=== PATIENT | male | born 1960 | race Caucasian/White ===

== ENCOUNTER 2017-05-08 10:36 | Inpatient (IN) | payer SELFPAY ==
[~2017-05-08] VITALS: Ht 182.9 cm; Wt 68.2 kg
[2017-05-08] VITALS (16 sets, daily range): BP systolic 88–182; BP diastolic 56–96; PULSE 84–98; RESP 16–28; TEMP 97–98.1; O2SAT 94–99
[2017-05-08] MEDS ORDERED: SODIUM CHLOR 0.9% 1000 ML INJ 1,000 ML IV ONE ×2 (10:43→12:00)
[2017-05-08] MEDS ORDERED: SODIUM CHLORIDE 0.9% FLUSH 10 ML FLUSH IVF PRN (10:45)
[2017-05-08 10:51] LABS: BLOOD GAS VENOUS BASE EXCESS -4.1 mmol/L (-2-2); BLOOD GAS VENOUS HCO3 18 mmol/L (22-26); BLOOD GAS VENOUS O2 CONTENT 14.6 Vol % (9.0-17.0); BLOOD GAS VENOUS O2 HGB SAT 89 % (70-76); BLOOD GAS VENOUS PCO2 22 mmHg (44-48); BLOOD GAS VENOUS PO2 54 mmHg (35-40); BLOOD GAS VENOUS pH 7.54 (7.360-7.400); CRITICAL VALUE YES; FIO2 21 %; TEMP CORR TO 98.6
[2017-05-08 10:52] LABS: DRAW SITE IV; STAT YES
[2017-05-08 11:01] LABS: AUTOMATED NEUTROPHIL # 19.6 TH/MM3 (1.8-7.7); BASOPHIL # 0.1 TH/MM3 (0-0.2); BASOPHIL % 0.3 % (0.0-2.0); HEMATOCRIT 40.9 % (39.0-51.0); HEMO FLAGS DIFF FINAL; LYMPH % 3.6 % (9.0-44.0); LYMPHOCYTE # 0.8 TH/MM3 (1.0-4.8); MEAN CELL VOLUME 93.9 FL (80.0-100.0); MEAN CORPUSCULAR HEMOGLOBIN 28.1 PG (27.0-34.0); MONO % 5.5 % (0.0-8.0); NEUT % 90.6 % (16.0-70.0); PLATELET COUNT 461 TH/MM3 (150-450); RED BLOOD COUNT 4.35 MIL/MM3 (4.50-5.90); RED CELL DISTRIBUTION WIDTH 13.6 % (11.6-17.2); WHITE BLOOD COUNT 21.6 TH/MM3 (4.0-11.0)
[2017-05-08 11:11] LABS: BLOOD, URINE NEG (NEG); COMMENT (UR) CULTURE INDICATED; CULTURE IF INDICATED CULTURE INDICATED; GLUCOSE,URINE 1000 mg/dL (NEG); KETONE, URINE NEG (NEG); NITRITE,URINE NEG (NEG); PH, URINE 5.5 (5.0-8.5); SQUAMOUS EPITHELIAL CELL URINE <1 /hpf (0-5)
[2017-05-08 11:12] LABS: URINE COLOR STRAW (YELLW/STRAW)
[2017-05-08] MEDS ORDERED: INSULIN HUMAN REGULAR 1,000 UNITS/10 ML VIAL SQ ONE (11:15)
[2017-05-08] MEDS ORDERED: PIPERACIL-TAZO 4.5 GM PREMIX 100 ML IV ONE (11:15)
[2017-05-08] MEDS ORDERED: VANCOMYCIN INJ 1,000 MG in SODIUM CHLOR 0.9% 250 ML INJ 250 ML IV ONE (11:15)
[2017-05-08] MEDS ORDERED: METF850T PO (12:00)
--- NOTE | 2017-05-08 12:00 | RADRPT ---
EXAM DATE/TIME: 05/08/2017 11:18 [place] COMPARISON: No previous studies available for comparison. INDICATIONS : Pain, redness and open sore right posterior lateral foot MEDICAL HISTORY : Diabetes mellitus type II. SURGICAL HISTORY : None. ENCOUNTER: Initial ACUITY: 3 days PAIN SCORE: 8/10 LOCATION: Right Foot FINDINGS: Two view examination of the right foot demonstrates no dislocation, or fracture. The calcaneus is in tact. Bony mineralization is normal. CONCLUSION: 1. Soft tissue swelling lateral foot near the fifth MTP. No acute bony abnormality. No radiopaque for eign body. Francisco Grider MD on May 08, 2017 at 11:57 Board Certified Radiologist. This report was verified electronically.
[2017-05-08 12:04] LABS: ALKALINE PHOSPHATASE 161 U/L (45-117); ALT (GPT) 17 U/L (12-78); ANION GAP 18 MEQ/L (5-15); AST (GOT) 6 U/L (15-37); BETA-HYDROXYBUTYRATE 1.26 MMOL/L (0.00-0.39); BICARBONATE 18.6 MEQ/L (21.0-32.0); BLOOD UREA NITROGEN 40 MG/DL (7-18); CHLORIDE 78 MEQ/L (98-107); GLOMERULAR FILTRATION RATE 28 ML/MIN (>89); MAGNESIUM 2.4 MG/DL (1.5-2.5); POTASSIUM 4.3 MEQ/L (3.5-5.1); TOTAL BILIRUBIN ADULT 0.3 MG/DL (0.2-1.0)
[2017-05-08 12:05] LABS: SODIUM (NA) 115 MEQ/L (136-145)
--- NOTE | 2017-05-08 12:29 | PD ---
HPI Chief Complaint: Diabetic Time Seen by Provider: 10:40 Travel History International Travel<30 days: No Contact w/Intl Traveler<30days: No Traveled to known affect area: No History of Present Illness HPI 56-year-old male came to the emergency room with history of altered mental status. The found him confused and called EMS. Patient has history of diabetes and has been noncompliant with his medications. Medics arrived and checked his sugar their meter read more than 500 since its the maximum read. Patient was talking but did not make much sense. He has a right foot infection that as per the paramedics has been there for few weeks. He was hypertensive when he first arrived. Patient was given 500 ML's of normal saline on route by EMS. Patient was hypertensive upon arrival. He is not a reliable historian at this point. History was mostly obtained by EMS. [facility] Past Medical History Narrative Medical List of his past medical, surgical, social and family history is reviewed from the nursing note. Medical History: Unable to Obtain Diabetes: Yes Patient Takes Glucophage: Yes Diminished Hearing: No Kidney Stones: Yes Past Surgical History Surgical History: Unable to Obtain Social History Alcohol Use: No Tobacco Use: Yes Substance Use: No Allergies-Medications (Allergen,Severity, Reaction): Coded Allergies: No Known Allergies (Unverified , 05/08/17) Comments No known drug allergies. Reported Meds & Prescriptions Reported Meds & Active Scripts Active Reported Metformin (Metformin HCl) 850 Mg Tab 850 Mg PO BIDPC With meals Narrative Medication List of his home medications reviewed from the nursing note. Review of Systems Except as stated in HPI: all other systems reviewed are Neg Physical Exam Narrative GENERAL: Confused, maintaining his airway, mild distress SKIN: Focused skin assessment warm/dry. Right foot dorsally on the lateral aspect is erythematous with a couple skin disruptions. The redness measures 5 x 7 cm. No discharge. There is no obvious deep ulceration. No crepitus HEAD: Atraumatic. Normocephalic. EYES: Pupils equal and round. No scleral icterus. No injection or drainage. ENT: No nasal bleeding or discharge. Mucous membranes pink and moist. NECK: Trachea midline. No JVD. CARDIOVASCULAR: Regular rate and rhythm. No murmur appreciated. RESPIRATORY: No accessory muscle use. Clear to auscultation. Breath sounds equal bilaterally. GASTROINTESTINAL: Abdomen soft, non-tender, nondistended. Hepatic and splenic margins not palpable. MUSCULOSKELETAL: No obvious deformities. No clubbing. No cyanosis. No edema. NEUROLOGICAL: GCS of 14, confused. No obvious cranial nerve deficits. Motor grossly within normal limits. Normal speech. PSYCHIATRIC: Appropriate mood and affect; insight and judgment normal. Data Data Last Documented VS Vital Signs Date Time Temp Pulse Resp B/P (MAP) Pulse Ox O2 Delivery O2 Flow Rate FiO2 05/08/17 11:35 85 24 169/73 (105) 97 Room Air 05/08/17 10:37 97.0 Orders Orders Complete Blood Count With Diff (05/08/17 10:43) Comprehensive Metabolic Panel (05/08/17 10:43) Magnesium (Mg) (05/08/17 10:43) Beta Hydroxybutyrate (Acetone) (05/08/17 10:43) Lactic Acid (05/08/17 10:43) Urinalysis - C+S If Indicated (05/08/17 10:43) Blood Culture (05/08/17 10:43) Blood Gas Venous (Vbg) (05/08/17 10:43) Blood Glucose (05/08/17 10:43) Blood Glucose (05/08/17 11:43) Ecg Monitoring (05/08/17 10:43) Iv Access Insert/Monitor (05/08/17 10:43) Oximetry (05/08/17 10:43) NPO (05/08/17 10:43) Sodium Chlor 0.9% 1000 Ml Inj (Ns 1000 M (05/08/17 10:43) Sodium Chloride 0.9% Flush (Ns Flush) (05/08/17 10:45) Troponin I (05/08/17 10:43) Urine Culture (05/08/17 10:50) Insulin Human Regular Inj (Novolin R Inj (05/08/17 11:15) Piperacil-Tazo 4.5 Gm Premix (Zosyn 4.5 (05/08/17 11:15) Vancomycin Inj (Vancomycin Inj) (05/08/17 11:15) Foot, Limited (2vws) (05/08/17 ) Sodium Chlor 0.9% 1000 Ml Inj (Ns 1000 M (05/08/17 12:00) Ct Brain W/O Iv Contrast(Rout) (05/08/17 ) Urinary Catheter Insert/Apply (05/08/17 12:11) Admit Order (Ed Use Only) (05/08/17 12:11) Labs Laboratory Tests Test 05/08/17 10:41 05/08/17 10:50 Blood Gas Puncture Site IV Blood Gas Patient Temperature 98.6 Venous Blood pH 7.54 Venous Blood Partial Pressure CO2 22 mmHg Venous Blood Partial Pressure O2 54 mmHg Venous Blood HCO3 18 mmol/L Venous Blood Oxygen Saturation 89 % Venous Blood Oxygen Content 14.6 Vol % Venous Blood Base Excess -4.1 mmol/L Blood Gas Inspired Oxygen 21 % White Blood Count 21.6 TH/MM3 Red Blood Count 4.35 MIL/MM3 Hemoglobin 12.3 GM/DL Hematocrit 40.9 % Mean Corpuscular Volume 93.9 FL Mean Corpuscular Hemoglobin 28.1 PG Mean Corpuscular Hemoglobin Concent 30.0 % Red Cell Distribution Width 13.6 % Platelet Count 461 TH/MM3 Mean Platelet Volume 8.1 FL Neutrophils (%) (Auto) 90.6 % Lymphocytes (%) (Auto) 3.6 % Monocytes (%) (Auto) 5.5 % Eosinophils (%) (Auto) 0.0 % Basophils (%) (Auto) 0.3 % Neutrophils # (Auto) 19.6 TH/MM3 Lymphocytes # (Auto) 0.8 TH/MM3 Monocytes # (Auto) 1.2 TH/MM3 Eosinophils # (Auto) 0.0 TH/MM3 Basophils # (Auto) 0.1 TH/MM3 CBC Comment DIFF FINAL Differential Comment Urine Color STRAW Urine Turbidity CLEAR Urine pH 5.5 Urine Specific [place] 1.025 Urine Protein NEG mg/dL Urine Glucose (UA) 1000 mg/dL Urine Ketones NEG mg/dL Urine Occult Blood NEG Urine Nitrite NEG Urine Bilirubin NEG Urine Urobilinogen LESS THAN 2.0 MG/DL Urine Leukocyte Esterase NEG Urine RBC 1 /hpf Urine WBC 10 /hpf Urine Squamous Epithelial Cells <1 /hpf Microscopic Urinalysis Comment CULTURE INDICATED Blood Urea Nitrogen 40 MG/DL Creatinine 2.38 MG/DL Random Glucose 1955 MG/DL Total Protein 8.3 GM/DL Albumin 2.8 GM/DL Calcium Level 9.6 MG/DL Magnesium Level 2.4 MG/DL Alkaline Phosphatase 161 U/L Aspartate Amino Transf (AST/SGOT) 6 U/L Alanine Aminotransferase (ALT/SGPT) 17 U/L Total Bilirubin 0.3 MG/DL Sodium Level 115 MEQ/L Potassium Level 4.3 MEQ/L Chloride Level 78 MEQ/L Carbon Dioxide Level 18.6 MEQ/L Anion Gap 18 MEQ/L Estimat Glomerular Filtration Rate 28 ML/MIN Lactic Acid Level 6.8 mmol/L Troponin I LESS THAN 0.02 NG/ML B-Hydroxybutyrate 1.26 MMOL/L MDM Medical Decision Making Medical Screen Exam Complete: Yes Emergency Medical Condition: Yes Medical Record Reviewed: Yes Differential Diagnosis Cellulitis, DKA, hyperglycemia Narrative Course 12:24 PM blood test results are back. Patient has astronomically high glucose level in blood. I initially had given him 10 units of insulin subcutaneous. I will order 10 units IV. Patient is getting total of 3 L of IV fluid bolus. I' ve ordered a CAT scan of his head as well. White count was 21,000 based on which I have started him on IV Zosyn and vancomycin. This patient should be in the ICU given these abnormal test results. I spoke with Dr. Ortiz who has accepted this patient in the unit. His came in and I discussed this with her. She says that patient is extremely difficult to manage at home. He is very noncompliant with his diabetes or the foot wound and infection. She thinks he is depressed and maybe trying to kill himself. All this has been mentioned to the fire technology instructor as well. Corrected sodium is 144 mEq. Critical Care Narrative Aggregate critical care time was 60 minutes. Time to perform other separately billable procedures was not included in the critical care time. My time did not include minutes spent treating any other patients simultaneously or on activities that did not directly contribute to the patient's treatment. The services I provided to this patient were to treat and/or prevent clinically significant deterioration that could result in: Hyperglycemia, HONK, sepsis, sepsis protocol I provided critical care services requiring my management, as noted below: Chart data review, documentation time, medication orders and management, vital sign assessments/reviewing monitor data, ordering and reviewing lab tests, ordering and interpreting/reviewing x-rays and diagnostic studies, care of the patient and discussion of the patient with the admitting physicians. Procedures EKG Prior to Arrival: No Physician Communication Physician Communication Dr. Ortiz Diagnosis Primary Impression: Hyperglycemic hyperosmolar nonketotic coma Additional Impressions: Hyponatremia Altered mental status Qualified Codes: R41.0 - Disorientation, unspecified Sepsis Qualified Codes: A41.9 - Sepsis, unspecified organism Renal failure Qualified Codes: N19 - Unspecified kidney failure Admitting Information Admitting Physician Requests: Xavier Garcia MD May 08, 2017 12:29
[2017-05-08] MEDS ORDERED: INSULIN HUMAN REGULAR 1,000 UNITS/10 ML VIAL IV PUSH ONE (12:30)
[2017-05-08] MEDS ORDERED: MISCELLANEOUS NURSING INFORMATION XX SCH ×2 (12:45→13:00)
[2017-05-08] MEDS ORDERED: SODIUM CHLORIDE 0.9% FLUSH 10 ML FLUSH IV FLUSH PRN (12:45)
[2017-05-08] MEDS ORDERED: Vancomycin Consult Pharmacy 1 EA OTHER SCH (12:45)
[2017-05-08] MEDS ORDERED: CHLORHEXIDINE GLUCONATE 2 % 1 PACK (2 CLOTHS) TOP PRN ×2 (12:45→13:00)
[2017-05-08] MEDS: SODIUM CHLOR 0.9% 1000 ML INJ 1,000 ML IV SCH ×2 (12:48→13:48)
[2017-05-08] MEDS ORDERED: PIPERACIL-TAZO 2.25 GM PREMIX 50 ML IV SCH (13:00)
[2017-05-08] MEDS ORDERED: POTASSIUM CHLOR 20 MEQ PREMIX 100 ML IV PRN ×5 (13:00→21:45)
[2017-05-08] MEDS ORDERED: SODIUM CHLOR 0.45% 1000 ML INJ 1,000 ML IV ONE (13:00)
[2017-05-08] MEDS ORDERED: SODIUM BICARBONATE 8.4% SOLN 50 MEQ/50 ML VIAL IV PRN ×2 (13:00)
[2017-05-08] MEDS ORDERED: SODIUM PHOSPHATE INJ 15 MMOL in SODIUM CHLORIDE 0.9% INJ 100 ML IV PRN (13:00)
--- NOTE | 2017-05-08 13:01 | HHI.HP ---
[facility] Service Critical Care Medicine Primary Care Physician No Primary Care Physician Admission Diagnosis HONK, sepsis Diagnosis: (1) Thrombocytosis Diagnosis: Principal (2) Normocytic anemia Diagnosis: Principal (3) Leukocytosis Diagnosis: Principal (4) Diabetic foot ulcer associated with type 2 diabetes mellitus, with fat layer exposed Diagnosis: Principal (5) Acute kidney injury Diagnosis: Principal (6) Hyperosmolar non-ketotic state in patient with type 2 diabetes mellitus Diagnosis: Principal (7) Dehydration with hyponatremia Diagnosis: Principal (8) Toxic metabolic encephalopathy Diagnosis: Principal (9) Septic shock Diagnosis: Principal Chief Complaint: altered mental status/high blood sugar Travel History International Travel<30 Days: No Contact w/Intl Traveler <30 Da: No Traveled to Known Affected Are: No Sepsis Criteria SIRS Criteria (2 or more): Heart rate over 90, RR > 20 or PaCO2 < 32 Sepsis Criteria (SIRS+source): Infect source susp/known Severe Sepsis (+one): Lactate >2 Septic Shock Criteria: Lactic acid >=4 Criteria Outcome: Meets septic shock criteria History of Present Illness 56-year-old male . Date of admission 05/08/2017. Past medical history diabetes mellitus with right lower extremity foot wound, ongoing tobaccoism, prior EtOH use and recurrent nephrolithiasis. This patient presents to the [facility] emergency room with subacute onset of altered mental status. The states for the past month he has been somewhat depressed and likely not taking his medications. For the past 2 days, she's become more authority. She gave him some Compazine for nausea without relief. Today, she called EMS. Initial blood sugar was greater than 500. Verified 1955 per laboratory. Patient has some 15 months/chronic history around 150, continue current for leukocytosis of 21,000. Patient has a diabetic foot ulceration on the right lower extremity involving the lateral to the fifth digit which he has been self treating by peeling skin. He was hypertensive when he first arrived. Patient was given 500 ML's of normal saline on route by EMS. Patient was hypertensive upon arrival. He is not a reliable historian at this point. History is obtained from at bedside Kristine Jolly Review of Systems ROS Limitations: Altered Mental Status Past Family Social History Allergies: Coded Allergies: No Known Allergies (Unverified , 05/08/17) Past Medical History Diabetes mellitus type 2 Tobaccoism History of nephrolithiasis Past Surgical History History of lithotripsy History of kidney stone extraction Reported Medications Metformin 850 mg by mouth twice a day Active Ordered Medications Reviewed in EMR Family History Positive for diabetes. Social History Quit alcohol 17 years ago. Positive tobacco one half pack per day. No IV drug use Physical Exam Vital Signs Vital Signs Date Time Temp Pulse Resp B/P (MAP) Pulse Ox O2 Delivery O2 Flow Rate FiO2 05/08/17 11:35 85 24 169/73 (105) 97 Room Air 05/08/17 10:46 98 Room Air 05/08/17 10:45 93 30 98 Room Air 05/08/17 10:37 97.0 98 26 182/96 (124) 99 Physical Exam GENERAL: 48-year-old male, critically ill currently resting in bed SKIN: Warm and dry. See musculoskeletal for right diabetic foot wound HEAD: Atraumatic. Normocephalic. EYES: Pupils equal and round about 3 mm bilaterally and reactive. No scleral icterus. No injection or drainage. ENT: No nasal bleeding or discharge. Mucous membranes pink and moist. Very poor dentition no thrush NECK: Trachea midline. No JVD. CARDIOVASCULAR: Regular rate and rhythm. S1, S2. No S4. Without murmur RESPIRATORY: Clear to auscultation. Breath sounds equal bilaterally. GASTROINTESTINAL: Abdomen soft, non-tender, almost scaphoid. Hepatic and splenic margins not palpable. MUSCULOSKELETAL: Extremities without significant peripheral edema. Lateral plantar aspect of right foot with erythema. 3 x 3 cm diabetic foot near the fifth mtp without drainage NEUROLOGICAL: Awake and alert. No obvious cranial nerve deficits. Motor grossly within normal limits. Five out of 5 muscle strength in the arms and legs. Normal speech. Does follow commands Laboratory Laboratory Tests Test 05/08/17 10:41 05/08/17 10:50 Blood Gas Puncture Site IV Blood Gas Patient Temperature 98.6 Venous Blood pH 7.54 Venous Blood Partial Pressure CO2 22 Venous Blood Partial Pressure O2 54 Venous Blood HCO3 18 Venous Blood Oxygen Saturation 89 Venous Blood Oxygen Content 14.6 Venous Blood Base Excess -4.1 Blood Gas Inspired Oxygen 21 White Blood Count 21.6 Red Blood Count 4.35 Hemoglobin 12.3 Hematocrit 40.9 Mean Corpuscular Volume 93.9 Mean Corpuscular Hemoglobin 28.1 Mean Corpuscular Hemoglobin Concent 30.0 Red Cell Distribution Width 13.6 Platelet Count 461 Mean Platelet Volume 8.1 Neutrophils (%) (Auto) 90.6 Lymphocytes (%) (Auto) 3.6 Monocytes (%) (Auto) 5.5 Eosinophils (%) (Auto) 0.0 Basophils (%) (Auto) 0.3 Neutrophils # (Auto) 19.6 Lymphocytes # (Auto) 0.8 Monocytes # (Auto) 1.2 Eosinophils # (Auto) 0.0 Basophils # (Auto) 0.1 CBC Comment DIFF FINAL Differential Comment Urine Color STRAW Urine Turbidity CLEAR Urine pH 5.5 Urine Specific [employer] 1.025 Urine Protein NEG Urine Glucose (UA) 1000 Urine Ketones NEG Urine Occult Blood NEG Urine Nitrite NEG Urine Bilirubin NEG Urine Urobilinogen LESS THAN 2.0 Urine Leukocyte Esterase NEG Urine RBC 1 Urine WBC 10 Urine Squamous Epithelial Cells <1 Microscopic Urinalysis Comment CULTURE INDICATED Blood Urea Nitrogen 40 Creatinine 2.38 Random Glucose 1955 Total Protein 8.3 Albumin 2.8 Calcium Level 9.6 Magnesium Level 2.4 Alkaline Phosphatase 161 Aspartate Amino Transf (AST/SGOT) 6 Alanine Aminotransferase (ALT/SGPT) 17 Total Bilirubin 0.3 Sodium Level 115 Potassium Level 4.3 Chloride Level 78 Carbon Dioxide Level 18.6 Anion Gap 18 Estimat Glomerular Filtration Rate 28 Lactic Acid Level 6.8 Troponin I LESS THAN 0.02 B-Hydroxybutyrate 1.26 Date/Time Source Procedure Growth Status 05/08/17 11:15 Blood Peripheral Aerobic Blood Culture Pending Received 05/08/17 11:15 Blood Peripheral Anaerobic Blood Culture Pending Received 05/08/17 10:50 Urine Clean Catch Urine Culture Pending Received Result Diagram: 05/08/17 1050 05/08/17 1050 Imaging Last Impressions Foot X-Ray 05/08/17 0000 Signed Impressions: Service Date/Time: April 11:18 - CONCLUSION: 1. Soft tissue swelling lateral foot near the fifth MTP. No acute bony abnormality. No radiopaque foreign body. Francisco Grider MD Caprini VTE Risk Assessment Caprini VTE Risk Assessment: Mod/High Risk (score >= 2) Caprini Risk Assessment Model Point Value = 1 Point Value = 2 Point Value = 3 Point Value = 5 Age 41-60 Minor surgery BMI > 25 kg/m2 Swollen legs Varicose veins or History of unexplained or recurrent spontaneous Oral contraceptives or hormone replacement Sepsis (< 1 month) Serious lung disease, including pneumonia (< 1 month) Abnormal pulmonary function Acute myocardial infarction Congestive heart failure (< 1 month) History of inflammatory bowel disease Medical patient at bed rest Age 61-74 Arthroscopic surgery Major open surgery (> 45 min) Laparoscopic surgery (> 45 min) Malignancy Confined to bed (> 72 hours) Immobilizing plaster cast Central venous access Age >= 75 History of VTE Family history of VTE Factor V Leiden Prothrombin [id number] Lupus anticoagulant Anticardiolipin antibodies Elevated serum homocysteine Heparin-induced thrombocytopenia Other congenital or acquired thrombophilia Stroke (< 1 month) Elective arthroplasty Hip, pelvis, or leg fracture Acute spinal cord injury (< 1 month) Prophylaxis Regimen Total Risk Factor Score Risk Level Prophylaxis Regimen 0-1 Low Early ambulation 2 Moderate Order ONE of the following: *Sequential Compression Device (SCD) *Heparin 5000 units SQ BID 3-4 Higher Order ONE of the following medications: *Heparin 5000 units SQ TID *Enoxaparin/Lovenox 40 mg SQ daily (WT < 150 kg, CrCl > 30 mL/min) *Enoxaparin/Lovenox 30 mg SQ daily (WT < 150 kg, CrCl > 10-29 mL/min) *Enoxaparin/Lovenox 30 mg SQ BID (WT < 150 kg, CrCl > 30 mL/min) AND/OR *Sequential Compression Device (SCD) 5 or more Highest Order ONE of the following medications: *Heparin 5000 units SQ TID (Preferred with Epidurals) *Enoxaparin/Lovenox 40 mg SQ daily (WT < 150 kg, CrCl > 30 mL/min) *Enoxaparin/Lovenox 30 mg SQ daily (WT < 150 kg, CrCl > 10-29 mL/min) *Enoxaparin/Lovenox 30 mg SQ BID (WT < 150 kg, CrCl > 30 mL/min) AND *Sequential Compression Device (SCD) Assessment and Plan Assessment and Plan Neuro/Psych: Acute delirium/toxic metabolic encephalopathy secondary to hyperglycemia Acetaminophen for fever Hydrocodone/acetaminophen and morphine for pain management Soft restraints if indicated for delirium CV: Hypertension Lactic acidosis Currently on one half normal saline at 200 cc an hour As needed hydralazine and Nitropaste with systolic blood pressure greater than 170 Serial lactates every 6 hours until cleared Initial troponin negative. EKG pending Resp: Ongoing tobaccoism Nasal cannula to maintain saturations greater than or equal to 92% Incentive spirometry while awake Follow up on chest x-ray Nicotine cessation will be encouraged. Nicotine patch if indicated/requested GI: Nausea/vomiting On ondansetron 4 mg every 6 hours when necessary Liver function tests within normal limits. Lipase pending Currently nothing by mouth Famotidine 10 mg IV twice a day for GI prophylaxis Docusate sodium/senna 1 tablet twice a day for bowel regimen : No indication for [place] catheter Endo: Hyperosmolar non-ketotic state in a type II diabetic Diabetes mellitus type 2 Patient will be placed on insulin drip at 0.02 units per kilogram per hour. Goal is to lower blood sugar around 75-100 mg/dL every hour. Every hour glucose Check hemoglobin A1c/lipid panel. Renal: Acute kidney injury History of nephrolithiasis Serial BMPs. Likely secondary to dehydration. Avoid nephrotoxic drugs If creatinine continues to rise, further workup including urine electrolytes and eosinophils and renal ultrasound Heme: Leukocytosis Normocytic anemia Thrombocytopenia Monitor CBC daily. Follow trends ID: Placed on piperacillin/tazobactam and vancomycin for diabetic foot Infectious disease consult X-ray revealed soft tissue swelling of the right fifth MTP MSK: Right diabetic foot ulcer Podiatry consult for recommendations possible debridement once stable FEN: Pseudohyponatremia secondary to hyperglycemia Hypochloremia Replace electrolytes as clinically indicated. Access - Utilize peripheral IV. Central line if indicated Prophylaxis - GI - pantoprazole - DVT - SCD/heparin subcutaneous Critical Care: The total critical care time was 35 minutes. Time to perform other separately billable procedures was not included in the critical care time. Code Status Full code Discussed Condition With Kristine Jolly. ER physician. Care plan discussed and all questions answered. Problem Qualifiers (1) Leukocytosis: Qualified Codes: D72.829 - Elevated white blood cell count, unspecified (2) Diabetic foot ulcer associated with type 2 diabetes mellitus, with fat layer exposed: Qualified Codes: E11.621 - Type 2 diabetes mellitus with foot ulcer; L97.512 - Non-pressure chronic ulcer of other part of right foot with fat layer exposed Isaac Ortiz MD May 08, 2017 13:01
[2017-05-08] MEDS ORDERED: hydrALAZINE HCL 20 MG/ML VIAL IV PUSH PRN (13:15)
[2017-05-08] MEDS ORDERED: INSULIN REGULAR (IV INFUSION) 100 UNITS in SODIUM CHLORIDE 0.9% INJ 99 ML IV SCH (14:00)
[2017-05-08] MEDS ORDERED: RESP: ALBUTEROL 2.5 MG/3 ML NEB (PRN) INH (14:00)
[2017-05-08] MEDS ORDERED: NITROGLYCERIN 2% OINT 1 GM PACKET TOPICAL PRN (14:00)
[2017-05-08] MEDS ORDERED: BISACODYL 10 MG SUPP RECTAL PRN (14:00)
[2017-05-08] MEDS ORDERED: LACTULOSE SYRUP 20 GM/30 ML CUP PO PRN (14:00)
--- NOTE | 2017-05-08 14:23 | PD.ID.CON ---
History of Present Illness Service ID Consult Requested By Dr Ortiz Reason for Consult R foot DFI Primary Care Physician No Primary Care Physician Diagnoses: History of Present Illness Pt is a very poor historian, all history fobtained from spouse who was @ b/s A 56 yo diabetic male, with long standing diabetes and non complinace for many yras: no f/u since 2007, intermittetnly takes his 's metformin ;( barriers to compliance: lack of insurance) presented to the hospital after the call 911 because his sugars 'were out of control' In fact his glucose on presentation was 1955 Pt was started on insulin gtt Pt also has a long standing (weeks) R platar ulcer @ 5 MT head area with worsening swelling and redness lately - in the last few days Pt lost tremendous amount of weight and is very withdrawn and appears depressed No fever on presentation but WBC of 21 K + ketones positive Lactic acidemis of 6.8 on presentation, improved with fluids and insulin gtt to 1.9 rapidly Review of Systems ROS Limitations: Uncooperative, Poor Historian Past Family Social History Allergies: Coded Allergies: No Known Allergies (Unverified , 05/08/17) Past Medical History Diabetes mellitus type 2, long standing non complicance Tobaccoism History of nephrolithiasis Past Surgical History History of lithotripsy History of kidney stone extraction Active Ordered Medications Medications where reviewed in EMR Antibiotics Include: madison olivares Family History Positive for diabetes. Social History Quit alcohol 17 years ago. Positive tobacco one half pack per day. No IV drug use , lives with his Physical Exam Vital Signs Vital Signs Date Time Temp Pulse Resp B/P (MAP) Pulse Ox O2 Delivery O2 Flow Rate FiO2 05/08/17 13:06 87 18 161/82 (108) 96 Room Air 05/08/17 12:35 97 28 162/79 (106) 99 Room Air 05/08/17 11:35 85 24 169/73 (105) 97 Room Air 05/08/17 10:46 98 Room Air 05/08/17 10:45 93 30 98 Room Air 05/08/17 10:37 97.0 98 26 182/96 (124) 99 Physical Exam CONSTITUTIONAL/GENERAL: This is a thin ill appearing middle aged patient, in no apparent distress. TUBES/LINES/DRAINS: SKIN: No jaundice, rashes, or lesions. . Skin temperature appropriate. Not diaphoretic. HEAD: Atraumatic. Normocephalic. EYES: Pupils equal and round and reactive. Extraocular motions intact. No scleral icterus. No injection or drainage. Fundi not examined. ENT: Hearing grossly normal. Nose without bleeding or purulent drainage. Oral mucosae dry without visible erythema, exudates, masses, or lesions. Poor dentition NECK: Trachea midline. Supple, nontender. CARDIOVASCULAR: Regular rate and rhythm without murmurs, gallops, or rubs. No JVD. Peripheral pulses symmetric. Good pedal pulses perifery appears well perfused RESPIRATORY/CHEST: Symmetric, unlabored respirations. Clear to auscultation. Breath sounds equal bilaterally. No wheezes, rales, or rhonchi. GASTROINTESTINAL: Abdomen soft, non-tender, nondistended. No hepato-splenomegaly , or palpable masses. No guarding. Bowel sounds present. GENITOURINARY: Without palpable bladder distension. Knox catheter in place. MUSCULOSKELETAL: Extremities without clubbing, cyanosis, or edema.\No mottling or clubbing. R foot with prominent edema, illl defined erythema over 5 Th MT head a nd spreding along lateral aspect of the foot Plantar ulcer with eschar at 5 TH MT head projection LYMPHATICS: No palpable cervical or supraclavicular adenopathy. + R sided inguinal lymphadenopathy NEUROLOGICAL:Lethargic, but arousable Motor and sensory grossly within normal limits. Follows commands. Clear speech. Moves all extremities. PSYCHIATRIC: withdrawn; irritable Laboratory Laboratory Tests Test 05/08/17 10:41 05/08/17 10:50 Blood Gas Puncture Site IV Blood Gas Patient Temperature 98.6 Venous Blood pH 7.54 Venous Blood Partial Pressure CO2 22 Venous Blood Partial Pressure O2 54 Venous Blood HCO3 18 Venous Blood Oxygen Saturation 89 Venous Blood Oxygen Content 14.6 Venous Blood Base Excess -4.1 Blood Gas Inspired Oxygen 21 White Blood Count 21.6 Red Blood Count 4.35 Hemoglobin 12.3 Hematocrit 40.9 Mean Corpuscular Volume 93.9 Mean Corpuscular Hemoglobin 28.1 Mean Corpuscular Hemoglobin Concent 30.0 Red Cell Distribution Width 13.6 Platelet Count 461 Mean Platelet Volume 8.1 Neutrophils (%) (Auto) 90.6 Lymphocytes (%) (Auto) 3.6 Monocytes (%) (Auto) 5.5 Eosinophils (%) (Auto) 0.0 Basophils (%) (Auto) 0.3 Neutrophils # (Auto) 19.6 Lymphocytes # (Auto) 0.8 Monocytes # (Auto) 1.2 Eosinophils # (Auto) 0.0 Basophils # (Auto) 0.1 CBC Comment DIFF FINAL Differential Comment Urine Color STRAW Urine Turbidity CLEAR Urine pH 5.5 Urine Specific [place] 1.025 Urine Protein NEG Urine Glucose (UA) 1000 Urine Ketones NEG Urine Occult Blood NEG Urine Nitrite NEG Urine Bilirubin NEG Urine Urobilinogen LESS THAN 2.0 Urine Leukocyte Esterase NEG Urine RBC 1 Urine WBC 10 Urine Squamous Epithelial Cells <1 Microscopic Urinalysis Comment CULTURE INDICATED Blood Urea Nitrogen 40 Creatinine 2.38 Random Glucose 1957 Total Protein 8.3 Albumin 2.8 Calcium Level 9.6 Magnesium Level 2.4 Alkaline Phosphatase 161 Aspartate Amino Transf (AST/SGOT) 6 Alanine Aminotransferase (ALT/SGPT) 17 Total Bilirubin 0.3 Sodium Level 115 Potassium Level 4.3 Chloride Level 78 Carbon Dioxide Level 18.6 Anion Gap 18 Estimat Glomerular Filtration Rate 28 Lactic Acid Level 6.8 Troponin I LESS THAN 0.02 B-Hydroxybutyrate 1.26 Date/Time Source Procedure Growth Status 05/08/17 11:15 Blood Peripheral Aerobic Blood Culture Pending Received 05/08/17 11:15 Blood Peripheral Anaerobic Blood Culture Pending Received 05/08/17 10:50 Urine Clean Catch Urine Culture Pending Received Result Diagram: 05/08/17 1050 05/08/17 1050 Imaging Last Impressions Foot X-Ray 05/08/17 0000 Signed Impressions: Service Date/Time: April 11:18 - CONCLUSION: 1. Soft tissue swelling lateral foot near the fifth MTP. No acute bony abnormality. No radiopaque foreign body. Francisco Grider MD Assessment and Plan Assessment and Plan Extreme hyperglycemia and DKA -poorly controlled DM R foot DFI, 5th MT head - R foot MRI - podiatry consult - fu clx - cont broad spectrum abx for now Marla Pritchard MD May 08, 2017 14:23
--- NOTE | 2017-05-08 14:31 | RADRPT ---
EXAM DATE/TIME: 05/08/2017 14:16 [facility] COMPARISON: No previous studies available for comparison. INDICATIONS : Confusion with alerted mental status. RADIATION DOSE: 34.18 CTDIvol (mGy) MEDICAL HISTORY : Diabetes mellitus type 2. Renal calculi. SURGICAL HISTORY : None. ENCOUNTER: Initial ACUITY: 1 day PAIN SCALE: 5/10 LOCATION: Bilateral cranial TECHNIQUE: Multiple contiguous axial images were obtained of the head. Using automated exposure control and adj ustment of the mA and/or kV according to patient size, radiation dose was kept as low as reasonably a chievable to obtain optimal diagnostic quality images. DICOM format image data is available electro nically for review and comparison. FINDINGS: CEREBRUM: The ventricles are normal for age. No evidence of midline shift, mass lesion, hemorrhage or acute in farction. No extra-axial fluid collections are seen. POSTERIOR FOSSA: The cerebellum and brainstem are intact. The 4th ventricle is midline. The cerebellopontine angle i s unremarkable. EXTRACRANIAL: The visualized portion of the orbits is intact. SKULL: The calvaria is intact. No evidence of skull fracture. CONCLUSION: 1. No acute intracranial abnormality is identified. Raghavendra Lim MD on May 08, 2017 at 14:27 Board Certified Radiologist. This report was verified electronically.
[2017-05-08] MEDS ORDERED: VANCOMYCIN 500 MG/NS 100 ML IV ONE ×2 (15:00)
[2017-05-08] MEDS: PIPERACIL-TAZO 2.25 GM PREMIX 50 ML IV SCH (17:00)
[2017-05-08] MEDS: DEXT 5%-NACL 0.9% 1000 ML INJ 1,000 ML IV SCH ×2 (17:48→22:48)
[2017-05-08 19:54] LABS: MAGNESIUM 2.4 MG/DL (1.5-2.5); POTASSIUM 3.3 MEQ/L (3.5-5.1)
[2017-05-08] MEDS: DOCUSATE SODIUM 50 MG/SENNA 8.6 MG TAB PO SCH (21:00)
[2017-05-08] MEDS ORDERED: SENNOSIDES 8.6 MG TAB PO PRN (21:00)
[2017-05-08] MEDS ORDERED: FAMOTIDINE 20 MG/2 ML VIAL IV PUSH SCH (21:00)
--- NOTE | 2017-05-08 21:05 | MB ---
cc: LORRI ACEVES DPM DATE OF CONSULTATION 05/08/17 CHIEF COMPLAINT Right foot ulceration HISTORY OF PRESENT ILLNESS Mr. Braxton is a 56-year-old male patient who was admitted with a blood sugar of 1957. He states that he has had the wound on his right foot for over a year but could not give me much more information. He denies any pain at this time. The patient is very shaky and speech is very erratic but he is pleasant. PAST MEDICAL HISTORY 1. Diabetes mellitus 2. History of nephrolithiasis PAST SURGICAL HISTORY Lithotripsy and kidney stone extraction MEDICATIONS Please see list. ALLERGIES NO KNOWN DRUG ALLERGIES. SOCIAL HISTORY The patient quit drinking 17 years ago, smokes half a pack of cigarettes a day. Denies any IV drug abuse. Lives at home with his . VITAL SIGNS: Temperature is 98.0 which is also T-max, respiratory rate is 16, blood pressure 130/74, pulse ox 95% O2 at room air. LABORATORY DATA White count is 21.6, hemoglobin 12.3, hematocrit 40.9, platelets 461. Sodium 115, potassium 4.3, chloride 78, carbon dioxide 18.6, BUN 40, creatinine 2.38, random glucose 990. Blood cultures pending. Urine cultures pending. IMAGING STUDIES X-ray was negative for any gas in the soft tissue or signs of cortical erosion at the wound site. PHYSICAL EXAMINATION On physical exam, the patient has bilateral palpable PT and DP pulses. Cap fill time of less than 3 seconds. Gross sensation is diminished but somewhat intact. The left foot is unremarkable. The right foot has heavy callusing to the right sub met five with a small fluctuant area on the dorsal fifth metatarsal. There is some erythema surrounding these two areas with no streaking. No drainage and no pain. ASSESSMENT/PLAN 1. Cellulitis right foot with likely underlying ulceration. The patient would benefit from a bedside debridement. However, at this time he is very shaky and very unstable. I will try to reevaluate in a day or two once his health has improved and hopefully be able to address it at bedside. If not once the patient is downgraded from the ICU, he can be treated in the operating room. The wound is stable at this time. 2. No dressing needed at this time. 3. IV antibiotics per Infectious Disease. 4. We will monitor the patient closely while in-house Thank you for this consultation. Lorri SONI /6:18 PM /8:47 PM
[2017-05-08] MEDS: SODIUM CHLORIDE 0.9% FLUSH 10 ML FLUSH IV FLUSH SCH (21:39)
[2017-05-08] MEDS: HEPARIN SODIUM - SQ 10,000 UNITS/ML VIAL SQ SCH (21:40)
[2017-05-08] MEDS ORDERED: POTASSIUM PHOSPHATE INJ 30 MMOL in SODIUM CHLOR 0.9% 250 ML INJ 250 ML IV PRN (21:45)
[2017-05-08] MEDS ORDERED: MAGNESIUM OXIDE 400 MG TAB PO PRN (21:45)
[2017-05-08] MEDS ORDERED: SODIUM PHOSPHATE INJ 30 MMOL in SODIUM CHLOR 0.9% 250 ML INJ 240 ML IV PRN (21:45)
[2017-05-08] MEDS ORDERED: POTASSIUM PHOSPHATE MONOBASIC 500 MG TAB PO/TUBE PRN (21:45)
[2017-05-08] MEDS ORDERED: MAGNESIUM SULFATE INJ 4 GM in SODIUM CHLORIDE 0.9% INJ 92 ML IV PRN (21:45)
[2017-05-08] MEDS ORDERED: POTASSIUM CHLOR 40 MEQ PREMIX 100 ML IV PRN ×2 (21:45)
[2017-05-08] MEDS ORDERED: MAGNESIUM SULFATE INJ 2 GM in SODIUM CHLORIDE 0.9% INJ 96 ML IV PRN (21:45)
[2017-05-08] MEDS ORDERED: POTASSIUM PHOSPHATE MONOBASIC 500 MG TAB PO PRN (21:45)
[2017-05-08] MEDS: POTASSIUM CHLOR 20 MEQ PREMIX 100 ML IV PRN (22:47)
[2017-05-09] VITALS (14 sets, daily range): BP systolic 110–135; BP diastolic 64–75; PULSE 88–98; RESP 15–26; TEMP 98.2–100.4; O2SAT 95–100
[2017-05-09] MEDS: PIPERACIL-TAZO 2.25 GM PREMIX 50 ML IV SCH ×5 (00:02→23:42)
[2017-05-09] MEDS: POTASSIUM CHLOR 20 MEQ PREMIX 100 ML IV PRN (01:01)
[2017-05-09] MEDS: DEXT 5%-NACL 0.9% 1000 ML INJ 1,000 ML IV SCH ×2 (03:48→08:19)
[2017-05-09] MEDS: CHLORHEXIDINE GLUCONATE 2 % 1 PACK (2 CLOTHS) TOP SCH (04:00)
[2017-05-09] MEDS ORDERED: CHLORHEXIDINE GLUCONATE 2 % 1 PACK (2 CLOTHS) TOP SCH (04:00)
[2017-05-09 06:02] LABS: ANION GAP 11 MEQ/L (5-15); BETA-HYDROXYBUTYRATE 2.96 MMOL/L (0.00-0.39); BICARBONATE 23.3 MEQ/L (21.0-32.0); BLOOD UREA NITROGEN 27 MG/DL (7-18); CHLORIDE 114 MEQ/L (98-107); GLOMERULAR FILTRATION RATE 59 ML/MIN (>89); HDL CHOLESTEROL 34.8 MG/DL (40.0-60.0); LDL CHOLESTEROL 59 MG/DL (0-99); MAGNESIUM 2.6 MG/DL (1.5-2.5); POTASSIUM 5.6 MEQ/L (3.5-5.1); SODIUM (NA) 148 MEQ/L (136-145)
[2017-05-09 06:21] LABS: MEAN CORPUSCULAR HEMOGLOBIN 28.1 PG (27.0-34.0); MEAN CORPUSCULAR HGB CONC 34.2 % (32.0-36.0); PLATELET COUNT 436 TH/MM3 (150-450); RED BLOOD COUNT 4.14 MIL/MM3 (4.50-5.90); RED CELL DISTRIBUTION WIDTH 12.8 % (11.6-17.2); REVIEW FLAG FINAL
[2017-05-09 06:38] LABS: BICARBONATE 23.7 MEQ/L (21.0-32.0); MAGNESIUM 2.6 MG/DL (1.5-2.5); POTASSIUM 5.1 MEQ/L (3.5-5.1)
--- NOTE | 2017-05-09 07:56 | HHI.CCPN ---
Subjective Remarks/Hospital Course 56-year-old male . Date of admission 05/08/2017. Past medical history diabetes mellitus with right lower extremity foot wound, ongoing tobaccoism, prior EtOH use and recurrent nephrolithiasis. This patient presents to the [facility] emergency room with subacute onset of altered mental status. The states for the past month he has been somewhat depressed and likely not taking his medications. For the past 2 days, she's become more authority. She gave him some Compazine for nausea without relief. Today, she called EMS. Initial blood sugar was greater than 500. Verified 1954 per laboratory. Patient has some 15 months/chronic history around 150, continue current for leukocytosis of 21,000. Patient has a diabetic foot ulceration on the right lower extremity involving the lateral to the fifth digit which he has been self treating by peeling skin. He was hypertensive when he first arrived. Patient was given 500 ML's of normal saline on route by EMS. Patient was hypertensive upon arrival. He is not a reliable historian at this point. History is obtained from at bedside Kristine Jolly Subjective 05/09 - mentation much improved today. CT brain revealed no acute intracranial findings. Insulin drip down to 3.3 units an hour. Elevate asked him likely secondary to starvation and patient is type II diabetic with exacerbation secondary to underlying infection. White blood cell count stable. Requesting diet. Objective Vital Signs Date Time Temp Pulse Resp B/P (MAP) Pulse Ox O2 Delivery O2 Flow Rate FiO2 05/09/17 06:00 95 05/09/17 04:00 98.6 20 110/64 (79) 96 05/08/17 15:40 21 05/08/17 14:00 Room Air Intake and Output 05/09/17 05/09/17 05/10/17 08:00 16:00 00:00 Intake Total 710.4 ml Output Total 775 ml Balance -64.6 ml Result Diagram: 05/09/17 0545 05/09/17 0545 Other Results Microbiology Date/Time Source Procedure Growth Status 05/08/17 11:15 Blood Peripheral Aerobic Blood Culture Pending Received 05/08/17 11:15 Blood Peripheral Anaerobic Blood Culture Pending Received 05/08/17 10:50 Urine Clean Catch Urine Culture Pending Received Imaging Last [address] 05/08/17 0000 Signed Impressions: Service Date/Time: April 14:16 - CONCLUSION: 1. No acute intracranial abnormality is identified. Raghavendra Lim MD Foot X-Ray 05/08/17 0000 Signed Impressions: Service Date/Time: April 11:18 - CONCLUSION: 1. Soft tissue swelling lateral foot near the fifth MTP. No acute bony abnormality. No radiopaque foreign body. Francisco Grider MD Objective Remarks GENERAL: 48-year-old male, critically ill currently resting in bed SKIN: Warm and dry. See musculoskeletal for right diabetic foot wound HEAD: Atraumatic. Normocephalic. EYES: Pupils equal and round about 3 mm bilaterally and reactive. No scleral icterus. No injection or drainage. ENT: No nasal bleeding or discharge. Mucous membranes pink and moist. Very poor dentition no thrush NECK: Trachea midline. No JVD. CARDIOVASCULAR: Regular rate and rhythm. S1, S2. No S4. Without murmur RESPIRATORY: Clear to auscultation. Breath sounds equal bilaterally. GASTROINTESTINAL: Abdomen soft, non-tender, almost scaphoid. Hepatic and splenic margins not palpable. MUSCULOSKELETAL: Extremities without significant peripheral edema. Lateral plantar aspect of right foot with erythema. 3 x 3 cm diabetic foot near the fifth mtp without drainage NEUROLOGICAL: Awake and alert. No obvious cranial nerve deficits. Motor grossly within normal limits. Five out of 5 muscle strength in the arms and legs. Normal speech. Does follow commands A/P Assessment and Plan Neuro/Psych: Acute delirium/toxic metabolic encephalopathy secondary to hyperglycemia - resolving Acetaminophen for fever Hydrocodone/acetaminophen and morphine for pain management Soft restraints if indicated for delirium CT brain 05/08 revealed no acute cranial findings CV: Hypertension Lactic acidosis - resolved Currently on one half normal saline at 200 cc an hour As needed hydralazine and Nitropaste with systolic blood pressure greater than 170 Serial lactates every 6 hours until cleared Initial troponin negative. Resp: Ongoing tobaccoism Nasal cannula to maintain saturations greater than or equal to 92% Incentive spirometry while awake Nicotine cessation will be encouraged. Nicotine patch if indicated/requested GI: Nausea/vomiting On ondansetron 4 mg every 6 hours when necessary Liver function tests within normal limits. Lipase pending Currently nothing by mouth. Advance to ADA diet see orders Famotidine 20 mg by mouth twice a day for GI prophylaxis Docusate sodium/senna 1 tablet twice a day for bowel regimen : No indication for Knox catheter Endo: Hyperosmolar non-ketotic state in a type II diabetic Diabetes mellitus type 2 Insulin drip currently at 3.3 units an hour. Will transition to insulin detemir 10 units twice a day with sliding scale insulin see orders Every hour glucose to be transitioned before meals/at bedtime and O300 Check hemoglobin A1c/lipid panel. Elevated asked him likely secondary to starvation more than ketoacidosis Renal: Acute kidney injury - resolved History of nephrolithiasis Serial BMPs. Likely secondary to dehydration. Avoid nephrotoxic drugs Creatinine currently normalized Heme: Leukocytosis Normocytic anemia Thrombocytopenia Monitor CBC daily. Follow trends ID: Placed on piperacillin/tazobactam and vancomycin for diabetic foot Infectious disease consult X-ray revealed soft tissue swelling of the right fifth MTP MRI foot pending MSK: Right diabetic foot ulcer Podiatry consult for recommendations possible debridement in origin 1-2 days once stable FEN: Hypernatremia Hyper-magnesium Hyperphosphatemia Replace electrolytes as clinically indicated. Access - Utilize peripheral IV. Central line if indicated Prophylaxis - GI -famotidine - DVT - SCD/heparin subcutaneous Level II follow-up. Patient is stable from a critical care medicine standpoint. Assign care to hospitalist in a.m. 05/10. Isaac Ortiz MD May 09, 2017 07:55
[2017-05-09] MEDS ORDERED: DC previous DKA orders (HMC 1917) ONE (08:00)
[2017-05-09] MEDS ORDERED: DEXTROSE 50% IN WATER 50 ML VIAL(D50) IV PUSH PRN (08:00)
[2017-05-09] MEDS ORDERED: GLUCAGON 1 MG/ML VIAL OTHER PRN (08:00)
[2017-05-09] MEDS ORDERED: DC Insulin drip 2 hrs post basal insulin dose ONE (08:00)
[2017-05-09] MEDS ORDERED: INSULIN NovoLIN REGULAR SUPPLEMENTAL SCALE SQ SCH (08:00)
[2017-05-09] MEDS: HEPARIN SODIUM - SQ 10,000 UNITS/ML VIAL SQ SCH ×2 (08:44→20:54)
[2017-05-09] MEDS: INSULIN DETEMIR 100 UNITS/ML VIAL SQ SCH ×2 (08:49→20:54)
[2017-05-09] MEDS: DOCUSATE SODIUM 50 MG/SENNA 8.6 MG TAB PO SCH ×2 (08:50→20:53)
[2017-05-09] MEDS: FAMOTIDINE 20 MG TAB PO SCH ×2 (09:00→20:53)
[2017-05-09 11:39] LABS: BICARBONATE 25.2 MEQ/L (21.0-32.0); MAGNESIUM 2.6 MG/DL (1.5-2.5); POTASSIUM 4.3 MEQ/L (3.5-5.1)
[2017-05-09] MEDS: INSULIN NovoLIN REGULAR SUPPLEMENTAL SCALE SQ SCH ×3 (12:00→20:56)
[2017-05-09] MEDS: SODIUM CHLORIDE 0.9% FLUSH 10 ML FLUSH IV FLUSH SCH ×2 (12:05→20:53)
[2017-05-09] MEDS ORDERED: GADODIAMIDE PF 287 MG/ML 5 ML VIAL (for RAD MRI) IV PUSH ONE (16:02)
--- NOTE | 2017-05-09 16:16 | HHI.PR ---
Addendum to Inpatient Note Additional Information pt seen today full note to follow Marla Pritchard MD May 09, 2017 16:16
--- NOTE | 2017-05-09 16:31 | RADRPT ---
EXAM DATE/TIME: 05/09/2017 15:29 [facility] COMPARISON: FOOT RIGHT LIMITED (2VWS), May 08, 2017, 11:18. INDICATIONS : Osteomyelitis. Wound 5th metatarsal phalangeal joint CONTRAST: 14 cc Omniscan (gadodiamide) IV MEDICAL HISTORY : Diabetes mellitus type 2. SURGICAL HISTORY : None. ENCOUNTER: Initial ACUITY: 1 day PAIN SCORE: 0/10 LOCATION: Right foot TECHNIQUE: Multiplanar, multisequence MRI examination was performed without contrast and after th e intravenous administration of gadolinium. FINDINGS: There is soft tissue swelling adjacent to the fifth metatarsal head distally particular ly along the ventral external aspect. There is edema in the head of the fifth metatarsal increased si gnal intensity or brightness on T2-weighted imaging and within the cortex. The cortex enhances with c ontrast administration and is suspicious for edema possible osteomyelitis CONCLUSION: Abnormal head of the fifth metatarsal suggestive of edema and cortical enhancement as sociated with soft tissue swelling. Early osteomyelitis suspect. Jordan Tovar MD on May 09, 2017 at 16:24 Board Certified Radiologist. This report was verified electronically.
[2017-05-09] MEDS: VANCOMYCIN 1,500 MG/NS 500 ML IV SCH ×2 (16:36)
--- NOTE | 2017-05-09 19:11 | HHI.IDPN ---
Subjective Subjective Remarks Much better now fully awake and alert + low grade fever Blood sugar < 400 Growing MSSA in blood Antibiotics zosyn marshall Allergies: Coded Allergies: No Known Allergies (Unverified , 05/08/17) Objective . Vital Signs Date Time Temp Pulse Resp B/P (MAP) Pulse Ox O2 Delivery O2 Flow Rate FiO2 05/09/17 18:02 98 05/09/17 18:00 98 05/09/17 16:00 95 05/09/17 16:00 99.5 98 16 135/74 (94) 100 05/09/17 14:00 93 05/09/17 12:00 98.2 98 16 124/72 (89) 99 05/09/17 12:00 95 05/09/17 10:00 95 05/09/17 08:00 95 05/09/17 08:00 98.8 96 16 129/75 (93) 95 05/09/17 06:00 95 05/09/17 04:00 98.6 93 20 110/64 (79) 96 05/09/17 04:00 91 05/09/17 02:00 93 05/09/17 00:00 92 05/09/17 00:00 98.3 92 15 116/66 (83) 96 05/08/17 22:00 90 05/08/17 22:00 91 21 126/73 (90) 94 05/08/17 21:00 98.1 87 19 88/62 (71) 94 05/08/17 20:16 99 05/08/17 20:00 98.1 88 16 135/66 (89) 98 05/08/17 20:00 93 05/09/17 05/09/17 05/10/17 15:00 23:00 07:00 Intake Total 1344.9 ml 640 ml Output Total 1125 ml 140 ml Balance 219.9 ml 500 ml Intake Oral 1185 ml 640 ml IV Total 159.9 ml Output Urine Total 1125 ml 140 ml # Bowel Movements 1 . Laboratory Tests Test 05/08/17 10:50 05/09/17 05:45 White Blood Count 21.6 TH/MM3 22.0 TH/MM3 Red Blood Count 4.35 MIL/MM3 4.14 MIL/MM3 Hemoglobin 12.3 GM/DL 11.6 GM/DL Hematocrit 40.9 % 34.0 % Mean Corpuscular Volume 93.9 FL 82.0 FL Mean Corpuscular Hemoglobin 28.1 PG 28.1 PG Mean Corpuscular Hemoglobin Concent 30.0 % 34.2 % Red Cell Distribution Width 13.6 % 12.8 % Platelet Count 461 TH/MM3 436 TH/MM3 Mean Platelet Volume 8.1 FL 7.5 FL Neutrophils (%) (Auto) 90.6 % Lymphocytes (%) (Auto) 3.6 % Monocytes (%) (Auto) 5.5 % Eosinophils (%) (Auto) 0.0 % Basophils (%) (Auto) 0.3 % Neutrophils # (Auto) 19.6 TH/MM3 Lymphocytes # (Auto) 0.8 TH/MM3 Monocytes # (Auto) 1.2 TH/MM3 Eosinophils # (Auto) 0.0 TH/MM3 Basophils # (Auto) 0.1 TH/MM3 CBC Comment DIFF FINAL Differential Comment Laboratory Tests Test 05/08/17 10:50 05/08/17 15:46 05/08/17 19:04 05/09/17 04:59 Blood Urea Nitrogen 40 MG/DL 27 MG/DL 27 MG/DL Creatinine 2.38 MG/DL 1.40 MG/DL 1.26 MG/DL Random Glucose 1955 MG/DL 990 MG/DL 685 MG/DL 450 MG/DL Total Protein 8.3 GM/DL Albumin 2.8 GM/DL Calcium Level 9.6 MG/DL 10.1 MG/DL 9.5 MG/DL Magnesium Level 2.4 MG/DL 2.4 MG/DL 2.6 MG/DL Alkaline Phosphatase 161 U/L Aspartate Amino Transf (AST/SGOT) 6 U/L Alanine Aminotransferase (ALT/SGPT) 17 U/L Total Bilirubin 0.3 MG/DL Sodium Level 115 MEQ/L 143 MEQ/L 148 MEQ/L Potassium Level 4.3 MEQ/L 3.3 MEQ/L 5.6 MEQ/L Chloride Level 78 MEQ/L 109 MEQ/L 114 MEQ/L Carbon Dioxide Level 18.6 MEQ/L 22.0 MEQ/L 23.3 MEQ/L Anion Gap 18 MEQ/L 12 MEQ/L 11 MEQ/L Estimat Glomerular Filtration Rate 28 ML/MIN 52 ML/MIN 59 ML/MIN Lactic Acid Level 6.8 mmol/L 1.9 mmol/L 0.9 mmol/L Troponin I LESS THAN 0.02 NG/ML Phosphorus Level 0.8 MG/DL 5.6 MG/DL Triglycerides Level 275 MG/DL Cholesterol Level 149 MG/DL LDL Cholesterol 59 MG/DL HDL Cholesterol 34.8 MG/DL Cholesterol/HDL Ratio 4.28 RATIO Test 05/09/17 05:45 05/09/17 10:49 Blood Urea Nitrogen 29 MG/DL 29 MG/DL Creatinine 1.22 MG/DL 1.35 MG/DL Random Glucose 458 MG/DL 448 MG/DL Calcium Level 9.3 MG/DL 9.7 MG/DL Phosphorus Level 5.4 MG/DL 3.3 MG/DL Magnesium Level 2.6 MG/DL 2.6 MG/DL Sodium Level 149 MEQ/L 150 MEQ/L Potassium Level 5.1 MEQ/L 4.3 MEQ/L Chloride Level 115 MEQ/L 115 MEQ/L Carbon Dioxide Level 23.7 MEQ/L 25.2 MEQ/L Anion Gap 10 MEQ/L 10 MEQ/L Estimat Glomerular Filtration Rate 61 ML/MIN 54 ML/MIN Lactic Acid Level 0.9 mmol/L Microbiology Date/Time Source Procedure Growth Status 05/08/17 11:15 Blood Peripheral Aerobic Blood Culture - Preliminary NO GROWTH IN 1 DAY Resulted 05/08/17 11:15 Blood Peripheral Anaerobic Blood Culture - Preliminary NO GROWTH IN 1 DAY Resulted 05/08/17 11:10 Blood Peripheral Aerobic Blood Culture - Preliminary NO GROWTH IN 1 DAY Resulted 05/08/17 11:10 Anaerobic Blood Culture - Preliminary Staphylococcus Aureus Resulted 05/08/17 10:50 Urine Clean Catch Urine Culture - Preliminary Staphylococcus Aureus Resulted Imaging Last Impressions Foot MRI 05/09/17 0000 Signed Impressions: Service Date/Time: Tuesday, May 09, 2017 15:29 - CONCLUSION: Abnormal head of the fifth metatarsal suggestive of edema and cortical enhancement associated with soft tissue swelling. Early osteomyelitis suspect. Jordan Tovar MD Head CT 05/08/17 0000 Signed Impressions: Service Date/Time: April 14:16 - CONCLUSION: 1. No acute intracranial abnormality is identified. Raghavendra Lim MD Foot X-Ray 05/08/17 0000 Signed Impressions: Service Date/Time: April 11:18 - CONCLUSION: 1. Soft tissue swelling lateral foot near the fifth MTP. No acute bony abnormality. No radiopaque foreign body. Francisco Grider MD Physical Exam ONSTITUTIONAL/GENERAL: This is a thin ill appearing middle aged patient, in no apparent distress. TUBES/LINES/DRAINS: SKIN: No jaundice, rashes, or lesions. CARDIOVASCULAR: Regular rate and rhythm without murmurs, gallops, or rubs. No JVD. Peripheral pulses symmetric. Good pedal pulses perifery appears well perfused RESPIRATORY/CHEST: Symmetric, unlabored respirations. Clear to auscultation. Breath sounds equal bilaterally. No wheezes, rales, or rhonchi. GASTROINTESTINAL: Abdomen soft, non-tender, nondistended. Bowel sounds present. GENITOURINARY: Without palpable bladder distension. Knox catheter in place. MUSCULOSKELETAL: Extremities without clubbing, cyanosis, or edema.\ R foot with much improved edema,and erythema NEUROLOGICAL:fully awake and alert Follows commands. Clear speech. Moves all extremities. PSYCHIATRIC:calm and cooperative Assessment & Plan Remarks Assessment and Plan Extreme hyperglycemia and DKA: resolving -poorly controlled DM R foot DFI and early osteomyelitis 5th MT head New issue: MSSA sepsis: probably from the foot osteo MSSA bacteriuria : daniella 2/2 MSSA bacteremia - podiatry ff - now more stable for furthre eval'n - fu blood clx - will adjust abx per cultures; once MSSA confirmed by MILA - 2 D echo and repeat blood clx Marla Pritchard MD May 09, 2017 19:11
[2017-05-09 21:47] LABS: HEMOGLOBIN A1a 2.1 %; HEMOGLOBIN A1b 1.5 %; HEMOGLOBIN Ao 66.3 %; HEMOGLOBIN F 3.3 %; HEMOGLOBIN LA1C 3.5 %; HEMOGLOBIN P3 7.8 %
[2017-05-10] VITALS (13 sets, daily range): BP systolic 97–124; BP diastolic 52–74; PULSE 80–96; RESP 16–21; TEMP 99.2–102.4; O2SAT 92–95
[2017-05-10] MEDS: ACETAMINOPHEN/HYDROcodone 325 MG/5 MG TAB PO PRN (03:11)
[2017-05-10] MEDS: CHLORHEXIDINE GLUCONATE 2 % 1 PACK (2 CLOTHS) TOP SCH (04:00)
[2017-05-10 05:18] LABS: ALT (GPT) 14 U/L (12-78); ANION GAP 5 MEQ/L (5-15); AST (GOT) 18 U/L (15-37); AUTOMATED NEUTROPHIL # 13.1 TH/MM3 (1.8-7.7); BASOPHIL # 0.1 TH/MM3 (0-0.2); BASOPHIL % 0.7 % (0.0-2.0); BICARBONATE 27.6 MEQ/L (21.0-32.0); BLOOD UREA NITROGEN 21 MG/DL (7-18); CHLORIDE 112 MEQ/L (98-107); EOSINOPHIL # 0.1 TH/MM3 (0-0.4); EOSINOPHIL % 0.6 % (0.0-4.0); GLOMERULAR FILTRATION RATE 78 ML/MIN (>89); HEMATOCRIT 30.6 % (39.0-51.0); HEMO FLAGS DIFF FINAL; LYMPH % 16.3 % (9.0-44.0); LYMPHOCYTE # 2.8 TH/MM3 (1.0-4.8); MAGNESIUM 2.2 MG/DL (1.5-2.5); MEAN CELL VOLUME 81.7 FL (80.0-100.0); MEAN CORPUSCULAR HEMOGLOBIN 27.7 PG (27.0-34.0); MEAN CORPUSCULAR HGB CONC 33.9 % (32.0-36.0); MONO % 7.1 % (0.0-8.0); NEUT % 75.3 % (16.0-70.0); PLATELET COUNT 437 TH/MM3 (150-450); POTASSIUM 3.5 MEQ/L (3.5-5.1); RED BLOOD COUNT 3.75 MIL/MM3 (4.50-5.90); RED CELL DISTRIBUTION WIDTH 12.7 % (11.6-17.2); SODIUM (NA) 145 MEQ/L (136-145); WHITE BLOOD COUNT 17.4 TH/MM3 (4.0-11.0)
[2017-05-10 05:27] LABS: ALKALINE PHOSPHATASE 91 U/L (45-117); TOTAL BILIRUBIN ADULT 0.2 MG/DL (0.2-1.0)
[2017-05-10] MEDS: PIPERACIL-TAZO 2.25 GM PREMIX 50 ML IV SCH ×4 (06:12→23:14)
[2017-05-10] MEDS: SODIUM CHLORIDE 0.9% FLUSH 10 ML FLUSH IV FLUSH SCH ×2 (08:10→21:00)
[2017-05-10] MEDS: FAMOTIDINE 20 MG TAB PO SCH ×2 (08:10→21:04)
[2017-05-10] MEDS: DOCUSATE SODIUM 50 MG/SENNA 8.6 MG TAB PO SCH ×2 (08:10→21:00)
[2017-05-10] MEDS: INSULIN DETEMIR 100 UNITS/ML VIAL SQ SCH ×2 (08:11→21:05)
[2017-05-10] MEDS: INSULIN NovoLIN REGULAR SUPPLEMENTAL SCALE SQ SCH ×4 (08:12→21:00)
[2017-05-10] MEDS: HEPARIN SODIUM - SQ 10,000 UNITS/ML VIAL SQ SCH ×2 (08:12→21:05)
[2017-05-10] MEDS: BACITRACIN OINT 0.9 GM PKT TOPICAL SCH (08:22)
--- NOTE | 2017-05-10 09:43 | PD.POD ---
Subjective Podiatric Problems Right foot abscess and ulceration with cellulitis. Patient is much more awake and oriented today. He denies any pain/n/v/f/c/sob, complains only of headache which has resolved over night. Pain score: 0 Past Med/Surg/Social History Social History Smoking Status: Current Every Day Smoker Objective Vital Signs Vital Signs Date Time Temp Pulse Resp B/P (MAP) Pulse Ox O2 Delivery O2 Flow Rate FiO2 05/10/17 08:00 99.7 85 20 124/74 (91) 95 05/10/17 08:00 85 05/10/17 06:00 80 05/10/17 04:00 99.8 80 16 123/68 (86) 95 05/10/17 04:00 81 05/10/17 02:00 85 05/10/17 00:00 99.9 90 21 120/60 (80) 95 05/10/17 00:00 90 05/09/17 22:00 88 05/09/17 20:00 95 05/09/17 20:00 100.4 97 26 114/73 (87) 95 05/09/17 19:41 97 Nasal Cannula 2.00 05/09/17 18:02 98 05/09/17 18:00 98 05/09/17 16:00 95 05/09/17 16:00 99.5 98 16 135/74 (94) 100 05/09/17 14:00 93 05/09/17 12:00 98.2 98 16 124/72 (89) 99 05/09/17 12:00 95 05/09/17 10:00 95 Coded Allergies: No Known Allergies (Unverified , 05/08/17) Exam-Podiatry Remarks s/p right foot I&D: Dorsal ulcer of 0.7cm x 0.7cm with proximal sinus track of 2cm, no exposed, bone copious amounts of black purulent drainage and malodor. Wound bed is fibrotic and nectrotic, no exposed bone or tendon, hemalatha wound erythema. Right plantar lateral ulcer 1.5cm x 0.7cm x 0.5cm, probes deep to capsule but no exposed bone. Mild purulent drainage. + malodor. Fibrotic wound bed and hemalatha wound erythema. Assessment & Plan A/P 1)right foot ulcers x 2 stage III with improving cellulitis -s/p bedside I&D -wound cxs pending -wound care orders placed for nursing staff -WBAT in surgical shoe -pt will likely require a more aggresive wound debridement in the OR once his over all health is optimized -cont iv abx per ID -will follow closely while in house Lorri Vallecillo DPM May 10, 2017 09:43
--- NOTE | 2017-05-10 11:38 | HHI.PR ---
Subjective Remarks Patient told me the podiatry came today and she obtain few samples of his foot, he reported positive fever and nausea Objective Vitals Vital Signs Date Time Temp Pulse Resp B/P (MAP) Pulse Ox O2 Delivery O2 Flow Rate FiO2 05/10/17 10:00 90 05/10/17 08:00 99.7 85 20 124/74 (91) 95 05/10/17 08:00 85 05/10/17 07:40 92 21 05/10/17 06:00 80 05/10/17 04:00 99.8 80 16 123/68 (86) 95 05/10/17 04:00 81 05/10/17 02:00 85 05/10/17 00:00 99.9 90 21 120/60 (80) 95 05/10/17 00:00 90 05/09/17 22:00 88 05/09/17 20:00 95 05/09/17 20:00 100.4 97 26 114/73 (87) 95 05/09/17 19:41 97 Nasal Cannula 2.00 05/09/17 18:02 98 05/09/17 18:00 98 05/09/17 16:00 95 05/09/17 16:00 99.5 98 16 135/74 (94) 100 05/09/17 14:00 93 05/09/17 12:00 98.2 98 16 124/72 (89) 99 05/09/17 12:00 95 I/O 05/09/17 05/09/17 05/09/17 05/10/17 05/10/17 05/10/17 07:00 15:00 23:00 07:00 15:00 23:00 Intake Total 710.4 ml 1344.9 ml 1255 ml 850 ml Output Total 875 ml 1125 ml 315 ml 675 ml Balance -164.6 ml 219.9 ml 940 ml 175 ml Intake Oral 0 ml 1185 ml 640 ml 750 ml IV Total 710.4 ml 159.9 ml 615 ml 100 ml Output Urine Total 875 ml 1125 ml 315 ml 675 ml # Bowel Movements 0 1 0 Result Diagram: 05/10/1741205/10/17412 Objective Remarks GENERAL: This is a well-nourished, well-developed patient, in no apparent distress. SKIN: No rashes, warm and dry HEAD: Atraumatic. Normocephalic. EYES: Pupils equal round and reactive. Extraocular motions intact. No scleral icterus. ENT: Nose without bleeding, or drainage, Airway patent. NECK: Trachea midline. Supple CARDIOVASCULAR: Regular rate and rhythm without murmurs, gallops, or rubs. RESPIRATORY: Fair air entry bilaterally. No wheezes, rales, or rhonchi. GASTROINTESTINAL: Abdomen soft, non-tender, nondistended. Positive bowel sounds MUSCULOSKELETAL: Extremities without clubbing, cyanosis, or edema. Pedal pulses appreciated, right foot in gauze NEUROLOGICAL: Awake and alert. Moves all extremity. Normal speech.no focal neurological deficit A/P Problem List: (1) Thrombocytosis ICD Code: D47.3 - Essential (hemorrhagic) thrombocythemia (2) Normocytic anemia ICD Code: D64.9 - Anemia, unspecified (3) Leukocytosis ICD Code: D72.829 - Elevated white blood cell count, unspecified (4) Diabetic foot ulcer associated with type 2 diabetes mellitus, with fat layer exposed ICD Code: E11.621 - Type 2 diabetes mellitus with foot ulcer; L97.502 - Non- pressure chronic ulcer of other part of unspecified foot with fat layer exposed (5) Acute kidney injury ICD Code: N17.9 - Acute kidney failure, unspecified (6) Hyperosmolar non-ketotic state in patient with type 2 diabetes mellitus ICD Code: E11.01 - Type 2 diabetes mellitus with hyperosmolarity with coma (7) Dehydration with hyponatremia ICD Code: E87.1 - Hypo-osmolality and hyponatremia (8) Toxic metabolic encephalopathy ICD Code: G92 - Toxic encephalopathy (9) Septic shock ICD Code: A41.9 - Sepsis, unspecified organism; R65.21 - Severe sepsis with septic shock Assessment and Plan 05/10: WBC dropped to 17.4, awaiting 2-D echo, podiatry obtain foot samples, MRI of the foot shows fifth toe area OM, continue antibiotic, patient status post IND, podiatry recommended possible need for another debridement A/P: Acute delirium/toxic metabolic encephalopathy secondary to hyperglycemia - resolving Acetaminophen for fever Hydrocodone/acetaminophen and morphine for pain management Soft restraints if indicated for delirium CT brain 05/08 revealed no acute cranial findings Hypertension Lactic acidosis - resolved Status post hydration As needed hydralazine and Nitropaste with systolic blood pressure greater than 170 Serial lactates every 6 hours until cleared Initial troponin negative. Ongoing tobaccoism Nasal cannula to maintain saturations greater than or equal to 92% Incentive spirometry while awake Nicotine cessation will be encouraged. Nicotine patch if indicated/requested Nausea/vomiting On ondansetron 4 mg every 6 hours when necessary Liver function tests within normal limits. Lipase pending Currently nothing by mouth. Advance to ADA diet see orders Famotidine 20 mg by mouth twice a day for GI prophylaxis Docusate sodium/senna 1 tablet twice a day for bowel regimen Hyperosmolar non-ketotic state in a type II diabetic Diabetes mellitus type 2 Status post insulin drip and hydration Acute kidney injury - resolved History of nephrolithiasis Serial BMPs. Likely secondary to dehydration. Avoid nephrotoxic drugs Creatinine currently normalized Leukocytosis Normocytic anemia Thrombocytopenia Monitor CBC daily. Follow trends On piperacillin/tazobactam and vancomycin for diabetic foot Appreciate ID consultation X-ray revealed soft tissue swelling of the right fifth MTP MRI foot positive OM Right diabetic foot ulcer Podiatry consult for recommendations possible debridement in origin 1-2 days once stable Hypernatremia Hyper-magnesium Hyperphosphatemia Replace electrolytes as clinically indicated. Access - Utilize peripheral IV. Central line if indicated Prophylaxis - GI -famotidine - DVT - SCD/heparin subcutaneous Problem Qualifiers (1) Leukocytosis: Qualified Codes: D72.829 - Elevated white blood cell count, unspecified (2) Diabetic foot ulcer associated with type 2 diabetes mellitus, with fat layer exposed: Qualified Codes: E11.621 - Type 2 diabetes mellitus with foot ulcer; L97.512 - Non-pressure chronic ulcer of other part of right foot with fat layer exposed Paras Roe MD May 10, 2017 11:38
[2017-05-10] MEDS: VANCOMYCIN 1,500 MG/NS 500 ML IV SCH ×2 (14:16)
--- NOTE | 2017-05-10 15:34 | HHI.PR ---
Addendum to Inpatient Note Additional Information pt seen around 1500 full note to follow growing MSSA from podiatry input appreciated cont current x Marla Pritchard MD May 10, 2017 15:34
[2017-05-10] MEDS: ACETAMINOPHEN 325 MG TAB PO PRN (21:05)
--- NOTE | 2017-05-10 22:02 | HHI.IDPN ---
Subjective Subjective Remarks delaeyed entry pt seen around 1500 growing MSSA from podiatry input appreciated: apparently upon removing odf dry eschar foul smelling purulence was encounted + fever up to 102 F Antibiotics zosyn vanco Allergies: Coded Allergies: No Known Allergies (Unverified , 05/08/17) Objective . Vital Signs Date Time Temp Pulse Resp B/P (MAP) Pulse Ox O2 Delivery O2 Flow Rate FiO2 05/10/17 20:00 102.4 84 20 110/58 (75) 94 05/10/17 20:00 84 05/10/17 18:00 96 05/10/17 16:00 88 05/10/17 16:00 99.2 88 21 119/72 (88) 94 05/10/17 14:00 85 05/10/17 12:00 83 05/10/17 12:00 99.7 83 16 97/52 (67) 94 05/10/17 10:00 90 05/10/17 08:00 99.7 85 20 124/74 (91) 95 05/10/17 08:00 85 05/10/17 07:40 92 21 05/10/17 06:00 80 05/10/17 04:00 99.8 80 16 123/68 (86) 95 05/10/17 04:00 81 05/10/17 02:00 85 05/10/17 00:00 99.9 90 21 120/60 (80) 95 05/10/17 00:00 90 05/09/17 22:00 88 05/10/17 05/10/17 05/11/17 15:00 23:00 07:00 Intake Total 50 ml 1525 ml Output Total 550 ml Balance 50 ml 975 ml Intake Oral 960 ml IV Total 50 ml 565 ml Output Urine Total 550 ml . Laboratory Tests Test 05/09/17 05:45 05/10/17 04:13 White Blood Count 22.0 TH/MM3 17.4 TH/MM3 Red Blood Count 4.14 MIL/MM3 3.75 MIL/MM3 Hemoglobin 11.6 GM/DL 10.4 GM/DL Hematocrit 34.0 % 30.6 % Mean Corpuscular Volume 82.0 FL 81.7 FL Mean Corpuscular Hemoglobin 28.1 PG 27.7 PG Mean Corpuscular Hemoglobin Concent 34.2 % 33.9 % Red Cell Distribution Width 12.8 % 12.7 % Platelet Count 436 TH/MM3 437 TH/MM3 Mean Platelet Volume 7.5 FL 7.7 FL Neutrophils (%) (Auto) 75.3 % Lymphocytes (%) (Auto) 16.3 % Monocytes (%) (Auto) 7.1 % Eosinophils (%) (Auto) 0.6 % Basophils (%) (Auto) 0.7 % Neutrophils # (Auto) 13.1 TH/MM3 Lymphocytes # (Auto) 2.8 TH/MM3 Monocytes # (Auto) 1.2 TH/MM3 Eosinophils # (Auto) 0.1 TH/MM3 Basophils # (Auto) 0.1 TH/MM3 CBC Comment DIFF FINAL Differential Comment Laboratory Tests Test 05/09/17 04:59 05/09/17 05:45 05/09/17 10:49 05/10/17 04:13 Blood Urea Nitrogen 27 MG/DL 29 MG/DL 29 MG/DL 21 MG/DL Creatinine 1.26 MG/DL 1.22 MG/DL 1.35 MG/DL 0.99 MG/DL Random Glucose 450 MG/DL 458 MG/DL 448 MG/DL 173 MG/DL Calcium Level 9.5 MG/DL 9.3 MG/DL 9.7 MG/DL 8.6 MG/DL Phosphorus Level 5.6 MG/DL 5.4 MG/DL 3.3 MG/DL 2.8 MG/DL Magnesium Level 2.6 MG/DL 2.6 MG/DL 2.6 MG/DL 2.2 MG/DL Sodium Level 148 MEQ/L 149 MEQ/L 150 MEQ/L 145 MEQ/L Potassium Level 5.6 MEQ/L 5.1 MEQ/L 4.3 MEQ/L 3.5 MEQ/L Chloride Level 114 MEQ/L 115 MEQ/L 115 MEQ/L 112 MEQ/L Carbon Dioxide Level 23.3 MEQ/L 23.7 MEQ/L 25.2 MEQ/L 27.6 MEQ/L Anion Gap 11 MEQ/L 10 MEQ/L 10 MEQ/L 5 MEQ/L Estimat Glomerular Filtration Rate 59 ML/MIN 61 ML/MIN 54 ML/MIN 78 ML/MIN Hemoglobin A1c 15.5 % Lactic Acid Level 0.9 mmol/L 0.9 mmol/L Triglycerides Level 275 MG/DL Cholesterol Level 149 MG/DL LDL Cholesterol 59 MG/DL HDL Cholesterol 34.8 MG/DL Cholesterol/HDL Ratio 4.28 RATIO Total Protein 6.6 GM/DL Albumin 2.2 GM/DL Alkaline Phosphatase 91 U/L Aspartate Amino Transf (AST/SGOT) 18 U/L Alanine Aminotransferase (ALT/SGPT) 14 U/L Total Bilirubin 0.2 MG/DL Microbiology Date/Time Source Procedure Growth Status 05/08/17 11:15 Blood Peripheral Aerobic Blood Culture - Preliminary NO GROWTH IN 2 DAYS Resulted 05/08/17 11:15 Blood Peripheral Anaerobic Blood Culture - Preliminary NO GROWTH IN 2 DAYS Resulted 05/08/17 11:10 Blood Peripheral Aerobic Blood Culture - Preliminary NO GROWTH IN 2 DAYS Resulted 05/08/17 11:10 Anaerobic Blood Culture - Preliminary Staphylococcus Aureus Resulted 05/08/17 10:50 Urine Clean Catch Urine Culture - Final Staphylococcus Aureus Complete 05/10/17 09:42 Wound Foot Gram Stain Pending Received 05/10/17 09:42 Wound Foot Wound Culture Pending Received Imaging Last Impressions Foot MRI 05/09/17 0000 Signed Impressions: Service Date/Time: Tuesday, May 09, 2017 15:29 - CONCLUSION: Abnormal head of the fifth metatarsal suggestive of edema and cortical enhancement associated with soft tissue swelling. Early osteomyelitis suspect. Jordan Tovar MD Head CT 05/08/17 0000 Signed Impressions: Service Date/Time: April 14:16 - CONCLUSION: 1. No acute intracranial abnormality is identified. Raghavendra Lim MD Foot X-Ray 05/08/17 0000 Signed Impressions: Service Date/Time: April 11:18 - CONCLUSION: 1. Soft tissue swelling lateral foot near the fifth MTP. No acute bony abnormality. No radiopaque foreign body. Francisco Grider MD Physical Exam ONSTITUTIONAL/GENERAL: This is a thin ill appearing middle aged patient, in no apparent distress. TUBES/LINES/DRAINS: SKIN: No jaundice, rashes, or lesions. CARDIOVASCULAR: Regular rate and rhythm without murmurs, gallops, or rubs. No JVD. Peripheral pulses symmetric. Good pedal pulses perifery appears well perfused RESPIRATORY/CHEST: Symmetric, unlabored respirations. Clear to auscultation. Breath sounds equal bilaterally. No wheezes, rales, or rhonchi. GASTROINTESTINAL: Abdomen soft, non-tender, nondistended. Bowel sounds present. GENITOURINARY: Without palpable bladder distension. Knox catheter in place. MUSCULOSKELETAL: Extremities without clubbing, cyanosis, or edema.\ R foot with stasble edema,and erythema dressing in place NEUROLOGICAL: lethargic Moves all extremities. PSYCHIATRIC:calm and cooperative Assessment & Plan Remarks Assessment and Plan Extreme hyperglycemia and DKA: resolving -poorly controlled DM R foot DFI and early osteomyelitis 5th MT head New issue: MSSA sepsis: probably from the foot osteo MSSA bacteriuria : lekly 2/2 MSSA bacteremia cont current abx - podiatry ff - now more stable for furthre eval'n - fu blood clx - will adjust abx per cultures; once MSSA confirmed by MIL[facility] and once foot clx arvaileb (P) - 2 D echo and repeat blood clx Marla Pritchard MD May 10, 2017 22:02
[2017-05-11] VITALS (14 sets, daily range): BP systolic 96–143; BP diastolic 53–82; PULSE 76–109; RESP 16–18; TEMP 98–102.9; O2SAT 94–98
[2017-05-11] MEDS: CHLORHEXIDINE GLUCONATE 2 % 1 PACK (2 CLOTHS) TOP SCH (04:00)
[2017-05-11] MEDS: PIPERACIL-TAZO 2.25 GM PREMIX 50 ML IV SCH ×4 (06:33→23:18)
[2017-05-11] MEDS: INSULIN DETEMIR 100 UNITS/ML VIAL SQ SCH ×2 (08:56→21:49)
[2017-05-11] MEDS: FAMOTIDINE 20 MG TAB PO SCH ×2 (08:57→19:34)
[2017-05-11] MEDS: SODIUM CHLORIDE 0.9% FLUSH 10 ML FLUSH IV FLUSH SCH ×2 (08:57→19:34)
[2017-05-11] MEDS: INSULIN NovoLIN REGULAR SUPPLEMENTAL SCALE SQ SCH ×4 (08:57→21:49)
[2017-05-11] MEDS: HEPARIN SODIUM - SQ 10,000 UNITS/ML VIAL SQ SCH ×2 (08:58→19:34)
[2017-05-11] MEDS: DOCUSATE SODIUM 50 MG/SENNA 8.6 MG TAB PO SCH ×2 (08:58→19:34)
[2017-05-11] MEDS: BACITRACIN OINT 0.9 GM PKT TOPICAL SCH (08:59)
[2017-05-11] MEDS: BACITRACIN TOP OINT 15 GM TUBE TOPICAL SCH (08:59)
--- NOTE | 2017-05-11 12:37 | HHI.IDPN ---
Subjective Subjective Remarks no fever today 2 D echo done, results P Antibiotics zosyn vanco Allergies: Coded Allergies: No Known Allergies (Unverified , 05/08/17) Objective . Vital Signs Date Time Temp Pulse Resp B/P (MAP) Pulse Ox O2 Delivery O2 Flow Rate FiO2 05/11/17 10:00 88 05/11/17 08:00 98.9 82 143/82 (102) 98 05/11/17 08:00 82 05/11/17 07:27 98 21 05/11/17 06:00 82 05/11/17 04:00 99.6 89 16 104/61 (75) 96 05/11/17 04:00 89 05/11/17 02:00 76 05/11/17 00:00 94 21 05/11/17 00:00 83 05/11/17 00:00 98.0 83 18 105/58 (74) 95 05/10/17 22:00 81 05/10/17 20:00 102.4 84 20 110/58 (75) 94 05/10/17 20:00 84 05/10/17 18:00 96 05/10/17 16:00 88 05/10/17 16:00 99.2 88 21 119/72 (88) 94 05/10/17 14:00 85 . Laboratory Tests Test 05/10/17 04:13 White Blood Count 17.4 TH/MM3 Red Blood Count 3.75 MIL/MM3 Hemoglobin 10.4 GM/DL Hematocrit 30.6 % Mean Corpuscular Volume 81.7 FL Mean Corpuscular Hemoglobin 27.7 PG Mean Corpuscular Hemoglobin Concent 33.9 % Red Cell Distribution Width 12.7 % Platelet Count 437 TH/MM3 Mean Platelet Volume 7.7 FL Neutrophils (%) (Auto) 75.3 % Lymphocytes (%) (Auto) 16.3 % Monocytes (%) (Auto) 7.1 % Eosinophils (%) (Auto) 0.6 % Basophils (%) (Auto) 0.7 % Neutrophils # (Auto) 13.1 TH/MM3 Lymphocytes # (Auto) 2.8 TH/MM3 Monocytes # (Auto) 1.2 TH/MM3 Eosinophils # (Auto) 0.1 TH/MM3 Basophils # (Auto) 0.1 TH/MM3 CBC Comment DIFF FINAL Differential Comment Laboratory Tests Test 05/10/17 04:13 Blood Urea Nitrogen 21 MG/DL Creatinine 0.99 MG/DL Random Glucose 173 MG/DL Total Protein 6.6 GM/DL Albumin 2.2 GM/DL Calcium Level 8.6 MG/DL Phosphorus Level 2.8 MG/DL Magnesium Level 2.2 MG/DL Alkaline Phosphatase 91 U/L Aspartate Amino Transf (AST/SGOT) 18 U/L Alanine Aminotransferase (ALT/SGPT) 14 U/L Total Bilirubin 0.2 MG/DL Sodium Level 145 MEQ/L Potassium Level 3.5 MEQ/L Chloride Level 112 MEQ/L Carbon Dioxide Level 27.6 MEQ/L Anion Gap 5 MEQ/L Estimat Glomerular Filtration Rate 78 ML/MIN Microbiology Date/Time Source Procedure Growth Status 05/10/17 09:42 Wound Foot Gram Stain - Final Resulted 05/10/17 09:42 Wound Foot Wound Culture Pending Resulted Imaging Last Impressions Foot MRI 05/09/17 0000 Signed Impressions: Service Date/Time: Tuesday, May 09, 2017 15:29 - CONCLUSION: Abnormal head of the fifth metatarsal suggestive of edema and cortical enhancement associated with soft tissue swelling. Early osteomyelitis suspect. Jordan Tovar MD Head CT 05/08/17 0000 Signed Impressions: Service Date/Time: April 14:16 - CONCLUSION: 1. No acute intracranial abnormality is identified. Raghavendra Lim MD Foot X-Ray 05/08/17 0000 Signed Impressions: Service Date/Time: April 11:18 - CONCLUSION: 1. Soft tissue swelling lateral foot near the fifth MTP. No acute bony abnormality. No radiopaque foreign body. Francisco Grider MD Physical Exam ONSTITUTIONAL/GENERAL: This is a thin ill appearing middle aged patient, in no apparent distress. TUBES/LINES/DRAINS: SKIN: No jaundice, rashes, or lesions. CARDIOVASCULAR: Regular rate and rhythm without murmurs, gallops, or rubs. No JVD. Peripheral pulses symmetric. Good pedal pulses perifery appears well perfused RESPIRATORY/CHEST: Symmetric, unlabored respirations. Clear to auscultation. Breath sounds equal bilaterally. No wheezes, rales, or rhonchi. GASTROINTESTINAL: Abdomen soft, non-tender, nondistended. Bowel sounds present. GENITOURINARY: Without palpable bladder distension. Knox catheter in place. MUSCULOSKELETAL: Extremities without clubbing, cyanosis, or edema.\ R foot with persisten edema,and erythema over lateral aspect dressing in place with serosang staining, no odor NEUROLOGICAL: FUlly awake and alert Non focal PSYCHIATRIC:calm plaesant and cooperative Assessment & Plan Remarks Assessment and Plan Extreme hyperglycemia and DKA: resolving -poorly controlled DM R foot DFI and early osteomyelitis 5th MT head New issue: MSSA sepsis: probably from the foot osteo MSSA bacteriuria : lekly 2/2 MSSA bacteremia cont current abx - podiatry ff - will need formal debridement - fu R foot clx - will adjust abx per foot cultures; - fu 2 D echo - repeat blood clx to ensure resolutio of MSSA bacteremia Marla Pritchard MD May 11, 2017 12:37
--- NOTE | 2017-05-11 13:48 | HHI.PR ---
Subjective Remarks resting in bed comfortably , sleeping , woke up to voice no f/c Objective Vitals Vital Signs Date Time Temp Pulse Resp B/P (MAP) Pulse Ox O2 Delivery O2 Flow Rate FiO2 05/11/17 12:00 92 05/11/17 12:00 98.6 92 18 125/62 (83) 94 05/11/17 10:00 88 05/11/17 08:00 98.9 82 143/82 (102) 98 05/11/17 08:00 82 05/11/17 07:27 98 21 05/11/17 06:00 82 05/11/17 04:00 99.6 89 16 104/61 (75) 96 05/11/17 04:00 89 05/11/17 02:00 76 05/11/17 00:00 94 21 05/11/17 00:00 83 05/11/17 00:00 98.0 83 18 105/58 (74) 95 05/10/17 22:00 81 05/10/17 20:00 102.4 84 20 110/58 (75) 94 05/10/17 20:00 84 05/10/17 18:00 96 05/10/17 16:00 88 05/10/17 16:00 99.2 88 21 119/72 (88) 94 05/10/17 14:00 85 I/O 05/10/17 05/10/17 05/10/17 05/11/17 05/11/17 05/11/17 07:00 15:00 23:00 07:00 15:00 23:00 Intake Total 850 ml 50 ml 1525 ml 550 ml Output Total 675 ml 550 ml 1150 ml Balance 175 ml 50 ml 975 ml -600 ml Intake Oral 750 ml 960 ml 500 ml IV Total 100 ml 50 ml 565 ml 50 ml Output Urine Total 675 ml 550 ml 1150 ml # Bowel Movements 0 0 Result Diagram: 05/10/1741205/10/17412 Objective Remarks GENERAL: This is a well-nourished, well-developed patient, in no apparent distress. SKIN: No rashes, warm and dry HEAD: Atraumatic. Normocephalic. EYES: Pupils equal round and reactive. Extraocular motions intact. No scleral icterus. ENT: Nose without bleeding, or drainage, Airway patent. NECK: Trachea midline. Supple CARDIOVASCULAR: Regular rate and rhythm without murmurs, gallops, or rubs. RESPIRATORY: Fair air entry bilaterally. No wheezes, rales, or rhonchi. GASTROINTESTINAL: Abdomen soft, non-tender, nondistended. Positive bowel sounds MUSCULOSKELETAL: Extremities without clubbing, cyanosis, or edema. Pedal pulses appreciated, right foot in gauze NEUROLOGICAL: Awake and alert. Moves all extremity. Normal speech.no focal neurological deficit A/P Problem List: (1) Thrombocytosis ICD Code: D47.3 - Essential (hemorrhagic) thrombocythemia (2) Normocytic anemia ICD Code: D64.9 - Anemia, unspecified (3) Leukocytosis ICD Code: D72.829 - Elevated white blood cell count, unspecified (4) Diabetic foot ulcer associated with type 2 diabetes mellitus, with fat layer exposed ICD Code: E11.621 - Type 2 diabetes mellitus with foot ulcer; L97.502 - Non- pressure chronic ulcer of other part of unspecified foot with fat layer exposed (5) Acute kidney injury ICD Code: N17.9 - Acute kidney failure, unspecified (6) Hyperosmolar non-ketotic state in patient with type 2 diabetes mellitus ICD Code: E11.01 - Type 2 diabetes mellitus with hyperosmolarity with coma (7) Dehydration with hyponatremia ICD Code: E87.1 - Hypo-osmolality and hyponatremia (8) Toxic metabolic encephalopathy ICD Code: G92 - Toxic encephalopathy (9) Septic shock ICD Code: A41.9 - Sepsis, unspecified organism; R65.21 - Severe sepsis with septic shock Assessment and Plan 05/10: WBC dropped to 17.4, awaiting 2-D echo, podiatry obtain foot samples, MRI of the foot shows fifth toe area OM, continue antibiotic, patient status post IND, podiatry recommended possible need for another debridement 05/11 : stable , foot infx w/up in process , transfer to medical floor A/P: Acute delirium/toxic metabolic encephalopathy secondary to hyperglycemia - resolving Acetaminophen for fever Hydrocodone/acetaminophen and morphine for pain management Soft restraints if indicated for delirium CT brain 05/08 revealed no acute cranial findings Hypertension Lactic acidosis - resolved Status post hydration As needed hydralazine and Nitropaste with systolic blood pressure greater than 170 Serial lactates every 6 hours until cleared Initial troponin negative. Ongoing tobaccoism Nasal cannula to maintain saturations greater than or equal to 92% Incentive spirometry while awake Nicotine cessation will be encouraged. Nicotine patch if indicated/requested Nausea/vomiting On ondansetron 4 mg every 6 hours when necessary Liver function tests within normal limits. Lipase pending Currently nothing by mouth. Advance to ADA diet see orders Famotidine 20 mg by mouth twice a day for GI prophylaxis Docusate sodium/senna 1 tablet twice a day for bowel regimen Hyperosmolar non-ketotic state in a type II diabetic Diabetes mellitus type 2 Status post insulin drip and hydration Acute kidney injury - resolved History of nephrolithiasis Serial BMPs. Likely secondary to dehydration. Avoid nephrotoxic drugs Creatinine currently normalized Leukocytosis Normocytic anemia Thrombocytopenia Monitor CBC daily. Follow trends On piperacillin/tazobactam and vancomycin for diabetic foot Appreciate ID consultation X-ray revealed soft tissue swelling of the right fifth MTP MRI foot positive OM Right diabetic foot ulcer Podiatry consult for recommendations possible debridement in origin 1-2 days once stable Hypernatremia Hyper-magnesium Hyperphosphatemia Replace electrolytes as clinically indicated. Access - Utilize peripheral IV. Central line if indicated Prophylaxis - GI -famotidine - DVT - SCD/heparin subcutaneous Problem Qualifiers (1) Leukocytosis: Qualified Codes: D72.829 - Elevated white blood cell count, unspecified (2) Diabetic foot ulcer associated with type 2 diabetes mellitus, with fat layer exposed: Qualified Codes: E11.621 - Type 2 diabetes mellitus with foot ulcer; L97.512 - Non-pressure chronic ulcer of other part of right foot with fat layer exposed Paras Roe MD May 11, 2017 13:48
[2017-05-11] MEDS: MORPHINE SULFATE 4 MG/ML INJ IV PUSH PRN (14:38)
[2017-05-11] MEDS: ACETAMINOPHEN 325 MG TAB PO PRN (14:38)
--- NOTE | 2017-05-11 14:40 | ECHRPT ---
Indication: vegetations CONCLUSIONS Limited echo The left ventricular systolic function is normal with an estimated ejection fraction in the range of 60-65%. No vegetation noted. BP: 104 / 61 HR: 75 Rhythm: Sinus Technical Quality:Fair FINDINGS LEFT VENTRICLE The left ventricular systolic function is normal with an estimated ejection fraction in the range of 60-65%. MITRAL VALVE Structurally normal mitral valve. No vegetation noted. AORTIC VALVE Trileaflet aortic valve. No Vegetation noted. TRICUSPID VALVE Structurally normal tricuspid valve. No vegetation noted. PULMONARY VALVE The pulmonary valve is not well visualized. Ryan Prieto MD (Electronically Signed) Final Date:11 May 2017 14:39
[2017-05-11] MEDS ORDERED: PHARMACY ORDERED LAB ONE (14:45)
[2017-05-11 17:14] LABS: AUTOMATED NEUTROPHIL # 13.6 TH/MM3 (1.8-7.7); BASOPHIL # 0.2 TH/MM3 (0-0.2); BASOPHIL % 1.4 % (0.0-2.0); EOSINOPHIL # 0.1 TH/MM3 (0-0.4); EOSINOPHIL % 0.7 % (0.0-4.0); HEMATOCRIT 29.9 % (39.0-51.0); HEMO FLAGS DIFF FINAL; LYMPH % 12.8 % (9.0-44.0); LYMPHOCYTE # 2.2 TH/MM3 (1.0-4.8); MEAN CELL VOLUME 82.4 FL (80.0-100.0); MEAN CORPUSCULAR HEMOGLOBIN 27.2 PG (27.0-34.0); MEAN CORPUSCULAR HGB CONC 33.1 % (32.0-36.0); MONO % 5.3 % (0.0-8.0); NEUT % 79.8 % (16.0-70.0); PLATELET COUNT 371 TH/MM3 (150-450); RED BLOOD COUNT 3.63 MIL/MM3 (4.50-5.90); RED CELL DISTRIBUTION WIDTH 12.7 % (11.6-17.2); WHITE BLOOD COUNT 17.1 TH/MM3 (4.0-11.0)
[2017-05-11] MEDS: VANCOMYCIN 1,500 MG/NS 500 ML IV SCH ×2 (18:01)
[2017-05-11 18:08] LABS: BICARBONATE 27.7 MEQ/L (21.0-32.0); POTASSIUM 3.7 MEQ/L (3.5-5.1)
[2017-05-11] MEDS: ACETAMINOPHEN/HYDROcodone 325 MG/5 MG TAB PO PRN (19:35)
--- NOTE | 2017-05-11 22:13 | HHI.PR ---
Addendum to Inpatient Note Additional Information I will be off May [address] Bocanegra is covering for me Marla Pritchard MD May 11, 2017 22:13
[2017-05-12] VITALS (9 sets, daily range): BP systolic 103–147; BP diastolic 58–87; PULSE 82–98; RESP 16–21; TEMP 99–100.8; O2SAT 94–99
[2017-05-12] MEDS: CHLORHEXIDINE GLUCONATE 2 % 1 PACK (2 CLOTHS) TOP SCH (04:00)
[2017-05-12 05:50] LABS: AUTOMATED NEUTROPHIL # 14.8 TH/MM3 (1.8-7.7); BASOPHIL # 0.1 TH/MM3 (0-0.2); BASOPHIL % 0.7 % (0.0-2.0); EOSINOPHIL # 0.2 TH/MM3 (0-0.4); EOSINOPHIL % 1.2 % (0.0-4.0); HEMATOCRIT 31.3 % (39.0-51.0); HEMO FLAGS DIFF FINAL; LYMPHOCYTE # 2.2 TH/MM3 (1.0-4.8); MEAN CELL VOLUME 82.4 FL (80.0-100.0); MEAN CORPUSCULAR HEMOGLOBIN 27.1 PG (27.0-34.0); MEAN CORPUSCULAR HGB CONC 32.9 % (32.0-36.0); MONO % 6.9 % (0.0-8.0); NEUT % 79.2 % (16.0-70.0); PLATELET COUNT 338 TH/MM3 (150-450); RED CELL DISTRIBUTION WIDTH 12.7 % (11.6-17.2); WHITE BLOOD COUNT 18.7 TH/MM3 (4.0-11.0)
[2017-05-12] MEDS: PIPERACIL-TAZO 2.25 GM PREMIX 50 ML IV SCH ×2 (06:29→10:12)
[2017-05-12] MEDS: BACITRACIN OINT 0.9 GM PKT TOPICAL SCH (09:00)
[2017-05-12] MEDS: DOCUSATE SODIUM 50 MG/SENNA 8.6 MG TAB PO SCH (09:00)
[2017-05-12] MEDS: BACITRACIN TOP OINT 15 GM TUBE TOPICAL SCH (09:05)
[2017-05-12] MEDS: HEPARIN SODIUM - SQ 10,000 UNITS/ML VIAL SQ SCH ×2 (09:06→20:53)
[2017-05-12] MEDS: SODIUM CHLORIDE 0.9% FLUSH 10 ML FLUSH IV FLUSH SCH ×2 (09:06→20:53)
[2017-05-12] MEDS: FAMOTIDINE 20 MG TAB PO SCH ×2 (09:06→20:53)
[2017-05-12] MEDS: INSULIN DETEMIR 100 UNITS/ML VIAL SQ SCH ×2 (09:06→20:54)
[2017-05-12] MEDS: INSULIN NovoLIN REGULAR SUPPLEMENTAL SCALE SQ SCH ×4 (09:07→20:54)
[2017-05-12] MEDS ORDERED: VANCOMYCIN INJ 1,100 MG in SODIUM CHLOR 0.9% 250 ML INJ 250 ML IV SCH (10:00)
[2017-05-12] MEDS: MORPHINE SULFATE 4 MG/ML INJ IV PUSH PRN (10:13)
--- NOTE | 2017-05-12 10:18 | HHI.IDPN ---
Note Infectious Disease Note Vital Signs Date Time Temp Pulse Resp B/P (MAP) Pulse Ox O2 Delivery O2 Flow Rate FiO2 05/12/17 08:12 94 05/12/17 06:00 82 05/12/17 04:00 100.3 83 18 103/59 (74) 95 05/12/17 04:00 83 05/12/17 02:00 95 05/12/17 00:00 91 05/12/17 00:00 99.8 91 20 106/58 (74) 94 05/11/17 22:00 97 05/11/17 20:00 101.2 109 18 114/65 (81) 95 05/11/17 20:00 109 05/11/17 18:00 91 05/11/17 16:00 99.9 82 96/53 (67) 96 05/11/17 16:00 82 05/11/17 15:02 102.9 05/11/17 14:00 99 05/11/17 12:00 92 05/11/17 12:00 98.6 92 18 125/62 (83) 94 Laboratory Tests Test 05/11/17 16:43 05/12/17 05:15 White Blood Count 17.1 TH/MM3 18.7 TH/MM3 Red Blood Count 3.63 MIL/MM3 3.80 MIL/MM3 Hemoglobin 9.9 GM/DL 10.3 GM/DL Hematocrit 29.9 % 31.3 % Mean Corpuscular Volume 82.4 FL 82.4 FL Mean Corpuscular Hemoglobin 27.2 PG 27.1 PG Mean Corpuscular Hemoglobin Concent 33.1 % 32.9 % Red Cell Distribution Width 12.7 % 12.7 % Platelet Count 371 TH/MM3 338 TH/MM3 Mean Platelet Volume 7.3 FL 7.3 FL Neutrophils (%) (Auto) 79.8 % 79.2 % Lymphocytes (%) (Auto) 12.8 % 12.0 % Monocytes (%) (Auto) 5.3 % 6.9 % Eosinophils (%) (Auto) 0.7 % 1.2 % Basophils (%) (Auto) 1.4 % 0.7 % Neutrophils # (Auto) 13.6 TH/MM3 14.8 TH/MM3 Lymphocytes # (Auto) 2.2 TH/MM3 2.2 TH/MM3 Monocytes # (Auto) 0.9 TH/MM3 1.3 TH/MM3 Eosinophils # (Auto) 0.1 TH/MM3 0.2 TH/MM3 Basophils # (Auto) 0.2 TH/MM3 0.1 TH/MM3 CBC Comment DIFF FINAL DIFF FINAL Differential Comment Blood Urea Nitrogen 16 MG/DL Creatinine 0.93 MG/DL Random Glucose 214 MG/DL Calcium Level 7.9 MG/DL Sodium Level 137 MEQ/L Potassium Level 3.7 MEQ/L Chloride Level 104 MEQ/L Carbon Dioxide Level 27.7 MEQ/L Anion Gap 5 MEQ/L Estimat Glomerular Filtration Rate 83 ML/MIN Vancomycin Level Trough 5.1 MCG/ML Laboratory Tests Test 05/11/17 16:43 05/12/17 05:15 White Blood Count 17.1 TH/MM3 18.7 TH/MM3 Red Blood Count 3.63 MIL/MM3 3.80 MIL/MM3 Hemoglobin 9.9 GM/DL 10.3 GM/DL Hematocrit 29.9 % 31.3 % Mean Corpuscular Volume 82.4 FL 82.4 FL Mean Corpuscular Hemoglobin 27.2 PG 27.1 PG Mean Corpuscular Hemoglobin Concent 33.1 % 32.9 % Red Cell Distribution Width 12.7 % 12.7 % Platelet Count 371 TH/MM3 338 TH/MM3 Mean Platelet Volume 7.3 FL 7.3 FL Neutrophils (%) (Auto) 79.8 % 79.2 % Lymphocytes (%) (Auto) 12.8 % 12.0 % Monocytes (%) (Auto) 5.3 % 6.9 % Eosinophils (%) (Auto) 0.7 % 1.2 % Basophils (%) (Auto) 1.4 % 0.7 % Neutrophils # (Auto) 13.6 TH/MM3 14.8 TH/MM3 Lymphocytes # (Auto) 2.2 TH/MM3 2.2 TH/MM3 Monocytes # (Auto) 0.9 TH/MM3 1.3 TH/MM3 Eosinophils # (Auto) 0.1 TH/MM3 0.2 TH/MM3 Basophils # (Auto) 0.2 TH/MM3 0.1 TH/MM3 CBC Comment DIFF FINAL DIFF FINAL Differential Comment Laboratory Tests Test 05/11/17 16:43 Blood Urea Nitrogen 16 MG/DL Creatinine 0.93 MG/DL Random Glucose 214 MG/DL Calcium Level 7.9 MG/DL Sodium Level 137 MEQ/L Potassium Level 3.7 MEQ/L Chloride Level 104 MEQ/L Carbon Dioxide Level 27.7 MEQ/L Anion Gap 5 MEQ/L Estimat Glomerular Filtration Rate 83 ML/MIN Microbiology Date/Time Source Procedure Growth Status 05/11/17 16:43 Blood Peripheral Aerobic Blood Culture Pending Received 05/11/17 16:43 Blood Peripheral Anaerobic Blood Culture Pending Received 05/11/17 16:35 Blood Peripheral Aerobic Blood Culture Pending Received 05/11/17 16:35 Blood Peripheral Anaerobic Blood Culture Pending Received 05/10/17 09:42 Wound Foot Gram Stain - Final Resulted 05/10/17 09:42 Wound Culture - Preliminary Staphylococcus Aureus Resulted SUBJECTIVE : No new complaints verbalized pain and swelling right foot improved No fever PHYSICAL EXAM : GENERAL: SKIN: Warm and dry. HEAD: Normocephalic. EYES: No scleral icterus. No injection or drainage. NECK: Supple, trachea midline. No JVD or lymphadenopathy. CARDIOVASCULAR: Regular rate and rhythm without murmurs, gallops, or rubs. RESPIRATORY: Breath sounds equal bilaterally. No accessory muscle use. GASTROINTESTINAL: Abdomen soft, non-tender, nondistended. MUSCULOSKELETAL: No cyanosis, or edema. Mild swelling , erythema Right foot . Wound on the dorsum of the right foot is packed with gauze - I was unable to express pus BACK: Nontender without obvious deformity. No CVA tenderness. NEURO: alert , orientated CLINICAL IMPRESSION: Septicemia due to MSSA , likely secondary to right foot infection , rule out Endocarditis Diabetic foot infection , right foot Cellulitis / Abscess with foot , s/p I &D at the bedside Acute Osteomyelitis right foot , early Staph aureus infection right foot , ? MRSA Poorly controlled Diabetes mellitus TTE - no vegetations RECOMMENDATIONS: Discontinue iv zosyn and iv vancomycin Start IV cefazolin 2g q8 hours - Monitor final culture results - right foot : if need be , I would adjust antibiotics again Check blood cultures every other day until negative I suspect further debridement of the right foot to viable tissue and bone will be required before the right foot infection fully resolves Podiatry surgery evaluation and management in progress Will follow Harjit Renee MD May 12, 2017 10:18
--- NOTE | 2017-05-12 10:47 | HHI.PR ---
Subjective Remarks Follow-up septicemia with MSSA/right diabetic foot infection/foot cellulitis/DKA 05/12/17-patient seen and examined, spiking fevers with MAXIMUM TEMPERATURE 100.8. Denies any changes. Objective Vitals Vital Signs Date Time Temp Pulse Resp B/P (MAP) Pulse Ox O2 Delivery O2 Flow Rate FiO2 05/12/17 08:12 94 05/12/17 06:00 82 05/12/17 04:00 100.3 83 18 103/59 (74) 95 05/12/17 04:00 83 05/12/17 02:00 95 05/12/17 00:00 91 05/12/17 00:00 99.8 91 20 106/58 (74) 94 05/11/17 22:00 97 05/11/17 20:00 101.2 109 18 114/65 (81) 95 05/11/17 20:00 109 05/11/17 18:00 91 05/11/17 16:00 99.9 82 96/53 (67) 96 05/11/17 16:00 82 05/11/17 15:02 102.9 05/11/17 14:00 99 05/11/17 12:00 92 05/11/17 12:00 98.6 92 18 125/62 (83) 94 I/O 05/11/17 05/11/17 05/11/17 05/12/17 05/12/17 05/12/17 07:00 15:00 23:00 07:00 15:00 23:00 Intake Total 550 ml 1525 ml 550 ml Output Total 1150 ml 600 ml 1250 ml Balance -600 ml 925 ml -700 ml Intake Oral 500 ml 960 ml 500 ml IV Total 50 ml 565 ml 50 ml Output Urine Total 1150 ml 600 ml 1250 ml # Bowel Movements 0 0 0 Result Diagram: 05/12/17 0515 05/11/17 1643 Imaging Last Impressions Foot MRI 05/09/17 0000 Signed Impressions: Service Date/Time: Tuesday, May 09, 2017 15:29 - CONCLUSION: Abnormal head of the fifth metatarsal suggestive of edema and cortical enhancement associated with soft tissue swelling. Early osteomyelitis suspect. Jordan Tovar MD Head CT 05/08/17 0000 Signed Impressions: Service Date/Time: April 14:16 - CONCLUSION: 1. No acute intracranial abnormality is identified. Raghavendra Lim MD Foot X-Ray 05/08/17 0000 Signed Impressions: Service Date/Time: April 11:18 - CONCLUSION: 1. Soft tissue swelling lateral foot near the fifth MTP. No acute bony abnormality. No radiopaque foreign body. Francisco Grider MD Objective Remarks GENERAL: NAD SKIN: Warm and dry. Dressing over right foot HEAD: Normocephalic. EYES: No scleral icterus. No injection or drainage. NECK: Supple, trachea midline. No JVD or lymphadenopathy. CARDIOVASCULAR: Regular rate and rhythm without murmurs, gallops, or rubs. RESPIRATORY: Breath sounds equal bilaterally. No accessory muscle use. GASTROINTESTINAL: Abdomen soft, non-tender, nondistended. MUSCULOSKELETAL: No cyanosis, or edema. BACK: Nontender without obvious deformity. No CVA tenderness. A/P Problem List: (1) Thrombocytosis ICD Code: D47.3 - Essential (hemorrhagic) thrombocythemia (2) Normocytic anemia ICD Code: D64.9 - Anemia, unspecified (3) Leukocytosis ICD Code: D72.829 - Elevated white blood cell count, unspecified (4) Diabetic foot ulcer associated with type 2 diabetes mellitus, with fat layer exposed ICD Code: E11.621 - Type 2 diabetes mellitus with foot ulcer; L97.502 - Non- pressure chronic ulcer of other part of unspecified foot with fat layer exposed (5) Acute kidney injury ICD Code: N17.9 - Acute kidney failure, unspecified (6) Hyperosmolar non-ketotic state in patient with type 2 diabetes mellitus ICD Code: E11.01 - Type 2 diabetes mellitus with hyperosmolarity with coma (7) Dehydration with hyponatremia ICD Code: E87.1 - Hypo-osmolality and hyponatremia (8) Toxic metabolic encephalopathy ICD Code: G92 - Toxic encephalopathy (9) Septic shock ICD Code: A41.9 - Sepsis, unspecified organism; R65.21 - Severe sepsis with septic shock (10) Severe sepsis ICD Code: A41.9 - Sepsis, unspecified organism; R65.20 - Severe sepsis without septic shock Assessment and Plan 56-year-old man with Septicemia with MSSA Right diabetic foot infection/cellulitis Status post vancomycin and Zosyn 05/12/17 Started on Ancef 2 g IV every 8 hour today and continue to monitor cultures Appreciate input from a fissure disease specialist Right foot abscess with ulcer stage III with cellulitis Appreciate input from podiatry Status post I&D, patient will need more debridement in the OR likely Continue current IV antibiotics Hyperosmolar nonketotic state in patient with type 2 diabetes Currently on Levemir 10 units twice a day and insulin sliding scale Hyponatremia Resolved Septic shock Resolved DVT prophylaxis: Bilateral SCDs Transfer patient to [facility] Problem Qualifiers (1) Leukocytosis: Qualified Codes: D72.829 - Elevated white blood cell count, unspecified (2) Diabetic foot ulcer associated with type 2 diabetes mellitus, with fat layer exposed: Qualified Codes: E11.621 - Type 2 diabetes mellitus with foot ulcer; L97.512 - Non-pressure chronic ulcer of other part of right foot with fat layer exposed Jairon Roberts MD May 12, 2017 10:47
[2017-05-12] MEDS: ceFAZolin 2 GM PREMIX 50 ML IV SCH ×2 (11:50→18:38)
[2017-05-12] MEDS: ACETAMINOPHEN/HYDROcodone 325 MG/5 MG TAB PO PRN ×4 (12:52→21:03)
[2017-05-12] MEDS: MAGNESIUM HYDROXIDE SUSP 30 ML CUP PO PRN (21:02)
[2017-05-12] MEDS ORDERED: PHARMACY ORDERED LAB ONE (21:45)
[2017-05-13] VITALS (10 sets, daily range): BP systolic 103–132; BP diastolic 59–74; PULSE 88–105; RESP 17–20; TEMP 97.9–101.9; O2SAT 93–98
[2017-05-13] MEDS: MORPHINE SULFATE 4 MG/ML INJ IV PUSH PRN ×2 (02:39→07:33)
[2017-05-13] MEDS: CHLORHEXIDINE GLUCONATE 2 % 1 PACK (2 CLOTHS) TOP SCH (02:40)
[2017-05-13] MEDS: ceFAZolin 2 GM PREMIX 50 ML IV SCH ×3 (02:40→17:33)
[2017-05-13] MEDS: ACETAMINOPHEN 325 MG TAB PO PRN ×2 (04:05→15:44)
[2017-05-13] MEDS: FAMOTIDINE 20 MG TAB PO SCH ×2 (07:32→20:14)
--- NOTE | 2017-05-13 07:32 | HHI.IDPN ---
Note Infectious Disease Note ID [employer]OVERAGE FOR [facility] BROWN Vital Signs Date Time Temp Pulse Resp B/P (MAP) Pulse Ox O2 Delivery O2 Flow Rate FiO2 05/12/17 08:12 94 05/12/17 06:00 82 05/12/17 04:00 100.3 83 18 103/59 (74) 95 05/12/17 04:00 83 05/12/17 02:00 95 05/12/17 00:00 91 05/12/17 00:00 99.8 91 20 106/58 (74) 94 05/11/17 22:00 97 05/11/17 20:00 101.2 109 18 114/65 (81) 95 05/11/17 20:00 109 05/11/17 18:00 91 05/11/17 16:00 99.9 82 96/53 (67) 96 05/11/17 16:00 82 05/11/17 15:02 102.9 05/11/17 14:00 99 05/11/17 12:00 92 05/11/17 12:00 98.6 92 18 125/62 (83) 94 Laboratory Tests Test 05/11/17 16:43 05/12/17 05:15 White Blood Count 17.1 TH/MM3 18.7 TH/MM3 Red Blood Count 3.63 MIL/MM3 3.80 MIL/MM3 Hemoglobin 9.9 GM/DL 10.3 GM/DL Hematocrit 29.9 % 31.3 % Mean Corpuscular Volume 82.4 FL 82.4 FL Mean Corpuscular Hemoglobin 27.2 PG 27.1 PG Mean Corpuscular Hemoglobin Concent 33.1 % 32.9 % Red Cell Distribution Width 12.7 % 12.7 % Platelet Count 371 TH/MM3 338 TH/MM3 Mean Platelet Volume 7.3 FL 7.3 FL Neutrophils (%) (Auto) 79.8 % 79.2 % Lymphocytes (%) (Auto) 12.8 % 12.0 % Monocytes (%) (Auto) 5.3 % 6.9 % Eosinophils (%) (Auto) 0.7 % 1.2 % Basophils (%) (Auto) 1.4 % 0.7 % Neutrophils # (Auto) 13.6 TH/MM3 14.8 TH/MM3 Lymphocytes # (Auto) 2.2 TH/MM3 2.2 TH/MM3 Monocytes # (Auto) 0.9 TH/MM3 1.3 TH/MM3 Eosinophils # (Auto) 0.1 TH/MM3 0.2 TH/MM3 Basophils # (Auto) 0.2 TH/MM3 0.1 TH/MM3 CBC Comment DIFF FINAL DIFF FINAL Differential Comment Blood Urea Nitrogen 16 MG/DL Creatinine 0.93 MG/DL Random Glucose 214 MG/DL Calcium Level 7.9 MG/DL Sodium Level 137 MEQ/L Potassium Level 3.7 MEQ/L Chloride Level 104 MEQ/L Carbon Dioxide Level 27.7 MEQ/L Anion Gap 5 MEQ/L Estimat Glomerular Filtration Rate 83 ML/MIN Vancomycin Level Trough 5.1 MCG/ML Laboratory Tests Test 05/11/17 16:43 05/12/17 05:15 White Blood Count 17.1 TH/MM3 18.7 TH/MM3 Red Blood Count 3.63 MIL/MM3 3.80 MIL/MM3 Hemoglobin 9.9 GM/DL 10.3 GM/DL Hematocrit 29.9 % 31.3 % Mean Corpuscular Volume 82.4 FL 82.4 FL Mean Corpuscular Hemoglobin 27.2 PG 27.1 PG Mean Corpuscular Hemoglobin Concent 33.1 % 32.9 % Red Cell Distribution Width 12.7 % 12.7 % Platelet Count 371 TH/MM3 338 TH/MM3 Mean Platelet Volume 7.3 FL 7.3 FL Neutrophils (%) (Auto) 79.8 % 79.2 % Lymphocytes (%) (Auto) 12.8 % 12.0 % Monocytes (%) (Auto) 5.3 % 6.9 % Eosinophils (%) (Auto) 0.7 % 1.2 % Basophils (%) (Auto) 1.4 % 0.7 % Neutrophils # (Auto) 13.6 TH/MM3 14.8 TH/MM3 Lymphocytes # (Auto) 2.2 TH/MM3 2.2 TH/MM3 Monocytes # (Auto) 0.9 TH/MM3 1.3 TH/MM3 Eosinophils # (Auto) 0.1 TH/MM3 0.2 TH/MM3 Basophils # (Auto) 0.2 TH/MM3 0.1 TH/MM3 CBC Comment DIFF FINAL DIFF FINAL Differential Comment Laboratory Tests Test 05/11/17 16:43 Blood Urea Nitrogen 16 MG/DL Creatinine 0.93 MG/DL Random Glucose 214 MG/DL Calcium Level 7.9 MG/DL Sodium Level 137 MEQ/L Potassium Level 3.7 MEQ/L Chloride Level 104 MEQ/L Carbon Dioxide Level 27.7 MEQ/L Anion Gap 5 MEQ/L Estimat Glomerular Filtration Rate 83 ML/MIN Microbiology Date/Time Source Procedure Growth Status 05/11/17 16:43 Blood Peripheral Aerobic Blood Culture Pending Received 05/11/17 16:43 Blood Peripheral Anaerobic Blood Culture Pending Received 05/11/17 16:35 Blood Peripheral Aerobic Blood Culture Pending Received 05/11/17 16:35 Blood Peripheral Anaerobic Blood Culture Pending Received 05/10/17 09:42 Wound Foot Gram Stain - Final Resulted 05/10/17 09:42 Wound Culture - Preliminary Staphylococcus Aureus Resulted SUBJECTIVE : No new complaints verbalized pain and swelling right foot improved No fever PHYSICAL EXAM : GENERAL: SKIN: Warm and dry. HEAD: Normocephalic. EYES: No scleral icterus. No injection or drainage. NECK: Supple, trachea midline. No JVD or lymphadenopathy. CARDIOVASCULAR: Regular rate and rhythm without murmurs, gallops, or rubs. RESPIRATORY: Breath sounds equal bilaterally. No accessory muscle use. GASTROINTESTINAL: Abdomen soft, non-tender, nondistended. MUSCULOSKELETAL: No cyanosis, or edema. Mild swelling , erythema Right foot . Wound on the dorsum of the right foot is packed with gauze - I was unable to express pus BACK: Nontender without obvious deformity. No CVA tenderness. NEURO: alert , orientated CLINICAL IMPRESSION: Septicemia due to MSSA , likely secondary to right foot infection , rule out Endocarditis Diabetic foot infection , right foot Cellulitis / Abscess with foot , s/p I &D at the bedside Acute Osteomyelitis right foot , early Staph aureus infection right foot , ? MRSA Poorly controlled Diabetes mellitus TTE - no vegetations RECOMMENDATIONS: Continue IV cefazolin 2g q8 hours - Check blood cultures every other day until negative I suspect further debridement of the right foot to viable tissue and bone will be required before the right foot infection fully resolves Podiatry surgery evaluation and management in progress Will follow Harjit Renee MD May 13, 2017 07:32
[2017-05-13] MEDS: HEPARIN SODIUM - SQ 10,000 UNITS/ML VIAL SQ SCH ×2 (07:33→20:14)
[2017-05-13 08:03] LABS: AUTOMATED NEUTROPHIL # 13.8 TH/MM3 (1.8-7.7); BASOPHIL # 0.2 TH/MM3 (0-0.2); BASOPHIL % 1.4 % (0.0-2.0); EOSINOPHIL # 0.1 TH/MM3 (0-0.4); EOSINOPHIL % 0.6 % (0.0-4.0); HEMO FLAGS DIFF FINAL; LYMPH % 9.1 % (9.0-44.0); LYMPHOCYTE # 1.6 TH/MM3 (1.0-4.8); MEAN CELL VOLUME 81.8 FL (80.0-100.0); MEAN CORPUSCULAR HEMOGLOBIN 27.5 PG (27.0-34.0); MEAN CORPUSCULAR HGB CONC 33.6 % (32.0-36.0); MONO % 8.4 % (0.0-8.0); NEUT % 80.5 % (16.0-70.0); PLATELET COUNT 305 TH/MM3 (150-450); RED BLOOD COUNT 3.55 MIL/MM3 (4.50-5.90); RED CELL DISTRIBUTION WIDTH 12.3 % (11.6-17.2); WHITE BLOOD COUNT 17.1 TH/MM3 (4.0-11.0)
[2017-05-13] MEDS: SODIUM CHLORIDE 0.9% FLUSH 10 ML FLUSH IV FLUSH SCH ×2 (09:30→20:21)
[2017-05-13] MEDS: INSULIN DETEMIR 100 UNITS/ML VIAL SQ SCH ×2 (09:30→20:14)
[2017-05-13] MEDS: INSULIN NovoLIN REGULAR SUPPLEMENTAL SCALE SQ SCH ×4 (09:34→20:20)
[2017-05-13] MEDS: MAGNESIUM HYDROXIDE SUSP 30 ML CUP PO PRN (09:38)
--- NOTE | 2017-05-13 09:43 | HHI.PR ---
Subjective Remarks Follow-up septicemia with MSSA/right diabetic foot infection/foot cellulitis/DKA 05/12/17-patient seen and examined, spiking fevers with MAXIMUM TEMPERATURE 100.8. Denies any changes. 05/13/17-patient seen and examined, Tmax 100.5 at 4 AM, no other issues Objective Vitals Vital Signs Date Time Temp Pulse Resp B/P (MAP) Pulse Ox O2 Delivery O2 Flow Rate FiO2 05/13/17 09:35 96 05/13/17 08:00 99.1 95 18 125/69 (87) 97 05/13/17 05:08 99.8 05/13/17 04:52 95 05/13/17 04:00 100.5 105 17 126/72 (90) 95 05/13/17 00:00 97.9 88 17 103/59 (74) 98 05/12/17 20:00 100.0 95 17 109/59 (76) 97 05/12/17 16:00 100.8 98 21 147/87 (107) 98 05/12/17 12:00 95 05/12/17 12:00 99.6 93 16 112/64 (80) 99 05/12/17 10:18 19 I/O 05/12/17 05/12/17 05/12/17 05/13/17 05/13/17 05/13/17 07:00 15:00 23:00 07:00 15:00 23:00 Intake Total 550 ml 361 ml 50 ml 240 ml Output Total 1250 ml 900 ml 450 ml Balance -700 ml 361 ml -850 ml -210 ml Intake Oral 500 ml 240 ml IV Total 50 ml 361 ml 50 ml Output Urine Total 1250 ml 900 ml 450 ml # Bowel Movements 0 Result Diagram: 05/13/17 0618 05/11/17 1643 Objective Remarks GENERAL: NAD SKIN: Warm and dry. Dressing over right foot HEAD: Normocephalic. EYES: No scleral icterus. No injection or drainage. NECK: Supple, trachea midline. No JVD or lymphadenopathy. CARDIOVASCULAR: Regular rate and rhythm without murmurs, gallops, or rubs. RESPIRATORY: Breath sounds equal bilaterally. No accessory muscle use. GASTROINTESTINAL: Abdomen soft, non-tender, nondistended. MUSCULOSKELETAL: No cyanosis, or edema. BACK: Nontender without obvious deformity. No CVA tenderness. A/P Problem List: (1) Thrombocytosis ICD Code: D47.3 - Essential (hemorrhagic) thrombocythemia (2) Normocytic anemia ICD Code: D64.9 - Anemia, unspecified (3) Leukocytosis ICD Code: D72.829 - Elevated white blood cell count, unspecified (4) Diabetic foot ulcer associated with type 2 diabetes mellitus, with fat layer exposed ICD Code: E11.621 - Type 2 diabetes mellitus with foot ulcer; L97.502 - Non- pressure chronic ulcer of other part of unspecified foot with fat layer exposed (5) Acute kidney injury ICD Code: N17.9 - Acute kidney failure, unspecified (6) Hyperosmolar non-ketotic state in patient with type 2 diabetes mellitus ICD Code: E11.01 - Type 2 diabetes mellitus with hyperosmolarity with coma (7) Dehydration with hyponatremia ICD Code: E87.1 - Hypo-osmolality and hyponatremia (8) Toxic metabolic encephalopathy ICD Code: G92 - Toxic encephalopathy (9) Septic shock ICD Code: A41.9 - Sepsis, unspecified organism; R65.21 - Severe sepsis with septic shock (10) Severe sepsis ICD Code: A41.9 - Sepsis, unspecified organism; R65.20 - Severe sepsis without septic shock Assessment and Plan 56-year-old man with Septicemia with MSSA Right diabetic foot infection/cellulitis Status post vancomycin and Zosyn 05/12/17 Currently on Ancef 2 g IV every 8 hour pending repeat culture report Appreciate input from a fissure disease specialist Right foot abscess with ulcer stage III with cellulitis Appreciate input from podiatry Status post I&D, patient will need more debridement in the OR likely within next few days pending report of repeat cultures Continue current IV antibiotics pending repeat culture report Hyperosmolar nonketotic state in patient with type 2 diabetes Currently on Levemir 10 units twice a day and insulin sliding scale Hyponatremia Resolved Septic shock Resolved DVT prophylaxis: Bilateral SCDs Problem Qualifiers (1) Leukocytosis: Qualified Codes: D72.829 - Elevated white blood cell count, unspecified (2) Diabetic foot ulcer associated with type 2 diabetes mellitus, with fat layer exposed: Qualified Codes: E11.621 - Type 2 diabetes mellitus with foot ulcer; L97.512 - Non-pressure chronic ulcer of other part of right foot with fat layer exposed Jairon Roberts MD May 13, 2017 09:43
[2017-05-13] MEDS: BACITRACIN TOP OINT 15 GM TUBE TOPICAL SCH (11:57)
[2017-05-13] MEDS: ACETAMINOPHEN/HYDROcodone 325 MG/5 MG TAB PO PRN (17:10)
--- NOTE | 2017-05-13 20:15 | PD.POD ---
Subjective Podiatric Problems R foot abscess/OM Seen at bedside this am with nursing staff. Alert and oriented x 3. Pain score: 0 Past Med/Surg/Social History Social History Smoking Status: Current Every Day Smoker Objective Vital Signs Vital Signs Date Time Temp Pulse Resp B/P (MAP) Pulse Ox O2 Delivery O2 Flow Rate FiO2 05/13/17 17:36 97 21 05/13/17 16:00 101.9 101 20 132/74 (93) 97 05/13/17 12:00 100.6 94 18 127/70 (89) 97 05/13/17 09:35 96 05/13/17 08:00 99.1 95 18 125/69 (87) 97 05/13/17 05:08 99.8 05/13/17 04:52 95 05/13/17 04:00 100.5 105 17 126/72 (90) 95 05/13/17 00:00 97.9 88 17 103/59 (74) 98 Coded Allergies: No Known Allergies (Unverified , 05/08/17) Other Results Laboratory Tests Test 05/08/17 10:41 05/08/17 10:50 05/08/17 15:30 05/09/17 04:59 Blood Gas Puncture Site IV Blood Gas Patient Temperature 98.6 Venous Blood pH 7.54 Venous Blood Partial Pressure CO2 22 mmHg Venous Blood Partial Pressure O2 54 mmHg Venous Blood HCO3 18 mmol/L Venous Blood Oxygen Saturation 89 % Venous Blood Oxygen Content 14.6 Vol % Venous Blood Base Excess -4.1 mmol/L Blood Gas Inspired Oxygen 21 % Urine Color STRAW Urine Turbidity CLEAR Urine pH 5.5 Urine Specific [place] 1.025 Urine Protein NEG mg/dL Urine Glucose (UA) 1000 mg/dL Urine Ketones NEG mg/dL Urine Occult Blood NEG Urine Nitrite NEG Urine Bilirubin NEG Urine Urobilinogen LESS THAN 2.0 MG/DL Urine Leukocyte Esterase NEG Urine RBC 1 /hpf Urine WBC 10 /hpf Urine Squamous Epithelial Cells <1 /hpf Microscopic Urinalysis Comment CULTURE INDICATED Troponin I LESS THAN 0.02 NG/ML Nasal Screen MRSA (PCR) MRSA NOT DETECTED Hemoglobin A1c 15.5 % Triglycerides Level 275 MG/DL Cholesterol Level 149 MG/DL LDL Cholesterol 59 MG/DL HDL Cholesterol 34.8 MG/DL Cholesterol/HDL Ratio 4.28 RATIO B-Hydroxybutyrate 2.96 MMOL/L Test 05/09/17 05:45 05/10/17 04:13 05/11/17 16:43 05/13/17 06:18 Lactic Acid Level 0.9 mmol/L Random Vancomycin Level 6.0 COMMENT Blood Urea Nitrogen 21 MG/DL 16 MG/DL Creatinine 0.99 MG/DL 0.93 MG/DL Random Glucose 173 MG/DL 214 MG/DL Total Protein 6.6 GM/DL Albumin 2.2 GM/DL Calcium Level 8.6 MG/DL 7.9 MG/DL Phosphorus Level 2.8 MG/DL Magnesium Level 2.2 MG/DL Alkaline Phosphatase 91 U/L Aspartate Amino Transf (AST/SGOT) 18 U/L Alanine Aminotransferase (ALT/SGPT) 14 U/L Total Bilirubin 0.2 MG/DL Sodium Level 145 MEQ/L 137 MEQ/L Potassium Level 3.5 MEQ/L 3.7 MEQ/L Chloride Level 112 MEQ/L 104 MEQ/L Carbon Dioxide Level 27.6 MEQ/L 27.7 MEQ/L Anion Gap 5 MEQ/L Estimat Glomerular Filtration Rate 83 ML/MIN Vancomycin Level Trough 5.1 MCG/ML White Blood Count 17.1 TH/MM3 Red Blood Count 3.55 MIL/MM3 Hemoglobin 9.7 GM/DL Hematocrit 29.0 % Mean Corpuscular Volume 81.8 FL Mean Corpuscular Hemoglobin 27.5 PG Mean Corpuscular Hemoglobin Concent 33.6 % Red Cell Distribution Width 12.3 % Platelet Count 305 TH/MM3 Mean Platelet Volume 7.9 FL Neutrophils (%) (Auto) 80.5 % Lymphocytes (%) (Auto) 9.1 % Monocytes (%) (Auto) 8.4 % Eosinophils (%) (Auto) 0.6 % Basophils (%) (Auto) 1.4 % Neutrophils # (Auto) 13.8 TH/MM3 Lymphocytes # (Auto) 1.6 TH/MM3 Monocytes # (Auto) 1.4 TH/MM3 Eosinophils # (Auto) 0.1 TH/MM3 Basophils # (Auto) 0.2 TH/MM3 CBC Comment DIFF FINAL Differential Comment Exam-Podiatry Dermatological Exam Ulcers: Location/Measurements RLE dorsal foot with necrotic tissue. + open drainage wound. + plantar foot with erythema and edema. DP and PT diminished. Protective sensation is absent. Assessment & Plan Diagnosis: (1) Sepsis ICD Codes: A41.9 - Sepsis, unspecified organism Status: Acute (2) Diabetic foot ulcer associated with type 2 diabetes mellitus, with fat layer exposed ICD Codes: E11.621 - Type 2 diabetes mellitus with foot ulcer; L97.502 - Non- pressure chronic ulcer of other part of unspecified foot with fat layer exposed A/P RX: Blood Flow Studies. After blood flow is completed and no vascular compromise, plan for the OR on the right foot. Consent for 1) Right foot I and D, 2) right foot bone biopsy, 3) Possible right 5th metatarsal partial amputation. Medical Clearance Per Team. Plan for IV abx per ID with likely PICC Will continue to f/u. Problem Qualifiers (1) Sepsis: Qualified Codes: A41.9 - Sepsis, unspecified organism (2) Diabetic foot ulcer associated with type 2 diabetes mellitus, with fat layer exposed: Qualified Codes: E11.621 - Type 2 diabetes mellitus with foot ulcer; L97.512 - Non-pressure chronic ulcer of other part of right foot with fat layer exposed Evelyn Dan DPM May 13, 2017 20:15
[2017-05-14] VITALS (10 sets, daily range): BP systolic 115–155; BP diastolic 61–88; PULSE 93–115; RESP 16–18; TEMP 96.2–103.1; O2SAT 92–98
[2017-05-14] MEDS: ACETAMINOPHEN 325 MG TAB PO PRN ×3 (03:34→23:44)
[2017-05-14] MEDS: ACETAMINOPHEN/HYDROcodone 325 MG/5 MG TAB PO PRN ×3 (03:34→19:28)
[2017-05-14] MEDS: CHLORHEXIDINE GLUCONATE 2 % 1 PACK (2 CLOTHS) TOP SCH (03:36)
[2017-05-14] MEDS: ceFAZolin 2 GM PREMIX 50 ML IV SCH ×3 (03:36→21:09)
[2017-05-14] MEDS ORDERED: INSULIN HUMAN REGULAR 1,000 UNITS/10 ML VIAL IV PUSH ONE (04:30)
[2017-05-14] MEDS: ONDANSETRON HCL 4 MG/2 ML VIAL IV PUSH PRN (04:41)
[2017-05-14] MEDS: INSULIN NovoLIN REGULAR SUPPLEMENTAL SCALE SQ SCH ×4 (08:00→21:20)
--- NOTE | 2017-05-14 09:44 | HHI.PR ---
Subjective Remarks Follow-up septicemia with MSSA/right diabetic foot infection/foot cellulitis/DKA 05/12/17-patient seen and examined, spiking fevers with MAXIMUM TEMPERATURE 100.8. Denies any changes. 05/13/17-patient seen and examined, Tmax 100.5 at 4 AM, no other issues 05/14/17-patient continued to spike daily fevers and reported chills overnight Objective Vitals Vital Signs Date Time Temp Pulse Resp B/P (MAP) Pulse Ox O2 Delivery O2 Flow Rate FiO2 05/14/17 05:44 96.7 05/14/17 04:00 102.2 99 17 125/73 (90) 96 05/14/17 02:45 98 05/14/17 00:00 98.3 99 17 135/72 (93) 98 05/13/17 20:00 100.3 98 17 115/61 (79) 93 05/13/17 17:36 97 21 05/13/17 16:00 101.9 101 20 132/74 (93) 97 05/13/17 12:00 100.6 94 18 127/70 (89) 97 I/O 05/13/17 05/13/17 05/13/17 05/14/17 05/14/17 05/14/17 07:00 15:00 23:00 07:00 15:00 23:00 Intake Total 240 ml 1080 ml 600 ml Output Total 450 ml 3200 ml 500 ml Balance -210 ml -2120 ml 100 ml Intake Oral 240 ml 1080 ml 600 ml Output Urine Total 450 ml 3200 ml 500 ml Result Diagram: 05/13/17 0618 05/11/17 1643 Objective Remarks GENERAL: NAD SKIN: Warm and dry. Dressing over right foot HEAD: Normocephalic. EYES: No scleral icterus. No injection or drainage. NECK: Supple, trachea midline. No JVD or lymphadenopathy. CARDIOVASCULAR: Regular rate and rhythm without murmurs, gallops, or rubs. RESPIRATORY: Breath sounds equal bilaterally. No accessory muscle use. GASTROINTESTINAL: Abdomen soft, non-tender, nondistended. MUSCULOSKELETAL: No cyanosis, or edema. BACK: Nontender without obvious deformity. No CVA tenderness. A/P Problem List: (1) Thrombocytosis ICD Code: D47.3 - Essential (hemorrhagic) thrombocythemia (2) Normocytic anemia ICD Code: D64.9 - Anemia, unspecified (3) Leukocytosis ICD Code: D72.829 - Elevated white blood cell count, unspecified (4) Diabetic foot ulcer associated with type 2 diabetes mellitus, with fat layer exposed ICD Code: E11.621 - Type 2 diabetes mellitus with foot ulcer; L97.502 - Non- pressure chronic ulcer of other part of unspecified foot with fat layer exposed (5) Acute kidney injury ICD Code: N17.9 - Acute kidney failure, unspecified (6) Hyperosmolar non-ketotic state in patient with type 2 diabetes mellitus ICD Code: E11.01 - Type 2 diabetes mellitus with hyperosmolarity with coma (7) Dehydration with hyponatremia ICD Code: E87.1 - Hypo-osmolality and hyponatremia (8) Toxic metabolic encephalopathy ICD Code: G92 - Toxic encephalopathy (9) Septic shock ICD Code: A41.9 - Sepsis, unspecified organism; R65.21 - Severe sepsis with septic shock (10) Severe sepsis ICD Code: A41.9 - Sepsis, unspecified organism; R65.20 - Severe sepsis without septic shock Assessment and Plan 56-year-old man with Septicemia with MSSA Right diabetic foot infection/cellulitis Intermittent febrile episodes Status post vancomycin and Zosyn 05/12/17 Continue Ancef 2 g IV every 8 hour pending repeat culture report Appreciate input from a fissure disease specialist Right foot abscess with ulcer stage III with cellulitis Appreciate input from podiatry Status post I&D, patient will need more debridement in the OR likely within next few days pending report of repeat cultures Continue current IV antibiotics pending repeat culture report Hyperosmolar nonketotic state in patient with type 2 diabetes Currently on Levemir 10 units twice a day and insulin sliding scale Hyponatremia Resolved Septic shock Resolved DVT prophylaxis: Bilateral SCDs Problem Qualifiers (1) Leukocytosis: Qualified Codes: D72.829 - Elevated white blood cell count, unspecified (2) Diabetic foot ulcer associated with type 2 diabetes mellitus, with fat layer exposed: Qualified Codes: E11.621 - Type 2 diabetes mellitus with foot ulcer; L97.512 - Non-pressure chronic ulcer of other part of right foot with fat layer exposed Jairon Roberts MD May 14, 2017 09:44
[2017-05-14] MEDS: SODIUM CHLORIDE 0.9% FLUSH 10 ML FLUSH IV FLUSH SCH ×2 (09:56→21:09)
[2017-05-14] MEDS: FAMOTIDINE 20 MG TAB PO SCH ×2 (09:56→21:12)
[2017-05-14] MEDS: HEPARIN SODIUM - SQ 10,000 UNITS/ML VIAL SQ SCH ×2 (09:57→21:09)
[2017-05-14] MEDS: MORPHINE SULFATE 4 MG/ML INJ IV PUSH PRN ×2 (09:57→15:02)
[2017-05-14] MEDS: INSULIN DETEMIR 100 UNITS/ML VIAL SQ SCH ×2 (09:57→21:20)
--- NOTE | 2017-05-14 11:24 | RADRPT ---
EXAM DATE/TIME: 05/13/2017 00:00 [facility] COMPARISON: No previous studies available for comparison. INDICATIONS : Sepsis, right foot ulcer, diabetes mellitus TECHNIQUE: Five-station segmental examination of the lower extremities was performed. Pulsed-cuff waveform tracings and pressures were recorded. Ankle-brachial indices and toe-brachial indices were calculated. PRESSURES (mmHg): Brachial (arm): Right IV SITE Left 103 Lower Thigh: Right 124 Left 138 Calf: Right 174 Left 205 Ankle: Right 98 Left CNO>220 Toe: Right 45 Left 59 KHADRA: Right 0.95 Left CNO TBI: Right 0.44 Left 0.57 PULSED CUFF WAVEFORMS: Decreased amplitude in the ankles bilaterally. CONCLUSION: 1. Findings most consistent with moderate runoff disease bilaterally. Lupillo Webster MD on May 14, 2017 at 11:14 Board Certified Radiologist. This report was verified electronically.
[2017-05-14] MEDS: BACITRACIN TOP OINT 15 GM TUBE TOPICAL SCH (15:18)
--- NOTE | 2017-05-14 17:04 | PD.VS.CON ---
History of Present Illness Chief Complaint: R foot ulcer Consult Requested by: Medical team History of Present Illness 56 yo male with R foot ulcer, admitted several days ago with DKA and was in ICU with BS reportedly around 1999. He is now awake and alert. He says he has had a R foot wound since November that has not healed. He denies fevers and notes pain in the R foot. Podiatry has performed some drainage but we were consulted to evaluate the perfusion. Past/Family/Social History Past Medical History DM renal stones Past Surgical History kidney stone surgery Social History + tobacco Family History NC Home Medications Reported Medications Metformin (Metformin) 850 Mg Tab, 850 MG PO BIDPC for Blood Sugar Management, TAB 0 Refills With meals 05/08/17 Coded Allergies: No Known Allergies (Unverified , 05/08/17) Review of Systems Constitutional: COMPLAINS OF: Chills Cardiovascular: DENIES: Chest pain, Claudication Physical Exam Vitals/I&O Date Time Temp Pulse Resp B/P (MAP) Pulse Ox O2 Delivery O2 Flow Rate FiO2 05/14/17 16:00 101.2 105 16 117/61 (79) 92 05/14/17 14:30 101.2 106 16 155/88 (110) 98 05/14/17 10:00 98.4 93 18 119/68 (85) 98 05/14/17 05:44 96.7 05/14/17 04:00 102.2 99 17 125/73 (90) 96 05/14/17 02:45 98 05/14/17 00:00 98.3 99 17 135/72 (93) 98 05/13/17 20:00 100.3 98 17 115/61 (79) 93 05/13/17 17:36 97 21 05/14/17 05/14/17 05/14/17 06:59 14:59 22:59 Intake Total 600 ml 240 ml 720 ml Output Total 500 ml 700 ml Balance 100 ml 240 ml 20 ml Neuro: alert, conversant HEENT: NC/AT; poor dentition Neck: no JVD; trachea midline Heart: reg rate, no M Lungs: clear B Vascular: palpable femoral and pedal pulses Extremities: R foot with erythema mid foot plantar surface and dorsal surface + drainage Date/Time Source Procedure Growth Status 05/11/17 16:43 Blood Peripheral Aerobic Blood Culture - Preliminary NO GROWTH IN 3 DAYS Resulted 05/11/17 16:43 Blood Peripheral Anaerobic Blood Culture - Preliminary NO GROWTH IN 3 DAYS Resulted 05/08/17 10:50 Urine Clean Catch Urine Culture - Final Staphylococcus Aureus Complete 05/10/17 09:42 Wound Foot Gram Stain - Final Complete 05/10/17 09:42 Wound Culture - Final Staphylococcus Aureus Complete Assessment and Plan Plan Minimal PAD with palpable pulses and ABIs 0.95. My assessment of the foot is that it needs better drainage, likely to be done in the OR. Will defer to podiatry but happy to help if needed. Will follow. Hector Nuñez MD FACS [employer] nursing home assistant administrator [facility] - [facility] V[facility] at [facility] [phone] Hector Nuñez MD May 14, 2017 17:04
--- NOTE | 2017-05-14 21:17 | PD.POD ---
Subjective Podiatric Problems R foot abscess/OM Seen at bedside this pm with his in the room. . Pain score: 0 Past Med/Surg/Social History Social History Smoking Status: Current Every Day Smoker Objective Vital Signs Vital Signs Date Time Temp Pulse Resp B/P (MAP) Pulse Ox O2 Delivery O2 Flow Rate FiO2 05/14/17 18:15 100.4 109 18 143/73 (96) 98 05/14/17 16:00 101.2 105 16 117/61 (79) 92 05/14/17 14:30 101.2 106 16 155/88 (110) 98 05/14/17 10:00 98.4 93 18 119/68 (85) 98 05/14/17 05:44 96.7 05/14/17 04:00 102.2 99 17 125/73 (90) 96 05/14/17 02:45 98 05/14/17 00:00 98.3 99 17 135/72 (93) 98 Coded Allergies: No Known Allergies (Unverified , 05/08/17) Objective Remarks Laboratory Tests Test 05/13/17 06:18 White Blood Count 17.1 TH/MM3 Red Blood Count 3.55 MIL/MM3 Hemoglobin 9.7 GM/DL Hematocrit 29.0 % Mean Corpuscular Volume 81.8 FL Mean Corpuscular Hemoglobin 27.5 PG Mean Corpuscular Hemoglobin Concent 33.6 % Red Cell Distribution Width 12.3 % Platelet Count 305 TH/MM3 Mean Platelet Volume 7.9 FL Neutrophils (%) (Auto) 80.5 % Lymphocytes (%) (Auto) 9.1 % Monocytes (%) (Auto) 8.4 % Eosinophils (%) (Auto) 0.6 % Basophils (%) (Auto) 1.4 % Neutrophils # (Auto) 13.8 TH/MM3 Lymphocytes # (Auto) 1.6 TH/MM3 Monocytes # (Auto) 1.4 TH/MM3 Eosinophils # (Auto) 0.1 TH/MM3 Basophils # (Auto) 0.2 TH/MM3 CBC Comment DIFF FINAL Differential Comment Exam-Podiatry Dermatological Exam Ulcers: Location/Measurements RLE worsening erythema and plantar edema. No streaking. NVS unchanged. Assessment & Plan Diagnosis: (1) Sepsis ICD Codes: A41.9 - Sepsis, unspecified organism Status: Acute (2) Diabetic foot ulcer associated with type 2 diabetes mellitus, with fat layer exposed ICD Codes: E11.621 - Type 2 diabetes mellitus with foot ulcer; L97.502 - Non- pressure chronic ulcer of other part of unspecified foot with fat layer exposed A/P RX: Blood Flow Studies, completed and Vascular consult completed and no intervention needed. To OR on05/15/17 at 4 pm. Consent for 1) Right foot I and D, 2) Possible right foot bone biopsy, 3) Possible right 5th metatarsal partial amputation. Medical Clearance Per Team. Plan for IV abx per ID with likely PICC Discussed with nursing at 21:17 Problem Qualifiers (1) Sepsis: Qualified Codes: A41.9 - Sepsis, unspecified organism (2) Diabetic foot ulcer associated with type 2 diabetes mellitus, with fat layer exposed: Qualified Codes: E11.621 - Type 2 diabetes mellitus with foot ulcer; L97.512 - Non-pressure chronic ulcer of other part of right foot with fat layer exposed Evelyn Dan DPM May 14, 2017 21:17
[2017-05-15] VITALS (7 sets, daily range): BP systolic 102–143; BP diastolic 55–82; PULSE 80–115; RESP 18–23; TEMP 97–103.3; O2SAT 95–97
[2017-05-15] MEDS: ceFAZolin 2 GM PREMIX 50 ML IV SCH ×3 (03:00→19:00)
[2017-05-15 04:00] LABS: AUTOMATED NEUTROPHIL # 20.1 TH/MM3 (1.8-7.7); BASOPHIL # 0.1 TH/MM3 (0-0.2); BASOPHIL % 0.4 % (0.0-2.0); EOSINOPHIL # 0.1 TH/MM3 (0-0.4); EOSINOPHIL % 0.6 % (0.0-4.0); HEMATOCRIT 30.6 % (39.0-51.0); HEMO FLAGS DIFF FINAL; LYMPHOCYTE # 1.9 TH/MM3 (1.0-4.8); MEAN CORPUSCULAR HEMOGLOBIN 27.4 PG (27.0-34.0); MONO % 6.5 % (0.0-8.0); NEUT % 84.5 % (16.0-70.0); PLATELET COUNT 323 TH/MM3 (150-450); RED BLOOD COUNT 3.69 MIL/MM3 (4.50-5.90); RED CELL DISTRIBUTION WIDTH 12.6 % (11.6-17.2); WHITE BLOOD COUNT 23.8 TH/MM3 (4.0-11.0)
[2017-05-15] MEDS: CHLORHEXIDINE GLUCONATE 2 % 1 PACK (2 CLOTHS) TOP SCH (04:00)
[2017-05-15 04:11] LABS: BICARBONATE 27.6 MEQ/L (21.0-32.0)
[2017-05-15] MEDS: HEPARIN SODIUM - SQ 10,000 UNITS/ML VIAL SQ SCH ×2 (09:00→21:00)
[2017-05-15] MEDS: MORPHINE SULFATE 4 MG/ML INJ IV PUSH PRN ×4 (09:20→22:16)
[2017-05-15] MEDS: SODIUM CHLORIDE 0.9% FLUSH 10 ML FLUSH IV FLUSH SCH ×2 (09:20→21:00)
[2017-05-15] MEDS: FAMOTIDINE 20 MG TAB PO SCH ×2 (09:20→21:00)
[2017-05-15] MEDS: BACITRACIN TOP OINT 15 GM TUBE TOPICAL SCH (09:21)
--- NOTE | 2017-05-15 09:44 | HHI.PR ---
Subjective Remarks Follow-up septicemia with MSSA/right diabetic foot infection/foot cellulitis/DKA 05/12/17-patient seen and examined, spiking fevers with MAXIMUM TEMPERATURE 100.8. Denies any changes. 05/13/17-patient seen and examined, Tmax 100.5 at 4 AM, no other issues 05/14/17-patient continued to spike daily fevers and reported chills overnight 05/15/17-patient seen and examined, he has been spiking fevers since 2:30 PM yesterday Objective Vitals Vital Signs Date Time Temp Pulse Resp B/P (MAP) Pulse Ox O2 Delivery O2 Flow Rate FiO2 05/15/17 04:00 102.7 107 18 103/55 (71) 96 05/15/17 00:50 101.4 05/14/17 23:44 103.1 115 17 115/72 (86) 96 05/14/17 21:05 16 05/14/17 20:00 101.4 102 18 129/68 (88) 96 05/14/17 18:15 100.4 109 18 143/73 (96) 98 05/14/17 16:00 101.2 105 16 117/61 (79) 92 05/14/17 14:30 101.2 106 16 155/88 (110) 98 05/14/17 10:00 98.4 93 18 119/68 (85) 98 I/O 05/14/17 05/14/17 05/14/17 05/15/17 05/15/17 05/15/17 07:00 15:00 23:00 07:00 15:00 23:00 Intake Total 600 ml 480 ml 480 ml Output Total 500 ml 1000 ml 500 ml Balance 100 ml 480 ml -520 ml -500 ml Intake Oral 600 ml 480 ml 480 ml Output Urine Total 500 ml 1000 ml 500 ml Result Diagram: 05/15/17 0240 05/15/17 0240 Objective Remarks GENERAL: NAD SKIN: Warm and dry. Dressing over right foot HEAD: Normocephalic. EYES: No scleral icterus. No injection or drainage. NECK: Supple, trachea midline. No JVD or lymphadenopathy. CARDIOVASCULAR: Regular rate and rhythm without murmurs, gallops, or rubs. RESPIRATORY: Breath sounds equal bilaterally. No accessory muscle use. GASTROINTESTINAL: Abdomen soft, non-tender, nondistended. MUSCULOSKELETAL: No cyanosis, or edema. BACK: Nontender without obvious deformity. No CVA tenderness. A/P Problem List: (1) Thrombocytosis ICD Code: D47.3 - Essential (hemorrhagic) thrombocythemia (2) Normocytic anemia ICD Code: D64.9 - Anemia, unspecified (3) Leukocytosis ICD Code: D72.829 - Elevated white blood cell count, unspecified (4) Diabetic foot ulcer associated with type 2 diabetes mellitus, with fat layer exposed ICD Code: E11.621 - Type 2 diabetes mellitus with foot ulcer; L97.502 - Non- pressure chronic ulcer of other part of unspecified foot with fat layer exposed (5) Acute kidney injury ICD Code: N17.9 - Acute kidney failure, unspecified (6) Hyperosmolar non-ketotic state in patient with type 2 diabetes mellitus ICD Code: E11.01 - Type 2 diabetes mellitus with hyperosmolarity with coma (7) Dehydration with hyponatremia ICD Code: E87.1 - Hypo-osmolality and hyponatremia (8) Toxic metabolic encephalopathy ICD Code: G92 - Toxic encephalopathy (9) Septic shock ICD Code: A41.9 - Sepsis, unspecified organism; R65.21 - Severe sepsis with septic shock (10) Severe sepsis ICD Code: A41.9 - Sepsis, unspecified organism; R65.20 - Severe sepsis without septic shock Assessment and Plan 56-year-old man with Septicemia with MSSA Right diabetic foot infection/cellulitis Intermittent febrile episodes Status post vancomycin and Zosyn 05/12/17 Continue Ancef 2 g IV every 8 hour pending repeat culture report Appreciate input from a fissure disease specialist Right foot abscess with ulcer stage III with cellulitis Appreciate input from podiatry Plan for possible Right foot I and D, 2) Possible right foot bone biopsy, 3 ) Possible right 5th metatarsal partial amputation today 05/15/17 Continue current IV antibiotic Hyperosmolar nonketotic state in patient with type 2 diabetes Currently on Levemir 10 units twice a day and insulin sliding scale Hyponatremia Resolved Septic shock Resolved DVT prophylaxis: Bilateral SCDs Problem Qualifiers (1) Leukocytosis: Qualified Codes: D72.829 - Elevated white blood cell count, unspecified (2) Diabetic foot ulcer associated with type 2 diabetes mellitus, with fat layer exposed: Qualified Codes: E11.621 - Type 2 diabetes mellitus with foot ulcer; L97.512 - Non-pressure chronic ulcer of other part of right foot with fat layer exposed Jairon Roberts MD May 15, 2017 09:44
--- NOTE | 2017-05-15 11:00 | RADRPT ---
EXAM DATE/TIME: 05/15/2017 08:47 [facility] COMPARISON: No previous studies available for comparison. INDICATIONS : Fever. MEDICAL HISTORY : Diabetes mellitus type II. SURGICAL HISTORY : None. ENCOUNTER: Initial ACUITY: 1 week PAIN SCORE: 0/10 LOCATION: chest FINDINGS: Single AP view of the chest. 1.2 cm nodular density in the lateral left mid lung zone. Cardiomediasti nal silhouette within normal limits. No evidence of pleural effusion or pneumothorax. CONCLUSION: 1.2 cm nodular density in lateral left midlung zone. Recommend chest CT without contrast to evaluate for pulmonary nodule. No other acute cardiopulmonary disease identified. Cyrus Sears MD on May 15, 2017 at 10:57 Board Certified Radiologist. This report was verified electronically.
[2017-05-15] MEDS: INSULIN NovoLIN REGULAR SUPPLEMENTAL SCALE SQ SCH ×4 (11:02→21:00)
[2017-05-15] MEDS: INSULIN DETEMIR 100 UNITS/ML VIAL SQ SCH ×2 (11:02→21:00)
[2017-05-15] MEDS ORDERED: MIDAZOLAM HCL 2 MG/2 ML VIAL IV ONE (12:00)
[2017-05-15] MEDS ORDERED: ONDANSETRON HCL 4 MG/2 ML VIAL IV PUSH ONE (12:00)
[2017-05-15] MEDS ORDERED: LIDOCAINE HCL 1% PF 5 ML AMPULE OTHER ONE (12:00)
[2017-05-15] MEDS ORDERED: PROPOFOL 200 MG/20 ML AMP IV ONE (12:00)
[2017-05-15] MEDS ORDERED: PHENYLEPH/NS 1000 MCG/10 ML SYR IV ONE (12:00)
[2017-05-15] MEDS: ACETAMINOPHEN 325 MG TAB PO PRN (12:04)
--- NOTE | 2017-05-15 16:29 | HHI.PR ---
Addendum to Inpatient Note Additional Information aeen around 1615 full note to folow fever up to 103 L foot swollen red with gangreous changes will add Marla Eastman MD May 15, 2017 16:29
[2017-05-15] MEDS ORDERED: DEXTROSE 50% IN WATER 50 ML SYRINGE ONE (16:34)
[2017-05-15] MEDS ORDERED: LIDOCAINE HCL 2% 50 ML VIAL ONE (17:14)
[2017-05-15] MEDS ORDERED: BUPIVACAINE HCL PF 0.25% 30 ML VIAL ONE (17:17)
[2017-05-15] MEDS: PIPERACIL-TAZO 3.375 GM PREMIX 50 ML IV SCH ×2 (17:25→23:23)
[2017-05-15] MEDS ORDERED: NEOMYCIN/POLYMYXIN 1 ML G.U. IRRIGANT IRRIGATION ONE (20:01)
[2017-05-15] MEDS ORDERED: ACETAMINOPHEN 1000 MG/100 ML 100 ML IV ONE (20:06)
[2017-05-15] MEDS ORDERED: DO NOT ADM ANY ANTICOAGULANT DRUGS PRN (20:31)
[2017-05-15 23:20] LABS: BLOOD, URINE NEG (NEG); GLUCOSE,URINE NEG (NEG); KETONE, URINE NEG (NEG); NITRITE,URINE NEG (NEG); PH, URINE 6.5 (5.0-8.5); SQUAMOUS EPITHELIAL CELL URINE <1 /hpf (0-5); URINE COLOR LIGHT-YELLOW (YELLW/STRAW)
--- NOTE | 2017-05-15 23:20 | HHI.IDPN ---
Subjective Subjective Remarks Delayed entry; pt was seen today prior to surgery seen around 1615 full note to folow earlier pt had a fever up to 103 co feeling hungry and some foot discomfort denies other pain Arterial study positive for moderate dz b/l 2 D echo done, no vegetations Pt denies back pain, disuria, cough, joint swelling or pain, no nausea, vomiting, no diarrhea Antibiotics cefazoline Allergies: Coded Allergies: No Known Allergies (Unverified , 05/08/17) Objective . Vital Signs Date Time Temp Pulse Resp B/P (MAP) Pulse Ox O2 Delivery O2 Flow Rate FiO2 05/15/17 22:14 97.0 80 19 102/58 (73) 97 05/15/17 21:50 79 18 105/67 (80) 99 Nasal Cannula 2 05/15/17 21:45 79 16 95/58 (70) 98 Nasal Cannula 2 05/15/17 21:30 68 16 78/49 (59) 98 Nasal Cannula 2 05/15/17 21:00 75 14 80/50 (60) 97 Nasal Cannula 2 05/15/17 20:45 75 16 109/57 (74) 97 Nasal Cannula 2 05/15/17 20:30 98.8 85 17 85/53 (64) 96 Nasal Cannula 2 05/15/17 16:00 100.0 98 21 105/60 (75) 95 05/15/17 12:27 103.3 111 23 122/67 (85) 95 05/15/17 08:00 101.0 110 22 143/82 (102) 97 05/15/17 04:00 102.7 107 18 103/55 (71) 96 05/15/17 00:50 101.4 05/14/17 23:44 103.1 115 17 115/72 (86) 96 05/15/17 05/15/17 05/16/17 15:00 23:00 07:00 Intake Total 2720 ml Output Total 1230 ml Balance 1490 ml Intake Oral 220 ml IV Total 1300 ml Other 1200 ml Output Urine Total 1200 ml Estimated Blood Loss 30 ml # Bowel Movements 0 . Laboratory Tests Test 05/15/17 02:40 White Blood Count 23.8 TH/MM3 Red Blood Count 3.69 MIL/MM3 Hemoglobin 10.1 GM/DL Hematocrit 30.6 % Mean Corpuscular Volume 83.0 FL Mean Corpuscular Hemoglobin 27.4 PG Mean Corpuscular Hemoglobin Concent 33.0 % Red Cell Distribution Width 12.6 % Platelet Count 323 TH/MM3 Mean Platelet Volume 8.2 FL Neutrophils (%) (Auto) 84.5 % Lymphocytes (%) (Auto) 8.0 % Monocytes (%) (Auto) 6.5 % Eosinophils (%) (Auto) 0.6 % Basophils (%) (Auto) 0.4 % Neutrophils # (Auto) 20.1 TH/MM3 Lymphocytes # (Auto) 1.9 TH/MM3 Monocytes # (Auto) 1.6 TH/MM3 Eosinophils # (Auto) 0.1 TH/MM3 Basophils # (Auto) 0.1 TH/MM3 CBC Comment DIFF FINAL Differential Comment Laboratory Tests Test 05/15/17 02:40 Blood Urea Nitrogen 11 MG/DL Creatinine 0.98 MG/DL Random Glucose 190 MG/DL Calcium Level 8.3 MG/DL Sodium Level 134 MEQ/L Potassium Level 4.0 MEQ/L Chloride Level 99 MEQ/L Carbon Dioxide Level 27.6 MEQ/L Anion Gap 7 MEQ/L Estimat Glomerular Filtration Rate 79 ML/MIN Microbiology Date/Time Source Procedure Growth Status 05/15/17 03:05 Blood Peripheral Aerobic Blood Culture Pending Received 05/15/17 03:05 Blood Peripheral Anaerobic Blood Culture Pending Received 05/15/17 02:40 Blood Peripheral Aerobic Blood Culture Pending Received 05/15/17 02:40 Blood Peripheral Anaerobic Blood Culture Pending Received 05/15/17 00:00 Wound Foot Fungal Smear Pending Received 05/15/17 00:00 Wound Foot Fungal Culture Pending Received 05/15/17 00:00 Wound Foot Acid Fast Stain Pending Received 05/15/17 00:00 Wound Foot Mycobacterial Culture Pending Received 05/15/17 00:00 Wound Foot Gram Stain Pending Received 05/15/17 00:00 Wound Foot Wound Culture Pending Received 05/15/17 00:00 Wound Foot Fungal Smear Pending Received 05/15/17 00:00 Wound Foot Fungal Culture Pending Received 05/15/17 00:00 Wound Foot Acid Fast Stain Pending Received 05/15/17 00:00 Wound Foot Mycobacterial Culture Pending Received 05/15/17 00:00 Wound Foot Gram Stain Pending Received 05/15/17 00:00 Wound Foot Wound Culture Pending Received Imaging Last Impressions Chest X-Ray 05/15/17 0000 Signed Impressions: Service Date/Time: April 08:47 - CONCLUSION: 1.2 cm nodular density in lateral left midlung zone. Recommend chest CT without contrast to evaluate for pulmonary nodule. No other acute cardiopulmonary disease identified. Cyrus Sears MD Foot MRI 05/09/17 0000 Signed Impressions: Service Date/Time: Tuesday, May 09, 2017 15:29 - CONCLUSION: Abnormal head of the fifth metatarsal suggestive of edema and cortical enhancement associated with soft tissue swelling. Early osteomyelitis suspect. Jordan Tovar MD Head CT 05/08/17 0000 Signed Impressions: Service Date/Time: April 14:16 - CONCLUSION: 1. No acute intracranial abnormality is identified. Raghavendra Lim MD Foot X-Ray 05/08/17 0000 Signed Impressions: Service Date/Time: April 11:18 - CONCLUSION: 1. Soft tissue swelling lateral foot near the fifth MTP. No acute bony abnormality. No radiopaque foreign body. Francisco Grider MD Physical Exam ONSTITUTIONAL/GENERAL: This is a thin ill appearing middle aged patient, in no apparent distress. TUBES/LINES/DRAINS: SKIN: No jaundice, rashes, or lesions. CARDIOVASCULAR: Regular rate and rhythm without murmurs, gallops, or rubs. No JVD. Peripheral pulses symmetric. Good pedal pulses perifery appears well perfused RESPIRATORY/CHEST: Symmetric, unlabored respirations. Clear to auscultation. Breath sounds equal bilaterally. No wheezes, rales, or rhonchi. GASTROINTESTINAL: Abdomen soft, non-tender, nondistended. Bowel sounds present. 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
[2017-05-15 23:22] LABS: COMMENT (UR) CULT NOT INDICATED; CULTURE IF INDICATED CULT NOT INDICATED
[2017-05-16] VITALS (7 sets, daily range): BP systolic 97–125; BP diastolic 53–100; PULSE 87–116; RESP 16–20; TEMP 97.4–102.1; O2SAT 95–100
[2017-05-16] MEDS: MORPHINE SULFATE 4 MG/ML INJ IV PUSH PRN ×4 (01:15→14:36)
[2017-05-16] MEDS: CHLORHEXIDINE GLUCONATE 2 % 1 PACK (2 CLOTHS) TOP SCH (03:33)
[2017-05-16] MEDS: ceFAZolin 2 GM PREMIX 50 ML IV SCH ×3 (03:33→20:16)
[2017-05-16] MEDS: PIPERACIL-TAZO 3.375 GM PREMIX 50 ML IV SCH ×4 (04:20→21:52)
[2017-05-16] MEDS: ACETAMINOPHEN 325 MG TAB PO PRN ×2 (05:53→12:49)
[2017-05-16] MEDS: INSULIN NovoLIN REGULAR SUPPLEMENTAL SCALE SQ SCH ×4 (07:57→20:29)
[2017-05-16] MEDS: FAMOTIDINE 20 MG TAB PO SCH ×2 (08:46→20:16)
[2017-05-16] MEDS: INSULIN DETEMIR 100 UNITS/ML VIAL SQ SCH ×2 (08:46→20:17)
[2017-05-16] MEDS: BACITRACIN TOP OINT 15 GM TUBE TOPICAL SCH (08:46)
[2017-05-16] MEDS: HEPARIN SODIUM - SQ 10,000 UNITS/ML VIAL SQ SCH ×2 (08:46→20:17)
[2017-05-16] MEDS: SODIUM CHLORIDE 0.9% FLUSH 10 ML FLUSH IV FLUSH SCH ×2 (08:56→20:16)
--- NOTE | 2017-05-16 10:00 | HHI.PR ---
Subjective Remarks Follow-up septicemia with MSSA/right diabetic foot infection/foot cellulitis/DKA 05/12/17-patient seen and examined, spiking fevers with MAXIMUM TEMPERATURE 100.8. Denies any changes. 05/13/17-patient seen and examined, Tmax 100.5 at 4 AM, no other issues 05/14/17-patient continued to spike daily fevers and reported chills overnight 05/15/17-patient seen and examined, he has been spiking fevers since 2:30 PM yesterday 05/16/17-patient seen and examined, status post I&D right foot. Tmax 102.1 at 4 AM however currently afebrile Objective Vitals Vital Signs Date Time Temp Pulse Resp B/P (MAP) Pulse Ox O2 Delivery O2 Flow Rate FiO2 05/16/17 08:00 99.6 91 16 105/69 (81) 100 05/16/17 04:00 102.1 116 20 112/61 (78) 96 05/16/17 02:26 97 Nasal Cannula 3.00 05/16/17 00:00 97.4 87 20 97/53 (68) 97 05/15/17 22:14 97.0 80 19 102/58 (73) 97 05/15/17 21:50 79 18 105/67 (80) 99 Nasal Cannula 2 05/15/17 21:45 79 16 95/58 (70) 98 Nasal Cannula 2 05/15/17 21:30 68 16 78/49 (59) 98 Nasal Cannula 2 05/15/17 21:00 75 14 80/50 (60) 97 Nasal Cannula 2 05/15/17 20:45 75 16 109/57 (74) 97 Nasal Cannula 2 05/15/17 20:30 98.8 85 17 85/53 (64) 96 Nasal Cannula 2 05/15/17 16:00 100.0 98 21 105/60 (75) 95 05/15/17 12:27 103.3 111 23 122/67 (85) 95 I/O 05/15/17 05/15/17 05/15/17 05/16/17 05/16/17 05/16/17 07:00 15:00 23:00 07:00 15:00 23:00 Intake Total 2720 ml Output Total 500 ml 1230 ml 550 ml Balance -500 ml 1490 ml -550 ml Intake Oral 220 ml IV Total 1300 ml Other 1200 ml Output Urine Total 500 ml 1200 ml 550 ml Estimated Blood Loss 30 ml # Bowel Movements 0 Result Diagram: 05/15/170 05/15/17239 Objective Remarks GENERAL: NAD SKIN: Warm and dry. Dressing over right foot HEAD: Normocephalic. EYES: No scleral icterus. No injection or drainage. NECK: Supple, trachea midline. No JVD or lymphadenopathy. CARDIOVASCULAR: Regular rate and rhythm without murmurs, gallops, or rubs. RESPIRATORY: Breath sounds equal bilaterally. No accessory muscle use. GASTROINTESTINAL: Abdomen soft, non-tender, nondistended. MUSCULOSKELETAL: No cyanosis, or edema. BACK: Nontender without obvious deformity. No CVA tenderness. A/P Problem List: (1) Thrombocytosis ICD Code: D47.3 - Essential (hemorrhagic) thrombocythemia (2) Normocytic anemia ICD Code: D64.9 - Anemia, unspecified (3) Leukocytosis ICD Code: D72.829 - Elevated white blood cell count, unspecified (4) Diabetic foot ulcer associated with type 2 diabetes mellitus, with fat layer exposed ICD Code: E11.621 - Type 2 diabetes mellitus with foot ulcer; L97.502 - Non- pressure chronic ulcer of other part of unspecified foot with fat layer exposed (5) Acute kidney injury ICD Code: N17.9 - Acute kidney failure, unspecified (6) Hyperosmolar non-ketotic state in patient with type 2 diabetes mellitus ICD Code: E11.01 - Type 2 diabetes mellitus with hyperosmolarity with coma (7) Dehydration with hyponatremia ICD Code: E87.1 - Hypo-osmolality and hyponatremia (8) Toxic metabolic encephalopathy ICD Code: G92 - Toxic encephalopathy (9) Septic shock ICD Code: A41.9 - Sepsis, unspecified organism; R65.21 - Severe sepsis with septic shock (10) Severe sepsis ICD Code: A41.9 - Sepsis, unspecified organism; R65.20 - Severe sepsis without septic shock Assessment and Plan 56-year-old man with Septicemia with MSSA Right diabetic foot infection/cellulitis Intermittent febrile episodes Continue Ancef 2 g IV every 8 hour as well as Zosyn Appreciate input from a fissure disease specialist Right foot abscess with ulcer stage III with cellulitis Appreciate input from podiatry Status post Right foot I and D 05/15/17 pending culture report Continue current IV antibiotics including Ancef and Zosyn Adjust pain medication accordingly Hyperosmolar nonketotic state in patient with type 2 diabetes Currently on Levemir 10 units twice a day and insulin sliding scale Hyponatremia Resolved Septic shock Resolved DVT prophylaxis: Bilateral SCDs Problem Qualifiers (1) Leukocytosis: Qualified Codes: D72.829 - Elevated white blood cell count, unspecified (2) Diabetic foot ulcer associated with type 2 diabetes mellitus, with fat layer exposed: Qualified Codes: E11.621 - Type 2 diabetes mellitus with foot ulcer; L97.512 - Non-pressure chronic ulcer of other part of right foot with fat layer exposed Jairon Roberts MD May 16, 2017 10:00
--- NOTE | 2017-05-16 11:08 | MP ---
cc: ALMAS DAN DPM DATE OF SURGERY 05/15/2017 DATE OF 1960 PREOPERATIVE DIAGNOSIS Right septic foot POSTOPERATIVE DIAGNOSIS Right septic foot PROCEDURE Right foot I&D multiple in nature. ANESTHESIOLOGIST ANESTHESIA General HEMOSTASIS Right ankle tourniquet at 250 mmHg for 37 minutes ESTIMATED BLOOD LOSS 30 cc MATERIALS Quarter-inch Iodoform packing. BRIEF HISTORY The patient is a 56-year-old male who was admitted to [facility] with a blood sugar in the 1900's with a wound on his right foot for a year. He is a noncompliant diabetic male and he had a bedside I&D on 05/10/[address] Vallecillo. He continued to progress with redness, swelling, increase in cellulitis as well as increase in the white blood cell count. A decision was made to take the patient to the OR. He was cleared by vascular with no lower extremity intervention needed. The risks, benefits, pros and cons were discussed with the patient, as well as and his at the bedside for our visit. No guarantees were given or implied. All questions answered. I did discuss the risk of limb loss. PROCEDURE IN DETAIL The patient was brought into the operating room, placed on the operating room table in the supine position. After general anesthesia was administered, the right foot was prepped and draped in the usual sterile aseptic manner. Tourniquet was inflated on the right ankle with elevation of the foot and an Esmarch at the ankle level. An incision was made on the dorsal lateral foot which was explored. Purulent tissue was noted. The necrotic nonviable tissue was debrided. Attention was then directed to the right plantar arch where there is fluctuance noted. An incision was made. A significant amount of purulent drainage, approximately 20 cc was evacuated on the plantar aspect. It tracked up into the medial plantar arch distal to the hallux, as well as lateral to the fifth ray. The incision explored in all directions. The plantar tissue was ischemic, necrotic and will likely be devitalized and nonviable at some point in time. Only 100% nonviable tissue was debrided away at that point in time. The incision explored in all directions. Necrotic nonviable tissue was rongeured or sharply excised. An additional third incision was placed on the plantar aspect of the fifth metatarsal head to explore the area for any purulent drainage. The plantar incisions were able to be connected with a hemostat from the lateral to medial arch. The incisions were copiously irrigated normal sterile saline impregnated with . It was pulse lavaged with three liters, then the incision was packed with quarter inch Iodoform soaked with Betadine. There were five pieces placed, three in the medial arch as well as one on the plantar lateral sub fifth and one dorsal lateral foot. Dry sterile dressings were applied using Adaptic, 4x4s, several ABD's, a light Esau and a light Franklin wrap. The tourniquet was deflated after 37 minutes. Prompt hyperemic response in digits one through five on the right. The patient tolerated the procedure to completion and will be transferred to the PACU where he will be monitored. He will be then transferred to the floor with BSS and monitored continuously. I plan to take the patient back to the OR on 05/17/2017 for additional washout. He is at risk for limb loss and continued septic presentation given the significant amount of purulent drainage noted in the leg and foot. Almas Dan DPM SR/MICHEL /10:43 PM /10:46 AM
[2017-05-16] MEDS: MAGNESIUM HYDROXIDE SUSP 30 ML CUP PO PRN (11:29)
[2017-05-16] MEDS: ACETAMINOPHEN/HYDROcodone 325 MG/10 MG TAB PO PRN ×2 (12:49→20:16)
[2017-05-16] MEDS ORDERED: diphenhydrAMINE HCL 50 MG/ML VIAL ONE (17:01)
[2017-05-16 19:49] LABS: AUTOMATED NEUTROPHIL # 12.1 TH/MM3 (1.8-7.7); BASOPHIL # 0.1 TH/MM3 (0-0.2); BASOPHIL % 0.5 % (0.0-2.0); EOSINOPHIL # 0.2 TH/MM3 (0-0.4); HEMO FLAGS DIFF FINAL; LYMPH % 17.1 % (9.0-44.0); LYMPHOCYTE # 2.8 TH/MM3 (1.0-4.8); MEAN CELL VOLUME 82.7 FL (80.0-100.0); MEAN CORPUSCULAR HEMOGLOBIN 27.1 PG (27.0-34.0); MEAN CORPUSCULAR HGB CONC 32.7 % (32.0-36.0); MONO % 7.9 % (0.0-8.0); NEUT % 73.5 % (16.0-70.0); PLATELET COUNT 303 TH/MM3 (150-450); RED CELL DISTRIBUTION WIDTH 12.5 % (11.6-17.2); WHITE BLOOD COUNT 16.5 TH/MM3 (4.0-11.0)
[2017-05-17] VITALS (8 sets, daily range): BP systolic 105–121; BP diastolic 60–72; PULSE 84–107; RESP 16–19; TEMP 97.7–100.6; O2SAT 94–99
[2017-05-17] MEDS: ceFAZolin 2 GM PREMIX 50 ML IV SCH ×3 (03:12→19:48)
[2017-05-17] MEDS: CHLORHEXIDINE GLUCONATE 2 % 1 PACK (2 CLOTHS) TOP SCH (03:12)
[2017-05-17] MEDS: PIPERACIL-TAZO 3.375 GM PREMIX 50 ML IV SCH ×4 (04:23→23:23)
[2017-05-17] MEDS: ACETAMINOPHEN/HYDROcodone 325 MG/10 MG TAB PO PRN ×4 (04:52→23:33)
[2017-05-17] MEDS: INSULIN NovoLIN REGULAR SUPPLEMENTAL SCALE SQ SCH ×4 (08:20→20:47)
[2017-05-17] MEDS ORDERED: DO NOT ADM ANY ANTICOAGULANT DRUGS PRN (08:53)
[2017-05-17] MEDS: BACITRACIN TOP OINT 15 GM TUBE TOPICAL SCH (10:32)
[2017-05-17] MEDS: SODIUM CHLORIDE 0.9% FLUSH 10 ML FLUSH IV FLUSH SCH ×2 (10:38→20:45)
[2017-05-17] MEDS: FAMOTIDINE 20 MG TAB PO SCH ×2 (10:38→20:45)
[2017-05-17] MEDS: INSULIN DETEMIR 100 UNITS/ML VIAL SQ SCH ×2 (10:38→20:45)
[2017-05-17] MEDS ORDERED: PHENYLEPH/NS 1000 MCG/10 ML SYR IV ONE (12:00)
[2017-05-17] MEDS ORDERED: NEOMYCIN/POLYMYXIN 1 ML G.U. IRRIGANT IRRIGATION ONE (12:00)
[2017-05-17] MEDS ORDERED: PROPOFOL 200 MG/20 ML AMP IV ONE (12:00)
[2017-05-17] MEDS ORDERED: LIDOCAINE HCL 1% PF 5 ML AMPULE OTHER ONE (12:00)
[2017-05-17] MEDS: MORPHINE SULFATE 4 MG/ML INJ IV PUSH PRN (12:35)
--- NOTE | 2017-05-17 12:47 | HHI.PR ---
Subjective Remarks Follow-up septicemia with MSSA/right diabetic foot infection/foot cellulitis/DKA 05/12/17-patient seen and examined, spiking fevers with MAXIMUM TEMPERATURE 100.8. Denies any changes. 05/13/17-patient seen and examined, Tmax 100.5 at 4 AM, no other issues 05/14/17-patient continued to spike daily fevers and reported chills overnight 05/15/17-patient seen and examined, he has been spiking fevers since 2:30 PM yesterday 05/16/17-patient seen and examined, status post I&D right foot. Tmax 102.1 at 4 AM however currently afebrile 05/17/17-patient seen and examined, afebrile, status post I&D again today. Complains of inadequate pain control. by the bedside Objective Vitals Vital Signs Date Time Temp Pulse Resp B/P (MAP) Pulse Ox O2 Delivery O2 Flow Rate FiO2 05/17/17 09:15 88 22 125/70 (88) 97 Nasal Cannula 2 05/17/17 09:00 85 16 94/59 (71) 96 Nasal Cannula 2 05/17/17 08:58 98.5 80 13 103/65 (78) 95 Nasal Cannula 2 05/17/17 07:25 98.6 84 18 110/68 (82) 97 05/17/17 04:00 98.9 95 16 121/72 (88) 95 05/17/17 00:00 98.5 94 17 118/64 (82) 94 05/16/17 20:00 101.1 104 16 125/71 (89) 95 05/16/17 16:00 99.5 98 16 111/65 (80) 100 I/O 05/16/17 05/16/17 05/16/17 05/17/17 05/17/17 05/17/17 07:00 15:00 23:00 07:00 15:00 23:00 Intake Total 1620 ml 500 ml Output Total 550 ml 1800 ml 600 ml 5 ml Balance -550 ml -180 ml -600 ml 495 ml Intake Oral 1620 ml Other 500 ml Output Urine Total 550 ml 1800 ml 600 ml Estimated Blood Loss 5 ml Result Diagram: 05/16/17 1906 05/15/17 0240 Objective Remarks GENERAL: NAD SKIN: Warm and dry. Dressing over right foot HEAD: Normocephalic. EYES: No scleral icterus. No injection or drainage. NECK: Supple, trachea midline. No JVD or lymphadenopathy. CARDIOVASCULAR: Regular rate and rhythm without murmurs, gallops, or rubs. RESPIRATORY: Breath sounds equal bilaterally. No accessory muscle use. GASTROINTESTINAL: Abdomen soft, non-tender, nondistended. MUSCULOSKELETAL: No cyanosis, or edema. Dressing over right foot BACK: Nontender without obvious deformity. No CVA tenderness. A/P Problem List: (1) Thrombocytosis ICD Code: D47.3 - Essential (hemorrhagic) thrombocythemia (2) Normocytic anemia ICD Code: D64.9 - Anemia, unspecified (3) Leukocytosis ICD Code: D72.829 - Elevated white blood cell count, unspecified (4) Diabetic foot ulcer associated with type 2 diabetes mellitus, with fat layer exposed ICD Code: E11.621 - Type 2 diabetes mellitus with foot ulcer; L97.502 - Non- pressure chronic ulcer of other part of unspecified foot with fat layer exposed (5) Acute kidney injury ICD Code: N17.9 - Acute kidney failure, unspecified (6) Hyperosmolar non-ketotic state in patient with type 2 diabetes mellitus ICD Code: E11.01 - Type 2 diabetes mellitus with hyperosmolarity with coma (7) Dehydration with hyponatremia ICD Code: E87.1 - Hypo-osmolality and hyponatremia (8) Toxic metabolic encephalopathy ICD Code: G92 - Toxic encephalopathy (9) Septic shock ICD Code: A41.9 - Sepsis, unspecified organism; R65.21 - Severe sepsis with septic shock (10) Severe sepsis ICD Code: A41.9 - Sepsis, unspecified organism; R65.20 - Severe sepsis without septic shock Assessment and Plan 56-year-old man with Septicemia with MSSA Right diabetic foot infection/cellulitis Intermittent febrile episodes Continue Ancef 2 g IV every 8 hour as well as Zosyn Appreciate input from a fissure disease specialist Right foot abscess with ulcer stage III with cellulitis Appreciate input from podiatry Status post Right foot I and D 05/15/17 and 05/17/17 pending culture report Continue current IV antibiotics including Ancef and Zosyn Adjust pain medication accordingly Hyperosmolar nonketotic state in patient with type 2 diabetes Currently on Levemir 10 units twice a day and insulin sliding scale Hyponatremia Resolved Septic shock Resolved DVT prophylaxis: Bilateral SCDs Problem Qualifiers (1) Leukocytosis: Qualified Codes: D72.829 - Elevated white blood cell count, unspecified (2) Diabetic foot ulcer associated with type 2 diabetes mellitus, with fat layer exposed: Qualified Codes: E11.621 - Type 2 diabetes mellitus with foot ulcer; L97.512 - Non-pressure chronic ulcer of other part of right foot with fat layer exposed Jairon Roberts MD May 17, 2017 12:47
[2017-05-17] MEDS: MAGNESIUM HYDROXIDE SUSP 30 ML CUP PO PRN (20:44)
--- NOTE | 2017-05-17 22:23 | MP ---
cc: EVELYN DAN DATE OF SURGERY 05/17/17 1960 PREOPERATIVE DIAGNOSIS 1. Right foot abscess cellulitis. 2. Right foot chronic infection. 3. Right fifth metatarsal chronic ulcer. POSTOPERATIVE DIAGNOSIS 1. Right foot abscess cellulitis. 2. Right foot chronic infection. 3. Right fifth metatarsal chronic ulcer. PROCEDURE 1. Right foot I&D procedure 2. Right fifth metatarsal bone biopsy. ANESTHESIOLOGIST Dr. Wolf ANESTHESIA General HEMOSTASIS Right ankle tourniquet at 250 mmHg for 17 minutes. ESTIMATED BLOOD LOSS Less than 3 mL MATERIALS None INJECTABLES Postoperatively zero. BRIEF HISTORY The patient is a 56-year-old male who came in with significantly uncontrolled blood sugar in the 1900s. He had a right foot infection and had bedside I&D, progressed to OR I&D with washout and ultimately additional washout with I&D and bone biopsy on 05/17/2017. Risks, benefits, pros and cons were discussed. The patient freely consents to surgical intervention. No guarantees were given or implied. PROCEDURE IN DETAIL The patient brought into the operating room, placed on the operating table in spine position after general anesthesia was administered. Right foot was prepped, scrubbed and draped in the usual sterile aseptic manner. Tourniquet was inflated at 250 mmHg on the right ankle. Attention was then directed to the right plantar arch where all packing was removed as well as on the right foot. The necrotic nonviable tissue in the plantar flaps were dissected out. The resultant wound measured 7 cm anterior to posterior and 6 cm medial to lateral plantar with a depth of about 1 cm. He does have a dorsal foot wound approximately 4 x 3 cm and a right sub fifth metatarsal incision approximately 2 cm. There was less than 1 mL of purulent drainage which was obtained in the distal most lateral aspect of the plantar foot. There was no malodor. There was no tracking erythema and there was an additional small pocket of purulence approximately 1-2 mL in the medial dorsal foot which was at the navicular region. The incisions were evaluated in all directions without any additional purulent drainage. The purulent drainage at the plantar lateral distal aspect was cultured and passed off the field. The necrotic nonviable tissue was sharply debrided with a rongeur. A bone biopsy to the plantar fifth metatarsal on the right foot was taken using a [employer] bone biopsy kit. It was cut in half and half was sent to pathology for growth and the other half was cultured for aerobic, anaerobic Gram stain culture and sensitivity as well as fungal. The incisions x3 were pulse lavaged with normal sterile saline impregnated with 2 units of . Then dry sterile dressings were applied using Adaptic, 4x4s, Esau and a light Franklin wrap. The patient tolerated procedure to completion and transferred to PACU for brief period of postop monitoring after which he will be discharged to the floor. Tourniquet was deflated after 17 minutes with prompt hyperemic response digits one through five on the right. The patient will be continued to be followed on the floor. Evelyn Dan DPM SR/ /9:07 PM /10:09 PM
[2017-05-18] VITALS (7 sets, daily range): BP systolic 108–133; BP diastolic 61–80; PULSE 89–100; RESP 17–20; TEMP 96.1–99.5; O2SAT 95–100
[2017-05-18] MEDS: ceFAZolin 2 GM PREMIX 50 ML IV SCH ×3 (03:14→19:40)
[2017-05-18] MEDS: ACETAMINOPHEN/HYDROcodone 325 MG/10 MG TAB PO PRN ×5 (03:21→21:12)
[2017-05-18] MEDS: CHLORHEXIDINE GLUCONATE 2 % 1 PACK (2 CLOTHS) TOP SCH (03:34)
[2017-05-18] MEDS: PIPERACIL-TAZO 3.375 GM PREMIX 50 ML IV SCH ×4 (05:00→23:42)
[2017-05-18] MEDS: INSULIN NovoLIN REGULAR SUPPLEMENTAL SCALE SQ SCH ×4 (07:18→21:18)
[2017-05-18] MEDS: FAMOTIDINE 20 MG TAB PO SCH ×2 (09:51→21:12)
[2017-05-18] MEDS: INSULIN DETEMIR 100 UNITS/ML VIAL SQ SCH ×2 (09:51→21:13)
[2017-05-18] MEDS: BACITRACIN TOP OINT 15 GM TUBE TOPICAL SCH (09:52)
[2017-05-18] MEDS: SODIUM CHLORIDE 0.9% FLUSH 10 ML FLUSH IV FLUSH SCH ×2 (09:53→21:13)
--- NOTE | 2017-05-18 09:56 | HHI.PR ---
Subjective Remarks Follow-up septicemia with MSSA/right diabetic foot infection/foot cellulitis/DKA 05/12/17-patient seen and examined, spiking fevers with MAXIMUM TEMPERATURE 100.8. Denies any changes. 05/13/17-patient seen and examined, Tmax 100.5 at 4 AM, no other issues 05/14/17-patient continued to spike daily fevers and reported chills overnight 05/15/17-patient seen and examined, he has been spiking fevers since 2:30 PM yesterday 05/16/17-patient seen and examined, status post I&D right foot. Tmax 102.1 at 4 AM however currently afebrile 05/17/17-patient seen and examined, afebrile, status post I&D again today. Complains of inadequate pain control. by the bedside 05/18/17-currently afebrile, reports significant improvement of right lower extremity pain. No acute event overnight. Objective Vitals Vital Signs Date Time Temp Pulse Resp B/P (MAP) Pulse Ox O2 Delivery O2 Flow Rate FiO2 05/18/17 07:50 98.6 90 20 126/66 (86) 95 05/18/17 07:32 97 Nasal Cannula 2.00 05/18/17 04:11 18 05/18/17 04:00 96.9 91 17 133/80 (97) 99 05/18/17 00:00 99.5 89 17 108/61 (77) 99 05/17/17 20:00 97.7 93 16 115/70 (85) 94 05/17/17 17:19 95 Nasal Cannula 2.00 05/17/17 16:36 100.6 99 19 107/65 (79) 95 05/17/17 12:57 99.0 107 19 105/60 (75) 99 05/17/17 11:00 98 3.00 I/O 05/17/17 05/17/17 05/17/17 05/18/17 05/18/17 05/18/17 07:00 15:00 23:00 07:00 15:00 23:00 Intake Total 500 ml 1500 ml 960 ml Output Total 600 ml 5 ml 1490 ml 800 ml Balance -600 ml 495 ml 10 ml 160 ml Intake Oral 1500 ml 960 ml Other 500 ml Output Urine Total 600 ml 1490 ml 800 ml Estimated Blood Loss 5 ml # Bowel Movements 1 Result Diagram: 05/16/17 1906 05/15/17 0240 Imaging Last Impressions Chest X-Ray 05/15/17 0000 Signed Impressions: Service Date/Time: April 08:47 - CONCLUSION: 1.2 cm nodular density in lateral left midlung zone. Recommend chest CT without contrast to evaluate for pulmonary nodule. No other acute cardiopulmonary disease identified. Cyrus Sears MD Foot MRI 05/09/17 0000 Signed Impressions: Service Date/Time: Tuesday, May 09, 2017 15:29 - CONCLUSION: Abnormal head of the fifth metatarsal suggestive of edema and cortical enhancement associated with soft tissue swelling. Early osteomyelitis suspect. Jordan Tovar MD Head CT 05/08/17 0000 Signed Impressions: Service Date/Time: April 14:16 - CONCLUSION: 1. No acute intracranial abnormality is identified. Raghavendra Lim MD Foot X-Ray 05/08/17 0000 Signed Impressions: Service Date/Time: April 11:18 - CONCLUSION: 1. Soft tissue swelling lateral foot near the fifth MTP. No acute bony abnormality. No radiopaque foreign body. Francisco Grider MD Objective Remarks GENERAL: NAD SKIN: Warm and dry. Dressing over right foot HEAD: Normocephalic. EYES: No scleral icterus. No injection or drainage. NECK: Supple, trachea midline. No JVD or lymphadenopathy. CARDIOVASCULAR: Regular rate and rhythm without murmurs, gallops, or rubs. RESPIRATORY: Breath sounds equal bilaterally. No accessory muscle use. GASTROINTESTINAL: Abdomen soft, non-tender, nondistended. MUSCULOSKELETAL: No cyanosis, or edema. Dressing over right foot BACK: Nontender without obvious deformity. No CVA tenderness. Procedures PROCEDURE 1. Right foot I&D procedure 2. Right fifth metatarsal bone biopsy. A/P Problem List: (1) Thrombocytosis ICD Code: D47.3 - Essential (hemorrhagic) thrombocythemia (2) Normocytic anemia ICD Code: D64.9 - Anemia, unspecified (3) Leukocytosis ICD Code: D72.829 - Elevated white blood cell count, unspecified (4) Diabetic foot ulcer associated with type 2 diabetes mellitus, with fat layer exposed ICD Code: E11.621 - Type 2 diabetes mellitus with foot ulcer; L97.502 - Non- pressure chronic ulcer of other part of unspecified foot with fat layer exposed (5) Acute kidney injury ICD Code: N17.9 - Acute kidney failure, unspecified (6) Hyperosmolar non-ketotic state in patient with type 2 diabetes mellitus ICD Code: E11.01 - Type 2 diabetes mellitus with hyperosmolarity with coma (7) Dehydration with hyponatremia ICD Code: E87.1 - Hypo-osmolality and hyponatremia (8) Toxic metabolic encephalopathy ICD Code: G92 - Toxic encephalopathy (9) Septic shock ICD Code: A41.9 - Sepsis, unspecified organism; R65.21 - Severe sepsis with septic shock (10) Severe sepsis ICD Code: A41.9 - Sepsis, unspecified organism; R65.20 - Severe sepsis without septic shock Assessment and Plan 56-year-old man with Septicemia with MSSA Right diabetic foot infection/cellulitis Continue Ancef 2 g IV every 8 hour as well as Zosyn Appreciate input from a fissure disease specialist Right foot abscess with ulcer stage III with cellulitis Appreciate input from podiatry and plan for wound VAC placement Status post Right foot I and D 05/15/17 and 05/17/17 pending culture report. Right metatarsal foot biopsy pending Continue current IV antibiotics including Ancef and Zosyn Adjust pain medication accordingly Hyperosmolar nonketotic state in patient with type 2 diabetes-resolved Currently on Levemir 10 units twice a day and insulin sliding scale Hyponatremia Resolved Septic shock Resolved DVT prophylaxis: Bilateral SCDs Problem Qualifiers (1) Leukocytosis: Qualified Codes: D72.829 - Elevated white blood cell count, unspecified (2) Diabetic foot ulcer associated with type 2 diabetes mellitus, with fat layer exposed: Qualified Codes: E11.621 - Type 2 diabetes mellitus with foot ulcer; L97.512 - Non-pressure chronic ulcer of other part of right foot with fat layer exposed Jairon Roberts MD May 18, 2017 09:56
[2017-05-18] MEDS: HEPARIN SODIUM - SQ 10,000 UNITS/ML VIAL SQ SCH ×3 (10:05→21:12)
[2017-05-18 15:53] LABS: AUTOMATED NEUTROPHIL # 6.5 TH/MM3 (1.8-7.7); BASOPHIL # 0.1 TH/MM3 (0-0.2); BASOPHIL % 0.6 % (0.0-2.0); EOSINOPHIL # 0.2 TH/MM3 (0-0.4); EOSINOPHIL % 2.7 % (0.0-4.0); HEMATOCRIT 21.2 % (39.0-51.0); LYMPH % 17.3 % (9.0-44.0); LYMPHOCYTE # 1.6 TH/MM3 (1.0-4.8); MEAN CELL VOLUME 82.2 FL (80.0-100.0); MEAN CORPUSCULAR HEMOGLOBIN 28.2 PG (27.0-34.0); MEAN CORPUSCULAR HGB CONC 34.3 % (32.0-36.0); MONO % 7.7 % (0.0-8.0); NEUT % 71.7 % (16.0-70.0); PLATELET COUNT 379 TH/MM3 (150-450); RED BLOOD COUNT 2.58 MIL/MM3 (4.50-5.90); RED CELL DISTRIBUTION WIDTH 12.8 % (11.6-17.2); WHITE BLOOD COUNT 9.1 TH/MM3 (4.0-11.0)
[2017-05-18 15:59] LABS: HEMO FLAGS AUTO DIFF
[2017-05-18 16:09] LABS: BICARBONATE 26.5 MEQ/L (21.0-32.0); POTASSIUM 3.7 MEQ/L (3.5-5.1)
[2017-05-18 16:21] LABS: PLATELET ESTIMATE SMEAR NORMAL (NORMAL); PLATELET MORPHOLOGY NORMAL (NORMAL); SCAN/DIFF AUTO DIFF CONFIRMED
[2017-05-18] MEDS: MAGNESIUM HYDROXIDE SUSP 30 ML CUP PO PRN (18:55)
[2017-05-19] VITALS (7 sets, daily range): BP systolic 115–134; BP diastolic 63–76; PULSE 87–95; RESP 16–20; TEMP 97.7–99.6; O2SAT 92–100
[2017-05-19] MEDS: ACETAMINOPHEN/HYDROcodone 325 MG/10 MG TAB PO PRN ×5 (01:15→20:31)
[2017-05-19] MEDS: ceFAZolin 2 GM PREMIX 50 ML IV SCH ×3 (03:01→18:33)
[2017-05-19] MEDS: CHLORHEXIDINE GLUCONATE 2 % 1 PACK (2 CLOTHS) TOP SCH (03:04)
[2017-05-19] MEDS: PIPERACIL-TAZO 3.375 GM PREMIX 50 ML IV SCH ×4 (04:49→23:00)
[2017-05-19] MEDS: SODIUM CHLORIDE 0.9% FLUSH 10 ML FLUSH IV FLUSH SCH ×2 (08:21→20:32)
[2017-05-19] MEDS: INSULIN DETEMIR 100 UNITS/ML VIAL SQ SCH ×2 (08:21→20:31)
[2017-05-19] MEDS: HEPARIN SODIUM - SQ 10,000 UNITS/ML VIAL SQ SCH ×2 (08:21→20:32)
[2017-05-19] MEDS: FAMOTIDINE 20 MG TAB PO SCH ×2 (08:21→20:31)
[2017-05-19] MEDS: INSULIN NovoLIN REGULAR SUPPLEMENTAL SCALE SQ SCH ×4 (08:22→20:32)
[2017-05-19] MEDS: BACITRACIN TOP OINT 15 GM TUBE TOPICAL SCH (08:24)
--- NOTE | 2017-05-19 09:50 | HHI.PR ---
Subjective Remarks Follow-up septicemia with MSSA/right diabetic foot infection/foot cellulitis/DKA 05/12/17-patient seen and examined, spiking fevers with MAXIMUM TEMPERATURE 100.8. Denies any changes. 05/13/17-patient seen and examined, Tmax 100.5 at 4 AM, no other issues 05/14/17-patient continued to spike daily fevers and reported chills overnight 05/15/17-patient seen and examined, he has been spiking fevers since 2:30 PM yesterday 05/16/17-patient seen and examined, status post I&D right foot. Tmax 102.1 at 4 AM however currently afebrile 05/17/17-patient seen and examined, afebrile, status post I&D again today. Complains of inadequate pain control. by the bedside 05/18/17-currently afebrile, reports significant improvement of right lower extremity pain. No acute event overnight. 05/19/17-patient seen and examined, no acute event overnight. Denies any pain to right foot, afebrile. Plan for wound VAC placement today. Objective Vitals Vital Signs Date Time Temp Pulse Resp B/P (MAP) Pulse Ox O2 Delivery O2 Flow Rate FiO2 05/19/17 06:35 16 05/19/17 04:00 97.7 92 17 115/63 (80) 96 05/19/17 00:00 98.3 95 16 119/67 (84) 96 05/18/17 20:00 97.0 89 17 118/73 (88) 97 05/18/17 18:33 Nasal Cannula 2.00 05/18/17 15:50 96.1 92 20 119/70 (86) 96 05/18/17 11:30 97.5 100 20 129/69 (89) 100 I/O 05/18/17 05/18/17 05/18/17 05/19/17 05/19/17 05/19/17 07:00 15:00 23:00 07:00 15:00 23:00 Intake Total 960 ml 1353 ml 960 ml 480 ml Output Total 800 ml 1200 ml 550 ml 950 ml Balance 160 ml 153 ml 410 ml -470 ml Intake Oral 960 ml 1353 ml 960 ml 480 ml Output Urine Total 800 ml 1200 ml 550 ml 950 ml # Bowel Movements 0 1 Result Diagram: 05/18/17 1503 05/18/17 1503 Objective Remarks GENERAL: NAD SKIN: Warm and dry. Dressing over right foot HEAD: Normocephalic. EYES: No scleral icterus. No injection or drainage. NECK: Supple, trachea midline. No JVD or lymphadenopathy. CARDIOVASCULAR: Regular rate and rhythm without murmurs, gallops, or rubs. RESPIRATORY: Breath sounds equal bilaterally. No accessory muscle use. GASTROINTESTINAL: Abdomen soft, non-tender, nondistended. MUSCULOSKELETAL: No cyanosis, or edema. Dressing over right foot BACK: Nontender without obvious deformity. No CVA tenderness. Procedures PROCEDURE 1. Right foot I&D procedure 2. Right fifth metatarsal bone biopsy. A/P Problem List: (1) Thrombocytosis ICD Code: D47.3 - Essential (hemorrhagic) thrombocythemia (2) Normocytic anemia ICD Code: D64.9 - Anemia, unspecified (3) Leukocytosis ICD Code: D72.829 - Elevated white blood cell count, unspecified (4) Diabetic foot ulcer associated with type 2 diabetes mellitus, with fat layer exposed ICD Code: E11.621 - Type 2 diabetes mellitus with foot ulcer; L97.502 - Non- pressure chronic ulcer of other part of unspecified foot with fat layer exposed (5) Acute kidney injury ICD Code: N17.9 - Acute kidney failure, unspecified (6) Hyperosmolar non-ketotic state in patient with type 2 diabetes mellitus ICD Code: E11.01 - Type 2 diabetes mellitus with hyperosmolarity with coma (7) Dehydration with hyponatremia ICD Code: E87.1 - Hypo-osmolality and hyponatremia (8) Toxic metabolic encephalopathy ICD Code: G92 - Toxic encephalopathy (9) Septic shock ICD Code: A41.9 - Sepsis, unspecified organism; R65.21 - Severe sepsis with septic shock (10) Severe sepsis ICD Code: A41.9 - Sepsis, unspecified organism; R65.20 - Severe sepsis without septic shock Assessment and Plan 56-year-old man with Septicemia with MSSA Right diabetic foot infection/cellulitis Continue Ancef 2 g IV every 8 hour as well as Zosyn Appreciate input from a fissure disease specialist Repeat culture NTD Right foot abscess with ulcer stage III with cellulitis Appreciate input from podiatry and plan for wound VAC placement today Status post Right foot I and D 05/15/17 and 05/17/17 pending culture report. Right metatarsal foot biopsy pending Continue current IV antibiotics including Ancef and Zosyn Adjust pain medication accordingly Hyperosmolar nonketotic state in patient with type 2 diabetes-resolved Currently on Levemir 10 units twice a day and insulin sliding scale A1c 15.5, patient will need outpatient follow-up with endocrinology Hyponatremia Resolved Septic shock Resolved DVT prophylaxis: Bilateral SCDs Problem Qualifiers (1) Leukocytosis: Qualified Codes: D72.829 - Elevated white blood cell count, unspecified (2) Diabetic foot ulcer associated with type 2 diabetes mellitus, with fat layer exposed: Qualified Codes: E11.621 - Type 2 diabetes mellitus with foot ulcer; L97.512 - Non-pressure chronic ulcer of other part of right foot with fat layer exposed Jairon Roberts MD May 19, 2017 09:49
--- NOTE | 2017-05-19 10:37 | PD.VS.PN ---
Subjective Subjective/Hospital Course Afebrile 56/M Pt w/o complaints Dressing to R foot intact c/d LE warm w/ motor intact Pt reported wound vac to be placed today -R foot Objective Vitals/I&O Date Time Temp Pulse Resp B/P (MAP) Pulse Ox O2 Delivery O2 Flow Rate FiO2 05/19/17 08:00 98.0 87 20 115/67 (83) 92 05/19/17 06:35 16 05/19/17 04:00 97.7 92 17 115/63 (80) 96 05/19/17 00:00 98.3 95 16 119/67 (84) 96 05/18/17 20:00 97.0 89 17 118/73 (88) 97 05/18/17 18:33 Nasal Cannula 2.00 05/18/17 15:50 96.1 92 20 119/70 (86) 96 05/18/17 11:30 97.5 100 20 129/69 (89) 100 05/19/17 05/19/17 05/19/17 07:00 15:00 23:00 Intake Total 480 ml Output Total 950 ml Balance -470 ml Physical Exam GENERAL: A&OX3,GCS15,NAD SKIN: Warm and dry LE warm w/ motor intact Post Op dressing intact to R Foot c/d Palpable R DP Palpable L PT Laboratory Laboratory Tests Test 05/18/17 15:03 White Blood Count 9.1 Red Blood Count 2.58 Hemoglobin 7.3 Hematocrit 21.2 Mean Corpuscular Volume 82.2 Mean Corpuscular Hemoglobin 28.2 Mean Corpuscular Hemoglobin Concent 34.3 Red Cell Distribution Width 12.8 Platelet Count 379 Mean Platelet Volume 7.4 Neutrophils (%) (Auto) 71.7 Lymphocytes (%) (Auto) 17.3 Monocytes (%) (Auto) 7.7 Eosinophils (%) (Auto) 2.7 Basophils (%) (Auto) 0.6 Neutrophils # (Auto) 6.5 Lymphocytes # (Auto) 1.6 Monocytes # (Auto) 0.7 Eosinophils # (Auto) 0.2 Basophils # (Auto) 0.1 CBC Comment AUTO DIFF Differential Comment AUTO DIFF CONFIRMED Platelet Estimate NORMAL Platelet Morphology Comment NORMAL Red Cell Morphology Comment NORMAL Blood Urea Nitrogen 10 Creatinine 0.88 Random Glucose 157 Calcium Level 8.0 Sodium Level 133 Potassium Level 3.7 Chloride Level 97 Carbon Dioxide Level 26.5 Anion Gap 10 Estimat Glomerular Filtration Rate 89 Date/Time Source Procedure Growth Status 05/15/17 03:05 Blood Peripheral Aerobic Blood Culture - Preliminary NO GROWTH IN 3 DAYS Resulted 05/15/17 03:05 Blood Peripheral Anaerobic Blood Culture - Preliminary NO GROWTH IN 3 DAYS Resulted 05/08/17 10:50 Urine Clean Catch Urine Culture - Final Staphylococcus Aureus Complete 05/17/17 08:30 Abscess Toe Fungal Smear - Final NO FUNGAL ELEMENTS SEEN. Resulted 05/17/17 08:30 Abscess Toe Fungal Culture Pending Resulted Assessment and Plan Assessment: (1) Non-healing ulcer of right foot Plan Minimal PAD with palpable pulses and ABIs 0.95 Pt doing well Plan No vascular surgical intervention at this time Arranged out patient f/u with an [facility] Pt agrees w/ plan Continue wound care therapy as per podiatry Debi METCALF [facility] [phone] Discharge Planning OK for d/c from a vascular standpoint Arranged OP F/U in a few weeks with an [facility]ADRA Appt time and date was given to the patient Problem Qualifiers (1) Non-healing ulcer of right foot: Qualified Codes: L97.511 - Non-pressure chronic ulcer of other part of right foot limited to breakdown of skin Debi Burns May 19, 2017 10:37
--- NOTE | 2017-05-19 16:05 | PD.WCN.NOT ---
Wound Consult Description: Consult placed for VAC placement on foot per Dr Dan Communicated with: Patient ShawandaRN Recommendation: To change wound VAC M-W-F to right foot with settings @125mmHg Additional Information: Patient seen on for wound VAC application to right foot. Neg Pressure Wound Therapy Wound Location Wound Location: Right plantar/medial foot Wound Description Length: 7.5cm Width: 9cm Depth: 1cm Wound bed appearance: ~80% Tendon ~20% Red non granulating tissue Periwound appearance: Other (medial right foot is noted with partial thickness skinloss that was covered with Xeroform as ordered and secured with VAC drape) Settings Suction: 125 mmHg, Continuous Intensity: Low Other Information: Bridged Foam type: Black Number of pieces: 2 Additonal Information Dressing removed from right foot to reveal a full thickness post surgical wound with no active drainage, no odor, and open wound margins that was described and measured above. Wound was cleansed with NS and gauze. Periwound of intact skin was prepped using Cavilon spray and window paned using drape to protect intact skin. Oil emulsion was used to protect tendon from black granufoam that was placed in wound bed and secured with drape. Dorsal right lateral foot is noted with a full thickness wound measuring 4.5cm x 1.8cm x 0.6cm of ~80% pink tissue and ~10% red non granulating tissue and ~10% tendon that was covered with oil emulsion and included in the wound VAC after window paning and bridging trac pad to dorsum. Wound VAC turned on with settings @125mmHg low continuous suction without leaks. Rolled gauze was used to secure VAC drape further and for added protection from outside elements and tugging on tubing. Franklin Wrap was ordered and can be placed for further protection as patient requests. Patient tolerated wound VAC application fairly with stated pain, however patient had been medicated previously and no other medication was available. Next wound VAC change is scheduled for Friday05/21/17 Arely Bennett May 19, 2017 16:05
[2017-05-20] VITALS: BP 131/79; PULSE 88; RESP 17; TEMP 97.7; O2SAT 97
[2017-05-20] MEDS: ACETAMINOPHEN/HYDROcodone 325 MG/10 MG TAB PO PRN ×6 (00:14→23:22)
[2017-05-20 04:00] VITALS: BP 110/60; PULSE 85; RESP 17; TEMP 98; O2SAT 95
[2017-05-20] MEDS: CHLORHEXIDINE GLUCONATE 2 % 1 PACK (2 CLOTHS) TOP SCH (04:00)
[2017-05-20] MEDS: ceFAZolin 2 GM PREMIX 50 ML IV SCH ×3 (05:14→18:41)
[2017-05-20] MEDS: PIPERACIL-TAZO 3.375 GM PREMIX 50 ML IV SCH ×4 (07:00→23:23)
--- NOTE | 2017-05-20 08:06 | HHI.PR ---
Subjective Remarks f/u; right foot infection in no distress. pain is controlled. no fever. Objective Vitals Vital Signs Date Time Temp Pulse Resp B/P (MAP) Pulse Ox O2 Delivery O2 Flow Rate FiO2 05/20/17 06:17 16 05/20/17 04:00 98.0 85 17 110/60 (77) 95 05/20/17 00:00 97.7 88 17 131/79 (96) 97 05/19/17 20:30 99.4 05/19/17 20:00 98.8 90 17 128/69 (88) 99 05/19/17 16:00 98.3 92 20 134/76 (95) 95 05/19/17 12:00 99.6 92 20 125/65 (85) 100 I/O 05/19/17 05/19/17 05/19/17 05/20/17 05/20/17 05/20/17 07:00 15:00 23:00 07:00 15:00 23:00 Intake Total 480 ml 100 ml 1850 ml Output Total 950 ml 650 ml 2400 ml 150 ml Balance -470 ml -550 ml -550 ml -150 ml Intake Oral 480 ml 1800 ml IV Total 100 ml 50 ml Output Urine Total 950 ml 650 ml 2400 ml 150 ml # Voids 1 # Bowel Movements 1 1 Result Diagram: 05/18/17 1503 05/18/17 1503 Imaging Last Impressions Chest X-Ray 05/15/17 0000 Signed Impressions: Service Date/Time: April 08:47 - CONCLUSION: 1.2 cm nodular density in lateral left midlung zone. Recommend chest CT without contrast to evaluate for pulmonary nodule. No other acute cardiopulmonary disease identified. Cyrus Sears MD Foot MRI 05/09/17 0000 Signed Impressions: Service Date/Time: Tuesday, May 09, 2017 15:29 - CONCLUSION: Abnormal head of the fifth metatarsal suggestive of edema and cortical enhancement associated with soft tissue swelling. Early osteomyelitis suspect. Jordan Tovar MD Head CT 05/08/17 0000 Signed Impressions: Service Date/Time: April 14:16 - CONCLUSION: 1. No acute intracranial abnormality is identified. Raghavendra Lim MD Foot X-Ray 05/08/17 0000 Signed Impressions: Service Date/Time: April 11:18 - CONCLUSION: 1. Soft tissue swelling lateral foot near the fifth MTP. No acute bony abnormality. No radiopaque foreign body. Francisco Grider MD Objective Remarks GENERAL: This is a well-nourished, well-developed patient, in no apparent distress. CARDIOVASCULAR: Regular rate and regular rhythm without murmurs, gallops, or rubs. RESPIRATORY: Clear to auscultation. Breath sounds equal bilaterally. No wheezes , rales, or rhonchi. GASTROINTESTINAL: Abdomen soft, non-tender, nondistended. Normal, active bowel sounds MUSCULOSKELETAL: right foot covered with clean dressing with wound vac in place NEURO: Alert & Oriented x4 to person, place, time, situation. Moves all ext x4 Procedures PROCEDURE 1. Right foot I&D procedure 2. Right fifth metatarsal bone biopsy. Medications and IVs Current Medications Sodium Chloride 1,000 ml @ 2,000 mls/hr Q30M ONCE IV Last administered on 05/08 10:54; Start 05/08/17 at 10:43; Stop 05/08/17 at 11:12; Status DC Sodium Chloride (NS Flush) 2 ml UNSCH PRN IVF FLUSH AFTER USING IV ACCESS; Start 05/08/17 at 10:45; Stop 05/09/17 at 11:57; Status DC Insulin Human Regular (NovoLIN R INJ) 10 units ONCE ONCE SQ Last administered on 05/08/17 11:39; Start 05/08/17 at 11:15; Stop 05/08/17 at 11:18; Status DC Piperacillin Sod/ Tazobactam Sod 100 ml @ 200 mls/hr ONCE ONCE IV Last administered on 05/08/17 11:40; Start 05/08/17 at 11:15; Stop 05/08/17 at 11:44 ; Status DC Vancomycin HCl 1000 mg/Sodium Chloride 250 ml @ 250 mls/hr ONCE ONCE IV Last administered on 05/08/17 12:48; Start 05/08/17 at 11:15; Stop 05/08/17 at 12:14 ; Status DC Sodium Chloride 1,000 ml @ 999 mls/hr BOLUS ONCE IV Last administered on 05/08 13:01; Start 05/08/17 at 12:00; Stop 05/08/17 at 13:00; Status DC Insulin Human Regular (NovoLIN R INJ) 10 units ONCE ONCE IV PUSH Last administered on 05/08/17 12:47; Start 05/08/17 at 12:30; Stop 05/08/17 at 12:31 ; Status DC Piperacillin Sod/ Tazobactam Sod 50 ml @ 100 mls/hr Q6H IV ; Start 05/08/17 at 13:00; Stop 05/08/17 at 13:15; Status DC Pharmacy Profile Note 0 ml @ 0 mls/hr UNSCH OTHER ; Start 05/08/17 at 12:45; Stop 05/12/17 at 10:21; Status DC Sodium Chloride (NS Flush) 2 ml UNSCH PRN IV FLUSH FLUSH AFTER USING IV ACCESS ; Start 05/08/17 at 12:45 Sodium Chloride (NS Flush) 2 ml BID IV FLUSH Last administered on 05/19/17 20: 32; Start 05/08/17 at 21:00 Acetaminophen (Tylenol) 650 mg Q6H PRN PO PAIN 1 TO 2 AND/OR FEVER >101F Last administered on 05/16/17 12:49; Start 05/08/17 at 13:00 Acetaminophen/ Hydrocodone Bitart ([place] 5-325 Mg) 1 tab Q4H PRN PO PAIN SCALE 3 TO 5 Last administered on 05/14/17 19:28; Start 05/08/17 at 14:00 Morphine Sulfate (Morphine Inj) 2 mg Q2H PRN IV PUSH PAIN SCALE 6 TO 10 Last administered on 05/16/17 10:02; Start 05/08/17 at 12:45; Stop 05/16/17 at 10:05 ; Status DC Famotidine (Pepcid Inj) 10 mg Q12HR IV PUSH Last administered on 05/08/17 21: 39; Start 05/08/17 at 21:00; Stop 05/09/17 at 08:40; Status DC Ondansetron HCl (Zofran Inj) 4 mg Q6H PRN IV PUSH NAUSEA OR VOMITING Last administered on 05/14/17 04:41; Start 05/08/17 at 14:00 Albuterol Sulfate (Albuterol Neb) 2.5 mg Q2HR NEB PRN INH SOB/WHEEZING; Start 05/08/17 at 14:00 Heparin Sodium (Porcine) (Heparin Inj) 5,000 units Q12HR SQ Last administered on 05/19/17 20:32; Start 05/08/17 at 21:00; Status Future hold Miscellaneous Information 1 Q361D XX ; Start 05/08/17 at 12:45 Chlorhexidine Gluconate (Chlorhexidine 2% Cloth) Taper DAILY@04 TOP Last administered on 05/17/17 03:12; Start 05/09/17 at 04:00; Stop 05/05/18 at 03:59 Chlorhexidine Gluconate (Chlorhexidine 2% Cloth) 3 pack UNSCH PRN TOP HYGIENIC CARE; Start 05/08/17 at 12:45 Senna/Docusate Sodium ([place]-Colace) 1 tab BID PO Last administered on 08:58; Start 05/08/17 at 21:00; Stop 05/12/17 at 10:42; Status DC Magnesium Hydroxide (Milk Of Magnesia Liq) 30 ml Q12H PRN PO MILD - MODERATE CONSTIPATION Last administered on 05/18/17 18:55; Start 05/08/17 at 14:00 Sennosides (Senokot) 17.2 mg Q12HR PRN PO MODERATE - SEVERE CONSTIPATION; Start 05/08/17 at 21:00; Stop 05/12/17 at 10:42; Status DC Bisacodyl (Dulcolax Supp) 10 mg DAILY PRN RECTAL SEVERE CONSITIPATION; Start at 14:00; Stop 05/12/17 at 10:42; Status DC Lactulose (Lactulose Liq) 30 ml DAILY PRN PO SEVERE CONSITIPATION; Start at 14:00; Stop 05/12/17 at 10:42; Status DC Sodium Chloride 1,000 ml @ 1,000 mls/hr Q1H IV ; Start 05/08/17 at 12:48; Stop 05/08/17 at 14:47; Status DC Dextrose/Sodium Chloride 1,000 ml @ 200 mls/hr Q5H IV Last administered on 08:19; Start 05/08/17 at 12:48; Stop 05/09/17 at 11:56; Status DC Insulin Human Regular 100 units/ Sodium Chloride 100 ml @ 1.38 mls/hr TITRATE IV Last administered on 05/08/17t 13:57; Start 05/08/17 at 14:00; Stop at 08:00; Status DC Potassium Chloride 100 ml @ 50 mls/hr Q2H PRN IV SEE LABEL COMMENTS; Start at 13:00; Stop 05/12/17 at 13:56; Status DC Potassium Chloride 100 ml @ 50 mls/hr Q2H PRN IV SEE LABEL COMMENTS Last administered on 05/09/17t 01:01; Start 05/08/17 at 13:00; Stop 05/12/17 at 13:56 ; Status DC Potassium Chloride 100 ml @ 50 mls/hr Q2H PRN IV SEE LABEL COMMENTS; Start at 13:00; Stop 05/12/17 at 13:56; Status DC Potassium Chloride 100 ml @ 50 mls/hr Q2H PRN IV SEE LABEL COMMENTS; Start at 13:00; Stop 05/12/17 at 13:56; Status DC Sodium Bicarbonate (Sodium Bicarbonate 8.4% Inj) 100 meq UNSCH PRN IV SEE LABEL COMMENTS; Start 05/08/17 at 13:00; Stop 05/12/17 at 13:56; Status DC Sodium Bicarbonate (Sodium Bicarbonate 8.4% Inj) 50 meq UNSCH PRN IV SEE LABEL COMMENTS; Start 05/08/17 at 13:00; Stop 05/12/17 at 13:56; Status DC Sodium Phosphate 15 mmol/Sodium Chloride 105 ml @ 25 mls/hr UNSCH PRN IV SEE LABEL COMMENTS; Start 05/08/17 at 13:00; Stop 05/12/17 at 13:56; Status DC Miscellaneous Information 1 Q361D XX ; Start 05/08/17 at 13:00; Stop 05/08/17 at 13:09; Status DC Chlorhexidine Gluconate (Chlorhexidine 2% Cloth) 3 pack Taper DAILY@04 TOP ; Start 05/09/17 at 04:00; Stop 05/09/17 at 04:00; Status DC Chlorhexidine Gluconate (Chlorhexidine 2% Cloth) 3 pack UNSCH PRN TOP HYGIENIC CARE; Start 05/08/17 at 13:00; Stop 05/08/17 at 13:09; Status DC Sodium Chloride 1,000 ml @ 999 mls/hr BOLUS ONCE IV Last administered on 05/08t 13:23; Start 05/08/17 at 13:00; Stop 05/08/17 at 14:00; Status DC Hydralazine HCl (Apresoline Inj) 10 mg Q1HR PRN IV PUSH SBP>170, DBP>90; Start 05/08/17 at 13:15 Nitroglycerin (Nitroglycerin 2% Oint) 2 inch Q6HR PRN TOPICAL SBP>170, DBP>90; Start 05/08/17 at 14:00 Vancomycin HCl 500 mg/Sodium Chloride 100 ml @ 200 mls/hr ONCE ONCE IV ; Start 05/08/17 at 15:00; Stop 05/08/17 at 15:29; Status DC Piperacillin Sod/ Tazobactam Sod 50 ml @ 100 mls/hr Q6H IV Last administered on 05/12/17t 10:12; Start 05/08/17 at 17:00; Stop 05/12/17 at 10:21; Status DC Magnesium Oxide (Mag-Ox) 800 mg UNSCH PRN PO For Magnesium 1.2 - 1.6 mg/dL; Start 05/08/17 at 21:45; Stop 05/12/17 at 13:58; Status DC Magnesium Sulfate 4 gm/Sodium Chloride 100 ml @ 50 mls/hr UNSCH PRN IV For Magnesium 0.9 - 1.1 mg/dL; Start 05/08/17 at 21:45; Stop 05/12/17 at 13:58; Status DC Magnesium Sulfate 2 gm/Sodium Chloride 100 ml @ 50 mls/hr UNSCH PRN IV For Magnesium 1.2 - 1.6 mg/dL; Start 05/08/17 at 21:45; Stop 05/12/17 at 13:58; Status DC Potassium Chloride 100 ml @ 50 mls/hr Q2H PRN IV For Potassium 2.8 - 3.2 mEq/L ; Start 05/08/17 at 21:45; Stop 05/12/17 at 13:58; Status DC Potassium Chloride 100 ml @ 50 mls/hr Q2H PRN IV For Potassium 3.3 - 3.5 mEq/L ; Start 05/08/17 at 21:45; Stop 05/12/17 at 13:58; Status DC Potassium Chloride 100 ml @ 50 mls/hr Q2H PRN IV For Potassium 2.8 - 3.2 mEq/L ; Start 05/08/17 at 21:45; Stop 05/12/17 at 13:58; Status DC Potassium Chloride 100 ml @ 25 mls/hr UNSCH PRN IV For Potassium 3.3 - 3.5 mEq /L; Start 05/08/17 at 21:45; Stop 05/12/17 at 13:58; Status DC Potassium Phosphate (K-Phos) 2,000 mg Q4H PRN PO For Phosphorus < 2.5 mg/dL; Start 05/08/17 at 21:45; Stop 05/12/17 at 13:58; Status DC Potassium Phosphate (K-Phos) 2,000 mg UNSCH PRN PO/TUBE SEE LABEL COMMENTS; Start 05/08/17 at 21:45; Stop 05/12/17 at 13:58; Status DC Potassium Phosphate 30 mmol/ Sodium Chloride 260 ml @ 42 mls/hr UNSCH PRN IV SEE LABEL COMMENTS Last administered on 05/08/17 22:25; Start 05/08/17 at 21:45 ; Stop 05/12/17 at 13:58; Status DC Sodium Phosphate 30 mmol/Sodium Chloride 250 ml @ 42 mls/hr UNSCH PRN IV For Phosphorus < 2.5 mg/dL; Start 05/08/17 at 21:45; Stop 05/12/17 at 13:58; Status DC Miscellaneous Information 1 ONCE ONCE .XX Last administered on 05/09/17 08:00 ; Start 05/09/17 at 08:00; Stop 05/09/17 at 08:01; Status DC Miscellaneous Information 1 ONCE ONCE .XX Last administered on 05/09/17 08:00 ; Start 05/09/17 at 08:00; Stop 05/09/17 at 08:01; Status DC Insulin Detemir (Levemir Inj) 10 units BID SQ Last administered on 05/19/17 20 :31; Start 05/09/17 at 09:00 Insulin Human Regular (NovoLIN R SUPPLEMENTAL SCALE) 1 ACHS SLIDING SCALE SQ Last administered on 05/09/17 08:00; Start 05/09/17 at 08:00; Stop 05/09/17 at 11:00; Status DC Dextrose (D50w (Vial) Inj) 50 ml UNSCH PRN IV PUSH HYPOGLYCEMIA-SEE COMMENTS; Start 05/09/17 at 08:00 Glucagon (Glucagon Inj) 1 mg UNSCH PRN OTHER HYPOGLYCEMIA-SEE COMMENTS; Start 05/09/17 at 08:00 Famotidine (Pepcid) 20 mg BID PO Last administered on 05/19/17 20:31; Start at 09:00 Insulin Human Regular (NovoLIN R SUPPLEMENTAL SCALE) 1 ACHS SLIDING SCALE SQ Last administered on 05/19/17 17:00; Start 05/09/17 at 12:00 Vancomycin HCl 1500 mg/Sodium Chloride 515 ml @ 257.5 mls/ hr Q24H IV Last administered on 05/11/17 18:01; Start 05/09/17 at 15:00; Stop 05/11/17 at 19:01 ; Status DC Miscellaneous Information SPECIFIC LAB TO BE ... ONCE ONCE .XX ; Start 05/11 at 14:45; Stop 05/11/17 at 14:46; Status DC Gadodiamide (Omniscan Pf Inj) 14 ml STK-MED ONCE IV PUSH Last administered on 16:02; Start 05/09/17 at 16:02; Stop 05/09/17 at 16:03; Status DC Bacitracin (Bacitracin Oint Packet) 0.9 gm DAILY TOPICAL Last administered on 08:22; Start 05/10/17 at 09:00; Stop 05/13/17 at 08:43; Status DC Bacitracin (Baciguent Oint) 1 applic DAILY TOPICAL Last administered on 09:21; Start 05/11/17 at 09:00 Vancomycin HCl 1100 mg/Sodium Chloride 261 ml @ 250 mls/hr Q12H IV Last administered on 05/12/17 09:05; Start 05/12/17 at 10:00; Stop 05/12/17 at 10:21 ; Status DC Miscellaneous Information SPECIFIC LAB TO BE DRAWN:VANCO TROUGH DATE TO BE .Richard ONCE ONCE .XX ; Start 05/12/17 at 21:45; Stop 05/12/17 at 21:45; Status DC Cefazolin Sodium/ Dextrose 50 ml @ 100 mls/hr Q8H IV Last administered on 05/20 05:14; Start 05/12/17 at 11:00; Stop 06/23/17 at 10:59 Insulin Human Regular (NovoLIN R INJ) 10 units ONCE ONCE IV PUSH Last administered on 05/14/17 04:39; Start 05/14/17 at 04:30; Stop 05/14/17 at 04:31 ; Status DC Piperacillin Sod/ Tazobactam Sod 50 ml @ 100 mls/hr Q6H IV Last administered on 05/20/17 07:00; Start 05/15/17 at 17:00 Dextrose (D50w (Syr) Inj) 50 ml STK-MED ONCE .ROUTE Last administered on 16:36; Start 05/15/17 at 16:34; Stop 05/15/17 at 16:35; Status DC Lidocaine HCl (Xylocaine 2% Inj) 50 ml STK-MED ONCE .ROUTE Last administered on 05/15/17 19:57; Start 05/15/17 at 17:14; Stop 05/15/17 at 17:15; Status DC Bupivacaine HCl (Marcaine Pf 0.25% Inj) 30 ml STK-MED ONCE .ROUTE Last administered on 05/15/17 19:57; Start 05/15/17 at 17:17; Stop 05/15/17 at 17:18 ; Status DC Neomycin/Polymyxin (Neosporin G.u. Irr) 2 ml ONCE ONCE IRRIGATION Last administered on 05/15/17 20:01; Start 05/15/17 at 20:01; Stop 05/15/17 at 20:03 ; Status DC Acetaminophen 100 ml @ As Directed STK-MED ONCE IV ; Start 05/15/17 at 20:06; Stop 05/15/17 at 20:07; Status DC Miscellaneous Information ALL NURSING DEPARTME... UNSCH PRN .XX SEE LABEL COMMENTS; Start 05/15/17 at 20:31; Stop 05/16/17 at 20:30; Status DC Acetaminophen/ Hydrocodone Bitart ([place] 10-325 Mg) 1 tab Q4H PRN PO Pain>5 Last administered on 05/20/17 05:14; Start 05/16/17 at 10:15 Morphine Sulfate (Morphine Inj) 2 mg Q6H PRN IV PUSH BREAKTHROUGH PAIN Last administered on 05/17/17 12:35; Start 05/16/17 at 10:15 Diphenhydramine HCl (Benadryl Inj) 50 mg STK-MED ONCE .ROUTE Last administered on 05/16/17 17:04; Start 05/16/17 at 17:01; Stop 05/16/17 at 17:02; Status DC Miscellaneous Information ALL NURSING DEPARTME... UNSCH PRN .XX SEE LABEL COMMENTS; Start 05/17/17 at 08:53; Stop 05/18/17 at 08:52; Status DC A/P Assessment and Plan Septicemia with MSSA Right diabetic foot infection/cellulitis Continue Ancef as well as Zosyn Appreciate input from ID Repeat culture NTD Right foot abscess with ulcer stage III with cellulitis Appreciate input from podiatry - s/p wound VAC placement Status post Right foot I and D 05/15/17 and 05/17/17 . Right metatarsal foot biopsy pending Continue current IV antibiotics including Ancef and Zosyn continue pain control. Hyperosmolar nonketotic state in patient with type 2 diabetes-resolved Currently on Levemir 10 units twice a day and insulin sliding scale A1c 15.5, patient will need outpatient follow-up with endocrinology Hyponatremia Resolved Septic shock Resolved Discharge Planning when ok with ID and podiatry. Francie Chaves MD May 20, 2017 08:06
[2017-05-20] MEDS: FAMOTIDINE 20 MG TAB PO SCH ×2 (08:36→23:21)
[2017-05-20] MEDS: HEPARIN SODIUM - SQ 10,000 UNITS/ML VIAL SQ SCH ×2 (08:37→23:22)
[2017-05-20] MEDS: INSULIN DETEMIR 100 UNITS/ML VIAL SQ SCH ×2 (08:38→23:41)
[2017-05-20] MEDS: SODIUM CHLORIDE 0.9% FLUSH 10 ML FLUSH IV FLUSH SCH ×2 (08:41→23:23)
[2017-05-20] MEDS: INSULIN NovoLIN REGULAR SUPPLEMENTAL SCALE SQ SCH ×4 (08:41→23:46)
[2017-05-20] MEDS: BACITRACIN TOP OINT 15 GM TUBE TOPICAL SCH (08:42)
[2017-05-20 08:50] VITALS: BP 127/82; PULSE 92; RESP 16; TEMP 96.7; O2SAT 97
[2017-05-20 12:00] VITALS: BP 115/70; PULSE 78; RESP 16; TEMP 97.5; O2SAT 96
[2017-05-20 16:00] VITALS: BP 124/77; PULSE 86; RESP 16; TEMP 97.4; O2SAT 95
[2017-05-20 20:00] VITALS: BP 117/67; PULSE 86; RESP 17; TEMP 98.5; O2SAT 97
[2017-05-21] VITALS: BP 139/88; PULSE 94; RESP 17; TEMP 99; O2SAT 97
[2017-05-21] MEDS: ACETAMINOPHEN/HYDROcodone 325 MG/10 MG TAB PO PRN ×5 (02:22→22:01)
[2017-05-21 04:00] VITALS: BP 125/76; PULSE 87; RESP 17; TEMP 97.9; O2SAT 95
[2017-05-21] MEDS: CHLORHEXIDINE GLUCONATE 2 % 1 PACK (2 CLOTHS) TOP SCH (04:00)
[2017-05-21] MEDS: PIPERACIL-TAZO 3.375 GM PREMIX 50 ML IV SCH ×3 (04:34→15:56)
[2017-05-21] MEDS: ceFAZolin 2 GM PREMIX 50 ML IV SCH ×3 (04:35→18:02)
[2017-05-21 07:50] VITALS: BP 121/76; PULSE 88; RESP 20; TEMP 97.6; O2SAT 100
[2017-05-21] MEDS: INSULIN NovoLIN REGULAR SUPPLEMENTAL SCALE SQ SCH ×4 (08:00→21:00)
[2017-05-21 08:04] LABS: AUTOMATED NEUTROPHIL # 4.3 TH/MM3 (1.8-7.7); BASOPHIL # 0.1 TH/MM3 (0-0.2); BASOPHIL % 0.8 % (0.0-2.0); EOSINOPHIL # 0.3 TH/MM3 (0-0.4); EOSINOPHIL % 4.5 % (0.0-4.0); HEMATOCRIT 24.6 % (39.0-51.0); HEMO FLAGS DIFF FINAL; LYMPH % 24.8 % (9.0-44.0); LYMPHOCYTE # 1.8 TH/MM3 (1.0-4.8); MEAN CELL VOLUME 82.2 FL (80.0-100.0); MEAN CORPUSCULAR HEMOGLOBIN 27.3 PG (27.0-34.0); MEAN CORPUSCULAR HGB CONC 33.2 % (32.0-36.0); MONO % 9.2 % (0.0-8.0); NEUT % 60.7 % (16.0-70.0); PLATELET COUNT 486 TH/MM3 (150-450); RED BLOOD COUNT 2.99 MIL/MM3 (4.50-5.90); RED CELL DISTRIBUTION WIDTH 13.2 % (11.6-17.2); WHITE BLOOD COUNT 7.1 TH/MM3 (4.0-11.0)
--- NOTE | 2017-05-21 08:27 | HHI.PR ---
Subjective Remarks in no acute distress. afebrile. pain is fairly controlled. Objective Vitals Vital Signs Date Time Temp Pulse Resp B/P (MAP) Pulse Ox O2 Delivery O2 Flow Rate FiO2 05/21/17 04:32 16 05/21/17 04:00 97.9 87 17 125/76 (92) 95 05/21/17 00:00 99.0 94 17 139/88 (105) 97 05/20/17 20:00 98.5 86 17 117/67 (84) 97 05/20/17 16:00 97.4 86 16 124/77 (93) 95 05/20/17 12:00 97.5 78 16 115/70 (85) 96 05/20/17 08:50 96.7 92 16 127/82 (97) 97 I/O 05/20/17 05/20/17 05/20/17 05/21/17 05/21/17 05/21/17 07:00 15:00 23:00 07:00 15:00 23:00 Intake Total 50 ml 100 ml 710 ml Output Total 150 ml 500 ml 200 ml Balance -100 ml 100 ml 210 ml -200 ml Intake Oral 660 ml IV Total 50 ml 100 ml 50 ml Output Urine Total 150 ml 500 ml 200 ml # Voids 1 2 1 # Bowel Movements 1 1 Result Diagram: 05/21/17 0713 05/18/17 1503 Imaging Last Impressions Chest X-Ray 05/15/17 0000 Signed Impressions: Service Date/Time: April 08:47 - CONCLUSION: 1.2 cm nodular density in lateral left midlung zone. Recommend chest CT without contrast to evaluate for pulmonary nodule. No other acute cardiopulmonary disease identified. Cyrus Sears MD Foot MRI 05/09/17 0000 Signed Impressions: Service Date/Time: Tuesday, May 09, 2017 15:29 - CONCLUSION: Abnormal head of the fifth metatarsal suggestive of edema and cortical enhancement associated with soft tissue swelling. Early osteomyelitis suspect. Jordan Tovar MD Head CT 05/08/17 0000 Signed Impressions: Service Date/Time: April 14:16 - CONCLUSION: 1. No acute intracranial abnormality is identified. Raghavendra Lim MD Foot X-Ray 05/08/17 0000 Signed Impressions: Service Date/Time: April 11:18 - CONCLUSION: 1. Soft tissue swelling lateral foot near the fifth MTP. No acute bony abnormality. No radiopaque foreign body. Francisco Grider MD Objective Remarks GENERAL: This is a well-nourished, well-developed patient, in no apparent distress. CARDIOVASCULAR: Regular rate and regular rhythm without murmurs, gallops, or rubs. RESPIRATORY: Clear to auscultation. Breath sounds equal bilaterally. No wheezes , rales, or rhonchi. GASTROINTESTINAL: Abdomen soft, non-tender, nondistended. Normal, active bowel sounds MUSCULOSKELETAL: right foot covered with clean dressing with wound vac in place NEURO: Alert & Oriented x4 to person, place, time, situation. Moves all ext x4 Procedures PROCEDURE 1. Right foot I&D procedure 2. Right fifth metatarsal bone biopsy. Medications and IVs Current Medications Sodium Chloride 1,000 ml @ 2,000 mls/hr Q30M ONCE IV Last administered on 05/08 10:54; Start 05/08/17 at 10:43; Stop 05/08/17 at 11:12; Status DC Sodium Chloride (NS Flush) 2 ml UNSCH PRN IVF FLUSH AFTER USING IV ACCESS; Start 05/08/17 at 10:45; Stop 05/09/17 at 11:57; Status DC Insulin Human Regular (NovoLIN R INJ) 10 units ONCE ONCE SQ Last administered on 05/08/17 11:39; Start 05/08/17 at 11:15; Stop 05/08/17 at 11:18; Status DC Piperacillin Sod/ Tazobactam Sod 100 ml @ 200 mls/hr ONCE ONCE IV Last administered on 05/08/17 11:40; Start 05/08/17 at 11:15; Stop 05/08/17 at 11:44 ; Status DC Vancomycin HCl 1000 mg/Sodium Chloride 250 ml @ 250 mls/hr ONCE ONCE IV Last administered on 05/08/17 12:48; Start 05/08/17 at 11:15; Stop 05/08/17 at 12:14 ; Status DC Sodium Chloride 1,000 ml @ 999 mls/hr BOLUS ONCE IV Last administered on 05/08 13:01; Start 05/08/17 at 12:00; Stop 05/08/17 at 13:00; Status DC Insulin Human Regular (NovoLIN R INJ) 10 units ONCE ONCE IV PUSH Last administered on 05/08/17 12:47; Start 05/08/17 at 12:30; Stop 05/08/17 at 12:31 ; Status DC Piperacillin Sod/ Tazobactam Sod 50 ml @ 100 mls/hr Q6H IV ; Start 05/08/17 at 13:00; Stop 05/08/17 at 13:15; Status DC Pharmacy Profile Note 0 ml @ 0 mls/hr UNSCH OTHER ; Start 05/08/17 at 12:45; Stop 05/12/17 at 10:21; Status DC Sodium Chloride (NS Flush) 2 ml UNSCH PRN IV FLUSH FLUSH AFTER USING IV ACCESS ; Start 05/08/17 at 12:45 Sodium Chloride (NS Flush) 2 ml BID IV FLUSH Last administered on 05/20/17 23: 23; Start 05/08/17 at 21:00 Acetaminophen (Tylenol) 650 mg Q6H PRN PO PAIN 1 TO 2 AND/OR FEVER >101F Last administered on 05/16/17 12:49; Start 05/08/17 at 13:00 Acetaminophen/ Hydrocodone Bitart (Paauilo 5-325 Mg) 1 tab Q4H PRN PO PAIN SCALE 3 TO 5 Last administered on 05/14/17 19:28; Start 05/08/17 at 14:00 Morphine Sulfate (Morphine Inj) 2 mg Q2H PRN IV PUSH PAIN SCALE 6 TO 10 Last administered on 05/16/17 10:02; Start 05/08/17 at 12:45; Stop 05/16/17 at 10:05 ; Status DC Famotidine (Pepcid Inj) 10 mg Q12HR IV PUSH Last administered on 05/08/17 21: 39; Start 05/08/17 at 21:00; Stop 05/09/17 at 08:40; Status DC Ondansetron HCl (Zofran Inj) 4 mg Q6H PRN IV PUSH NAUSEA OR VOMITING Last administered on 05/14/17 04:41; Start 05/08/17 at 14:00 Albuterol Sulfate (Albuterol Neb) 2.5 mg Q2HR NEB PRN INH SOB/WHEEZING; Start 05/08/17 at 14:00 Heparin Sodium (Porcine) (Heparin Inj) 5,000 units Q12HR SQ Last administered on 05/20/17 23:22; Start 05/08/17 at 21:00; Status Future hold Miscellaneous Information 1 Q361D XX ; Start 05/08/17 at 12:45 Chlorhexidine Gluconate (Chlorhexidine 2% Cloth) Taper DAILY@04 TOP Last administered on 05/17/17 03:12; Start 05/09/17 at 04:00; Stop 05/05/18 at 03:59 Chlorhexidine Gluconate (Chlorhexidine 2% Cloth) 3 pack UNSCH PRN TOP HYGIENIC CARE; Start 05/08/17 at 12:45 Senna/Docusate Sodium (Florence-Colace) 1 tab BID PO Last administered on 08:58; Start 05/08/17 at 21:00; Stop 05/12/17 at 10:42; Status DC Magnesium Hydroxide (Milk Of Magnesia Liq) 30 ml Q12H PRN PO MILD - MODERATE CONSTIPATION Last administered on 05/18/17 18:55; Start 05/08/17 at 14:00 Sennosides (Senokot) 17.2 mg Q12HR PRN PO MODERATE - SEVERE CONSTIPATION; Start 05/08/17 at 21:00; Stop 05/12/17 at 10:42; Status DC Bisacodyl (Dulcolax Supp) 10 mg DAILY PRN RECTAL SEVERE CONSITIPATION; Start at 14:00; Stop 05/12/17 at 10:42; Status DC Lactulose (Lactulose Liq) 30 ml DAILY PRN PO SEVERE CONSITIPATION; Start at 14:00; Stop 05/12/17 at 10:42; Status DC Sodium Chloride 1,000 ml @ 1,000 mls/hr Q1H IV ; Start 05/08/17 at 12:48; Stop 05/08/17 at 14:47; Status DC Dextrose/Sodium Chloride 1,000 ml @ 200 mls/hr Q5H IV Last administered on 08:19; Start 05/08/17 at 12:48; Stop 05/09/17 at 11:56; Status DC Insulin Human Regular 100 units/ Sodium Chloride 100 ml @ 1.38 mls/hr TITRATE IV Last administered on 05/08/17t 13:57; Start 05/08/17 at 14:00; Stop at 08:00; Status DC Potassium Chloride 100 ml @ 50 mls/hr Q2H PRN IV SEE LABEL COMMENTS; Start at 13:00; Stop 05/12/17 at 13:56; Status DC Potassium Chloride 100 ml @ 50 mls/hr Q2H PRN IV SEE LABEL COMMENTS Last administered on 05/09/17t 01:01; Start 05/08/17 at 13:00; Stop 05/12/17 at 13:56 ; Status DC Potassium Chloride 100 ml @ 50 mls/hr Q2H PRN IV SEE LABEL COMMENTS; Start at 13:00; Stop 05/12/17 at 13:56; Status DC Potassium Chloride 100 ml @ 50 mls/hr Q2H PRN IV SEE LABEL COMMENTS; Start at 13:00; Stop 05/12/17 at 13:56; Status DC Sodium Bicarbonate (Sodium Bicarbonate 8.4% Inj) 100 meq UNSCH PRN IV SEE LABEL COMMENTS; Start 05/08/17 at 13:00; Stop 05/12/17 at 13:56; Status DC Sodium Bicarbonate (Sodium Bicarbonate 8.4% Inj) 50 meq UNSCH PRN IV SEE LABEL COMMENTS; Start 05/08/17 at 13:00; Stop 05/12/17 at 13:56; Status DC Sodium Phosphate 15 mmol/Sodium Chloride 105 ml @ 25 mls/hr UNSCH PRN IV SEE LABEL COMMENTS; Start 05/08/17 at 13:00; Stop 05/12/17 at 13:56; Status DC Miscellaneous Information 1 Q361D XX ; Start 05/08/17 at 13:00; Stop 05/08/17 at 13:09; Status DC Chlorhexidine Gluconate (Chlorhexidine 2% Cloth) 3 pack Taper DAILY@04 TOP ; Start 05/09/17 at 04:00; Stop 05/09/17 at 04:00; Status DC Chlorhexidine Gluconate (Chlorhexidine 2% Cloth) 3 pack UNSCH PRN TOP HYGIENIC CARE; Start 05/08/17 at 13:00; Stop 05/08/17 at 13:09; Status DC Sodium Chloride 1,000 ml @ 999 mls/hr BOLUS ONCE IV Last administered on 05/08t 13:23; Start 05/08/17 at 13:00; Stop 05/08/17 at 14:00; Status DC Hydralazine HCl (Apresoline Inj) 10 mg Q1HR PRN IV PUSH SBP>170, DBP>90; Start 05/08/17 at 13:15 Nitroglycerin (Nitroglycerin 2% Oint) 2 inch Q6HR PRN TOPICAL SBP>170, DBP>90; Start 05/08/17 at 14:00 Vancomycin HCl 500 mg/Sodium Chloride 100 ml @ 200 mls/hr ONCE ONCE IV ; Start 05/08/17 at 15:00; Stop 05/08/17 at 15:29; Status DC Piperacillin Sod/ Tazobactam Sod 50 ml @ 100 mls/hr Q6H IV Last administered on 05/12/17t 10:12; Start 05/08/17 at 17:00; Stop 05/12/17 at 10:21; Status DC Magnesium Oxide (Mag-Ox) 800 mg UNSCH PRN PO For Magnesium 1.2 - 1.6 mg/dL; Start 05/08/17 at 21:45; Stop 05/12/17 at 13:58; Status DC Magnesium Sulfate 4 gm/Sodium Chloride 100 ml @ 50 mls/hr UNSCH PRN IV For Magnesium 0.9 - 1.1 mg/dL; Start 05/08/17 at 21:45; Stop 05/12/17 at 13:58; Status DC Magnesium Sulfate 2 gm/Sodium Chloride 100 ml @ 50 mls/hr UNSCH PRN IV For Magnesium 1.2 - 1.6 mg/dL; Start 05/08/17 at 21:45; Stop 05/12/17 at 13:58; Status DC Potassium Chloride 100 ml @ 50 mls/hr Q2H PRN IV For Potassium 2.8 - 3.2 mEq/L ; Start 05/08/17 at 21:45; Stop 05/12/17 at 13:58; Status DC Potassium Chloride 100 ml @ 50 mls/hr Q2H PRN IV For Potassium 3.3 - 3.5 mEq/L ; Start 05/08/17 at 21:45; Stop 05/12/17 at 13:58; Status DC Potassium Chloride 100 ml @ 50 mls/hr Q2H PRN IV For Potassium 2.8 - 3.2 mEq/L ; Start 05/08/17 at 21:45; Stop 05/12/17 at 13:58; Status DC Potassium Chloride 100 ml @ 25 mls/hr UNSCH PRN IV For Potassium 3.3 - 3.5 mEq /L; Start 05/08/17 at 21:45; Stop 05/12/17 at 13:58; Status DC Potassium Phosphate (K-Phos) 2,000 mg Q4H PRN PO For Phosphorus < 2.5 mg/dL; Start 05/08/17 at 21:45; Stop 05/12/17 at 13:58; Status DC Potassium Phosphate (K-Phos) 2,000 mg UNSCH PRN PO/TUBE SEE LABEL COMMENTS; Start 05/08/17 at 21:45; Stop 05/12/17 at 13:58; Status DC Potassium Phosphate 30 mmol/ Sodium Chloride 260 ml @ 42 mls/hr UNSCH PRN IV SEE LABEL COMMENTS Last administered on 05/08/17 22:25; Start 05/08/17 at 21:45 ; Stop 05/12/17 at 13:58; Status DC Sodium Phosphate 30 mmol/Sodium Chloride 250 ml @ 42 mls/hr UNSCH PRN IV For Phosphorus < 2.5 mg/dL; Start 05/08/17 at 21:45; Stop 05/12/17 at 13:58; Status DC Miscellaneous Information 1 ONCE ONCE .XX Last administered on 05/09/17 08:00 ; Start 05/09/17 at 08:00; Stop 05/09/17 at 08:01; Status DC Miscellaneous Information 1 ONCE ONCE .XX Last administered on 05/09/17 08:00 ; Start 05/09/17 at 08:00; Stop 05/09/17 at 08:01; Status DC Insulin Detemir (Levemir Inj) 10 units BID SQ Last administered on 05/20/17 23 :41; Start 05/09/17 at 09:00 Insulin Human Regular (NovoLIN R SUPPLEMENTAL SCALE) 1 ACHS SLIDING SCALE SQ Last administered on 05/09/17 08:00; Start 05/09/17 at 08:00; Stop 05/09/17 at 11:00; Status DC Dextrose (D50w (Vial) Inj) 50 ml UNSCH PRN IV PUSH HYPOGLYCEMIA-SEE COMMENTS; Start 05/09/17 at 08:00 Glucagon (Glucagon Inj) 1 mg UNSCH PRN OTHER HYPOGLYCEMIA-SEE COMMENTS; Start 05/09/17 at 08:00 Famotidine (Pepcid) 20 mg BID PO Last administered on 05/20/17 23:21; Start at 09:00 Insulin Human Regular (NovoLIN R SUPPLEMENTAL SCALE) 1 ACHS SLIDING SCALE SQ Last administered on 05/20/17 23:46; Start 05/09/17 at 12:00 Vancomycin HCl 1500 mg/Sodium Chloride 515 ml @ 257.5 mls/ hr Q24H IV Last administered on 05/11/17 18:01; Start 05/09/17 at 15:00; Stop 05/11/17 at 19:01 ; Status DC Miscellaneous Information SPECIFIC LAB TO BE ... ONCE ONCE .XX ; Start 05/11 at 14:45; Stop 05/11/17 at 14:46; Status DC Gadodiamide (Omniscan Pf Inj) 14 ml STK-MED ONCE IV PUSH Last administered on 16:02; Start 05/09/17 at 16:02; Stop 05/09/17 at 16:03; Status DC Bacitracin (Bacitracin Oint Packet) 0.9 gm DAILY TOPICAL Last administered on 08:22; Start 05/10/17 at 09:00; Stop 05/13/17 at 08:43; Status DC Bacitracin (Baciguent Oint) 1 applic DAILY TOPICAL Last administered on 09:21; Start 05/11/17 at 09:00 Vancomycin HCl 1100 mg/Sodium Chloride 261 ml @ 250 mls/hr Q12H IV Last administered on 05/12/17 09:05; Start 05/12/17 at 10:00; Stop 05/12/17 at 10:21 ; Status DC Miscellaneous Information SPECIFIC LAB TO BE DRAWN:VANCO TROUGH DATE TO BE .Richard ONCE ONCE .XX ; Start 05/12/17 at 21:45; Stop 05/12/17 at 21:45; Status DC Cefazolin Sodium/ Dextrose 50 ml @ 100 mls/hr Q8H IV Last administered on 05/21 04:35; Start 05/12/17 at 11:00; Stop 06/23/17 at 10:59 Insulin Human Regular (NovoLIN R INJ) 10 units ONCE ONCE IV PUSH Last administered on 05/14/17 04:39; Start 05/14/17 at 04:30; Stop 05/14/17 at 04:31 ; Status DC Piperacillin Sod/ Tazobactam Sod 50 ml @ 100 mls/hr Q6H IV Last administered on 05/21/17 04:34; Start 05/15/17 at 17:00 Dextrose (D50w (Syr) Inj) 50 ml STK-MED ONCE .ROUTE Last administered on 16:36; Start 05/15/17 at 16:34; Stop 05/15/17 at 16:35; Status DC Lidocaine HCl (Xylocaine 2% Inj) 50 ml STK-MED ONCE .ROUTE Last administered on 05/15/17 19:57; Start 05/15/17 at 17:14; Stop 05/15/17 at 17:15; Status DC Bupivacaine HCl (Marcaine Pf 0.25% Inj) 30 ml STK-MED ONCE .ROUTE Last administered on 05/15/17 19:57; Start 05/15/17 at 17:17; Stop 05/15/17 at 17:18 ; Status DC Neomycin/Polymyxin (Neosporin G.u. Irr) 2 ml ONCE ONCE IRRIGATION Last administered on 05/15/17 20:01; Start 05/15/17 at 20:01; Stop 05/15/17 at 20:03 ; Status DC Acetaminophen 100 ml @ As Directed STK-MED ONCE IV ; Start 05/15/17 at 20:06; Stop 05/15/17 at 20:07; Status DC Miscellaneous Information ALL NURSING DEPARTME... UNSCH PRN .XX SEE LABEL COMMENTS; Start 05/15/17 at 20:31; Stop 05/16/17 at 20:30; Status DC Acetaminophen/ Hydrocodone Bitart (Paauilo 10-325 Mg) 1 tab Q4H PRN PO Pain>5 Last administered on 05/21/17 02:22; Start 05/16/17 at 10:15 Morphine Sulfate (Morphine Inj) 2 mg Q6H PRN IV PUSH BREAKTHROUGH PAIN Last administered on 05/17/17 12:35; Start 05/16/17 at 10:15 Diphenhydramine HCl (Benadryl Inj) 50 mg STK-MED ONCE .ROUTE Last administered on 05/16/17 17:04; Start 05/16/17 at 17:01; Stop 05/16/17 at 17:02; Status DC Miscellaneous Information ALL NURSING DEPARTME... UNSCH PRN .XX SEE LABEL COMMENTS; Start 05/17/17 at 08:53; Stop 05/18/17 at 08:52; Status DC A/P Assessment and Plan Septicemia with MSSA Right diabetic foot infection/cellulitis Continue Ancef as well as Zosyn Appreciate input from ID Repeat culture NTD Right foot abscess with ulcer stage III with cellulitis Appreciate input from podiatry - s/p wound VAC placement Status post Right foot I and D 05/15/17 and 05/17/17 . Right metatarsal foot biopsy ; negative for osteomyelitis. Continue current IV antibiotics including Ancef and Zosyn continue pain control. Hyperosmolar nonketotic state in patient with type 2 diabetes-resolved Currently on Levemir 10 units twice a day and insulin sliding scale A1c 15.5, patient will need outpatient follow-up with endocrinology lung nodule- f/u as outpatient with CT chest- this was d/w the patient. Hyponatremia Resolved Septic shock Resolved Discharge Planning when ok with ID and podiatry. Francie Chaves MD May 21, 2017 08:27
[2017-05-21] MEDS: FAMOTIDINE 20 MG TAB PO SCH ×2 (08:38→21:49)
[2017-05-21] MEDS: HEPARIN SODIUM - SQ 10,000 UNITS/ML VIAL SQ SCH ×2 (08:39→21:49)
[2017-05-21] MEDS: SODIUM CHLORIDE 0.9% FLUSH 10 ML FLUSH IV FLUSH SCH ×2 (08:39→21:49)
[2017-05-21] MEDS: INSULIN DETEMIR 100 UNITS/ML VIAL SQ SCH ×2 (08:43→21:51)
[2017-05-21] MEDS: BACITRACIN TOP OINT 15 GM TUBE TOPICAL SCH (08:44)
[2017-05-21 11:50] VITALS: BP 112/62; PULSE 84; RESP 20; TEMP 97.9; O2SAT 96
[2017-05-21 15:50] VITALS: BP 99/57; PULSE 87; RESP 20; TEMP 98.8; O2SAT 95
[2017-05-21] MEDS: MORPHINE SULFATE 4 MG/ML INJ IV PUSH PRN (15:55)
[2017-05-21] MEDS: ONDANSETRON HCL 4 MG/2 ML VIAL IV PUSH PRN (15:55)
--- NOTE | 2017-05-21 16:09 | PD.POD ---
Subjective Podiatric Problems s/p I&D with bone biopsy 05/17/17 Dr Ni Calvert foot. Pain score: 0 Past Med/Surg/Social History Social History Smoking Status: Current Every Day Smoker Objective Vital Signs Vital Signs Date Time Temp Pulse Resp B/P (MAP) Pulse Ox O2 Delivery O2 Flow Rate FiO2 05/21/17 15:50 98.8 87 20 99/57 (71) 95 05/21/17 11:50 97.9 84 20 112/62 (79) 96 05/21/17 07:50 97.6 88 20 121/76 (91) 100 05/21/17 04:32 16 05/21/17 04:00 97.9 87 17 125/76 (92) 95 05/21/17 00:00 99.0 94 17 139/88 (105) 97 05/20/17 20:00 98.5 86 17 117/67 (84) 97 Coded Allergies: No Known Allergies (Unverified , 05/08/17) Physical Exam Remarks Reduced edema and erythema. Wound vac intact and functioning properly R foot. Assessment & Plan A/P s/p I&D with bone biopsy 05/17/17 Dr Ni Calvert foot. Continue wound vac R foot Ok with d/c when ready per primary team and follow up with Dr Dan outpatient in 2-3 weeks Heidi Handy DPM May 21, 2017 16:09
--- NOTE | 2017-05-21 16:54 | PD.WCN.NOT ---
Wound Consult Description: Right plantar/medial foot Communicated with: MESERET Rogers Recommendation: To change wound VAC M-W-F to right foot with settings @125mmHg low continuous Additional Information: Patient seen on for wound VAC change as ordered Neg Pressure Wound Therapy Wound Location Wound Location: Right plantar/medial foot Wound Description Length: ~7cm Width: ~9cm Depth: 1cm Wound bed appearance: ~80% Tendon ~20% Red non granulating tissue Periwound appearance: Other (macerated) Settings Suction: 125 mmHg, Continuous Intensity: Low Other Information: Bridged, Windowpaned Foam type: Black Number of pieces: 3 (2 used in each wound bed and 1 used to bridge on dorsal foot for trac pad placement) Additonal Information Wound VAC dressing removed from right foot to reveal a full thickness post surgical wound with no active drainage, no odor, with open wound margins and macerated periwound that was described and measured above. Wound was cleansed with NS and gauze. Periwound of intact macerated skin was prepped using Cavilon spray and window paned using drape to protect intact skin. Oil emulsion was used to protect tendon from black granufoam that was placed in wound bed and secured with drape. Dorsal right lateral foot is noted with a full thickness wound measuring 4.5cm x 1.8cm x 0.6cm of ~80% pink tissue and ~10% red non granulating tissue and ~10% tendon that was covered with oil emulsion and included in the wound VAC after window paning and bridging trac pad to dorsum. Wound VAC turned on with settings @125mmHg low continuous suction without leaks. Rolled gauze was used to cover VAC drape and protect against tugging on tubing. Franklin Wrap was placed for further protection as patient requests. Patient tolerated wound VAC application well with breakthrough medication given. Next wound VAC change is scheduled for Friday05/23/17. There is a partial thickness skinloss area measuring ~1cm circumferentially on the 5th lateral met head with 100% red non granulating moist tissue that was cleansed with NS and gauze. Single layer Xeroform was applied to open wound bed with no drainage and macerated periwound. 2x2 was used to cover Xeroform and secured with rolled gauze and franklin wrap with the rest of the foot. Patient states Friday night he woke up in a wet bed. He was cleansed up and states that the wound VAC was not changed. When the history was viewed it was apparent that there was no interruption in the wound VAC dressing. Arely Bennett [facility] May 21, 2017 16:54
--- NOTE | 2017-05-21 19:10 | HHI.PR ---
Addendum to Inpatient Note Additional Information pt seen around 1800 full note to follow R foot edematous, + mildly erythematous VACin place, clx neg dc zosyn cont cefazoline dw Rn Marla Pritchard MD May 21, 2017 19:10
[2017-05-21 20:00] VITALS: BP 114/65; PULSE 96; RESP 17; TEMP 98.7; O2SAT 100
--- NOTE | 2017-05-21 23:03 | HHI.IDPN ---
Subjective Subjective Remarks Delayed entry; pt was seen today prior to surgery pt seen around 1800 full note to follow doing good afebrile sp R foot I+D with VAC placement path and clx are negative CXR with 1.2 cm nodular density in lateral left midlung zone. Recommended chest CT Antibiotics cefazoline zosyn Past Medical History uncontrolled DM Allergies: Coded Allergies: No Known Allergies (Unverified , 05/08/17) Objective . Vital Signs Date Time Temp Pulse Resp B/P (MAP) Pulse Ox O2 Delivery O2 Flow Rate FiO2 05/21/17 20:00 98.7 96 17 114/65 (81) 100 05/21/17 15:50 98.8 87 20 99/57 (71) 95 05/21/17 11:50 97.9 84 20 112/62 (79) 96 05/21/17 07:50 97.6 88 20 121/76 (91) 100 05/21/17 04:32 16 05/21/17 04:00 97.9 87 17 125/76 (92) 95 05/21/17 00:00 99.0 94 17 139/88 (105) 97 05/21/17 05/21/17 05/22/17 15:00 23:00 07:00 Intake Total 100 ml 682 ml Output Total 1200 ml Balance 100 ml -518 ml Intake Oral 582 ml IV Total 100 ml 100 ml Output Urine Total 1200 ml # Bowel Movements 3 . Laboratory Tests Test 05/21/17 07:13 White Blood Count 7.1 TH/MM3 Red Blood Count 2.99 MIL/MM3 Hemoglobin 8.2 GM/DL Hematocrit 24.6 % Mean Corpuscular Volume 82.2 FL Mean Corpuscular Hemoglobin 27.3 PG Mean Corpuscular Hemoglobin Concent 33.2 % Red Cell Distribution Width 13.2 % Platelet Count 486 TH/MM3 Mean Platelet Volume 7.1 FL Neutrophils (%) (Auto) 60.7 % Lymphocytes (%) (Auto) 24.8 % Monocytes (%) (Auto) 9.2 % Eosinophils (%) (Auto) 4.5 % Basophils (%) (Auto) 0.8 % Neutrophils # (Auto) 4.3 TH/MM3 Lymphocytes # (Auto) 1.8 TH/MM3 Monocytes # (Auto) 0.7 TH/MM3 Eosinophils # (Auto) 0.3 TH/MM3 Basophils # (Auto) 0.1 TH/MM3 CBC Comment DIFF FINAL Differential Comment Imaging Last Impressions Chest X-Ray 05/15/17 0000 Signed Impressions: Service Date/Time: April 08:47 - CONCLUSION: 1.2 cm nodular density in lateral left midlung zone. Recommend chest CT without contrast to evaluate for pulmonary nodule. No other acute cardiopulmonary disease identified. Cyrus Sears MD Foot MRI 05/09/17 0000 Signed Impressions: Service Date/Time: Tuesday, May 09, 2017 15:29 - CONCLUSION: Abnormal head of the fifth metatarsal suggestive of edema and cortical enhancement associated with soft tissue swelling. Early osteomyelitis suspect. Jordan Tovar MD Head CT 05/08/17 0000 Signed Impressions: Service Date/Time: April 14:16 - CONCLUSION: 1. No acute intracranial abnormality is identified. Raghavendra Lim MD Foot X-Ray 05/08/17 0000 Signed Impressions: Service Date/Time: April 11:18 - CONCLUSION: 1. Soft tissue swelling lateral foot near the fifth MTP. No acute bony abnormality. No radiopaque foreign body. Francisco Grider MD Physical Exam ONSTITUTIONAL/GENERAL: This is a thin ill appearing middle aged patient, in no apparent distress. TUBES/LINES/DRAINS: SKIN: No jaundice, rashes, or lesions. CARDIOVASCULAR: Regular rate and rhythm without murmurs, gallops, or rubs. No JVD. Peripheral pulses symmetric. Good pedal pulses perifery appears well perfused RESPIRATORY/CHEST: Symmetric, unlabored respirations. Clear to auscultation. Breath sounds equal bilaterally. No wheezes, rales, or rhonchi. GASTROINTESTINAL: Abdomen soft, non-tender, nondistended. Bowel sounds present. 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
[2017-05-22] VITALS: BP 102/56; PULSE 95; RESP 17; TEMP 98.7; O2SAT 96
[2017-05-22] MEDS: ACETAMINOPHEN/HYDROcodone 325 MG/10 MG TAB PO PRN ×6 (02:06→22:38)
[2017-05-22] MEDS: ceFAZolin 2 GM PREMIX 50 ML IV SCH ×3 (02:08→18:12)
[2017-05-22] MEDS: CHLORHEXIDINE GLUCONATE 2 % 1 PACK (2 CLOTHS) TOP SCH (02:09)
[2017-05-22 04:00] VITALS: BP 124/63; PULSE 81; RESP 17; TEMP 97.6; O2SAT 98
[2017-05-22] MEDS: ONDANSETRON HCL 4 MG/2 ML VIAL IV PUSH PRN (06:07)
[2017-05-22 07:30] VITALS: BP 127/65; PULSE 100; RESP 20; TEMP 97.2; O2SAT 98
--- NOTE | 2017-05-22 07:47 | HHI.PR ---
Subjective Remarks in no distress. afebrile. pain is controlled. no new complaints. Objective Vitals Vital Signs Date Time Temp Pulse Resp B/P (MAP) Pulse Ox O2 Delivery O2 Flow Rate FiO2 05/22/17 04:00 97.6 81 17 124/63 (83) 98 05/22/17 00:00 98.7 95 17 102/56 (71) 96 05/21/17 20:00 98.7 96 17 114/65 (81) 100 05/21/17 15:50 98.8 87 20 99/57 (71) 95 05/21/17 11:50 97.9 84 20 112/62 (79) 96 05/21/17 07:50 97.6 88 20 121/76 (91) 100 I/O 05/21/17 05/21/17 05/21/17 05/22/17 05/22/17 05/22/17 07:00 15:00 23:00 07:00 15:00 23:00 Intake Total 100 ml 682 ml 530 ml Output Total 200 ml 1200 ml 1650 ml Balance -200 ml 100 ml -518 ml -1120 ml Intake Oral 582 ml 480 ml IV Total 100 ml 100 ml 50 ml Output Urine Total 200 ml 1200 ml 1650 ml # Voids 1 # Bowel Movements 3 Result Diagram: 05/21/17 0713 05/18/17 1503 Imaging Last Impressions Chest X-Ray 05/15/17 0000 Signed Impressions: Service Date/Time: April 08:47 - CONCLUSION: 1.2 cm nodular density in lateral left midlung zone. Recommend chest CT without contrast to evaluate for pulmonary nodule. No other acute cardiopulmonary disease identified. Cyrus Sears MD Foot MRI 05/09/17 0000 Signed Impressions: Service Date/Time: Tuesday, May 09, 2017 15:29 - CONCLUSION: Abnormal head of the fifth metatarsal suggestive of edema and cortical enhancement associated with soft tissue swelling. Early osteomyelitis suspect. Jordan Tovar MD Head CT 05/08/17 0000 Signed Impressions: Service Date/Time: April 14:16 - CONCLUSION: 1. No acute intracranial abnormality is identified. Raghavendra Lim MD Foot X-Ray 05/08/17 0000 Signed Impressions: Service Date/Time: April 11:18 - CONCLUSION: 1. Soft tissue swelling lateral foot near the fifth MTP. No acute bony abnormality. No radiopaque foreign body. Francisco Grider MD Objective Remarks GENERAL: This is a well-nourished, well-developed patient, in no apparent distress. CARDIOVASCULAR: Regular rate and regular rhythm without murmurs, gallops, or rubs. RESPIRATORY: Clear to auscultation. Breath sounds equal bilaterally. No wheezes , rales, or rhonchi. GASTROINTESTINAL: Abdomen soft, non-tender, nondistended. Normal, active bowel sounds MUSCULOSKELETAL: right foot covered with clean dressing with wound vac in place NEURO: Alert & Oriented x4 to person, place, time, situation. Moves all ext x4 Procedures PROCEDURE 1. Right foot I&D procedure 2. Right fifth metatarsal bone biopsy. Medications and IVs Current Medications Sodium Chloride 1,000 ml @ 2,000 mls/hr Q30M ONCE IV Last administered on 05/08 10:54; Start 05/08/17 at 10:43; Stop 05/08/17 at 11:12; Status DC Sodium Chloride (NS Flush) 2 ml UNSCH PRN IVF FLUSH AFTER USING IV ACCESS; Start 05/08/17 at 10:45; Stop 05/09/17 at 11:57; Status DC Insulin Human Regular (NovoLIN R INJ) 10 units ONCE ONCE SQ Last administered on 05/08/17 11:39; Start 05/08/17 at 11:15; Stop 05/08/17 at 11:18; Status DC Piperacillin Sod/ Tazobactam Sod 100 ml @ 200 mls/hr ONCE ONCE IV Last administered on 05/08/17 11:40; Start 05/08/17 at 11:15; Stop 05/08/17 at 11:44 ; Status DC Vancomycin HCl 1000 mg/Sodium Chloride 250 ml @ 250 mls/hr ONCE ONCE IV Last administered on 05/08/17 12:48; Start 05/08/17 at 11:15; Stop 05/08/17 at 12:14 ; Status DC Sodium Chloride 1,000 ml @ 999 mls/hr BOLUS ONCE IV Last administered on 05/08 13:01; Start 05/08/17 at 12:00; Stop 05/08/17 at 13:00; Status DC Insulin Human Regular (NovoLIN R INJ) 10 units ONCE ONCE IV PUSH Last administered on 05/08/17 12:47; Start 05/08/17 at 12:30; Stop 05/08/17 at 12:31 ; Status DC Piperacillin Sod/ Tazobactam Sod 50 ml @ 100 mls/hr Q6H IV ; Start 05/08/17 at 13:00; Stop 05/08/17 at 13:15; Status DC Pharmacy Profile Note 0 ml @ 0 mls/hr UNSCH OTHER ; Start 05/08/17 at 12:45; Stop 05/12/17 at 10:21; Status DC Sodium Chloride (NS Flush) 2 ml UNSCH PRN IV FLUSH FLUSH AFTER USING IV ACCESS ; Start 05/08/17 at 12:45 Sodium Chloride (NS Flush) 2 ml BID IV FLUSH Last administered on 05/21/17 21: 49; Start 05/08/17 at 21:00 Acetaminophen (Tylenol) 650 mg Q6H PRN PO PAIN 1 TO 2 AND/OR FEVER >101F Last administered on 05/16/17 12:49; Start 05/08/17 at 13:00 Acetaminophen/ Hydrocodone Bitart ([place] 5-325 Mg) 1 tab Q4H PRN PO PAIN SCALE 3 TO 5 Last administered on 05/14/17 19:28; Start 05/08/17 at 14:00 Morphine Sulfate (Morphine Inj) 2 mg Q2H PRN IV PUSH PAIN SCALE 6 TO 10 Last administered on 05/16/17 10:02; Start 05/08/17 at 12:45; Stop 05/16/17 at 10:05 ; Status DC Famotidine (Pepcid Inj) 10 mg Q12HR IV PUSH Last administered on 05/08/17 21: 39; Start 05/08/17 at 21:00; Stop 05/09/17 at 08:40; Status DC Ondansetron HCl (Zofran Inj) 4 mg Q6H PRN IV PUSH NAUSEA OR VOMITING Last administered on 05/22/17 06:07; Start 05/08/17 at 14:00 Albuterol Sulfate (Albuterol Neb) 2.5 mg Q2HR NEB PRN INH SOB/WHEEZING; Start 05/08/17 at 14:00 Heparin Sodium (Porcine) (Heparin Inj) 5,000 units Q12HR SQ Last administered on 05/21/17 21:49; Start 05/08/17 at 21:00; Status Future hold Miscellaneous Information 1 Q361D XX ; Start 05/08/17 at 12:45 Chlorhexidine Gluconate (Chlorhexidine 2% Cloth) Taper DAILY@04 TOP Last administered on 05/17/17 03:12; Start 05/09/17 at 04:00; Stop 05/05/18 at 03:59 Chlorhexidine Gluconate (Chlorhexidine 2% Cloth) 3 pack UNSCH PRN TOP HYGIENIC CARE; Start 05/08/17 at 12:45 Senna/Docusate Sodium ([place]-Colace) 1 tab BID PO Last administered on 08:58; Start 05/08/17 at 21:00; Stop 05/12/17 at 10:42; Status DC Magnesium Hydroxide (Milk Of Magnesia Liq) 30 ml Q12H PRN PO MILD - MODERATE CONSTIPATION Last administered on 05/18/17 18:55; Start 05/08/17 at 14:00 Sennosides (Senokot) 17.2 mg Q12HR PRN PO MODERATE - SEVERE CONSTIPATION; Start 05/08/17 at 21:00; Stop 05/12/17 at 10:42; Status DC Bisacodyl (Dulcolax Supp) 10 mg DAILY PRN RECTAL SEVERE CONSITIPATION; Start at 14:00; Stop 05/12/17 at 10:42; Status DC Lactulose (Lactulose Liq) 30 ml DAILY PRN PO SEVERE CONSITIPATION; Start at 14:00; Stop 05/12/17 at 10:42; Status DC Sodium Chloride 1,000 ml @ 1,000 mls/hr Q1H IV ; Start 05/08/17 at 12:48; Stop 05/08/17 at 14:47; Status DC Dextrose/Sodium Chloride 1,000 ml @ 200 mls/hr Q5H IV Last administered on 08:19; Start 05/08/17 at 12:48; Stop 05/09/17 at 11:56; Status DC Insulin Human Regular 100 units/ Sodium Chloride 100 ml @ 1.38 mls/hr TITRATE IV Last administered on 05/08/17t 13:57; Start 05/08/17 at 14:00; Stop at 08:00; Status DC Potassium Chloride 100 ml @ 50 mls/hr Q2H PRN IV SEE LABEL COMMENTS; Start at 13:00; Stop 05/12/17 at 13:56; Status DC Potassium Chloride 100 ml @ 50 mls/hr Q2H PRN IV SEE LABEL COMMENTS Last administered on 05/09/17t 01:01; Start 05/08/17 at 13:00; Stop 05/12/17 at 13:56 ; Status DC Potassium Chloride 100 ml @ 50 mls/hr Q2H PRN IV SEE LABEL COMMENTS; Start at 13:00; Stop 05/12/17 at 13:56; Status DC Potassium Chloride 100 ml @ 50 mls/hr Q2H PRN IV SEE LABEL COMMENTS; Start at 13:00; Stop 05/12/17 at 13:56; Status DC Sodium Bicarbonate (Sodium Bicarbonate 8.4% Inj) 100 meq UNSCH PRN IV SEE LABEL COMMENTS; Start 05/08/17 at 13:00; Stop 05/12/17 at 13:56; Status DC Sodium Bicarbonate (Sodium Bicarbonate 8.4% Inj) 50 meq UNSCH PRN IV SEE LABEL COMMENTS; Start 05/08/17 at 13:00; Stop 05/12/17 at 13:56; Status DC Sodium Phosphate 15 mmol/Sodium Chloride 105 ml @ 25 mls/hr UNSCH PRN IV SEE LABEL COMMENTS; Start 05/08/17 at 13:00; Stop 05/12/17 at 13:56; Status DC Miscellaneous Information 1 Q361D XX ; Start 05/08/17 at 13:00; Stop 05/08/17 at 13:09; Status DC Chlorhexidine Gluconate (Chlorhexidine 2% Cloth) 3 pack Taper DAILY@04 TOP ; Start 05/09/17 at 04:00; Stop 05/09/17 at 04:00; Status DC Chlorhexidine Gluconate (Chlorhexidine 2% Cloth) 3 pack UNSCH PRN TOP HYGIENIC CARE; Start 05/08/17 at 13:00; Stop 05/08/17 at 13:09; Status DC Sodium Chloride 1,000 ml @ 999 mls/hr BOLUS ONCE IV Last administered on 05/08t 13:23; Start 05/08/17 at 13:00; Stop 05/08/17 at 14:00; Status DC Hydralazine HCl (Apresoline Inj) 10 mg Q1HR PRN IV PUSH SBP>170, DBP>90; Start 05/08/17 at 13:15 Nitroglycerin (Nitroglycerin 2% Oint) 2 inch Q6HR PRN TOPICAL SBP>170, DBP>90; Start 05/08/17 at 14:00 Vancomycin HCl 500 mg/Sodium Chloride 100 ml @ 200 mls/hr ONCE ONCE IV ; Start 05/08/17 at 15:00; Stop 05/08/17 at 15:29; Status DC Piperacillin Sod/ Tazobactam Sod 50 ml @ 100 mls/hr Q6H IV Last administered on 05/12/17t 10:12; Start 05/08/17 at 17:00; Stop 05/12/17 at 10:21; Status DC Magnesium Oxide (Mag-Ox) 800 mg UNSCH PRN PO For Magnesium 1.2 - 1.6 mg/dL; Start 05/08/17 at 21:45; Stop 05/12/17 at 13:58; Status DC Magnesium Sulfate 4 gm/Sodium Chloride 100 ml @ 50 mls/hr UNSCH PRN IV For Magnesium 0.9 - 1.1 mg/dL; Start 05/08/17 at 21:45; Stop 05/12/17 at 13:58; Status DC Magnesium Sulfate 2 gm/Sodium Chloride 100 ml @ 50 mls/hr UNSCH PRN IV For Magnesium 1.2 - 1.6 mg/dL; Start 05/08/17 at 21:45; Stop 05/12/17 at 13:58; Status DC Potassium Chloride 100 ml @ 50 mls/hr Q2H PRN IV For Potassium 2.8 - 3.2 mEq/L ; Start 05/08/17 at 21:45; Stop 05/12/17 at 13:58; Status DC Potassium Chloride 100 ml @ 50 mls/hr Q2H PRN IV For Potassium 3.3 - 3.5 mEq/L ; Start 05/08/17 at 21:45; Stop 05/12/17 at 13:58; Status DC Potassium Chloride 100 ml @ 50 mls/hr Q2H PRN IV For Potassium 2.8 - 3.2 mEq/L ; Start 05/08/17 at 21:45; Stop 05/12/17 at 13:58; Status DC Potassium Chloride 100 ml @ 25 mls/hr UNSCH PRN IV For Potassium 3.3 - 3.5 mEq /L; Start 05/08/17 at 21:45; Stop 05/12/17 at 13:58; Status DC Potassium Phosphate (K-Phos) 2,000 mg Q4H PRN PO For Phosphorus < 2.5 mg/dL; Start 05/08/17 at 21:45; Stop 05/12/17 at 13:58; Status DC Potassium Phosphate (K-Phos) 2,000 mg UNSCH PRN PO/TUBE SEE LABEL COMMENTS; Start 05/08/17 at 21:45; Stop 05/12/17 at 13:58; Status DC Potassium Phosphate 30 mmol/ Sodium Chloride 260 ml @ 42 mls/hr UNSCH PRN IV SEE LABEL COMMENTS Last administered on 05/08/17 22:25; Start 05/08/17 at 21:45 ; Stop 05/12/17 at 13:58; Status DC Sodium Phosphate 30 mmol/Sodium Chloride 250 ml @ 42 mls/hr UNSCH PRN IV For Phosphorus < 2.5 mg/dL; Start 05/08/17 at 21:45; Stop 05/12/17 at 13:58; Status DC Miscellaneous Information 1 ONCE ONCE .XX Last administered on 05/09/17 08:00 ; Start 05/09/17 at 08:00; Stop 05/09/17 at 08:01; Status DC Miscellaneous Information 1 ONCE ONCE .XX Last administered on 05/09/17 08:00 ; Start 05/09/17 at 08:00; Stop 05/09/17 at 08:01; Status DC Insulin Detemir (Levemir Inj) 10 units BID SQ Last administered on 05/21/17 21 :51; Start 05/09/17 at 09:00 Insulin Human Regular (NovoLIN R SUPPLEMENTAL SCALE) 1 ACHS SLIDING SCALE SQ Last administered on 05/09/17 08:00; Start 05/09/17 at 08:00; Stop 05/09/17 at 11:00; Status DC Dextrose (D50w (Vial) Inj) 50 ml UNSCH PRN IV PUSH HYPOGLYCEMIA-SEE COMMENTS; Start 05/09/17 at 08:00 Glucagon (Glucagon Inj) 1 mg UNSCH PRN OTHER HYPOGLYCEMIA-SEE COMMENTS; Start 05/09/17 at 08:00 Famotidine (Pepcid) 20 mg BID PO Last administered on 05/21/17 21:49; Start at 09:00 Insulin Human Regular (NovoLIN R SUPPLEMENTAL SCALE) 1 ACHS SLIDING SCALE SQ Last administered on 05/21/17 17:00; Start 05/09/17 at 12:00 Vancomycin HCl 1500 mg/Sodium Chloride 515 ml @ 257.5 mls/ hr Q24H IV Last administered on 05/11/17 18:01; Start 05/09/17 at 15:00; Stop 05/11/17 at 19:01 ; Status DC Miscellaneous Information SPECIFIC LAB TO BE ... ONCE ONCE .XX ; Start 05/11 at 14:45; Stop 05/11/17 at 14:46; Status DC Gadodiamide (Omniscan Pf Inj) 14 ml STK-MED ONCE IV PUSH Last administered on 16:02; Start 05/09/17 at 16:02; Stop 05/09/17 at 16:03; Status DC Bacitracin (Bacitracin Oint Packet) 0.9 gm DAILY TOPICAL Last administered on 08:22; Start 05/10/17 at 09:00; Stop 05/13/17 at 08:43; Status DC Bacitracin (Baciguent Oint) 1 applic DAILY TOPICAL Last administered on 09:21; Start 05/11/17 at 09:00 Vancomycin HCl 1100 mg/Sodium Chloride 261 ml @ 250 mls/hr Q12H IV Last administered on 05/12/17 09:05; Start 05/12/17 at 10:00; Stop 05/12/17 at 10:21 ; Status DC Miscellaneous Information SPECIFIC LAB TO BE DRAWN:VANCO TROUGH DATE TO BE .Richard ONCE ONCE .XX ; Start 05/12/17 at 21:45; Stop 05/12/17 at 21:45; Status DC Cefazolin Sodium/ Dextrose 50 ml @ 100 mls/hr Q8H IV Last administered on 05/22 02:08; Start 05/12/17 at 11:00; Stop 06/23/17 at 10:59 Insulin Human Regular (NovoLIN R INJ) 10 units ONCE ONCE IV PUSH Last administered on 05/14/17 04:39; Start 05/14/17 at 04:30; Stop 05/14/17 at 04:31 ; Status DC Piperacillin Sod/ Tazobactam Sod 50 ml @ 100 mls/hr Q6H IV Last administered on 05/21/17 15:56; Start 05/15/17 at 17:00; Stop 05/21/17 at 18:05; Status DC Dextrose (D50w (Syr) Inj) 50 ml STK-MED ONCE .ROUTE Last administered on 16:36; Start 05/15/17 at 16:34; Stop 05/15/17 at 16:35; Status DC Lidocaine HCl (Xylocaine 2% Inj) 50 ml STK-MED ONCE .ROUTE Last administered on 05/15/17 19:57; Start 05/15/17 at 17:14; Stop 05/15/17 at 17:15; Status DC Bupivacaine HCl (Marcaine Pf 0.25% Inj) 30 ml STK-MED ONCE .ROUTE Last administered on 05/15/17 19:57; Start 05/15/17 at 17:17; Stop 05/15/17 at 17:18 ; Status DC Neomycin/Polymyxin (Neosporin G.u. Irr) 2 ml ONCE ONCE IRRIGATION Last administered on 05/15/17 20:01; Start 05/15/17 at 20:01; Stop 05/15/17 at 20:03 ; Status DC Acetaminophen 100 ml @ As Directed STK-MED ONCE IV ; Start 05/15/17 at 20:06; Stop 05/15/17 at 20:07; Status DC Miscellaneous Information ALL NURSING DEPARTME... UNSCH PRN .XX SEE LABEL COMMENTS; Start 05/15/17 at 20:31; Stop 05/16/17 at 20:30; Status DC Acetaminophen/ Hydrocodone Bitart ([place] 10-325 Mg) 1 tab Q4H PRN PO Pain>5 Last administered on 05/22/17 06:06; Start 05/16/17 at 10:15 Morphine Sulfate (Morphine Inj) 2 mg Q6H PRN IV PUSH BREAKTHROUGH PAIN Last administered on 05/21/17 15:55; Start 05/16/17 at 10:15 Diphenhydramine HCl (Benadryl Inj) 50 mg STK-MED ONCE .ROUTE Last administered on 05/16/17 17:04; Start 05/16/17 at 17:01; Stop 05/16/17 at 17:02; Status DC Miscellaneous Information ALL NURSING DEPARTME... UNSCH PRN .XX SEE LABEL COMMENTS; Start 05/17/17 at 08:53; Stop 05/18/17 at 08:52; Status DC A/P Assessment and Plan A/P Septicemia with MSSA Right diabetic foot infection/cellulitis Zosyn was discontinued- Continue Ancef Appreciate input from ID Repeat culture NTD Right foot abscess with ulcer stage III with cellulitis Appreciate input from podiatry - s/p wound VAC placement Status post Right foot I and D 05/15/17 and 05/17/17 . Right metatarsal foot biopsy ; negative for osteomyelitis. Continue Ancef for four [id number]. podiatry f/u appreciated; cleared for discharge with outpatient f/u. continue pain control. Hyperosmolar nonketotic state in patient with type 2 diabetes-resolved Currently on Levemir 10 units twice a day and insulin sliding scale A1c 15.5, patient will need outpatient follow-up with endocrinology lung nodule- f/u as outpatient with CT chest- this was d/w the patient. DVT prophylaxis with subq Heparin Discharge Planning when ok with ID . Francie Chaves MD May 22, 2017 07:47
[2017-05-22] MEDS: BACITRACIN TOP OINT 15 GM TUBE TOPICAL SCH (07:50)
[2017-05-22] MEDS: FAMOTIDINE 20 MG TAB PO SCH ×2 (07:56→22:09)
[2017-05-22] MEDS: HEPARIN SODIUM - SQ 10,000 UNITS/ML VIAL SQ SCH ×2 (07:56→22:09)
[2017-05-22] MEDS: INSULIN NovoLIN REGULAR SUPPLEMENTAL SCALE SQ SCH ×4 (08:00→22:50)
[2017-05-22] MEDS: INSULIN DETEMIR 100 UNITS/ML VIAL SQ SCH ×2 (08:02→22:30)
[2017-05-22] MEDS: SODIUM CHLORIDE 0.9% FLUSH 10 ML FLUSH IV FLUSH SCH ×2 (08:06→22:08)
[2017-05-22 11:30] VITALS: BP 119/72; PULSE 83; RESP 20; TEMP 97.8; O2SAT 98
[2017-05-22 15:30] VITALS: BP 123/73; PULSE 91; RESP 20; TEMP 98.1; O2SAT 96
[2017-05-22 20:00] VITALS: BP 117/62; PULSE 103; RESP 17; TEMP 98.9; O2SAT 96
[2017-05-23] VITALS: BP 140/64; PULSE 91; RESP 17; TEMP 99.2; O2SAT 96
[2017-05-23] MEDS: ceFAZolin 2 GM PREMIX 50 ML IV SCH ×3 (03:35→17:11)
[2017-05-23] MEDS: ACETAMINOPHEN/HYDROcodone 325 MG/10 MG TAB PO PRN ×5 (03:41→20:59)
[2017-05-23 04:00] VITALS: BP 127/74; PULSE 85; RESP 17; TEMP 97.9; O2SAT 97
[2017-05-23] MEDS: CHLORHEXIDINE GLUCONATE 2 % 1 PACK (2 CLOTHS) TOP SCH (04:00)
--- NOTE | 2017-05-23 07:38 | HHI.PR ---
Subjective Remarks in no distress. no fever. pain is controlled. no new complaints. Objective Vitals Vital Signs Date Time Temp Pulse Resp B/P (MAP) Pulse Ox O2 Delivery O2 Flow Rate FiO2 05/23/17 04:56 20 05/23/17 04:00 97.9 85 17 127/74 (91) 97 05/23/17 00:00 99.2 91 17 140/64 (89) 96 05/22/17 20:00 98.9 103 17 117/62 (80) 96 05/22/17 15:30 98.1 91 20 123/73 (90) 96 05/22/17 11:30 97.8 83 20 119/72 (88) 98 I/O 05/22/17 05/22/17 05/22/17 05/23/17 05/23/17 05/23/17 07:00 15:00 23:00 07:00 15:00 23:00 Intake Total 530 ml 50 ml 751 ml 480 ml Output Total 1650 ml 1000 ml 1130 ml Balance -1120 ml 50 ml -249 ml -650 ml Intake Oral 480 ml 701 ml 480 ml IV Total 50 ml 50 ml 50 ml Output Urine Total 1650 ml 1000 ml 1130 ml # Bowel Movements 2 Result Diagram: 05/21/17 0713 Imaging Last Impressions Chest X-Ray 05/15/17 0000 Signed Impressions: Service Date/Time: April 08:47 - CONCLUSION: 1.2 cm nodular density in lateral left midlung zone. Recommend chest CT without contrast to evaluate for pulmonary nodule. No other acute cardiopulmonary disease identified. Cyrus Sears MD Foot MRI 05/09/17 0000 Signed Impressions: Service Date/Time: Tuesday, May 09, 2017 15:29 - CONCLUSION: Abnormal head of the fifth metatarsal suggestive of edema and cortical enhancement associated with soft tissue swelling. Early osteomyelitis suspect. Jordan Tovar MD Head CT 05/08/17 0000 Signed Impressions: Service Date/Time: April 14:16 - CONCLUSION: 1. No acute intracranial abnormality is identified. Raghavendra Lim MD Foot X-Ray 05/08/17 0000 Signed Impressions: Service Date/Time: April 11:18 - CONCLUSION: 1. Soft tissue swelling lateral foot near the fifth MTP. No acute bony abnormality. No radiopaque foreign body. Francisco Grider MD Objective Remarks GENERAL: This is a well-nourished, well-developed patient, in no apparent distress. CARDIOVASCULAR: Regular rate and regular rhythm without murmurs, gallops, or rubs. RESPIRATORY: Clear to auscultation. Breath sounds equal bilaterally. No wheezes , rales, or rhonchi. GASTROINTESTINAL: Abdomen soft, non-tender, nondistended. Normal, active bowel sounds MUSCULOSKELETAL: right foot covered with clean dressing with wound vac in place NEURO: Alert & Oriented x4 to person, place, time, situation. Moves all ext x4 Procedures PROCEDURE 1. Right foot I&D procedure 2. Right fifth metatarsal bone biopsy. Medications and IVs Current Medications Sodium Chloride 1,000 ml @ 2,000 mls/hr Q30M ONCE IV Last administered on 05/08 10:54; Start 05/08/17 at 10:43; Stop 05/08/17 at 11:12; Status DC Sodium Chloride (NS Flush) 2 ml UNSCH PRN IVF FLUSH AFTER USING IV ACCESS; Start 05/08/17 at 10:45; Stop 05/09/17 at 11:57; Status DC Insulin Human Regular (NovoLIN R INJ) 10 units ONCE ONCE SQ Last administered on 05/08/17 11:39; Start 05/08/17 at 11:15; Stop 05/08/17 at 11:18; Status DC Piperacillin Sod/ Tazobactam Sod 100 ml @ 200 mls/hr ONCE ONCE IV Last administered on 05/08/17 11:40; Start 05/08/17 at 11:15; Stop 05/08/17 at 11:44 ; Status DC Vancomycin HCl 1000 mg/Sodium Chloride 250 ml @ 250 mls/hr ONCE ONCE IV Last administered on 05/08/17 12:48; Start 05/08/17 at 11:15; Stop 05/08/17 at 12:14 ; Status DC Sodium Chloride 1,000 ml @ 999 mls/hr BOLUS ONCE IV Last administered on 05/08 13:01; Start 05/08/17 at 12:00; Stop 05/08/17 at 13:00; Status DC Insulin Human Regular (NovoLIN R INJ) 10 units ONCE ONCE IV PUSH Last administered on 05/08/17 12:47; Start 05/08/17 at 12:30; Stop 05/08/17 at 12:31 ; Status DC Piperacillin Sod/ Tazobactam Sod 50 ml @ 100 mls/hr Q6H IV ; Start 05/08/17 at 13:00; Stop 05/08/17 at 13:15; Status DC Pharmacy Profile Note 0 ml @ 0 mls/hr UNSCH OTHER ; Start 05/08/17 at 12:45; Stop 05/12/17 at 10:21; Status DC Sodium Chloride (NS Flush) 2 ml UNSCH PRN IV FLUSH FLUSH AFTER USING IV ACCESS ; Start 05/08/17 at 12:45 Sodium Chloride (NS Flush) 2 ml BID IV FLUSH Last administered on 05/22/17 22: 08; Start 05/08/17 at 21:00 Acetaminophen (Tylenol) 650 mg Q6H PRN PO PAIN 1 TO 2 AND/OR FEVER >101F Last administered on 05/16/17 12:49; Start 05/08/17 at 13:00 Acetaminophen/ Hydrocodone Bitart (Centre 5-325 Mg) 1 tab Q4H PRN PO PAIN SCALE 3 TO 5 Last administered on 05/14/17 19:28; Start 05/08/17 at 14:00 Morphine Sulfate (Morphine Inj) 2 mg Q2H PRN IV PUSH PAIN SCALE 6 TO 10 Last administered on 05/16/17 10:02; Start 05/08/17 at 12:45; Stop 05/16/17 at 10:05 ; Status DC Famotidine (Pepcid Inj) 10 mg Q12HR IV PUSH Last administered on 05/08/17 21: 39; Start 05/08/17 at 21:00; Stop 05/09/17 at 08:40; Status DC Ondansetron HCl (Zofran Inj) 4 mg Q6H PRN IV PUSH NAUSEA OR VOMITING Last administered on 05/22/17 06:07; Start 05/08/17 at 14:00 Albuterol Sulfate (Albuterol Neb) 2.5 mg Q2HR NEB PRN INH SOB/WHEEZING; Start 05/08/17 at 14:00 Heparin Sodium (Porcine) (Heparin Inj) 5,000 units Q12HR SQ Last administered on 05/22/17 22:09; Start 05/08/17 at 21:00; Status Future hold Miscellaneous Information 1 Q361D XX ; Start 05/08/17 at 12:45 Chlorhexidine Gluconate (Chlorhexidine 2% Cloth) Taper DAILY@04 TOP Last administered on 05/17/17 03:12; Start 05/09/17 at 04:00; Stop 05/05/18 at 03:59 Chlorhexidine Gluconate (Chlorhexidine 2% Cloth) 3 pack UNSCH PRN TOP HYGIENIC CARE; Start 05/08/17 at 12:45 Senna/Docusate Sodium ([place]-Colace) 1 tab BID PO Last administered on 08:58; Start 05/08/17 at 21:00; Stop 05/12/17 at 10:42; Status DC Magnesium Hydroxide (Milk Of Magnesia Liq) 30 ml Q12H PRN PO MILD - MODERATE CONSTIPATION Last administered on 05/18/17 18:55; Start 05/08/17 at 14:00 Sennosides (Senokot) 17.2 mg Q12HR PRN PO MODERATE - SEVERE CONSTIPATION; Start 05/08/17 at 21:00; Stop 05/12/17 at 10:42; Status DC Bisacodyl (Dulcolax Supp) 10 mg DAILY PRN RECTAL SEVERE CONSITIPATION; Start at 14:00; Stop 05/12/17 at 10:42; Status DC Lactulose (Lactulose Liq) 30 ml DAILY PRN PO SEVERE CONSITIPATION; Start at 14:00; Stop 05/12/17 at 10:42; Status DC Sodium Chloride 1,000 ml @ 1,000 mls/hr Q1H IV ; Start 05/08/17 at 12:48; Stop 05/08/17 at 14:47; Status DC Dextrose/Sodium Chloride 1,000 ml @ 200 mls/hr Q5H IV Last administered on 08:19; Start 05/08/17 at 12:48; Stop 05/09/17 at 11:56; Status DC Insulin Human Regular 100 units/ Sodium Chloride 100 ml @ 1.38 mls/hr TITRATE IV Last administered on 05/08/17 13:57; Start 05/08/17 at 14:00; Stop at 08:00; Status DC Potassium Chloride 100 ml @ 50 mls/hr Q2H PRN IV SEE LABEL COMMENTS; Start at 13:00; Stop 05/12/17 at 13:56; Status DC Potassium Chloride 100 ml @ 50 mls/hr Q2H PRN IV SEE LABEL COMMENTS Last administered on 05/09/17t 01:01; Start 05/08/17 at 13:00; Stop 05/12/17 at 13:56 ; Status DC Potassium Chloride 100 ml @ 50 mls/hr Q2H PRN IV SEE LABEL COMMENTS; Start at 13:00; Stop 05/12/17 at 13:56; Status DC Potassium Chloride 100 ml @ 50 mls/hr Q2H PRN IV SEE LABEL COMMENTS; Start at 13:00; Stop 05/12/17 at 13:56; Status DC Sodium Bicarbonate (Sodium Bicarbonate 8.4% Inj) 100 meq UNSCH PRN IV SEE LABEL COMMENTS; Start 05/08/17 at 13:00; Stop 05/12/17 at 13:56; Status DC Sodium Bicarbonate (Sodium Bicarbonate 8.4% Inj) 50 meq UNSCH PRN IV SEE LABEL COMMENTS; Start 05/08/17 at 13:00; Stop 05/12/17 at 13:56; Status DC Sodium Phosphate 15 mmol/Sodium Chloride 105 ml @ 25 mls/hr UNSCH PRN IV SEE LABEL COMMENTS; Start 05/08/17 at 13:00; Stop 05/12/17 at 13:56; Status DC Miscellaneous Information 1 Q361D XX ; Start 05/08/17 at 13:00; Stop 05/08/17 at 13:09; Status DC Chlorhexidine Gluconate (Chlorhexidine 2% Cloth) 3 pack Taper DAILY@04 TOP ; Start 05/09/17 at 04:00; Stop 05/09/17 at 04:00; Status DC Chlorhexidine Gluconate (Chlorhexidine 2% Cloth) 3 pack UNSCH PRN TOP HYGIENIC CARE; Start 05/08/17 at 13:00; Stop 05/08/17 at 13:09; Status DC Sodium Chloride 1,000 ml @ 999 mls/hr BOLUS ONCE IV Last administered on 05/08t 13:23; Start 05/08/17 at 13:00; Stop 05/08/17 at 14:00; Status DC Hydralazine HCl (Apresoline Inj) 10 mg Q1HR PRN IV PUSH SBP>170, DBP>90; Start 05/08/17 at 13:15 Nitroglycerin (Nitroglycerin 2% Oint) 2 inch Q6HR PRN TOPICAL SBP>170, DBP>90; Start 05/08/17 at 14:00 Vancomycin HCl 500 mg/Sodium Chloride 100 ml @ 200 mls/hr ONCE ONCE IV ; Start 05/08/17 at 15:00; Stop 05/08/17 at 15:29; Status DC Piperacillin Sod/ Tazobactam Sod 50 ml @ 100 mls/hr Q6H IV Last administered on 05/12/17t 10:12; Start 05/08/17 at 17:00; Stop 05/12/17 at 10:21; Status DC Magnesium Oxide (Mag-Ox) 800 mg UNSCH PRN PO For Magnesium 1.2 - 1.6 mg/dL; Start 05/08/17 at 21:45; Stop 05/12/17 at 13:58; Status DC Magnesium Sulfate 4 gm/Sodium Chloride 100 ml @ 50 mls/hr UNSCH PRN IV For Magnesium 0.9 - 1.1 mg/dL; Start 05/08/17 at 21:45; Stop 05/12/17 at 13:58; Status DC Magnesium Sulfate 2 gm/Sodium Chloride 100 ml @ 50 mls/hr UNSCH PRN IV For Magnesium 1.2 - 1.6 mg/dL; Start 05/08/17 at 21:45; Stop 05/12/17 at 13:58; Status DC Potassium Chloride 100 ml @ 50 mls/hr Q2H PRN IV For Potassium 2.8 - 3.2 mEq/L ; Start 05/08/17 at 21:45; Stop 05/12/17 at 13:58; Status DC Potassium Chloride 100 ml @ 50 mls/hr Q2H PRN IV For Potassium 3.3 - 3.5 mEq/L ; Start 05/08/17 at 21:45; Stop 05/12/17 at 13:58; Status DC Potassium Chloride 100 ml @ 50 mls/hr Q2H PRN IV For Potassium 2.8 - 3.2 mEq/L ; Start 05/08/17 at 21:45; Stop 05/12/17 at 13:58; Status DC Potassium Chloride 100 ml @ 25 mls/hr UNSCH PRN IV For Potassium 3.3 - 3.5 mEq /L; Start 05/08/17 at 21:45; Stop 05/12/17 at 13:58; Status DC Potassium Phosphate (K-Phos) 2,000 mg Q4H PRN PO For Phosphorus < 2.5 mg/dL; Start 05/08/17 at 21:45; Stop 05/12/17 at 13:58; Status DC Potassium Phosphate (K-Phos) 2,000 mg UNSCH PRN PO/TUBE SEE LABEL COMMENTS; Start 05/08/17 at 21:45; Stop 05/12/17 at 13:58; Status DC Potassium Phosphate 30 mmol/ Sodium Chloride 260 ml @ 42 mls/hr UNSCH PRN IV SEE LABEL COMMENTS Last administered on 05/08/17 22:25; Start 05/08/17 at 21:45 ; Stop 05/12/17 at 13:58; Status DC Sodium Phosphate 30 mmol/Sodium Chloride 250 ml @ 42 mls/hr UNSCH PRN IV For Phosphorus < 2.5 mg/dL; Start 05/08/17 at 21:45; Stop 05/12/17 at 13:58; Status DC Miscellaneous Information 1 ONCE ONCE .XX Last administered on 05/09/17 08:00 ; Start 05/09/17 at 08:00; Stop 05/09/17 at 08:01; Status DC Miscellaneous Information 1 ONCE ONCE .XX Last administered on 05/09/17 08:00 ; Start 05/09/17 at 08:00; Stop 05/09/17 at 08:01; Status DC Insulin Detemir (Levemir Inj) 10 units BID SQ Last administered on 05/22/17 22 :30; Start 05/09/17 at 09:00 Insulin Human Regular (NovoLIN R SUPPLEMENTAL SCALE) 1 ACHS SLIDING SCALE SQ Last administered on 05/09/17 08:00; Start 05/09/17 at 08:00; Stop 05/09/17 at 11:00; Status DC Dextrose (D50w (Vial) Inj) 50 ml UNSCH PRN IV PUSH HYPOGLYCEMIA-SEE COMMENTS; Start 05/09/17 at 08:00 Glucagon (Glucagon Inj) 1 mg UNSCH PRN OTHER HYPOGLYCEMIA-SEE COMMENTS; Start 05/09/17 at 08:00 Famotidine (Pepcid) 20 mg BID PO Last administered on 05/22/17 22:09; Start at 09:00 Insulin Human Regular (NovoLIN R SUPPLEMENTAL SCALE) 1 ACHS SLIDING SCALE SQ Last administered on 05/22/17 22:50; Start 05/09/17 at 12:00 Vancomycin HCl 1500 mg/Sodium Chloride 515 ml @ 257.5 mls/ hr Q24H IV Last administered on 05/11/17 18:01; Start 05/09/17 at 15:00; Stop 05/11/17 at 19:01 ; Status DC Miscellaneous Information SPECIFIC LAB TO BE . ONCE ONCE .XX ; Start 05/11 at 14:45; Stop 05/11/17 at 14:46; Status DC Gadodiamide (Omniscan Pf Inj) 14 ml STK-MED ONCE IV PUSH Last administered on 16:02; Start 05/09/17 at 16:02; Stop 05/09/17 at 16:03; Status DC Bacitracin (Bacitracin Oint Packet) 0.9 gm DAILY TOPICAL Last administered on 08:22; Start 05/10/17 at 09:00; Stop 05/13/17 at 08:43; Status DC Bacitracin (Baciguent Oint) 1 applic DAILY TOPICAL Last administered on 09:21; Start 05/11/17 at 09:00 Vancomycin HCl 1100 mg/Sodium Chloride 261 ml @ 250 mls/hr Q12H IV Last administered on 05/12/17 09:05; Start 05/12/17 at 10:00; Stop 05/12/17 at 10:21 ; Status DC Miscellaneous Information SPECIFIC LAB TO BE DRAWN:VANCO TROUGH DATE TO BE ONCE ONCE .XX ; Start 05/12/17 at 21:45; Stop 05/12/17 at 21:45; Status DC Cefazolin Sodium/ Dextrose 50 ml @ 100 mls/hr Q8H IV Last administered on 05/23 03:35; Start 05/12/17 at 11:00; Stop 06/23/17 at 10:59 Insulin Human Regular (NovoLIN R INJ) 10 units ONCE ONCE IV PUSH Last administered on 05/14/17 04:39; Start 05/14/17 at 04:30; Stop 05/14/17 at 04:31 ; Status DC Piperacillin Sod/ Tazobactam Sod 50 ml @ 100 mls/hr Q6H IV Last administered on 05/21/17 15:56; Start 05/15/17 at 17:00; Stop 05/21/17 at 18:05; Status DC Dextrose (D50w (Syr) Inj) 50 ml STK-MED ONCE .ROUTE Last administered on 16:36; Start 05/15/17 at 16:34; Stop 05/15/17 at 16:35; Status DC Lidocaine HCl (Xylocaine 2% Inj) 50 ml STK-MED ONCE .ROUTE Last administered on 05/15/17 19:57; Start 05/15/17 at 17:14; Stop 05/15/17 at 17:15; Status DC Bupivacaine HCl (Marcaine Pf 0.25% Inj) 30 ml STK-MED ONCE .ROUTE Last administered on 05/15/17 19:57; Start 05/15/17 at 17:17; Stop 05/15/17 at 17:18 ; Status DC Neomycin/Polymyxin (Neosporin G.u. Irr) 2 ml ONCE ONCE IRRIGATION Last administered on 05/15/17 20:01; Start 05/15/17 at 20:01; Stop 05/15/17 at 20:03 ; Status DC Acetaminophen 100 ml @ As Directed STK-MED ONCE IV ; Start 05/15/17 at 20:06; Stop 05/15/17 at 20:07; Status DC Miscellaneous Information ALL NURSING DEPARTME... UNSCH PRN .XX SEE LABEL COMMENTS; Start 05/15/17 at 20:31; Stop 05/16/17 at 20:30; Status DC Acetaminophen/ Hydrocodone Bitart (Centre 10-325 Mg) 1 tab Q4H PRN PO Pain>5 Last administered on 05/23/17 03:41; Start 05/16/17 at 10:15 Morphine Sulfate (Morphine Inj) 2 mg Q6H PRN IV PUSH BREAKTHROUGH PAIN Last administered on 05/21/17 15:55; Start 05/16/17 at 10:15 Diphenhydramine HCl (Benadryl Inj) 50 mg STK-MED ONCE .ROUTE Last administered on 05/16/17t 17:04; Start 05/16/17 at 17:01; Stop 05/16/17 at 17:02; Status DC Miscellaneous Information ALL NURSING DEPARTME... UNSCH PRN .XX SEE LABEL COMMENTS; Start 05/17/17 at 08:53; Stop 05/18/17 at 08:52; Status DC A/P Problem List: (1) Thrombocytosis ICD Code: D47.3 - Essential (hemorrhagic) thrombocythemia (2) Normocytic anemia ICD Code: D64.9 - Anemia, unspecified (3) Leukocytosis ICD Code: D72.829 - Elevated white blood cell count, unspecified (4) Diabetic foot ulcer associated with type 2 diabetes mellitus, with fat layer exposed ICD Code: E11.621 - Type 2 diabetes mellitus with foot ulcer; L97.502 - Non- pressure chronic ulcer of other part of unspecified foot with fat layer exposed (5) Acute kidney injury ICD Code: N17.9 - Acute kidney failure, unspecified (6) Hyperosmolar non-ketotic state in patient with type 2 diabetes mellitus ICD Code: E11.01 - Type 2 diabetes mellitus with hyperosmolarity with coma (7) Dehydration with hyponatremia ICD Code: E87.1 - Hypo-osmolality and hyponatremia (8) Toxic metabolic encephalopathy ICD Code: G92 - Toxic encephalopathy (9) Septic shock ICD Code: A41.9 - Sepsis, unspecified organism; R65.21 - Severe sepsis with septic shock (10) Severe sepsis ICD Code: A41.9 - Sepsis, unspecified organism; R65.20 - Severe sepsis without septic shock Assessment and Plan A/P Septicemia with MSSA Right diabetic foot infection/cellulitis Zosyn was discontinued- Continue Ancef Appreciate input from ID Repeat culture NTD Right foot abscess with ulcer stage III with cellulitis Appreciate input from podiatry - s/p wound VAC placement Status post Right foot I and D 05/15/17 and 05/17/17 . Right metatarsal foot biopsy ; negative for osteomyelitis. Continue Ancef for four [id number]. podiatry f/u appreciated; cleared for discharge with outpatient f/u. continue pain control. Hyperosmolar nonketotic state in patient with type 2 diabetes-resolved but with not-optimally controlled hyperglycemia increase Levemir to 12 units twice a day and continue with insulin sliding scale A1c 15.5, patient will need outpatient follow-up with endocrinology lung nodule- f/u as outpatient with CT chest- this was d/w the patient. DVT prophylaxis with subq Heparin Discharge Planning likely needs to stay in house for IV antibiotic therapy. Problem Qualifiers (1) Leukocytosis: Qualified Codes: D72.829 - Elevated white blood cell count, unspecified (2) Diabetic foot ulcer associated with type 2 diabetes mellitus, with fat layer exposed: Qualified Codes: E11.621 - Type 2 diabetes mellitus with foot ulcer; L97.512 - Non-pressure chronic ulcer of other part of right foot with fat layer exposed Francie Chaves MD May 23, 2017 07:38
[2017-05-23 08:00] VITALS: BP 116/61; PULSE 94; RESP 14; TEMP 96.8; O2SAT 98
[2017-05-23] MEDS: HEPARIN SODIUM - SQ 10,000 UNITS/ML VIAL SQ SCH ×2 (08:15→21:00)
[2017-05-23] MEDS: INSULIN NovoLIN REGULAR SUPPLEMENTAL SCALE SQ SCH ×4 (08:17→21:12)
[2017-05-23] MEDS: INSULIN DETEMIR 100 UNITS/ML VIAL SQ SCH ×2 (08:19→21:12)
[2017-05-23] MEDS: SODIUM CHLORIDE 0.9% FLUSH 10 ML FLUSH IV FLUSH SCH ×2 (08:19→21:00)
[2017-05-23] MEDS: FAMOTIDINE 20 MG TAB PO SCH ×2 (08:19→20:59)
[2017-05-23] MEDS: BACITRACIN TOP OINT 15 GM TUBE TOPICAL SCH (08:19)
[2017-05-23 12:00] VITALS: BP 109/71; PULSE 94; RESP 16; TEMP 96.2; O2SAT 98
[2017-05-23] MEDS: MORPHINE SULFATE 4 MG/ML INJ IV PUSH PRN (13:34)
[2017-05-23] MEDS: ONDANSETRON HCL 4 MG/2 ML VIAL IV PUSH PRN (13:38)
--- NOTE | 2017-05-23 14:33 | PD.WCN.NOT ---
Wound Consult Description: Right plantar/medial foot Communicated with: Patient MESERET Holman Recommendation: Change wound VAC M-W-F to right foot with settings @125mmHg low continuous Place white foam over tendon on plantar surface Bridge wounds to dorsal foot Additional Information: Patient seen on for wound VAC change. Neg Pressure Wound Therapy Wound Location Wound Location: Right plantar/medial foot Wound Description Length: ~7cm Width: ~9cm Depth: 1cm Wound bed appearance: ~80% Tendon ~20% Red non granulating tissue Periwound appearance: Other (macerated) Settings Suction: 125 mmHg, Continuous Intensity: Low Other Information: Bridged, Windowpaned Foam type: Black (3 pieces used in all), White (1 piece used over tendon) Number of pieces: other (4 pieces faom used in all) Additonal Information Wound VAC dressing removed from right foot to reveal a full thickness post surgical wound with no active drainage, no odor, with open wound margins and macerated periwound that was described and measured above. Wound was cleansed with NS and gauze. Periwound of macerated skin was prepped using Cavilon spray and window paned using drape to protect intact skin with small piece of Xeroform used to cover partial thickness skinloss. 1 piece white sterile moist foam was used to protect tendon from black granufoam that was placed in wound bed and secured with drape. Dorsal right lateral foot is noted with a full thickness wound measuring 4.5cm x 1.8cm x 0.6cm of ~60% pink tissue and ~30% red granulating tissue and ~10% tendon that was covered with Xeroform and included in the wound VAC after window paning and bridging to dorsum with trac pad placed over granufoam on wound bed. Wound VAC turned on with settings @ 125mmHg low continuous suction without leaks. Rolled gauze was used to cover VAC drape and protect against tugging on tubing. Franklin Wrap was placed for further protection as patient requests. Patient tolerated wound VAC application well. Next wound VAC change is scheduled for Friday05/26/17. There is a partial thickness skinloss area measuring ~1cm circumferentially on the 5th lateral met head with 100% red non granulating dry tissue that was cleansed with NS and gauze. Wound bed is noted without drainage and a minimally macerated periwound that was covered with sandy. Arely Bennett [facility] May 23, 2017 14:33
[2017-05-23 16:00] VITALS: BP 115/69; PULSE 90; RESP 16; TEMP 98.1; O2SAT 96
[2017-05-23 20:00] VITALS: BP 115/77; PULSE 107; RESP 17; TEMP 96.9; O2SAT 96
[2017-05-24] VITALS: BP 127/81; PULSE 97; RESP 16; TEMP 96.9; O2SAT 98
[2017-05-24] MEDS: ACETAMINOPHEN/HYDROcodone 325 MG/10 MG TAB PO PRN ×6 (01:10→21:24)
[2017-05-24] MEDS: MORPHINE SULFATE 4 MG/ML INJ IV PUSH PRN ×2 (02:00→22:18)
[2017-05-24] MEDS: ceFAZolin 2 GM PREMIX 50 ML IV SCH ×3 (03:23→18:26)
[2017-05-24 04:00] VITALS: BP 135/83; PULSE 94; RESP 17; TEMP 97.2; O2SAT 99
[2017-05-24] MEDS: CHLORHEXIDINE GLUCONATE 2 % 1 PACK (2 CLOTHS) TOP SCH (04:00)
--- NOTE | 2017-05-24 07:01 | HHI.PR ---
Subjective Remarks in no distress. pain is controlled. afebrile. no new complaints. Objective Vitals Vital Signs Date Time Temp Pulse Resp B/P (MAP) Pulse Ox O2 Delivery O2 Flow Rate FiO2 05/24/17 06:15 20 05/24/17 04:00 97.2 94 17 135/83 (100) 99 05/24/17 00:00 96.9 97 16 127/81 (96) 98 05/23/17 20:00 96.9 107 17 115/77 (90) 96 05/23/17 16:00 98.1 90 16 115/69 (84) 96 05/23/17 12:00 96.2 94 16 109/71 (84) 98 05/23/17 08:00 96.8 94 14 116/61 (79) 98 I/O 05/23/17 05/23/17 05/23/17 05/24/17 05/24/17 05/24/17 07:00 15:00 23:00 07:00 15:00 23:00 Intake Total 480 ml 50 ml 1898 ml 960 ml Output Total 1130 ml 1350 ml 1050 ml Balance -650 ml 50 ml 548 ml -90 ml Intake Oral 480 ml 1898 ml 960 ml IV Total 50 ml Output Urine Total 1130 ml 1350 ml 1050 ml # Bowel Movements 2 Result Diagram: 05/21/17 0713 Imaging Last Impressions Chest X-Ray 05/15/17 0000 Signed Impressions: Service Date/Time: April 08:47 - CONCLUSION: 1.2 cm nodular density in lateral left midlung zone. Recommend chest CT without contrast to evaluate for pulmonary nodule. No other acute cardiopulmonary disease identified. Cyrus Sears MD Foot MRI 05/09/17 0000 Signed Impressions: Service Date/Time: Tuesday, May 09, 2017 15:29 - CONCLUSION: Abnormal head of the fifth metatarsal suggestive of edema and cortical enhancement associated with soft tissue swelling. Early osteomyelitis suspect. Jordan Tovar MD Head CT 05/08/17 0000 Signed Impressions: Service Date/Time: April 14:16 - CONCLUSION: 1. No acute intracranial abnormality is identified. Raghavendra Lim MD Foot X-Ray 05/08/17 0000 Signed Impressions: Service Date/Time: April 11:18 - CONCLUSION: 1. Soft tissue swelling lateral foot near the fifth MTP. No acute bony abnormality. No radiopaque foreign body. Francisco Grider MD Objective Remarks GENERAL: This is a well-nourished, well-developed patient, in no apparent distress. CARDIOVASCULAR: Regular rate and regular rhythm without murmurs, gallops, or rubs. RESPIRATORY: Clear to auscultation. Breath sounds equal bilaterally. No wheezes , rales, or rhonchi. GASTROINTESTINAL: Abdomen soft, non-tender, nondistended. Normal, active bowel sounds MUSCULOSKELETAL: right foot covered with clean dressing with wound vac in place NEURO: Alert & Oriented x4 to person, place, time, situation. Moves all ext x4 Procedures PROCEDURE 1. Right foot I&D procedure 2. Right fifth metatarsal bone biopsy. Medications and IVs Current Medications Sodium Chloride 1,000 ml @ 2,000 mls/hr Q30M ONCE IV Last administered on 05/08 10:54; Start 05/08/17 at 10:43; Stop 05/08/17 at 11:12; Status DC Sodium Chloride (NS Flush) 2 ml UNSCH PRN IVF FLUSH AFTER USING IV ACCESS; Start 05/08/17 at 10:45; Stop 05/09/17 at 11:57; Status DC Insulin Human Regular (NovoLIN R INJ) 10 units ONCE ONCE SQ Last administered on 05/08/17 11:39; Start 05/08/17 at 11:15; Stop 05/08/17 at 11:18; Status DC Piperacillin Sod/ Tazobactam Sod 100 ml @ 200 mls/hr ONCE ONCE IV Last administered on 05/08/17 11:40; Start 05/08/17 at 11:15; Stop 05/08/17 at 11:44 ; Status DC Vancomycin HCl 1000 mg/Sodium Chloride 250 ml @ 250 mls/hr ONCE ONCE IV Last administered on 05/08/17 12:48; Start 05/08/17 at 11:15; Stop 05/08/17 at 12:14 ; Status DC Sodium Chloride 1,000 ml @ 999 mls/hr BOLUS ONCE IV Last administered on 05/08 13:01; Start 05/08/17 at 12:00; Stop 05/08/17 at 13:00; Status DC Insulin Human Regular (NovoLIN R INJ) 10 units ONCE ONCE IV PUSH Last administered on 05/08/17 12:47; Start 05/08/17 at 12:30; Stop 05/08/17 at 12:31 ; Status DC Piperacillin Sod/ Tazobactam Sod 50 ml @ 100 mls/hr Q6H IV ; Start 05/08/17 at 13:00; Stop 05/08/17 at 13:15; Status DC Pharmacy Profile Note 0 ml @ 0 mls/hr UNSCH OTHER ; Start 05/08/17 at 12:45; Stop 05/12/17 at 10:21; Status DC Sodium Chloride (NS Flush) 2 ml UNSCH PRN IV FLUSH FLUSH AFTER USING IV ACCESS ; Start 05/08/17 at 12:45 Sodium Chloride (NS Flush) 2 ml BID IV FLUSH Last administered on 05/23/17 21: 00; Start 05/08/17 at 21:00 Acetaminophen (Tylenol) 650 mg Q6H PRN PO PAIN 1 TO 2 AND/OR FEVER >101F Last administered on 05/16/17 12:49; Start 05/08/17 at 13:00 Acetaminophen/ Hydrocodone Bitart ([place] 5-325 Mg) 1 tab Q4H PRN PO PAIN SCALE 3 TO 5 Last administered on 05/14/17 19:28; Start 05/08/17 at 14:00 Morphine Sulfate (Morphine Inj) 2 mg Q2H PRN IV PUSH PAIN SCALE 6 TO 10 Last administered on 05/16/17 10:02; Start 05/08/17 at 12:45; Stop 05/16/17 at 10:05 ; Status DC Famotidine (Pepcid Inj) 10 mg Q12HR IV PUSH Last administered on 05/08/17 21: 39; Start 05/08/17 at 21:00; Stop 05/09/17 at 08:40; Status DC Ondansetron HCl (Zofran Inj) 4 mg Q6H PRN IV PUSH NAUSEA OR VOMITING Last administered on 05/23/17 13:38; Start 05/08/17 at 14:00 Albuterol Sulfate (Albuterol Neb) 2.5 mg Q2HR NEB PRN INH SOB/WHEEZING; Start 05/08/17 at 14:00 Heparin Sodium (Porcine) (Heparin Inj) 5,000 units Q12HR SQ Last administered on 05/23/17 21:00; Start 05/08/17 at 21:00; Status Future hold Miscellaneous Information 1 Q361D XX ; Start 05/08/17 at 12:45 Chlorhexidine Gluconate (Chlorhexidine 2% Cloth) Taper DAILY@04 TOP Last administered on 05/17/17 03:12; Start 05/09/17 at 04:00; Stop 05/05/18 at 03:59 Chlorhexidine Gluconate (Chlorhexidine 2% Cloth) 3 pack UNSCH PRN TOP HYGIENIC CARE; Start 05/08/17 at 12:45 Senna/Docusate Sodium ([place]-Colace) 1 tab BID PO Last administered on 08:58; Start 05/08/17 at 21:00; Stop 05/12/17 at 10:42; Status DC Magnesium Hydroxide (Milk Of Magnesia Liq) 30 ml Q12H PRN PO MILD - MODERATE CONSTIPATION Last administered on 05/18/17 18:55; Start 05/08/17 at 14:00 Sennosides (Senokot) 17.2 mg Q12HR PRN PO MODERATE - SEVERE CONSTIPATION; Start 05/08/17 at 21:00; Stop 05/12/17 at 10:42; Status DC Bisacodyl (Dulcolax Supp) 10 mg DAILY PRN RECTAL SEVERE CONSITIPATION; Start at 14:00; Stop 05/12/17 at 10:42; Status DC Lactulose (Lactulose Liq) 30 ml DAILY PRN PO SEVERE CONSITIPATION; Start at 14:00; Stop 05/12/17 at 10:42; Status DC Sodium Chloride 1,000 ml @ 1,000 mls/hr Q1H IV ; Start 05/08/17 at 12:48; Stop 05/08/17 at 14:47; Status DC Dextrose/Sodium Chloride 1,000 ml @ 200 mls/hr Q5H IV Last administered on 08:19; Start 05/08/17 at 12:48; Stop 05/09/17 at 11:56; Status DC Insulin Human Regular 100 units/ Sodium Chloride 100 ml @ 1.38 mls/hr TITRATE IV Last administered on 05/08/17t 13:57; Start 05/08/17 at 14:00; Stop at 08:00; Status DC Potassium Chloride 100 ml @ 50 mls/hr Q2H PRN IV SEE LABEL COMMENTS; Start at 13:00; Stop 05/12/17 at 13:56; Status DC Potassium Chloride 100 ml @ 50 mls/hr Q2H PRN IV SEE LABEL COMMENTS Last administered on 05/09/17t 01:01; Start 05/08/17 at 13:00; Stop 05/12/17 at 13:56 ; Status DC Potassium Chloride 100 ml @ 50 mls/hr Q2H PRN IV SEE LABEL COMMENTS; Start at 13:00; Stop 05/12/17 at 13:56; Status DC Potassium Chloride 100 ml @ 50 mls/hr Q2H PRN IV SEE LABEL COMMENTS; Start at 13:00; Stop 05/12/17 at 13:56; Status DC Sodium Bicarbonate (Sodium Bicarbonate 8.4% Inj) 100 meq UNSCH PRN IV SEE LABEL COMMENTS; Start 05/08/17 at 13:00; Stop 05/12/17 at 13:56; Status DC Sodium Bicarbonate (Sodium Bicarbonate 8.4% Inj) 50 meq UNSCH PRN IV SEE LABEL COMMENTS; Start 05/08/17 at 13:00; Stop 05/12/17 at 13:56; Status DC Sodium Phosphate 15 mmol/Sodium Chloride 105 ml @ 25 mls/hr UNSCH PRN IV SEE LABEL COMMENTS; Start 05/08/17 at 13:00; Stop 05/12/17 at 13:56; Status DC Miscellaneous Information 1 Q361D XX ; Start 05/08/17 at 13:00; Stop 05/08/17 at 13:09; Status DC Chlorhexidine Gluconate (Chlorhexidine 2% Cloth) 3 pack Taper DAILY@04 TOP ; Start 05/09/17 at 04:00; Stop 05/09/17 at 04:00; Status DC Chlorhexidine Gluconate (Chlorhexidine 2% Cloth) 3 pack UNSCH PRN TOP HYGIENIC CARE; Start 05/08/17 at 13:00; Stop 05/08/17 at 13:09; Status DC Sodium Chloride 1,000 ml @ 999 mls/hr BOLUS ONCE IV Last administered on 05/08t 13:23; Start 05/08/17 at 13:00; Stop 05/08/17 at 14:00; Status DC Hydralazine HCl (Apresoline Inj) 10 mg Q1HR PRN IV PUSH SBP>170, DBP>90; Start 05/08/17 at 13:15 Nitroglycerin (Nitroglycerin 2% Oint) 2 inch Q6HR PRN TOPICAL SBP>170, DBP>90; Start 05/08/17 at 14:00 Vancomycin HCl 500 mg/Sodium Chloride 100 ml @ 200 mls/hr ONCE ONCE IV ; Start 05/08/17 at 15:00; Stop 05/08/17 at 15:29; Status DC Piperacillin Sod/ Tazobactam Sod 50 ml @ 100 mls/hr Q6H IV Last administered on 05/12/17t 10:12; Start 05/08/17 at 17:00; Stop 05/12/17 at 10:21; Status DC Magnesium Oxide (Mag-Ox) 800 mg UNSCH PRN PO For Magnesium 1.2 - 1.6 mg/dL; Start 05/08/17 at 21:45; Stop 05/12/17 at 13:58; Status DC Magnesium Sulfate 4 gm/Sodium Chloride 100 ml @ 50 mls/hr UNSCH PRN IV For Magnesium 0.9 - 1.1 mg/dL; Start 05/08/17 at 21:45; Stop 05/12/17 at 13:58; Status DC Magnesium Sulfate 2 gm/Sodium Chloride 100 ml @ 50 mls/hr UNSCH PRN IV For Magnesium 1.2 - 1.6 mg/dL; Start 05/08/17 at 21:45; Stop 05/12/17 at 13:58; Status DC Potassium Chloride 100 ml @ 50 mls/hr Q2H PRN IV For Potassium 2.8 - 3.2 mEq/L ; Start 05/08/17 at 21:45; Stop 05/12/17 at 13:58; Status DC Potassium Chloride 100 ml @ 50 mls/hr Q2H PRN IV For Potassium 3.3 - 3.5 mEq/L ; Start 05/08/17 at 21:45; Stop 05/12/17 at 13:58; Status DC Potassium Chloride 100 ml @ 50 mls/hr Q2H PRN IV For Potassium 2.8 - 3.2 mEq/L ; Start 05/08/17 at 21:45; Stop 05/12/17 at 13:58; Status DC Potassium Chloride 100 ml @ 25 mls/hr UNSCH PRN IV For Potassium 3.3 - 3.5 mEq /L; Start 05/08/17 at 21:45; Stop 05/12/17 at 13:58; Status DC Potassium Phosphate (K-Phos) 2,000 mg Q4H PRN PO For Phosphorus < 2.5 mg/dL; Start 05/08/17 at 21:45; Stop 05/12/17 at 13:58; Status DC Potassium Phosphate (K-Phos) 2,000 mg UNSCH PRN PO/TUBE SEE LABEL COMMENTS; Start 05/08/17 at 21:45; Stop 05/12/17 at 13:58; Status DC Potassium Phosphate 30 mmol/ Sodium Chloride 260 ml @ 42 mls/hr UNSCH PRN IV SEE LABEL COMMENTS Last administered on 05/08/17 22:25; Start 05/08/17 at 21:45 ; Stop 05/12/17 at 13:58; Status DC Sodium Phosphate 30 mmol/Sodium Chloride 250 ml @ 42 mls/hr UNSCH PRN IV For Phosphorus < 2.5 mg/dL; Start 05/08/17 at 21:45; Stop 05/12/17 at 13:58; Status DC Miscellaneous Information 1 ONCE ONCE .XX Last administered on 05/09/17 08:00 ; Start 05/09/17 at 08:00; Stop 05/09/17 at 08:01; Status DC Miscellaneous Information 1 ONCE ONCE .XX Last administered on 05/09/17 08:00 ; Start 05/09/17 at 08:00; Stop 05/09/17 at 08:01; Status DC Insulin Detemir (Levemir Inj) 10 units BID SQ Last administered on 05/22/17 22 :30; Start 05/09/17 at 09:00; Stop 05/23/17 at 07:39; Status DC Insulin Human Regular (NovoLIN R SUPPLEMENTAL SCALE) 1 ACHS SLIDING SCALE SQ Last administered on 05/09/17 08:00; Start 05/09/17 at 08:00; Stop 05/09/17 at 11:00; Status DC Dextrose (D50w (Vial) Inj) 50 ml UNSCH PRN IV PUSH HYPOGLYCEMIA-SEE COMMENTS; Start 05/09/17 at 08:00 Glucagon (Glucagon Inj) 1 mg UNSCH PRN OTHER HYPOGLYCEMIA-SEE COMMENTS; Start 05/09/17 at 08:00 Famotidine (Pepcid) 20 mg BID PO Last administered on 05/23/17 20:59; Start at 09:00 Insulin Human Regular (NovoLIN R SUPPLEMENTAL SCALE) 1 ACHS SLIDING SCALE SQ Last administered on 05/23/17 21:12; Start 05/09/17 at 12:00 Vancomycin HCl 1500 mg/Sodium Chloride 515 ml @ 257.5 mls/ hr Q24H IV Last administered on 05/11/17 18:01; Start 05/09/17 at 15:00; Stop 05/11/17 at 19:01 ; Status DC Miscellaneous Information SPECIFIC LAB TO BE ... ONCE ONCE .XX ; Start 05/11 at 14:45; Stop 05/11/17 at 14:46; Status DC Gadodiamide (Omniscan Pf Inj) 14 ml STK-MED ONCE IV PUSH Last administered on 16:02; Start 05/09/17 at 16:02; Stop 05/09/17 at 16:03; Status DC Bacitracin (Bacitracin Oint Packet) 0.9 gm DAILY TOPICAL Last administered on 08:22; Start 05/10/17 at 09:00; Stop 05/13/17 at 08:43; Status DC Bacitracin (Baciguent Oint) 1 applic DAILY TOPICAL Last administered on 09:21; Start 05/11/17 at 09:00 Vancomycin HCl 1100 mg/Sodium Chloride 261 ml @ 250 mls/hr Q12H IV Last administered on 05/12/17 09:05; Start 05/12/17 at 10:00; Stop 05/12/17 at 10:21 ; Status DC Miscellaneous Information SPECIFIC LAB TO BE DRAWN:VANCO TROUGH DATE TO BE .Richard ONCE ONCE .XX ; Start 05/12/17 at 21:45; Stop 05/12/17 at 21:45; Status DC Cefazolin Sodium/ Dextrose 50 ml @ 100 mls/hr Q8H IV Last administered on 05/24 03:23; Start 05/12/17 at 11:00; Stop 06/23/17 at 10:59 Insulin Human Regular (NovoLIN R INJ) 10 units ONCE ONCE IV PUSH Last administered on 05/14/17 04:39; Start 05/14/17 at 04:30; Stop 05/14/17 at 04:31 ; Status DC Piperacillin Sod/ Tazobactam Sod 50 ml @ 100 mls/hr Q6H IV Last administered on 05/21/17 15:56; Start 05/15/17 at 17:00; Stop 05/21/17 at 18:05; Status DC Dextrose (D50w (Syr) Inj) 50 ml STK-MED ONCE .ROUTE Last administered on 16:36; Start 05/15/17 at 16:34; Stop 05/15/17 at 16:35; Status DC Lidocaine HCl (Xylocaine 2% Inj) 50 ml STK-MED ONCE .ROUTE Last administered on 05/15/17 19:57; Start 05/15/17 at 17:14; Stop 05/15/17 at 17:15; Status DC Bupivacaine HCl (Marcaine Pf 0.25% Inj) 30 ml STK-MED ONCE .ROUTE Last administered on 05/15/17 19:57; Start 05/15/17 at 17:17; Stop 05/15/17 at 17:18 ; Status DC Neomycin/Polymyxin (Neosporin G.u. Irr) 2 ml ONCE ONCE IRRIGATION Last administered on 05/15/17 20:01; Start 05/15/17 at 20:01; Stop 05/15/17 at 20:03 ; Status DC Acetaminophen 100 ml @ As Directed STK-MED ONCE IV ; Start 05/15/17 at 20:06; Stop 05/15/17 at 20:07; Status DC Miscellaneous Information ALL NURSING DEPARTME... UNSCH PRN .XX SEE LABEL COMMENTS; Start 05/15/17 at 20:31; Stop 05/16/17 at 20:30; Status DC Acetaminophen/ Hydrocodone Bitart ([place] 10-325 Mg) 1 tab Q4H PRN PO Pain>5 Last administered on 05/24/17 05:12; Start 05/16/17 at 10:15 Morphine Sulfate (Morphine Inj) 2 mg Q6H PRN IV PUSH BREAKTHROUGH PAIN Last administered on 05/23/17 13:34; Start 05/16/17 at 10:15 Diphenhydramine HCl (Benadryl Inj) 50 mg STK-MED ONCE .ROUTE Last administered on 05/16/17 17:04; Start 05/16/17 at 17:01; Stop 05/16/17 at 17:02; Status DC Miscellaneous Information ALL NURSING DEPARTME... UNSCH PRN .XX SEE LABEL COMMENTS; Start 05/17/17 at 08:53; Stop 05/18/17 at 08:52; Status DC Insulin Detemir (Levemir Inj) 12 units BID SQ Last administered on 05/23/17 21 :12; Start 05/23/17 at 09:00 A/P Problem List: (1) Normocytic anemia ICD Code: D64.9 - Anemia, unspecified (2) Leukocytosis ICD Code: D72.829 - Elevated white blood cell count, unspecified (3) Diabetic foot ulcer associated with type 2 diabetes mellitus, with fat layer exposed ICD Code: E11.621 - Type 2 diabetes mellitus with foot ulcer; L97.502 - Non- pressure chronic ulcer of other part of unspecified foot with fat layer exposed (4) Acute kidney injury ICD Code: N17.9 - Acute kidney failure, unspecified (5) Hyperosmolar non-ketotic state in patient with type 2 diabetes mellitus ICD Code: E11.01 - Type 2 diabetes mellitus with hyperosmolarity with coma (6) Dehydration with hyponatremia ICD Code: E87.1 - Hypo-osmolality and hyponatremia (7) Toxic metabolic encephalopathy ICD Code: G92 - Toxic encephalopathy (8) Septic shock ICD Code: A41.9 - Sepsis, unspecified organism; R65.21 - Severe sepsis with septic shock (9) Severe sepsis ICD Code: A41.9 - Sepsis, unspecified organism; R65.20 - Severe sepsis without septic shock Assessment and Plan A/P Septicemia with MSSA Right diabetic foot infection/cellulitis Continue Ancef Appreciate input from ID Repeat culture NTD Right foot abscess with ulcer stage III with cellulitis Appreciate input from podiatry - s/p wound VAC placement Status post Right foot I and D 05/15/17 and 05/17/17 . Right metatarsal foot biopsy ; negative for osteomyelitis. Continue Ancef for four [id number]. podiatry f/u appreciated; cleared for discharge with outpatient f/u. continue pain control. Hyperosmolar nonketotic state in patient with type 2 diabetes-resolved but with not-optimally controlled hyperglycemia increased Levemir to 12 units twice a day and continue with insulin sliding scale continue to monitor and adjust the regimen as needed. A1c 15.5, patient will need outpatient follow-up with endocrinology lung nodule- f/u as outpatient with CT chest- this has been d/w the patient. DVT prophylaxis with subq Heparin Discharge Planning likely needs to stay in house for IV antibiotic therapy. Problem Qualifiers (1) Leukocytosis: Qualified Codes: D72.829 - Elevated white blood cell count, unspecified (2) Diabetic foot ulcer associated with type 2 diabetes mellitus, with fat layer exposed: Qualified Codes: E11.621 - Type 2 diabetes mellitus with foot ulcer; L97.512 - Non-pressure chronic ulcer of other part of right foot with fat layer exposed Francie hCaves MD May 24, 2017 07:01
[2017-05-24 08:00] VITALS: BP 137/81; PULSE 110; RESP 18; TEMP 98; O2SAT 97
[2017-05-24] MEDS: INSULIN NovoLIN REGULAR SUPPLEMENTAL SCALE SQ SCH ×4 (08:00→21:44)
[2017-05-24] MEDS: INSULIN DETEMIR 100 UNITS/ML VIAL SQ SCH ×2 (08:20→21:30)
[2017-05-24] MEDS: FAMOTIDINE 20 MG TAB PO SCH ×2 (08:22→21:24)
[2017-05-24] MEDS: HEPARIN SODIUM - SQ 10,000 UNITS/ML VIAL SQ SCH ×2 (08:25→21:25)
[2017-05-24] MEDS: SODIUM CHLORIDE 0.9% FLUSH 10 ML FLUSH IV FLUSH SCH ×2 (08:27→21:25)
[2017-05-24] MEDS: BACITRACIN TOP OINT 15 GM TUBE TOPICAL SCH (08:29)
[2017-05-24 12:00] VITALS: BP 122/76; PULSE 90; RESP 18; TEMP 97.5; O2SAT 97
[2017-05-24 16:00] VITALS: BP 160/91; PULSE 95; RESP 18; TEMP 98.2; O2SAT 97
[2017-05-24 20:00] VITALS: BP 136/77; PULSE 95; RESP 17; TEMP 96.8; O2SAT 96
[2017-05-24] MEDS: diphenhydrAMINE HCL 25 MG CAP PO PRN (22:15)
[2017-05-25] VITALS: BP 140/72; PULSE 98; RESP 16; TEMP 96; O2SAT 97
[2017-05-25] MEDS: ACETAMINOPHEN/HYDROcodone 325 MG/10 MG TAB PO PRN ×6 (01:00→22:32)
[2017-05-25] MEDS: diphenhydrAMINE HCL 25 MG CAP PO PRN (02:19)
[2017-05-25] MEDS: ceFAZolin 2 GM PREMIX 50 ML IV SCH ×3 (02:48→17:12)
[2017-05-25] MEDS: CHLORHEXIDINE GLUCONATE 2 % 1 PACK (2 CLOTHS) TOP SCH (03:48)
[2017-05-25 04:00] VITALS: BP 120/70; PULSE 89; RESP 17; TEMP 97; O2SAT 97
[2017-05-25 06:53] LABS: AUTOMATED NEUTROPHIL # 3.7 TH/MM3 (1.8-7.7); BASOPHIL # 0.1 TH/MM3 (0-0.2); BASOPHIL % 1.3 % (0.0-2.0); EOSINOPHIL # 0.3 TH/MM3 (0-0.4); EOSINOPHIL % 4.3 % (0.0-4.0); HEMATOCRIT 30.9 % (39.0-51.0); LYMPH % 38.9 % (9.0-44.0); MEAN CELL VOLUME 82.6 FL (80.0-100.0); MEAN CORPUSCULAR HEMOGLOBIN 27.7 PG (27.0-34.0); MEAN CORPUSCULAR HGB CONC 33.5 % (32.0-36.0); MONO % 6.8 % (0.0-8.0); NEUT % 48.7 % (16.0-70.0); PLATELET COUNT 623 TH/MM3 (150-450); RED BLOOD COUNT 3.74 MIL/MM3 (4.50-5.90); RED CELL DISTRIBUTION WIDTH 13.7 % (11.6-17.2); WHITE BLOOD COUNT 7.6 TH/MM3 (4.0-11.0)
[2017-05-25 07:00] LABS: HEMO FLAGS AUTO DIFF
--- NOTE | 2017-05-25 07:17 | HHI.PR ---
Subjective Remarks in no acute distress. no fever. pain is controlled. no other new complaints. Objective Vitals Vital Signs Date Time Temp Pulse Resp B/P (MAP) Pulse Ox O2 Delivery O2 Flow Rate FiO2 05/25/17 04:00 97.0 89 17 120/70 (87) 97 05/25/17 02:30 20 05/25/17 00:00 96.0 98 16 140/72 (94) 97 05/24/17 23:07 20 05/24/17 20:00 96.8 95 17 136/77 (96) 96 05/24/17 16:00 98.2 95 18 160/91 (114) 97 05/24/17 12:00 97.5 90 18 122/76 (91) 97 05/24/17 08:00 98.0 110 18 137/81 (99) 97 I/O 05/24/17 05/24/17 05/24/17 05/25/17 05/25/17 05/25/17 07:00 15:00 23:00 07:00 15:00 23:00 Intake Total 960 ml 2280 ml 960 ml Output Total 1050 ml 2900 ml 1700 ml Balance -90 ml -620 ml -740 ml Intake Oral 960 ml 2280 ml 960 ml Output Urine Total 1050 ml 2900 ml 1700 ml # Bowel Movements 2 2 Result Diagram: 05/25/17 0613 Imaging Last Impressions Chest X-Ray 05/15/17 0000 Signed Impressions: Service Date/Time: April 08:47 - CONCLUSION: 1.2 cm nodular density in lateral left midlung zone. Recommend chest CT without contrast to evaluate for pulmonary nodule. No other acute cardiopulmonary disease identified. Cyrus Sears MD Foot MRI 05/09/17 0000 Signed Impressions: Service Date/Time: Tuesday, May 09, 2017 15:29 - CONCLUSION: Abnormal head of the fifth metatarsal suggestive of edema and cortical enhancement associated with soft tissue swelling. Early osteomyelitis suspect. Jordan Tovar MD Head CT 05/08/17 0000 Signed Impressions: Service Date/Time: April 14:16 - CONCLUSION: 1. No acute intracranial abnormality is identified. Raghavendra Lim MD Foot X-Ray 05/08/17 0000 Signed Impressions: Service Date/Time: April 11:18 - CONCLUSION: 1. Soft tissue swelling lateral foot near the fifth MTP. No acute bony abnormality. No radiopaque foreign body. Francisco Grider MD Objective Remarks GENERAL: This is a well-nourished, well-developed patient, in no apparent distress. CARDIOVASCULAR: Regular rate and regular rhythm without murmurs, gallops, or rubs. RESPIRATORY: Clear to auscultation. Breath sounds equal bilaterally. No wheezes , rales, or rhonchi. GASTROINTESTINAL: Abdomen soft, non-tender, nondistended. Normal, active bowel sounds MUSCULOSKELETAL: right foot covered with clean dressing with wound vac in place NEURO: Alert & Oriented x4 to person, place, time, situation. Moves all ext x4 Procedures PROCEDURE 1. Right foot I&D procedure 2. Right fifth metatarsal bone biopsy. Medications and IVs Current Medications Sodium Chloride 1,000 ml @ 2,000 mls/hr Q30M ONCE IV Last administered on 05/08 10:54; Start 05/08/17 at 10:43; Stop 05/08/17 at 11:12; Status DC Sodium Chloride (NS Flush) 2 ml UNSCH PRN IVF FLUSH AFTER USING IV ACCESS; Start 05/08/17 at 10:45; Stop 05/09/17 at 11:57; Status DC Insulin Human Regular (NovoLIN R INJ) 10 units ONCE ONCE SQ Last administered on 05/08/17 11:39; Start 05/08/17 at 11:15; Stop 05/08/17 at 11:18; Status DC Piperacillin Sod/ Tazobactam Sod 100 ml @ 200 mls/hr ONCE ONCE IV Last administered on 05/08/17 11:40; Start 05/08/17 at 11:15; Stop 05/08/17 at 11:44 ; Status DC Vancomycin HCl 1000 mg/Sodium Chloride 250 ml @ 250 mls/hr ONCE ONCE IV Last administered on 05/08/17 12:48; Start 05/08/17 at 11:15; Stop 05/08/17 at 12:14 ; Status DC Sodium Chloride 1,000 ml @ 999 mls/hr BOLUS ONCE IV Last administered on 05/08 13:01; Start 05/08/17 at 12:00; Stop 05/08/17 at 13:00; Status DC Insulin Human Regular (NovoLIN R INJ) 10 units ONCE ONCE IV PUSH Last administered on 05/08/17 12:47; Start 05/08/17 at 12:30; Stop 05/08/17 at 12:31 ; Status DC Piperacillin Sod/ Tazobactam Sod 50 ml @ 100 mls/hr Q6H IV ; Start 05/08/17 at 13:00; Stop 05/08/17 at 13:15; Status DC Pharmacy Profile Note 0 ml @ 0 mls/hr UNSCH OTHER ; Start 05/08/17 at 12:45; Stop 05/12/17 at 10:21; Status DC Sodium Chloride (NS Flush) 2 ml UNSCH PRN IV FLUSH FLUSH AFTER USING IV ACCESS ; Start 05/08/17 at 12:45 Sodium Chloride (NS Flush) 2 ml BID IV FLUSH Last administered on 05/24/17 21: 25; Start 05/08/17 at 21:00 Acetaminophen (Tylenol) 650 mg Q6H PRN PO PAIN 1 TO 2 AND/OR FEVER >101F Last administered on 05/16/17 12:49; Start 05/08/17 at 13:00 Acetaminophen/ Hydrocodone Bitart ([place] 5-325 Mg) 1 tab Q4H PRN PO PAIN SCALE 3 TO 5 Last administered on 05/14/17 19:28; Start 05/08/17 at 14:00 Morphine Sulfate (Morphine Inj) 2 mg Q2H PRN IV PUSH PAIN SCALE 6 TO 10 Last administered on 05/16/17 10:02; Start 05/08/17 at 12:45; Stop 05/16/17 at 10:05 ; Status DC Famotidine (Pepcid Inj) 10 mg Q12HR IV PUSH Last administered on 05/08/17 21: 39; Start 05/08/17 at 21:00; Stop 05/09/17 at 08:40; Status DC Ondansetron HCl (Zofran Inj) 4 mg Q6H PRN IV PUSH NAUSEA OR VOMITING Last administered on 05/23/17 13:38; Start 05/08/17 at 14:00 Albuterol Sulfate (Albuterol Neb) 2.5 mg Q2HR NEB PRN INH SOB/WHEEZING; Start 05/08/17 at 14:00 Heparin Sodium (Porcine) (Heparin Inj) 5,000 units Q12HR SQ Last administered on 05/24/17 21:25; Start 05/08/17 at 21:00; Status Future hold Miscellaneous Information 1 Q361D XX ; Start 05/08/17 at 12:45 Chlorhexidine Gluconate (Chlorhexidine 2% Cloth) Taper DAILY@04 TOP Last administered on 05/17/17 03:12; Start 05/09/17 at 04:00; Stop 05/05/18 at 03:59 Chlorhexidine Gluconate (Chlorhexidine 2% Cloth) 3 pack UNSCH PRN TOP HYGIENIC CARE; Start 05/08/17 at 12:45 Senna/Docusate Sodium ([place]-Colace) 1 tab BID PO Last administered on 08:58; Start 05/08/17 at 21:00; Stop 05/12/17 at 10:42; Status DC Magnesium Hydroxide (Milk Of Magnesia Liq) 30 ml Q12H PRN PO MILD - MODERATE CONSTIPATION Last administered on 05/18/17 18:55; Start 05/08/17 at 14:00 Sennosides (Senokot) 17.2 mg Q12HR PRN PO MODERATE - SEVERE CONSTIPATION; Start 05/08/17 at 21:00; Stop 05/12/17 at 10:42; Status DC Bisacodyl (Dulcolax Supp) 10 mg DAILY PRN RECTAL SEVERE CONSITIPATION; Start at 14:00; Stop 05/12/17 at 10:42; Status DC Lactulose (Lactulose Liq) 30 ml DAILY PRN PO SEVERE CONSITIPATION; Start at 14:00; Stop 05/12/17 at 10:42; Status DC Sodium Chloride 1,000 ml @ 1,000 mls/hr Q1H IV ; Start 05/08/17 at 12:48; Stop 05/08/17 at 14:47; Status DC Dextrose/Sodium Chloride 1,000 ml @ 200 mls/hr Q5H IV Last administered on 08:19; Start 05/08/17 at 12:48; Stop 05/09/17 at 11:56; Status DC Insulin Human Regular 100 units/ Sodium Chloride 100 ml @ 1.38 mls/hr TITRATE IV Last administered on 05/08/17t 13:57; Start 05/08/17 at 14:00; Stop at 08:00; Status DC Potassium Chloride 100 ml @ 50 mls/hr Q2H PRN IV SEE LABEL COMMENTS; Start at 13:00; Stop 05/12/17 at 13:56; Status DC Potassium Chloride 100 ml @ 50 mls/hr Q2H PRN IV SEE LABEL COMMENTS Last administered on 05/09/17t 01:01; Start 05/08/17 at 13:00; Stop 05/12/17 at 13:56 ; Status DC Potassium Chloride 100 ml @ 50 mls/hr Q2H PRN IV SEE LABEL COMMENTS; Start at 13:00; Stop 05/12/17 at 13:56; Status DC Potassium Chloride 100 ml @ 50 mls/hr Q2H PRN IV SEE LABEL COMMENTS; Start at 13:00; Stop 05/12/17 at 13:56; Status DC Sodium Bicarbonate (Sodium Bicarbonate 8.4% Inj) 100 meq UNSCH PRN IV SEE LABEL COMMENTS; Start 05/08/17 at 13:00; Stop 05/12/17 at 13:56; Status DC Sodium Bicarbonate (Sodium Bicarbonate 8.4% Inj) 50 meq UNSCH PRN IV SEE LABEL COMMENTS; Start 05/08/17 at 13:00; Stop 05/12/17 at 13:56; Status DC Sodium Phosphate 15 mmol/Sodium Chloride 105 ml @ 25 mls/hr UNSCH PRN IV SEE LABEL COMMENTS; Start 05/08/17 at 13:00; Stop 05/12/17 at 13:56; Status DC Miscellaneous Information 1 Q361D XX ; Start 05/08/17 at 13:00; Stop 05/08/17 at 13:09; Status DC Chlorhexidine Gluconate (Chlorhexidine 2% Cloth) 3 pack Taper DAILY@04 TOP ; Start 05/09/17 at 04:00; Stop 05/09/17 at 04:00; Status DC Chlorhexidine Gluconate (Chlorhexidine 2% Cloth) 3 pack UNSCH PRN TOP HYGIENIC CARE; Start 05/08/17 at 13:00; Stop 05/08/17 at 13:09; Status DC Sodium Chloride 1,000 ml @ 999 mls/hr BOLUS ONCE IV Last administered on 05/08t 13:23; Start 05/08/17 at 13:00; Stop 05/08/17 at 14:00; Status DC Hydralazine HCl (Apresoline Inj) 10 mg Q1HR PRN IV PUSH SBP>170, DBP>90; Start 05/08/17 at 13:15 Nitroglycerin (Nitroglycerin 2% Oint) 2 inch Q6HR PRN TOPICAL SBP>170, DBP>90; Start 05/08/17 at 14:00 Vancomycin HCl 500 mg/Sodium Chloride 100 ml @ 200 mls/hr ONCE ONCE IV ; Start 05/08/17 at 15:00; Stop 05/08/17 at 15:29; Status DC Piperacillin Sod/ Tazobactam Sod 50 ml @ 100 mls/hr Q6H IV Last administered on 05/12/17t 10:12; Start 05/08/17 at 17:00; Stop 05/12/17 at 10:21; Status DC Magnesium Oxide (Mag-Ox) 800 mg UNSCH PRN PO For Magnesium 1.2 - 1.6 mg/dL; Start 05/08/17 at 21:45; Stop 05/12/17 at 13:58; Status DC Magnesium Sulfate 4 gm/Sodium Chloride 100 ml @ 50 mls/hr UNSCH PRN IV For Magnesium 0.9 - 1.1 mg/dL; Start 05/08/17 at 21:45; Stop 05/12/17 at 13:58; Status DC Magnesium Sulfate 2 gm/Sodium Chloride 100 ml @ 50 mls/hr UNSCH PRN IV For Magnesium 1.2 - 1.6 mg/dL; Start 05/08/17 at 21:45; Stop 05/12/17 at 13:58; Status DC Potassium Chloride 100 ml @ 50 mls/hr Q2H PRN IV For Potassium 2.8 - 3.2 mEq/L ; Start 05/08/17 at 21:45; Stop 05/12/17 at 13:58; Status DC Potassium Chloride 100 ml @ 50 mls/hr Q2H PRN IV For Potassium 3.3 - 3.5 mEq/L ; Start 05/08/17 at 21:45; Stop 05/12/17 at 13:58; Status DC Potassium Chloride 100 ml @ 50 mls/hr Q2H PRN IV For Potassium 2.8 - 3.2 mEq/L ; Start 05/08/17 at 21:45; Stop 05/12/17 at 13:58; Status DC Potassium Chloride 100 ml @ 25 mls/hr UNSCH PRN IV For Potassium 3.3 - 3.5 mEq /L; Start 05/08/17 at 21:45; Stop 05/12/17 at 13:58; Status DC Potassium Phosphate (K-Phos) 2,000 mg Q4H PRN PO For Phosphorus < 2.5 mg/dL; Start 05/08/17 at 21:45; Stop 05/12/17 at 13:58; Status DC Potassium Phosphate (K-Phos) 2,000 mg UNSCH PRN PO/TUBE SEE LABEL COMMENTS; Start 05/08/17 at 21:45; Stop 05/12/17 at 13:58; Status DC Potassium Phosphate 30 mmol/ Sodium Chloride 260 ml @ 42 mls/hr UNSCH PRN IV SEE LABEL COMMENTS Last administered on 05/08/17 22:25; Start 05/08/17 at 21:45 ; Stop 05/12/17 at 13:58; Status DC Sodium Phosphate 30 mmol/Sodium Chloride 250 ml @ 42 mls/hr UNSCH PRN IV For Phosphorus < 2.5 mg/dL; Start 05/08/17 at 21:45; Stop 05/12/17 at 13:58; Status DC Miscellaneous Information 1 ONCE ONCE .XX Last administered on 05/09/17 08:00 ; Start 05/09/17 at 08:00; Stop 05/09/17 at 08:01; Status DC Miscellaneous Information 1 ONCE ONCE .XX Last administered on 05/09/17 08:00 ; Start 05/09/17 at 08:00; Stop 05/09/17 at 08:01; Status DC Insulin Detemir (Levemir Inj) 10 units BID SQ Last administered on 05/22/17 22 :30; Start 05/09/17 at 09:00; Stop 05/23/17 at 07:39; Status DC Insulin Human Regular (NovoLIN R SUPPLEMENTAL SCALE) 1 ACHS SLIDING SCALE SQ Last administered on 05/09/17 08:00; Start 05/09/17 at 08:00; Stop 05/09/17 at 11:00; Status DC Dextrose (D50w (Vial) Inj) 50 ml UNSCH PRN IV PUSH HYPOGLYCEMIA-SEE COMMENTS; Start 05/09/17 at 08:00 Glucagon (Glucagon Inj) 1 mg UNSCH PRN OTHER HYPOGLYCEMIA-SEE COMMENTS; Start 05/09/17 at 08:00 Famotidine (Pepcid) 20 mg BID PO Last administered on 05/24/17 21:24; Start at 09:00 Insulin Human Regular (NovoLIN R SUPPLEMENTAL SCALE) 1 ACHS SLIDING SCALE SQ Last administered on 05/24/17 21:44; Start 05/09/17 at 12:00 Vancomycin HCl 1500 mg/Sodium Chloride 515 ml @ 257.5 mls/ hr Q24H IV Last administered on 05/11/17 18:01; Start 05/09/17 at 15:00; Stop 05/11/17 at 19:01 ; Status DC Miscellaneous Information SPECIFIC LAB TO BE .. ONCE ONCE .XX ; Start 05/11 at 14:45; Stop 05/11/17 at 14:46; Status DC Gadodiamide (Omniscan Pf Inj) 14 ml STK-MED ONCE IV PUSH Last administered on 16:02; Start 05/09/17 at 16:02; Stop 05/09/17 at 16:03; Status DC Bacitracin (Bacitracin Oint Packet) 0.9 gm DAILY TOPICAL Last administered on 08:22; Start 05/10/17 at 09:00; Stop 05/13/17 at 08:43; Status DC Bacitracin (Baciguent Oint) 1 applic DAILY TOPICAL Last administered on 09:21; Start 05/11/17 at 09:00 Vancomycin HCl 1100 mg/Sodium Chloride 261 ml @ 250 mls/hr Q12H IV Last administered on 05/12/17 09:05; Start 05/12/17 at 10:00; Stop 05/12/17 at 10:21 ; Status DC Miscellaneous Information SPECIFIC LAB TO BE DRAWN:VANCO TROUGH DATE TO BE ONCE ONCE .XX ; Start 05/12/17 at 21:45; Stop 05/12/17 at 21:45; Status DC Cefazolin Sodium/ Dextrose 50 ml @ 100 mls/hr Q8H IV Last administered on 05/25 02:48; Start 05/12/17 at 11:00; Stop 06/23/17 at 10:59 Insulin Human Regular (NovoLIN R INJ) 10 units ONCE ONCE IV PUSH Last administered on 05/14/17 04:39; Start 05/14/17 at 04:30; Stop 05/14/17 at 04:31 ; Status DC Piperacillin Sod/ Tazobactam Sod 50 ml @ 100 mls/hr Q6H IV Last administered on 05/21/17 15:56; Start 05/15/17 at 17:00; Stop 05/21/17 at 18:05; Status DC Dextrose (D50w (Syr) Inj) 50 ml STK-MED ONCE .ROUTE Last administered on 16:36; Start 05/15/17 at 16:34; Stop 05/15/17 at 16:35; Status DC Lidocaine HCl (Xylocaine 2% Inj) 50 ml STK-MED ONCE .ROUTE Last administered on 05/15/17 19:57; Start 05/15/17 at 17:14; Stop 05/15/17 at 17:15; Status DC Bupivacaine HCl (Marcaine Pf 0.25% Inj) 30 ml STK-MED ONCE .ROUTE Last administered on 05/15/17 19:57; Start 05/15/17 at 17:17; Stop 05/15/17 at 17:18 ; Status DC Neomycin/Polymyxin (Neosporin G.u. Irr) 2 ml ONCE ONCE IRRIGATION Last administered on 05/15/17 20:01; Start 05/15/17 at 20:01; Stop 05/15/17 at 20:03 ; Status DC Acetaminophen 100 ml @ As Directed STK-MED ONCE IV ; Start 05/15/17 at 20:06; Stop 05/15/17 at 20:07; Status DC Miscellaneous Information ALL NURSING DEPARTME... UNSCH PRN .XX SEE LABEL COMMENTS; Start 05/15/17 at 20:31; Stop 05/16/17 at 20:30; Status DC Acetaminophen/ Hydrocodone Bitart ([place] 10-325 Mg) 1 tab Q4H PRN PO Pain>5 Last administered on 05/25/17 05:30; Start 05/16/17 at 10:15 Morphine Sulfate (Morphine Inj) 2 mg Q6H PRN IV PUSH BREAKTHROUGH PAIN Last administered on 05/24/17 22:18; Start 05/16/17 at 10:15 Diphenhydramine HCl (Benadryl Inj) 50 mg STK-MED ONCE .ROUTE Last administered on 05/16/17 17:04; Start 05/16/17 at 17:01; Stop 05/16/17 at 17:02; Status DC Miscellaneous Information ALL NURSING DEPARTME... UNSCH PRN .XX SEE LABEL COMMENTS; Start 05/17/17 at 08:53; Stop 05/18/17 at 08:52; Status DC Insulin Detemir (Levemir Inj) 12 units BID SQ Last administered on 05/24/17 21 :30; Start 05/23/17 at 09:00 Diphenhydramine HCl (Benadryl) 25 mg Q4H PRN PO pruritis Last administered on 05/25/17 02:19; Start 05/24/17 at 22:00 A/P Problem List: (1) Normocytic anemia ICD Code: D64.9 - Anemia, unspecified (2) Leukocytosis ICD Code: D72.829 - Elevated white blood cell count, unspecified (3) Diabetic foot ulcer associated with type 2 diabetes mellitus, with fat layer exposed ICD Code: E11.621 - Type 2 diabetes mellitus with foot ulcer; L97.502 - Non- pressure chronic ulcer of other part of unspecified foot with fat layer exposed (4) Acute kidney injury ICD Code: N17.9 - Acute kidney failure, unspecified (5) Hyperosmolar non-ketotic state in patient with type 2 diabetes mellitus ICD Code: E11.01 - Type 2 diabetes mellitus with hyperosmolarity with coma (6) Dehydration with hyponatremia ICD Code: E87.1 - Hypo-osmolality and hyponatremia (7) Toxic metabolic encephalopathy ICD Code: G92 - Toxic encephalopathy (8) Septic shock ICD Code: A41.9 - Sepsis, unspecified organism; R65.21 - Severe sepsis with septic shock (9) Severe sepsis ICD Code: A41.9 - Sepsis, unspecified organism; R65.20 - Severe sepsis without septic shock Assessment and Plan A/P Septicemia with MSSA Right diabetic foot infection/cellulitis Continue Ancef Appreciate input from ID Repeat culture NTD Right foot abscess with ulcer stage III with cellulitis Appreciate input from podiatry - s/p wound VAC placement Status post Right foot I and D 05/15/17 and 05/17/17 . Right metatarsal foot biopsy ; negative for osteomyelitis. Continue Ancef for four [id number]. podiatry f/u appreciated; cleared for discharge with outpatient f/u. continue pain control. Hyperosmolar nonketotic state in patient with type 2 diabetes-resolved but with not-optimally controlled hyperglycemia continue Levemir 12 units twice a day and continue with insulin sliding scale continue to monitor and adjust the regimen as needed. A1c 15.5, patient will need outpatient follow-up with endocrinology lung nodule- f/u as outpatient with CT chest- this has been d/w the patient. DVT prophylaxis with subq Heparin Discharge Planning likely needs to stay in house for IV antibiotic therapy. Problem Qualifiers (1) Leukocytosis: Qualified Codes: D72.829 - Elevated white blood cell count, unspecified (2) Diabetic foot ulcer associated with type 2 diabetes mellitus, with fat layer exposed: Qualified Codes: E11.621 - Type 2 diabetes mellitus with foot ulcer; L97.512 - Non-pressure chronic ulcer of other part of right foot with fat layer exposed Francie Chaves MD May 25, 2017 07:17
[2017-05-25 07:20] LABS: ALKALINE PHOSPHATASE 194 U/L (45-117); TOTAL BILIRUBIN ADULT 0.2 MG/DL (0.2-1.0)
[2017-05-25 07:24] LABS: ALT (GPT) 12 U/L (12-78); ANION GAP 9 MEQ/L (5-15); AST (GOT) 15 U/L (15-37); BICARBONATE 24.9 MEQ/L (21.0-32.0); BLOOD UREA NITROGEN 14 MG/DL (7-18); CHLORIDE 100 MEQ/L (98-107); GLOMERULAR FILTRATION RATE 69 ML/MIN (>89); POTASSIUM 4.6 MEQ/L (3.5-5.1); SODIUM (NA) 134 MEQ/L (136-145)
[2017-05-25 08:00] VITALS: BP 114/73; PULSE 100; RESP 20; TEMP 97.1; O2SAT 97
[2017-05-25] MEDS: BACITRACIN TOP OINT 15 GM TUBE TOPICAL SCH (09:00)
[2017-05-25 09:07] LABS: SCAN/DIFF AUTO DIFF CONFIRMED
[2017-05-25] MEDS: FAMOTIDINE 20 MG TAB PO SCH ×2 (09:24→21:53)
[2017-05-25] MEDS: HEPARIN SODIUM - SQ 10,000 UNITS/ML VIAL SQ SCH ×2 (09:25→21:53)
[2017-05-25] MEDS: INSULIN NovoLIN REGULAR SUPPLEMENTAL SCALE SQ SCH ×4 (09:26→22:02)
[2017-05-25] MEDS: SODIUM CHLORIDE 0.9% FLUSH 10 ML FLUSH IV FLUSH SCH ×2 (09:26→21:53)
[2017-05-25] MEDS: INSULIN DETEMIR 100 UNITS/ML VIAL SQ SCH ×2 (09:30→21:53)
[2017-05-25 12:00] VITALS: BP 118/69; PULSE 106; RESP 18; TEMP 97.9; O2SAT 96
[2017-05-25 16:00] VITALS: BP 140/82; PULSE 85; RESP 20; TEMP 97.4; O2SAT 96
[2017-05-25 20:00] VITALS: BP 131/65; PULSE 92; RESP 17; TEMP 97.5; O2SAT 97
[2017-05-26] VITALS: BP 109/63; PULSE 101; RESP 16; TEMP 97.3; O2SAT 98
[2017-05-26] MEDS: ACETAMINOPHEN/HYDROcodone 325 MG/10 MG TAB PO PRN ×6 (02:28→22:40)
[2017-05-26] MEDS: ceFAZolin 2 GM PREMIX 50 ML IV SCH ×3 (02:28→18:17)
[2017-05-26 04:00] VITALS: BP 115/80; PULSE 93; RESP 16; TEMP 97; O2SAT 98
[2017-05-26] MEDS: CHLORHEXIDINE GLUCONATE 2 % 1 PACK (2 CLOTHS) TOP SCH (04:00)
[2017-05-26 08:00] VITALS: BP 124/72; PULSE 88; RESP 20; TEMP 96.9; O2SAT 98
[2017-05-26] MEDS: FAMOTIDINE 20 MG TAB PO SCH ×2 (08:04→22:41)
[2017-05-26] MEDS: HEPARIN SODIUM - SQ 10,000 UNITS/ML VIAL SQ SCH ×2 (08:04→22:41)
[2017-05-26] MEDS: SODIUM CHLORIDE 0.9% FLUSH 10 ML FLUSH IV FLUSH SCH ×2 (08:05→22:41)
--- NOTE | 2017-05-26 08:05 | HHI.PR ---
Subjective Remarks resting comfortably with no distress/ pain is controlled. no fever. blood sugar trend noted. Objective Vitals Vital Signs Date Time Temp Pulse Resp B/P (MAP) Pulse Ox O2 Delivery O2 Flow Rate FiO2 05/26/17 04:00 97.0 93 16 115/80 (92) 98 05/26/17 03:25 16 05/26/17 00:00 97.3 101 16 109/63 (78) 98 05/25/17 20:00 97.5 92 17 131/65 (87) 97 05/25/17 16:00 97.4 85 20 140/82 (101) 96 05/25/17 12:00 97.9 106 18 118/69 (85) 96 I/O 05/25/17 05/25/17 05/25/17 05/26/17 05/26/17 05/26/17 06:59 14:59 22:59 06:59 14:59 22:59 Intake Total 960 ml 50 ml 2090 ml 1463 ml Output Total 1700 ml 2200 ml 2050 ml Balance -740 ml 50 ml -110 ml -587 ml Intake Oral 960 ml 2040 ml 960 ml IV Total 50 ml 50 ml 503 ml Output Urine Total 1700 ml 2200 ml 2050 ml # Bowel Movements 2 4 Result Diagram: 05/25/1761205/25/17612 Imaging Last Impressions Chest X-Ray 05/15/17 0000 Signed Impressions: Service Date/Time: April 08:47 - CONCLUSION: 1.2 cm nodular density in lateral left midlung zone. Recommend chest CT without contrast to evaluate for pulmonary nodule. No other acute cardiopulmonary disease identified. Cyrus Sears MD Foot MRI 05/09/17 0000 Signed Impressions: Service Date/Time: Tuesday, May 09, 2017 15:29 - CONCLUSION: Abnormal head of the fifth metatarsal suggestive of edema and cortical enhancement associated with soft tissue swelling. Early osteomyelitis suspect. Jordan Tovar MD Head CT 05/08/17 0000 Signed Impressions: Service Date/Time: April 14:16 - CONCLUSION: 1. No acute intracranial abnormality is identified. Raghavendra Lim MD Foot X-Ray 05/08/17 0000 Signed Impressions: Service Date/Time: April 11:18 - CONCLUSION: 1. Soft tissue swelling lateral foot near the fifth MTP. No acute bony abnormality. No radiopaque foreign body. Francisco Grider MD Objective Remarks GENERAL: This is a well-nourished, well-developed patient, in no apparent distress. CARDIOVASCULAR: Regular rate and regular rhythm without murmurs, gallops, or rubs. RESPIRATORY: Clear to auscultation. Breath sounds equal bilaterally. No wheezes , rales, or rhonchi. GASTROINTESTINAL: Abdomen soft, non-tender, nondistended. Normal, active bowel sounds MUSCULOSKELETAL: right foot covered with clean dressing with wound vac in place NEURO: Alert & Oriented x4 to person, place, time, situation. Moves all ext x4 Procedures PROCEDURE 1. Right foot I&D procedure 2. Right fifth metatarsal bone biopsy. Medications and IVs Current Medications Sodium Chloride 1,000 ml @ 2,000 mls/hr Q30M ONCE IV Last administered on 05/08 10:54; Start 05/08/17 at 10:43; Stop 05/08/17 at 11:12; Status DC Sodium Chloride (NS Flush) 2 ml UNSCH PRN IVF FLUSH AFTER USING IV ACCESS; Start 05/08/17 at 10:45; Stop 05/09/17 at 11:57; Status DC Insulin Human Regular (NovoLIN R INJ) 10 units ONCE ONCE SQ Last administered on 05/08/17 11:39; Start 05/08/17 at 11:15; Stop 05/08/17 at 11:18; Status DC Piperacillin Sod/ Tazobactam Sod 100 ml @ 200 mls/hr ONCE ONCE IV Last administered on 05/08/17 11:40; Start 05/08/17 at 11:15; Stop 05/08/17 at 11:44 ; Status DC Vancomycin HCl 1000 mg/Sodium Chloride 250 ml @ 250 mls/hr ONCE ONCE IV Last administered on 05/08/17 12:48; Start 05/08/17 at 11:15; Stop 05/08/17 at 12:14 ; Status DC Sodium Chloride 1,000 ml @ 999 mls/hr BOLUS ONCE IV Last administered on 05/08 13:01; Start 05/08/17 at 12:00; Stop 05/08/17 at 13:00; Status DC Insulin Human Regular (NovoLIN R INJ) 10 units ONCE ONCE IV PUSH Last administered on 05/08/17 12:47; Start 05/08/17 at 12:30; Stop 05/08/17 at 12:31 ; Status DC Piperacillin Sod/ Tazobactam Sod 50 ml @ 100 mls/hr Q6H IV ; Start 05/08/17 at 13:00; Stop 05/08/17 at 13:15; Status DC Pharmacy Profile Note 0 ml @ 0 mls/hr UNSCH OTHER ; Start 05/08/17 at 12:45; Stop 05/12/17 at 10:21; Status DC Sodium Chloride (NS Flush) 2 ml UNSCH PRN IV FLUSH FLUSH AFTER USING IV ACCESS ; Start 05/08/17 at 12:45 Sodium Chloride (NS Flush) 2 ml BID IV FLUSH Last administered on 05/25/17 21: 53; Start 05/08/17 at 21:00 Acetaminophen (Tylenol) 650 mg Q6H PRN PO PAIN 1 TO 2 AND/OR FEVER >101F Last administered on 05/16/17 12:49; Start 05/08/17 at 13:00 Acetaminophen/ Hydrocodone Bitart ([place] 5-325 Mg) 1 tab Q4H PRN PO PAIN SCALE 3 TO 5 Last administered on 05/14/17 19:28; Start 05/08/17 at 14:00 Morphine Sulfate (Morphine Inj) 2 mg Q2H PRN IV PUSH PAIN SCALE 6 TO 10 Last administered on 05/16/17 10:02; Start 05/08/17 at 12:45; Stop 05/16/17 at 10:05 ; Status DC Famotidine (Pepcid Inj) 10 mg Q12HR IV PUSH Last administered on 05/08/17 21: 39; Start 05/08/17 at 21:00; Stop 05/09/17 at 08:40; Status DC Ondansetron HCl (Zofran Inj) 4 mg Q6H PRN IV PUSH NAUSEA OR VOMITING Last administered on 05/23/17 13:38; Start 05/08/17 at 14:00 Albuterol Sulfate (Albuterol Neb) 2.5 mg Q2HR NEB PRN INH SOB/WHEEZING; Start 05/08/17 at 14:00 Heparin Sodium (Porcine) (Heparin Inj) 5,000 units Q12HR SQ Last administered on 05/25/17 21:53; Start 05/08/17 at 21:00; Status Future hold Miscellaneous Information 1 Q361D XX ; Start 05/08/17 at 12:45 Chlorhexidine Gluconate (Chlorhexidine 2% Cloth) Taper DAILY@04 TOP Last administered on 05/17/17 03:12; Start 05/09/17 at 04:00; Stop 05/05/18 at 03:59 Chlorhexidine Gluconate (Chlorhexidine 2% Cloth) 3 pack UNSCH PRN TOP HYGIENIC CARE; Start 05/08/17 at 12:45 Senna/Docusate Sodium ([place]-Colace) 1 tab BID PO Last administered on 08:58; Start 05/08/17 at 21:00; Stop 05/12/17 at 10:42; Status DC Magnesium Hydroxide (Milk Of Magnesia Liq) 30 ml Q12H PRN PO MILD - MODERATE CONSTIPATION Last administered on 05/18/17 18:55; Start 05/08/17 at 14:00 Sennosides (Senokot) 17.2 mg Q12HR PRN PO MODERATE - SEVERE CONSTIPATION; Start 05/08/17 at 21:00; Stop 05/12/17 at 10:42; Status DC Bisacodyl (Dulcolax Supp) 10 mg DAILY PRN RECTAL SEVERE CONSITIPATION; Start at 14:00; Stop 05/12/17 at 10:42; Status DC Lactulose (Lactulose Liq) 30 ml DAILY PRN PO SEVERE CONSITIPATION; Start at 14:00; Stop 05/12/17 at 10:42; Status DC Sodium Chloride 1,000 ml @ 1,000 mls/hr Q1H IV ; Start 05/08/17 at 12:48; Stop 05/08/17 at 14:47; Status DC Dextrose/Sodium Chloride 1,000 ml @ 200 mls/hr Q5H IV Last administered on 08:19; Start 05/08/17 at 12:48; Stop 05/09/17 at 11:56; Status DC Insulin Human Regular 100 units/ Sodium Chloride 100 ml @ 1.38 mls/hr TITRATE IV Last administered on 05/08/17t 13:57; Start 05/08/17 at 14:00; Stop at 08:00; Status DC Potassium Chloride 100 ml @ 50 mls/hr Q2H PRN IV SEE LABEL COMMENTS; Start at 13:00; Stop 05/12/17 at 13:56; Status DC Potassium Chloride 100 ml @ 50 mls/hr Q2H PRN IV SEE LABEL COMMENTS Last administered on 05/09/17t 01:01; Start 05/08/17 at 13:00; Stop 05/12/17 at 13:56 ; Status DC Potassium Chloride 100 ml @ 50 mls/hr Q2H PRN IV SEE LABEL COMMENTS; Start at 13:00; Stop 05/12/17 at 13:56; Status DC Potassium Chloride 100 ml @ 50 mls/hr Q2H PRN IV SEE LABEL COMMENTS; Start at 13:00; Stop 05/12/17 at 13:56; Status DC Sodium Bicarbonate (Sodium Bicarbonate 8.4% Inj) 100 meq UNSCH PRN IV SEE LABEL COMMENTS; Start 05/08/17 at 13:00; Stop 05/12/17 at 13:56; Status DC Sodium Bicarbonate (Sodium Bicarbonate 8.4% Inj) 50 meq UNSCH PRN IV SEE LABEL COMMENTS; Start 05/08/17 at 13:00; Stop 05/12/17 at 13:56; Status DC Sodium Phosphate 15 mmol/Sodium Chloride 105 ml @ 25 mls/hr UNSCH PRN IV SEE LABEL COMMENTS; Start 05/08/17 at 13:00; Stop 05/12/17 at 13:56; Status DC Miscellaneous Information 1 Q361D XX ; Start 05/08/17 at 13:00; Stop 05/08/17 at 13:09; Status DC Chlorhexidine Gluconate (Chlorhexidine 2% Cloth) 3 pack Taper DAILY@04 TOP ; Start 05/09/17 at 04:00; Stop 05/09/17 at 04:00; Status DC Chlorhexidine Gluconate (Chlorhexidine 2% Cloth) 3 pack UNSCH PRN TOP HYGIENIC CARE; Start 05/08/17 at 13:00; Stop 05/08/17 at 13:09; Status DC Sodium Chloride 1,000 ml @ 999 mls/hr BOLUS ONCE IV Last administered on 05/08t 13:23; Start 05/08/17 at 13:00; Stop 05/08/17 at 14:00; Status DC Hydralazine HCl (Apresoline Inj) 10 mg Q1HR PRN IV PUSH SBP>170, DBP>90; Start 05/08/17 at 13:15 Nitroglycerin (Nitroglycerin 2% Oint) 2 inch Q6HR PRN TOPICAL SBP>170, DBP>90; Start 05/08/17 at 14:00 Vancomycin HCl 500 mg/Sodium Chloride 100 ml @ 200 mls/hr ONCE ONCE IV ; Start 05/08/17 at 15:00; Stop 05/08/17 at 15:29; Status DC Piperacillin Sod/ Tazobactam Sod 50 ml @ 100 mls/hr Q6H IV Last administered on 05/12/17t 10:12; Start 05/08/17 at 17:00; Stop 05/12/17 at 10:21; Status DC Magnesium Oxide (Mag-Ox) 800 mg UNSCH PRN PO For Magnesium 1.2 - 1.6 mg/dL; Start 05/08/17 at 21:45; Stop 05/12/17 at 13:58; Status DC Magnesium Sulfate 4 gm/Sodium Chloride 100 ml @ 50 mls/hr UNSCH PRN IV For Magnesium 0.9 - 1.1 mg/dL; Start 05/08/17 at 21:45; Stop 05/12/17 at 13:58; Status DC Magnesium Sulfate 2 gm/Sodium Chloride 100 ml @ 50 mls/hr UNSCH PRN IV For Magnesium 1.2 - 1.6 mg/dL; Start 05/08/17 at 21:45; Stop 05/12/17 at 13:58; Status DC Potassium Chloride 100 ml @ 50 mls/hr Q2H PRN IV For Potassium 2.8 - 3.2 mEq/L ; Start 05/08/17 at 21:45; Stop 05/12/17 at 13:58; Status DC Potassium Chloride 100 ml @ 50 mls/hr Q2H PRN IV For Potassium 3.3 - 3.5 mEq/L ; Start 05/08/17 at 21:45; Stop 05/12/17 at 13:58; Status DC Potassium Chloride 100 ml @ 50 mls/hr Q2H PRN IV For Potassium 2.8 - 3.2 mEq/L ; Start 05/08/17 at 21:45; Stop 05/12/17 at 13:58; Status DC Potassium Chloride 100 ml @ 25 mls/hr UNSCH PRN IV For Potassium 3.3 - 3.5 mEq /L; Start 05/08/17 at 21:45; Stop 05/12/17 at 13:58; Status DC Potassium Phosphate (K-Phos) 2,000 mg Q4H PRN PO For Phosphorus < 2.5 mg/dL; Start 05/08/17 at 21:45; Stop 05/12/17 at 13:58; Status DC Potassium Phosphate (K-Phos) 2,000 mg UNSCH PRN PO/TUBE SEE LABEL COMMENTS; Start 05/08/17 at 21:45; Stop 05/12/17 at 13:58; Status DC Potassium Phosphate 30 mmol/ Sodium Chloride 260 ml @ 42 mls/hr UNSCH PRN IV SEE LABEL COMMENTS Last administered on 05/08/17 22:25; Start 05/08/17 at 21:45 ; Stop 05/12/17 at 13:58; Status DC Sodium Phosphate 30 mmol/Sodium Chloride 250 ml @ 42 mls/hr UNSCH PRN IV For Phosphorus < 2.5 mg/dL; Start 05/08/17 at 21:45; Stop 05/12/17 at 13:58; Status DC Miscellaneous Information 1 ONCE ONCE .XX Last administered on 05/09/17 08:00 ; Start 05/09/17 at 08:00; Stop 05/09/17 at 08:01; Status DC Miscellaneous Information 1 ONCE ONCE .XX Last administered on 05/09/17 08:00 ; Start 05/09/17 at 08:00; Stop 05/09/17 at 08:01; Status DC Insulin Detemir (Levemir Inj) 10 units BID SQ Last administered on 05/22/17 22 :30; Start 05/09/17 at 09:00; Stop 05/23/17 at 07:39; Status DC Insulin Human Regular (NovoLIN R SUPPLEMENTAL SCALE) 1 ACHS SLIDING SCALE SQ Last administered on 05/09/17 08:00; Start 05/09/17 at 08:00; Stop 05/09/17 at 11:00; Status DC Dextrose (D50w (Vial) Inj) 50 ml UNSCH PRN IV PUSH HYPOGLYCEMIA-SEE COMMENTS; Start 05/09/17 at 08:00 Glucagon (Glucagon Inj) 1 mg UNSCH PRN OTHER HYPOGLYCEMIA-SEE COMMENTS; Start 05/09/17 at 08:00 Famotidine (Pepcid) 20 mg BID PO Last administered on 05/25/17 21:53; Start at 09:00 Insulin Human Regular (NovoLIN R SUPPLEMENTAL SCALE) 1 ACHS SLIDING SCALE SQ Last administered on 05/25/17 22:02; Start 05/09/17 at 12:00 Vancomycin HCl 1500 mg/Sodium Chloride 515 ml @ 257.5 mls/ hr Q24H IV Last administered on 05/11/17 18:01; Start 05/09/17 at 15:00; Stop 05/11/17 at 19:01 ; Status DC Miscellaneous Information SPECIFIC LAB TO BE .. ONCE ONCE .XX ; Start 05/11 at 14:45; Stop 05/11/17 at 14:46; Status DC Gadodiamide (Omniscan Pf Inj) 14 ml STK-MED ONCE IV PUSH Last administered on 16:02; Start 05/09/17 at 16:02; Stop 05/09/17 at 16:03; Status DC Bacitracin (Bacitracin Oint Packet) 0.9 gm DAILY TOPICAL Last administered on 08:22; Start 05/10/17 at 09:00; Stop 05/13/17 at 08:43; Status DC Bacitracin (Baciguent Oint) 1 applic DAILY TOPICAL Last administered on 09:21; Start 05/11/17 at 09:00 Vancomycin HCl 1100 mg/Sodium Chloride 261 ml @ 250 mls/hr Q12H IV Last administered on 05/12/17 09:05; Start 05/12/17 at 10:00; Stop 05/12/17 at 10:21 ; Status DC Miscellaneous Information SPECIFIC LAB TO BE DRAWN:VANCO TROUGH DATE TO BE ONCE ONCE .XX ; Start 05/12/17 at 21:45; Stop 05/12/17 at 21:45; Status DC Cefazolin Sodium/ Dextrose 50 ml @ 100 mls/hr Q8H IV Last administered on 05/26 02:28; Start 05/12/17 at 11:00; Stop 06/23/17 at 10:59 Insulin Human Regular (NovoLIN R INJ) 10 units ONCE ONCE IV PUSH Last administered on 05/14/17 04:39; Start 05/14/17 at 04:30; Stop 05/14/17 at 04:31 ; Status DC Piperacillin Sod/ Tazobactam Sod 50 ml @ 100 mls/hr Q6H IV Last administered on 05/21/17 15:56; Start 05/15/17 at 17:00; Stop 05/21/17 at 18:05; Status DC Dextrose (D50w (Syr) Inj) 50 ml STK-MED ONCE .ROUTE Last administered on 16:36; Start 05/15/17 at 16:34; Stop 05/15/17 at 16:35; Status DC Lidocaine HCl (Xylocaine 2% Inj) 50 ml STK-MED ONCE .ROUTE Last administered on 05/15/17 19:57; Start 05/15/17 at 17:14; Stop 05/15/17 at 17:15; Status DC Bupivacaine HCl (Marcaine Pf 0.25% Inj) 30 ml STK-MED ONCE .ROUTE Last administered on 05/15/17 19:57; Start 05/15/17 at 17:17; Stop 05/15/17 at 17:18 ; Status DC Neomycin/Polymyxin (Neosporin G.u. Irr) 2 ml ONCE ONCE IRRIGATION Last administered on 05/15/17 20:01; Start 05/15/17 at 20:01; Stop 05/15/17 at 20:03 ; Status DC Acetaminophen 100 ml @ As Directed STK-MED ONCE IV ; Start 05/15/17 at 20:06; Stop 05/15/17 at 20:07; Status DC Miscellaneous Information ALL NURSING DEPARTME... UNSCH PRN .XX SEE LABEL COMMENTS; Start 05/15/17 at 20:31; Stop 05/16/17 at 20:30; Status DC Acetaminophen/ Hydrocodone Bitart ([place] 10-325 Mg) 1 tab Q4H PRN PO Pain>5 Last administered on 05/26/17 06:31; Start 05/16/17 at 10:15 Morphine Sulfate (Morphine Inj) 2 mg Q6H PRN IV PUSH BREAKTHROUGH PAIN Last administered on 05/24/17 22:18; Start 05/16/17 at 10:15 Diphenhydramine HCl (Benadryl Inj) 50 mg STK-MED ONCE .ROUTE Last administered on 05/16/17 17:04; Start 05/16/17 at 17:01; Stop 05/16/17 at 17:02; Status DC Miscellaneous Information ALL NURSING DEPARTME... UNSCH PRN .XX SEE LABEL COMMENTS; Start 05/17/17 at 08:53; Stop 05/18/17 at 08:52; Status DC Insulin Detemir (Levemir Inj) 12 units BID SQ Last administered on 05/25/17 21 :53; Start 05/23/17 at 09:00 Diphenhydramine HCl (Benadryl) 25 mg Q4H PRN PO pruritis Last administered on 05/25/17 02:19; Start 05/24/17 at 22:00 A/P Problem List: (1) Normocytic anemia ICD Code: D64.9 - Anemia, unspecified (2) Leukocytosis ICD Code: D72.829 - Elevated white blood cell count, unspecified (3) Diabetic foot ulcer associated with type 2 diabetes mellitus, with fat layer exposed ICD Code: E11.621 - Type 2 diabetes mellitus with foot ulcer; L97.502 - Non- pressure chronic ulcer of other part of unspecified foot with fat layer exposed (4) Acute kidney injury ICD Code: N17.9 - Acute kidney failure, unspecified (5) Hyperosmolar non-ketotic state in patient with type 2 diabetes mellitus ICD Code: E11.01 - Type 2 diabetes mellitus with hyperosmolarity with coma (6) Dehydration with hyponatremia ICD Code: E87.1 - Hypo-osmolality and hyponatremia (7) Toxic metabolic encephalopathy ICD Code: G92 - Toxic encephalopathy (8) Septic shock ICD Code: A41.9 - Sepsis, unspecified organism; R65.21 - Severe sepsis with septic shock (9) Severe sepsis ICD Code: A41.9 - Sepsis, unspecified organism; R65.20 - Severe sepsis without septic shock Assessment and Plan A/P Septicemia with MSSA Right diabetic foot infection/cellulitis Continue Ancef Appreciate input from ID Repeat culture NTD Right foot abscess with ulcer stage III with cellulitis Appreciate input from podiatry - s/p wound VAC placement Status post Right foot I and D 05/15/17 and 05/17/17 . Right metatarsal foot biopsy ; negative for osteomyelitis. Continue Ancef for four [id number]. podiatry f/u appreciated; cleared for discharge with outpatient f/u. continue pain control. Hyperosmolar nonketotic state in patient with type 2 diabetes-resolved but with not-optimally controlled hyperglycemia increase Levemir to 14 units twice a day and continue with insulin sliding scale continue to monitor and adjust the regimen as needed. A1c 15.5, patient will need outpatient follow-up with endocrinology lung nodule- f/u as outpatient with CT chest- this has been d/w the patient. DVT prophylaxis with subq Heparin Discharge Planning d/w the case management today; the patient doesn't have a place to go at this time and the doesn't know when she'll have a place for him to go. he likely needs to stay in house for IV antibiotic therapy. d/w as well. Problem Qualifiers (1) Leukocytosis: Qualified Codes: D72.829 - Elevated white blood cell count, unspecified (2) Diabetic foot ulcer associated with type 2 diabetes mellitus, with fat layer exposed: Qualified Codes: E11.621 - Type 2 diabetes mellitus with foot ulcer; L97.512 - Non-pressure chronic ulcer of other part of right foot with fat layer exposed Francie Chaves MD May 26, 2017 08:05
[2017-05-26] MEDS: BACITRACIN TOP OINT 15 GM TUBE TOPICAL SCH (08:08)
[2017-05-26] MEDS: INSULIN NovoLIN REGULAR SUPPLEMENTAL SCALE SQ SCH ×4 (08:08→22:47)
[2017-05-26] MEDS: INSULIN DETEMIR 100 UNITS/ML VIAL SQ SCH ×2 (09:00→22:41)
[2017-05-26] MEDS: MORPHINE SULFATE 4 MG/ML INJ IV PUSH PRN (11:44)
[2017-05-26 12:00] VITALS: BP 124/77; PULSE 93; RESP 20; TEMP 97.6; O2SAT 98
--- NOTE | 2017-05-26 12:26 | PD.WCN.NOT ---
Wound Consult Description: Right plantar/medial foot Communicated with: Patient Patient mother Manda,RN Recommendation: Change wound VAC M-W-F to right foot with settings @125mmHg low continuous Place adaptic over all exposed tendons Bridge wounds to dorsal foot Additional Information: Patient seen on for wound VAC change to right foot as ordered per Dr Dan Neg Pressure Wound Therapy Wound Location Wound Location: Right plantar/medial foot Wound Description Length: ~7cm Width: ~7cm Depth: 1cm Wound bed appearance: ~80% Tendon ~20% Red granulating tissue Periwound appearance: Other (macerated) Settings Suction: 125 mmHg, Continuous Intensity: Low Other Information: Bridged, Windowpaned Foam type: Black (3 pieces used in all) Number of pieces: 2 (one piece used in plantar surface wound bed and 1 piece used to bridge wound to dorsal foot with dorsal lateral wound covered with black foam and trac pad placed) Additonal Information Patient seen on for wound VAC change to right foot. Machine history was found and appears to have been interrupted on Friday morning 05/24/17 @ ~ 0330. Patient states that he had to go to the bathroom and hit his foot on the bed trying to get up. Also mentions that he woke up in a wet bed and all of his sheets etc had to be changed. Franklin wrap and all granufoam and white foam was removed from patients right foot to reveal 2 full thickness wounds with maceration noted to periwounds. Steps taken to dry periwound as follows: Stoma powder applied to periwounds, then Cavilon skin prep spray was used to encrust the macerated areas noted. Wounds were then cleansed with NS and gauze and measured above. Oil emulsion aka adaptic was then applied to all exposed tendon within the wound beds. Black granufoam was cut and then applied into plantar surface wound bed and secured with VAC drape. Periwound from plantar wound to dorsal wound was covered in VAC drape to protect skin from black granufoam used to bridge plantar wound to dorsal foot wound and attach sensitrac pad. Wound on dorsal lateral surface measures approximately 4cm x 1.5cm x 0.5cm of ~50% red granulating tissue,~40% pink tissue, and ~10% tendon that was covered with oil emulsion prior to placing black granufoam over wound bed and securing with sensitrac pad. Wound VAC was turned on with settings @125mmHg low continuous suction without leaks noted. Gauze was used to cover VAC dressing and secured with FRANKLIN wrap (not for compression). Patient tolerated dressing change fairly needing breakthrough medication during cleansing. Next dressing change is scheduled for Friday05/28/17. Arely Bennett [facility] May 26, 2017 12:26
[2017-05-26 16:00] VITALS: BP 125/64; PULSE 91; RESP 18; TEMP 97.3; O2SAT 97
[2017-05-26 20:00] VITALS: BP 132/75; PULSE 92; RESP 17; TEMP 98.3; O2SAT 97
[2017-05-27] VITALS: BP 127/78; PULSE 89; RESP 17; TEMP 97.1; O2SAT 97
[2017-05-27] MEDS: MORPHINE SULFATE 4 MG/ML INJ IV PUSH PRN (00:04)
[2017-05-27] MEDS: ceFAZolin 2 GM PREMIX 50 ML IV SCH ×3 (02:36→17:53)
[2017-05-27] MEDS: ACETAMINOPHEN/HYDROcodone 325 MG/10 MG TAB PO PRN ×5 (02:36→23:07)
[2017-05-27 04:00] VITALS: BP 109/64; PULSE 93; RESP 17; TEMP 97; O2SAT 96
[2017-05-27] MEDS: CHLORHEXIDINE GLUCONATE 2 % 1 PACK (2 CLOTHS) TOP SCH (04:00)
--- NOTE | 2017-05-27 07:43 | HHI.PR ---
Subjective Remarks in no acute distress. had some pain to the right foot over night. otherwise no other complaints. no fever. Objective Vitals Vital Signs Date Time Temp Pulse Resp B/P (MAP) Pulse Ox O2 Delivery O2 Flow Rate FiO2 05/27/17 04:00 97.0 93 17 109/64 (79) 96 05/27/17 00:00 97.1 89 17 127/78 (94) 97 05/26/17 20:00 98.3 92 17 132/75 (94) 97 05/26/17 16:00 97.3 91 18 125/64 (84) 97 05/26/17 12:00 97.6 93 20 124/77 (93) 98 05/26/17 08:00 96.9 88 20 124/72 (89) 98 I/O 05/26/17 05/26/17 05/26/17 05/27/17 05/27/17 05/27/17 06:59 14:59 22:59 06:59 14:59 22:59 Intake Total 1010 ml 480 ml 480 ml Output Total 2050 ml 1750 ml 900 ml Balance -1040 ml -1270 ml -420 ml Intake Oral 960 ml 480 ml 480 ml IV Total 50 ml Output Urine Total 2050 ml 1750 ml 900 ml # Bowel Movements 1 Result Diagram: 05/25/1761205/25/17612 Imaging Last Impressions Chest X-Ray 05/15/17 0000 Signed Impressions: Service Date/Time: April 08:47 - CONCLUSION: 1.2 cm nodular density in lateral left midlung zone. Recommend chest CT without contrast to evaluate for pulmonary nodule. No other acute cardiopulmonary disease identified. Cyrus Sears MD Foot MRI 05/09/17 0000 Signed Impressions: Service Date/Time: Tuesday, May 09, 2017 15:29 - CONCLUSION: Abnormal head of the fifth metatarsal suggestive of edema and cortical enhancement associated with soft tissue swelling. Early osteomyelitis suspect. Jordan Tovar MD Head CT 05/08/17 0000 Signed Impressions: Service Date/Time: April 14:16 - CONCLUSION: 1. No acute intracranial abnormality is identified. Raghavendra Lim MD Foot X-Ray 05/08/17 0000 Signed Impressions: Service Date/Time: April 11:18 - CONCLUSION: 1. Soft tissue swelling lateral foot near the fifth MTP. No acute bony abnormality. No radiopaque foreign body. Francisco Grider MD Objective Remarks GENERAL: This is a well-nourished, well-developed patient, in no apparent distress. CARDIOVASCULAR: Regular rate and regular rhythm without murmurs, gallops, or rubs. RESPIRATORY: Clear to auscultation. Breath sounds equal bilaterally. No wheezes , rales, or rhonchi. GASTROINTESTINAL: Abdomen soft, non-tender, nondistended. Normal, active bowel sounds MUSCULOSKELETAL: right foot covered with clean dressing with wound vac in place NEURO: Alert & Oriented x4 to person, place, time, situation. Moves all ext x4 Procedures PROCEDURE 1. Right foot I&D procedure 2. Right fifth metatarsal bone biopsy. Medications and IVs Current Medications Sodium Chloride 1,000 ml @ 2,000 mls/hr Q30M ONCE IV Last administered on 05/08 10:54; Start 05/08/17 at 10:43; Stop 05/08/17 at 11:12; Status DC Sodium Chloride (NS Flush) 2 ml UNSCH PRN IVF FLUSH AFTER USING IV ACCESS; Start 05/08/17 at 10:45; Stop 05/09/17 at 11:57; Status DC Insulin Human Regular (NovoLIN R INJ) 10 units ONCE ONCE SQ Last administered on 05/08/17 11:39; Start 05/08/17 at 11:15; Stop 05/08/17 at 11:18; Status DC Piperacillin Sod/ Tazobactam Sod 100 ml @ 200 mls/hr ONCE ONCE IV Last administered on 05/08/17 11:40; Start 05/08/17 at 11:15; Stop 05/08/17 at 11:44 ; Status DC Vancomycin HCl 1000 mg/Sodium Chloride 250 ml @ 250 mls/hr ONCE ONCE IV Last administered on 05/08/17 12:48; Start 05/08/17 at 11:15; Stop 05/08/17 at 12:14 ; Status DC Sodium Chloride 1,000 ml @ 999 mls/hr BOLUS ONCE IV Last administered on 05/08 13:01; Start 05/08/17 at 12:00; Stop 05/08/17 at 13:00; Status DC Insulin Human Regular (NovoLIN R INJ) 10 units ONCE ONCE IV PUSH Last administered on 05/08/17 12:47; Start 05/08/17 at 12:30; Stop 05/08/17 at 12:31 ; Status DC Piperacillin Sod/ Tazobactam Sod 50 ml @ 100 mls/hr Q6H IV ; Start 05/08/17 at 13:00; Stop 05/08/17 at 13:15; Status DC Pharmacy Profile Note 0 ml @ 0 mls/hr UNSCH OTHER ; Start 05/08/17 at 12:45; Stop 05/12/17 at 10:21; Status DC Sodium Chloride (NS Flush) 2 ml UNSCH PRN IV FLUSH FLUSH AFTER USING IV ACCESS ; Start 05/08/17 at 12:45 Sodium Chloride (NS Flush) 2 ml BID IV FLUSH Last administered on 05/26/17 22: 41; Start 05/08/17 at 21:00 Acetaminophen (Tylenol) 650 mg Q6H PRN PO PAIN 1 TO 2 AND/OR FEVER >101F Last administered on 05/16/17 12:49; Start 05/08/17 at 13:00 Acetaminophen/ Hydrocodone Bitart (Opelika 5-325 Mg) 1 tab Q4H PRN PO PAIN SCALE 3 TO 5 Last administered on 05/14/17 19:28; Start 05/08/17 at 14:00 Morphine Sulfate (Morphine Inj) 2 mg Q2H PRN IV PUSH PAIN SCALE 6 TO 10 Last administered on 05/16/17 10:02; Start 05/08/17 at 12:45; Stop 05/16/17 at 10:05 ; Status DC Famotidine (Pepcid Inj) 10 mg Q12HR IV PUSH Last administered on 05/08/17 21: 39; Start 05/08/17 at 21:00; Stop 05/09/17 at 08:40; Status DC Ondansetron HCl (Zofran Inj) 4 mg Q6H PRN IV PUSH NAUSEA OR VOMITING Last administered on 05/23/17 13:38; Start 05/08/17 at 14:00 Albuterol Sulfate (Albuterol Neb) 2.5 mg Q2HR NEB PRN INH SOB/WHEEZING; Start 05/08/17 at 14:00 Heparin Sodium (Porcine) (Heparin Inj) 5,000 units Q12HR SQ Last administered on 05/26/17 22:41; Start 05/08/17 at 21:00; Status Future hold Miscellaneous Information 1 Q361D XX ; Start 05/08/17 at 12:45 Chlorhexidine Gluconate (Chlorhexidine 2% Cloth) Taper DAILY@04 TOP Last administered on 05/17/17 03:12; Start 05/09/17 at 04:00; Stop 05/05/18 at 03:59 Chlorhexidine Gluconate (Chlorhexidine 2% Cloth) 3 pack UNSCH PRN TOP HYGIENIC CARE; Start 05/08/17 at 12:45 Senna/Docusate Sodium (Fl[place]-Colace) 1 tab BID PO Last administered on 08:58; Start 05/08/17 at 21:00; Stop 05/12/17 at 10:42; Status DC Magnesium Hydroxide (Milk Of Magnesia Liq) 30 ml Q12H PRN PO MILD - MODERATE CONSTIPATION Last administered on 05/18/17 18:55; Start 05/08/17 at 14:00 Sennosides (Senokot) 17.2 mg Q12HR PRN PO MODERATE - SEVERE CONSTIPATION; Start 05/08/17 at 21:00; Stop 05/12/17 at 10:42; Status DC Bisacodyl (Dulcolax Supp) 10 mg DAILY PRN RECTAL SEVERE CONSITIPATION; Start at 14:00; Stop 05/12/17 at 10:42; Status DC Lactulose (Lactulose Liq) 30 ml DAILY PRN PO SEVERE CONSITIPATION; Start at 14:00; Stop 05/12/17 at 10:42; Status DC Sodium Chloride 1,000 ml @ 1,000 mls/hr Q1H IV ; Start 05/08/17 at 12:48; Stop 05/08/17 at 14:47; Status DC Dextrose/Sodium Chloride 1,000 ml @ 200 mls/hr Q5H IV Last administered on 08:19; Start 05/08/17 at 12:48; Stop 05/09/17 at 11:56; Status DC Insulin Human Regular 100 units/ Sodium Chloride 100 ml @ 1.38 mls/hr TITRATE IV Last administered on 05/08/17t 13:57; Start 05/08/17 at 14:00; Stop at 08:00; Status DC Potassium Chloride 100 ml @ 50 mls/hr Q2H PRN IV SEE LABEL COMMENTS; Start at 13:00; Stop 05/12/17 at 13:56; Status DC Potassium Chloride 100 ml @ 50 mls/hr Q2H PRN IV SEE LABEL COMMENTS Last administered on 05/09/17t 01:01; Start 05/08/17 at 13:00; Stop 05/12/17 at 13:56 ; Status DC Potassium Chloride 100 ml @ 50 mls/hr Q2H PRN IV SEE LABEL COMMENTS; Start at 13:00; Stop 05/12/17 at 13:56; Status DC Potassium Chloride 100 ml @ 50 mls/hr Q2H PRN IV SEE LABEL COMMENTS; Start at 13:00; Stop 05/12/17 at 13:56; Status DC Sodium Bicarbonate (Sodium Bicarbonate 8.4% Inj) 100 meq UNSCH PRN IV SEE LABEL COMMENTS; Start 05/08/17 at 13:00; Stop 05/12/17 at 13:56; Status DC Sodium Bicarbonate (Sodium Bicarbonate 8.4% Inj) 50 meq UNSCH PRN IV SEE LABEL COMMENTS; Start 05/08/17 at 13:00; Stop 05/12/17 at 13:56; Status DC Sodium Phosphate 15 mmol/Sodium Chloride 105 ml @ 25 mls/hr UNSCH PRN IV SEE LABEL COMMENTS; Start 05/08/17 at 13:00; Stop 05/12/17 at 13:56; Status DC Miscellaneous Information 1 Q361D XX ; Start 05/08/17 at 13:00; Stop 05/08/17 at 13:09; Status DC Chlorhexidine Gluconate (Chlorhexidine 2% Cloth) 3 pack Taper DAILY@04 TOP ; Start 05/09/17 at 04:00; Stop 05/09/17 at 04:00; Status DC Chlorhexidine Gluconate (Chlorhexidine 2% Cloth) 3 pack UNSCH PRN TOP HYGIENIC CARE; Start 05/08/17 at 13:00; Stop 05/08/17 at 13:09; Status DC Sodium Chloride 1,000 ml @ 999 mls/hr BOLUS ONCE IV Last administered on 05/08t 13:23; Start 05/08/17 at 13:00; Stop 05/08/17 at 14:00; Status DC Hydralazine HCl (Apresoline Inj) 10 mg Q1HR PRN IV PUSH SBP>170, DBP>90; Start 05/08/17 at 13:15 Nitroglycerin (Nitroglycerin 2% Oint) 2 inch Q6HR PRN TOPICAL SBP>170, DBP>90; Start 05/08/17 at 14:00 Vancomycin HCl 500 mg/Sodium Chloride 100 ml @ 200 mls/hr ONCE ONCE IV ; Start 05/08/17 at 15:00; Stop 05/08/17 at 15:29; Status DC Piperacillin Sod/ Tazobactam Sod 50 ml @ 100 mls/hr Q6H IV Last administered on 05/12/17t 10:12; Start 05/08/17 at 17:00; Stop 05/12/17 at 10:21; Status DC Magnesium Oxide (Mag-Ox) 800 mg UNSCH PRN PO For Magnesium 1.2 - 1.6 mg/dL; Start 05/08/17 at 21:45; Stop 05/12/17 at 13:58; Status DC Magnesium Sulfate 4 gm/Sodium Chloride 100 ml @ 50 mls/hr UNSCH PRN IV For Magnesium 0.9 - 1.1 mg/dL; Start 05/08/17 at 21:45; Stop 05/12/17 at 13:58; Status DC Magnesium Sulfate 2 gm/Sodium Chloride 100 ml @ 50 mls/hr UNSCH PRN IV For Magnesium 1.2 - 1.6 mg/dL; Start 05/08/17 at 21:45; Stop 05/12/17 at 13:58; Status DC Potassium Chloride 100 ml @ 50 mls/hr Q2H PRN IV For Potassium 2.8 - 3.2 mEq/L ; Start 05/08/17 at 21:45; Stop 05/12/17 at 13:58; Status DC Potassium Chloride 100 ml @ 50 mls/hr Q2H PRN IV For Potassium 3.3 - 3.5 mEq/L ; Start 05/08/17 at 21:45; Stop 05/12/17 at 13:58; Status DC Potassium Chloride 100 ml @ 50 mls/hr Q2H PRN IV For Potassium 2.8 - 3.2 mEq/L ; Start 05/08/17 at 21:45; Stop 05/12/17 at 13:58; Status DC Potassium Chloride 100 ml @ 25 mls/hr UNSCH PRN IV For Potassium 3.3 - 3.5 mEq /L; Start 05/08/17 at 21:45; Stop 05/12/17 at 13:58; Status DC Potassium Phosphate (K-Phos) 2,000 mg Q4H PRN PO For Phosphorus < 2.5 mg/dL; Start 05/08/17 at 21:45; Stop 05/12/17 at 13:58; Status DC Potassium Phosphate (K-Phos) 2,000 mg UNSCH PRN PO/TUBE SEE LABEL COMMENTS; Start 05/08/17 at 21:45; Stop 05/12/17 at 13:58; Status DC Potassium Phosphate 30 mmol/ Sodium Chloride 260 ml @ 42 mls/hr UNSCH PRN IV SEE LABEL COMMENTS Last administered on 05/08/17 22:25; Start 05/08/17 at 21:45 ; Stop 05/12/17 at 13:58; Status DC Sodium Phosphate 30 mmol/Sodium Chloride 250 ml @ 42 mls/hr UNSCH PRN IV For Phosphorus < 2.5 mg/dL; Start 05/08/17 at 21:45; Stop 05/12/17 at 13:58; Status DC Miscellaneous Information 1 ONCE ONCE .XX Last administered on 05/09/17 08:00 ; Start 05/09/17 at 08:00; Stop 05/09/17 at 08:01; Status DC Miscellaneous Information 1 ONCE ONCE .XX Last administered on 05/09/17 08:00 ; Start 05/09/17 at 08:00; Stop 05/09/17 at 08:01; Status DC Insulin Detemir (Levemir Inj) 10 units BID SQ Last administered on 05/22/17 22 :30; Start 05/09/17 at 09:00; Stop 05/23/17 at 07:39; Status DC Insulin Human Regular (NovoLIN R SUPPLEMENTAL SCALE) 1 ACHS SLIDING SCALE SQ Last administered on 05/09/17 08:00; Start 05/09/17 at 08:00; Stop 05/09/17 at 11:00; Status DC Dextrose (D50w (Vial) Inj) 50 ml UNSCH PRN IV PUSH HYPOGLYCEMIA-SEE COMMENTS; Start 05/09/17 at 08:00 Glucagon (Glucagon Inj) 1 mg UNSCH PRN OTHER HYPOGLYCEMIA-SEE COMMENTS; Start 05/09/17 at 08:00 Famotidine (Pepcid) 20 mg BID PO Last administered on 05/26/17 22:41; Start at 09:00 Insulin Human Regular (NovoLIN R SUPPLEMENTAL SCALE) 1 ACHS SLIDING SCALE SQ Last administered on 05/26/17 22:47; Start 05/09/17 at 12:00 Vancomycin HCl 1500 mg/Sodium Chloride 515 ml @ 257.5 mls/ hr Q24H IV Last administered on 05/11/17 18:01; Start 05/09/17 at 15:00; Stop 05/11/17 at 19:01 ; Status DC Miscellaneous Information SPECIFIC LAB TO BE .. ONCE ONCE .XX ; Start 05/11 at 14:45; Stop 05/11/17 at 14:46; Status DC Gadodiamide (Omniscan Pf Inj) 14 ml STK-MED ONCE IV PUSH Last administered on 16:02; Start 05/09/17 at 16:02; Stop 05/09/17 at 16:03; Status DC Bacitracin (Bacitracin Oint Packet) 0.9 gm DAILY TOPICAL Last administered on 08:22; Start 05/10/17 at 09:00; Stop 05/13/17 at 08:43; Status DC Bacitracin (Baciguent Oint) 1 applic DAILY TOPICAL Last administered on 09:21; Start 05/11/17 at 09:00 Vancomycin HCl 1100 mg/Sodium Chloride 261 ml @ 250 mls/hr Q12H IV Last administered on 05/12/17 09:05; Start 05/12/17 at 10:00; Stop 05/12/17 at 10:21 ; Status DC Miscellaneous Information SPECIFIC LAB TO BE DRAWN:VANCO TROUGH DATE TO BE ONCE ONCE .XX ; Start 05/12/17 at 21:45; Stop 05/12/17 at 21:45; Status DC Cefazolin Sodium/ Dextrose 50 ml @ 100 mls/hr Q8H IV Last administered on 02:36; Start 05/12/17 at 11:00; Stop 06/23/17 at 10:59 Insulin Human Regular (NovoLIN R INJ) 10 units ONCE ONCE IV PUSH Last administered on 05/14/17 04:39; Start 05/14/17 at 04:30; Stop 05/14/17 at 04:31 ; Status DC Piperacillin Sod/ Tazobactam Sod 50 ml @ 100 mls/hr Q6H IV Last administered on 05/21/17 15:56; Start 05/15/17 at 17:00; Stop 05/21/17 at 18:05; Status DC Dextrose (D50w (Syr) Inj) 50 ml STK-MED ONCE .ROUTE Last administered on 16:36; Start 05/15/17 at 16:34; Stop 05/15/17 at 16:35; Status DC Lidocaine HCl (Xylocaine 2% Inj) 50 ml STK-MED ONCE .ROUTE Last administered on 05/15/17 19:57; Start 05/15/17 at 17:14; Stop 05/15/17 at 17:15; Status DC Bupivacaine HCl (Marcaine Pf 0.25% Inj) 30 ml STK-MED ONCE .ROUTE Last administered on 05/15/17 19:57; Start 05/15/17 at 17:17; Stop 05/15/17 at 17:18 ; Status DC Neomycin/Polymyxin (Neosporin G.u. Irr) 2 ml ONCE ONCE IRRIGATION Last administered on 05/15/17 20:01; Start 05/15/17 at 20:01; Stop 05/15/17 at 20:03 ; Status DC Acetaminophen 100 ml @ As Directed STK-MED ONCE IV ; Start 05/15/17 at 20:06; Stop 05/15/17 at 20:07; Status DC Miscellaneous Information ALL NURSING DEPARTME... UNSCH PRN .XX SEE LABEL COMMENTS; Start 05/15/17 at 20:31; Stop 05/16/17 at 20:30; Status DC Acetaminophen/ Hydrocodone Bitart (Opelika 10-325 Mg) 1 tab Q4H PRN PO Pain>5 Last administered on 05/27/17 02:36; Start 05/16/17 at 10:15 Morphine Sulfate (Morphine Inj) 2 mg Q6H PRN IV PUSH BREAKTHROUGH PAIN Last administered on 05/27/17 00:04; Start 05/16/17 at 10:15 Diphenhydramine HCl (Benadryl Inj) 50 mg STK-MED ONCE .ROUTE Last administered on 05/16/17 17:04; Start 05/16/17 at 17:01; Stop 05/16/17 at 17:02; Status DC Miscellaneous Information ALL NURSING DEPARTME... UNSCH PRN .XX SEE LABEL COMMENTS; Start 05/17/17 at 08:53; Stop 05/18/17 at 08:52; Status DC Insulin Detemir (Levemir Inj) 12 units BID SQ Last administered on 05/25/17 21 :53; Start 05/23/17 at 09:00; Stop 05/26/17 at 08:06; Status DC Diphenhydramine HCl (Benadryl) 25 mg Q4H PRN PO pruritis Last administered on 05/25/17 02:19; Start 05/24/17 at 22:00 Insulin Detemir (Levemir Inj) 14 units BID SQ Last administered on 05/26/17 22 :41; Start 05/26/17 at 09:00 A/P Problem List: (1) Normocytic anemia ICD Code: D64.9 - Anemia, unspecified (2) Leukocytosis ICD Code: D72.829 - Elevated white blood cell count, unspecified (3) Diabetic foot ulcer associated with type 2 diabetes mellitus, with fat layer exposed ICD Code: E11.621 - Type 2 diabetes mellitus with foot ulcer; L97.502 - Non- pressure chronic ulcer of other part of unspecified foot with fat layer exposed (4) Acute kidney injury ICD Code: N17.9 - Acute kidney failure, unspecified (5) Hyperosmolar non-ketotic state in patient with type 2 diabetes mellitus ICD Code: E11.01 - Type 2 diabetes mellitus with hyperosmolarity with coma (6) Dehydration with hyponatremia ICD Code: E87.1 - Hypo-osmolality and hyponatremia (7) Toxic metabolic encephalopathy ICD Code: G92 - Toxic encephalopathy (8) Septic shock ICD Code: A41.9 - Sepsis, unspecified organism; R65.21 - Severe sepsis with septic shock (9) Severe sepsis ICD Code: A41.9 - Sepsis, unspecified organism; R65.20 - Severe sepsis without septic shock Assessment and Plan A/P Septicemia with MSSA Right diabetic foot infection/cellulitis Continue Ancef Appreciate input from ID Repeat culture NTD Right foot abscess with ulcer stage III with cellulitis Appreciate input from podiatry - s/p wound VAC placement Status post Right foot I and D 05/15/17 and 05/17/17 . Right metatarsal foot biopsy ; negative for osteomyelitis. Continue Ancef for four [id number]. podiatry f/u appreciated; cleared for discharge with outpatient f/u. continue pain control. Hyperosmolar nonketotic state in patient with type 2 diabetes-resolved but with not-optimally controlled hyperglycemia increased Levemir to 14 units twice a day and continue with insulin sliding scale continue to monitor and adjust the regimen as needed. A1c 15.5, patient will need outpatient follow-up with endocrinology lung nodule- f/u as outpatient with CT chest- this has been d/w the patient. DVT prophylaxis with subq Heparin Discharge Planning d/w the patient today; he says that his is moving out today and he doesn't have a place to go. he likely needs to stay in house for IV antibiotic therapy and wound vac management. previously d/w the case management and . Problem Qualifiers (1) Leukocytosis: Qualified Codes: D72.829 - Elevated white blood cell count, unspecified (2) Diabetic foot ulcer associated with type 2 diabetes mellitus, with fat layer exposed: Qualified Codes: E11.621 - Type 2 diabetes mellitus with foot ulcer; L97.512 - Non-pressure chronic ulcer of other part of right foot with fat layer exposed Francie Chaves MD May 27, 2017 07:43
[2017-05-27 08:00] VITALS: BP 121/67; PULSE 86; RESP 18; TEMP 96.9; O2SAT 98
[2017-05-27] MEDS: FAMOTIDINE 20 MG TAB PO SCH ×2 (08:51→20:57)
[2017-05-27] MEDS: HEPARIN SODIUM - SQ 10,000 UNITS/ML VIAL SQ SCH ×2 (08:51→20:58)
[2017-05-27] MEDS: INSULIN DETEMIR 100 UNITS/ML VIAL SQ SCH ×2 (08:52→20:57)
[2017-05-27] MEDS: SODIUM CHLORIDE 0.9% FLUSH 10 ML FLUSH IV FLUSH SCH ×2 (08:56→20:58)
[2017-05-27] MEDS: INSULIN NovoLIN REGULAR SUPPLEMENTAL SCALE SQ SCH ×4 (08:56→21:05)
[2017-05-27] MEDS: BACITRACIN TOP OINT 15 GM TUBE TOPICAL SCH (09:00)
[2017-05-27 12:00] VITALS: BP 126/70; PULSE 93; RESP 18; TEMP 96.3; O2SAT 97
--- NOTE | 2017-05-27 14:14 | HHI.IDPN ---
Subjective Subjective Remarks doing ok co some of R foot swelling afebrile Antibiotics cefazoline Past Medical History uncontrolled DM Allergies: Coded Allergies: No Known Allergies (Unverified , 05/08/17) Objective . Vital Signs Date Time Temp Pulse Resp B/P (MAP) Pulse Ox O2 Delivery O2 Flow Rate FiO2 05/27/17 12:00 96.3 93 18 126/70 (88) 97 05/27/17 10:10 17 05/27/17 08:00 96.9 86 18 121/67 (85) 98 05/27/17 04:00 97.0 93 17 109/64 (79) 96 05/27/17 00:00 97.1 89 17 127/78 (94) 97 05/26/17 20:00 98.3 92 17 132/75 (94) 97 05/26/17 16:00 97.3 91 18 125/64 (84) 97 Imaging Last Impressions Chest X-Ray 05/15/17 0000 Signed Impressions: Service Date/Time: April 08:47 - CONCLUSION: 1.2 cm nodular density in lateral left midlung zone. Recommend chest CT without contrast to evaluate for pulmonary nodule. No other acute cardiopulmonary disease identified. Cyrus Sears MD Foot MRI 05/09/17 0000 Signed Impressions: Service Date/Time: Tuesday, May 09, 2017 15:29 - CONCLUSION: Abnormal head of the fifth metatarsal suggestive of edema and cortical enhancement associated with soft tissue swelling. Early osteomyelitis suspect. Jordan Tovar MD Head CT 05/08/17 0000 Signed Impressions: Service Date/Time: April 14:16 - CONCLUSION: 1. No acute intracranial abnormality is identified. Raghavendra Lim MD Foot X-Ray 05/08/17 0000 Signed Impressions: Service Date/Time: April 11:18 - CONCLUSION: 1. Soft tissue swelling lateral foot near the fifth MTP. No acute bony abnormality. No radiopaque foreign body. Francisco Grider MD Physical Exam ONSTITUTIONAL/GENERAL: This is a thin ill appearing middle aged patient, in no apparent distress. TUBES/LINES/DRAINS: SKIN: No jaundice, rashes, or lesions. CARDIOVASCULAR: Regular rate and rhythm without murmurs, gallops, or rubs. No JVD. Peripheral pulses symmetric. Good pedal pulses perifery appears well perfused RESPIRATORY/CHEST: Symmetric, unlabored respirations. Clear to auscultation. Breath sounds equal bilaterally. No wheezes, rales, or rhonchi. GASTROINTESTINAL: Abdomen soft, non-tender, nondistended. Bowel sounds present. 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
--- NOTE | 2017-05-27 14:16 | HHI.FF ---
Infusion Therapy Location of Infusion Therapy: [facility] Infusion Therapy Order Patient Information Patient Weight 68.2 kg Diagnosis: Diagnosis DFI Coded Allergies: No Known Allergies (Unverified , 05/08/17) Administer Medication Ceftriaxone 2 grams IV q 24 hours Start Treatment: May 27, 2017 Stop Treatment: Jun 14, 2017 Additional Information Venous access: PICC Line Additional Instructions [x] Peripheral flush and dressing changes per protocol [x] Implanted port and central distribution lineman: * Implanted port: 10 ml Normal Saline followed by 5 ml Heparin 100 units/ml Heparin flush after each use and monthly to maintain. [] May leave port accessed during therapy. [] May leave peripheral site accessed for duration of therapy. [x] If patient has SOB or respiratory distress, check oxygen saturation. If less than 90% or clinical signs of respiratory distress, administer oxygen at 2 L/min. via nasal cannula and notify physician. [x] Anaphylaxis/Reaction orders: * Stop infusion. * Keep IV line open with saline flush. * Notify physician. * Monitor vital signs every 15 minutes until symptoms resolve. * Check Oxygen saturation; Oxygen at 2 L/min. via nasal cannula if less than 90% or clinical signs of respiratory distress. * Administer diphenhydramine (Benadryl) 25 mg IV STAT, (unless patient has received as pre-med). May repeat once, if necessary. * Solu-Cortef 250 mg IVP over 30-60 seconds, use 100 mg vials for each dissolution. * Epinephrine (1mg/1 ml) 0.3 mg subcutaneously or IVP now with any signs of respiratory distress. * Check with physician for new additional pre-med orders if patient is re- challenged or re-treated. [x] May remove PICC line when treatment complete, after confirming with Physician. [x] If the patient is admitted to the hospital, the ED, or transferred via [facility] , complete transfer form including medication reconciliation order sheet. Laboratory Tests Weekly Labs: CBC w/diff, Creatinine, LFT's (Hepatic function test) Marla Pritchard MD May 27, 2017 14:16
[2017-05-27 16:00] VITALS: BP 128/82; PULSE 102; RESP 18; TEMP 97.9; O2SAT 95
[2017-05-27 20:00] VITALS: BP 139/78; PULSE 92; RESP 18; TEMP 97.8; O2SAT 96
[2017-05-28] VITALS: BP 132/75; PULSE 96; RESP 17; TEMP 97.8; O2SAT 95
[2017-05-28] MEDS: ACETAMINOPHEN/HYDROcodone 325 MG/10 MG TAB PO PRN ×5 (03:05→21:45)
[2017-05-28] MEDS: ceFAZolin 2 GM PREMIX 50 ML IV SCH ×3 (03:05→21:41)
[2017-05-28] MEDS: CHLORHEXIDINE GLUCONATE 2 % 1 PACK (2 CLOTHS) TOP SCH (03:09)
[2017-05-28 04:00] VITALS: BP 124/65; PULSE 86; RESP 18; TEMP 97.6; O2SAT 97
[2017-05-28 07:50] VITALS: BP 133/77; PULSE 86; RESP 20; TEMP 97.8; O2SAT 97
--- NOTE | 2017-05-28 08:19 | HHI.PR ---
Subjective Remarks in no acute distress. pain is controlled. no fever. no new complaints. Objective Vitals Vital Signs Date Time Temp Pulse Resp B/P (MAP) Pulse Ox O2 Delivery O2 Flow Rate FiO2 05/28/17 04:05 18 05/28/17 04:00 97.6 86 18 124/65 (84) 97 05/28/17 00:00 97.8 96 17 132/75 (94) 95 05/27/17 20:00 97.8 92 18 139/78 (98) 96 05/27/17 16:00 97.9 102 18 128/82 (97) 95 05/27/17 12:00 96.3 93 18 126/70 (88) 97 I/O 05/27/17 05/27/17 05/27/17 05/28/17 05/28/17 05/28/17 07:00 15:00 23:00 07:00 15:00 23:00 Intake Total 480 ml 1080 ml 240 ml 480 ml Output Total 900 ml 500 ml 800 ml 950 ml Balance -420 ml 580 ml -560 ml -470 ml Intake Oral 480 ml 1080 ml 240 ml 480 ml Output Urine Total 900 ml 500 ml 800 ml 950 ml Result Diagram: 05/25/17 0613 05/25/17 0613 Imaging Last Impressions Chest X-Ray 05/15/17 0000 Signed Impressions: Service Date/Time: April 08:47 - CONCLUSION: 1.2 cm nodular density in lateral left midlung zone. Recommend chest CT without contrast to evaluate for pulmonary nodule. No other acute cardiopulmonary disease identified. Cyrus Sears MD Foot MRI 05/09/17 0000 Signed Impressions: Service Date/Time: Tuesday, May 09, 2017 15:29 - CONCLUSION: Abnormal head of the fifth metatarsal suggestive of edema and cortical enhancement associated with soft tissue swelling. Early osteomyelitis suspect. Jordan Tovar MD Head CT 05/08/17 0000 Signed Impressions: Service Date/Time: April 14:16 - CONCLUSION: 1. No acute intracranial abnormality is identified. Raghavendra Lim MD Foot X-Ray 05/08/17 0000 Signed Impressions: Service Date/Time: April 11:18 - CONCLUSION: 1. Soft tissue swelling lateral foot near the fifth MTP. No acute bony abnormality. No radiopaque foreign body. Francisco Grider MD Objective Remarks GENERAL: This is a well-nourished, well-developed patient, in no apparent distress. CARDIOVASCULAR: Regular rate and regular rhythm without murmurs, gallops, or rubs. RESPIRATORY: Clear to auscultation. Breath sounds equal bilaterally. No wheezes , rales, or rhonchi. GASTROINTESTINAL: Abdomen soft, non-tender, nondistended. Normal, active bowel sounds MUSCULOSKELETAL: right foot covered with clean dressing with wound vac in place NEURO: Alert & Oriented x4 to person, place, time, situation. Moves all ext x4 Procedures PROCEDURE 1. Right foot I&D procedure 2. Right fifth metatarsal bone biopsy. Medications and IVs Current Medications Sodium Chloride 1,000 ml @ 2,000 mls/hr Q30M ONCE IV Last administered on 05/08 10:54; Start 05/08/17 at 10:43; Stop 05/08/17 at 11:12; Status DC Sodium Chloride (NS Flush) 2 ml UNSCH PRN IVF FLUSH AFTER USING IV ACCESS; Start 05/08/17 at 10:45; Stop 05/09/17 at 11:57; Status DC Insulin Human Regular (NovoLIN R INJ) 10 units ONCE ONCE SQ Last administered on 05/08/17 11:39; Start 05/08/17 at 11:15; Stop 05/08/17 at 11:18; Status DC Piperacillin Sod/ Tazobactam Sod 100 ml @ 200 mls/hr ONCE ONCE IV Last administered on 05/08/17 11:40; Start 05/08/17 at 11:15; Stop 05/08/17 at 11:44 ; Status DC Vancomycin HCl 1000 mg/Sodium Chloride 250 ml @ 250 mls/hr ONCE ONCE IV Last administered on 05/08/17 12:48; Start 05/08/17 at 11:15; Stop 05/08/17 at 12:14 ; Status DC Sodium Chloride 1,000 ml @ 999 mls/hr BOLUS ONCE IV Last administered on 05/08 13:01; Start 05/08/17 at 12:00; Stop 05/08/17 at 13:00; Status DC Insulin Human Regular (NovoLIN R INJ) 10 units ONCE ONCE IV PUSH Last administered on 05/08/17 12:47; Start 05/08/17 at 12:30; Stop 05/08/17 at 12:31 ; Status DC Piperacillin Sod/ Tazobactam Sod 50 ml @ 100 mls/hr Q6H IV ; Start 05/08/17 at 13:00; Stop 05/08/17 at 13:15; Status DC Pharmacy Profile Note 0 ml @ 0 mls/hr UNSCH OTHER ; Start 05/08/17 at 12:45; Stop 05/12/17 at 10:21; Status DC Sodium Chloride (NS Flush) 2 ml UNSCH PRN IV FLUSH FLUSH AFTER USING IV ACCESS ; Start 05/08/17 at 12:45 Sodium Chloride (NS Flush) 2 ml BID IV FLUSH Last administered on 05/27/17 20 :58; Start 05/08/17 at 21:00 Acetaminophen (Tylenol) 650 mg Q6H PRN PO PAIN 1 TO 2 AND/OR FEVER >101F Last administered on 05/16/17 12:49; Start 05/08/17 at 13:00 Acetaminophen/ Hydrocodone Bitart ([place] 5-325 Mg) 1 tab Q4H PRN PO PAIN SCALE 3 TO 5 Last administered on 05/14/17 19:28; Start 05/08/17 at 14:00 Morphine Sulfate (Morphine Inj) 2 mg Q2H PRN IV PUSH PAIN SCALE 6 TO 10 Last administered on 05/16/17 10:02; Start 05/08/17 at 12:45; Stop 05/16/17 at 10:05 ; Status DC Famotidine (Pepcid Inj) 10 mg Q12HR IV PUSH Last administered on 05/08/17 21: 39; Start 05/08/17 at 21:00; Stop 05/09/17 at 08:40; Status DC Ondansetron HCl (Zofran Inj) 4 mg Q6H PRN IV PUSH NAUSEA OR VOMITING Last administered on 05/23/17 13:38; Start 05/08/17 at 14:00 Albuterol Sulfate (Albuterol Neb) 2.5 mg Q2HR NEB PRN INH SOB/WHEEZING; Start 05/08/17 at 14:00 Heparin Sodium (Porcine) (Heparin Inj) 5,000 units Q12HR SQ Last administered on 05/27/17 20:58; Start 05/08/17 at 21:00; Status Future hold Miscellaneous Information 1 Q361D XX ; Start 05/08/17 at 12:45 Chlorhexidine Gluconate (Chlorhexidine 2% Cloth) 3 pack Taper DAILY@04 TOP Last administered on 05/17/17 03:12; Start 05/09/17 at 04:00; Stop 05/05/18 at 03:59 Chlorhexidine Gluconate (Chlorhexidine 2% Cloth) 3 pack UNSCH PRN TOP HYGIENIC CARE; Start 05/08/17 at 12:45 Senna/Docusate Sodium ([place]-Colace) 1 tab BID PO Last administered on 08:58; Start 05/08/17 at 21:00; Stop 05/12/17 at 10:42; Status DC Magnesium Hydroxide (Milk Of Magnesia Liq) 30 ml Q12H PRN PO MILD - MODERATE CONSTIPATION Last administered on 05/18/17 18:55; Start 05/08/17 at 14:00 Sennosides (Senokot) 17.2 mg Q12HR PRN PO MODERATE - SEVERE CONSTIPATION; Start 05/08/17 at 21:00; Stop 05/12/17 at 10:42; Status DC Bisacodyl (Dulcolax Supp) 10 mg DAILY PRN RECTAL SEVERE CONSITIPATION; Start at 14:00; Stop 05/12/17 at 10:42; Status DC Lactulose (Lactulose Liq) 30 ml DAILY PRN PO SEVERE CONSITIPATION; Start at 14:00; Stop 05/12/17 at 10:42; Status DC Sodium Chloride 1,000 ml @ 1,000 mls/hr Q1H IV ; Start 05/08/17 at 12:48; Stop 05/08/17 at 14:47; Status DC Dextrose/Sodium Chloride 1,000 ml @ 200 mls/hr Q5H IV Last administered on 08:19; Start 05/08/17 at 12:48; Stop 05/09/17 at 11:56; Status DC Insulin Human Regular 100 units/ Sodium Chloride 100 ml @ 1.38 mls/hr TITRATE IV Last administered on 05/08/17 13:57; Start 05/08/17 at 14:00; Stop at 08:00; Status DC Potassium Chloride 100 ml @ 50 mls/hr Q2H PRN IV SEE LABEL COMMENTS; Start at 13:00; Stop 05/12/17 at 13:56; Status DC Potassium Chloride 100 ml @ 50 mls/hr Q2H PRN IV SEE LABEL COMMENTS Last administered on 05/09/17t 01:01; Start 05/08/17 at 13:00; Stop 05/12/17 at 13:56 ; Status DC Potassium Chloride 100 ml @ 50 mls/hr Q2H PRN IV SEE LABEL COMMENTS; Start at 13:00; Stop 05/12/17 at 13:56; Status DC Potassium Chloride 100 ml @ 50 mls/hr Q2H PRN IV SEE LABEL COMMENTS; Start at 13:00; Stop 05/12/17 at 13:56; Status DC Sodium Bicarbonate (Sodium Bicarbonate 8.4% Inj) 100 meq UNSCH PRN IV SEE LABEL COMMENTS; Start 05/08/17 at 13:00; Stop 05/12/17 at 13:56; Status DC Sodium Bicarbonate (Sodium Bicarbonate 8.4% Inj) 50 meq UNSCH PRN IV SEE LABEL COMMENTS; Start 05/08/17 at 13:00; Stop 05/12/17 at 13:56; Status DC Sodium Phosphate 15 mmol/Sodium Chloride 105 ml @ 25 mls/hr UNSCH PRN IV SEE LABEL COMMENTS; Start 05/08/17 at 13:00; Stop 05/12/17 at 13:56; Status DC Miscellaneous Information 1 Q361D XX ; Start 05/08/17 at 13:00; Stop 05/08/17 at 13:09; Status DC Chlorhexidine Gluconate (Chlorhexidine 2% Cloth) 3 pack Taper DAILY@04 TOP ; Start 05/09/17 at 04:00; Stop 05/09/17 at 04:00; Status DC Chlorhexidine Gluconate (Chlorhexidine 2% Cloth) 3 pack UNSCH PRN TOP HYGIENIC CARE; Start 05/08/17 at 13:00; Stop 05/08/17 at 13:09; Status DC Sodium Chloride 1,000 ml @ 999 mls/hr BOLUS ONCE IV Last administered on 05/08t 13:23; Start 05/08/17 at 13:00; Stop 05/08/17 at 14:00; Status DC Hydralazine HCl (Apresoline Inj) 10 mg Q1HR PRN IV PUSH SBP>170, DBP>90; Start 05/08/17 at 13:15 Nitroglycerin (Nitroglycerin 2% Oint) 2 inch Q6HR PRN TOPICAL SBP>170, DBP>90; Start 05/08/17 at 14:00 Vancomycin HCl 500 mg/Sodium Chloride 100 ml @ 200 mls/hr ONCE ONCE IV ; Start 05/08/17 at 15:00; Stop 05/08/17 at 15:29; Status DC Piperacillin Sod/ Tazobactam Sod 50 ml @ 100 mls/hr Q6H IV Last administered on 05/12/17t 10:12; Start 05/08/17 at 17:00; Stop 05/12/17 at 10:21; Status DC Magnesium Oxide (Mag-Ox) 800 mg UNSCH PRN PO For Magnesium 1.2 - 1.6 mg/dL; Start 05/08/17 at 21:45; Stop 05/12/17 at 13:58; Status DC Magnesium Sulfate 4 gm/Sodium Chloride 100 ml @ 50 mls/hr UNSCH PRN IV For Magnesium 0.9 - 1.1 mg/dL; Start 05/08/17 at 21:45; Stop 05/12/17 at 13:58; Status DC Magnesium Sulfate 2 gm/Sodium Chloride 100 ml @ 50 mls/hr UNSCH PRN IV For Magnesium 1.2 - 1.6 mg/dL; Start 05/08/17 at 21:45; Stop 05/12/17 at 13:58; Status DC Potassium Chloride 100 ml @ 50 mls/hr Q2H PRN IV For Potassium 2.8 - 3.2 mEq/L ; Start 05/08/17 at 21:45; Stop 05/12/17 at 13:58; Status DC Potassium Chloride 100 ml @ 50 mls/hr Q2H PRN IV For Potassium 3.3 - 3.5 mEq/L ; Start 05/08/17 at 21:45; Stop 05/12/17 at 13:58; Status DC Potassium Chloride 100 ml @ 50 mls/hr Q2H PRN IV For Potassium 2.8 - 3.2 mEq/L ; Start 05/08/17 at 21:45; Stop 05/12/17 at 13:58; Status DC Potassium Chloride 100 ml @ 25 mls/hr UNSCH PRN IV For Potassium 3.3 - 3.5 mEq /L; Start 05/08/17 at 21:45; Stop 05/12/17 at 13:58; Status DC Potassium Phosphate (K-Phos) 2,000 mg Q4H PRN PO For Phosphorus < 2.5 mg/dL; Start 05/08/17 at 21:45; Stop 05/12/17 at 13:58; Status DC Potassium Phosphate (K-Phos) 2,000 mg UNSCH PRN PO/TUBE SEE LABEL COMMENTS; Start 05/08/17 at 21:45; Stop 05/12/17 at 13:58; Status DC Potassium Phosphate 30 mmol/ Sodium Chloride 260 ml @ 42 mls/hr UNSCH PRN IV SEE LABEL COMMENTS Last administered on 05/08/17 22:25; Start 05/08/17 at 21:45 ; Stop 05/12/17 at 13:58; Status DC Sodium Phosphate 30 mmol/Sodium Chloride 250 ml @ 42 mls/hr UNSCH PRN IV For Phosphorus < 2.5 mg/dL; Start 05/08/17 at 21:45; Stop 05/12/17 at 13:58; Status DC Miscellaneous Information 1 ONCE ONCE .XX Last administered on 05/09/17 08:00 ; Start 05/09/17 at 08:00; Stop 05/09/17 at 08:01; Status DC Miscellaneous Information 1 ONCE ONCE .XX Last administered on 05/09/17 08:00 ; Start 05/09/17 at 08:00; Stop 05/09/17 at 08:01; Status DC Insulin Detemir (Levemir Inj) 10 units BID SQ Last administered on 05/22/17 22 :30; Start 05/09/17 at 09:00; Stop 05/23/17 at 07:39; Status DC Insulin Human Regular (NovoLIN R SUPPLEMENTAL SCALE) 1 ACHS SLIDING SCALE SQ Last administered on 05/09/17 08:00; Start 05/09/17 at 08:00; Stop 05/09/17 at 11:00; Status DC Dextrose (D50w (Vial) Inj) 50 ml UNSCH PRN IV PUSH HYPOGLYCEMIA-SEE COMMENTS; Start 05/09/17 at 08:00 Glucagon (Glucagon Inj) 1 mg UNSCH PRN OTHER HYPOGLYCEMIA-SEE COMMENTS; Start 05/09/17 at 08:00 Famotidine (Pepcid) 20 mg BID PO Last administered on 05/27/17 20:57; Start 05/09/17 at 09:00 Insulin Human Regular (NovoLIN R SUPPLEMENTAL SCALE) 1 ACHS SLIDING SCALE SQ Last administered on 05/27/17 21:05; Start 05/09/17 at 12:00 Vancomycin HCl 1500 mg/Sodium Chloride 515 ml @ 257.5 mls/ hr Q24H IV Last administered on 05/11/17 18:01; Start 05/09/17 at 15:00; Stop 05/11/17 at 19:01 ; Status DC Miscellaneous Information SPECIFIC LAB TO BE ... ONCE ONCE .XX ; Start 05/11 at 14:45; Stop 05/11/17 at 14:46; Status DC Gadodiamide (Omniscan Pf Inj) 14 ml STK-MED ONCE IV PUSH Last administered on 16:02; Start 05/09/17 at 16:02; Stop 05/09/17 at 16:03; Status DC Bacitracin (Bacitracin Oint Packet) 0.9 gm DAILY TOPICAL Last administered on 08:22; Start 05/10/17 at 09:00; Stop 05/13/17 at 08:43; Status DC Bacitracin (Baciguent Oint) 1 applic DAILY TOPICAL Last administered on 09:21; Start 05/11/17 at 09:00 Vancomycin HCl 1100 mg/Sodium Chloride 261 ml @ 250 mls/hr Q12H IV Last administered on 05/12/17 09:05; Start 05/12/17 at 10:00; Stop 05/12/17 at 10:21 ; Status DC Miscellaneous Information SPECIFIC LAB TO BE DRAWN:VANCO TROUGH DATE TO BE ONCE ONCE .XX ; Start 05/12/17 at 21:45; Stop 05/12/17 at 21:45; Status DC Cefazolin Sodium/ Dextrose 50 ml @ 100 mls/hr Q8H IV Last administered on 03:05; Start 05/12/17 at 11:00; Stop 06/23/17 at 10:59 Insulin Human Regular (NovoLIN R INJ) 10 units ONCE ONCE IV PUSH Last administered on 05/14/17 04:39; Start 05/14/17 at 04:30; Stop 05/14/17 at 04:31 ; Status DC Piperacillin Sod/ Tazobactam Sod 50 ml @ 100 mls/hr Q6H IV Last administered on 05/21/17 15:56; Start 05/15/17 at 17:00; Stop 05/21/17 at 18:05; Status DC Dextrose (D50w (Syr) Inj) 50 ml STK-MED ONCE .ROUTE Last administered on 16:36; Start 05/15/17 at 16:34; Stop 05/15/17 at 16:35; Status DC Lidocaine HCl (Xylocaine 2% Inj) 50 ml STK-MED ONCE .ROUTE Last administered on 05/15/17 19:57; Start 05/15/17 at 17:14; Stop 05/15/17 at 17:15; Status DC Bupivacaine HCl (Marcaine Pf 0.25% Inj) 30 ml STK-MED ONCE .ROUTE Last administered on 05/15/17 19:57; Start 05/15/17 at 17:17; Stop 05/15/17 at 17:18 ; Status DC Neomycin/Polymyxin (Neosporin G.u. Irr) 2 ml ONCE ONCE IRRIGATION Last administered on 05/15/17 20:01; Start 05/15/17 at 20:01; Stop 05/15/17 at 20:03 ; Status DC Acetaminophen 100 ml @ As Directed STK-MED ONCE IV ; Start 05/15/17 at 20:06; Stop 05/15/17 at 20:07; Status DC Miscellaneous Information ALL NURSING DEPARTME... UNSCH PRN .XX SEE LABEL COMMENTS; Start 05/15/17 at 20:31; Stop 05/16/17 at 20:30; Status DC Acetaminophen/ Hydrocodone Bitart ([place] 10-325 Mg) 1 tab Q4H PRN PO Pain>5 Last administered on 05/28/17 07:17; Start 05/16/17 at 10:15 Morphine Sulfate (Morphine Inj) 2 mg Q6H PRN IV PUSH BREAKTHROUGH PAIN Last administered on 05/27/17 00:04; Start 05/16/17 at 10:15 Diphenhydramine HCl (Benadryl Inj) 50 mg STK-MED ONCE .ROUTE Last administered on 05/16/17 17:04; Start 05/16/17 at 17:01; Stop 05/16/17 at 17:02; Status DC Miscellaneous Information ALL NURSING DEPARTME... UNSCH PRN .XX SEE LABEL COMMENTS; Start 05/17/17 at 08:53; Stop 05/18/17 at 08:52; Status DC Insulin Detemir (Levemir Inj) 12 units BID SQ Last administered on 05/25/17 21 :53; Start 05/23/17 at 09:00; Stop 05/26/17 at 08:06; Status DC Diphenhydramine HCl (Benadryl) 25 mg Q4H PRN PO pruritis Last administered on 05/25/17 02:19; Start 05/24/17 at 22:00 Insulin Detemir (Levemir Inj) 14 units BID SQ Last administered on 05/27/17 20:57; Start 05/26/17 at 09:00 A/P Problem List: (1) Normocytic anemia ICD Code: D64.9 - Anemia, unspecified (2) Leukocytosis ICD Code: D72.829 - Elevated white blood cell count, unspecified (3) Diabetic foot ulcer associated with type 2 diabetes mellitus, with fat layer exposed ICD Code: E11.621 - Type 2 diabetes mellitus with foot ulcer; L97.502 - Non- pressure chronic ulcer of other part of unspecified foot with fat layer exposed (4) Acute kidney injury ICD Code: N17.9 - Acute kidney failure, unspecified (5) Hyperosmolar non-ketotic state in patient with type 2 diabetes mellitus ICD Code: E11.01 - Type 2 diabetes mellitus with hyperosmolarity with coma (6) Dehydration with hyponatremia ICD Code: E87.1 - Hypo-osmolality and hyponatremia (7) Toxic metabolic encephalopathy ICD Code: G92 - Toxic encephalopathy (8) Septic shock ICD Code: A41.9 - Sepsis, unspecified organism; R65.21 - Severe sepsis with septic shock (9) Severe sepsis ICD Code: A41.9 - Sepsis, unspecified organism; R65.20 - Severe sepsis without septic shock Assessment and Plan A/P Septicemia with MSSA Right diabetic foot infection/cellulitis Continue Ancef Appreciate input from ID Repeat culture NTD Right foot abscess with ulcer stage III with cellulitis Appreciate input from podiatry - s/p wound VAC placement Status post Right foot I and D 05/15/17 and 05/17/17 . Right metatarsal foot biopsy ; negative for osteomyelitis. Continue Ancef for four [id number]. podiatry f/u appreciated; cleared for discharge with outpatient f/u. continue pain control. Hyperosmolar nonketotic state in patient with type 2 diabetes-resolved but with not-optimally controlled hyperglycemia increase Levemir to 16 units twice a day and continue with insulin sliding scale continue to monitor and adjust the regimen as needed. A1c 15.5, patient will need outpatient follow-up with endocrinology lung nodule- f/u as outpatient with CT chest- this has been d/w the patient. DVT prophylaxis with subq Heparin Discharge Planning patient doesn't have a place to go. he likely needs to stay in house for IV antibiotic therapy and wound vac management. previously d/w the case management and . Problem Qualifiers (1) Leukocytosis: Qualified Codes: D72.829 - Elevated white blood cell count, unspecified (2) Diabetic foot ulcer associated with type 2 diabetes mellitus, with fat layer exposed: Qualified Codes: E11.621 - Type 2 diabetes mellitus with foot ulcer; L97.512 - Non-pressure chronic ulcer of other part of right foot with fat layer exposed Francie Chaves MD May 28, 2017 08:19
[2017-05-28] MEDS: INSULIN NovoLIN REGULAR SUPPLEMENTAL SCALE SQ SCH ×4 (08:43→21:53)
[2017-05-28] MEDS: FAMOTIDINE 20 MG TAB PO SCH ×2 (08:44→21:41)
[2017-05-28] MEDS: SODIUM CHLORIDE 0.9% FLUSH 10 ML FLUSH IV FLUSH SCH ×2 (08:45→21:41)
[2017-05-28] MEDS: HEPARIN SODIUM - SQ 10,000 UNITS/ML VIAL SQ SCH ×2 (08:45→21:42)
[2017-05-28] MEDS: BACITRACIN TOP OINT 15 GM TUBE TOPICAL SCH (08:46)
[2017-05-28 11:50] VITALS: BP 123/73; PULSE 87; RESP 20; TEMP 98; O2SAT 96
[2017-05-28] MEDS: INSULIN DETEMIR 100 UNITS/ML VIAL SQ SCH ×2 (12:09→21:52)
[2017-05-28 15:50] VITALS: BP 116/69; PULSE 97; RESP 20; TEMP 97.9; O2SAT 97
--- NOTE | 2017-05-28 15:57 | HHI.FF ---
Face to Face Verification Diagnosis: (1) Non-healing ulcer of right foot Physical Therapy Order: Evaluate and Treat Home Health Nursing Order: Medical education Signs/symptoms of disease process Medication education-adverse effect Wound care and dressing changes IV medication administration I have seen patient Cyrus Braxton on 05/28/17. My clinical findings support the need for the requested home health care services because: Ltd mobility - disease progression I certify that my clinical findings support that this patient is homebound because: Unsteady gait/balance Francie Chaves MD May 28, 2017 15:57
[2017-05-28] MEDS ORDERED: LEVEMIR SQ (17:00)
[2017-05-28] MEDS ORDERED: NOVOLOGP2 SQ (17:00)
[2017-05-28] MEDS: MORPHINE SULFATE 4 MG/ML INJ IV PUSH PRN (17:08)
--- NOTE | 2017-05-28 17:14 | HHI.PR ---
Addendum To [facility] Progress Not Reason for addendum: Additonal documentation (was notified by the case management that the patient could be discharged to a hotel- PICC line will be placed. expected to be discharged tomorrow with outpatient IV antibiotic/ wound vac care after seen by pv installer tech. ) Francie Chaves MD May 28, 2017 17:14
--- NOTE | 2017-05-28 18:18 | RADRPT ---
EXAM DATE/TIME: 05/28/2017 18:04 [facility] COMPARISON: CHEST SINGLE AP, May 15, 2017, 8:47. INDICATIONS : PICC line placement MEDICAL HISTORY : Diabetes mellitus type II. SURGICAL HISTORY : None. ENCOUNTER: Initial ACUITY: 1 day PAIN SCORE: 0/10 LOCATION: Bilateral chest FINDINGS: A single view of the chest demonstrates the lungs to be symmetrically aerated without evidence of mas s, infiltrate or effusion. There is a right-sided PICC line in place. PICC line appears to be in good position. No evidence of pneumothorax. The cardiomediastinal contours are unremarkable. Osseous str uctures are intact. CONCLUSION: Good position of the right PICC line. Morgan York MD on May 28, 2017 at 18:16 Board Certified Radiologist. This report was verified electronically.
[2017-05-28] MEDS ORDERED: SODIUM CHLORIDE 0.9% FLUSH 10 ML FLUSH IV FLUSH PRN (18:45)
[2017-05-28 20:00] VITALS: BP 112/61; PULSE 106; RESP 18; TEMP 96.8; O2SAT 98
[2017-05-29] VITALS: BP 118/55; PULSE 99; RESP 17; TEMP 99.1; O2SAT 98
[2017-05-29] MEDS: CHLORHEXIDINE GLUCONATE 2 % 1 PACK (2 CLOTHS) TOP SCH (03:06)
[2017-05-29] MEDS: ceFAZolin 2 GM PREMIX 50 ML IV SCH ×2 (03:09→11:36)
[2017-05-29] MEDS: ACETAMINOPHEN/HYDROcodone 325 MG/10 MG TAB PO PRN ×3 (03:11→11:37)
[2017-05-29 04:00] VITALS: BP 132/76; PULSE 91; RESP 17; TEMP 99.3; O2SAT 96
[2017-05-29] MEDS: FAMOTIDINE 20 MG TAB PO SCH (07:40)
[2017-05-29] MEDS: SODIUM CHLORIDE 0.9% FLUSH 10 ML FLUSH IV FLUSH SCH (07:42)
[2017-05-29] MEDS: HEPARIN SODIUM - SQ 10,000 UNITS/ML VIAL SQ SCH (07:43)
[2017-05-29] MEDS: INSULIN NovoLIN REGULAR SUPPLEMENTAL SCALE SQ SCH ×2 (07:50→12:51)
[2017-05-29 08:14] VITALS: BP 117/72; PULSE 87; RESP 16; TEMP 96.9; O2SAT 98
[2017-05-29] MEDS ORDERED: SODIUM CHLORIDE 0.9% FLUSH 10 ML FLUSH IV FLUSH SCH (09:00)
[2017-05-29] MEDS: BACITRACIN TOP OINT 15 GM TUBE TOPICAL SCH (09:00)
[2017-05-29] MEDS: INSULIN DETEMIR 100 UNITS/ML VIAL SQ SCH (09:40)
--- NOTE | 2017-05-29 12:16 | HHI.DS ---
Discharge Summary Admission Date May 08, 2017 at 12:13 Discharge Date: May 29, 2017 Admitting Diagnosis HONK, sepsis (1) Normocytic anemia ICD Code: D64.9 - Anemia, unspecified (2) Leukocytosis ICD Code: D72.829 - Elevated white blood cell count, unspecified (3) Diabetic foot ulcer associated with type 2 diabetes mellitus, with fat layer exposed ICD Code: E11.621 - Type 2 diabetes mellitus with foot ulcer; L97.502 - Non- pressure chronic ulcer of other part of unspecified foot with fat layer exposed (4) Acute kidney injury ICD Code: N17.9 - Acute kidney failure, unspecified (5) Hyperosmolar non-ketotic state in patient with type 2 diabetes mellitus ICD Code: E11.01 - Type 2 diabetes mellitus with hyperosmolarity with coma (6) Dehydration with hyponatremia ICD Code: E87.1 - Hypo-osmolality and hyponatremia (7) Toxic metabolic encephalopathy ICD Code: G92 - Toxic encephalopathy (8) Septic shock ICD Code: A41.9 - Sepsis, unspecified organism; R65.21 - Severe sepsis with septic shock (9) Severe sepsis ICD Code: A41.9 - Sepsis, unspecified organism; R65.20 - Severe sepsis without septic shock Procedures PROCEDURE 1. Right foot I&D procedure 2. Right fifth metatarsal bone biopsy. Brief History - From Admission 56-year-old male . Date of admission 05/08/2017. Past medical history diabetes mellitus with right lower extremity foot wound, ongoing tobaccoism, prior EtOH use and recurrent nephrolithiasis. This patient presents to the [facility] emergency room with subacute onset of altered mental status. The states for the past month he has been somewhat depressed and likely not taking his medications. For the past 2 days, she's become more authority. She gave him some Compazine for nausea without relief. Today, she called EMS. Initial blood sugar was greater than 500. Verified 1955 per laboratory. Patient has some 15 months/chronic history around 150, continue current for leukocytosis of 21,000. Patient has a diabetic foot ulceration on the right lower extremity involving the lateral to the fifth digit which he has been self treating by peeling skin. He was hypertensive when he first arrived. Patient was given 500 ML's of normal saline on route by EMS. Patient was hypertensive upon arrival. He is not a reliable historian at this point. History is obtained from at bedside Kristine Jolly CBC/BMP: 05/25/1713 05/25/17612 Imaging Last Impressions Chest X-Ray 05/28/17 0000 Signed Impressions: Service Date/Time: Sunday, May 28, 2017 18:04 - CONCLUSION: Good position of the right PICC line. Morgan York MD Foot MRI 05/09/17 0000 Signed Impressions: Service Date/Time: Tuesday, May 09, 2017 15:29 - CONCLUSION: Abnormal head of the fifth metatarsal suggestive of edema and cortical enhancement associated with soft tissue swelling. Early osteomyelitis suspect. Jordan Tovar MD Head CT 05/08/17 0000 Signed Impressions: Service Date/Time: April 14:16 - CONCLUSION: 1. No acute intracranial abnormality is identified. Raghavendra Lim MD Foot X-Ray 05/08/17 0000 Signed Impressions: Service Date/Time: April 11:18 - CONCLUSION: 1. Soft tissue swelling lateral foot near the fifth MTP. No acute bony abnormality. No radiopaque foreign body. Francisco Grider MD PE at Discharge GENERAL: This is a well-nourished, well-developed patient, in no apparent distress. CARDIOVASCULAR: Regular rate and regular rhythm without murmurs, gallops, or rubs. RESPIRATORY: Clear to auscultation. Breath sounds equal bilaterally. No wheezes , rales, or rhonchi. GASTROINTESTINAL: Abdomen soft, non-tender, nondistended. Normal, active bowel sounds MUSCULOSKELETAL: right foot covered with clean dressing with wound vac in place NEURO: Alert & Oriented x4 to person, place, time, situation. Moves all ext x4 Pt update on day of discharge Patient has no complaints at this time. Pain is adequately controlled. No dyspnea, chest pain. Hospital Course The patient was admitted to the critical care service for further management of encephalopathy. Infectious disease and podiatry were consulted regarding right foot ulcer. Patient was continued on IV antibiotics. Echocardiogram showed no evidence of endocarditis. Incision and drainage of the wound was done at the bedside by podiatry. Vascular surgery was consulted for peripheral arterial disease. The patient was taken to the operating room for further incision and drainage. Wound VAC was applied. Wound care was consulted. Patient's antibiotics were adjusted. Arrangements were made for outpatient IV antibiotics in the patient was felt to be stable for discharge with home health. Pt Condition on Discharge: Stable Discharge Disposition: Disch w/ Home Health Serv Discharge Time: > 30 minutes Discharge Instructions DIET: Follow Instructions for: Diabetic Diet Activities you can perform: Regular-No Restrictions, Non Weight Bearing Other Activity Instructions: NWB right foot Follow up Referrals: Vascular Surgery @ Vascular Surgery with Hector Nuñez MD New Medications: Insulin Aspart Inj (Novolog Inj) 1,000 Unit/10 Ml Vial 1-9 UNITS SQ ACHS for Blood Sugar Management for 30 Days, #10 ML 0 Refills sugars less than 70,(0)units; sugars 150-199,(1) unit; sugars 200-249,(3) units; sugars 250-299,(5) units; sugars 300-349,(7) units; sugars greater than 349,(9) units Insulin Detemir Inj (Levemir Inj) 1,000 unit/ 10 ML Vial 16 UNITS SQ Q12HR for diabetes for 30 Days, INJECTION 0 Refills Do not mix with any other Insulin. Discontinued Medications: Metformin (Metformin) 850 Mg Tab 850 MG PO BIDPC for Blood Sugar Management, TAB 0 Refills With meals Siddharth Lane MD May 29, 2017 12:16
[2017-05-29] MEDS ORDERED: HYDR-3516 PO (12:17)
[2017-05-29 12:56] VITALS: BP 122/74; PULSE 88; RESP 18; TEMP 97.4; O2SAT 99
--- NOTE | 2017-05-29 15:17 | HHI.FF ---
Face to Face Verification Diagnosis: (1) Diabetic foot ulcer associated with type 2 diabetes mellitus, with fat layer exposed (2) Non-healing ulcer of right foot Home Health Nursing Order: Wound care and dressing changes Nursing assessment with vital signs Instructions: Wound vac changes Friday/Friday/Friday. I have seen patient Cyrus Braxton on 05/29/17. My clinical findings support the need for the requested home health care services because: High risk of falls Infection w/ risk of complications I certify that my clinical findings support that this patient is homebound because: Unsteady gait/balance Siddharth Lane MD May 29, 2017 15:17
== END 2017-05-29 14:19 | disposition home health service (06) | DRG 853 ==
LOC: NEPE 10:36 → NEDA 12:13 → HIMN 15:07 → HOCA 05-12 13:52
PROVIDERS: ADMIT Family Medicine; ATTEND Family Medicine
PROC: 0JBQ0ZZ Excision of Right Foot Subcutaneous Tissue and Fascia, Open Approach (ICD-10-PCS; principal; 2017-05-15 19:16)
PROC: 0J9Q0ZZ Drainage of Right Foot Subcutaneous Tissue and Fascia, Open Approach (ICD-10-PCS; 2017-05-17)
PROC: 0QBN0ZX Excision of Right Metatarsal, Open Approach, Diagnostic (ICD-10-PCS; 2017-05-17)
PROC: 02HV33Z Insertion of Infusion Device into Superior Vena Cava, Percutaneous Approach (ICD-10-PCS; 2017-05-28)
DX: A41.01 Sepsis due to Methicillin susceptible Staphylococcus aureus (principal); R65.21 Severe sepsis with septic shock; E11.00 Type 2 diabetes mellitus with hyperosmolarity without nonketotic hyperglycemic-hyperosmolar coma (NKHHC); G92 Toxic encephalopathy; N17.9 Acute kidney failure, unspecified; E87.1 Hypo-osmolality and hyponatremia; L03.115 Cellulitis of right lower limb; L02.611 Cutaneous abscess of right foot; M86.9 Osteomyelitis, unspecified; E11.52 Type 2 diabetes mellitus with diabetic peripheral angiopathy with gangrene; E11.621 Type 2 diabetes mellitus with foot ulcer; L97.512 Non-pressure chronic ulcer of other part of right foot with fat layer exposed; E86.0 Dehydration; D64.9 Anemia, unspecified; E87.8 Other disorders of electrolyte and fluid balance, not elsewhere classified; I10 Essential (primary) hypertension; T73.0XXA Starvation, initial encounter; E83.39 Other disorders of phosphorus metabolism; D75.89 Other specified diseases of blood and blood-forming organs; E11.628 Type 2 diabetes mellitus with other skin complications; R91.1 Solitary pulmonary nodule; F17.210 Nicotine dependence, cigarettes, uncomplicated; F32.9 Major depressive disorder, single episode, unspecified; Z59.0 Homelessness; Z79.84 Long term (current) use of oral hypoglycemic drugs; Z83.3 Family history of diabetes mellitus; Z91.14 Patient's other noncompliance with medication regimen; Z91.19 Patient's noncompliance with other medical treatment and regimen
CPT/HCPCS: 36569; 70450; 71010; 73620; 73720; 76937; 80048; 80053; 80061; 80202; 81001; 82010; 82805; 82947; 82948; 83036; 83605; 83735; 84100; 84484; 85025; 85027; 86403; 87015; 87040; 87070; 87086; 87102; 87116; 87147; 87186; 87205; 87206; 87641; 88304; 88307; 88311; 93308; 93923; 94150; 96361; 96365; 96372; A9579; J0131; J0690; J1200; J1642; J1644; J1815; J1817; J2250; J2270; J2370; J2405; J2543; J3010; J3370; J3480; J7030; J7040; J7042; J7050; L3260

== ENCOUNTER → 2017-07-18 | Outpatient (CLI) | payer OTHER ==
[~2017-07-18] MED LIST: CEFT2INJ IM; LEVEMIR SQ; NOVOLOGP2 SQ
[2017-07-18 11:09] LABS: AUTOMATED NEUTROPHIL # 4.7 TH/MM3 (1.8-7.7); BASOPHIL # 0.1 TH/MM3 (0-0.2); BASOPHIL % 0.6 % (0.0-2.0); EOSINOPHIL # 0.3 TH/MM3 (0-0.4); HEMATOCRIT 35.1 % (39.0-51.0); HEMO FLAGS DIFF FINAL; LYMPH % 31.1 % (9.0-44.0); LYMPHOCYTE # 2.6 TH/MM3 (1.0-4.8); MEAN CELL VOLUME 81.2 FL (80.0-100.0); MEAN CORPUSCULAR HEMOGLOBIN 27.5 PG (27.0-34.0); MEAN CORPUSCULAR HGB CONC 33.9 % (32.0-36.0); NEUT % 57.3 % (16.0-70.0); PLATELET COUNT 261 TH/MM3 (150-450); RED BLOOD COUNT 4.33 MIL/MM3 (4.50-5.90); RED CELL DISTRIBUTION WIDTH 14.2 % (11.6-17.2); WHITE BLOOD COUNT 8.2 TH/MM3 (4.0-11.0)
[2017-07-18 11:33] LABS: ANION GAP 7 MEQ/L (5-15); AST (GOT) 9 U/L (15-37); BICARBONATE 24.1 MEQ/L (21.0-32.0); BLOOD UREA NITROGEN 25 MG/DL (7-18); CHLORIDE 106 MEQ/L (98-107); GLOMERULAR FILTRATION RATE 76 ML/MIN (>89); GLUCOSE,FASTING 214 MG/DL (74-99); POTASSIUM 4.8 MEQ/L (3.5-5.1); SODIUM (NA) 137 MEQ/L (136-145)
[2017-07-18 11:44] LABS: ALKALINE PHOSPHATASE 80 U/L (45-117); ALT (GPT) 17 U/L (12-78); TOTAL BILIRUBIN ADULT 0.2 MG/DL (0.2-1.0)
[2017-07-18 13:03] LABS: HEMOGLOBIN A1b 2.3 %; HEMOGLOBIN Ao 80.8 %; HEMOGLOBIN LA1C 3.1 %; HEMOGLOBIN P3 4.6 %
== END ==
LOC: CLAB 10:37
PROVIDERS: ATTEND Family Medicine
DX: L97.512 Non-pressure chronic ulcer of other part of right foot with fat layer exposed (principal); F33.0 Major depressive disorder, recurrent, mild; E11.65 Type 2 diabetes mellitus with hyperglycemia; Z59.0 Homelessness
CPT/HCPCS: 36415; 80053; 83036; 84443; 85025

== ENCOUNTER 2017-10-07 12:29 | Inpatient (IN) | payer OTHER ==
[~2017-10-07] VITALS: Ht 182.9 cm; Wt 72.3 kg
[~2017-10-07 12:29] MED LIST changes: -CEFT2INJ IM; +GABA600T PO
[2017-10-07 12:30] VITALS: BP 108/60; PULSE 104; RESP 20; TEMP 98.8; O2SAT 99
--- NOTE | 2017-10-07 14:09 | RADRPT ---
EXAM DATE/TIME: 10/07/2017 13:15 [place] COMPARISON: No previous studies available for comparison. INDICATIONS : Painful wounds on plantar surface of right foot, the wound near the fifth digit is wet with discharg e MEDICAL HISTORY : Diabetes mellitus type II. SURGICAL HISTORY : None. ENCOUNTER: Initial ACUITY: 4 - 6 months PAIN SCORE: 10/10 LOCATION: Right foot FINDINGS: There is prominent soft tissue swelling overlying the fifth proximal metatarsal at the MTP joint. No definitive erosive bony change. Osseous structures are intact without acute fracture. Joint spaces ar e maintained. CONCLUSION: 1. Prominent soft tissue swelling overlying the fifth proximal metatarsal at the MTP joint. No defini tive erosive bony change to suggest osteomyelitis. Lupillo Webster MD on October 07, 2017 at 14:05 Board Certified Radiologist. This report was verified electronically.
[2017-10-07] MEDS ORDERED: PIPERACIL-TAZO 4.5 GM PREMIX 100 ML IV STA (14:48)
[2017-10-07] MEDS ORDERED: VANCOMYCIN INJ 1,000 MG in SODIUM CHLOR 0.9% 250 ML INJ 250 ML IV STA (14:48)
[2017-10-07] MEDS ORDERED: SODIUM CHLOR 0.9% 1000 ML INJ 1,000 ML IV ONE (15:00)
--- NOTE | 2017-10-07 15:12 | PD ---
HPI Chief Complaint: Skin Problem Time Seen by Provider: 14:37 Travel History International Travel<30 days: No Contact w/Intl Traveler<30days: No Traveled to known affect area: No History of Present Illness HPI 57 y/o male presents with right foot pain with new drainage and fever of 102 sent from the clinic. He states he currently does not have a shade maker to follow with. He states that he has had bad foot infections before. He states he is followed with primary Dr. Buckley. He states no other specific complaints at this time but is a poor historian and his helps supplement history. Quality pain is sharp. Severity is moderate. Pain is worse if you touch the area. He states he has limited feeling in that foot. History is limited as patient is a poor historian [facility] Past Medical History Diabetes: Yes Patient Takes Glucophage: No Diminished Hearing: No Kidney Stones: Yes Past Surgical History Genitourinary Surgery: Yes (kidney stone removal) Tonsillectomy: Yes Other Surgery: Yes (right foot) Social History Alcohol Use: No Tobacco Use: No Substance Use: No Allergies-Medications (Allergen,Severity, Reaction): Coded Allergies: No Known Allergies (Unverified Adverse Reaction, Unknown, 09/15/17) Uncoded Allergies: [place] dressing (Allergy, Severe, Anaphylaxis, 10/07/17) Reported Meds & Prescriptions Reported Meds & Active Scripts Active Gabapentin 600 Mg Tab 600 Mg PO TID Novolog Inj (Insulin Aspart) 1,000 Unit/10 Ml Vial 1-9 Units SQ ACHS 30 Days sugars less than 70,(0)units; sugars 150-199,(1) unit; sugars 200-249,(3) units; sugars 250-299,(5) units; sugars 300-349,(7) units; sugars greater than 349,(9) units Reported Basaglar Kwikpen (Insulin Glargine) 100 Unit/Ml Pen 10 Units SQ BID Review of Systems ROS Limitations: Poor Historian Except as stated in HPI: all other systems reviewed are Neg Physical Exam Exam Limitations: Poor Historian Narrative GENERAL: 57 y/o male presents in no apparent distress SKIN: Right foot to lateral aspect of upper foot with wound noted with thick yellow pus that is foul-smelling that was cultured, there is surrounding erythema over this area that goes up into the foot HEAD: Atraumatic. Normocephalic. EYES: No scleral icterus. No injection or drainage. ENT: No nasal bleeding or discharge. Mucous membranes pink and moist. NECK: Trachea midline. No JVD. CARDIOVASCULAR: Regular rate and rhythm. RESPIRATORY: No accessory muscle use. No increased effort NEUROLOGICAL: Awake and alert. Moves extremities. Normal speech. PSYCHIATRIC: Appropriate mood and affect; insight and judgment normal. Extremity: Pain with palpation of right foot, no pain with other joints , palpable dorsalis pedis pulse,compartments soft. Data Data Last Documented VS Vital Signs Date Time Temp Pulse Resp B/P (MAP) Pulse Ox O2 Delivery O2 Flow Rate FiO2 10/07/17 12:30 98.8 104 20 108/60 (76) 99 Room Air Orders Orders Complete Blood Count With Diff (10/07/17 12:40) Comprehensive Metabolic Panel (10/07/17 12:40) Prothrombin Time / Inr (Pt) (10/07/17 12:40) Act Partial Throm Time (Ptt) (10/07/17 12:40) Lactic Acid Sepsis Protocol (10/07/17 12:40) Magnesium (Mg) (10/07/17 12:40) Lipase (10/07/17 12:40) Westergren Sedimentation Rate (10/07/17 12:40) C-Reactive Protein (Crp) (10/07/17 12:40) Foot, Complete ([id number]) (10/07/17 ) Lactic Acid Sepsis Protocol (10/07/17 14:48) Blood Culture (10/07/17 14:48) Wound Culture And Gram Stain (10/07/17 14:48) Blood Glucose (10/07/17 14:48) Ecg Monitoring (10/07/17 14:48) Iv Access Insert/Monitor (10/07/17 14:48) Oximetry (10/07/17 14:48) Piperacil-Tazo 4.5 Gm Premix (Zosyn 4.5 (10/07/17 14:48) Vancomycin Inj (Vancomycin Inj) (10/07/17 14:48) Sodium Chlor 0.9% 1000 Ml Inj (Ns 1000 M (10/07/17 15:00) Oxycodone-Acetamin 5-325 Mg (Percocet (10/07/17 16:30) Place In Observation (10/07/17 ) Vital Signs (Adult) Q4H (2/20/18 16:41) Activity Oob With Assistance (10/07/17 16:41) Supervisory Air Intercept Controller / Telemetry .CONTINUOUS (10/07/17 16:41) Diet Heart Healthy (10/07/17 Dinner) Sodium Chloride 0.9% Flush (Ns Flush) (10/07/17 16:45) Sodium Chloride 0.9% Flush (Ns Flush) (10/07/17 21:00) Basic Metabolic Panel (Bmp) (10/08/17 06:00) Complete Blood Count With Diff (10/08/17 06:00) Creatine Kinase (Cpk) (10/07/17 16:41) Creatine Kinase (Cpk) (10/07/17 22:41) Troponin I (10/07/17 16:41) Troponin I (10/07/17 22:41) Electrocardiogram (10/07/17 16:41) Electrocardiogram (10/07/17 22:41) Pt Request For Service (10/07/17 16:41) Case Management Consult (10/07/17 16:41) Naloxone Inj (Narcan Inj) (10/07/17 16:45) Diet 1800 Ada Cons Carb (10/07/17 Dinner) Admit To Inpatient (10/07/17 ) Inpatient Certification (10/07/17 ) Vancomycin Consult Pharmacy (Vancomycin (10/07/17 17:00) Piperacil-Tazo 4.5 Gm Premix (Zosyn 4.5 (10/07/17 22:00) Consult Podiatry (10/07/17 ) (Hub Use Only)Inp Phy Cons/Ref (10/07/17 ) Admit Order (Ed Use Only) (10/07/17 17:27) Sodium Chlorid 0.9% 500 Ml Inj (Ns 500 M (10/07/17 17:30) Labs Laboratory Tests Test 10/07/17 15:20 10/07/17 16:40 White Blood Count 23.6 TH/MM3 Red Blood Count 3.39 MIL/MM3 Hemoglobin 9.3 GM/DL Hematocrit 27.4 % Mean Corpuscular Volume 81.0 FL Mean Corpuscular Hemoglobin 27.5 PG Mean Corpuscular Hemoglobin Concent 34.0 % Red Cell Distribution Width 14.5 % Platelet Count 160 TH/MM3 Mean Platelet Volume 8.8 FL Neutrophils (%) (Auto) 88.8 % Lymphocytes (%) (Auto) 2.0 % Monocytes (%) (Auto) 8.7 % Eosinophils (%) (Auto) 0.0 % Basophils (%) (Auto) 0.5 % Neutrophils # (Auto) 20.9 TH/MM3 Lymphocytes # (Auto) 0.5 TH/MM3 Monocytes # (Auto) 2.0 TH/MM3 Eosinophils # (Auto) 0.0 TH/MM3 Basophils # (Auto) 0.1 TH/MM3 CBC Comment AUTO DIFF Differential Total Cells Counted 100 Neutrophils % (Manual) 69 % Band Neutrophils % 20 % Lymphocytes % 2 % Monocytes % 9 % Neutrophils # (Manual) 21.0 TH/MM3 Differential Comment FINAL DIFF MANUAL Toxic Granulation 2+ Toxic Vacuolation PRESENT Dohle Bodies PRESENT Platelet Estimate NORMAL Platelet Morphology Comment NORMAL Erythrocyte Sedimentation Rate GREATER THAN 140 mm/hr Prothrombin Time 11.5 SEC Prothromb Time International Ratio 1.1 RATIO Activated Partial Thromboplast Time 24.6 SEC Lactic Acid Level 1.8 mmol/L Blood Urea Nitrogen 25 MG/DL Creatinine 1.51 MG/DL Random Glucose 273 MG/DL Total Protein 7.1 GM/DL Albumin 2.5 GM/DL Calcium Level 8.7 MG/DL Magnesium Level 2.0 MG/DL Alkaline Phosphatase 147 U/L Aspartate Amino Transf (AST/SGOT) 26 U/L Alanine Aminotransferase (ALT/SGPT) 20 U/L Total Bilirubin 0.6 MG/DL Sodium Level 127 MEQ/L Potassium Level 3.5 MEQ/L Chloride Level 94 MEQ/L Carbon Dioxide Level 19.8 MEQ/L Anion Gap 13 MEQ/L Estimat Glomerular Filtration Rate 48 ML/MIN C-Reactive Protein 38.00 MG/DL Lipase 55 U/L MDM Medical Decision Making Medical Screen Exam Complete: Yes Emergency Medical Condition: Yes Medical Record Reviewed: Yes (Past history confirmed) Interpretation(s) CBC & BMP Diagram 10/07/17 15:20 10/07/17 16:40 Total Protein 7.1, Albumin 2.5 L, Calcium Level 8.7, Magnesium Level 2.0, Alkaline Phosphatase 147 H, Aspartate Amino Transf (AST/SGOT) 26, Alanine Aminotransferase (ALT/SGPT) 20, Total Bilirubin 0.6 Last 24 hours Impressions Foot X-Ray 10/07/17 0000 Signed Impressions: Service Date/Time: Saturday, October 07, 2017 13:15 - CONCLUSION: 1. Prominent soft tissue swelling overlying the fifth proximal metatarsal at the MTP joint. No definitive erosive bony change to suggest osteomyelitis. Lupillo Webster MD Differential Diagnosis Fracture, osteomyelitis, cellulitis Narrative Course We will check blood work, x-ray, cultures and dose with vancomycin and Zosyn and he will need admitted to the hospital for further care Sepsis Criteria SIRS Criteria (2 or more): Heart rate over 90, WBC > 91898, < 4000 or > 10% bands Sepsis Criteria (SIRS+source): Infect source susp/known Criteria Outcome: Meets sepsis criteria Physician Communication Physician Communication dr dean agrees to admit Diagnosis Primary Impression: Sepsis Qualified Codes: A41.9 - Sepsis, unspecified organism Additional Impressions: Diabetic foot ulcer Qualified Codes: E10.621 - Type 1 diabetes mellitus with foot ulcer; L97.419 - Non-pressure chronic ulcer of right heel and midfoot with unspecified severity Dehydration with hyponatremia Renal insufficiency Admitting Information Admitting Physician Requests: Admit Tamela Pereira MD Oct 07, 2017 15:12
[2017-10-07 15:57] LABS: AUTOMATED NEUTROPHIL # 20.9 TH/MM3 (1.8-7.7); BASOPHIL # 0.1 TH/MM3 (0-0.2); BASOPHIL % 0.5 % (0.0-2.0); HEMATOCRIT 27.4 % (39.0-51.0); HEMOGLOBIN 9.3 GM/DL (13.0-17.0); LYMPHOCYTE # 0.5 TH/MM3 (1.0-4.8); MEAN CORPUSCULAR HEMOGLOBIN 27.5 PG (27.0-34.0); MEAN PLATELET VOLUME 8.8 FL (7.0-11.0); MONO % 8.7 % (0.0-8.0); NEUT % 88.8 % (16.0-70.0); PLATELET COUNT 160 TH/MM3 (150-450); RED BLOOD COUNT 3.39 MIL/MM3 (4.50-5.90); RED CELL DISTRIBUTION WIDTH 14.5 % (11.6-17.2); WHITE BLOOD COUNT 23.6 TH/MM3 (4.0-11.0)
[2017-10-07 16:00] VITALS: BP 130/61; PULSE 108; RESP 21; O2SAT 99
[2017-10-07 16:11] LABS: INTERNATIONAL NORMALIZED RATIO 1.1 RATIO; PROTHROMBIN TIME - PATIENT 11.5 SEC (9.8-11.6)
[2017-10-07] MEDS ORDERED: oxyCODONE/ACETAMINOPHEN 5 MG/325 MG TAB PO ONE (16:30)
[2017-10-07] MEDS ORDERED: NALOXONE HCL 0.4 MG/ML AMP IV PUSH PRN (16:45)
[2017-10-07] MEDS ORDERED: Vancomycin Consult Pharmacy 1 EA OTHER SCH (17:00)
[2017-10-07 17:07] LABS: BANDS 20 % (0-6); DOHLE BODIES PRESENT (NONE SEEN); LYMPHOCYTES 2 % (9-44); MONOCYTES 9 % (0-8); POLYS (SEG NEUTROPHILS) 69 % (16-70); TOXIC GRANULATION 2+ (NORMAL); TOXIC VACUOLATION PRESENT (NONE SEEN)
--- NOTE | 2017-10-07 17:16 | HHI.HP ---
[facility] No Primary Care Physician Diagnoses: (1) Leukocytosis (2) Dehydration with hyponatremia (3) Acute kidney injury (4) Sepsis (5) Diabetic foot ulcer Chief Complaint: foot ulcer Travel History International Travel<30 Days: No Contact w/Intl Traveler <30 Da: No Traveled to Known Affected Are: No History of Present Illness Written by Andreina Crabtree, acting as scribe for Dr. Pena on 10/07/17 at 17:01. 7-year-old male accompanied by at bedside with a past medical history of diabetes as well as kidney stones. Presents to the emergency department on 's request as well as PCP recommendations. reports that right foot wound began October 2016 was hospitalized from 05/08/17-05/29/17 due to foot ulcer. During this hospitalization patient underwent surgical debridement with wound VAC placement and was discharged on IV ceftriaxone through PICC line. Was visited by home healthcare to assist with right foot dressing changes and antibiotic administration. He subsequently followed up with [facility] for ongoing care of his diabetes. reports that he was recently started on a new insulin for treatment of diabetes. He followed up with in the wound care center for wound care which he repots he had every Friday. He has been receiving wound debridement and application of silver nitrate every Friday. He also reports that he was recently treated for an on the right foot with oral oral antibiotics. repots that she has been assisting with dressing changes and this was done this past Friday. Patient has been staying with his mother therefore did not see him again until today. She became concerned and felt that he was not doing well and called [facility] to instructed patient to come to the ED. feels as if patient might be having a reaction to the new insulin on top of worsening foot infection. and patient repot that he has bas been experiencing fevers, chills, loss of appetite, diarrhea for the past 2 days, frequent urination, denies dysuria. Prior to this denies any fevers or chills, N /V/D, SOB, cough or chest pain in the prior 2 weeks. He does endorses dizziness and repots falling the past 3 days while on the toilet. states that she was unaware of this until today. He denies any head injury, repots hitting right foot and shoulder, he was able to get up out of the floor by his self. Patient also states that previously to treat his DM he was taking Levemir (16- 35 units a day) and NovoLog previously and states that he tolerated both well with good control of DM. Review of Systems Constitutional: COMPLAINS OF: Fever, Chills Gastrointestinal: COMPLAINS OF: Diarrhea Except as stated in HPI: all other systems reviewed are Neg Past Family Social History Past Medical History DM II Renal stones Past Surgical History Right foot debridement of wound removal of kidney stones Tonsillitis Reported Medications Reported Meds & Active Scripts Active Gabapentin 600 Mg Tab 600 Mg PO TID Novolog Inj (Insulin Aspart) 1,000 Unit/10 Ml Vial 1-9 Units SQ ACHS 30 Days sugars less than 70,(0)units; sugars 150-199,(1) unit; sugars 200-249,(3) units; sugars 250-299,(5) units; sugars 300-349,(7) units; sugars greater than 349,(9) units Reported Basaglar Kwikpen (Insulin Glargine) 100 Unit/Ml Pen 10 Units SQ BID Allergies: Coded Allergies: No Known Allergies (Unverified Adverse Reaction, Unknown, 09/15/17) Uncoded Allergies: tuvaluan dressing (Allergy, Severe, Anaphylaxis, 10/07/17) Family History Father side: DM Social History Tobacco: quit 04/2017 Alcohol: sober for 21 years Illicit drug use: denies Lives with mother at the moment, . Physical Exam Vital Signs Vital Signs Date Time Temp Pulse Resp B/P (MAP) Pulse Ox O2 Delivery O2 Flow Rate FiO2 10/07/17 12:30 98.8 104 20 108/60 (76) 99 Room Air Physical Exam GENERAL: This is a well-nourished, well-developed patient, in no apparent distress. SKIN: No rashes, ecchymoses or lesions. Cool and dry. HEAD: Atraumatic. Normocephalic. No temporal or scalp tenderness. EYES: No scleral icterus. No injection or drainage. ENT: Nose without bleeding, purulent drainage or septal hematoma. Airway patent. NECK: Trachea midline. No JVD CARDIOVASCULAR: Regular rate and rhythm without murmurs, gallops, or rubs. RESPIRATORY: Clear to auscultation. Breath sounds equal bilaterally. No wheezes , rales, or rhonchi. GASTROINTESTINAL: Abdomen soft, non-tender, nondistended. No hepato-splenomegaly , or palpable masses. No guarding. MUSCULOSKELETAL: Extremities without clubbing, cyanosis, or edema. No calf tenderness. LEFT foot with dorsum with open wound, foul smelling yellowish discharge, LEFT plantar surface ulcer is healed and closed NEUROLOGICAL: Awake and alert. Motor and sensory grossly within normal limits. Normal speech. Laboratory Laboratory Tests Test 10/07/17 15:20 White Blood Count 23.6 Red Blood Count 3.39 Hemoglobin 9.3 Hematocrit 27.4 Mean Corpuscular Volume 81.0 Mean Corpuscular Hemoglobin 27.5 Mean Corpuscular Hemoglobin Concent 34.0 Red Cell Distribution Width 14.5 Platelet Count 160 Mean Platelet Volume 8.8 Neutrophils (%) (Auto) 88.8 Lymphocytes (%) (Auto) 2.0 Monocytes (%) (Auto) 8.7 Eosinophils (%) (Auto) 0.0 Basophils (%) (Auto) 0.5 Neutrophils # (Auto) 20.9 Lymphocytes # (Auto) 0.5 Monocytes # (Auto) 2.0 Eosinophils # (Auto) 0.0 Basophils # (Auto) 0.1 CBC Comment AUTO DIFF Erythrocyte Sedimentation Rate GREATER THAN 140 Prothrombin Time 11.5 Prothromb Time International Ratio 1.1 Activated Partial Thromboplast Time 24.6 Lactic Acid Level 1.8 Date/Time Source Procedure Growth Status 10/07/17 15:20 Blood Peripheral Aerobic Blood Culture Pending Received 10/07/17 15:20 Blood Peripheral Anaerobic Blood Culture Pending Received 10/07/17 15:15 Wound Foot Gram Stain Pending Received 10/07/17 15:15 Wound Foot Wound Culture Pending Received Result Diagram: 10/07/17 1520 Imaging Last Impressions Foot X-Ray 10/07/17 0000 Signed Impressions: Service Date/Time: Saturday, October 07, 2017 13:15 - CONCLUSION: 1. Prominent soft tissue swelling overlying the fifth proximal metatarsal at the MTP joint. No definitive erosive bony change to suggest osteomyelitis. MD Lucia Srinivasan VTE Risk Assessment Caprini VTE Risk Assessment: Mod/High Risk (score >= 2) Caprini Risk Assessment Model Point Value = 1 Point Value = 2 Point Value = 3 Point Value = 5 Age 41-60 Minor surgery BMI > 25 kg/m2 Swollen legs Varicose veins or History of unexplained or recurrent spontaneous Oral contraceptives or hormone replacement Sepsis (< 1 month) Serious lung disease, including pneumonia (< 1 month) Abnormal pulmonary function Acute myocardial infarction Congestive heart failure (< 1 month) History of inflammatory bowel disease Medical patient at bed rest Age 61-74 Arthroscopic surgery Major open surgery (> 45 min) Laparoscopic surgery (> 45 min) Malignancy Confined to bed (> 72 hours) Immobilizing plaster cast Central venous access Age >= 75 History of VTE Family history of VTE Factor V Leiden Prothrombin [id number] Lupus anticoagulant Anticardiolipin antibodies Elevated serum homocysteine Heparin-induced thrombocytopenia Other congenital or acquired thrombophilia Stroke (< 1 month) Elective arthroplasty Hip, pelvis, or leg fracture Acute spinal cord injury (< 1 month) Prophylaxis Regimen Total Risk Factor Score Risk Level Prophylaxis Regimen 0-1 Low Early ambulation 2 Moderate Order ONE of the following: *Sequential Compression Device (SCD) *Heparin 5000 units SQ BID 3-4 Higher Order ONE of the following medications: *Heparin 5000 units SQ TID *Enoxaparin/Lovenox 40 mg SQ daily (WT < 150 kg, CrCl > 30 mL/min) *Enoxaparin/Lovenox 30 mg SQ daily (WT < 150 kg, CrCl > 10-29 mL/min) *Enoxaparin/Lovenox 30 mg SQ BID (WT < 150 kg, CrCl > 30 mL/min) AND/OR *Sequential Compression Device (SCD) 5 or more Highest Order ONE of the following medications: *Heparin 5000 units SQ TID (Preferred with Epidurals) *Enoxaparin/Lovenox 40 mg SQ daily (WT < 150 kg, CrCl > 30 mL/min) *Enoxaparin/Lovenox 30 mg SQ daily (WT < 150 kg, CrCl > 10-29 mL/min) *Enoxaparin/Lovenox 30 mg SQ BID (WT < 150 kg, CrCl > 30 mL/min) AND *Sequential Compression Device (SCD) Assessment and Plan Assessment and Plan 57-year-old male with past medical history of diabetes and right foot ulcer previously treated with IV antibiotics, debridement, wound VAC placement. Complaints of fevers, chills, loss of appetite, diarrhea, and increase foul drainage of right foot. Leukocytosis with left shift Right diabetic foot ulcer - CBC reviewed, leukocytosis with left shift, ESR >140, CRP 38.0, afebrile on admission, mild tachycardia heart rate 104 - Right foot x-ray reviewed, prominent soft tissue swelling overlying the fifth proximal metatarsal at the MTP joint. No definitive erosive bony changes to suggest osteomyelitis. - Blood cultures 2 obtained and right foot wound culture - Started on IV Zosyn and vancomycin for broad-spectrum coverage, ID consult and podiatry consult placed, appreciate recommendations. -Tramadol as needed for pain control BLANCA with hyponatremia - CMP reviewed, NA 127, BUN 51, GFR 48 -Contrary to dehydration, given in ED, give additional 500 mL's of NS - Monitor labs Diarrhea -Completed p.o. Bactrim course 3 weeks ago, will check C. difficile -Provided with 1 L of NS while in the ED, 500 mL's of NS as the bolus due to dehydration DM II - Hemoglobin A1C from 07/18/17 was 7.7 - 1800 ADA diet, Accu-checks with ISS coverage, monitor for hypoglycemia DVT prophylaxis- heparin This note was transcribed by norman [Andreina Crabtree]. I, Dr. Trever Pena personally performed the history, physical exam, and medical decision making; and confirmed the accuracy of the information in the transcribed note. Authenticated by Dr. Trever Pena on 10/07/17 at 17:01. Discussed Condition With patient, ER MD, nursing staff, Physician Certification 2 Midnight Certification Type: Admission for Inpatient Services Order for Inpatient Services The services are ordered in accordance with Medicare regulations or non- Medicare payer requirements, as applicable. In the case of services not specified as inpatient-only, they are appropriately provided as inpatient services in accordance with the 2-midnight benchmark. Estimated LOS (days): 3 days is the estimated time the patient will need to remain in the hospital, assuming treatment plan goals are met and no additional complications. Post-Hospital Plan: Home Problem Qualifiers (1) Sepsis: Qualified Codes: A41.9 - Sepsis, unspecified organism (2) Diabetic foot ulcer: Qualified Codes: E10.621 - Type 1 diabetes mellitus with foot ulcer; L97.419 - Non-pressure chronic ulcer of right heel and midfoot with unspecified severity Andreina Crabtree Oct 07, 2017 17:16 Trever Pena MD Oct 07, 2017 21:39
[2017-10-07 17:22] LABS: ALBUMIN 2.5 GM/DL (3.4-5.0); AST (GOT) 26 U/L (15-37); BICARBONATE 19.8 MEQ/L (21.0-32.0); BLOOD UREA NITROGEN 25 MG/DL (7-18); CALCIUM 8.7 MG/DL (8.5-10.1); CHLORIDE 94 MEQ/L (98-107); CREATININE 1.51 MG/DL (0.60-1.30); GLOMERULAR FILTRATION RATE 48 ML/MIN (>89); GLUCOSE,RANDOM 273 MG/DL (74-106); SODIUM (NA) 127 MEQ/L (136-145)
[2017-10-07 17:23] LABS: ALT (GPT) 20 U/L (12-78)
[2017-10-07] MEDS ORDERED: INSU1INJ18 SQ (17:26)
[2017-10-07 17:30] LABS: ALKALINE PHOSPHATASE 147 U/L (45-117); TOTAL BILIRUBIN ADULT 0.6 MG/DL (0.2-1.0); TOTAL PROTEIN 7.1 GM/DL (6.4-8.2)
[2017-10-07] MEDS ORDERED: SODIUM CHLORID 0.9% 500 ML INJ 500 ML IV ONE (17:30)
[2017-10-07 18:51] VITALS: BP 104/58; PULSE 99; RESP 22; TEMP 99.8; O2SAT 96
[2017-10-07] MEDS ORDERED: GLUCAGON 1 MG/ML VIAL OTHER PRN (19:15)
[2017-10-07] MEDS ORDERED: DEXTROSE 50% IN WATER 50 ML VIAL(D50) IV PUSH PRN (19:15)
[2017-10-07 19:53] VITALS: PULSE 115
[2017-10-07 20:00] VITALS: BP 118/58; PULSE 112; RESP 19; TEMP 97.8; O2SAT 96
--- NOTE | 2017-10-07 20:05 | MB ---
cc: MARLENI MORTON DPM DATE OF CONSULTATION 10/07/17 REASON FOR CONSULTATION Right foot ulcer abscess. HISTORY OF PRESENT ILLNESS This is a 57-year-old diabetic male who apparently follows outpatient with wound care, Dr. Buckley. However, he was unable to make his last visit. He was not feeling well. His PCP recommended he present to the hospital. The patient was examined. There was noted to be a purulent draining ulcer of the right foot. Therefore, I was consulted. The patient is currently seen bedside. He appears stable. He is shivering. He is having slight sweats. He is describing that he has had diarrhea for the past couple of days. He is an insulin-dependent diabetic. MEDICATIONS Outpatient - Antibiotics. I could not find one. Inpatient medications reviewed. He is currently receiving Vancomycin and Zosyn. Please see complete med list in chart. DRUG ALLERGIES PUERTO RICAN DRESSING VITAL SIGNS: Temperature is 99.8, pulse rate is 99, respiratory rate is 22. Blood pressures 104/58. This is an alert and oriented male seen bedside. He is slightly diaphoretic and he is noted to be shivering. The right lower extremity is examined. There is a purulent draining abscess that was tender to palpation over the dorsal aspect of the fifth MPJ. There is redness of near entire dorsum of the foot. There is also an eschar purulent periphery borders of the inner arch. There is no obvious signs of soft tissue emphysema. The ankle appears to be spared from obvious pain or inflammation. Pulses are decreased, however, the foot appears warm. Sensation is decreased to light touch but intact to deep pressure. LABORATORY FINDINGS White blood cell 23.6, hemoglobin/hematocrit is 9 and 27, platelet count is 160. ESR is greater than 140. Coagulation profile - PT is 11.5, INR 1.1. Chem-7 - sodium 127, potassium 3.5, chloride 94, CO2 19.8, BUN is 25, creatinine 1.51, random glucose is 273. Blood cultures ordered and received. Gram stain pending. IMAGING STUDIES X-rays - there is prominent soft tissue swelling over the fifth metatarsal at the MPJ but no definitive erosive findings. ASSESSMENT/PLAN Right foot ulcer abscess, likely septic fifth MPJ with osteomyelitis. RECOMMENDATIONS MRI to determine the extent of the inflammation. The patient will likely need fifth metatarsal resection, possible amputation of digit with incision and drainage of foot. I am also recommending arterial Doppler to verify circulation. This surgery will likely take place tomorrow. The patient was educated on the possibility of need for more surgery at a later date including but not limited to partial amputation of foot if not limb loss. The patient is agreeable to try and remove all the infection. I will see the patient in the late afternoon for surgery. IVONNE Churchill/ /7:33 PM /7:46 PM
[2017-10-07] MEDS: PIPERACIL-TAZO 4.5 GM PREMIX 100 ML IV SCH (21:28)
[2017-10-07] MEDS: SODIUM CHLORIDE 0.9% FLUSH 10 ML FLUSH IV FLUSH SCH (21:28)
[2017-10-07] MEDS: traMADol HCL 50 MG TAB PO PRN (21:32)
[2017-10-07] MEDS: INSULIN ASPART SUPPLEMENTAL SCALE SQ SCH (22:12)
[2017-10-07 23:12] LABS: TROPONIN I LESS THAN 0.02 NG/ML (0.02-0.05)
[2017-10-07 23:41] VITALS: PULSE 108
[2017-10-07] MEDS ORDERED: ACETAMINOPHEN/HYDROcodone 325 MG/5 MG TAB PO ONE (23:45)
[2017-10-08] VITALS (7 sets, daily range): BP systolic 99–157; BP diastolic 53–99; PULSE 77–111; RESP 16–20; TEMP 97.8–99.1; O2SAT 93–95
[2017-10-08 02:05] LABS: TROPONIN I LESS THAN 0.02 NG/ML (0.02-0.05)
[2017-10-08] MEDS: HEPARIN SODIUM - SQ 10,000 UNITS/ML VIAL SQ SCH ×3 (05:34→22:01)
[2017-10-08] MEDS: PIPERACIL-TAZO 4.5 GM PREMIX 100 ML IV SCH ×5 (05:36→22:01)
--- NOTE | 2017-10-08 07:57 | EKG ---
Date Performed: 10/07/2017 Time Performed: 21:49:54 PTAGE: 57 years EKG: SINUS TACHYCARDIA ABNORMAL RHYTHM ECG PREVIOUS TRACING : 10/07/2017 17.31 DOCTOR: Paxton Guerra Interpretating Date/Time 10/08/2017 07:53:45
--- NOTE | 2017-10-08 08:13 | EKG ---
Date Performed: 10/07/2017 Time Performed: 17:31:47 PTAGE: 57 years EKG: SINUS TACHYCARDIA ABNORMAL RHYTHM ECG NO PREVIOUS TRACING DOCTOR: Paxton Guerra Interpretating Date/Time 10/08/2017 08:12:35
[2017-10-08 08:31] LABS: AUTOMATED NEUTROPHIL # 15.5 TH/MM3 (1.8-7.7); BASOPHIL # 0.1 TH/MM3 (0-0.2); BASOPHIL % 0.5 % (0.0-2.0); HEMATOCRIT 22.9 % (39.0-51.0); HEMOGLOBIN 7.9 GM/DL (13.0-17.0); LYMPH % 3.3 % (9.0-44.0); LYMPHOCYTE # 0.6 TH/MM3 (1.0-4.8); MEAN CELL VOLUME 80.3 FL (80.0-100.0); MEAN CORPUSCULAR HEMOGLOBIN 27.6 PG (27.0-34.0); MEAN CORPUSCULAR HGB CONC 34.3 % (32.0-36.0); MONO % 10.4 % (0.0-8.0); MONOCYTE # 1.9 TH/MM3 (0-0.9); NEUT % 85.8 % (16.0-70.0); PLATELET COUNT 149 TH/MM3 (150-450); RED BLOOD COUNT 2.85 MIL/MM3 (4.50-5.90); RED CELL DISTRIBUTION WIDTH 14.4 % (11.6-17.2)
[2017-10-08 08:42] LABS: BICARBONATE 17.1 MEQ/L (21.0-32.0); CREATININE 1.91 MG/DL (0.60-1.30)
[2017-10-08] MEDS: SODIUM CHLORIDE 0.9% FLUSH 10 ML FLUSH IV FLUSH SCH ×2 (09:00→21:00)
[2017-10-08] MEDS ORDERED: GADODIAMIDE PF 287 MG/ML 5 ML VIAL (for RAD MRI) IVCONTRAST ONE (09:51)
[2017-10-08] MEDS: INSULIN ASPART SUPPLEMENTAL SCALE SQ SCH ×4 (10:19→22:02)
[2017-10-08] MEDS ORDERED: DEXTROSE 50% IN WATER 50 ML VIAL(D50) IV PUSH PRN (10:30)
[2017-10-08] MEDS ORDERED: GLUCAGON 1 MG/ML VIAL OTHER PRN (10:30)
--- NOTE | 2017-10-08 10:35 | HHI.PR ---
Subjective Remarks Follow-up sepsis/diabetic foot infection/bacteremia 10/08/17-patient seen and examined, afebrile and currently nothing by mouth however patient has not consented for any surgery yet. Blood cultures positive 4. Plan for MRI of the foot Objective Vitals Vital Signs Date Time Temp Pulse Resp B/P (MAP) Pulse Ox O2 Delivery O2 Flow Rate FiO2 10/08/17 08:00 98.7 94 20 116/59 (78) 93 10/08/17 04:00 97.8 99 20 99/53 (68) 94 10/08/17 03:52 98 10/08/17 00:00 98.6 111 20 118/66 (83) 94 10/07/17 23:41 108 10/07/17 20:00 97.8 112 19 118/58 (78) 96 10/07/17 19:53 115 10/07/17 19:07 10/07/17 18:51 99.8 99 22 104/58 (73) 96 Room Air 10/07/17 16:00 108 21 130/61 (84) 99 Room Air 10/07/17 12:30 98.8 104 20 108/60 (76) 99 Room Air I/O 10/07/17 10/07/17 10/07/17 10/08/17 10/08/17 10/08/17 07:00 15:00 23:00 07:00 15:00 23:00 Intake Total 0 ml Balance 0 ml Intake Oral 0 ml # Voids 3 Result Diagram: 10/08/17 0500 10/08/17 0500 Imaging Last Impressions Foot X-Ray 10/07/17 0000 Signed Impressions: Service Date/Time: Saturday, October 07, 2017 13:15 - CONCLUSION: 1. Prominent soft tissue swelling overlying the fifth proximal metatarsal at the MTP joint. No definitive erosive bony change to suggest osteomyelitis. Lupillo Webster MD Objective Remarks GENERAL: NAD SKIN: Warm and dry. HEAD: Normocephalic. EYES: No scleral icterus. No injection or drainage. NECK: Supple, trachea midline. No JVD or lymphadenopathy. CARDIOVASCULAR: Regular rate and rhythm without murmurs, gallops, or rubs. RESPIRATORY: Breath sounds equal bilaterally. No accessory muscle use. GASTROINTESTINAL: Abdomen soft, non-tender, nondistended. MUSCULOSKELETAL: No cyanosis, or edema. left foot in dressing BACK: Nontender without obvious deformity. No CVA tenderness. A/P Problem List: (1) Leukocytosis ICD Code: D72.829 - Elevated white blood cell count, unspecified (2) Dehydration with hyponatremia ICD Code: E87.1 - Hypo-osmolality and hyponatremia (3) Acute kidney injury ICD Code: N17.9 - Acute kidney failure, unspecified (4) Sepsis ICD Code: A41.9 - Sepsis, unspecified organism Status: Acute (5) Diabetic foot ulcer ICD Code: E11.621 - Type 2 diabetes mellitus with foot ulcer; L97.509 - Non- pressure chronic ulcer of other part of unspecified foot with unspecified severity Status: Acute (6) Acute renal failure superimposed on stage 3 chronic kidney disease ICD Code: N17.9 - Acute kidney failure, unspecified; N18.3 - Chronic kidney disease, stage 3 (moderate) (7) Bacteremia due to Gram-positive bacteria ICD Code: R78.81 - Bacteremia Assessment and Plan 57 year-old man with Sepsis Secondary to diabetic foot infection Secondary to vancomycin and Zosyn Monitor culture report Diabetic foot infection MRI of right foot pending to rule out osteomyelitis Appreciate input from podiatry for possible amputation ID consult pending Continue with vancomycin and Zosyn Bacteremia with gram-positive cocci Repeat blood culture ID consult pending Continue vancomycin and Zosyn Diabetes type 2 Hold oral hypoglycemic agent and chain medium sliding scale insulin Resume basal insulin when patient able to take by mouth Acute on chronic kidney disease stage III - Start NS 84 mL/hour Monitor Bun and creatinine and avoid all nephrotoxic drugs Diarrhea -Completed p.o. Bactrim course 3 weeks ago, will check C. difficile -Provided with 1 L of NS while in the ED, 500 mL's of NS as the bolus due to dehydration DVT prophylaxis- heparin Problem Qualifiers (1) Sepsis: Qualified Codes: A41.9 - Sepsis, unspecified organism (2) Diabetic foot ulcer: Qualified Codes: E10.621 - Type 1 diabetes mellitus with foot ulcer; L97.419 - Non-pressure chronic ulcer of right heel and midfoot with unspecified severity Jairon Roberts MD Oct 08, 2017 10:35
--- NOTE | 2017-10-08 10:42 | RADRPT ---
EXAM DATE/TIME: 10/08/2017 09:17 This report includes an Addendum and supersedes previous reports for this exam. [facility] COMPARISON: FOOT RIGHT COMPLETE ([id number]), October 07, 2017, 13:15. MRI FOOT RIGHT W & W/O CONTRAST, May 09, 2017, 15:29. INDICATIONS : Wound on medial food proximal to the 5th digit. CONTRAST: 14 cc Omniscan (gadodiamide) IV MEDICAL HISTORY : Diabetes mellitus type 2. SURGICAL HISTORY : Tonsillectomy. kidney stones removed, rt foot surgery ENCOUNTER: Subsequent ACUITY: 2 weeks PAIN SCORE: 0/10 LOCATION: Right foot TECHNIQUE: Multiplanar, multisequence MRI examination was performed without contrast and after the intravenous a dministration of gadolinium. FINDINGS: Examination was performed to evaluate focal area of soft tissue swelling about the medial forefoot in the region of the distal metatarsal bone. There is prominent dorsal soft tissue swelling adjacent t o the distal 5th metatarsus with evidence of T2 prolongation and with a peripheral area of enhancemen t and central area that does not enhance suggesting a soft tissue abscess, measuring 1 cm in dimensio n. The cavity extends to a soft tissue irregularity suggesting a sinus tract. There is a similar ap pearing soft tissue abnormalities surrounding the distal 5th metatarsus with a small area of signal a bnormality in the plantar soft tissues, measuring up to 3 mm. Special attention is directed to the marrow of the distal 5th metatarsal bone, where there is a sharp ly demarcated area of T1 and T2 prolongation involving the epiphysis and extending into the lateral m etaphysis. On the postcontrast images, there is no enhancement in this focal signal abnormality. Co mparison is made to prior MRI April 2017 the prior MRI had demonstrated signal abnormality in the marrow of the distal 5th metatarsus, very similar in distribution to the abnormality seen on today's exam, however, on the prior MR there was only T2 prolongation and T1 prolongation. No signal abnormality seen in the remainder of the forefoot osseous structures. CONCLUSION: 1. Evidence of cellulitis with 1 cm abscess with peripheral enhancement in the dorsal soft tissues ad jacent to the distal 5th digit metatarsus. 2. There is signal abnormality (T1 and T2 prolongation) in the distal metaphysis and epiphysis of the 5th metatarsal bone without definite enhancement in the marrow. This is located adjacent to the sof t tissue abscess. Some signal abnormality (T2 prolongation) seen in the same region of the metatarsa l bone prior MRI in April 2017, making the significance of the finding uncertain. Differential c onsiderations include both chronic and acute osteomyelitis. Elías Keane MD on October 08, 2017 at 10:24 Board Certified Radiologist. This report was verified electronically. ADDENDUM: The abscess adjacent to the distal 5th metatarsus does extend proximally anterior and lateral to the 5th metatarsus and there is a 2nd fluid collection which measures 1.7 x 0.6 cm, located anterior and lateral to the base of the 5th metatarsus. This has similar signal characteristics and enhancement p attern as the distal fluid component. In addition, there is a thin amount of fluid tracking in a non -distending the peritoneal tendon sheath, this is only seen on the sagittal images. Elías Keane MD on October 08, 2017 at 17:46 Board Certified Radiologist. This report was verified electronically.
[2017-10-08] MEDS: SODIUM CHLOR 0.9% 1000 ML INJ 1,000 ML IV SCH ×2 (11:51→22:01)
[2017-10-08] MEDS: VANCOMYCIN INJ 1,250 MG in SODIUM CHLOR 0.9% 250 ML INJ 250 ML IV SCH (11:52)
[2017-10-08] MEDS ORDERED: ROCURONIUM INJ 50 MG/5 ML SYRINGE IV PUSH ONE (12:00)
[2017-10-08] MEDS ORDERED: PROPOFOL 200 MG/20 ML AMP IV ONE (12:00)
[2017-10-08] MEDS ORDERED: PHENYLEPH/NS 1000 MCG/10 ML SYR IV ONE (12:00)
[2017-10-08] MEDS ORDERED: BUPIVACAINE HCL PF 0.25% 30 ML VIAL ONE (12:51)
--- NOTE | 2017-10-08 13:44 | RADRPT ---
EXAM DATE/TIME: 10/07/2017 00:00 [facility] COMPARISON: ARTERIAL SEGMENTAL DOPPLER COMP W/TBI, May 13, 2017, 0:00. INDICATIONS : DIABETIC FOOT INFECTION, SEPSIS TECHNIQUE: Five-station segmental examination of the lower extremities was performed. Pulsed-cuff waveform tracings and pressures were recorded. Ankle-brachial indices and toe-brachial indices were calculated. PRESSURES (mmHg): Brachial (arm): Right 97 Left IV SITE Lower Thigh: Right 101 Left 122 Calf: Right 115 Left 98 Ankle: Right 106 Left 228 Toe: Right 49 Left 36 KHADRA: Right 1.09 Left 2.35 TBI: Right 0.51 Left 0.37 PULSED CUFF WAVEFORMS: Demonstrate normal amplitude bilaterally. CONCLUSION: 1. Nondiagnostic evaluation on the on the left secondary densely calcified vessels 2. Decreased toe brachial indices bilaterally characteristic of small vessel disease. 3. CT angiography of the abdominal aorta and lower extremities is recommended for further evaluation if clinically indicated. Chetan Escobedo MD on October 08, 2017 at 13:40 Board Certified Radiologist. This report was verified electronically.
--- NOTE | 2017-10-08 14:14 | PD.ID.CON ---
History of Present Illness Service Infectious disease Consult Requested By Reason for Consult Evaluation and management of right foot osteomyelitis and strep bacteremia. Primary Care Physician No Primary Care Physician Diagnoses: History of Present Illness Mr. Braxton is a 57-year-old male with past medical history significant for diabetes type 2, prior diabetic foot ulcer treated in October 2016 thereafter was hospitalized from May 08, 2017 to May 29, 2017 due to foot ulcer. During that hospitalization patient underwent surgical debridement with wound VAC placement. Patient reports that he was seen by Dr. Pritchard during that admission. Patient reports that he was discharged on IV ceftriaxone using a PICC line. Patient had home health care visits him and continue to receive wound VAC changes at home. He also was subsequently seen at wound care clinic for ongoing wound care as well as [facility] for his primary care needs. Patient reports that his medications were recently adjusted and a new insulin was introduced. Patient reports that he was diagnosed with a possible staph or strep infection and has been on oral Bactrim approximately 2 weeks prior to admission. Due to worsening foot infection as well as possible reaction to the new insulin patient presented to the emergency department [facility]. Patient reports that he was having fevers, chills, loss of appetite and diarrhea for the past 2 days associated with frequent urination. Patient denies any dysuria. He reports dizziness and reported history of falls 3 days ago while on the toilet. Patient's reports that she was unaware of this history of fall. He denies any head injury. Patient reports hitting his right foot and shoulder but that he was able to get off the floor by himself. Patient had a sepsis workup initiated on admission. Wound cultures are positive for strep as well as blood cultures are now positive for gram-positive likely strep. Repeat blood cultures have been ordered. Podiatry is seeing the patient and there is a plan for surgical intervention and possible amputation of the involved digit. Infectious disease is consulted for evaluation and management of right fifth toe osteomyelitis with associated cellulitis, gram-positive bacteremia and sepsis. Review of Systems ROS Limitations: Poor Historian Constitutional: COMPLAINS OF: Fatigue, Fever, Chills, Change in appetite Endocrine: DENIES: Heat/cold intolerance, Polydipsia, Polyuria, Polyphagia Eyes: DENIES: Blurred vision, Diplopia, Eye inflammation, Eye pain, Vision loss , Photosensitivity, Double Vision Ears, nose, mouth, throat: DENIES: Tinnitus, Hearing loss, Vertigo, Nasal discharge, Oral lesions, Throat pain, Hoarseness, Ear Pain, Running Nose, Epistaxis, Sinus Pain, Toothache, Odynophagia Respiratory: DENIES: Apneas, Cough, Snoring, Wheezing, Hemoptysis, Sputum production, Shortness of breath Cardiovascular: DENIES: Chest pain, Palpitations, Syncope, Dyspnea on Exertion , PND, Lower Extremity Edema, Orthopnea, Claudication Gastrointestinal: DENIES: Abdominal pain, Black stools, Bloody stools, Constipation, Diarrhea, Nausea, Vomiting, Difficulty Swallowing, Anorexia Genitourinary: DENIES: Sexual dysfunction, Urinary frequency, Urinary incontinence, Urgency, Hematuria, Dysuria, Nocturia, Penile Discharge, Testicular Pain, Testicular Swelling Musculoskeletal: COMPLAINS OF: Joint pain, Joint Swelling, DENIES: Muscle aches , Stiffness, Back pain, Neck pain Integumentary: COMPLAINS OF: Abnormal pigmentation, DENIES: Nail changes, Pruritus, Rash Hematologic/lymphatic: DENIES: Bruising, Lymphadenopathy Immunologic/allergic: DENIES: Eczema, Urticaria Neurologic: DENIES: Abnormal gait, Headache, Localized weakness, Paresthesias, Seizures, Speech Problems, Tremor, Poor Balance Psychiatric: DENIES: Anxiety, Confusion, Mood changes, Depression, Hallucinations, Agitation, Suicidal Ideation, Homicidal Ideation, Delusions Except as stated in HPI: all other systems reviewed are Neg Past Family Social History Allergies: Coded Allergies: No Known Allergies (Unverified Adverse Reaction, Unknown, 09/15/17) Uncoded Allergies: ukrainian dressing (Allergy, Severe, Anaphylaxis, 10/07/17) Past Medical History DM II Right foot ulcer with possible osteomyelitis in the past. Has received IV antibiotics long-term using a PICC line in the past. Renal stones Past Surgical History Right foot debridement of wound removal of kidney stones Tonsillitis Reported Medications Reported Meds & Active Scripts Active Gabapentin 600 Mg Tab 600 Mg PO TID Novolog Inj (Insulin Aspart) 1,000 Unit/10 Ml Vial 1-9 Units SQ ACHS 30 Days sugars less than 70,(0)units; sugars 150-199,(1) unit; sugars 200-249,(3) units; sugars 250-299,(5) units; sugars 300-349,(7) units; sugars greater than 349,(9) units Reported Carol Arizmendi (Insulin Glargine) 100 Unit/Ml Pen 10 Units SQ BID Active Ordered Medications Current Medications Medications (Trade) Dose Ordered Sig/Anna Route Start Time Stop Time Status Last Admin (NS Flush) 2 ml UNSCH PRN IV FLUSH 10/07/17 16:45 (NS Flush) 2 ml BID IV FLUSH 10/07/17 21:00 10/08/17 09:00 (Narcan Inj) 0.4 mg UNSCH PRN IV PUSH 10/07/17 16:45 Pharmacy Profile Note 0 ml @ 0 mls/hr UNSCH OTHER 10/07/17 17:00 Piperacillin Sod/ Tazobactam Sod 100 ml @ 200 mls/hr Q6H IV 10/07/17 22:00 10/08/17 10:32 (Ultram) 50 mg Q12H PRN PO 10/07/17 17:30 10/07/17 21:32 Vancomycin HCl 1250 mg/Sodium Chloride 262.5 ml @ 250 mls/hr Q24H IV 10/08/17 11:00 10/08/17 11:52 Miscellaneous Information SPECIFIC LAB TO BE LUCERO... ONCE ONCE .XX 10/10/17 10:45 10/10/17 10:46 (Heparin Inj) 5,000 units Q8HR SQ 10/08/17 06:00 (D50w (Vial) Inj) 50 ml UNSCH PRN IV PUSH 10/08/17 10:30 (Glucagon Inj) 1 mg UNSCH PRN OTHER 10/08/17 10:30 (NovoLOG SUPPLEMENTAL SCALE) 1 ACHS SLIDING SCALE SQ 10/08/17 12:00 10/08/17 11:52 (Lactinex) 1 tab Q12HR PO 10/08/17 21:00 Sodium Chloride 1,000 ml @ 84 mls/hr [id number] IV 10/08/17 11:00 10/08/17 11:51 Family History Tobacco: quit 04/2017 Alcohol: sober for 21 years Illicit drug use: denies Social History Lives with mother at the moment, . Physical Exam Vital Signs Vital Signs Date Time Temp Pulse Resp B/P (MAP) Pulse Ox O2 Delivery O2 Flow Rate FiO2 10/08/17 12:00 99.1 102 20 121/62 (81) 93 10/08/17 08:00 98.7 94 20 116/59 (78) 93 10/08/17 04:00 97.8 99 20 99/53 (68) 94 10/08/17 03:52 98 10/08/17 00:00 98.6 111 20 118/66 (83) 94 10/07/17 23:41 108 10/07/17 20:00 97.8 112 19 118/58 (78) 96 10/07/17 19:53 115 10/07/17 19:07 10/07/17 18:51 99.8 99 22 104/58 (73) 96 Room Air 10/07/17 16:00 108 21 130/61 (84) 99 Room Air Physical Exam GENERAL: This is a well-nourished, well-developed patient, in no apparent distress. SKIN: No rashes, ecchymoses or lesions. Cool and dry. HEAD: Atraumatic. Normocephalic. No temporal or scalp tenderness. EYES: Pupils equal round and reactive. Extraocular motions intact. No scleral icterus. No injection or drainage. ENT: Nose without bleeding, purulent drainage or septal hematoma. Throat without erythema, tonsillar hypertrophy or exudate. Uvula midline. Airway patent. NECK: Trachea midline.Supple, nontender, no meningeal signs. CARDIOVASCULAR: Heart sounds audible. RESPIRATORY: Clear to auscultation. Breath sounds equal bilaterally. No wheezes , rales, or rhonchi. GASTROINTESTINAL: Abdomen soft, non-tender, nondistended. MUSCULOSKELETAL: Right foot with significant erythema, induration. There is a purulent looking area of drainage tender to palpation over the dorsal aspect of the fifth MPJ. There is also an eschar on the inner arch. NEUROLOGICAL: Awake and alert. Nonfocal exam Psych cooperative IV line sites with no evidence of infection. Laboratory Laboratory Tests Test 10/07/17 15:20 10/07/17 16:40 10/07/17 21:59 10/08/17 05:00 White Blood Count 23.6 18.0 Red Blood Count 3.39 2.85 Hemoglobin 9.3 7.9 Hematocrit 27.4 22.9 Mean Corpuscular Volume 81.0 80.3 Mean Corpuscular Hemoglobin 27.5 27.6 Mean Corpuscular Hemoglobin Concent 34.0 34.3 Red Cell Distribution Width 14.5 14.4 Platelet Count 160 149 Mean Platelet Volume 8.8 9.0 Neutrophils (%) (Auto) 88.8 85.8 Lymphocytes (%) (Auto) 2.0 3.3 Monocytes (%) (Auto) 8.7 10.4 Eosinophils (%) (Auto) 0.0 0.0 Basophils (%) (Auto) 0.5 0.5 Neutrophils # (Auto) 20.9 15.5 Lymphocytes # (Auto) 0.5 0.6 Monocytes # (Auto) 2.0 1.9 Eosinophils # (Auto) 0.0 0.0 Basophils # (Auto) 0.1 0.1 CBC Comment AUTO DIFF DIFF FINAL Differential Total Cells Counted 100 Neutrophils % (Manual) 69 Band Neutrophils % 20 Lymphocytes % 2 Monocytes % 9 Neutrophils # (Manual) 21.0 Differential Comment FINAL DIFF MANUAL Toxic Granulation 2+ Toxic Vacuolation PRESENT Dohle Bodies PRESENT Platelet Estimate NORMAL Platelet Morphology Comment NORMAL Erythrocyte Sedimentation Rate GREATER THAN 140 Prothrombin Time 11.5 Prothromb Time International Ratio 1.1 Activated Partial Thromboplast Time 24.6 Lactic Acid Level 1.8 Blood Urea Nitrogen 25 34 Creatinine 1.51 1.91 Random Glucose 273 192 Total Protein 7.1 Albumin 2.5 Calcium Level 8.7 8.0 Magnesium Level 2.0 Alkaline Phosphatase 147 Aspartate Amino Transf (AST/SGOT) 26 Alanine Aminotransferase (ALT/SGPT) 20 Total Bilirubin 0.6 Sodium Level 127 130 Potassium Level 3.5 3.5 Chloride Level 94 99 Carbon Dioxide Level 19.8 17.1 Anion Gap 13 14 Estimat Glomerular Filtration Rate 48 36 Total Creatine Kinase 111 114 Troponin I LESS THAN 0.02 LESS THAN 0.02 C-Reactive Protein 38.00 Lipase 55 Date/Time Source Procedure Growth Status 10/08/17 12:30 Blood Peripheral Aerobic Blood Culture Pending Received 10/08/17 12:30 Blood Peripheral Anaerobic Blood Culture Pending Received 10/07/17 15:15 Wound Foot Gram Stain - Final Resulted 10/07/17 15:15 Wound Culture - Preliminary Strep Not A,B D Resulted Result Diagram: 10/08/17 0500 10/08/17 0500 Imaging Last Impressions Foot MRI 10/08/17 0000 Signed Impressions: Service Date/Time: Sunday, October 08, 2017 09:17 - CONCLUSION: 1. Evidence of cellulitis with 1 cm abscess with peripheral enhancement in the dorsal soft tissues adjacent to the distal 5th digit metatarsus. 2. There is signal abnormality (T1 and T2 prolongation) in the distal metaphysis and epiphysis of the 5th metatarsal bone without definite enhancement in the marrow. This is located adjacent to the soft tissue abscess. Some signal abnormality (T2 prolongation) seen in the same region of the metatarsal bone prior MRI in April 2017, making the significance of the finding uncertain. Differential considerations include both chronic and acute osteomyelitis. Elías Keane MD Foot X-Ray 10/07/17 0000 Signed Impressions: Service Date/Time: Saturday, October 07, 2017 13:15 - CONCLUSION: 1. Prominent soft tissue swelling overlying the fifth proximal metatarsal at the MTP joint. No definitive erosive bony change to suggest osteomyelitis. Lupillo Webster MD Assessment and Plan Assessment and Plan Sepsis present on admission Gram-positive bacteremia secondary to right foot osteomyelitis and cellulitis Strep not AB,D infection Right foot fifth MPJ osteomyelitis Right foot cellulitis Diabetes type 2 uncontrolled Acute renal failure: Sepsis, prerenal Recommendations: Continue Zosyn IV Continue vancomycin IV Follow creatinine trend continues to increase will likely distribution agent. Follow cultures Follow clinically dw RN dw Patient and significant other in the room. Chuyita Quinteros MD Oct 08, 2017 14:14
[2017-10-08] MEDS ORDERED: DO NOT ADM ANY ANTICOAGULANT DRUGS PRN (17:25)
[2017-10-08] MEDS ORDERED: *morphine SULFATE 10 MG/ML PERIprocedure ONLY ONE (17:35)
[2017-10-08] MEDS ORDERED: MIDAZOLAM HCL 2 MG/2 ML VIAL ONE (17:36)
[2017-10-08] MEDS ORDERED: MORPHINE SULFATE 4 MG/ML INJ ONE (17:36)
--- NOTE | 2017-10-08 17:41 | HHI.PR ---
Immediate Post Op Note Procedure Date: Oct 08, 2017 Pre Op Diagnosis: right foot ankle ulcer abscess OM of the 5th metatarsal. Post Op Diagnosis: same Surgeon: Mitchel Ruth Kaitara Taraka(s): scrub Procedure: Right foot and ankle incision drainage, 5th metatarsal resection, 5th digit amputation Findings: infection tracked to posterior lateral ankle Complications: none Specimen(s) removed: deep cx foot and ankle, 5th metarsal resected and digit sent for path. Estimated blood loss: less 100mL Anesthesia: General, Local Drains: Other Fluids: see anethesia. Tourniquet time (min at mmHg) 250mmf 40min ankle Patient to: Other Patient Condition: Fair Implant/Devices: SEE IMPLANT LOG (if applicable) Date/Time of Procedure: SEE SURGICAL CARE RECORD Mitchel RuthM Oct 08, 2017 17:41
[2017-10-08] MEDS: LACTOBACILLUS ACIDOPHILUS TAB PO SCH (21:00)
[2017-10-08] MEDS: traMADol HCL 50 MG TAB PO PRN (22:01)
--- NOTE | 2017-10-08 22:48 | MP ---
cc: MARLENI MORTON M DATE OF SURGERY: 10/08/2017 PREOPERATIVE DIAGNOSIS: Right foot ankle abscess, osteomyelitis fifth metatarsal. POSTOPERATIVE DIAGNOSIS Right foot ankle abscess, osteomyelitis fifth metatarsal. PROCEDURES PERFORMED Right foot and ankle expansile incision and drainage fifth metatarsal resection of fifth digit amputation. FINDINGS Infection tracked from the fifth metatarsal head down to the base of fifth metatarsal along the peroneal tendons and into the posterior lateral ankle. Anterior arthrotomy was also performed of the medial ankle which yielded only clear joint fluid, however, culture taken at this time. SPECIMEN Deep wound culture of the ankle, lateral and medial, as well as fifth metatarsal was resected and fifth digit sent for pathological analysis. ESTIMATED BLOOD LOSS Less than 100 mL ANESTHESIA General, local, approximately 15 cc was used to infiltrate the proximal ankle. TOURNIQUET TIME: 40 minutes at a setting of 250 mmHg about the patient's ankle. PLAN OF ACTIVITY: Return to floor, possible need for repeat washout, wound Vac at a later date. Continue to monitor the patient's condition. JUSTIFICATION FOR PROCEDURE: The patient is a 57-year-old male who is admitted with extremely high white count showed signs of sepsis. MRI showed deep abscess and clinical signs of hindfoot and lateral infection. This appears to be a chronic issue. The patient was consented for foot incision and drainage, however, the preoperative findings correlated with the need to progress to the posterior lateral ankle. PROCEDURE IN DETAIL Under mild sedation the patient is brought to the operating room, placed on the operating room table in supine position. Following the induction of LMA, general anesthesia, the patient's right lower extremity was then scrubbed, prepped and draped in the usual aseptic fashion. The foot was elevated and exsanguinated and the previously placed midcalf tourniquet was inflated 250 mmHg and incision was made over the dorsal aspect of the fifth digit. This was the fishmouth type incision, sharply the fifth digit was disarticulated. There is noted be putrid odor, however no obvious gas bubbles. However, the smell was quite concerning for anaerobes. A linear incision was made along the metatarsal. There is noted to be black, dark jacques dusky metatarsal base. At this time, sharply the fifth metatarsal was dissected from the insertion of the peroneus brevis due to the severity of the infection and the putrid odor. Next, there was noted to be purulence that seemed to be tracking from the peroneal tendons. An incision was made just below the distal lateral fibula, purulence continued. An incision was made of the posterior lateral ankle where the abscess apparently stopped in the posterior lateral ankle. An anterior medial incision was made of the ankle to be certain we were not dealing with a sinus tract into the ankle joint. There is noted to be clear joint fluid. A culture was taken of this. The plantar and medial foot was then excised and explored beyond the deep fascia. There was no obvious tunneling or tracking into the deep plantar musculature. The wounds were then flushed with copious amounts of normal saline, pulse lavage, and then loosely coapted utilizing Prolene and packed open. Upon relieving the tourniquet there is a prompt hyperemic response of digits one through four. Bulky bandage placed. The patient was transferred from OR to PACU. We will continue to monitor the patient's foot, as it is a severe infection. I educated the on the severity of the infection. Realistic expectations are limb salvage, however, this is a bad infection that will need multiple surgeries. IVONNE Churchill /5:43 PM /10:35 PM
[2017-10-09] VITALS (9 sets, daily range): BP systolic 101–123; BP diastolic 59–70; PULSE 70–103; RESP 16–20; TEMP 97.9–101.8; O2SAT 92–97
[2017-10-09] MEDS ORDERED: ACETAMINOPHEN 325 MG TAB PO PRN (01:15)
[2017-10-09] MEDS: PIPERACIL-TAZO 4.5 GM PREMIX 100 ML IV SCH ×2 (03:50→09:27)
[2017-10-09] MEDS: HEPARIN SODIUM - SQ 10,000 UNITS/ML VIAL SQ SCH ×3 (06:27→21:03)
[2017-10-09] MEDS: traMADol HCL 50 MG TAB PO PRN (09:27)
[2017-10-09] MEDS: LACTOBACILLUS ACIDOPHILUS TAB PO SCH ×2 (09:27→21:02)
[2017-10-09] MEDS: SODIUM CHLORIDE 0.9% FLUSH 10 ML FLUSH IV FLUSH SCH ×2 (09:27→21:02)
[2017-10-09] MEDS: INSULIN ASPART SUPPLEMENTAL SCALE SQ SCH ×4 (09:28→21:03)
[2017-10-09 10:01] LABS: AUTOMATED NEUTROPHIL # 16.5 TH/MM3 (1.8-7.7); BASOPHIL # 0.1 TH/MM3 (0-0.2); BASOPHIL % 0.5 % (0.0-2.0); EOSINOPHIL % 0.3 % (0.0-4.0); HEMATOCRIT 21.3 % (39.0-51.0); HEMOGLOBIN 7.3 GM/DL (13.0-17.0); LYMPH % 5.9 % (9.0-44.0); LYMPHOCYTE # 1.2 TH/MM3 (1.0-4.8); MEAN CELL VOLUME 80.1 FL (80.0-100.0); MEAN CORPUSCULAR HEMOGLOBIN 27.5 PG (27.0-34.0); MEAN CORPUSCULAR HGB CONC 34.4 % (32.0-36.0); MEAN PLATELET VOLUME 8.8 FL (7.0-11.0); MONO % 8.9 % (0.0-8.0); MONOCYTE # 1.7 TH/MM3 (0-0.9); NEUT % 84.4 % (16.0-70.0); PLATELET COUNT 179 TH/MM3 (150-450); RED BLOOD COUNT 2.66 MIL/MM3 (4.50-5.90); RED CELL DISTRIBUTION WIDTH 14.6 % (11.6-17.2); WHITE BLOOD COUNT 19.5 TH/MM3 (4.0-11.0)
--- NOTE | 2017-10-09 10:06 | HHI.PR ---
Subjective Remarks Follow-up sepsis/diabetic foot infection/bacteremia 10/08/17-patient seen and examined, afebrile and currently nothing by mouth however patient has not consented for any surgery yet. Blood cultures positive 4. Plan for MRI of the foot 10/09/17-patient seen and examined, he is s/p Right foot and ankle incision drainage, 5th metatarsal resection, 5th digit amputation and complained of throbbing pain this a.m. MAXIMUM TEMPERATURE 101.8 at midnight however patient is current afebrile. Objective Vitals Vital Signs Date Time Temp Pulse Resp B/P (MAP) Pulse Ox O2 Delivery O2 Flow Rate FiO2 10/09/17 08:00 97.9 82 20 101/62 (75) 93 10/09/17 03:52 88 10/09/17 03:48 Nasal Cannula 2.00 10/09/17 03:48 99.2 88 20 115/62 (79) 96 10/09/17 00:18 101.8 103 16 112/59 (76) 96 10/09/17 00:18 Nasal Cannula 2.00 10/09/17 00:02 103 10/08/17 19:30 101 10/08/17 17:55 98.5 92 16 104/65 (78) 95 Nasal Cannula 2 10/08/17 17:45 95 16 105/61 (76) 98 Nasal Cannula 3 10/08/17 17:30 96 16 109/62 (78) 97 Nasal Cannula 3 10/08/17 17:20 98.3 93 20 107/63 (78) 96 Nasal Cannula 3 10/08/17 12:00 99.1 102 20 121/62 (81) 93 I/O 10/08/17 10/08/17 10/08/17 10/09/17 10/09/17 10/09/17 07:00 15:00 23:00 07:00 15:00 23:00 Intake Total 0 ml 1400 ml 1801 ml Output Total 30 ml 900 ml Balance 0 ml 1370 ml 901 ml Intake Oral 0 ml 880 ml IV Total 1400 ml 921 ml Output Urine Total 900 ml Estimated Blood Loss 30 ml # Voids 3 0 2 # Bowel Movements 1 Result Diagram: 10/08/17 0500 10/08/17 0500 Imaging Last Impressions Foot MRI 10/08/17 0000 Signed Impressions: Service Date/Time: Sunday, October 08, 2017 09:17 - CONCLUSION: 1. Evidence of cellulitis with 1 cm abscess with peripheral enhancement in the dorsal soft tissues adjacent to the distal 5th digit metatarsus. 2. There is signal abnormality (T1 and T2 prolongation) in the distal metaphysis and epiphysis of the 5th metatarsal bone without definite enhancement in the marrow. This is located adjacent to the soft tissue abscess. Some signal abnormality (T2 prolongation) seen in the same region of the metatarsal bone prior MRI in April 2017, making the significance of the finding uncertain. Differential considerations include both chronic and acute osteomyelitis. Elías Keane MD ADDENDUM: The abscess adjacent to the distal 5th metatarsus does extend proximally anterior and lateral to the 5th metatarsus and there is a 2nd fluid collection which measures 1.7 x 0.6 cm, located anterior and lateral to the base of the 5th metatarsus. This has similar signal characteristics and enhancement pattern as the distal fluid component. In addition, there is a thin amount of fluid tracking in a non-distending the peritoneal tendon sheath, this is only seen on the sagittal images. Elías Keane MD Foot X-Ray 10/07/17 0000 Signed Impressions: Service Date/Time: Saturday, October 07, 2017 13:15 - CONCLUSION: 1. Prominent soft tissue swelling overlying the fifth proximal metatarsal at the MTP joint. No definitive erosive bony change to suggest osteomyelitis. Lupillo Webster MD Objective Remarks GENERAL: NAD SKIN: Warm and dry. HEAD: Normocephalic. EYES: No scleral icterus. No injection or drainage. NECK: Supple, trachea midline. No JVD or lymphadenopathy. CARDIOVASCULAR: Regular rate and rhythm without murmurs, gallops, or rubs. RESPIRATORY: Breath sounds equal bilaterally. No accessory muscle use. GASTROINTESTINAL: Abdomen soft, non-tender, nondistended. MUSCULOSKELETAL: No cyanosis, or edema. dressing in place right foot BACK: Nontender without obvious deformity. No CVA tenderness. Procedures s/p Right foot and ankle incision drainage, 5th metatarsal resection, 5th digit amputation 10/08/17 A/P Problem List: (1) Osteomyelitis of foot ICD Code: M86.9 - Osteomyelitis, unspecified (2) Leukocytosis ICD Code: D72.829 - Elevated white blood cell count, unspecified (3) Dehydration with hyponatremia ICD Code: E87.1 - Hypo-osmolality and hyponatremia (4) Acute kidney injury ICD Code: N17.9 - Acute kidney failure, unspecified (5) Sepsis ICD Code: A41.9 - Sepsis, unspecified organism Status: Acute (6) Diabetic foot ulcer ICD Code: E11.621 - Type 2 diabetes mellitus with foot ulcer; L97.509 - Non- pressure chronic ulcer of other part of unspecified foot with unspecified severity Status: Acute (7) Acute renal failure superimposed on stage 3 chronic kidney disease ICD Code: N17.9 - Acute kidney failure, unspecified; N18.3 - Chronic kidney disease, stage 3 (moderate) (8) Bacteremia due to Gram-positive bacteria ICD Code: R78.81 - Bacteremia Assessment and Plan 57 year-old man with Sepsis Secondary to diabetic foot infection Secondary to vancomycin and Zosyn Monitor culture report Right foot osteomyelitis Diabetic foot infection s/p s/p Right foot and ankle incision drainage, 5th metatarsal resection, 5th digit amputation 10/08/17 Appreciate input from podiatry for possible amputation ID consult appreciated Continue with vancomycin and Zosyn Bacteremia with gram-positive cocci Repeat blood culture NTD ID consult appreciated Continue vancomycin and Zosyn Diabetes type 2 Hold oral hypoglycemic agent and continue medium sliding scale insulin resume basal insulin Acute on chronic kidney disease stage III - Continue NS 84 mL/hour Monitor Bun and creatinine and avoid all nephrotoxic drugs Diarrhea-Resolved -Completed p.o. Bactrim course 3 weeks ago, C. difficile DVT prophylaxis- heparin Problem Qualifiers (1) Sepsis: Qualified Codes: A41.9 - Sepsis, unspecified organism (2) Diabetic foot ulcer: Qualified Codes: E10.621 - Type 1 diabetes mellitus with foot ulcer; L97.419 - Non-pressure chronic ulcer of right heel and midfoot with unspecified severity Jairon Roberts MD Oct 09, 2017 10:06
[2017-10-09 10:09] LABS: BICARBONATE 19.9 MEQ/L (21.0-32.0); CALCIUM 7.6 MG/DL (8.5-10.1); CREATININE 1.94 MG/DL (0.60-1.30)
[2017-10-09] MEDS: SODIUM CHLOR 0.9% 1000 ML INJ 1,000 ML IV SCH ×2 (10:54→21:04)
[2017-10-09] MEDS: VANCOMYCIN INJ 1,250 MG in SODIUM CHLOR 0.9% 250 ML INJ 250 ML IV SCH (12:34)
[2017-10-09] MEDS: INSULIN DETEMIR 100 UNITS/ML VIAL SQ SCH ×2 (12:34→21:03)
[2017-10-09] MEDS: ACETAMINOPHEN/HYDROcodone 325 MG/5 MG TAB PO PRN ×2 (12:35→17:49)
[2017-10-09] MEDS: cefTRIAXone INJ 2,000 MG in SODIUM CHLORIDE 0.9% INJ 100 ML IV SCH (17:49)
--- NOTE | 2017-10-09 18:42 | PD.POD ---
Subjective Pain score: 3 Remarks Seen bedside with patient appears lucid however disorganized thoughts are noted Past Med/Surg/Social History Past Medical History Endocrine: REPORTS HX OF: Diabetes mellitus Genitourinary: REPORTS HX OF: Other history (Kidney stones ) Past Surgical History Musculoskeletal: REPORTS HX OF: Other musculoskeletal srg (Right foot 5th metatarsal I&D) Social History Smoking Status: Former Smoker Objective Vital Signs Vital Signs Date Time Temp Pulse Resp B/P (MAP) Pulse Ox O2 Delivery O2 Flow Rate FiO2 10/09/17 16:00 99.3 88 20 117/65 (82) 96 10/09/17 12:40 Nasal Cannula 2.00 10/09/17 12:00 80 10/09/17 12:00 98.3 84 20 107/66 (80) 97 10/09/17 08:00 Nasal Cannula 2.00 10/09/17 08:00 70 10/09/17 08:00 97.9 82 20 101/62 (75) 93 10/09/17 03:52 88 10/09/17 03:48 Nasal Cannula 2.00 10/09/17 03:48 99.2 88 20 115/62 (79) 96 10/09/17 00:18 101.8 103 16 112/59 (76) 96 10/09/17 00:18 Nasal Cannula 2.00 10/09/17 00:02 103 10/08/17 19:30 101 Coded Allergies: No Known Allergies (Unverified Adverse Reaction, Unknown, 09/15/17) Uncoded Allergies: danish dressing (Allergy, Severe, Anaphylaxis, 10/07/17) Medications and IVs Administered Medications Medications (Trade) Dose Ordered Sig/Anna Route PRN Reason Start Time Stop Time Status Last Admin Dose Admin Sodium Chloride (NS Flush) 2 ml BID IV FLUSH 10/07/17 21:00 10/09/17 09:27 Vancomycin HCl 1250 mg/Sodium Chloride 262.5 ml @ 250 mls/hr Q24H IV 10/08/17 11:00 10/09/17 12:34 Heparin Sodium (Porcine) (Heparin Inj) 5,000 units Q8HR SQ 10/08/17 06:00 10/09/17 12:34 Insulin Aspart (NovoLOG SUPPLEMENTAL SCALE) 1 ACHS SLIDING SCALE SQ 10/08/17 12:00 10/09/17 17:49 Lactobacillus Acidophilus (Lactinex) 1 tab Q12HR PO 10/08/17 21:00 10/09/17 09:27 Sodium Chloride 1,000 ml @ 84 mls/hr [id number] IV 10/08/17 11:00 10/09/17 10:54 Insulin Detemir (Levemir Inj) 10 units BID SQ 10/09/17 11:00 10/09/17 12:34 Acetaminophen/ Hydrocodone Bitart (Wynne 5-325 Mg) 1 tab Q4H PRN PO pain2-10 10/09/17 10:15 10/09/17 17:49 Ceftriaxone Sodium 2000 mg/ Sodium Chloride 100 ml @ 200 mls/hr Q24H IV 10/09/17 17:00 10/09/17 17:49 Other Results Laboratory Tests Test 10/08/17 05:00 10/09/17 08:32 White Blood Count 18.0 TH/MM3 19.5 TH/MM3 Red Blood Count 2.85 MIL/MM3 2.66 MIL/MM3 Hemoglobin 7.9 GM/DL 7.3 GM/DL Hematocrit 22.9 % 21.3 % Mean Corpuscular Volume 80.3 FL 80.1 FL Mean Corpuscular Hemoglobin 27.6 PG 27.5 PG Mean Corpuscular Hemoglobin Concent 34.3 % 34.4 % Red Cell Distribution Width 14.4 % 14.6 % Platelet Count 149 TH/MM3 179 TH/MM3 Mean Platelet Volume 9.0 FL 8.8 FL Neutrophils (%) (Auto) 85.8 % 84.4 % Lymphocytes (%) (Auto) 3.3 % 5.9 % Monocytes (%) (Auto) 10.4 % 8.9 % Eosinophils (%) (Auto) 0.0 % 0.3 % Basophils (%) (Auto) 0.5 % 0.5 % Neutrophils # (Auto) 15.5 TH/MM3 16.5 TH/MM3 Lymphocytes # (Auto) 0.6 TH/MM3 1.2 TH/MM3 Monocytes # (Auto) 1.9 TH/MM3 1.7 TH/MM3 Eosinophils # (Auto) 0.0 TH/MM3 0.0 TH/MM3 Basophils # (Auto) 0.1 TH/MM3 0.1 TH/MM3 CBC Comment DIFF FINAL AUTO DIFF Differential Comment AUTO DIFF CONFIRMED Laboratory Tests Test 10/07/17 21:59 10/08/17 05:00 10/09/17 08:32 Total Creatine Kinase 114 U/L Troponin I LESS THAN 0.02 NG/ML Blood Urea Nitrogen 34 MG/DL 41 MG/DL Creatinine 1.91 MG/DL 1.94 MG/DL Random Glucose 192 MG/DL 241 MG/DL Calcium Level 8.0 MG/DL 7.6 MG/DL Sodium Level 130 MEQ/L 132 MEQ/L Potassium Level 3.5 MEQ/L 3.3 MEQ/L Chloride Level 99 MEQ/L 102 MEQ/L Carbon Dioxide Level 17.1 MEQ/L 19.9 MEQ/L Anion Gap 14 MEQ/L 10 MEQ/L Estimat Glomerular Filtration Rate 36 ML/MIN 36 ML/MIN Microbiology Date/Time Source Procedure Growth Status 10/09/17 02:46 Blood Peripheral Aerobic Blood Culture Pending Received 10/09/17 02:46 Blood Peripheral Anaerobic Blood Culture Pending Received 10/09/17 02:41 Blood Peripheral Aerobic Blood Culture Pending Received 10/09/17 02:41 Blood Peripheral Anaerobic Blood Culture Pending Received 10/08/17 12:30 Blood Peripheral Aerobic Blood Culture - Preliminary NO GROWTH IN 1 DAY Resulted 10/08/17 12:30 Blood Peripheral Anaerobic Blood Culture - Preliminary NO GROWTH IN 1 DAY Resulted 10/08/17 12:25 Blood Peripheral Aerobic Blood Culture - Preliminary Gram Positive Cocci Resulted 10/08/17 12:25 Blood Peripheral Anaerobic Blood Culture - Preliminary NO GROWTH IN 1 DAY Resulted 10/07/17 15:20 Blood Peripheral Aerobic Blood Culture - Preliminary Streptococcus Species Resulted 10/07/17 15:20 Anaerobic Blood Culture - Preliminary Streptococcus Species Resulted 10/07/17 15:20 Blood Peripheral Aerobic Blood Culture - Preliminary Streptococcus Species Resulted 10/07/17 15:20 Anaerobic Blood Culture - Preliminary Streptococcus Species Resulted 10/08/17 16:45 Wound Ankle Fungal Smear - Final NO FUNGAL ELEMENTS SEEN. Resulted 10/08/17 16:45 Wound Ankle Fungal Culture Pending Resulted 10/08/17 16:45 Wound Ankle Acid Fast Stain Pending Worksheet 10/08/17 16:45 Wound Ankle Mycobacterial Culture Pending Worksheet 10/08/17 16:45 Wound Ankle Gram Stain - Final Resulted 10/08/17 16:45 Wound Culture - Preliminary Staphylococcus Aureus Resulted 10/08/17 16:45 Wound Toe Fungal Smear - Final NO FUNGAL ELEMENTS SEEN. Resulted 10/08/17 16:45 Wound Toe Fungal Culture Pending Resulted 10/08/17 16:45 Wound Toe Acid Fast Stain Pending Worksheet 10/08/17 16:45 Wound Toe Mycobacterial Culture Pending Worksheet 10/08/17 16:45 Wound Toe Gram Stain - Final Resulted 10/08/17 16:45 Wound Culture - Preliminary Strep Not A,B D Staphylococcus Aureus Resulted 10/07/17 15:15 Wound Foot Gram Stain - Final Resulted 10/07/17 15:15 Wound Culture - Preliminary Strep Not A,B D Staphylococcus Aureus Resulted RADIOLOGY CONSULTATION REPORT - Continued Ordered By: Mitchel Levi McKatelyn CORONADO MR#: [id number] : 1960 Attended By: Jairon Roberts MD Loc: N04A Age: 57 Copy To: NO PRIMARY CARE PHYSICIAN Pt Name: ROLAND JEREZ PRIMARY CARE PHYSICIAN [facility] Order #: [id number] Page 2 of 2 Signed Report #:[id number] Doctor Entered in [facility] DEPARTMENT OF RADIOLOGY [address] [place] [address] [address] [place] [address] [address] [place] [address] RADIOLOGY CONSULTATION REPORT Ordered By: Mitchel Levi Dede CORONADO MR#: [id number] : 1960 Attended By: Jairon Roberts MD Loc: N04A Age: 57 Copy To: NO PRIMARY CARE PHYSICIAN Bed: [facility] NO PRIMARY CARE PHYSICIAN Order #: [id number] Page 1 of 2 Signed Report #:[id number] Doctor Entered in [facility] ROLAND JEREZ Signed EXAM DATE/TIME: 10/07/2017 00:00 [facility] COMPARISON: ARTERIAL SEGMENTAL DOPPLER COMP W/TBI, May 13, 2017, 0:00. INDICATIONS : DIABETIC FOOT INFECTION, SEPSIS TECHNIQUE: Five-station segmental examination of the lower extremities was performed. Pulsed-cuff waveform tracings and pressures were recorded. Ankle-brachial indices and toe-brachial indices were calculated. PRESSURES (mmHg): Brachial (arm): Right 97 Left IV SITE Lower Thigh: Right 101 Left 122 Calf: Right 115 Left 98 Ankle: Right 106 Left 228 Toe: Right 49 Left 36 KHADRA: Right 1.09 Left 2.35 TBI: Right 0.51 Left 0.37 PULSED CUFF WAVEFORMS: Demonstrate normal amplitude bilaterally. CONCLUSION: 1. Nondiagnostic evaluation on the on the left secondary densely calcified vessels 2. Decreased toe brachial indices bilaterally characteristic of small vessel disease. 3. CT angiography of the abdominal aorta and lower extremities is recommended for further evaluation if clinically indicated. Chetan Escobedo MD on October 08, 2017 at 13:40 Board Certified Radiologist. This report was verified electronically. Physical Exam Remarks Right foot and ankle incision edges loosely coapted with serosanguineous drainage running from the distal lateral foot coursing just below the ankle some remaining cloudy drainage remains of the proximal posterior lateral ankle Forefoot plantar fifth metatarsal hemorrhagic callous with no signs of infection Assessment & Plan A/P Right foot ankle ulcer abscess osteomyelitis Left foot pre-ulcerative lesion. Postop day 1- infection of the posterior lateral ankle remains a concern. MRI ordered. Plan for incision and drainage debridement of the right foot and ankle with possible wound VAC tomorrow. Patient's family member seen bedside risks and benefits explained. Arterial ultrasound reviewed- vascular surgery consult for recommendations. Mitchel Aguayo DPM Oct 09, 2017 18:42
--- NOTE | 2017-10-09 19:11 | ECHRPT ---
Indication: POSS SEPSIS, ENDOCARDITIS CONCLUSIONS Normal left ventricular size. Wall thickness is normal. There is trace tricuspid valve regurgitation. The estimated pulmonary arterial pressure is 48.7 mmHg. ef=50-55% Normal left ventricular size. Wall thickness is normal. No atrial level shunt is demonstrated by color flow Doppler interrogation. There is trace tricuspid valve regurgitation. The estimated pulmonary arterial pressure is 48.7 mmHg. The transthoracic study is normal by two-dimensional, color flow imaging and Doppler interrogation. BP: 115 / 62 HR: 88 Rhythm: Sinus MEASUREMENTS (Male / Female) Normal Values Technical Quality:Fair 2D ECHO LV Diastolic Diameter PLAX 4.8 cm 4.2 - 5.9 / 3.9 - 5.3 cm LV Systolic Diameter PLAX 3.5 cm IVS Diastolic Thickness 0.9 cm 0.6 - 1.0 / 0.6 - 0.9 cm LVPW Diastolic Thickness 0.9 cm 0.6 - 1.0 / 0.6 - 0.9 cm LV Relative Wall Thickness 0.4 RV Internal Dim ED PLAX 2.3 cm LVOT Diameter 2.2 cm Aortic Root Diameter 3.5 cm LA Systolic Diameter LX 3.5 cm 3.0 - 4.0 / 2.7 - 3.8 cm M-MODE AV Cusp Separation MM 2.2 cm DOPPLER AV Peak Velocity 148.0 cm/s AV Peak Gradient 8.8 mmHg AV Mean Gradient 5.0 mmHg AV Velocity Time Integral 24.9 cm LVOT Peak Velocity 128.0 cm/s LVOT Peak Gradient 6.6 mmHg LVOT Velocity Time Integral 20.6 cm AV Area Cont Eq vti 3.1 cm AV Area Cont Eq pk 3.3 cm Mitral E Point Velocity 101.0 cm/s Mitral A Point Velocity 95.8 cm/s Mitral E to A Ratio 1.1 LV E' Lateral Velocity 16.7 cm/s Mitral E to LV E' Lateral Ratio 6.0 LV E' Septal Velocity 10.7 cm/s Mitral E to LV E' Septal Ratio 9.4 TR Peak Velocity 311.0 cm/s TR Peak Gradient 38.7 mmHg Right Atrial Pressure 10.0 mmHg Pulmonary Artery Systolic Pressu 48.7 mmHg Right Ventricular Systolic Press 48.7 mmHg PV Peak Velocity 68.4 cm/s PV Peak Gradient 1.9 mmHg FINDINGS LEFT VENTRICLE Normal left ventricular size. Wall thickness is normal. The left ventricular systolic function is normal with an estimated ejection fraction in the range of 60-65%. RIGHT VENTRICLE Normal right ventricular size and systolic function. LEFT ATRIUM The left atrial size is normal. RIGHT ATRIUM The right atrial size is normal. ATRIAL SEPTUM No atrial level shunt is demonstrated by color flow Doppler interrogation. AORTA The aortic root and proximal ascending aorta are normal in size on limited imaging. MITRAL VALVE Structurally normal mitral valve. No mitral valve stenosis or regurgitation. AORTIC VALVE Trileaflet aortic valve. No aortic valve stenosis or regurgitation. TRICUSPID VALVE There is trace tricuspid valve regurgitation. The estimated pulmonary arterial pressure is 48.7 mmHg. PULMONARY VALVE No pulmonary valve regurgitation or stenosis. VESSELS The inferior vena cava is normal in size. PERICARDIUM No pericardial effusion. Maulik Pritchard MD, FACC, FSCAI (Electronically Signed) Final Date:09 October 2017 19:10
--- NOTE | 2017-10-09 19:23 | HHI.IDPN ---
Subjective Subjective Remarks Mr. Braxton is a 57-year-old male with past medical history significant for diabetes type 2, prior diabetic foot ulcer treated in October 2016 thereafter was hospitalized from May 08, 2017 to May 29, 2017 due to foot ulcer. During that hospitalization patient underwent surgical debridement with wound VAC placement. Patient reports that he was seen by Dr. Pritchard during that admission. Patient reports that he was discharged on IV ceftriaxone using a PICC line. Patient had home health care visits him and continue to receive wound VAC changes at home. He also was subsequently seen at wound care clinic for ongoing wound care as well as [facility] for his primary care needs. Patient reports that his medications were recently adjusted and a new insulin was introduced. Patient reports that he was diagnosed with a possible staph or strep infection and has been on oral Bactrim approximately 2 weeks prior to admission. Due to worsening foot infection as well as possible reaction to the new insulin patient presented to the emergency department [facility]. Patient reports that he was having fevers, chills, loss of appetite and diarrhea for the past 2 days associated with frequent urination. Patient denies any dysuria. He reports dizziness and reported history of falls 3 days ago while on the toilet. Patient's reports that she was unaware of this history of fall. He denies any head injury. Patient reports hitting his right foot and shoulder but that he was able to get off the floor by himself. Patient had a sepsis workup initiated on admission. Wound cultures are positive for strep as well as blood cultures are now positive for gram-positive likely strep. Repeat blood cultures have been ordered. Podiatry is seeing the patient and there is a plan for surgical intervention and possible amputation of the involved digit. Infectious disease is consulted for evaluation and management of right fifth toe osteomyelitis with associated cellulitis, gram-positive bacteremia and sepsis. Overnight events reviewed. fever overnight No rash No diarrhea Had diarrhea earlier but was on stool softeners. No need for Cdiff unless persistent liquid stools more than 2 at least. ECHO being done bedside no vegetations but await official report. Antibiotics Zosyn IV Vanco IV Lines Line sites with no e.o infection Past Medical History Past Medical History DM II Right foot ulcer with possible osteomyelitis in the past. Has received IV antibiotics long-term using a PICC line in the past. Renal stones Past Surgical History Right foot debridement of wound removal of kidney stones Tonsillitis Allergies: Coded Allergies: No Known Allergies (Unverified Adverse Reaction, Unknown, 09/15/17) Uncoded Allergies: danish dressing (Allergy, Severe, Anaphylaxis, 10/07/17) Objective . Vital Signs Date Time Temp Pulse Resp B/P (MAP) Pulse Ox O2 Delivery O2 Flow Rate FiO2 10/09/17 19:00 Room Air 10/09/17 16:00 99.3 88 20 117/65 (82) 96 10/09/17 16:00 90 10/09/17 12:40 Nasal Cannula 2.00 10/09/17 12:00 80 10/09/17 12:00 98.3 84 20 107/66 (80) 97 10/09/17 08:00 Nasal Cannula 2.00 10/09/17 08:00 70 10/09/17 08:00 97.9 82 20 101/62 (75) 93 10/09/17 03:52 88 10/09/17 03:48 Nasal Cannula 2.00 10/09/17 03:48 99.2 88 20 115/62 (79) 96 10/09/17 00:18 101.8 103 16 112/59 (76) 96 10/09/17 00:18 Nasal Cannula 2.00 10/09/17 00:02 103 10/08/17 19:30 101 10/09/17 10/09/17 10/10/17 15:00 23:00 07:00 Intake Total 720 ml Output Total 900 ml Balance -180 ml Intake Oral 720 ml Output Urine Total 900 ml # Bowel Movements 2 . Laboratory Tests Test 10/08/17 05:00 10/09/17 08:32 White Blood Count 18.0 TH/MM3 19.5 TH/MM3 Red Blood Count 2.85 MIL/MM3 2.66 MIL/MM3 Hemoglobin 7.9 GM/DL 7.3 GM/DL Hematocrit 22.9 % 21.3 % Mean Corpuscular Volume 80.3 FL 80.1 FL Mean Corpuscular Hemoglobin 27.6 PG 27.5 PG Mean Corpuscular Hemoglobin Concent 34.3 % 34.4 % Red Cell Distribution Width 14.4 % 14.6 % Platelet Count 149 TH/MM3 179 TH/MM3 Mean Platelet Volume 9.0 FL 8.8 FL Neutrophils (%) (Auto) 85.8 % 84.4 % Lymphocytes (%) (Auto) 3.3 % 5.9 % Monocytes (%) (Auto) 10.4 % 8.9 % Eosinophils (%) (Auto) 0.0 % 0.3 % Basophils (%) (Auto) 0.5 % 0.5 % Neutrophils # (Auto) 15.5 TH/MM3 16.5 TH/MM3 Lymphocytes # (Auto) 0.6 TH/MM3 1.2 TH/MM3 Monocytes # (Auto) 1.9 TH/MM3 1.7 TH/MM3 Eosinophils # (Auto) 0.0 TH/MM3 0.0 TH/MM3 Basophils # (Auto) 0.1 TH/MM3 0.1 TH/MM3 CBC Comment DIFF FINAL AUTO DIFF Differential Comment AUTO DIFF CONFIRMED Laboratory Tests Test 10/07/17 21:59 10/08/17 05:00 10/09/17 08:32 Total Creatine Kinase 114 U/L Troponin I LESS THAN 0.02 NG/ML Blood Urea Nitrogen 34 MG/DL 41 MG/DL Creatinine 1.91 MG/DL 1.94 MG/DL Random Glucose 192 MG/DL 241 MG/DL Calcium Level 8.0 MG/DL 7.6 MG/DL Sodium Level 130 MEQ/L 132 MEQ/L Potassium Level 3.5 MEQ/L 3.3 MEQ/L Chloride Level 99 MEQ/L 102 MEQ/L Carbon Dioxide Level 17.1 MEQ/L 19.9 MEQ/L Anion Gap 14 MEQ/L 10 MEQ/L Estimat Glomerular Filtration Rate 36 ML/MIN 36 ML/MIN Microbiology Date/Time Source Procedure Growth Status 10/09/17 02:46 Blood Peripheral Aerobic Blood Culture Pending Received 10/09/17 02:46 Blood Peripheral Anaerobic Blood Culture Pending Received 10/09/17 02:41 Blood Peripheral Aerobic Blood Culture Pending Received 10/09/17 02:41 Blood Peripheral Anaerobic Blood Culture Pending Received 10/08/17 12:30 Blood Peripheral Aerobic Blood Culture - Preliminary NO GROWTH IN 1 DAY Resulted 10/08/17 12:30 Blood Peripheral Anaerobic Blood Culture - Preliminary NO GROWTH IN 1 DAY Resulted 10/08/17 12:25 Blood Peripheral Aerobic Blood Culture - Preliminary Gram Positive Cocci Resulted 10/08/17 12:25 Blood Peripheral Anaerobic Blood Culture - Preliminary NO GROWTH IN 1 DAY Resulted 10/07/17 15:20 Blood Peripheral Aerobic Blood Culture - Preliminary Streptococcus Species Resulted 10/07/17 15:20 Anaerobic Blood Culture - Preliminary Streptococcus Species Resulted 10/07/17 15:20 Blood Peripheral Aerobic Blood Culture - Preliminary Streptococcus Species Resulted 10/07/17 15:20 Anaerobic Blood Culture - Preliminary Streptococcus Species Resulted 10/08/17 16:45 Wound Ankle Fungal Smear - Final NO FUNGAL ELEMENTS SEEN. Resulted 10/08/17 16:45 Wound Ankle Fungal Culture Pending Resulted 10/08/17 16:45 Wound Ankle Acid Fast Stain Pending Worksheet 10/08/17 16:45 Wound Ankle Mycobacterial Culture Pending Worksheet 10/08/17 16:45 Wound Ankle Gram Stain - Final Resulted 10/08/17 16:45 Wound Culture - Preliminary Staphylococcus Aureus Resulted 10/08/17 16:45 Wound Toe Fungal Smear - Final NO FUNGAL ELEMENTS SEEN. Resulted 10/08/17 16:45 Wound Toe Fungal Culture Pending Resulted 10/08/17 16:45 Wound Toe Acid Fast Stain Pending Worksheet 10/08/17 16:45 Wound Toe Mycobacterial Culture Pending Worksheet 10/08/17 16:45 Wound Toe Gram Stain - Final Resulted 10/08/17 16:45 Wound Culture - Preliminary Strep Not A,B D Staphylococcus Aureus Resulted 10/07/17 15:15 Wound Foot Gram Stain - Final Resulted 10/07/17 15:15 Wound Culture - Preliminary Strep Not A,B D Staphylococcus Aureus Resulted Imaging Last Impressions Foot MRI 10/08/17 0000 Signed Impressions: Service Date/Time: Sunday, October 08, 2017 09:17 - CONCLUSION: 1. Evidence of cellulitis with 1 cm abscess with peripheral enhancement in the dorsal soft tissues adjacent to the distal 5th digit metatarsus. 2. There is signal abnormality (T1 and T2 prolongation) in the distal metaphysis and epiphysis of the 5th metatarsal bone without definite enhancement in the marrow. This is located adjacent to the soft tissue abscess. Some signal abnormality (T2 prolongation) seen in the same region of the metatarsal bone prior MRI in April 2017, making the significance of the finding uncertain. Differential considerations include both chronic and acute osteomyelitis. Elías Keane MD ADDENDUM: The abscess adjacent to the distal 5th metatarsus does extend proximally anterior and lateral to the 5th metatarsus and there is a 2nd fluid collection which measures 1.7 x 0.6 cm, located anterior and lateral to the base of the 5th metatarsus. This has similar signal characteristics and enhancement pattern as the distal fluid component. In addition, there is a thin amount of fluid tracking in a non-distending the peritoneal tendon sheath, this is only seen on the sagittal images. Elías Keane MD Foot X-Ray 10/07/17 0000 Signed Impressions: Service Date/Time: Saturday, October 07, 2017 13:15 - CONCLUSION: 1. Prominent soft tissue swelling overlying the fifth proximal metatarsal at the MTP joint. No definitive erosive bony change to suggest osteomyelitis. Lupillo Webster MD Physical Exam GENERAL: This is a well-nourished, well-developed patient, in no apparent distress. SKIN: No rashes, ecchymoses or lesions. Cool and dry. HEAD: Atraumatic. Normocephalic. No temporal or scalp tenderness. EYES: Pupils equal round and reactive. Extraocular motions intact. No scleral icterus. No injection or drainage. ENT: Nose without bleeding, purulent drainage or septal hematoma. Throat without erythema, tonsillar hypertrophy or exudate. Uvula midline. Airway patent. NECK: Trachea midline.Supple, nontender, no meningeal signs. CARDIOVASCULAR: Heart sounds audible. RESPIRATORY: Clear to auscultation. Breath sounds equal bilaterally. No wheezes , rales, or rhonchi. GASTROINTESTINAL: Abdomen soft, non-tender, nondistended. MUSCULOSKELETAL: Right foot in post op dressing. NEUROLOGICAL: Awake and alert. Nonfocal exam Psych cooperative IV line sites with no evidence of infection. Assessment & Plan Remarks Sepsis present on admission Strep bacteremia secondary to right foot osteomyelitis and cellulitis Strep not AB,D and Staph infection Right foot fifth MPJ osteomyelitis Right foot cellulitis Diabetes type 2 uncontrolled Acute renal failure: Sepsis, prerenal Recommendations: DC Zosyn IV Start Ceftriaxone IV Continue vancomycin IV for now pending ID of Staph. Follow creatinine trend continues to increase will likely exchange administrator. Follow ECHO Follow cultures Follow clinically dw RN dw Patient and significant other in the room. I will be off 10/10/2017 to 10/12/2017. Other ID MDs covering for me. Please check with [facility] call center. Chuyita Quinteros MD Oct 09, 2017 19:23
[2017-10-10] VITALS (13 sets, daily range): BP systolic 126–150; BP diastolic 67–80; PULSE 85–99; RESP 16–19; TEMP 98.1–102.8; O2SAT 91–97
[2017-10-10] MEDS: ACETAMINOPHEN/HYDROcodone 325 MG/5 MG TAB PO PRN ×4 (01:07→21:28)
[2017-10-10] MEDS: HEPARIN SODIUM - SQ 10,000 UNITS/ML VIAL SQ SCH ×3 (05:49→21:29)
[2017-10-10] MEDS ORDERED: ACETAMINOPHEN 325 MG TAB PO PRN (07:30)
[2017-10-10] MEDS ORDERED: SODIUM CHLOR 0.9% 250 ML INJ 250 ML IV ONE (07:30)
[2017-10-10] MEDS ORDERED: diphenhydrAMINE HCL 25 MG CAP PO PRN (07:30)
[2017-10-10] MEDS: INSULIN ASPART SUPPLEMENTAL SCALE SQ SCH ×4 (08:00→21:29)
[2017-10-10] MEDS: SODIUM CHLORIDE 0.9% FLUSH 10 ML FLUSH IV FLUSH SCH ×2 (09:00→21:27)
[2017-10-10] MEDS: INSULIN DETEMIR 100 UNITS/ML VIAL SQ SCH ×2 (09:00→21:29)
[2017-10-10] MEDS: LACTOBACILLUS ACIDOPHILUS TAB PO SCH ×2 (09:00→21:27)
--- NOTE | 2017-10-10 10:21 | HHI.PR ---
Subjective Remarks Follow-up sepsis/diabetic foot infection/bacteremia 10/08/17-patient seen and examined, afebrile and currently nothing by mouth however patient has not consented for any surgery yet. Blood cultures positive 4. Plan for MRI of the foot 10/09/17-patient seen and examined, he is s/p Right foot and ankle incision drainage, 5th metatarsal resection, 5th digit amputation and complained of throbbing pain this a.m. MAXIMUM TEMPERATURE 101.8 at midnight however patient is current afebrile. 10/10/17-patient seen and examined, states he refused to have MRI of the ankle done yesterday cause of his med of possible chemical marijuana in that room which made him fell uncomfortable. Tmax 102.8 4 AM however currently afebrile Objective Vitals Vital Signs Date Time Temp Pulse Resp B/P (MAP) Pulse Ox O2 Delivery O2 Flow Rate FiO2 10/10/17 08:32 Room Air 10/10/17 08:00 98.1 87 19 126/80 (95) 93 10/10/17 04:00 98 10/10/17 03:57 102.8 99 16 150/79 (102) 91 10/10/17 03:37 96 Nasal Cannula 1.00 10/10/17 00:00 85 10/10/17 00:00 Room Air 10/09/17 23:35 99.2 88 16 123/70 (87) 92 10/09/17 22:00 Room Air 10/09/17 20:00 95 10/09/17 20:00 98.7 94 16 117/67 (84) 92 10/09/17 19:00 Room Air 10/09/17 16:00 99.3 88 20 117/65 (82) 96 10/09/17 16:00 90 10/09/17 12:40 Nasal Cannula 2.00 10/09/17 12:00 80 10/09/17 12:00 98.3 84 20 107/66 (80) 97 I/O 10/09/17 10/09/17 10/09/17 10/10/17 10/10/17 10/10/17 07:00 15:00 23:00 07:00 15:00 23:00 Intake Total 1801 ml 720 ml 120 ml Output Total 900 ml 900 ml 550 ml Balance 901 ml -180 ml -430 ml Intake Oral 880 ml 720 ml 120 ml IV Total 921 ml Output Urine Total 900 ml 900 ml 550 ml # Voids 2 # Bowel Movements 1 2 0 Result Diagram: 10/09/17 0832 10/09/17 0832 Objective Remarks GENERAL: NAD SKIN: Warm and dry. HEAD: Normocephalic. EYES: No scleral icterus. No injection or drainage. NECK: Supple, trachea midline. No JVD or lymphadenopathy. CARDIOVASCULAR: Regular rate and rhythm without murmurs, gallops, or rubs. RESPIRATORY: Breath sounds equal bilaterally. No accessory muscle use. GASTROINTESTINAL: Abdomen soft, non-tender, nondistended. MUSCULOSKELETAL: No cyanosis, or edema. dressing in place right foot BACK: Nontender without obvious deformity. No CVA tenderness. Procedures s/p Right foot and ankle incision drainage, 5th metatarsal resection, 5th digit amputation 10/08/17 A/P Problem List: (1) Osteomyelitis of foot ICD Code: M86.9 - Osteomyelitis, unspecified (2) Leukocytosis ICD Code: D72.829 - Elevated white blood cell count, unspecified (3) Dehydration with hyponatremia ICD Code: E87.1 - Hypo-osmolality and hyponatremia (4) Acute kidney injury ICD Code: N17.9 - Acute kidney failure, unspecified (5) Sepsis ICD Code: A41.9 - Sepsis, unspecified organism Status: Acute (6) Diabetic foot ulcer ICD Code: E11.621 - Type 2 diabetes mellitus with foot ulcer; L97.509 - Non- pressure chronic ulcer of other part of unspecified foot with unspecified severity Status: Acute (7) Acute renal failure superimposed on stage 3 chronic kidney disease ICD Code: N17.9 - Acute kidney failure, unspecified; N18.3 - Chronic kidney disease, stage 3 (moderate) (8) Bacteremia due to Gram-positive bacteria ICD Code: R78.81 - Bacteremia (9) Postoperative anemia ICD Code: D64.9 - Anemia, unspecified Assessment and Plan 57 year-old man with Sepsis Secondary to diabetic foot infection Secondary to Rocephin and Zosyn Monitor culture report Right foot osteomyelitis Diabetic foot infection s/p s/p Right foot and ankle incision drainage, 5th metatarsal resection, 5th digit amputation 10/08/17 Appreciate input from podiatry for possible amputation ID consult appreciated Continue with Rocephin and Zosyn Wound culture positive for Staph and Strep not A, B, D Bacteremia with gram-positive cocci Repeat blood culture NTD ID consult appreciated Continue Rocephin and Zosyn Wound culture positive for Staph and Strep not A, B, D Postoperatively anemia Transfuse 2 units packed red cell Monitor H&H Diabetes type 2 Increase Levemir to 15units BIQ and continue medium sliding scale insulin Acute on chronic kidney disease stage III - Continue NS 84 mL/hour Monitor Bun and creatinine and avoid all nephrotoxic drugs Diarrhea-Resolved Hypokalemia Give potassium 60 mEq 1 now and monitor electrolyte DVT prophylaxis- heparin Problem Qualifiers (1) Sepsis: Qualified Codes: A41.9 - Sepsis, unspecified organism (2) Diabetic foot ulcer: Qualified Codes: E10.621 - Type 1 diabetes mellitus with foot ulcer; L97.419 - Non-pressure chronic ulcer of right heel and midfoot with unspecified severity Jairon Roberts MD Oct 10, 2017 10:21
[2017-10-10] MEDS ORDERED: PHARMACY ORDERED LAB ONE (10:45)
[2017-10-10] MEDS ORDERED: DEXAMETHASONE SOD PHOS 4 MG/ML VIAL IV ONE (12:00)
[2017-10-10] MEDS ORDERED: ePHEDrine/NS 25 MG/5 ML SYRINGE IV ONE (12:00)
[2017-10-10] MEDS ORDERED: PROPOFOL 200 MG/20 ML AMP IV ONE (12:00)
[2017-10-10] MEDS ORDERED: PHENYLEPH/NS 1000 MCG/10 ML SYR IV ONE (12:00)
[2017-10-10] MEDS ORDERED: LIDOCAINE HCL 1% PF 5 ML SYRINGE OTHER ONE (12:00)
[2017-10-10] MEDS ORDERED: ONDANSETRON HCL 4 MG/2 ML VIAL IV ONE (12:00)
[2017-10-10] MEDS ORDERED: BUPIVACAINE HCL PF 0.25% 30 ML VIAL ONE (12:08)
[2017-10-10] MEDS ORDERED: NEOMYCIN/POLYMYXIN 1 ML G.U. IRRIGANT ONE (12:13)
[2017-10-10] MEDS: VANCOMYCIN INJ 1,250 MG in SODIUM CHLOR 0.9% 250 ML INJ 250 ML IV SCH (12:14)
[2017-10-10] MEDS: SODIUM CHLOR 0.9% 1000 ML INJ 1,000 ML IV SCH ×2 (12:14→22:59)
--- NOTE | 2017-10-10 14:28 | PD.OP ---
Operative Report Right foot ankle abscess ulcer Postoperative Diagnosis: same Procedure: Right foot ankle expansile incision and drainage Anesthesia: LMA general, estimated blood loss less than 30 mL, no tourniquet used, complication none, deep wound culture taken. Surgeon: Mitchel Ruth Cardiopulmonary Technologist(s): scrub Operation and Findings: Indication for surgery: Bandage change last night revealed purulence from the proximal lateral ankle. The patient was informed of this negative finding and the need to return to the OR for irrigation incision drainage and debridement. MRI was ordered to rule out further spread of infection the patient refused. Procedure in detail: Under mild sedation the patient's from the operating room placed on the operative supine position. Following the induction of LMA general anesthesia the patient was then scrubbed prepped and draped usual aseptic fashion. The patient was positioned lateral. Sutures removed from the lateral foot and ankle revealing overall healthy tissue however there is noted to be a sinus tract at the lateral Lisfranc joint to medial that probed to the dorsum of the foot with pus material. At this time, the medial midfoot incision was made sharp blunt dissection was carried down the anterior tibialis tendon and medial arch was explored there is noted to be moderate purulent material this was irrigated and debrided. The wound was then flushed with 3 L of pulse lavage normal saline. Packed open loose retention sutures applied. Of note the patient continues to have signs of abscess in the foot, deep culture taken. Likely will need multiple repeat irrigation and debridement. Mitchel Ruth DPM Oct 10, 2017 14:28
[2017-10-10] MEDS ORDERED: DO NOT ADM ANY ANTICOAGULANT DRUGS PRN (14:30)
[2017-10-10] MEDS ORDERED: MIDAZOLAM HCL 2 MG/2 ML VIAL ONE (14:39)
[2017-10-10] MEDS: cefTRIAXone INJ 2,000 MG in SODIUM CHLORIDE 0.9% INJ 100 ML IV SCH (16:44)
[2017-10-11] VITALS (9 sets, daily range): BP systolic 129–139; BP diastolic 71–82; PULSE 78–85; RESP 16–18; TEMP 97.9–98.4; O2SAT 94–98
[2017-10-11] MEDS: ACETAMINOPHEN/HYDROcodone 325 MG/5 MG TAB PO PRN ×4 (05:14→19:49)
[2017-10-11] MEDS: HEPARIN SODIUM - SQ 10,000 UNITS/ML VIAL SQ SCH ×3 (05:14→22:00)
[2017-10-11] MEDS ORDERED: VANCOMYCIN INJ 1,250 MG in SODIUM CHLOR 0.9% 250 ML INJ 250 ML IV SCH (06:00)
[2017-10-11] MEDS: INSULIN ASPART SUPPLEMENTAL SCALE SQ SCH ×4 (08:00→22:56)
--- NOTE | 2017-10-11 08:06 | HHI.PR ---
Subjective Remarks Follow up for bacteremia, diabetic foot infection. Patient is currently doing well. No acute concerns. No fever, chills. Objective Vitals Vital Signs Date Time Temp Pulse Resp B/P (MAP) Pulse Ox O2 Delivery O2 Flow Rate FiO2 10/11/17 07:10 Room Air 10/11/17 04:00 80 10/11/17 04:00 Room Air 10/11/17 04:00 98.2 85 16 131/75 (93) 98 10/11/17 00:12 98.0 81 16 129/71 (90) 96 10/11/17 00:00 Room Air 10/11/17 00:00 82 10/10/17 22:57 98.2 86 16 137/71 97 10/10/17 20:27 98.4 89 16 128/72 95 10/10/17 20:09 98.2 89 18 126/69 94 10/10/17 20:00 88 10/10/17 20:00 Room Air 10/10/17 19:47 98.9 92 18 129/67 (87) 95 10/10/17 19:46 98.9 92 18 129/67 95 10/10/17 16:32 99.8 96 18 142/79 96 10/10/17 16:00 99.8 96 18 142/79 (100) 96 10/10/17 15:00 90 16 145/74 (97) 97 Nasal Cannula 2 10/10/17 14:45 90 16 139/78 (98) 95 Nasal Cannula 2 10/10/17 14:30 98.1 98 16 127/73 (91) 91 Nasal Cannula 2 10/10/17 12:00 90 10/10/17 08:32 Room Air I/O 10/10/17 10/10/17 10/10/17 10/11/17 10/11/17 10/11/17 07:00 15:00 23:00 07:00 15:00 23:00 Intake Total 120 ml 650 ml 2040 ml 262.5 ml Output Total 550 ml 255 ml 300 ml 600 ml Balance -430 ml 395 ml 1740 ml -337.5 ml Intake Oral 120 ml 240 ml 0 ml IV Total 50 ml 1000 ml 262.5 ml Packed Cells 800 ml Other 600 ml Output Urine Total 550 ml 225 ml 300 ml 600 ml Estimated Blood Loss 30 ml # Voids 1 # Bowel Movements 0 1 Result Diagram: 2/22/18 0832 10/09/17 0832 Imaging Last Impressions Ankle MRI 10/11/17 0000 Signed Impressions: Service Date/Time: Wednesday, October 11, 2017 09:41 - CONCLUSION: 1. No definite areas of osteomyelitis. There is some edema within the lateral cuboid adjacent to the suspected surgical defect which is likely reactive. T1 signal is maintained. 2. Multiple areas of focal edema within the midfoot mainly related to the subarticular regions likely related to underlying arthritic change. 3. The patient appears to be status post resection of the fifth metatarsal with post surgical change at the lateral hind and midfoot and a small focus of air seen adjacent to the calcaneus. Wm Dupree MD Foot MRI 10/08/17 0000 Signed Impressions: Service Date/Time: Sunday, October 08, 2017 09:17 - CONCLUSION: 1. Evidence of cellulitis with 1 cm abscess with peripheral enhancement in the dorsal soft tissues adjacent to the distal 5th digit metatarsus. 2. There is signal abnormality (T1 and T2 prolongation) in the distal metaphysis and epiphysis of the 5th metatarsal bone without definite enhancement in the marrow. This is located adjacent to the soft tissue abscess. Some signal abnormality (T2 prolongation) seen in the same region of the metatarsal bone prior MRI in April 2017, making the significance of the finding uncertain. Differential considerations include both chronic and acute osteomyelitis. Elías Keane MD ADDENDUM: The abscess adjacent to the distal 5th metatarsus does extend proximally anterior and lateral to the 5th metatarsus and there is a 2nd fluid collection which measures 1.7 x 0.6 cm, located anterior and lateral to the base of the 5th metatarsus. This has similar signal characteristics and enhancement pattern as the distal fluid component. In addition, there is a thin amount of fluid tracking in a non-distending the peritoneal tendon sheath, this is only seen on the sagittal images. Elías Keane MD Foot X-Ray 10/07/17 0000 Signed Impressions: Service Date/Time: Saturday, October 07, 2017 13:15 - CONCLUSION: 1. Prominent soft tissue swelling overlying the fifth proximal metatarsal at the MTP joint. No definitive erosive bony change to suggest osteomyelitis. Lupillo Webster MD Objective Remarks GENERAL: Alert, NAD. SKIN: Warm and dry. HEAD: Normocephalic. EYES: No scleral icterus. No injection or drainage. NECK: Supple, trachea midline. No JVD or lymphadenopathy. CARDIOVASCULAR: Regular rate and rhythm without murmurs, gallops, or rubs. RESPIRATORY: Breath sounds equal bilaterally. No accessory muscle use. GASTROINTESTINAL: Abdomen soft, non-tender, nondistended. MUSCULOSKELETAL: No cyanosis, or edema. Right foot wrapped in dressing. Left foot, lateral side has an old wound. BACK: Nontender without obvious deformity. No CVA tenderness. Procedures s/p Right foot and ankle incision drainage, 5th metatarsal resection, 5th digit amputation 10/08/17 A/P Problem List: (1) Osteomyelitis of foot ICD Code: M86.9 - Osteomyelitis, unspecified (2) Leukocytosis ICD Code: D72.829 - Elevated white blood cell count, unspecified (3) Dehydration with hyponatremia ICD Code: E87.1 - Hypo-osmolality and hyponatremia (4) Acute kidney injury ICD Code: N17.9 - Acute kidney failure, unspecified (5) Sepsis ICD Code: A41.9 - Sepsis, unspecified organism Status: Acute (6) Diabetic foot ulcer ICD Code: E11.621 - Type 2 diabetes mellitus with foot ulcer; L97.509 - Non- pressure chronic ulcer of other part of unspecified foot with unspecified severity Status: Acute (7) Acute renal failure superimposed on stage 3 chronic kidney disease ICD Code: N17.9 - Acute kidney failure, unspecified; N18.3 - Chronic kidney disease, stage 3 (moderate) (8) Bacteremia due to Gram-positive bacteria ICD Code: R78.81 - Bacteremia (9) Postoperative anemia ICD Code: D64.9 - Anemia, unspecified Assessment and Plan 57 year-old man with Sepsis - Secondary to diabetic foot infection Right foot osteomyelitis Diabetic foot infection Bacteremia with gram-positive cocci s/p Right foot and ankle incision drainage, 5th metatarsal resection, 5th digit amputation 10/08/17 ID and podiatry following. Wound culture positive for Staph and Strep not A, B, D Per ID, abx switched from Rocephin,Vanco to Cefazolin 2g Q8hrs. Postoperatively anemia Transfused 2 units packed red cell. Hgb 11.0 on 10/11/2017. Diabetes type 2 Will change insulin regimen to Levemir 20 units QHS. Continue sliding scale. Will also add pre-meal insulin. Goal glucose in hospital: 140 - 180. Acute kidney injury chronic kidney disease stage III Creatinine improved from around 1.9 to 1.34. Continue NS 84 mL/hour Monitor Bun and creatinine and avoid all nephrotoxic drugs Hypokalemia - resolved. Full code. DVT prophylaxis- heparin Problem Qualifiers (1) Sepsis: Qualified Codes: A41.9 - Sepsis, unspecified organism (2) Diabetic foot ulcer: Qualified Codes: E10.621 - Type 1 diabetes mellitus with foot ulcer; L97.419 - Non-pressure chronic ulcer of right heel and midfoot with unspecified severity Christian Joe DO Oct 11, 2017 08:06
[2017-10-11] MEDS: LACTOBACILLUS ACIDOPHILUS TAB PO SCH ×2 (08:09→19:48)
[2017-10-11] MEDS: INSULIN DETEMIR 100 UNITS/ML VIAL SQ SCH (08:09)
[2017-10-11] MEDS: SODIUM CHLORIDE 0.9% FLUSH 10 ML FLUSH IV FLUSH SCH ×2 (08:09→19:48)
[2017-10-11] MEDS ORDERED: GADODIAMIDE PF 287 MG/ML 20 ML VIAL (for RAD MRI) IVCONTRAST ONE (10:03)
[2017-10-11 11:32] LABS: BICARBONATE 18.6 MEQ/L (21.0-32.0); CALCIUM 7.6 MG/DL (8.5-10.1); CREATININE 1.34 MG/DL (0.60-1.30)
[2017-10-11 12:09] LABS: AUTOMATED NEUTROPHIL # 16.2 TH/MM3 (1.8-7.7); BASOPHIL # 0.1 TH/MM3 (0-0.2); BASOPHIL % 0.4 % (0.0-2.0); EOSINOPHIL % 0.1 % (0.0-4.0); HEMATOCRIT 31.6 % (39.0-51.0); LYMPH % 5.2 % (9.0-44.0); MEAN CELL VOLUME 82.5 FL (80.0-100.0); MEAN CORPUSCULAR HEMOGLOBIN 28.7 PG (27.0-34.0); MEAN CORPUSCULAR HGB CONC 34.7 % (32.0-36.0); MEAN PLATELET VOLUME 8.2 FL (7.0-11.0); MONO % 9.3 % (0.0-8.0); MONOCYTE # 1.8 TH/MM3 (0-0.9); PLATELET COUNT 307 TH/MM3 (150-450); RED BLOOD COUNT 3.84 MIL/MM3 (4.50-5.90)
--- NOTE | 2017-10-11 12:43 | RADRPT ---
EXAM DATE/TIME: 10/11/2017 09:41 [facility] COMPARISON: MRI FOOT RIGHT W & W/O CONTRAST, October 08, 2017, 9:17. FOOT RIGHT COMPLETE ([id number]), September, 13:15. MRI FOOT RIGHT W & W/O CONTRAST, May 09, 2017, 15:29. INDICATIONS : Abscess. CONTRAST: 14 cc Omniscan (gadodiamide) IV MEDICAL HISTORY : Diabetes mellitus type 2. Renal calculi. SURGICAL HISTORY : Tonsillectomy. Kidney stone removal. Right foot. ENCOUNTER: Subsequent ACUITY: 3 day PAIN SCORE: 6/10 LOCATION: Right ankle TECHNIQUE: Multiplanar, multisequence MRI examination was performed without contrast and after the intravenous a dministration of gadolinium. FINDINGS: BONE/CARTILAGE: It appears the patient is status post resection of the fifth metatarsal. The fifth metatarsal is not identified. There does appear to be a surgical defect at the lateral midfoot. This abuts the lateral margin of the cuboid. There is some edema seen in the lateral cuboid on the T2-weighted images. This area appears relatively normal on the T1-weighted images. There are other focal areas of increased si gnal seen in the subarticular regions at the posterior subtalar joint and the medial aspect of the ca lcaneal cuboid joint. There are focal areas of signal at night in the dorsal distal navicular bone, a t the posterior aspect of the cuneiform bones. These areas likely are related to underlying arthritic change TENDONS: All of the visualized tendons are intact. There is a focal area of suspected air lateral to the dista l calcaneus adjacent to the peroneal tendons. This is likely from prior surgery. LIGAMENTS: The lateral and medial ligament complexes are intact. MISCELLANEOUS: The plantar aponeurosis is intact. The tarsal tunnel is within normal limits. There is some edema an d increased signal on the T2 images within the intrinsic muscles of the foot. No focal fluid collecti on is seen. CONCLUSION: 1. No definite areas of osteomyelitis. There is some edema within the lateral cuboid adjacent to the suspected surgical defect which is likely reactive. T1 signal is maintained. 2. Multiple areas of focal edema within the midfoot mainly related to the subarticular regions likely related to underlying arthritic change. 3. The patient appears to be status post resection of the fifth metatarsal with post surgical change at the lateral hind and midfoot and a small focus of air seen adjacent to the calcaneus. Wm Dupree MD on October 11, 2017 at 11:53 Board Certified Radiologist. This report was verified electronically.
[2017-10-11] MEDS: SODIUM CHLOR 0.9% 1000 ML INJ 1,000 ML IV SCH ×2 (12:48→19:58)
--- NOTE | 2017-10-11 13:19 | HHI.IDPN ---
Subjective Subjective Remarks ID [id number] chart reviewed Pt is known to me from previous admissio Mr. Braxton is a 57-year-old male with past medical history significant for diabetes type 2, prior diabetic foot ulcer treated in October 2016 thereafter was hospitalized from May 08, 2017 to May 29, 2017 due to foot ulcer. During that hospitalization patient underwent surgical debridement with wound VAC placement. Patient reports that he was seen by Dr. Pritchard during that admission. Patient reports that he was discharged on IV ceftriaxone using a PICC line. Patient had home health care visits him and continue to receive wound VAC changes at home. He also was subsequently seen at wound care clinic for ongoing wound care as well as [facility] for his primary care needs. Patient reports that his medications were recently adjusted and a new insulin was introduced. Patient reports that he was diagnosed with a possible staph or strep infection and has been on oral Bactrim approximately 2 weeks prior to admission. Due to worsening foot infection as well as possible reaction to the new insulin patient presented to the emergency department [facility] [address]. Patient reports that he was having fevers, chills, loss of appetite and diarrhea for the past 2 days associated with frequent urination. Patient denies any dysuria. He reports dizziness and reported history of falls 3 days ago while on the toilet. Patient's reports that she was unaware of this history of fall. He denies any head injury. Patient reports hitting his right foot and shoulder but that he was able to get off the floor by himself. Patient had a sepsis workup initiated on admission. Wound cultures are positive for strep as well as blood cultures are now positive for gram-positive likely strep. Repeat blood cultures have been ordered. Podiatry is seeing the patient and there is a plan for surgical intervention and possible amputation of the involved digit. Infectious disease is consulted for evaluation and management of right fifth toe osteomyelitis with associated cellulitis, gram-positive bacteremia and sepsis. S/p amputation foot and blood clx + MSSA and strep + osteo extending to margins Overnight events reviewed. fever overnight No rash No diarrhea Had diarrhea earlier but was on stool softeners. No need for Cdiff unless persistent liquid stools more than 2 at least. ECHO no veg's Antibiotics Zosyn IV Vanco IV Lines Line sites with no e.o infection Past Medical History Past Medical History DM II Right foot ulcer with possible osteomyelitis in the past. Has received IV antibiotics long-term using a PICC line in the past. Renal stones Past Surgical History Right foot debridement of wound removal of kidney stones Tonsillitis Allergies: Coded Allergies: No Known Allergies (Unverified Adverse Reaction, Unknown, 09/15/17) Uncoded Allergies: lithuanian dressing (Allergy, Severe, Anaphylaxis, 10/07/17) Objective . Vital Signs Date Time Temp Pulse Resp B/P (MAP) Pulse Ox O2 Delivery O2 Flow Rate FiO2 10/11/17 12:00 98.2 85 17 136/77 (96) 97 10/11/17 08:00 85 10/11/17 08:00 97.9 82 18 139/81 (100) 97 10/11/17 07:10 Room Air 10/11/17 04:00 80 10/11/17 04:00 Room Air 10/11/17 04:00 98.2 85 16 131/75 (93) 98 10/11/17 00:12 98.0 81 16 129/71 (90) 96 10/11/17 00:00 Room Air 10/11/17 00:00 82 10/10/17 22:57 98.2 86 16 137/71 97 10/10/17 20:27 98.4 89 16 128/72 95 10/10/17 20:09 98.2 89 18 126/69 94 10/10/17 20:00 88 10/10/17 20:00 Room Air 10/10/17 19:47 98.9 92 18 129/67 (87) 95 10/10/17 19:46 98.9 92 18 129/67 95 10/10/17 16:32 99.8 96 18 142/79 96 10/10/17 16:00 99.8 96 18 142/79 (100) 96 10/10/17 15:00 90 16 145/74 (97) 97 Nasal Cannula 2 10/10/17 14:45 90 16 139/78 (98) 95 Nasal Cannula 2 10/10/17 14:30 98.1 98 16 127/73 (91) 91 Nasal Cannula 2 . Laboratory Tests Test 10/11/17 10:32 10/11/17 10:37 White Blood Count 19.0 TH/MM3 TH/MM3 Red Blood Count 3.84 MIL/MM3 MIL/MM3 Hemoglobin 11.0 GM/DL GM/DL Hematocrit 31.6 % % Mean Corpuscular Volume 82.5 FL FL Mean Corpuscular Hemoglobin 28.7 PG PG Mean Corpuscular Hemoglobin Concent 34.7 % % Red Cell Distribution Width 15.0 % % Platelet Count 307 TH/MM3 TH/MM3 Mean Platelet Volume 8.2 FL FL Neutrophils (%) (Auto) 85.0 % % Lymphocytes (%) (Auto) 5.2 % % Monocytes (%) (Auto) 9.3 % % Eosinophils (%) (Auto) 0.1 % % Basophils (%) (Auto) 0.4 % % Neutrophils # (Auto) 16.2 TH/MM3 TH/MM3 Lymphocytes # (Auto) 1.0 TH/MM3 TH/MM3 Monocytes # (Auto) 1.8 TH/MM3 TH/MM3 Eosinophils # (Auto) 0.0 TH/MM3 TH/MM3 Basophils # (Auto) 0.1 TH/MM3 TH/MM3 CBC Comment AUTO DIFF Hematology Comments Differential Total Cells Counted Neutrophils % (Manual) % Band Neutrophils % % Lymphocytes % % Monocytes % % Neutrophils # (Manual) TH/MM3 Myelocytes % Differential Comment Toxic Granulation Platelet Estimate Platelet Morphology Comment Laboratory Tests Test 10/11/17 10:37 Blood Urea Nitrogen 29 MG/DL Creatinine 1.34 MG/DL Random Glucose 227 MG/DL Calcium Level 7.6 MG/DL Sodium Level 135 MEQ/L Potassium Level 3.5 MEQ/L Chloride Level 105 MEQ/L Carbon Dioxide Level 18.6 MEQ/L Anion Gap 11 MEQ/L Estimat Glomerular Filtration Rate 55 ML/MIN Microbiology Date/Time Source Procedure Growth Status 10/09/17 02:46 Blood Peripheral Aerobic Blood Culture - Preliminary NO GROWTH IN 2 DAYS Resulted 10/09/17 02:46 Blood Peripheral Anaerobic Blood Culture - Preliminary NO GROWTH IN 2 DAYS Resulted 10/09/17 02:41 Blood Peripheral Aerobic Blood Culture - Preliminary NO GROWTH IN 2 DAYS Resulted 10/09/17 02:41 Blood Peripheral Anaerobic Blood Culture - Preliminary NO GROWTH IN 2 DAYS Resulted 10/10/17 14:21 Wound Foot Fungal Smear - Final NO FUNGAL ELEMENTS SEEN. Resulted 10/10/17 14:21 Wound Foot Fungal Culture Pending Resulted 10/10/17 14:21 Wound Foot Acid Fast Stain Pending Received 10/10/17 14:21 Wound Foot Mycobacterial Culture Pending Received 10/10/17 14:21 Wound Foot Gram Stain - Final Resulted 10/10/17 14:21 Wound Foot Wound Culture Pending Resulted 10/08/17 16:45 Wound Ankle Fungal Smear - Final NO FUNGAL ELEMENTS SEEN. Resulted 10/08/17 16:45 Wound Ankle Fungal Culture Pending Resulted 10/08/17 16:45 Wound Ankle Acid Fast Stain - Final NO ACID FAST BACILLI SEEN Resulted 10/08/17 16:45 Wound Ankle Mycobacterial Culture Pending Resulted 10/08/17 16:45 Wound Ankle Gram Stain - Final Complete 10/08/17 16:45 Wound Culture - Final Staphylococcus Aureus Strep Not A,B D Complete 10/08/17 16:45 Wound Toe Fungal Smear - Final NO FUNGAL ELEMENTS SEEN. Resulted 10/08/17 16:45 Wound Toe Fungal Culture Pending Resulted 10/08/17 16:45 Wound Toe Acid Fast Stain - Final NO ACID FAST BACILLI SEEN Resulted 10/08/17 16:45 Wound Toe Mycobacterial Culture Pending Resulted 10/08/17 16:45 Wound Toe Gram Stain - Final Complete 10/08/17 16:45 Wound Culture - Final Strep Not A,B D Staphylococcus Aureus Complete Imaging Last Impressions Foot MRI 10/08/17 0000 Signed Impressions: Service Date/Time: Sunday, October 08, 2017 09:17 - CONCLUSION: 1. Evidence of cellulitis with 1 cm abscess with peripheral enhancement in the dorsal soft tissues adjacent to the distal 5th digit metatarsus. 2. There is signal abnormality (T1 and T2 prolongation) in the distal metaphysis and epiphysis of the 5th metatarsal bone without definite enhancement in the marrow. This is located adjacent to the soft tissue abscess. Some signal abnormality (T2 prolongation) seen in the same region of the metatarsal bone prior MRI in April 2017, making the significance of the finding uncertain. Differential considerations include both chronic and acute osteomyelitis. Elías Keane MD ADDENDUM: The abscess adjacent to the distal 5th metatarsus does extend proximally anterior and lateral to the 5th metatarsus and there is a 2nd fluid collection which measures 1.7 x 0.6 cm, located anterior and lateral to the base of the 5th metatarsus. This has similar signal characteristics and enhancement pattern as the distal fluid component. In addition, there is a thin amount of fluid tracking in a non-distending the peritoneal tendon sheath, this is only seen on the sagittal images. Elías Keane MD Foot X-Ray 2/20/18 0000 Signed Impressions: Service Date/Time: Saturday, October 07, 2017 13:15 - CONCLUSION: 1. Prominent soft tissue swelling overlying the fifth proximal metatarsal at the MTP joint. No definitive erosive bony change to suggest osteomyelitis. Lupillo Webster MD Physical Exam GENERAL: This is a well-nourished, well-developed patient, in no apparent distress. SKIN: No rashes, ecchymoses or lesions. Cool and dry. HEAD: Atraumatic. Normocephalic. No temporal or scalp tenderness. EYES: Pupils equal round and reactive. Extraocular motions intact. No scleral icterus. No injection or drainage. ENT: Nose without bleeding, purulent drainage or septal hematoma. Throat without erythema, tonsillar hypertrophy or exudate. Uvula midline. Airway patent. NECK: Trachea midline.Supple, nontender, no meningeal signs. CARDIOVASCULAR: Heart sounds audible. RESPIRATORY: Clear to auscultation. Breath sounds equal bilaterally. No wheezes , rales, or rhonchi. GASTROINTESTINAL: Abdomen soft, non-tender, nondistended. MUSCULOSKELETAL: Right foot in post op dressing. L foot with fluctuant area over 5th MT head and callus NEUROLOGICAL: Awake and alert. Nonfocal exam Psych cooperative IV line sites with no evidence of infection. Assessment & Plan Remarks Sepsis present on admission Strep bacteremia secondary to right foot osteomyelitis and cellulitis Strep not AB,D and Staph infection Right foot fifth MPJ osteomyelitis Right foot cellulitis Diabetes type 2 uncontrolled Acute renal failure: Sepsis, prerenal: improving non diagnostic arterial study (densely calcified vessels) Recommendations: DC Ceftriaxone IV, vanco start cefazoline L foot MRI Marla Pritchard MD Oct 11, 2017 13:19
[2017-10-11 13:20] LABS: ACANTHOCYTES 1+ (NORMAL); BANDS 4 % (0-6); LYMPHOCYTES 5 % (9-44); MONOCYTES 6 % (0-8); MYELOCYTES 1 % (0-0); NEUTROPHIL # MANUAL DIFF 16.9 TH/MM3 (1.8-7.7); POLYS (SEG NEUTROPHILS) 84 % (16-70); TOXIC GRANULATION 1+ (NORMAL); TOXIC VACUOLATION PRESENT (NONE SEEN)
[2017-10-11] MEDS: ceFAZolin 2 GM PREMIX 50 ML IV SCH ×2 (14:09→22:53)
--- NOTE | 2017-10-11 14:56 | PD.CAR.PN ---
CVT Progress Note Subjective/Hospital Course: Full consult dictated Patient with significant peripheral vascular changes however due to elevated creatinine will have to wait till it comes down before ordering a CTA with runoff We will follow Ashanti Wilcox Objective: Vital Signs Date Time Temp Pulse Resp B/P (MAP) Pulse Ox O2 Delivery O2 Flow Rate FiO2 10/11/17 12:00 98.2 85 17 136/77 (96) 97 10/11/17 08:00 85 10/11/17 08:00 97.9 82 18 139/81 (100) 97 10/11/17 07:10 Room Air 10/11/17 04:00 80 10/11/17 04:00 Room Air 10/11/17 04:00 98.2 85 16 131/75 (93) 98 10/11/17 00:12 98.0 81 16 129/71 (90) 96 10/11/17 00:00 Room Air 10/11/17 00:00 82 10/10/17 22:57 98.2 86 16 137/71 97 10/10/17 20:27 98.4 89 16 128/72 95 10/10/17 20:09 98.2 89 18 126/69 94 10/10/17 20:00 88 10/10/17 20:00 Room Air 10/10/17 19:47 98.9 92 18 129/67 (87) 95 10/10/17 19:46 98.9 92 18 129/67 95 10/10/17 16:32 99.8 96 18 142/79 96 10/10/17 16:00 99.8 96 18 142/79 (100) 96 10/10/17 15:00 90 16 145/74 (97) 97 Nasal Cannula 2 Labs: Laboratory Tests Test 10/11/17 10:32 10/11/17 10:37 White Blood Count 19.0 TH/MM3 (4.0-11.0) TH/MM3 (4.0-11.0) Red Blood Count 3.84 MIL/MM3 (4.50-5.90) MIL/MM3 (4.50-5.90) Hemoglobin 11.0 GM/DL (13.0-17.0) GM/DL (13.0-17.0) Hematocrit 31.6 % (39.0-51.0) % (39.0-51.0) Mean Corpuscular Volume 82.5 FL (80.0-100.0) FL (80.0-100.0) Mean Corpuscular Hemoglobin 28.7 PG (27.0-34.0) PG (27.0-34.0) Mean Corpuscular Hemoglobin Concent 34.7 % (32.0-36.0) % (32.0-36.0) Red Cell Distribution Width 15.0 % (11.6-17.2) % (11.6-17.2) Platelet Count 307 TH/MM3 (150-450) TH/MM3 (150-450) Mean Platelet Volume 8.2 FL (7.0-11.0) FL (7.0-11.0) Neutrophils (%) (Auto) 85.0 % (16.0-70.0) % (16.0-70.0) Lymphocytes (%) (Auto) 5.2 % (9.0-44.0) % (9.0-44.0) Monocytes (%) (Auto) 9.3 % (0.0-8.0) % (0.0-8.0) Eosinophils (%) (Auto) 0.1 % (0.0-4.0) % (0.0-4.0) Basophils (%) (Auto) 0.4 % (0.0-2.0) % (0.0-2.0) Neutrophils # (Auto) 16.2 TH/MM3 (1.8-7.7) TH/MM3 (1.8-7.7) Lymphocytes # (Auto) 1.0 TH/MM3 (1.0-4.8) TH/MM3 (1.0-4.8) Monocytes # (Auto) 1.8 TH/MM3 (0-0.9) TH/MM3 (0-0.9) Eosinophils # (Auto) 0.0 TH/MM3 (0-0.4) TH/MM3 (0-0.4) Basophils # (Auto) 0.1 TH/MM3 (0-0.2) TH/MM3 (0-0.2) CBC Comment AUTO DIFF Differential Total Cells Counted 100 Neutrophils % (Manual) 84 % (16-70) % (16-70) Band Neutrophils % 4 % (0-6) % (0-6) Lymphocytes % 5 % (9-44) % (9-44) Monocytes % 6 % (0-8) % (0-8) Neutrophils # (Manual) 16.9 TH/MM3 (1.8-7.7) TH/MM3 (1.8-7.7) Myelocytes 1 % (0-0) % (0-0) Differential Comment FINAL DIFF MANUAL Toxic Granulation 1+ (NORMAL) (NORMAL) Toxic Vacuolation PRESENT (NONE SEEN) Platelet Estimate NORMAL (NORMAL) (NORMAL) Platelet Morphology Comment NORMAL (NORMAL) (NORMAL) Acanthocytes 1+ (NORMAL) Hematology Comments Blood Urea Nitrogen 29 MG/DL (7-18) Creatinine 1.34 MG/DL (0.60-1.30) Random Glucose 227 MG/DL (74-106) Calcium Level 7.6 MG/DL (8.5-10.1) Sodium Level 135 MEQ/L (136-145) Potassium Level 3.5 MEQ/L (3.5-5.1) Chloride Level 105 MEQ/L (98-107) Carbon Dioxide Level 18.6 MEQ/L (21.0-32.0) Anion Gap 11 MEQ/L (5-15) Estimat Glomerular Filtration Rate 55 ML/MIN (>89) Result Diagram: 10/11/17 [facility] Kenzie Sanchez MD Oct 11, 2017 14:56
--- NOTE | 2017-10-11 15:06 | PD.POD ---
Subjective Pain score: 3 Remarks Patient much more awake and looks better no complaints of foot pain bilateral Past Med/Surg/Social History Past Medical History Endocrine: REPORTS HX OF: Diabetes mellitus Genitourinary: REPORTS HX OF: Other history (Kidney stones ) Past Surgical History Musculoskeletal: REPORTS HX OF: Other musculoskeletal srg (Right foot 5th metatarsal I&D) Social History Smoking Status: Former Smoker Objective Vital Signs Vital Signs Date Time Temp Pulse Resp B/P (MAP) Pulse Ox O2 Delivery O2 Flow Rate FiO2 10/11/17 12:00 98.2 85 17 136/77 (96) 97 10/11/17 08:00 85 10/11/17 08:00 97.9 82 18 139/81 (100) 97 10/11/17 07:10 Room Air 10/11/17 04:00 80 10/11/17 04:00 Room Air 10/11/17 04:00 98.2 85 16 131/75 (93) 98 10/11/17 00:12 98.0 81 16 129/71 (90) 96 10/11/17 00:00 Room Air 10/11/17 00:00 82 10/10/17 22:57 98.2 86 16 137/71 97 10/10/17 20:27 98.4 89 16 128/72 95 10/10/17 20:09 98.2 89 18 126/69 94 10/10/17 20:00 88 10/10/17 20:00 Room Air 10/10/17 19:47 98.9 92 18 129/67 (87) 95 10/10/17 19:46 98.9 92 18 129/67 95 10/10/17 16:32 99.8 96 18 142/79 96 10/10/17 16:00 99.8 96 18 142/79 (100) 96 Coded Allergies: No Known Allergies (Unverified Adverse Reaction, Unknown, 09/15/17) Uncoded Allergies: belizean dressing (Allergy, Severe, Anaphylaxis, 10/07/17) Medications and IVs Administered Medications Medications (Trade) Dose Ordered Sig/Anna Route PRN Reason Start Time Stop Time Status Last Admin Dose Admin Sodium Chloride (NS Flush) 2 ml BID IV FLUSH 10/07/17 21:00 10/11/17 08:09 Heparin Sodium (Porcine) (Heparin Inj) 5,000 units Q8HR SQ 10/08/17 06:00 10/11/17 12:33 Insulin Aspart (NovoLOG SUPPLEMENTAL SCALE) 1 ACHS SLIDING SCALE SQ 10/08/17 12:00 10/11/17 11:33 Lactobacillus Acidophilus (Lactinex) 1 tab Q12HR PO 10/08/17 21:00 10/11/17 08:09 Acetaminophen/ Hydrocodone Bitart (Loop 5-325 Mg) 1 tab Q4H PRN PO pain2-10 10/09/17 10:15 10/11/17 10:25 Insulin Detemir (Levemir Inj) 15 units BID SQ 10/10/17 09:00 10/11/17 08:09 Sodium Chloride 1,000 ml @ 84 mls/hr [id number] IV 10/10/17 11:00 10/11/17 12:48 Cefazolin Sodium/ Dextrose 50 ml @ 150 mls/hr Q8H IV 10/11/17 14:00 10/11/17 14:09 Other Results Laboratory Tests Test 10/11/17 10:32 10/11/17 10:37 White Blood Count 19.0 TH/MM3 TH/MM3 Red Blood Count 3.84 MIL/MM3 MIL/MM3 Hemoglobin 11.0 GM/DL GM/DL Hematocrit 31.6 % % Mean Corpuscular Volume 82.5 FL FL Mean Corpuscular Hemoglobin 28.7 PG PG Mean Corpuscular Hemoglobin Concent 34.7 % % Red Cell Distribution Width 15.0 % % Platelet Count 307 TH/MM3 TH/MM3 Mean Platelet Volume 8.2 FL FL Neutrophils (%) (Auto) 85.0 % % Lymphocytes (%) (Auto) 5.2 % % Monocytes (%) (Auto) 9.3 % % Eosinophils (%) (Auto) 0.1 % % Basophils (%) (Auto) 0.4 % % Neutrophils # (Auto) 16.2 TH/MM3 TH/MM3 Lymphocytes # (Auto) 1.0 TH/MM3 TH/MM3 Monocytes # (Auto) 1.8 TH/MM3 TH/MM3 Eosinophils # (Auto) 0.0 TH/MM3 TH/MM3 Basophils # (Auto) 0.1 TH/MM3 TH/MM3 CBC Comment AUTO DIFF Differential Total Cells Counted 100 Neutrophils % (Manual) 84 % % Band Neutrophils % 4 % % Lymphocytes % 5 % % Monocytes % 6 % % Neutrophils # (Manual) 16.9 TH/MM3 TH/MM3 Myelocytes 1 % % Differential Comment FINAL DIFF MANUAL Toxic Granulation 1+ Toxic Vacuolation PRESENT Platelet Estimate NORMAL Platelet Morphology Comment NORMAL Acanthocytes 1+ Hematology Comments Laboratory Tests Test 10/11/17 10:37 Blood Urea Nitrogen 29 MG/DL Creatinine 1.34 MG/DL Random Glucose 227 MG/DL Calcium Level 7.6 MG/DL Sodium Level 135 MEQ/L Potassium Level 3.5 MEQ/L Chloride Level 105 MEQ/L Carbon Dioxide Level 18.6 MEQ/L Anion Gap 11 MEQ/L Estimat Glomerular Filtration Rate 55 ML/MIN Microbiology Date/Time Source Procedure Growth Status 10/09/17 02:46 Blood Peripheral Aerobic Blood Culture - Preliminary NO GROWTH IN 2 DAYS Resulted 10/09/17 02:46 Blood Peripheral Anaerobic Blood Culture - Preliminary NO GROWTH IN 2 DAYS Resulted 10/09/17 02:41 Blood Peripheral Aerobic Blood Culture - Preliminary NO GROWTH IN 2 DAYS Resulted 10/09/17 02:41 Blood Peripheral Anaerobic Blood Culture - Preliminary NO GROWTH IN 2 DAYS Resulted 10/10/17 14:21 Wound Foot Fungal Smear - Final NO FUNGAL ELEMENTS SEEN. Resulted 10/10/17 14:21 Wound Foot Fungal Culture Pending Resulted 10/10/17 14:21 Wound Foot Acid Fast Stain Pending Worksheet 10/10/17 14:21 Wound Foot Mycobacterial Culture Pending Worksheet 10/10/17 14:21 Wound Foot Gram Stain - Final Resulted 10/10/17 14:21 Wound Culture - Preliminary Staphylococcus Aureus Strep Not A,B D Resulted 10/08/17 16:45 Wound Ankle Fungal Smear - Final NO FUNGAL ELEMENTS SEEN. Resulted 10/08/17 16:45 Wound Ankle Fungal Culture Pending Resulted 10/08/17 16:45 Wound Ankle Acid Fast Stain - Final NO ACID FAST BACILLI SEEN Resulted 10/08/17 16:45 Wound Ankle Mycobacterial Culture Pending Resulted 10/08/17 16:45 Wound Ankle Gram Stain - Final Complete 10/08/17 16:45 Wound Culture - Final Staphylococcus Aureus Strep Not A,B D Complete 10/08/17 16:45 Wound Toe Fungal Smear - Final NO FUNGAL ELEMENTS SEEN. Resulted 10/08/17 16:45 Wound Toe Fungal Culture Pending Resulted 10/08/17 16:45 Wound Toe Acid Fast Stain - Final NO ACID FAST BACILLI SEEN Resulted 10/08/17 16:45 Wound Toe Mycobacterial Culture Pending Resulted 10/08/17 16:45 Wound Toe Gram Stain - Final Complete 10/08/17 16:45 Wound Culture - Final Strep Not A,B D Staphylococcus Aureus Complete Last 72 hours Impressions Ankle MRI 10/11/17 0000 Signed Impressions: Service Date/Time: Wednesday, October 11, 2017 09:41 - CONCLUSION: 1. No definite areas of osteomyelitis. There is some edema within the lateral cuboid adjacent to the suspected surgical defect which is likely reactive. T1 signal is maintained. 2. Multiple areas of focal edema within the midfoot mainly related to the subarticular regions likely related to underlying arthritic change. 3. The patient appears to be status post resection of the fifth metatarsal with post surgical change at the lateral hind and midfoot and a small focus of air seen adjacent to the calcaneus. Wm Dupree MD TISSUE: 1. 5TH TOE RIGHT FOOT 2. 5TH METATARSAL RIGHT FOOT GROSS DESCRIPTION: #1- 4.5 cm in length and up to 1.7 cm in diameter distal portion of a digit with an exposed 1.5 x 1.0 x 0.9 cm portion of bone at the proximal end and contiguous with a 4.5 x 1.5 x 0.8 cm flap of skin and subcutaneous tissue at the proximal end. The soft tissue at the margin is firm yellow pink with focal soft friable yellow jacques areas up to 1.1 cm in diameter. The skin surface of the attached flap of skin has a 1.1 x 0.8 cm ulcerated area which extends to a peripheral edge. The remaining skin of the digit is pale souza pink with focal pink red areas up to 0.6 cm in diameter. At the distal end of the digit there is a 1.0 x 0.6 x 0.1 cm hard yellow souza unguis. RSS 4. A- cross sections of the attached flap of skin and subcutaneous tissue at the site of the ulcerated area, B- radial section from the distal end of the digit after decalcification, C- radial section from the proximal portion of the digit after decalcification including the proximal skin and soft tissue margin, D- radial section of the proximal bone margin after decalcification. #2- 8.5 x 1.8 x 1.5 cm hard souza segment of bone with a smooth convex articular surface at one end and a smooth concave articular surface at the opposite end. Also focally attached to the segment are firm yellow pink portions of tissue up to 1.0 x 0.8 x 0.5 cm. RSS 2 after decalcification. A- radial section from the convex articulated end, B- radial section from the concave articulated end. DXN/sara FINAL DIAGNOSIS: #1- DIGIT, RIGHT FOOT FIFTH TOE, AMPUTATION: - SKIN ULCERATION WITH EXTENSIVE DERMAL AND SOFT TISSUE SUPPURATION. - ACUTE OSTEOMYELITIS EXTENDING TO THE BONY RESECTION MARGIN. #2- BONE, RIGHT FOOT FIFTH METATARSAL, EXCISION: - EXTENSIVE ACUTE OSTEOMYELITIS EXTENDING TO BOTH ENDS OF THE SEGMENT. Physical Exam Remarks Right foot- Medial and lateral incisions loosely coapted the serosanguineous drainage bruising along the dorsum of the foot is decreased. Edema and redness posterior ankle incision without drainage proximal spread of infection noted, plantar medial forefoot large eschar developing Left foot with infected blister ulcer fifth metatarsal head which is no fluctuance, infection appears to be localized to the plantar distal lateral forefoot Bilateral feet or warm sensation bilateral decreased to light touch, good range of motion of hindfoot and ankle bilateral Assessment & Plan A/P Right foot ankle ulcer abscess osteomyelitis Left foot abscess Repeat MRI does not show any obvious osteomyelitis or infection Left foot is a concern today. After appropriate verbal and informed written consent and incision drainage and debridement took place after curing the appropriate time out with the nursing bedside. No anesthesia needed due to the significant neuropathy. The patient's left foot was scrubbed prepped and draped utilizing Betadine, iris scissors and pickups incision and drainage was performed of the plantar lateral blister. It appeared remained superficial and did not probe deep beyond the epidermis bandage applied patient tolerated procedure. Right foot bandage changed packing will remain in until tomorrow. We will reassess wound within the next 1-2 days patient will likely need repeat washout possibly wound VAC. Awaiting formal vascular recommendations. Mitchel Aguayo DPM Oct 11, 2017 15:06
[2017-10-11] MEDS ORDERED: INSULIN DETEMIR 100 UNITS/ML VIAL SQ SCH (21:00)
[2017-10-12] VITALS: BP 149/74; PULSE 86; RESP 18; TEMP 97.4; O2SAT 97
[2017-10-12] MEDS: ACETAMINOPHEN/HYDROcodone 325 MG/5 MG TAB PO PRN ×5 (00:31→21:09)
[2017-10-12 03:44] VITALS: PULSE 87
[2017-10-12 04:00] VITALS: BP 149/87; PULSE 89; RESP 17; TEMP 98.1; O2SAT 95
[2017-10-12] MEDS: HEPARIN SODIUM - SQ 10,000 UNITS/ML VIAL SQ SCH ×3 (06:00→21:11)
[2017-10-12] MEDS: ceFAZolin 2 GM PREMIX 50 ML IV SCH ×3 (06:00→21:12)
[2017-10-12] MEDS: INSULIN ASPART 1,000 UNITS/10 ML VIAL SQ SCH ×3 (08:00→16:40)
[2017-10-12] MEDS: INSULIN ASPART SUPPLEMENTAL SCALE SQ SCH ×4 (08:00→21:17)
[2017-10-12] MEDS: SODIUM CHLORIDE 0.9% FLUSH 10 ML FLUSH IV FLUSH SCH ×2 (08:11→21:00)
[2017-10-12] MEDS: LACTOBACILLUS ACIDOPHILUS TAB PO SCH ×2 (08:11→21:10)
[2017-10-12] MEDS ORDERED: GADODIAMIDE PF 287 MG/ML 20 ML VIAL (for RAD MRI) IVCONTRAST ONE (08:53)
--- NOTE | 2017-10-12 09:18 | HHI.PR ---
Subjective Remarks Follow up for bacteremia, diabetic foot infection. Patient is currently doing well. Circumflex questions appropriately. However there was some concern about hallucination. No fever or chills. Objective Vitals Vital Signs Date Time Temp Pulse Resp B/P (MAP) Pulse Ox O2 Delivery O2 Flow Rate FiO2 10/12/17 07:58 Room Air 10/12/17 04:00 98.1 89 17 149/87 (107) 95 10/12/17 03:44 87 10/12/17 00:00 97.4 86 18 149/74 (99) 97 10/11/17 23:43 80 10/11/17 20:09 79 10/11/17 20:00 98.2 81 16 136/82 (100) 94 10/11/17 20:00 Room Air 10/11/17 16:00 98.4 78 17 136/77 (96) 94 10/11/17 12:00 98.2 85 17 136/77 (96) 97 I/O 10/11/17 10/11/17 10/11/17 10/12/17 10/12/17 10/12/17 07:00 15:00 23:00 07:00 15:00 23:00 Intake Total 262.5 ml 500 ml 580 ml Output Total 600 ml 800 ml 400 ml Balance -337.5 ml -300 ml 180 ml Intake Oral 0 ml 500 ml 580 ml IV Total 262.5 ml Output Urine Total 600 ml 800 ml 400 ml # Voids 1 # Bowel Movements 1 1 1 Result Diagram: 10/11/17 1037 Imaging Last Impressions Foot MRI 10/12/17 0000 Signed Impressions: Service Date/Time: Thursday, October 12, 2017 08:31 - CONCLUSION: 1. No areas of suspected osteomyelitis. 2. Superficial soft tissue swelling over the third and fourth metatarsals. There is also some edema within the plantar musculature. Wm Dupree MD Ankle MRI 10/11/17 0000 Signed Impressions: Service Date/Time: Wednesday, October 11, 2017 09:41 - CONCLUSION: 1. No definite areas of osteomyelitis. There is some edema within the lateral cuboid adjacent to the suspected surgical defect which is likely reactive. T1 signal is maintained. 2. Multiple areas of focal edema within the midfoot mainly related to the subarticular regions likely related to underlying arthritic change. 3. The patient appears to be status post resection of the fifth metatarsal with post surgical change at the lateral hind and midfoot and a small focus of air seen adjacent to the calcaneus. Wm Dupree MD Foot X-Ray 10/07/17 0000 Signed Impressions: Service Date/Time: Saturday, October 07, 2017 13:15 - CONCLUSION: 1. Prominent soft tissue swelling overlying the fifth proximal metatarsal at the MTP joint. No definitive erosive bony change to suggest osteomyelitis. Lupillo Webster MD Objective Remarks GENERAL: Alert, NAD. SKIN: Warm and dry. HEAD: Normocephalic. EYES: No scleral icterus. No injection or drainage. NECK: Supple, trachea midline. No JVD or lymphadenopathy. CARDIOVASCULAR: Regular rate and rhythm without murmurs, gallops, or rubs. RESPIRATORY: Breath sounds equal bilaterally. No accessory muscle use. GASTROINTESTINAL: Abdomen soft, non-tender, nondistended. MUSCULOSKELETAL: No cyanosis, or edema. Right foot wrapped in dressing. Left foot, lateral side has an old wound. BACK: Nontender without obvious deformity. No CVA tenderness. Procedures s/p Right foot and ankle incision drainage, 5th metatarsal resection, 5th digit amputation 10/08/17 A/P Problem List: (1) Osteomyelitis of foot ICD Code: M86.9 - Osteomyelitis, unspecified (2) Leukocytosis ICD Code: D72.829 - Elevated white blood cell count, unspecified (3) Dehydration with hyponatremia ICD Code: E87.1 - Hypo-osmolality and hyponatremia (4) Acute kidney injury ICD Code: N17.9 - Acute kidney failure, unspecified (5) Sepsis ICD Code: A41.9 - Sepsis, unspecified organism Status: Acute (6) Diabetic foot ulcer ICD Code: E11.621 - Type 2 diabetes mellitus with foot ulcer; L97.509 - Non- pressure chronic ulcer of other part of unspecified foot with unspecified severity Status: Acute (7) Acute renal failure superimposed on stage 3 chronic kidney disease ICD Code: N17.9 - Acute kidney failure, unspecified; N18.3 - Chronic kidney disease, stage 3 (moderate) (8) Bacteremia due to Gram-positive bacteria ICD Code: R78.81 - Bacteremia (9) Postoperative anemia ICD Code: D64.9 - Anemia, unspecified Assessment and Plan 57 year-old man with Sepsis - Secondary to diabetic foot infection Right foot osteomyelitis Diabetic foot infection Bacteremia with gram-positive cocci s/p Right foot and ankle incision drainage, 5th metatarsal resection, 5th digit amputation 10/08/17 ID and podiatry following. Wound culture positive for Staph and Strep not A, B, D Per ID, abx switched from Rocephin,Vanco to Cefazolin 2g Q8hrs. CBC, BMP in the AM. - Peripheral vascular disease - vascular surgery is following. Now that creatinine is 1.34, we may be able to obtain CTA with runoff. We'll discuss with vascular surgery tomorrow 10/13/2017. Postoperatively anemia Transfused 2 units packed red cell. Hgb 11.0 on 10/11/2017. Diabetes type 2 continue Levemir 20 units QHS. If BG remains low, we will reduce Levemir. Continue sliding scale. Will also add pre-meal insulin aspart 5 units 3 times a day before meals. Goal glucose in hospital: 140 - 180. Acute kidney injury chronic kidney disease stage III Creatinine improved from around 1.9 to 1.34. Continue NS 84 mL/hour Monitor Bun and creatinine and avoid all nephrotoxic drugs Hypokalemia - resolved. Full code. DVT prophylaxis- heparin Problem Qualifiers (1) Sepsis: Qualified Codes: A41.9 - Sepsis, unspecified organism (2) Diabetic foot ulcer: Qualified Codes: E10.621 - Type 1 diabetes mellitus with foot ulcer; L97.419 - Non-pressure chronic ulcer of right heel and midfoot with unspecified severity Christian Joe DO Oct 12, 2017 09:18
--- NOTE | 2017-10-12 09:34 | RADRPT ---
EXAM DATE/TIME: 10/12/2017 08:31 [facility] COMPARISON: No previous studies available for comparison. INDICATIONS : Osteomyelitis. Left foot with fluctuant area over 5th MT head . CONTRAST: 14 cc Omniscan (gadodiamide) IV MEDICAL HISTORY : Diabetes mellitus type 2. SURGICAL HISTORY : Right foot debridment. ENCOUNTER: Initial ACUITY: 1 day PAIN SCORE: 0/10 LOCATION: Right foot TECHNIQUE: Multiplanar, multisequence MRI examination was performed without contrast and after the intravenous a dministration of gadolinium. FINDINGS: BONE/CARTILAGE: Bone marrow signal is homogeneous. There is a small 3 mm benign cystic areas seen at the fifth metata rsal head region Articular cartilage signal is within normal limits. TENDONS: All of the visualized tendons are intact. MISCELLANEOUS: There is superficial edema is seen at the dorsal aspect of the foot over the third and fourth metatar sals. There is some edema within the plantar musculature. An abscess or focal fluid collection is not present. There is some edema extending into the toes in the subcutaneous fat. Plantar aponeurosis is intact. Sinus tarsi is within normal limits. POST-CONTRAST: There are no abnormal areas of enhancement on the post-contrast images. CONCLUSION: 1. No areas of suspected osteomyelitis. 2. Superficial soft tissue swelling over the third and fourth metatarsals. There is also some edema within the plantar musculature. Wm Dupree MD on October 12, 2017 at 9:28 Board Certified Radiologist. This report was verified electronically.
[2017-10-12] MEDS: SODIUM CHLOR 0.9% 1000 ML INJ 1,000 ML IV SCH ×2 (10:40→21:16)
--- NOTE | 2017-10-12 11:18 | PD.POD ---
Subjective Pain score: 3 Remarks Patient much more awake and looks better no complaints of foot pain bilateral, explains seeing things a second bed was in the room last night with a nurse that he had never seen before. Past Med/Surg/Social History Past Medical History Endocrine: REPORTS HX OF: Diabetes mellitus Genitourinary: REPORTS HX OF: Other history (Kidney stones ) Past Surgical History Musculoskeletal: REPORTS HX OF: Other musculoskeletal srg (Right foot 5th metatarsal I&D) Social History Smoking Status: Former Smoker Objective Vital Signs Vital Signs Date Time Temp Pulse Resp B/P (MAP) Pulse Ox O2 Delivery O2 Flow Rate FiO2 10/12/17 07:58 Room Air 10/12/17 04:00 98.1 89 17 149/87 (107) 95 10/12/17 03:44 87 10/12/17 00:00 97.4 86 18 149/74 (99) 97 10/11/17 23:43 80 10/11/17 20:09 79 10/11/17 20:00 98.2 81 16 136/82 (100) 94 10/11/17 20:00 Room Air 10/11/17 16:00 98.4 78 17 136/77 (96) 94 10/11/17 12:00 98.2 85 17 136/77 (96) 97 Coded Allergies: No Known Allergies (Unverified Adverse Reaction, Unknown, 09/15/17) Uncoded Allergies: ethiopian dressing (Allergy, Severe, Anaphylaxis, 10/07/17) Medications and IVs Administered Medications Medications (Trade) Dose Ordered Sig/Anna Route PRN Reason Start Time Stop Time Status Last Admin Dose Admin Sodium Chloride (NS Flush) 2 ml BID IV FLUSH 10/07/17 21:00 10/11/17 19:48 Heparin Sodium (Porcine) (Heparin Inj) 5,000 units Q8HR SQ 10/08/17 06:00 10/11/17 12:33 Insulin Aspart (NovoLOG SUPPLEMENTAL SCALE) 1 ACHS SLIDING SCALE SQ 10/08/17 12:00 10/11/17 22:56 Lactobacillus Acidophilus (Lactinex) 1 tab Q12HR PO 10/08/17 21:00 10/12/17 08:11 Acetaminophen/ Hydrocodone Bitart ([place] 5-325 Mg) 1 tab Q4H PRN PO pain2-10 10/09/17 10:15 10/12/17 05:45 Sodium Chloride 1,000 ml @ 84 mls/hr [id number] IV 10/10/17 11:00 10/11/17 19:58 Cefazolin Sodium/ Dextrose 50 ml @ 150 mls/hr Q8H IV 10/11/17 14:00 10/12/17 06:00 Insulin Detemir (Levemir Inj) 20 units HS SQ 10/11/17 21:00 10/11/17 22:54 Insulin Aspart (NovoLOG INJ) 5 units TIDAC SQ 10/12/17 08:00 10/12/17 08:00 Other Results Laboratory Tests Test 10/11/17 10:32 10/11/17 10:37 White Blood Count 19.0 TH/MM3 TH/MM3 Red Blood Count 3.84 MIL/MM3 MIL/MM3 Hemoglobin 11.0 GM/DL GM/DL Hematocrit 31.6 % % Mean Corpuscular Volume 82.5 FL FL Mean Corpuscular Hemoglobin 28.7 PG PG Mean Corpuscular Hemoglobin Concent 34.7 % % Red Cell Distribution Width 15.0 % % Platelet Count 307 TH/MM3 TH/MM3 Mean Platelet Volume 8.2 FL FL Neutrophils (%) (Auto) 85.0 % % Lymphocytes (%) (Auto) 5.2 % % Monocytes (%) (Auto) 9.3 % % Eosinophils (%) (Auto) 0.1 % % Basophils (%) (Auto) 0.4 % % Neutrophils # (Auto) 16.2 TH/MM3 TH/MM3 Lymphocytes # (Auto) 1.0 TH/MM3 TH/MM3 Monocytes # (Auto) 1.8 TH/MM3 TH/MM3 Eosinophils # (Auto) 0.0 TH/MM3 TH/MM3 Basophils # (Auto) 0.1 TH/MM3 TH/MM3 CBC Comment AUTO DIFF Differential Total Cells Counted 100 Neutrophils % (Manual) 84 % % Band Neutrophils % 4 % % Lymphocytes % 5 % % Monocytes % 6 % % Neutrophils # (Manual) 16.9 TH/MM3 TH/MM3 Myelocytes 1 % % Differential Comment FINAL DIFF MANUAL Toxic Granulation 1+ Toxic Vacuolation PRESENT Platelet Estimate NORMAL Platelet Morphology Comment NORMAL Acanthocytes 1+ Hematology Comments Laboratory Tests Test 10/11/17 10:37 Blood Urea Nitrogen 29 MG/DL Creatinine 1.34 MG/DL Random Glucose 227 MG/DL Calcium Level 7.6 MG/DL Sodium Level 135 MEQ/L Potassium Level 3.5 MEQ/L Chloride Level 105 MEQ/L Carbon Dioxide Level 18.6 MEQ/L Anion Gap 11 MEQ/L Estimat Glomerular Filtration Rate 55 ML/MIN Microbiology Date/Time Source Procedure Growth Status 10/11/17 00:00 Wound Foot Gram Stain - Final Resulted 10/11/17 00:00 Wound Foot Wound Culture Pending Resulted 10/10/17 14:21 Wound Foot Fungal Smear - Final NO FUNGAL ELEMENTS SEEN. Resulted 10/10/17 14:21 Wound Foot Fungal Culture Pending Resulted 10/10/17 14:21 Wound Foot Acid Fast Stain Pending Worksheet 10/10/17 14:21 Wound Foot Mycobacterial Culture Pending Worksheet 10/10/17 14:21 Wound Foot Gram Stain - Final Complete 10/10/17 14:21 Wound Culture - Final Staphylococcus Aureus Strep Not A,B D Complete Last 72 hours Impressions Ankle MRI 10/11/17 0000 Signed Impressions: Service Date/Time: Wednesday, October 11, 2017 09:41 - CONCLUSION: 1. No definite areas of osteomyelitis. There is some edema within the lateral cuboid adjacent to the suspected surgical defect which is likely reactive. T1 signal is maintained. 2. Multiple areas of focal edema within the midfoot mainly related to the subarticular regions likely related to underlying arthritic change. 3. The patient appears to be status post resection of the fifth metatarsal with post surgical change at the lateral hind and midfoot and a small focus of air seen adjacent to the calcaneus. Wm Dupree MD Left foot MRI- CONCLUSION: 1. No areas of suspected osteomyelitis. 2. Superficial soft tissue swelling over the third and fourth metatarsals. There is also some edema within the plantar musculature. Physical Exam Remarks Right foot- Medial and lateral incisions loosely coapted the serosanguineous drainage bruising along the dorsum of the foot is decreased. Edema and redness posterior ankle incision without drainage proximal spread of infection noted, plantar medial forefoot large eschar developing Left foot with very superficial ulcer fifth metatarsal head which is no fluctuance, infection appears to be localized to the plantar distal lateral forefoot Bilateral feet or warm sensation bilateral decreased to light touch, good range of motion of hindfoot and ankle bilateral Assessment & Plan A/P Right foot ankle ulcer abscess osteomyelitis, mild improvement Left foot abscess, improving Left foot I am not so worried about however the right foot continues to show signs of drainage. I do not think there is proximal spread of any kind of infection however repeat incision and drainage debridement may be indicated with wound VAC in the next 1-2 days pending vascular formal recommendations. Appreciate ID recommendations, Left foot MRI- overall negative, no need for further surgical intervention. Patient is appropriate however saying strange things may need psych evaluation at a later date, I will leave this to medicine. I will sign out to Dr. Hobbs, who will assume care of starting tomorrow Mitchel Aguayo DPM Oct 12, 2017 11:18
[2017-10-12 12:15] VITALS: BP 148/80; PULSE 95; RESP 18; TEMP 98.7; O2SAT 93
[2017-10-12] MEDS ORDERED: PHARMACY ORDERED LAB ONE (17:45)
[2017-10-12 20:00] VITALS: BP 131/66; PULSE 97; RESP 21; TEMP 100.9; O2SAT 98
[2017-10-12] MEDS: INSULIN DETEMIR 100 UNITS/ML VIAL SQ SCH (21:17)
[2017-10-13] VITALS (7 sets, daily range): BP systolic 115–164; BP diastolic 65–87; PULSE 83–109; RESP 17–23; TEMP 98.2–101.2; O2SAT 92–99
[2017-10-13] MEDS: ACETAMINOPHEN/HYDROcodone 325 MG/5 MG TAB PO PRN ×2 (00:59→05:47)
[2017-10-13] MEDS: HEPARIN SODIUM - SQ 10,000 UNITS/ML VIAL SQ SCH ×3 (05:54→20:42)
[2017-10-13] MEDS: ceFAZolin 2 GM PREMIX 50 ML IV SCH (05:55)
[2017-10-13] MEDS: INSULIN ASPART SUPPLEMENTAL SCALE SQ SCH ×4 (08:00→20:43)
--- NOTE | 2017-10-13 08:05 | HHI.PR ---
Subjective Remarks Follow up for bacteremia, diabetic foot infection. Patient is currently doing well. He complains of significant pain from his right foot. No significant pain from left foot. He has been running low-grade temperature 90.9F. This afternoon his temperature was 101.2F. Objective Vitals Vital Signs Date Time Temp Pulse Resp B/P (MAP) Pulse Ox O2 Delivery O2 Flow Rate FiO2 10/13/17 04:00 98.9 89 17 133/66 (88) 94 10/13/17 00:25 99.4 92 18 136/79 (98) 95 10/13/17 00:00 Room Air 10/13/17 00:00 99.0 89 23 115/65 (82) 99 10/12/17 20:00 100.9 97 21 131/66 (87) 98 10/12/17 20:00 Room Air 10/12/17 12:15 98.7 95 18 148/80 (102) 93 I/O 10/12/17 10/12/17 10/12/17 10/13/17 10/13/17 10/13/17 07:00 15:00 23:00 07:00 15:00 23:00 Intake Total 580 ml 500 ml 1000 ml Output Total 400 ml 250 ml 1000 ml 1000 ml Balance 180 ml -250 ml -500 ml 0 ml Intake Oral 580 ml 500 ml 1000 ml Output Urine Total 400 ml 250 ml 1000 ml 1000 ml # Voids 1 # Bowel Movements 1 0 0 Result Diagram: 10/11/17 1037 Imaging Last Impressions Foot MRI 10/12/17 0000 Signed Impressions: Service Date/Time: Thursday, October 12, 2017 08:31 - CONCLUSION: 1. No areas of suspected osteomyelitis. 2. Superficial soft tissue swelling over the third and fourth metatarsals. There is also some edema within the plantar musculature. mW Dupree MD Ankle MRI 10/11/17 0000 Signed Impressions: Service Date/Time: Wednesday, October 11, 2017 09:41 - CONCLUSION: 1. No definite areas of osteomyelitis. There is some edema within the lateral cuboid adjacent to the suspected surgical defect which is likely reactive. T1 signal is maintained. 2. Multiple areas of focal edema within the midfoot mainly related to the subarticular regions likely related to underlying arthritic change. 3. The patient appears to be status post resection of the fifth metatarsal with post surgical change at the lateral hind and midfoot and a small focus of air seen adjacent to the calcaneus. Wm Dupree MD Foot X-Ray 10/07/17 0000 Signed Impressions: Service Date/Time: Saturday, October 07, 2017 13:15 - CONCLUSION: 1. Prominent soft tissue swelling overlying the fifth proximal metatarsal at the MTP joint. No definitive erosive bony change to suggest osteomyelitis. Lupillo Webster MD Objective Remarks GENERAL: Alert, NAD. SKIN: Warm and dry. HEAD: Normocephalic. EYES: No scleral icterus. No injection or drainage. NECK: Supple, trachea midline. No JVD or lymphadenopathy. CARDIOVASCULAR: Regular rate and rhythm without murmurs, gallops, or rubs. RESPIRATORY: Breath sounds equal bilaterally. No accessory muscle use. GASTROINTESTINAL: Abdomen soft, non-tender, nondistended. MUSCULOSKELETAL: No cyanosis, or edema. Right foot wrapped in dressing. Left foot, lateral side has an old wound. BACK: Nontender without obvious deformity. No CVA tenderness. Procedures s/p Right foot and ankle incision drainage, 5th metatarsal resection, 5th digit amputation 10/08/17 A/P Problem List: (1) Osteomyelitis of foot ICD Code: M86.9 - Osteomyelitis, unspecified (2) Leukocytosis ICD Code: D72.829 - Elevated white blood cell count, unspecified (3) Dehydration with hyponatremia ICD Code: E87.1 - Hypo-osmolality and hyponatremia (4) Acute kidney injury ICD Code: N17.9 - Acute kidney failure, unspecified (5) Sepsis ICD Code: A41.9 - Sepsis, unspecified organism Status: Acute (6) Diabetic foot ulcer ICD Code: E11.621 - Type 2 diabetes mellitus with foot ulcer; L97.509 - Non- pressure chronic ulcer of other part of unspecified foot with unspecified severity Status: Acute (7) Acute renal failure superimposed on stage 3 chronic kidney disease ICD Code: N17.9 - Acute kidney failure, unspecified; N18.3 - Chronic kidney disease, stage 3 (moderate) (8) Bacteremia due to Gram-positive bacteria ICD Code: R78.81 - Bacteremia (9) Postoperative anemia ICD Code: D64.9 - Anemia, unspecified Assessment and Plan 57 year-old man with Sepsis - Secondary to diabetic foot infection Right foot osteomyelitis Diabetic foot infection Bacteremia with gram-positive cocci s/p Right foot and ankle incision drainage, 5th metatarsal resection, 5th digit amputation 10/08/17 ID and podiatry following. Wound culture positive for Staph and Strep not A, B, D Per ID, abx switched from Rocephin,Vanco to Cefazolin 2g Q8hrs. CBC, BMP pending today. Patient had a fever of 101.2F this afternoon. We'll obtain CXR and urinalysis. - Peripheral vascular disease - vascular surgery is following. Now that creatinine is 1.34, we may be able to obtain CTA with runoff. - Discussed with vascular surgeon who will evaluate patient today. Possibly can obtain CTA with runoff. Postoperatively anemia Transfused 2 units packed red cell. Hgb 11.0 on 10/11/2017. Diabetes type 2 continue Levemir 20 units QHS. If BG remains low, we will reduce Levemir. Continue sliding scale. Continue pre-meal insulin aspart 5 units 3 times a day before meals. Goal glucose in hospital: 140 - 180. Acute kidney injury chronic kidney disease stage III Creatinine improved from around 1.9 to 1.34. Continue NS 84 mL/hour Monitor Bun and creatinine and avoid all nephrotoxic drugs Hypokalemia - resolved. Full code. DVT prophylaxis- heparin Problem Qualifiers (1) Sepsis: Qualified Codes: A41.9 - Sepsis, unspecified organism (2) Diabetic foot ulcer: Qualified Codes: E10.621 - Type 1 diabetes mellitus with foot ulcer; L97.419 - Non-pressure chronic ulcer of right heel and midfoot with unspecified severity Christian Joe DO Oct 13, 2017 08:05
[2017-10-13] MEDS: SODIUM CHLORIDE 0.9% FLUSH 10 ML FLUSH IV FLUSH SCH ×2 (09:00→20:42)
[2017-10-13] MEDS: LACTOBACILLUS ACIDOPHILUS TAB PO SCH ×2 (09:47→20:41)
[2017-10-13] MEDS: INSULIN ASPART 1,000 UNITS/10 ML VIAL SQ SCH ×3 (09:48→18:24)
[2017-10-13] MEDS: SODIUM CHLOR 0.9% 1000 ML INJ 1,000 ML IV SCH ×2 (09:52→21:05)
[2017-10-13] MEDS: ACETAMINOPHEN 500 MG CPLT PO PRN (13:15)
[2017-10-13] MEDS ORDERED: ACETAMINOPHEN 325 MG TAB PO PRN (13:15)
[2017-10-13] MEDS: ACETAMINOPHEN/HYDROcodone 325 MG/7.5 MG TAB PO PRN ×2 (13:16→20:40)
--- NOTE | 2017-10-13 13:40 | RADRPT ---
EXAM DATE/TIME: 10/13/2017 12:59 [facility] COMPARISON: CHEST SINGLE AP, May 28, 2017, 18:04. INDICATIONS : Fever. MEDICAL HISTORY : diabetes. SURGICAL HISTORY : right foot debridment. ENCOUNTER: Initial ACUITY: 4 - 6 days PAIN SCORE: 0/10 LOCATION: Bilateral chest FINDINGS: Moderate interstitial edema is present with consolidative patchy parenchymal airspace disease in the right lower lobe. This is suspicious for an inflammatory process. The heart is moderately enlarged. CONCLUSION: Inflammatory changes right lower lobe with mild to moderate failure. Tu Lim MD FACR on October 13, 2017 at 13:39 Board Certified Radiologist. This report was verified electronically.
--- NOTE | 2017-10-13 14:29 | PD.PSY.CON ---
Provisional Diagnosis Admission Date Oct 07, 2017 at 17:29 Patterson I. Unspecified psychosis Patterson II. Unspecified personality disorder Patterson III. Diabetes, sepsis History of Present Illness Service Psychiatry Consult Requested By Medical team Reason for Consult Hallucinations Primary Care Physician No Primary Care Physician HPI The patient is a 57 year-old man, but , homeless, unemployed, supported by social assistance, he denies previous psychiatric history, recent Hospitalizations, no previous suicidal attempts, he has medical history of diabetes, prevascular disease, who was admitted to medicine due to Sepsis - Secondary to diabetic foot infection. Right foot osteomyelitis. Diabetic foot infection. Bacteremia with gram-positive cocci. Consulted to psychiatry due to visual hallucinations and inappropriate behavior in the floor. As per conversation with attending in charge the patient has been doing inappropriate sexual comments to the nurses. Chart was reviewed. On psychiatric evaluation the patient is calm, cooperative. He is very talkative and circumstantial, but redirectable. Patient says that he is in a good mood, but this morning he had an argument with a person who came to to drop his blood "because I asked her to be nice with me and she took it as an insult". Patient denies depressive symptoms, he denies anhedonia, he denies hopelessness, he denies helplessness, he denies suicidal and homicidal ideation. Patient reports episodic visual hallucinations, usually seeing people and animals around pain, but the patient seems to understand that this visual hallucinations are a manifestation of sepsis "because he happened to me before, and once the sepsis was resolved I was fine". The patient denies auditory hallucinations. He is fully oriented 3, demonstrates good sense of humor and abstract thinking, he denies the use of alcohol and drugs. Review of Systems Constitutional: DENIES: Diaphoretic episodes, Fatigue, Fever, Weight gain, Weight loss, Chills, Dizziness, Change in appetite, Night Sweats Endocrine: DENIES: Heat/cold intolerance, Polydipsia, Polyuria, Polyphagia Eyes: DENIES: Blurred vision, Diplopia, Eye inflammation, Eye pain, Vision loss , Photosensitivity, Double Vision Ears, nose, mouth, throat: DENIES: Tinnitus, Hearing loss, Vertigo, Nasal discharge, Oral lesions, Throat pain, Hoarseness, Ear Pain, Running Nose, Epistaxis, Sinus Pain, Toothache, Odynophagia Respiratory: DENIES: Apneas, Cough, Snoring, Wheezing, Hemoptysis, Sputum production, Shortness of breath Cardiovascular: DENIES: Chest pain, Palpitations, Syncope, Dyspnea on Exertion , PND, Lower Extremity Edema, Orthopnea, Claudication Gastrointestinal: DENIES: Abdominal pain, Black stools, Bloody stools, Constipation, Diarrhea, Nausea, Vomiting, Difficulty Swallowing, Anorexia Genitourinary: DENIES: Sexual dysfunction, Urinary frequency, Urinary incontinence, Urgency, Hematuria, Dysuria, Nocturia, Penile Discharge, Testicular Pain, Testicular Swelling Musculoskeletal: DENIES: Joint pain, Muscle aches, Stiffness, Joint Swelling, Back pain, Neck pain Integumentary: DENIES: Abnormal pigmentation, Nail changes, Pruritus, Rash Hematologic/lymphatic: DENIES: Bruising, Lymphadenopathy Immunologic/allergic: DENIES: Eczema, Urticaria Neurologic: DENIES: Abnormal gait, Headache, Localized weakness, Paresthesias, Seizures, Speech Problems, Tremor, Poor Balance Psychiatric: COMPLAINS OF: Hallucinations, DENIES: Anxiety, Confusion, Mood changes, Depression, Agitation, Suicidal Ideation, Homicidal Ideation, Delusions Past Family Social History Coded Allergies: No Known Allergies (Unverified Adverse Reaction, Unknown, 09/15/17) Uncoded Allergies: maldivian dressing (Allergy, Severe, Anaphylaxis, 10/07/17) Active Scripts Gabapentin (Gabapentin) 600 Mg Tab, 600 MG PO TID, #90 TAB 3 Refills Prov:Linda Buckley MD 08/22/17 Insulin Aspart Inj (Novolog Inj) 1,000 Unit/10 Ml Vial, 1-9 UNITS SQ ACHS for Blood Sugar Management for 30 Days, #10 ML 3 Refills sugars less than 70,(0)units; sugars 150-199,(1) unit; sugars 200-249,(3) units; sugars 250-299,(5) units; sugars 300-349,(7) units; sugars greater than 349,(9) units Prov:Andreina Crabtree 06/13/17 Reported Medications Insulin Glargine (Basaglar Kwikpen) 100 Unit/Ml Pen, 10 UNITS SQ BID for Blood Sugar Management, #5 PEN 0 Refills 10/07/17 Discontinued Scripts Insulin Detemir Inj (Levemir Inj) 1,000 unit/ 10 ML Vial, 12 UNITS SQ Q12HR for diabetes for 30 Days, #10 ML 3 Refills Do not mix with any other Insulin. Prov:Andreina Crabtree [employer] 06/13/17 Current Medications Medications (Trade) Dose Ordered Sig/Anna Route Start Time Stop Time Status Last Admin (NS Flush) 2 ml UNSCH PRN IV FLUSH 10/07/17 16:45 (NS Flush) 2 ml BID IV FLUSH 10/07/17 21:00 10/11/17 19:48 (Narcan Inj) 0.4 mg UNSCH PRN IV PUSH 10/07/17 16:45 (Heparin Inj) 5,000 units Q8HR SQ 10/08/17 06:00 10/13/17 05:54 (D50w (Vial) Inj) 50 ml UNSCH PRN IV PUSH 10/08/17 10:30 (Glucagon Inj) 1 mg UNSCH PRN OTHER 10/08/17 10:30 (NovoLOG SUPPLEMENTAL SCALE) 1 ACHS SLIDING SCALE SQ 10/08/17 12:00 10/12/17 21:17 (Lactinex) 1 tab Q12HR PO 10/08/17 21:00 10/13/17 09:47 Sodium Chloride 1,000 ml @ 84 mls/hr [id number] IV 10/10/17 11:00 10/13/17 09:52 (NovoLOG INJ) 5 units TIDAC SQ 10/12/17 08:00 10/13/17 12:39 (Levemir Inj) 15 units HS SQ 10/12/17 21:00 10/12/17 21:17 ([place] 7.5-325 Mg) 1 tab Q6H PRN PO 10/13/17 12:45 10/13/17 13:16 (Morphine Inj) 5 mg Q4H PRN IV PUSH 10/13/17 12:45 (Morphine Inj) 4 mg Q3H PRN IV PUSH 10/13/17 12:45 (Restoril) 15 mg HS PRN PO 10/13/17 12:45 (Tylenol) 500 mg Q4H PRN PO 10/13/17 13:15 10/13/17 13:15 Ceftriaxone Sodium 2000 mg/ Sodium Chloride 100 ml @ 200 mls/hr Q24H IV 10/13/17 14:00 Family Psych History No family psychiatric history Social History Patient was born in [facility], he is homeless, but , unemployed, supported by public assistance, highest level of education is high school Patient's Strengths (min. 2) No previous psychiatric history Physical Exam No tremors, no EPS, no withdrawal symptoms Vital Signs Vital Signs Date Time Temp Pulse Resp B/P (MAP) Pulse Ox O2 Delivery O2 Flow Rate FiO2 10/13/17 12:00 101.2 99 20 134/69 (90) 93 10/13/17 07:00 Room Air 10/10/17 15:00 2 I/O 10/13/17 10/13/17 10/13/17 07:59 15:59 23:59 Intake Total 1000 ml 1000 ml Output Total 1000 ml Balance 0 ml 1000 ml Lab Results Date/Time Source Procedure Growth Status 10/09/17 02:46 Blood Peripheral Aerobic Blood Culture - Preliminary NO GROWTH IN 4 DAYS Resulted 10/09/17 02:46 Blood Peripheral Anaerobic Blood Culture - Preliminary NO GROWTH IN 4 DAYS Resulted 10/11/17 00:00 Wound Foot Gram Stain - Final Complete 10/11/17 00:00 Wound Culture - Final Staphylococcus Aureus Strep Not A,B D Complete Mental Status Examination Appearance: Appropriate Consciousness: Alert Orientation: x4 Motor Activity: Normal gait Speech: Unremarkable Language: Adequate Fund of Knowledge: Adequate Attention and Concentration: Adequate Memory: Unremarkable Mood: Appropriate Affect: Appropriate Thought Process & Associations: Intact Thought Content: Appropriate Hallucination Type: None Delusion Type: None Suicidal Ideation: No Suicidal Plan: No Suicidal Intention: No Homicidal Ideation: No Homicidal Plan: No Homicidal Intention: No Insight: Adequate Judgment: Adequate Assessment & Plan Problem List: (1) Unspecified psychosis ICD Codes: F29 - Unspecified psychosis not due to a substance or known physiological condition Assessment & Plan: On psychiatric evaluation today the patient is logical, he is coherent and relevant, reports good mood, he denies suicidal and homicidal ideation, he denies visual and auditory hallucinations at this moment. The patient reports that in the last days he had visual hallucinations, people around him, that he relates he also had in the past when he was septic. She is fully oriented 3, no fluctuation of consciousness, no attention deficit at this moment. At this moment the patient does not meet criteria for involuntary psychiatric admission. These hallucinations is to be the product of medical decompensation: Hypoglycemia, sepsis. Seroquel 25 mg twice a day could be ordered to avoid these visual hallucinations. Regarding his inappropriate behavior with nurses, this seems to be secondary to personality structure and not secondary to a major psychiatric illness decompensation. Supportive psychotherapy, motivation and psychoeducation provided. We'll follow-up. Assessment & Plan Estimated LOS: Bob Bullard MD Oct 13, 2017 14:29
--- NOTE | 2017-10-13 15:00 | PD.CAR.PN ---
CVT Progress Note Subjective/Hospital Course: Full consult dictated Patient with significant peripheral vascular changes however due to elevated creatinine will have to wait till it comes down before ordering a CTA with runoff We will follow Thanks J 10/13/2017 Spoken to the patient again today. He underwent debridement of both feet at this point and arteriogram is necessary to establish the degree of peripheral vascular changes. Majority of this will be below the level of the knee because patient has a pretty good inflow and palpable proximal pulses. I deferred the CT scan as noted above due to elevated creatinine but now that it is normal I ordered it and we can go ahead with CTA with a runoff It should be noted that the original consult was dictated several days ago but never showed up on the computer so I re-dictated it today Objective: Vital Signs Date Time Temp Pulse Resp B/P (MAP) Pulse Ox O2 Delivery O2 Flow Rate FiO2 10/13/17 12:00 101.2 99 20 134/69 (90) 93 10/13/17 08:00 99.0 87 20 143/77 (99) 94 10/13/17 07:00 Room Air 10/13/17 04:00 98.9 89 17 133/66 (88) 94 10/13/17 00:25 99.4 92 18 136/79 (98) 95 10/13/17 00:00 Room Air 10/13/17 00:00 99.0 89 23 115/65 (82) 99 10/12/17 20:00 100.9 97 21 131/66 (87) 98 10/12/17 20:00 Room Air Result Diagram: 10/11/17 [facility] Kenzie Sanchez MD Oct 13, 2017 15:00
[2017-10-13] MEDS: cefTRIAXone INJ 2,000 MG in SODIUM CHLORIDE 0.9% INJ 100 ML IV SCH (15:11)
--- NOTE | 2017-10-13 15:13 | HHI.IDPN ---
Subjective Subjective Remarks Mr. Braxton is a 57-year-old male with past medical history significant for diabetes type 2, prior diabetic foot ulcer treated in October 2016 thereafter was hospitalized from May 08, 2017 to May 29, 2017 due to foot ulcer. During that hospitalization patient underwent surgical debridement with wound VAC placement. Patient reports that he was seen by Dr. Pritchard during that admission. Patient reports that he was discharged on IV ceftriaxone using a PICC line. Patient had home health care visits him and continue to receive wound VAC changes at home. He also was subsequently seen at wound care clinic for ongoing wound care as well as [facility] for his primary care needs. Patient reports that his medications were recently adjusted and a new insulin was introduced. Patient reports that he was diagnosed with a possible staph or strep infection and has been on oral Bactrim approximately 2 weeks prior to admission. Due to worsening foot infection as well as possible reaction to the new insulin patient presented to the emergency department [facility]. Patient reports that he was having fevers, chills, loss of appetite and diarrhea for the past 2 days associated with frequent urination. Patient denies any dysuria. He reports dizziness and reported history of falls 3 days ago while on the toilet. Patient's reports that she was unaware of this history of fall. He denies any head injury. Patient reports hitting his right foot and shoulder but that he was able to get off the floor by himself. Patient had a sepsis workup initiated on admission. Wound cultures are positive for strep as well as blood cultures are now positive for gram-positive likely strep. Repeat blood cultures have been ordered. Podiatry is seeing the patient and there is a plan for surgical intervention and possible amputation of the involved digit. Infectious disease is consulted for evaluation and management of right fifth toe osteomyelitis with associated cellulitis, gram-positive bacteremia and sepsis. S/p amputation foot and blood clx + MSSA and strep + osteo extending to margins Overnight events reviewed. fever overnight 102 F No rash No diarrhea ECHO no veg's Antibiotics Ancef IV Lines Line sites with no e.o infection Past Medical History Past Medical History DM II Right foot ulcer with possible osteomyelitis in the past. Has received IV antibiotics long-term using a PICC line in the past. Renal stones Past Surgical History Right foot debridement of wound removal of kidney stones Tonsillitis Allergies: Coded Allergies: No Known Allergies (Unverified Adverse Reaction, Unknown, 09/15/17) Uncoded Allergies: canadian dressing (Allergy, Severe, Anaphylaxis, 10/07/17) Objective . Vital Signs Date Time Temp Pulse Resp B/P (MAP) Pulse Ox O2 Delivery O2 Flow Rate FiO2 10/13/17 12:00 101.2 99 20 134/69 (90) 93 10/13/17 08:00 99.0 87 20 143/77 (99) 94 10/13/17 07:00 Room Air 10/13/17 04:00 98.9 89 17 133/66 (88) 94 10/13/17 00:25 99.4 92 18 136/79 (98) 95 10/13/17 00:00 Room Air 10/13/17 00:00 99.0 89 23 115/65 (82) 99 10/12/17 20:00 100.9 97 21 131/66 (87) 98 10/12/17 20:00 Room Air 10/13/17 10/13/17 10/14/17 15:00 23:00 07:00 Intake Total 1000 ml Balance 1000 ml IV Total 1000 ml . Microbiology Date/Time Source Procedure Growth Status 10/11/17 00:00 Wound Foot Gram Stain - Final Complete 10/11/17 00:00 Wound Culture - Final Staphylococcus Aureus Strep Not A,B D Complete Imaging Last Impressions Foot MRI 10/08/17 0000 Signed Impressions: Service Date/Time: Sunday, October 08, 2017 09:17 - CONCLUSION: 1. Evidence of cellulitis with 1 cm abscess with peripheral enhancement in the dorsal soft tissues adjacent to the distal 5th digit metatarsus. 2. There is signal abnormality (T1 and T2 prolongation) in the distal metaphysis and epiphysis of the 5th metatarsal bone without definite enhancement in the marrow. This is located adjacent to the soft tissue abscess. Some signal abnormality (T2 prolongation) seen in the same region of the metatarsal bone prior MRI in April 2017, making the significance of the finding uncertain. Differential considerations include both chronic and acute osteomyelitis. Elías Keane MD ADDENDUM: The abscess adjacent to the distal 5th metatarsus does extend proximally anterior and lateral to the 5th metatarsus and there is a 2nd fluid collection which measures 1.7 x 0.6 cm, located anterior and lateral to the base of the 5th metatarsus. This has similar signal characteristics and enhancement pattern as the distal fluid component. In addition, there is a thin amount of fluid tracking in a non-distending the peritoneal tendon sheath, this is only seen on the sagittal images. Elías Keane MD Foot X-Ray 10/07/17 0000 Signed Impressions: Service Date/Time: Saturday, October 07, 2017 13:15 - CONCLUSION: 1. Prominent soft tissue swelling overlying the fifth proximal metatarsal at the MTP joint. No definitive erosive bony change to suggest osteomyelitis. Lupillo Webster MD Physical Exam GENERAL: This is a well-nourished, well-developed patient, in no apparent distress. SKIN: No rashes, ecchymoses or lesions. Cool and dry. HEAD: Atraumatic. Normocephalic. No temporal or scalp tenderness. EYES: Pupils equal round and reactive. Extraocular motions intact. No scleral icterus. No injection or drainage. ENT: Nose without bleeding, purulent drainage or septal hematoma. Throat without erythema, tonsillar hypertrophy or exudate. Uvula midline. Airway patent. NECK: Trachea midline.Supple, nontender, no meningeal signs. CARDIOVASCULAR: Heart sounds audible. RESPIRATORY: Clear to auscultation. Breath sounds equal bilaterally. No wheezes , rales, or rhonchi. GASTROINTESTINAL: Abdomen soft, non-tender, nondistended. MUSCULOSKELETAL: Right foot in post op dressing. NEUROLOGICAL: Awake and alert. Nonfocal exam Psych cooperative IV line sites with no evidence of infection. Assessment & Plan Remarks Sepsis present on admission Strep bacteremia secondary to right foot osteomyelitis and cellulitis Staph MSSA bacteremia high grade. Strep not AB,D and Staph infection Right foot fifth MPJ osteomyelitis Right foot cellulitis Diabetes type 2 uncontrolled Acute renal failure: Sepsis, prerenal: improving non diagnostic arterial study (densely calcified vessels) Recommendations: DC Ancef IV (no Strep coverage) Restart Ceftriaxone (BCX were negative at 4 days and no clinical e/o failure prior to switch) Follow cultures Follow clinically. Follow CXR if has pneumonia please notify me. dw patient. Chuyita Quinteros MD Oct 13, 2017 15:13
--- NOTE | 2017-10-13 17:10 | RADRPT ---
EXAM DATE/TIME: 10/13/2017 16:12 [facility] COMPARISON: No previous studies available for comparison. INDICATIONS : Bruit. MEDICAL HISTORY : Kidney stones. Diabetes. Hallucinations. SURGICAL HISTORY : Tonsillectomy. Kidney stone removal. Right foot incision and debridgement. ENCOUNTER: Initial ACUITY: 1 day PAIN SCORE: 4/10 LOCATION: Bilateral neck PEAK SYSTOLIC VELOCITIES (cm/sec): ICA/CCA RATIO: Right: 1.2 Left: 0.8 ICA: Right: 112.1 Left: 98.4 CCA: Right: 95.2 Left: 118.2 ECA: Right: 114.0 Left: 122.2 VERTEBRAL: Right: 38.4 antegrade Left: 91.9 antegrade Elevated flow velocities and ICA/CCA ratios have been found to correlate with increased degrees of vessel stenosis, calculated as percentage of diameter relative to a normal segment of distal ICA/CCA FINDINGS: RIGHT CAROTID: No significant stenosis is visualized. The waveforms are within normal limits. LEFT CAROTID: No significant stenosis is visualized. The waveforms are within normal limits. VERTEBRAL ARTERIES: Antegrade flow is seen in both vertebral arteries. MISCELLANEOUS: None. CONCLUSION: No evidence of flow-limiting carotid stenosis. Wm Riley MD on October 13, 2017 at 17:07 Board Certified Radiologist. This report was verified electronically.
[2017-10-13] MEDS: MORPHINE SULFATE 8 MG/ML INJ IV PUSH PRN (17:22)
[2017-10-13 18:11] LABS: AUTOMATED NEUTROPHIL # 11.9 TH/MM3 (1.8-7.7); BASOPHIL # 0.1 TH/MM3 (0-0.2); BASOPHIL % 0.4 % (0.0-2.0); EOSINOPHIL # 0.1 TH/MM3 (0-0.4); LYMPH % 9.6 % (9.0-44.0); LYMPHOCYTE # 1.4 TH/MM3 (1.0-4.8); MEAN CELL VOLUME 83.4 FL (80.0-100.0); MEAN CORPUSCULAR HEMOGLOBIN 28.9 PG (27.0-34.0); MEAN CORPUSCULAR HGB CONC 34.6 % (32.0-36.0); MEAN PLATELET VOLUME 8.2 FL (7.0-11.0); MONO % 7.9 % (0.0-8.0); MONOCYTE # 1.2 TH/MM3 (0-0.9); NEUT % 81.1 % (16.0-70.0); PLATELET COUNT 401 TH/MM3 (150-450); RED BLOOD COUNT 3.47 MIL/MM3 (4.50-5.90); RED CELL DISTRIBUTION WIDTH 15.4 % (11.6-17.2); WHITE BLOOD COUNT 14.7 TH/MM3 (4.0-11.0)
[2017-10-13 18:57] LABS: BICARBONATE 20.6 MEQ/L (21.0-32.0); CALCIUM 7.7 MG/DL (8.5-10.1); CREATININE 0.94 MG/DL (0.60-1.30)
[2017-10-13 19:25] LABS: BANDS 6 % (0-6); BASOPHILS 1 % (0-2); LYMPHOCYTES 7 % (9-44); MONOCYTES 5 % (0-8); NEUTROPHIL # MANUAL DIFF 12.6 TH/MM3 (1.8-7.7); POLYS (SEG NEUTROPHILS) 78 % (16-70); PROMYELOCYTES 2 % (0-0); TOXIC GRANULATION 2+ (NORMAL); TOXIC VACUOLATION PRESENT (NONE SEEN)
[2017-10-13 19:26] LABS: ACANTHOCYTES OCC (NORMAL)
[2017-10-13] MEDS: INSULIN DETEMIR 100 UNITS/ML VIAL SQ SCH (20:43)
[2017-10-13 21:00] LABS: BILIRUBIN, URINE NEG (NEG); BLOOD, URINE NEG (NEG); GLUCOSE,URINE NEG (NEG); KETONE, URINE 10 mg/dL (NEG); NITRITE,URINE NEG (NEG); URINE COLOR LIGHT-YELLOW (YELLW/STRAW); URINE LEUKOCYTE ESTERASE NEG (NEG)
[2017-10-13] MEDS ORDERED: IOHEXOL 350 MG/ML 10 ML VIAL (for RAD DIAG) IVCONTRAST ONE (22:46)
[2017-10-14] VITALS: BP 149/81; PULSE 98; RESP 18; TEMP 99.2; O2SAT 94
[2017-10-14] MEDS: MORPHINE SULFATE 8 MG/ML INJ IV PUSH PRN ×3 (00:19→21:03)
--- NOTE | 2017-10-14 02:25 | RADRPT ---
EXAM DATE/TIME: 10/13/2017 22:41 [facility] COMPARISON: No previous studies available for comparison. INDICATIONS : Evaluate for PVD, gangrene both feet. IV CONTRAST: 100 cc Omnipaque 350 (iohexol) IV RADIATION DOSE: 2.57 CTDIvol (mGy) MEDICAL HISTORY : Renal calculi. Diabetes mellitus type 1. SURGICAL HISTORY : Tonsillectomy. right foot I&D ENCOUNTER: Initial ACUITY: 4 - 6 months PAIN SCALE: : Single bilateral renal arteries which are widely patent. Celiac, SMA, and BREANA are widely patent . RIGHT LEG: INFLOW: No iliac inflow stenosis. Common femoral artery is patent. OUTFLOW: Profunda is patent. Mild diffuse distal SFA calcifications without significant flow-limiting stenosis . The above-knee popliteal artery is patent. Mild distal below knee pump the artery calcifications wi thout significant flow-limiting stenosis. RUNOFF: Tibial arteries are heavily calcified which severely limits overall evaluation. There is also venous contamination. Overall, 2 vessels cannot be definitively evaluated beyond the proximal calf. LEFT LEG: INFLOW: No iliac inflow stenosis. Common femoral artery is patent. OUTFLOW: Profunda is patent. Mild diffuse SFA calcifications distally without significant flow-limiting stenos is. Popliteal artery is patent. RUNOFF: Tibial arteries are heavily calcified which severely limits overall evaluation. There is also venous contamination. Overall, 2 vessels cannot be definitively evaluated beyond the proximal calf. GENERAL FINDINGS: Small to moderate bilateral pleural effusions with associated airspace disease at the lung bases, pre sumably atelectasis. Evaluation of the abdominal viscera is limited due to arterial phase technique. Liver demonstrates diffusely decreased density without significant focal mass or intrahepatic ductal dilatation. Spleen, adrenal glands, gallbladder, and pancreas are grossly unremarkable. Punctate nono bstructing calyceal calculus in the inferior pole of the left kidney. Kidneys are otherwise unremarka ble. No significant renal mass. Mild sigmoid diverticulosis. The bowel appears unremarkable without e vidence for obstruction. Trace free fluid in the deep pelvis. Bladder is mildly distended but otherwise unremarkable. Prostate and seminal vesicles are within norm al limits. Small suprapatellar right joint effusion. CONCLUSION: 1. No aortic occlusive disease. 2. No significant iliac inflow stenosis. 3. No significant outflow stenosis. 4. Diffuse bilateral runoff disease with heavily calcified tibial arteries and significant venous con tamination precluding patency evaluation beyond the very proximal calf. 5. Small to moderate bilateral pleural effusions with associated airspace disease at the lung bases, presumably atelectasis. 6. Trace free fluid in the deep pelvis. 7. Ancillary findings include hepatic steatosis, nonobstructing punctate calyceal calculus in the inf erior pole of the left kidney and small suprapatellar right joint effusion. Lupillo Webster MD on October 14, 2017 at 2:15 Board Certified Radiologist. This report was verified electronically.
[2017-10-14] MEDS: ACETAMINOPHEN/HYDROcodone 325 MG/7.5 MG TAB PO PRN ×3 (03:47→16:35)
[2017-10-14 04:00] VITALS: BP 125/63; PULSE 102; RESP 18; TEMP 100.4; O2SAT 93
[2017-10-14] MEDS: HEPARIN SODIUM - SQ 10,000 UNITS/ML VIAL SQ SCH ×3 (05:34→21:00)
[2017-10-14 08:00] VITALS: BP 156/85; PULSE 98; RESP 20; TEMP 99.5; O2SAT 95
[2017-10-14] MEDS: INSULIN ASPART SUPPLEMENTAL SCALE SQ SCH ×4 (08:00→21:00)
[2017-10-14] MEDS: INSULIN ASPART 1,000 UNITS/10 ML VIAL SQ SCH ×4 (08:00→18:56)
[2017-10-14] MEDS: LACTOBACILLUS ACIDOPHILUS TAB PO SCH ×2 (08:53→21:00)
[2017-10-14 10:06] LABS: BICARBONATE 22.3 MEQ/L (21.0-32.0); CALCIUM 7.9 MG/DL (8.5-10.1); CREATININE 0.92 MG/DL (0.60-1.30)
[2017-10-14 11:54] VITALS: BP 154/80; PULSE 99; RESP 20; TEMP 100.3; O2SAT 91
--- NOTE | 2017-10-14 12:49 | MB ---
cc: Kenzie Sanchez MD DATE OF CONSULT: 10/11/2017 CONSULTING PHYSICIAN: Kenzie Sanchez MD, vascular surgery. REASON FOR CONSULTATION: Ischemia of both legs, gangrene and purulent infection both feet, sepsis. HISTORY OF PRESENT DISEASE: This 57-year-old male presents to the hospital with diaphoresis, fever and shakes. Patient is diagnosed with infection of both feet in the face of his underlying diabetes mellitus, and vascular consult is sought to evaluate patient's vascular supply and possible remedy to this. PAST MEDICAL HISTORY: Diabetes mellitus and diabetic foot ulcers since early 2016 that were treated in wound care clinic. He was hospitalized in April last year and then May last year for foot ulcers, went repeated debridements, wound VAC placements and such. He had a PICC line placed, completing outpatient antibiotics and now things got worse. On admission, patient appears to be septic with extreme leukocytosis and left shift, and I am consulted to evaluate the patient. Past medical history is that of diabetes mellitus, hypertension, renal calculi, foot infection. SURGICAL HISTORY: That of previous debridements of the right and left foot for osteomyelitis. MEDICATIONS: Include insulin-controlling substances and antihypertensives. SOCIAL HISTORY: Patient stopped smoking and drinking in 2016. Before that, states he drank and smoked heavily. PHYSICAL EXAMINATION: Reveals 57-year-old male, normocephalic, no trauma to the head. Pupils equal, reactive. Extraocular muscles intact. Bilateral carotid pulses, bilateral faint bruits. CHEST: Bilateral breath sounds, decreased of both lungs, this is consistent with moderate degree of COPD. HEART: Regular rhythm. ABDOMEN: Soft, active bowel sounds, no rebound, no masses, no guarding. EXTREMITIES: Patient has actually palpable femoral pulses and then dopplerable strong popliteal pulses. Dorsalis pedis, posterior tibial only by Doppler. Legs are warm. Feet of kind of cool. Patient has bilateral debrided areas and purulent discharge, which is being treated by podiatry. NEUROLOGIC: Grossly patient is intact. IMPRESSION: I reviewed laboratory and diagnostic procedures. The gentleman has no inflow disease; however, he probably has a small vessel disease, classic for diabetics and majority of his disease will be noted to be under level of the knee. Arterial ultrasound, of course, is not of much help with the calcific and hardened vessels, because they will not compress. Patient will have CTA with a runoff. In my initial consult, I deferred the CTA runoff for another few days until creatinine corrected, but now that it is corrected, I believe that it is safe to go ahead. Patient might have some reconstructible disease, at least by endovascular approach below the level of the knee and every bit helps at this time. Based on what I can see, this patient will end up with a right below-knee amputation sooner than later, and on the left side, we can still work on him somewhat longer. This is the natural progression of this disease. It should be noted that this consult was dictated on the and never showed up on the computer, so I am redictating this. MD WOLFGANG Pearl/SARAY , 02:57 PM , 04:15 PM
[2017-10-14] MEDS: cefTRIAXone INJ 2,000 MG in SODIUM CHLORIDE 0.9% INJ 100 ML IV SCH (15:11)
--- NOTE | 2017-10-14 15:11 | PD.CAR.PN ---
CVT Progress Note Subjective/Hospital Course: Full consult dictated Patient with significant peripheral vascular changes however due to elevated creatinine will have to wait till it comes down before ordering a CTA with runoff We will follow Thanks J 10/13/2017 Spoken to the patient again today. He underwent debridement of both feet at this point and arteriogram is necessary to establish the degree of peripheral vascular changes. Majority of this will be below the level of the knee because patient has a pretty good inflow and palpable proximal pulses. I deferred the CT scan as noted above due to elevated creatinine but now that it is normal I ordered it and we can go ahead with CTA with a runoff It should be noted that the original consult was dictated several days ago but never showed up on the computer so I re-dictated it today 10/14/2017 CTA with runoff has been performed and I reviewed it. It confirms the clinical findings and my impression and the consult few days ago. Patient has no inflow disease and while heavily calcified both SFAs are patent down to the level of trifurcation. Below the level of the trifurcation all 3 vessels are very heavily calcified and round office the anterior and posterior tibial in both feet but the actual lumen of the vessels is hard to quantify considering the amount of calcifications All in all, there is no hemodynamically significant stenosis to the level of trifurcation and below that vessels are heavily calcified and therefore not amiable to any endovascular work. No open or endovascular surgery is indicated at this time Objective: Vital Signs Date Time Temp Pulse Resp B/P (MAP) Pulse Ox O2 Delivery O2 Flow Rate FiO2 10/14/17 11:54 100.3 99 20 154/80 (104) 91 10/14/17 08:00 99.5 98 20 156/85 (108) 95 10/14/17 04:00 100.4 102 18 125/63 (83) 93 10/14/17 04:00 Nasal Cannula 2.00 10/14/17 00:00 99.2 98 18 149/81 (103) 94 10/14/17 00:00 Nasal Cannula 2.00 10/13/17 20:00 100.7 109 18 164/87 (112) 92 10/13/17 20:00 Nasal Cannula 2.00 10/13/17 16:00 98.2 83 20 141/75 (97) 93 Labs: Laboratory Tests Test 10/14/17 09:13 Blood Urea Nitrogen 15 MG/DL (7-18) Creatinine 0.92 MG/DL (0.60-1.30) Random Glucose 77 MG/DL (74-106) Calcium Level 7.9 MG/DL (8.5-10.1) Sodium Level 137 MEQ/L (136-145) Potassium Level 3.2 MEQ/L (3.5-5.1) Chloride Level 106 MEQ/L (98-107) Carbon Dioxide Level 22.3 MEQ/L (21.0-32.0) Anion Gap 9 MEQ/L (5-15) Estimat Glomerular Filtration Rate 84 ML/MIN (>89) Result Diagram: 10/13/17 1730 10/14/17 0913 Kenzie Sanchez MD Oct 14, 2017 15:11
--- NOTE | 2017-10-14 15:18 | HHI.IDPN ---
Subjective Subjective Remarks Mr. Braxton is a 57-year-old male with past medical history significant for diabetes type 2, prior diabetic foot ulcer treated in October 2016 thereafter was hospitalized from May 08, 2017 to May 29, 2017 due to foot ulcer. During that hospitalization patient underwent surgical debridement with wound VAC placement. Patient reports that he was seen by Dr. Pritchard during that admission. Patient reports that he was discharged on IV ceftriaxone using a PICC line. Patient had home health care visits him and continue to receive wound VAC changes at home. He also was subsequently seen at wound care clinic for ongoing wound care as well as [facility] for his primary care needs. Patient reports that his medications were recently adjusted and a new insulin was introduced. Patient reports that he was diagnosed with a possible staph or strep infection and has been on oral Bactrim approximately 2 weeks prior to admission. Due to worsening foot infection as well as possible reaction to the new insulin patient presented to the emergency department [facility]. Patient reports that he was having fevers, chills, loss of appetite and diarrhea for the past 2 days associated with frequent urination. Patient denies any dysuria. He reports dizziness and reported history of falls 3 days ago while on the toilet. Patient's reports that she was unaware of this history of fall. He denies any head injury. Patient reports hitting his right foot and shoulder but that he was able to get off the floor by himself. Patient had a sepsis workup initiated on admission. Wound cultures are positive for strep as well as blood cultures are now positive for gram-positive likely strep. Repeat blood cultures have been ordered. Podiatry is seeing the patient and there is a plan for surgical intervention and possible amputation of the involved digit. Infectious disease is consulted for evaluation and management of right fifth toe osteomyelitis with associated cellulitis, gram-positive bacteremia and sepsis. S/p amputation foot and blood clx + MSSA and strep + osteo extending to margins Overnight events reviewed. fever overnight 101.2 F. No rash No diarrhea ECHO no veg's CTA done await Vascular input. With persistent fevers concern for persistent infection and better need for source control (based on podiatry last note there was still significant purulence on 2nd washout). Antibiotics Ancef IV Lines Line sites with no e.o infection Past Medical History Past Medical History DM II Right foot ulcer with possible osteomyelitis in the past. Has received IV antibiotics long-term using a PICC line in the past. Renal stones Past Surgical History Right foot debridement of wound removal of kidney stones Tonsillitis Allergies: Coded Allergies: No Known Allergies (Unverified Adverse Reaction, Unknown, 09/15/17) Uncoded Allergies: palestinian dressing (Allergy, Severe, Anaphylaxis, 10/07/17) Objective . Vital Signs Date Time Temp Pulse Resp B/P (MAP) Pulse Ox O2 Delivery O2 Flow Rate FiO2 10/14/17 11:54 100.3 99 20 154/80 (104) 91 10/14/17 08:00 99.5 98 20 156/85 (108) 95 10/14/17 04:00 100.4 102 18 125/63 (83) 93 10/14/17 04:00 Nasal Cannula 2.00 10/14/17 00:00 99.2 98 18 149/81 (103) 94 10/14/17 00:00 Nasal Cannula 2.00 10/13/17 20:00 100.7 109 18 164/87 (112) 92 10/13/17 20:00 Nasal Cannula 2.00 10/13/17 16:00 98.2 83 20 141/75 (97) 93 10/14/17 10/14/17 10/15/17 15:00 23:00 07:00 Intake Total 480 ml Output Total 600 ml Balance -120 ml Intake Oral 480 ml Output Urine Total 600 ml # Bowel Movements 0 . Laboratory Tests Test 10/13/17 17:30 White Blood Count 14.7 TH/MM3 Red Blood Count 3.47 MIL/MM3 Hemoglobin 10.0 GM/DL Hematocrit 29.0 % Mean Corpuscular Volume 83.4 FL Mean Corpuscular Hemoglobin 28.9 PG Mean Corpuscular Hemoglobin Concent 34.6 % Red Cell Distribution Width 15.4 % Platelet Count 401 TH/MM3 Mean Platelet Volume 8.2 FL Neutrophils (%) (Auto) 81.1 % Lymphocytes (%) (Auto) 9.6 % Monocytes (%) (Auto) 7.9 % Eosinophils (%) (Auto) 1.0 % Basophils (%) (Auto) 0.4 % Neutrophils # (Auto) 11.9 TH/MM3 Lymphocytes # (Auto) 1.4 TH/MM3 Monocytes # (Auto) 1.2 TH/MM3 Eosinophils # (Auto) 0.1 TH/MM3 Basophils # (Auto) 0.1 TH/MM3 CBC Comment AUTO DIFF Differential Total Cells Counted 100 Neutrophils % (Manual) 78 % Band Neutrophils % 6 % Lymphocytes % 7 % Monocytes % 5 % Eosinophils % 1 % Basophils % 1 % Neutrophils # (Manual) 12.6 TH/MM3 Promyelocytes 2 % Differential Comment FINAL DIFF MANUAL Toxic Granulation 2+ Toxic Vacuolation PRESENT Platelet Estimate NORMAL Platelet Morphology Comment NORMAL Acanthocytes OCC Laboratory Tests Test 10/13/17 17:30 10/14/17 00:07 10/14/17 09:13 Blood Urea Nitrogen 16 MG/DL 15 MG/DL Creatinine 0.94 MG/DL 0.92 MG/DL Random Glucose 114 MG/DL 77 MG/DL Calcium Level 7.7 MG/DL 7.9 MG/DL Sodium Level 138 MEQ/L 137 MEQ/L Potassium Level 3.2 MEQ/L 3.2 MEQ/L Chloride Level 107 MEQ/L 106 MEQ/L Carbon Dioxide Level 20.6 MEQ/L 22.3 MEQ/L Anion Gap 10 MEQ/L 9 MEQ/L Estimat Glomerular Filtration Rate 82 ML/MIN 84 ML/MIN Lactic Acid Level 0.7 mmol/L Imaging Last Impressions Foot MRI 10/08/17 0000 Signed Impressions: Service Date/Time: Sunday, October 08, 2017 09:17 - CONCLUSION: 1. Evidence of cellulitis with 1 cm abscess with peripheral enhancement in the dorsal soft tissues adjacent to the distal 5th digit metatarsus. 2. There is signal abnormality (T1 and T2 prolongation) in the distal metaphysis and epiphysis of the 5th metatarsal bone without definite enhancement in the marrow. This is located adjacent to the soft tissue abscess. Some signal abnormality (T2 prolongation) seen in the same region of the metatarsal bone prior MRI in April 2017, making the significance of the finding uncertain. Differential considerations include both chronic and acute osteomyelitis. Elías Keane MD ADDENDUM: The abscess adjacent to the distal 5th metatarsus does extend proximally anterior and lateral to the 5th metatarsus and there is a 2nd fluid collection which measures 1.7 x 0.6 cm, located anterior and lateral to the base of the 5th metatarsus. This has similar signal characteristics and enhancement pattern as the distal fluid component. In addition, there is a thin amount of fluid tracking in a non-distending the peritoneal tendon sheath, this is only seen on the sagittal images. Elías Keane MD Foot X-Ray 10/07/17 0000 Signed Impressions: Service Date/Time: Saturday, October 07, 2017 13:15 - CONCLUSION: 1. Prominent soft tissue swelling overlying the fifth proximal metatarsal at the MTP joint. No definitive erosive bony change to suggest osteomyelitis. Lupillo Webster MD Physical Exam GENERAL: This is a well-nourished, well-developed patient, in no apparent distress. SKIN: No rashes, ecchymoses or lesions. Cool and dry. HEAD: Atraumatic. Normocephalic. No temporal or scalp tenderness. EYES: Pupils equal round and reactive. Extraocular motions intact. No scleral icterus. No injection or drainage. ENT: Nose without bleeding, purulent drainage or septal hematoma. Throat without erythema, tonsillar hypertrophy or exudate. Uvula midline. Airway patent. NECK: Trachea midline.Supple, nontender, no meningeal signs. CARDIOVASCULAR: Heart sounds audible. RESPIRATORY: Clear to auscultation. Breath sounds equal bilaterally. No wheezes , rales, or rhonchi. GASTROINTESTINAL: Abdomen soft, non-tender, nondistended. MUSCULOSKELETAL: Right foot in post op dressing. NEUROLOGICAL: Awake and alert. Nonfocal exam Psych cooperative IV line sites with no evidence of infection. Assessment & Plan Remarks Sepsis present on admission Strep bacteremia secondary to right foot osteomyelitis and cellulitis Staph MSSA bacteremia high grade. Strep not AB,D and Staph infection Right foot fifth MPJ osteomyelitis Right foot cellulitis Diabetes type 2 uncontrolled Acute renal failure: Sepsis, prerenal: improving non diagnostic arterial study (densely calcified vessels) Recommendations: Continue Ceftriaxone (BCX were negative at 4 days and no clinical e/o failure prior to switch) Start Levaquin for broadening GNR coverage and also atypical PNA coverage. Concern the lung infiltrates could be septic emboli. Start Zyvox IV (MRSA PNA and MRSA new HCA infection coverage, additionally helps with toxin neutralization for Strep) Will get CT C/A/P in next day or two based on Cr as patient just received contrast today for CTA and is recovering from ARF on admission. Follow cultures Follow clinically. dw patient Will dw Podiatry may need further debridement for source control if fevers persist. plans on surgery on 10/16/17. Reviewed note: no surgical intervention planned at present time as no significant stenosis. dw about plan for OR tomorrow. Chuyita Quinteros MD Oct 14, 2017 15:18
[2017-10-14 16:05] VITALS: BP 165/93; PULSE 105; RESP 20; TEMP 100.1; O2SAT 93
[2017-10-14] MEDS: LINEZOLID 600 MG PREMIX 300 ML IV SCH (17:09)
--- NOTE | 2017-10-14 18:21 | HHI.PR ---
Subjective Remarks Follow up for bacteremia, diabetic foot infection. Patient is currently doing well. He denies any chest pain, shortness of breath. He has been having persistent low-grade fever highest being 100.7. Objective Vitals Vital Signs Date Time Temp Pulse Resp B/P (MAP) Pulse Ox O2 Delivery O2 Flow Rate FiO2 10/14/17 16:05 100.1 105 20 165/93 (117) 93 10/14/17 11:54 100.3 99 20 154/80 (104) 91 10/14/17 08:00 99.5 98 20 156/85 (108) 95 10/14/17 04:00 100.4 102 18 125/63 (83) 93 10/14/17 04:00 Nasal Cannula 2.00 10/14/17 00:00 99.2 98 18 149/81 (103) 94 10/14/17 00:00 Nasal Cannula 2.00 10/13/17 20:00 100.7 109 18 164/87 (112) 92 10/13/17 20:00 Nasal Cannula 2.00 I/O 10/13/17 10/13/17 10/13/17 10/14/17 10/14/17 10/14/17 07:00 15:00 23:00 07:00 15:00 23:00 Intake Total 1000 ml 1000 ml 480 ml Output Total 1000 ml 700 ml 300 ml 600 ml 300 ml Balance 0 ml 1000 ml -700 ml -300 ml -120 ml -300 ml Intake Oral 1000 ml 480 ml IV Total 1000 ml Output Urine Total 1000 ml 700 ml 300 ml 600 ml 300 ml # Voids 2 1 # Bowel Movements 0 1 1 0 Result Diagram: 10/13/17 1730 10/14/17 0913 Imaging Last Impressions Chest X-Ray 10/13/17 0000 Signed Impressions: Service Date/Time: Friday, October 13, 2017 12:59 - CONCLUSION: Inflammatory changes right lower lobe with mild to moderate failure. Tu Lim MD FACR Carotid Artery Ultrasound 10/13/17 0000 Signed Impressions: Service Date/Time: Friday, October 13, 2017 16:12 - CONCLUSION: No evidence of flow-limiting carotid stenosis. Wm Riley MD Aorta w/Runoff CTA 10/13/17 0000 Signed Impressions: Service Date/Time: Friday, October 13, 2017 22:41 - CONCLUSION: 1. No aortic occlusive disease. 2. No significant iliac inflow stenosis. 3. No significant outflow stenosis. 4. Diffuse bilateral runoff disease with heavily calcified tibial arteries and significant venous contamination precluding patency evaluation beyond the very proximal calf. 5. Small to moderate bilateral pleural effusions with associated airspace disease at the lung bases, presumably atelectasis. 6. Trace free fluid in the deep pelvis. 7. Ancillary findings include hepatic steatosis, nonobstructing punctate calyceal calculus in the inferior pole of the left kidney and small suprapatellar right joint effusion. Lupillo Webster MD Foot MRI 10/12/17 0000 Signed Impressions: Service Date/Time: Thursday, October 12, 2017 08:31 - CONCLUSION: 1. No areas of suspected osteomyelitis. 2. Superficial soft tissue swelling over the third and fourth metatarsals. There is also some edema within the plantar musculature. Wm Dupree MD Ankle MRI 10/11/17 0000 Signed Impressions: Service Date/Time: Wednesday, October 11, 2017 09:41 - CONCLUSION: 1. No definite areas of osteomyelitis. There is some edema within the lateral cuboid adjacent to the suspected surgical defect which is likely reactive. T1 signal is maintained. 2. Multiple areas of focal edema within the midfoot mainly related to the subarticular regions likely related to underlying arthritic change. 3. The patient appears to be status post resection of the fifth metatarsal with post surgical change at the lateral hind and midfoot and a small focus of air seen adjacent to the calcaneus. Wm Dupree MD Foot X-Ray 10/07/17 0000 Signed Impressions: Service Date/Time: Saturday, October 07, 2017 13:15 - CONCLUSION: 1. Prominent soft tissue swelling overlying the fifth proximal metatarsal at the MTP joint. No definitive erosive bony change to suggest osteomyelitis. Lupillo Webster MD Objective Remarks GENERAL: Alert, NAD. SKIN: Warm and dry. HEAD: Normocephalic. EYES: No scleral icterus. No injection or drainage. NECK: Supple, trachea midline. No JVD or lymphadenopathy. CARDIOVASCULAR: Regular rate and rhythm without murmurs, gallops, or rubs. RESPIRATORY: Breath sounds equal bilaterally. No accessory muscle use. GASTROINTESTINAL: Abdomen soft, non-tender, nondistended. MUSCULOSKELETAL: No cyanosis, or edema. Right foot wrapped in dressing. Left foot, lateral side has an old wound. BACK: Nontender without obvious deformity. No CVA tenderness. Procedures s/p Right foot and ankle incision drainage, 5th metatarsal resection, 5th digit amputation 10/08/17 A/P Problem List: (1) Osteomyelitis of foot ICD Code: M86.9 - Osteomyelitis, unspecified (2) Leukocytosis ICD Code: D72.829 - Elevated white blood cell count, unspecified (3) Dehydration with hyponatremia ICD Code: E87.1 - Hypo-osmolality and hyponatremia (4) Acute kidney injury ICD Code: N17.9 - Acute kidney failure, unspecified (5) Sepsis ICD Code: A41.9 - Sepsis, unspecified organism Status: Acute (6) Diabetic foot ulcer ICD Code: E11.621 - Type 2 diabetes mellitus with foot ulcer; L97.509 - Non- pressure chronic ulcer of other part of unspecified foot with unspecified severity Status: Acute (7) Acute renal failure superimposed on stage 3 chronic kidney disease ICD Code: N17.9 - Acute kidney failure, unspecified; N18.3 - Chronic kidney disease, stage 3 (moderate) (8) Bacteremia due to Gram-positive bacteria ICD Code: R78.81 - Bacteremia (9) Postoperative anemia ICD Code: D64.9 - Anemia, unspecified Assessment and Plan 57 year-old man with Sepsis - Secondary to diabetic foot infection Right foot osteomyelitis Diabetic foot infection Bacteremia with gram-positive cocci Possible hospital-acquired pneumonia s/p Right foot and ankle incision drainage, 5th metatarsal resection, 5th digit amputation 10/08/17 ID and podiatry following. Wound culture positive for Staph and Strep not A, B, D Discussed with infectious disease. Patient is currently on ceftriaxone, Levaquin, Zyvox. Probable further debridement on 10/15/2017 by podiatry Peripheral vascular disease - vascular surgery is following. Patient underwent CTA with runoff. Per vascular surgery, no intervention at this point. Postoperatively anemia Transfused 2 units packed red cell. Hgb 11.0 on 10/11/2017. Diabetes type 2 continue Levemir 20 units QHS. If BG remains low, we will reduce Levemir. Continue sliding scale. Continue pre-meal insulin aspart 5 units 3 times a day before meals. Goal glucose in hospital: 140 - 180. Acute kidney injury chronic kidney disease stage III Creatinine improved from around 1.94 on admission --> 0.92 on 10/14/2017. Continue NS 84 mL/hour avoid all nephrotoxic drugs Hypokalemia - Will replace with PO KCL Full code. DVT prophylaxis- heparin Problem Qualifiers (1) Sepsis: Qualified Codes: A41.9 - Sepsis, unspecified organism (2) Diabetic foot ulcer: Qualified Codes: E10.621 - Type 1 diabetes mellitus with foot ulcer; L97.419 - Non-pressure chronic ulcer of right heel and midfoot with unspecified severity Christian Joe DO Oct 14, 2017 6:21 pm
[2017-10-14] MEDS ORDERED: POTASSIUM CHLORIDE 20 MEQ CONTROLLED RELEASE TAB PO ONE (18:30)
[2017-10-14] MEDS: LEVOFLOXACIN 500 MG TAB PO SCH (18:52)
--- NOTE | 2017-10-14 19:26 | HHI.PR ---
Subjective Remarks Patient seen bedside this evening. Denies nausea, vomiting, fevers, or chills. Denies calf pain. Resting comfortably. Patient did spike fevers overnight Objective Vital Signs Date Time Temp Pulse Resp B/P (MAP) Pulse Ox O2 Delivery O2 Flow Rate FiO2 10/14/17 16:05 100.1 105 20 165/93 (117) 93 10/14/17 11:54 100.3 99 20 154/80 (104) 91 10/14/17 08:00 99.5 98 20 156/85 (108) 95 10/14/17 04:00 100.4 102 18 125/63 (83) 93 10/14/17 04:00 Nasal Cannula 2.00 10/14/17 00:00 99.2 98 18 149/81 (103) 94 10/14/17 00:00 Nasal Cannula 2.00 10/13/17 20:00 100.7 109 18 164/87 (112) 92 10/13/17 20:00 Nasal Cannula 2.00 I/O 10/13/17 10/13/17 10/13/17 10/14/17 10/14/17 10/14/17 07:00 15:00 23:00 07:00 15:00 23:00 Intake Total 1000 ml 1000 ml 480 ml Output Total 1000 ml 700 ml 300 ml 600 ml 300 ml Balance 0 ml 1000 ml -700 ml -300 ml -120 ml -300 ml Intake Oral 1000 ml 480 ml IV Total 1000 ml Output Urine Total 1000 ml 700 ml 300 ml 600 ml 300 ml # Voids 2 1 # Bowel Movements 0 1 1 0 Result Diagram: 10/13/17 1730 10/14/17 0913 Imaging Last Impressions Chest X-Ray 10/13/17 0000 Signed Impressions: Service Date/Time: Friday, October 13, 2017 12:59 - CONCLUSION: Inflammatory changes right lower lobe with mild to moderate failure. Tu Lim MD FACR Carotid Artery Ultrasound 10/13/17 0000 Signed Impressions: Service Date/Time: Friday, October 13, 2017 16:12 - CONCLUSION: No evidence of flow-limiting carotid stenosis. Wm Riley MD Aorta w/Runoff CTA 10/13/17 0000 Signed Impressions: Service Date/Time: Friday, October 13, 2017 22:41 - CONCLUSION: 1. No aortic occlusive disease. 2. No significant iliac inflow stenosis. 3. No significant outflow stenosis. 4. Diffuse bilateral runoff disease with heavily calcified tibial arteries and significant venous contamination precluding patency evaluation beyond the very proximal calf. 5. Small to moderate bilateral pleural effusions with associated airspace disease at the lung bases, presumably atelectasis. 6. Trace free fluid in the deep pelvis. 7. Ancillary findings include hepatic steatosis, nonobstructing punctate calyceal calculus in the inferior pole of the left kidney and small suprapatellar right joint effusion. Lupillo Webster MD Foot MRI 10/12/17 0000 Signed Impressions: Service Date/Time: Thursday, October 12, 2017 08:31 - CONCLUSION: 1. No areas of suspected osteomyelitis. 2. Superficial soft tissue swelling over the third and fourth metatarsals. There is also some edema within the plantar musculature. Wm Dupree MD Ankle MRI 10/11/17 0000 Signed Impressions: Service Date/Time: Wednesday, October 11, 2017 09:41 - CONCLUSION: 1. No definite areas of osteomyelitis. There is some edema within the lateral cuboid adjacent to the suspected surgical defect which is likely reactive. T1 signal is maintained. 2. Multiple areas of focal edema within the midfoot mainly related to the subarticular regions likely related to underlying arthritic change. 3. The patient appears to be status post resection of the fifth metatarsal with post surgical change at the lateral hind and midfoot and a small focus of air seen adjacent to the calcaneus. Wm Dupree MD Foot X-Ray 10/07/17 0000 Signed Impressions: Service Date/Time: Saturday, October 07, 2017 13:15 - CONCLUSION: 1. Prominent soft tissue swelling overlying the fifth proximal metatarsal at the MTP joint. No definitive erosive bony change to suggest osteomyelitis. Lupillo Webster MD Other Results Microbiology Date/Time Source Procedure Growth Status 10/14/17 17:17 Blood Peripheral Aerobic Blood Culture Pending Received 10/14/17 17:17 Blood Peripheral Anaerobic Blood Culture Pending Received 10/11/17 00:00 Wound Foot Gram Stain - Final Complete 10/11/17 00:00 Wound Culture - Final Staphylococcus Aureus Strep Not A,B D Complete Objective Remarks Lower extremity physical exam: Vascular: Dorsalis pedis 1/4, posterior tibial 0/4. Capillary refill time within normal limits to digits 4 right foot, 5 left foot. Edema present right foot and ankle Neuro: Gross sensation intact to bilateral lower extremity. No hyperalgesia noted to bilateral lower extremity Dermatology: Right lateral foot incision extending from fourth metatarsal head to lateral malleolus with sutures intact and serous drainage noted. No purulent drainage noted on compression. Exposed tendon noted. Mild erythema noted to right foot and ankle. Anterior incisions 2 noted with sutures intact and skin well coapted, no purulent drainage upon compression. Left foot segment 5 also noted with hyperkeratotic border and fiber granular base, no surrounding erythema, no purulent drainage upon compression, no probe to bone. Musculoskeletal: Tender to palpation globally to right foot and ankle. Medications and IVs Current Medications Medications (Trade) Dose Ordered Sig/Anna Route Start Time Stop Time Status Last Admin (NS Flush) 2 ml UNSCH PRN IV FLUSH 10/07/17 16:45 (NS Flush) 2 ml BID IV FLUSH 10/07/17 21:00 10/13/17 20:42 (Narcan Inj) 0.4 mg UNSCH PRN IV PUSH 10/07/17 16:45 (Heparin Inj) 5,000 units Q8HR SQ 10/08/17 06:00 10/14/17 15:09 (D50w (Vial) Inj) 50 ml UNSCH PRN IV PUSH 10/08/17 10:30 (Glucagon Inj) 1 mg UNSCH PRN OTHER 10/08/17 10:30 (NovoLOG SUPPLEMENTAL SCALE) 1 ACHS SLIDING SCALE SQ 10/08/17 12:00 10/12/17 21:17 (Lactinex) 1 tab Q12HR PO 10/08/17 21:00 10/14/17 08:53 Sodium Chloride 1,000 ml @ 84 mls/hr [id number] IV 10/10/17 11:00 10/13/17 21:05 (NovoLOG INJ) 5 units TIDAC SQ 10/12/17 08:00 10/14/17 18:56 (Levemir Inj) 15 units HS SQ 10/12/17 21:00 10/13/17 20:43 ([place] 7.5-325 Mg) 1 tab Q6H PRN PO 10/13/17 12:45 10/14/17 16:35 (Morphine Inj) 5 mg Q4H PRN IV PUSH 10/13/17 12:45 10/14/17 09:34 (Morphine Inj) 4 mg Q3H PRN IV PUSH 10/13/17 12:45 (Restoril) 15 mg HS PRN PO 10/13/17 12:45 (Tylenol) 500 mg Q4H PRN PO 10/13/17 13:15 10/13/17 13:15 Ceftriaxone Sodium 2000 mg/ Sodium Chloride 100 ml @ 200 mls/hr Q24H IV 10/13/17 14:00 10/14/17 15:11 (Levaquin) 500 mg DAILY PO 10/14/17 17:00 10/14/17 18:52 Linezolid 300 ml @ 300 mls/hr Q12H IV 10/14/17 17:00 10/14/17 17:09 (KCl) 20 meq Q12HR PO 10/14/17 21:00 10/17/17 20:59 Assessment and Plan Assessment and Plan 57-year-old male status post incision and drainage of right foot and ankle and left foot segment 5 ulcer Patient examined evaluated with all questions answered Patient to OR tomorrow for right foot and ankle incision and drainage in left foot debridement and irrigation N.p.o. after midnight, okay for clear liquid diet in a.m. for breakfast Dressed right foot and ankle with wet-to-dry dressing Dressed left foot with wet-to-dry dressing Continue IV ABX therapy Discussed patient with infectious disease Will obtain new OR deep culture Raquel Hobbs DPM Oct 14, 2017 19:26
[2017-10-14 20:10] VITALS: BP_SYST 158; BP_SYST 169; BP_DIAS 82; BP_DIAS 91; PULSE 103; RESP 18; TEMP 100.4; O2SAT 93
[2017-10-14] MEDS: POTASSIUM CHLORIDE 20 MEQ CONTROLLED RELEASE TAB PO SCH (21:00)
[2017-10-14] MEDS: SODIUM CHLORIDE 0.9% FLUSH 10 ML FLUSH IV FLUSH SCH (21:01)
[2017-10-14] MEDS: SODIUM CHLOR 0.9% 1000 ML INJ 1,000 ML IV SCH (21:01)
[2017-10-14] MEDS: INSULIN DETEMIR 100 UNITS/ML VIAL SQ SCH (21:58)
[2017-10-15] VITALS (13 sets, daily range): BP systolic 132–174; BP diastolic 76–95; PULSE 89–109; RESP 16–20; TEMP 96.4–99.8; O2SAT 90–100
[2017-10-15] MEDS: ACETAMINOPHEN/HYDROcodone 325 MG/7.5 MG TAB PO PRN ×4 (00:30→18:54)
[2017-10-15] MEDS: MORPHINE SULFATE 8 MG/ML INJ IV PUSH PRN (03:40)
[2017-10-15] MEDS: SODIUM CHLORIDE 0.9% FLUSH 10 ML FLUSH IV FLUSH PRN (03:41)
[2017-10-15] MEDS: LINEZOLID 600 MG PREMIX 300 ML IV SCH ×2 (03:42→16:01)
[2017-10-15] MEDS ORDERED: POVIDONE IODINE 5% (ANTISEPSIS KIT) 4 APPLICATIONS EACH NARE PRN (04:45)
[2017-10-15] MEDS ORDERED: CHLORHEXIDINE GLUCONATE 2 % 1 PACK (2 CLOTHS) TOPICAL PRN (04:45)
[2017-10-15] MEDS ORDERED: SODIUM CHLORID 0.9% 500 ML IV PRN (04:45)
[2017-10-15] MEDS ORDERED: LACTATED RINGER'S 1000 ML IV PRN (04:45)
[2017-10-15] MEDS: HEPARIN SODIUM - SQ 10,000 UNITS/ML VIAL SQ SCH ×3 (05:54→22:00)
[2017-10-15] MEDS: INSULIN ASPART SUPPLEMENTAL SCALE SQ SCH ×4 (08:00→21:00)
[2017-10-15] MEDS: INSULIN ASPART 1,000 UNITS/10 ML VIAL SQ SCH ×3 (08:00→17:00)
[2017-10-15] MEDS: LACTOBACILLUS ACIDOPHILUS TAB PO SCH ×2 (08:39→21:00)
[2017-10-15] MEDS: SODIUM CHLORIDE 0.9% FLUSH 10 ML FLUSH IV FLUSH SCH ×2 (08:39→21:00)
[2017-10-15] MEDS: POTASSIUM CHLORIDE 20 MEQ CONTROLLED RELEASE TAB PO SCH ×2 (08:39→21:00)
[2017-10-15] MEDS: LEVOFLOXACIN 500 MG TAB PO SCH (08:39)
[2017-10-15 09:19] LABS: INTERNATIONAL NORMALIZED RATIO 1.2 RATIO; PROTHROMBIN TIME - PATIENT 12.6 SEC (9.8-11.6)
[2017-10-15] MEDS: MORPHINE SULFATE 4 MG/ML INJ IV PUSH PRN ×2 (10:00→15:55)
[2017-10-15] MEDS: SODIUM CHLOR 0.9% 1000 ML INJ 1,000 ML IV SCH (10:03)
[2017-10-15] MEDS ORDERED: PROPOFOL 200 MG/20 ML AMP IV ONE (12:00)
[2017-10-15] MEDS ORDERED: LIDOCAINE HCL 1% PF 5 ML SYRINGE OTHER ONE (12:00)
[2017-10-15] MEDS: cefTRIAXone INJ 2,000 MG in SODIUM CHLORIDE 0.9% INJ 100 ML IV SCH (13:00)
--- NOTE | 2017-10-15 14:38 | HHI.PR ---
Subjective Remarks Follow up for bacteremia, diabetic foot infection. Patient is currently doing well. Denies any chest pain, shortness of breath, fever or chills. However fever was documented last night. Fever was about 100.4F. He reports right knee swelling. Objective Vitals Vital Signs Date Time Temp Pulse Resp B/P (MAP) Pulse Ox O2 Delivery O2 Flow Rate FiO2 10/15/17 08:00 99.3 90 20 142/85 (104) 92 10/15/17 07:00 Room Air 10/15/17 04:00 99.3 89 16 132/76 (94) 95 10/15/17 00:00 99.1 91 18 133/81 (98) 95 10/14/17 20:10 100.4 103 18 169/91 (117) 93 158/82 (107) 10/14/17 20:00 Nasal Cannula 2.00 10/14/17 16:05 100.1 105 20 165/93 (117) 93 I/O 10/14/17 10/14/17 10/14/17 10/15/17 10/15/17 10/15/17 07:00 15:00 23:00 07:00 15:00 23:00 Intake Total 480 ml 252 ml Output Total 300 ml 600 ml 300 ml 600 ml Balance -300 ml -120 ml -300 ml -600 ml 252 ml Intake Oral 480 ml IV Total 252 ml Output Urine Total 300 ml 600 ml 300 ml 600 ml # Voids 2 1 # Bowel Movements 1 0 1 Result Diagram: 10/13/17 1730 10/14/17 0913 Imaging Last Impressions Chest X-Ray 10/13/17 0000 Signed Impressions: Service Date/Time: Friday, October 13, 2017 12:59 - CONCLUSION: Inflammatory changes right lower lobe with mild to moderate failure. Tu Lim MD FACR Carotid Artery Ultrasound 10/13/17 0000 Signed Impressions: Service Date/Time: Friday, October 13, 2017 16:12 - CONCLUSION: No evidence of flow-limiting carotid stenosis. Wm Riley MD Aorta w/Runoff CTA 10/13/17 0000 Signed Impressions: Service Date/Time: Friday, October 13, 2017 22:41 - CONCLUSION: 1. No aortic occlusive disease. 2. No significant iliac inflow stenosis. 3. No significant outflow stenosis. 4. Diffuse bilateral runoff disease with heavily calcified tibial arteries and significant venous contamination precluding patency evaluation beyond the very proximal calf. 5. Small to moderate bilateral pleural effusions with associated airspace disease at the lung bases, presumably atelectasis. 6. Trace free fluid in the deep pelvis. 7. Ancillary findings include hepatic steatosis, nonobstructing punctate calyceal calculus in the inferior pole of the left kidney and small suprapatellar right joint effusion. Lupillo Webster MD Foot MRI 10/12/17 0000 Signed Impressions: Service Date/Time: Thursday, October 12, 2017 08:31 - CONCLUSION: 1. No areas of suspected osteomyelitis. 2. Superficial soft tissue swelling over the third and fourth metatarsals. There is also some edema within the plantar musculature. Wm Dupree MD Ankle MRI 10/11/17 0000 Signed Impressions: Service Date/Time: Wednesday, October 11, 2017 09:41 - CONCLUSION: 1. No definite areas of osteomyelitis. There is some edema within the lateral cuboid adjacent to the suspected surgical defect which is likely reactive. T1 signal is maintained. 2. Multiple areas of focal edema within the midfoot mainly related to the subarticular regions likely related to underlying arthritic change. 3. The patient appears to be status post resection of the fifth metatarsal with post surgical change at the lateral hind and midfoot and a small focus of air seen adjacent to the calcaneus. Wm Dupree MD Foot X-Ray 10/07/17 0000 Signed Impressions: Service Date/Time: Saturday, October 07, 2017 13:15 - CONCLUSION: 1. Prominent soft tissue swelling overlying the fifth proximal metatarsal at the MTP joint. No definitive erosive bony change to suggest osteomyelitis. Lupillo Webster MD Objective Remarks GENERAL: Alert, NAD. SKIN: Warm and dry. HEAD: Normocephalic. EYES: No scleral icterus. No injection or drainage. NECK: Supple, trachea midline. No JVD or lymphadenopathy. CARDIOVASCULAR: Regular rate and rhythm without murmurs, gallops, or rubs. RESPIRATORY: Breath sounds equal bilaterally. No accessory muscle use. GASTROINTESTINAL: Abdomen soft, non-tender, nondistended. MUSCULOSKELETAL: No cyanosis, or edema. Right foot wrapped in dressing. Left foot, lateral side has an old wound. Right knee is swollen and warm to touch compared to left knee. BACK: Nontender without obvious deformity. No CVA tenderness. Procedures s/p Right foot and ankle incision drainage, 5th metatarsal resection, 5th digit amputation 10/08/17 A/P Problem List: (1) Osteomyelitis of foot ICD Code: M86.9 - Osteomyelitis, unspecified (2) Leukocytosis ICD Code: D72.829 - Elevated white blood cell count, unspecified (3) Dehydration with hyponatremia ICD Code: E87.1 - Hypo-osmolality and hyponatremia (4) Acute kidney injury ICD Code: N17.9 - Acute kidney failure, unspecified (5) Sepsis ICD Code: A41.9 - Sepsis, unspecified organism Status: Acute (6) Diabetic foot ulcer ICD Code: E11.621 - Type 2 diabetes mellitus with foot ulcer; L97.509 - Non- pressure chronic ulcer of other part of unspecified foot with unspecified severity Status: Acute (7) Acute renal failure superimposed on stage 3 chronic kidney disease ICD Code: N17.9 - Acute kidney failure, unspecified; N18.3 - Chronic kidney disease, stage 3 (moderate) (8) Bacteremia due to Gram-positive bacteria ICD Code: R78.81 - Bacteremia (9) Postoperative anemia ICD Code: D64.9 - Anemia, unspecified Assessment and Plan 57 year-old man with Sepsis - Secondary to diabetic foot infection Right foot osteomyelitis Diabetic foot infection Bacteremia with gram-positive cocci Possible hospital-acquired pneumonia s/p Right foot and ankle incision drainage, 5th metatarsal resection, 5th digit amputation 10/08/17 ID and podiatry following. Wound culture positive for Staph and Strep not A, B, D Discussed with infectious disease. Patient is currently on ceftriaxone, Levaquin, Zyvox. Probable further debridement on 10/15/2017 by podiatry Right knee swelling, pain - Knee is warm to touch compared to left knee - Concerning for gout vs. septic arthritis. - He is already on Levaquin, Ceftriaxone as well as Zyvox. -Discussed with infectious disease. Will obtain a 4 view complete knee x- ray. If effusion present, will obtain arthrocentesis by interventional radiology. Peripheral vascular disease - vascular surgery is following. Patient underwent CTA with runoff. Per vascular surgery, no intervention at this point. Postoperatively anemia Transfused 2 units packed red cell. Hgb 11.0 on 10/11/2017. Diabetes type 2 Will continue Levemir to 15 units nightly Continue pre-meal insulin aspart 5 units 3 times a day before meals. Goal glucose in hospital: 140 - 180. Acute kidney injury chronic kidney disease stage III Creatinine improved from around 1.94 on admission --> 0.92 on 10/14/2017. Continue NS 84 mL/hour avoid all nephrotoxic drugs Hypokalemia - Will replace with PO KCL Full code. DVT prophylaxis- heparin Problem Qualifiers (1) Sepsis: Qualified Codes: A41.9 - Sepsis, unspecified organism (2) Diabetic foot ulcer: Qualified Codes: E10.621 - Type 1 diabetes mellitus with foot ulcer; L97.419 - Non-pressure chronic ulcer of right heel and midfoot with unspecified severity Christian Joe DO Oct 15, 2017 14:38
--- NOTE | 2017-10-15 15:41 | RADRPT ---
EXAM DATE/TIME: 10/15/2017 15:26 [facility] COMPARISON: No previous studies available for comparison. INDICATIONS : Right knee swelling and warmth, no injury. MEDICAL HISTORY : Right foot partial amputation. SURGICAL HISTORY : None. ENCOUNTER: Initial ACUITY: 2 days PAIN SCORE: 10/10 LOCATION: Right knee. FINDINGS: Large joint effusion is evident. Moderate vascular calcifications are noted. Bone density is normal. Alignment anatomic.. Fracture is not appreciated. CONCLUSION: Large joint effusion otherwise negative. Tu Lim MD FACR on October 15, 2017 at 15:39 Board Certified Radiologist. This report was verified electronically.
[2017-10-15] MEDS ORDERED: BUPIVACAINE HCL PF 0.5% 30 ML VIAL ONE (19:57)
[2017-10-15] MEDS ORDERED: LIDOCAINE HCL 2% 50 ML VIAL ONE (19:57)
--- NOTE | 2017-10-15 20:27 | HHI.PR ---
Subjective Remarks Patient seen bedside preop. Denies nausea, vomiting, fevers, or chills. Is in agreement with surgical intervention. Objective Vital Signs Date Time Temp Pulse Resp B/P (MAP) Pulse Ox O2 Delivery O2 Flow Rate FiO2 10/15/17 19:54 91 Nasal Cannula 2 10/15/17 19:54 99.2 97 16 155/82 (106) 91 10/15/17 19:54 91 10/15/17 19:30 99.8 102 18 142/92 (109) 92 10/15/17 16:15 98.7 90 17 151/84 (106) 90 10/15/17 16:00 98.1 91 20 150/79 (102) 94 10/15/17 12:00 98.7 98 20 166/95 (118) 100 10/15/17 08:00 99.3 90 20 142/85 (104) 92 10/15/17 07:00 Room Air 10/15/17 04:00 99.3 89 16 132/76 (94) 95 10/15/17 00:00 99.1 91 18 133/81 (98) 95 I/O 10/14/17 10/14/17 10/14/17 10/15/17 10/15/17 10/15/17 07:00 15:00 23:00 07:00 15:00 23:00 Intake Total 480 ml 592 ml 1960 ml Output Total 300 ml 600 ml 300 ml 600 ml 600 ml Balance -300 ml -120 ml -300 ml -600 ml -8 ml 1960 ml Intake Oral 480 ml 240 ml IV Total 352 ml 1960 ml Output Urine Total 300 ml 600 ml 300 ml 600 ml 600 ml # Voids 2 1 # Bowel Movements 1 0 1 Result Diagram: 10/13/17 1730 10/14/17 0913 Imaging Last Impressions Knee X-Ray 10/15/17 0000 Signed Impressions: Service Date/Time: Sunday, October 15, 2017 15:26 - CONCLUSION: Large joint effusion otherwise negative. Tu Lim MD FACR Chest X-Ray 10/13/17 0000 Signed Impressions: Service Date/Time: Friday, October 13, 2017 12:59 - CONCLUSION: Inflammatory changes right lower lobe with mild to moderate failure. Tu Lim MD FACR Carotid Artery Ultrasound 10/13/17 0000 Signed Impressions: Service Date/Time: Friday, October 13, 2017 16:12 - CONCLUSION: No evidence of flow-limiting carotid stenosis. Wm Riley MD Aorta w/Runoff CTA 10/13/17 0000 Signed Impressions: Service Date/Time: Friday, October 13, 2017 22:41 - CONCLUSION: 1. No aortic occlusive disease. 2. No significant iliac inflow stenosis. 3. No significant outflow stenosis. 4. Diffuse bilateral runoff disease with heavily calcified tibial arteries and significant venous contamination precluding patency evaluation beyond the very proximal calf. 5. Small to moderate bilateral pleural effusions with associated airspace disease at the lung bases, presumably atelectasis. 6. Trace free fluid in the deep pelvis. 7. Ancillary findings include hepatic steatosis, nonobstructing punctate calyceal calculus in the inferior pole of the left kidney and small suprapatellar right joint effusion. Lupillo Webster MD Foot MRI 10/12/17 0000 Signed Impressions: Service Date/Time: Thursday, October 12, 2017 08:31 - CONCLUSION: 1. No areas of suspected osteomyelitis. 2. Superficial soft tissue swelling over the third and fourth metatarsals. There is also some edema within the plantar musculature. Wm Dupree MD Ankle MRI 10/11/17 0000 Signed Impressions: Service Date/Time: Wednesday, October 11, 2017 09:41 - CONCLUSION: 1. No definite areas of osteomyelitis. There is some edema within the lateral cuboid adjacent to the suspected surgical defect which is likely reactive. T1 signal is maintained. 2. Multiple areas of focal edema within the midfoot mainly related to the subarticular regions likely related to underlying arthritic change. 3. The patient appears to be status post resection of the fifth metatarsal with post surgical change at the lateral hind and midfoot and a small focus of air seen adjacent to the calcaneus. Wm Dupree MD Foot X-Ray 10/07/17 0000 Signed Impressions: Service Date/Time: Saturday, October 07, 2017 13:15 - CONCLUSION: 1. Prominent soft tissue swelling overlying the fifth proximal metatarsal at the MTP joint. No definitive erosive bony change to suggest osteomyelitis. Lupillo Webster MD Procedures s/p right foot incision and drainage Other Results Microbiology Date/Time Source Procedure Growth Status 10/14/17 17:17 Blood Peripheral Aerobic Blood Culture - Preliminary NO GROWTH IN 1 DAY Resulted 10/14/17 17:17 Blood Peripheral Anaerobic Blood Culture - Preliminary NO GROWTH IN 1 DAY Resulted 10/11/17 00:00 Wound Foot Gram Stain - Final Complete 10/11/17 00:00 Wound Culture - Final Staphylococcus Aureus Strep Not A,B D Complete Objective Remarks Lower extremity physical exam: No changes to physical exam since 10/15/17 Vascular: Dorsalis pedis 1/4, posterior tibial 0/4. Capillary refill time within normal limits to digits 4 right foot, 5 left foot. Edema present right foot and ankle Neuro: Gross sensation intact to bilateral lower extremity. No hyperalgesia noted to bilateral lower extremity Dermatology: Right lateral foot incision extending from fourth metatarsal head to lateral malleolus with sutures intact and serous drainage noted. No purulent drainage noted on compression. Exposed tendon noted. Mild erythema noted to right foot and ankle. Anterior incisions 2 noted with sutures intact and skin well coapted, no purulent drainage upon compression. Left foot segment 5 also noted with hyperkeratotic border and fiber granular base, no surrounding erythema, no purulent drainage upon compression, no probe to bone. Musculoskeletal: Tender to palpation globally to right foot and ankle. Medications and IVs Current Medications Medications (Trade) Dose Ordered Sig/Anna Route Start Time Stop Time Status Last Admin (NS Flush) 2 ml UNSCH PRN IV FLUSH 10/07/17 16:45 10/15/17 03:41 (NS Flush) 2 ml BID IV FLUSH 10/07/17 21:00 10/14/17 21:01 (Narcan Inj) 0.4 mg UNSCH PRN IV PUSH 10/07/17 16:45 (Heparin Inj) 5,000 units Q8HR SQ 10/08/17 06:00 10/14/17 21:00 (D50w (Vial) Inj) 50 ml UNSCH PRN IV PUSH 10/08/17 10:30 (Glucagon Inj) 1 mg UNSCH PRN OTHER 10/08/17 10:30 (NovoLOG SUPPLEMENTAL SCALE) 1 ACHS SLIDING SCALE SQ 10/08/17 12:00 10/12/17 21:17 (Lactinex) 1 tab Q12HR PO 10/08/17 21:00 10/15/17 08:39 Sodium Chloride 1,000 ml @ 84 mls/hr [id number] IV 10/10/17 11:00 10/15/17 10:03 (NovoLOG INJ) 5 units TIDAC SQ 10/12/17 08:00 10/14/17 18:56 (Levemir Inj) 15 units HS SQ 10/12/17 21:00 10/14/17 21:58 ([place] 7.5-325 Mg) 1 tab Q6H PRN PO 10/13/17 12:45 10/15/17 18:54 (Morphine Inj) 5 mg Q4H PRN IV PUSH 10/13/17 12:45 10/15/17 03:40 (Morphine Inj) 4 mg Q3H PRN IV PUSH 10/13/17 12:45 10/15/17 15:55 (Restoril) 15 mg HS PRN PO 10/13/17 12:45 (Tylenol) 500 mg Q4H PRN PO 10/13/17 13:15 10/13/17 13:15 Ceftriaxone Sodium 2000 mg/ Sodium Chloride 100 ml @ 200 mls/hr Q24H IV 10/13/17 14:00 10/15/17 13:00 (Levaquin) 500 mg DAILY PO 10/14/17 17:00 10/15/17 08:39 Linezolid 300 ml @ 300 mls/hr Q12H IV 10/14/17 17:00 10/15/17 16:01 (KCl) 20 meq Q12HR PO 10/14/17 21:00 10/17/17 20:59 10/15/17 08:39 Lactated Ringer's 1,000 ml @ 30 mls/hr Q24H PRN IV 10/15/17 04:45 10/18/17 04:44 Sodium Chloride 500 ml @ 30 mls/hr [id number] PRN IV 10/15/17 04:45 10/18/17 04:44 (Betadine 5% Antisepsis Kit) 1 applic DIRECTOR QUALITY ASSURANCE PRN EACH NARE 10/15/17 04:45 10/18/17 04:44 (Chlorhexidine 2% Cloth) 3 pack DIRECTOR QUALITY ASSURANCE PRN TOPICAL 10/15/17 04:45 10/18/17 04:44 Assessment and Plan Assessment and Plan 57-year-old male status post incision and drainage of right foot and ankle and left foot segment 5 ulcer Patient examined evaluated with all questions answered Patient to OR today for right foot and ankle incision and drainage; left foot debridement and irrigation Patient has been NPO and ready to move forward with surgical intervention Consent signed and discussed Will obtain new OR deep culture Raquel Hobbs DPM Oct 15, 2017 20:27
[2017-10-15] MEDS: INSULIN DETEMIR 100 UNITS/ML VIAL SQ SCH (21:00)
[2017-10-15] MEDS ORDERED: VANCOMYCIN 500 MG VIAL ONE (21:07)
[2017-10-15] MEDS ORDERED: DO NOT ADM ANY ANTICOAGULANT DRUGS PRN (22:15)
[2017-10-15] MEDS ORDERED: Post-op Orders (for Pharmacy) XX ONE (22:30)
--- NOTE | 2017-10-15 22:30 | HHI.PR ---
Immediate Post Op Note Procedure Date: Oct 15, 2017 Pre Op Diagnosis: Right foot and ankle infection Left foot sub-fifth met ulceration Post Op Diagnosis: Same as preop diagnosis Surgeon: Raquel Hobbs Rotary Adjuster(s): None Procedure: 1. Right foot and ankle incision and drainage with wound VAC placement 2. Left foot submetatarsal 5 ulceration debridement and irrigation Findings: None Additional Information: None Complications: None Specimen(s) removed: None Estimated blood loss: 5 cc Anesthesia: General Drains: None IVF Patient to: PACU Patient Condition: Raquel Freedman DPM Oct 15, 2017 22:30
[2017-10-16] MEDS: MORPHINE SULFATE 8 MG/ML INJ IV PUSH PRN ×4 (00:24→21:28)
[2017-10-16] MEDS: SODIUM CHLOR 0.9% 1000 ML INJ 1,000 ML IV SCH ×2 (00:29→08:56)
[2017-10-16] MEDS: ACETAMINOPHEN/HYDROcodone 325 MG/7.5 MG TAB PO PRN ×3 (03:21→19:34)
[2017-10-16 04:00] VITALS: BP 136/89; PULSE 109; RESP 20; TEMP 98; O2SAT 92
[2017-10-16] MEDS: LINEZOLID 600 MG PREMIX 300 ML IV SCH ×2 (05:00→17:18)
[2017-10-16] MEDS: HEPARIN SODIUM - SQ 10,000 UNITS/ML VIAL SQ SCH ×3 (05:08→21:26)
[2017-10-16 08:00] VITALS: BP 152/89; PULSE 108; RESP 20; TEMP 100; O2SAT 89
[2017-10-16] MEDS: INSULIN ASPART SUPPLEMENTAL SCALE SQ SCH ×4 (08:54→21:00)
[2017-10-16] MEDS: INSULIN ASPART 1,000 UNITS/10 ML VIAL SQ SCH ×3 (08:54→17:50)
[2017-10-16] MEDS: POTASSIUM CHLORIDE 20 MEQ CONTROLLED RELEASE TAB PO SCH ×2 (08:55→21:26)
[2017-10-16] MEDS: LEVOFLOXACIN 500 MG TAB PO SCH (08:55)
[2017-10-16] MEDS: LACTOBACILLUS ACIDOPHILUS TAB PO SCH ×2 (08:55→21:26)
[2017-10-16] MEDS: SODIUM CHLORIDE 0.9% FLUSH 10 ML FLUSH IV FLUSH SCH ×2 (09:00→21:27)
[2017-10-16 12:00] VITALS: BP 156/94; PULSE 98; RESP 20; TEMP 97.8; O2SAT 92
[2017-10-16] MEDS: cefTRIAXone INJ 2,000 MG in SODIUM CHLORIDE 0.9% INJ 100 ML IV SCH (14:35)
--- NOTE | 2017-10-16 14:44 | HHI.IDPN ---
Subjective Subjective Remarks Mr. Braxton is a 57-year-old male with past medical history significant for diabetes type 2, prior diabetic foot ulcer treated in October 2016 thereafter was hospitalized from May 08, 2017 to May 29, 2017 due to foot ulcer. During that hospitalization patient underwent surgical debridement with wound VAC placement. Patient reports that he was seen by Dr. Pritchard during that admission. Patient reports that he was discharged on IV ceftriaxone using a PICC line. Patient had home health care visits him and continue to receive wound VAC changes at home. He also was subsequently seen at wound care clinic for ongoing wound care as well as [facility] for his primary care needs. Patient reports that his medications were recently adjusted and a new insulin was introduced. Patient reports that he was diagnosed with a possible staph or strep infection and has been on oral Bactrim approximately 2 weeks prior to admission. Due to worsening foot infection as well as possible reaction to the new insulin patient presented to the emergency department [facility]. Patient reports that he was having fevers, chills, loss of appetite and diarrhea for the past 2 days associated with frequent urination. Patient denies any dysuria. He reports dizziness and reported history of falls 3 days ago while on the toilet. Patient's reports that she was unaware of this history of fall. He denies any head injury. Patient reports hitting his right foot and shoulder but that he was able to get off the floor by himself. Patient had a sepsis workup initiated on admission. Wound cultures are positive for strep as well as blood cultures are now positive for gram-positive likely strep. Repeat blood cultures have been ordered. Podiatry is seeing the patient and there is a plan for surgical intervention and possible amputation of the involved digit. Infectious disease is consulted for evaluation and management of right fifth toe osteomyelitis with associated cellulitis, gram-positive bacteremia and sepsis. S/p amputation foot and blood clx + MSSA and strep + osteo extending to margins Overnight events reviewed. fever overnight 100 F. No rash No diarrhea ECHO no veg's. s/p podiatry eval and surgery appreciate help. Recd call yday about right knee worsening pain and swelling. Xray knee and arthrocentesis and Ortho consult in place. Antibiotics Ceftriaxone IV Zyvox IV Levaquin Lines Line sites with no e.o infection Past Medical History Past Medical History DM II Right foot ulcer with possible osteomyelitis in the past. Has received IV antibiotics long-term using a PICC line in the past. Renal stones Past Surgical History Right foot debridement of wound removal of kidney stones Tonsillitis Allergies: Coded Allergies: No Known Allergies (Unverified Adverse Reaction, Unknown, 09/15/17) Uncoded Allergies: citizen of [place] dressing (Allergy, Severe, Anaphylaxis, 10/07/17) Objective . Vital Signs Date Time Temp Pulse Resp B/P (MAP) Pulse Ox O2 Delivery O2 Flow Rate FiO2 10/16/17 08:00 100.0 108 20 152/89 (110) 89 10/16/17 04:00 98.0 109 20 136/89 (105) 92 10/15/17 23:15 96.4 109 20 174/86 (115) 91 10/15/17 22:30 90 14 115/68 (84) 91 Nasal Cannula 2 10/15/17 22:15 97.7 94 21 114/65 (81) 93 Nasal Cannula 2 10/15/17 20:56 94 Nasal Cannula 3.00 10/15/17 20:00 99.8 102 20 142/92 (109) 92 Manual Cuff/Auscultation Automatic Cuff 10/15/17 19:54 91 Nasal Cannula 2 10/15/17 19:54 99.2 97 16 155/82 (106) 91 10/15/17 19:54 91 10/15/17 19:35 100 10/15/17 19:30 99.8 102 18 142/92 (109) 92 10/15/17 19:00 Room Air 10/15/17 16:15 98.7 90 17 151/84 (106) 90 10/15/17 16:00 98.1 91 20 150/79 (102) 94 . Microbiology Date/Time Source Procedure Growth Status 10/14/17 17:17 Blood Peripheral Aerobic Blood Culture - Preliminary NO GROWTH IN 2 DAYS Resulted 10/14/17 17:17 Blood Peripheral Anaerobic Blood Culture - Preliminary NO GROWTH IN 2 DAYS Resulted 10/14/17 17:12 Blood Peripheral Aerobic Blood Culture - Preliminary NO GROWTH IN 2 DAYS Resulted 10/14/17 17:12 Blood Peripheral Anaerobic Blood Culture - Preliminary NO GROWTH IN 2 DAYS Resulted Imaging Last Impressions Foot MRI 10/08/17 0000 Signed Impressions: Service Date/Time: Sunday, October 08, 2017 09:17 - CONCLUSION: 1. Evidence of cellulitis with 1 cm abscess with peripheral enhancement in the dorsal soft tissues adjacent to the distal 5th digit metatarsus. 2. There is signal abnormality (T1 and T2 prolongation) in the distal metaphysis and epiphysis of the 5th metatarsal bone without definite enhancement in the marrow. This is located adjacent to the soft tissue abscess. Some signal abnormality (T2 prolongation) seen in the same region of the metatarsal bone prior MRI in April 2017, making the significance of the finding uncertain. Differential considerations include both chronic and acute osteomyelitis. Elías Keane MD ADDENDUM: The abscess adjacent to the distal 5th metatarsus does extend proximally anterior and lateral to the 5th metatarsus and there is a 2nd fluid collection which measures 1.7 x 0.6 cm, located anterior and lateral to the base of the 5th metatarsus. This has similar signal characteristics and enhancement pattern as the distal fluid component. In addition, there is a thin amount of fluid tracking in a non-distending the peritoneal tendon sheath, this is only seen on the sagittal images. Elías Keane MD Foot X-Ray 10/07/17 0000 Signed Impressions: Service Date/Time: Saturday, October 07, 2017 13:15 - CONCLUSION: 1. Prominent soft tissue swelling overlying the fifth proximal metatarsal at the MTP joint. No definitive erosive bony change to suggest osteomyelitis. Lupillo Webster MD Physical Exam GENERAL: This is a well-nourished, well-developed patient, in no apparent distress. SKIN: No rashes, ecchymoses or lesions. Cool and dry. HEAD: Atraumatic. Normocephalic. No temporal or scalp tenderness. EYES: Pupils equal round and reactive. Extraocular motions intact. No scleral icterus. No injection or drainage. ENT: Nose without bleeding, purulent drainage or septal hematoma. Throat without erythema, tonsillar hypertrophy or exudate. Uvula midline. Airway patent. NECK: Trachea midline.Supple, nontender, no meningeal signs. CARDIOVASCULAR: Heart sounds audible. RESPIRATORY: Clear to auscultation. Breath sounds equal bilaterally. No wheezes , rales, or rhonchi. GASTROINTESTINAL: Abdomen soft, non-tender, nondistended. MUSCULOSKELETAL: Right foot in post op dressing with vac in place. Left foot in dressing. Right knee with warmth, erythema mostly on medial aspect. Right knee with decreased ROM. NEUROLOGICAL: Awake and alert. Nonfocal exam Psych cooperative IV line sites with no evidence of infection. Assessment & Plan Remarks Sepsis present on admission Strep bacteremia secondary to right foot osteomyelitis and cellulitis Staph MSSA bacteremia high grade. Strep not AB,D and Staph infection Right foot fifth MPJ osteomyelitis Right foot cellulitis Pneumonia vs septic emboli. Diabetes type 2 uncontrolled Acute renal failure: Sepsis, prerenal: improving non diagnostic arterial study (densely calcified vessels) Recommendations: Continue Ceftriaxone (BCX were negative at 4 days and no clinical e/o failure prior to switch) Continue Levaquin for broadening GNR coverage and also atypical PNA coverage. Concern the lung infiltrates could be septic emboli. Continue Zyvox IV (MRSA PNA and MRSA new HCA infection coverage, additionally helps with toxin neutralization for Strep) CT C/A/P to look for evidence of dissemination: vital organ abscesses. Follow cultures Follow clinically. vivek patient: he would like pain medicine shot before thoracentesis. vivek Martínez to place a preprocedure pain medicine order. Appreciate and await ortho input. Chuyita Quinteros MD Oct 16, 2017 14:44
--- NOTE | 2017-10-16 14:53 | HHI.PR ---
Subjective Remarks Follow up for bacteremia, diabetic foot infection, right knee effusion. Patient is currently doing well. He is happy with surgical intervention. Denies any chest pain, shortness of breath, fever or chills. Objective Vitals Vital Signs Date Time Temp Pulse Resp B/P (MAP) Pulse Ox O2 Delivery O2 Flow Rate FiO2 10/16/17 08:00 100.0 108 20 152/89 (110) 89 10/16/17 04:00 98.0 109 20 136/89 (105) 92 10/15/17 23:15 96.4 109 20 174/86 (115) 91 10/15/17 22:30 90 14 115/68 (84) 91 Nasal Cannula 2 10/15/17 22:15 97.7 94 21 114/65 (81) 93 Nasal Cannula 2 10/15/17 20:56 94 Nasal Cannula 3.00 10/15/17 20:00 99.8 102 20 142/92 (109) 92 Manual Cuff/Auscultation Automatic Cuff 10/15/17 19:54 91 Nasal Cannula 2 10/15/17 19:54 99.2 97 16 155/82 (106) 91 10/15/17 19:54 91 10/15/17 19:35 100 10/15/17 19:30 99.8 102 18 142/92 (109) 92 10/15/17 19:00 Room Air 10/15/17 16:15 98.7 90 17 151/84 (106) 90 10/15/17 16:00 98.1 91 20 150/79 (102) 94 I/O 10/15/17 10/15/17 10/15/17 10/16/17 10/16/17 10/16/17 07:00 15:00 23:00 07:00 15:00 23:00 Intake Total 592 ml 2560 ml 480 ml Output Total 600 ml 600 ml 210 ml 600 ml Balance -600 ml -8 ml 2350 ml -120 ml Intake Oral 240 ml 480 ml IV Total 352 ml 2560 ml Output Urine Total 600 ml 600 ml 200 ml 600 ml Estimated Blood Loss 10 ml # Voids 1 2 # Bowel Movements 1 0 Result Diagram: 10/13/17 1730 10/14/17 0913 Imaging Last Impressions Knee X-Ray 10/15/17 0000 Signed Impressions: Service Date/Time: Sunday, October 15, 2017 15:26 - CONCLUSION: Large joint effusion otherwise negative. Tu Lim MD FACR Chest X-Ray 10/13/17 0000 Signed Impressions: Service Date/Time: Friday, October 13, 2017 12:59 - CONCLUSION: Inflammatory changes right lower lobe with mild to moderate failure. Tu Lim MD FACR Carotid Artery Ultrasound 10/13/17 0000 Signed Impressions: Service Date/Time: Friday, October 13, 2017 16:12 - CONCLUSION: No evidence of flow-limiting carotid stenosis. Wm Riley MD Aorta w/Runoff CTA 10/13/17 0000 Signed Impressions: Service Date/Time: Friday, October 13, 2017 22:41 - CONCLUSION: 1. No aortic occlusive disease. 2. No significant iliac inflow stenosis. 3. No significant outflow stenosis. 4. Diffuse bilateral runoff disease with heavily calcified tibial arteries and significant venous contamination precluding patency evaluation beyond the very proximal calf. 5. Small to moderate bilateral pleural effusions with associated airspace disease at the lung bases, presumably atelectasis. 6. Trace free fluid in the deep pelvis. 7. Ancillary findings include hepatic steatosis, nonobstructing punctate calyceal calculus in the inferior pole of the left kidney and small suprapatellar right joint effusion. Lupillo Webster MD Foot MRI 10/12/17 0000 Signed Impressions: Service Date/Time: Thursday, October 12, 2017 08:31 - CONCLUSION: 1. No areas of suspected osteomyelitis. 2. Superficial soft tissue swelling over the third and fourth metatarsals. There is also some edema within the plantar musculature. Wm Dupree MD Ankle MRI 10/11/17 0000 Signed Impressions: Service Date/Time: Wednesday, October 11, 2017 09:41 - CONCLUSION: 1. No definite areas of osteomyelitis. There is some edema within the lateral cuboid adjacent to the suspected surgical defect which is likely reactive. T1 signal is maintained. 2. Multiple areas of focal edema within the midfoot mainly related to the subarticular regions likely related to underlying arthritic change. 3. The patient appears to be status post resection of the fifth metatarsal with post surgical change at the lateral hind and midfoot and a small focus of air seen adjacent to the calcaneus. Wm Dupree MD Foot X-Ray 10/07/17 0000 Signed Impressions: Service Date/Time: Saturday, October 07, 2017 13:15 - CONCLUSION: 1. Prominent soft tissue swelling overlying the fifth proximal metatarsal at the MTP joint. No definitive erosive bony change to suggest osteomyelitis. Lupillo Webster MD Objective Remarks GENERAL: Alert, NAD. SKIN: Warm and dry. HEAD: Normocephalic. EYES: No scleral icterus. No injection or drainage. NECK: Supple, trachea midline. No JVD or lymphadenopathy. CARDIOVASCULAR: Regular rate and rhythm without murmurs, gallops, or rubs. RESPIRATORY: Breath sounds equal bilaterally. No accessory muscle use. GASTROINTESTINAL: Abdomen soft, non-tender, nondistended. MUSCULOSKELETAL: No cyanosis, or edema. Right foot wrapped in dressing. Left foot, lateral side has an old wound. Right knee is swollen and warm to touch compared to left knee. BACK: Nontender without obvious deformity. No CVA tenderness. Procedures s/p Right foot and ankle incision drainage, 5th metatarsal resection, 5th digit amputation 10/08/17 A/P Problem List: (1) Osteomyelitis of foot ICD Code: M86.9 - Osteomyelitis, unspecified (2) Leukocytosis ICD Code: D72.829 - Elevated white blood cell count, unspecified (3) Dehydration with hyponatremia ICD Code: E87.1 - Hypo-osmolality and hyponatremia (4) Acute kidney injury ICD Code: N17.9 - Acute kidney failure, unspecified (5) Sepsis ICD Code: A41.9 - Sepsis, unspecified organism Status: Acute (6) Diabetic foot ulcer ICD Code: E11.621 - Type 2 diabetes mellitus with foot ulcer; L97.509 - Non- pressure chronic ulcer of other part of unspecified foot with unspecified severity Status: Acute (7) Acute renal failure superimposed on stage 3 chronic kidney disease ICD Code: N17.9 - Acute kidney failure, unspecified; N18.3 - Chronic kidney disease, stage 3 (moderate) (8) Bacteremia due to Gram-positive bacteria ICD Code: R78.81 - Bacteremia (9) Postoperative anemia ICD Code: D64.9 - Anemia, unspecified Assessment and Plan 57 year-old man with Sepsis - Secondary to diabetic foot infection Right foot osteomyelitis Diabetic foot infection Bacteremia with gram-positive cocci Possible hospital-acquired pneumonia s/p Right foot and ankle incision drainage, 5th metatarsal resection, 5th digit amputation 10/08/17 ID and podiatry following. Wound culture positive for Staph and Strep not A, B, D Discussed with infectious disease. Patient is currently on ceftriaxone, Levaquin, Zyvox. Probable further debridement on 10/15/2017 by podiatry Right knee effusion - Knee is warm to touch compared to left knee - Concerning for gout vs. septic arthritis. - He is already on Levaquin, Ceftriaxone as well as Zyvox. -Orthopedic surgery consulted. Joint aspiration today. Peripheral vascular disease - vascular surgery is following. Patient underwent CTA with runoff. Per vascular surgery, no intervention at this point. Postoperatively anemia Transfused 2 units packed red cell. Hgb 11.0 on 10/11/2017. Diabetes type 2 Will continue Levemir to 15 units nightly Continue pre-meal insulin aspart 5 units 3 times a day before meals. Goal glucose in hospital: 140 - 180. Acute kidney injury chronic kidney disease stage III Creatinine improved from around 1.94 on admission --> 0.92 on 10/14/2017. Continue NS 84 mL/hour avoid all nephrotoxic drugs Hypokalemia - Continue PO KCL Full code. DVT prophylaxis- heparin Problem Qualifiers (1) Sepsis: Qualified Codes: A41.9 - Sepsis, unspecified organism (2) Diabetic foot ulcer: Qualified Codes: E10.621 - Type 1 diabetes mellitus with foot ulcer; L97.419 - Non-pressure chronic ulcer of right heel and midfoot with unspecified severity Christian Joe DO Oct 16, 2017 14:53
[2017-10-16] MEDS ORDERED: MORPHINE SULFATE 8 MG/ML INJ IV PUSH ONE (15:00)
--- NOTE | 2017-10-16 15:02 | MP ---
cc: Raquel Hobbs DPM DATE OF OPERATION: 10/15/2017 SURGEON: Raquel Hobbs DPM PREOPERATIVE DIAGNOSIS: Right foot and ankle infection. POSTOPERATIVE DIAGNOSIS: 1. Right foot and ankle infection. 2. Left foot plantar 5th metatarsal head ulceration. PROCEDURE PERFORMED: 1. Incision and drainage of right foot and ankle, with wound VAC placement. 2. Left foot 5th metatarsal plantar ulcer debridement and irrigation. ANESTHESIA: General with local infiltrate of 0.5 % Marcaine plain, 10 milliliters total infiltrated about bilateral feet. HEMOSTASIS: None. ESTIMATED BLOOD LOSS Ten milliliters. MATERIAL: 2-0, 3-0 Prolene. INJECTABLES: None. COMPLICATIONS: None. INDICATIONS FOR PROCEDURE: The patient is a 57-year-old male who is being brought back to the OR for repeat incision and drainage to right foot and ankle. He was previously taken to the OR by Dr. Mitchel Aguayo, who performed original right foot incision and drainage. The patient continues to spike fevers and had a fever of 101.8 last night. Will need repeat debridement to evacuate infection. The patient understands all alternatives, risks, benefits and complications associated with the procedure. He agrees with the planned surgical intervention. DESCRIPTION OF PROCEDURE: The patient was brought back to the operating room, placed on the operating room table in a supine position. Ten milliliters of 0.5% Marcaine plain were infiltrated about bilateral lower extremity and then prepped and draped in the usual sterile fashion. Attention was directed to the left foot, where an ulcer was noted, which measured about 3 x 4 cm to plantar 5th metatarsal head, with hyperkeratotic edges. This also was debrided with a 15 blade. All necrotic and tissue were removed. Only viable tissue was left. Wet to dry was placed to the site, Esua and ENRIQUE. Attention was then directed to the right lower extremity, where a lateral ankle and foot incision was noted, extending from 4th metatarsal head to posterolateral malleolus. It was noted that 5th digit had been previously amputated. There was an incision to plantar aspect of foot, as well as 2 incisions to the medial dorsal ankle. Sutures were removed. Incision was deepened through the subcutaneous tissue and copious irrigation was performed. Additional purulent drainage was evacuated from anterior ankle. There was noted to be bone exposed to lateral foot. Following copious irrigation, all nonviable tissue was debrided with rongeur and Versajet. Copious irrigation was performed and 2-0, 3-0 Prolene was utilized to reapproximate skin edges to all 4 incision sites. Wound VAC was placed to all 4 incision sites. White foam was placed over bone. There was noted to be adequate suction at 125 millimeters of mercury. Cast padding and ENRIQUE were then applied. The patient tolerated the procedure well. He was transferred from PACU with vital signs stable and neurovascular status intact. IVONNE Garcia , 10:30 PM , 11:02 PM
[2017-10-16] MEDS ORDERED: DIATRIZOATE MEGLUM/DIATRIZOATE SOD 9 ML CUP PO ONE (15:45)
[2017-10-16 16:00] VITALS: BP 153/91; PULSE 104; RESP 20; TEMP 99.5; O2SAT 93
--- NOTE | 2017-10-16 16:13 | PD.RAD ---
Post Procedure Progress Note Pre Procedure Diagnosis: (1) Sepsis Post Procedure Diagnosis: (1) Sepsis Procedure Date: Oct 16, 2017 Supervising Radiologist: Chetan Escobedo Proceduralist/Assist: Jhon Brown, RT(R), RT Nestor(R) Anesthesia: Local Plan of Activity Patient to Unit: Nursing Unit Patient Condition: Good See PACS Report for procedural detail/treatment Drainage Procedure Procedure 1 Imaging Guidance: Fluoroscopy Side: Right Procedure Type: Aspiration (right knee) Fluid Removal (CCs): 20 Fluid Description: Cloudy, Yellow Chetan Escobedo MD Oct 16, 2017 16:13
[2017-10-16 18:21] LABS: WBC, SYNOVIAL FLUID 3730 /MM3 (0-200)
[2017-10-16 20:00] VITALS: BP 156/88; PULSE 99; RESP 19; TEMP 99.7; O2SAT 95
[2017-10-16] MEDS ORDERED: IOHEXOL 350 MG/ML 10 ML VIAL (for RAD DIAG) IVCONTRAST ONE (20:22)
[2017-10-16] MEDS: INSULIN DETEMIR 100 UNITS/ML VIAL SQ SCH (21:00)
[2017-10-16 21:18] LABS: AUTOMATED NEUTROPHIL # 6.7 TH/MM3 (1.8-7.7); BASOPHIL # 0.1 TH/MM3 (0-0.2); BASOPHIL % 0.8 % (0.0-2.0); EOSINOPHIL # 0.1 TH/MM3 (0-0.4); HEMOGLOBIN 8.6 GM/DL (13.0-17.0); LYMPHOCYTE # 1.1 TH/MM3 (1.0-4.8); MEAN CELL VOLUME 82.7 FL (80.0-100.0); MEAN CORPUSCULAR HEMOGLOBIN 28.4 PG (27.0-34.0); MEAN CORPUSCULAR HGB CONC 34.4 % (32.0-36.0); MEAN PLATELET VOLUME 7.6 FL (7.0-11.0); MONO % 9.5 % (0.0-8.0); MONOCYTE # 0.8 TH/MM3 (0-0.9); NEUT % 75.7 % (16.0-70.0); PLATELET COUNT 393 TH/MM3 (150-450); RED BLOOD COUNT 3.03 MIL/MM3 (4.50-5.90); RED CELL DISTRIBUTION WIDTH 14.8 % (11.6-17.2); WHITE BLOOD COUNT 8.8 TH/MM3 (4.0-11.0)
[2017-10-16] MEDS: LACTATED RINGER'S 1000 ML INJ 1,000 ML IV SCH (21:26)
--- NOTE | 2017-10-16 22:24 | RADRPT ---
EXAM DATE/TIME: 10/16/2017 20:14 [facility] COMPARISON: No previous studies available for comparison. INDICATIONS : Abdomen pain, abscesses. IV CONTRAST: 90 cc Omnipaque 350 (iohexol) IV ORAL CONTRAST: Prescribed oral contrast ingested. RADIATION DOSE: 20.13 CTDIvol (mGy) MEDICAL HISTORY : Renal calculi. Diabetes mellitus type 2. SURGICAL HISTORY : None. ENCOUNTER: Initial ACUITY: 1 day PAIN SCALE: 7/10 LOCATION: Bilateral lower quadrant TECHNIQUE: Volumetric scanning of the abdomen and pelvis was performed. Using automated exposure control and ad justment of the mA and/or kV according to patient size, radiation dose was kept as low as reasonably achievable to obtain optimal diagnostic quality images. DICOM format image data is available electro nically for review and comparison. FINDINGS: LOWER LUNGS: Moderate bilateral pleural effusions with adjacent compressive atelectasis and/or pneumonia are noted . LIVER: Mild hepatomegaly is noted. Homogeneous density without lesion. There is no dilation of the biliary tree. No calcified gallstones. SPLEEN: Mild splenomegaly is noted. PANCREAS: Within normal limits. KIDNEYS: Normal in size and shape. There is no mass or hydronephrosis. Tiny calcified nonobstructing bilatera l renal calculi are noted. Streakiness and fluid density is noted within the retroperitoneum inferior to the kidneys. ADRENAL GLANDS: Within normal limits. VASCULAR: There is no aortic aneurysm. BOWEL/MESENTERY: Uncomplicated colonic diverticulosis is noted. No acute diverticulitis is noted. Appendix is normal. ABDOMINAL WALL: Within normal limits. RETROPERITONEUM: There is no lymphadenopathy. BLADDER: No wall thickening or mass. REPRODUCTIVE: Within normal limits. Minimal free fluid is noted within the pelvis. Presacral streakiness is also no jazzy. INGUINAL: There is no lymphadenopathy or hernia. MUSCULOSKELETAL: Degenerative changes and scoliosis of the lumbar spine are noted. CONCLUSION: 1. Moderate-sized bilateral pleural effusions with adjacent consolidations consistent with atelectasi s and/or pneumonia. 2. Tiny calcified nonobstructing bilateral renal calculi. 3. Mild hepatosplenomegaly. 4. Uncomplicated colonic diverticulosis. 5. Minimal free fluid within the pelvis. 6. Streakiness and fluid within the bilateral retroperitoneum inferior to the kidneys and extending i nto the presacral region. 7. Degenerative changes and scoliosis of the thoracolumbar spine. Hector Pierre MD on October 16, 2017 at 22:17 Board Certified Radiologist. This report was verified electronically.
--- NOTE | 2017-10-16 22:39 | HHI.PR ---
Subjective Remarks Patient seen bedside postop day 1. States he had a rough day as his knee was drained and it was very painful. Patient is very anxious secondary to procedure performed today. Denies any calf pain to bilateral lower extremity. Denies nausea vomiting fevers or chills. Objective Vital Signs Date Time Temp Pulse Resp B/P (MAP) Pulse Ox O2 Delivery O2 Flow Rate FiO2 10/16/17 20:00 99.7 99 19 156/88 (110) 95 10/16/17 16:00 99.5 104 20 153/91 (111) 93 10/16/17 16:00 Room Air 10/16/17 12:00 97.8 98 20 156/94 (114) 92 10/16/17 12:00 Room Air 10/16/17 08:00 100.0 108 20 152/89 (110) 89 10/16/17 08:00 Room Air 10/16/17 04:00 98.0 109 20 136/89 (105) 92 10/15/17 23:15 96.4 109 20 174/86 (115) 91 I/O 10/15/17 10/15/17 10/15/17 10/16/17 10/16/17 10/16/17 06:59 14:59 22:59 06:59 14:59 22:59 Intake Total 592 ml 2560 ml 480 ml 120 ml Output Total 600 ml 600 ml 210 ml 600 ml 400 ml Balance -600 ml -8 ml 2350 ml -120 ml -280 ml Intake Oral 240 ml 480 ml 120 ml IV Total 352 ml 2560 ml Output Urine Total 600 ml 600 ml 200 ml 600 ml 400 ml Estimated Blood Loss 10 ml # Voids 1 2 # Bowel Movements 1 0 1 Result Diagram: 10/16/17203910/14/17 0913 Imaging Last Impressions Abdomen/Pelvis CT 10/16/17 0000 Signed Impressions: Service Date/Time: October 20:14 - CONCLUSION: 1. Moderate-sized bilateral pleural effusions with adjacent consolidations consistent with atelectasis and/or pneumonia. 2. Tiny calcified nonobstructing bilateral renal calculi. 3. Mild hepatosplenomegaly. 4. Uncomplicated colonic diverticulosis. 5. Minimal free fluid within the pelvis. 6. Streakiness and fluid within the bilateral retroperitoneum inferior to the kidneys and extending into the presacral region. 7. Degenerative changes and scoliosis of the thoracolumbar spine. Hector Pierre MD Knee X-Ray 10/15/17 0000 Signed Impressions: Service Date/Time: Sunday, October 15, 2017 15:26 - CONCLUSION: Large joint effusion otherwise negative. Tu Lim MD FACR Chest X-Ray 10/13/17 0000 Signed Impressions: Service Date/Time: Friday, October 13, 2017 12:59 - CONCLUSION: Inflammatory changes right lower lobe with mild to moderate failure. Tu Lim MD FACR Carotid Artery Ultrasound 10/13/17 0000 Signed Impressions: Service Date/Time: Friday, October 13, 2017 16:12 - CONCLUSION: No evidence of flow-limiting carotid stenosis. Wm Riley MD Aorta w/Runoff CTA 10/13/17 0000 Signed Impressions: Service Date/Time: Friday, October 13, 2017 22:41 - CONCLUSION: 1. No aortic occlusive disease. 2. No significant iliac inflow stenosis. 3. No significant outflow stenosis. 4. Diffuse bilateral runoff disease with heavily calcified tibial arteries and significant venous contamination precluding patency evaluation beyond the very proximal calf. 5. Small to moderate bilateral pleural effusions with associated airspace disease at the lung bases, presumably atelectasis. 6. Trace free fluid in the deep pelvis. 7. Ancillary findings include hepatic steatosis, nonobstructing punctate calyceal calculus in the inferior pole of the left kidney and small suprapatellar right joint effusion. Lupillo Webster MD Foot MRI 10/12/17 0000 Signed Impressions: Service Date/Time: Thursday, October 12, 2017 08:31 - CONCLUSION: 1. No areas of suspected osteomyelitis. 2. Superficial soft tissue swelling over the third and fourth metatarsals. There is also some edema within the plantar musculature. Wm Dupree MD Ankle MRI 10/11/17 0000 Signed Impressions: Service Date/Time: Wednesday, October 11, 2017 09:41 - CONCLUSION: 1. No definite areas of osteomyelitis. There is some edema within the lateral cuboid adjacent to the suspected surgical defect which is likely reactive. T1 signal is maintained. 2. Multiple areas of focal edema within the midfoot mainly related to the subarticular regions likely related to underlying arthritic change. 3. The patient appears to be status post resection of the fifth metatarsal with post surgical change at the lateral hind and midfoot and a small focus of air seen adjacent to the calcaneus. Wm Dupree MD Foot X-Ray 10/07/17 0000 Signed Impressions: Service Date/Time: Saturday, October 07, 2017 13:15 - CONCLUSION: 1. Prominent soft tissue swelling overlying the fifth proximal metatarsal at the MTP joint. No definitive erosive bony change to suggest osteomyelitis. Lupillo Webster MD Procedures s/p right foot incision and drainage; repeat incision and drainage performed Objective Remarks Wound VAC noted to right lower extremity functioning at 125 mm per mercury. Capillary refill time to digits 4 right foot within normal limits and under 3 seconds. Dressing intact to left lower extremity with no strikethrough noted. Capillary refill time to digits 5 left foot within normal limits and under 3 seconds. Ankle range of motion to right ankle within normal limits, no pain on range of motion. Medications and IVs Current Medications Medications (Trade) Dose Ordered Sig/Anna Route Start Time Stop Time Status Last Admin (NS Flush) 2 ml UNSCH PRN IV FLUSH 10/07/17 16:45 10/15/17 03:41 (NS Flush) 2 ml BID IV FLUSH 10/07/17 21:00 10/16/17 21:27 (Narcan Inj) 0.4 mg UNSCH PRN IV PUSH 10/07/17 16:45 (Heparin Inj) 5,000 units Q8HR SQ 10/08/17 06:00 10/16/17 14:36 (D50w (Vial) Inj) 50 ml UNSCH PRN IV PUSH 10/08/17 10:30 (Glucagon Inj) 1 mg UNSCH PRN OTHER 10/08/17 10:30 (NovoLOG SUPPLEMENTAL SCALE) 1 ACHS SLIDING SCALE SQ 10/08/17 12:00 10/16/17 08:54 (Lactinex) 1 tab Q12HR PO 10/08/17 21:00 10/16/17 21:26 (NovoLOG INJ) 5 units TIDAC SQ 10/12/17 08:00 10/16/17 17:50 (Levemir Inj) 15 units HS SQ 10/12/17 21:00 10/14/17 21:58 (Eugene 7.5-325 Mg) 1 tab Q6H PRN PO 10/13/17 12:45 10/16/17 19:34 (Morphine Inj) 5 mg Q4H PRN IV PUSH 10/13/17 12:45 10/16/17 21:28 (Morphine Inj) 4 mg Q3H PRN IV PUSH 10/13/17 12:45 10/15/17 15:55 (Restoril) 15 mg HS PRN PO 10/13/17 12:45 (Tylenol) 500 mg Q4H PRN PO 10/13/17 13:15 10/13/17 13:15 Ceftriaxone Sodium 2000 mg/ Sodium Chloride 100 ml @ 200 mls/hr Q24H IV 10/13/17 14:00 10/16/17 14:35 (Levaquin) 500 mg DAILY PO 10/14/17 17:00 10/16/17 08:55 Linezolid 300 ml @ 300 mls/hr Q12H IV 10/14/17 17:00 10/16/17 17:18 (KCl) 20 meq Q12HR PO 10/14/17 21:00 10/17/17 20:59 10/16/17 21:26 (Chlorhexidine 2% Cloth) 3 pack [employer]OL [employer] PRN TOPICAL 10/15/17 04:45 10/18/17 04:44 Lactated Ringer's 1,000 ml @ 50 mls/hr Q20H IV 10/16/17 19:15 10/16/17 21:26 Assessment and Plan Assessment and Plan 57-year-old male status post repeat incision and drainage of right foot and ankle and s/p debridement and irrigation of left foot submet 5 ulcer DOS: Patient examined evaluated with all questions answered Wound VAC to be changed bedside tomorrow; will evaluate if patient will need an additional debridement and irrigation Will evaluate for possible DC Patient will need home health care for wound VAC as well as IV antibiotics Secondary to extent of infection and exposed bone laterally would recommend long -term IV antibiotics. Vascular note appreciated Will discuss with infectious disease after wound VAC takedown Raquel Hobbs DPM Oct 16, 2017 22:39
--- NOTE | 2017-10-16 22:58 | RADRPT ---
EXAM DATE/TIME: 10/16/2017 20:14 [facility] COMPARISON: No previous studies available for comparison. INDICATIONS : Short of breath, possible pneumonia. IV CONTRAST: 90 cc Omnipaque 350 (iohexol) IV RADIATION DOSE: 20.13 CTDIvol (mGy) ; Combined studies - Thorax/Abdomen/Pelvis MEDICAL HISTORY : Diabetes mellitus type 2. Renal calculi. SURGICAL HISTORY : ENCOUNTER: Initial ACUITY: 1 day PAIN SCALE: 5/10 LOCATION: Bilateral chest TECHNIQUE: Volumetric scanning of the chest was performed. Using automated exposure control and adjustment of t he mA and/or kV according to patient size, radiation dose was kept as low as reasonably achievable to obtain optimal diagnostic quality images. DICOM format image data is available electronically for review and comparison. Follow-up recommendations for detected pulmonary nodules are based at a minimum on nodule size and pa tient risk factors according to Fleischner Society Guidelines. FINDINGS: LUNGS: Bibasilar compressive atelectasis and/or pneumonia is noted. Scattered increased initial infiltrates are noted within the perihilar regions and upper lobes bilaterally raising the possibility of pulmona ry vascular congestion. There is no pneumothorax. No concerning pulmonary nodule is visualized. PLEURA: Moderate-sized bilateral pleural effusions are noted. MEDIASTINUM: Mild pretracheal and AP window mediastinal lymphadenopathy is nonspecific. The largest lymph node noemi sures 17 mm. Cardiomegaly and coronary artery calcifications are noted. AXILLAE: Within normal limits. No lymphadenopathy. SKELETAL: Degenerative changes and scoliosis of the thoracic spine. MISCELLANEOUS: The visualized upper abdominal organs demonstrate no acute abnormality. CONCLUSION: Moderate-sized bilateral pleural effusions with adjacent compressive atelectasis and/ or pneumonia. Scattered increased interstitial infiltrates within the perihilar regions and upper lob es bilaterally raising the possibility of pulmonary vascular congestion. Cardiomegaly and coronary ar fausto calcifications are noted. Mild pretracheal and AP window mediastinal lymphadenopathy which is no nspecific. Degenerative changes and mild scoliosis of the thoracic spine. Hector Pierre MD on October 16, 2017 at 22:52 Board Certified Radiologist. This report was verified electronically.
[2017-10-17] VITALS: BP 180/97; PULSE 104; RESP 20; TEMP 99.4; O2SAT 93
[2017-10-17] MEDS: ACETAMINOPHEN/HYDROcodone 325 MG/7.5 MG TAB PO PRN ×4 (02:09→22:30)
[2017-10-17 04:00] VITALS: BP 155/91; PULSE 101; RESP 20; TEMP 100.3; O2SAT 92
[2017-10-17] MEDS: LINEZOLID 600 MG PREMIX 300 ML IV SCH ×2 (05:29→16:59)
[2017-10-17] MEDS: MORPHINE SULFATE 8 MG/ML INJ IV PUSH PRN ×3 (05:31→19:05)
[2017-10-17] MEDS: HEPARIN SODIUM - SQ 10,000 UNITS/ML VIAL SQ SCH ×3 (06:00→21:35)
[2017-10-17 08:00] VITALS: BP 144/81; PULSE 101; RESP 20; TEMP 99.3; O2SAT 93
[2017-10-17] MEDS: POTASSIUM CHLORIDE 20 MEQ CONTROLLED RELEASE TAB PO SCH (08:40)
[2017-10-17] MEDS: LACTOBACILLUS ACIDOPHILUS TAB PO SCH ×2 (08:40→21:31)
[2017-10-17] MEDS: INSULIN ASPART 1,000 UNITS/10 ML VIAL SQ SCH ×3 (08:41→17:00)
[2017-10-17] MEDS: INSULIN ASPART SUPPLEMENTAL SCALE SQ SCH ×4 (08:42→21:00)
[2017-10-17] MEDS: LEVOFLOXACIN 500 MG TAB PO SCH (08:43)
[2017-10-17] MEDS: SODIUM CHLORIDE 0.9% FLUSH 10 ML FLUSH IV FLUSH SCH ×2 (08:44→21:00)
--- NOTE | 2017-10-17 09:07 | HHI.PR ---
Subjective Remarks Follow up for bacteremia, diabetic foot infection, right knee effusion. Patient is currently doing well. However, he is not excited about possible surgery of his right knee. He had a low grade temp. No other acute concerns. Objective Vitals Vital Signs Date Time Temp Pulse Resp B/P (MAP) Pulse Ox O2 Delivery O2 Flow Rate FiO2 10/17/17 04:00 100.3 101 20 155/91 (112) 92 10/17/17 00:00 99.4 104 20 180/97 (124) 93 10/16/17 20:00 99.7 99 19 156/88 (110) 95 10/16/17 19:00 Nasal Cannula 2.00 10/16/17 16:00 99.5 104 20 153/91 (111) 93 10/16/17 16:00 Room Air 10/16/17 12:00 97.8 98 20 156/94 (114) 92 10/16/17 12:00 Room Air I/O 10/16/17 10/16/17 10/16/17 10/17/17 10/17/17 10/17/17 07:00 15:00 23:00 07:00 15:00 23:00 Intake Total 480 ml 120 ml 800 ml Output Total 600 ml 400 ml 800 ml Balance -120 ml -280 ml 0 ml Intake Oral 480 ml 120 ml 500 ml IV Total 300 ml Output Urine Total 600 ml 400 ml 800 ml # Voids 2 # Bowel Movements 0 1 2 Result Diagram: 10/16/17203910/14/17 0913 Objective Remarks GENERAL: Alert, NAD. SKIN: Warm and dry. HEAD: Normocephalic. EYES: No scleral icterus. No injection or drainage. NECK: Supple, trachea midline. No JVD or lymphadenopathy. CARDIOVASCULAR: Regular rate and rhythm without murmurs, gallops, or rubs. RESPIRATORY: Breath sounds equal bilaterally. No accessory muscle use. GASTROINTESTINAL: Abdomen soft, non-tender, nondistended. MUSCULOSKELETAL: No cyanosis, or edema. Right foot wrapped in dressing. Left foot, lateral side has an old wound. Right knee is swollen and warm to touch compared to left knee. BACK: Nontender without obvious deformity. No CVA tenderness. Procedures s/p Right foot and ankle incision drainage, 5th metatarsal resection, 5th digit amputation 10/08/17 A/P Problem List: (1) Osteomyelitis of foot ICD Code: M86.9 - Osteomyelitis, unspecified (2) Leukocytosis ICD Code: D72.829 - Elevated white blood cell count, unspecified (3) Dehydration with hyponatremia ICD Code: E87.1 - Hypo-osmolality and hyponatremia (4) Acute kidney injury ICD Code: N17.9 - Acute kidney failure, unspecified (5) Sepsis ICD Code: A41.9 - Sepsis, unspecified organism Status: Acute (6) Diabetic foot ulcer ICD Code: E11.621 - Type 2 diabetes mellitus with foot ulcer; L97.509 - Non- pressure chronic ulcer of other part of unspecified foot with unspecified severity Status: Acute (7) Acute renal failure superimposed on stage 3 chronic kidney disease ICD Code: N17.9 - Acute kidney failure, unspecified; N18.3 - Chronic kidney disease, stage 3 (moderate) (8) Bacteremia due to Gram-positive bacteria ICD Code: R78.81 - Bacteremia (9) Postoperative anemia ICD Code: D64.9 - Anemia, unspecified Assessment and Plan 57 year-old man with Sepsis - Secondary to diabetic foot infection Right foot osteomyelitis Diabetic foot infection Bacteremia with gram-positive cocci Possible hospital-acquired pneumonia s/p Right foot and ankle incision drainage, 5th metatarsal resection, 5th digit amputation 10/08/17 ID and podiatry following. Wound culture positive for Staph and Strep not A, B, D Discussed with infectious disease. Patient is currently on ceftriaxone, Levaquin, Zyvox. Probable further debridement on 10/15/2017 by podiatry Right knee effusion - Knee is warm to touch compared to left knee - Concerning for gout vs. septic arthritis. - He is already on Levaquin, Ceftriaxone as well as Zyvox. -Orthopedic surgery consulted. Patient is currently n.p.o. -Patient is not excited about undergoing any surgical intervention. However I encouraged with him to discuss with orthopedic surgery first. Peripheral vascular disease - vascular surgery is following. Patient underwent CTA with runoff. Per vascular surgery, no intervention at this point. Postoperatively anemia Transfused 2 units packed red cell. Hgb 11.0 on 10/11/2017. Diabetes type 2 continue Levemir to 15 units nightly Continue pre-meal insulin aspart 5 units 3 times a day before meals. Goal glucose in hospital: 140 - 180. Acute kidney injury chronic kidney disease stage III Creatinine improved from around 1.94 on admission --> 0.92 on 10/14/2017. Continue NS 84 mL/hour avoid all nephrotoxic drugs Hypokalemia - Continue PO KCL Full code. DVT prophylaxis- heparin Problem Qualifiers (1) Sepsis: Qualified Codes: A41.9 - Sepsis, unspecified organism (2) Diabetic foot ulcer: Qualified Codes: E10.621 - Type 1 diabetes mellitus with foot ulcer; L97.419 - Non-pressure chronic ulcer of right heel and midfoot with unspecified severity Christian Joe DO Oct 17, 2017 09:07
[2017-10-17 12:00] VITALS: BP 154/81; PULSE 93; RESP 20; TEMP 98.4; O2SAT 92
[2017-10-17] MEDS: cefTRIAXone INJ 2,000 MG in SODIUM CHLORIDE 0.9% INJ 100 ML IV SCH (13:15)
[2017-10-17] MEDS: LACTATED RINGER'S 1000 ML INJ 1,000 ML IV SCH (13:16)
--- NOTE | 2017-10-17 15:17 | HHI.IDPN ---
Subjective Subjective Remarks Mr. Braxton is a 57-year-old male with past medical history significant for diabetes type 2, prior diabetic foot ulcer treated in October 2016 thereafter was hospitalized from May 08, 2017 to May 29, 2017 due to foot ulcer. During that hospitalization patient underwent surgical debridement with wound VAC placement. Patient reports that he was seen by Dr. Pritchard during that admission. Patient reports that he was discharged on IV ceftriaxone using a PICC line. Patient had home health care visits him and continue to receive wound VAC changes at home. He also was subsequently seen at wound care clinic for ongoing wound care as well as [facility] for his primary care needs. Patient reports that his medications were recently adjusted and a new insulin was introduced. Patient reports that he was diagnosed with a possible staph or strep infection and has been on oral Bactrim approximately 2 weeks prior to admission. Due to worsening foot infection as well as possible reaction to the new insulin patient presented to the emergency department [facility]. Patient reports that he was having fevers, chills, loss of appetite and diarrhea for the past 2 days associated with frequent urination. Patient denies any dysuria. He reports dizziness and reported history of falls 3 days ago while on the toilet. Patient's reports that she was unaware of this history of fall. He denies any head injury. Patient reports hitting his right foot and shoulder but that he was able to get off the floor by himself. Patient had a sepsis workup initiated on admission. Wound cultures are positive for strep as well as blood cultures are now positive for gram-positive likely strep. Repeat blood cultures have been ordered. Podiatry is seeing the patient and there is a plan for surgical intervention and possible amputation of the involved digit. Infectious disease is consulted for evaluation and management of right fifth toe osteomyelitis with associated cellulitis, gram-positive bacteremia and sepsis. S/p amputation foot and blood clx + MSSA and strep + osteo extending to margins Overnight events reviewed. Still has low grade fevers. No rash No diarrhea ECHO no veg's. Right knee s.p aspiration: studies so far indicative of septic arthritis. Await glucose and total protein in fluid. CX ng but patient was on abx. CT chest with Bilateral Pleural effusions and pneumonia. Antibiotics Ceftriaxone IV Zyvox IV Levaquin Lines Line sites with no e.o infection Past Medical History Past Medical History DM II Right foot ulcer with possible osteomyelitis in the past. Has received IV antibiotics long-term using a PICC line in the past. Renal stones Past Surgical History Right foot debridement of wound removal of kidney stones Tonsillitis Allergies: Coded Allergies: No Known Allergies (Unverified Adverse Reaction, Unknown, 09/15/17) Uncoded Allergies: chadian dressing (Allergy, Severe, Anaphylaxis, 10/07/17) Objective . Vital Signs Date Time Temp Pulse Resp B/P (MAP) Pulse Ox O2 Delivery O2 Flow Rate FiO2 10/17/17 08:00 99.3 101 20 144/81 (102) 93 10/17/17 04:00 100.3 101 20 155/91 (112) 92 10/17/17 00:00 99.4 104 20 180/97 (124) 93 10/16/17 20:00 99.7 99 19 156/88 (110) 95 10/16/17 19:00 Nasal Cannula 2.00 10/16/17 16:00 99.5 104 20 153/91 (111) 93 10/16/17 16:00 Room Air 10/17/17 10/17/17 10/18/17 15:00 23:00 07:00 Intake Total 100 ml Balance 100 ml IV Total 100 ml . Laboratory Tests Test 10/16/17 20:40 White Blood Count 8.8 TH/MM3 Red Blood Count 3.03 MIL/MM3 Hemoglobin 8.6 GM/DL Hematocrit 25.0 % Mean Corpuscular Volume 82.7 FL Mean Corpuscular Hemoglobin 28.4 PG Mean Corpuscular Hemoglobin Concent 34.4 % Red Cell Distribution Width 14.8 % Platelet Count 393 TH/MM3 Mean Platelet Volume 7.6 FL Neutrophils (%) (Auto) 75.7 % Lymphocytes (%) (Auto) 13.0 % Monocytes (%) (Auto) 9.5 % Eosinophils (%) (Auto) 1.0 % Basophils (%) (Auto) 0.8 % Neutrophils # (Auto) 6.7 TH/MM3 Lymphocytes # (Auto) 1.1 TH/MM3 Monocytes # (Auto) 0.8 TH/MM3 Eosinophils # (Auto) 0.1 TH/MM3 Basophils # (Auto) 0.1 TH/MM3 CBC Comment DIFF FINAL Differential Comment Microbiology Date/Time Source Procedure Growth Status 10/14/17 17:17 Blood Peripheral Aerobic Blood Culture - Preliminary NO GROWTH IN 3 DAYS Resulted 10/14/17 17:17 Blood Peripheral Anaerobic Blood Culture - Preliminary NO GROWTH IN 3 DAYS Resulted 10/14/17 17:12 Blood Peripheral Aerobic Blood Culture - Preliminary NO GROWTH IN 3 DAYS Resulted 10/14/17 17:12 Blood Peripheral Anaerobic Blood Culture - Preliminary NO GROWTH IN 3 DAYS Resulted 10/16/17 16:07 Fluid Synovial Fluid Gram Stain - Final Resulted 10/16/17 16:07 Fluid Synovial Fluid Body Fluid Culture - Preliminary NO GROWTH IN 24 HOURS. Resulted Imaging Last Impressions Foot MRI 10/08/17 0000 Signed Impressions: Service Date/Time: Sunday, October 08, 2017 09:17 - CONCLUSION: 1. Evidence of cellulitis with 1 cm abscess with peripheral enhancement in the dorsal soft tissues adjacent to the distal 5th digit metatarsus. 2. There is signal abnormality (T1 and T2 prolongation) in the distal metaphysis and epiphysis of the 5th metatarsal bone without definite enhancement in the marrow. This is located adjacent to the soft tissue abscess. Some signal abnormality (T2 prolongation) seen in the same region of the metatarsal bone prior MRI in April 2017, making the significance of the finding uncertain. Differential considerations include both chronic and acute osteomyelitis. Elías Keane MD ADDENDUM: The abscess adjacent to the distal 5th metatarsus does extend proximally anterior and lateral to the 5th metatarsus and there is a 2nd fluid collection which measures 1.7 x 0.6 cm, located anterior and lateral to the base of the 5th metatarsus. This has similar signal characteristics and enhancement pattern as the distal fluid component. In addition, there is a thin amount of fluid tracking in a non-distending the peritoneal tendon sheath, this is only seen on the sagittal images. Elías Keane MD Foot X-Ray 10/07/17 0000 Signed Impressions: Service Date/Time: Saturday, October 07, 2017 13:15 - CONCLUSION: 1. Prominent soft tissue swelling overlying the fifth proximal metatarsal at the MTP joint. No definitive erosive bony change to suggest osteomyelitis. Lupillo Webster MD Physical Exam GENERAL: This is a well-nourished, well-developed patient, in no apparent distress. SKIN: No rashes, ecchymoses or lesions. Cool and dry. HEAD: Atraumatic. Normocephalic. No temporal or scalp tenderness. EYES: Pupils equal round and reactive. Extraocular motions intact. No scleral icterus. No injection or drainage. ENT: Nose without bleeding, purulent drainage or septal hematoma. Throat without erythema, tonsillar hypertrophy or exudate. Uvula midline. Airway patent. NECK: Trachea midline.Supple, nontender, no meningeal signs. CARDIOVASCULAR: Heart sounds audible. RESPIRATORY: basilar crackles. Breath sounds decreased bilateral bases. GASTROINTESTINAL: Abdomen soft, non-tender, nondistended. MUSCULOSKELETAL: Right foot in post op dressing with vac in place. Left foot in dressing. Right knee remarkably improved with minimal erythema. Improved ROM. NEUROLOGICAL: Awake and alert. Nonfocal exam Psych cooperative IV line sites with no evidence of infection. Assessment & Plan Remarks Sepsis present on admission Strep bacteremia secondary to right foot osteomyelitis and cellulitis Staph MSSA bacteremia high grade. Strep not AB,D and Staph infection Right foot fifth MPJ osteomyelitis Right foot cellulitis Pneumonia with bilateral pleural effusions ? HCAP vs septic emboli. Right knee septic arthritis. Diabetes type 2 uncontrolled Acute renal failure: Sepsis, prerenal: improving non diagnostic arterial study (densely calcified vessels) Recommendations: Continue Ceftriaxone (BCX were negative at 4 days and no clinical e/o failure prior to switch) Continue Levaquin for broadening GNR coverage and also atypical PNA coverage. Concern the lung infiltrates could be septic emboli. Continue Zyvox IV (MRSA PNA and MRSA new HCA infection coverage, additionally helps with toxin neutralization for Strep) CT C/A/P to look for evidence of dissemination: vital organ abscesses. Follow cultures Follow clinically. vivek Martínez: Pulm consult, thoracentesis. Vivek Lopez he will see pt today. vivek patient and RN. Chuyita Quinteros MD Oct 17, 2017 15:17
--- NOTE | 2017-10-17 15:53 | PD.ORT.PN ---
Subjective Subjective Remarks complaints of right knee pain swelling Objective Vitals Vital Signs Date Time Temp Pulse Resp B/P (MAP) Pulse Ox O2 Delivery O2 Flow Rate FiO2 10/17/17 08:00 99.3 101 20 144/81 (102) 93 10/17/17 04:00 100.3 101 20 155/91 (112) 92 10/17/17 00:00 99.4 104 20 180/97 (124) 93 10/16/17 20:00 99.7 99 19 156/88 (110) 95 10/16/17 19:00 Nasal Cannula 2.00 10/16/17 16:00 99.5 104 20 153/91 (111) 93 10/16/17 16:00 Room Air I/O 10/16/17 10/16/17 10/16/17 10/17/17 10/17/17 10/17/17 07:00 15:00 23:00 07:00 15:00 23:00 Intake Total 480 ml 120 ml 800 ml 100 ml Output Total 600 ml 400 ml 800 ml Balance -120 ml -280 ml 0 ml 100 ml Intake Oral 480 ml 120 ml 500 ml IV Total 300 ml 100 ml Output Urine Total 600 ml 400 ml 800 ml # Voids 2 # Bowel Movements 0 1 2 Result Diagram: 10/16/17203910/14/1713 Other Results right knee aspiration from interventional radiology no growth to date Assessment & Plan Assessment and Plan right knee pain and swelling possible septic arthritis./infection knee aspiration no growth to date by interventional radiology 10/16/17 history of right foot infection, debridement by podiatry wbc improved to 8k pt offered and refused I and D of knee, wanted to await culture results pt understands the aspiration may be a false negative because he was on antibiotics prior to aspiration Dr Magana air transport professionals over weekend from [place]. Brigido Cross MD Oct 17, 2017 15:52
[2017-10-17 16:00] VITALS: BP 128/75; PULSE 99; RESP 20; TEMP 99.5; O2SAT 92
[2017-10-17 20:00] VITALS: BP 144/59; PULSE 88; RESP 18; TEMP 98.5; O2SAT 93
--- NOTE | 2017-10-17 20:35 | HHI.PR ---
Subjective Remarks Patient seen bedside postop day 1. States he had a rough day as his knee was drained and it was very painful. Patient is very anxious secondary to procedure performed today. Denies any calf pain to bilateral lower extremity. Denies nausea vomiting fevers or chills. Objective Vital Signs Date Time Temp Pulse Resp B/P (MAP) Pulse Ox O2 Delivery O2 Flow Rate FiO2 10/17/17 16:00 99.5 99 20 128/75 (92) 92 10/17/17 12:00 98.4 93 20 154/81 (105) 92 10/17/17 08:00 99.3 101 20 144/81 (102) 93 10/17/17 04:00 100.3 101 20 155/91 (112) 92 10/17/17 00:00 99.4 104 20 180/97 (124) 93 I/O 10/16/17 10/16/17 10/16/17 10/17/17 10/17/17 10/17/17 07:00 15:00 23:00 07:00 15:00 23:00 Intake Total 480 ml 120 ml 800 ml 100 ml 0 ml Output Total 600 ml 400 ml 800 ml 600 ml Balance -120 ml -280 ml 0 ml 100 ml -600 ml Intake Oral 480 ml 120 ml 500 ml 0 ml IV Total 300 ml 100 ml Output Urine Total 600 ml 400 ml 800 ml 600 ml # Voids 2 # Bowel Movements 0 1 2 1 Result Diagram: 10/16/17203910/14/17 0913 Procedures s/p right foot incision and drainage; repeat incision and drainage performed Objective Remarks Wound VAC noted to right lower extremity functioning at 125 mm per mercury. Capillary refill time to digits 4 right foot within normal limits and under 3 seconds. Dressing intact to left lower extremity with no strikethrough noted. Capillary refill time to digits 5 left foot within normal limits and under 3 seconds. Ankle range of motion to right ankle within normal limits, no pain on range of motion. Assessment and Plan Assessment and Plan 57-year-old male status post repeat incision and drainage of right foot and ankle and s/p debridement and irrigation of left foot submet 5 ulcer DOS: Patient examined evaluated with all questions answered Wound VAC to be changed bedside tomorrow; will evaluate if patient will need an additional debridement and irrigation Will evaluate for possible DC Patient will need home health care for wound VAC as well as IV antibiotics Secondary to extent of infection and exposed bone laterally would recommend long -term IV antibiotics. Vascular note appreciated Will discuss with infectious disease after wound VAC takedown Raquel Hobbs DPM Oct 17, 2017 20:35
--- NOTE | 2017-10-17 20:38 | RADRPT ---
EXAM DATE/TIME: 10/17/2017 20:24 [place] COMPARISON: No previous studies available for comparison. INDICATIONS : Pleural effusion. MEDICAL HISTORY : Kidney stones. Diabetes. Hallucinations. SURGICAL HISTORY : Tonsillectomy. Kidney stone removal. Right foot incision and debridement. ENCOUNTER: Initial ACUITY: 1 day PAIN SCORE: 2/10 LOCATION: Right chest MEASUREMENTS: SKIN TO PARIETAL PLEURA: 2.2 cm SKIN TO MAX SAFE DEPTH: 4.5 cm ESTIMATED FLUID VOLUME: 745.64 cc FLUID COMPOSITION: simple FINDINGS: Pleural effusion as above. A jovanna was placed on the skin surface superficial to the pleural fluid col lection. CONCLUSION: A moderate to large right pleural effusion is confirmed sonographically and marked fo r thoracentesis. Hector Pierre MD on October 17, 2017 at 20:36 Board Certified Radiologist. This report was verified electronically.
--- NOTE | 2017-10-17 21:22 | HHI.PR ---
Subjective Remarks Patient seen bedside this evening. Denies nausea, vomiting, fevers, or chills. Denies calf pain. Resting comfortably. present bedside. Patient states he has been running fevers because he has the flu. Objective Vital Signs Date Time Temp Pulse Resp B/P (MAP) Pulse Ox O2 Delivery O2 Flow Rate FiO2 10/17/17 16:00 99.5 99 20 128/75 (92) 92 10/17/17 12:00 98.4 93 20 154/81 (105) 92 10/17/17 08:00 99.3 101 20 144/81 (102) 93 10/17/17 04:00 100.3 101 20 155/91 (112) 92 10/17/17 00:00 99.4 104 20 180/97 (124) 93 I/O 10/16/17 10/16/17 10/16/17 10/17/17 10/17/17 10/17/17 07:00 15:00 23:00 07:00 15:00 23:00 Intake Total 480 ml 120 ml 800 ml 100 ml 0 ml Output Total 600 ml 400 ml 800 ml 600 ml Balance -120 ml -280 ml 0 ml 100 ml -600 ml Intake Oral 480 ml 120 ml 500 ml 0 ml IV Total 300 ml 100 ml Output Urine Total 600 ml 400 ml 800 ml 600 ml # Voids 2 # Bowel Movements 0 1 2 1 Result Diagram: 10/16/17203910/14/1713 Imaging Last Impressions Chest CT 10/16/17 0000 Signed Impressions: Service Date/Time: October 20:14 - CONCLUSION: Moderate-sized bilateral pleural effusions with adjacent compressive atelectasis and/or pneumonia. Scattered increased interstitial infiltrates within the perihilar regions and upper lobes bilaterally raising the possibility of pulmonary vascular congestion. Cardiomegaly and coronary artery calcifications are noted. Mild pretracheal and AP window mediastinal lymphadenopathy which is nonspecific. Degenerative changes and mild scoliosis of the thoracic spine. Hector Pierre MD Abdomen/Pelvis CT 10/16/17 0000 Signed Impressions: Service Date/Time: October 20:14 - CONCLUSION: 1. Moderate-sized bilateral pleural effusions with adjacent consolidations consistent with atelectasis and/or pneumonia. 2. Tiny calcified nonobstructing bilateral renal calculi. 3. Mild hepatosplenomegaly. 4. Uncomplicated colonic diverticulosis. 5. Minimal free fluid within the pelvis. 6. Streakiness and fluid within the bilateral retroperitoneum inferior to the kidneys and extending into the presacral region. 7. Degenerative changes and scoliosis of the thoracolumbar spine. Hector Pierre MD Knee X-Ray 10/15/17 0000 Signed Impressions: Service Date/Time: Sunday, October 15, 2017 15:26 - CONCLUSION: Large joint effusion otherwise negative. Tu Lim MD FACR Chest X-Ray 10/13/17 0000 Signed Impressions: Service Date/Time: Friday, October 13, 2017 12:59 - CONCLUSION: Inflammatory changes right lower lobe with mild to moderate failure. Tu Lim MD FACR Carotid Artery Ultrasound 10/13/17 0000 Signed Impressions: Service Date/Time: Friday, October 13, 2017 16:12 - CONCLUSION: No evidence of flow-limiting carotid stenosis. Wm Riley MD Aorta w/Runoff CTA 10/13/17 0000 Signed Impressions: Service Date/Time: Friday, October 13, 2017 22:41 - CONCLUSION: 1. No aortic occlusive disease. 2. No significant iliac inflow stenosis. 3. No significant outflow stenosis. 4. Diffuse bilateral runoff disease with heavily calcified tibial arteries and significant venous contamination precluding patency evaluation beyond the very proximal calf. 5. Small to moderate bilateral pleural effusions with associated airspace disease at the lung bases, presumably atelectasis. 6. Trace free fluid in the deep pelvis. 7. Ancillary findings include hepatic steatosis, nonobstructing punctate calyceal calculus in the inferior pole of the left kidney and small suprapatellar right joint effusion. Lupillo Webster MD Foot MRI 10/12/17 0000 Signed Impressions: Service Date/Time: Thursday, October 12, 2017 08:31 - CONCLUSION: 1. No areas of suspected osteomyelitis. 2. Superficial soft tissue swelling over the third and fourth metatarsals. There is also some edema within the plantar musculature. Wm Dupree MD Ankle MRI 10/11/17 0000 Signed Impressions: Service Date/Time: Wednesday, October 11, 2017 09:41 - CONCLUSION: 1. No definite areas of osteomyelitis. There is some edema within the lateral cuboid adjacent to the suspected surgical defect which is likely reactive. T1 signal is maintained. 2. Multiple areas of focal edema within the midfoot mainly related to the subarticular regions likely related to underlying arthritic change. 3. The patient appears to be status post resection of the fifth metatarsal with post surgical change at the lateral hind and midfoot and a small focus of air seen adjacent to the calcaneus. Wm Dupree MD Foot X-Ray 10/07/17 0000 Signed Impressions: Service Date/Time: Saturday, October 07, 2017 13:15 - CONCLUSION: 1. Prominent soft tissue swelling overlying the fifth proximal metatarsal at the MTP joint. No definitive erosive bony change to suggest osteomyelitis. Lupillo Webster MD Procedures s/p right foot incision and drainage; repeat incision and drainage performed Other Results Microbiology Date/Time Source Procedure Growth Status 10/14/17 17:17 Blood Peripheral Aerobic Blood Culture - Preliminary NO GROWTH IN 3 DAYS Resulted 10/14/17 17:17 Blood Peripheral Anaerobic Blood Culture - Preliminary NO GROWTH IN 3 DAYS Resulted 10/16/17 16:07 Fluid Synovial Fluid Gram Stain - Final Resulted 10/16/17 16:07 Fluid Synovial Fluid Body Fluid Culture - Preliminary NO GROWTH IN 24 HOURS. Resulted 10/11/17 00:00 Wound Foot Gram Stain - Final Complete 10/11/17 00:00 Wound Culture - Final Staphylococcus Aureus Strep Not A,B D Complete Objective Remarks Vascular: Dorsalis pedis 1/4, posterior tibial 0/4. Capillary refill time within normal limits to digits 4 right foot, 5 left foot. Edema present right foot and ankle Neuro: Gross sensation intact to bilateral lower extremity. No hyperalgesia noted to bilateral lower extremity Dermatology: Right lateral foot incision extending from fourth metatarsal head to lateral malleolus with sutures intact, mild maceration noted on wound VAC removal to the very distal aspect of incision. No purulent drainage noted on compression. Exposed capsule noted to the lateral midfoot. Mild erythema noted to right foot and ankle. Anterior incisions 2 noted with sutures intact and skin well coapted, no purulent drainage upon compression. Left foot submetatarsal 5 also noted with granular base, no surrounding erythema, no purulent drainage upon compression, no probe to bone. Musculoskeletal: Tender to palpation globally to right foot and ankle. Medications and IVs Current Medications Medications (Trade) Dose Ordered Sig/Anna Route Start Time Stop Time Status Last Admin (NS Flush) 2 ml UNSCH PRN IV FLUSH 10/07/17 16:45 10/15/17 03:41 (NS Flush) 2 ml BID IV FLUSH 10/07/17 21:00 10/17/17 08:44 (Narcan Inj) 0.4 mg UNSCH PRN IV PUSH 10/07/17 16:45 (Heparin Inj) 5,000 units Q8HR SQ 10/08/17 06:00 10/17/17 13:16 (D50w (Vial) Inj) 50 ml UNSCH PRN IV PUSH 10/08/17 10:30 (Glucagon Inj) 1 mg UNSCH PRN OTHER 10/08/17 10:30 (NovoLOG SUPPLEMENTAL SCALE) 1 ACHS SLIDING SCALE SQ 10/08/17 12:00 10/17/17 08:42 (Lactinex) 1 tab Q12HR PO 10/08/17 21:00 10/17/17 08:40 (NovoLOG INJ) 5 units TIDAC SQ 10/12/17 08:00 10/17/17 17:00 (Levemir Inj) 15 units HS SQ 10/12/17 21:00 10/14/17 21:58 ([place] 7.5-325 Mg) 1 tab Q6H PRN PO 10/13/17 12:45 10/17/17 17:07 (Morphine Inj) 5 mg Q4H PRN IV PUSH 10/13/17 12:45 10/17/17 19:05 (Morphine Inj) 4 mg Q3H PRN IV PUSH 10/13/17 12:45 10/15/17 15:55 (Restoril) 15 mg HS PRN PO 10/13/17 12:45 (Tylenol) 500 mg Q4H PRN PO 10/13/17 13:15 10/13/17 13:15 Ceftriaxone Sodium 2000 mg/ Sodium Chloride 100 ml @ 200 mls/hr Q24H IV 10/13/17 14:00 10/17/17 13:15 (Levaquin) 500 mg DAILY PO 10/14/17 17:00 10/17/17 08:43 Linezolid 300 ml @ 300 mls/hr Q12H IV 10/14/17 17:00 10/17/17 16:59 (Chlorhexidine 2% Cloth) 3 pack QUALITY IMPROVEMENT COORDINATOR PRN TOPICAL 10/15/17 04:45 10/18/17 04:44 Lactated Ringer's 1,000 ml @ 50 mls/hr Q20H IV 10/16/17 19:15 10/17/17 13:16 Assessment and Plan Assessment and Plan 57-year-old male status post repeat incision and drainage of right foot and ankle and s/p debridement and irrigation of left foot submet 5 ulcer DOS: Patient examined evaluated with all questions answered Wound VAC removed to right lower extremity Wound VAC placed to right lower extremity by physician Continue IV antibiotics Left foot wound dressing changed, significant improvement into left foot wound Nursing dressing changes to left foot wound daily with wound gel Adaptic 4 x 4' s and [place] Will reevaluate wound for discharge per podiatry Concern for exposed bone, anticipate further granulation once wound VAC removed and right foot reevaluated Raquel Hobbs DPM Oct 17, 2017 21:22
[2017-10-17] MEDS: INSULIN DETEMIR 100 UNITS/ML VIAL SQ SCH (22:37)
[2017-10-18 00:30] VITALS: BP 145/82; PULSE 99; RESP 18; TEMP 99; O2SAT 95
[2017-10-18] MEDS: MORPHINE SULFATE 8 MG/ML INJ IV PUSH PRN ×2 (01:28→06:36)
[2017-10-18 04:00] VITALS: BP 152/79; PULSE 103; RESP 20; TEMP 100.9; O2SAT 94
[2017-10-18] MEDS: ACETAMINOPHEN/HYDROcodone 325 MG/7.5 MG TAB PO PRN ×3 (04:37→17:36)
[2017-10-18] MEDS: LINEZOLID 600 MG PREMIX 300 ML IV SCH ×2 (04:38→17:32)
[2017-10-18] MEDS: HEPARIN SODIUM - SQ 10,000 UNITS/ML VIAL SQ SCH ×3 (04:40→21:46)
[2017-10-18] MEDS: ACETAMINOPHEN 500 MG CPLT PO PRN (06:36)
[2017-10-18 08:00] VITALS: BP 135/73; PULSE 90; RESP 18; TEMP 98.7; O2SAT 95
[2017-10-18] MEDS: INSULIN ASPART SUPPLEMENTAL SCALE SQ SCH ×4 (08:00→21:47)
[2017-10-18] MEDS: INSULIN ASPART 1,000 UNITS/10 ML VIAL SQ SCH ×3 (08:00→17:00)
[2017-10-18] MEDS: LEVOFLOXACIN 500 MG TAB PO SCH (10:29)
[2017-10-18] MEDS: LACTOBACILLUS ACIDOPHILUS TAB PO SCH ×2 (10:29→21:47)
[2017-10-18] MEDS: LACTATED RINGER'S 1000 ML INJ 1,000 ML IV SCH (11:15)
[2017-10-18 12:00] VITALS: BP 140/68; PULSE 102; RESP 18; TEMP 99; O2SAT 94
[2017-10-18] MEDS: cefTRIAXone INJ 2,000 MG in SODIUM CHLORIDE 0.9% INJ 100 ML IV SCH (13:56)
[2017-10-18] MEDS: MORPHINE SULFATE 4 MG/ML INJ IV PUSH PRN ×3 (13:56→23:39)
[2017-10-18] MEDS: SODIUM CHLORIDE 0.9% FLUSH 10 ML FLUSH IV FLUSH SCH ×2 (14:01→21:47)
[2017-10-18 16:00] VITALS: BP 157/87; PULSE 100; RESP 18; TEMP 98.8; O2SAT 94
--- NOTE | 2017-10-18 16:00 | HHI.PR ---
Subjective Remarks 57 YOWm with DM,Diabetic foot ulcer,Pl eff, Lung infilt US chest Mod to large Rt Pl eff no Fever Denies SOB Objective Vital Signs Vital Signs Date Time Temp Pulse Resp B/P (MAP) Pulse Ox O2 Delivery O2 Flow Rate FiO2 10/18/17 12:00 99.0 102 18 140/68 (92) 94 10/18/17 08:00 98.7 90 18 135/73 (93) 95 10/18/17 04:00 100.9 103 20 152/79 (103) 94 10/18/17 00:30 99.0 99 18 145/82 (103) 95 10/18/17 00:00 Nasal Cannula 2.00 10/17/17 20:00 98.5 88 18 144/59 (87) 93 10/17/17 20:00 Room Air 10/17/17 16:00 99.5 99 20 128/75 (92) 92 I/O 10/17/17 10/17/17 10/17/17 10/18/17 10/18/17 10/18/17 07:00 15:00 23:00 07:00 15:00 23:00 Intake Total 800 ml 100 ml 0 ml 1207 ml Output Total 800 ml 600 ml Balance 0 ml 100 ml -600 ml 1207 ml Intake Oral 500 ml 0 ml 240 ml IV Total 300 ml 100 ml 967 ml Output Urine Total 800 ml 600 ml # Voids 2 # Bowel Movements 2 1 Result Diagram: 10/16/17203910/14/17 0913 Objective Remarks GENERAL: WBWN WM,NAD SKIN: Warm and dry. HEAD: Normocephalic. EYES: No scleral icterus. No injection or drainage. NECK: Supple, trachea midline. No JVD or lymphadenopathy. CARDIOVASCULAR: Regular rate and rhythm without murmurs, gallops, or rubs. RESPIRATORY: Breath sounds equal bilaterally. No accessory muscle use. Decreased BS at Bases GASTROINTESTINAL: Abdomen soft, non-tender, nondistended. MUSCULOSKELETAL: No cyanosis, or edema. Foot ulcer, VAC device BACK: Nontender without obvious deformity. No CVA tenderness. A/P Assessment and Plan Bilat Pl effusion Lung infilt/ septic emboli DM Foot Ulcer PLAN: I was going to do Bedside TC, pt prefers to have it done by IR in radiology dept Will Consult IR Cont Curtis Zavaleta MD Oct 18, 2017 16:00
--- NOTE | 2017-10-18 16:01 | HHI.PR ---
Subjective Remarks Follow up for bacteremia, diabetic foot infection, right knee effusion. Patient is currently doing well. He apparently does not want to do thoracentesis at bedside. He would like to have it done in the radiology suite by interventional radiology. He reports improvement of his right knee. However he complains of right knee pain. He had temperature of 100.9F. Objective Vitals Vital Signs Date Time Temp Pulse Resp B/P (MAP) Pulse Ox O2 Delivery O2 Flow Rate FiO2 10/18/17 12:00 99.0 102 18 140/68 (92) 94 10/18/17 08:00 98.7 90 18 135/73 (93) 95 10/18/17 04:00 100.9 103 20 152/79 (103) 94 10/18/17 00:30 99.0 99 18 145/82 (103) 95 10/18/17 00:00 Nasal Cannula 2.00 10/17/17 20:00 98.5 88 18 144/59 (87) 93 10/17/17 20:00 Room Air 10/17/17 16:00 99.5 99 20 128/75 (92) 92 I/O 10/17/17 10/17/17 10/17/17 10/18/17 10/18/17 10/18/17 07:00 15:00 23:00 07:00 15:00 23:00 Intake Total 800 ml 100 ml 0 ml 1207 ml Output Total 800 ml 600 ml Balance 0 ml 100 ml -600 ml 1207 ml Intake Oral 500 ml 0 ml 240 ml IV Total 300 ml 100 ml 967 ml Output Urine Total 800 ml 600 ml # Voids 2 # Bowel Movements 2 1 Result Diagram: 10/16/17203910/14/17 0913 Imaging Last Impressions Chest Ultrasound 10/17/17 0000 Signed Impressions: Service Date/Time: Tuesday, October 17, 2017 20:24 - CONCLUSION: A moderate to large right pleural effusion is confirmed sonographically and marked for thoracentesis. Hector Pierre MD Chest CT 10/16/17 0000 Signed Impressions: Service Date/Time: October 20:14 - CONCLUSION: Moderate-sized bilateral pleural effusions with adjacent compressive atelectasis and/or pneumonia. Scattered increased interstitial infiltrates within the perihilar regions and upper lobes bilaterally raising the possibility of pulmonary vascular congestion. Cardiomegaly and coronary artery calcifications are noted. Mild pretracheal and AP window mediastinal lymphadenopathy which is nonspecific. Degenerative changes and mild scoliosis of the thoracic spine. Hector Pierre MD Abdomen/Pelvis CT 10/16/17 0000 Signed Impressions: Service Date/Time: October 20:14 - CONCLUSION: 1. Moderate-sized bilateral pleural effusions with adjacent consolidations consistent with atelectasis and/or pneumonia. 2. Tiny calcified nonobstructing bilateral renal calculi. 3. Mild hepatosplenomegaly. 4. Uncomplicated colonic diverticulosis. 5. Minimal free fluid within the pelvis. 6. Streakiness and fluid within the bilateral retroperitoneum inferior to the kidneys and extending into the presacral region. 7. Degenerative changes and scoliosis of the thoracolumbar spine. Hector Pierre MD Knee X-Ray 10/15/17 0000 Signed Impressions: Service Date/Time: Sunday, October 15, 2017 15:26 - CONCLUSION: Large joint effusion otherwise negative. Tu Lim MD FACR Chest X-Ray 10/13/17 0000 Signed Impressions: Service Date/Time: Friday, October 13, 2017 12:59 - CONCLUSION: Inflammatory changes right lower lobe with mild to moderate failure. Tu Lim MD FACR Carotid Artery Ultrasound 10/13/17 0000 Signed Impressions: Service Date/Time: Friday, October 13, 2017 16:12 - CONCLUSION: No evidence of flow-limiting carotid stenosis. Wm Riley MD Aorta w/Runoff CTA 10/13/17 0000 Signed Impressions: Service Date/Time: Friday, October 13, 2017 22:41 - CONCLUSION: 1. No aortic occlusive disease. 2. No significant iliac inflow stenosis. 3. No significant outflow stenosis. 4. Diffuse bilateral runoff disease with heavily calcified tibial arteries and significant venous contamination precluding patency evaluation beyond the very proximal calf. 5. Small to moderate bilateral pleural effusions with associated airspace disease at the lung bases, presumably atelectasis. 6. Trace free fluid in the deep pelvis. 7. Ancillary findings include hepatic steatosis, nonobstructing punctate calyceal calculus in the inferior pole of the left kidney and small suprapatellar right joint effusion. Lupillo Webster MD Foot MRI 10/12/17 0000 Signed Impressions: Service Date/Time: Thursday, October 12, 2017 08:31 - CONCLUSION: 1. No areas of suspected osteomyelitis. 2. Superficial soft tissue swelling over the third and fourth metatarsals. There is also some edema within the plantar musculature. Wm Dupree MD Ankle MRI 10/11/17 0000 Signed Impressions: Service Date/Time: Wednesday, October 11, 2017 09:41 - CONCLUSION: 1. No definite areas of osteomyelitis. There is some edema within the lateral cuboid adjacent to the suspected surgical defect which is likely reactive. T1 signal is maintained. 2. Multiple areas of focal edema within the midfoot mainly related to the subarticular regions likely related to underlying arthritic change. 3. The patient appears to be status post resection of the fifth metatarsal with post surgical change at the lateral hind and midfoot and a small focus of air seen adjacent to the calcaneus. Wm Dupree MD Foot X-Ray 10/07/17 0000 Signed Impressions: Service Date/Time: Saturday, October 07, 2017 13:15 - CONCLUSION: 1. Prominent soft tissue swelling overlying the fifth proximal metatarsal at the MTP joint. No definitive erosive bony change to suggest osteomyelitis. Lupillo Webster MD Objective Remarks GENERAL: Alert, NAD. SKIN: Warm and dry. HEAD: Normocephalic. EYES: No scleral icterus. No injection or drainage. NECK: Supple, trachea midline. No JVD or lymphadenopathy. CARDIOVASCULAR: Regular rate and rhythm without murmurs, gallops, or rubs. RESPIRATORY: Breath sounds equal bilaterally. No accessory muscle use. GASTROINTESTINAL: Abdomen soft, non-tender, nondistended. MUSCULOSKELETAL: No cyanosis, or edema. Right foot wrapped in dressing. Left foot, lateral side has an old wound. Right knee is swollen and warm to touch compared to left knee. BACK: Nontender without obvious deformity. No CVA tenderness. Procedures s/p Right foot and ankle incision drainage, 5th metatarsal resection, 5th digit amputation 10/08/17 A/P Problem List: (1) Osteomyelitis of foot ICD Code: M86.9 - Osteomyelitis, unspecified (2) Leukocytosis ICD Code: D72.829 - Elevated white blood cell count, unspecified (3) Dehydration with hyponatremia ICD Code: E87.1 - Hypo-osmolality and hyponatremia (4) Acute kidney injury ICD Code: N17.9 - Acute kidney failure, unspecified (5) Sepsis ICD Code: A41.9 - Sepsis, unspecified organism Status: Acute (6) Diabetic foot ulcer ICD Code: E11.621 - Type 2 diabetes mellitus with foot ulcer; L97.509 - Non- pressure chronic ulcer of other part of unspecified foot with unspecified severity Status: Acute (7) Acute renal failure superimposed on stage 3 chronic kidney disease ICD Code: N17.9 - Acute kidney failure, unspecified; N18.3 - Chronic kidney disease, stage 3 (moderate) (8) Bacteremia due to Gram-positive bacteria ICD Code: R78.81 - Bacteremia (9) Postoperative anemia ICD Code: D64.9 - Anemia, unspecified Assessment and Plan 57 year-old man with Sepsis - Secondary to diabetic foot infection Right foot osteomyelitis Diabetic foot infection Bacteremia with gram-positive cocci Possible hospital-acquired pneumonia s/p Right foot and ankle incision drainage, 5th metatarsal resection, 5th digit amputation 10/08/17 ID and podiatry following. Wound culture positive for Staph and Strep not A, B, D Discussed with infectious disease. Patient is currently on ceftriaxone, Levaquin, Zyvox. Probable further debridement on 10/15/2017 by podiatry Right knee effusion - Knee is warm to touch compared to left knee - Concerning for gout vs. septic arthritis. - He is already on Levaquin, Ceftriaxone as well as Zyvox. -Orthopedic surgery consulted. Patient is currently n.p.o. -Patient would like to wait before orthopedic surgical I&D is done. -Bilateral pleural effusion -Pulmonary is following. Patient would like to do thoracentesis by radiology department. -Discussed with profile stitching machine operator who will request interventional radiology to do thoracentesis. Peripheral vascular disease - vascular surgery is following. Patient underwent CTA with runoff. Per vascular surgery, no intervention at this point. Postoperatively anemia Transfused 2 units packed red cell. Hgb 11.0 on 10/11/2017. Diabetes type 2 continue Levemir to 15 units nightly Continue pre-meal insulin aspart 5 units 3 times a day before meals. Goal glucose in hospital: 140 - 180. Acute kidney injury chronic kidney disease stage III Creatinine improved from around 1.94 on admission --> 0.92 on 10/14/2017. avoid all nephrotoxic drugs Hypokalemia - Replaced with p.o. potassium. Full code. DVT prophylaxis- heparin Problem Qualifiers (1) Sepsis: Qualified Codes: A41.9 - Sepsis, unspecified organism (2) Diabetic foot ulcer: Qualified Codes: E10.621 - Type 1 diabetes mellitus with foot ulcer; L97.419 - Non-pressure chronic ulcer of right heel and midfoot with unspecified severity Christian Joe DO Oct 18, 2017 16:01
[2017-10-18 17:50] LABS: INTERNATIONAL NORMALIZED RATIO 1.2 RATIO; PROTHROMBIN TIME - PATIENT 12.6 SEC (9.8-11.6)
[2017-10-18 20:00] VITALS: BP 139/72; PULSE 94; RESP 20; TEMP 98.1; O2SAT 93
--- NOTE | 2017-10-18 20:32 | PD.ORT.PN ---
Subjective Subjective Remarks feeling better. ROM better Objective Vitals Vital Signs Date Time Temp Pulse Resp B/P (MAP) Pulse Ox O2 Delivery O2 Flow Rate FiO2 10/18/17 16:00 98.8 100 18 157/87 (110) 94 10/18/17 12:00 99.0 102 18 140/68 (92) 94 10/18/17 08:00 96 Nasal Cannula 2.00 10/18/17 08:00 98.7 90 18 135/73 (93) 95 10/18/17 04:00 100.9 103 20 152/79 (103) 94 10/18/17 00:30 99.0 99 18 145/82 (103) 95 10/18/17 00:00 Nasal Cannula 2.00 I/O 10/17/17 10/17/17 10/17/17 10/18/17 10/18/17 10/18/17 07:00 15:00 23:00 07:00 15:00 23:00 Intake Total 800 ml 100 ml 0 ml 1207 ml 720 ml Output Total 800 ml 600 ml 850 ml Balance 0 ml 100 ml -600 ml 1207 ml -130 ml Intake Oral 500 ml 0 ml 240 ml 720 ml IV Total 300 ml 100 ml 967 ml Output Urine Total 800 ml 600 ml 850 ml # Voids 2 # Bowel Movements 2 1 Result Diagram: 10/16/17203910/14/17912 Other Results Laboratory Tests Test 10/18/17 16:18 Prothromb Time International Ratio 1.2 RATIO Prothrombin Time 12.6 SEC (9.8-11.6) Objective Remarks right knee swelling. No erythema. No induration. Range of motion is tolerable. Assessment & Plan Assessment and Plan right knee pain and swelling knee aspiration no growth to date by interventional radiology 10/16/17 history of right foot infection, debridement by podiatry pt offered and refused I and D of knee, wanted to await culture results abx per ID no need for surgical intervention at this point. Improved pain and symptoms, negative cultures. f/u PCP or Call Dr Cross with questions. Shan Magana Jr., MD Oct 18, 2017 20:32
[2017-10-18] MEDS: INSULIN DETEMIR 100 UNITS/ML VIAL SQ SCH (21:47)
[2017-10-19] VITALS: BP 155/79; PULSE 107; RESP 19; TEMP 97.9; O2SAT 98
[2017-10-19] MEDS: ACETAMINOPHEN/HYDROcodone 325 MG/7.5 MG TAB PO PRN ×4 (02:02→23:31)
[2017-10-19 04:00] VITALS: BP 132/63; PULSE 99; RESP 19; TEMP 98.8; O2SAT 93
[2017-10-19] MEDS: HEPARIN SODIUM - SQ 10,000 UNITS/ML VIAL SQ SCH ×3 (04:48→21:23)
[2017-10-19] MEDS: MORPHINE SULFATE 8 MG/ML INJ IV PUSH PRN ×2 (04:48→21:51)
[2017-10-19] MEDS: LINEZOLID 600 MG PREMIX 300 ML IV SCH ×2 (04:48→17:00)
[2017-10-19] MEDS: LACTATED RINGER'S 1000 ML INJ 1,000 ML IV SCH (07:15)
[2017-10-19] MEDS: MORPHINE SULFATE 4 MG/ML INJ IV PUSH PRN ×4 (07:26→18:55)
[2017-10-19] MEDS: LACTOBACILLUS ACIDOPHILUS TAB PO SCH ×2 (07:26→21:22)
[2017-10-19] MEDS: LEVOFLOXACIN 500 MG TAB PO SCH (07:26)
[2017-10-19 08:00] VITALS: BP 154/82; PULSE 100; RESP 24; TEMP 99.3; O2SAT 93
[2017-10-19] MEDS: INSULIN ASPART SUPPLEMENTAL SCALE SQ SCH ×4 (08:00→21:24)
[2017-10-19] MEDS: INSULIN ASPART 1,000 UNITS/10 ML VIAL SQ SCH ×3 (08:00→17:00)
[2017-10-19] MEDS: SODIUM CHLORIDE 0.9% FLUSH 10 ML FLUSH IV FLUSH SCH ×2 (10:14→21:23)
[2017-10-19] MEDS: ACETAMINOPHEN 500 MG CPLT PO PRN (11:50)
[2017-10-19 12:00] VITALS: BP 133/65; PULSE 98; RESP 20; TEMP 98.8; O2SAT 95
[2017-10-19] MEDS: cefTRIAXone INJ 2,000 MG in SODIUM CHLORIDE 0.9% INJ 100 ML IV SCH (13:34)
--- NOTE | 2017-10-19 13:55 | HHI.PR ---
Subjective Remarks Patient seen bedside this morning. Patient states he had a rough day and night yesterday as his wound VAC was leaking and it was painful. No leak detected on wound VAC, functioning at 125 mm per mercury. Objective Vital Signs Date Time Temp Pulse Resp B/P (MAP) Pulse Ox O2 Delivery O2 Flow Rate FiO2 10/19/17 12:00 98.8 98 20 133/65 (87) 95 10/19/17 08:00 99.3 100 24 154/82 (106) 93 10/19/17 04:00 98.8 99 19 132/63 (86) 93 10/19/17 04:00 Nasal Cannula 2.00 10/19/17 00:00 97.9 107 19 155/79 (104) 98 10/19/17 00:00 Nasal Cannula 2.00 10/18/17 20:00 98.1 94 20 139/72 (94) 93 10/18/17 20:00 Nasal Cannula 2.00 10/18/17 16:00 98.8 100 18 157/87 (110) 94 I/O 10/18/17 10/18/17 10/18/17 10/19/17 10/19/17 10/19/17 07:00 15:00 23:00 07:00 15:00 23:00 Intake Total 1207 ml 720 ml 540 ml Output Total 850 ml 650 ml Balance 1207 ml -130 ml -110 ml Intake Oral 240 ml 720 ml 240 ml IV Total 967 ml 300 ml Output Urine Total 850 ml 650 ml # Voids 2 # Bowel Movements 1 Result Diagram: 10/16/172039 Imaging Last Impressions Chest Ultrasound 10/17/17 0000 Signed Impressions: Service Date/Time: Tuesday, October 17, 2017 20:24 - CONCLUSION: A moderate to large right pleural effusion is confirmed sonographically and marked for thoracentesis. Hector Pierre MD Chest CT 10/16/17 0000 Signed Impressions: Service Date/Time: October 20:14 - CONCLUSION: Moderate-sized bilateral pleural effusions with adjacent compressive atelectasis and/or pneumonia. Scattered increased interstitial infiltrates within the perihilar regions and upper lobes bilaterally raising the possibility of pulmonary vascular congestion. Cardiomegaly and coronary artery calcifications are noted. Mild pretracheal and AP window mediastinal lymphadenopathy which is nonspecific. Degenerative changes and mild scoliosis of the thoracic spine. Hector Pierre MD Abdomen/Pelvis CT 10/16/17 0000 Signed Impressions: Service Date/Time: October 20:14 - CONCLUSION: 1. Moderate-sized bilateral pleural effusions with adjacent consolidations consistent with atelectasis and/or pneumonia. 2. Tiny calcified nonobstructing bilateral renal calculi. 3. Mild hepatosplenomegaly. 4. Uncomplicated colonic diverticulosis. 5. Minimal free fluid within the pelvis. 6. Streakiness and fluid within the bilateral retroperitoneum inferior to the kidneys and extending into the presacral region. 7. Degenerative changes and scoliosis of the thoracolumbar spine. Hector Pierre MD Knee X-Ray 10/15/17 0000 Signed Impressions: Service Date/Time: Sunday, October 15, 2017 15:26 - CONCLUSION: Large joint effusion otherwise negative. Tu Lim MD FACR Chest X-Ray 10/13/17 0000 Signed Impressions: Service Date/Time: Friday, October 13, 2017 12:59 - CONCLUSION: Inflammatory changes right lower lobe with mild to moderate failure. Tu Lim MD FACR Carotid Artery Ultrasound 10/13/17 0000 Signed Impressions: Service Date/Time: Friday, October 13, 2017 16:12 - CONCLUSION: No evidence of flow-limiting carotid stenosis. Wm Riley MD Aorta w/Runoff CTA 10/13/17 0000 Signed Impressions: Service Date/Time: Friday, October 13, 2017 22:41 - CONCLUSION: 1. No aortic occlusive disease. 2. No significant iliac inflow stenosis. 3. No significant outflow stenosis. 4. Diffuse bilateral runoff disease with heavily calcified tibial arteries and significant venous contamination precluding patency evaluation beyond the very proximal calf. 5. Small to moderate bilateral pleural effusions with associated airspace disease at the lung bases, presumably atelectasis. 6. Trace free fluid in the deep pelvis. 7. Ancillary findings include hepatic steatosis, nonobstructing punctate calyceal calculus in the inferior pole of the left kidney and small suprapatellar right joint effusion. Lupillo Webster MD Foot MRI 10/12/17 0000 Signed Impressions: Service Date/Time: Thursday, October 12, 2017 08:31 - CONCLUSION: 1. No areas of suspected osteomyelitis. 2. Superficial soft tissue swelling over the third and fourth metatarsals. There is also some edema within the plantar musculature. Wm Dupree MD Ankle MRI 10/11/17 0000 Signed Impressions: Service Date/Time: Wednesday, October 11, 2017 09:41 - CONCLUSION: 1. No definite areas of osteomyelitis. There is some edema within the lateral cuboid adjacent to the suspected surgical defect which is likely reactive. T1 signal is maintained. 2. Multiple areas of focal edema within the midfoot mainly related to the subarticular regions likely related to underlying arthritic change. 3. The patient appears to be status post resection of the fifth metatarsal with post surgical change at the lateral hind and midfoot and a small focus of air seen adjacent to the calcaneus. Wm Dupree MD Foot X-Ray 10/07/17 0000 Signed Impressions: Service Date/Time: Saturday, October 07, 2017 13:15 - CONCLUSION: 1. Prominent soft tissue swelling overlying the fifth proximal metatarsal at the MTP joint. No definitive erosive bony change to suggest osteomyelitis. Lupillo Webster MD Procedures s/p right foot incision and drainage; repeat incision and drainage performed Other Results Microbiology Date/Time Source Procedure Growth Status 10/14/17 17:17 Blood Peripheral Aerobic Blood Culture - Final NO GROWTH IN 5 DAYS Complete 10/14/17 17:17 Blood Peripheral Anaerobic Blood Culture - Final NO GROWTH IN 5 DAYS Complete 10/16/17 16:07 Fluid Synovial Fluid Gram Stain - Final Complete 10/16/17 16:07 Fluid Synovial Fluid Body Fluid Culture - Final NO GROWTH IN 72 HRS.--AEROBICALLY OR ... Complete 10/11/17 00:00 Wound Foot Gram Stain - Final Complete 10/11/17 00:00 Wound Culture - Final Staphylococcus Aureus Strep Not A,B D Complete Objective Remarks Vascular: Dorsalis pedis 1/4, posterior tibial 0/4. Capillary refill time within normal limits to digits 4 right foot, 5 left foot. Edema present right foot and ankle Neuro: Gross sensation intact to bilateral lower extremity. No hyperalgesia noted to bilateral lower extremity Dermatology: Right lateral foot incision extending from fourth metatarsal head to lateral malleolus with sutures intact, mild maceration noted on wound VAC removal to the very distal aspect of incision. No purulent drainage noted on compression. Exposed capsule noted to the lateral midfoot. Mild erythema noted to right foot and ankle. Anterior incisions 2 noted with sutures intact and skin well coapted, no purulent drainage upon compression. Left foot submetatarsal 5 also noted with granular base, no surrounding erythema, no purulent drainage upon compression, no probe to bone. Musculoskeletal: Tender to palpation globally to right foot and ankle. Medications and IVs Current Medications Medications (Trade) Dose Ordered Sig/Anna Route Start Time Stop Time Status Last Admin (NS Flush) 2 ml UNSCH PRN IV FLUSH 10/07/17 16:45 10/15/17 03:41 (NS Flush) 2 ml BID IV FLUSH 10/07/17 21:00 10/19/17 10:14 (Narcan Inj) 0.4 mg UNSCH PRN IV PUSH 10/07/17 16:45 (Heparin Inj) 5,000 units Q8HR SQ 10/08/17 06:00 10/18/17 21:46 (D50w (Vial) Inj) 50 ml UNSCH PRN IV PUSH 10/08/17 10:30 (Glucagon Inj) 1 mg UNSCH PRN OTHER 10/08/17 10:30 (NovoLOG SUPPLEMENTAL SCALE) 1 ACHS SLIDING SCALE SQ 10/08/17 12:00 10/18/17 21:47 (Lactinex) 1 tab Q12HR PO 10/08/17 21:00 10/19/17 07:26 (NovoLOG INJ) 5 units TIDAC SQ 10/12/17 08:00 10/17/17 17:00 (Levemir Inj) 15 units HS SQ 10/12/17 21:00 10/18/17 21:47 ([place] 7.5-325 Mg) 1 tab Q6H PRN PO 10/13/17 12:45 10/19/17 10:12 (Morphine Inj) 5 mg Q4H PRN IV PUSH 10/13/17 12:45 10/19/17 04:48 (Morphine Inj) 4 mg Q3H PRN IV PUSH 10/13/17 12:45 10/19/17 11:01 (Restoril) 15 mg HS PRN PO 10/13/17 12:45 (Tylenol) 500 mg Q4H PRN PO 10/13/17 13:15 10/19/17 11:50 Ceftriaxone Sodium 2000 mg/ Sodium Chloride 100 ml @ 200 mls/hr Q24H IV 10/13/17 14:00 10/18/17 13:56 (Levaquin) 500 mg DAILY PO 10/14/17 17:00 10/19/17 07:26 Linezolid 300 ml @ 300 mls/hr Q12H IV 10/14/17 17:00 10/19/17 04:48 Lactated Ringer's 1,000 ml @ 50 mls/hr Q20H IV 10/16/17 19:15 10/17/17 13:16 Assessment and Plan Assessment and Plan 57-year-old male status post repeat incision and drainage of right foot and ankle and s/p debridement and irrigation of left foot submet 5 ulcer DOS: Patient examined evaluated with all questions answered Wound VAC removed to right lower extremity Dry sterile dressing placed to right lower extremity as this laceration was present Wound care consult to be placed for wound VAC changes Will evaluate for DC, patient continues to have erythema and swelling although improvement is noted No planned surgical intervention at this time Continue IV antibiotics Patient will need to go home on IV abx and final infectious disease antibiotics recommended Nursing dressing changes to left foot wound daily with wound gel Adaptic 4 x 4' s and [place] Concern for exposed bone, anticipate further granulation once wound VAC removed and right foot reevaluated -minimal granulation noted to exposed bone Raquel Hobbs DPM Oct 19, 2017 13:55
--- NOTE | 2017-10-19 13:58 | HHI.PR ---
Subjective Remarks Follow up for bacteremia, diabetic foot infection, right knee effusion and bilateral pleural effusion. Patient is currently doing well. His knee pain is getting better. No fever or chills. Currently on room air. Objective Vitals Vital Signs Date Time Temp Pulse Resp B/P (MAP) Pulse Ox O2 Delivery O2 Flow Rate FiO2 10/19/17 12:00 98.8 98 20 133/65 (87) 95 10/19/17 08:00 99.3 100 24 154/82 (106) 93 10/19/17 04:00 98.8 99 19 132/63 (86) 93 10/19/17 04:00 Nasal Cannula 2.00 10/19/17 00:00 97.9 107 19 155/79 (104) 98 10/19/17 00:00 Nasal Cannula 2.00 10/18/17 20:00 98.1 94 20 139/72 (94) 93 10/18/17 20:00 Nasal Cannula 2.00 10/18/17 16:00 98.8 100 18 157/87 (110) 94 I/O 10/18/17 10/18/17 10/18/17 10/19/17 10/19/17 10/19/17 06:59 14:59 22:59 06:59 14:59 22:59 Intake Total 1207 ml 720 ml 540 ml Output Total 850 ml 650 ml Balance 1207 ml -130 ml -110 ml Intake Oral 240 ml 720 ml 240 ml IV Total 967 ml 300 ml Output Urine Total 850 ml 650 ml # Voids 2 # Bowel Movements 1 Result Diagram: 10/16/172039 Imaging Last Impressions Chest Ultrasound 10/17/17 0000 Signed Impressions: Service Date/Time: Tuesday, October 17, 2017 20:24 - CONCLUSION: A moderate to large right pleural effusion is confirmed sonographically and marked for thoracentesis. Hector Pierre MD Chest CT 10/16/17 0000 Signed Impressions: Service Date/Time: October 20:14 - CONCLUSION: Moderate-sized bilateral pleural effusions with adjacent compressive atelectasis and/or pneumonia. Scattered increased interstitial infiltrates within the perihilar regions and upper lobes bilaterally raising the possibility of pulmonary vascular congestion. Cardiomegaly and coronary artery calcifications are noted. Mild pretracheal and AP window mediastinal lymphadenopathy which is nonspecific. Degenerative changes and mild scoliosis of the thoracic spine. Hector Pierre MD Abdomen/Pelvis CT 10/16/17 0000 Signed Impressions: Service Date/Time: October 20:14 - CONCLUSION: 1. Moderate-sized bilateral pleural effusions with adjacent consolidations consistent with atelectasis and/or pneumonia. 2. Tiny calcified nonobstructing bilateral renal calculi. 3. Mild hepatosplenomegaly. 4. Uncomplicated colonic diverticulosis. 5. Minimal free fluid within the pelvis. 6. Streakiness and fluid within the bilateral retroperitoneum inferior to the kidneys and extending into the presacral region. 7. Degenerative changes and scoliosis of the thoracolumbar spine. Hector Pierre MD Knee X-Ray 10/15/17 0000 Signed Impressions: Service Date/Time: Sunday, October 15, 2017 15:26 - CONCLUSION: Large joint effusion otherwise negative. Tu Lim MD FACR Chest X-Ray 10/13/17 0000 Signed Impressions: Service Date/Time: Friday, October 13, 2017 12:59 - CONCLUSION: Inflammatory changes right lower lobe with mild to moderate failure. Tu Lim MD FACR Carotid Artery Ultrasound 10/13/17 0000 Signed Impressions: Service Date/Time: Friday, October 13, 2017 16:12 - CONCLUSION: No evidence of flow-limiting carotid stenosis. Wm Riley MD Aorta w/Runoff CTA 10/13/17 0000 Signed Impressions: Service Date/Time: Friday, October 13, 2017 22:41 - CONCLUSION: 1. No aortic occlusive disease. 2. No significant iliac inflow stenosis. 3. No significant outflow stenosis. 4. Diffuse bilateral runoff disease with heavily calcified tibial arteries and significant venous contamination precluding patency evaluation beyond the very proximal calf. 5. Small to moderate bilateral pleural effusions with associated airspace disease at the lung bases, presumably atelectasis. 6. Trace free fluid in the deep pelvis. 7. Ancillary findings include hepatic steatosis, nonobstructing punctate calyceal calculus in the inferior pole of the left kidney and small suprapatellar right joint effusion. Lupillo Webster MD Foot MRI 10/12/17 0000 Signed Impressions: Service Date/Time: Thursday, October 12, 2017 08:31 - CONCLUSION: 1. No areas of suspected osteomyelitis. 2. Superficial soft tissue swelling over the third and fourth metatarsals. There is also some edema within the plantar musculature. Wm Dupree MD Ankle MRI 10/11/17 0000 Signed Impressions: Service Date/Time: Wednesday, October 11, 2017 09:41 - CONCLUSION: 1. No definite areas of osteomyelitis. There is some edema within the lateral cuboid adjacent to the suspected surgical defect which is likely reactive. T1 signal is maintained. 2. Multiple areas of focal edema within the midfoot mainly related to the subarticular regions likely related to underlying arthritic change. 3. The patient appears to be status post resection of the fifth metatarsal with post surgical change at the lateral hind and midfoot and a small focus of air seen adjacent to the calcaneus. Wm Dupree MD Foot X-Ray 10/07/17 0000 Signed Impressions: Service Date/Time: Saturday, October 07, 2017 13:15 - CONCLUSION: 1. Prominent soft tissue swelling overlying the fifth proximal metatarsal at the MTP joint. No definitive erosive bony change to suggest osteomyelitis. Lupillo Webster MD Objective Remarks GENERAL: Alert, NAD. SKIN: Warm and dry. HEAD: Normocephalic. EYES: No scleral icterus. No injection or drainage. NECK: Supple, trachea midline. No JVD or lymphadenopathy. CARDIOVASCULAR: Regular rate and rhythm without murmurs, gallops, or rubs. RESPIRATORY: Breath sounds equal bilaterally. No accessory muscle use. GASTROINTESTINAL: Abdomen soft, non-tender, nondistended. MUSCULOSKELETAL: No cyanosis, or edema. Right foot wrapped in dressing. Left foot, lateral side has an old wound. Right knee is swollen and warm to touch compared to left knee. BACK: Nontender without obvious deformity. No CVA tenderness. Procedures s/p Right foot and ankle incision drainage, 5th metatarsal resection, 5th digit amputation 10/08/17 A/P Problem List: (1) Osteomyelitis of foot ICD Code: M86.9 - Osteomyelitis, unspecified (2) Leukocytosis ICD Code: D72.829 - Elevated white blood cell count, unspecified (3) Dehydration with hyponatremia ICD Code: E87.1 - Hypo-osmolality and hyponatremia (4) Acute kidney injury ICD Code: N17.9 - Acute kidney failure, unspecified (5) Sepsis ICD Code: A41.9 - Sepsis, unspecified organism Status: Acute (6) Diabetic foot ulcer ICD Code: E11.621 - Type 2 diabetes mellitus with foot ulcer; L97.509 - Non- pressure chronic ulcer of other part of unspecified foot with unspecified severity Status: Acute (7) Acute renal failure superimposed on stage 3 chronic kidney disease ICD Code: N17.9 - Acute kidney failure, unspecified; N18.3 - Chronic kidney disease, stage 3 (moderate) (8) Bacteremia due to Gram-positive bacteria ICD Code: R78.81 - Bacteremia (9) Postoperative anemia ICD Code: D64.9 - Anemia, unspecified Assessment and Plan 57 year-old man with Sepsis - Secondary to diabetic foot infection Right foot osteomyelitis Diabetic foot infection Bacteremia with gram-positive cocci Possible hospital-acquired pneumonia s/p Right foot and ankle incision drainage, 5th metatarsal resection, 5th digit amputation 10/08/17 ID and podiatry following. Wound culture positive for Staph and Strep not A, B, D Discussed with infectious disease. Patient is currently on ceftriaxone, Levaquin, Zyvox. Probable further debridement on 10/15/2017 by podiatry Right knee effusion - Knee is warm to touch compared to left knee - Concerning for gout vs. septic arthritis. - He is already on Levaquin, Ceftriaxone as well as Zyvox. -Patient would like to wait before orthopedic surgical I&D is done. -Bilateral pleural effusion -Pulmonary is following. Patient would like to do thoracentesis by radiology department. -Ultrasound marking was done on the right side. Possible thoracentesis today or tomorrow. Peripheral vascular disease - vascular surgery is following. Patient underwent CTA with runoff. Per vascular surgery, no intervention at this point. Postoperatively anemia Transfused 2 units packed red cell. Hgb 11.0 on 10/11/2017. Diabetes type 2 continue Levemir to 15 units nightly Continue pre-meal insulin aspart 5 units 3 times a day before meals. Goal glucose in hospital: 140 - 180. Acute kidney injury chronic kidney disease stage III Creatinine improved from around 1.94 on admission --> 0.92 on 10/14/2017. avoid all nephrotoxic drugs Hypokalemia - Replaced with p.o. potassium. Full code. DVT prophylaxis- heparin Problem Qualifiers (1) Sepsis: Qualified Codes: A41.9 - Sepsis, unspecified organism (2) Diabetic foot ulcer: Qualified Codes: E10.621 - Type 1 diabetes mellitus with foot ulcer; L97.419 - Non-pressure chronic ulcer of right heel and midfoot with unspecified severity Christian Joe DO Oct 19, 2017 13:57
[2017-10-19 16:00] VITALS: BP 153/82; PULSE 98; RESP 20; TEMP 98.4; O2SAT 93
--- NOTE | 2017-10-19 17:48 | HHI.PR ---
Subjective Remarks 57 YOWm with DM,Diabetic foot ulcer,Pl eff, Lung infilt US chest Mod to large Rt Pl eff no Fever Denies SOB No new complaint Objective Vital Signs Vital Signs Date Time Temp Pulse Resp B/P (MAP) Pulse Ox O2 Delivery O2 Flow Rate FiO2 10/19/17 16:00 98.4 98 20 153/82 (105) 93 10/19/17 12:00 98.8 98 20 133/65 (87) 95 10/19/17 08:00 99.3 100 24 154/82 (106) 93 10/19/17 04:00 98.8 99 19 132/63 (86) 93 10/19/17 04:00 Nasal Cannula 2.00 10/19/17 00:00 97.9 107 19 155/79 (104) 98 10/19/17 00:00 Nasal Cannula 2.00 10/18/17 20:00 98.1 94 20 139/72 (94) 93 10/18/17 20:00 Nasal Cannula 2.00 I/O 10/18/17 10/18/17 10/18/17 10/19/17 10/19/17 10/19/17 07:00 15:00 23:00 07:00 15:00 23:00 Intake Total 1207 ml 720 ml 540 ml Output Total 850 ml 650 ml Balance 1207 ml -130 ml -110 ml Intake Oral 240 ml 720 ml 240 ml IV Total 967 ml 300 ml Output Urine Total 850 ml 650 ml # Voids 2 # Bowel Movements 1 Result Diagram: 10/16/172039 Objective Remarks GENERAL: WBWN WM,NAD SKIN: Warm and dry. HEAD: Normocephalic. EYES: No scleral icterus. No injection or drainage. NECK: Supple, trachea midline. No JVD or lymphadenopathy. CARDIOVASCULAR: Regular rate and rhythm without murmurs, gallops, or rubs. RESPIRATORY: Breath sounds equal bilaterally. No accessory muscle use. Decreased BS at Bases GASTROINTESTINAL: Abdomen soft, non-tender, nondistended. MUSCULOSKELETAL: No cyanosis, or edema. Foot ulcer, VAC device BACK: Nontender without obvious deformity. No CVA tenderness. A/P Assessment and Plan Bilat Pl effusion Lung infilt/ septic emboli DM Foot Ulcer PLAN: I was going to do Bedside TC, pt prefers to have it done by IR in radiology dept Will Consult IR Cont Abx Stable on RA DW . Curtis Liao MD Oct 19, 2017 17:48
[2017-10-19 20:00] VITALS: BP 142/76; PULSE 101; RESP 16; TEMP 99; O2SAT 93
[2017-10-19] MEDS: INSULIN DETEMIR 100 UNITS/ML VIAL SQ SCH (21:23)
[2017-10-20] VITALS (8 sets, daily range): BP systolic 134–155; BP diastolic 65–89; PULSE 93–111; RESP 16–21; TEMP 98.8–99.8; O2SAT 90–98
[2017-10-20] MEDS: MORPHINE SULFATE 8 MG/ML INJ IV PUSH PRN ×3 (02:58→15:45)
[2017-10-20] MEDS: LACTATED RINGER'S 1000 ML INJ 1,000 ML IV SCH ×2 (03:15→19:48)
[2017-10-20] MEDS: ACETAMINOPHEN/HYDROcodone 325 MG/7.5 MG TAB PO PRN ×3 (05:34→18:47)
[2017-10-20] MEDS: LINEZOLID 600 MG PREMIX 300 ML IV SCH ×2 (05:34→18:51)
[2017-10-20] MEDS: HEPARIN SODIUM - SQ 10,000 UNITS/ML VIAL SQ SCH ×4 (05:34→20:20)
[2017-10-20] MEDS: INSULIN ASPART SUPPLEMENTAL SCALE SQ SCH ×4 (07:50→20:30)
[2017-10-20] MEDS: SODIUM CHLORIDE 0.9% FLUSH 10 ML FLUSH IV FLUSH SCH ×2 (09:26→20:10)
[2017-10-20] MEDS: LEVOFLOXACIN 500 MG TAB PO SCH (09:26)
[2017-10-20] MEDS: LACTOBACILLUS ACIDOPHILUS TAB PO SCH ×2 (09:26→20:11)
[2017-10-20] MEDS: INSULIN ASPART 1,000 UNITS/10 ML VIAL SQ SCH ×3 (09:27→18:46)
[2017-10-20] MEDS: cefTRIAXone INJ 2,000 MG in SODIUM CHLORIDE 0.9% INJ 100 ML IV SCH (12:50)
--- NOTE | 2017-10-20 12:56 | HHI.PR ---
Subjective Remarks Follow up for bacteremia, diabetic foot infection, right knee effusion and bilateral pleural effusion. Patient is currently doing well. No fever or chills. He feels that his knee is getting better. He is on room air. He is going for thoracentesis by IR today. Objective Vitals Vital Signs Date Time Temp Pulse Resp B/P (MAP) Pulse Ox O2 Delivery O2 Flow Rate FiO2 10/20/17 12:00 99.3 111 21 144/71 (95) 92 10/20/17 08:00 99.2 107 18 134/73 (93) 91 10/20/17 04:00 Nasal Cannula 2.00 10/20/17 04:00 99.8 103 16 141/71 (94) 94 10/20/17 00:00 Nasal Cannula 2.00 10/20/17 00:00 99.5 96 16 138/65 (89) 94 10/19/17 20:00 Room Air 10/19/17 20:00 99.0 101 16 142/76 (98) 93 10/19/17 16:00 98.4 98 20 153/82 (105) 93 I/O 10/19/17 10/19/17 10/19/17 10/20/17 10/20/17 10/20/17 06:59 14:59 22:59 06:59 14:59 22:59 Intake Total 540 ml 720 ml 660 ml Output Total 650 ml 1000 ml 1000 ml Balance -110 ml -280 ml -340 ml Intake Oral 240 ml 720 ml 360 ml IV Total 300 ml 300 ml Output Urine Total 650 ml 1000 ml 1000 ml # Bowel Movements 1 Result Diagram: 10/16/172039 Objective Remarks GENERAL: Alert, NAD. SKIN: Warm and dry. HEAD: Normocephalic. EYES: No scleral icterus. No injection or drainage. NECK: Supple, trachea midline. No JVD or lymphadenopathy. CARDIOVASCULAR: Regular rate and rhythm without murmurs, gallops, or rubs. RESPIRATORY: Breath sounds equal bilaterally. No accessory muscle use. GASTROINTESTINAL: Abdomen soft, non-tender, nondistended. MUSCULOSKELETAL: No cyanosis, or edema. Right foot wrapped in dressing. Left foot, lateral side has an old wound. Right knee is swollen and warm to touch compared to left knee. BACK: Nontender without obvious deformity. No CVA tenderness. Procedures s/p Right foot and ankle incision drainage, 5th metatarsal resection, 5th digit amputation 10/08/17 A/P Problem List: (1) Osteomyelitis of foot ICD Code: M86.9 - Osteomyelitis, unspecified (2) Leukocytosis ICD Code: D72.829 - Elevated white blood cell count, unspecified (3) Dehydration with hyponatremia ICD Code: E87.1 - Hypo-osmolality and hyponatremia (4) Acute kidney injury ICD Code: N17.9 - Acute kidney failure, unspecified (5) Sepsis ICD Code: A41.9 - Sepsis, unspecified organism Status: Acute (6) Diabetic foot ulcer ICD Code: E11.621 - Type 2 diabetes mellitus with foot ulcer; L97.509 - Non- pressure chronic ulcer of other part of unspecified foot with unspecified severity Status: Acute (7) Acute renal failure superimposed on stage 3 chronic kidney disease ICD Code: N17.9 - Acute kidney failure, unspecified; N18.3 - Chronic kidney disease, stage 3 (moderate) (8) Bacteremia due to Gram-positive bacteria ICD Code: R78.81 - Bacteremia (9) Postoperative anemia ICD Code: D64.9 - Anemia, unspecified Assessment and Plan 57 year-old man with Sepsis - Secondary to diabetic foot infection Right foot osteomyelitis Diabetic foot infection Bacteremia with gram-positive cocci Possible hospital-acquired pneumonia s/p Right foot and ankle incision drainage, 5th metatarsal resection, 5th digit amputation 10/08/17 ID and podiatry following. Wound culture positive for Staph and Strep not A, B, D Discussed with infectious disease. Patient is currently on ceftriaxone, Levaquin, Zyvox. Probable further debridement on 10/15/2017 by podiatry Podiatry recommends IV abx upon discharge. Final abx recommendations per ID. Right knee effusion - Knee is warm to touch compared to left knee - Concerning for gout vs. septic arthritis. - He is already on Levaquin, Ceftriaxone as well as Zyvox. -Ortho note from 10/18/2017 indicates no need for any surgical intervention at this point. We will continue abx. -Bilateral pleural effusion -Pulmonary is following. Patient would like to do thoracentesis by radiology department. -Right-sided thoracentesis today. Peripheral vascular disease - vascular surgery is following. Patient underwent CTA with runoff. Per vascular surgery, no intervention at this point. Postoperatively anemia Transfused 2 units packed red cell. Hgb 11.0 on 10/11/2017. Diabetes type 2 continue Levemir to 15 units nightly Continue pre-meal insulin aspart 5 units 3 times a day before meals. Goal glucose in hospital: 140 - 180. Acute kidney injury chronic kidney disease stage III Creatinine improved from around 1.94 on admission --> 0.92 on 10/14/2017. avoid all nephrotoxic drugs Hypokalemia - Replaced with p.o. potassium. Full code. DVT prophylaxis- heparin Problem Qualifiers (1) Sepsis: Qualified Codes: A41.9 - Sepsis, unspecified organism (2) Diabetic foot ulcer: Qualified Codes: E10.621 - Type 1 diabetes mellitus with foot ulcer; L97.419 - Non-pressure chronic ulcer of right heel and midfoot with unspecified severity Christian Joe DO Oct 20, 2017 12:56
--- NOTE | 2017-10-20 13:37 | MB ---
cc: Curtis Liao MD DATE OF CONSULT: 10/17/2017 REQUESTING PHYSICIAN: Dr. Chuyita Quinteros REASON FOR CONSULTATION: Evaluation of pleural effusion and lung infiltrates. HISTORY OF PRESENT ILLNESS: Mr. 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 He has been getting treatment. He had VAC device placed and has been taking antibiotics. He has diabetes mellitus. Recently his diabetes mellitus medication was changed and he came to the hospital with possible infection and changes in diabetic medication. He had a workup done. He was found to have fluid in the knee. He had a CT of the chest done which showed lung infiltrates and bilateral pleural effusions. His wound culture is growing Staph aureus. His CBC showed WBC count 8.8, hemoglobin 8.6, hematocrit 25, MCV 82, platelet count 393,000. Sodium 137, potassium 3.2, chloride 106, CO2 22, BUN 15, creatinine 0.52. PAST MEDICAL HISTORY: Significant for history of diabetes mellitus, diabetic foot ulcer, renal stones. MEDICATIONS: He is currently taking Rocephin 2 gm q. 24 hours, Levaquin 500 mg a day, potassium 20 mEq a day, Zyvox 12 q. 12 hours, hydrocodone for pain, Temazepam 150 mg at night, insulin detemir 15 units at nighttime, NovoLog insulin. ALLERGIES: NO KNOWN DRUG ALLERGIES. SOCIAL HISTORY: He is for the second time. He used to work as a outside maintenance worker.He has a history of alcohol and smoking abuse and quit before. FAMILY HISTORY: He has 2 children from the previous marriage. REVIEW OF SYSTEMS: Denies any seizures, stroke or epilepsy, no malignancy and no coronary artery disease. PHYSICAL EXAMINATION: GENERAL: Elderly but no acute distress. VITAL SIGNS: Blood pressure 128/75, heart rate 99, respirations 22, temperature 99.5. HEENT: Pupils are equal and reactive. Oral mucosa and nasal mucosa normal. NECK: Supple. CHEST: Decreased breath sounds at the bases. CARDIOVASCULAR: S1, S2 normal. ABDOMEN: Soft, nontender. Bowel sounds are present. EXTREMITIES: He has a foot wound and he has a VAC device on the right foot. IMPRESSION: 1. Bilateral pleural effusions. 2. Lung infiltrate, possible septic emboli. 3. Diabetic foot ulcer. 4. Right knee fluid possible infection. PLAN: I discussed with patient that he will need a thoracentesis. I explained the procedure including the complications of anesthesia, ptx, bleeding complications. which he understands well and wants to proceed with thoracentesis. Further treatment will depend on the course in the hospital. Thank you Dr. Chuyita Quinteros for this consult. Curtis Liao MD ADA/rt , 08:11 PM , 01:08 AM MTDTea
--- NOTE | 2017-10-20 13:42 | RADRPT ---
EXAM DATE/TIME: 10/16/2017 15:48 [facility] COMPARISON: No previous studies available for comparison. INDICATIONS : Patient presents with possible septic joint in need of knee aspiration for evaluation. MEDICAL HISTORY : DM II Renal stones SURGICAL HISTORY : Right foot debridement of wound Removal of kidney stones Tonsillitis ENCOUNTER: Initial ACUITY: 3 days PAIN SCORE: 7/10 LOCATION: Right Knee FLUORO TIME: 0.2 minutes IMAGE SERIES: 1 DEVICE(S): 22 gauge needle was placed into the right knee joint. FLUID: Total volume of20 cc of cloudy yellow fluid was removed. Fluid specimen was submitted to the lab for evaluation. PROCEDURE : 1. Fluoroscopically guided right knee aspiration. The risks, benefits and alternatives to the procedure were explained and verbal and written consent w as obtained. The site was prepped in sterile fashion. Full sterile technique was used, including ca p, mask, sterile gloves and gown and a large sterile sheet. Hand hygiene and 2% chlorhexidine and/or betadine/alcohol prep was utilized per protocol for cutaneous antisepsis. The skin and subcutaneous tissues were infiltrated with local anesthetic solution. The described fluid was removed without difficulty from a lateral approach. The patient tolerated the procedure well and there were no complications. CONCLUSION: Uncomplicated aspiration as above. Chetan Escobedo MD on October 20, 2017 at 13:39 Board Certified Radiologist. This report was verified electronically.
[2017-10-20] MEDS ORDERED: LIDOCAINE HCL 1% 20 ML VIAL SQ ONE (14:59)
--- NOTE | 2017-10-20 15:02 | RADRPT ---
EXAM DATE/TIME: 10/20/2017 13:03 [facility] COMPARISON: No previous studies available for comparison. INDICATIONS : Right pleural effusion. MEDICAL HISTORY : Kidney stones. Diabetic. SURGICAL HISTORY : Tonsillectomy. ENCOUNTER: Subsequent ACUITY: 2 days PAIN SCORE: 10/10 LOCATION: Right chest FLUID: Total volume of 1100 cc of cloudy, yellow fluid was removed. Fluid was sent to lab for ordered studies. TECHNIQUE: 1. Ultrasound guidance for thoracentesis. 2. Thoracentesis. The risks, benefits, and alternatives to ultrasound guided thoracentesis were explained to the patien t in lay simple terms, including the risk of bleeding and infection. Written and verbal informed con sent was obtained. Appropriate area for thoracentesis was marked under ultrasound guidance with the patient in the uprig ht position. Overlying skin was prepped and draped in the usual sterile fashion and with local anest hetic, a dermatotomy was made with an 11 blade scalpel. A 6 Wolof thoracentesis catheter was placed in the pleural space and fluid was removed. Catheter was then removed and a sterile dressing applie d. There were no immediate complications. The patient tolerated the procedure well and the left the ultrasound suite in stable condition. Chest radiograph is to be obtained. CONCLUSION: Uncomplicated ultrasound guided thoracentesis. Smooth Saucedo MD on October 20, 2017 at 15:00 Board Certified Radiologist. This report was verified electronically.
--- NOTE | 2017-10-20 15:17 | RADRPT ---
EXAM DATE/TIME: 10/20/2017 14:37 [facility] COMPARISON: CT THORAX W CONTRAST, October 16, 2017, 20:14. INDICATIONS : Post right side thoacentesis. MEDICAL HISTORY : Diabetes mellitus type II. Renal calculi SURGICAL HISTORY : None. ENCOUNTER: Subsequent ACUITY: 1 week PAIN SCORE: 0/10 LOCATION: Bilateral chest FINDINGS: The cardiac silhouette is enlarged in transverse diameter. Following thoracentesis no pneumothorax is identified. There is significant reduction in the previously seen effusion. There are findings of co ngestive heart failure with interstitial and alveolar opacity bilaterally. There is left basilar atel ectasis and left-sided effusion. CONCLUSION: 1. There is no evidence of pneumothorax. Chetan Escobedo MD on October 20, 2017 at 15:14 Board Certified Radiologist. This report was verified electronically.
[2017-10-20 17:32] LABS: TOTAL PROTEIN,PLEURAL FLUID 1.6 GM/DL
[2017-10-20 18:17] LABS: PLEURAL FLUID LYMPHS 53 %; PLEURAL FLUID MESOTHELIAL 2 %; PLEURAL FLUID MONOS 12 %; PLEURAL FLUID POLYS (SEGS) 33 %
[2017-10-20 18:35] LABS: PLEURAL FLUID RBC 20 /MM3 (0-0); PLEURAL FLUID WBC 51 /MM3 (0-10)
--- NOTE | 2017-10-20 19:07 | HHI.PR ---
Subjective Remarks 57 YOWm with DM,Diabetic foot ulcer,Pl eff, Lung infilt US chest Mod to large Rt Pl eff no Fever Denies SOB Had TC, 1100 cc fluid removed No new complaint Objective Vital Signs Vital Signs Date Time Temp Pulse Resp B/P (MAP) Pulse Ox O2 Delivery O2 Flow Rate FiO2 10/20/17 18:33 99.7 105 16 155/89 (111) 90 10/20/17 16:11 98.8 97 18 142/80 (100) 98 10/20/17 15:08 93 21 154/82 (106) 92 10/20/17 14:53 99.3 95 20 150/83 (105) 94 10/20/17 12:00 99.3 111 21 144/71 (95) 92 10/20/17 08:00 99.2 107 18 134/73 (93) 91 10/20/17 04:00 Nasal Cannula 2.00 10/20/17 04:00 99.8 103 16 141/71 (94) 94 10/20/17 00:00 Nasal Cannula 2.00 10/20/17 00:00 99.5 96 16 138/65 (89) 94 10/19/17 20:00 Room Air 10/19/17 20:00 99.0 101 16 142/76 (98) 93 I/O 10/19/17 10/19/17 10/19/17 10/20/17 10/20/17 10/20/17 07:00 15:00 23:00 07:00 15:00 23:00 Intake Total 540 ml 720 ml 660 ml 240 ml Output Total 650 ml 1000 ml 1000 ml 1000 ml Balance -110 ml -280 ml -340 ml -760 ml Intake Oral 240 ml 720 ml 360 ml 240 ml IV Total 300 ml 300 ml Output Urine Total 650 ml 1000 ml 1000 ml 1000 ml # Bowel Movements 1 0 Result Diagram: 10/16/172039 Objective Remarks GENERAL: WBWN WM,NAD SKIN: Warm and dry. HEAD: Normocephalic. EYES: No scleral icterus. No injection or drainage. NECK: Supple, trachea midline. No JVD or lymphadenopathy. CARDIOVASCULAR: Regular rate and rhythm without murmurs, gallops, or rubs. RESPIRATORY: Breath sounds equal bilaterally. No accessory muscle use. Decreased BS at Bases GASTROINTESTINAL: Abdomen soft, non-tender, nondistended. MUSCULOSKELETAL: No cyanosis, or edema. Foot ulcer, VAC device BACK: Nontender without obvious deformity. No CVA tenderness. A/P Assessment and Plan Bilat Pl effusion Lung infilt/ septic emboli DM Foot Ulcer PLAN: Check pl fluid results Cont Abx Stable on RA Curtis Liao MD Oct 20, 2017 19:07
[2017-10-20] MEDS: MORPHINE SULFATE 4 MG/ML INJ IV PUSH PRN ×2 (20:11→23:20)
[2017-10-20] MEDS: INSULIN DETEMIR 100 UNITS/ML VIAL SQ SCH (20:13)
[2017-10-21] MEDS: ACETAMINOPHEN/HYDROcodone 325 MG/7.5 MG TAB PO PRN ×4 (02:28→20:57)
[2017-10-21 04:10] VITALS: BP 136/65; PULSE 98; RESP 16; TEMP 98.9; O2SAT 93
[2017-10-21] MEDS: MORPHINE SULFATE 4 MG/ML INJ IV PUSH PRN (04:54)
[2017-10-21] MEDS: LINEZOLID 600 MG PREMIX 300 ML IV SCH ×2 (04:55→16:54)
[2017-10-21] MEDS: HEPARIN SODIUM - SQ 10,000 UNITS/ML VIAL SQ SCH ×3 (04:55→20:57)
[2017-10-21 08:00] VITALS: BP 156/85; PULSE 104; RESP 20; TEMP 99.3; O2SAT 90
[2017-10-21] MEDS: INSULIN ASPART 1,000 UNITS/10 ML VIAL SQ SCH ×3 (08:00→16:55)
[2017-10-21] MEDS: INSULIN ASPART SUPPLEMENTAL SCALE SQ SCH ×4 (08:00→20:57)
[2017-10-21] MEDS: SODIUM CHLORIDE 0.9% FLUSH 10 ML FLUSH IV FLUSH SCH ×2 (08:31→20:58)
[2017-10-21] MEDS: LACTOBACILLUS ACIDOPHILUS TAB PO SCH ×2 (08:31→20:58)
[2017-10-21] MEDS: LEVOFLOXACIN 500 MG TAB PO SCH (08:31)
--- NOTE | 2017-10-21 11:27 | PD.WCN.NOT ---
Wound Consult Description: Wound consult ordered by for Vac placement to Right lateral foot Communicated with: Roxie CARL [address] [place] [address], Recommendation: 1) Cleanse Left/Right foot wounds with normal saline pat dry ,skin prep periwound 2) Apply adaptic gauze cut to fit over closed sutured surgical incisions change daily. 3) Apply Santyl to R lateral full thickness wound base then pack lightly with moistened gauze cover with dry dressing change daily. 4) Apply Optifoam basic cut to fit wound base to R plantar ulcer and L plantar ulcer cover with dry dressing secure with rolled gauze/tape change every 3 days or as needed for exudate management. 5) Follow up with inpatient wound care in 5 days for reassessment for Wound VAC Additional Information: Patient seen on today by designer writer and Roxie CARL for wound vac placement to R lateral foot.Patient alert and oriented x3 in bed .Dressings removed from bilateral lower extremities all areas cleansed with normal saline pat dry.Right lateral foot has intact sutures with a full thickness wound measuring 4.3cm x 2.4cm x slough Wound base is 100% yellow/moreno loosely adhered slough. wound edges are jagged with sutures present.Moderate serosanguineous drainage noted with no odor present.R plantar has a healing diabetic ulcer measuring ~2.5cm x ~ 5.0cm x <0.1cm wound base is 100% newly granulated tissue with scant bloody drainage and no odor.Wound edges are well defined and even with wound base.L plantar has healing diabetic ulcer measuring ~1.5cm x ~1.5cm x 0.1cm wound base is 100% beefy red granulated tissue with scant bloody drainage noted with no odor .Wound edges are well defined and even with wound base.Optifoam basic applied to plantar ulcers and covered with dry dressing.Closed surgical sutured incisions covered with adaptic gauze and dry dressing.Right lateral full thick ness wound moistened gauze applied to wound base and covered with dry dressing till Santyl available.Bilateral lower extremities wrapped in rolled gauze signed and dated.Patient tolerated wound care well.Wound nurse will follow up with patient in 5 days for reevaluation of Wound Vac placement. Deb Vizcarra [facility] Oct 21, 2017 11:27
[2017-10-21] MEDS: MORPHINE SULFATE 8 MG/ML INJ IV PUSH PRN ×3 (11:37→23:13)
[2017-10-21 12:00] VITALS: BP 104/77; PULSE 99; RESP 20; TEMP 98.6; O2SAT 89
--- NOTE | 2017-10-21 13:44 | HHI.PR ---
Subjective Remarks Follow up diabetic foot infection, sepsis, pneumonia. Patient reports some dyspnea "because of the hole they put in my lung yesterday. No chest pain. Objective Vitals Vital Signs Date Time Temp Pulse Resp B/P (MAP) Pulse Ox O2 Delivery O2 Flow Rate FiO2 10/21/17 12:00 98.6 99 20 104/77 (86) 89 10/21/17 08:00 99.3 104 20 156/85 (108) 90 10/21/17 07:00 Nasal Cannula 2.00 10/21/17 04:10 98.9 98 16 136/65 (88) 93 10/20/17 18:33 99.7 105 16 155/89 (111) 90 10/20/17 16:11 98.8 97 18 142/80 (100) 98 10/20/17 16:00 Room Air 10/20/17 15:08 93 21 154/82 (106) 92 10/20/17 14:53 99.3 95 20 150/83 (105) 94 I/O 10/20/17 10/20/17 10/20/17 10/21/17 10/21/17 10/21/17 07:00 15:00 23:00 07:00 15:00 23:00 Intake Total 660 ml 240 ml Output Total 1000 ml 1000 ml 1400 ml Balance -340 ml -760 ml -1400 ml Intake Oral 360 ml 240 ml IV Total 300 ml Output Urine Total 1000 ml 1000 ml 1400 ml # Bowel Movements 0 Imaging Last Impressions Thoracentesis Ultrasound 10/20/17 0600 Signed Impressions: Service Date/Time: Friday, October 20, 2017 13:03 - CONCLUSION: Uncomplicated ultrasound guided thoracentesis. Smooth Saucedo MD Chest X-Ray 10/20/17 0000 Signed Impressions: Service Date/Time: Friday, October 20, 2017 14:37 - CONCLUSION: 1. There is no evidence of pneumothorax. Chetan Escobedo MD Chest Ultrasound 10/17/17 0000 Signed Impressions: Service Date/Time: Tuesday, October 17, 2017 20:24 - CONCLUSION: A moderate to large right pleural effusion is confirmed sonographically and marked for thoracentesis. Hector Pierre MD Chest CT 10/16/17 0000 Signed Impressions: Service Date/Time: October 20:14 - CONCLUSION: Moderate-sized bilateral pleural effusions with adjacent compressive atelectasis and/or pneumonia. Scattered increased interstitial infiltrates within the perihilar regions and upper lobes bilaterally raising the possibility of pulmonary vascular congestion. Cardiomegaly and coronary artery calcifications are noted. Mild pretracheal and AP window mediastinal lymphadenopathy which is nonspecific. Degenerative changes and mild scoliosis of the thoracic spine. Hector Pierre MD Aspiration 10/16/17 0000 Signed Impressions: Service Date/Time: October 15:48 - CONCLUSION: Uncomplicated aspiration as above. Chetan Escobedo MD Abdomen/Pelvis CT 10/16/17 0000 Signed Impressions: Service Date/Time: October 20:14 - CONCLUSION: 1. Moderate-sized bilateral pleural effusions with adjacent consolidations consistent with atelectasis and/or pneumonia. 2. Tiny calcified nonobstructing bilateral renal calculi. 3. Mild hepatosplenomegaly. 4. Uncomplicated colonic diverticulosis. 5. Minimal free fluid within the pelvis. 6. Streakiness and fluid within the bilateral retroperitoneum inferior to the kidneys and extending into the presacral region. 7. Degenerative changes and scoliosis of the thoracolumbar spine. Hector Pierre MD Knee X-Ray 10/15/17 0000 Signed Impressions: Service Date/Time: Sunday, October 15, 2017 15:26 - CONCLUSION: Large joint effusion otherwise negative. Tu Lim MD [facility] Carotid Artery Ultrasound 10/13/17 0000 Signed Impressions: Service Date/Time: Friday, October 13, 2017 16:12 - CONCLUSION: No evidence of flow-limiting carotid stenosis. Wm Riley MD Aorta w/Runoff CTA 10/13/17 0000 Signed Impressions: Service Date/Time: Friday, October 13, 2017 22:41 - CONCLUSION: 1. No aortic occlusive disease. 2. No significant iliac inflow stenosis. 3. No significant outflow stenosis. 4. Diffuse bilateral runoff disease with heavily calcified tibial arteries and significant venous contamination precluding patency evaluation beyond the very proximal calf. 5. Small to moderate bilateral pleural effusions with associated airspace disease at the lung bases, presumably atelectasis. 6. Trace free fluid in the deep pelvis. 7. Ancillary findings include hepatic steatosis, nonobstructing punctate calyceal calculus in the inferior pole of the left kidney and small suprapatellar right joint effusion. Luplilo Webster MD Foot MRI 10/12/17 0000 Signed Impressions: Service Date/Time: Thursday, October 12, 2017 08:31 - CONCLUSION: 1. No areas of suspected osteomyelitis. 2. Superficial soft tissue swelling over the third and fourth metatarsals. There is also some edema within the plantar musculature. Wm Dupree MD Ankle MRI 10/11/17 0000 Signed Impressions: Service Date/Time: Wednesday, October 11, 2017 09:41 - CONCLUSION: 1. No definite areas of osteomyelitis. There is some edema within the lateral cuboid adjacent to the suspected surgical defect which is likely reactive. T1 signal is maintained. 2. Multiple areas of focal edema within the midfoot mainly related to the subarticular regions likely related to underlying arthritic change. 3. The patient appears to be status post resection of the fifth metatarsal with post surgical change at the lateral hind and midfoot and a small focus of air seen adjacent to the calcaneus. Wm Dupree MD Foot X-Ray 10/07/17 0000 Signed Impressions: Service Date/Time: Saturday, October 07, 2017 13:15 - CONCLUSION: 1. Prominent soft tissue swelling overlying the fifth proximal metatarsal at the MTP joint. No definitive erosive bony change to suggest osteomyelitis. Lupillo Webster MD Objective Remarks General: No acute distress. Heart: Regular rate and rhythm. No murmur. Lungs: Clear to auscultation bilaterally. No wheezes, rales, or rhonchi. Breathing is nonlabored. Abdomen: Soft, nontender, nondistended. Extremities: No lower extremity edema. Right foot bandaged. Psych: Alert and oriented. Procedures s/p Right foot and ankle incision drainage, 5th metatarsal resection, 5th digit amputation 10/08/17 Urinary Catheter: No Vascular Central Line Catheter: No A/P Problem List: (1) Osteomyelitis of foot ICD Code: M86.9 - Osteomyelitis, unspecified (2) Leukocytosis ICD Code: D72.829 - Elevated white blood cell count, unspecified (3) Dehydration with hyponatremia ICD Code: E87.1 - Hypo-osmolality and hyponatremia (4) Acute kidney injury ICD Code: N17.9 - Acute kidney failure, unspecified (5) Sepsis ICD Code: A41.9 - Sepsis, unspecified organism Status: Acute (6) Diabetic foot ulcer ICD Code: E11.621 - Type 2 diabetes mellitus with foot ulcer; L97.509 - Non- pressure chronic ulcer of other part of unspecified foot with unspecified severity Status: Acute (7) Acute renal failure superimposed on stage 3 chronic kidney disease ICD Code: N17.9 - Acute kidney failure, unspecified; N18.3 - Chronic kidney disease, stage 3 (moderate) (8) Bacteremia due to Gram-positive bacteria ICD Code: R78.81 - Bacteremia (9) Postoperative anemia ICD Code: D64.9 - Anemia, unspecified Assessment and Plan 1. Sepsis: Secondary to diabetic foot infection, bacteremia, right foot osteomyelitis: Appreciate infectious disease recommendations. Continue antibiotics (Rocephin, Levaquin, Zyvox). Wound culture growing staph and strep not A/B/D. 2. Right foot osteomyelitis: Appreciate podiatry recommendations. Status post incision and drainage, fifth metatarsal resection, fifth digit amputation on . Podiatry is recommending IV antibiotics on discharge. Final antibiotic recommendations per infectious disease. Continue wound care. 3. Right knee effusion: Continue antibiotics. Appreciate orthopedic surgery recommendations. No surgical intervention planned at this point. 4. Bilateral pleural effusion: Appreciate pulmonology recommendations. Status post right-sided thoracentesis. 5. Peripheral vascular disease: Appreciate vascular surgery recommendations. Per vascular surgery, no surgical intervention is planned. 6. Postoperative anemia: Received transfusion of 2 units PRBCs. Monitor H&H. 7. Diabetes mellitus type 2: Continue Levemir. Monitor Accu-Cheks and cover with sliding scale insulin. Continue preprandial insulin as well. 8. Acute kidney injury superimposed on chronic kidney disease stage III: Creatinine improving. Avoid nephrotoxins. 9. Hypokalemia: Improved. 10. DVT prophylaxis: Heparin. Problem Qualifiers (1) Sepsis: Qualified Codes: A41.9 - Sepsis, unspecified organism (2) Diabetic foot ulcer: Qualified Codes: E10.621 - Type 1 diabetes mellitus with foot ulcer; L97.419 - Non-pressure chronic ulcer of right heel and midfoot with unspecified severity Siddharth Lane MD Oct 21, 2017 13:44
[2017-10-21] MEDS: cefTRIAXone INJ 2,000 MG in SODIUM CHLORIDE 0.9% INJ 100 ML IV SCH (13:55)
--- NOTE | 2017-10-21 15:47 | PD.POD ---
Subjective Pain score: 3 Past Med/Surg/Social History Past Medical History Endocrine: REPORTS HX OF: Diabetes mellitus Genitourinary: REPORTS HX OF: Other history (Kidney stones ) Past Surgical History Musculoskeletal: REPORTS HX OF: Other musculoskeletal srg (Right foot 5th metatarsal I&D) Social History Smoking Status: Former Smoker Objective Vital Signs Vital Signs Date Time Temp Pulse Resp B/P (MAP) Pulse Ox O2 Delivery O2 Flow Rate FiO2 10/21/17 12:00 98.6 99 20 104/77 (86) 89 10/21/17 08:00 99.3 104 20 156/85 (108) 90 10/21/17 07:00 Nasal Cannula 2.00 10/21/17 04:10 98.9 98 16 136/65 (88) 93 10/20/17 18:33 99.7 105 16 155/89 (111) 90 10/20/17 16:11 98.8 97 18 142/80 (100) 98 10/20/17 16:00 Room Air Coded Allergies: No Known Allergies (Unverified Adverse Reaction, Unknown, 09/15/17) Uncoded Allergies: ethiopian dressing (Allergy, Severe, Anaphylaxis, 10/07/17) Assessment & Plan A/P Discussed patient with wound care today. Santyl added to wound dressing and will plan to debride bedside in a few days after santyl has taken some effect. Heidi Handy DPM Oct 21, 2017 15:47
[2017-10-21 16:00] VITALS: BP 134/65; PULSE 100; RESP 20; TEMP 98.9; O2SAT 95
--- NOTE | 2017-10-21 18:50 | HHI.PR ---
Subjective Remarks 57 YOWm with DM,Diabetic foot ulcer,Pl eff, Lung infilt US chest Mod to large Rt Pl eff no Fever Denies SOB Had TC, 1100 cc fluid removed No new complaint Breathiing better His mother at BS Objective Vital Signs Vital Signs Date Time Temp Pulse Resp B/P (MAP) Pulse Ox O2 Delivery O2 Flow Rate FiO2 10/21/17 16:00 98.9 100 20 134/65 (88) 95 10/21/17 12:00 98.6 99 20 104/77 (86) 89 10/21/17 08:00 99.3 104 20 156/85 (108) 90 10/21/17 07:00 Nasal Cannula 2.00 10/21/17 04:10 98.9 98 16 136/65 (88) 93 I/O 10/20/17 10/20/17 10/20/17 10/21/17 10/21/17 10/21/17 07:00 15:00 23:00 07:00 15:00 23:00 Intake Total 660 ml 240 ml 480 ml Output Total 1000 ml 1000 ml 1900 ml 400 ml Balance -340 ml -760 ml -1420 ml -400 ml Intake Oral 360 ml 240 ml 480 ml IV Total 300 ml Output Urine Total 1000 ml 1000 ml 1900 ml 400 ml # Bowel Movements 0 1 Objective Remarks GENERAL: WBWN WM,NAD SKIN: Warm and dry. HEAD: Normocephalic. EYES: No scleral icterus. No injection or drainage. NECK: Supple, trachea midline. No JVD or lymphadenopathy. CARDIOVASCULAR: Regular rate and rhythm without murmurs, gallops, or rubs. RESPIRATORY: Breath sounds equal bilaterally. No accessory muscle use. Decreased BS at Bases GASTROINTESTINAL: Abdomen soft, non-tender, nondistended. MUSCULOSKELETAL: No cyanosis, or edema. Foot ulcer, VAC device BACK: Nontender without obvious deformity. No CVA tenderness. A/P Assessment and Plan Bilat Pl effusion Lung infilt/ septic emboli DM Foot Ulcer PLAN: Check pl fluid results Cont Abx Stable on RA Cytology pending Curtis Liao MD Oct 21, 2017 18:50
[2017-10-21 20:00] VITALS: BP_SYST 126; BP_SYST 154; BP_DIAS 76; BP_DIAS 92; PULSE 104; PULSE 98; RESP 18; RESP 20; TEMP 101.2; TEMP 95.8; O2SAT 88; O2SAT 93
[2017-10-21] MEDS: INSULIN DETEMIR 100 UNITS/ML VIAL SQ SCH (20:58)
[2017-10-21] MEDS: SODIUM CHLORIDE 0.9% FLUSH 10 ML FLUSH IV FLUSH PRN (23:13)
[2017-10-21] MEDS: LACTATED RINGER'S 1000 ML INJ 1,000 ML IV SCH (23:13)
[2017-10-22 00:02] VITALS: BP 149/86; PULSE 98; RESP 17; TEMP 98.8; O2SAT 94
[2017-10-22] MEDS: LINEZOLID 600 MG PREMIX 300 ML IV SCH ×2 (04:25→17:15)
[2017-10-22] MEDS: ACETAMINOPHEN/HYDROcodone 325 MG/7.5 MG TAB PO PRN ×3 (04:25→21:17)
[2017-10-22] MEDS: HEPARIN SODIUM - SQ 10,000 UNITS/ML VIAL SQ SCH ×3 (04:26→21:17)
[2017-10-22 05:31] VITALS: BP 139/78; PULSE 110; RESP 17; TEMP 100.7; O2SAT 94
[2017-10-22] MEDS: MORPHINE SULFATE 8 MG/ML INJ IV PUSH PRN ×4 (06:29→22:30)
[2017-10-22] MEDS: INSULIN ASPART 1,000 UNITS/10 ML VIAL SQ SCH ×4 (08:00→19:08)
[2017-10-22] MEDS: INSULIN ASPART SUPPLEMENTAL SCALE SQ SCH ×4 (08:00→21:00)
[2017-10-22 08:05] VITALS: BP 147/87; PULSE 96; RESP 18; TEMP 99.4; O2SAT 94
[2017-10-22 09:19] LABS: AUTOMATED NEUTROPHIL # 6.5 TH/MM3 (1.8-7.7); BASOPHIL # 0.1 TH/MM3 (0-0.2); BASOPHIL % 1.2 % (0.0-2.0); EOSINOPHIL # 0.1 TH/MM3 (0-0.4); EOSINOPHIL % 1.2 % (0.0-4.0); HEMATOCRIT 27.9 % (39.0-51.0); HEMOGLOBIN 9.5 GM/DL (13.0-17.0); LYMPH % 18.7 % (9.0-44.0); LYMPHOCYTE # 1.7 TH/MM3 (1.0-4.8); MEAN CELL VOLUME 82.5 FL (80.0-100.0); MEAN CORPUSCULAR HEMOGLOBIN 28.1 PG (27.0-34.0); MEAN PLATELET VOLUME 7.1 FL (7.0-11.0); MONO % 8.1 % (0.0-8.0); MONOCYTE # 0.8 TH/MM3 (0-0.9); NEUT % 70.8 % (16.0-70.0); PLATELET COUNT 356 TH/MM3 (150-450); RED BLOOD COUNT 3.39 MIL/MM3 (4.50-5.90); RED CELL DISTRIBUTION WIDTH 14.4 % (11.6-17.2); WHITE BLOOD COUNT 9.3 TH/MM3 (4.0-11.0)
[2017-10-22 09:35] LABS: BICARBONATE 29.9 MEQ/L (21.0-32.0); CALCIUM 8.5 MG/DL (8.5-10.1); CREATININE 1.02 MG/DL (0.60-1.30)
--- NOTE | 2017-10-22 09:46 | RADRPT ---
EXAM DATE/TIME: 10/22/2017 09:07 [facility] COMPARISON: CHEST EXPIRATION ONLY, October 20, 2017, 14:37. INDICATIONS : Evaluate for pneumonia. MEDICAL HISTORY : Diabetes mellitus type 2. Renal calculi. SURGICAL HISTORY : None. ENCOUNTER: Subsequent ACUITY: 2 weeks PAIN SCORE: 0/10 LOCATION: Bilateral chest FINDINGS: The examination demonstrates bilateral infiltrate and small bilateral effusions. This would be concer zay for pneumonia. The appearance of the parenchyma has worsened when compared to previous dated 01/02. The heart is mildly enlarged. The osseous structures are intact. CONCLUSION: 1. Bilateral infiltrates and effusion. The exam has worsen when compared to previous dated 10/20/17. Raghavendra Lim MD on October 22, 2017 at 9:44 Board Certified Radiologist. This report was verified electronically.
[2017-10-22] MEDS: SODIUM CHLORIDE 0.9% FLUSH 10 ML FLUSH IV FLUSH SCH ×2 (09:50→21:18)
[2017-10-22] MEDS: LEVOFLOXACIN 500 MG TAB PO SCH (09:50)
[2017-10-22] MEDS: LACTOBACILLUS ACIDOPHILUS TAB PO SCH ×2 (09:50→21:17)
--- NOTE | 2017-10-22 11:09 | HHI.PR ---
Subjective Remarks Follow up pneumonia, diabetic foot infection. Patient reporting discomfort in the right foot. "The bandage is too tight". No dyspnea, chest pain. Objective Vitals Vital Signs Date Time Temp Pulse Resp B/P (MAP) Pulse Ox O2 Delivery O2 Flow Rate FiO2 10/22/17 08:05 99.4 96 18 147/87 (107) 94 10/22/17 05:43 Nasal Cannula 2.00 10/22/17 05:31 100.7 110 17 139/78 (98) 94 10/22/17 04:00 Nasal Cannula 2.00 10/22/17 00:02 98.8 98 17 149/86 (107) 94 10/21/17 20:00 Nasal Cannula 2.00 10/21/17 20:00 101.2 104 18 154/92 (112) 93 10/21/17 20:00 Nasal Cannula 2.00 10/21/17 16:00 98.9 100 20 134/65 (88) 95 10/21/17 12:00 98.6 99 20 104/77 (86) 89 I/O 10/21/17 10/21/17 10/21/17 10/22/17 10/22/17 10/22/17 07:00 15:00 23:00 07:00 15:00 23:00 Intake Total 480 ml 240 ml Output Total 1900 ml 400 ml 2050 ml Balance -1420 ml -400 ml -1810 ml Intake Oral 480 ml 240 ml Output Urine Total 1900 ml 400 ml 2050 ml # Bowel Movements 1 1 Result Diagram: 10/22/17 0834 10/22/17 0834 Imaging Last Impressions Chest X-Ray 10/22/17 0000 Signed Impressions: Service Date/Time: Sunday, October 22, 2017 09:07 - CONCLUSION: 1. Bilateral infiltrates and effusion. The exam has worsen when compared to previous dated 10/20/17. Raghavendra Lim MD Thoracentesis Ultrasound 10/20/17 0600 Signed Impressions: Service Date/Time: Friday, October 20, 2017 13:03 - CONCLUSION: Uncomplicated ultrasound guided thoracentesis. Smooth Saucedo MD Chest Ultrasound 10/17/17 0000 Signed Impressions: Service Date/Time: Tuesday, October 17, 2017 20:24 - CONCLUSION: A moderate to large right pleural effusion is confirmed sonographically and marked for thoracentesis. Hector Pierre MD Chest CT 10/16/17 0000 Signed Impressions: Service Date/Time: October 20:14 - CONCLUSION: Moderate-sized bilateral pleural effusions with adjacent compressive atelectasis and/or pneumonia. Scattered increased interstitial infiltrates within the perihilar regions and upper lobes bilaterally raising the possibility of pulmonary vascular congestion. Cardiomegaly and coronary artery calcifications are noted. Mild pretracheal and AP window mediastinal lymphadenopathy which is nonspecific. Degenerative changes and mild scoliosis of the thoracic spine. Hector Pierre MD Aspiration 10/16/17 0000 Signed Impressions: Service Date/Time: October 15:48 - CONCLUSION: Uncomplicated aspiration as above. Chetan Escobedo MD Abdomen/Pelvis CT 10/16/17 0000 Signed Impressions: Service Date/Time: October 20:14 - CONCLUSION: 1. Moderate-sized bilateral pleural effusions with adjacent consolidations consistent with atelectasis and/or pneumonia. 2. Tiny calcified nonobstructing bilateral renal calculi. 3. Mild hepatosplenomegaly. 4. Uncomplicated colonic diverticulosis. 5. Minimal free fluid within the pelvis. 6. Streakiness and fluid within the bilateral retroperitoneum inferior to the kidneys and extending into the presacral region. 7. Degenerative changes and scoliosis of the thoracolumbar spine. Hector Pierre MD Knee X-Ray 10/15/17 0000 Signed Impressions: Service Date/Time: Sunday, October 15, 2017 15:26 - CONCLUSION: Large joint effusion otherwise negative. Tu Lim MD FACR Carotid Artery Ultrasound 10/13/17 0000 Signed Impressions: Service Date/Time: Friday, October 13, 2017 16:12 - CONCLUSION: No evidence of flow-limiting carotid stenosis. Wm Riley MD Aorta w/Runoff CTA 10/13/17 0000 Signed Impressions: Service Date/Time: Friday, October 13, 2017 22:41 - CONCLUSION: 1. No aortic occlusive disease. 2. No significant iliac inflow stenosis. 3. No significant outflow stenosis. 4. Diffuse bilateral runoff disease with heavily calcified tibial arteries and significant venous contamination precluding patency evaluation beyond the very proximal calf. 5. Small to moderate bilateral pleural effusions with associated airspace disease at the lung bases, presumably atelectasis. 6. Trace free fluid in the deep pelvis. 7. Ancillary findings include hepatic steatosis, nonobstructing punctate calyceal calculus in the inferior pole of the left kidney and small suprapatellar right joint effusion. Lupillo Webster MD Foot MRI 10/12/17 0000 Signed Impressions: Service Date/Time: Thursday, October 12, 2017 08:31 - CONCLUSION: 1. No areas of suspected osteomyelitis. 2. Superficial soft tissue swelling over the third and fourth metatarsals. There is also some edema within the plantar musculature. Wm Dupree MD Ankle MRI 10/11/17 0000 Signed Impressions: Service Date/Time: Wednesday, October 11, 2017 09:41 - CONCLUSION: 1. No definite areas of osteomyelitis. There is some edema within the lateral cuboid adjacent to the suspected surgical defect which is likely reactive. T1 signal is maintained. 2. Multiple areas of focal edema within the midfoot mainly related to the subarticular regions likely related to underlying arthritic change. 3. The patient appears to be status post resection of the fifth metatarsal with post surgical change at the lateral hind and midfoot and a small focus of air seen adjacent to the calcaneus. Wm Dupree MD Foot X-Ray 10/07/17 0000 Signed Impressions: Service Date/Time: Saturday, October 07, 2017 13:15 - CONCLUSION: 1. Prominent soft tissue swelling overlying the fifth proximal metatarsal at the MTP joint. No definitive erosive bony change to suggest osteomyelitis. Lupillo Webster MD Objective Remarks General: No acute distress. Heart: Regular rate and rhythm. No murmur. Lungs: Clear to auscultation bilaterally. No wheezes, rales, or rhonchi. Breathing is nonlabored. Abdomen: Soft, nontender, nondistended. Extremities: No lower extremity edema. Wounds bandaged on both feet. Psych: Alert and oriented. Procedures s/p Right foot and ankle incision drainage, 5th metatarsal resection, 5th digit amputation 10/08/17 Urinary Catheter: No Vascular Central Line Catheter: No A/P Problem List: (1) Osteomyelitis of foot ICD Code: M86.9 - Osteomyelitis, unspecified (2) Leukocytosis ICD Code: D72.829 - Elevated white blood cell count, unspecified (3) Dehydration with hyponatremia ICD Code: E87.1 - Hypo-osmolality and hyponatremia (4) Acute kidney injury ICD Code: N17.9 - Acute kidney failure, unspecified (5) Sepsis ICD Code: A41.9 - Sepsis, unspecified organism Status: Acute (6) Diabetic foot ulcer ICD Code: E11.621 - Type 2 diabetes mellitus with foot ulcer; L97.509 - Non- pressure chronic ulcer of other part of unspecified foot with unspecified severity Status: Acute (7) Acute renal failure superimposed on stage 3 chronic kidney disease ICD Code: N17.9 - Acute kidney failure, unspecified; N18.3 - Chronic kidney disease, stage 3 (moderate) (8) Bacteremia due to Gram-positive bacteria ICD Code: R78.81 - Bacteremia (9) Postoperative anemia ICD Code: D64.9 - Anemia, unspecified Assessment and Plan 1. Sepsis: Secondary to diabetic foot infection, bacteremia, right foot osteomyelitis: Appreciate infectious disease recommendations. Continue antibiotics (Rocephin, Levaquin, Zyvox). Wound culture growing staph and strep not A/B/D. Still having fever. 2. Right foot osteomyelitis: Appreciate podiatry recommendations. Status post incision and drainage, fifth metatarsal resection, fifth digit amputation on . Podiatry is recommending IV antibiotics on discharge. Final antibiotic recommendations per infectious disease. Continue wound care. 3. Right knee effusion: Continue antibiotics. Appreciate orthopedic surgery recommendations. No surgical intervention planned at this point. 4. Bilateral pleural effusion: Appreciate pulmonology recommendations. Status post right-sided thoracentesis. Cytology pending. 5. Peripheral vascular disease: Appreciate vascular surgery recommendations. Per vascular surgery, no surgical intervention is planned. 6. Postoperative anemia: Received transfusion of 2 units PRBCs. Monitor H&H. 7. Diabetes mellitus type 2: Continue Levemir. Monitor Accu-Cheks and cover with sliding scale insulin. Continue preprandial insulin as well. 8. Acute kidney injury superimposed on chronic kidney disease stage III: Creatinine improving. Avoid nephrotoxins. 9. Hypokalemia: Improved. 10. DVT prophylaxis: Heparin. Discharge Planning Pending further clinical improvement. Problem Qualifiers (1) Sepsis: Qualified Codes: A41.9 - Sepsis, unspecified organism (2) Diabetic foot ulcer: Qualified Codes: E10.621 - Type 1 diabetes mellitus with foot ulcer; L97.419 - Non-pressure chronic ulcer of right heel and midfoot with unspecified severity Siddharth Lane MD Oct 22, 2017 11:09
[2017-10-22] MEDS: COLLAGENASE OINT 30 GM TUBE TOPICAL SCH (12:00)
[2017-10-22 12:05] VITALS: BP 156/82; PULSE 103; RESP 18; TEMP 100; O2SAT 92
[2017-10-22 12:59] LABS: AMYLASE BODY FLUID 11 U/L; AMYLASE BODY FLUID TYPE PLEURAL
[2017-10-22] MEDS: ACETAMINOPHEN 500 MG CPLT PO PRN (13:38)
[2017-10-22] MEDS: cefTRIAXone INJ 2,000 MG in SODIUM CHLORIDE 0.9% INJ 100 ML IV SCH (13:38)
[2017-10-22] MEDS: MORPHINE SULFATE 4 MG/ML INJ IV PUSH PRN (15:23)
[2017-10-22 16:05] VITALS: BP 134/76; PULSE 94; RESP 18; TEMP 98.2; O2SAT 90
[2017-10-22] MEDS: LACTATED RINGER'S 1000 ML INJ 1,000 ML IV SCH (17:15)
--- NOTE | 2017-10-22 19:37 | HHI.PR ---
Subjective Remarks 57 YOWm with DM,Diabetic foot ulcer,Pl eff, Lung infilt US chest Mod to large Rt Pl eff no Fever No new complaint Breathiing better Objective Vital Signs Vital Signs Date Time Temp Pulse Resp B/P (MAP) Pulse Ox O2 Delivery O2 Flow Rate FiO2 10/22/17 16:05 98.2 94 18 134/76 (95) 90 10/22/17 12:05 100.0 103 18 156/82 (106) 92 10/22/17 08:05 99.4 96 18 147/87 (107) 94 10/22/17 05:43 Nasal Cannula 2.00 10/22/17 05:31 100.7 110 17 139/78 (98) 94 10/22/17 04:00 Nasal Cannula 2.00 10/22/17 00:02 98.8 98 17 149/86 (107) 94 10/21/17 20:00 Nasal Cannula 2.00 10/21/17 20:00 101.2 104 18 154/92 (112) 93 10/21/17 20:00 Nasal Cannula 2.00 I/O 10/21/17 10/21/17 10/21/17 10/22/17 10/22/17 10/22/17 07:00 15:00 23:00 07:00 15:00 23:00 Intake Total 480 ml 240 ml 720 ml Output Total 1900 ml 400 ml 2050 ml 1000 ml Balance -1420 ml -400 ml -1810 ml -280 ml Intake Oral 480 ml 240 ml 720 ml Output Urine Total 1900 ml 400 ml 2050 ml 1000 ml # Bowel Movements 1 1 1 Result Diagram: 10/22/17 0834 10/22/17 0834 Objective Remarks GENERAL: WBWN WM,NAD SKIN: Warm and dry. HEAD: Normocephalic. EYES: No scleral icterus. No injection or drainage. NECK: Supple, trachea midline. No JVD or lymphadenopathy. CARDIOVASCULAR: Regular rate and rhythm without murmurs, gallops, or rubs. RESPIRATORY: Breath sounds equal bilaterally. No accessory muscle use. Decreased BS at Bases GASTROINTESTINAL: Abdomen soft, non-tender, nondistended. MUSCULOSKELETAL: No cyanosis, or edema. Foot ulcer, VAC device BACK: Nontender without obvious deformity. No CVA tenderness. A/P Assessment and Plan Bilat Pl effusion Lung infilt/ septic emboli DM Foot Ulcer PLAN: Check pl fluid results Cont Abx Stable on RA DW pt and his at BS Curtis Liao MD Oct 22, 2017 19:37
[2017-10-22] MEDS: INSULIN DETEMIR 100 UNITS/ML VIAL SQ SCH (21:18)
[2017-10-22 23:53] VITALS: BP 115/61; PULSE 99; RESP 18; TEMP 98.5; O2SAT 92
[2017-10-23 04:00] VITALS: BP 153/89; PULSE 109; RESP 18; TEMP 99.9; O2SAT 92
[2017-10-23] MEDS: ACETAMINOPHEN/HYDROcodone 325 MG/7.5 MG TAB PO PRN ×3 (04:38→21:30)
[2017-10-23] MEDS: LINEZOLID 600 MG PREMIX 300 ML IV SCH (04:38)
[2017-10-23] MEDS: HEPARIN SODIUM - SQ 10,000 UNITS/ML VIAL SQ SCH ×3 (04:39→21:32)
[2017-10-23 05:53] LABS: AUTOMATED NEUTROPHIL # 4.8 TH/MM3 (1.8-7.7); BASOPHIL # 0.2 TH/MM3 (0-0.2); BASOPHIL % 2.1 % (0.0-2.0); EOSINOPHIL # 0.2 TH/MM3 (0-0.4); HEMATOCRIT 26.3 % (39.0-51.0); HEMOGLOBIN 9.1 GM/DL (13.0-17.0); LYMPH % 22.7 % (9.0-44.0); LYMPHOCYTE # 1.8 TH/MM3 (1.0-4.8); MEAN CELL VOLUME 81.4 FL (80.0-100.0); MEAN CORPUSCULAR HEMOGLOBIN 28.1 PG (27.0-34.0); MEAN CORPUSCULAR HGB CONC 34.6 % (32.0-36.0); MEAN PLATELET VOLUME 7.3 FL (7.0-11.0); MONO % 11.2 % (0.0-8.0); MONOCYTE # 0.9 TH/MM3 (0-0.9); PLATELET COUNT 264 TH/MM3 (150-450); RED BLOOD COUNT 3.23 MIL/MM3 (4.50-5.90); RED CELL DISTRIBUTION WIDTH 14.7 % (11.6-17.2); WHITE BLOOD COUNT 7.8 TH/MM3 (4.0-11.0)
[2017-10-23 06:12] LABS: BICARBONATE 30.8 MEQ/L (21.0-32.0); CALCIUM 8.1 MG/DL (8.5-10.1); CREATININE 1.07 MG/DL (0.60-1.30)
[2017-10-23] MEDS: MORPHINE SULFATE 8 MG/ML INJ IV PUSH PRN ×2 (06:16→14:09)
[2017-10-23] MEDS: COLLAGENASE OINT 30 GM TUBE TOPICAL SCH (06:17)
[2017-10-23] MEDS: LEVOFLOXACIN 500 MG TAB PO SCH (08:43)
[2017-10-23] MEDS: INSULIN ASPART SUPPLEMENTAL SCALE SQ SCH ×4 (08:43→21:00)
[2017-10-23] MEDS: LACTOBACILLUS ACIDOPHILUS TAB PO SCH ×2 (08:43→21:31)
[2017-10-23] MEDS: SODIUM CHLORIDE 0.9% FLUSH 10 ML FLUSH IV FLUSH SCH ×2 (08:43→21:31)
[2017-10-23] MEDS: INSULIN ASPART 1,000 UNITS/10 ML VIAL SQ SCH ×4 (08:44→21:34)
[2017-10-23 09:00] VITALS: BP 175/86; PULSE 112; RESP 18; TEMP 99.7; O2SAT 92
[2017-10-23 12:00] VITALS: BP 139/74; PULSE 107; RESP 20; TEMP 100.7; O2SAT 91
--- NOTE | 2017-10-23 13:03 | HHI.PR ---
Subjective Remarks Follow-up diabetic foot infection, fever. Patient reporting pain in his foot. States that the bandage was replaced twice yesterday. No dyspnea, chest pain. Objective Vitals Vital Signs Date Time Temp Pulse Resp B/P (MAP) Pulse Ox O2 Delivery O2 Flow Rate FiO2 10/23/17 09:00 99.7 112 18 175/86 (115) 92 10/23/17 04:00 99.9 109 18 153/89 (110) 92 10/22/17 23:53 98.5 99 18 115/61 (79) 92 10/22/17 21:16 91 Nasal Cannula 2.00 10/22/17 21:15 86 Room Air 10/22/17 20:00 Nasal Cannula 2.00 10/22/17 16:05 98.2 94 18 134/76 (95) 90 10/22/17 16:00 Nasal Cannula 2.00 I/O 10/22/17 10/22/17 10/22/17 10/23/17 10/23/17 10/23/17 06:59 14:59 22:59 06:59 14:59 22:59 Intake Total 240 ml 720 ml 240 ml Output Total 2050 ml 1000 ml 275 ml Balance -1810 ml -280 ml -35 ml Intake Oral 240 ml 720 ml 240 ml Output Urine Total 2050 ml 1000 ml 275 ml # Bowel Movements 1 1 0 Result Diagram: 10/23/17 0340 10/23/17 0340 Objective Remarks General: No acute distress. Heart: Regular rate and rhythm. No murmur. Lungs: Clear to auscultation bilaterally. No wheezes, rales, or rhonchi. Breathing is nonlabored. Abdomen: Soft, nontender, nondistended. Extremities: No lower extremity edema. Wounds bandaged on both feet. Psych: Alert and oriented. Procedures s/p Right foot and ankle incision drainage, 5th metatarsal resection, 5th digit amputation 10/08/17 Urinary Catheter: No Vascular Central Line Catheter: No A/P Problem List: (1) Osteomyelitis of foot ICD Code: M86.9 - Osteomyelitis, unspecified (2) Leukocytosis ICD Code: D72.829 - Elevated white blood cell count, unspecified (3) Dehydration with hyponatremia ICD Code: E87.1 - Hypo-osmolality and hyponatremia (4) Acute kidney injury ICD Code: N17.9 - Acute kidney failure, unspecified (5) Sepsis ICD Code: A41.9 - Sepsis, unspecified organism Status: Acute (6) Diabetic foot ulcer ICD Code: E11.621 - Type 2 diabetes mellitus with foot ulcer; L97.509 - Non- pressure chronic ulcer of other part of unspecified foot with unspecified severity Status: Acute (7) Acute renal failure superimposed on stage 3 chronic kidney disease ICD Code: N17.9 - Acute kidney failure, unspecified; N18.3 - Chronic kidney disease, stage 3 (moderate) (8) Bacteremia due to Gram-positive bacteria ICD Code: R78.81 - Bacteremia (9) Postoperative anemia ICD Code: D64.9 - Anemia, unspecified Assessment and Plan 1. Sepsis: Secondary to diabetic foot infection, bacteremia, right foot osteomyelitis: Appreciate infectious disease recommendations. Continue antibiotics (Rocephin, Levaquin, Zyvox). Wound culture growing staph and strep not A/B/D. Still having fever. Discussed with Dr. Quinteros. 2. Right foot osteomyelitis: Appreciate podiatry recommendations. Status post incision and drainage, fifth metatarsal resection, fifth digit amputation on . Podiatry is recommending IV antibiotics on discharge. Final antibiotic recommendations per infectious disease. Continue wound care, Santyl ointment. Bedside debridement planned for today. 3. Right knee effusion: Continue antibiotics. Appreciate orthopedic surgery recommendations. No surgical intervention planned at this point. 4. Bilateral pleural effusion: Appreciate pulmonology recommendations. Status post right-sided thoracentesis. Cytology is negative for malignant cells. 5. Peripheral vascular disease: Appreciate vascular surgery recommendations. Per vascular surgery, no surgical intervention is planned. 6. Postoperative anemia: Received transfusion of 2 units PRBCs. Monitor H&H. 7. Diabetes mellitus type 2: Continue Levemir. Monitor Accu-Cheks and cover with sliding scale insulin. Continue preprandial insulin as well. 8. Acute kidney injury superimposed on chronic kidney disease stage III: Improved. Avoid nephrotoxins. 9. Hypokalemia: Improved. 10. DVT prophylaxis: Heparin. Discharge Planning Pending further clinical improvement. Problem Qualifiers (1) Sepsis: Qualified Codes: A41.9 - Sepsis, unspecified organism (2) Diabetic foot ulcer: Qualified Codes: E10.621 - Type 1 diabetes mellitus with foot ulcer; L97.419 - Non-pressure chronic ulcer of right heel and midfoot with unspecified severity Siddharth Lane MD Oct 23, 2017 13:03
[2017-10-23] MEDS: cefTRIAXone INJ 2,000 MG in SODIUM CHLORIDE 0.9% INJ 100 ML IV SCH (13:05)
[2017-10-23] MEDS: LACTATED RINGER'S 1000 ML INJ 1,000 ML IV SCH (13:05)
--- NOTE | 2017-10-23 13:55 | HHI.IDPN ---
Subjective Subjective Remarks Mr. Braxton is a 57-year-old male with past medical history significant for diabetes type 2, prior diabetic foot ulcer treated in October 2016 thereafter was hospitalized from May 08, 2017 to May 29, 2017 due to foot ulcer. During that hospitalization patient underwent surgical debridement with wound VAC placement. Patient reports that he was seen by Dr. Pritchard during that admission. Patient reports that he was discharged on IV ceftriaxone using a PICC line. Patient had home health care visits him and continue to receive wound VAC changes at home. He also was subsequently seen at wound care clinic for ongoing wound care as well as [facility] for his primary care needs. Patient reports that his medications were recently adjusted and a new insulin was introduced. Patient reports that he was diagnosed with a possible staph or strep infection and has been on oral Bactrim approximately 2 weeks prior to admission. Due to worsening foot infection as well as possible reaction to the new insulin patient presented to the emergency department [facility]. Patient reports that he was having fevers, chills, loss of appetite and diarrhea for the past 2 days associated with frequent urination. Patient denies any dysuria. He reports dizziness and reported history of falls 3 days ago while on the toilet. Patient's reports that she was unaware of this history of fall. He denies any head injury. Patient reports hitting his right foot and shoulder but that he was able to get off the floor by himself. Patient had a sepsis workup initiated on admission. Wound cultures are positive for strep as well as blood cultures are now positive for gram-positive likely strep. Repeat blood cultures have been ordered. Podiatry is seeing the patient and there is a plan for surgical intervention and possible amputation of the involved digit. Infectious disease is consulted for evaluation and management of right fifth toe osteomyelitis with associated cellulitis, gram-positive bacteremia and sepsis. S/p amputation foot and blood clx + MSSA and strep + osteo extending to margins Overnight events reviewed. Still has low grade fevers. No rash No diarrhea ECHO no veg's. Right knee s.p aspiration: studies so far indicative of septic arthritis. Await glucose and total protein in fluid. CX ng but patient was on abx. CT chest with Bilateral Pleural effusions and pneumonia. Antibiotics Ceftriaxone IV Zyvox IV Levaquin Lines Line sites with no e.o infection Past Medical History Past Medical History DM II Right foot ulcer with possible osteomyelitis in the past. Has received IV antibiotics long-term using a PICC line in the past. Renal stones Past Surgical History Right foot debridement of wound removal of kidney stones Tonsillitis Allergies: Coded Allergies: No Known Allergies (Unverified Adverse Reaction, Unknown, 09/15/17) Uncoded Allergies: tanzanian dressing (Allergy, Severe, Anaphylaxis, 10/07/17) Objective . Vital Signs Date Time Temp Pulse Resp B/P (MAP) Pulse Ox O2 Delivery O2 Flow Rate FiO2 10/23/17 09:00 99.7 112 18 175/86 (115) 92 10/23/17 04:00 99.9 109 18 153/89 (110) 92 10/22/17 23:53 98.5 99 18 115/61 (79) 92 10/22/17 21:16 91 Nasal Cannula 2.00 10/22/17 21:15 86 Room Air 10/22/17 20:00 Nasal Cannula 2.00 10/22/17 16:05 98.2 94 18 134/76 (95) 90 10/22/17 16:00 Nasal Cannula 2.00 . Laboratory Tests Test 10/22/17 08:34 10/23/17 03:40 White Blood Count 9.3 TH/MM3 7.8 TH/MM3 Red Blood Count 3.39 MIL/MM3 3.23 MIL/MM3 Hemoglobin 9.5 GM/DL 9.1 GM/DL Hematocrit 27.9 % 26.3 % Mean Corpuscular Volume 82.5 FL 81.4 FL Mean Corpuscular Hemoglobin 28.1 PG 28.1 PG Mean Corpuscular Hemoglobin Concent 34.0 % 34.6 % Red Cell Distribution Width 14.4 % 14.7 % Platelet Count 356 TH/MM3 264 TH/MM3 Mean Platelet Volume 7.1 FL 7.3 FL Neutrophils (%) (Auto) 70.8 % 62.0 % Lymphocytes (%) (Auto) 18.7 % 22.7 % Monocytes (%) (Auto) 8.1 % 11.2 % Eosinophils (%) (Auto) 1.2 % 2.0 % Basophils (%) (Auto) 1.2 % 2.1 % Neutrophils # (Auto) 6.5 TH/MM3 4.8 TH/MM3 Lymphocytes # (Auto) 1.7 TH/MM3 1.8 TH/MM3 Monocytes # (Auto) 0.8 TH/MM3 0.9 TH/MM3 Eosinophils # (Auto) 0.1 TH/MM3 0.2 TH/MM3 Basophils # (Auto) 0.1 TH/MM3 0.2 TH/MM3 CBC Comment DIFF FINAL AUTO DIFF Differential Comment AUTO DIFF CONFIRMED Platelet Estimate NORMAL Platelet Morphology Comment NORMAL Laboratory Tests Test 10/22/17 08:34 10/22/17 11:22 10/22/17 11:32 10/23/17 03:40 Blood Urea Nitrogen 9 MG/DL 12 MG/DL Creatinine 1.02 MG/DL 1.07 MG/DL Random Glucose 77 MG/DL 72 MG/DL Calcium Level 8.5 MG/DL 8.1 MG/DL Sodium Level 134 MEQ/L 136 MEQ/L Potassium Level 3.9 MEQ/L 3.9 MEQ/L Chloride Level 97 MEQ/L 98 MEQ/L Carbon Dioxide Level 29.9 MEQ/L 30.8 MEQ/L Anion Gap 7 MEQ/L 7 MEQ/L Estimat Glomerular Filtration Rate 75 ML/MIN 71 ML/MIN C-Reactive Protein 14.50 MG/DL Lactic Acid Level 0.7 mmol/L Microbiology Date/Time Source Procedure Growth Status 10/22/17 11:32 Blood Peripheral Aerobic Blood Culture - Preliminary NO GROWTH IN 1 DAY Resulted 10/22/17 11:32 Blood Peripheral Anaerobic Blood Culture - Preliminary NO GROWTH IN 1 DAY Resulted 10/22/17 11:22 Blood Peripheral Aerobic Blood Culture - Preliminary NO GROWTH IN 1 DAY Resulted 10/22/17 11:22 Blood Peripheral Anaerobic Blood Culture - Preliminary NO GROWTH IN 1 DAY Resulted 10/20/17 14:25 Fluid Pleural Fluid Fungal Smear - Final NO FUNGAL ELEMENTS SEEN. Resulted 10/20/17 14:25 Fluid Pleural Fluid Fungal Culture Pending Resulted 10/20/17 14:25 Fluid Pleural Fluid Acid Fast Stain - Final NO ACID FAST BACILLI SEEN Resulted 10/20/17 14:25 Fluid Pleural Fluid Mycobacterial Culture Pending Resulted 10/20/17 14:25 Fluid Pleural Fluid Gram Stain - Final Complete 10/20/17 14:25 Fluid Pleural Fluid Body Fluid Culture - Final NO GROWTH IN 72 HRS.--AEROBICALLY OR ... Complete Imaging Last Impressions Foot MRI 10/08/17 0000 Signed Impressions: Service Date/Time: Sunday, October 08, 2017 09:17 - CONCLUSION: 1. Evidence of cellulitis with 1 cm abscess with peripheral enhancement in the dorsal soft tissues adjacent to the distal 5th digit metatarsus. 2. There is signal abnormality (T1 and T2 prolongation) in the distal metaphysis and epiphysis of the 5th metatarsal bone without definite enhancement in the marrow. This is located adjacent to the soft tissue abscess. Some signal abnormality (T2 prolongation) seen in the same region of the metatarsal bone prior MRI in April 2017, making the significance of the finding uncertain. Differential considerations include both chronic and acute osteomyelitis. Elías Keane MD ADDENDUM: The abscess adjacent to the distal 5th metatarsus does extend proximally anterior and lateral to the 5th metatarsus and there is a 2nd fluid collection which measures 1.7 x 0.6 cm, located anterior and lateral to the base of the 5th metatarsus. This has similar signal characteristics and enhancement pattern as the distal fluid component. In addition, there is a thin amount of fluid tracking in a non-distending the peritoneal tendon sheath, this is only seen on the sagittal images. Elías Keane MD Foot X-Ray 10/07/17 0000 Signed Impressions: Service Date/Time: Saturday, October 07, 2017 13:15 - CONCLUSION: 1. Prominent soft tissue swelling overlying the fifth proximal metatarsal at the MTP joint. No definitive erosive bony change to suggest osteomyelitis. Lupillo Webster MD Physical Exam GENERAL: This is a well-nourished, well-developed patient, in no apparent distress. SKIN: No rashes, ecchymoses or lesions. Cool and dry. HEAD: Atraumatic. Normocephalic. No temporal or scalp tenderness. EYES: Pupils equal round and reactive. Extraocular motions intact. No scleral icterus. No injection or drainage. ENT: Nose without bleeding, purulent drainage or septal hematoma. Throat without erythema, tonsillar hypertrophy or exudate. Uvula midline. Airway patent. NECK: Trachea midline.Supple, nontender, no meningeal signs. CARDIOVASCULAR: Heart sounds audible. RESPIRATORY: basilar crackles. Breath sounds decreased bilateral bases. GASTROINTESTINAL: Abdomen soft, non-tender, nondistended. MUSCULOSKELETAL: Right foot in post op dressing with vac in place. Left foot in dressing. Right knee remarkably improved with minimal erythema. Improved ROM. NEUROLOGICAL: Awake and alert. Nonfocal exam Psych cooperative IV line sites with no evidence of infection. Assessment & Plan Remarks Sepsis present on admission Strep bacteremia secondary to right foot osteomyelitis and cellulitis Staph MSSA bacteremia high grade. Strep not AB,D and Staph infection Right foot fifth MPJ osteomyelitis Right foot cellulitis Pneumonia with bilateral pleural effusions ? HCAP vs septic emboli. Right knee septic arthritis. Diabetes type 2 uncontrolled Acute renal failure: Sepsis, prerenal: improving non diagnostic arterial study (densely calcified vessels) Recommendations: Continue Ceftriaxone (BCX were negative at 4 days and no clinical e/o failure prior to switch) Continue Levaquin for broadening GNR coverage and also atypical PNA coverage. Concern the lung infiltrates could be septic emboli. Continue Zyvox IV (MRSA PNA and MRSA new HCA infection coverage, additionally helps with toxin neutralization for Strep) Reviewed CXR fluid overload concern vivek Whitney he will give lasix. Fevers but normal WBC count, drug fever. Follow cultures Follow clinically. vivek patient and RN. to cover for co 10/24/2017 to 10/26/2017. Chuyita Quinteros MD Oct 23, 2017 13:55
[2017-10-23] MEDS ORDERED: FUROSEMIDE 20 MG/2 ML VIAL IV PUSH ONE (14:00)
[2017-10-23 16:00] VITALS: BP 136/70; PULSE 101; RESP 18; TEMP 98.3; O2SAT 94
--- NOTE | 2017-10-23 17:03 | PD.POD ---
Subjective Podiatric Problems Right foot /ankle infection, s/p I&D R foot/ankle with 5th metatarsal and toe resection Dede 10/08/17 s/p I&D with wound vac right foot/ankle Popelka 10/15/17 Pain score: 3 Past Med/Surg/Social History Past Medical History Endocrine: REPORTS HX OF: Diabetes mellitus Genitourinary: REPORTS HX OF: Other history (Kidney stones ) Past Surgical History Musculoskeletal: REPORTS HX OF: Other musculoskeletal srg (Right foot 5th metatarsal I&D) Social History Smoking Status: Former Smoker Objective Vital Signs Vital Signs Date Time Temp Pulse Resp B/P (MAP) Pulse Ox O2 Delivery O2 Flow Rate FiO2 10/23/17 12:00 107 20 139/74 (95) 91 10/23/17 12:00 100.7 10/23/17 09:00 99.7 112 18 175/86 (115) 92 10/23/17 04:00 99.9 109 18 153/89 (110) 92 10/22/17 23:53 98.5 99 18 115/61 (79) 92 10/22/17 21:16 91 Nasal Cannula 2.00 10/22/17 21:15 86 Room Air 10/22/17 20:00 Nasal Cannula 2.00 Coded Allergies: No Known Allergies (Unverified Adverse Reaction, Unknown, 09/15/17) Uncoded Allergies: gambian dressing (Allergy, Severe, Anaphylaxis, 10/07/17) Exam-Podiatry Remarks Right lateral foot with sutures intact distal lateral foot and lateral ankle with central open area with fibrotic and purulent material at level of cuboid/ lateral cuneiform. Medial arch with ulceration and no purulence expressed here. Dorsal medial incision to ankle and foot healed with prolene suture intact. Assessment & Plan A/P Right foot /ankle infection, s/p I&D R foot/ankle with 5th metatarsal and toe resection Dede 10/08/17 s/p I&D with wound vac right foot/ankle Popelka 10/15/17 Ordered repeat MRI right foot and ankle to evaluate further for continued infection and compare to MRI 2 weeks ago. Purulence present lateral midfoot right, needs repeat I&D with wound vac change in OR. Likely Friday. NPO after midnight Friday night Heidi Handy DPM Oct 23, 2017 17:03
[2017-10-23] MEDS: GABAPENTIN 300 MG CAP PO SCH (17:39)
--- NOTE | 2017-10-23 17:54 | RADRPT ---
EXAM DATE/TIME: 10/23/2017 17:15 [facility] COMPARISON: FOOT RIGHT COMPLETE ([id number]), October 07, 2017, 13:15. INDICATIONS : Post operative. MEDICAL HISTORY : Diabetes mellitus type 2. Renal calculi SURGICAL HISTORY : None. ENCOUNTER: Subsequent ACUITY: 1 day PAIN SCORE: 10/10 LOCATION: Right Foot. FINDINGS: Interval amputation of the fifth toe and metatarsal. Remaining osseous structures appear intact witho ut evidence for erosive bony change. Post surgical soft tissues are noted along the lateral mid foot. CONCLUSION: 1. 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 Lupillo Webster MD on October 23, 2017 at 17:47 Board Certified Radiologist. This report was verified electronically.
--- NOTE | 2017-10-23 18:17 | HHI.PR ---
Subjective Remarks 57 YOWm with DM,Diabetic foot ulcer,Pl eff, Lung infilt US chest Mod to large Rt Pl eff no Fever Breathiing better Pl fluid cytology neg Objective Vital Signs Vital Signs Date Time Temp Pulse Resp B/P (MAP) Pulse Ox O2 Delivery O2 Flow Rate FiO2 10/23/17 12:00 107 20 139/74 (95) 91 10/23/17 12:00 100.7 10/23/17 09:00 99.7 112 18 175/86 (115) 92 10/23/17 04:00 99.9 109 18 153/89 (110) 92 10/22/17 23:53 98.5 99 18 115/61 (79) 92 10/22/17 21:16 91 Nasal Cannula 2.00 10/22/17 21:15 86 Room Air 10/22/17 20:00 Nasal Cannula 2.00 I/O 10/22/17 10/22/17 10/22/17 10/23/17 10/23/17 10/23/17 07:00 15:00 23:00 07:00 15:00 23:00 Intake Total 240 ml 720 ml 240 ml Output Total 2050 ml 1000 ml 275 ml Balance -1810 ml -280 ml -35 ml Intake Oral 240 ml 720 ml 240 ml Output Urine Total 2050 ml 1000 ml 275 ml # Bowel Movements 1 1 0 Result Diagram: 10/23/17 0340 10/23/17 0340 Objective Remarks GENERAL: WBWN WM,NAD SKIN: Warm and dry. HEAD: Normocephalic. EYES: No scleral icterus. No injection or drainage. NECK: Supple, trachea midline. No JVD or lymphadenopathy. CARDIOVASCULAR: Regular rate and rhythm without murmurs, gallops, or rubs. RESPIRATORY: Breath sounds equal bilaterally. No accessory muscle use. Decreased BS at Bases GASTROINTESTINAL: Abdomen soft, non-tender, nondistended. MUSCULOSKELETAL: No cyanosis, or edema. Foot ulcer, VAC device BACK: Nontender without obvious deformity. No CVA tenderness. A/P Assessment and Plan Bilat Pl effusion Lung infilt/ septic emboli DM Foot Ulcer PLAN: Check pl fluid results Cont Abx Stable on RA Curtis Liao MD Oct 23, 2017 18:17
[2017-10-23 21:08] VITALS: BP 142/75; PULSE 104; RESP 18; TEMP 98.4; O2SAT 95
[2017-10-23] MEDS: INSULIN DETEMIR 100 UNITS/ML VIAL SQ SCH (21:30)
[2017-10-23] MEDS: LINEZOLID 600 MG TAB PO SCH (21:31)
[2017-10-23 23:23] VITALS: BP 125/68; PULSE 101; RESP 18; TEMP 97.6; O2SAT 95
[2017-10-24] MEDS: MORPHINE SULFATE 8 MG/ML INJ IV PUSH PRN ×2 (00:34→08:52)
[2017-10-24 04:27] VITALS: BP 141/84; PULSE 104; RESP 18; TEMP 101.1; O2SAT 95
[2017-10-24] MEDS: ACETAMINOPHEN/HYDROcodone 325 MG/7.5 MG TAB PO PRN ×3 (05:25→17:53)
[2017-10-24] MEDS: HEPARIN SODIUM - SQ 10,000 UNITS/ML VIAL SQ SCH ×3 (05:25→21:32)
[2017-10-24 07:48] LABS: BASOPHIL % 0.8 % (0.0-2.0); EOSINOPHIL # 0.1 TH/MM3 (0-0.4); EOSINOPHIL % 1.7 % (0.0-4.0); HEMATOCRIT 22.6 % (39.0-51.0); HEMOGLOBIN 7.9 GM/DL (13.0-17.0); LYMPH % 19.9 % (9.0-44.0); LYMPHOCYTE # 1.2 TH/MM3 (1.0-4.8); MEAN CELL VOLUME 81.7 FL (80.0-100.0); MEAN CORPUSCULAR HEMOGLOBIN 28.6 PG (27.0-34.0); MONO % 10.7 % (0.0-8.0); MONOCYTE # 0.6 TH/MM3 (0-0.9); NEUT % 66.9 % (16.0-70.0); PLATELET COUNT 216 TH/MM3 (150-450); RED BLOOD COUNT 2.77 MIL/MM3 (4.50-5.90); RED CELL DISTRIBUTION WIDTH 14.7 % (11.6-17.2)
[2017-10-24 08:00] VITALS: BP 136/71; PULSE 99; RESP 18; TEMP 99.3; O2SAT 92
[2017-10-24 08:05] LABS: BICARBONATE 28.9 MEQ/L (21.0-32.0); CALCIUM 7.7 MG/DL (8.5-10.1); CREATININE 1.05 MG/DL (0.60-1.30)
[2017-10-24] MEDS: GABAPENTIN 300 MG CAP PO SCH ×3 (08:51→17:52)
[2017-10-24] MEDS: LACTOBACILLUS ACIDOPHILUS TAB PO SCH ×2 (08:52→21:31)
[2017-10-24] MEDS: LINEZOLID 600 MG TAB PO SCH ×2 (08:52→21:31)
[2017-10-24] MEDS: SODIUM CHLORIDE 0.9% FLUSH 10 ML FLUSH IV FLUSH SCH ×2 (08:53→21:32)
[2017-10-24] MEDS: INSULIN ASPART SUPPLEMENTAL SCALE SQ SCH ×4 (08:53→21:00)
[2017-10-24] MEDS: INSULIN ASPART 1,000 UNITS/10 ML VIAL SQ SCH ×3 (08:53→17:52)
[2017-10-24] MEDS: COLLAGENASE OINT 30 GM TUBE TOPICAL SCH (08:53)
[2017-10-24] MEDS: LEVOFLOXACIN 500 MG TAB PO SCH (08:54)
[2017-10-24] MEDS ORDERED: GADODIAMIDE PF 287 MG/ML 5 ML VIAL (for RAD MRI) IVCONTRAST ONE (10:48)
--- NOTE | 2017-10-24 11:48 | HHI.PR ---
Subjective Remarks Follow-up fever, diabetic foot wound. Patient just returned from MRI. Having increased pain in the right foot. Cough in the mornings, but breathing is better overall. Objective Vitals Vital Signs Date Time Temp Pulse Resp B/P (MAP) Pulse Ox O2 Delivery O2 Flow Rate FiO2 10/24/17 08:00 99.3 99 18 136/71 (92) 92 10/24/17 04:27 101.1 104 18 141/84 (103) 95 10/23/17 23:23 97.6 101 18 125/68 (87) 95 10/23/17 21:08 98.4 104 18 142/75 (97) 95 10/23/17 19:45 Nasal Cannula 2.00 10/23/17 16:00 98.3 101 18 136/70 (92) 94 10/23/17 12:00 107 20 139/74 (95) 91 10/23/17 12:00 100.7 I/O 10/23/17 10/23/17 10/23/17 10/24/17 10/24/17 10/24/17 07:00 15:00 23:00 07:00 15:00 23:00 Intake Total 240 ml 1400 ml 480 ml Output Total 275 ml 951 ml 420 ml Balance -35 ml 449 ml 60 ml Intake Oral 240 ml 1400 ml 480 ml Output Urine Total 275 ml 950 ml 420 ml Stool Total 1 ml # Bowel Movements 0 0 Result Diagram: 10/24/17 0610 10/24/17 0610 Imaging Last Impressions Foot X-Ray 10/23/17 0000 Signed Impressions: Service Date/Time: October 17:15 - CONCLUSION: 1. 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 Lupillo Webster MD Chest X-Ray 10/22/17 0000 Signed Impressions: Service Date/Time: Sunday, October 22, 2017 09:07 - CONCLUSION: 1. Bilateral infiltrates and effusion. The exam has worsen when compared to previous dated 10/20/17. Raghavendra Lim MD Thoracentesis Ultrasound 10/20/17 0600 Signed Impressions: Service Date/Time: Friday, October 20, 2017 13:03 - CONCLUSION: Uncomplicated ultrasound guided thoracentesis. Smooth Saucedo MD Chest Ultrasound 10/17/17 0000 Signed Impressions: Service Date/Time: Tuesday, October 17, 2017 20:24 - CONCLUSION: A moderate to large right pleural effusion is confirmed sonographically and marked for thoracentesis. Hector Pierre MD Chest CT 10/16/17 0000 Signed Impressions: Service Date/Time: October 20:14 - CONCLUSION: Moderate-sized bilateral pleural effusions with adjacent compressive atelectasis and/or pneumonia. Scattered increased interstitial infiltrates within the perihilar regions and upper lobes bilaterally raising the possibility of pulmonary vascular congestion. Cardiomegaly and coronary artery calcifications are noted. Mild pretracheal and AP window mediastinal lymphadenopathy which is nonspecific. Degenerative changes and mild scoliosis of the thoracic spine. Hector Pierre MD Aspiration 10/16/17 0000 Signed Impressions: Service Date/Time: October 15:48 - CONCLUSION: Uncomplicated aspiration as above. Chetan Escobedo MD Abdomen/Pelvis CT 10/16/17 0000 Signed Impressions: Service Date/Time: October 20:14 - CONCLUSION: 1. Moderate-sized bilateral pleural effusions with adjacent consolidations consistent with atelectasis and/or pneumonia. 2. Tiny calcified nonobstructing bilateral renal calculi. 3. Mild hepatosplenomegaly. 4. Uncomplicated colonic diverticulosis. 5. Minimal free fluid within the pelvis. 6. Streakiness and fluid within the bilateral retroperitoneum inferior to the kidneys and extending into the presacral region. 7. Degenerative changes and scoliosis of the thoracolumbar spine. Hector Pierre MD Knee X-Ray 10/15/17 0000 Signed Impressions: Service Date/Time: Sunday, October 15, 2017 15:26 - CONCLUSION: Large joint effusion otherwise negative. Tu Lim MD FACR Carotid Artery Ultrasound 10/13/17 0000 Signed Impressions: Service Date/Time: Friday, October 13, 2017 16:12 - CONCLUSION: No evidence of flow-limiting carotid stenosis. Wm Riley MD Aorta w/Runoff CTA 10/13/17 0000 Signed Impressions: Service Date/Time: Friday, October 13, 2017 22:41 - CONCLUSION: 1. No aortic occlusive disease. 2. No significant iliac inflow stenosis. 3. No significant outflow stenosis. 4. Diffuse bilateral runoff disease with heavily calcified tibial arteries and significant venous contamination precluding patency evaluation beyond the very proximal calf. 5. Small to moderate bilateral pleural effusions with associated airspace disease at the lung bases, presumably atelectasis. 6. Trace free fluid in the deep pelvis. 7. Ancillary findings include hepatic steatosis, nonobstructing punctate calyceal calculus in the inferior pole of the left kidney and small suprapatellar right joint effusion. Lupillo Webster MD Foot MRI 10/12/17 0000 Signed Impressions: Service Date/Time: Thursday, October 12, 2017 08:31 - CONCLUSION: 1. No areas of suspected osteomyelitis. 2. Superficial soft tissue swelling over the third and fourth metatarsals. There is also some edema within the plantar musculature. Wm Dupree MD Ankle MRI 10/11/17 0000 Signed Impressions: Service Date/Time: Wednesday, October 11, 2017 09:41 - CONCLUSION: 1. No definite areas of osteomyelitis. There is some edema within the lateral cuboid adjacent to the suspected surgical defect which is likely reactive. T1 signal is maintained. 2. Multiple areas of focal edema within the midfoot mainly related to the subarticular regions likely related to underlying arthritic change. 3. The patient appears to be status post resection of the fifth metatarsal with post surgical change at the lateral hind and midfoot and a small focus of air seen adjacent to the calcaneus. Wm Dupree MD Objective Remarks General: No acute distress. Heart: Regular rate and rhythm. No murmur. Lungs: Mild scattered rhonchi. Breathing is nonlabored. Abdomen: Soft, nontender, nondistended. Extremities: No lower extremity edema. Right foot wounds bandaged. Psych: Alert and oriented. Procedures s/p Right foot and ankle incision drainage, 5th metatarsal resection, 5th digit amputation 10/08/17 Urinary Catheter: No Vascular Central Line Catheter: No A/P Problem List: (1) Osteomyelitis of foot ICD Code: M86.9 - Osteomyelitis, unspecified (2) Leukocytosis ICD Code: D72.829 - Elevated white blood cell count, unspecified (3) Dehydration with hyponatremia ICD Code: E87.1 - Hypo-osmolality and hyponatremia (4) Acute kidney injury ICD Code: N17.9 - Acute kidney failure, unspecified (5) Sepsis ICD Code: A41.9 - Sepsis, unspecified organism Status: Acute (6) Diabetic foot ulcer ICD Code: E11.621 - Type 2 diabetes mellitus with foot ulcer; L97.509 - Non- pressure chronic ulcer of other part of unspecified foot with unspecified severity Status: Acute (7) Acute renal failure superimposed on stage 3 chronic kidney disease ICD Code: N17.9 - Acute kidney failure, unspecified; N18.3 - Chronic kidney disease, stage 3 (moderate) (8) Bacteremia due to Gram-positive bacteria ICD Code: R78.81 - Bacteremia (9) Postoperative anemia ICD Code: D64.9 - Anemia, unspecified Assessment and Plan 1. Sepsis: Secondary to diabetic foot infection, bacteremia, right foot osteomyelitis: Appreciate infectious disease recommendations. Continue antibiotics (Rocephin, Levaquin, Zyvox). Wound culture growing staph and strep not A/B/D. Still having fever, possibly secondary to foot infection. 2. Right foot osteomyelitis: Appreciate podiatry recommendations. Status post incision and drainage, fifth metatarsal resection, fifth digit amputation on . Podiatry is recommending IV antibiotics on discharge. Final antibiotic recommendations per infectious disease. Continue wound care, Santyl ointment. MRIs are pending. Podiatry planning for debridement in the OR tomorrow. 3. Right knee effusion: Continue antibiotics. Appreciate orthopedic surgery recommendations. No surgical intervention planned at this point. 4. Bilateral pleural effusion: Appreciate pulmonology recommendations. Status post right-sided thoracentesis. Cytology is negative for malignant cells. 5. Peripheral vascular disease: Appreciate vascular surgery recommendations. Per vascular surgery, no surgical intervention is planned. 6. Postoperative anemia: Received transfusion of 2 units PRBCs. Monitor H&H. 7. Diabetes mellitus type 2: Continue Levemir. Monitor Accu-Cheks and cover with sliding scale insulin. Continue preprandial insulin as well. 8. Acute kidney injury superimposed on chronic kidney disease stage III: Improved. Avoid nephrotoxins. 9. Hypokalemia: Improved. 10. DVT prophylaxis: Heparin. Discharge Planning Pending further clinical improvement. Problem Qualifiers (1) Sepsis: Qualified Codes: A41.9 - Sepsis, unspecified organism (2) Diabetic foot ulcer: Qualified Codes: E10.621 - Type 1 diabetes mellitus with foot ulcer; L97.419 - Non-pressure chronic ulcer of right heel and midfoot with unspecified severity Siddharth Lane MD Oct 24, 2017 11:48
[2017-10-24 12:00] VITALS: BP 147/81; PULSE 107; RESP 22; TEMP 100.1; O2SAT 92
[2017-10-24] MEDS: cefTRIAXone INJ 2,000 MG in SODIUM CHLORIDE 0.9% INJ 100 ML IV SCH (12:02)
--- NOTE | 2017-10-24 12:25 | RADRPT ---
EXAM DATE/TIME: 10/24/2017 10:08 [facility] COMPARISON: No previous studies available for comparison. INDICATIONS : Abscess. Post right foot surgery, 5TH digit removed. Wound on lateral side of foot. CONTRAST: 14 cc Omniscan (gadodiamide) IV MEDICAL HISTORY : Diabetes mellitus type 2. SURGICAL HISTORY : Tonsillectomy. Right foot surgery. ENCOUNTER: Subsequent ACUITY: 2 weeks PAIN SCORE: 7/10 LOCATION: Right foot. TECHNIQUE: Multiplanar, multisequence MRI examination was performed without contrast and after the intravenous a dministration of gadolinium. FINDINGS: There is no significant marrow enhancements around the ankle to suggest osteomyelitis. However, marro w edema in the hindfoot is increasing, especially the anterior talus, anterior calcaneus and also inv olving the cuboid and tarsal navicular. There are also low signal areas of the tarsal navicular that do not demonstrate any significant edema or enhancement which could represent developing avascular ne crosis. There is edema in the surrounding soft tissues. CONCLUSION: 1. No definite evidence for osteomyelitis around the right ankle. Marrow edema however has increased slightly since the prior exam, probably reactive and possibly associated with a developing Charcot ar thropathy. Low signal patchy areas within the tarsal navicular are suspicious for developing avascula r necrosis. There is edema in the soft tissues of the hindfoot. Trace joint fluid. Francisco Grider MD on October 24, 2017 at 12:13 Board Certified Radiologist. This report was verified electronically.
--- NOTE | 2017-10-24 12:32 | HHI.IDPN ---
Subjective Subjective Remarks ID COVERAGE Mr. Braxton is a 57-year-old male with past medical history significant for diabetes type 2, prior diabetic foot ulcer treated in October 2016 thereafter was hospitalized from May 08, 2017 to May 29, 2017 due to foot ulcer. During that hospitalization patient underwent surgical debridement with wound VAC placement. Patient reports that he was seen by Dr. Pritchard during that admission. Patient reports that he was discharged on IV ceftriaxone using a PICC line. Patient had home health care visits him and continue to receive wound VAC changes at home. He also was subsequently seen at wound care clinic for ongoing wound care as well as [facility] for his primary care needs. Patient reports that his medications were recently adjusted and a new insulin was introduced. Patient reports that he was diagnosed with a possible staph or strep infection and has been on oral Bactrim approximately 2 weeks prior to admission. Due to worsening foot infection as well as possible reaction to the new insulin patient presented to the emergency department [facility]. Patient reports that he was having fevers, chills, loss of appetite and diarrhea for the past 2 days associated with frequent urination. Patient denies any dysuria. He reports dizziness and reported history of falls 3 days ago while on the toilet. Patient's reports that she was unaware of this history of fall. He denies any head injury. Patient reports hitting his right foot and shoulder but that he was able to get off the floor by himself. Patient had a sepsis workup initiated on admission. Wound cultures are positive for strep as well as blood cultures are now positive for gram-positive likely strep. Repeat blood cultures have been ordered. Podiatry is seeing the patient and there is a plan for surgical intervention and possible amputation of the involved digit. Infectious disease is consulted for evaluation and management of right fifth toe osteomyelitis with associated cellulitis, gram-positive bacteremia and sepsis. S/p amputation 5th toe and 5thMT foot and blood clx + MSSA and strep + osteo extending to margins Notes reviewed Temp up to 101 overnight Just had MRI R ankle/foot C/O foot pain No rash No diarrhea ECHO no veg's. Antibiotics Current Medications Rocephin Levaquin Zyvox Medications (Trade) Dose Ordered Sig/Anna Route Start Time Stop Time Status Last Admin (NS Flush) 2 ml UNSCH PRN IV FLUSH 10/07/17 16:45 10/21/17 23:13 (NS Flush) 2 ml BID IV FLUSH 10/07/17 21:00 10/24/17 08:53 (Narcan Inj) 0.4 mg UNSCH PRN IV PUSH 10/07/17 16:45 (Heparin Inj) 5,000 units Q8HR SQ 10/08/17 06:00 10/24/17 12:01 (D50w (Vial) Inj) 50 ml UNSCH PRN IV PUSH 10/08/17 10:30 (Glucagon Inj) 1 mg UNSCH PRN OTHER 10/08/17 10:30 (NovoLOG SUPPLEMENTAL SCALE) 1 ACHS SLIDING SCALE SQ 10/08/17 12:00 10/24/17 08:53 (Lactinex) 1 tab Q12HR PO 10/08/17 21:00 10/24/17 08:52 (NovoLOG INJ) 5 units TIDAC SQ 10/12/17 08:00 10/24/17 08:53 (Levemir Inj) 15 units HS SQ 10/12/17 21:00 10/23/17 21:30 ([place] 7.5-325 Mg) 1 tab Q6H PRN PO 10/13/17 12:45 10/24/17 12:00 (Morphine Inj) 5 mg Q4H PRN IV PUSH 10/13/17 12:45 10/24/17 08:52 (Morphine Inj) 4 mg Q3H PRN IV PUSH 10/13/17 12:45 10/22/17 15:23 (Restoril) 15 mg HS PRN PO 10/13/17 12:45 (Tylenol) 500 mg Q4H PRN PO 10/13/17 13:15 10/22/17 13:38 Ceftriaxone Sodium 2000 mg/ Sodium Chloride 100 ml @ 200 mls/hr Q24H IV 10/13/17 14:00 10/24/17 12:02 (Levaquin) 500 mg DAILY PO 10/14/17 17:00 10/24/17 08:54 (Santyl Oint) 1 applic DAILY TOPICAL 10/22/17 12:00 10/24/17 08:53 (Neurontin) 600 mg TID PO 10/23/17 18:00 10/24/17 12:00 (Zyvox) 600 mg Q12HR PO 10/23/17 21:00 10/24/17 08:52 Lines Line sites with no e.o infection Past Medical History Past Medical History DM II Right foot ulcer with possible osteomyelitis in the past. Has received IV antibiotics long-term using a PICC line in the past. Renal stones Past Surgical History Right foot debridement of wound removal of kidney stones Tonsillitis Allergies: Coded Allergies: No Known Allergies (Unverified Adverse Reaction, Unknown, 09/15/17) Uncoded Allergies: nicaraguan dressing (Allergy, Severe, Anaphylaxis, 10/07/17) Objective . Vital Signs Date Time Temp Pulse Resp B/P (MAP) Pulse Ox O2 Delivery O2 Flow Rate FiO2 10/24/17 08:00 99.3 99 18 136/71 (92) 92 10/24/17 04:27 101.1 104 18 141/84 (103) 95 10/23/17 23:23 97.6 101 18 125/68 (87) 95 10/23/17 21:08 98.4 104 18 142/75 (97) 95 10/23/17 19:45 Nasal Cannula 2.00 10/23/17 16:00 98.3 101 18 136/70 (92) 94 . Laboratory Tests Test 10/23/17 03:40 10/24/17 06:10 White Blood Count 7.8 TH/MM3 6.0 TH/MM3 Red Blood Count 3.23 MIL/MM3 2.77 MIL/MM3 Hemoglobin 9.1 GM/DL 7.9 GM/DL Hematocrit 26.3 % 22.6 % Mean Corpuscular Volume 81.4 FL 81.7 FL Mean Corpuscular Hemoglobin 28.1 PG 28.6 PG Mean Corpuscular Hemoglobin Concent 34.6 % 35.0 % Red Cell Distribution Width 14.7 % 14.7 % Platelet Count 264 TH/MM3 216 TH/MM3 Mean Platelet Volume 7.3 FL 7.0 FL Neutrophils (%) (Auto) 62.0 % 66.9 % Lymphocytes (%) (Auto) 22.7 % 19.9 % Monocytes (%) (Auto) 11.2 % 10.7 % Eosinophils (%) (Auto) 2.0 % 1.7 % Basophils (%) (Auto) 2.1 % 0.8 % Neutrophils # (Auto) 4.8 TH/MM3 4.0 TH/MM3 Lymphocytes # (Auto) 1.8 TH/MM3 1.2 TH/MM3 Monocytes # (Auto) 0.9 TH/MM3 0.6 TH/MM3 Eosinophils # (Auto) 0.2 TH/MM3 0.1 TH/MM3 Basophils # (Auto) 0.2 TH/MM3 0.0 TH/MM3 CBC Comment AUTO DIFF DIFF FINAL Differential Comment AUTO DIFF CONFIRMED Platelet Estimate NORMAL Platelet Morphology Comment NORMAL Laboratory Tests Test 10/23/17 03:40 10/24/17 06:10 Blood Urea Nitrogen 12 MG/DL 16 MG/DL Creatinine 1.07 MG/DL 1.05 MG/DL Random Glucose 72 MG/DL 113 MG/DL Calcium Level 8.1 MG/DL 7.7 MG/DL Sodium Level 136 MEQ/L 135 MEQ/L Potassium Level 3.9 MEQ/L 3.9 MEQ/L Chloride Level 98 MEQ/L 98 MEQ/L Carbon Dioxide Level 30.8 MEQ/L 28.9 MEQ/L Anion Gap 7 MEQ/L 8 MEQ/L Estimat Glomerular Filtration Rate 71 ML/MIN 72 ML/MIN Microbiology Date/Time Source Procedure Growth Status 10/22/17 11:32 Blood Peripheral Aerobic Blood Culture - Preliminary NO GROWTH IN 2 DAYS Resulted 10/22/17 11:32 Blood Peripheral Anaerobic Blood Culture - Preliminary NO GROWTH IN 2 DAYS Resulted 10/22/17 11:22 Blood Peripheral Aerobic Blood Culture - Preliminary NO GROWTH IN 2 DAYS Resulted 10/22/17 11:22 Blood Peripheral Anaerobic Blood Culture - Preliminary NO GROWTH IN 2 DAYS Resulted Imaging Foot X-Ray 10/23/17 0000 Signed Impressions: Service Date/Time: October 17:15 - CONCLUSION: 1. 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 Lupillo Webster MD Chest X-Ray 10/22/17 0000 Signed Impressions: Service Date/Time: Sunday, October 22, 2017 09:07 - CONCLUSION: 1. Bilateral infiltrates and effusion. The exam has worsen when compared to previous dated 10/20/17. Raghavendra Lim MD Thoracentesis Ultrasound 10/20/17 0600 Signed Impressions: Service Date/Time: Friday, October 20, 2017 13:03 - CONCLUSION: Uncomplicated ultrasound guided thoracentesis. Smooth Saucedo MD Chest Ultrasound 10/17/17 0000 Signed Impressions: Service Date/Time: Tuesday, October 17, 2017 20:24 - CONCLUSION: A moderate to large right pleural effusion is confirmed sonographically and marked for thoracentesis. Hector Pierre MD Chest CT 10/16/17 0000 Signed Impressions: Service Date/Time: October 20:14 - CONCLUSION: Moderate-sized bilateral pleural effusions with adjacent compressive atelectasis and/or pneumonia. Scattered increased interstitial infiltrates within the perihilar regions and upper lobes bilaterally raising the possibility of pulmonary vascular congestion. Cardiomegaly and coronary artery calcifications are noted. Mild pretracheal and AP window mediastinal lymphadenopathy which is nonspecific. Degenerative changes and mild scoliosis of the thoracic spine. Hector Pierre MD Aspiration 10/16/17 0000 Signed Impressions: Service Date/Time: October 15:48 - CONCLUSION: Uncomplicated aspiration as above. Chetan Escobedo MD Abdomen/Pelvis CT 10/16/17 0000 Signed Impressions: Service Date/Time: October 20:14 - CONCLUSION: 1. Moderate-sized bilateral pleural effusions with adjacent consolidations consistent with atelectasis and/or pneumonia. 2. Tiny calcified nonobstructing bilateral renal calculi. 3. Mild hepatosplenomegaly. 4. Uncomplicated colonic diverticulosis. 5. Minimal free fluid within the pelvis. 6. Streakiness and fluid within the bilateral retroperitoneum inferior to the kidneys and extending into the presacral region. 7. Degenerative changes and scoliosis of the thoracolumbar spine. Hector Pierre MD Knee X-Ray 10/15/17 0000 Signed Impressions: Service Date/Time: Sunday, October 15, 2017 15:26 - CONCLUSION: Large joint effusion otherwise negative. Tu Lim MD FACR Carotid Artery Ultrasound 10/13/17 0000 Signed Impressions: Service Date/Time: Friday, October 13, 2017 16:12 - CONCLUSION: No evidence of flow-limiting carotid stenosis. Wm Riley MD Aorta w/Runoff CTA 10/13/17 0000 Signed Impressions: Service Date/Time: Friday, October 13, 2017 22:41 - CONCLUSION: 1. No aortic occlusive disease. 2. No significant iliac inflow stenosis. 3. No significant outflow stenosis. 4. Diffuse bilateral runoff disease with heavily calcified tibial arteries and significant venous contamination precluding patency evaluation beyond the very proximal calf. 5. Small to moderate bilateral pleural effusions with associated airspace disease at the lung bases, presumably atelectasis. 6. Trace free fluid in the deep pelvis. 7. Ancillary findings include hepatic steatosis, nonobstructing punctate calyceal calculus in the inferior pole of the left kidney and small suprapatellar right joint effusion. Lupillo Webster MD Foot MRI 10/12/17 0000 Signed Impressions: Service Date/Time: Thursday, October 12, 2017 08:31 - CONCLUSION: 1. No areas of suspected osteomyelitis. 2. Superficial soft tissue swelling over the third and fourth metatarsals. There is also some edema within the plantar musculature. Wm Dupree MD Ankle MRI 10/11/17 0000 Signed Impressions: Service Date/Time: Wednesday, October 11, 2017 09:41 - CONCLUSION: 1. No definite areas of osteomyelitis. There is some edema within the lateral cuboid adjacent to the suspected surgical defect which is likely reactive. T1 signal is maintained. 2. Multiple areas of focal edema within the midfoot mainly related to the subarticular regions likely related to underlying arthritic change. 3. The patient appears to be status post resection of the fifth metatarsal with post surgical change at the lateral hind and midfoot and a small focus of air seen adjacent to the calcaneus. Wm Dupree MD Physical Exam GENERAL: awake and alert, in no apparent distress. SKIN: No rashes, ecchymoses or lesions. Cool and dry. HEAD: Atraumatic. Normocephalic. No temporal or scalp tenderness. EYES: Pupils equal round and reactive. Extraocular motions intact. No scleral icterus. No injection or drainage. ENT: Nose without bleeding, purulent drainage or septal hematoma. Moist mucosa, no lesions NECK: Trachea midline.Supple, nontender, no meningeal signs. CARDIOVASCULAR: Heart sounds audible. RESPIRATORY: basilar crackles. Breath sounds decreased bilateral bases. GASTROINTESTINAL: Abdomen soft, non-tender, nondistended. MUSCULOSKELETAL: Right foot with dry and intact dressing. Left foot in dressing. Right knee with minimal erythema and improved ROM. NEUROLOGICAL: Awake and alert. Nonfocal exam Psych cooperative IV line sites with no evidence of infection. Assessment & Plan Remarks Sepsis present on admission Strep bacteremia secondary to right foot osteomyelitis and cellulitis Staph MSSA bacteremia high grade. Strep not AB,D and Staph infection Right foot fifth MPJ osteomyelitis Right foot cellulitis Pneumonia with bilateral pleural effusions ? HCAP vs septic emboli. Right knee septic arthritis. Diabetes type 2 uncontrolled Acute renal failure: Sepsis, prerenal: improving Fevers Recommendations: Continue Ceftriaxone (BCX were negative at 4 days and no clinical e/o failure prior to switch) Continue Levaquin for broadening GNR coverage and also atypical PNA coverage. Concern the lung infiltrates could be septic emboli. Continue Zyvox IV (MRSA PNA and MRSA new HCA infection coverage, additionally helps with toxin neutralization for Strep) Repeat 2 BC today UA and C/S Await repeat MRI report OR plans per podiatry possibly this weekend Monitor progress Follow Marci Montalvo MD Oct 24, 2017 12:32
--- NOTE | 2017-10-24 12:50 | RADRPT ---
EXAM DATE/TIME: 10/24/2017 10:08 [facility] COMPARISON: No previous studies available for comparison. INDICATIONS : Abscess. Post right foot surgery, 5TH digit removed. Wound on lateral side of foot. CONTRAST: 14 cc Omniscan (gadodiamide) IV MEDICAL HISTORY : Diabetes mellitus type 2. SURGICAL HISTORY : Tonsillectomy. Right foot surgery. ENCOUNTER: Subsequent ACUITY: 2 weeks PAIN SCORE: 7/10 LOCATION: Right foot. TECHNIQUE: Multiplanar, multisequence MRI examination was performed without contrast and after the intravenous a dministration of gadolinium. FINDINGS: The fifth digit and fifth metatarsal have been resected since the prior examination. There is diminis hed marrow signal in a patchy distribution in both the cuboid and tarsal navicular which could indica te some avascular necrosis. On the postcontrast images there is some mild marrow enhancement in the proximal fourth metatarsal lepe spicious for an early osteomyelitis. There is fairly extensive marrow edema in the midfoot probably r epresenting reactive change. There is some enhancement around a complex fluid collection in the lateral foot near the surgical def ect at the fourth tarsometatarsal joint. CONCLUSION: 1. Marrow edema and mild marrow enhancement in the proximal fourth metatarsal suspicious for an early osteomyelitis. 2. Complex fluid collection in the lateral foot near the base of the fourth metatarsal, probably an a bscess with surrounding cellulitis. 3. Extensive marrow edema in the midfoot as above, probably reactive. Patchy low signal in the navicu lar and cuboid may indicate some avascular necrosis. 4. Postoperative resection of the fifth toe and fifth metatarsal. Francisco Grider MD on October 24, 2017 at 12:38 Board Certified Radiologist. This report was verified electronically.
[2017-10-24] MEDS: MORPHINE SULFATE 4 MG/ML INJ IV PUSH PRN ×2 (15:08→21:31)
[2017-10-24 16:00] VITALS: BP 130/77; PULSE 97; RESP 20; TEMP 99.8; O2SAT 96
--- NOTE | 2017-10-24 17:44 | HHI.PR ---
Subjective Remarks 57 YOWm with DM,Diabetic foot ulcer,Pl eff, Lung infilt US chest Mod to large Rt Pl eff no Fever Breathiing better Pl fluid cytology neg C/o pain in foot Objective Vital Signs Vital Signs Date Time Temp Pulse Resp B/P (MAP) Pulse Ox O2 Delivery O2 Flow Rate FiO2 10/24/17 16:00 99.8 97 20 130/77 (94) 96 10/24/17 12:00 100.1 107 22 147/81 (103) 92 10/24/17 08:00 2.00 10/24/17 08:00 99.3 99 18 136/71 (92) 92 10/24/17 04:27 101.1 104 18 141/84 (103) 95 10/23/17 23:23 97.6 101 18 125/68 (87) 95 10/23/17 21:08 98.4 104 18 142/75 (97) 95 10/23/17 19:45 Nasal Cannula 2.00 I/O 10/23/17 10/23/17 10/23/17 10/24/17 10/24/17 10/24/17 07:00 15:00 23:00 07:00 15:00 23:00 Intake Total 240 ml 1400 ml 480 ml Output Total 275 ml 951 ml 420 ml Balance -35 ml 449 ml 60 ml Intake Oral 240 ml 1400 ml 480 ml Output Urine Total 275 ml 950 ml 420 ml Stool Total 1 ml # Bowel Movements 0 0 Result Diagram: 10/24/17 0610 10/24/17 0610 Objective Remarks GENERAL: WBWN WM,NAD SKIN: Warm and dry. HEAD: Normocephalic. EYES: No scleral icterus. No injection or drainage. NECK: Supple, trachea midline. No JVD or lymphadenopathy. CARDIOVASCULAR: Regular rate and rhythm without murmurs, gallops, or rubs. RESPIRATORY: Breath sounds equal bilaterally. No accessory muscle use. Decreased BS at Bases GASTROINTESTINAL: Abdomen soft, non-tender, nondistended. MUSCULOSKELETAL: No cyanosis, or edema. Foot ulcer, VAC device BACK: Nontender without obvious deformity. No CVA tenderness. A/P Assessment and Plan Bilat Pl effusion Lung infilt/ septic emboli DM Foot Ulcer PLAN: Check pl fluid results Cont Abx Stable on RA Available prn over weekend Curtis Liao MD Oct 24, 2017 17:44
[2017-10-24 20:00] VITALS: BP 134/68; PULSE 101; RESP 20; TEMP 99.6; O2SAT 95
[2017-10-24 20:48] LABS: BILIRUBIN, URINE NEG (NEG); BLOOD, URINE NEG (NEG); GLUCOSE,URINE NEG (NEG); KETONE, URINE NEG (NEG); NITRITE,URINE NEG (NEG); PH, URINE 6.5 (5.0-8.5); SQUAMOUS EPITHELIAL CELL URINE <1 /hpf (0-5); URINE COLOR LIGHT-YELLOW (YELLW/STRAW); URINE LEUKOCYTE ESTERASE NEG (NEG)
[2017-10-24] MEDS: INSULIN DETEMIR 100 UNITS/ML VIAL SQ SCH (21:00)
[2017-10-25] VITALS: BP 150/83; PULSE 100; RESP 20; TEMP 99.5; O2SAT 98
[2017-10-25] MEDS: ACETAMINOPHEN/HYDROcodone 325 MG/7.5 MG TAB PO PRN ×4 (00:41→22:37)
[2017-10-25] MEDS: HEPARIN SODIUM - SQ 10,000 UNITS/ML VIAL SQ SCH (00:42)
[2017-10-25] MEDS: MORPHINE SULFATE 8 MG/ML INJ IV PUSH PRN ×2 (02:54→13:26)
[2017-10-25 04:00] VITALS: BP 151/87; PULSE 101; RESP 20; TEMP 99.1; O2SAT 96
[2017-10-25 06:32] LABS: AUTOMATED NEUTROPHIL # 4.1 TH/MM3 (1.8-7.7); BASOPHIL % 0.8 % (0.0-2.0); EOSINOPHIL # 0.1 TH/MM3 (0-0.4); EOSINOPHIL % 1.3 % (0.0-4.0); HEMATOCRIT 23.9 % (39.0-51.0); HEMOGLOBIN 8.1 GM/DL (13.0-17.0); LYMPH % 18.2 % (9.0-44.0); LYMPHOCYTE # 1.1 TH/MM3 (1.0-4.8); MEAN CELL VOLUME 82.2 FL (80.0-100.0); MEAN CORPUSCULAR HEMOGLOBIN 27.9 PG (27.0-34.0); MEAN CORPUSCULAR HGB CONC 33.9 % (32.0-36.0); MONO % 11.5 % (0.0-8.0); MONOCYTE # 0.7 TH/MM3 (0-0.9); NEUT % 68.2 % (16.0-70.0); PLATELET COUNT 222 TH/MM3 (150-450); RED BLOOD COUNT 2.91 MIL/MM3 (4.50-5.90); RED CELL DISTRIBUTION WIDTH 14.9 % (11.6-17.2)
[2017-10-25 06:46] LABS: INTERNATIONAL NORMALIZED RATIO 1.1 RATIO; PROTHROMBIN TIME - PATIENT 11.5 SEC (9.8-11.6)
[2017-10-25] MEDS: MORPHINE SULFATE 4 MG/ML INJ IV PUSH PRN ×2 (06:53→19:50)
[2017-10-25 07:22] LABS: BICARBONATE 31.1 MEQ/L (21.0-32.0); CALCIUM 8.5 MG/DL (8.5-10.1); CREATININE 1.16 MG/DL (0.60-1.30)
[2017-10-25] MEDS ORDERED: BUPIVACAINE HCL PF 0.5% 30 ML VIAL ONE (07:26)
[2017-10-25] MEDS ORDERED: ACETAMINOPHEN 1000 MG/100 ML 100 ML IV ONE (07:33)
[2017-10-25 08:00] VITALS: BP 155/82; PULSE 108; RESP 18; TEMP 100; O2SAT 95
[2017-10-25] MEDS: COLLAGENASE OINT 30 GM TUBE TOPICAL SCH (09:00)
--- NOTE | 2017-10-25 09:29 | HHI.PR ---
Immediate Post Op Note Procedure Date: Oct 25, 2017 Pre Op Diagnosis: Right foot/ankle abscess Right 4th metatarsal osteomyelitis Post Op Diagnosis: Same Surgeon: Heidi Handy DPM Side Boss(s): Staff Procedure: Incision and drainage Right foot/ankle abscess with bone biopsy right 4th metatarsal base Findings: Consistent with diagnosis. Sutures removed from previous I&D approximately 2 weeks prior. Purulent drainage coming from central aspect of lateral foot. Wound opened laterally and incision made proximally to extend with #15 blade to access path of purulent drainage along peroneals and toward plantar foot. Fibrotic/purulent material excisionally debrided with #15 blade, curette, rongeur, and irrigation with 6L Normal saline. Bone biopsy and culture of tissue taken from lateral aspect of 4th metatarsal base. Wound vac applied right lateral foot maintained at 125mmHg medium continuous setting Residual wound right lateral foot approximately 17cm x 5cm x 2.5cm depth with exposed tendon and bone of cuboid and 4th metatarsal base. No necrotic tissue within wound. Healthy bleeding base. Plantar ulceration right arch area approximately 3.5cm x 2.5cm x 0.3cm depth with fibrotic base. Excisional debridement of ulceration performed with #15 blade and curettage down to healthy bleeding granular base. Dorsomedial right foot ulceration approximately 2.5cm x 1cm x 0.4cm depth with fibrotic base. Excisional debridement of ulceration performed with #15 blade and curettage down to healthy bleeding granular base. Skin margins made acute and reapproximation with 2-0 nylon suture performed after irrigation with NS. Dressing to plantar and medial sites with xeroform, 4x4, cast padding, abd, leena. Additional Information: N/a Complications: None Specimen(s) removed: 1. culture right foot 2. bone biopsy right 4th metatarsal Estimated blood loss: 10mL Anesthesia: General Drains: Other (Wound vac right foot) Tourniquet time (min at mmHg) n/a Patient to: PACU Patient Condition: Good Date/Time of Procedure: SEE SURGICAL CARE RECORD Heidi Handy DPM Oct 25, 2017 09:29
[2017-10-25] MEDS ORDERED: MIDAZOLAM HCL 2 MG/2 ML VIAL ONE (09:32)
[2017-10-25] MEDS: GABAPENTIN 300 MG CAP PO SCH ×3 (10:32→17:53)
[2017-10-25] MEDS: LEVOFLOXACIN 500 MG TAB PO SCH (10:33)
[2017-10-25] MEDS: LINEZOLID 600 MG TAB PO SCH ×2 (10:33→20:54)
[2017-10-25] MEDS: SODIUM CHLORIDE 0.9% FLUSH 10 ML FLUSH IV FLUSH SCH ×2 (10:34→20:55)
[2017-10-25] MEDS: LACTOBACILLUS ACIDOPHILUS TAB PO SCH ×2 (10:34→20:54)
[2017-10-25] MEDS: INSULIN ASPART 1,000 UNITS/10 ML VIAL SQ SCH ×3 (10:40→17:54)
[2017-10-25] MEDS: INSULIN ASPART SUPPLEMENTAL SCALE SQ SCH ×5 (10:40→20:55)
[2017-10-25 12:00] VITALS: BP 110/60; PULSE 100; RESP 18; TEMP 98.2; O2SAT 95
[2017-10-25] MEDS ORDERED: ONDANSETRON HCL 4 MG/2 ML VIAL IV ONE (12:00)
[2017-10-25] MEDS ORDERED: DEXAMETHASONE SOD PHOS 4 MG/ML VIAL IV ONE (12:00)
[2017-10-25] MEDS ORDERED: LIDOCAINE HCL 1% PF 5 ML SYRINGE OTHER ONE (12:00)
[2017-10-25] MEDS ORDERED: PHENYLEPH/NS 1000 MCG/10 ML SYR IV ONE (12:00)
[2017-10-25] MEDS ORDERED: PROPOFOL 200 MG/20 ML AMP IV ONE (12:00)
[2017-10-25] MEDS ORDERED: DO NOT ADM ANY ANTICOAGULANT DRUGS PRN (12:30)
--- NOTE | 2017-10-25 12:42 | HHI.IDPN ---
Subjective Subjective Remarks ID [id number] Mr. Braxton is a 57-year-old male with past medical history significant for diabetes type 2, prior diabetic foot ulcer treated in October 2016 thereafter was hospitalized from May 08, 2017 to May 29, 2017 due to foot ulcer. During that hospitalization patient underwent surgical debridement with wound VAC placement. Patient reports that he was seen by Dr. Pritchard during that admission. Patient reports that he was discharged on IV ceftriaxone using a PICC line. Patient had home health care visits him and continue to receive wound VAC changes at home. He also was subsequently seen at wound care clinic for ongoing wound care as well as [facility] for his primary care needs. Patient reports that his medications were recently adjusted and a new insulin was introduced. Patient reports that he was diagnosed with a possible staph or strep infection and has been on oral Bactrim approximately 2 weeks prior to admission. Due to worsening foot infection as well as possible reaction to the new insulin patient presented to the emergency department [facility]. Patient reports that he was having fevers, chills, loss of appetite and diarrhea for the past 2 days associated with frequent urination. Patient denies any dysuria. He reports dizziness and reported history of falls 3 days ago while on the toilet. Patient's reports that she was unaware of this history of fall. He denies any head injury. Patient reports hitting his right foot and shoulder but that he was able to get off the floor by himself. Patient had a sepsis workup initiated on admission. Wound cultures are positive for strep as well as blood cultures are now positive for gram-positive likely strep. Repeat blood cultures have been ordered. Podiatry is seeing the patient and there is a plan for surgical intervention and possible amputation of the involved digit. Infectious disease is consulted for evaluation and management of right fifth toe osteomyelitis with associated cellulitis, gram-positive bacteremia and sepsis. S/p amputation 5th toe and 5thMT foot and blood clx + MSSA and strep + osteo extending to margins Notes reviewed Temp low grade overnight Went to OR this morning to his R ankle C/O foot pain No rash No diarrhea ECHO no veg's. Antibiotics Current Medications Rocephin Levaquin Zyvox Medications (Trade) Dose Ordered Sig/Anna Route Start Time Stop Time Status Last Admin (NS Flush) 2 ml UNSCH PRN IV FLUSH 10/07/17 16:45 10/21/17 23:13 (NS Flush) 2 ml BID IV FLUSH 10/07/17 21:00 10/25/17 10:34 (Narcan Inj) 0.4 mg UNSCH PRN IV PUSH 10/07/17 16:45 (D50w (Vial) Inj) 50 ml UNSCH PRN IV PUSH 10/08/17 10:30 (Glucagon Inj) 1 mg UNSCH PRN OTHER 10/08/17 10:30 (NovoLOG SUPPLEMENTAL SCALE) 1 ACHS SLIDING SCALE SQ 10/08/17 12:00 10/25/17 10:40 (Lactinex) 1 tab Q12HR PO 10/08/17 21:00 10/25/17 10:34 (NovoLOG INJ) 5 units TIDAC SQ 10/12/17 08:00 10/25/17 10:40 (Levemir Inj) 15 units HS SQ 10/12/17 21:00 10/23/17 21:30 ([place]oughton 7.5-325 Mg) 1 tab Q6H PRN PO 10/13/17 12:45 10/25/17 10:32 (Morphine Inj) 5 mg Q4H PRN IV PUSH 10/13/17 12:45 10/25/17 02:54 (Morphine Inj) 4 mg Q3H PRN IV PUSH 10/13/17 12:45 10/25/17 06:53 (Restoril) 15 mg HS PRN PO 10/13/17 12:45 (Tylenol) 500 mg Q4H PRN PO 10/13/17 13:15 10/22/17 13:38 Ceftriaxone Sodium 2000 mg/ Sodium Chloride 100 ml @ 200 mls/hr Q24H IV 10/13/17 14:00 10/24/17 12:02 (Levaquin) 500 mg DAILY PO 10/14/17 17:00 10/25/17 10:33 (Santyl Oint) 1 applic DAILY TOPICAL 10/22/17 12:00 10/24/17 08:53 (Neurontin) 600 mg TID PO 10/23/17 18:00 10/25/17 10:32 (Zyvox) 600 mg Q12HR PO 10/23/17 21:00 10/25/17 10:33 Miscellaneous Information ALL NURSING DEPARTME... UNSCH PRN .XX 10/25/17 12:30 10/26/17 12:29 Lines Line sites with no e.o infection Past Medical History Past Medical History DM II Right foot ulcer with possible osteomyelitis in the past. Has received IV antibiotics long-term using a PICC line in the past. Renal stones Past Surgical History Right foot debridement of wound removal of kidney stones Tonsillitis Allergies: Coded Allergies: No Known Allergies (Unverified Adverse Reaction, Unknown, 09/15/17) Uncoded Allergies: liberian dressing (Allergy, Severe, Anaphylaxis, 10/07/17) Objective . Vital Signs Date Time Temp Pulse Resp B/P (MAP) Pulse Ox O2 Delivery O2 Flow Rate FiO2 10/25/17 12:00 98.2 100 18 110/60 (77) 95 10/25/17 09:45 98.1 96 14 133/67 (89) 96 Nasal Cannula 2 10/25/17 09:30 94 14 143/69 (93) 96 Nasal Cannula 2 10/25/17 09:24 99.1 93 14 112/61 (78) 96 Nasal Cannula 2 10/25/17 08:00 100.0 108 18 155/82 (106) 95 10/25/17 07:50 Nasal Cannula 2.00 10/25/17 04:00 99.1 101 20 151/87 (108) 96 10/25/17 00:00 99.5 100 20 150/83 (105) 98 10/24/17 20:00 99.6 101 20 134/68 (90) 95 10/24/17 20:00 Nasal Cannula 2.00 10/24/17 16:00 99.8 97 20 130/77 (94) 96 10/25/17 10/25/17 10/26/17 15:00 23:00 07:00 Intake Total 650 ml Balance 650 ml Other 650 ml . Laboratory Tests Test 10/24/17 06:10 10/25/17 05:15 White Blood Count 6.0 TH/MM3 6.0 TH/MM3 Red Blood Count 2.77 MIL/MM3 2.91 MIL/MM3 Hemoglobin 7.9 GM/DL 8.1 GM/DL Hematocrit 22.6 % 23.9 % Mean Corpuscular Volume 81.7 FL 82.2 FL Mean Corpuscular Hemoglobin 28.6 PG 27.9 PG Mean Corpuscular Hemoglobin Concent 35.0 % 33.9 % Red Cell Distribution Width 14.7 % 14.9 % Platelet Count 216 TH/MM3 222 TH/MM3 Mean Platelet Volume 7.0 FL 7.0 FL Neutrophils (%) (Auto) 66.9 % 68.2 % Lymphocytes (%) (Auto) 19.9 % 18.2 % Monocytes (%) (Auto) 10.7 % 11.5 % Eosinophils (%) (Auto) 1.7 % 1.3 % Basophils (%) (Auto) 0.8 % 0.8 % Neutrophils # (Auto) 4.0 TH/MM3 4.1 TH/MM3 Lymphocytes # (Auto) 1.2 TH/MM3 1.1 TH/MM3 Monocytes # (Auto) 0.6 TH/MM3 0.7 TH/MM3 Eosinophils # (Auto) 0.1 TH/MM3 0.1 TH/MM3 Basophils # (Auto) 0.0 TH/MM3 0.0 TH/MM3 CBC Comment DIFF FINAL DIFF FINAL Differential Comment Laboratory Tests Test 10/24/17 06:10 10/25/17 05:15 Blood Urea Nitrogen 16 MG/DL 20 MG/DL Creatinine 1.05 MG/DL 1.16 MG/DL Random Glucose 113 MG/DL 216 MG/DL Calcium Level 7.7 MG/DL 8.5 MG/DL Sodium Level 135 MEQ/L 134 MEQ/L Potassium Level 3.9 MEQ/L 4.0 MEQ/L Chloride Level 98 MEQ/L 96 MEQ/L Carbon Dioxide Level 28.9 MEQ/L 31.1 MEQ/L Anion Gap 8 MEQ/L 7 MEQ/L Estimat Glomerular Filtration Rate 72 ML/MIN 64 ML/MIN Microbiology Date/Time Source Procedure Growth Status 10/24/17 21:31 Blood Peripheral Aerobic Blood Culture - Preliminary NO GROWTH IN 1 DAY Resulted 10/24/17 21:31 Blood Peripheral Anaerobic Blood Culture - Preliminary NO GROWTH IN 1 DAY Resulted 10/24/17 21:25 Blood Peripheral Aerobic Blood Culture - Preliminary NO GROWTH IN 1 DAY Resulted 10/24/17 21:25 Blood Peripheral Anaerobic Blood Culture - Preliminary NO GROWTH IN 1 DAY Resulted Imaging Foot X-Ray 10/23/17 0000 Signed Impressions: Service Date/Time: October 17:15 - CONCLUSION: 1. 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 Lupillo Webster MD Chest X-Ray 10/22/17 0000 Signed Impressions: Service Date/Time: Sunday, October 22, 2017 09:07 - CONCLUSION: 1. Bilateral infiltrates and effusion. The exam has worsen when compared to previous dated 10/20/17. Raghavendra Lim MD Thoracentesis Ultrasound 10/20/17 0600 Signed Impressions: Service Date/Time: Friday, October 20, 2017 13:03 - CONCLUSION: Uncomplicated ultrasound guided thoracentesis. Smooth Saucedo MD Chest Ultrasound 10/17/17 0000 Signed Impressions: Service Date/Time: Tuesday, October 17, 2017 20:24 - CONCLUSION: A moderate to large right pleural effusion is confirmed sonographically and marked for thoracentesis. Hector Pierre MD Chest CT 10/16/17 0000 Signed Impressions: Service Date/Time: October 20:14 - CONCLUSION: Moderate-sized bilateral pleural effusions with adjacent compressive atelectasis and/or pneumonia. Scattered increased interstitial infiltrates within the perihilar regions and upper lobes bilaterally raising the possibility of pulmonary vascular congestion. Cardiomegaly and coronary artery calcifications are noted. Mild pretracheal and AP window mediastinal lymphadenopathy which is nonspecific. Degenerative changes and mild scoliosis of the thoracic spine. Hector Pierre MD Aspiration 10/16/17 0000 Signed Impressions: Service Date/Time: October 15:48 - CONCLUSION: Uncomplicated aspiration as above. Chetan Escobedo MD Abdomen/Pelvis CT 10/16/17 0000 Signed Impressions: Service Date/Time: October 20:14 - CONCLUSION: 1. Moderate-sized bilateral pleural effusions with adjacent consolidations consistent with atelectasis and/or pneumonia. 2. Tiny calcified nonobstructing bilateral renal calculi. 3. Mild hepatosplenomegaly. 4. Uncomplicated colonic diverticulosis. 5. Minimal free fluid within the pelvis. 6. Streakiness and fluid within the bilateral retroperitoneum inferior to the kidneys and extending into the presacral region. 7. Degenerative changes and scoliosis of the thoracolumbar spine. Hector Pierre MD Knee X-Ray 10/15/17 0000 Signed Impressions: Service Date/Time: Sunday, October 15, 2017 15:26 - CONCLUSION: Large joint effusion otherwise negative. Tu Lim MD FACR Carotid Artery Ultrasound 10/13/17 0000 Signed Impressions: Service Date/Time: Friday, October 13, 2017 16:12 - CONCLUSION: No evidence of flow-limiting carotid stenosis. Wm Riley MD Aorta w/Runoff CTA 10/13/17 0000 Signed Impressions: Service Date/Time: Friday, October 13, 2017 22:41 - CONCLUSION: 1. No aortic occlusive disease. 2. No significant iliac inflow stenosis. 3. No significant outflow stenosis. 4. Diffuse bilateral runoff disease with heavily calcified tibial arteries and significant venous contamination precluding patency evaluation beyond the very proximal calf. 5. Small to moderate bilateral pleural effusions with associated airspace disease at the lung bases, presumably atelectasis. 6. Trace free fluid in the deep pelvis. 7. Ancillary findings include hepatic steatosis, nonobstructing punctate calyceal calculus in the inferior pole of the left kidney and small suprapatellar right joint effusion. Lupillo Webster MD Foot MRI 10/12/17 0000 Signed Impressions: Service Date/Time: Thursday, October 12, 2017 08:31 - CONCLUSION: 1. No areas of suspected osteomyelitis. 2. Superficial soft tissue swelling over the third and fourth metatarsals. There is also some edema within the plantar musculature. Wm Dupree MD Ankle MRI 10/11/17 0000 Signed Impressions: Service Date/Time: Wednesday, October 11, 2017 09:41 - CONCLUSION: 1. No definite areas of osteomyelitis. There is some edema within the lateral cuboid adjacent to the suspected surgical defect which is likely reactive. T1 signal is maintained. 2. Multiple areas of focal edema within the midfoot mainly related to the subarticular regions likely related to underlying arthritic change. 3. The patient appears to be status post resection of the fifth metatarsal with post surgical change at the lateral hind and midfoot and a small focus of air seen adjacent to the calcaneus. Wm Dupree MD Physical Exam GENERAL: awake and alert, NAD SKIN: No rashes. Cool and dry. HEAD: Atraumatic. Normocephalic. No temporal or scalp tenderness. EYES: Pupils equal round and reactive. Extraocular motions intact. No scleral icterus. No injection or drainage. ENT: Nose without bleeding, purulent drainage or septal hematoma. Moist mucosa, no lesions NECK: Trachea midline.Supple, nontender, no meningeal signs. CARDIOVASCULAR: Heart sounds audible. RESPIRATORY: basilar crackles. Breath sounds decreased bilateral bases. GASTROINTESTINAL: Abdomen soft, non-tender, nondistended. MUSCULOSKELETAL: Right foot with dry and intact dressing. Left foot in dressing. NEUROLOGICAL: Awake and alert. Nonfocal exam Psych cooperative IV line sites with no evidence of infection. Assessment & Plan Remarks Sepsis present on admission Strep bacteremia secondary to right foot osteomyelitis and cellulitis Staph MSSA bacteremia high grade. Strep not AB,D and Staph infection Right foot fifth MPJ osteomyelitis Right foot cellulitis Pneumonia with bilateral pleural effusions ? HCAP vs septic emboli. Right knee septic arthritis. Diabetes type 2 uncontrolled Acute renal failure: Sepsis, prerenal: improving Fevers Recommendations: Continue Ceftriaxone (BCX were negative at 4 days and no clinical e/o failure prior to switch) Continue Levaquin for broadening GNR coverage and also atypical PNA coverage. Concern the lung infiltrates could be septic emboli. Continue Zyvox IV (MRSA PNA and MRSA new HCA infection coverage, additionally helps with toxin neutralization for Strep) Follow new C/S and adjust Abx Monitor progress Follow Marci Montalvo MD Oct 25, 2017 12:42
[2017-10-25] MEDS: cefTRIAXone INJ 2,000 MG in SODIUM CHLORIDE 0.9% INJ 100 ML IV SCH (13:24)
--- NOTE | 2017-10-25 13:36 | HHI.PR ---
Subjective Remarks Follow up osteomyelitis, fever, diabetes. Patient just returned from surgery. Reports pain in the right foot. Wound vac in place. No other complaints at this time. Objective Vitals Vital Signs Date Time Temp Pulse Resp B/P (MAP) Pulse Ox O2 Delivery O2 Flow Rate FiO2 10/25/17 12:00 98.2 100 18 110/60 (77) 95 10/25/17 09:45 98.1 96 14 133/67 (89) 96 Nasal Cannula 2 10/25/17 09:30 94 14 143/69 (93) 96 Nasal Cannula 2 10/25/17 09:24 99.1 93 14 112/61 (78) 96 Nasal Cannula 2 10/25/17 08:00 100.0 108 18 155/82 (106) 95 10/25/17 07:50 Nasal Cannula 2.00 10/25/17 04:00 99.1 101 20 151/87 (108) 96 10/25/17 00:00 99.5 100 20 150/83 (105) 98 10/24/17 20:00 99.6 101 20 134/68 (90) 95 10/24/17 20:00 Nasal Cannula 2.00 10/24/17 16:00 99.8 97 20 130/77 (94) 96 I/O 10/24/17 10/24/17 10/24/17 10/25/17 10/25/17 10/25/17 06:59 14:59 22:59 06:59 14:59 22:59 Intake Total 480 ml 480 ml 650 ml Output Total 420 ml 800 ml 725 ml Balance 60 ml -800 ml -245 ml 650 ml Intake Oral 480 ml 480 ml Other 650 ml Output Urine Total 420 ml 800 ml 725 ml # Bowel Movements 0 1 1 Result Diagram: 10/25/17 0515 10/25/17 0515 Imaging Last Impressions Foot MRI 10/24/17 0000 Signed Impressions: Service Date/Time: Tuesday, October 24, 2017 10:08 - CONCLUSION: 1. Marrow edema and mild marrow enhancement in the proximal fourth metatarsal suspicious for an early osteomyelitis. 2. Complex fluid collection in the lateral foot near the base of the fourth metatarsal, probably an abscess with surrounding cellulitis. 3. Extensive marrow edema in the midfoot as above, probably reactive. Patchy low signal in the navicular and cuboid may indicate some avascular necrosis. 4. Postoperative resection of the fifth toe and fifth metatarsal. Francisco Grider MD Ankle MRI 10/24/17 0000 Signed Impressions: Service Date/Time: Tuesday, October 24, 2017 10:08 - CONCLUSION: 1. No definite evidence for osteomyelitis around the right ankle. Marrow edema however has increased slightly since the prior exam, probably reactive and possibly associated with a developing Charcot arthropathy. Low signal patchy areas within the tarsal navicular are suspicious for developing avascular necrosis. There is edema in the soft tissues of the hindfoot. Trace joint fluid. Francisco Grider MD Foot X-Ray 10/23/17 0000 Signed Impressions: Service Date/Time: October 17:15 - CONCLUSION: 1. 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 Lupillo Webster MD Chest X-Ray 10/22/17 0000 Signed Impressions: Service Date/Time: Sunday, October 22, 2017 09:07 - CONCLUSION: 1. Bilateral infiltrates and effusion. The exam has worsen when compared to previous dated 10/20/17. Raghavendra Lim MD Thoracentesis Ultrasound 10/20/17 0600 Signed Impressions: Service Date/Time: Friday, October 20, 2017 13:03 - CONCLUSION: Uncomplicated ultrasound guided thoracentesis. Smooth Saucedo MD Chest Ultrasound 10/17/17 0000 Signed Impressions: Service Date/Time: Tuesday, October 17, 2017 20:24 - CONCLUSION: A moderate to large right pleural effusion is confirmed sonographically and marked for thoracentesis. Hector Pierre MD Chest CT 10/16/17 0000 Signed Impressions: Service Date/Time: October 20:14 - CONCLUSION: Moderate-sized bilateral pleural effusions with adjacent compressive atelectasis and/or pneumonia. Scattered increased interstitial infiltrates within the perihilar regions and upper lobes bilaterally raising the possibility of pulmonary vascular congestion. Cardiomegaly and coronary artery calcifications are noted. Mild pretracheal and AP window mediastinal lymphadenopathy which is nonspecific. Degenerative changes and mild scoliosis of the thoracic spine. Hector Pierre MD Aspiration 10/16/17 0000 Signed Impressions: Service Date/Time: October 15:48 - CONCLUSION: Uncomplicated aspiration as above. Chetan Escobedo MD Abdomen/Pelvis CT 10/16/17 0000 Signed Impressions: Service Date/Time: October 20:14 - CONCLUSION: 1. Moderate-sized bilateral pleural effusions with adjacent consolidations consistent with atelectasis and/or pneumonia. 2. Tiny calcified nonobstructing bilateral renal calculi. 3. Mild hepatosplenomegaly. 4. Uncomplicated colonic diverticulosis. 5. Minimal free fluid within the pelvis. 6. Streakiness and fluid within the bilateral retroperitoneum inferior to the kidneys and extending into the presacral region. 7. Degenerative changes and scoliosis of the thoracolumbar spine. Hector Pierre MD Knee X-Ray 10/15/17 0000 Signed Impressions: Service Date/Time: Sunday, October 15, 2017 15:26 - CONCLUSION: Large joint effusion otherwise negative. Tu Lim MD FACR Carotid Artery Ultrasound 10/13/17 0000 Signed Impressions: Service Date/Time: Friday, October 13, 2017 16:12 - CONCLUSION: No evidence of flow-limiting carotid stenosis. Wm Riley MD Aorta w/Runoff CTA 10/13/17 0000 Signed Impressions: Service Date/Time: Friday, October 13, 2017 22:41 - CONCLUSION: 1. No aortic occlusive disease. 2. No significant iliac inflow stenosis. 3. No significant outflow stenosis. 4. Diffuse bilateral runoff disease with heavily calcified tibial arteries and significant venous contamination precluding patency evaluation beyond the very proximal calf. 5. Small to moderate bilateral pleural effusions with associated airspace disease at the lung bases, presumably atelectasis. 6. Trace free fluid in the deep pelvis. 7. Ancillary findings include hepatic steatosis, nonobstructing punctate calyceal calculus in the inferior pole of the left kidney and small suprapatellar right joint effusion. Lupillo Webster MD Objective Remarks General: No acute distress. Heart: Regular rate and rhythm. No murmur. Lungs: Mild scattered rhonchi. Breathing is nonlabored. Abdomen: Soft, nontender, nondistended. Extremities: No lower extremity edema. Right foot wounds bandaged. Wound vac in place. Psych: Alert and oriented. Procedures 10/08/17 Right foot and ankle incision drainage, 5th metatarsal resection, 5th digit amputation 10/25/17 Incision and drainage Right foot/ankle abscess with bone biopsy right 4th metatarsal base; wound vac placement Urinary Catheter: No Vascular Central Line Catheter: No A/P Problem List: (1) Osteomyelitis of foot ICD Code: M86.9 - Osteomyelitis, unspecified (2) Leukocytosis ICD Code: D72.829 - Elevated white blood cell count, unspecified (3) Dehydration with hyponatremia ICD Code: E87.1 - Hypo-osmolality and hyponatremia (4) Acute kidney injury ICD Code: N17.9 - Acute kidney failure, unspecified (5) Sepsis ICD Code: A41.9 - Sepsis, unspecified organism Status: Acute (6) Diabetic foot ulcer ICD Code: E11.621 - Type 2 diabetes mellitus with foot ulcer; L97.509 - Non- pressure chronic ulcer of other part of unspecified foot with unspecified severity Status: Acute (7) Acute renal failure superimposed on stage 3 chronic kidney disease ICD Code: N17.9 - Acute kidney failure, unspecified; N18.3 - Chronic kidney disease, stage 3 (moderate) (8) Bacteremia due to Gram-positive bacteria ICD Code: R78.81 - Bacteremia (9) Postoperative anemia ICD Code: D64.9 - Anemia, unspecified Assessment and Plan 1. Sepsis: Secondary to diabetic foot infection, bacteremia, right foot osteomyelitis: Appreciate infectious disease recommendations. Continue antibiotics (Rocephin, Levaquin, Zyvox). Wound culture growing staph and strep not A/B/D. Still having fever, possibly secondary to foot infection. New cultures obtained in surgery today. 2. Right foot osteomyelitis: Appreciate podiatry recommendations. Status post incision and drainage, fifth metatarsal resection, fifth digit amputation on . Podiatry is recommending IV antibiotics on discharge. Final antibiotic recommendations per infectious disease. Continue wound care, Santyl ointment. MRIs are pending. S/P irrigation/debridement with wound vac placement today. 3. Right knee effusion: Continue antibiotics. Appreciate orthopedic surgery recommendations. No surgical intervention planned at this point. 4. Bilateral pleural effusion: Appreciate pulmonology recommendations. Status post right-sided thoracentesis. Cytology is negative for malignant cells. 5. Peripheral vascular disease: Appreciate vascular surgery recommendations. Per vascular surgery, no surgical intervention is planned. 6. Postoperative anemia: Received transfusion of 2 units PRBCs. Monitor H&H. 7. Diabetes mellitus type 2: Continue Levemir. Monitor Accu-Cheks and cover with sliding scale insulin. Continue preprandial insulin as well. 8. Acute kidney injury superimposed on chronic kidney disease stage III: Improved. Avoid nephrotoxins. 9. Hypokalemia: Improved. 10. DVT prophylaxis: Heparin. Discharge Planning Pending further clinical improvement. Problem Qualifiers (1) Sepsis: Qualified Codes: A41.9 - Sepsis, unspecified organism (2) Diabetic foot ulcer: Qualified Codes: E10.621 - Type 1 diabetes mellitus with foot ulcer; L97.419 - Non-pressure chronic ulcer of right heel and midfoot with unspecified severity Siddharth Lane MD Oct 25, 2017 13:36
[2017-10-25 16:00] VITALS: BP 121/63; PULSE 92; RESP 18; TEMP 98.2; O2SAT 95
[2017-10-25 20:00] VITALS: BP 134/75; PULSE 100; RESP 20; TEMP 98.4; O2SAT 98
[2017-10-25] MEDS: INSULIN DETEMIR 100 UNITS/ML VIAL SQ SCH (20:55)
[2017-10-25] MEDS: TEMAZEPAM 15 MG CAP PO PRN (22:37)
[2017-10-26] VITALS: PULSE 92; RESP 20; TEMP 98; O2SAT 96
[2017-10-26] MEDS: MORPHINE SULFATE 4 MG/ML INJ IV PUSH PRN ×3 (01:47→19:03)
[2017-10-26 04:00] VITALS: BP 140/78; PULSE 93; RESP 20; TEMP 97.9; O2SAT 96
[2017-10-26] MEDS: ACETAMINOPHEN/HYDROcodone 325 MG/7.5 MG TAB PO PRN ×3 (04:41→18:08)
[2017-10-26 08:00] VITALS: BP 122/64; PULSE 100; RESP 16; TEMP 98.3; O2SAT 96
[2017-10-26] MEDS: INSULIN ASPART SUPPLEMENTAL SCALE SQ SCH ×3 (08:08→20:51)
[2017-10-26] MEDS: INSULIN ASPART 1,000 UNITS/10 ML VIAL SQ SCH ×3 (08:08→18:08)
[2017-10-26] MEDS: LACTOBACILLUS ACIDOPHILUS TAB PO SCH ×2 (08:08→20:53)
[2017-10-26] MEDS: LINEZOLID 600 MG TAB PO SCH ×2 (08:08→20:53)
[2017-10-26] MEDS: LEVOFLOXACIN 500 MG TAB PO SCH (08:08)
[2017-10-26] MEDS: GABAPENTIN 300 MG CAP PO SCH ×3 (08:08→18:08)
[2017-10-26] MEDS: SODIUM CHLORIDE 0.9% FLUSH 10 ML FLUSH IV FLUSH SCH ×2 (08:09→20:54)
[2017-10-26] MEDS: COLLAGENASE OINT 30 GM TUBE TOPICAL SCH (08:09)
[2017-10-26 08:42] LABS: AUTOMATED NEUTROPHIL # 5.2 TH/MM3 (1.8-7.7); BASOPHIL % 0.3 % (0.0-2.0); EOSINOPHIL % 0.7 % (0.0-4.0); HEMATOCRIT 22.7 % (39.0-51.0); HEMOGLOBIN 7.8 GM/DL (13.0-17.0); LYMPH % 16.8 % (9.0-44.0); LYMPHOCYTE # 1.2 TH/MM3 (1.0-4.8); MEAN CELL VOLUME 81.9 FL (80.0-100.0); MEAN CORPUSCULAR HEMOGLOBIN 28.1 PG (27.0-34.0); MEAN CORPUSCULAR HGB CONC 34.3 % (32.0-36.0); MONO % 10.4 % (0.0-8.0); MONOCYTE # 0.8 TH/MM3 (0-0.9); NEUT % 71.8 % (16.0-70.0); PLATELET COUNT 237 TH/MM3 (150-450); RED BLOOD COUNT 2.77 MIL/MM3 (4.50-5.90); RED CELL DISTRIBUTION WIDTH 14.6 % (11.6-17.2); WHITE BLOOD COUNT 7.3 TH/MM3 (4.0-11.0)
[2017-10-26 09:12] LABS: BICARBONATE 29.5 MEQ/L (21.0-32.0); CALCIUM 8.6 MG/DL (8.5-10.1); CREATININE 1.33 MG/DL (0.60-1.30)
--- NOTE | 2017-10-26 09:26 | HHI.PR ---
Subjective Remarks Follow up osteomyelitis, fever, diabetes. The patient states that he feels much better today. Denies chest pain, dyspnea. Pain is well controlled. No nausea/ vomiting. Objective Vitals Vital Signs Date Time Temp Pulse Resp B/P (MAP) Pulse Ox O2 Delivery O2 Flow Rate FiO2 10/26/17 08:00 98.3 100 16 122/64 (83) 96 10/26/17 04:00 97.9 93 20 140/78 (98) 96 10/26/17 04:00 Nasal Cannula 2.00 10/26/17 00:00 98.0 92 20 96 10/26/17 00:00 Nasal Cannula 2.00 10/25/17 20:00 98.4 100 20 134/75 (94) 98 10/25/17 20:00 Nasal Cannula 2.00 10/25/17 16:00 98.2 92 18 121/63 (82) 95 10/25/17 12:00 98.2 100 18 110/60 (77) 95 10/25/17 09:45 98.1 96 14 133/67 (89) 96 Nasal Cannula 2 10/25/17 09:30 94 14 143/69 (93) 96 Nasal Cannula 2 10/25/17 09:24 99.1 93 14 112/61 (78) 96 Nasal Cannula 2 I/O 10/25/17 10/25/17 10/25/17 10/26/17 10/26/17 10/26/17 07:00 15:00 23:00 07:00 15:00 23:00 Intake Total 480 ml 650 ml Output Total 725 ml Balance -245 ml 650 ml Intake Oral 480 ml Other 650 ml Output Urine Total 725 ml # Bowel Movements 1 Result Diagram: 10/26/17 0635 10/26/17 0635 Imaging Last Impressions Foot MRI 10/24/17 0000 Signed Impressions: Service Date/Time: Tuesday, October 24, 2017 10:08 - CONCLUSION: 1. Marrow edema and mild marrow enhancement in the proximal fourth metatarsal suspicious for an early osteomyelitis. 2. Complex fluid collection in the lateral foot near the base of the fourth metatarsal, probably an abscess with surrounding cellulitis. 3. Extensive marrow edema in the midfoot as above, probably reactive. Patchy low signal in the navicular and cuboid may indicate some avascular necrosis. 4. Postoperative resection of the fifth toe and fifth metatarsal. Francisco Grider MD Ankle MRI 10/24/17 0000 Signed Impressions: Service Date/Time: Tuesday, October 24, 2017 10:08 - CONCLUSION: 1. No definite evidence for osteomyelitis around the right ankle. Marrow edema however has increased slightly since the prior exam, probably reactive and possibly associated with a developing Charcot arthropathy. Low signal patchy areas within the tarsal navicular are suspicious for developing avascular necrosis. There is edema in the soft tissues of the hindfoot. Trace joint fluid. Francisco Grider MD Foot X-Ray 10/23/17 0000 Signed Impressions: Service Date/Time: October 17:15 - CONCLUSION: 1. 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 Lupillo Webster MD Chest X-Ray 10/22/17 0000 Signed Impressions: Service Date/Time: Sunday, October 22, 2017 09:07 - CONCLUSION: 1. Bilateral infiltrates and effusion. The exam has worsen when compared to previous dated 10/20/17. Raghavendra Lim MD Thoracentesis Ultrasound 10/20/17 0600 Signed Impressions: Service Date/Time: Friday, October 20, 2017 13:03 - CONCLUSION: Uncomplicated ultrasound guided thoracentesis. Smooth Saucedo MD Chest Ultrasound 10/17/17 0000 Signed Impressions: Service Date/Time: Tuesday, October 17, 2017 20:24 - CONCLUSION: A moderate to large right pleural effusion is confirmed sonographically and marked for thoracentesis. Hector Pierre MD Chest CT 10/16/17 0000 Signed Impressions: Service Date/Time: October 20:14 - CONCLUSION: Moderate-sized bilateral pleural effusions with adjacent compressive atelectasis and/or pneumonia. Scattered increased interstitial infiltrates within the perihilar regions and upper lobes bilaterally raising the possibility of pulmonary vascular congestion. Cardiomegaly and coronary artery calcifications are noted. Mild pretracheal and AP window mediastinal lymphadenopathy which is nonspecific. Degenerative changes and mild scoliosis of the thoracic spine. Hector Pierre MD Aspiration 10/16/17 0000 Signed Impressions: Service Date/Time: October 15:48 - CONCLUSION: Uncomplicated aspiration as above. Chetan Escobedo MD Abdomen/Pelvis CT 10/16/17 0000 Signed Impressions: Service Date/Time: October 20:14 - CONCLUSION: 1. Moderate-sized bilateral pleural effusions with adjacent consolidations consistent with atelectasis and/or pneumonia. 2. Tiny calcified nonobstructing bilateral renal calculi. 3. Mild hepatosplenomegaly. 4. Uncomplicated colonic diverticulosis. 5. Minimal free fluid within the pelvis. 6. Streakiness and fluid within the bilateral retroperitoneum inferior to the kidneys and extending into the presacral region. 7. Degenerative changes and scoliosis of the thoracolumbar spine. Hector Pierre MD Knee X-Ray 10/15/17 0000 Signed Impressions: Service Date/Time: Sunday, October 15, 2017 15:26 - CONCLUSION: Large joint effusion otherwise negative. Tu Lim MD FACR Carotid Artery Ultrasound 10/13/17 0000 Signed Impressions: Service Date/Time: Friday, October 13, 2017 16:12 - CONCLUSION: No evidence of flow-limiting carotid stenosis. Wm Riley MD Aorta w/Runoff CTA 10/13/17 0000 Signed Impressions: Service Date/Time: Friday, October 13, 2017 22:41 - CONCLUSION: 1. No aortic occlusive disease. 2. No significant iliac inflow stenosis. 3. No significant outflow stenosis. 4. Diffuse bilateral runoff disease with heavily calcified tibial arteries and significant venous contamination precluding patency evaluation beyond the very proximal calf. 5. Small to moderate bilateral pleural effusions with associated airspace disease at the lung bases, presumably atelectasis. 6. Trace free fluid in the deep pelvis. 7. Ancillary findings include hepatic steatosis, nonobstructing punctate calyceal calculus in the inferior pole of the left kidney and small suprapatellar right joint effusion. Lupillo Webster MD Objective Remarks General: No acute distress. Heart: Regular rate and rhythm. No murmur. Lungs: Mild scattered rhonchi. Breathing is nonlabored. Abdomen: Soft, nontender, nondistended. Extremities: No lower extremity edema. Right foot wounds bandaged. Wound vac in place. Psych: Alert and oriented. Procedures 10/08/17 Right foot and ankle incision drainage, 5th metatarsal resection, 5th digit amputation 10/25/17 Incision and drainage Right foot/ankle abscess with bone biopsy right 4th metatarsal base; wound vac placement Urinary Catheter: No Vascular Central Line Catheter: No A/P Problem List: (1) Osteomyelitis of foot ICD Code: M86.9 - Osteomyelitis, unspecified (2) Leukocytosis ICD Code: D72.829 - Elevated white blood cell count, unspecified (3) Dehydration with hyponatremia ICD Code: E87.1 - Hypo-osmolality and hyponatremia (4) Acute kidney injury ICD Code: N17.9 - Acute kidney failure, unspecified (5) Sepsis ICD Code: A41.9 - Sepsis, unspecified organism Status: Acute (6) Diabetic foot ulcer ICD Code: E11.621 - Type 2 diabetes mellitus with foot ulcer; L97.509 - Non- pressure chronic ulcer of other part of unspecified foot with unspecified severity Status: Acute (7) Acute renal failure superimposed on stage 3 chronic kidney disease ICD Code: N17.9 - Acute kidney failure, unspecified; N18.3 - Chronic kidney disease, stage 3 (moderate) (8) Bacteremia due to Gram-positive bacteria ICD Code: R78.81 - Bacteremia (9) Postoperative anemia ICD Code: D64.9 - Anemia, unspecified Assessment and Plan 1. Sepsis: Secondary to diabetic foot infection, bacteremia, right foot osteomyelitis: Appreciate infectious disease recommendations. Continue antibiotics (Rocephin, Levaquin, Zyvox). Wound culture growing staph and strep not A/B/D. Still having fever, possibly secondary to foot infection. New cultures obtained in surgery are pending. 2. Right foot osteomyelitis: Appreciate podiatry recommendations. Status post incision and drainage, fifth metatarsal resection, fifth digit amputation on . Podiatry is recommending IV antibiotics on discharge. Final antibiotic recommendations per infectious disease. Continue wound care. S/P irrigation/ debridement with wound vac placement 10/25/17. 3. Right knee effusion: Improving. Continue antibiotics. Appreciate orthopedic surgery recommendations. No surgical intervention planned at this point. 4. Bilateral pleural effusion: Appreciate pulmonology recommendations. Status post right-sided thoracentesis. Cytology is negative for malignant cells. 5. Peripheral vascular disease: Appreciate vascular surgery recommendations. Per vascular surgery, no surgical intervention is planned. 6. Postoperative anemia: Received transfusion of 2 units PRBCs. Monitor H&H. 7. Diabetes mellitus type 2: Continue Levemir. Monitor Accu-Cheks and cover with sliding scale insulin. Continue preprandial insulin as well. 8. Acute kidney injury superimposed on chronic kidney disease stage III: Creatinine slightly increased today. Monitor labs. Avoid nephrotoxins. 9. Hypokalemia: Improved. 10. DVT prophylaxis: Heparin. Discharge Planning Pending further clinical improvement. Problem Qualifiers (1) Sepsis: Qualified Codes: A41.9 - Sepsis, unspecified organism (2) Diabetic foot ulcer: Qualified Codes: E10.621 - Type 1 diabetes mellitus with foot ulcer; L97.419 - Non-pressure chronic ulcer of right heel and midfoot with unspecified severity Siddharth Lane MD Oct 26, 2017 09:26
[2017-10-26 12:00] VITALS: BP 133/72; PULSE 94; RESP 16; TEMP 98; O2SAT 97
[2017-10-26] MEDS: cefTRIAXone INJ 2,000 MG in SODIUM CHLORIDE 0.9% INJ 100 ML IV SCH (13:23)
[2017-10-26 16:00] VITALS: BP 134/77; PULSE 97; RESP 15; TEMP 98.4; O2SAT 95
--- NOTE | 2017-10-26 16:12 | HHI.IDPN ---
Subjective Subjective Remarks ID COVERAGE Mr. Braxton is a 57-year-old male with past medical history significant for diabetes type 2, prior diabetic foot ulcer treated in October 2016 thereafter was hospitalized from May 08, 2017 to May 29, 2017 due to foot ulcer. During that hospitalization patient underwent surgical debridement with wound VAC placement. Patient reports that he was seen by Dr. Pritchard during that admission. Patient reports that he was discharged on IV ceftriaxone using a PICC line. Patient had home health care visits him and continue to receive wound VAC changes at home. He also was subsequently seen at wound care clinic for ongoing wound care as well as [facility] for his primary care needs. Patient reports that his medications were recently adjusted and a new insulin was introduced. Patient reports that he was diagnosed with a possible staph or strep infection and has been on oral Bactrim approximately 2 weeks prior to admission. Due to worsening foot infection as well as possible reaction to the new insulin patient presented to the emergency department [facility]. Patient reports that he was having fevers, chills, loss of appetite and diarrhea for the past 2 days associated with frequent urination. Patient denies any dysuria. He reports dizziness and reported history of falls 3 days ago while on the toilet. Patient's reports that she was unaware of this history of fall. He denies any head injury. Patient reports hitting his right foot and shoulder but that he was able to get off the floor by himself. Patient had a sepsis workup initiated on admission. Wound cultures are positive for strep as well as blood cultures are now positive for gram-positive likely strep. Repeat blood cultures have been ordered. Podiatry is seeing the patient and there is a plan for surgical intervention and possible amputation of the involved digit. Infectious disease is consulted for evaluation and management of right fifth toe osteomyelitis with associated cellulitis, gram-positive bacteremia and sepsis. S/p amputation 5th toe and 5thMT foot and blood clx + MSSA and strep + osteo extending to margins Notes reviewed Temp better Feels better Foot pain better C/S OR pending; G/S GPC No rash No diarrhea ECHO no veg's. Antibiotics Current Medications Rocephin Levaquin Zyvox Medications (Trade) Dose Ordered Sig/Anna Route Start Time Stop Time Status Last Admin (NS Flush) 2 ml UNSCH PRN IV FLUSH 2/20/18 16:45 10/21/17 23:13 (NS Flush) 2 ml BID IV FLUSH 10/07/17 21:00 10/26/17 08:09 (Narcan Inj) 0.4 mg UNSCH PRN IV PUSH 10/07/17 16:45 (D50w (Vial) Inj) 50 ml UNSCH PRN IV PUSH 10/08/17 10:30 (Glucagon Inj) 1 mg UNSCH PRN OTHER 10/08/17 10:30 (NovoLOG SUPPLEMENTAL SCALE) 1 ACHS SLIDING SCALE SQ 10/08/17 12:00 10/26/17 08:08 (Lactinex) 1 tab Q12HR PO 10/08/17 21:00 10/26/17 08:08 (NovoLOG INJ) 5 units TIDAC SQ 10/12/17 08:00 10/26/17 13:27 (Levemir Inj) 15 units HS SQ 10/12/17 21:00 10/25/17 20:55 ([place] 7.5-325 Mg) 1 tab Q6H PRN PO 10/13/17 12:45 10/26/17 11:35 (Morphine Inj) 5 mg Q4H PRN IV PUSH 10/13/17 12:45 10/25/17 13:26 (Morphine Inj) 4 mg Q3H PRN IV PUSH 10/13/17 12:45 10/26/17 13:24 (Restoril) 15 mg HS PRN PO 10/13/17 12:45 10/25/17 22:37 (Tylenol) 500 mg Q4H PRN PO 10/13/17 13:15 10/22/17 13:38 Ceftriaxone Sodium 2000 mg/ Sodium Chloride 100 ml @ 200 mls/hr Q24H IV 10/13/17 14:00 10/26/17 13:23 (Levaquin) 500 mg DAILY PO 10/14/17 17:00 10/26/17 08:08 (Santyl Oint) 1 applic DAILY TOPICAL 10/22/17 12:00 10/26/17 08:09 (Neurontin) 600 mg TID PO 10/23/17 18:00 10/26/17 13:23 (Zyvox) 600 mg Q12HR PO 10/23/17 21:00 10/26/17 08:08 Lines Line sites with no e.o infection Past Medical History Past Medical History DM II Right foot ulcer with possible osteomyelitis in the past. Has received IV antibiotics long-term using a PICC line in the past. Renal stones Past Surgical History Right foot debridement of wound removal of kidney stones Tonsillitis Allergies: Coded Allergies: No Known Allergies (Unverified Adverse Reaction, Unknown, 09/15/17) Uncoded Allergies: micronesian dressing (Allergy, Severe, Anaphylaxis, 10/07/17) Objective . Vital Signs Date Time Temp Pulse Resp B/P (MAP) Pulse Ox O2 Delivery O2 Flow Rate FiO2 10/26/17 12:00 98.0 94 16 133/72 (92) 97 10/26/17 08:00 98.3 100 16 122/64 (83) 96 10/26/17 04:00 97.9 93 20 140/78 (98) 96 10/26/17 04:00 Nasal Cannula 2.00 10/26/17 00:00 98.0 92 20 96 10/26/17 00:00 Nasal Cannula 2.00 10/25/17 20:00 98.4 100 20 134/75 (94) 98 10/25/17 20:00 Nasal Cannula 2.00 . Laboratory Tests Test 10/25/17 05:15 10/26/17 06:35 White Blood Count 6.0 TH/MM3 7.3 TH/MM3 Red Blood Count 2.91 MIL/MM3 2.77 MIL/MM3 Hemoglobin 8.1 GM/DL 7.8 GM/DL Hematocrit 23.9 % 22.7 % Mean Corpuscular Volume 82.2 FL 81.9 FL Mean Corpuscular Hemoglobin 27.9 PG 28.1 PG Mean Corpuscular Hemoglobin Concent 33.9 % 34.3 % Red Cell Distribution Width 14.9 % 14.6 % Platelet Count 222 TH/MM3 237 TH/MM3 Mean Platelet Volume 7.0 FL 7.0 FL Neutrophils (%) (Auto) 68.2 % 71.8 % Lymphocytes (%) (Auto) 18.2 % 16.8 % Monocytes (%) (Auto) 11.5 % 10.4 % Eosinophils (%) (Auto) 1.3 % 0.7 % Basophils (%) (Auto) 0.8 % 0.3 % Neutrophils # (Auto) 4.1 TH/MM3 5.2 TH/MM3 Lymphocytes # (Auto) 1.1 TH/MM3 1.2 TH/MM3 Monocytes # (Auto) 0.7 TH/MM3 0.8 TH/MM3 Eosinophils # (Auto) 0.1 TH/MM3 0.0 TH/MM3 Basophils # (Auto) 0.0 TH/MM3 0.0 TH/MM3 CBC Comment DIFF FINAL DIFF FINAL Differential Comment Laboratory Tests Test 10/25/17 05:15 10/26/17 06:35 Blood Urea Nitrogen 20 MG/DL 25 MG/DL Creatinine 1.16 MG/DL 1.33 MG/DL Random Glucose 216 MG/DL 187 MG/DL Calcium Level 8.5 MG/DL 8.6 MG/DL Sodium Level 134 MEQ/L 133 MEQ/L Potassium Level 4.0 MEQ/L 4.1 MEQ/L Chloride Level 96 MEQ/L 96 MEQ/L Carbon Dioxide Level 31.1 MEQ/L 29.5 MEQ/L Anion Gap 7 MEQ/L 8 MEQ/L Estimat Glomerular Filtration Rate 64 ML/MIN 55 ML/MIN Microbiology Date/Time Source Procedure Growth Status 10/24/17 21:31 Blood Peripheral Aerobic Blood Culture - Preliminary NO GROWTH IN 2 DAYS Resulted 10/24/17 21:31 Blood Peripheral Anaerobic Blood Culture - Preliminary NO GROWTH IN 2 DAYS Resulted 10/24/17 21:25 Blood Peripheral Aerobic Blood Culture - Preliminary NO GROWTH IN 2 DAYS Resulted 10/24/17 21:25 Blood Peripheral Anaerobic Blood Culture - Preliminary NO GROWTH IN 2 DAYS Resulted 10/25/17 08:55 Wound Foot Fungal Smear - Final NO FUNGAL ELEMENTS SEEN. Resulted 10/25/17 08:55 Wound Foot Fungal Culture Pending Resulted 10/25/17 08:55 Wound Foot Acid Fast Stain Pending Received 10/25/17 08:55 Wound Foot Mycobacterial Culture Pending Received 10/25/17 08:55 Wound Foot Gram Stain - Final Resulted 10/25/17 08:55 Wound Foot Wound Culture - Preliminary Resulted Imaging Foot X-Ray 10/23/17 0000 Signed Impressions: Service Date/Time: October 17:15 - CONCLUSION: 1. 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 Lupillo Webster MD Chest X-Ray 10/22/17 0000 Signed Impressions: Service Date/Time: Sunday, October 22, 2017 09:07 - CONCLUSION: 1. Bilateral infiltrates and effusion. The exam has worsen when compared to previous dated 10/20/17. Raghavendra Lim MD Thoracentesis Ultrasound 10/20/17 0600 Signed Impressions: Service Date/Time: Friday, October 20, 2017 13:03 - CONCLUSION: Uncomplicated ultrasound guided thoracentesis. Smooth Saucedo MD Chest Ultrasound 10/17/17 0000 Signed Impressions: Service Date/Time: Tuesday, October 17, 2017 20:24 - CONCLUSION: A moderate to large right pleural effusion is confirmed sonographically and marked for thoracentesis. Hector Pierre MD Chest CT 10/16/17 0000 Signed Impressions: Service Date/Time: October 20:14 - CONCLUSION: Moderate-sized bilateral pleural effusions with adjacent compressive atelectasis and/or pneumonia. Scattered increased interstitial infiltrates within the perihilar regions and upper lobes bilaterally raising the possibility of pulmonary vascular congestion. Cardiomegaly and coronary artery calcifications are noted. Mild pretracheal and AP window mediastinal lymphadenopathy which is nonspecific. Degenerative changes and mild scoliosis of the thoracic spine. Hector Pierre MD Aspiration 10/16/17 0000 Signed Impressions: Service Date/Time: October 15:48 - CONCLUSION: Uncomplicated aspiration as above. Chetan Escobedo MD Abdomen/Pelvis CT 10/16/17 0000 Signed Impressions: Service Date/Time: October 20:14 - CONCLUSION: 1. Moderate-sized bilateral pleural effusions with adjacent consolidations consistent with atelectasis and/or pneumonia. 2. Tiny calcified nonobstructing bilateral renal calculi. 3. Mild hepatosplenomegaly. 4. Uncomplicated colonic diverticulosis. 5. Minimal free fluid within the pelvis. 6. Streakiness and fluid within the bilateral retroperitoneum inferior to the kidneys and extending into the presacral region. 7. Degenerative changes and scoliosis of the thoracolumbar spine. Hector Pierre MD Knee X-Ray 10/15/17 0000 Signed Impressions: Service Date/Time: Sunday, October 15, 2017 15:26 - CONCLUSION: Large joint effusion otherwise negative. Tu iLm MD FACR Carotid Artery Ultrasound 10/13/17 0000 Signed Impressions: Service Date/Time: Friday, October 13, 2017 16:12 - CONCLUSION: No evidence of flow-limiting carotid stenosis. Wm Riley MD Aorta w/Runoff CTA 10/13/17 0000 Signed Impressions: Service Date/Time: Friday, October 13, 2017 22:41 - CONCLUSION: 1. No aortic occlusive disease. 2. No significant iliac inflow stenosis. 3. No significant outflow stenosis. 4. Diffuse bilateral runoff disease with heavily calcified tibial arteries and significant venous contamination precluding patency evaluation beyond the very proximal calf. 5. Small to moderate bilateral pleural effusions with associated airspace disease at the lung bases, presumably atelectasis. 6. Trace free fluid in the deep pelvis. 7. Ancillary findings include hepatic steatosis, nonobstructing punctate calyceal calculus in the inferior pole of the left kidney and small suprapatellar right joint effusion. Lupillo Webster MD Foot MRI 10/12/17 0000 Signed Impressions: Service Date/Time: Thursday, October 12, 2017 08:31 - CONCLUSION: 1. No areas of suspected osteomyelitis. 2. Superficial soft tissue swelling over the third and fourth metatarsals. There is also some edema within the plantar musculature. Wm Dupree MD Ankle MRI 10/11/17 0000 Signed Impressions: Service Date/Time: Wednesday, October 11, 2017 09:41 - CONCLUSION: 1. No definite areas of osteomyelitis. There is some edema within the lateral cuboid adjacent to the suspected surgical defect which is likely reactive. T1 signal is maintained. 2. Multiple areas of focal edema within the midfoot mainly related to the subarticular regions likely related to underlying arthritic change. 3. The patient appears to be status post resection of the fifth metatarsal with post surgical change at the lateral hind and midfoot and a small focus of air seen adjacent to the calcaneus. Wm Dupree MD Physical Exam GENERAL: awake and alert, NAD SKIN: Cool and dry. No generalized rash HEAD: Atraumatic. Normocephalic. No temporal or scalp tenderness. EYES: Pupils equal round and reactive. Extraocular motions intact. No scleral icterus. No injection or drainage. ENT: Nose without bleeding, purulent drainage. Moist mucosa, no lesions NECK: Trachea midline.Supple, nontender, no meningeal signs. CARDIOVASCULAR: Heart sounds audible. RESPIRATORY: basilar crackles. Breath sounds decreased bilateral bases. GASTROINTESTINAL: Abdomen soft, non-tender, nondistended. MUSCULOSKELETAL: Right foot with dry and intact dressing. Left foot in dressing. NEUROLOGICAL: Awake and alert. Nonfocal exam Psych cooperative IV line sites with no evidence of infection. Assessment & Plan Remarks Sepsis present on admission Strep bacteremia secondary to right foot osteomyelitis and cellulitis Staph MSSA bacteremia high grade. Strep not AB,D and Staph infection Right foot fifth MPJ osteomyelitis Right foot cellulitis Pneumonia with bilateral pleural effusions ? HCAP vs septic emboli. Right knee septic arthritis. Diabetes type 2 uncontrolled Acute renal failure: Sepsis, prerenal: improving Fevers, better Recommendations: Continue Ceftriaxone (BCX were negative at 4 days and no clinical e/o failure prior to switch) Continue Levaquin for broadening GNR coverage and also atypical PNA coverage. Concern the lung infiltrates could be septic emboli. Continue Zyvox IV (MRSA PNA and MRSA new HCA infection coverage, additionally helps with toxin neutralization for Strep) Follow new C/S and adjust Abx Repeat CXR to fup infiltrates Monitor progress Follow Marci Montalvo MD Oct 26, 2017 16:11
[2017-10-26 20:00] VITALS: BP 150/79; PULSE 107; RESP 18; TEMP 100; O2SAT 95
[2017-10-26] MEDS: INSULIN DETEMIR 100 UNITS/ML VIAL SQ SCH (20:54)
--- NOTE | 2017-10-26 22:09 | PD.POD ---
Subjective Podiatric Problems Right foot /ankle infection, s/p I&D R foot/ankle with 5th metatarsal and toe resection Dede 10/08/17 s/p I&D with wound vac right foot/ankle Popelka 10/15/17 s/p I&D with bone biopsy right 4th metatarsal Rozina 10/25/17 Pain score: 3 Past Med/Surg/Social History Past Medical History Endocrine: REPORTS HX OF: Diabetes mellitus Genitourinary: REPORTS HX OF: Other history (Kidney stones ) Past Surgical History Musculoskeletal: REPORTS HX OF: Other musculoskeletal srg (Right foot 5th metatarsal I&D) Social History Smoking Status: Former Smoker Objective Vital Signs Vital Signs Date Time Temp Pulse Resp B/P (MAP) Pulse Ox O2 Delivery O2 Flow Rate FiO2 10/26/17 16:00 98.4 97 15 134/77 (96) 95 10/26/17 12:00 98.0 94 16 133/72 (92) 97 10/26/17 08:00 98.3 100 16 122/64 (83) 96 10/26/17 08:00 Nasal Cannula 2.00 10/26/17 04:00 97.9 93 20 140/78 (98) 96 10/26/17 04:00 Nasal Cannula 2.00 10/26/17 00:00 98.0 92 20 96 10/26/17 00:00 Nasal Cannula 2.00 Coded Allergies: No Known Allergies (Unverified Adverse Reaction, Unknown, 09/15/17) Uncoded Allergies: namibian dressing (Allergy, Severe, Anaphylaxis, 10/07/17) Exam-Podiatry Remarks vac intact and functioning right foot Assessment & Plan A/P Right foot /ankle infection, s/p I&D R foot/ankle with 5th metatarsal and toe resection Dede 10/08/17 s/p I&D with wound vac right foot/ankle Popel[place] 10/15/17 s/p I&D right foot/ankle with bone biopsy right 4th metatarsal Await bone biopsy results Continue wound vac as ordered Heidi Handy DPM Oct 26, 2017 22:09
[2017-10-26] MEDS: MORPHINE SULFATE 8 MG/ML INJ IV PUSH PRN (22:33)
[2017-10-27] VITALS: BP 142/80; PULSE 102; RESP 18; TEMP 97.8; O2SAT 91
[2017-10-27] MEDS: ACETAMINOPHEN/HYDROcodone 325 MG/7.5 MG TAB PO PRN ×3 (00:29→19:55)
[2017-10-27] MEDS: MORPHINE SULFATE 8 MG/ML INJ IV PUSH PRN ×4 (02:50→23:09)
--- NOTE | 2017-10-27 06:22 | RADRPT ---
EXAM DATE/TIME: 10/27/2017 05:16 [place] COMPARISON: CHEST SINGLE AP, October 22, 2017, 9:07. INDICATIONS : Shortness of breath. MEDICAL HISTORY : Diabetes mellitus type 2. Renal calculi. SURGICAL HISTORY : None. ENCOUNTER: Initial ACUITY: 4 - 6 days PAIN SCORE: 0/10 LOCATION: Bilateral chest FINDINGS: Single portable frontal view of the chest shows bibasilar consolidation more pronounced on the left. Patchy areas of parenchymal consolidation scattered throughout the upper lobes. The appearance is sta ble. No effusions. Heart mildly enlarged. CONCLUSION: Unchanged patchy areas of consolidation throughout both lungs. Elías Lobo Jr., MD on October 27, 2017 at 6:20 Board Certified Radiologist. This report was verified electronically.
[2017-10-27 08:04] VITALS: BP 133/72; PULSE 72; RESP 16; TEMP 98.1; O2SAT 93
[2017-10-27 08:13] LABS: AUTOMATED NEUTROPHIL # 4.4 TH/MM3 (1.8-7.7); BASOPHIL % 0.5 % (0.0-2.0); EOSINOPHIL # 0.1 TH/MM3 (0-0.4); EOSINOPHIL % 2.1 % (0.0-4.0); HEMATOCRIT 23.5 % (39.0-51.0); HEMOGLOBIN 7.9 GM/DL (13.0-17.0); LYMPH % 16.7 % (9.0-44.0); LYMPHOCYTE # 1.1 TH/MM3 (1.0-4.8); MEAN CORPUSCULAR HGB CONC 33.8 % (32.0-36.0); MEAN PLATELET VOLUME 7.2 FL (7.0-11.0); MONO % 13.6 % (0.0-8.0); MONOCYTE # 0.9 TH/MM3 (0-0.9); NEUT % 67.1 % (16.0-70.0); PLATELET COUNT 219 TH/MM3 (150-450); RED BLOOD COUNT 2.83 MIL/MM3 (4.50-5.90); RED CELL DISTRIBUTION WIDTH 14.8 % (11.6-17.2); WHITE BLOOD COUNT 6.6 TH/MM3 (4.0-11.0)
[2017-10-27 08:21] LABS: BICARBONATE 29.5 MEQ/L (21.0-32.0); CALCIUM 8.3 MG/DL (8.5-10.1); CREATININE 1.35 MG/DL (0.60-1.30)
[2017-10-27] MEDS: COLLAGENASE OINT 30 GM TUBE TOPICAL SCH (09:00)
[2017-10-27] MEDS: LEVOFLOXACIN 500 MG TAB PO SCH (09:42)
[2017-10-27] MEDS: GABAPENTIN 300 MG CAP PO SCH ×3 (09:43→18:00)
[2017-10-27] MEDS: LINEZOLID 600 MG TAB PO SCH ×2 (09:43→21:51)
[2017-10-27] MEDS: LACTOBACILLUS ACIDOPHILUS TAB PO SCH ×2 (09:43→21:51)
[2017-10-27] MEDS: INSULIN ASPART SUPPLEMENTAL SCALE SQ SCH ×4 (09:44→21:52)
[2017-10-27] MEDS: SODIUM CHLORIDE 0.9% FLUSH 10 ML FLUSH IV FLUSH SCH ×2 (09:44→21:51)
[2017-10-27] MEDS: INSULIN ASPART 1,000 UNITS/10 ML VIAL SQ SCH ×3 (09:44→17:00)
[2017-10-27 12:04] VITALS: BP 144/78; PULSE 117; RESP 20; TEMP 102.7; O2SAT 92
[2017-10-27] MEDS: cefTRIAXone INJ 2,000 MG in SODIUM CHLORIDE 0.9% INJ 100 ML IV SCH (12:57)
[2017-10-27] MEDS: ACETAMINOPHEN 500 MG CPLT PO PRN (13:01)
--- NOTE | 2017-10-27 13:23 | HHI.PR ---
Subjective Remarks Follow-up fever, diabetes. The patient reports that he is having pain in his right foot. Denies dyspnea. Objective Vitals Vital Signs Date Time Temp Pulse Resp B/P (MAP) Pulse Ox O2 Delivery O2 Flow Rate FiO2 10/27/17 08:04 98.1 72 16 133/72 (92) 93 10/27/17 08:00 Room Air 10/27/17 04:00 Room Air 10/27/17 00:00 97.8 102 18 142/80 (100) 91 10/27/17 00:00 Nasal Cannula 2.00 10/26/17 20:00 Nasal Cannula 2.00 10/26/17 20:00 100.0 107 18 150/79 (102) 95 10/26/17 16:00 98.4 97 15 134/77 (96) 95 I/O 10/26/17 10/26/17 10/26/17 10/27/17 10/27/17 10/27/17 07:00 15:00 23:00 07:00 15:00 23:00 Intake Total 1020 ml Output Total 800 ml Balance 220 ml Intake Oral 1020 ml Output Urine Total 800 ml # Bowel Movements 1 Result Diagram: 10/27/17 0619 10/27/17 0619 Imaging Last Impressions Chest X-Ray 10/27/17 0000 Signed Impressions: Service Date/Time: Friday, October 27, 2017 05:16 - CONCLUSION: Unchanged patchy areas of consolidation throughout both lungs. Elías Lobo Jr., MD Foot MRI 10/24/17 0000 Signed Impressions: Service Date/Time: Tuesday, October 24, 2017 10:08 - CONCLUSION: 1. Marrow edema and mild marrow enhancement in the proximal fourth metatarsal suspicious for an early osteomyelitis. 2. Complex fluid collection in the lateral foot near the base of the fourth metatarsal, probably an abscess with surrounding cellulitis. 3. Extensive marrow edema in the midfoot as above, probably reactive. Patchy low signal in the navicular and cuboid may indicate some avascular necrosis. 4. Postoperative resection of the fifth toe and fifth metatarsal. Francisco Grider MD Ankle MRI 10/24/17 0000 Signed Impressions: Service Date/Time: Tuesday, October 24, 2017 10:08 - CONCLUSION: 1. No definite evidence for osteomyelitis around the right ankle. Marrow edema however has increased slightly since the prior exam, probably reactive and possibly associated with a developing Charcot arthropathy. Low signal patchy areas within the tarsal navicular are suspicious for developing avascular necrosis. There is edema in the soft tissues of the hindfoot. Trace joint fluid. Francisco Grider MD Foot X-Ray 10/23/17 0000 Signed Impressions: Service Date/Time: October 17:15 - CONCLUSION: 1. 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 Lupillo Webster MD Thoracentesis Ultrasound 10/20/17 0600 Signed Impressions: Service Date/Time: Friday, October 20, 2017 13:03 - CONCLUSION: Uncomplicated ultrasound guided thoracentesis. Smooth Saucedo MD Chest Ultrasound 10/17/17 0000 Signed Impressions: Service Date/Time: Tuesday, October 17, 2017 20:24 - CONCLUSION: A moderate to large right pleural effusion is confirmed sonographically and marked for thoracentesis. Hector Pierre MD Chest CT 10/16/17 0000 Signed Impressions: Service Date/Time: October 20:14 - CONCLUSION: Moderate-sized bilateral pleural effusions with adjacent compressive atelectasis and/or pneumonia. Scattered increased interstitial infiltrates within the perihilar regions and upper lobes bilaterally raising the possibility of pulmonary vascular congestion. Cardiomegaly and coronary artery calcifications are noted. Mild pretracheal and AP window mediastinal lymphadenopathy which is nonspecific. Degenerative changes and mild scoliosis of the thoracic spine. Hector Pierre MD Aspiration 10/16/17 0000 Signed Impressions: Service Date/Time: October 15:48 - CONCLUSION: Uncomplicated aspiration as above. Chetan Escobedo MD Abdomen/Pelvis CT 10/16/17 Signed Impressions: Service Date/Time: October 20:14 - CONCLUSION: 1. Moderate-sized bilateral pleural effusions with adjacent consolidations consistent with atelectasis and/or pneumonia. 2. Tiny calcified nonobstructing bilateral renal calculi. 3. Mild hepatosplenomegaly. 4. Uncomplicated colonic diverticulosis. 5. Minimal free fluid within the pelvis. 6. Streakiness and fluid within the bilateral retroperitoneum inferior to the kidneys and extending into the presacral region. 7. Degenerative changes and scoliosis of the thoracolumbar spine. Hector Pierre MD Knee X-Ray 10/15/17 0000 Signed Impressions: Service Date/Time: Sunday, October 15, 2017 15:26 - CONCLUSION: Large joint effusion otherwise negative. Tu Lim MD FACR Carotid Artery Ultrasound 10/13/17 0000 Signed Impressions: Service Date/Time: Friday, October 13, 2017 16:12 - CONCLUSION: No evidence of flow-limiting carotid stenosis. Wm Riley MD Aorta w/Runoff CTA 10/13/17 0000 Signed Impressions: Service Date/Time: Friday, October 13, 2017 22:41 - CONCLUSION: 1. No aortic occlusive disease. 2. No significant iliac inflow stenosis. 3. No significant outflow stenosis. 4. Diffuse bilateral runoff disease with heavily calcified tibial arteries and significant venous contamination precluding patency evaluation beyond the very proximal calf. 5. Small to moderate bilateral pleural effusions with associated airspace disease at the lung bases, presumably atelectasis. 6. Trace free fluid in the deep pelvis. 7. Ancillary findings include hepatic steatosis, nonobstructing punctate calyceal calculus in the inferior pole of the left kidney and small suprapatellar right joint effusion. Lupillo Webster MD Objective Remarks General: No acute distress. Heart: Regular rate and rhythm. No murmur. Lungs: Mild scattered rhonchi. Breathing is nonlabored. Abdomen: Soft, nontender, nondistended. Extremities: No lower extremity edema. Right foot wounds bandaged. Wound vac in place. Psych: Alert and oriented. Procedures 10/08/17 Right foot and ankle incision drainage, 5th metatarsal resection, 5th digit amputation 10/25/17 Incision and drainage Right foot/ankle abscess with bone biopsy right 4th metatarsal base; wound vac placement Urinary Catheter: No Vascular Central Line Catheter: No A/P Problem List: (1) Osteomyelitis of foot ICD Code: M86.9 - Osteomyelitis, unspecified (2) Leukocytosis ICD Code: D72.829 - Elevated white blood cell count, unspecified (3) Dehydration with hyponatremia ICD Code: E87.1 - Hypo-osmolality and hyponatremia (4) Acute kidney injury ICD Code: N17.9 - Acute kidney failure, unspecified (5) Sepsis ICD Code: A41.9 - Sepsis, unspecified organism Status: Acute (6) Diabetic foot ulcer ICD Code: E11.621 - Type 2 diabetes mellitus with foot ulcer; L97.509 - Non- pressure chronic ulcer of other part of unspecified foot with unspecified severity Status: Acute (7) Acute renal failure superimposed on stage 3 chronic kidney disease ICD Code: N17.9 - Acute kidney failure, unspecified; N18.3 - Chronic kidney disease, stage 3 (moderate) (8) Bacteremia due to Gram-positive bacteria ICD Code: R78.81 - Bacteremia (9) Postoperative anemia ICD Code: D64.9 - Anemia, unspecified Assessment and Plan 1. Sepsis: Secondary to diabetic foot infection, bacteremia, right foot osteomyelitis: Appreciate infectious disease recommendations. Continue antibiotics (Rocephin, Levaquin, Zyvox). Wound culture growing staph and strep not A/B/D. New cultures obtained in surgery are growing staph aureus. Patient continues to be intermittently febrile. Most recent temperature was 102. Repeat blood cultures today. 2. Right foot osteomyelitis: Appreciate podiatry recommendations. Status post incision and drainage, fifth metatarsal resection, fifth digit amputation on . Podiatry is recommending IV antibiotics on discharge. Final antibiotic recommendations per infectious disease. Continue wound care. S/P irrigation/ debridement with wound vac placement 10/25/17. 3. Right knee effusion: Improving. Continue antibiotics. Appreciate orthopedic surgery recommendations. No surgical intervention planned at this point. 4. Bilateral pleural effusion: Appreciate pulmonology recommendations. Status post right-sided thoracentesis. Cytology is negative for malignant cells. 5. Peripheral vascular disease: Appreciate vascular surgery recommendations. Per vascular surgery, no surgical intervention is planned. 6. Postoperative anemia: Received transfusion of 2 units PRBCs. Monitor H&H. 7. Diabetes mellitus type 2: Continue Levemir. Monitor Accu-Cheks and cover with sliding scale insulin. Continue preprandial insulin as well. 8. Acute kidney injury superimposed on chronic kidney disease stage III: Creatinine trending up. Monitor labs. Avoid nephrotoxins. Add gentle IV fluid hydration. 9. Hypokalemia: Improved. 10. DVT prophylaxis: Heparin. Discharge Planning Pending further clinical improvement. Problem Qualifiers (1) Sepsis: Qualified Codes: A41.9 - Sepsis, unspecified organism (2) Diabetic foot ulcer: Qualified Codes: E10.621 - Type 1 diabetes mellitus with foot ulcer; L97.419 - Non-pressure chronic ulcer of right heel and midfoot with unspecified severity Siddharth Lane MD Oct 27, 2017 13:23
--- NOTE | 2017-10-27 14:27 | HHI.IDPN ---
Subjective Subjective Remarks ID COVERAGE Mr. Braxton is a 57-year-old male with past medical history significant for diabetes type 2, prior diabetic foot ulcer treated in October 2016 thereafter was hospitalized from May 08, 2017 to May 29, 2017 due to foot ulcer. During that hospitalization patient underwent surgical debridement with wound VAC placement. Patient reports that he was seen by Dr. Pritchard during that admission. Patient reports that he was discharged on IV ceftriaxone using a PICC line. Patient had home health care visits him and continue to receive wound VAC changes at home. He also was subsequently seen at wound care clinic for ongoing wound care as well as [facility] for his primary care needs. Patient reports that his medications were recently adjusted and a new insulin was introduced. Patient reports that he was diagnosed with a possible staph or strep infection and has been on oral Bactrim approximately 2 weeks prior to admission. Due to worsening foot infection as well as possible reaction to the new insulin patient presented to the emergency department [facility]. Patient reports that he was having fevers, chills, loss of appetite and diarrhea for the past 2 days associated with frequent urination. Patient denies any dysuria. He reports dizziness and reported history of falls 3 days ago while on the toilet. Patient's reports that she was unaware of this history of fall. He denies any head injury. Patient reports hitting his right foot and shoulder but that he was able to get off the floor by himself. Patient had a sepsis workup initiated on admission. Wound cultures are positive for strep as well as blood cultures are now positive for gram-positive likely strep. Repeat blood cultures have been ordered. Podiatry is seeing the patient and there is a plan for surgical intervention and possible amputation of the involved digit. Infectious disease is consulted for evaluation and management of right fifth toe osteomyelitis with associated cellulitis, gram-positive bacteremia and sepsis. S/p amputation 5th toe and 5thMT foot and blood clx + MSSA and strep + osteo extending to margins Notes reviewed One low grade temps in the last 24 hours Feels better Still with R foot pain, responds to pain meds C/S OR Staph aureus No rash No diarrhea ECHO no veg's. Repeat CXR with stable infiltrates Not coughing Antibiotics Current Medications Rocephin Levaquin Zyvox Medications (Trade) Dose Ordered Sig/Anna Route Start Time Stop Time Status Last Admin (NS Flush) 2 ml UNSCH PRN IV FLUSH 10/07/17 16:45 10/21/17 23:13 (NS Flush) 2 ml BID IV FLUSH 10/07/17 21:00 10/27/17 09:44 (Narcan Inj) 0.4 mg UNSCH PRN IV PUSH 10/07/17 16:45 (D50w (Vial) Inj) 50 ml UNSCH PRN IV PUSH 10/08/17 10:30 (Glucagon Inj) 1 mg UNSCH PRN OTHER 10/08/17 10:30 (NovoLOG SUPPLEMENTAL SCALE) 1 ACHS SLIDING SCALE SQ 10/08/17 12:00 10/27/17 12:59 (Lactinex) 1 tab Q12HR PO 10/08/17 21:00 10/27/17 09:43 (NovoLOG INJ) 5 units TIDAC SQ 10/12/17 08:00 10/27/17 12:59 (Levemir Inj) 15 units HS SQ 10/12/17 21:00 10/26/17 20:54 ([place] 7.5-325 Mg) 1 tab Q6H PRN PO 10/13/17 12:45 10/27/17 06:23 (Morphine Inj) 5 mg Q4H PRN IV PUSH 10/13/17 12:45 10/27/17 09:43 (Morphine Inj) 4 mg Q3H PRN IV PUSH 10/13/17 12:45 10/26/17 19:03 (Restoril) 15 mg HS PRN PO 10/13/17 12:45 10/25/17 22:37 (Tylenol) 500 mg Q4H PRN PO 10/13/17 13:15 10/27/17 13:01 Ceftriaxone Sodium 2000 mg/ Sodium Chloride 100 ml @ 200 mls/hr Q24H IV 10/13/17 14:00 10/27/17 12:57 (Levaquin) 500 mg DAILY PO 10/14/17 17:00 10/27/17 09:42 (Santyl Oint) 1 applic DAILY TOPICAL 10/22/17 12:00 10/27/17 09:00 (Neurontin) 600 mg TID PO 10/23/17 18:00 10/27/17 12:57 (Zyvox) 600 mg Q12HR PO 10/23/17 21:00 10/27/17 09:43 Sodium Chloride 1,000 ml @ 50 mls/hr Q20H IV 10/27/17 13:30 Lines Line sites with no e.o infection Past Medical History Past Medical History DM II Right foot ulcer with possible osteomyelitis in the past. Has received IV antibiotics long-term using a PICC line in the past. Renal stones Past Surgical History Right foot debridement of wound removal of kidney stones Tonsillitis Allergies: Coded Allergies: No Known Allergies (Unverified Adverse Reaction, Unknown, 09/15/17) Uncoded Allergies: nepalese dressing (Allergy, Severe, Anaphylaxis, 10/07/17) Objective . Vital Signs Date Time Temp Pulse Resp B/P (MAP) Pulse Ox O2 Delivery O2 Flow Rate FiO2 10/27/17 08:04 98.1 72 16 133/72 (92) 93 10/27/17 08:00 Room Air 10/27/17 04:00 Room Air 10/27/17 00:00 97.8 102 18 142/80 (100) 91 10/27/17 00:00 Nasal Cannula 2.00 10/26/17 20:00 Nasal Cannula 2.00 10/26/17 20:00 100.0 107 18 150/79 (102) 95 10/26/17 16:00 98.4 97 15 134/77 (96) 95 . Laboratory Tests Test 10/26/17 06:35 10/27/17 06:19 White Blood Count 7.3 TH/MM3 6.6 TH/MM3 Red Blood Count 2.77 MIL/MM3 2.83 MIL/MM3 Hemoglobin 7.8 GM/DL 7.9 GM/DL Hematocrit 22.7 % 23.5 % Mean Corpuscular Volume 81.9 FL 83.0 FL Mean Corpuscular Hemoglobin 28.1 PG 28.0 PG Mean Corpuscular Hemoglobin Concent 34.3 % 33.8 % Red Cell Distribution Width 14.6 % 14.8 % Platelet Count 237 TH/MM3 219 TH/MM3 Mean Platelet Volume 7.0 FL 7.2 FL Neutrophils (%) (Auto) 71.8 % 67.1 % Lymphocytes (%) (Auto) 16.8 % 16.7 % Monocytes (%) (Auto) 10.4 % 13.6 % Eosinophils (%) (Auto) 0.7 % 2.1 % Basophils (%) (Auto) 0.3 % 0.5 % Neutrophils # (Auto) 5.2 TH/MM3 4.4 TH/MM3 Lymphocytes # (Auto) 1.2 TH/MM3 1.1 TH/MM3 Monocytes # (Auto) 0.8 TH/MM3 0.9 TH/MM3 Eosinophils # (Auto) 0.0 TH/MM3 0.1 TH/MM3 Basophils # (Auto) 0.0 TH/MM3 0.0 TH/MM3 CBC Comment DIFF FINAL DIFF FINAL Differential Comment Laboratory Tests Test 10/26/17 06:35 10/27/17 06:19 Blood Urea Nitrogen 25 MG/DL 25 MG/DL Creatinine 1.33 MG/DL 1.35 MG/DL Random Glucose 187 MG/DL 154 MG/DL Calcium Level 8.6 MG/DL 8.3 MG/DL Sodium Level 133 MEQ/L 135 MEQ/L Potassium Level 4.1 MEQ/L 4.5 MEQ/L Chloride Level 96 MEQ/L 98 MEQ/L Carbon Dioxide Level 29.5 MEQ/L 29.5 MEQ/L Anion Gap 8 MEQ/L 8 MEQ/L Estimat Glomerular Filtration Rate 55 ML/MIN 54 ML/MIN Microbiology Date/Time Source Procedure Growth Status 10/24/17 21:31 Blood Peripheral Aerobic Blood Culture - Preliminary NO GROWTH IN 3 DAYS Resulted 10/24/17 21:31 Blood Peripheral Anaerobic Blood Culture - Preliminary NO GROWTH IN 3 DAYS Resulted 10/24/17 21:25 Blood Peripheral Aerobic Blood Culture - Preliminary NO GROWTH IN 3 DAYS Resulted 10/24/17 21:25 Blood Peripheral Anaerobic Blood Culture - Preliminary NO GROWTH IN 3 DAYS Resulted 10/25/17 08:55 Wound Foot Fungal Smear - Final NO FUNGAL ELEMENTS SEEN. Resulted 10/25/17 08:55 Wound Foot Fungal Culture Pending Resulted 10/25/17 08:55 Wound Foot Acid Fast Stain Pending Received 10/25/17 08:55 Wound Foot Mycobacterial Culture Pending Received 10/25/17 08:55 Wound Foot Gram Stain - Final Resulted 10/25/17 08:55 Wound Culture - Preliminary Staphylococcus Aureus Resulted Imaging Foot X-Ray 10/23/17 0000 Signed Impressions: Service Date/Time: October 17:15 - CONCLUSION: 1. 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 Lupillo Webster MD Chest X-Ray 10/22/17 0000 Signed Impressions: Service Date/Time: Sunday, October 22, 2017 09:07 - CONCLUSION: 1. Bilateral infiltrates and effusion. The exam has worsen when compared to previous dated 10/20/17. Raghavendra Lim MD Thoracentesis Ultrasound 10/20/17 0600 Signed Impressions: Service Date/Time: Friday, October 20, 2017 13:03 - CONCLUSION: Uncomplicated ultrasound guided thoracentesis. Smooth Saucedo MD Chest Ultrasound 10/17/17 0000 Signed Impressions: Service Date/Time: Tuesday, October 17, 2017 20:24 - CONCLUSION: A moderate to large right pleural effusion is confirmed sonographically and marked for thoracentesis. Hector Pierre MD Chest CT 10/16/17 0000 Signed Impressions: Service Date/Time: October 20:14 - CONCLUSION: Moderate-sized bilateral pleural effusions with adjacent compressive atelectasis and/or pneumonia. Scattered increased interstitial infiltrates within the perihilar regions and upper lobes bilaterally raising the possibility of pulmonary vascular congestion. Cardiomegaly and coronary artery calcifications are noted. Mild pretracheal and AP window mediastinal lymphadenopathy which is nonspecific. Degenerative changes and mild scoliosis of the thoracic spine. Hector Pierre MD Aspiration 10/16/17 0000 Signed Impressions: Service Date/Time: October 15:48 - CONCLUSION: Uncomplicated aspiration as above. Chetan Escobedo MD Abdomen/Pelvis CT 10/16/17 0000 Signed Impressions: Service Date/Time: October 20:14 - CONCLUSION: 1. Moderate-sized bilateral pleural effusions with adjacent consolidations consistent with atelectasis and/or pneumonia. 2. Tiny calcified nonobstructing bilateral renal calculi. 3. Mild hepatosplenomegaly. 4. Uncomplicated colonic diverticulosis. 5. Minimal free fluid within the pelvis. 6. Streakiness and fluid within the bilateral retroperitoneum inferior to the kidneys and extending into the presacral region. 7. Degenerative changes and scoliosis of the thoracolumbar spine. Hector Pierre MD Knee X-Ray 10/15/17 0000 Signed Impressions: Service Date/Time: Sunday, October 15, 2017 15:26 - CONCLUSION: Large joint effusion otherwise negative. Tu Lim MD FACR Carotid Artery Ultrasound 10/13/17 0000 Signed Impressions: Service Date/Time: Friday, October 13, 2017 16:12 - CONCLUSION: No evidence of flow-limiting carotid stenosis. Wm Riley MD Aorta w/Runoff CTA 10/13/17 0000 Signed Impressions: Service Date/Time: Friday, October 13, 2017 22:41 - CONCLUSION: 1. No aortic occlusive disease. 2. No significant iliac inflow stenosis. 3. No significant outflow stenosis. 4. Diffuse bilateral runoff disease with heavily calcified tibial arteries and significant venous contamination precluding patency evaluation beyond the very proximal calf. 5. Small to moderate bilateral pleural effusions with associated airspace disease at the lung bases, presumably atelectasis. 6. Trace free fluid in the deep pelvis. 7. Ancillary findings include hepatic steatosis, nonobstructing punctate calyceal calculus in the inferior pole of the left kidney and small suprapatellar right joint effusion. Lupillo Webster MD Foot MRI 10/12/17 0000 Signed Impressions: Service Date/Time: Thursday, October 12, 2017 08:31 - CONCLUSION: 1. No areas of suspected osteomyelitis. 2. Superficial soft tissue swelling over the third and fourth metatarsals. There is also some edema within the plantar musculature. Wm Dupree MD Ankle MRI 10/11/17 0000 Signed Impressions: Service Date/Time: Wednesday, October 11, 2017 09:41 - CONCLUSION: 1. No definite areas of osteomyelitis. There is some edema within the lateral cuboid adjacent to the suspected surgical defect which is likely reactive. T1 signal is maintained. 2. Multiple areas of focal edema within the midfoot mainly related to the subarticular regions likely related to underlying arthritic change. 3. The patient appears to be status post resection of the fifth metatarsal with post surgical change at the lateral hind and midfoot and a small focus of air seen adjacent to the calcaneus. Wm Dupree MD Physical Exam GENERAL: awake and alert, NAD SKIN: Cool and dry. No generalized rash HEAD: Atraumatic. Normocephalic. No temporal or scalp tenderness. EYES: Pupils equal round and reactive. EOM full and intact. No scleral icterus. No injection or drainage. ENT: Moist mucosa, no lesions, no oral thrush NECK: Trachea midline.Supple, nontender, no meningeal signs. CARDIOVASCULAR: Heart sounds audible. RESPIRATORY: basilar crackles. Breath sounds decreased bilateral bases. GASTROINTESTINAL: Abdomen soft, non-tender, nondistended. MUSCULOSKELETAL: Right foot with dry and intact dressing. Left foot in dressing. NEUROLOGICAL: Awake and alert. Nonfocal exam Psych cooperative IV line sites with no evidence of infection. Assessment & Plan Remarks Sepsis present on admission Strep bacteremia secondary to right foot osteomyelitis and cellulitis Staph MSSA bacteremia high grade. Strep not AB,D and Staph infection Right foot fifth MPJ osteomyelitis Right foot cellulitis Pneumonia with bilateral pleural effusions ? HCAP vs septic emboli. Right knee septic arthritis. Diabetes type 2 uncontrolled Acute renal failure: Sepsis, prerenal: improving Fevers, better Recommendations: Continue Ceftriaxone (BCX were negative at 4 days and no clinical e/o failure prior to switch) Continue Levaquin for broadening GNR coverage and also atypical PNA coverage. Concern the lung infiltrates could be septic emboli. Continue Zyvox (MRSA PNA and MRSA new HCA infection coverage, additionally helps with toxin neutralization for Strep) Follow new C/S and adjust Abx Monitor progress Follow Marci Montalvo MD Oct 27, 2017 14:27
[2017-10-27] MEDS: SODIUM CHLOR 0.9% 1000 ML INJ 1,000 ML IV SCH (14:53)
[2017-10-27 16:04] VITALS: BP 116/69; PULSE 95; RESP 20; TEMP 98.8; O2SAT 94
--- NOTE | 2017-10-27 16:27 | HHI.PR ---
Subjective Remarks 57 YOWm with DM,Diabetic foot ulcer,Pl eff, Lung infilt US chest Mod to large Rt Pl eff no Fever Breathiing better Pl fluid cytology neg Had Fever 102 Objective Vital Signs Vital Signs Date Time Temp Pulse Resp B/P (MAP) Pulse Ox O2 Delivery O2 Flow Rate FiO2 10/27/17 16:00 Room Air 10/27/17 12:04 102.7 117 20 144/78 (100) 92 10/27/17 12:00 Room Air 10/27/17 08:04 98.1 72 16 133/72 (92) 93 10/27/17 08:00 Room Air 10/27/17 04:00 Room Air 10/27/17 00:00 97.8 102 18 142/80 (100) 91 10/27/17 00:00 Nasal Cannula 2.00 10/26/17 20:00 Nasal Cannula 2.00 10/26/17 20:00 100.0 107 18 150/79 (102) 95 I/O 10/26/17 10/26/17 10/26/17 10/27/17 10/27/17 10/27/17 07:00 15:00 23:00 07:00 15:00 23:00 Intake Total 1020 ml Output Total 800 ml Balance 220 ml Intake Oral 1020 ml Output Urine Total 800 ml # Bowel Movements 1 Result Diagram: 10/27/1761810/27/17618 Objective Remarks GENERAL: WBWN WM,NAD SKIN: Warm and dry. HEAD: Normocephalic. EYES: No scleral icterus. No injection or drainage. NECK: Supple, trachea midline. No JVD or lymphadenopathy. CARDIOVASCULAR: Regular rate and rhythm without murmurs, gallops, or rubs. RESPIRATORY: Breath sounds equal bilaterally. No accessory muscle use. Decreased BS at Bases GASTROINTESTINAL: Abdomen soft, non-tender, nondistended. MUSCULOSKELETAL: No cyanosis, or edema. Foot ulcer, VAC device BACK: Nontender without obvious deformity. No CVA tenderness. A/P Assessment and Plan Bilat Pl effusion Lung infilt/ septic emboli DM Foot Ulcer PLAN: Pl fluid cytology, cultures neg Cont Abx per ID Stable on RA Curtis Liao MD Oct 27, 2017 16:27
[2017-10-27] MEDS: MORPHINE SULFATE 4 MG/ML INJ IV PUSH PRN (17:32)
[2017-10-27 20:00] VITALS: BP 130/69; PULSE 97; RESP 20; TEMP 99; O2SAT 98
[2017-10-27] MEDS: INSULIN DETEMIR 100 UNITS/ML VIAL SQ SCH (21:51)
[2017-10-27] MEDS: TEMAZEPAM 15 MG CAP PO PRN (23:09)
[2017-10-28] VITALS: BP 123/61; PULSE 94; RESP 19; TEMP 98.4; O2SAT 96
[2017-10-28] MEDS: ACETAMINOPHEN/HYDROcodone 325 MG/7.5 MG TAB PO PRN ×4 (02:03→21:07)
[2017-10-28 04:00] VITALS: BP 133/74; PULSE 95; RESP 20; TEMP 97.7; O2SAT 96
[2017-10-28] MEDS: MORPHINE SULFATE 8 MG/ML INJ IV PUSH PRN ×3 (04:58→18:00)
[2017-10-28 08:00] VITALS: BP 130/76; PULSE 93; RESP 20; TEMP 97.9; O2SAT 97
[2017-10-28] MEDS: INSULIN ASPART SUPPLEMENTAL SCALE SQ SCH ×4 (08:00→21:00)
[2017-10-28 08:43] LABS: AUTOMATED NEUTROPHIL # 2.7 TH/MM3 (1.8-7.7); BASOPHIL % 0.4 % (0.0-2.0); EOSINOPHIL # 0.2 TH/MM3 (0-0.4); EOSINOPHIL % 4.1 % (0.0-4.0); HEMOGLOBIN 7.6 GM/DL (13.0-17.0); LYMPH % 26.6 % (9.0-44.0); LYMPHOCYTE # 1.4 TH/MM3 (1.0-4.8); MEAN CELL VOLUME 83.3 FL (80.0-100.0); MEAN CORPUSCULAR HEMOGLOBIN 28.8 PG (27.0-34.0); MEAN CORPUSCULAR HGB CONC 34.6 % (32.0-36.0); MEAN PLATELET VOLUME 7.5 FL (7.0-11.0); MONO % 15.4 % (0.0-8.0); MONOCYTE # 0.8 TH/MM3 (0-0.9); NEUT % 53.5 % (16.0-70.0); PLATELET COUNT 218 TH/MM3 (150-450); RED BLOOD COUNT 2.64 MIL/MM3 (4.50-5.90); RED CELL DISTRIBUTION WIDTH 14.8 % (11.6-17.2); WHITE BLOOD COUNT 5.1 TH/MM3 (4.0-11.0)
[2017-10-28] MEDS: LACTOBACILLUS ACIDOPHILUS TAB PO SCH ×2 (08:53→21:06)
[2017-10-28] MEDS: GABAPENTIN 300 MG CAP PO SCH ×3 (08:53→18:00)
[2017-10-28] MEDS: INSULIN ASPART 1,000 UNITS/10 ML VIAL SQ SCH ×3 (08:53→18:01)
[2017-10-28] MEDS: LINEZOLID 600 MG TAB PO SCH (08:53)
[2017-10-28] MEDS: LEVOFLOXACIN 500 MG TAB PO SCH (08:53)
[2017-10-28] MEDS: COLLAGENASE OINT 30 GM TUBE TOPICAL SCH (08:54)
[2017-10-28] MEDS: SODIUM CHLORIDE 0.9% FLUSH 10 ML FLUSH IV FLUSH SCH ×2 (08:54→21:08)
[2017-10-28] MEDS: SODIUM CHLOR 0.9% 1000 ML INJ 1,000 ML IV SCH (08:55)
[2017-10-28 09:09] LABS: BICARBONATE 26.1 MEQ/L (21.0-32.0); CALCIUM 8.4 MG/DL (8.5-10.1); CREATININE 1.15 MG/DL (0.60-1.30)
--- NOTE | 2017-10-28 11:08 | HHI.IDPN ---
Subjective Subjective Remarks Mr. Braxton is a 57-year-old male with past medical history significant for diabetes type 2, prior diabetic foot ulcer treated in October 2016 thereafter was hospitalized from May 08, 2017 to May 29, 2017 due to foot ulcer. During that hospitalization patient underwent surgical debridement with wound VAC placement. Patient reports that he was seen by Dr. Pritchard during that admission. Patient reports that he was discharged on IV ceftriaxone using a PICC line. Patient had home health care visits him and continue to receive wound VAC changes at home. He also was subsequently seen at wound care clinic for ongoing wound care as well as [facility] for his primary care needs. Patient reports that his medications were recently adjusted and a new insulin was introduced. Patient reports that he was diagnosed with a possible staph or strep infection and has been on oral Bactrim approximately 2 weeks prior to admission. Due to worsening foot infection as well as possible reaction to the new insulin patient presented to the emergency department [facility]. Patient reports that he was having fevers, chills, loss of appetite and diarrhea for the past 2 days associated with frequent urination. Patient denies any dysuria. He reports dizziness and reported history of falls 3 days ago while on the toilet. Patient's reports that she was unaware of this history of fall. He denies any head injury. Patient reports hitting his right foot and shoulder but that he was able to get off the floor by himself. Patient had a sepsis workup initiated on admission. Wound cultures are positive for strep as well as blood cultures are now positive for gram-positive likely strep. Repeat blood cultures have been ordered. Podiatry is seeing the patient and there is a plan for surgical intervention and possible amputation of the involved digit. Infectious disease is consulted for evaluation and management of right fifth toe osteomyelitis with associated cellulitis, gram-positive bacteremia and sepsis. S/p amputation 5th toe and 5thMT foot and blood clx + MSSA and strep + osteo extending to margins Notes reviewed High grade fever x 1. WBC ok. Clinically no change hemodynamically to suggest sepsis or new infection. Feels better Still with R foot pain, responds to pain meds C/S OR Staph aureus No rash No diarrhea ECHO no veg's. Repeat CXR with stable infiltrates. ? fluid component. Not coughing Antibiotics Current Medications Rocephin Levaquin Zyvox Medications (Trade) Dose Ordered Sig/Anna Route Start Time Stop Time Status Last Admin (NS Flush) 2 ml UNSCH PRN IV FLUSH 10/07/17 16:45 10/21/17 23:13 (NS Flush) 2 ml BID IV FLUSH 10/07/17 21:00 10/27/17 09:44 (Narcan Inj) 0.4 mg UNSCH PRN IV PUSH 10/07/17 16:45 (D50w (Vial) Inj) 50 ml UNSCH PRN IV PUSH 10/08/17 10:30 (Glucagon Inj) 1 mg UNSCH PRN OTHER 10/08/17 10:30 (NovoLOG SUPPLEMENTAL SCALE) 1 ACHS SLIDING SCALE SQ 10/08/17 12:00 10/27/17 12:59 (Lactinex) 1 tab Q12HR PO 10/08/17 21:00 10/27/17 09:43 (NovoLOG INJ) 5 units TIDAC SQ 10/12/17 08:00 10/27/17 12:59 (Levemir Inj) 15 units HS SQ 10/12/17 21:00 10/26/17 20:54 ([place] 7.5-325 Mg) 1 tab Q6H PRN PO 10/13/17 12:45 10/27/17 06:23 (Morphine Inj) 5 mg Q4H PRN IV PUSH 10/13/17 12:45 10/27/17 09:43 (Morphine Inj) 4 mg Q3H PRN IV PUSH 10/13/17 12:45 10/26/17 19:03 (Restoril) 15 mg HS PRN PO 10/13/17 12:45 10/25/17 22:37 (Tylenol) 500 mg Q4H PRN PO 10/13/17 13:15 10/27/17 13:01 Ceftriaxone Sodium 2000 mg/ Sodium Chloride 100 ml @ 200 mls/hr Q24H IV 10/13/17 14:00 10/27/17 12:57 (Levaquin) 500 mg DAILY PO 10/14/17 17:00 10/27/17 09:42 (Santyl Oint) 1 applic DAILY TOPICAL 10/22/17 12:00 10/27/17 09:00 (Neurontin) 600 mg TID PO 10/23/17 18:00 10/27/17 12:57 (Zyvox) 600 mg Q12HR PO 10/23/17 21:00 10/27/17 09:43 Sodium Chloride 1,000 ml @ 50 mls/hr Q20H IV 10/27/17 13:30 Lines Line sites with no e.o infection Past Medical History Past Medical History DM II Right foot ulcer with possible osteomyelitis in the past. Has received IV antibiotics long-term using a PICC line in the past. Renal stones Past Surgical History Right foot debridement of wound removal of kidney stones Tonsillitis Allergies: Coded Allergies: No Known Allergies (Unverified Adverse Reaction, Unknown, 09/15/17) Uncoded Allergies: [place] dressing (Allergy, Severe, Anaphylaxis, 10/07/17) Objective . Vital Signs Date Time Temp Pulse Resp B/P (MAP) Pulse Ox O2 Delivery O2 Flow Rate FiO2 10/28/17 08:00 97.9 93 20 130/76 (94) 97 10/28/17 08:00 Nasal Cannula 2.00 10/28/17 04:00 97.7 95 20 133/74 (93) 96 10/28/17 00:00 98.4 94 19 123/61 (81) 96 10/28/17 00:00 Nasal Cannula 2.00 10/27/17 20:00 99.0 97 20 130/69 (89) 98 10/27/17 20:00 Nasal Cannula 2.00 10/27/17 16:04 98.8 95 20 116/69 (85) 94 10/27/17 16:00 Room Air 10/27/17 12:04 102.7 117 20 144/78 (100) 92 10/27/17 12:00 Room Air . Laboratory Tests Test 10/27/17 06:19 10/28/17 06:59 White Blood Count 6.6 TH/MM3 5.1 TH/MM3 Red Blood Count 2.83 MIL/MM3 2.64 MIL/MM3 Hemoglobin 7.9 GM/DL 7.6 GM/DL Hematocrit 23.5 % 22.0 % Mean Corpuscular Volume 83.0 FL 83.3 FL Mean Corpuscular Hemoglobin 28.0 PG 28.8 PG Mean Corpuscular Hemoglobin Concent 33.8 % 34.6 % Red Cell Distribution Width 14.8 % 14.8 % Platelet Count 219 TH/MM3 218 TH/MM3 Mean Platelet Volume 7.2 FL 7.5 FL Neutrophils (%) (Auto) 67.1 % 53.5 % Lymphocytes (%) (Auto) 16.7 % 26.6 % Monocytes (%) (Auto) 13.6 % 15.4 % Eosinophils (%) (Auto) 2.1 % 4.1 % Basophils (%) (Auto) 0.5 % 0.4 % Neutrophils # (Auto) 4.4 TH/MM3 2.7 TH/MM3 Lymphocytes # (Auto) 1.1 TH/MM3 1.4 TH/MM3 Monocytes # (Auto) 0.9 TH/MM3 0.8 TH/MM3 Eosinophils # (Auto) 0.1 TH/MM3 0.2 TH/MM3 Basophils # (Auto) 0.0 TH/MM3 0.0 TH/MM3 CBC Comment DIFF FINAL DIFF FINAL Differential Comment Laboratory Tests Test 10/27/17 06:19 10/28/17 06:59 Blood Urea Nitrogen 25 MG/DL 27 MG/DL Creatinine 1.35 MG/DL 1.15 MG/DL Random Glucose 154 MG/DL 114 MG/DL Calcium Level 8.3 MG/DL 8.4 MG/DL Sodium Level 135 MEQ/L 134 MEQ/L Potassium Level 4.5 MEQ/L 4.1 MEQ/L Chloride Level 98 MEQ/L 98 MEQ/L Carbon Dioxide Level 29.5 MEQ/L 26.1 MEQ/L Anion Gap 8 MEQ/L 10 MEQ/L Estimat Glomerular Filtration Rate 54 ML/MIN 65 ML/MIN Microbiology Date/Time Source Procedure Growth Status 10/27/17 16:45 Blood Peripheral Aerobic Blood Culture - Preliminary NO GROWTH IN 1 DAY Resulted 10/27/17 16:45 Blood Peripheral Anaerobic Blood Culture - Preliminary NO GROWTH IN 1 DAY Resulted 10/27/17 16:30 Blood Peripheral Aerobic Blood Culture - Preliminary NO GROWTH IN 1 DAY Resulted 10/27/17 16:30 Blood Peripheral Anaerobic Blood Culture - Preliminary NO GROWTH IN 1 DAY Resulted Imaging Foot X-Ray 10/23/17 0000 Signed Impressions: Service Date/Time: October 17:15 - CONCLUSION: 1. 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 Lupillo Webster MD Chest X-Ray 10/22/17 0000 Signed Impressions: Service Date/Time: Sunday, October 22, 2017 09:07 - CONCLUSION: 1. Bilateral infiltrates and effusion. The exam has worsen when compared to previous dated 10/20/17. Raghavendra Lim MD Thoracentesis Ultrasound 10/20/17 0600 Signed Impressions: Service Date/Time: Friday, October 20, 2017 13:03 - CONCLUSION: Uncomplicated ultrasound guided thoracentesis. Smooth Saucedo MD Chest Ultrasound 10/17/17 0000 Signed Impressions: Service Date/Time: Tuesday, October 17, 2017 20:24 - CONCLUSION: A moderate to large right pleural effusion is confirmed sonographically and marked for thoracentesis. Hector Pierre MD Chest CT 10/16/17 0000 Signed Impressions: Service Date/Time: October 20:14 - CONCLUSION: Moderate-sized bilateral pleural effusions with adjacent compressive atelectasis and/or pneumonia. Scattered increased interstitial infiltrates within the perihilar regions and upper lobes bilaterally raising the possibility of pulmonary vascular congestion. Cardiomegaly and coronary artery calcifications are noted. Mild pretracheal and AP window mediastinal lymphadenopathy which is nonspecific. Degenerative changes and mild scoliosis of the thoracic spine. Hector Pierre MD Aspiration 10/16/17 0000 Signed Impressions: Service Date/Time: October 15:48 - CONCLUSION: Uncomplicated aspiration as above. Chetan Escobedo MD Abdomen/Pelvis CT 10/16/17 0000 Signed Impressions: Service Date/Time: October 20:14 - CONCLUSION: 1. Moderate-sized bilateral pleural effusions with adjacent consolidations consistent with atelectasis and/or pneumonia. 2. Tiny calcified nonobstructing bilateral renal calculi. 3. Mild hepatosplenomegaly. 4. Uncomplicated colonic diverticulosis. 5. Minimal free fluid within the pelvis. 6. Streakiness and fluid within the bilateral retroperitoneum inferior to the kidneys and extending into the presacral region. 7. Degenerative changes and scoliosis of the thoracolumbar spine. Hector Pierre MD Knee X-Ray 10/15/17 0000 Signed Impressions: Service Date/Time: Sunday, October 15, 2017 15:26 - CONCLUSION: Large joint effusion otherwise negative. Tu Lim MD FACR Carotid Artery Ultrasound 10/13/17 0000 Signed Impressions: Service Date/Time: Friday, October 13, 2017 16:12 - CONCLUSION: No evidence of flow-limiting carotid stenosis. Wm Riley MD Aorta w/Runoff CTA 10/13/17 0000 Signed Impressions: Service Date/Time: Friday, October 13, 2017 22:41 - CONCLUSION: 1. No aortic occlusive disease. 2. No significant iliac inflow stenosis. 3. No significant outflow stenosis. 4. Diffuse bilateral runoff disease with heavily calcified tibial arteries and significant venous contamination precluding patency evaluation beyond the very proximal calf. 5. Small to moderate bilateral pleural effusions with associated airspace disease at the lung bases, presumably atelectasis. 6. Trace free fluid in the deep pelvis. 7. Ancillary findings include hepatic steatosis, nonobstructing punctate calyceal calculus in the inferior pole of the left kidney and small suprapatellar right joint effusion. Lupillo Webster MD Foot MRI 10/12/17 0000 Signed Impressions: Service Date/Time: Thursday, October 12, 2017 08:31 - CONCLUSION: 1. No areas of suspected osteomyelitis. 2. Superficial soft tissue swelling over the third and fourth metatarsals. There is also some edema within the plantar musculature. Wm Dupree MD Ankle MRI 10/11/17 0000 Signed Impressions: Service Date/Time: Wednesday, October 11, 2017 09:41 - CONCLUSION: 1. No definite areas of osteomyelitis. There is some edema within the lateral cuboid adjacent to the suspected surgical defect which is likely reactive. T1 signal is maintained. 2. Multiple areas of focal edema within the midfoot mainly related to the subarticular regions likely related to underlying arthritic change. 3. The patient appears to be status post resection of the fifth metatarsal with post surgical change at the lateral hind and midfoot and a small focus of air seen adjacent to the calcaneus. Wm Dupree MD Physical Exam GENERAL: awake and alert, NAD SKIN: Cool and dry. No generalized rash HEAD: Atraumatic. Normocephalic. No temporal or scalp tenderness. EYES: Pupils equal round and reactive. EOM full and intact. No scleral icterus. No injection or drainage. ENT: Moist mucosa, no lesions, no oral thrush NECK: Trachea midline.Supple, nontender, no meningeal signs. CARDIOVASCULAR: Heart sounds audible. RESPIRATORY: basilar crackles. Breath sounds decreased bilateral bases. GASTROINTESTINAL: Abdomen soft, non-tender, nondistended. MUSCULOSKELETAL: Right foot with wound vac. Left foot in dressing. NEUROLOGICAL: Awake and alert. Nonfocal exam Psych cooperative IV line sites with no evidence of infection. Assessment & Plan Remarks Sepsis present on admission Strep bacteremia secondary to right foot osteomyelitis and cellulitis Staph MSSA bacteremia high grade. Strep not AB,D and Staph infection Right foot fifth MPJ osteomyelitis Right foot cellulitis Pneumonia with bilateral pleural effusions ? HCAP vs septic emboli. Right knee septic arthritis. Diabetes type 2 uncontrolled Acute renal failure: Sepsis, prerenal: improving Fevers, better Recommendations: Continue Ceftriaxone (BCX were negative at 4 days and no clinical e/o failure prior to switch) DC Levaquin DC Zyvox Doppler LE bilaterally to r/o DVT. Follow cultures Follow clinically. vivek pt and . Chuyita Quinteros MD Oct 28, 2017 11:08
[2017-10-28 12:00] VITALS: BP 112/64; PULSE 104; RESP 20; TEMP 99.3; O2SAT 96
[2017-10-28] MEDS: cefTRIAXone INJ 2,000 MG in SODIUM CHLORIDE 0.9% INJ 100 ML IV SCH (13:08)
[2017-10-28] MEDS: MORPHINE SULFATE 4 MG/ML INJ IV PUSH PRN (13:25)
--- NOTE | 2017-10-28 14:45 | HHI.PR ---
Subjective Remarks Follow-up diabetes, fever, foot wound. The patient states that his pain is adequately controlled. Denies chest pain or dyspnea. Denies nausea or vomiting. Objective Vitals Vital Signs Date Time Temp Pulse Resp B/P (MAP) Pulse Ox O2 Delivery O2 Flow Rate FiO2 10/28/17 12:00 99.3 104 20 112/64 (80) 96 10/28/17 08:00 97.9 93 20 130/76 (94) 97 10/28/17 08:00 Nasal Cannula 2.00 10/28/17 04:00 97.7 95 20 133/74 (93) 96 10/28/17 00:00 98.4 94 19 123/61 (81) 96 10/28/17 00:00 Nasal Cannula 2.00 10/27/17 20:00 99.0 97 20 130/69 (89) 98 10/27/17 20:00 Nasal Cannula 2.00 10/27/17 16:04 98.8 95 20 116/69 (85) 94 10/27/17 16:00 Room Air I/O 10/27/17 10/27/17 10/27/17 10/28/17 10/28/17 10/28/17 07:00 15:00 23:00 07:00 15:00 23:00 Intake Total 380 ml 240 ml Output Total 600 ml 900 ml Balance -220 ml -660 ml Intake Oral 380 ml 240 ml Output Urine Total 600 ml 900 ml # Bowel Movements 1 1 Result Diagram: 10/28/17 0659 10/28/17 0659 Imaging Last Impressions Chest X-Ray 10/27/17 0000 Signed Impressions: Service Date/Time: Friday, October 27, 2017 05:16 - CONCLUSION: Unchanged patchy areas of consolidation throughout both lungs. Elías Lobo Jr., MD Foot MRI 10/24/17 0000 Signed Impressions: Service Date/Time: Tuesday, October 24, 2017 10:08 - CONCLUSION: 1. Marrow edema and mild marrow enhancement in the proximal fourth metatarsal suspicious for an early osteomyelitis. 2. Complex fluid collection in the lateral foot near the base of the fourth metatarsal, probably an abscess with surrounding cellulitis. 3. Extensive marrow edema in the midfoot as above, probably reactive. Patchy low signal in the navicular and cuboid may indicate some avascular necrosis. 4. Postoperative resection of the fifth toe and fifth metatarsal. Francisco Grider MD Ankle MRI 10/24/17 Signed Impressions: Service Date/Time: Tuesday, October 24, 2017 10:08 - CONCLUSION: 1. No definite evidence for osteomyelitis around the right ankle. Marrow edema however has increased slightly since the prior exam, probably reactive and possibly associated with a developing Charcot arthropathy. Low signal patchy areas within the tarsal navicular are suspicious for developing avascular necrosis. There is edema in the soft tissues of the hindfoot. Trace joint fluid. Francisco Grider MD Foot X-Ray 10/23/17 0000 Signed Impressions: Service Date/Time: October 17:15 - CONCLUSION: 1. 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 Lupillo Webster MD Thoracentesis Ultrasound 10/20/17 0600 Signed Impressions: Service Date/Time: Friday, October 20, 2017 13:03 - CONCLUSION: Uncomplicated ultrasound guided thoracentesis. Smooth Saucedo MD Chest Ultrasound 10/17/17 0000 Signed Impressions: Service Date/Time: Tuesday, October 17, 2017 20:24 - CONCLUSION: A moderate to large right pleural effusion is confirmed sonographically and marked for thoracentesis. Hector Pierre MD Chest CT 10/16/17 Signed Impressions: Service Date/Time: October 20:14 - CONCLUSION: Moderate-sized bilateral pleural effusions with adjacent compressive atelectasis and/or pneumonia. Scattered increased interstitial infiltrates within the perihilar regions and upper lobes bilaterally raising the possibility of pulmonary vascular congestion. Cardiomegaly and coronary artery calcifications are noted. Mild pretracheal and AP window mediastinal lymphadenopathy which is nonspecific. Degenerative changes and mild scoliosis of the thoracic spine. Hector Pierre MD Aspiration 10/16/17 0000 Signed Impressions: Service Date/Time: October 15:48 - CONCLUSION: Uncomplicated aspiration as above. Chetan Escobedo MD Abdomen/Pelvis CT 10/16/17 0000 Signed Impressions: Service Date/Time: October 20:14 - CONCLUSION: 1. Moderate-sized bilateral pleural effusions with adjacent consolidations consistent with atelectasis and/or pneumonia. 2. Tiny calcified nonobstructing bilateral renal calculi. 3. Mild hepatosplenomegaly. 4. Uncomplicated colonic diverticulosis. 5. Minimal free fluid within the pelvis. 6. Streakiness and fluid within the bilateral retroperitoneum inferior to the kidneys and extending into the presacral region. 7. Degenerative changes and scoliosis of the thoracolumbar spine. Hector Pierre MD Knee X-Ray 10/15/17 0000 Signed Impressions: Service Date/Time: Sunday, October 15, 2017 15:26 - CONCLUSION: Large joint effusion otherwise negative. Tu Lim MD FACR Carotid Artery Ultrasound 10/13/17 0000 Signed Impressions: Service Date/Time: Friday, October 13, 2017 16:12 - CONCLUSION: No evidence of flow-limiting carotid stenosis. Wm Riley MD Aorta w/Runoff CTA 10/13/17 0000 Signed Impressions: Service Date/Time: Friday, October 13, 2017 22:41 - CONCLUSION: 1. No aortic occlusive disease. 2. No significant iliac inflow stenosis. 3. No significant outflow stenosis. 4. Diffuse bilateral runoff disease with heavily calcified tibial arteries and significant venous contamination precluding patency evaluation beyond the very proximal calf. 5. Small to moderate bilateral pleural effusions with associated airspace disease at the lung bases, presumably atelectasis. 6. Trace free fluid in the deep pelvis. 7. Ancillary findings include hepatic steatosis, nonobstructing punctate calyceal calculus in the inferior pole of the left kidney and small suprapatellar right joint effusion. Lupillo Webster MD Objective Remarks General: No acute distress. Heart: Regular rate and rhythm. No murmur. Lungs: Decreased breath sounds in both bases. Breathing is nonlabored. Abdomen: Soft, nontender, nondistended. Extremities: No lower extremity edema. Right foot wounds bandaged. Wound vac in place. Psych: Alert and oriented. Procedures 10/08/17 Right foot and ankle incision drainage, 5th metatarsal resection, 5th digit amputation 10/25/17 Incision and drainage Right foot/ankle abscess with bone biopsy right 4th metatarsal base; wound vac placement Urinary Catheter: No Vascular Central Line Catheter: No A/P Problem List: (1) Osteomyelitis of foot ICD Code: M86.9 - Osteomyelitis, unspecified (2) Leukocytosis ICD Code: D72.829 - Elevated white blood cell count, unspecified (3) Dehydration with hyponatremia ICD Code: E87.1 - Hypo-osmolality and hyponatremia (4) Acute kidney injury ICD Code: N17.9 - Acute kidney failure, unspecified (5) Sepsis ICD Code: A41.9 - Sepsis, unspecified organism Status: Acute (6) Diabetic foot ulcer ICD Code: E11.621 - Type 2 diabetes mellitus with foot ulcer; L97.509 - Non- pressure chronic ulcer of other part of unspecified foot with unspecified severity Status: Acute (7) Acute renal failure superimposed on stage 3 chronic kidney disease ICD Code: N17.9 - Acute kidney failure, unspecified; N18.3 - Chronic kidney disease, stage 3 (moderate) (8) Bacteremia due to Gram-positive bacteria ICD Code: R78.81 - Bacteremia (9) Postoperative anemia ICD Code: D64.9 - Anemia, unspecified Assessment and Plan 1. Sepsis: Secondary to diabetic foot infection, bacteremia, right foot osteomyelitis: Appreciate infectious disease recommendations. Continue antibiotics (Rocephin, Levaquin, Zyvox). Wound culture growing staph and strep not A/B/D. New cultures obtained in surgery are growing staph aureus. Patient continues to be intermittently febrile. Most recent fever was 102.7 at noon on 10/27/17. Repeat blood cultures are pending. Discussed with Dr. Quinteros. 2. Right foot osteomyelitis: Appreciate podiatry recommendations. Status post incision and drainage, fifth metatarsal resection, fifth digit amputation on . Podiatry is recommending IV antibiotics on discharge. Final antibiotic recommendations per infectious disease. Continue wound care. S/P irrigation/ debridement with wound vac placement 10/25/17. 3. Right knee effusion: Improving. Continue antibiotics. Appreciate orthopedic surgery recommendations. No surgical intervention planned at this point. 4. Bilateral pleural effusion: Appreciate pulmonology recommendations. Status post right-sided thoracentesis. Cytology is negative for malignant cells. 5. Peripheral vascular disease: Appreciate vascular surgery recommendations. Per vascular surgery, no surgical intervention is planned. 6. Postoperative anemia: Received transfusion of 2 units PRBCs. Monitor H&H. 7. Diabetes mellitus type 2: Continue Levemir. Monitor Accu-Cheks and cover with sliding scale insulin. Continue preprandial insulin as well. 8. Acute kidney injury superimposed on chronic kidney disease stage III: Creatinine improved today. Monitor labs. Avoid nephrotoxins. Continue gentle IV fluid hydration. 9. Hypokalemia: Improved. 10. DVT prophylaxis: Heparin. Discharge Planning Pending further clinical improvement. Problem Qualifiers (1) Sepsis: Qualified Codes: A41.9 - Sepsis, unspecified organism (2) Diabetic foot ulcer: Qualified Codes: E10.621 - Type 1 diabetes mellitus with foot ulcer; L97.419 - Non-pressure chronic ulcer of right heel and midfoot with unspecified severity Siddharth Lane MD Oct 28, 2017 14:44
[2017-10-28] MEDS: HEPARIN SODIUM - SQ 10,000 UNITS/ML VIAL SQ SCH (15:33)
[2017-10-28 16:00] VITALS: BP 136/72; PULSE 116; RESP 20; TEMP 102.5; O2SAT 90
--- NOTE | 2017-10-28 17:25 | RADRPT ---
EXAM DATE/TIME: 10/28/2017 16:26 [place] COMPARISON: None. INDICATIONS : Bilateral leg pain. MEDICAL HISTORY : Renal calculi. Diabetes. Hallucinations. SURGICAL HISTORY : Tonsillectomy. Right foot I&D. ENCOUNTER: Initial ACUITY: 1 day PAIN SCORE: 2/10 LOCATION: Bilateral legs. TECHNIQUE: Venous ultrasound of the left and right leg was performed from the inguinal ligament to the proximal calf. Real-time, color Doppler and spectral tracing, compression and augmentation techniques were us ed. FINDINGS: RIGHT LEG: There is normal compressibility of the deep venous system from the inguinal region to the proximal ca lf. No echogenic clot is seen in the lumen of the common femoral, femoral, popliteal, and posterior tibial veins. There is a normal response of the venous system to proximal and distal augmentation an d respiration. LEFT LEG: There is normal compressibility of the deep venous system from the inguinal region to the proximal ca lf. No echogenic clot is seen in the lumen of the common femoral, femoral, popliteal, and posterior tibial veins. There is a normal response of the venous system to proximal and distal augmentation an d respiration. CONCLUSION: 1. Negative for deep venous thrombosis. Mildly enlarged right inguinal lymph nodes. Francisco Grider MD on October 28, 2017 at 17:22 Board Certified Radiologist. This report was verified electronically.
[2017-10-28] MEDS: ACETAMINOPHEN 500 MG CPLT PO PRN (18:10)
--- NOTE | 2017-10-28 19:39 | HHI.PR ---
Subjective Remarks 57 YOWm with DM,Diabetic foot ulcer,Pl eff, Lung infilt US chest Mod to large Rt Pl eff no Fever Breathiing better Pl fluid cytology neg uses 02 off and on Objective Vital Signs Vital Signs Date Time Temp Pulse Resp B/P (MAP) Pulse Ox O2 Delivery O2 Flow Rate FiO2 10/28/17 16:00 Nasal Cannula 2.00 10/28/17 16:00 102.5 116 20 136/72 (93) 90 10/28/17 12:00 Nasal Cannula 2.00 10/28/17 12:00 99.3 104 20 112/64 (80) 96 10/28/17 08:00 97.9 93 20 130/76 (94) 97 10/28/17 08:00 Nasal Cannula 2.00 10/28/17 04:00 97.7 95 20 133/74 (93) 96 10/28/17 00:00 98.4 94 19 123/61 (81) 96 10/28/17 00:00 Nasal Cannula 2.00 10/27/17 20:00 99.0 97 20 130/69 (89) 98 10/27/17 20:00 Nasal Cannula 2.00 I/O 10/27/17 10/27/17 10/27/17 10/28/17 10/28/17 10/28/17 07:00 15:00 23:00 07:00 15:00 23:00 Intake Total 380 ml 240 ml 480 ml Output Total 600 ml 900 ml 1200 ml Balance -220 ml -660 ml -720 ml Intake Oral 380 ml 240 ml 480 ml Output Urine Total 600 ml 900 ml 1200 ml # Bowel Movements 1 1 0 Result Diagram: 10/28/1759 10/28/17 0659 Objective Remarks GENERAL: WBWN WM,NAD SKIN: Warm and dry. HEAD: Normocephalic. EYES: No scleral icterus. No injection or drainage. NECK: Supple, trachea midline. No JVD or lymphadenopathy. CARDIOVASCULAR: Regular rate and rhythm without murmurs, gallops, or rubs. RESPIRATORY: Breath sounds equal bilaterally. No accessory muscle use. Decreased BS at Bases GASTROINTESTINAL: Abdomen soft, non-tender, nondistended. MUSCULOSKELETAL: No cyanosis, or edema. Foot ulcer, VAC device BACK: Nontender without obvious deformity. No CVA tenderness. A/P Assessment and Plan Bilat Pl effusion Lung infilt/ septic emboli DM Foot Ulcer PLAN: Pl fluid cytology, cultures neg Cont Abx per ID Supplement 02 to keep sat >90% Curtis Liao MD Oct 28, 2017 19:39
[2017-10-28 20:00] VITALS: BP 114/73; PULSE 104; RESP 18; TEMP 100.3; O2SAT 95
[2017-10-28] MEDS: INSULIN DETEMIR 100 UNITS/ML VIAL SQ SCH (21:00)
[2017-10-28] MEDS: TEMAZEPAM 15 MG CAP PO PRN (21:54)
[2017-10-29] VITALS: BP 95/68; PULSE 88; RESP 20; TEMP 98.3; O2SAT 94
[2017-10-29] MEDS: MORPHINE SULFATE 8 MG/ML INJ IV PUSH PRN ×3 (00:10→12:22)
[2017-10-29] MEDS: HEPARIN SODIUM - SQ 10,000 UNITS/ML VIAL SQ SCH ×2 (03:20→13:07)
[2017-10-29] MEDS: ACETAMINOPHEN/HYDROcodone 325 MG/7.5 MG TAB PO PRN ×3 (03:20→21:43)
[2017-10-29 04:00] VITALS: BP 165/88; PULSE 105; RESP 19; TEMP 100.8; O2SAT 97
[2017-10-29] MEDS: ACETAMINOPHEN 500 MG CPLT PO PRN ×3 (05:47→18:38)
[2017-10-29] MEDS: SODIUM CHLOR 0.9% 1000 ML INJ 1,000 ML IV SCH (05:50)
[2017-10-29] MEDS: INSULIN ASPART 1,000 UNITS/10 ML VIAL SQ SCH ×3 (08:00→17:00)
[2017-10-29] MEDS: INSULIN ASPART SUPPLEMENTAL SCALE SQ SCH ×4 (08:00→21:00)
[2017-10-29 08:05] VITALS: BP 126/69; PULSE 99; RESP 18; TEMP 99.2; O2SAT 93
[2017-10-29] MEDS: SODIUM CHLORIDE 0.9% FLUSH 10 ML FLUSH IV FLUSH SCH ×2 (08:17→21:44)
[2017-10-29] MEDS: LACTOBACILLUS ACIDOPHILUS TAB PO SCH ×2 (08:17→21:43)
[2017-10-29] MEDS: GABAPENTIN 300 MG CAP PO SCH ×3 (08:17→17:46)
[2017-10-29] MEDS: COLLAGENASE OINT 30 GM TUBE TOPICAL SCH (08:19)
--- NOTE | 2017-10-29 10:49 | HHI.PR ---
Subjective Remarks Follow-up for multiple conditions and assessment and plan Patient stated he feels a lot better. He stated that his left knee effusion has improved. Patient also stated that he scheduled for a wound VAC change at 12 PM today. He denies any shortness of breathing or cough. He has no other complaints. He continues to have low-grade fevers last one was 100.8. Objective Vitals Vital Signs Date Time Temp Pulse Resp B/P (MAP) Pulse Ox O2 Delivery O2 Flow Rate FiO2 10/29/17 09:19 Nasal Cannula 2.00 10/29/17 08:05 99.2 99 18 126/69 (88) 93 10/29/17 04:00 100.8 105 19 165/88 (113) 97 10/29/17 00:00 98.3 88 20 95/68 (77) 94 10/28/17 20:00 Nasal Cannula 2.00 10/28/17 20:00 100.3 104 18 114/73 (87) 95 10/28/17 16:00 Nasal Cannula 2.00 10/28/17 16:00 102.5 116 20 136/72 (93) 90 10/28/17 12:00 Nasal Cannula 2.00 10/28/17 12:00 99.3 104 20 112/64 (80) 96 I/O 10/28/17 10/28/17 10/28/17 10/29/17 10/29/17 10/29/17 07:00 15:00 23:00 07:00 15:00 23:00 Intake Total 240 ml 480 ml 560 ml Output Total 900 ml 1200 ml 1900 ml Balance -660 ml -720 ml -1340 ml Intake Oral 240 ml 480 ml 560 ml Output Urine Total 900 ml 1200 ml 1900 ml # Bowel Movements 1 0 3 Result Diagram: 10/28/17 0659 10/28/17 0659 Objective Remarks GENERAL: in NAD CARDIOVASCULAR: Regular rate and rhythm without murmurs, gallops, or rubs. RESPIRATORY: Breath sounds equal bilaterally. No accessory muscle use. GASTROINTESTINAL: Abdomen soft, non-tender, nondistended. MUSCULOSKELETAL: Right knee with swelling, warmth, no erythema. Right foot wrapped in bandages wound VAC in place. Procedures 10/08/17 Right foot and ankle incision drainage, 5th metatarsal resection, 5th digit amputation 10/25/17 Incision and drainage Right foot/ankle abscess with bone biopsy right 4th metatarsal base; wound vac placement Medications and IVs Current Medications Piperacillin Sod/ Tazobactam Sod 100 ml @ 200 mls/hr ONCE STAT IV Last administered on 10/07/17at 15:56; Start 10/07/17 at 14:48; Stop 10/07/17 at 15:17 ; Status DC Vancomycin HCl 1000 mg/Sodium Chloride 250 ml @ 250 mls/hr ONCE STAT IV Last administered on 10/07/17at 16:32; Start 10/07/17 at 14:48; Stop 10/07/17 at 15:47 ; Status DC Sodium Chloride 1,000 ml @ 999 mls/hr BOLUS ONCE IV Last administered on 10/07at 15:57; Start 10/07/17 at 15:00; Stop 10/07/17 at 16:00; Status DC Oxycodone/ Acetaminophen (Percocet 5-325 Mg) 1 tab ONCE ONCE PO Last administered on 10/07/17at 16:31; Start 10/07/17 at 16:30; Stop 10/07/17 at 16:31 ; Status DC Sodium Chloride (NS Flush) 2 ml UNSCH PRN IV FLUSH FLUSH AFTER USING IV ACCESS Last administered on 10/21/17at 23:13; Start 10/07/17 at 16:45 Sodium Chloride (NS Flush) 2 ml BID IV FLUSH Last administered on 10/28/17at 21: 08; Start 10/07/17 at 21:00 Naloxone HCl (Narcan Inj) 0.4 mg UNSCH PRN IV PUSH SEE LABEL COMMENTS; Start at 16:45 Pharmacy Profile Note 0 ml @ 0 mls/hr UNSCH OTHER ; Start 10/07/17 at 17:00; Stop 10/11/17 at 13:39; Status DC Piperacillin Sod/ Tazobactam Sod 100 ml @ 200 mls/hr Q6H IV Last administered on 10/09/17at 09:27; Start 10/07/17 at 22:00; Stop 10/09/17 at 15:14; Status DC Sodium Chloride 500 ml @ 500 mls/hr BOLUS ONCE IV Last administered on at 18:50; Start 10/07/17 at 17:30; Stop 10/07/17 at 18:29; Status DC Tramadol HCl (Ultram) 50 mg Q12H PRN PO PAIN SCALE 5 TO 10 Last administered on 10/09/17at 09:27; Start 10/07/17 at 17:30; Stop 10/09/17 at 10:48; Status DC Vancomycin HCl 1250 mg/Sodium Chloride 262.5 ml @ 250 mls/hr Q24H IV Last administered on 10/10/17at 12:14; Start 10/08/17 at 11:00; Stop 10/10/17 at 14:01 ; Status DC Miscellaneous Information SPECIFIC LAB TO BE LUCERO... ONCE ONCE .XX Last administered on 10/10/17at 12:14; Start 10/10/17 at 10:45; Stop 10/10/17 at 10:46 ; Status DC Insulin Aspart (NovoLOG SUPPLEMENTAL SCALE) 1 ACHS SLIDING SCALE SQ Last administered on 10/08/17at 10:19; Start 10/07/17 at 21:00; Stop 10/08/17 at 10:27 ; Status DC Dextrose (D50w (Vial) Inj) 50 ml UNSCH PRN IV PUSH HYPOGLYCEMIA - SEE COMMENTS ; Start 10/07/17 at 19:15; Stop 10/08/17 at 10:27; Status DC Glucagon (Glucagon Inj) 1 mg UNSCH PRN OTHER HYPOGLYCEMIA-SEE COMMENTS; Start 10/07/17 at 19:15; Stop 10/08/17 at 10:27; Status DC Heparin Sodium (Porcine) (Heparin Inj) 5,000 units Q8HR SQ Last administered on 10/24/17at 21:32; Start 10/08/17 at 06:00; Stop 10/25/17 at 12:15; Status DC Acetaminophen/ Hydrocodone Bitart ([place] 5-325 Mg) 1 tab ONCE ONCE PO Last administered on 10/08/17at 01:21; Start 10/07/17 at 23:45; Stop 10/07/17 at 23:46 ; Status DC Gadodiamide (Omniscan Pf Inj) 14 ml STK-MED ONCE IVCONTRAST Last administered on 10/08/17at 09:53; Start 10/08/17 at 09:51; Stop 10/08/17 at 09:52; Status DC Dextrose (D50w (Vial) Inj) 50 ml UNSCH PRN IV PUSH HYPOGLYCEMIA-SEE COMMENTS; Start 10/08/17 at 10:30 Glucagon (Glucagon Inj) 1 mg UNSCH PRN OTHER HYPOGLYCEMIA-SEE COMMENTS; Start 10/08/17 at 10:30 Insulin Aspart (NovoLOG SUPPLEMENTAL SCALE) 1 ACHS SLIDING SCALE SQ Last administered on 10/29/17at 08:00; Start 10/08/17 at 12:00 Lactobacillus Acidophilus (Lactinex) 1 tab Q12HR PO Last administered on at 08:17; Start 10/08/17 at 21:00 Sodium Chloride 1,000 ml @ 84 mls/hr [id number] IV Last administered on at 21:04; Start 10/08/17 at 11:00; Stop 10/10/17 at 07:31; Status DC Bupivacaine HCl (Marcaine Pf 0.25% Inj) 30 ml STK-MED ONCE .ROUTE Last administered on 10/08/17at 16:28; Start 10/08/17 at 12:51; Stop 10/08/17 at 12:52 ; Status DC Morphine Sulfate (*morphine INJ PERIprocedure ONLY) 10 mg STK-MED ONCE .ROUTE Last administered on 10/08/17at 17:35; Start 10/08/17 at 17:35; Stop 10/08/17 at 17:36; Status DC Midazolam HCl (Versed Inj) 2 mg STK-MED ONCE .ROUTE ; Start 10/08/17 at 17:36; Stop 10/08/17 at 17:37; Status DC Fentanyl Citrate (fentaNYL INJ) 100 mcg STK-MED ONCE .ROUTE ; Start 10/08/17 at 17:36; Stop 10/08/17 at 17:37; Status DC Morphine Sulfate (Morphine Inj) 4 mg STK-MED ONCE .ROUTE ; Start 10/08/17 at 17: 36; Stop 10/08/17 at 17:37; Status DC Miscellaneous Information ALL NURSING DEPARTME... UNSCH PRN .XX SEE LABEL COMMENTS; Start 10/08/17 at 17:25; Stop 10/09/17 at 17:24; Status DC Acetaminophen (Tylenol) 650 mg Q4H PRN PO fever > 101, ZIMMERMAN; Start 10/09/17 at 01 :15; Stop 10/13/17 at 12:38; Status DC Insulin Detemir (Levemir Inj) 10 units BID SQ Last administered on 10/09/17at 21 :03; Start 10/09/17 at 11:00; Stop 10/10/17 at 07:31; Status DC Acetaminophen/ Hydrocodone Bitart ([place] 5-325 Mg) 1 tab Q4H PRN PO pain2-10 Last administered on 10/13/17at 05:47; Start 10/09/17 at 10:15; Stop 10/13/17 at 12:38; Status DC Rocuronium [place] (Zemuron Inj) 50 mg STK-MED ONCE IV PUSH ; Start 10/08/17 at 12:00; Stop 10/09/17 at 14:48; Status DC Phenylephrine HCl (Neosynephrine/ NS 1000 Mcg/10ml Syr) 1,000 mcg STK-MED ONCE IV ; Start 10/08/17 at 12:00; Stop 10/09/17 at 14:48; Status DC Propofol (Diprivan 200 Mg/20 ml Inj) 200 mg STK-MED ONCE IV ; Start 10/08/17 at 12:00; Stop 10/09/17 at 14:48; Status DC Ceftriaxone Sodium 2000 mg/ Sodium Chloride 100 ml @ 200 mls/hr Q24H IV Last administered on 10/10/17at 16:44; Start 10/09/17 at 17:00; Stop 10/11/17 at 13:39 ; Status DC Sodium Chloride 250 ml @ 15 mls/hr ONCE ONCE IV Last administered on at 09:45; Start 10/10/17 at 07:30; Stop 10/11/17 at 00:09; Status DC Acetaminophen (Tylenol) 650 mg Q4H PRN PO SEE LABEL COMMENTS Last administered on 10/10/17at 16:45; Start 10/10/17 at 07:30; Stop 10/10/17 at 23:59; Status DC Diphenhydramine HCl (Benadryl) 25 mg Q4H PRN PO SEE LABEL COMMENTS Last administered on 10/10/17at 16:44; Start 10/10/17 at 07:30; Stop 10/10/17 at 23:59 ; Status DC Insulin Detemir (Levemir Inj) 15 units BID SQ Last administered on 10/11/17at 08 :09; Start 10/10/17 at 09:00; Stop 10/11/17 at 20:22; Status DC Sodium Chloride 1,000 ml @ 84 mls/hr [id number] IV Last administered on 10/16/17at 08:56; Start 10/10/17 at 11:00; Stop 10/16/17 at 19:02; Status DC Bupivacaine HCl (Marcaine Pf 0.25% Inj) 30 ml STK-MED ONCE .ROUTE ; Start at 12:08; Stop 10/10/17 at 12:09; Status DC Neomycin/Polymyxin (Neosporin G.u. Irr) 2 ml STK-MED ONCE .ROUTE ; Start at 12:13; Stop 10/10/17 at 12:14; Status DC Vancomycin HCl 1250 mg/Sodium Chloride 262.5 ml @ 250 mls/hr Q18H IV Last administered on 10/11/17at 05:14; Start 10/11/17 at 06:00; Stop 10/11/17 at 13:39 ; Status DC Miscellaneous Information SPECIFIC LAB TO BE LUCERO... ONCE ONCE .XX ; Start 10/12 at 17:45; Stop 10/12/17 at 17:45; Status DC Fentanyl Citrate (fentaNYL INJ) 100 mcg STK-MED ONCE .ROUTE ; Start 10/10/17 at 14:39; Stop 10/10/17 at 14:40; Status DC Midazolam HCl (Versed Inj) 2 mg STK-MED ONCE .ROUTE ; Start 10/10/17 at 14:39; Stop 10/10/17 at 14:40; Status DC Miscellaneous Information ALL NURSING DEPARTME... UNSCH PRN .XX SEE LABEL COMMENTS; Start 10/10/17 at 14:30; Stop 10/11/17 at 14:29; Status DC Gadodiamide (Omniscan Pf Inj) 14 ml STK-MED ONCE IVCONTRAST Last administered on 10/11/17at 10:03; Start 10/11/17 at 10:03; Stop 10/11/17 at 10:04; Status DC Cefazolin Sodium/ Dextrose 50 ml @ 150 mls/hr Q8H IV Last administered on 10/13at 05:55; Start 10/11/17 at 14:00; Stop 10/13/17 at 13:26; Status DC Insulin Detemir (Levemir Inj) 20 units HS SQ Last administered on 10/11/17at 22: 54; Start 10/11/17 at 21:00; Stop 10/12/17 at 13:47; Status DC Insulin Aspart (NovoLOG INJ) 5 units TIDAC SQ Last administered on 10/29/17at 08 :00; Start 10/12/17 at 08:00 Gadodiamide (Omniscan Pf Inj) 18 ml STK-MED ONCE IVCONTRAST Last administered on 10/12/17at 08:53; Start 10/12/17 at 08:53; Stop 10/12/17 at 08:54; Status DC Insulin Detemir (Levemir Inj) 15 units HS SQ Last administered on 10/27/17at 21: 51; Start 10/12/17 at 21:00 Lidocaine HCl (Xylocaine-Mpf 1% Inj) 5 ml STK-MED ONCE OTHER ; Start 10/10/17 at 12:00; Stop 10/13/17 at 09:31; Status DC Phenylephrine HCl (Neosynephrine/ NS 1000 Mcg/10ml Syr) 1,000 mcg STK-MED ONCE IV ; Start 10/10/17 at 12:00; Stop 10/13/17 at 09:31; Status DC Ephedrine Sulfate (ePHEDrine/NS 25 MG/5 ML SYR) 25 mg STK-MED ONCE IV ; Start at 12:00; Stop 10/13/17 at 09:31; Status DC Dexamethasone Sodium Phosphate (Decadron Inj) 4 mg STK-MED ONCE IV ; Start 10/10 at 12:00; Stop 10/13/17 at 09:31; Status DC Ondansetron HCl (Zofran Inj) 4 mg STK-MED ONCE IV ; Start 10/10/17 at 12:00; Stop 10/13/17 at 09:31; Status DC Propofol (Diprivan 200 Mg/20 ml Inj) 200 mg STK-MED ONCE IV ; Start 10/10/17 at 12:00; Stop 10/13/17 at 09:31; Status DC Acetaminophen (Tylenol) 500 mg Q4H PRN PO Headache, fever, pain 1-4; Start at 13:15; Stop 10/13/17 at 13:15; Status DC Acetaminophen/ Hydrocodone Bitart ([place] 7.5-325 Mg) 1 tab Q6H PRN PO PAIN SCALE 5 TO 10 Last administered on 10/29/17 09:46; Start 10/13/17 at 12:45 Morphine Sulfate (Morphine Inj) 5 mg Q4H PRN IV PUSH BREAKTHROUGH PAIN Last administered on 10/29/17 05:48; Start 10/13/17 at 12:45 Morphine Sulfate (Morphine Inj) 4 mg Q3H PRN IV PUSH Prior to dressing change Last administered on 10/28/17 13:25; Start 10/13/17 at 12:45 Temazepam (Restoril) 15 mg HS PRN PO INSOMNIA Last administered on 10/28/17 21 :54; Start 10/13/17 at 12:45 Acetaminophen (Tylenol) 500 mg Q4H PRN PO Headache, fever, pain 1-4 Last administered on 10/29/17 05:47; Start 10/13/17 at 13:15 Ceftriaxone Sodium 2000 mg/ Sodium Chloride 100 ml @ 200 mls/hr Q24H IV Last administered on 10/28/17 13:08; Start 10/13/17 at 14:00 Iohexol (Omnipaque 350 Inj) 100 ml STK-MED ONCE IVCONTRAST Last administered on 10/13/17 22:47; Start 10/13/17 at 22:46; Stop 10/13/17 at 22:47; Status DC Levofloxacin (Levaquin) 500 mg DAILY PO Last administered on 10/28/17 08:53; Start 10/14/17 at 17:00; Stop 10/28/17 at 11:12; Status DC Linezolid 300 ml @ 300 mls/hr Q12H IV Last administered on 10/23/17 04:38; Start 10/14/17 at 17:00; Stop 10/23/17 at 13:56; Status DC Potassium Chloride (KCl) 20 meq ONCE ONCE PO Last administered on 10/14/17 18 :52; Start 10/14/17 at 18:30; Stop 10/14/17 at 18:31; Status DC Potassium Chloride (KCl) 20 meq Q12HR PO Last administered on 10/17/17 08:40; Start 10/14/17 at 21:00; Stop 10/17/17 at 20:59; Status DC Lactated Ringer's 1,000 ml @ 30 mls/hr Q24H PRN IV SEE LABEL COMMENTS; Start at 04:45; Stop 10/15/17 at 22:50; Status DC Sodium Chloride 500 ml @ 30 mls/hr [id number] PRN IV SEE LABEL COMMENTS; Start at 04:45; Stop 10/15/17 at 22:50; Status DC Povidone Iodine (Betadine 5% Antisepsis Kit) 1 applic [employer]ODUCTION [employer]CH[employer] PRN EACH NARE SEE LABEL COMMENTS; Start 10/15/17 at 04:45; Stop 10/15/17 at 22:50; Status DC Chlorhexidine Gluconate (Chlorhexidine 2% Cloth) 3 pack [employer]ODUCTION [employer]CH[employer]IST PRN TOPICAL SEE LABEL COMMENTS; Start 10/15/17 at 04:45; Stop 10/18/17 at 04:44; Status DC Lidocaine HCl (Xylocaine 2% Inj) 50 ml STK-MED ONCE .ROUTE ; Start 10/15/17 at 19:57; Stop 10/15/17 at 19:58; Status DC Bupivacaine HCl (Marcaine Pf 0.5% Inj) 30 ml STK-MED ONCE .ROUTE Last administered on 10/15/17at 20:36; Start 10/15/17 at 19:57; Stop 10/15/17 at 19:58 ; Status DC Vancomycin HCl (Vancomycin Inj) 500 mg STK-MED ONCE .ROUTE Last administered on 10/15/17at 21:07; Start 10/15/17 at 21:07; Stop 10/15/17 at 21:08; Status DC Fentanyl Citrate (fentaNYL INJ) 100 mcg STK-MED ONCE .ROUTE ; Start 10/15/17 at 22:18; Stop 10/15/17 at 22:19; Status DC Miscellaneous Information (Post-op Orders (for Pharmacy)) STAT ONCE XX ; Start 10/15/17 at 22:30; Stop 10/15/17 at 22:49; Status DC Miscellaneous Information ALL NURSING DEPARTME... UNSCH PRN .XX SEE LABEL COMMENTS; Start 10/15/17 at 22:15; Stop 10/16/17 at 22:14; Status DC Morphine Sulfate (Morphine Inj) 5 mg ONCE ONCE IV PUSH Last administered on 10/16/17at 15:14; Start 10/16/17 at 15:00; Stop 10/16/17 at 15:01; Status DC Diatrizoate Meglum/ Diatrizoate Sod (Md [place] Liq) 18 ml ONCE ONCE PO Last administered on 10/16/17at 17:18; Start 10/16/17 at 15:45; Stop 10/16/17 at 15: 46; Status DC Lactated Ringer's 1,000 ml @ 50 mls/hr Q20H IV Last administered on 10/23/17at 13:05; Start 10/16/17 at 19:15; Stop 10/23/17 at 13:51; Status DC Iohexol (Omnipaque 350 Inj) 90 ml STK-MED ONCE IVCONTRAST Last administered on 10/16/17at 20:25; Start 10/16/17 at 20:22; Stop 10/16/17 at 20:23; Status DC Lidocaine HCl (Xylocaine-Mpf 1% Inj) 5 ml STK-MED ONCE OTHER ; Start 10/15/17 at 12:00; Stop 10/17/17 at 12:19; Status DC Propofol (Diprivan 200 Mg/20 ml Inj) 200 mg STK-MED ONCE IV ; Start 10/15/17 at 12:00; Stop 10/17/17 at 12:19; Status DC Lidocaine HCl (Xylocaine 1% Inj) 9 ml STK-MED ONCE SQ Last administered on at 14:59; Start 10/20/17 at 14:59; Stop 10/20/17 at 15:00; Status DC Collagenase (Santyl Oint) 1 applic DAILY TOPICAL Last administered on at 08:19; Start 10/22/17 at 12:00 Gabapentin (Neurontin) 600 mg TID PO Last administered on 10/29/17at 08:17; Start 10/23/17 at 18:00 Furosemide (Lasix Inj) 20 mg ONCE ONCE IV PUSH Last administered on 10/23/17at 14:09; Start 10/23/17 at 14:00; Stop 10/23/17 at 14:01; Status DC Linezolid (Zyvox) 600 mg Q12HR PO Last administered on 10/28/17at 08:53; Start 10/23/17 at 21:00; Stop 10/28/17 at 11:12; Status DC Gadodiamide (Omniscan Pf Inj) 14 ml STK-MED ONCE IVCONTRAST Last administered on 10/24/17at 10:48; Start 10/24/17 at 10:48; Stop 10/24/17 at 10:49; Status DC Bupivacaine HCl (Marcaine Pf 0.5% Inj) 30 ml STK-MED ONCE .ROUTE ; Start at 07:26; Stop 10/25/17 at 07:27; Status DC Acetaminophen 100 ml @ As Directed STK-MED ONCE IV ; Start 10/25/17 at 07:33; Stop 10/25/17 at 07:34; Status DC Midazolam HCl (Versed Inj) 2 mg STK-MED ONCE .ROUTE ; Start 10/25/17 at 09:32; Stop 10/25/17 at 09:33; Status DC Fentanyl Citrate (fentaNYL INJ) 100 mcg STK-MED ONCE .ROUTE ; Start 10/25/17 at 09:33; Stop 10/25/17 at 09:34; Status DC Miscellaneous Information ALL NURSING DEPARTME... UNSCH PRN .XX SEE LABEL COMMENTS; Start 10/25/17 at 12:30; Stop 10/26/17 at 12:29; Status DC Sodium Chloride 1,000 ml @ 50 mls/hr Q20H IV Last administered on 10/29/17at 05 :50; Start 10/27/17 at 13:30 Lidocaine HCl (Xylocaine-Mpf 1% Inj) 5 ml STK-MED ONCE OTHER ; Start 10/25/17 at 12:00; Stop 10/28/17 at 09:30; Status DC Phenylephrine HCl (Neosynephrine/ NS 1000 Mcg/10ml Syr) 1,000 mcg STK-MED ONCE IV ; Start 10/25/17 at 12:00; Stop 10/28/17 at 09:30; Status DC Dexamethasone Sodium Phosphate (Decadron Inj) 4 mg STK-MED ONCE IV ; Start 10/25 at 12:00; Stop 10/28/17 at 09:30; Status DC Ondansetron HCl (Zofran Inj) 4 mg STK-MED ONCE IV ; Start 10/25/17 at 12:00; Stop 10/28/17 at 09:30; Status DC Propofol (Diprivan 200 Mg/20 ml Inj) 200 mg STK-MED ONCE IV ; Start 10/25/17 at 12:00; Stop 10/28/17 at 09:30; Status DC Heparin Sodium (Porcine) (Heparin Inj) 5,000 units Q12H SQ Last administered on 10/29/17at 03:20; Start 10/28/17 at 15:00 A/P Problem List: (1) Osteomyelitis of foot ICD Code: M86.9 - Osteomyelitis, unspecified (2) Leukocytosis ICD Code: D72.829 - Elevated white blood cell count, unspecified (3) Dehydration with hyponatremia ICD Code: E87.1 - Hypo-osmolality and hyponatremia (4) Acute kidney injury ICD Code: N17.9 - Acute kidney failure, unspecified (5) Sepsis ICD Code: A41.9 - Sepsis, unspecified organism Status: Acute (6) Diabetic foot ulcer ICD Code: E11.621 - Type 2 diabetes mellitus with foot ulcer; L97.509 - Non- pressure chronic ulcer of other part of unspecified foot with unspecified severity Status: Acute (7) Acute renal failure superimposed on stage 3 chronic kidney disease ICD Code: N17.9 - Acute kidney failure, unspecified; N18.3 - Chronic kidney disease, stage 3 (moderate) (8) Bacteremia due to Gram-positive bacteria ICD Code: R78.81 - Bacteremia (9) Postoperative anemia ICD Code: D64.9 - Anemia, unspecified Assessment and Plan This is a 57-year-old male who presented with sepsis Sepsis - Secondary to diabetic foot infection, bacteremia, right foot osteomyelitis: Appreciate infectious disease recommendations. He does have a right knee pleural effusion with no growth. -On Rocephin. Levaquin and Zyvox DC'd yesterday.. Wound culture growing staph and strep not A/B/D. New cultures obtained in surgery are growing staph aureus. -Patient continues to have low-grade fever. Currently on Rocephin. Continue management with Rocephin. Right foot osteomyelitis: Appreciate podiatry recommendations. -Status post incision and drainage, fifth metatarsal resection, fifth digit amputation on 10/08/17. Podiatry is recommending IV antibiotics on discharge. Final antibiotic recommendations per infectious disease. Continue wound care. S/P irrigation/debridement with wound vac placement 10/25/17. Right knee effusion: - Improving. Continue antibiotics. Appreciate orthopedic surgery recommendations. So far cultures are negative. Patient refusing I&D at the moment. Bilateral pleural effusion: -Appreciate pulmonology recommendations. Status post right-sided thoracentesis. Cytology is negative for malignant cells. Peripheral vascular disease: -Appreciate vascular surgery recommendations. Per vascular surgery, no surgical intervention is planned. Postoperative anemia: -Received transfusion of 2 units PRBCs. Monitor H&H. Diabetes mellitus type 2: -Continue Levemir. Monitor Accu-Cheks and cover with sliding scale insulin. Continue preprandial insulin as well. Acute kidney injury superimposed on chronic kidney disease stage III -Creatinine continues to improve. Continue with light hydration with IV fluids. Hypokalemia -Replenish as needed. DVT prophylaxis: Heparin. Problem Qualifiers (1) Sepsis: Qualified Codes: A41.9 - Sepsis, unspecified organism (2) Diabetic foot ulcer: Qualified Codes: E10.621 - Type 1 diabetes mellitus with foot ulcer; L97.419 - Non-pressure chronic ulcer of right heel and midfoot with unspecified severity Petty Ospina MD Oct 29, 2017 10:49
[2017-10-29 12:05] VITALS: BP 144/92; PULSE 123; RESP 18; TEMP 102.1; O2SAT 90
[2017-10-29] MEDS: cefTRIAXone INJ 2,000 MG in SODIUM CHLORIDE 0.9% INJ 100 ML IV SCH (13:07)
[2017-10-29 16:05] VITALS: BP 158/82; PULSE 112; RESP 18; TEMP 102.6; O2SAT 94
--- NOTE | 2017-10-29 19:29 | PD.POD ---
Subjective Pain score: 3 Remarks Patient sleeping upon entering the room he awoke and he stated he was in minimal pain he did PT earlier today which was out of bed to chair and he was happy Past Med/Surg/Social History Past Medical History Endocrine: REPORTS HX OF: Diabetes mellitus Genitourinary: REPORTS HX OF: Other history (Kidney stones ) Past Surgical History Musculoskeletal: REPORTS HX OF: Other musculoskeletal srg (Right foot 5th metatarsal I&D) Social History Smoking Status: Former Smoker Objective Vital Signs Vital Signs Date Time Temp Pulse Resp B/P (MAP) Pulse Ox O2 Delivery O2 Flow Rate FiO2 10/29/17 16:05 102.6 112 18 158/82 (107) 94 10/29/17 12:05 102.1 123 18 144/92 (109) 90 10/29/17 09:19 Nasal Cannula 2.00 10/29/17 08:05 99.2 99 18 126/69 (88) 93 10/29/17 04:00 100.8 105 19 165/88 (113) 97 10/29/17 00:00 98.3 88 20 95/68 (77) 94 10/28/17 20:00 Nasal Cannula 2.00 10/28/17 20:00 100.3 104 18 114/73 (87) 95 Coded Allergies: No Known Allergies (Unverified Adverse Reaction, Unknown, 09/15/17) Uncoded Allergies: rwandan dressing (Allergy, Severe, Anaphylaxis, 10/07/17) Medications and IVs Administered Medications Medications (Trade) Dose Ordered Sig/Anna Route PRN Reason Start Time Stop Time Status Last Admin Dose Admin Sodium Chloride (NS Flush) 2 ml UNSCH PRN IV FLUSH FLUSH AFTER USING IV ACCESS 10/07/17 16:45 10/21/17 23:13 Sodium Chloride (NS Flush) 2 ml BID IV FLUSH 10/07/17 21:00 10/28/17 21:08 Insulin Aspart (NovoLOG SUPPLEMENTAL SCALE) 1 ACHS SLIDING SCALE SQ 10/08/17 12:00 10/29/17 17:00 Lactobacillus Acidophilus (Lactinex) 1 tab Q12HR PO 10/08/17 21:00 10/29/17 08:17 Insulin Aspart (NovoLOG INJ) 5 units TIDAC SQ 10/12/17 08:00 10/29/17 17:00 Insulin Detemir (Levemir Inj) 15 units HS SQ 10/12/17 21:00 10/27/17 21:51 Acetaminophen/ Hydrocodone Bitart ([place] 7.5-325 Mg) 1 tab Q6H PRN PO PAIN SCALE 5 TO 10 10/13/17 12:45 10/29/17 09:46 Morphine Sulfate (Morphine Inj) 5 mg Q4H PRN IV PUSH BREAKTHROUGH PAIN 10/13/17 12:45 10/29/17 12:22 Morphine Sulfate (Morphine Inj) 4 mg Q3H PRN IV PUSH Prior to dressing change 10/13/17 12:45 10/28/17 13:25 Temazepam (Restoril) 15 mg HS PRN PO INSOMNIA 10/13/17 12:45 10/28/17 21:54 Acetaminophen (Tylenol) 500 mg Q4H PRN PO Headache, fever, pain 1-4 10/13/17 13:15 10/29/17 18:38 Ceftriaxone Sodium 2000 mg/ Sodium Chloride 100 ml @ 200 mls/hr Q24H IV 10/13/17 14:00 10/29/17 13:07 Collagenase (Santyl Oint) 1 applic DAILY TOPICAL 10/22/17 12:00 10/29/17 08:19 Gabapentin (Neurontin) 600 mg TID PO 10/23/17 18:00 10/29/17 17:46 Sodium Chloride 1,000 ml @ 50 mls/hr Q20H IV 10/27/17 13:30 10/29/17 05:50 Heparin Sodium (Porcine) (Heparin Inj) 5,000 units Q12H SQ 10/28/17 15:00 10/29/17 13:07 Other Results [facility] OF PATH[facility] [address], [address], [place] [address] [email or web address] REPORT Patient: ROLAND JEREZ Specimen #: [id number] Page 1 of 1 [facility] OF PATHOLOG[facility] [address], [address], [place] [address] [email or web address] PATHOLOGY REPORT Page 1 of 1 CLINICAL HISTORY: Right foot ulcers / osteomyelitis. TISSUE: RIGHT 4TH METATARSAL BONE BIOPSY GROSS DESCRIPTION: 0.6 x 0.4 x 0.2 cm gritty souza red fragment of tissue. TE 1 after decalcification. DXN/sara FINAL DIAGNOSIS: BONE, RIGHT 4TH METATARSAL, BIOPSY: - CHRONIC OSTEOMYELITIS. Exam-Podiatry Remarks Right lower extremity examined with wound VAC intact to lateral fifth ray amputation site with minimal redness minimal drainage seen within wound VAC, ankle incision had healed, and medial arch incision with sutures intact minimal redness Left lower extremity partial-thickness ulcer plantar left fifth MPJ approximately 0.5 cm 0.5 cm with minimal depth no drainage or redness Bilateral feet are warm sensation decreased light touch Assessment & Plan A/P Right foot ankle ulcer abscess osteomyelitis, fourth metatarsal osteomyelitis Left foot ulcer resolved abscess Continue wound VAC changes, prefer medical management of osteomyelitis at this point. Follow-up 3-5 days continue wound care per nursing. Mitchel Aguayo DPM Oct 29, 2017 19:29
--- NOTE | 2017-10-29 19:57 | HHI.PR ---
Subjective Remarks 57 YOWm with DM,Diabetic foot ulcer,Pl eff, Lung infilt US chest Mod to large Rt Pl eff no Fever Breathiing better Pl fluid cytology neg uses 02 off and on Low grade fever Objective Vital Signs Vital Signs Date Time Temp Pulse Resp B/P (MAP) Pulse Ox O2 Delivery O2 Flow Rate FiO2 10/29/17 16:05 102.6 112 18 158/82 (107) 94 10/29/17 12:05 102.1 123 18 144/92 (109) 90 10/29/17 09:19 Nasal Cannula 2.00 10/29/17 08:05 99.2 99 18 126/69 (88) 93 10/29/17 04:00 100.8 105 19 165/88 (113) 97 10/29/17 00:00 98.3 88 20 95/68 (77) 94 10/28/17 20:00 Nasal Cannula 2.00 10/28/17 20:00 100.3 104 18 114/73 (87) 95 I/O 10/28/17 10/28/17 10/28/17 10/29/17 10/29/17 10/29/17 07:00 15:00 23:00 07:00 15:00 23:00 Intake Total 240 ml 480 ml 560 ml 940 ml Output Total 900 ml 1200 ml 1900 ml 600 ml Balance -660 ml -720 ml -1340 ml 340 ml Intake Oral 240 ml 480 ml 560 ml 940 ml Output Urine Total 900 ml 1200 ml 1900 ml 600 ml # Bowel Movements 1 0 3 1 Result Diagram: 10/28/17 0659 10/28/17 0659 Objective Remarks GENERAL: WBWN WM,NAD SKIN: Warm and dry. HEAD: Normocephalic. EYES: No scleral icterus. No injection or drainage. NECK: Supple, trachea midline. No JVD or lymphadenopathy. CARDIOVASCULAR: Regular rate and rhythm without murmurs, gallops, or rubs. RESPIRATORY: Breath sounds equal bilaterally. No accessory muscle use. Decreased BS at Bases GASTROINTESTINAL: Abdomen soft, non-tender, nondistended. MUSCULOSKELETAL: No cyanosis, or edema. Foot ulcer, VAC device BACK: Nontender without obvious deformity. No CVA tenderness. A/P Assessment and Plan Bilat Pl effusion Lung infilt/ septic emboli DM Foot Ulcer PLAN: Pl fluid cytology, cultures neg Cont Abx per ID Supplement 02 to keep sat >90% Curtis Liao MD Oct 29, 2017 19:57
[2017-10-29 20:00] VITALS: BP 121/71; PULSE 98; RESP 18; TEMP 99.4; O2SAT 92
[2017-10-29] MEDS: INSULIN DETEMIR 100 UNITS/ML VIAL SQ SCH (21:45)
[2017-10-30] VITALS: BP 121/61; PULSE 96; RESP 20; TEMP 99.5; O2SAT 95
[2017-10-30] MEDS: MORPHINE SULFATE 8 MG/ML INJ IV PUSH PRN ×4 (00:30→20:39)
[2017-10-30] MEDS: SODIUM CHLOR 0.9% 1000 ML INJ 1,000 ML IV SCH ×2 (01:41→20:44)
[2017-10-30] MEDS: HEPARIN SODIUM - SQ 10,000 UNITS/ML VIAL SQ SCH ×2 (03:00→13:04)
[2017-10-30 04:00] VITALS: BP 139/68; PULSE 110; RESP 20; TEMP 102.5; O2SAT 95
[2017-10-30] MEDS: ACETAMINOPHEN/HYDROcodone 325 MG/7.5 MG TAB PO PRN ×4 (05:28→23:37)
[2017-10-30] MEDS: ACETAMINOPHEN 500 MG CPLT PO PRN ×2 (05:28→12:32)
[2017-10-30] MEDS: INSULIN ASPART 1,000 UNITS/10 ML VIAL SQ SCH ×3 (08:00→17:00)
[2017-10-30] MEDS: INSULIN ASPART SUPPLEMENTAL SCALE SQ SCH ×4 (08:00→20:40)
[2017-10-30 08:05] VITALS: BP 136/78; PULSE 93; RESP 18; TEMP 99.4; O2SAT 93
[2017-10-30 08:19] LABS: MEAN CORPUSCULAR HEMOGLOBIN 27.8 PG (27.0-34.0); MEAN CORPUSCULAR HGB CONC 33.8 % (32.0-36.0); MEAN PLATELET VOLUME 7.6 FL (7.0-11.0); PLATELET COUNT 202 TH/MM3 (150-450); RED BLOOD COUNT 2.55 MIL/MM3 (4.50-5.90); RED CELL DISTRIBUTION WIDTH 14.6 % (11.6-17.2); WHITE BLOOD COUNT 5.2 TH/MM3 (4.0-11.0)
[2017-10-30] MEDS: GABAPENTIN 300 MG CAP PO SCH ×3 (08:21→17:12)
[2017-10-30] MEDS: SODIUM CHLORIDE 0.9% FLUSH 10 ML FLUSH IV FLUSH SCH ×2 (08:21→20:37)
[2017-10-30] MEDS: LACTOBACILLUS ACIDOPHILUS TAB PO SCH ×2 (08:21→20:38)
[2017-10-30] MEDS: COLLAGENASE OINT 30 GM TUBE TOPICAL SCH (08:23)
[2017-10-30 08:25] LABS: CALCIUM 8.4 MG/DL (8.5-10.1); CREATININE 0.95 MG/DL (0.60-1.30)
[2017-10-30 08:36] LABS: HEMATOCRIT 20.9 % (39.0-51.0); HEMOGLOBIN 7.1 GM/DL (13.0-17.0)
--- NOTE | 2017-10-30 10:16 | HHI.PR ---
Subjective Remarks Follow-up for osteomyelitis and left knee effusion Patient continues to spike fevers up to 102F. Patient stating that he wants to get up and go to the toilet and wants more therapy. Patient stated that he feels like he is getting a wound on his bottom and he is concerned about that and wants to get out of the bed into a chair. His nurse was at the bedside during part of the interview. Patient otherwise feels like he is getting better. No other complaints. Objective Vitals Vital Signs Date Time Temp Pulse Resp B/P (MAP) Pulse Ox O2 Delivery O2 Flow Rate FiO2 10/30/17 09:18 Nasal Cannula 2.00 10/30/17 08:05 99.4 93 18 136/78 (97) 93 10/30/17 04:00 102.5 110 20 139/68 (91) 95 10/30/17 00:00 99.5 96 20 121/61 (81) 95 10/29/17 20:00 99.4 98 18 121/71 (88) 92 10/29/17 20:00 Nasal Cannula 2.00 10/29/17 16:05 102.6 112 18 158/82 (107) 94 10/29/17 12:05 102.1 123 18 144/92 (109) 90 I/O 10/29/17 10/29/17 10/29/17 10/30/17 10/30/17 10/30/17 07:00 15:00 23:00 07:00 15:00 23:00 Intake Total 1560 ml 940 ml 800 ml Output Total 1900 ml 600 ml 2150 ml Balance -340 ml 340 ml -1350 ml Intake Oral 560 ml 940 ml 800 ml IV Total 1000 ml Output Urine Total 1900 ml 600 ml 2150 ml # Bowel Movements 3 1 0 Result Diagram: 10/30/17 0630 10/30/17 0630 Objective Remarks GENERAL: in NAD SKIN: Sacral gluteal area with macular pink rash. CARDIOVASCULAR: Regular rate and rhythm without murmurs, gallops, or rubs. RESPIRATORY: Breath sounds equal bilaterally. No accessory muscle use. GASTROINTESTINAL: Abdomen soft, non-tender, nondistended. MUSCULOSKELETAL: Right knee with swelling. No erythema or warmth. Right foot wrapped in bandages wound VAC in place. Procedures 10/08/17 Right foot and ankle incision drainage, 5th metatarsal resection, 5th digit amputation 10/25/17 Incision and drainage Right foot/ankle abscess with bone biopsy right 4th metatarsal base; wound vac placement Medications and IVs Current Medications Piperacillin Sod/ Tazobactam Sod 100 ml @ 200 mls/hr ONCE STAT IV Last administered on 10/07/17at 15:56; Start 10/07/17 at 14:48; Stop 10/07/17 at 15:17 ; Status DC Vancomycin HCl 1000 mg/Sodium Chloride 250 ml @ 250 mls/hr ONCE STAT IV Last administered on 10/07/17at 16:32; Start 10/07/17 at 14:48; Stop 10/07/17 at 15:47 ; Status DC Sodium Chloride 1,000 ml @ 999 mls/hr BOLUS ONCE IV Last administered on 10/07at 15:57; Start 10/07/17 at 15:00; Stop 10/07/17 at 16:00; Status DC Oxycodone/ Acetaminophen (Percocet 5-325 Mg) 1 tab ONCE ONCE PO Last administered on 10/07/17at 16:31; Start 10/07/17 at 16:30; Stop 10/07/17 at 16:31 ; Status DC Sodium Chloride (NS Flush) 2 ml UNSCH PRN IV FLUSH FLUSH AFTER USING IV ACCESS Last administered on 10/21/17at 23:13; Start 10/07/17 at 16:45 Sodium Chloride (NS Flush) 2 ml BID IV FLUSH Last administered on 10/29/17at 21: 44; Start 10/07/17 at 21:00 Naloxone HCl (Narcan Inj) 0.4 mg UNSCH PRN IV PUSH SEE LABEL COMMENTS; Start at 16:45 Pharmacy Profile Note 0 ml @ 0 mls/hr UNSCH OTHER ; Start 10/07/17 at 17:00; Stop 10/11/17 at 13:39; Status DC Piperacillin Sod/ Tazobactam Sod 100 ml @ 200 mls/hr Q6H IV Last administered on 10/09/17at 09:27; Start 10/07/17 at 22:00; Stop 10/09/17 at 15:14; Status DC Sodium Chloride 500 ml @ 500 mls/hr BOLUS ONCE IV Last administered on at 18:50; Start 10/07/17 at 17:30; Stop 10/07/17 at 18:29; Status DC Tramadol HCl (Ultram) 50 mg Q12H PRN PO PAIN SCALE 5 TO 10 Last administered on 10/09/17at 09:27; Start 10/07/17 at 17:30; Stop 10/09/17 at 10:48; Status DC Vancomycin HCl 1250 mg/Sodium Chloride 262.5 ml @ 250 mls/hr Q24H IV Last administered on 10/10/17at 12:14; Start 10/08/17 at 11:00; Stop 10/10/17 at 14:01 ; Status DC Miscellaneous Information SPECIFIC LAB TO BE LUCERO... ONCE ONCE .XX Last administered on 10/10/17at 12:14; Start 10/10/17 at 10:45; Stop 10/10/17 at 10:46 ; Status DC Insulin Aspart (NovoLOG SUPPLEMENTAL SCALE) 1 ACHS SLIDING SCALE SQ Last administered on 10/08/17at 10:19; Start 10/07/17 at 21:00; Stop 10/08/17 at 10:27 ; Status DC Dextrose (D50w (Vial) Inj) 50 ml UNSCH PRN IV PUSH HYPOGLYCEMIA - SEE COMMENTS ; Start 10/07/17 at 19:15; Stop 10/08/17 at 10:27; Status DC Glucagon (Glucagon Inj) 1 mg UNSCH PRN OTHER HYPOGLYCEMIA-SEE COMMENTS; Start 10/07/17 at 19:15; Stop 10/08/17 at 10:27; Status DC Heparin Sodium (Porcine) (Heparin Inj) 5,000 units Q8HR SQ Last administered on 10/24/17at 21:32; Start 10/08/17 at 06:00; Stop 10/25/17 at 12:15; Status DC Acetaminophen/ Hydrocodone Bitart (Alzada 5-325 Mg) 1 tab ONCE ONCE PO Last administered on 10/08/17at 01:21; Start 10/07/17 at 23:45; Stop 10/07/17 at 23:46 ; Status DC Gadodiamide (Omniscan Pf Inj) 14 ml STK-MED ONCE IVCONTRAST Last administered on 10/08/17at 09:53; Start 10/08/17 at 09:51; Stop 10/08/17 at 09:52; Status DC Dextrose (D50w (Vial) Inj) 50 ml UNSCH PRN IV PUSH HYPOGLYCEMIA-SEE COMMENTS; Start 10/08/17 at 10:30 Glucagon (Glucagon Inj) 1 mg UNSCH PRN OTHER HYPOGLYCEMIA-SEE COMMENTS; Start 10/08/17 at 10:30 Insulin Aspart (NovoLOG SUPPLEMENTAL SCALE) 1 ACHS SLIDING SCALE SQ Last administered on 10/30/17at 08:00; Start 10/08/17 at 12:00 Lactobacillus Acidophilus (Lactinex) 1 tab Q12HR PO Last administered on at 08:21; Start 10/08/17 at 21:00 Sodium Chloride 1,000 ml @ 84 mls/hr [id number] IV Last administered on at 21:04; Start 10/08/17 at 11:00; Stop 10/10/17 at 07:31; Status DC Bupivacaine HCl (Marcaine Pf 0.25% Inj) 30 ml STK-MED ONCE .ROUTE Last administered on 10/08/17at 16:28; Start 10/08/17 at 12:51; Stop 10/08/17 at 12:52 ; Status DC Morphine Sulfate (*morphine INJ PERIprocedure ONLY) 10 mg STK-MED ONCE .ROUTE Last administered on 10/08/17at 17:35; Start 10/08/17 at 17:35; Stop 10/08/17 at 17:36; Status DC Midazolam HCl (Versed Inj) 2 mg STK-MED ONCE .ROUTE ; Start 10/08/17 at 17:36; Stop 10/08/17 at 17:37; Status DC Fentanyl Citrate (fentaNYL INJ) 100 mcg STK-MED ONCE .ROUTE ; Start 10/08/17 at 17:36; Stop 10/08/17 at 17:37; Status DC Morphine Sulfate (Morphine Inj) 4 mg STK-MED ONCE .ROUTE ; Start 10/08/17 at 17: 36; Stop 10/08/17 at 17:37; Status DC Miscellaneous Information ALL NURSING DEPARTME... UNSCH PRN .XX SEE LABEL COMMENTS; Start 10/08/17 at 17:25; Stop 10/09/17 at 17:24; Status DC Acetaminophen (Tylenol) 650 mg Q4H PRN PO fever > 101, ZIMMERMAN; Start 10/09/17 at 01 :15; Stop 10/13/17 at 12:38; Status DC Insulin Detemir (Levemir Inj) 10 units BID SQ Last administered on 10/09/17at 21 :03; Start 10/09/17 at 11:00; Stop 10/10/17 at 07:31; Status DC Acetaminophen/ Hydrocodone Bitart (Alzada 5-325 Mg) 1 tab Q4H PRN PO pain2-10 Last administered on 10/13/17at 05:47; Start 10/09/17 at 10:15; Stop 10/13/17 at 12:38; Status DC Rocuronium [place] (Zemuron Inj) 50 mg STK-MED ONCE IV PUSH ; Start 10/08/17 at 12:00; Stop 10/09/17 at 14:48; Status DC Phenylephrine HCl (Neosynephrine/ NS 1000 Mcg/10ml Syr) 1,000 mcg STK-MED ONCE IV ; Start 10/08/17 at 12:00; Stop 10/09/17 at 14:48; Status DC Propofol (Diprivan 200 Mg/20 ml Inj) 200 mg STK-MED ONCE IV ; Start 10/08/17 at 12:00; Stop 10/09/17 at 14:48; Status DC Ceftriaxone Sodium 2000 mg/ Sodium Chloride 100 ml @ 200 mls/hr Q24H IV Last administered on 10/10/17at 16:44; Start 10/09/17 at 17:00; Stop 10/11/17 at 13:39 ; Status DC Sodium Chloride 250 ml @ 15 mls/hr ONCE ONCE IV Last administered on at 09:45; Start 10/10/17 at 07:30; Stop 10/11/17 at 00:09; Status DC Acetaminophen (Tylenol) 650 mg Q4H PRN PO SEE LABEL COMMENTS Last administered on 10/10/17at 16:45; Start 10/10/17 at 07:30; Stop 10/10/17 at 23:59; Status DC Diphenhydramine HCl (Benadryl) 25 mg Q4H PRN PO SEE LABEL COMMENTS Last administered on 10/10/17at 16:44; Start 10/10/17 at 07:30; Stop 10/10/17 at 23:59 ; Status DC Insulin Detemir (Levemir Inj) 15 units BID SQ Last administered on 10/11/17at 08 :09; Start 10/10/17 at 09:00; Stop 10/11/17 at 20:22; Status DC Sodium Chloride 1,000 ml @ 84 mls/hr [id number] IV Last administered on 10/16/17at 08:56; Start 10/10/17 at 11:00; Stop 10/16/17 at 19:02; Status DC Bupivacaine HCl (Marcaine Pf 0.25% Inj) 30 ml STK-MED ONCE .ROUTE ; Start at 12:08; Stop 10/10/17 at 12:09; Status DC Neomycin/Polymyxin (Neosporin G.u. Irr) 2 ml STK-MED ONCE .ROUTE ; Start at 12:13; Stop 10/10/17 at 12:14; Status DC Vancomycin HCl 1250 mg/Sodium Chloride 262.5 ml @ 250 mls/hr Q18H IV Last administered on 10/11/17at 05:14; Start 10/11/17 at 06:00; Stop 10/11/17 at 13:39 ; Status DC Miscellaneous Information SPECIFIC LAB TO BE LUCERO... ONCE ONCE .XX ; Start 10/12 at 17:45; Stop 10/12/17 at 17:45; Status DC Fentanyl Citrate (fentaNYL INJ) 100 mcg STK-MED ONCE .ROUTE ; Start 10/10/17 at 14:39; Stop 10/10/17 at 14:40; Status DC Midazolam HCl (Versed Inj) 2 mg STK-MED ONCE .ROUTE ; Start 10/10/17 at 14:39; Stop 10/10/17 at 14:40; Status DC Miscellaneous Information ALL NURSING DEPARTME... UNSCH PRN .XX SEE LABEL COMMENTS; Start 10/10/17 at 14:30; Stop 10/11/17 at 14:29; Status DC Gadodiamide (Omniscan Pf Inj) 14 ml STK-MED ONCE IVCONTRAST Last administered on 10/11/17at 10:03; Start 10/11/17 at 10:03; Stop 10/11/17 at 10:04; Status DC Cefazolin Sodium/ Dextrose 50 ml @ 150 mls/hr Q8H IV Last administered on 10/13at 05:55; Start 10/11/17 at 14:00; Stop 10/13/17 at 13:26; Status DC Insulin Detemir (Levemir Inj) 20 units HS SQ Last administered on 10/11/17at 22: 54; Start 10/11/17 at 21:00; Stop 10/12/17 at 13:47; Status DC Insulin Aspart (NovoLOG INJ) 5 units TIDAC SQ Last administered on 10/30/17at 08 :00; Start 10/12/17 at 08:00 Gadodiamide (Omniscan Pf Inj) 18 ml STK-MED ONCE IVCONTRAST Last administered on 10/12/17at 08:53; Start 10/12/17 at 08:53; Stop 10/12/17 at 08:54; Status DC Insulin Detemir (Levemir Inj) 15 units HS SQ Last administered on 10/29/17at 21: 45; Start 10/12/17 at 21:00 Lidocaine HCl (Xylocaine-Mpf 1% Inj) 5 ml STK-MED ONCE OTHER ; Start 10/10/17 at 12:00; Stop 10/13/17 at 09:31; Status DC Phenylephrine HCl (Neosynephrine/ NS 1000 Mcg/10ml Syr) 1,000 mcg STK-MED ONCE IV ; Start 10/10/17 at 12:00; Stop 10/13/17 at 09:31; Status DC Ephedrine Sulfate (ePHEDrine/NS 25 MG/5 ML SYR) 25 mg STK-MED ONCE IV ; Start at 12:00; Stop 10/13/17 at 09:31; Status DC Dexamethasone Sodium Phosphate (Decadron Inj) 4 mg STK-MED ONCE IV ; Start 10/10 at 12:00; Stop 10/13/17 at 09:31; Status DC Ondansetron HCl (Zofran Inj) 4 mg STK-MED ONCE IV ; Start 10/10/17 at 12:00; Stop 10/13/17 at 09:31; Status DC Propofol (Diprivan 200 Mg/20 ml Inj) 200 mg STK-MED ONCE IV ; Start 10/10/17 at 12:00; Stop 10/13/17 at 09:31; Status DC Acetaminophen (Tylenol) 500 mg Q4H PRN PO Headache, fever, pain 1-4; Start at 13:15; Stop 10/13/17 at 13:15; Status DC Acetaminophen/ Hydrocodone Bitart (Alzada 7.5-325 Mg) 1 tab Q6H PRN PO PAIN SCALE 5 TO 10 Last administered on 10/30/17 05:28; Start 10/13/17 at 12:45 Morphine Sulfate (Morphine Inj) 5 mg Q4H PRN IV PUSH BREAKTHROUGH PAIN Last administered on 10/30/17 08:22; Start 10/13/17 at 12:45 Morphine Sulfate (Morphine Inj) 4 mg Q3H PRN IV PUSH Prior to dressing change Last administered on 10/28/17 13:25; Start 10/13/17 at 12:45 Temazepam (Restoril) 15 mg HS PRN PO INSOMNIA Last administered on 10/28/17 21 :54; Start 10/13/17 at 12:45 Acetaminophen (Tylenol) 500 mg Q4H PRN PO Headache, fever, pain 1-4 Last administered on 10/30/17 05:28; Start 10/13/17 at 13:15 Ceftriaxone Sodium 2000 mg/ Sodium Chloride 100 ml @ 200 mls/hr Q24H IV Last administered on 10/29/17 13:07; Start 10/13/17 at 14:00 Iohexol (Omnipaque 350 Inj) 100 ml STK-MED ONCE IVCONTRAST Last administered on 10/13/17 22:47; Start 10/13/17 at 22:46; Stop 10/13/17 at 22:47; Status DC Levofloxacin (Levaquin) 500 mg DAILY PO Last administered on 10/28/17 08:53; Start 10/14/17 at 17:00; Stop 10/28/17 at 11:12; Status DC Linezolid 300 ml @ 300 mls/hr Q12H IV Last administered on 10/23/17 04:38; Start 10/14/17 at 17:00; Stop 10/23/17 at 13:56; Status DC Potassium Chloride (KCl) 20 meq ONCE ONCE PO Last administered on 10/14/17 18 :52; Start 10/14/17 at 18:30; Stop 10/14/17 at 18:31; Status DC Potassium Chloride (KCl) 20 meq Q12HR PO Last administered on 10/17/17at 08:40; Start 10/14/17 at 21:00; Stop 10/17/17 at 20:59; Status DC Lactated Ringer's 1,000 ml @ 30 mls/hr Q24H PRN IV SEE LABEL COMMENTS; Start at 04:45; Stop 10/15/17 at 22:50; Status DC Sodium Chloride 500 ml @ 30 mls/hr [id number] PRN IV SEE LABEL COMMENTS; Start at 04:45; Stop 10/15/17 at 22:50; Status DC Povidone Iodine (Betadine 5% Antisepsis Kit) 1 applic FLAMER SEALER PRN EACH NARE SEE LABEL COMMENTS; Start 10/15/17 at 04:45; Stop 10/15/17 at 22:50; Status DC Chlorhexidine Gluconate (Chlorhexidine 2% Cloth) 3 pack FLAMER SEALER PRN TOPICAL SEE LABEL COMMENTS; Start 10/15/17 at 04:45; Stop 10/18/17 at 04:44; Status DC Lidocaine HCl (Xylocaine 2% Inj) 50 ml STK-MED ONCE .ROUTE ; Start 10/15/17 at 19:57; Stop 10/15/17 at 19:58; Status DC Bupivacaine HCl (Marcaine Pf 0.5% Inj) 30 ml STK-MED ONCE .ROUTE Last administered on 10/15/17at 20:36; Start 10/15/17 at 19:57; Stop 10/15/17 at 19:58 ; Status DC Vancomycin HCl (Vancomycin Inj) 500 mg STK-MED ONCE .ROUTE Last administered on 10/15/17at 21:07; Start 10/15/17 at 21:07; Stop 10/15/17 at 21:08; Status DC Fentanyl Citrate (fentaNYL INJ) 100 mcg STK-MED ONCE .ROUTE ; Start 10/15/17 at 22:18; Stop 10/15/17 at 22:19; Status DC Miscellaneous Information (Post-op Orders (for Pharmacy)) STAT ONCE XX ; Start 10/15/17 at 22:30; Stop 10/15/17 at 22:49; Status DC Miscellaneous Information ALL NURSING DEPARTME... UNSCH PRN .XX SEE LABEL COMMENTS; Start 10/15/17 at 22:15; Stop 10/16/17 at 22:14; Status DC Morphine Sulfate (Morphine Inj) 5 mg ONCE ONCE IV PUSH Last administered on 10/16/17at 15:14; Start 10/16/17 at 15:00; Stop 10/16/17 at 15:01; Status DC Diatrizoate Meglum/ Diatrizoate Sod (Md Kapadia Liq) 18 ml ONCE ONCE PO Last administered on 10/16/17at 17:18; Start 10/16/17 at 15:45; Stop 10/16/17 at 15: 46; Status DC Lactated Ringer's 1,000 ml @ 50 mls/hr Q20H IV Last administered on 10/23/17at 13:05; Start 10/16/17 at 19:15; Stop 10/23/17 at 13:51; Status DC Iohexol (Omnipaque 350 Inj) 90 ml STK-MED ONCE IVCONTRAST Last administered on 10/16/17at 20:25; Start 10/16/17 at 20:22; Stop 10/16/17 at 20:23; Status DC Lidocaine HCl (Xylocaine-Mpf 1% Inj) 5 ml STK-MED ONCE OTHER ; Start 10/15/17 at 12:00; Stop 10/17/17 at 12:19; Status DC Propofol (Diprivan 200 Mg/20 ml Inj) 200 mg STK-MED ONCE IV ; Start 10/15/17 at 12:00; Stop 10/17/17 at 12:19; Status DC Lidocaine HCl (Xylocaine 1% Inj) 9 ml STK-MED ONCE SQ Last administered on at 14:59; Start 10/20/17 at 14:59; Stop 10/20/17 at 15:00; Status DC Collagenase (Santyl Oint) 1 applic DAILY TOPICAL Last administered on at 08:23; Start 10/22/17 at 12:00 Gabapentin (Neurontin) 600 mg TID PO Last administered on 10/30/17at 08:21; Start 10/23/17 at 18:00 Furosemide (Lasix Inj) 20 mg ONCE ONCE IV PUSH Last administered on 10/23/17at 14:09; Start 10/23/17 at 14:00; Stop 10/23/17 at 14:01; Status DC Linezolid (Zyvox) 600 mg Q12HR PO Last administered on 10/28/17at 08:53; Start 10/23/17 at 21:00; Stop 10/28/17 at 11:12; Status DC Gadodiamide (Omniscan Pf Inj) 14 ml STK-MED ONCE IVCONTRAST Last administered on 10/24/17at 10:48; Start 10/24/17 at 10:48; Stop 10/24/17 at 10:49; Status DC Bupivacaine HCl (Marcaine Pf 0.5% Inj) 30 ml STK-MED ONCE .ROUTE ; Start at 07:26; Stop 10/25/17 at 07:27; Status DC Acetaminophen 100 ml @ As Directed STK-MED ONCE IV ; Start 10/25/17 at 07:33; Stop 10/25/17 at 07:34; Status DC Midazolam HCl (Versed Inj) 2 mg STK-MED ONCE .ROUTE ; Start 10/25/17 at 09:32; Stop 10/25/17 at 09:33; Status DC Fentanyl Citrate (fentaNYL INJ) 100 mcg STK-MED ONCE .ROUTE ; Start 10/25/17 at 09:33; Stop 10/25/17 at 09:34; Status DC Miscellaneous Information ALL NURSING DEPARTME... UNSCH PRN .XX SEE LABEL COMMENTS; Start 10/25/17 at 12:30; Stop 10/26/17 at 12:29; Status DC Sodium Chloride 1,000 ml @ 50 mls/hr Q20H IV Last administered on 10/30/17at 01 :41; Start 10/27/17 at 13:30 Lidocaine HCl (Xylocaine-Mpf 1% Inj) 5 ml STK-MED ONCE OTHER ; Start 10/25/17 at 12:00; Stop 10/28/17 at 09:30; Status DC Phenylephrine HCl (Neosynephrine/ NS 1000 Mcg/10ml Syr) 1,000 mcg STK-MED ONCE IV ; Start 10/25/17 at 12:00; Stop 10/28/17 at 09:30; Status DC Dexamethasone Sodium Phosphate (Decadron Inj) 4 mg STK-MED ONCE IV ; Start 10/25 at 12:00; Stop 10/28/17 at 09:30; Status DC Ondansetron HCl (Zofran Inj) 4 mg STK-MED ONCE IV ; Start 10/25/17 at 12:00; Stop 10/28/17 at 09:30; Status DC Propofol (Diprivan 200 Mg/20 ml Inj) 200 mg STK-MED ONCE IV ; Start 10/25/17 at 12:00; Stop 10/28/17 at 09:30; Status DC Heparin Sodium (Porcine) (Heparin Inj) 5,000 units Q12H SQ Last administered on 10/30/17at 03:00; Start 10/28/17 at 15:00 A/P Problem List: (1) Osteomyelitis of foot ICD Code: M86.9 - Osteomyelitis, unspecified (2) Leukocytosis ICD Code: D72.829 - Elevated white blood cell count, unspecified (3) Dehydration with hyponatremia ICD Code: E87.1 - Hypo-osmolality and hyponatremia (4) Acute kidney injury ICD Code: N17.9 - Acute kidney failure, unspecified (5) Sepsis ICD Code: A41.9 - Sepsis, unspecified organism Status: Acute (6) Diabetic foot ulcer ICD Code: E11.621 - Type 2 diabetes mellitus with foot ulcer; L97.509 - Non- pressure chronic ulcer of other part of unspecified foot with unspecified severity Status: Acute (7) Acute renal failure superimposed on stage 3 chronic kidney disease ICD Code: N17.9 - Acute kidney failure, unspecified; N18.3 - Chronic kidney disease, stage 3 (moderate) (8) Bacteremia due to Gram-positive bacteria ICD Code: R78.81 - Bacteremia (9) Postoperative anemia ICD Code: D64.9 - Anemia, unspecified Assessment and Plan This is a 57-year-old male who presented with sepsis Sepsis - Secondary to diabetic foot infection, bacteremia, right foot osteomyelitis: Appreciate infectious disease recommendations. He does have a right knee pleural effusion with no growth. -On Rocephin. Levaquin and Zyvox DC'd 10/28/2017. Wound culture growing staph and strep not A/B/D. New cultures obtained in surgery are growing staph aureus. -Patient continues to have fever currently on Rocephin. Will notify infectious disease of this. Right foot osteomyelitis: Appreciate podiatry recommendations. -Status post incision and drainage, fifth metatarsal resection, fifth digit amputation on 10/08/17. Podiatry is recommending IV antibiotics on discharge. Final antibiotic recommendations per infectious disease. Continue wound care. S/P irrigation/debridement with wound vac placement 10/25/17. Right knee effusion: - Improving. Continue antibiotics. Appreciate orthopedic surgery recommendations. So far cultures are negative. Patient refusing I&D at the moment. Bilateral pleural effusion: -Appreciate pulmonology recommendations. Status post right-sided thoracentesis. Cytology is negative for malignant cells. Peripheral vascular disease: -Appreciate vascular surgery recommendations. Per vascular surgery, no surgical intervention is planned. Postoperative anemia: -Received transfusion of 2 units PRBCs. Monitor H&H. Diabetes mellitus type 2: -Continue Levemir. Monitor Accu-Cheks and cover with sliding scale insulin. Continue preprandial insulin as well. Acute kidney injury superimposed on chronic kidney disease stage III -Creatinine continues to improve. Continue with light hydration with IV fluids. Stage one pressure ulcer. -Patient needs turning every 2 hours. Will have physical therapist work with patient more. Hypokalemia -Replenish as needed. DVT prophylaxis: Heparin. Problem Qualifiers (1) Sepsis: Qualified Codes: A41.9 - Sepsis, unspecified organism (2) Diabetic foot ulcer: Qualified Codes: E10.621 - Type 1 diabetes mellitus with foot ulcer; L97.419 - Non-pressure chronic ulcer of right heel and midfoot with unspecified severity Petty Ospina MD Oct 30, 2017 10:16
[2017-10-30 12:24] VITALS: BP 171/100; PULSE 111; RESP 18; TEMP 102.6; O2SAT 98
[2017-10-30] MEDS: cefTRIAXone INJ 2,000 MG in SODIUM CHLORIDE 0.9% INJ 100 ML IV SCH (13:03)
--- NOTE | 2017-10-30 14:02 | HHI.IDPN ---
Subjective Subjective Remarks Mr. Braxton is a 57-year-old male with past medical history significant for diabetes type 2, prior diabetic foot ulcer treated in October 2016 thereafter was hospitalized from May 08, 2017 to May 29, 2017 due to foot ulcer. During that hospitalization patient underwent surgical debridement with wound VAC placement. Patient reports that he was seen by Dr. Pritchard during that admission. Patient reports that he was discharged on IV ceftriaxone using a PICC line. Patient had home health care visits him and continue to receive wound VAC changes at home. He also was subsequently seen at wound care clinic for ongoing wound care as well as [facility] for his primary care needs. Patient reports that his medications were recently adjusted and a new insulin was introduced. Patient reports that he was diagnosed with a possible staph or strep infection and has been on oral Bactrim approximately 2 weeks prior to admission. Due to worsening foot infection as well as possible reaction to the new insulin patient presented to the emergency department [facility]. Patient reports that he was having fevers, chills, loss of appetite and diarrhea for the past 2 days associated with frequent urination. Patient denies any dysuria. He reports dizziness and reported history of falls 3 days ago while on the toilet. Patient's reports that she was unaware of this history of fall. He denies any head injury. Patient reports hitting his right foot and shoulder but that he was able to get off the floor by himself. Patient had a sepsis workup initiated on admission. Wound cultures are positive for strep as well as blood cultures are now positive for gram-positive likely strep. Repeat blood cultures have been ordered. Podiatry is seeing the patient and there is a plan for surgical intervention and possible amputation of the involved digit. Infectious disease is consulted for evaluation and management of right fifth toe osteomyelitis with associated cellulitis, gram-positive bacteremia and sepsis. S/p amputation 5th toe and 5thMT foot and blood clx + MSSA and strep + osteo extending to margins Overnight events reviewed. Several high grade fevers 102 F. Clinically stable. WBC ok. No new complaints. Clinically no change hemodynamically to suggest sepsis or new infection. C/S OR Staph aureus No rash No diarrhea ECHO no veg's. Antibiotics Current Medications Rocephin Levaquin Zyvox Medications (Trade) Dose Ordered Sig/Anna Route Start Time Stop Time Status Last Admin (NS Flush) 2 ml UNSCH PRN IV FLUSH 10/07/17 16:45 10/21/17 23:13 (NS Flush) 2 ml BID IV FLUSH 10/07/17 21:00 10/27/17 09:44 (Narcan Inj) 0.4 mg UNSCH PRN IV PUSH 10/07/17 16:45 (D50w (Vial) Inj) 50 ml UNSCH PRN IV PUSH 10/08/17 10:30 (Glucagon Inj) 1 mg UNSCH PRN OTHER 10/08/17 10:30 (NovoLOG SUPPLEMENTAL SCALE) 1 ACHS SLIDING SCALE SQ 10/08/17 12:00 10/27/17 12:59 (Lactinex) 1 tab Q12HR PO 10/08/17 21:00 10/27/17 09:43 (NovoLOG INJ) 5 units TIDAC SQ 10/12/17 08:00 10/27/17 12:59 (Levemir Inj) 15 units HS SQ 10/12/17 21:00 10/26/17 20:54 ([place] 7.5-325 Mg) 1 tab Q6H PRN PO 10/13/17 12:45 10/27/17 06:23 (Morphine Inj) 5 mg Q4H PRN IV PUSH 10/13/17 12:45 10/27/17 09:43 (Morphine Inj) 4 mg Q3H PRN IV PUSH 10/13/17 12:45 10/26/17 19:03 (Restoril) 15 mg HS PRN PO 10/13/17 12:45 10/25/17 22:37 (Tylenol) 500 mg Q4H PRN PO 10/13/17 13:15 10/27/17 13:01 Ceftriaxone Sodium 2000 mg/ Sodium Chloride 100 ml @ 200 mls/hr Q24H IV 10/13/17 14:00 10/27/17 12:57 (Levaquin) 500 mg DAILY PO 10/14/17 17:00 10/27/17 09:42 (Santyl Oint) 1 applic DAILY TOPICAL 10/22/17 12:00 10/27/17 09:00 (Neurontin) 600 mg TID PO 10/23/17 18:00 10/27/17 12:57 (Zyvox) 600 mg Q12HR PO 10/23/17 21:00 10/27/17 09:43 Sodium Chloride 1,000 ml @ 50 mls/hr Q20H IV 10/27/17 13:30 Lines Line sites with no e.o infection Past Medical History Past Medical History DM II Right foot ulcer with possible osteomyelitis in the past. Has received IV antibiotics long-term using a PICC line in the past. Renal stones Past Surgical History Right foot debridement of wound removal of kidney stones Tonsillitis Allergies: Coded Allergies: No Known Allergies (Unverified Adverse Reaction, Unknown, 09/15/17) Uncoded Allergies: kyrgyz dressing (Allergy, Severe, Anaphylaxis, 10/07/17) Objective . Vital Signs Date Time Temp Pulse Resp B/P (MAP) Pulse Ox O2 Delivery O2 Flow Rate FiO2 10/30/17 12:24 102.6 111 18 171/100 (123) 98 10/30/17 09:18 Nasal Cannula 2.00 10/30/17 08:05 99.4 93 18 136/78 (97) 93 10/30/17 04:00 102.5 110 20 139/68 (91) 95 10/30/17 00:00 99.5 96 20 121/61 (81) 95 10/29/17 20:00 99.4 98 18 121/71 (88) 92 10/29/17 20:00 Nasal Cannula 2.00 10/29/17 16:05 102.6 112 18 158/82 (107) 94 . Laboratory Tests Test 10/30/17 06:30 White Blood Count 5.2 TH/MM3 Red Blood Count 2.55 MIL/MM3 Hemoglobin 7.1 GM/DL Hematocrit 20.9 % Mean Corpuscular Volume 82.0 FL Mean Corpuscular Hemoglobin 27.8 PG Mean Corpuscular Hemoglobin Concent 33.8 % Red Cell Distribution Width 14.6 % Platelet Count 202 TH/MM3 Mean Platelet Volume 7.6 FL Laboratory Tests Test 10/30/17 06:30 Blood Urea Nitrogen 17 MG/DL Creatinine 0.95 MG/DL Random Glucose 147 MG/DL Calcium Level 8.4 MG/DL Sodium Level 134 MEQ/L Potassium Level 4.0 MEQ/L Chloride Level 100 MEQ/L Carbon Dioxide Level 26.0 MEQ/L Anion Gap 8 MEQ/L Estimat Glomerular Filtration Rate 81 ML/MIN Microbiology Date/Time Source Procedure Growth Status 10/27/17 16:45 Blood Peripheral Aerobic Blood Culture - Preliminary NO GROWTH IN 3 DAYS Resulted 10/27/17 16:45 Blood Peripheral Anaerobic Blood Culture - Preliminary NO GROWTH IN 3 DAYS Resulted 10/27/17 16:30 Blood Peripheral Aerobic Blood Culture - Preliminary NO GROWTH IN 3 DAYS Resulted 10/27/17 16:30 Blood Peripheral Anaerobic Blood Culture - Preliminary NO GROWTH IN 3 DAYS Resulted Imaging Foot X-Ray 10/23/17 0000 Signed Impressions: Service Date/Time: October 17:15 - CONCLUSION: 1. 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 Lupillo Webster MD Chest X-Ray 10/22/17 0000 Signed Impressions: Service Date/Time: Sunday, October 22, 2017 09:07 - CONCLUSION: 1. Bilateral infiltrates and effusion. The exam has worsen when compared to previous dated 10/20/17. Raghavendra Lim MD Thoracentesis Ultrasound 10/20/17 0600 Signed Impressions: Service Date/Time: Friday, October 20, 2017 13:03 - CONCLUSION: Uncomplicated ultrasound guided thoracentesis. Smooth Saucedo MD Chest Ultrasound 10/17/17 0000 Signed Impressions: Service Date/Time: Tuesday, October 17, 2017 20:24 - CONCLUSION: A moderate to large right pleural effusion is confirmed sonographically and marked for thoracentesis. Hector Pierre MD Chest CT 10/16/17 0000 Signed Impressions: Service Date/Time: October 20:14 - CONCLUSION: Moderate-sized bilateral pleural effusions with adjacent compressive atelectasis and/or pneumonia. Scattered increased interstitial infiltrates within the perihilar regions and upper lobes bilaterally raising the possibility of pulmonary vascular congestion. Cardiomegaly and coronary artery calcifications are noted. Mild pretracheal and AP window mediastinal lymphadenopathy which is nonspecific. Degenerative changes and mild scoliosis of the thoracic spine. Hector Pierre MD Aspiration 10/16/17 0000 Signed Impressions: Service Date/Time: October 15:48 - CONCLUSION: Uncomplicated aspiration as above. Chetan Escobedo MD Abdomen/Pelvis CT 10/16/17 0000 Signed Impressions: Service Date/Time: October 20:14 - CONCLUSION: 1. Moderate-sized bilateral pleural effusions with adjacent consolidations consistent with atelectasis and/or pneumonia. 2. Tiny calcified nonobstructing bilateral renal calculi. 3. Mild hepatosplenomegaly. 4. Uncomplicated colonic diverticulosis. 5. Minimal free fluid within the pelvis. 6. Streakiness and fluid within the bilateral retroperitoneum inferior to the kidneys and extending into the presacral region. 7. Degenerative changes and scoliosis of the thoracolumbar spine. Hector Pierre MD Knee X-Ray 10/15/17 0000 Signed Impressions: Service Date/Time: Sunday, October 15, 2017 15:26 - CONCLUSION: Large joint effusion otherwise negative. Tu Lim MD FACR Carotid Artery Ultrasound 10/13/17 0000 Signed Impressions: Service Date/Time: Friday, October 13, 2017 16:12 - CONCLUSION: No evidence of flow-limiting carotid stenosis. Wm Riley MD Aorta w/Runoff CTA 10/13/17 0000 Signed Impressions: Service Date/Time: Friday, October 13, 2017 22:41 - CONCLUSION: 1. No aortic occlusive disease. 2. No significant iliac inflow stenosis. 3. No significant outflow stenosis. 4. Diffuse bilateral runoff disease with heavily calcified tibial arteries and significant venous contamination precluding patency evaluation beyond the very proximal calf. 5. Small to moderate bilateral pleural effusions with associated airspace disease at the lung bases, presumably atelectasis. 6. Trace free fluid in the deep pelvis. 7. Ancillary findings include hepatic steatosis, nonobstructing punctate calyceal calculus in the inferior pole of the left kidney and small suprapatellar right joint effusion. Lupillo Webster MD Foot MRI 10/12/17 0000 Signed Impressions: Service Date/Time: Thursday, October 12, 2017 08:31 - CONCLUSION: 1. No areas of suspected osteomyelitis. 2. Superficial soft tissue swelling over the third and fourth metatarsals. There is also some edema within the plantar musculature. Wm Dupree MD Ankle MRI 10/11/17 0000 Signed Impressions: Service Date/Time: Wednesday, October 11, 2017 09:41 - CONCLUSION: 1. No definite areas of osteomyelitis. There is some edema within the lateral cuboid adjacent to the suspected surgical defect which is likely reactive. T1 signal is maintained. 2. Multiple areas of focal edema within the midfoot mainly related to the subarticular regions likely related to underlying arthritic change. 3. The patient appears to be status post resection of the fifth metatarsal with post surgical change at the lateral hind and midfoot and a small focus of air seen adjacent to the calcaneus. Wm Dupree MD Physical Exam GENERAL: awake and alert, NAD SKIN: Cool and dry. No generalized rash HEAD: Atraumatic. Normocephalic. No temporal or scalp tenderness. EYES: Pupils equal round and reactive. EOM full and intact. No scleral icterus. No injection or drainage. ENT: Moist mucosa, no lesions, no oral thrush NECK: Trachea midline.Supple, nontender, no meningeal signs. CARDIOVASCULAR: Heart sounds audible. RESPIRATORY: basilar crackles. Breath sounds decreased bilateral bases. GASTROINTESTINAL: Abdomen soft, non-tender, nondistended. MUSCULOSKELETAL: Right foot with wound vac. Left foot in dressing. NEUROLOGICAL: Awake and alert. Nonfocal exam Psych cooperative IV line sites with no evidence of infection. Assessment & Plan Remarks Sepsis present on admission Strep bacteremia secondary to right foot osteomyelitis and cellulitis Staph MSSA bacteremia high grade. Strep not AB,D and Staph infection Right foot fifth MPJ osteomyelitis Right foot cellulitis Pneumonia with bilateral pleural effusions ? HCAP vs septic emboli. Right knee septic arthritis. Diabetes type 2 uncontrolled Acute renal failure: Sepsis, prerenal: improving Fevers, better Recommendations: Continue Ceftriaxone IV (BCX were negative at 4 days and no clinical e/o failure prior to switch) Doppler LE bilaterally negative for DVT. Repeat CXR Repeat CRP If CXR negative and CRP decreasing then likely drug fever. Clinically patient stable with no signs of new infection. Follow cultures Follow clinically. dw pt I will be OOT from 10/31 - 11/09/2017. Other ID MDs covering for me. Chuyita Quinteros MD Oct 30, 2017 14:02
--- NOTE | 2017-10-30 14:33 | RADRPT ---
EXAM DATE/TIME: 10/30/2017 13:55 [facility] COMPARISON: CHEST SINGLE AP, October 27, 2017, 5:16. INDICATIONS : Fever. MEDICAL HISTORY : Diabetes mellitus type 2. SURGICAL HISTORY : None. ENCOUNTER: Initial ACUITY: 1 day PAIN SCORE: 10 LOCATION: Bilateral chest FINDINGS: Single view of the thorax and chest area of consolidation involving the perihilar region on the left. This is slightly more defined when compared to previous exam. There are diffuse chronic interstitial changes throughout the lungs bilaterally. There are consolidative changes within the left lower lobe. The heart is normal in size. The osseous structures are grossly intact. CONCLUSION: 1. Consolidation of the left lower lobe. This would be concerning for a pneumonia. 2. Focal area of infiltrate seen in the left perihilar region. Raghavendra Lim MD on October 30, 2017 at 14:30 Board Certified Radiologist. This report was verified electronically.
[2017-10-30 16:04] VITALS: BP 140/81; PULSE 96; RESP 18; TEMP 99; O2SAT 97
--- NOTE | 2017-10-30 19:07 | HHI.PR ---
Subjective Remarks 57 YOWm with DM,Diabetic foot ulcer,Pl eff, Lung infilt US chest Mod to large Rt Pl eff no Fever Breathiing better Pl fluid cytology neg uses 02 off and on Had brief fever Denies cough or sp CXR LLL infilt Objective Vital Signs Vital Signs Date Time Temp Pulse Resp B/P (MAP) Pulse Ox O2 Delivery O2 Flow Rate FiO2 10/30/17 16:04 99.0 96 18 140/81 (100) 97 10/30/17 12:24 102.6 111 18 171/100 (123) 98 10/30/17 09:18 Nasal Cannula 2.00 10/30/17 08:05 99.4 93 18 136/78 (97) 93 10/30/17 04:00 102.5 110 20 139/68 (91) 95 10/30/17 00:00 99.5 96 20 121/61 (81) 95 10/29/17 20:00 99.4 98 18 121/71 (88) 92 10/29/17 20:00 Nasal Cannula 2.00 I/O 10/29/17 10/29/17 10/29/17 10/30/17 10/30/17 10/30/17 06:59 14:59 22:59 06:59 14:59 22:59 Intake Total 1560 ml 940 ml 800 ml 720 ml Output Total 1900 ml 600 ml 2150 ml 500 ml Balance -340 ml 340 ml -1350 ml 220 ml Intake Oral 560 ml 940 ml 800 ml 720 ml IV Total 1000 ml Output Urine Total 1900 ml 600 ml 2150 ml 500 ml # Bowel Movements 3 1 0 1 Result Diagram: 10/30/17 0630 10/30/17 0630 Objective Remarks GENERAL: WBWN WM,NAD SKIN: Warm and dry. HEAD: Normocephalic. EYES: No scleral icterus. No injection or drainage. NECK: Supple, trachea midline. No JVD or lymphadenopathy. CARDIOVASCULAR: Regular rate and rhythm without murmurs, gallops, or rubs. RESPIRATORY: Breath sounds equal bilaterally. No accessory muscle use. Decreased BS at Bases GASTROINTESTINAL: Abdomen soft, non-tender, nondistended. MUSCULOSKELETAL: No cyanosis, or edema. Foot ulcer, VAC device BACK: Nontender without obvious deformity. No CVA tenderness. A/P Assessment and Plan Bilat Pl effusion Lung infilt/ septic emboli DM Foot Ulcer PLAN: Pl fluid cytology, cultures neg Cont Abx per ID Supplement 02 to keep sat >90% DW pt and his Curtis Liao MD Oct 30, 2017 19:07
[2017-10-30] MEDS: INSULIN DETEMIR 100 UNITS/ML VIAL SQ SCH (20:40)
[2017-10-30 20:41] VITALS: BP 120/84; PULSE 98; RESP 17; TEMP 98.8; O2SAT 98
[2017-10-31] VITALS (7 sets, daily range): BP systolic 116–168; BP diastolic 67–98; PULSE 100–116; RESP 18–22; TEMP 99.2–102.8; O2SAT 90–96
[2017-10-31] MEDS: ACETAMINOPHEN 500 MG CPLT PO PRN ×2 (00:14→11:48)
[2017-10-31] MEDS: HEPARIN SODIUM - SQ 10,000 UNITS/ML VIAL SQ SCH ×2 (02:39→14:13)
[2017-10-31] MEDS: MORPHINE SULFATE 8 MG/ML INJ IV PUSH PRN (02:39)
[2017-10-31] MEDS: ACETAMINOPHEN/HYDROcodone 325 MG/7.5 MG TAB PO PRN (05:27)
[2017-10-31] MEDS: INSULIN ASPART 1,000 UNITS/10 ML VIAL SQ SCH ×3 (07:55→18:14)
[2017-10-31] MEDS: INSULIN ASPART SUPPLEMENTAL SCALE SQ SCH ×4 (07:55→20:42)
--- NOTE | 2017-10-31 08:54 | HHI.PR ---
Subjective Remarks 57 YOWm with DM,Diabetic foot ulcer,Pl eff, Lung infilt US chest Mod to large Rt Pl eff no Fever Breathiing better Pl fluid cytology neg uses 02 off and on Has fever Coughed up one " brown worm like sp from rt lung" CXR LLL infilt Objective Vital Signs Vital Signs Date Time Temp Pulse Resp B/P (MAP) Pulse Ox O2 Delivery O2 Flow Rate FiO2 10/31/17 08:00 101.7 107 20 143/90 (107) 90 10/31/17 07:43 Nasal Cannula 2.00 10/31/17 04:00 100.4 103 18 139/84 (102) 96 10/31/17 04:00 Nasal Cannula 2.00 10/31/17 00:12 102.8 115 18 168/98 (121) 94 10/31/17 00:00 Nasal Cannula 2.00 10/30/17 20:41 98.8 98 17 120/84 (96) 98 10/30/17 20:00 Nasal Cannula 2.00 10/30/17 16:04 99.0 96 18 140/81 (100) 97 10/30/17 12:24 102.6 111 18 171/100 (123) 98 10/30/17 09:18 Nasal Cannula 2.00 I/O 10/30/17 10/30/17 10/30/17 10/31/17 10/31/17 10/31/17 07:00 15:00 23:00 07:00 15:00 23:00 Intake Total 800 ml 720 ml 701 ml 50 ml Output Total 2150 ml 500 ml 580 ml Balance -1350 ml 220 ml 121 ml 50 ml Intake Oral 800 ml 720 ml 701 ml IV Total 50 ml Output Urine Total 2150 ml 500 ml 580 ml # Voids 1 # Bowel Movements 0 1 1 Result Diagram: 10/30/17 0630 10/30/17 0630 Objective Remarks GENERAL: WBWN WM,NAD SKIN: Warm and dry. HEAD: Normocephalic. EYES: No scleral icterus. No injection or drainage. NECK: Supple, trachea midline. No JVD or lymphadenopathy. CARDIOVASCULAR: Regular rate and rhythm without murmurs, gallops, or rubs. RESPIRATORY: Breath sounds equal bilaterally. No accessory muscle use. Decreased BS at Bases GASTROINTESTINAL: Abdomen soft, non-tender, nondistended. MUSCULOSKELETAL: No cyanosis, or edema. Foot ulcer, VAC device BACK: Nontender without obvious deformity. No CVA tenderness. A/P Assessment and Plan Bilat Pl effusion Lung infilt/ septic emboli DM Foot Ulcer PLAN: Pl fluid cytology, cultures neg Cont Abx per ID Supplement 02 to keep sat >90% DW pt and his Curtis Liao MD Oct 31, 2017 08:54
[2017-10-31] MEDS: GABAPENTIN 300 MG CAP PO SCH ×3 (08:59→18:10)
[2017-10-31] MEDS: LACTOBACILLUS ACIDOPHILUS TAB PO SCH ×2 (08:59→20:42)
[2017-10-31] MEDS: MORPHINE SULFATE 4 MG/ML INJ IV PUSH PRN ×3 (09:00→15:15)
[2017-10-31] MEDS: COLLAGENASE OINT 30 GM TUBE TOPICAL SCH (09:00)
[2017-10-31] MEDS: SODIUM CHLORIDE 0.9% FLUSH 10 ML FLUSH IV FLUSH SCH ×2 (09:00→20:42)
--- NOTE | 2017-10-31 10:56 | HHI.PR ---
Objective Vitals Vital Signs Date Time Temp Pulse Resp B/P (MAP) Pulse Ox O2 Delivery O2 Flow Rate FiO2 10/31/17 08:00 101.7 107 20 143/90 (107) 90 10/31/17 07:43 Nasal Cannula 2.00 10/31/17 04:00 100.4 103 18 139/84 (102) 96 10/31/17 04:00 Nasal Cannula 2.00 10/31/17 00:12 102.8 115 18 168/98 (121) 94 10/31/17 00:00 Nasal Cannula 2.00 10/30/17 20:41 98.8 98 17 120/84 (96) 98 10/30/17 20:00 Nasal Cannula 2.00 10/30/17 16:04 99.0 96 18 140/81 (100) 97 10/30/17 12:24 102.6 111 18 171/100 (123) 98 I/O 10/30/17 10/30/17 10/30/17 10/31/17 10/31/17 10/31/17 07:00 15:00 23:00 07:00 15:00 23:00 Intake Total 800 ml 720 ml 701 ml 50 ml Output Total 2150 ml 500 ml 580 ml Balance -1350 ml 220 ml 121 ml 50 ml Intake Oral 800 ml 720 ml 701 ml IV Total 50 ml Output Urine Total 2150 ml 500 ml 580 ml # Voids 1 # Bowel Movements 0 1 1 Result Diagram: 10/30/17 0630 10/30/17 0630 Objective Remarks GENERAL: in NAD SKIN: Sacral gluteal area with macular pink rash. CARDIOVASCULAR: Regular rate and rhythm without murmurs, gallops, or rubs. RESPIRATORY: Breath sounds equal bilaterally. No accessory muscle use. GASTROINTESTINAL: Abdomen soft, non-tender, nondistended. MUSCULOSKELETAL: Right knee with swelling. No erythema or warmth. Right foot wrapped in bandages wound VAC in place. Procedures 10/08/17 Right foot and ankle incision drainage, 5th metatarsal resection, 5th digit amputation 10/25/17 Incision and drainage Right foot/ankle abscess with bone biopsy right 4th metatarsal base; wound vac placement A/P Problem List: (1) Osteomyelitis of foot ICD Code: M86.9 - Osteomyelitis, unspecified (2) Leukocytosis ICD Code: D72.829 - Elevated white blood cell count, unspecified (3) Dehydration with hyponatremia ICD Code: E87.1 - Hypo-osmolality and hyponatremia (4) Acute kidney injury ICD Code: N17.9 - Acute kidney failure, unspecified (5) Sepsis ICD Code: A41.9 - Sepsis, unspecified organism Status: Acute (6) Diabetic foot ulcer ICD Code: E11.621 - Type 2 diabetes mellitus with foot ulcer; L97.509 - Non- pressure chronic ulcer of other part of unspecified foot with unspecified severity Status: Acute (7) Acute renal failure superimposed on stage 3 chronic kidney disease ICD Code: N17.9 - Acute kidney failure, unspecified; N18.3 - Chronic kidney disease, stage 3 (moderate) (8) Bacteremia due to Gram-positive bacteria ICD Code: R78.81 - Bacteremia (9) Postoperative anemia ICD Code: D64.9 - Anemia, unspecified Assessment and Plan This is a 57-year-old male who presented with sepsis Sepsis - Secondary to diabetic foot infection, bacteremia, right foot osteomyelitis: Appreciate infectious disease recommendations. He does have a right knee pleural effusion with no growth. -On Rocephin. Levaquin and Zyvox DC'd 10/28/2017. Wound culture growing staph and strep not A/B/D. New cultures obtained in surgery are growing staph aureus. -Patient continues to have fever currently on Rocephin. Will notify infectious disease of this. Right foot osteomyelitis: Appreciate podiatry recommendations. -Status post incision and drainage, fifth metatarsal resection, fifth digit amputation on 10/08/17. Podiatry is recommending IV antibiotics on discharge. Final antibiotic recommendations per infectious disease. Continue wound care. S/P irrigation/debridement with wound vac placement 10/25/17. Right knee effusion: - Improving. Continue antibiotics. Appreciate orthopedic surgery recommendations. So far cultures are negative. Patient refusing I&D at the moment. Bilateral pleural effusion: -Appreciate pulmonology recommendations. Status post right-sided thoracentesis. Cytology is negative for malignant cells. Peripheral vascular disease: -Appreciate vascular surgery recommendations. Per vascular surgery, no surgical intervention is planned. Postoperative anemia: -Received transfusion of 2 units PRBCs. Monitor H&H. Diabetes mellitus type 2: -Continue Levemir. Monitor Accu-Cheks and cover with sliding scale insulin. Continue preprandial insulin as well. Acute kidney injury superimposed on chronic kidney disease stage III -Creatinine continues to improve. Continue with light hydration with IV fluids. Stage one pressure ulcer. -Patient needs turning every 2 hours. Will have physical therapist work with patient more. Hypokalemia -Replenish as needed. DVT prophylaxis: Heparin. Problem Qualifiers (1) Sepsis: Qualified Codes: A41.9 - Sepsis, unspecified organism (2) Diabetic foot ulcer: Qualified Codes: E10.621 - Type 1 diabetes mellitus with foot ulcer; L97.419 - Non-pressure chronic ulcer of right heel and midfoot with unspecified severity Petty Ospina MD Oct 31, 2017 10:56
--- NOTE | 2017-10-31 11:09 | HHI.PR ---
Subjective Remarks f/u infection continue to have fever. patient stated he's in pain due to therapy. He stated they worked with him a lot where he is sore now. no other complaints. Objective Vitals Vital Signs Date Time Temp Pulse Resp B/P (MAP) Pulse Ox O2 Delivery O2 Flow Rate FiO2 10/31/17 08:00 101.7 107 20 143/90 (107) 90 10/31/17 07:43 Nasal Cannula 2.00 10/31/17 04:00 100.4 103 18 139/84 (102) 96 10/31/17 04:00 Nasal Cannula 2.00 10/31/17 00:12 102.8 115 18 168/98 (121) 94 10/31/17 00:00 Nasal Cannula 2.00 10/30/17 20:41 98.8 98 17 120/84 (96) 98 10/30/17 20:00 Nasal Cannula 2.00 10/30/17 16:04 99.0 96 18 140/81 (100) 97 10/30/17 12:24 102.6 111 18 171/100 (123) 98 I/O 10/30/17 10/30/17 10/30/17 10/31/17 10/31/17 10/31/17 07:00 15:00 23:00 07:00 15:00 23:00 Intake Total 800 ml 720 ml 701 ml 50 ml Output Total 2150 ml 500 ml 580 ml Balance -1350 ml 220 ml 121 ml 50 ml Intake Oral 800 ml 720 ml 701 ml IV Total 50 ml Output Urine Total 2150 ml 500 ml 580 ml # Voids 1 # Bowel Movements 0 1 1 Result Diagram: 10/30/17 0630 10/30/17 0630 Objective Remarks GENERAL: in NAD SKIN: Sacral gluteal area with macular pink rash. CARDIOVASCULAR: Regular rate and rhythm without murmurs, gallops, or rubs. RESPIRATORY: Breath sounds equal bilaterally. No accessory muscle use. GASTROINTESTINAL: Abdomen soft, non-tender, nondistended. MUSCULOSKELETAL: Right knee with swelling. No erythema or warmth. Right foot wrapped in bandages wound VAC in place. Procedures 10/08/17 Right foot and ankle incision drainage, 5th metatarsal resection, 5th digit amputation 10/25/17 Incision and drainage Right foot/ankle abscess with bone biopsy right 4th metatarsal base; wound vac placement Medications and IVs Current Medications Piperacillin Sod/ Tazobactam Sod 100 ml @ 200 mls/hr ONCE STAT IV Last administered on 10/07/17at 15:56; Start 10/07/17 at 14:48; Stop 10/07/17 at 15:17 ; Status DC Vancomycin HCl 1000 mg/Sodium Chloride 250 ml @ 250 mls/hr ONCE STAT IV Last administered on 10/07/17at 16:32; Start 10/07/17 at 14:48; Stop 10/07/17 at 15:47 ; Status DC Sodium Chloride 1,000 ml @ 999 mls/hr BOLUS ONCE IV Last administered on 10/07at 15:57; Start 10/07/17 at 15:00; Stop 10/07/17 at 16:00; Status DC Oxycodone/ Acetaminophen (Percocet 5-325 Mg) 1 tab ONCE ONCE PO Last administered on 10/07/17at 16:31; Start 10/07/17 at 16:30; Stop 10/07/17 at 16:31 ; Status DC Sodium Chloride (NS Flush) 2 ml UNSCH PRN IV FLUSH FLUSH AFTER USING IV ACCESS Last administered on 10/21/17at 23:13; Start 10/07/17 at 16:45 Sodium Chloride (NS Flush) 2 ml BID IV FLUSH Last administered on 10/31/17at 09: 00; Start 10/07/17 at 21:00 Naloxone HCl (Narcan Inj) 0.4 mg UNSCH PRN IV PUSH SEE LABEL COMMENTS; Start at 16:45 Pharmacy Profile Note 0 ml @ 0 mls/hr UNSCH OTHER ; Start 10/07/17 at 17:00; Stop 10/11/17 at 13:39; Status DC Piperacillin Sod/ Tazobactam Sod 100 ml @ 200 mls/hr Q6H IV Last administered on 10/09/17at 09:27; Start 10/07/17 at 22:00; Stop 10/09/17 at 15:14; Status DC Sodium Chloride 500 ml @ 500 mls/hr BOLUS ONCE IV Last administered on at 18:50; Start 10/07/17 at 17:30; Stop 10/07/17 at 18:29; Status DC Tramadol HCl (Ultram) 50 mg Q12H PRN PO PAIN SCALE 5 TO 10 Last administered on 10/09/17at 09:27; Start 10/07/17 at 17:30; Stop 10/09/17 at 10:48; Status DC Vancomycin HCl 1250 mg/Sodium Chloride 262.5 ml @ 250 mls/hr Q24H IV Last administered on 10/10/17at 12:14; Start 10/08/17 at 11:00; Stop 10/10/17 at 14:01 ; Status DC Miscellaneous Information SPECIFIC LAB TO BE LUCERO... ONCE ONCE .XX Last administered on 10/10/17at 12:14; Start 10/10/17 at 10:45; Stop 10/10/17 at 10:46 ; Status DC Insulin Aspart (NovoLOG SUPPLEMENTAL SCALE) 1 ACHS SLIDING SCALE SQ Last administered on 10/08/17at 10:19; Start 10/07/17 at 21:00; Stop 10/08/17 at 10:27 ; Status DC Dextrose (D50w (Vial) Inj) 50 ml UNSCH PRN IV PUSH HYPOGLYCEMIA - SEE COMMENTS ; Start 10/07/17 at 19:15; Stop 10/08/17 at 10:27; Status DC Glucagon (Glucagon Inj) 1 mg UNSCH PRN OTHER HYPOGLYCEMIA-SEE COMMENTS; Start 10/07/17 at 19:15; Stop 10/08/17 at 10:27; Status DC Heparin Sodium (Porcine) (Heparin Inj) 5,000 units Q8HR SQ Last administered on 10/24/17at 21:32; Start 10/08/17 at 06:00; Stop 10/25/17 at 12:15; Status DC Acetaminophen/ Hydrocodone Bitart (Fowler 5-325 Mg) 1 tab ONCE ONCE PO Last administered on 10/08/17at 01:21; Start 10/07/17 at 23:45; Stop 10/07/17 at 23:46 ; Status DC Gadodiamide (Omniscan Pf Inj) 14 ml STK-MED ONCE IVCONTRAST Last administered on 10/08/17at 09:53; Start 10/08/17 at 09:51; Stop 10/08/17 at 09:52; Status DC Dextrose (D50w (Vial) Inj) 50 ml UNSCH PRN IV PUSH HYPOGLYCEMIA-SEE COMMENTS; Start 10/08/17 at 10:30 Glucagon (Glucagon Inj) 1 mg UNSCH PRN OTHER HYPOGLYCEMIA-SEE COMMENTS; Start 10/08/17 at 10:30 Insulin Aspart (NovoLOG SUPPLEMENTAL SCALE) 1 ACHS SLIDING SCALE SQ Last administered on 10/30/17at 17:00; Start 10/08/17 at 12:00 Lactobacillus Acidophilus (Lactinex) 1 tab Q12HR PO Last administered on at 08:59; Start 10/08/17 at 21:00 Sodium Chloride 1,000 ml @ 84 mls/hr [id number] IV Last administered on at 21:04; Start 10/08/17 at 11:00; Stop 10/10/17 at 07:31; Status DC Bupivacaine HCl (Marcaine Pf 0.25% Inj) 30 ml STK-MED ONCE .ROUTE Last administered on 10/08/17at 16:28; Start 10/08/17 at 12:51; Stop 10/08/17 at 12:52 ; Status DC Morphine Sulfate (*morphine INJ PERIprocedure ONLY) 10 mg STK-MED ONCE .ROUTE Last administered on 10/08/17at 17:35; Start 10/08/17 at 17:35; Stop 10/08/17 at 17:36; Status DC Midazolam HCl (Versed Inj) 2 mg STK-MED ONCE .ROUTE ; Start 10/08/17 at 17:36; Stop 10/08/17 at 17:37; Status DC Fentanyl Citrate (fentaNYL INJ) 100 mcg STK-MED ONCE .ROUTE ; Start 10/08/17 at 17:36; Stop 10/08/17 at 17:37; Status DC Morphine Sulfate (Morphine Inj) 4 mg STK-MED ONCE .ROUTE ; Start 10/08/17 at 17: 36; Stop 10/08/17 at 17:37; Status DC Miscellaneous Information ALL NURSING DEPARTME... UNSCH PRN .XX SEE LABEL COMMENTS; Start 10/08/17 at 17:25; Stop 10/09/17 at 17:24; Status DC Acetaminophen (Tylenol) 650 mg Q4H PRN PO fever > 101, ZIMMERMAN; Start 10/09/17 at 01 :15; Stop 10/13/17 at 12:38; Status DC Insulin Detemir (Levemir Inj) 10 units BID SQ Last administered on 10/09/17at 21 :03; Start 10/09/17 at 11:00; Stop 10/10/17 at 07:31; Status DC Acetaminophen/ Hydrocodone Bitart (Fowler 5-325 Mg) 1 tab Q4H PRN PO pain2-10 Last administered on 10/13/17at 05:47; Start 10/09/17 at 10:15; Stop 10/13/17 at 12:38; Status DC Rocuronium Dennis (Zemuron Inj) 50 mg STK-MED ONCE IV PUSH ; Start 10/08/17 at 12:00; Stop 10/09/17 at 14:48; Status DC Phenylephrine HCl (Neosynephrine/ NS 1000 Mcg/10ml Syr) 1,000 mcg STK-MED ONCE IV ; Start 10/08/17 at 12:00; Stop 10/09/17 at 14:48; Status DC Propofol (Diprivan 200 Mg/20 ml Inj) 200 mg STK-MED ONCE IV ; Start 10/08/17 at 12:00; Stop 10/09/17 at 14:48; Status DC Ceftriaxone Sodium 2000 mg/ Sodium Chloride 100 ml @ 200 mls/hr Q24H IV Last administered on 10/10/17at 16:44; Start 10/09/17 at 17:00; Stop 10/11/17 at 13:39 ; Status DC Sodium Chloride 250 ml @ 15 mls/hr ONCE ONCE IV Last administered on at 09:45; Start 10/10/17 at 07:30; Stop 10/11/17 at 00:09; Status DC Acetaminophen (Tylenol) 650 mg Q4H PRN PO SEE LABEL COMMENTS Last administered on 10/10/17at 16:45; Start 10/10/17 at 07:30; Stop 10/10/17 at 23:59; Status DC Diphenhydramine HCl (Benadryl) 25 mg Q4H PRN PO SEE LABEL COMMENTS Last administered on 10/10/17at 16:44; Start 10/10/17 at 07:30; Stop 10/10/17 at 23:59 ; Status DC Insulin Detemir (Levemir Inj) 15 units BID SQ Last administered on 10/11/17at 08 :09; Start 10/10/17 at 09:00; Stop 10/11/17 at 20:22; Status DC Sodium Chloride 1,000 ml @ 84 mls/hr [id number] IV Last administered on 10/16/17at 08:56; Start 10/10/17 at 11:00; Stop 10/16/17 at 19:02; Status DC Bupivacaine HCl (Marcaine Pf 0.25% Inj) 30 ml STK-MED ONCE .ROUTE ; Start at 12:08; Stop 10/10/17 at 12:09; Status DC Neomycin/Polymyxin (Neosporin G.u. Irr) 2 ml STK-MED ONCE .ROUTE ; Start at 12:13; Stop 10/10/17 at 12:14; Status DC Vancomycin HCl 1250 mg/Sodium Chloride 262.5 ml @ 250 mls/hr Q18H IV Last administered on 10/11/17at 05:14; Start 10/11/17 at 06:00; Stop 10/11/17 at 13:39 ; Status DC Miscellaneous Information SPECIFIC LAB TO BE LUCERO... ONCE ONCE .XX ; Start 10/12 at 17:45; Stop 10/12/17 at 17:45; Status DC Fentanyl Citrate (fentaNYL INJ) 100 mcg STK-MED ONCE .ROUTE ; Start 10/10/17 at 14:39; Stop 10/10/17 at 14:40; Status DC Midazolam HCl (Versed Inj) 2 mg STK-MED ONCE .ROUTE ; Start 10/10/17 at 14:39; Stop 10/10/17 at 14:40; Status DC Miscellaneous Information ALL NURSING DEPARTME... UNSCH PRN .XX SEE LABEL COMMENTS; Start 10/10/17 at 14:30; Stop 10/11/17 at 14:29; Status DC Gadodiamide (Omniscan Pf Inj) 14 ml STK-MED ONCE IVCONTRAST Last administered on 10/11/17at 10:03; Start 10/11/17 at 10:03; Stop 10/11/17 at 10:04; Status DC Cefazolin Sodium/ Dextrose 50 ml @ 150 mls/hr Q8H IV Last administered on 10/13at 05:55; Start 10/11/17 at 14:00; Stop 10/13/17 at 13:26; Status DC Insulin Detemir (Levemir Inj) 20 units HS SQ Last administered on 10/11/17at 22: 54; Start 10/11/17 at 21:00; Stop 10/12/17 at 13:47; Status DC Insulin Aspart (NovoLOG INJ) 5 units TIDAC SQ Last administered on 10/30/17at 17 :00; Start 10/12/17 at 08:00 Gadodiamide (Omniscan Pf Inj) 18 ml STK-MED ONCE IVCONTRAST Last administered on 10/12/17at 08:53; Start 10/12/17 at 08:53; Stop 10/12/17 at 08:54; Status DC Insulin Detemir (Levemir Inj) 15 units HS SQ Last administered on 10/30/17at 20: 40; Start 10/12/17 at 21:00 Lidocaine HCl (Xylocaine-Mpf 1% Inj) 5 ml STK-MED ONCE OTHER ; Start 10/10/17 at 12:00; Stop 10/13/17 at 09:31; Status DC Phenylephrine HCl (Neosynephrine/ NS 1000 Mcg/10ml Syr) 1,000 mcg STK-MED ONCE IV ; Start 10/10/17 at 12:00; Stop 10/13/17 at 09:31; Status DC Ephedrine Sulfate (ePHEDrine/NS 25 MG/5 ML SYR) 25 mg STK-MED ONCE IV ; Start at 12:00; Stop 10/13/17 at 09:31; Status DC Dexamethasone Sodium Phosphate (Decadron Inj) 4 mg STK-MED ONCE IV ; Start 10/10 at 12:00; Stop 10/13/17 at 09:31; Status DC Ondansetron HCl (Zofran Inj) 4 mg STK-MED ONCE IV ; Start 10/10/17 at 12:00; Stop 10/13/17 at 09:31; Status DC Propofol (Diprivan 200 Mg/20 ml Inj) 200 mg STK-MED ONCE IV ; Start 10/10/17 at 12:00; Stop 10/13/17 at 09:31; Status DC Acetaminophen (Tylenol) 500 mg Q4H PRN PO Headache, fever, pain 1-4; Start at 13:15; Stop 10/13/17 at 13:15; Status DC Acetaminophen/ Hydrocodone Bitart (Fowler 7.5-325 Mg) 1 tab Q6H PRN PO PAIN SCALE 5 TO 10 Last administered on 10/31/17 05:27; Start 10/13/17 at 12:45 Morphine Sulfate (Morphine Inj) 5 mg Q4H PRN IV PUSH BREAKTHROUGH PAIN Last administered on 10/31/17 02:39; Start 10/13/17 at 12:45 Morphine Sulfate (Morphine Inj) 4 mg Q3H PRN IV PUSH Prior to dressing change Last administered on 10/31/17 09:00; Start 10/13/17 at 12:45 Temazepam (Restoril) 15 mg HS PRN PO INSOMNIA Last administered on 10/28/17 21 :54; Start 10/13/17 at 12:45 Acetaminophen (Tylenol) 500 mg Q4H PRN PO Headache, fever, pain 1-4 Last administered on 10/31/17 00:14; Start 10/13/17 at 13:15 Ceftriaxone Sodium 2000 mg/ Sodium Chloride 100 ml @ 200 mls/hr Q24H IV Last administered on 10/30/17 13:03; Start 10/13/17 at 14:00 Iohexol (Omnipaque 350 Inj) 100 ml STK-MED ONCE IVCONTRAST Last administered on 10/13/17 22:47; Start 10/13/17 at 22:46; Stop 10/13/17 at 22:47; Status DC Levofloxacin (Levaquin) 500 mg DAILY PO Last administered on 10/28/17 08:53; Start 10/14/17 at 17:00; Stop 10/28/17 at 11:12; Status DC Linezolid 300 ml @ 300 mls/hr Q12H IV Last administered on 10/23/17 04:38; Start 10/14/17 at 17:00; Stop 10/23/17 at 13:56; Status DC Potassium Chloride (KCl) 20 meq ONCE ONCE PO Last administered on 10/14/17 18 :52; Start 10/14/17 at 18:30; Stop 10/14/17 at 18:31; Status DC Potassium Chloride (KCl) 20 meq Q12HR PO Last administered on 10/17/17 08:40; Start 10/14/17 at 21:00; Stop 10/17/17 at 20:59; Status DC Lactated Ringer's 1,000 ml @ 30 mls/hr Q24H PRN IV SEE LABEL COMMENTS; Start at 04:45; Stop 10/15/17 at 22:50; Status DC Sodium Chloride 500 ml @ 30 mls/hr [id number] PRN IV SEE LABEL COMMENTS; Start at 04:45; Stop 10/15/17 at 22:50; Status DC Povidone Iodine (Betadine 5% Antisepsis Kit) 1 applic LOOM OPERATOR APPRENTICE PRN EACH NARE SEE LABEL COMMENTS; Start 10/15/17 at 04:45; Stop 10/15/17 at 22:50; Status DC Chlorhexidine Gluconate (Chlorhexidine 2% Cloth) 3 pack LOOM OPERATOR APPRENTICE PRN TOPICAL SEE LABEL COMMENTS; Start 10/15/17 at 04:45; Stop 10/18/17 at 04:44; Status DC Lidocaine HCl (Xylocaine 2% Inj) 50 ml STK-MED ONCE .ROUTE ; Start 10/15/17 at 19:57; Stop 10/15/17 at 19:58; Status DC Bupivacaine HCl (Marcaine Pf 0.5% Inj) 30 ml STK-MED ONCE .ROUTE Last administered on 10/15/17at 20:36; Start 10/15/17 at 19:57; Stop 10/15/17 at 19:58 ; Status DC Vancomycin HCl (Vancomycin Inj) 500 mg STK-MED ONCE .ROUTE Last administered on 10/15/17at 21:07; Start 10/15/17 at 21:07; Stop 10/15/17 at 21:08; Status DC Fentanyl Citrate (fentaNYL INJ) 100 mcg STK-MED ONCE .ROUTE ; Start 10/15/17 at 22:18; Stop 10/15/17 at 22:19; Status DC Miscellaneous Information (Post-op Orders (for Pharmacy)) STAT ONCE XX ; Start 10/15/17 at 22:30; Stop 10/15/17 at 22:49; Status DC Miscellaneous Information ALL NURSING DEPARTME... UNSCH PRN .XX SEE LABEL COMMENTS; Start 10/15/17 at 22:15; Stop 10/16/17 at 22:14; Status DC Morphine Sulfate (Morphine Inj) 5 mg ONCE ONCE IV PUSH Last administered on 10/16/17at 15:14; Start 10/16/17 at 15:00; Stop 10/16/17 at 15:01; Status DC Diatrizoate Meglum/ Diatrizoate Sod (Md Kapadia Liq) 18 ml ONCE ONCE PO Last administered on 10/16/17at 17:18; Start 10/16/17 at 15:45; Stop 10/16/17 at 15: 46; Status DC Lactated Ringer's 1,000 ml @ 50 mls/hr Q20H IV Last administered on 10/23/17at 13:05; Start 10/16/17 at 19:15; Stop 10/23/17 at 13:51; Status DC Iohexol (Omnipaque 350 Inj) 90 ml STK-MED ONCE IVCONTRAST Last administered on 10/16/17at 20:25; Start 10/16/17 at 20:22; Stop 10/16/17 at 20:23; Status DC Lidocaine HCl (Xylocaine-Mpf 1% Inj) 5 ml STK-MED ONCE OTHER ; Start 10/15/17 at 12:00; Stop 10/17/17 at 12:19; Status DC Propofol (Diprivan 200 Mg/20 ml Inj) 200 mg STK-MED ONCE IV ; Start 10/15/17 at 12:00; Stop 10/17/17 at 12:19; Status DC Lidocaine HCl (Xylocaine 1% Inj) 9 ml STK-MED ONCE SQ Last administered on at 14:59; Start 10/20/17 at 14:59; Stop 10/20/17 at 15:00; Status DC Collagenase (Santyl Oint) 1 applic DAILY TOPICAL Last administered on at 09:00; Start 10/22/17 at 12:00 Gabapentin (Neurontin) 600 mg TID PO Last administered on 10/31/17at 08:59; Start 10/23/17 at 18:00 Furosemide (Lasix Inj) 20 mg ONCE ONCE IV PUSH Last administered on 10/23/17at 14:09; Start 10/23/17 at 14:00; Stop 10/23/17 at 14:01; Status DC Linezolid (Zyvox) 600 mg Q12HR PO Last administered on 10/28/17at 08:53; Start 10/23/17 at 21:00; Stop 10/28/17 at 11:12; Status DC Gadodiamide (Omniscan Pf Inj) 14 ml STK-MED ONCE IVCONTRAST Last administered on 10/24/17at 10:48; Start 10/24/17 at 10:48; Stop 10/24/17 at 10:49; Status DC Bupivacaine HCl (Marcaine Pf 0.5% Inj) 30 ml STK-MED ONCE .ROUTE ; Start at 07:26; Stop 10/25/17 at 07:27; Status DC Acetaminophen 100 ml @ As Directed STK-MED ONCE IV ; Start 10/25/17 at 07:33; Stop 10/25/17 at 07:34; Status DC Midazolam HCl (Versed Inj) 2 mg STK-MED ONCE .ROUTE ; Start 10/25/17 at 09:32; Stop 10/25/17 at 09:33; Status DC Fentanyl Citrate (fentaNYL INJ) 100 mcg STK-MED ONCE .ROUTE ; Start 10/25/17 at 09:33; Stop 10/25/17 at 09:34; Status DC Miscellaneous Information ALL NURSING DEPARTME... UNSCH PRN .XX SEE LABEL COMMENTS; Start 10/25/17 at 12:30; Stop 10/26/17 at 12:29; Status DC Sodium Chloride 1,000 ml @ 50 mls/hr Q20H IV Last administered on 10/30/17at 20 :44; Start 10/27/17 at 13:30 Lidocaine HCl (Xylocaine-Mpf 1% Inj) 5 ml STK-MED ONCE OTHER ; Start 10/25/17 at 12:00; Stop 10/28/17 at 09:30; Status DC Phenylephrine HCl (Neosynephrine/ NS 1000 Mcg/10ml Syr) 1,000 mcg STK-MED ONCE IV ; Start 10/25/17 at 12:00; Stop 10/28/17 at 09:30; Status DC Dexamethasone Sodium Phosphate (Decadron Inj) 4 mg STK-MED ONCE IV ; Start 10/25 at 12:00; Stop 10/28/17 at 09:30; Status DC Ondansetron HCl (Zofran Inj) 4 mg STK-MED ONCE IV ; Start 10/25/17 at 12:00; Stop 10/28/17 at 09:30; Status DC Propofol (Diprivan 200 Mg/20 ml Inj) 200 mg STK-MED ONCE IV ; Start 10/25/17 at 12:00; Stop 10/28/17 at 09:30; Status DC Heparin Sodium (Porcine) (Heparin Inj) 5,000 units Q12H SQ Last administered on 10/31/17at 02:39; Start 10/28/17 at 15:00 A/P Problem List: (1) Osteomyelitis of foot ICD Code: M86.9 - Osteomyelitis, unspecified (2) Leukocytosis ICD Code: D72.829 - Elevated white blood cell count, unspecified (3) Dehydration with hyponatremia ICD Code: E87.1 - Hypo-osmolality and hyponatremia (4) Acute kidney injury ICD Code: N17.9 - Acute kidney failure, unspecified (5) Sepsis ICD Code: A41.9 - Sepsis, unspecified organism Status: Acute (6) Diabetic foot ulcer ICD Code: E11.621 - Type 2 diabetes mellitus with foot ulcer; L97.509 - Non- pressure chronic ulcer of other part of unspecified foot with unspecified severity Status: Acute (7) Acute renal failure superimposed on stage 3 chronic kidney disease ICD Code: N17.9 - Acute kidney failure, unspecified; N18.3 - Chronic kidney disease, stage 3 (moderate) (8) Bacteremia due to Gram-positive bacteria ICD Code: R78.81 - Bacteremia (9) Postoperative anemia ICD Code: D64.9 - Anemia, unspecified Assessment and Plan This is a 57-year-old male who presented with sepsis Sepsis - Secondary to diabetic foot infection, bacteremia, right foot osteomyelitis: Appreciate infectious disease recommendations. He does have a right knee pleural effusion with no growth. -On Rocephin. Levaquin and Zyvox DC'd 10/28/2017. Wound culture growing staph and strep not A/B/D. New cultures obtained in surgery are growing staph aureus. -Patient continues to have fever currently on Rocephin. ? drug fever. cxr shows left sided PNA which improved and CRP mild increase. management per ID. Right foot osteomyelitis: Appreciate podiatry recommendations. -Status post incision and drainage, fifth metatarsal resection, fifth digit amputation on 10/08/17. Podiatry is recommending IV antibiotics on discharge. Final antibiotic recommendations per infectious disease. Continue wound care. S/P irrigation/debridement with wound vac placement 10/25/17. -need to wean off IV pain medication. give Percocet d/c Fowler and decrease morphine. Right knee effusion: - Improving. Continue antibiotics. Appreciate orthopedic surgery recommendations. So far cultures are negative. Patient refusing I&D at the moment. Bilateral pleural effusion: -Appreciate pulmonology recommendations. Status post right-sided thoracentesis. Cytology is negative for malignant cells. Peripheral vascular disease: -Appreciate vascular surgery recommendations. Per vascular surgery, no surgical intervention is planned. Postoperative anemia: -Received transfusion of 2 units PRBCs. Monitor H&H. Diabetes mellitus type 2: -Continue Levemir. Monitor Accu-Cheks and cover with sliding scale insulin. Continue preprandial insulin as well. Acute kidney injury superimposed on chronic kidney disease stage III -Creatinine continues to improve. Continue with light hydration with IV fluids. Stage one pressure ulcer. -Patient needs turning every 2 hours. PT working with patient. Hypokalemia -Replenish as needed. DVT prophylaxis: Heparin. Problem Qualifiers (1) Sepsis: Qualified Codes: A41.9 - Sepsis, unspecified organism (2) Diabetic foot ulcer: Qualified Codes: E10.621 - Type 1 diabetes mellitus with foot ulcer; L97.419 - Non-pressure chronic ulcer of right heel and midfoot with unspecified severity Petty Ospina MD Oct 31, 2017 11:09
[2017-10-31 11:32] LABS: HEMATOCRIT 23.5 % (39.0-51.0); HEMOGLOBIN 7.9 GM/DL (13.0-17.0); MEAN CELL VOLUME 82.7 FL (80.0-100.0); MEAN CORPUSCULAR HEMOGLOBIN 27.7 PG (27.0-34.0); MEAN CORPUSCULAR HGB CONC 33.5 % (32.0-36.0); MEAN PLATELET VOLUME 7.2 FL (7.0-11.0); PLATELET COUNT 247 TH/MM3 (150-450); RED BLOOD COUNT 2.84 MIL/MM3 (4.50-5.90); RED CELL DISTRIBUTION WIDTH 14.8 % (11.6-17.2); WHITE BLOOD COUNT 6.5 TH/MM3 (4.0-11.0)
[2017-10-31 11:47] LABS: BICARBONATE 26.5 MEQ/L (21.0-32.0); CALCIUM 8.2 MG/DL (8.5-10.1); CREATININE 0.97 MG/DL (0.60-1.30)
[2017-10-31] MEDS ORDERED: oxyCODONE/ACETAMINOPHEN 5 MG/325 MG TAB PO PRN (12:15)
--- NOTE | 2017-10-31 13:30 | HHI.IDPN ---
Subjective Subjective Remarks ID COVERAGE Mr. Braxton is a 57-year-old male with past medical history significant for diabetes type 2, prior diabetic foot ulcer treated in October 2016 thereafter was hospitalized from May 08, 2017 to May 29, 2017 due to foot ulcer. During that hospitalization patient underwent surgical debridement with wound VAC placement. Patient reports that he was seen by Dr. Pritchard during that admission. Patient reports that he was discharged on IV ceftriaxone using a PICC line. Patient had home health care visits him and continue to receive wound VAC changes at home. He also was subsequently seen at wound care clinic for ongoing wound care as well as [facility] for his primary care needs. Patient reports that his medications were recently adjusted and a new insulin was introduced. Patient reports that he was diagnosed with a possible staph or strep infection and has been on oral Bactrim approximately 2 weeks prior to admission. Due to worsening foot infection as well as possible reaction to the new insulin patient presented to the emergency department [facility]. Patient reports that he was having fevers, chills, loss of appetite and diarrhea for the past 2 days associated with frequent urination. Patient denies any dysuria. He reports dizziness and reported history of falls 3 days ago while on the toilet. Patient's reports that she was unaware of this history of fall. He denies any head injury. Patient reports hitting his right foot and shoulder but that he was able to get off the floor by himself. Patient had a sepsis workup initiated on admission. Wound cultures are positive for strep as well as blood cultures are now positive for gram-positive likely strep. Repeat blood cultures have been ordered. Podiatry is seeing the patient and there is a plan for surgical intervention and possible amputation of the involved digit. Infectious disease is consulted for evaluation and management of right fifth toe osteomyelitis with associated cellulitis, gram-positive bacteremia and sepsis. S/p amputation 5th toe and 5thMT foot and blood clx + MSSA and strep + osteo extending to margins Notes reviewed Febrile up to 102+ Feels "Blah" Not coughing Not SOB No new complaints No rash or itching CRP slightly up compared to last one WBC ok. No new complaints. Clinically no change hemodynamically to suggest sepsis or new infection. C/S OR Staph aureus No diarrhea ECHO no veg's. Antibiotics Rocephin Current Medications Medications (Trade) Dose Ordered Sig/Anna Route Start Time Stop Time Status Last Admin (NS Flush) 2 ml UNSCH PRN IV FLUSH 10/07/17 16:45 10/21/17 23:13 (NS Flush) 2 ml BID IV FLUSH 10/07/17 21:00 10/31/17 09:00 (Narcan Inj) 0.4 mg UNSCH PRN IV PUSH 10/07/17 16:45 (D50w (Vial) Inj) 50 ml UNSCH PRN IV PUSH 10/08/17 10:30 (Glucagon Inj) 1 mg UNSCH PRN OTHER 10/08/17 10:30 (NovoLOG SUPPLEMENTAL SCALE) 1 ACHS SLIDING SCALE SQ 10/08/17 12:00 10/30/17 17:00 (Lactinex) 1 tab Q12HR PO 10/08/17 21:00 10/31/17 08:59 (NovoLOG INJ) 5 units TIDAC SQ 10/12/17 08:00 10/30/17 17:00 (Levemir Inj) 15 units HS SQ 10/12/17 21:00 10/30/17 20:40 (Morphine Inj) 4 mg Q3H PRN IV PUSH 10/13/17 12:45 10/31/17 11:48 (Restoril) 15 mg HS PRN PO 10/13/17 12:45 10/28/17 21:54 (Tylenol) 500 mg Q4H PRN PO 10/13/17 13:15 10/31/17 11:48 Ceftriaxone Sodium 2000 mg/ Sodium Chloride 100 ml @ 200 mls/hr Q24H IV 10/13/17 14:00 10/30/17 13:03 (Santyl Oint) 1 applic DAILY TOPICAL 10/22/17 12:00 10/31/17 09:00 (Neurontin) 600 mg TID PO 10/23/17 18:00 10/31/17 13:18 (Heparin Inj) 5,000 units Q12H SQ 10/28/17 15:00 10/31/17 02:39 (Morphine Inj) 2 mg Q4H PRN IV PUSH 10/31/17 12:45 (Percocet 5-325 Mg) 1 tab Q4H PRN PO 10/31/17 12:15 (Percocet 10-325 Mg) 1 tab Q4H PRN PO 10/31/17 12:15 Lines Line sites with no e.o infection Past Medical History Past Medical History DM II Right foot ulcer with possible osteomyelitis in the past. Has received IV antibiotics long-term using a PICC line in the past. Renal stones Past Surgical History Right foot debridement of wound removal of kidney stones Tonsillitis Allergies: Coded Allergies: No Known Allergies (Unverified Adverse Reaction, Unknown, 09/15/17) Uncoded Allergies: citizen of [place] dressing (Allergy, Severe, Anaphylaxis, 10/07/17) Objective . Vital Signs Date Time Temp Pulse Resp B/P (MAP) Pulse Ox O2 Delivery O2 Flow Rate FiO2 10/31/17 12:00 102.0 116 22 149/90 (109) 91 10/31/17 08:00 101.7 107 20 143/90 (107) 90 10/31/17 07:43 Nasal Cannula 2.00 10/31/17 04:00 100.4 103 18 139/84 (102) 96 10/31/17 04:00 Nasal Cannula 2.00 10/31/17 00:12 102.8 115 18 168/98 (121) 94 10/31/17 00:00 Nasal Cannula 2.00 10/30/17 20:41 98.8 98 17 120/84 (96) 98 10/30/17 20:00 Nasal Cannula 2.00 10/30/17 16:04 99.0 96 18 140/81 (100) 97 10/31/17 10/31/17 11/01/17 15:00 23:00 07:00 Intake Total 50 ml Balance 50 ml IV Total 50 ml . Laboratory Tests Test 10/30/17 06:30 10/31/17 11:23 White Blood Count 5.2 TH/MM3 6.5 TH/MM3 Red Blood Count 2.55 MIL/MM3 2.84 MIL/MM3 Hemoglobin 7.1 GM/DL 7.9 GM/DL Hematocrit 20.9 % 23.5 % Mean Corpuscular Volume 82.0 FL 82.7 FL Mean Corpuscular Hemoglobin 27.8 PG 27.7 PG Mean Corpuscular Hemoglobin Concent 33.8 % 33.5 % Red Cell Distribution Width 14.6 % 14.8 % Platelet Count 202 TH/MM3 247 TH/MM3 Mean Platelet Volume 7.6 FL 7.2 FL Laboratory Tests Test 10/30/17 06:30 10/31/17 11:23 Blood Urea Nitrogen 17 MG/DL 16 MG/DL Creatinine 0.95 MG/DL 0.97 MG/DL Random Glucose 147 MG/DL 142 MG/DL Calcium Level 8.4 MG/DL 8.2 MG/DL Sodium Level 134 MEQ/L 135 MEQ/L Potassium Level 4.0 MEQ/L 4.3 MEQ/L Chloride Level 100 MEQ/L 100 MEQ/L Carbon Dioxide Level 26.0 MEQ/L 26.5 MEQ/L Anion Gap 8 MEQ/L 9 MEQ/L Estimat Glomerular Filtration Rate 81 ML/MIN 79 ML/MIN C-Reactive Protein 18.70 MG/DL Imaging Chest X-Ray 10/30/17 0000 Signed Impressions: Service Date/Time: October 13:55 - CONCLUSION: 1. Consolidation of the left lower lobe. This would be concerning for a pneumonia. 2. Focal area of infiltrate seen in the left perihilar region. Raghavendra Lim MD Foot X-Ray 10/23/17 0000 Signed Impressions: Service Date/Time: October 17:15 - CONCLUSION: 1. 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 Lupillo Webster MD Chest X-Ray 10/22/17 0000 Signed Impressions: Service Date/Time: Sunday, October 22, 2017 09:07 - CONCLUSION: 1. Bilateral infiltrates and effusion. The exam has worsen when compared to previous dated 10/20/17. Raghavendra Lim MD Thoracentesis Ultrasound 10/20/17 0600 Signed Impressions: Service Date/Time: Friday, October 20, 2017 13:03 - CONCLUSION: Uncomplicated ultrasound guided thoracentesis. Smooth Saucedo MD Chest Ultrasound 10/17/17 0000 Signed Impressions: Service Date/Time: Tuesday, October 17, 2017 20:24 - CONCLUSION: A moderate to large right pleural effusion is confirmed sonographically and marked for thoracentesis. Hector Pierre MD Chest CT 10/16/17 0000 Signed Impressions: Service Date/Time: October 20:14 - CONCLUSION: Moderate-sized bilateral pleural effusions with adjacent compressive atelectasis and/or pneumonia. Scattered increased interstitial infiltrates within the perihilar regions and upper lobes bilaterally raising the possibility of pulmonary vascular congestion. Cardiomegaly and coronary artery calcifications are noted. Mild pretracheal and AP window mediastinal lymphadenopathy which is nonspecific. Degenerative changes and mild scoliosis of the thoracic spine. Hector Pierre MD Aspiration 10/16/17 0000 Signed Impressions: Service Date/Time: October 15:48 - CONCLUSION: Uncomplicated aspiration as above. Chetan Escobedo MD Abdomen/Pelvis CT 10/16/17 0000 Signed Impressions: Service Date/Time: October 20:14 - CONCLUSION: 1. Moderate-sized bilateral pleural effusions with adjacent consolidations consistent with atelectasis and/or pneumonia. 2. Tiny calcified nonobstructing bilateral renal calculi. 3. Mild hepatosplenomegaly. 4. Uncomplicated colonic diverticulosis. 5. Minimal free fluid within the pelvis. 6. Streakiness and fluid within the bilateral retroperitoneum inferior to the kidneys and extending into the presacral region. 7. Degenerative changes and scoliosis of the thoracolumbar spine. Hector Pierre MD Knee X-Ray 10/15/17 0000 Signed Impressions: Service Date/Time: Sunday, October 15, 2017 15:26 - CONCLUSION: Large joint effusion otherwise negative. Tu Lim MD FACR Carotid Artery Ultrasound 10/13/17 0000 Signed Impressions: Service Date/Time: Friday, October 13, 2017 16:12 - CONCLUSION: No evidence of flow-limiting carotid stenosis. Wm Riley MD Aorta w/Runoff CTA 10/13/17 0000 Signed Impressions: Service Date/Time: Friday, October 13, 2017 22:41 - CONCLUSION: 1. No aortic occlusive disease. 2. No significant iliac inflow stenosis. 3. No significant outflow stenosis. 4. Diffuse bilateral runoff disease with heavily calcified tibial arteries and significant venous contamination precluding patency evaluation beyond the very proximal calf. 5. Small to moderate bilateral pleural effusions with associated airspace disease at the lung bases, presumably atelectasis. 6. Trace free fluid in the deep pelvis. 7. Ancillary findings include hepatic steatosis, nonobstructing punctate calyceal calculus in the inferior pole of the left kidney and small suprapatellar right joint effusion. Lupillo Webster MD Foot MRI 10/12/17 0000 Signed Impressions: Service Date/Time: Thursday, October 12, 2017 08:31 - CONCLUSION: 1. No areas of suspected osteomyelitis. 2. Superficial soft tissue swelling over the third and fourth metatarsals. There is also some edema within the plantar musculature. Wm Dupree MD Ankle MRI 10/11/17 0000 Signed Impressions: Service Date/Time: Wednesday, October 11, 2017 09:41 - CONCLUSION: 1. No definite areas of osteomyelitis. There is some edema within the lateral cuboid adjacent to the suspected surgical defect which is likely reactive. T1 signal is maintained. 2. Multiple areas of focal edema within the midfoot mainly related to the subarticular regions likely related to underlying arthritic change. 3. The patient appears to be status post resection of the fifth metatarsal with post surgical change at the lateral hind and midfoot and a small focus of air seen adjacent to the calcaneus. Wm Dupree MD Physical Exam GENERAL: awake and alert, NAD SKIN: Cool and dry. No generalized rash HEAD: Atraumatic. Normocephalic. No temporal or scalp tenderness. EYES: Pupils equal round and reactive. EOM full and intact. No scleral icterus. No injection or drainage. ENT: Moist mucosa, no lesions, no oral thrush NECK: Trachea midline.Supple, nontender, no meningeal signs. CARDIOVASCULAR: Heart sounds audible. RESPIRATORY: basilar crackles. Breath sounds decreased bilateral bases. GASTROINTESTINAL: Abdomen soft, non-tender, nondistended. MUSCULOSKELETAL: Right foot with wound vac. Left foot in dressing. NEUROLOGICAL: Awake and alert. Nonfocal exam Psych cooperative IV line sites with no evidence of infection. Assessment & Plan Remarks Sepsis present on admission Strep bacteremia secondary to right foot osteomyelitis and cellulitis Staph MSSA bacteremia high grade. Strep not AB,D and Staph infection Right foot fifth MPJ osteomyelitis Right foot cellulitis Pneumonia with bilateral pleural effusions ? HCAP vs septic emboli. Right knee septic arthritis. Diabetes type 2 uncontrolled Acute renal failure: Sepsis, prerenal: improving Fevers, up again - nobn-localizing - ?drug fever Recommendations: Repeat 2 BC today Change Rocephin to Cubicin for possible drug fever Doppler LE bilaterally negative for DVT. Monitor temps Follow cultures Monitor progress D/W patient Dr Babcock covering this weekend Marci Bocanegra MD Oct 31, 2017 13:30
[2017-10-31] MEDS: cefTRIAXone INJ 2,000 MG in SODIUM CHLORIDE 0.9% INJ 100 ML IV SCH (14:13)
[2017-10-31 14:33] LABS: ALBUMIN 1.9 GM/DL (3.4-5.0); DIRECT BILIRUBIN ADULT 0.1 MG/DL (0.0-0.2)
[2017-10-31 14:35] LABS: INDIRECT BILIRUBIN 0.1 MG/DL (0.0-0.8); TOTAL BILIRUBIN ADULT 0.2 MG/DL (0.2-1.0); TOTAL PROTEIN 7.6 GM/DL (6.4-8.2)
[2017-10-31] MEDS: DAPTOMYCIN IV SCH (16:56)
[2017-10-31] MEDS: SODIUM CHLORIDE 0.9% IV SCH (16:56)
[2017-10-31] MEDS: oxyCODONE/ACETAMINOPHEN 10 MG/325 MG TAB PO PRN ×2 (18:11→22:59)
[2017-10-31] MEDS: MORPHINE SULFATE 2 MG/ML SYRINGE IV PUSH PRN (20:41)
[2017-10-31] MEDS: INSULIN DETEMIR 100 UNITS/ML VIAL SQ SCH (20:42)
[2017-11-01] VITALS: BP 145/75; PULSE 104; RESP 20; TEMP 101.1; O2SAT 95
[2017-11-01] MEDS: MORPHINE SULFATE 2 MG/ML SYRINGE IV PUSH PRN ×5 (01:04→19:20)
[2017-11-01] MEDS: HEPARIN SODIUM - SQ 10,000 UNITS/ML VIAL SQ SCH ×2 (02:30→14:39)
[2017-11-01] MEDS: oxyCODONE/ACETAMINOPHEN 10 MG/325 MG TAB PO PRN ×5 (03:30→21:54)
[2017-11-01 04:00] VITALS: BP 120/69; PULSE 102; RESP 20; TEMP 100; O2SAT 95
[2017-11-01 08:00] VITALS: BP 156/90; PULSE 107; RESP 20; TEMP 99.9; O2SAT 91
[2017-11-01] MEDS: INSULIN ASPART 1,000 UNITS/10 ML VIAL SQ SCH ×3 (08:00→16:58)
[2017-11-01] MEDS: INSULIN ASPART SUPPLEMENTAL SCALE SQ SCH ×4 (08:00→21:55)
[2017-11-01] MEDS: COLLAGENASE OINT 30 GM TUBE TOPICAL SCH (08:10)
[2017-11-01] MEDS: LACTOBACILLUS ACIDOPHILUS TAB PO SCH ×2 (08:11→21:53)
[2017-11-01] MEDS: GABAPENTIN 300 MG CAP PO SCH ×3 (08:11→16:59)
[2017-11-01] MEDS: SODIUM CHLORIDE 0.9% FLUSH 10 ML FLUSH IV FLUSH SCH ×2 (08:12→21:00)
--- NOTE | 2017-11-01 11:31 | HHI.PR ---
Subjective Remarks Follow-up for fevers Patient continued a fever. Rocephin was discontinued yesterday patient was started on daptomycin. Patient stated that he feels a lot better today. He stated that the change in pain medication helped a lot. He has no other complaints. Objective Vitals Vital Signs Date Time Temp Pulse Resp B/P (MAP) Pulse Ox O2 Delivery O2 Flow Rate FiO2 11/01/17 08:00 99.9 107 20 156/90 (112) 91 11/01/17 04:00 100.0 102 20 120/69 (86) 95 11/01/17 00:00 Nasal Cannula 2.00 11/01/17 00:00 101.1 104 20 145/75 (98) 95 10/31/17 20:00 99.4 101 20 116/67 (83) 93 10/31/17 20:00 Nasal Cannula 2.00 10/31/17 16:00 99.5 100 20 135/86 (102) 94 10/31/17 14:27 99.2 10/31/17 12:00 102.0 116 22 149/90 (109) 91 I/O 10/31/17 10/31/17 10/31/17 11/01/17 11/01/17 11/01/17 07:00 15:00 23:00 07:00 15:00 23:00 Intake Total 701 ml 150 ml 1180 ml 240 ml Output Total 580 ml 360 ml 275 ml 550 ml Balance 121 ml 150 ml 820 ml -35 ml -550 ml Intake Oral 701 ml 1080 ml 240 ml IV Total 150 ml 100 ml Output Urine Total 580 ml 360 ml 275 ml 550 ml # Voids 1 7 # Bowel Movements 1 1 1 Result Diagram: 10/31/17 1123 10/31/17 1123 Objective Remarks GENERAL: in NAD SKIN: Sacral gluteal area with macular pink rash. CARDIOVASCULAR: Regular rate and rhythm without murmurs, gallops, or rubs. RESPIRATORY: Breath sounds equal bilaterally. No accessory muscle use. GASTROINTESTINAL: Abdomen soft, non-tender, nondistended. MUSCULOSKELETAL: Right knee with swelling. No erythema or warmth. Right foot wrapped in bandages wound VAC in place. Procedures 10/08/17 Right foot and ankle incision drainage, 5th metatarsal resection, 5th digit amputation 10/25/17 Incision and drainage Right foot/ankle abscess with bone biopsy right 4th metatarsal base; wound vac placement Medications and IVs Current Medications Piperacillin Sod/ Tazobactam Sod 100 ml @ 200 mls/hr ONCE STAT IV Last administered on 10/07/17at 15:56; Start 10/07/17 at 14:48; Stop 10/07/17 at 15:17 ; Status DC Vancomycin HCl 1000 mg/Sodium Chloride 250 ml @ 250 mls/hr ONCE STAT IV Last administered on 10/07/17at 16:32; Start 10/07/17 at 14:48; Stop 10/07/17 at 15:47 ; Status DC Sodium Chloride 1,000 ml @ 999 mls/hr BOLUS ONCE IV Last administered on 10/07at 15:57; Start 10/07/17 at 15:00; Stop 10/07/17 at 16:00; Status DC Oxycodone/ Acetaminophen (Percocet 5-325 Mg) 1 tab ONCE ONCE PO Last administered on 10/07/17at 16:31; Start 10/07/17 at 16:30; Stop 10/07/17 at 16:31 ; Status DC Sodium Chloride (NS Flush) 2 ml UNSCH PRN IV FLUSH FLUSH AFTER USING IV ACCESS Last administered on 10/21/17at 23:13; Start 10/07/17 at 16:45 Sodium Chloride (NS Flush) 2 ml BID IV FLUSH Last administered on 11/01/17at 08: 12; Start 10/07/17 at 21:00 Naloxone HCl (Narcan Inj) 0.4 mg UNSCH PRN IV PUSH SEE LABEL COMMENTS; Start at 16:45 Pharmacy Profile Note 0 ml @ 0 mls/hr UNSCH OTHER ; Start 10/07/17 at 17:00; Stop 10/11/17 at 13:39; Status DC Piperacillin Sod/ Tazobactam Sod 100 ml @ 200 mls/hr Q6H IV Last administered on 10/09/17at 09:27; Start 10/07/17 at 22:00; Stop 10/09/17 at 15:14; Status DC Sodium Chloride 500 ml @ 500 mls/hr BOLUS ONCE IV Last administered on at 18:50; Start 10/07/17 at 17:30; Stop 10/07/17 at 18:29; Status DC Tramadol HCl (Ultram) 50 mg Q12H PRN PO PAIN SCALE 5 TO 10 Last administered on 10/09/17at 09:27; Start 10/07/17 at 17:30; Stop 10/09/17 at 10:48; Status DC Vancomycin HCl 1250 mg/Sodium Chloride 262.5 ml @ 250 mls/hr Q24H IV Last administered on 10/10/17at 12:14; Start 10/08/17 at 11:00; Stop 10/10/17 at 14:01 ; Status DC Miscellaneous Information SPECIFIC LAB TO BE LUCERO... ONCE ONCE .XX Last administered on 10/10/17at 12:14; Start 10/10/17 at 10:45; Stop 10/10/17 at 10:46 ; Status DC Insulin Aspart (NovoLOG SUPPLEMENTAL SCALE) 1 ACHS SLIDING SCALE SQ Last administered on 10/08/17at 10:19; Start 10/07/17 at 21:00; Stop 10/08/17 at 10:27 ; Status DC Dextrose (D50w (Vial) Inj) 50 ml UNSCH PRN IV PUSH HYPOGLYCEMIA - SEE COMMENTS ; Start 10/07/17 at 19:15; Stop 10/08/17 at 10:27; Status DC Glucagon (Glucagon Inj) 1 mg UNSCH PRN OTHER HYPOGLYCEMIA-SEE COMMENTS; Start 10/07/17 at 19:15; Stop 10/08/17 at 10:27; Status DC Heparin Sodium (Porcine) (Heparin Inj) 5,000 units Q8HR SQ Last administered on 10/24/17at 21:32; Start 10/08/17 at 06:00; Stop 10/25/17 at 12:15; Status DC Acetaminophen/ Hydrocodone Bitart ([place] 5-325 Mg) 1 tab ONCE ONCE PO Last administered on 10/08/17at 01:21; Start 10/07/17 at 23:45; Stop 10/07/17 at 23:46 ; Status DC Gadodiamide (Omniscan Pf Inj) 14 ml STK-MED ONCE IVCONTRAST Last administered on 10/08/17at 09:53; Start 10/08/17 at 09:51; Stop 10/08/17 at 09:52; Status DC Dextrose (D50w (Vial) Inj) 50 ml UNSCH PRN IV PUSH HYPOGLYCEMIA-SEE COMMENTS; Start 10/08/17 at 10:30 Glucagon (Glucagon Inj) 1 mg UNSCH PRN OTHER HYPOGLYCEMIA-SEE COMMENTS; Start 10/08/17 at 10:30 Insulin Aspart (NovoLOG SUPPLEMENTAL SCALE) 1 ACHS SLIDING SCALE SQ Last administered on 10/30/17at 17:00; Start 10/08/17 at 12:00 Lactobacillus Acidophilus (Lactinex) 1 tab Q12HR PO Last administered on at 08:11; Start 10/08/17 at 21:00 Sodium Chloride 1,000 ml @ 84 mls/hr [id number] IV Last administered on at 21:04; Start 10/08/17 at 11:00; Stop 10/10/17 at 07:31; Status DC Bupivacaine HCl (Marcaine Pf 0.25% Inj) 30 ml STK-MED ONCE .ROUTE Last administered on 10/08/17at 16:28; Start 10/08/17 at 12:51; Stop 10/08/17 at 12:52 ; Status DC Morphine Sulfate (*morphine INJ PERIprocedure ONLY) 10 mg STK-MED ONCE .ROUTE Last administered on 10/08/17at 17:35; Start 10/08/17 at 17:35; Stop 10/08/17 at 17:36; Status DC Midazolam HCl (Versed Inj) 2 mg STK-MED ONCE .ROUTE ; Start 10/08/17 at 17:36; Stop 10/08/17 at 17:37; Status DC Fentanyl Citrate (fentaNYL INJ) 100 mcg STK-MED ONCE .ROUTE ; Start 10/08/17 at 17:36; Stop 10/08/17 at 17:37; Status DC Morphine Sulfate (Morphine Inj) 4 mg STK-MED ONCE .ROUTE ; Start 10/08/17 at 17: 36; Stop 10/08/17 at 17:37; Status DC Miscellaneous Information ALL NURSING DEPARTME... UNSCH PRN .XX SEE LABEL COMMENTS; Start 10/08/17 at 17:25; Stop 10/09/17 at 17:24; Status DC Acetaminophen (Tylenol) 650 mg Q4H PRN PO fever > 101, ZIMMERMAN; Start 10/09/17 at 01 :15; Stop 10/13/17 at 12:38; Status DC Insulin Detemir (Levemir Inj) 10 units BID SQ Last administered on 10/09/17at 21 :03; Start 10/09/17 at 11:00; Stop 10/10/17 at 07:31; Status DC Acetaminophen/ Hydrocodone Bitart ([place] 5-325 Mg) 1 tab Q4H PRN PO pain2-10 Last administered on 10/13/17at 05:47; Start 10/09/17 at 10:15; Stop 10/13/17 at 12:38; Status DC Rocuronium [place] (Zemuron Inj) 50 mg STK-MED ONCE IV PUSH ; Start 10/08/17 at 12:00; Stop 10/09/17 at 14:48; Status DC Phenylephrine HCl (Neosynephrine/ NS 1000 Mcg/10ml Syr) 1,000 mcg STK-MED ONCE IV ; Start 10/08/17 at 12:00; Stop 10/09/17 at 14:48; Status DC Propofol (Diprivan 200 Mg/20 ml Inj) 200 mg STK-MED ONCE IV ; Start 10/08/17 at 12:00; Stop 10/09/17 at 14:48; Status DC Ceftriaxone Sodium 2000 mg/ Sodium Chloride 100 ml @ 200 mls/hr Q24H IV Last administered on 10/10/17at 16:44; Start 10/09/17 at 17:00; Stop 10/11/17 at 13:39 ; Status DC Sodium Chloride 250 ml @ 15 mls/hr ONCE ONCE IV Last administered on at 09:45; Start 10/10/17 at 07:30; Stop 10/11/17 at 00:09; Status DC Acetaminophen (Tylenol) 650 mg Q4H PRN PO SEE LABEL COMMENTS Last administered on 10/10/17at 16:45; Start 10/10/17 at 07:30; Stop 10/10/17 at 23:59; Status DC Diphenhydramine HCl (Benadryl) 25 mg Q4H PRN PO SEE LABEL COMMENTS Last administered on 10/10/17at 16:44; Start 10/10/17 at 07:30; Stop 10/10/17 at 23:59 ; Status DC Insulin Detemir (Levemir Inj) 15 units BID SQ Last administered on 10/11/17at 08 :09; Start 10/10/17 at 09:00; Stop 10/11/17 at 20:22; Status DC Sodium Chloride 1,000 ml @ 84 mls/hr [id number] IV Last administered on 10/16/17at 08:56; Start 10/10/17 at 11:00; Stop 10/16/17 at 19:02; Status DC Bupivacaine HCl (Marcaine Pf 0.25% Inj) 30 ml STK-MED ONCE .ROUTE ; Start at 12:08; Stop 10/10/17 at 12:09; Status DC Neomycin/Polymyxin (Neosporin G.u. Irr) 2 ml STK-MED ONCE .ROUTE ; Start at 12:13; Stop 10/10/17 at 12:14; Status DC Vancomycin HCl 1250 mg/Sodium Chloride 262.5 ml @ 250 mls/hr Q18H IV Last administered on 10/11/17at 05:14; Start 10/11/17 at 06:00; Stop 10/11/17 at 13:39 ; Status DC Miscellaneous Information SPECIFIC LAB TO BE LUCERO... ONCE ONCE .XX ; Start 10/12 at 17:45; Stop 10/12/17 at 17:45; Status DC Fentanyl Citrate (fentaNYL INJ) 100 mcg STK-MED ONCE .ROUTE ; Start 10/10/17 at 14:39; Stop 10/10/17 at 14:40; Status DC Midazolam HCl (Versed Inj) 2 mg STK-MED ONCE .ROUTE ; Start 10/10/17 at 14:39; Stop 10/10/17 at 14:40; Status DC Miscellaneous Information ALL NURSING DEPARTME... UNSCH PRN .XX SEE LABEL COMMENTS; Start 10/10/17 at 14:30; Stop 10/11/17 at 14:29; Status DC Gadodiamide (Omniscan Pf Inj) 14 ml STK-MED ONCE IVCONTRAST Last administered on 10/11/17at 10:03; Start 10/11/17 at 10:03; Stop 10/11/17 at 10:04; Status DC Cefazolin Sodium/ Dextrose 50 ml @ 150 mls/hr Q8H IV Last administered on 10/13at 05:55; Start 10/11/17 at 14:00; Stop 10/13/17 at 13:26; Status DC Insulin Detemir (Levemir Inj) 20 units HS SQ Last administered on 10/11/17at 22: 54; Start 10/11/17 at 21:00; Stop 10/12/17 at 13:47; Status DC Insulin Aspart (NovoLOG INJ) 5 units TIDAC SQ Last administered on 10/31/17at 18 :14; Start 10/12/17 at 08:00 Gadodiamide (Omniscan Pf Inj) 18 ml STK-MED ONCE IVCONTRAST Last administered on 10/12/17at 08:53; Start 10/12/17 at 08:53; Stop 10/12/17 at 08:54; Status DC Insulin Detemir (Levemir Inj) 15 units HS SQ Last administered on 10/31/17at 20: 42; Start 10/12/17 at 21:00 Lidocaine HCl (Xylocaine-Mpf 1% Inj) 5 ml STK-MED ONCE OTHER ; Start 10/10/17 at 12:00; Stop 10/13/17 at 09:31; Status DC Phenylephrine HCl (Neosynephrine/ NS 1000 Mcg/10ml Syr) 1,000 mcg STK-MED ONCE IV ; Start 10/10/17 at 12:00; Stop 10/13/17 at 09:31; Status DC Ephedrine Sulfate (ePHEDrine/NS 25 MG/5 ML SYR) 25 mg STK-MED ONCE IV ; Start at 12:00; Stop 10/13/17 at 09:31; Status DC Dexamethasone Sodium Phosphate (Decadron Inj) 4 mg STK-MED ONCE IV ; Start 10/10 at 12:00; Stop 10/13/17 at 09:31; Status DC Ondansetron HCl (Zofran Inj) 4 mg STK-MED ONCE IV ; Start 10/10/17 at 12:00; Stop 10/13/17 at 09:31; Status DC Propofol (Diprivan 200 Mg/20 ml Inj) 200 mg STK-MED ONCE IV ; Start 10/10/17 at 12:00; Stop 10/13/17 at 09:31; Status DC Acetaminophen (Tylenol) 500 mg Q4H PRN PO Headache, fever, pain 1-4; Start at 13:15; Stop 10/13/17 at 13:15; Status DC Acetaminophen/ Hydrocodone Bitart ([place] 7.5-325 Mg) 1 tab Q6H PRN PO PAIN SCALE 5 TO 10 Last administered on 10/31/17 05:27; Start 10/13/17 at 12:45; Stop 10/31/17 at 11:02; Status DC Morphine Sulfate (Morphine Inj) 5 mg Q4H PRN IV PUSH BREAKTHROUGH PAIN Last administered on 10/31/17 02:39; Start 10/13/17 at 12:45; Stop 10/31/17 at 11:02 ; Status DC Morphine Sulfate (Morphine Inj) 4 mg Q3H PRN IV PUSH Prior to dressing change Last administered on 10/31/17 15:15; Start 10/13/17 at 12:45 Temazepam (Restoril) 15 mg HS PRN PO INSOMNIA Last administered on 10/28/17 21 :54; Start 10/13/17 at 12:45 Acetaminophen (Tylenol) 500 mg Q4H PRN PO Headache, fever Last administered on 10/31/17 11:48; Start 10/13/17 at 13:15 Ceftriaxone Sodium 2000 mg/ Sodium Chloride 100 ml @ 200 mls/hr Q24H IV Last administered on 10/31/17 14:13; Start 10/13/17 at 14:00 Iohexol (Omnipaque 350 Inj) 100 ml STK-MED ONCE IVCONTRAST Last administered on 10/13/17 22:47; Start 10/13/17 at 22:46; Stop 10/13/17 at 22:47; Status DC Levofloxacin (Levaquin) 500 mg DAILY PO Last administered on 10/28/17 08:53; Start 10/14/17 at 17:00; Stop 10/28/17 at 11:12; Status DC Linezolid 300 ml @ 300 mls/hr Q12H IV Last administered on 10/23/17 04:38; Start 10/14/17 at 17:00; Stop 10/23/17 at 13:56; Status DC Potassium Chloride (KCl) 20 meq ONCE ONCE PO Last administered on 10/14/17at 18 :52; Start 10/14/17 at 18:30; Stop 10/14/17 at 18:31; Status DC Potassium Chloride (KCl) 20 meq Q12HR PO Last administered on 10/17/17at 08:40; Start 10/14/17 at 21:00; Stop 10/17/17 at 20:59; Status DC Lactated Ringer's 1,000 ml @ 30 mls/hr Q24H PRN IV SEE LABEL COMMENTS; Start at 04:45; Stop 10/15/17 at 22:50; Status DC Sodium Chloride 500 ml @ 30 mls/hr [id number] PRN IV SEE LABEL COMMENTS; Start at 04:45; Stop 10/15/17 at 22:50; Status DC Povidone Iodine (Betadine 5% Antisepsis Kit) 1 applic DIRECTOR MOTION PICTURE PRN EACH NARE SEE LABEL COMMENTS; Start 10/15/17 at 04:45; Stop 10/15/17 at 22:50; Status DC Chlorhexidine Gluconate (Chlorhexidine 2% Cloth) 3 pack DIRECTOR MOTION PICTURE PRN TOPICAL SEE LABEL COMMENTS; Start 10/15/17 at 04:45; Stop 10/18/17 at 04:44; Status DC Lidocaine HCl (Xylocaine 2% Inj) 50 ml STK-MED ONCE .ROUTE ; Start 10/15/17 at 19:57; Stop 10/15/17 at 19:58; Status DC Bupivacaine HCl (Marcaine Pf 0.5% Inj) 30 ml STK-MED ONCE .ROUTE Last administered on 10/15/17at 20:36; Start 10/15/17 at 19:57; Stop 10/15/17 at 19:58 ; Status DC Vancomycin HCl (Vancomycin Inj) 500 mg STK-MED ONCE .ROUTE Last administered on 10/15/17at 21:07; Start 10/15/17 at 21:07; Stop 10/15/17 at 21:08; Status DC Fentanyl Citrate (fentaNYL INJ) 100 mcg STK-MED ONCE .ROUTE ; Start 10/15/17 at 22:18; Stop 10/15/17 at 22:19; Status DC Miscellaneous Information (Post-op Orders (for Pharmacy)) STAT ONCE XX ; Start 10/15/17 at 22:30; Stop 10/15/17 at 22:49; Status DC Miscellaneous Information ALL NURSING DEPARTME... UNSCH PRN .XX SEE LABEL COMMENTS; Start 10/15/17 at 22:15; Stop 10/16/17 at 22:14; Status DC Morphine Sulfate (Morphine Inj) 5 mg ONCE ONCE IV PUSH Last administered on 10/16/17at 15:14; Start 10/16/17 at 15:00; Stop 10/16/17 at 15:01; Status DC Diatrizoate Meglum/ Diatrizoate Sod (Md Kapadia Liq) 18 ml ONCE ONCE PO Last administered on 10/16/17at 17:18; Start 10/16/17 at 15:45; Stop 10/16/17 at 15: 46; Status DC Lactated Ringer's 1,000 ml @ 50 mls/hr Q20H IV Last administered on 10/23/17at 13:05; Start 10/16/17 at 19:15; Stop 10/23/17 at 13:51; Status DC Iohexol (Omnipaque 350 Inj) 90 ml STK-MED ONCE IVCONTRAST Last administered on 10/16/17at 20:25; Start 10/16/17 at 20:22; Stop 10/16/17 at 20:23; Status DC Lidocaine HCl (Xylocaine-Mpf 1% Inj) 5 ml STK-MED ONCE OTHER ; Start 10/15/17 at 12:00; Stop 10/17/17 at 12:19; Status DC Propofol (Diprivan 200 Mg/20 ml Inj) 200 mg STK-MED ONCE IV ; Start 10/15/17 at 12:00; Stop 10/17/17 at 12:19; Status DC Lidocaine HCl (Xylocaine 1% Inj) 9 ml STK-MED ONCE SQ Last administered on at 14:59; Start 10/20/17 at 14:59; Stop 10/20/17 at 15:00; Status DC Collagenase (Santyl Oint) 1 applic DAILY TOPICAL Last administered on at 08:10; Start 10/22/17 at 12:00 Gabapentin (Neurontin) 600 mg TID PO Last administered on 11/01/17at 08:11; Start 10/23/17 at 18:00 Furosemide (Lasix Inj) 20 mg ONCE ONCE IV PUSH Last administered on 10/23/17at 14:09; Start 10/23/17 at 14:00; Stop 10/23/17 at 14:01; Status DC Linezolid (Zyvox) 600 mg Q12HR PO Last administered on 10/28/17at 08:53; Start 10/23/17 at 21:00; Stop 10/28/17 at 11:12; Status DC Gadodiamide (Omniscan Pf Inj) 14 ml STK-MED ONCE IVCONTRAST Last administered on 10/24/17at 10:48; Start 10/24/17 at 10:48; Stop 10/24/17 at 10:49; Status DC Bupivacaine HCl (Marcaine Pf 0.5% Inj) 30 ml STK-MED ONCE .ROUTE ; Start at 07:26; Stop 10/25/17 at 07:27; Status DC Acetaminophen 100 ml @ As Directed STK-MED ONCE IV ; Start 10/25/17 at 07:33; Stop 10/25/17 at 07:34; Status DC Midazolam HCl (Versed Inj) 2 mg STK-MED ONCE .ROUTE ; Start 10/25/17 at 09:32; Stop 10/25/17 at 09:33; Status DC Fentanyl Citrate (fentaNYL INJ) 100 mcg STK-MED ONCE .ROUTE ; Start 10/25/17 at 09:33; Stop 10/25/17 at 09:34; Status DC Miscellaneous Information ALL NURSING DEPARTME... UNSCH PRN .XX SEE LABEL COMMENTS; Start 10/25/17 at 12:30; Stop 10/26/17 at 12:29; Status DC Sodium Chloride 1,000 ml @ 50 mls/hr Q20H IV Last administered on 10/30/17at 20 :44; Start 10/27/17 at 13:30; Stop 10/31/17 at 10:59; Status DC Lidocaine HCl (Xylocaine-Mpf 1% Inj) 5 ml STK-MED ONCE OTHER ; Start 10/25/17 at 12:00; Stop 10/28/17 at 09:30; Status DC Phenylephrine HCl (Neosynephrine/ NS 1000 Mcg/10ml Syr) 1,000 mcg STK-MED ONCE IV ; Start 10/25/17 at 12:00; Stop 10/28/17 at 09:30; Status DC Dexamethasone Sodium Phosphate (Decadron Inj) 4 mg STK-MED ONCE IV ; Start 10/25 at 12:00; Stop 10/28/17 at 09:30; Status DC Ondansetron HCl (Zofran Inj) 4 mg STK-MED ONCE IV ; Start 10/25/17 at 12:00; Stop 10/28/17 at 09:30; Status DC Propofol (Diprivan 200 Mg/20 ml Inj) 200 mg STK-MED ONCE IV ; Start 10/25/17 at 12:00; Stop 10/28/17 at 09:30; Status DC Heparin Sodium (Porcine) (Heparin Inj) 5,000 units Q12H SQ Last administered on 11/01/17at 02:30; Start 10/28/17 at 15:00 Morphine Sulfate (Morphine Inj) 2 mg Q4H PRN IV PUSH BREAKTHROUGH PAIN Last administered on 11/01/17at 10:56; Start 10/31/17 at 12:45 Oxycodone/ Acetaminophen (Percocet 5-325 Mg) 1 tab Q4H PRN PO pain 1-7; Start 10/31/17 at 12:15 Oxycodone/ Acetaminophen (Percocet 10-325 Mg) 1 tab Q4H PRN PO pain 8-10 Last administered on 11/01/17at 08:11; Start 10/31/17 at 12:15 Daptomycin 640 mg/ Sodium Chloride 100 ml @ 200 mls/hr Q24H IV Last administered on 10/31/17at 16:56; Start 10/31/17 at 16:00 A/P Problem List: (1) Osteomyelitis of foot ICD Code: M86.9 - Osteomyelitis, unspecified (2) Leukocytosis ICD Code: D72.829 - Elevated white blood cell count, unspecified (3) Dehydration with hyponatremia ICD Code: E87.1 - Hypo-osmolality and hyponatremia (4) Acute kidney injury ICD Code: N17.9 - Acute kidney failure, unspecified (5) Sepsis ICD Code: A41.9 - Sepsis, unspecified organism Status: Acute (6) Diabetic foot ulcer ICD Code: E11.621 - Type 2 diabetes mellitus with foot ulcer; L97.509 - Non- pressure chronic ulcer of other part of unspecified foot with unspecified severity Status: Acute (7) Acute renal failure superimposed on stage 3 chronic kidney disease ICD Code: N17.9 - Acute kidney failure, unspecified; N18.3 - Chronic kidney disease, stage 3 (moderate) (8) Bacteremia due to Gram-positive bacteria ICD Code: R78.81 - Bacteremia (9) Postoperative anemia ICD Code: D64.9 - Anemia, unspecified Assessment and Plan This is a 57-year-old male who presented with sepsis Sepsis - Secondary to diabetic foot infection, bacteremia, right foot osteomyelitis: Appreciate infectious disease recommendations. He does have a right knee pleural effusion with no growth. -Rocephin was discontinued yesterday secondary to possible drug fever. Levaquin and Zyvox DC'd 10/28/2017. Wound culture growing staph and strep not A/ B/D. New cultures obtained in surgery are growing staph aureus. -Patient continues to have fever currently on Rocephin. ? drug fever. cxr shows left sided PNA which improved and CRP mild increase. -Patient now on daptomycin. Continue with daptomycin. Management per infectious disease. Right foot osteomyelitis: Appreciate podiatry recommendations. -Status post incision and drainage, fifth metatarsal resection, fifth digit amputation on 10/08/17. Podiatry is recommending IV antibiotics on discharge. Final antibiotic recommendations per infectious disease. Continue wound care. S/P irrigation/debridement with wound vac placement 10/25/17. -need to wean off IV pain medication. on Percocet. Right knee effusion: - Improving. Continue antibiotics. Appreciate orthopedic surgery recommendations. So far cultures are negative. Patient refusing I&D at the moment. Bilateral pleural effusion: -Appreciate pulmonology recommendations. Status post right-sided thoracentesis. Cytology is negative for malignant cells. Peripheral vascular disease: -Appreciate vascular surgery recommendations. Per vascular surgery, no surgical intervention is planned. Postoperative anemia: -Received transfusion of 2 units PRBCs. Monitor H&H. Diabetes mellitus type 2: -Continue Levemir. Monitor Accu-Cheks and cover with sliding scale insulin. Continue preprandial insulin as well. Acute kidney injury superimposed on chronic kidney disease stage III -Creatinine continues to improve. Continue with light hydration with IV fluids. Stage one pressure ulcer. -Patient needs turning every 2 hours. PT working with patient. Hypokalemia -Replenish as needed. DVT prophylaxis: Heparin. Problem Qualifiers (1) Sepsis: Qualified Codes: A41.9 - Sepsis, unspecified organism (2) Diabetic foot ulcer: Qualified Codes: E10.621 - Type 1 diabetes mellitus with foot ulcer; L97.419 - Non-pressure chronic ulcer of right heel and midfoot with unspecified severity Petty Ospina MD Nov 01, 2017 11:31
[2017-11-01 12:00] VITALS: BP 138/73; PULSE 104; RESP 22; TEMP 100.5; O2SAT 93
[2017-11-01] MEDS: cefTRIAXone INJ 2,000 MG in SODIUM CHLORIDE 0.9% INJ 100 ML IV SCH (14:34)
[2017-11-01 16:00] VITALS: BP 133/76; PULSE 106; RESP 20; TEMP 101.5; O2SAT 92
--- NOTE | 2017-11-01 16:36 | PD.POD ---
Subjective Podiatric Problems Right foot /ankle infection, s/p I&D R foot/ankle with 5th metatarsal and toe resection Dede 10/08/17 s/p I&D with wound vac right foot/ankle Popelka 10/15/17 s/p I&D with bone biopsy right 4th metatarsal Rozian 10/25/17 Pain score: 3 Past Med/Surg/Social History Past Medical History Endocrine: REPORTS HX OF: Diabetes mellitus Genitourinary: REPORTS HX OF: Other history (Kidney stones ) Past Surgical History Musculoskeletal: REPORTS HX OF: Other musculoskeletal srg (Right foot 5th metatarsal I&D) Social History Smoking Status: Former Smoker Objective Vital Signs Vital Signs Date Time Temp Pulse Resp B/P (MAP) Pulse Ox O2 Delivery O2 Flow Rate FiO2 11/01/17 12:00 100.5 104 22 138/73 (94) 93 11/01/17 08:00 99.9 107 20 156/90 (112) 91 11/01/17 08:00 Nasal Cannula 2.00 11/01/17 04:00 100.0 102 20 120/69 (86) 95 11/01/17 00:00 Nasal Cannula 2.00 11/01/17 00:00 101.1 104 20 145/75 (98) 95 10/31/17 20:00 99.4 101 20 116/67 (83) 93 10/31/17 20:00 Nasal Cannula 2.00 Coded Allergies: No Known Allergies (Unverified Adverse Reaction, Unknown, 09/15/17) Uncoded Allergies: turkish dressing (Allergy, Severe, Anaphylaxis, 10/07/17) Exam-Podiatry Remarks wound vac functioning properly right foot Assessment & Plan A/P Right foot /ankle infection, s/p I&D R foot/ankle with 5th metatarsal and toe resection Dede 10/08/17 s/p I&D with wound vac right foot/ankle Popelka 10/15/17 s/p I&D right foot/ankle with bone biopsy right 4th metatarsal Patient wishes to continue with wound vac and limb salvage efforts with IV antibiotics to treat osteomyelitis in lieu of further amputation Continue nonweightbearing right foot Continue wound vac as ordered Follow up in outpatient clinic upon d/c with Dr Aguayo regarding right foot. Heidi Handy DPM Nov 01, 2017 16:36
[2017-11-01] MEDS: SODIUM CHLORIDE 0.9% IV SCH (16:58)
[2017-11-01] MEDS: DAPTOMYCIN IV SCH (16:58)
[2017-11-01 20:00] VITALS: BP 127/80; PULSE 98; RESP 20; TEMP 98; O2SAT 98
[2017-11-01] MEDS: INSULIN DETEMIR 100 UNITS/ML VIAL SQ SCH (21:54)
[2017-11-02] VITALS: BP 135/87; PULSE 108; RESP 19; TEMP 99.1; O2SAT 98
[2017-11-02] MEDS: MORPHINE SULFATE 2 MG/ML SYRINGE IV PUSH PRN ×6 (00:12→22:00)
[2017-11-02] MEDS: oxyCODONE/ACETAMINOPHEN 10 MG/325 MG TAB PO PRN ×6 (01:52→23:59)
[2017-11-02] MEDS: HEPARIN SODIUM - SQ 10,000 UNITS/ML VIAL SQ SCH ×2 (01:54→15:14)
[2017-11-02 04:00] VITALS: BP 128/83; PULSE 100; RESP 21; TEMP 99; O2SAT 97
[2017-11-02 08:00] VITALS: BP 132/76; PULSE 101; RESP 20; TEMP 101.5; O2SAT 95
[2017-11-02] MEDS: INSULIN ASPART SUPPLEMENTAL SCALE SQ SCH ×4 (08:31→20:33)
[2017-11-02] MEDS: INSULIN ASPART 1,000 UNITS/10 ML VIAL SQ SCH ×3 (08:31→17:33)
[2017-11-02] MEDS: GABAPENTIN 300 MG CAP PO SCH ×3 (08:32→17:32)
[2017-11-02] MEDS: LACTOBACILLUS ACIDOPHILUS TAB PO SCH ×2 (08:32→20:31)
[2017-11-02] MEDS: SODIUM CHLORIDE 0.9% FLUSH 10 ML FLUSH IV FLUSH SCH ×2 (08:33→20:32)
[2017-11-02] MEDS: COLLAGENASE OINT 30 GM TUBE TOPICAL SCH (08:33)
--- NOTE | 2017-11-02 11:52 | HHI.PR ---
Subjective Remarks Follow-up for osteomyelitis and left knee effusion Patient upset because he stated that he has been pushing his call button and has not seen the nurse for the past 20 minutes. He is asking for his Percocet. He also stated that he needs the skin on his foot taken off. Patient also asked me to move some items in his room during the conversation. Continues to have fever but no other complaints. Objective Vitals Vital Signs Date Time Temp Pulse Resp B/P (MAP) Pulse Ox O2 Delivery O2 Flow Rate FiO2 11/02/17 08:00 Nasal Cannula 2.00 11/02/17 08:00 101.5 101 20 132/76 (94) 95 11/02/17 05:14 17 11/02/17 04:00 99.0 100 21 128/83 (98) 97 11/02/17 00:00 99.1 108 19 135/87 (103) 98 11/01/17 22:00 Nasal Cannula 2.00 11/01/17 20:00 98.0 98 20 127/80 (96) 98 11/01/17 16:00 101.5 106 20 133/76 (95) 92 11/01/17 12:00 100.5 104 22 138/73 (94) 93 I/O 11/01/17 11/01/17 11/01/17 11/02/17 11/02/17 11/02/17 07:00 15:00 23:00 07:00 15:00 23:00 Intake Total 240 ml 620 ml 750 ml Output Total 275 ml 550 ml 500 ml 850 ml Balance -35 ml 70 ml -500 ml -100 ml Intake Oral 240 ml 620 ml 750 ml Output Urine Total 275 ml 550 ml 500 ml 850 ml # Bowel Movements 1 Result Diagram: 10/31/17 1123 10/31/17 1123 Objective Remarks GENERAL: in NAD SKIN: Sacral gluteal area with macular pink rash. CARDIOVASCULAR: Regular rate and rhythm without murmurs, gallops, or rubs. RESPIRATORY: Breath sounds equal bilaterally. No accessory muscle use. GASTROINTESTINAL: Abdomen soft, non-tender, nondistended. MUSCULOSKELETAL: Right knee with swelling. No erythema or warmth. Right foot wrapped in bandages wound VAC in place. Procedures 10/08/17 Right foot and ankle incision drainage, 5th metatarsal resection, 5th digit amputation 10/25/17 Incision and drainage Right foot/ankle abscess with bone biopsy right 4th metatarsal base; wound vac placement Medications and IVs Current Medications Piperacillin Sod/ Tazobactam Sod 100 ml @ 200 mls/hr ONCE STAT IV Last administered on 10/07/17at 15:56; Start 10/07/17 at 14:48; Stop 10/07/17 at 15:17 ; Status DC Vancomycin HCl 1000 mg/Sodium Chloride 250 ml @ 250 mls/hr ONCE STAT IV Last administered on 10/07/17at 16:32; Start 10/07/17 at 14:48; Stop 10/07/17 at 15:47 ; Status DC Sodium Chloride 1,000 ml @ 999 mls/hr BOLUS ONCE IV Last administered on 10/07at 15:57; Start 10/07/17 at 15:00; Stop 10/07/17 at 16:00; Status DC Oxycodone/ Acetaminophen (Percocet 5-325 Mg) 1 tab ONCE ONCE PO Last administered on 10/07/17at 16:31; Start 10/07/17 at 16:30; Stop 10/07/17 at 16:31 ; Status DC Sodium Chloride (NS Flush) 2 ml UNSCH PRN IV FLUSH FLUSH AFTER USING IV ACCESS Last administered on 10/21/17at 23:13; Start 10/07/17 at 16:45 Sodium Chloride (NS Flush) 2 ml BID IV FLUSH Last administered on 11/02/17at 08: 33; Start 10/07/17 at 21:00 Naloxone HCl (Narcan Inj) 0.4 mg UNSCH PRN IV PUSH SEE LABEL COMMENTS; Start at 16:45 Pharmacy Profile Note 0 ml @ 0 mls/hr UNSCH OTHER ; Start 10/07/17 at 17:00; Stop 10/11/17 at 13:39; Status DC Piperacillin Sod/ Tazobactam Sod 100 ml @ 200 mls/hr Q6H IV Last administered on 10/09/17at 09:27; Start 10/07/17 at 22:00; Stop 10/09/17 at 15:14; Status DC Sodium Chloride 500 ml @ 500 mls/hr BOLUS ONCE IV Last administered on at 18:50; Start 10/07/17 at 17:30; Stop 10/07/17 at 18:29; Status DC Tramadol HCl (Ultram) 50 mg Q12H PRN PO PAIN SCALE 5 TO 10 Last administered on 10/09/17at 09:27; Start 10/07/17 at 17:30; Stop 10/09/17 at 10:48; Status DC Vancomycin HCl 1250 mg/Sodium Chloride 262.5 ml @ 250 mls/hr Q24H IV Last administered on 10/10/17at 12:14; Start 10/08/17 at 11:00; Stop 10/10/17 at 14:01 ; Status DC Miscellaneous Information SPECIFIC LAB TO BE LUCERO... ONCE ONCE .XX Last administered on 10/10/17at 12:14; Start 10/10/17 at 10:45; Stop 10/10/17 at 10:46 ; Status DC Insulin Aspart (NovoLOG SUPPLEMENTAL SCALE) 1 ACHS SLIDING SCALE SQ Last administered on 10/08/17at 10:19; Start 10/07/17 at 21:00; Stop 10/08/17 at 10:27 ; Status DC Dextrose (D50w (Vial) Inj) 50 ml UNSCH PRN IV PUSH HYPOGLYCEMIA - SEE COMMENTS ; Start 10/07/17 at 19:15; Stop 10/08/17 at 10:27; Status DC Glucagon (Glucagon Inj) 1 mg UNSCH PRN OTHER HYPOGLYCEMIA-SEE COMMENTS; Start 10/07/17 at 19:15; Stop 10/08/17 at 10:27; Status DC Heparin Sodium (Porcine) (Heparin Inj) 5,000 units Q8HR SQ Last administered on 10/24/17at 21:32; Start 10/08/17 at 06:00; Stop 10/25/17 at 12:15; Status DC Acetaminophen/ Hydrocodone Bitart ([place] 5-325 Mg) 1 tab ONCE ONCE PO Last administered on 10/08/17at 01:21; Start 10/07/17 at 23:45; Stop 10/07/17 at 23:46 ; Status DC Gadodiamide (Omniscan Pf Inj) 14 ml STK-MED ONCE IVCONTRAST Last administered on 10/08/17at 09:53; Start 10/08/17 at 09:51; Stop 10/08/17 at 09:52; Status DC Dextrose (D50w (Vial) Inj) 50 ml UNSCH PRN IV PUSH HYPOGLYCEMIA-SEE COMMENTS; Start 10/08/17 at 10:30 Glucagon (Glucagon Inj) 1 mg UNSCH PRN OTHER HYPOGLYCEMIA-SEE COMMENTS; Start 10/08/17 at 10:30 Insulin Aspart (NovoLOG SUPPLEMENTAL SCALE) 1 ACHS SLIDING SCALE SQ Last administered on 11/01/17at 21:55; Start 10/08/17 at 12:00 Lactobacillus Acidophilus (Lactinex) 1 tab Q12HR PO Last administered on at 08:32; Start 10/08/17 at 21:00 Sodium Chloride 1,000 ml @ 84 mls/hr [id number] IV Last administered on at 21:04; Start 10/08/17 at 11:00; Stop 10/10/17 at 07:31; Status DC Bupivacaine HCl (Marcaine Pf 0.25% Inj) 30 ml STK-MED ONCE .ROUTE Last administered on 10/08/17at 16:28; Start 10/08/17 at 12:51; Stop 10/08/17 at 12:52 ; Status DC Morphine Sulfate (*morphine INJ PERIprocedure ONLY) 10 mg STK-MED ONCE .ROUTE Last administered on 10/08/17at 17:35; Start 10/08/17 at 17:35; Stop 10/08/17 at 17:36; Status DC Midazolam HCl (Versed Inj) 2 mg STK-MED ONCE .ROUTE ; Start 10/08/17 at 17:36; Stop 10/08/17 at 17:37; Status DC Fentanyl Citrate (fentaNYL INJ) 100 mcg STK-MED ONCE .ROUTE ; Start 10/08/17 at 17:36; Stop 10/08/17 at 17:37; Status DC Morphine Sulfate (Morphine Inj) 4 mg STK-MED ONCE .ROUTE ; Start 10/08/17 at 17: 36; Stop 10/08/17 at 17:37; Status DC Miscellaneous Information ALL NURSING DEPARTME... UNSCH PRN .XX SEE LABEL COMMENTS; Start 10/08/17 at 17:25; Stop 10/09/17 at 17:24; Status DC Acetaminophen (Tylenol) 650 mg Q4H PRN PO fever > 101, ZIMMERMAN; Start 10/09/17 at 01 :15; Stop 10/13/17 at 12:38; Status DC Insulin Detemir (Levemir Inj) 10 units BID SQ Last administered on 10/09/17at 21 :03; Start 10/09/17 at 11:00; Stop 10/10/17 at 07:31; Status DC Acetaminophen/ Hydrocodone Bitart ([place] 5-325 Mg) 1 tab Q4H PRN PO pain2-10 Last administered on 10/13/17at 05:47; Start 10/09/17 at 10:15; Stop 10/13/17 at 12:38; Status DC Rocuronium [place]olt (Zemuron Inj) 50 mg STK-MED ONCE IV PUSH ; Start 10/08/17 at 12:00; Stop 10/09/17 at 14:48; Status DC Phenylephrine HCl (Neosynephrine/ NS 1000 Mcg/10ml Syr) 1,000 mcg STK-MED ONCE IV ; Start 10/08/17 at 12:00; Stop 10/09/17 at 14:48; Status DC Propofol (Diprivan 200 Mg/20 ml Inj) 200 mg STK-MED ONCE IV ; Start 10/08/17 at 12:00; Stop 10/09/17 at 14:48; Status DC Ceftriaxone Sodium 2000 mg/ Sodium Chloride 100 ml @ 200 mls/hr Q24H IV Last administered on 10/10/17at 16:44; Start 10/09/17 at 17:00; Stop 10/11/17 at 13:39 ; Status DC Sodium Chloride 250 ml @ 15 mls/hr ONCE ONCE IV Last administered on at 09:45; Start 10/10/17 at 07:30; Stop 10/11/17 at 00:09; Status DC Acetaminophen (Tylenol) 650 mg Q4H PRN PO SEE LABEL COMMENTS Last administered on 10/10/17at 16:45; Start 10/10/17 at 07:30; Stop 10/10/17 at 23:59; Status DC Diphenhydramine HCl (Benadryl) 25 mg Q4H PRN PO SEE LABEL COMMENTS Last administered on 10/10/17at 16:44; Start 10/10/17 at 07:30; Stop 10/10/17 at 23:59 ; Status DC Insulin Detemir (Levemir Inj) 15 units BID SQ Last administered on 10/11/17at 08 :09; Start 10/10/17 at 09:00; Stop 10/11/17 at 20:22; Status DC Sodium Chloride 1,000 ml @ 84 mls/hr [id number] IV Last administered on 10/16/17at 08:56; Start 10/10/17 at 11:00; Stop 10/16/17 at 19:02; Status DC Bupivacaine HCl (Marcaine Pf 0.25% Inj) 30 ml STK-MED ONCE .ROUTE ; Start at 12:08; Stop 10/10/17 at 12:09; Status DC Neomycin/Polymyxin (Neosporin G.u. Irr) 2 ml STK-MED ONCE .ROUTE ; Start at 12:13; Stop 10/10/17 at 12:14; Status DC Vancomycin HCl 1250 mg/Sodium Chloride 262.5 ml @ 250 mls/hr Q18H IV Last administered on 10/11/17at 05:14; Start 10/11/17 at 06:00; Stop 10/11/17 at 13:39 ; Status DC Miscellaneous Information SPECIFIC LAB TO BE LUCERO... ONCE ONCE .XX ; Start 10/12 at 17:45; Stop 10/12/17 at 17:45; Status DC Fentanyl Citrate (fentaNYL INJ) 100 mcg STK-MED ONCE .ROUTE ; Start 10/10/17 at 14:39; Stop 10/10/17 at 14:40; Status DC Midazolam HCl (Versed Inj) 2 mg STK-MED ONCE .ROUTE ; Start 10/10/17 at 14:39; Stop 10/10/17 at 14:40; Status DC Miscellaneous Information ALL NURSING DEPARTME... UNSCH PRN .XX SEE LABEL COMMENTS; Start 10/10/17 at 14:30; Stop 10/11/17 at 14:29; Status DC Gadodiamide (Omniscan Pf Inj) 14 ml STK-MED ONCE IVCONTRAST Last administered on 10/11/17at 10:03; Start 10/11/17 at 10:03; Stop 10/11/17 at 10:04; Status DC Cefazolin Sodium/ Dextrose 50 ml @ 150 mls/hr Q8H IV Last administered on 10/13at 05:55; Start 10/11/17 at 14:00; Stop 10/13/17 at 13:26; Status DC Insulin Detemir (Levemir Inj) 20 units HS SQ Last administered on 10/11/17at 22: 54; Start 10/11/17 at 21:00; Stop 10/12/17 at 13:47; Status DC Insulin Aspart (NovoLOG INJ) 5 units TIDAC SQ Last administered on 10/31/17at 18 :14; Start 10/12/17 at 08:00 Gadodiamide (Omniscan Pf Inj) 18 ml STK-MED ONCE IVCONTRAST Last administered on 10/12/17at 08:53; Start 10/12/17 at 08:53; Stop 10/12/17 at 08:54; Status DC Insulin Detemir (Levemir Inj) 15 units HS SQ Last administered on 11/01/17at 21: 54; Start 10/12/17 at 21:00 Lidocaine HCl (Xylocaine-Mpf 1% Inj) 5 ml STK-MED ONCE OTHER ; Start 10/10/17 at 12:00; Stop 10/13/17 at 09:31; Status DC Phenylephrine HCl (Neosynephrine/ NS 1000 Mcg/10ml Syr) 1,000 mcg STK-MED ONCE IV ; Start 10/10/17 at 12:00; Stop 10/13/17 at 09:31; Status DC Ephedrine Sulfate (ePHEDrine/NS 25 MG/5 ML SYR) 25 mg STK-MED ONCE IV ; Start at 12:00; Stop 10/13/17 at 09:31; Status DC Dexamethasone Sodium Phosphate (Decadron Inj) 4 mg STK-MED ONCE IV ; Start 10/10 at 12:00; Stop 10/13/17 at 09:31; Status DC Ondansetron HCl (Zofran Inj) 4 mg STK-MED ONCE IV ; Start 10/10/17 at 12:00; Stop 10/13/17 at 09:31; Status DC Propofol (Diprivan 200 Mg/20 ml Inj) 200 mg STK-MED ONCE IV ; Start 10/10/17 at 12:00; Stop 10/13/17 at 09:31; Status DC Acetaminophen (Tylenol) 500 mg Q4H PRN PO Headache, fever, pain 1-4; Start at 13:15; Stop 10/13/17 at 13:15; Status DC Acetaminophen/ Hydrocodone Bitart ([place] 7.5-325 Mg) 1 tab Q6H PRN PO PAIN SCALE 5 TO 10 Last administered on 10/31/17 05:27; Start 10/13/17 at 12:45; Stop 10/31/17 at 11:02; Status DC Morphine Sulfate (Morphine Inj) 5 mg Q4H PRN IV PUSH BREAKTHROUGH PAIN Last administered on 10/31/17at 02:39; Start 10/13/17 at 12:45; Stop 10/31/17 at 11:02 ; Status DC Morphine Sulfate (Morphine Inj) 4 mg Q3H PRN IV PUSH Prior to dressing change Last administered on 10/31/17 15:15; Start 10/13/17 at 12:45 Temazepam (Restoril) 15 mg HS PRN PO INSOMNIA Last administered on 10/28/17 21 :54; Start 10/13/17 at 12:45 Acetaminophen (Tylenol) 500 mg Q4H PRN PO Headache, fever Last administered on 10/31/17 11:48; Start 10/13/17 at 13:15 Ceftriaxone Sodium 2000 mg/ Sodium Chloride 100 ml @ 200 mls/hr Q24H IV Last administered on 11/01/17 14:34; Start 10/13/17 at 14:00; Stop 11/02/17 at 09:39 ; Status DC Iohexol (Omnipaque 350 Inj) 100 ml STK-MED ONCE IVCONTRAST Last administered on 10/13/17at 22:47; Start 10/13/17 at 22:46; Stop 10/13/17 at 22:47; Status DC Levofloxacin (Levaquin) 500 mg DAILY PO Last administered on 10/28/17 08:53; Start 10/14/17 at 17:00; Stop 10/28/17 at 11:12; Status DC Linezolid 300 ml @ 300 mls/hr Q12H IV Last administered on 10/23/17 04:38; Start 10/14/17 at 17:00; Stop 10/23/17 at 13:56; Status DC Potassium Chloride (KCl) 20 meq ONCE ONCE PO Last administered on 10/14/17at 18 :52; Start 10/14/17 at 18:30; Stop 10/14/17 at 18:31; Status DC Potassium Chloride (KCl) 20 meq Q12HR PO Last administered on 10/17/17at 08:40; Start 10/14/17 at 21:00; Stop 10/17/17 at 20:59; Status DC Lactated Ringer's 1,000 ml @ 30 mls/hr Q24H PRN IV SEE LABEL COMMENTS; Start at 04:45; Stop 10/15/17 at 22:50; Status DC Sodium Chloride 500 ml @ 30 mls/hr [id number] PRN IV SEE LABEL COMMENTS; Start at 04:45; Stop 10/15/17 at 22:50; Status DC Povidone Iodine (Betadine 5% Antisepsis Kit) 1 applic TER[employer] PRN EACH NARE SEE LABEL COMMENTS; Start 10/15/17 at 04:45; Stop 10/15/17 at 22:50; Status DC Chlorhexidine Gluconate (Chlorhexidine 2% Cloth) 3 pack TER[employer] PRN TOPICAL SEE LABEL COMMENTS; Start 10/15/17 at 04:45; Stop 10/18/17 at 04:44; Status DC Lidocaine HCl (Xylocaine 2% Inj) 50 ml STK-MED ONCE .ROUTE ; Start 10/15/17 at 19:57; Stop 10/15/17 at 19:58; Status DC Bupivacaine HCl (Marcaine Pf 0.5% Inj) 30 ml STK-MED ONCE .ROUTE Last administered on 10/15/17at 20:36; Start 10/15/17 at 19:57; Stop 10/15/17 at 19:58 ; Status DC Vancomycin HCl (Vancomycin Inj) 500 mg STK-MED ONCE .ROUTE Last administered on 10/15/17at 21:07; Start 10/15/17 at 21:07; Stop 10/15/17 at 21:08; Status DC Fentanyl Citrate (fentaNYL INJ) 100 mcg STK-MED ONCE .ROUTE ; Start 10/15/17 at 22:18; Stop 10/15/17 at 22:19; Status DC Miscellaneous Information (Post-op Orders (for Pharmacy)) STAT ONCE XX ; Start 10/15/17 at 22:30; Stop 10/15/17 at 22:49; Status DC Miscellaneous Information ALL NURSING DEPARTME... UNSCH PRN .XX SEE LABEL COMMENTS; Start 10/15/17 at 22:15; Stop 10/16/17 at 22:14; Status DC Morphine Sulfate (Morphine Inj) 5 mg ONCE ONCE IV PUSH Last administered on 10/16/17at 15:14; Start 10/16/17 at 15:00; Stop 10/16/17 at 15:01; Status DC Diatrizoate Meglum/ Diatrizoate Sod (Md Kang Thakkar) 18 ml ONCE ONCE PO Last administered on 10/16/17at 17:18; Start 10/16/17 at 15:45; Stop 10/16/17 at 15: 46; Status DC Lactated Ringer's 1,000 ml @ 50 mls/hr Q20H IV Last administered on 10/23/17at 13:05; Start 10/16/17 at 19:15; Stop 10/23/17 at 13:51; Status DC Iohexol (Omnipaque 350 Inj) 90 ml STK-MED ONCE IVCONTRAST Last administered on 10/16/17at 20:25; Start 10/16/17 at 20:22; Stop 10/16/17 at 20:23; Status DC Lidocaine HCl (Xylocaine-Mpf 1% Inj) 5 ml STK-MED ONCE OTHER ; Start 10/15/17 at 12:00; Stop 10/17/17 at 12:19; Status DC Propofol (Diprivan 200 Mg/20 ml Inj) 200 mg STK-MED ONCE IV ; Start 10/15/17 at 12:00; Stop 10/17/17 at 12:19; Status DC Lidocaine HCl (Xylocaine 1% Inj) 9 ml STK-MED ONCE SQ Last administered on at 14:59; Start 10/20/17 at 14:59; Stop 10/20/17 at 15:00; Status DC Collagenase (Santyl Oint) 1 applic DAILY TOPICAL Last administered on at 08:33; Start 10/22/17 at 12:00 Gabapentin (Neurontin) 600 mg TID PO Last administered on 11/02/17at 08:32; Start 10/23/17 at 18:00 Furosemide (Lasix Inj) 20 mg ONCE ONCE IV PUSH Last administered on 10/23/17at 14:09; Start 10/23/17 at 14:00; Stop 10/23/17 at 14:01; Status DC Linezolid (Zyvox) 600 mg Q12HR PO Last administered on 10/28/17at 08:53; Start 10/23/17 at 21:00; Stop 10/28/17 at 11:12; Status DC Gadodiamide (Omniscan Pf Inj) 14 ml STK-MED ONCE IVCONTRAST Last administered on 10/24/17at 10:48; Start 10/24/17 at 10:48; Stop 10/24/17 at 10:49; Status DC Bupivacaine HCl (Marcaine Pf 0.5% Inj) 30 ml STK-MED ONCE .ROUTE ; Start at 07:26; Stop 10/25/17 at 07:27; Status DC Acetaminophen 100 ml @ As Directed STK-MED ONCE IV ; Start 10/25/17 at 07:33; Stop 10/25/17 at 07:34; Status DC Midazolam HCl (Versed Inj) 2 mg STK-MED ONCE .ROUTE ; Start 10/25/17 at 09:32; Stop 10/25/17 at 09:33; Status DC Fentanyl Citrate (fentaNYL INJ) 100 mcg STK-MED ONCE .ROUTE ; Start 10/25/17 at 09:33; Stop 10/25/17 at 09:34; Status DC Miscellaneous Information ALL NURSING DEPARTME... UNSCH PRN .XX SEE LABEL COMMENTS; Start 10/25/17 at 12:30; Stop 10/26/17 at 12:29; Status DC Sodium Chloride 1,000 ml @ 50 mls/hr Q20H IV Last administered on 10/30/17at 20 :44; Start 10/27/17 at 13:30; Stop 10/31/17 at 10:59; Status DC Lidocaine HCl (Xylocaine-Mpf 1% Inj) 5 ml STK-MED ONCE OTHER ; Start 10/25/17 at 12:00; Stop 10/28/17 at 09:30; Status DC Phenylephrine HCl (Neosynephrine/ NS 1000 Mcg/10ml Syr) 1,000 mcg STK-MED ONCE IV ; Start 10/25/17 at 12:00; Stop 10/28/17 at 09:30; Status DC Dexamethasone Sodium Phosphate (Decadron Inj) 4 mg STK-MED ONCE IV ; Start 10/25 at 12:00; Stop 10/28/17 at 09:30; Status DC Ondansetron HCl (Zofran Inj) 4 mg STK-MED ONCE IV ; Start 10/25/17 at 12:00; Stop 10/28/17 at 09:30; Status DC Propofol (Diprivan 200 Mg/20 ml Inj) 200 mg STK-MED ONCE IV ; Start 10/25/17 at 12:00; Stop 10/28/17 at 09:30; Status DC Heparin Sodium (Porcine) (Heparin Inj) 5,000 units Q12H SQ Last administered on 11/02/17at 01:54; Start 10/28/17 at 15:00 Morphine Sulfate (Morphine Inj) 2 mg Q4H PRN IV PUSH BREAKTHROUGH PAIN Last administered on 11/02/17at 08:32; Start 10/31/17 at 12:45 Oxycodone/ Acetaminophen (Percocet 5-325 Mg) 1 tab Q4H PRN PO pain 1-7; Start 10/31/17 at 12:15 Oxycodone/ Acetaminophen (Percocet 10-325 Mg) 1 tab Q4H PRN PO pain 8-10 Last administered on 11/02/17at 11:14; Start 10/31/17 at 12:15 Daptomycin 640 mg/ Sodium Chloride 100 ml @ 200 mls/hr Q24H IV Last administered on 11/01/17at 16:58; Start 10/31/17 at 16:00 A/P Problem List: (1) Osteomyelitis of foot ICD Code: M86.9 - Osteomyelitis, unspecified (2) Leukocytosis ICD Code: D72.829 - Elevated white blood cell count, unspecified (3) Dehydration with hyponatremia ICD Code: E87.1 - Hypo-osmolality and hyponatremia (4) Acute kidney injury ICD Code: N17.9 - Acute kidney failure, unspecified (5) Sepsis ICD Code: A41.9 - Sepsis, unspecified organism Status: Acute (6) Diabetic foot ulcer ICD Code: E11.621 - Type 2 diabetes mellitus with foot ulcer; L97.509 - Non- pressure chronic ulcer of other part of unspecified foot with unspecified severity Status: Acute (7) Acute renal failure superimposed on stage 3 chronic kidney disease ICD Code: N17.9 - Acute kidney failure, unspecified; N18.3 - Chronic kidney disease, stage 3 (moderate) (8) Bacteremia due to Gram-positive bacteria ICD Code: R78.81 - Bacteremia (9) Postoperative anemia ICD Code: D64.9 - Anemia, unspecified Assessment and Plan This is a 57-year-old male who presented with sepsis Sepsis, resolved. - Secondary to diabetic foot infection, bacteremia, right foot osteomyelitis: Appreciate infectious disease recommendations. He does have a right knee pleural effusion with no growth. -He continues to have fever but most likely drug fever. Right foot osteomyelitis: Appreciate podiatry recommendations. -Status post incision and drainage, fifth metatarsal resection, fifth digit amputation on 10/08/17. Podiatry is recommending IV antibiotics on discharge. Final antibiotic recommendations per infectious disease. Continue wound care. S/P irrigation/debridement with wound vac placement 10/25/17. -need to wean off IV pain medication. on Percocet. -Patient is still on Rocephin. Per infectious disease discontinue Rocephin will DC Rocephin. Levaquin and Zyvox DC'd 10/28/2017. Wound culture growing staph and strep not A/B/D. New cultures obtained in surgery are growing staph aureus. -Patient on daptomycin. Continue with daptomycin. Management per infectious disease. Right knee effusion: -Continues to have right knee effusion but stable. Continue antibiotics. Appreciate orthopedic surgery recommendations. So far cultures are negative. Patient refusing I&D at the moment. Bilateral pleural effusion: -Appreciate pulmonology recommendations. Status post right-sided thoracentesis. Cytology is negative for malignant cells. Peripheral vascular disease: -Appreciate vascular surgery recommendations. Per vascular surgery, no surgical intervention is planned. Postoperative anemia: -Received transfusion of 2 units PRBCs. Monitor H&H. Diabetes mellitus type 2: -Continue Levemir. Monitor Accu-Cheks and cover with sliding scale insulin. Continue preprandial insulin as well. Acute kidney injury superimposed on chronic kidney disease stage III -Creatinine continues to improve. Continue with light hydration with IV fluids. Stage one pressure ulcer. -Patient needs turning every 2 hours. PT working with patient. Hypokalemia -Replenish as needed. DVT prophylaxis: Heparin. Problem Qualifiers (1) Sepsis: Qualified Codes: A41.9 - Sepsis, unspecified organism (2) Diabetic foot ulcer: Qualified Codes: E10.621 - Type 1 diabetes mellitus with foot ulcer; L97.419 - Non-pressure chronic ulcer of right heel and midfoot with unspecified severity Petty Ospina MD Nov 02, 2017 11:52
[2017-11-02 12:00] VITALS: BP 139/83; PULSE 105; RESP 20; TEMP 100.2; O2SAT 97
--- NOTE | 2017-11-02 15:09 | HHI.IDPN ---
Note Infectious Disease Note ID COVERAGE Mr. Braxton is a 57-year-old male with past medical history significant for diabetes type 2, prior diabetic foot ulcer treated in October 2016 thereafter was hospitalized from May 08, 2017 to May 29, 2017 due to foot ulcer. During that hospitalization patient underwent surgical debridement with wound VAC placement. Patient reports that he was seen by Dr. Pritchard during that admission. Patient reports that he was discharged on IV ceftriaxone using a PICC line. Patient had home health care visits him and continue to receive wound VAC changes at home. He also was subsequently seen at wound care clinic for ongoing wound care as well as [facility] for his primary care needs. Patient reports that his medications were recently adjusted and a new insulin was introduced. Patient reports that he was diagnosed with a possible staph or strep infection and has been on oral Bactrim approximately 2 weeks prior to admission. Due to worsening foot infection as well as possible reaction to the new insulin patient presented to the emergency department [facility]. Patient reports that he was having fevers, chills, loss of appetite and diarrhea for the past 2 days associated with frequent urination. Patient denies any dysuria. He reports dizziness and reported history of falls 3 days ago while on the toilet. Patient's reports that she was unaware of this history of fall. He denies any head injury. Patient reports hitting his right foot and shoulder but that he was able to get off the floor by himself. Patient had a sepsis workup initiated on admission. Wound cultures are positive for strep as well as blood cultures are now positive for gram-positive likely strep. Repeat blood cultures have been ordered. Podiatry is seeing the patient and there is a plan for surgical intervention and possible amputation of the involved digit. Infectious disease is consulted for evaluation and management of right fifth toe osteomyelitis with associated cellulitis, gram-positive bacteremia and sepsis. S/p amputation 5th toe and 5thMT foot and blood clx + MSSA and strep + osteo extending to margins Patient still having fevers. He is sitting upright in bed. Says that he feels okay. Denies cough or shortness of breath. C/S OR Staph aureus ECHO no veg's. Antibiotics Daptomycin. Current Medications Medications (Trade) Dose Ordered Sig/Anna Route PRN Reason Start Time Stop Time Status Last Admin Dose Admin Sodium Chloride (NS Flush) 2 ml UNSCH PRN IV FLUSH FLUSH AFTER USING IV ACCESS 10/07/17 16:45 10/21/17 23:13 Sodium Chloride (NS Flush) 2 ml BID IV FLUSH 10/07/17 21:00 11/02/17 08:33 Naloxone HCl (Narcan Inj) 0.4 mg UNSCH PRN IV PUSH SEE LABEL COMMENTS 10/07/17 16:45 Dextrose (D50w (Vial) Inj) 50 ml UNSCH PRN IV PUSH HYPOGLYCEMIA-SEE COMMENTS 10/08/17 10:30 Glucagon (Glucagon Inj) 1 mg UNSCH PRN OTHER HYPOGLYCEMIA-SEE COMMENTS 10/08/17 10:30 Insulin Aspart (NovoLOG SUPPLEMENTAL SCALE) 1 ACHS SLIDING SCALE SQ 10/08/17 12:00 11/01/17 21:55 Lactobacillus Acidophilus (Lactinex) 1 tab Q12HR PO 10/08/17 21:00 11/02/17 08:32 Insulin Aspart (NovoLOG INJ) 5 units TIDAC SQ 10/12/17 08:00 11/02/17 13:12 Insulin Detemir (Levemir Inj) 15 units HS SQ 10/12/17 21:00 11/01/17 21:54 Morphine Sulfate (Morphine Inj) 4 mg Q3H PRN IV PUSH Prior to dressing change 10/13/17 12:45 10/31/17 15:15 Temazepam (Restoril) 15 mg HS PRN PO INSOMNIA 10/13/17 12:45 10/28/17 21:54 Acetaminophen (Tylenol) 500 mg Q4H PRN PO Headache, fever 10/13/17 13:15 10/31/17 11:48 Collagenase (Santyl Oint) 1 applic DAILY TOPICAL 10/22/17 12:00 11/02/17 08:33 Gabapentin (Neurontin) 600 mg TID PO 10/23/17 18:00 11/02/17 13:12 Heparin Sodium (Porcine) (Heparin Inj) 5,000 units Q12H SQ 10/28/17 15:00 11/02/17 01:54 Morphine Sulfate (Morphine Inj) 2 mg Q4H PRN IV PUSH BREAKTHROUGH PAIN 10/31/17 12:45 11/02/17 13:13 Oxycodone/ Acetaminophen (Percocet 5-325 Mg) 1 tab Q4H PRN PO pain 1-7 10/31/17 12:15 Oxycodone/ Acetaminophen (Percocet 10-325 Mg) 1 tab Q4H PRN PO pain 8-10 10/31/17 12:15 11/02/17 11:14 Daptomycin 640 mg/ Sodium Chloride 100 ml @ 200 mls/hr Q24H IV 10/31/17 16:00 11/01/17 16:58 Lines Line sites with no e.o infection Past Medical History DM II Right foot ulcer with possible osteomyelitis in the past. Has received IV antibiotics long-term using a PICC line in the past. Renal stones Past Surgical History Right foot debridement of wound removal of kidney stones Tonsillitis Allergies: Coded Allergies: No Known Allergies (Unverified Adverse Reaction, Unknown, 09/15/17) Uncoded Allergies: german dressing (Allergy, Severe, Anaphylaxis, 10/07/17) Objective . Vital Signs Date Time Temp Pulse Resp B/P (MAP) Pulse Ox O2 Delivery O2 Flow Rate FiO2 11/02/17 12:00 100.2 105 20 139/83 (101) 97 11/02/17 08:00 Nasal Cannula 2.00 11/02/17 08:00 101.5 101 20 132/76 (94) 95 11/02/17 05:14 17 11/02/17 04:00 99.0 100 21 128/83 (98) 97 11/02/17 00:00 99.1 108 19 135/87 (103) 98 11/01/17 22:00 Nasal Cannula 2.00 11/01/17 20:00 98.0 98 20 127/80 (96) 98 11/01/17 16:00 101.5 106 20 133/76 (95) 92 Microbiology Date/Time Source Procedure Growth Status 10/31/17 14:46 Blood Peripheral Aerobic Blood Culture - Preliminary NO GROWTH IN 2 DAYS Resulted 10/31/17 14:46 Blood Peripheral Anaerobic Blood Culture - Preliminary NO GROWTH IN 2 DAYS Resulted 10/31/17 14:40 Blood Peripheral Aerobic Blood Culture - Preliminary NO GROWTH IN 2 DAYS Resulted 10/31/17 14:40 Blood Peripheral Anaerobic Blood Culture - Preliminary NO GROWTH IN 2 DAYS Resulted Vital Signs Date Time Temp Pulse Resp B/P (MAP) Pulse Ox O2 Delivery O2 Flow Rate FiO2 10/31/17 12:00 102.0 116 22 149/90 (109) 91 10/31/17 08:00 101.7 107 20 143/90 (107) 90 10/31/17 07:43 Nasal Cannula 2.00 10/31/17 04:00 100.4 103 18 139/84 (102) 96 10/31/17 04:00 Nasal Cannula 2.00 10/31/17 00:12 102.8 115 18 168/98 (121) 94 10/31/17 00:00 Nasal Cannula 2.00 10/30/17 20:41 98.8 98 17 120/84 (96) 98 10/30/17 20:00 Nasal Cannula 2.00 10/30/17 16:04 99.0 96 18 140/81 (100) 97 . Laboratory Tests Test 10/30/17 06:30 10/31/17 11:23 White Blood Count 5.2 TH/MM3 6.5 TH/MM3 Red Blood Count 2.55 MIL/MM3 2.84 MIL/MM3 Hemoglobin 7.1 GM/DL 7.9 GM/DL Hematocrit 20.9 % 23.5 % Mean Corpuscular Volume 82.0 FL 82.7 FL Mean Corpuscular Hemoglobin 27.8 PG 27.7 PG Mean Corpuscular Hemoglobin Concent 33.8 % 33.5 % Red Cell Distribution Width 14.6 % 14.8 % Platelet Count 202 TH/MM3 247 TH/MM3 Mean Platelet Volume 7.6 FL 7.2 FL Imaging Chest X-Ray 10/30/17 0000 Signed Impressions: Service Date/Time: October 13:55 - CONCLUSION: 1. Consolidation of the left lower lobe. This would be concerning for a pneumonia. 2. Focal area of infiltrate seen in the left perihilar region. Raghavendra Lim MD Foot X-Ray 10/23/17 0000 Signed Impressions: Service Date/Time: October 17:15 - CONCLUSION: 1. 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 Lupillo Webster MD Chest X-Ray 10/22/17 0000 Signed Impressions: Service Date/Time: Sunday, October 22, 2017 09:07 - CONCLUSION: 1. Bilateral infiltrates and effusion. The exam has worsen when compared to previous dated 10/20/17. Raghavendra Lim MD Thoracentesis Ultrasound 10/20/17 0600 Signed Impressions: Service Date/Time: Friday, October 20, 2017 13:03 - CONCLUSION: Uncomplicated ultrasound guided thoracentesis. Smooth aSucedo MD Chest Ultrasound 10/17/17 0000 Signed Impressions: Service Date/Time: Tuesday, October 17, 2017 20:24 - CONCLUSION: A moderate to large right pleural effusion is confirmed sonographically and marked for thoracentesis. Hector Pierre MD Chest CT 10/16/17 0000 Signed Impressions: Service Date/Time: October 20:14 - CONCLUSION: Moderate-sized bilateral pleural effusions with adjacent compressive atelectasis and/or pneumonia. Scattered increased interstitial infiltrates within the perihilar regions and upper lobes bilaterally raising the possibility of pulmonary vascular congestion. Cardiomegaly and coronary artery calcifications are noted. Mild pretracheal and AP window mediastinal lymphadenopathy which is nonspecific. Degenerative changes and mild scoliosis of the thoracic spine. Hector Pierre MD Aspiration 10/16/17 0000 Signed Impressions: Service Date/Time: October 15:48 - CONCLUSION: Uncomplicated aspiration as above. Chetan Escobedo MD Abdomen/Pelvis CT 10/16/17 0000 Signed Impressions: Service Date/Time: October 20:14 - CONCLUSION: 1. Moderate-sized bilateral pleural effusions with adjacent consolidations consistent with atelectasis and/or pneumonia. 2. Tiny calcified nonobstructing bilateral renal calculi. 3. Mild hepatosplenomegaly. 4. Uncomplicated colonic diverticulosis. 5. Minimal free fluid within the pelvis. 6. Streakiness and fluid within the bilateral retroperitoneum inferior to the kidneys and extending into the presacral region. 7. Degenerative changes and scoliosis of the thoracolumbar spine. Hector Pierre MD Knee X-Ray 10/15/17 0000 Signed Impressions: Service Date/Time: Sunday, October 15, 2017 15:26 - CONCLUSION: Large joint effusion otherwise negative. Tu Lim MD FACR Carotid Artery Ultrasound 10/13/17 0000 Signed Impressions: Service Date/Time: Friday, October 13, 2017 16:12 - CONCLUSION: No evidence of flow-limiting carotid stenosis. Wm Riley MD Aorta w/Runoff CTA 10/13/17 0000 Signed Impressions: Service Date/Time: Friday, October 13, 2017 22:41 - CONCLUSION: 1. No aortic occlusive disease. 2. No significant iliac inflow stenosis. 3. No significant outflow stenosis. 4. Diffuse bilateral runoff disease with heavily calcified tibial arteries and significant venous contamination precluding patency evaluation beyond the very proximal calf. 5. Small to moderate bilateral pleural effusions with associated airspace disease at the lung bases, presumably atelectasis. 6. Trace free fluid in the deep pelvis. 7. Ancillary findings include hepatic steatosis, nonobstructing punctate calyceal calculus in the inferior pole of the left kidney and small suprapatellar right joint effusion. Lupillo Webster MD Foot MRI 10/12/17 0000 Signed Impressions: Service Date/Time: Thursday, October 12, 2017 08:31 - CONCLUSION: 1. No areas of suspected osteomyelitis. 2. Superficial soft tissue swelling over the third and fourth metatarsals. There is also some edema within the plantar musculature. Wm Dupree MD Ankle MRI 10/11/17 0000 Signed Impressions: Service Date/Time: Wednesday, October 11, 2017 09:41 - CONCLUSION: 1. No definite areas of osteomyelitis. There is some edema within the lateral cuboid adjacent to the suspected surgical defect which is likely reactive. T1 signal is maintained. 2. Multiple areas of focal edema within the midfoot mainly related to the subarticular regions likely related to underlying arthritic change. 3. The patient appears to be status post resection of the fifth metatarsal with post surgical change at the lateral hind and midfoot and a small focus of air seen adjacent to the calcaneus. Wm Dupree MD Physical Exam GENERAL: Alert and oriented, no acute distress. HEENT: Pupils reactive to light. Extraocular movements intact. No icterus. Oropharyngeal mucosa moist. NECK: Supple without adenopathy. No swelling. LUNGS: Rhonchi at the left base. HEART: Regular S1 and S2 without murmurs rubs or gallops. ABDOMEN: Bowel sounds present, soft, nontender. EXTREMITIES: Right knee swelling. Nontender. No clubbing cyanosis or edema. Right foot has dressing in place and the wound VAC. Serous drainage in the catheter. SKIN: No rash NEUROLOGIC: Nonfocal PSYCH: Calm and cooperative Assessment & Plan Sepsis present on admission Strep bacteremia secondary to right foot osteomyelitis and cellulitis Staph MSSA bacteremia high grade. Strep not AB,D and Staph infection Right foot fifth MPJ osteomyelitis Right foot cellulitis Pneumonia with bilateral pleural effusions ? HCAP vs septic emboli. Right knee septic arthritis. Diabetes type 2 uncontrolled Acute renal failure: Sepsis, prerenal: improving Fevers, up again - No localizing features - ?drug fever - ? Questionable lung infection Recommendations: Follow BC today Continue Cubicin for possible drug fever Add Levaquin for pulmonary coverage. Monitor temps Follow cultures Monitor progress Akil Babcock MD Nov 02, 2017 15:09
[2017-11-02] MEDS: DAPTOMYCIN IV SCH (15:13)
[2017-11-02] MEDS: SODIUM CHLORIDE 0.9% IV SCH (15:13)
[2017-11-02 16:00] VITALS: BP 135/67; PULSE 105; RESP 20; TEMP 99.6; O2SAT 95
[2017-11-02] MEDS: LEVOFLOXACIN 750 MG TAB PO SCH (17:32)
[2017-11-02 20:00] VITALS: BP 152/92; PULSE 116; RESP 21; TEMP 101.1; O2SAT 92
[2017-11-02] MEDS: ACETAMINOPHEN 500 MG CPLT PO PRN (20:31)
[2017-11-02] MEDS: INSULIN DETEMIR 100 UNITS/ML VIAL SQ SCH (20:32)
[2017-11-03] VITALS (7 sets, daily range): BP systolic 110–144; BP diastolic 67–86; PULSE 99–112; RESP 16–20; TEMP 98.2–101.2; O2SAT 94–100
[2017-11-03] MEDS: MORPHINE SULFATE 2 MG/ML SYRINGE IV PUSH PRN ×2 (02:23→13:21)
[2017-11-03] MEDS: HEPARIN SODIUM - SQ 10,000 UNITS/ML VIAL SQ SCH ×2 (02:25→16:47)
[2017-11-03] MEDS: oxyCODONE/ACETAMINOPHEN 10 MG/325 MG TAB PO PRN ×4 (05:26→21:59)
[2017-11-03] MEDS: MORPHINE SULFATE 4 MG/ML INJ IV PUSH PRN ×2 (05:46→20:50)
[2017-11-03] MEDS: INSULIN ASPART SUPPLEMENTAL SCALE SQ SCH ×4 (08:00→21:00)
[2017-11-03] MEDS: LEVOFLOXACIN 750 MG TAB PO SCH (09:04)
[2017-11-03] MEDS: LACTOBACILLUS ACIDOPHILUS TAB PO SCH ×2 (09:04→20:50)
[2017-11-03] MEDS: GABAPENTIN 300 MG CAP PO SCH ×3 (09:04→17:08)
[2017-11-03] MEDS: SODIUM CHLORIDE 0.9% FLUSH 10 ML FLUSH IV FLUSH SCH ×2 (09:06→20:51)
[2017-11-03] MEDS: INSULIN ASPART 1,000 UNITS/10 ML VIAL SQ SCH ×3 (09:07→17:08)
[2017-11-03] MEDS: COLLAGENASE OINT 30 GM TUBE TOPICAL SCH (09:07)
[2017-11-03 10:55] LABS: HEMATOCRIT 22.2 % (39.0-51.0); HEMOGLOBIN 7.5 GM/DL (13.0-17.0); MEAN CELL VOLUME 81.4 FL (80.0-100.0); MEAN CORPUSCULAR HEMOGLOBIN 27.5 PG (27.0-34.0); MEAN CORPUSCULAR HGB CONC 33.9 % (32.0-36.0); MEAN PLATELET VOLUME 7.4 FL (7.0-11.0); PLATELET COUNT 341 TH/MM3 (150-450); RED BLOOD COUNT 2.72 MIL/MM3 (4.50-5.90); RED CELL DISTRIBUTION WIDTH 15.2 % (11.6-17.2); WHITE BLOOD COUNT 7.4 TH/MM3 (4.0-11.0)
[2017-11-03 11:02] LABS: BICARBONATE 24.1 MEQ/L (21.0-32.0); CALCIUM 8.9 MG/DL (8.5-10.1); CREATININE 1.03 MG/DL (0.60-1.30)
--- NOTE | 2017-11-03 12:44 | HHI.IDPN ---
Subjective Subjective Remarks ID COVERAGE Mr. Barxton is a 57-year-old male with past medical history significant for diabetes type 2, prior diabetic foot ulcer treated in October 2016 thereafter was hospitalized from May 08, 2017 to May 29, 2017 due to foot ulcer. During that hospitalization patient underwent surgical debridement with wound VAC placement. Patient reports that he was seen by Dr. Pritchard during that admission. Patient reports that he was discharged on IV ceftriaxone using a PICC line. Patient had home health care visits him and continue to receive wound VAC changes at home. He also was subsequently seen at wound care clinic for ongoing wound care as well as [facility] for his primary care needs. Patient reports that his medications were recently adjusted and a new insulin was introduced. Patient reports that he was diagnosed with a possible staph or strep infection and has been on oral Bactrim approximately 2 weeks prior to admission. Due to worsening foot infection as well as possible reaction to the new insulin patient presented to the emergency department [facility]. Patient reports that he was having fevers, chills, loss of appetite and diarrhea for the past 2 days associated with frequent urination. Patient denies any dysuria. He reports dizziness and reported history of falls 3 days ago while on the toilet. Patient's reports that she was unaware of this history of fall. He denies any head injury. Patient reports hitting his right foot and shoulder but that he was able to get off the floor by himself. Patient had a sepsis workup initiated on admission. Wound cultures are positive for strep as well as blood cultures are now positive for gram-positive likely strep. Repeat blood cultures have been ordered. Podiatry is seeing the patient and there is a plan for surgical intervention and possible amputation of the involved digit. Infectious disease is consulted for evaluation and management of right fifth toe osteomyelitis with associated cellulitis, gram-positive bacteremia and sepsis. Notes reviewed No new complaints feels ok Temps not as high Nothing new on C/S Not coughing Not SOB No rash or itching CRP slightly up compared to last one WBC ok. Clinically no change hemodynamically to suggest sepsis or new infection. C/S OR Staph aureus No diarrhea ECHO no veg's. On Cubicin Levaquin added this weekend Antibiotics Cubicin Levaquin Current Medications Medications (Trade) Dose Ordered Sig/Anna Route Start Time Stop Time Status Last Admin (NS Flush) 2 ml UNSCH PRN IV FLUSH 2/20/18 16:45 10/21/17 23:13 (NS Flush) 2 ml BID IV FLUSH 10/07/17 21:00 11/03/17 09:06 (Narcan Inj) 0.4 mg UNSCH PRN IV PUSH 10/07/17 16:45 (D50w (Vial) Inj) 50 ml UNSCH PRN IV PUSH 10/08/17 10:30 (Glucagon Inj) 1 mg UNSCH PRN OTHER 10/08/17 10:30 (NovoLOG SUPPLEMENTAL SCALE) 1 ACHS SLIDING SCALE SQ 10/08/17 12:00 11/01/17 21:55 (Lactinex) 1 tab Q12HR PO 10/08/17 21:00 11/03/17 09:04 (NovoLOG INJ) 5 units TIDAC SQ 10/12/17 08:00 11/03/17 09:07 (Levemir Inj) 15 units HS SQ 10/12/17 21:00 11/02/17 20:32 (Morphine Inj) 4 mg Q3H PRN IV PUSH 10/13/17 12:45 11/03/17 05:46 (Restoril) 15 mg HS PRN PO 10/13/17 12:45 10/28/17 21:54 (Tylenol) 500 mg Q4H PRN PO 10/13/17 13:15 11/02/17 20:31 (Santyl Oint) 1 applic DAILY TOPICAL 10/22/17 12:00 11/03/17 09:07 (Neurontin) 600 mg TID PO 10/23/17 18:00 11/03/17 12:29 (Heparin Inj) 5,000 units Q12H SQ 10/28/17 15:00 11/03/17 02:25 (Morphine Inj) 2 mg Q4H PRN IV PUSH 10/31/17 12:45 11/03/17 02:23 (Percocet 5-325 Mg) 1 tab Q4H PRN PO 10/31/17 12:15 (Percocet 10-325 Mg) 1 tab Q4H PRN PO 10/31/17 12:15 11/03/17 09:05 Daptomycin 640 mg/ Sodium Chloride 100 ml @ 200 mls/hr Q24H IV 10/31/17 16:00 11/02/17 15:13 (Levaquin) 750 mg DAILY PO 11/02/17 16:00 11/03/17 09:04 Lines Line sites with no e.o infection Past Medical History Past Medical History DM II Right foot ulcer with possible osteomyelitis in the past. Has received IV antibiotics long-term using a PICC line in the past. Renal stones Past Surgical History Right foot debridement of wound removal of kidney stones Tonsillitis Allergies: Coded Allergies: No Known Allergies (Unverified Adverse Reaction, Unknown, 09/15/17) Uncoded Allergies: taiwanese dressing (Allergy, Severe, Anaphylaxis, 10/07/17) Objective . Vital Signs Date Time Temp Pulse Resp B/P (MAP) Pulse Ox O2 Delivery O2 Flow Rate FiO2 11/03/17 08:05 98.3 103 18 144/86 (105) 97 11/03/17 08:00 Nasal Cannula 2.00 11/03/17 04:16 98.3 104 18 121/79 (93) 94 11/03/17 00:00 98.9 104 18 121/81 (94) 96 11/02/17 22:00 Nasal Cannula 2.00 11/02/17 20:54 17 11/02/17 20:00 101.1 116 21 152/92 (112) 92 11/02/17 16:00 99.6 105 20 135/67 (89) 95 . Laboratory Tests Test 11/03/17 09:40 White Blood Count 7.4 TH/MM3 Red Blood Count 2.72 MIL/MM3 Hemoglobin 7.5 GM/DL Hematocrit 22.2 % Mean Corpuscular Volume 81.4 FL Mean Corpuscular Hemoglobin 27.5 PG Mean Corpuscular Hemoglobin Concent 33.9 % Red Cell Distribution Width 15.2 % Platelet Count 341 TH/MM3 Mean Platelet Volume 7.4 FL Laboratory Tests Test 11/03/17 09:40 Blood Urea Nitrogen 15 MG/DL Creatinine 1.03 MG/DL Random Glucose 111 MG/DL Calcium Level 8.9 MG/DL Sodium Level 134 MEQ/L Potassium Level 3.9 MEQ/L Chloride Level 100 MEQ/L Carbon Dioxide Level 24.1 MEQ/L Anion Gap 10 MEQ/L Estimat Glomerular Filtration Rate 74 ML/MIN Microbiology Date/Time Source Procedure Growth Status 10/31/17 14:46 Blood Peripheral Aerobic Blood Culture - Preliminary NO GROWTH IN 3 DAYS Resulted 10/31/17 14:46 Blood Peripheral Anaerobic Blood Culture - Preliminary NO GROWTH IN 3 DAYS Resulted 10/31/17 14:40 Blood Peripheral Aerobic Blood Culture - Preliminary NO GROWTH IN 3 DAYS Resulted 10/31/17 14:40 Blood Peripheral Anaerobic Blood Culture - Preliminary NO GROWTH IN 3 DAYS Resulted Imaging Chest X-Ray 10/30/17 0000 Signed Impressions: Service Date/Time: October 13:55 - CONCLUSION: 1. Consolidation of the left lower lobe. This would be concerning for a pneumonia. 2. Focal area of infiltrate seen in the left perihilar region. Raghavendra Lim MD Foot X-Ray 10/23/17 0000 Signed Impressions: Service Date/Time: October 17:15 - CONCLUSION: 1. 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 Lupillo Webster MD Chest X-Ray 10/22/17 0000 Signed Impressions: Service Date/Time: Sunday, October 22, 2017 09:07 - CONCLUSION: 1. Bilateral infiltrates and effusion. The exam has worsen when compared to previous dated 10/20/17. Raghavendra Lim MD Thoracentesis Ultrasound 10/20/17 0600 Signed Impressions: Service Date/Time: Friday, October 20, 2017 13:03 - CONCLUSION: Uncomplicated ultrasound guided thoracentesis. Smooth Saucedo MD Chest Ultrasound 10/17/17 0000 Signed Impressions: Service Date/Time: Tuesday, October 17, 2017 20:24 - CONCLUSION: A moderate to large right pleural effusion is confirmed sonographically and marked for thoracentesis. Hector Pierre MD Chest CT 10/16/17 0000 Signed Impressions: Service Date/Time: October 20:14 - CONCLUSION: Moderate-sized bilateral pleural effusions with adjacent compressive atelectasis and/or pneumonia. Scattered increased interstitial infiltrates within the perihilar regions and upper lobes bilaterally raising the possibility of pulmonary vascular congestion. Cardiomegaly and coronary artery calcifications are noted. Mild pretracheal and AP window mediastinal lymphadenopathy which is nonspecific. Degenerative changes and mild scoliosis of the thoracic spine. Hector Pierre MD Aspiration 10/16/17 0000 Signed Impressions: Service Date/Time: October 15:48 - CONCLUSION: Uncomplicated aspiration as above. Chetan Escobedo MD Abdomen/Pelvis CT 10/16/17 0000 Signed Impressions: Service Date/Time: October 20:14 - CONCLUSION: 1. Moderate-sized bilateral pleural effusions with adjacent consolidations consistent with atelectasis and/or pneumonia. 2. Tiny calcified nonobstructing bilateral renal calculi. 3. Mild hepatosplenomegaly. 4. Uncomplicated colonic diverticulosis. 5. Minimal free fluid within the pelvis. 6. Streakiness and fluid within the bilateral retroperitoneum inferior to the kidneys and extending into the presacral region. 7. Degenerative changes and scoliosis of the thoracolumbar spine. Hector Pierre MD Knee X-Ray 10/15/17 0000 Signed Impressions: Service Date/Time: Sunday, October 15, 2017 15:26 - CONCLUSION: Large joint effusion otherwise negative. Tu Lim MD FACR Carotid Artery Ultrasound 10/13/17 0000 Signed Impressions: Service Date/Time: Friday, October 13, 2017 16:12 - CONCLUSION: No evidence of flow-limiting carotid stenosis. Wm Riley MD Aorta w/Runoff CTA 10/13/17 0000 Signed Impressions: Service Date/Time: Friday, October 13, 2017 22:41 - CONCLUSION: 1. No aortic occlusive disease. 2. No significant iliac inflow stenosis. 3. No significant outflow stenosis. 4. Diffuse bilateral runoff disease with heavily calcified tibial arteries and significant venous contamination precluding patency evaluation beyond the very proximal calf. 5. Small to moderate bilateral pleural effusions with associated airspace disease at the lung bases, presumably atelectasis. 6. Trace free fluid in the deep pelvis. 7. Ancillary findings include hepatic steatosis, nonobstructing punctate calyceal calculus in the inferior pole of the left kidney and small suprapatellar right joint effusion. Lupillo Webster MD Foot MRI 10/12/17 0000 Signed Impressions: Service Date/Time: Thursday, October 12, 2017 08:31 - CONCLUSION: 1. No areas of suspected osteomyelitis. 2. Superficial soft tissue swelling over the third and fourth metatarsals. There is also some edema within the plantar musculature. Wm Dupree MD Ankle MRI 10/11/17 0000 Signed Impressions: Service Date/Time: Wednesday, October 11, 2017 09:41 - CONCLUSION: 1. No definite areas of osteomyelitis. There is some edema within the lateral cuboid adjacent to the suspected surgical defect which is likely reactive. T1 signal is maintained. 2. Multiple areas of focal edema within the midfoot mainly related to the subarticular regions likely related to underlying arthritic change. 3. The patient appears to be status post resection of the fifth metatarsal with post surgical change at the lateral hind and midfoot and a small focus of air seen adjacent to the calcaneus. Wm Dupree MD Physical Exam GENERAL: awake and alert, NAD SKIN: Cool and dry. No generalized rash HEAD: Atraumatic. Normocephalic. No temporal or scalp tenderness. EYES: Pupils equal round and reactive. EOM full and intact. No scleral icterus. No injection or drainage. ENT: Moist mucosa, no lesions, no oral thrush NECK: Trachea midline.Supple, nontender, no meningeal signs. CARDIOVASCULAR: Heart sounds audible. RESPIRATORY: basilar crackles. Breath sounds decreased bilateral bases. GASTROINTESTINAL: Abdomen soft, non-tender, nondistended. MUSCULOSKELETAL: Right foot with wound vac. Left foot in dressing. NEUROLOGICAL: Awake and alert. Nonfocal exam Psych cooperative IV line sites with no evidence of infection. Assessment & Plan Remarks Sepsis present on admission Strep bacteremia secondary to right foot osteomyelitis and cellulitis Staph MSSA bacteremia high grade. Strep not AB,D and Staph infection Right foot fifth MPJ osteomyelitis Right foot cellulitis Pneumonia with bilateral pleural effusions ? HCAP vs septic emboli. Right knee septic arthritis. Diabetes type 2 uncontrolled Acute renal failure: Sepsis, prerenal: improving Fevers, not as high - non-localizing - ?drug fever Recommendations: Follow C/S Continue Cubicin Also on Levaquin Monitor temps Monitor progress D/W patient Marci Bocanegra MD Nov 03, 2017 12:44
--- NOTE | 2017-11-03 13:45 | HHI.PR ---
Subjective Remarks Follow-up for infection Patient is a feels a lot better today. He had no complaints. Last fever was yesterday night 101. Objective Vitals Vital Signs Date Time Temp Pulse Resp B/P (MAP) Pulse Ox O2 Delivery O2 Flow Rate FiO2 11/03/17 12:05 98.2 103 18 128/82 (97) 94 11/03/17 08:05 98.3 103 18 144/86 (105) 97 11/03/17 08:00 Nasal Cannula 2.00 11/03/17 04:16 98.3 104 18 121/79 (93) 94 11/03/17 00:00 98.9 104 18 121/81 (94) 96 11/02/17 22:00 Nasal Cannula 2.00 11/02/17 20:54 17 11/02/17 20:00 101.1 116 21 152/92 (112) 92 11/02/17 16:00 99.6 105 20 135/67 (89) 95 I/O 11/02/17 11/02/17 11/02/17 11/03/17 11/03/17 11/03/17 07:00 15:00 23:00 07:00 15:00 23:00 Intake Total 750 ml 360 ml 480 ml Output Total 850 ml 525 ml 1200 ml Balance -100 ml -165 ml -720 ml Intake Oral 750 ml 360 ml 480 ml Output Urine Total 850 ml 525 ml 1200 ml # Bowel Movements 1 Result Diagram: 11/03/17 0940 11/03/17 0940 Objective Remarks GENERAL: in NAD SKIN: Sacral gluteal area with macular pink rash. CARDIOVASCULAR: Regular rate and rhythm without murmurs, gallops, or rubs. RESPIRATORY: Breath sounds equal bilaterally. No accessory muscle use. GASTROINTESTINAL: Abdomen soft, non-tender, nondistended. MUSCULOSKELETAL: Right knee with swelling. No erythema or warmth. Right foot wrapped in bandages wound VAC in place. Procedures 10/08/17 Right foot and ankle incision drainage, 5th metatarsal resection, 5th digit amputation 10/25/17 Incision and drainage Right foot/ankle abscess with bone biopsy right 4th metatarsal base; wound vac placement Medications and IVs Current Medications Piperacillin Sod/ Tazobactam Sod 100 ml @ 200 mls/hr ONCE STAT IV Last administered on 10/07/17at 15:56; Start 10/07/17 at 14:48; Stop 10/07/17 at 15:17 ; Status DC Vancomycin HCl 1000 mg/Sodium Chloride 250 ml @ 250 mls/hr ONCE STAT IV Last administered on 10/07/17at 16:32; Start 10/07/17 at 14:48; Stop 10/07/17 at 15:47 ; Status DC Sodium Chloride 1,000 ml @ 999 mls/hr BOLUS ONCE IV Last administered on 10/07at 15:57; Start 10/07/17 at 15:00; Stop 10/07/17 at 16:00; Status DC Oxycodone/ Acetaminophen (Percocet 5-325 Mg) 1 tab ONCE ONCE PO Last administered on 10/07/17at 16:31; Start 10/07/17 at 16:30; Stop 10/07/17 at 16:31 ; Status DC Sodium Chloride (NS Flush) 2 ml UNSCH PRN IV FLUSH FLUSH AFTER USING IV ACCESS Last administered on 10/21/17at 23:13; Start 10/07/17 at 16:45 Sodium Chloride (NS Flush) 2 ml BID IV FLUSH Last administered on 11/03/17at 09: 06; Start 10/07/17 at 21:00 Naloxone HCl (Narcan Inj) 0.4 mg UNSCH PRN IV PUSH SEE LABEL COMMENTS; Start at 16:45 Pharmacy Profile Note 0 ml @ 0 mls/hr UNSCH OTHER ; Start 10/07/17 at 17:00; Stop 10/11/17 at 13:39; Status DC Piperacillin Sod/ Tazobactam Sod 100 ml @ 200 mls/hr Q6H IV Last administered on 10/09/17at 09:27; Start 10/07/17 at 22:00; Stop 10/09/17 at 15:14; Status DC Sodium Chloride 500 ml @ 500 mls/hr BOLUS ONCE IV Last administered on at 18:50; Start 10/07/17 at 17:30; Stop 10/07/17 at 18:29; Status DC Tramadol HCl (Ultram) 50 mg Q12H PRN PO PAIN SCALE 5 TO 10 Last administered on 10/09/17at 09:27; Start 10/07/17 at 17:30; Stop 10/09/17 at 10:48; Status DC Vancomycin HCl 1250 mg/Sodium Chloride 262.5 ml @ 250 mls/hr Q24H IV Last administered on 10/10/17at 12:14; Start 10/08/17 at 11:00; Stop 10/10/17 at 14:01 ; Status DC Miscellaneous Information SPECIFIC LAB TO BE LUCERO... ONCE ONCE .XX Last administered on 10/10/17at 12:14; Start 10/10/17 at 10:45; Stop 10/10/17 at 10:46 ; Status DC Insulin Aspart (NovoLOG SUPPLEMENTAL SCALE) 1 ACHS SLIDING SCALE SQ Last administered on 10/08/17at 10:19; Start 10/07/17 at 21:00; Stop 10/08/17 at 10:27 ; Status DC Dextrose (D50w (Vial) Inj) 50 ml UNSCH PRN IV PUSH HYPOGLYCEMIA - SEE COMMENTS ; Start 10/07/17 at 19:15; Stop 10/08/17 at 10:27; Status DC Glucagon (Glucagon Inj) 1 mg UNSCH PRN OTHER HYPOGLYCEMIA-SEE COMMENTS; Start 10/07/17 at 19:15; Stop 10/08/17 at 10:27; Status DC Heparin Sodium (Porcine) (Heparin Inj) 5,000 units Q8HR SQ Last administered on 10/24/17at 21:32; Start 10/08/17 at 06:00; Stop 10/25/17 at 12:15; Status DC Acetaminophen/ Hydrocodone Bitart ([place] 5-325 Mg) 1 tab ONCE ONCE PO Last administered on 10/08/17at 01:21; Start 10/07/17 at 23:45; Stop 10/07/17 at 23:46 ; Status DC Gadodiamide (Omniscan Pf Inj) 14 ml STK-MED ONCE IVCONTRAST Last administered on 10/08/17at 09:53; Start 10/08/17 at 09:51; Stop 10/08/17 at 09:52; Status DC Dextrose (D50w (Vial) Inj) 50 ml UNSCH PRN IV PUSH HYPOGLYCEMIA-SEE COMMENTS; Start 10/08/17 at 10:30 Glucagon (Glucagon Inj) 1 mg UNSCH PRN OTHER HYPOGLYCEMIA-SEE COMMENTS; Start 10/08/17 at 10:30 Insulin Aspart (NovoLOG SUPPLEMENTAL SCALE) 1 ACHS SLIDING SCALE SQ Last administered on 11/01/17at 21:55; Start 10/08/17 at 12:00 Lactobacillus Acidophilus (Lactinex) 1 tab Q12HR PO Last administered on at 09:04; Start 10/08/17 at 21:00 Sodium Chloride 1,000 ml @ 84 mls/hr [id number] IV Last administered on at 21:04; Start 10/08/17 at 11:00; Stop 10/10/17 at 07:31; Status DC Bupivacaine HCl (Marcaine Pf 0.25% Inj) 30 ml STK-MED ONCE .ROUTE Last administered on 10/08/17at 16:28; Start 10/08/17 at 12:51; Stop 10/08/17 at 12:52 ; Status DC Morphine Sulfate (*morphine INJ PERIprocedure ONLY) 10 mg STK-MED ONCE .ROUTE Last administered on 10/08/17at 17:35; Start 10/08/17 at 17:35; Stop 10/08/17 at 17:36; Status DC Midazolam HCl (Versed Inj) 2 mg STK-MED ONCE .ROUTE ; Start 10/08/17 at 17:36; Stop 10/08/17 at 17:37; Status DC Fentanyl Citrate (fentaNYL INJ) 100 mcg STK-MED ONCE .ROUTE ; Start 10/08/17 at 17:36; Stop 10/08/17 at 17:37; Status DC Morphine Sulfate (Morphine Inj) 4 mg STK-MED ONCE .ROUTE ; Start 10/08/17 at 17: 36; Stop 10/08/17 at 17:37; Status DC Miscellaneous Information ALL NURSING DEPARTME... UNSCH PRN .XX SEE LABEL COMMENTS; Start 10/08/17 at 17:25; Stop 10/09/17 at 17:24; Status DC Acetaminophen (Tylenol) 650 mg Q4H PRN PO fever > 101, ZIMMERMAN; Start 10/09/17 at 01 :15; Stop 10/13/17 at 12:38; Status DC Insulin Detemir (Levemir Inj) 10 units BID SQ Last administered on 10/09/17at 21 :03; Start 10/09/17 at 11:00; Stop 10/10/17 at 07:31; Status DC Acetaminophen/ Hydrocodone Bitart ([place] 5-325 Mg) 1 tab Q4H PRN PO pain2-10 Last administered on 10/13/17at 05:47; Start 10/09/17 at 10:15; Stop 10/13/17 at 12:38; Status DC Rocuronium [place] (Zemuron Inj) 50 mg STK-MED ONCE IV PUSH ; Start 10/08/17 at 12:00; Stop 10/09/17 at 14:48; Status DC Phenylephrine HCl (Neosynephrine/ NS 1000 Mcg/10ml Syr) 1,000 mcg STK-MED ONCE IV ; Start 10/08/17 at 12:00; Stop 10/09/17 at 14:48; Status DC Propofol (Diprivan 200 Mg/20 ml Inj) 200 mg STK-MED ONCE IV ; Start 10/08/17 at 12:00; Stop 10/09/17 at 14:48; Status DC Ceftriaxone Sodium 2000 mg/ Sodium Chloride 100 ml @ 200 mls/hr Q24H IV Last administered on 10/10/17at 16:44; Start 10/09/17 at 17:00; Stop 10/11/17 at 13:39 ; Status DC Sodium Chloride 250 ml @ 15 mls/hr ONCE ONCE IV Last administered on at 09:45; Start 10/10/17 at 07:30; Stop 10/11/17 at 00:09; Status DC Acetaminophen (Tylenol) 650 mg Q4H PRN PO SEE LABEL COMMENTS Last administered on 10/10/17at 16:45; Start 10/10/17 at 07:30; Stop 10/10/17 at 23:59; Status DC Diphenhydramine HCl (Benadryl) 25 mg Q4H PRN PO SEE LABEL COMMENTS Last administered on 10/10/17at 16:44; Start 10/10/17 at 07:30; Stop 10/10/17 at 23:59 ; Status DC Insulin Detemir (Levemir Inj) 15 units BID SQ Last administered on 10/11/17at 08 :09; Start 10/10/17 at 09:00; Stop 10/11/17 at 20:22; Status DC Sodium Chloride 1,000 ml @ 84 mls/hr [id number] IV Last administered on 10/16/17at 08:56; Start 10/10/17 at 11:00; Stop 10/16/17 at 19:02; Status DC Bupivacaine HCl (Marcaine Pf 0.25% Inj) 30 ml STK-MED ONCE .ROUTE ; Start at 12:08; Stop 10/10/17 at 12:09; Status DC Neomycin/Polymyxin (Neosporin G.u. Irr) 2 ml STK-MED ONCE .ROUTE ; Start at 12:13; Stop 10/10/17 at 12:14; Status DC Vancomycin HCl 1250 mg/Sodium Chloride 262.5 ml @ 250 mls/hr Q18H IV Last administered on 10/11/17at 05:14; Start 10/11/17 at 06:00; Stop 10/11/17 at 13:39 ; Status DC Miscellaneous Information SPECIFIC LAB TO BE LUCERO... ONCE ONCE .XX ; Start 10/12 at 17:45; Stop 10/12/17 at 17:45; Status DC Fentanyl Citrate (fentaNYL INJ) 100 mcg STK-MED ONCE .ROUTE ; Start 10/10/17 at 14:39; Stop 10/10/17 at 14:40; Status DC Midazolam HCl (Versed Inj) 2 mg STK-MED ONCE .ROUTE ; Start 10/10/17 at 14:39; Stop 10/10/17 at 14:40; Status DC Miscellaneous Information ALL NURSING DEPARTME... UNSCH PRN .XX SEE LABEL COMMENTS; Start 10/10/17 at 14:30; Stop 10/11/17 at 14:29; Status DC Gadodiamide (Omniscan Pf Inj) 14 ml STK-MED ONCE IVCONTRAST Last administered on 10/11/17at 10:03; Start 10/11/17 at 10:03; Stop 10/11/17 at 10:04; Status DC Cefazolin Sodium/ Dextrose 50 ml @ 150 mls/hr Q8H IV Last administered on 10/13at 05:55; Start 10/11/17 at 14:00; Stop 10/13/17 at 13:26; Status DC Insulin Detemir (Levemir Inj) 20 units HS SQ Last administered on 10/11/17at 22: 54; Start 10/11/17 at 21:00; Stop 10/12/17 at 13:47; Status DC Insulin Aspart (NovoLOG INJ) 5 units TIDAC SQ Last administered on 11/03/17at 09 :07; Start 10/12/17 at 08:00 Gadodiamide (Omniscan Pf Inj) 18 ml STK-MED ONCE IVCONTRAST Last administered on 10/12/17at 08:53; Start 10/12/17 at 08:53; Stop 10/12/17 at 08:54; Status DC Insulin Detemir (Levemir Inj) 15 units HS SQ Last administered on 11/02/17at 20: 32; Start 10/12/17 at 21:00 Lidocaine HCl (Xylocaine-Mpf 1% Inj) 5 ml STK-MED ONCE OTHER ; Start 10/10/17 at 12:00; Stop 10/13/17 at 09:31; Status DC Phenylephrine HCl (Neosynephrine/ NS 1000 Mcg/10ml Syr) 1,000 mcg STK-MED ONCE IV ; Start 10/10/17 at 12:00; Stop 10/13/17 at 09:31; Status DC Ephedrine Sulfate (ePHEDrine/NS 25 MG/5 ML SYR) 25 mg STK-MED ONCE IV ; Start at 12:00; Stop 10/13/17 at 09:31; Status DC Dexamethasone Sodium Phosphate (Decadron Inj) 4 mg STK-MED ONCE IV ; Start 10/10 at 12:00; Stop 10/13/17 at 09:31; Status DC Ondansetron HCl (Zofran Inj) 4 mg STK-MED ONCE IV ; Start 10/10/17 at 12:00; Stop 10/13/17 at 09:31; Status DC Propofol (Diprivan 200 Mg/20 ml Inj) 200 mg STK-MED ONCE IV ; Start 10/10/17 at 12:00; Stop 10/13/17 at 09:31; Status DC Acetaminophen (Tylenol) 500 mg Q4H PRN PO Headache, fever, pain 1-4; Start at 13:15; Stop 10/13/17 at 13:15; Status DC Acetaminophen/ Hydrocodone Bitart ([place] 7.5-325 Mg) 1 tab Q6H PRN PO PAIN SCALE 5 TO 10 Last administered on 10/31/17at 05:27; Start 10/13/17 at 12:45; Stop 10/31/17 at 11:02; Status DC Morphine Sulfate (Morphine Inj) 5 mg Q4H PRN IV PUSH BREAKTHROUGH PAIN Last administered on 10/31/17 02:39; Start 10/13/17 at 12:45; Stop 10/31/17 at 11:02 ; Status DC Morphine Sulfate (Morphine Inj) 4 mg Q3H PRN IV PUSH Prior to dressing change Last administered on 11/03/17 05:46; Start 10/13/17 at 12:45 Temazepam (Restoril) 15 mg HS PRN PO INSOMNIA Last administered on 10/28/17 21 :54; Start 10/13/17 at 12:45 Acetaminophen (Tylenol) 500 mg Q4H PRN PO Headache, fever Last administered on 11/02/17 20:31; Start 10/13/17 at 13:15 Ceftriaxone Sodium 2000 mg/ Sodium Chloride 100 ml @ 200 mls/hr Q24H IV Last administered on 11/01/17 14:34; Start 10/13/17 at 14:00; Stop 11/02/17 at 09:39 ; Status DC Iohexol (Omnipaque 350 Inj) 100 ml STK-MED ONCE IVCONTRAST Last administered on 10/13/17 22:47; Start 10/13/17 at 22:46; Stop 10/13/17 at 22:47; Status DC Levofloxacin (Levaquin) 500 mg DAILY PO Last administered on 10/28/17 08:53; Start 10/14/17 at 17:00; Stop 10/28/17 at 11:12; Status DC Linezolid 300 ml @ 300 mls/hr Q12H IV Last administered on 10/23/17 04:38; Start 10/14/17 at 17:00; Stop 10/23/17 at 13:56; Status DC Potassium Chloride (KCl) 20 meq ONCE ONCE PO Last administered on 10/14/17at 18 :52; Start 10/14/17 at 18:30; Stop 10/14/17 at 18:31; Status DC Potassium Chloride (KCl) 20 meq Q12HR PO Last administered on 10/17/17 08:40; Start 10/14/17 at 21:00; Stop 10/17/17 at 20:59; Status DC Lactated Ringer's 1,000 ml @ 30 mls/hr Q24H PRN IV SEE LABEL COMMENTS; Start at 04:45; Stop 10/15/17 at 22:50; Status DC Sodium Chloride 500 ml @ 30 mls/hr [id number] PRN IV SEE LABEL COMMENTS; Start at 04:45; Stop 10/15/17 at 22:50; Status DC Povidone Iodine (Betadine 5% Antisepsis Kit) 1 applic CAMP ASSISTANT PRN EACH NARE SEE LABEL COMMENTS; Start 10/15/17 at 04:45; Stop 10/15/17 at 22:50; Status DC Chlorhexidine Gluconate (Chlorhexidine 2% Cloth) 3 pack CAMP ASSISTANT PRN TOPICAL SEE LABEL COMMENTS; Start 10/15/17 at 04:45; Stop 10/18/17 at 04:44; Status DC Lidocaine HCl (Xylocaine 2% Inj) 50 ml STK-MED ONCE .ROUTE ; Start 10/15/17 at 19:57; Stop 10/15/17 at 19:58; Status DC Bupivacaine HCl (Marcaine Pf 0.5% Inj) 30 ml STK-MED ONCE .ROUTE Last administered on 10/15/17at 20:36; Start 10/15/17 at 19:57; Stop 10/15/17 at 19:58 ; Status DC Vancomycin HCl (Vancomycin Inj) 500 mg STK-MED ONCE .ROUTE Last administered on 10/15/17at 21:07; Start 10/15/17 at 21:07; Stop 10/15/17 at 21:08; Status DC Fentanyl Citrate (fentaNYL INJ) 100 mcg STK-MED ONCE .ROUTE ; Start 10/15/17 at 22:18; Stop 10/15/17 at 22:19; Status DC Miscellaneous Information (Post-op Orders (for Pharmacy)) STAT ONCE XX ; Start 10/15/17 at 22:30; Stop 10/15/17 at 22:49; Status DC Miscellaneous Information ALL NURSING DEPARTME... UNSCH PRN .XX SEE LABEL COMMENTS; Start 10/15/17 at 22:15; Stop 10/16/17 at 22:14; Status DC Morphine Sulfate (Morphine Inj) 5 mg ONCE ONCE IV PUSH Last administered on 10/16/17at 15:14; Start 10/16/17 at 15:00; Stop 10/16/17 at 15:01; Status DC Diatrizoate Meglum/ Diatrizoate Sod (Md Kang Thakkar) 18 ml ONCE ONCE PO Last administered on 10/16/17at 17:18; Start 10/16/17 at 15:45; Stop 10/16/17 at 15: 46; Status DC Lactated Ringer's 1,000 ml @ 50 mls/hr Q20H IV Last administered on 10/23/17at 13:05; Start 10/16/17 at 19:15; Stop 10/23/17 at 13:51; Status DC Iohexol (Omnipaque 350 Inj) 90 ml STK-MED ONCE IVCONTRAST Last administered on 10/16/17at 20:25; Start 10/16/17 at 20:22; Stop 10/16/17 at 20:23; Status DC Lidocaine HCl (Xylocaine-Mpf 1% Inj) 5 ml STK-MED ONCE OTHER ; Start 10/15/17 at 12:00; Stop 10/17/17 at 12:19; Status DC Propofol (Diprivan 200 Mg/20 ml Inj) 200 mg STK-MED ONCE IV ; Start 10/15/17 at 12:00; Stop 10/17/17 at 12:19; Status DC Lidocaine HCl (Xylocaine 1% Inj) 9 ml STK-MED ONCE SQ Last administered on at 14:59; Start 10/20/17 at 14:59; Stop 10/20/17 at 15:00; Status DC Collagenase (Santyl Oint) 1 applic DAILY TOPICAL Last administered on at 09:07; Start 10/22/17 at 12:00 Gabapentin (Neurontin) 600 mg TID PO Last administered on 11/03/17at 12:29; Start 10/23/17 at 18:00 Furosemide (Lasix Inj) 20 mg ONCE ONCE IV PUSH Last administered on 10/23/17at 14:09; Start 10/23/17 at 14:00; Stop 10/23/17 at 14:01; Status DC Linezolid (Zyvox) 600 mg Q12HR PO Last administered on 10/28/17at 08:53; Start 10/23/17 at 21:00; Stop 10/28/17 at 11:12; Status DC Gadodiamide (Omniscan Pf Inj) 14 ml STK-MED ONCE IVCONTRAST Last administered on 10/24/17at 10:48; Start 10/24/17 at 10:48; Stop 10/24/17 at 10:49; Status DC Bupivacaine HCl (Marcaine Pf 0.5% Inj) 30 ml STK-MED ONCE .ROUTE ; Start at 07:26; Stop 10/25/17 at 07:27; Status DC Acetaminophen 100 ml @ As Directed STK-MED ONCE IV ; Start 10/25/17 at 07:33; Stop 10/25/17 at 07:34; Status DC Midazolam HCl (Versed Inj) 2 mg STK-MED ONCE .ROUTE ; Start 10/25/17 at 09:32; Stop 10/25/17 at 09:33; Status DC Fentanyl Citrate (fentaNYL INJ) 100 mcg STK-MED ONCE .ROUTE ; Start 10/25/17 at 09:33; Stop 10/25/17 at 09:34; Status DC Miscellaneous Information ALL NURSING DEPARTME... UNSCH PRN .XX SEE LABEL COMMENTS; Start 10/25/17 at 12:30; Stop 10/26/17 at 12:29; Status DC Sodium Chloride 1,000 ml @ 50 mls/hr Q20H IV Last administered on 10/30/17at 20 :44; Start 10/27/17 at 13:30; Stop 10/31/17 at 10:59; Status DC Lidocaine HCl (Xylocaine-Mpf 1% Inj) 5 ml STK-MED ONCE OTHER ; Start 10/25/17 at 12:00; Stop 10/28/17 at 09:30; Status DC Phenylephrine HCl (Neosynephrine/ NS 1000 Mcg/10ml Syr) 1,000 mcg STK-MED ONCE IV ; Start 10/25/17 at 12:00; Stop 10/28/17 at 09:30; Status DC Dexamethasone Sodium Phosphate (Decadron Inj) 4 mg STK-MED ONCE IV ; Start 10/25 at 12:00; Stop 10/28/17 at 09:30; Status DC Ondansetron HCl (Zofran Inj) 4 mg STK-MED ONCE IV ; Start 10/25/17 at 12:00; Stop 10/28/17 at 09:30; Status DC Propofol (Diprivan 200 Mg/20 ml Inj) 200 mg STK-MED ONCE IV ; Start 10/25/17 at 12:00; Stop 10/28/17 at 09:30; Status DC Heparin Sodium (Porcine) (Heparin Inj) 5,000 units Q12H SQ Last administered on 11/03/17at 02:25; Start 10/28/17 at 15:00 Morphine Sulfate (Morphine Inj) 2 mg Q4H PRN IV PUSH BREAKTHROUGH PAIN Last administered on 11/03/17at 13:21; Start 10/31/17 at 12:45 Oxycodone/ Acetaminophen (Percocet 5-325 Mg) 1 tab Q4H PRN PO pain 1-7; Start 10/31/17 at 12:15 Oxycodone/ Acetaminophen (Percocet 10-325 Mg) 1 tab Q4H PRN PO pain 8-10 Last administered on 11/03/17at 09:05; Start 10/31/17 at 12:15 Daptomycin 640 mg/ Sodium Chloride 100 ml @ 200 mls/hr Q24H IV Last administered on 11/02/17at 15:13; Start 10/31/17 at 16:00 Levofloxacin (Levaquin) 750 mg DAILY PO Last administered on 11/03/17at 09:04; Start 11/02/17 at 16:00 A/P Problem List: (1) Osteomyelitis of foot ICD Code: M86.9 - Osteomyelitis, unspecified (2) Leukocytosis ICD Code: D72.829 - Elevated white blood cell count, unspecified (3) Dehydration with hyponatremia ICD Code: E87.1 - Hypo-osmolality and hyponatremia (4) Acute kidney injury ICD Code: N17.9 - Acute kidney failure, unspecified (5) Sepsis ICD Code: A41.9 - Sepsis, unspecified organism Status: Acute (6) Diabetic foot ulcer ICD Code: E11.621 - Type 2 diabetes mellitus with foot ulcer; L97.509 - Non- pressure chronic ulcer of other part of unspecified foot with unspecified severity Status: Acute (7) Acute renal failure superimposed on stage 3 chronic kidney disease ICD Code: N17.9 - Acute kidney failure, unspecified; N18.3 - Chronic kidney disease, stage 3 (moderate) (8) Bacteremia due to Gram-positive bacteria ICD Code: R78.81 - Bacteremia (9) Postoperative anemia ICD Code: D64.9 - Anemia, unspecified Assessment and Plan This is a 57-year-old male who presented with sepsis Sepsis, resolved. - Secondary to diabetic foot infection, bacteremia, right foot osteomyelitis: Appreciate infectious disease recommendations. He does have a right knee pleural effusion with no growth. -He continues to have fever but most likely drug fever. Last fever was yesterday night 101. Continue to monitor fevers. Right foot osteomyelitis: Appreciate podiatry recommendations. -Status post incision and drainage, fifth metatarsal resection, fifth digit amputation on 10/08/17. Podiatry is recommending IV antibiotics on discharge. Final antibiotic recommendations per infectious disease. Continue wound care. S/P irrigation/debridement with wound vac placement 10/25/17. -need to wean off IV pain medication. on Percocet. -Rocephin discontinued on 11/02/2017 secondary to possible drug fever. Levaquin and Zyvox DC'd 10/28/2017. Wound culture growing staph and strep not A/B/D. New cultures obtained in surgery are growing staph aureus. -Patient on daptomycin and Levaquin was started yesterday. Continue with daptomycin and Levaquin. Management per infectious disease. Right knee effusion: -Continues to have right knee effusion but stable. Continue antibiotics. Appreciate orthopedic surgery recommendations. So far cultures are negative. Patient refusing I&D at the moment. Bilateral pleural effusion: -Appreciate pulmonology recommendations. Status post right-sided thoracentesis. Cytology is negative for malignant cells. Peripheral vascular disease: -Appreciate vascular surgery recommendations. Per vascular surgery, no surgical intervention is planned. Postoperative anemia: -Received transfusion of 2 units PRBCs. Monitor H&H. Diabetes mellitus type 2: -Continue Levemir. Monitor Accu-Cheks and cover with sliding scale insulin. Continue preprandial insulin as well. Acute kidney injury superimposed on chronic kidney disease stage III -Creatinine continues to improve. Continue with light hydration with IV fluids. Stage one pressure ulcer. -Patient needs turning every 2 hours. PT working with patient. Hypokalemia -Replenish as needed. DVT prophylaxis: Heparin. Discharge Planning Patient most likely require outpatient IV antibiotics and wound VAC changes. Problem Qualifiers (1) Sepsis: Qualified Codes: A41.9 - Sepsis, unspecified organism (2) Diabetic foot ulcer: Qualified Codes: E10.621 - Type 1 diabetes mellitus with foot ulcer; L97.419 - Non-pressure chronic ulcer of right heel and midfoot with unspecified severity Petty Ospina MD Nov 03, 2017 13:45
[2017-11-03] MEDS: DAPTOMYCIN IV SCH (16:47)
[2017-11-03] MEDS: SODIUM CHLORIDE 0.9% IV SCH (16:47)
--- NOTE | 2017-11-03 20:40 | HHI.PR ---
Subjective Remarks 57 YOWm with DM,Diabetic foot ulcer,Pl eff, Lung infilt US chest Mod to large Rt Pl eff no Fever Breathiing better Pl fluid cytology neg uses 02 off and on Has low grade fever Objective Vital Signs Vital Signs Date Time Temp Pulse Resp B/P (MAP) Pulse Ox O2 Delivery O2 Flow Rate FiO2 11/03/17 20:02 99.3 100 16 111/71 (84) 100 11/03/17 16:05 101.2 112 18 110/67 (81) 94 11/03/17 12:05 98.2 103 18 128/82 (97) 94 11/03/17 08:05 98.3 103 18 144/86 (105) 97 11/03/17 08:00 Nasal Cannula 2.00 11/03/17 04:16 98.3 104 18 121/79 (93) 94 11/03/17 00:00 98.9 104 18 121/81 (94) 96 11/02/17 22:00 Nasal Cannula 2.00 11/02/17 20:54 17 I/O 11/02/17 11/02/17 11/02/17 11/03/17 11/03/17 11/03/17 07:00 15:00 23:00 07:00 15:00 23:00 Intake Total 750 ml 360 ml 480 ml 720 ml Output Total 850 ml 525 ml 1200 ml 700 ml Balance -100 ml -165 ml -720 ml 20 ml Intake Oral 750 ml 360 ml 480 ml 720 ml Output Urine Total 850 ml 525 ml 1200 ml 700 ml # Bowel Movements 1 1 Result Diagram: 11/03/17 0940 11/03/17 0940 Objective Remarks GENERAL: WBWN WM,NAD SKIN: Warm and dry. HEAD: Normocephalic. EYES: No scleral icterus. No injection or drainage. NECK: Supple, trachea midline. No JVD or lymphadenopathy. CARDIOVASCULAR: Regular rate and rhythm without murmurs, gallops, or rubs. RESPIRATORY: Breath sounds equal bilaterally. No accessory muscle use. Decreased BS at Bases GASTROINTESTINAL: Abdomen soft, non-tender, nondistended. MUSCULOSKELETAL: No cyanosis, or edema. Foot ulcer, VAC device BACK: Nontender without obvious deformity. No CVA tenderness. A/P Assessment and Plan Bilat Pl effusion Lung infilt/ septic emboli DM Foot Ulcer PLAN: Pl fluid cytology, cultures neg Cont Abx Cubicin and Levaquin per ID Supplement 02 to keep sat >90% Curtis Liao MD Nov 03, 2017 20:40
[2017-11-03] MEDS: INSULIN DETEMIR 100 UNITS/ML VIAL SQ SCH (20:51)
[2017-11-04 03:08] VITALS: BP 127/81; PULSE 96; RESP 18; TEMP 98.8; O2SAT 97
[2017-11-04] MEDS: oxyCODONE/ACETAMINOPHEN 10 MG/325 MG TAB PO PRN ×4 (03:09→16:35)
[2017-11-04] MEDS: HEPARIN SODIUM - SQ 10,000 UNITS/ML VIAL SQ SCH ×2 (03:11→15:02)
[2017-11-04] MEDS: MORPHINE SULFATE 2 MG/ML SYRINGE IV PUSH PRN ×4 (04:19→21:58)
[2017-11-04 08:00] VITALS: BP 136/79; PULSE 103; RESP 20; TEMP 99.3; O2SAT 96
[2017-11-04] MEDS: INSULIN ASPART 1,000 UNITS/10 ML VIAL SQ SCH ×3 (08:00→18:09)
[2017-11-04] MEDS: INSULIN ASPART SUPPLEMENTAL SCALE SQ SCH ×4 (08:00→21:00)
--- NOTE | 2017-11-04 08:31 | HHI.PR ---
Subjective Remarks awake and alert, breathing "feels great" appears comfortable when asked about pain - 10 T max 101.6- yesterday pm no diarrhea - stoos soft formed, dark bronw good po appetite- no chest pains or shortness of breath voiding spontaneously Objective Vitals Vital Signs Date Time Temp Pulse Resp B/P (MAP) Pulse Ox O2 Delivery O2 Flow Rate FiO2 11/04/17 07:35 Nasal Cannula 2.00 11/04/17 03:11 Nasal Cannula 2.00 11/04/17 03:08 98.8 96 18 127/81 (96) 97 11/03/17 23:23 Nasal Cannula 3.00 11/03/17 23:23 99.1 99 20 118/80 (93) 97 11/03/17 21:01 Room Air 11/03/17 20:02 99.3 100 16 111/71 (84) 100 11/03/17 16:05 101.2 112 18 110/67 (81) 94 11/03/17 12:05 98.2 103 18 128/82 (97) 94 I/O 11/03/17 11/03/17 11/03/17 11/04/17 11/04/17 11/04/17 07:00 15:00 23:00 07:00 15:00 23:00 Intake Total 480 ml 720 ml 640 ml Output Total 1200 ml 700 ml 1100 ml Balance -720 ml 20 ml -460 ml Intake Oral 480 ml 720 ml 640 ml Output Urine Total 1200 ml 700 ml 1100 ml # Bowel Movements 1 1 Result Diagram: 11/03/17 0940 11/03/17 0940 Imaging Last Impressions Chest X-Ray 10/30/17 0000 Signed Impressions: Service Date/Time: October 13:55 - CONCLUSION: 1. Consolidation of the left lower lobe. This would be concerning for a pneumonia. 2. Focal area of infiltrate seen in the left perihilar region. Raghavendra Lim MD Lower Extremity Ultrasound 10/28/17 0000 Signed Impressions: Service Date/Time: Saturday, October 28, 2017 16:26 - CONCLUSION: 1. Negative for deep venous thrombosis. Mildly enlarged right inguinal lymph nodes. Francisco Grider MD Foot MRI 10/24/17 0000 Signed Impressions: Service Date/Time: Tuesday, October 24, 2017 10:08 - CONCLUSION: 1. Marrow edema and mild marrow enhancement in the proximal fourth metatarsal suspicious for an early osteomyelitis. 2. Complex fluid collection in the lateral foot near the base of the fourth metatarsal, probably an abscess with surrounding cellulitis. 3. Extensive marrow edema in the midfoot as above, probably reactive. Patchy low signal in the navicular and cuboid may indicate some avascular necrosis. 4. Postoperative resection of the fifth toe and fifth metatarsal. Francisco Grider MD Ankle MRI 10/24/17 0000 Signed Impressions: Service Date/Time: Tuesday, October 24, 2017 10:08 - CONCLUSION: 1. No definite evidence for osteomyelitis around the right ankle. Marrow edema however has increased slightly since the prior exam, probably reactive and possibly associated with a developing Charcot arthropathy. Low signal patchy areas within the tarsal navicular are suspicious for developing avascular necrosis. There is edema in the soft tissues of the hindfoot. Trace joint fluid. Francisco Grider MD Foot X-Ray 10/23/17 Signed Impressions: Service Date/Time: October 17:15 - CONCLUSION: 1. 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 Lupillo Webster MD Thoracentesis Ultrasound 10/20/17 0600 Signed Impressions: Service Date/Time: Friday, October 20, 2017 13:03 - CONCLUSION: Uncomplicated ultrasound guided thoracentesis. Smooth Saucedo MD Chest Ultrasound 10/17/17 0000 Signed Impressions: Service Date/Time: Tuesday, October 17, 2017 20:24 - CONCLUSION: A moderate to large right pleural effusion is confirmed sonographically and marked for thoracentesis. Hector Pierre MD Chest CT 10/16/17 0000 Signed Impressions: Service Date/Time: October 20:14 - CONCLUSION: Moderate-sized bilateral pleural effusions with adjacent compressive atelectasis and/or pneumonia. Scattered increased interstitial infiltrates within the perihilar regions and upper lobes bilaterally raising the possibility of pulmonary vascular congestion. Cardiomegaly and coronary artery calcifications are noted. Mild pretracheal and AP window mediastinal lymphadenopathy which is nonspecific. Degenerative changes and mild scoliosis of the thoracic spine. Hector Pierre MD Aspiration 10/16/17 0000 Signed Impressions: Service Date/Time: October 15:48 - CONCLUSION: Uncomplicated aspiration as above. Chetan Escobedo MD Abdomen/Pelvis CT 10/16/17 0000 Signed Impressions: Service Date/Time: October 20:14 - CONCLUSION: 1. Moderate-sized bilateral pleural effusions with adjacent consolidations consistent with atelectasis and/or pneumonia. 2. Tiny calcified nonobstructing bilateral renal calculi. 3. Mild hepatosplenomegaly. 4. Uncomplicated colonic diverticulosis. 5. Minimal free fluid within the pelvis. 6. Streakiness and fluid within the bilateral retroperitoneum inferior to the kidneys and extending into the presacral region. 7. Degenerative changes and scoliosis of the thoracolumbar spine. Hector Pierre MD Knee X-Ray 10/15/17 0000 Signed Impressions: Service Date/Time: Sunday, October 15, 2017 15:26 - CONCLUSION: Large joint effusion otherwise negative. Tu Lim MD FACR Carotid Artery Ultrasound 10/13/17 0000 Signed Impressions: Service Date/Time: Friday, October 13, 2017 16:12 - CONCLUSION: No evidence of flow-limiting carotid stenosis. Wm Riley MD Aorta w/Runoff CTA 10/13/17 0000 Signed Impressions: Service Date/Time: Friday, October 13, 2017 22:41 - CONCLUSION: 1. No aortic occlusive disease. 2. No significant iliac inflow stenosis. 3. No significant outflow stenosis. 4. Diffuse bilateral runoff disease with heavily calcified tibial arteries and significant venous contamination precluding patency evaluation beyond the very proximal calf. 5. Small to moderate bilateral pleural effusions with associated airspace disease at the lung bases, presumably atelectasis. 6. Trace free fluid in the deep pelvis. 7. Ancillary findings include hepatic steatosis, nonobstructing punctate calyceal calculus in the inferior pole of the left kidney and small suprapatellar right joint effusion. Lupillo Webster MD Objective Remarks awake and alert, oriented x 3. good sats, comfortable, speaking non stop with no shortness of breat anicteric no nuchal rigidity lungs- no rales , no wheezes, good air entry regular rhythm abdomen- soft, nontender, good bowel sounds extremities- right knee with effusion, no surrounding erythema- right foot s/p 5th toe amputation- VAC in place- lateral side of the foot sutures in place plantar aspect with dry eschar Procedures 10/08/17 Right foot and ankle incision drainage, 5th metatarsal resection, 5th digit amputation 10/25/17 Incision and drainage Right foot/ankle abscess with bone biopsy right 4th metatarsal base; wound vac placement A/P Problem List: (1) Osteomyelitis of foot ICD Code: M86.9 - Osteomyelitis, unspecified (2) Leukocytosis ICD Code: D72.829 - Elevated white blood cell count, unspecified (3) Dehydration with hyponatremia ICD Code: E87.1 - Hypo-osmolality and hyponatremia (4) Acute kidney injury ICD Code: N17.9 - Acute kidney failure, unspecified (5) Sepsis ICD Code: A41.9 - Sepsis, unspecified organism Status: Acute (6) Diabetic foot ulcer ICD Code: E11.621 - Type 2 diabetes mellitus with foot ulcer; L97.509 - Non- pressure chronic ulcer of other part of unspecified foot with unspecified severity Status: Acute (7) Acute renal failure superimposed on stage 3 chronic kidney disease ICD Code: N17.9 - Acute kidney failure, unspecified; N18.3 - Chronic kidney disease, stage 3 (moderate) (8) Bacteremia due to Gram-positive bacteria ICD Code: R78.81 - Bacteremia (9) Postoperative anemia ICD Code: D64.9 - Anemia, unspecified Assessment and Plan This is a 57-year-old male who presented with sepsis Sepsis, resolved. Fever isolated 101. 6- 11/03 - Secondary to diabetic foot infection, bacteremia, right foot osteomyelitis: Appreciate infectious disease recommendations. He does have a right knee pleural effusion with no growth. -He continues to have fever but most likely drug fever. - clinically looks well though - fever - 11/03 101. Continue to monitor fevers. ? drug fever- clinically looks well - recheck CBC Right foot osteomyelitis:S /P irrigation/debridement with wound vac placement 06/04. -Status post incision and drainage, fifth metatarsal resection, fifth digit amputation on 10/08/17. Podiatry is recommending IV antibiotics on discharge. Final antibiotic recommendations per infectious disease. Continue wound care. S - try to wean off IV pain medication. on po pain meds -Rocephin discontinued on 11/02/2017 secondary to possible drug fever. Levaquin and Zyvox DC'd 10/28/2017. Wound culture growing staph and strep not A/B/D. - New cultures obtained in surgery are growing staph aureus. - Patient on daptomycin and Levaquin - ID ff Right knee effusion:- improving -Continues to have right knee effusion but stable. Continue antibiotics. Appreciate orthopedic surgery recommendations. So far cultures are negative. Patient refusing I&D at the moment. Bilateral pleural effusion: - pulmonary - stable- breathing comfortably -Appreciate pulmonology recommendations. Status post right-sided thoracentesis. Cytology is negative for malignant cells. Peripheral vascular disease: -Appreciate vascular surgery recommendations. Per vascular surgery, no surgical intervention is planned. Postoperative anemia: -Received transfusion of 2 units PRBCs. Monitor H&H. - recheck Tian nd H in am - check iron studies Diabetes mellitus type 2: - good readings -Continue Levemir. Monitor Accu-Cheks and cover with sliding scale insulin. Continue preprandial insulin as well. Acute kidney injury superimposed on chronic kidney disease stage III -Creatinine continues to improve. Stage one pressure ulcer. -Patient needs turning every 2 hours. PT working with patient. Hypokalemia- imrpoved -Replenish as needed. DVT prophylaxis: Heparin. Discharge Planning Patient most likely require outpatient IV antibiotics and wound VAC changes. d/w patient- may need PICC for care home IV antibiotic administration- refused PICC states homeless - [place] the [place]" Problem Qualifiers (1) Sepsis: Qualified Codes: A41.9 - Sepsis, unspecified organism (2) Diabetic foot ulcer: Qualified Codes: E10.621 - Type 1 diabetes mellitus with foot ulcer; L97.419 - Non-pressure chronic ulcer of right heel and midfoot with unspecified severity Noni Huerta MD Nov 04, 2017 08:31
[2017-11-04] MEDS: SODIUM CHLORIDE 0.9% FLUSH 10 ML FLUSH IV FLUSH SCH ×2 (08:50→21:57)
[2017-11-04] MEDS: LACTOBACILLUS ACIDOPHILUS TAB PO SCH ×2 (08:53→21:54)
[2017-11-04] MEDS: LEVOFLOXACIN 750 MG TAB PO SCH (08:53)
[2017-11-04] MEDS: GABAPENTIN 300 MG CAP PO SCH ×3 (08:53→18:11)
[2017-11-04] MEDS: COLLAGENASE OINT 30 GM TUBE TOPICAL SCH (08:53)
[2017-11-04 12:00] VITALS: BP 124/68; PULSE 100; RESP 20; TEMP 99.6; O2SAT 98
--- NOTE | 2017-11-04 12:15 | HHI.IDPN ---
Subjective Subjective Remarks ID COVERAGE Mr. Braxton is a 57-year-old male with past medical history significant for diabetes type 2, prior diabetic foot ulcer treated in October 2016 thereafter was hospitalized from May 08, 2017 to May 29, 2017 due to foot ulcer. During that hospitalization patient underwent surgical debridement with wound VAC placement. Patient reports that he was seen by Dr. Pritchard during that admission. Patient reports that he was discharged on IV ceftriaxone using a PICC line. Patient had home health care visits him and continue to receive wound VAC changes at home. He also was subsequently seen at wound care clinic for ongoing wound care as well as [facility] for his primary care needs. Patient reports that his medications were recently adjusted and a new insulin was introduced. Patient reports that he was diagnosed with a possible staph or strep infection and has been on oral Bactrim approximately 2 weeks prior to admission. Due to worsening foot infection as well as possible reaction to the new insulin patient presented to the emergency department [facility]. Patient reports that he was having fevers, chills, loss of appetite and diarrhea for the past 2 days associated with frequent urination. Patient denies any dysuria. He reports dizziness and reported history of falls 3 days ago while on the toilet. Patient's reports that she was unaware of this history of fall. He denies any head injury. Patient reports hitting his right foot and shoulder but that he was able to get off the floor by himself. Patient had a sepsis workup initiated on admission. Wound cultures are positive for strep as well as blood cultures are now positive for gram-positive likely strep. Repeat blood cultures have been ordered. Podiatry is seeing the patient and there is a plan for surgical intervention and possible amputation of the involved digit. Infectious disease is consulted for evaluation and management of right fifth toe osteomyelitis with associated cellulitis, gram-positive bacteremia and sepsis. Notes reviewed No new complaints Feels good Temps low grade, seems to betrending down Nothing new on C/S Not coughing Not SOB No rash or itching WBC ok. Clinically no change hemodynamically to suggest sepsis or new infection. C/S OR Staph aureus No diarrhea ECHO no veg's. On Cubicin Levaquin added this weekend Antibiotics Cubicin Levaquin Current Medications Medications (Trade) Dose Ordered Sig/Anna Route Start Time Stop Time Status Last Admin (NS Flush) 2 ml UNSCH PRN IV FLUSH 2/20/18 16:45 10/21/17 23:13 (NS Flush) 2 ml BID IV FLUSH 10/07/17 21:00 11/04/17 08:50 (Narcan Inj) 0.4 mg UNSCH PRN IV PUSH 10/07/17 16:45 (D50w (Vial) Inj) 50 ml UNSCH PRN IV PUSH 10/08/17 10:30 (Glucagon Inj) 1 mg UNSCH PRN OTHER 10/08/17 10:30 (NovoLOG SUPPLEMENTAL SCALE) 1 ACHS SLIDING SCALE SQ 10/08/17 12:00 11/01/17 21:55 (Lactinex) 1 tab Q12HR PO 10/08/17 21:00 11/04/17 08:53 (NovoLOG INJ) 5 units TIDAC SQ 10/12/17 08:00 11/04/17 12:08 (Levemir Inj) 15 units HS SQ 10/12/17 21:00 11/03/17 20:51 (Restoril) 15 mg HS PRN PO 10/13/17 12:45 10/28/17 21:54 (Tylenol) 500 mg Q4H PRN PO 10/13/17 13:15 11/02/17 20:31 (Santyl Oint) 1 applic DAILY TOPICAL 10/22/17 12:00 11/04/17 08:53 (Neurontin) 600 mg TID PO 10/23/17 18:00 11/04/17 12:07 (Heparin Inj) 5,000 units Q12H SQ 10/28/17 15:00 11/04/17 03:11 (Percocet 5-325 Mg) 1 tab Q4H PRN PO 10/31/17 12:15 (Percocet 10-325 Mg) 1 tab Q4H PRN PO 10/31/17 12:15 11/04/17 12:07 Daptomycin 640 mg/ Sodium Chloride 100 ml @ 200 mls/hr Q24H IV 10/31/17 16:00 11/03/17 16:47 (Levaquin) 750 mg DAILY PO 11/02/17 16:00 11/04/17 08:53 (Morphine Inj) 1 mg Q4H PRN IV PUSH 11/04/17 08:30 (Morphine Inj) 2 mg BID PRN IV PUSH 11/04/17 08:30 11/04/17 08:50 Lines Line sites with no e.o infection Past Medical History Past Medical History DM II Right foot ulcer with possible osteomyelitis in the past. Has received IV antibiotics long-term using a PICC line in the past. Renal stones Past Surgical History Right foot debridement of wound removal of kidney stones Tonsillitis Allergies: Coded Allergies: No Known Allergies (Unverified Adverse Reaction, Unknown, 09/15/17) Uncoded Allergies: trinidadian dressing (Allergy, Severe, Anaphylaxis, 10/07/17) Objective . Vital Signs Date Time Temp Pulse Resp B/P (MAP) Pulse Ox O2 Delivery O2 Flow Rate FiO2 11/04/17 08:00 99.3 103 20 136/79 (98) 96 11/04/17 07:35 Nasal Cannula 2.00 11/04/17 03:11 Nasal Cannula 2.00 11/04/17 03:08 98.8 96 18 127/81 (96) 97 11/03/17 23:23 Nasal Cannula 3.00 11/03/17 23:23 99.1 99 20 118/80 (93) 97 11/03/17 21:01 Room Air 11/03/17 20:02 99.3 100 16 111/71 (84) 100 11/03/17 16:05 101.2 112 18 110/67 (81) 94 . Laboratory Tests Test 11/03/17 09:40 White Blood Count 7.4 TH/MM3 Red Blood Count 2.72 MIL/MM3 Hemoglobin 7.5 GM/DL Hematocrit 22.2 % Mean Corpuscular Volume 81.4 FL Mean Corpuscular Hemoglobin 27.5 PG Mean Corpuscular Hemoglobin Concent 33.9 % Red Cell Distribution Width 15.2 % Platelet Count 341 TH/MM3 Mean Platelet Volume 7.4 FL Laboratory Tests Test 11/03/17 09:40 Blood Urea Nitrogen 15 MG/DL Creatinine 1.03 MG/DL Random Glucose 111 MG/DL Calcium Level 8.9 MG/DL Sodium Level 134 MEQ/L Potassium Level 3.9 MEQ/L Chloride Level 100 MEQ/L Carbon Dioxide Level 24.1 MEQ/L Anion Gap 10 MEQ/L Estimat Glomerular Filtration Rate 74 ML/MIN Imaging Chest X-Ray 10/30/17 0000 Signed Impressions: Service Date/Time: October 13:55 - CONCLUSION: 1. Consolidation of the left lower lobe. This would be concerning for a pneumonia. 2. Focal area of infiltrate seen in the left perihilar region. Raghavendra Lim MD Foot X-Ray 10/23/17 0000 Signed Impressions: Service Date/Time: October 17:15 - CONCLUSION: 1. 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 Lupillo Webster MD Chest X-Ray 10/22/17 0000 Signed Impressions: Service Date/Time: Sunday, October 22, 2017 09:07 - CONCLUSION: 1. Bilateral infiltrates and effusion. The exam has worsen when compared to previous dated 10/20/17. Raghavendra Lim MD Thoracentesis Ultrasound 10/20/17 0600 Signed Impressions: Service Date/Time: Friday, October 20, 2017 13:03 - CONCLUSION: Uncomplicated ultrasound guided thoracentesis. Smooth Saucedo MD Chest Ultrasound 10/17/17 0000 Signed Impressions: Service Date/Time: Tuesday, October 17, 2017 20:24 - CONCLUSION: A moderate to large right pleural effusion is confirmed sonographically and marked for thoracentesis. Hector Pierre MD Chest CT 10/16/17 0000 Signed Impressions: Service Date/Time: October 20:14 - CONCLUSION: Moderate-sized bilateral pleural effusions with adjacent compressive atelectasis and/or pneumonia. Scattered increased interstitial infiltrates within the perihilar regions and upper lobes bilaterally raising the possibility of pulmonary vascular congestion. Cardiomegaly and coronary artery calcifications are noted. Mild pretracheal and AP window mediastinal lymphadenopathy which is nonspecific. Degenerative changes and mild scoliosis of the thoracic spine. Hector Pierre MD Aspiration 10/16/17 0000 Signed Impressions: Service Date/Time: October 15:48 - CONCLUSION: Uncomplicated aspiration as above. Chetan Escobedo MD Abdomen/Pelvis CT 10/16/17 0000 Signed Impressions: Service Date/Time: October 20:14 - CONCLUSION: 1. Moderate-sized bilateral pleural effusions with adjacent consolidations consistent with atelectasis and/or pneumonia. 2. Tiny calcified nonobstructing bilateral renal calculi. 3. Mild hepatosplenomegaly. 4. Uncomplicated colonic diverticulosis. 5. Minimal free fluid within the pelvis. 6. Streakiness and fluid within the bilateral retroperitoneum inferior to the kidneys and extending into the presacral region. 7. Degenerative changes and scoliosis of the thoracolumbar spine. Hector Pierre MD Knee X-Ray 10/15/17 0000 Signed Impressions: Service Date/Time: Sunday, October 15, 2017 15:26 - CONCLUSION: Large joint effusion otherwise negative. Tu Lim MD FACR Carotid Artery Ultrasound 10/13/17 0000 Signed Impressions: Service Date/Time: Friday, October 13, 2017 16:12 - CONCLUSION: No evidence of flow-limiting carotid stenosis. Wm Riley MD Aorta w/Runoff CTA 10/13/17 0000 Signed Impressions: Service Date/Time: Friday, October 13, 2017 22:41 - CONCLUSION: 1. No aortic occlusive disease. 2. No significant iliac inflow stenosis. 3. No significant outflow stenosis. 4. Diffuse bilateral runoff disease with heavily calcified tibial arteries and significant venous contamination precluding patency evaluation beyond the very proximal calf. 5. Small to moderate bilateral pleural effusions with associated airspace disease at the lung bases, presumably atelectasis. 6. Trace free fluid in the deep pelvis. 7. Ancillary findings include hepatic steatosis, nonobstructing punctate calyceal calculus in the inferior pole of the left kidney and small suprapatellar right joint effusion. Lupillo Webster MD Foot MRI 10/12/17 0000 Signed Impressions: Service Date/Time: Thursday, October 12, 2017 08:31 - CONCLUSION: 1. No areas of suspected osteomyelitis. 2. Superficial soft tissue swelling over the third and fourth metatarsals. There is also some edema within the plantar musculature. Wm Dupree MD Ankle MRI 10/11/17 0000 Signed Impressions: Service Date/Time: Wednesday, October 11, 2017 09:41 - CONCLUSION: 1. No definite areas of osteomyelitis. There is some edema within the lateral cuboid adjacent to the suspected surgical defect which is likely reactive. T1 signal is maintained. 2. Multiple areas of focal edema within the midfoot mainly related to the subarticular regions likely related to underlying arthritic change. 3. The patient appears to be status post resection of the fifth metatarsal with post surgical change at the lateral hind and midfoot and a small focus of air seen adjacent to the calcaneus. Wm Dupree MD Physical Exam GENERAL: awake and alert, NAD SKIN: Cool and dry. No generalized rash HEAD: Atraumatic. Normocephalic. No temporal or scalp tenderness. EYES: Pupils equal round and reactive. EOM full and intact. No scleral icterus. No injection or drainage. ENT: Moist mucosa, no lesions, no oral thrush NECK: Trachea midline.Supple, nontender, no meningeal signs. CARDIOVASCULAR: Heart sounds audible. RESPIRATORY: basilar crackles. Breath sounds decreased bilateral bases. GASTROINTESTINAL: Abdomen soft, non-tender, nondistended. MUSCULOSKELETAL: Right foot with wound vac. Left foot in dressing. NEUROLOGICAL: Awake and alert. Nonfocal exam Psych cooperative IV line sites with no evidence of infection. Assessment & Plan Remarks Sepsis present on admission Strep bacteremia secondary to right foot osteomyelitis and cellulitis Staph MSSA bacteremia high grade. Strep not AB,D and Staph infection Right foot fifth MPJ osteomyelitis Right foot cellulitis Pneumonia with bilateral pleural effusions ? HCAP vs septic emboli. Right knee septic arthritis. Diabetes type 2 uncontrolled Acute renal failure: Sepsis, prerenal: improving Fevers, not as high - non-localizing - ?drug fever Recommendations: Continue Cubicin - follow CPK Also on Levaquin - started this weekend Repeat CXR tomorrow Monitor temps Monitor progress D/W patient Marci Bocanegra MD Nov 04, 2017 12:15
--- NOTE | 2017-11-04 12:57 | RADRPT ---
EXAM DATE/TIME: 11/04/2017 12:29 [facility] COMPARISON: CHEST SINGLE AP, October 30, 2017, 13:55. INDICATIONS : Follow up left infiltrate. MEDICAL HISTORY : renal calculi, diabetes, hallucinations SURGICAL HISTORY : right foot surgery ENCOUNTER: Initial ACUITY: 1 month PAIN SCORE: 0/10 LOCATION: Bilateral chest FINDINGS: A single view of the chest demonstrates cardiomegaly with bilateral perihilar consolidation greater o n the left. There is some interstitial prominence. Osseous structures are intact. CONCLUSION: 1. Cardiomegaly with bilateral perihilar edema greater on the left, likely from CHF and pulmonary georgette ma. 2. Underlying infiltrate cannot be excluded. Jairon Malcolm MD on November 04, 2017 at 12:53 Board Certified Radiologist. This report was verified electronically.
[2017-11-04] MEDS: SODIUM CHLORIDE 0.9% IV SCH (15:03)
[2017-11-04] MEDS: DAPTOMYCIN IV SCH (15:03)
[2017-11-04 16:00] VITALS: BP 115/57; PULSE 99; RESP 20; TEMP 99; O2SAT 95
--- NOTE | 2017-11-04 19:08 | HHI.PR ---
Subjective Remarks 57 YOWm with DM,Diabetic foot ulcer,Pl eff, Lung infilt US chest Mod to large Rt Pl eff no Fever Breathiing better Pl fluid cytology neg uses 02 off and on Objective Vital Signs Vital Signs Date Time Temp Pulse Resp B/P (MAP) Pulse Ox O2 Delivery O2 Flow Rate FiO2 11/04/17 16:00 99.0 99 20 115/57 (76) 95 11/04/17 12:00 99.6 100 20 124/68 (86) 98 11/04/17 08:00 99.3 103 20 136/79 (98) 96 11/04/17 07:35 Nasal Cannula 2.00 11/04/17 03:11 Nasal Cannula 2.00 11/04/17 03:08 98.8 96 18 127/81 (96) 97 11/03/17 23:23 Nasal Cannula 3.00 11/03/17 23:23 99.1 99 20 118/80 (93) 97 11/03/17 21:01 Room Air 11/03/17 20:02 99.3 100 16 111/71 (84) 100 I/O 11/03/17 11/03/17 11/03/17 11/04/17 11/04/17 11/04/17 07:00 15:00 23:00 07:00 15:00 23:00 Intake Total 480 ml 720 ml 640 ml 480 ml Output Total 1200 ml 700 ml 1100 ml 600 ml Balance -720 ml 20 ml -460 ml -120 ml Intake Oral 480 ml 720 ml 640 ml 480 ml Output Urine Total 1200 ml 700 ml 1100 ml 600 ml # Bowel Movements 1 1 Result Diagram: 11/03/17 0940 11/03/17 0940 Objective Remarks GENERAL: WBWN WM,NAD SKIN: Warm and dry. HEAD: Normocephalic. EYES: No scleral icterus. No injection or drainage. NECK: Supple, trachea midline. No JVD or lymphadenopathy. CARDIOVASCULAR: Regular rate and rhythm without murmurs, gallops, or rubs. RESPIRATORY: Breath sounds equal bilaterally. No accessory muscle use. Decreased BS at Bases GASTROINTESTINAL: Abdomen soft, non-tender, nondistended. MUSCULOSKELETAL: No cyanosis, or edema. Foot ulcer, VAC device BACK: Nontender without obvious deformity. No CVA tenderness. A/P Assessment and Plan Bilat Pl effusion Lung infilt/ septic emboli DM Foot Ulcer PLAN: Pl fluid cytology, cultures neg Cont Abx Cubicin and Levaquin per ID Supplement 02 to keep sat >90% Curtis Liao MD Nov 04, 2017 19:08
[2017-11-04 19:41] VITALS: BP 106/59; PULSE 105; RESP 20; TEMP 99; O2SAT 95
[2017-11-04] MEDS: INSULIN DETEMIR 100 UNITS/ML VIAL SQ SCH (21:56)
[2017-11-05] VITALS (7 sets, daily range): BP systolic 114–129; BP diastolic 58–74; PULSE 94–111; RESP 12–20; TEMP 97–100.8; O2SAT 90–98
[2017-11-05] MEDS: oxyCODONE/ACETAMINOPHEN 10 MG/325 MG TAB PO PRN ×5 (00:17→21:02)
[2017-11-05] MEDS: MORPHINE SULFATE 2 MG/ML SYRINGE IV PUSH PRN ×5 (03:34→23:05)
[2017-11-05] MEDS: HEPARIN SODIUM - SQ 10,000 UNITS/ML VIAL SQ SCH (04:11)
[2017-11-05 06:56] LABS: AUTOMATED NEUTROPHIL # 5.3 TH/MM3 (1.8-7.7); BASOPHIL # 0.1 TH/MM3 (0-0.2); BASOPHIL % 1.1 % (0.0-2.0); EOSINOPHIL # 0.1 TH/MM3 (0-0.4); EOSINOPHIL % 1.3 % (0.0-4.0); LYMPH % 21.1 % (9.0-44.0); LYMPHOCYTE # 1.7 TH/MM3 (1.0-4.8); MEAN CELL VOLUME 80.5 FL (80.0-100.0); MEAN CORPUSCULAR HEMOGLOBIN 27.3 PG (27.0-34.0); MEAN CORPUSCULAR HGB CONC 33.9 % (32.0-36.0); MEAN PLATELET VOLUME 7.3 FL (7.0-11.0); MONO % 9.7 % (0.0-8.0); MONOCYTE # 0.8 TH/MM3 (0-0.9); NEUT % 66.8 % (16.0-70.0); PLATELET COUNT 343 TH/MM3 (150-450); RED BLOOD COUNT 2.44 MIL/MM3 (4.50-5.90); RED CELL DISTRIBUTION WIDTH 15.3 % (11.6-17.2)
[2017-11-05 07:04] LABS: HEMOGLOBIN 6.7 GM/DL (13.0-17.0)
[2017-11-05 07:05] LABS: HEMATOCRIT 19.6 % (39.0-51.0)
[2017-11-05 07:27] LABS: IRON (FE) 13 MCG/DL (65-175)
[2017-11-05 07:53] LABS: % SATURATION IRON PROFILE 6.3 % (20-50); FERRITIN 412 NG/ML (26-388); TOTAL IRON BINDING CAPACITY 206 MCG/DL (250-450)
[2017-11-05 07:54] LABS: FOLATE GREATER THAN 20.0 NG/ML (3.1-17.5)
[2017-11-05] MEDS: INSULIN ASPART 1,000 UNITS/10 ML VIAL SQ SCH ×3 (08:00→16:43)
[2017-11-05] MEDS: INSULIN ASPART SUPPLEMENTAL SCALE SQ SCH ×4 (08:00→21:00)
[2017-11-05] MEDS: GABAPENTIN 300 MG CAP PO SCH ×3 (08:36→18:10)
[2017-11-05] MEDS: LACTOBACILLUS ACIDOPHILUS TAB PO SCH ×2 (08:36→21:02)
[2017-11-05] MEDS: LEVOFLOXACIN 750 MG TAB PO SCH (08:36)
[2017-11-05 08:37] LABS: BICARBONATE 26.4 MEQ/L (21.0-32.0); CALCIUM 8.4 MG/DL (8.5-10.1); CREATININE 1.08 MG/DL (0.60-1.30)
[2017-11-05] MEDS: SODIUM CHLORIDE 0.9% FLUSH 10 ML FLUSH IV FLUSH SCH ×2 (08:38→21:02)
[2017-11-05] MEDS: COLLAGENASE OINT 30 GM TUBE TOPICAL SCH (08:42)
--- NOTE | 2017-11-05 09:33 | HHI.PR ---
Subjective Remarks feels stronger- with ongoing blood transfusion states breathing better too states he up and ambulated last evening with no shortness of breath denies history of GIB stools black on exam Objective Vitals Vital Signs Date Time Temp Pulse Resp B/P (MAP) Pulse Ox O2 Delivery O2 Flow Rate FiO2 11/05/17 08:37 20 11/05/17 08:20 100.0 104 20 114/64 97 11/05/17 08:00 Nasal Cannula 2.00 11/05/17 03:32 Nasal Cannula 2.00 11/05/17 03:31 98.3 94 20 123/68 (86) 98 11/05/17 00:00 100.8 111 20 114/58 (76) 90 11/05/17 00:00 93 Nasal Cannula 2.00 11/04/17 20:00 Room Air 11/04/17 19:41 99.0 105 20 106/59 (75) 95 11/04/17 16:00 99.0 99 20 115/57 (76) 95 11/04/17 16:00 99.0 99 20 115/57 (76) 95 11/04/17 12:00 99.6 100 20 124/68 (86) 98 I/O 11/04/17 11/04/17 11/04/17 11/05/17 11/05/17 11/05/17 07:00 15:00 23:00 07:00 15:00 23:00 Intake Total 640 ml 480 ml 200 ml 20 ml Output Total 1100 ml 600 ml 500 ml Balance -460 ml -120 ml 200 ml -480 ml Intake Oral 640 ml 480 ml IV Total 200 ml Blood Product IV Normal Saline Flush 20 ml Output Urine Total 1100 ml 600 ml 500 ml Result Diagram: 11/05/17 0633 11/05/17 0633 Imaging Last Impressions Chest X-Ray 11/04/17 0000 Signed Impressions: Service Date/Time: Saturday, November 04, 2017 12:29 - CONCLUSION: 1. Cardiomegaly with bilateral perihilar edema greater on the left, likely from CHF and pulmonary edema. 2. Underlying infiltrate cannot be excluded. Jairon Malcolm MD Lower Extremity Ultrasound 10/28/17 0000 Signed Impressions: Service Date/Time: Saturday, October 28, 2017 16:26 - CONCLUSION: 1. Negative for deep venous thrombosis. Mildly enlarged right inguinal lymph nodes. Francisco Grider MD Foot MRI 10/24/17 0000 Signed Impressions: Service Date/Time: Tuesday, October 24, 2017 10:08 - CONCLUSION: 1. Marrow edema and mild marrow enhancement in the proximal fourth metatarsal suspicious for an early osteomyelitis. 2. Complex fluid collection in the lateral foot near the base of the fourth metatarsal, probably an abscess with surrounding cellulitis. 3. Extensive marrow edema in the midfoot as above, probably reactive. Patchy low signal in the navicular and cuboid may indicate some avascular necrosis. 4. Postoperative resection of the fifth toe and fifth metatarsal. Francisco Grider MD Ankle MRI 10/24/17 0000 Signed Impressions: Service Date/Time: Tuesday, October 24, 2017 10:08 - CONCLUSION: 1. No definite evidence for osteomyelitis around the right ankle. Marrow edema however has increased slightly since the prior exam, probably reactive and possibly associated with a developing Charcot arthropathy. Low signal patchy areas within the tarsal navicular are suspicious for developing avascular necrosis. There is edema in the soft tissues of the hindfoot. Trace joint fluid. Francisco Grider MD Foot X-Ray 10/23/17 0000 Signed Impressions: Service Date/Time: October 17:15 - CONCLUSION: 1. 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 Lupillo Webster MD Thoracentesis Ultrasound 10/20/17 0600 Signed Impressions: Service Date/Time: Friday, October 20, 2017 13:03 - CONCLUSION: Uncomplicated ultrasound guided thoracentesis. Smooth Saucedo MD Chest Ultrasound 10/17/17 0000 Signed Impressions: Service Date/Time: Tuesday, October 17, 2017 20:24 - CONCLUSION: A moderate to large right pleural effusion is confirmed sonographically and marked for thoracentesis. Hector Pierre MD Chest CT 10/16/17 0000 Signed Impressions: Service Date/Time: October 20:14 - CONCLUSION: Moderate-sized bilateral pleural effusions with adjacent compressive atelectasis and/or pneumonia. Scattered increased interstitial infiltrates within the perihilar regions and upper lobes bilaterally raising the possibility of pulmonary vascular congestion. Cardiomegaly and coronary artery calcifications are noted. Mild pretracheal and AP window mediastinal lymphadenopathy which is nonspecific. Degenerative changes and mild scoliosis of the thoracic spine. Hector Pierre MD Aspiration 10/16/17 0000 Signed Impressions: Service Date/Time: October 15:48 - CONCLUSION: Uncomplicated aspiration as above. Chetan Escobedo MD Abdomen/Pelvis CT 10/16/17 0000 Signed Impressions: Service Date/Time: October 20:14 - CONCLUSION: 1. Moderate-sized bilateral pleural effusions with adjacent consolidations consistent with atelectasis and/or pneumonia. 2. Tiny calcified nonobstructing bilateral renal calculi. 3. Mild hepatosplenomegaly. 4. Uncomplicated colonic diverticulosis. 5. Minimal free fluid within the pelvis. 6. Streakiness and fluid within the bilateral retroperitoneum inferior to the kidneys and extending into the presacral region. 7. Degenerative changes and scoliosis of the thoracolumbar spine. Hector Pierre MD Knee X-Ray 10/15/17 0000 Signed Impressions: Service Date/Time: Sunday, October 15, 2017 15:26 - CONCLUSION: Large joint effusion otherwise negative. Tu Lim MD FACR Carotid Artery Ultrasound 10/13/17 0000 Signed Impressions: Service Date/Time: Friday, October 13, 2017 16:12 - CONCLUSION: No evidence of flow-limiting carotid stenosis. Wm Riley MD Aorta w/Runoff CTA 10/13/17 0000 Signed Impressions: Service Date/Time: Friday, October 13, 2017 22:41 - CONCLUSION: 1. No aortic occlusive disease. 2. No significant iliac inflow stenosis. 3. No significant outflow stenosis. 4. Diffuse bilateral runoff disease with heavily calcified tibial arteries and significant venous contamination precluding patency evaluation beyond the very proximal calf. 5. Small to moderate bilateral pleural effusions with associated airspace disease at the lung bases, presumably atelectasis. 6. Trace free fluid in the deep pelvis. 7. Ancillary findings include hepatic steatosis, nonobstructing punctate calyceal calculus in the inferior pole of the left kidney and small suprapatellar right joint effusion. Lupillo Webster MD Objective Remarks awake and alert, oriented x 3. good sats, comfortable, anicteric no nuchal rigidity lungs- no rales , no wheezes, good air entry regular rhythm abdomen- soft, nontender, good bowel sounds extremities- right knee with effusion- improving , no surrounding erythema- right foot s/p 5th toe amputation- VAC in place- lateral side of the foot sutures in place plantar aspect with dry eschar Procedures 10/08/17 Right foot and ankle incision drainage, 5th metatarsal resection, 5th digit amputation 10/25/17 Incision and drainage Right foot/ankle abscess with bone biopsy right 4th metatarsal base; wound vac placement A/P Problem List: (1) Osteomyelitis of foot ICD Code: M86.9 - Osteomyelitis, unspecified (2) Leukocytosis ICD Code: D72.829 - Elevated white blood cell count, unspecified (3) Dehydration with hyponatremia ICD Code: E87.1 - Hypo-osmolality and hyponatremia (4) Acute kidney injury ICD Code: N17.9 - Acute kidney failure, unspecified (5) Sepsis ICD Code: A41.9 - Sepsis, unspecified organism Status: Acute (6) Diabetic foot ulcer ICD Code: E11.621 - Type 2 diabetes mellitus with foot ulcer; L97.509 - Non- pressure chronic ulcer of other part of unspecified foot with unspecified severity Status: Acute (7) Acute renal failure superimposed on stage 3 chronic kidney disease ICD Code: N17.9 - Acute kidney failure, unspecified; N18.3 - Chronic kidney disease, stage 3 (moderate) (8) Bacteremia due to Gram-positive bacteria ICD Code: R78.81 - Bacteremia (9) Postoperative anemia ICD Code: D64.9 - Anemia, unspecified Assessment and Plan This is a 57-year-old male who presented with sepsis Sepsis- still with intermittent fever - Secondary to diabetic foot infection, bacteremia, right foot osteomyelitis: Appreciate infectious disease recommendations. He does have a right knee pleural effusion with no growth. -He continues to have fever but most likely drug fever. - clinically looks well though - Continue to monitor fevers. ? drug fever- clinically looks well - ff CBC Right foot osteomyelitis:S /P irrigation/debridement with wound vac placement 06/04. -Status post incision and drainage, fifth metatarsal resection, fifth digit amputation on 10/08/17. Podiatry is recommending IV antibiotics on discharge. Final antibiotic recommendations per infectious disease. Continue wound care. S - try to wean off IV pain medication. on po pain meds -Rocephin discontinued on 11/02/2017 secondary to possible drug fever. Levaquin and Zyvox DC'd 10/28/2017. Wound culture growing staph and strep not A/B/D. - New cultures obtained in surgery are growing staph aureus. - Patient on daptomycin and Levaquin - ID ff Right knee effusion:- improving -Continues to have right knee effusion but stable. Continue antibiotics. Appreciate orthopedic surgery recommendations. So far cultures are negative. Patient refusing I&D at the moment. Bilateral pleural effusion: Elevated BNP- clinically appears comfortable r/io underlying CHF- ? from high out failure from anemia - pulmonary - stable- breathing comfortably -Appreciate pulmonology recommendations. Status post right-sided thoracentesis. Cytology is negative for malignant cells. - get 2D echo - give Lasix 20 mg IV after 1 unit Peripheral vascular disease: -Appreciate vascular surgery recommendations. Per vascular surgery, no surgical intervention is planned. Postoperative anemia: H and H dropped again this am r/o GIB- black stools -Received transfusion of 2 units PRBCs. Monitor H&H. - give 1 unit RBC today - give Lasix 20 mg IV after - start PPI - GI consult- ? EGD - hold Heparin SQ Diabetes mellitus type 2: - good readings -Continue Levemir. Monitor Accu-Cheks and cover with sliding scale insulin. Continue preprandial insulin as well. Acute kidney injury superimposed on chronic kidney disease stage III- good urine out[ut -Creatinine continues to improve. Stage one pressure ulcer. -Patient needs turning every 2 hours. PT working with patient. Hypokalemia- imrpoved -Replenish as needed. DVT prophylaxis: Heparin- hold with anemia Discharge Planning Patient most likely require outpatient IV antibiotics and wound VAC changes. d/w patient- may need PICC for half-way IV antibiotic administration- refused PICC states homeless - [place] Problem Qualifiers (1) Sepsis: Qualified Codes: A41.9 - Sepsis, unspecified organism (2) Diabetic foot ulcer: Qualified Codes: E10.621 - Type 1 diabetes mellitus with foot ulcer; L97.419 - Non-pressure chronic ulcer of right heel and midfoot with unspecified severity Noni Huerta MD Nov 05, 2017 09:33
[2017-11-05] MEDS ORDERED: FUROSEMIDE 20 MG/2 ML VIAL IV PUSH ONE (09:45)
--- NOTE | 2017-11-05 10:59 | HHI.IDPN ---
Subjective Subjective Remarks ID COVERAGE Mr. Braxton is a 57-year-old male with past medical history significant for diabetes type 2, prior diabetic foot ulcer treated in October 2016 thereafter was hospitalized from May 08, 2017 to May 29, 2017 due to foot ulcer. During that hospitalization patient underwent surgical debridement with wound VAC placement. Patient reports that he was seen by Dr. Pritchard during that admission. Patient reports that he was discharged on IV ceftriaxone using a PICC line. Patient had home health care visits him and continue to receive wound VAC changes at home. He also was subsequently seen at wound care clinic for ongoing wound care as well as [facility] for his primary care needs. Patient reports that his medications were recently adjusted and a new insulin was introduced. Patient reports that he was diagnosed with a possible staph or strep infection and has been on oral Bactrim approximately 2 weeks prior to admission. Due to worsening foot infection as well as possible reaction to the new insulin patient presented to the emergency department [facility]. Patient reports that he was having fevers, chills, loss of appetite and diarrhea for the past 2 days associated with frequent urination. Patient denies any dysuria. He reports dizziness and reported history of falls 3 days ago while on the toilet. Patient's reports that she was unaware of this history of fall. He denies any head injury. Patient reports hitting his right foot and shoulder but that he was able to get off the floor by himself. Patient had a sepsis workup initiated on admission. Wound cultures are positive for strep as well as blood cultures are now positive for gram-positive likely strep. Repeat blood cultures have been ordered. Podiatry is seeing the patient and there is a plan for surgical intervention and possible amputation of the involved digit. Infectious disease is consulted for evaluation and management of right fifth toe osteomyelitis with associated cellulitis, gram-positive bacteremia and sepsis. Notes reviewed Temps low grade Getting echo done Breathing better, on nasal O2 Not coughing any phlegm BNP 576 Hgb down to 6, getting transfusion D/W Dr Huerta, stool black color No abdominal pain, or heart burn Nothing new on C/S No rash or itching WBC ok. Clinically no change hemodynamically to suggest sepsis or new infection. C/S OR Staph aureus No diarrhea ECHO no veg's. On Cubicin Levaquin added this weekend Antibiotics Cubicin Levaquin Current Medications Medications (Trade) Dose Ordered Sig/Anna Route Start Time Stop Time Status Last Admin (NS Flush) 2 ml UNSCH PRN IV FLUSH 10/07/17 16:45 10/21/17 23:13 (NS Flush) 2 ml BID IV FLUSH 10/07/17 21:00 11/05/17 08:38 (Narcan Inj) 0.4 mg UNSCH PRN IV PUSH 10/07/17 16:45 (D50w (Vial) Inj) 50 ml UNSCH PRN IV PUSH 10/08/17 10:30 (Glucagon Inj) 1 mg UNSCH PRN OTHER 10/08/17 10:30 (NovoLOG SUPPLEMENTAL SCALE) 1 ACHS SLIDING SCALE SQ 10/08/17 12:00 11/01/17 21:55 (Lactinex) 1 tab Q12HR PO 10/08/17 21:00 11/05/17 08:36 (NovoLOG INJ) 5 units TIDAC SQ 10/12/17 08:00 11/04/17 18:09 (Levemir Inj) 15 units HS SQ 10/12/17 21:00 11/04/17 21:56 (Restoril) 15 mg HS PRN PO 10/13/17 12:45 10/28/17 21:54 (Tylenol) 500 mg Q4H PRN PO 10/13/17 13:15 11/02/17 20:31 (Santyl Oint) 1 applic DAILY TOPICAL 10/22/17 12:00 11/04/17 08:53 (Neurontin) 600 mg TID PO 10/23/17 18:00 11/05/17 08:36 (Percocet 5-325 Mg) 1 tab Q4H PRN PO 10/31/17 12:15 (Percocet 10-325 Mg) 1 tab Q4H PRN PO 10/31/17 12:15 11/05/17 06:56 Daptomycin 640 mg/ Sodium Chloride 100 ml @ 200 mls/hr Q24H IV 10/31/17 16:00 11/04/17 15:03 (Levaquin) 750 mg DAILY PO 11/02/17 16:00 11/05/17 08:36 (Morphine Inj) 1 mg Q4H PRN IV PUSH 11/04/17 08:30 11/05/17 08:37 (Morphine Inj) 2 mg BID PRN IV PUSH 11/04/17 08:30 11/04/17 21:58 (Protonix Inj) 40 mg DAILY IV PUSH 11/05/17 09:45 Lines Line sites with no e.o infection Past Medical History Past Medical History DM II Right foot ulcer with possible osteomyelitis in the past. Has received IV antibiotics long-term using a PICC line in the past. Renal stones Past Surgical History Right foot debridement of wound removal of kidney stones Tonsillitis Allergies: Coded Allergies: No Known Allergies (Unverified Adverse Reaction, Unknown, 09/15/17) Uncoded Allergies: moldovan dressing (Allergy, Severe, Anaphylaxis, 10/07/17) Objective . Vital Signs Date Time Temp Pulse Resp B/P (MAP) Pulse Ox O2 Delivery O2 Flow Rate FiO2 11/05/17 08:37 20 11/05/17 08:20 100.0 104 20 114/64 97 11/05/17 08:04 100.0 104 20 114/64 (81) 97 11/05/17 08:00 Nasal Cannula 2.00 11/05/17 03:32 Nasal Cannula 2.00 11/05/17 03:31 98.3 94 20 123/68 (86) 98 11/05/17 00:00 100.8 111 20 114/58 (76) 90 11/05/17 00:00 93 Nasal Cannula 2.00 11/04/17 20:00 Room Air 11/04/17 19:41 99.0 105 20 106/59 (75) 95 11/04/17 16:00 99.0 99 20 115/57 (76) 95 11/04/17 16:00 99.0 99 20 115/57 (76) 95 11/04/17 12:00 99.6 100 20 124/68 (86) 98 11/05/17 11/05/17 11/06/17 15:00 23:00 07:00 Intake Total 20 ml Output Total 500 ml Balance -480 ml Blood Product IV Normal Saline Flush 20 ml Output Urine Total 500 ml . Laboratory Tests Test 11/05/17 06:33 White Blood Count 8.0 TH/MM3 Red Blood Count 2.44 MIL/MM3 Hemoglobin 6.7 GM/DL Hematocrit 19.6 % Mean Corpuscular Volume 80.5 FL Mean Corpuscular Hemoglobin 27.3 PG Mean Corpuscular Hemoglobin Concent 33.9 % Red Cell Distribution Width 15.3 % Platelet Count 343 TH/MM3 Mean Platelet Volume 7.3 FL Neutrophils (%) (Auto) 66.8 % Lymphocytes (%) (Auto) 21.1 % Monocytes (%) (Auto) 9.7 % Eosinophils (%) (Auto) 1.3 % Basophils (%) (Auto) 1.1 % Neutrophils # (Auto) 5.3 TH/MM3 Lymphocytes # (Auto) 1.7 TH/MM3 Monocytes # (Auto) 0.8 TH/MM3 Eosinophils # (Auto) 0.1 TH/MM3 Basophils # (Auto) 0.1 TH/MM3 CBC Comment DIFF FINAL Differential Comment Laboratory Tests Test 11/04/17 14:25 11/05/17 06:23 11/05/17 06:33 Total Creatine Kinase 177 U/L B-Type Natriuretic Peptide 576 PG/ML Blood Urea Nitrogen 18 MG/DL Creatinine 1.08 MG/DL Random Glucose 83 MG/DL Calcium Level 8.4 MG/DL Sodium Level 136 MEQ/L Potassium Level 4.4 MEQ/L Chloride Level 101 MEQ/L Carbon Dioxide Level 26.4 MEQ/L Anion Gap 9 MEQ/L Estimat Glomerular Filtration Rate 70 ML/MIN Iron Level 13 MCG/DL Total Iron Binding Capacity 206 MCG/DL Percent Iron Saturation 6.3 % Ferritin 412 NG/ML Vitamin B12 Level 1583 PG/ML Folate GREATER THAN 20.0 NG/ML Microbiology Date/Time Source Procedure Growth Status 11/05/17 10:00 Stool Stool Stool Occult Blood (MILA) Pending Received Imaging Chest X-Ray 10/30/17 0000 Signed Impressions: Service Date/Time: October 13:55 - CONCLUSION: 1. Consolidation of the left lower lobe. This would be concerning for a pneumonia. 2. Focal area of infiltrate seen in the left perihilar region. Raghavendra Lim MD Foot X-Ray 10/23/17 0000 Signed Impressions: Service Date/Time: October 17:15 - CONCLUSION: 1. 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 Lupillo Webster MD Chest X-Ray 10/22/17 0000 Signed Impressions: Service Date/Time: Sunday, October 22, 2017 09:07 - CONCLUSION: 1. Bilateral infiltrates and effusion. The exam has worsen when compared to previous dated 10/20/17. Raghavendra Lim MD Thoracentesis Ultrasound 10/20/17 0600 Signed Impressions: Service Date/Time: Friday, October 20, 2017 13:03 - CONCLUSION: Uncomplicated ultrasound guided thoracentesis. Smooth Saucedo MD Chest Ultrasound 10/17/17 0000 Signed Impressions: Service Date/Time: Tuesday, October 17, 2017 20:24 - CONCLUSION: A moderate to large right pleural effusion is confirmed sonographically and marked for thoracentesis. Hector Pierre MD Chest CT 10/16/17 0000 Signed Impressions: Service Date/Time: October 20:14 - CONCLUSION: Moderate-sized bilateral pleural effusions with adjacent compressive atelectasis and/or pneumonia. Scattered increased interstitial infiltrates within the perihilar regions and upper lobes bilaterally raising the possibility of pulmonary vascular congestion. Cardiomegaly and coronary artery calcifications are noted. Mild pretracheal and AP window mediastinal lymphadenopathy which is nonspecific. Degenerative changes and mild scoliosis of the thoracic spine. Hector Pierre MD Aspiration 10/16/17 0000 Signed Impressions: Service Date/Time: October 15:48 - CONCLUSION: Uncomplicated aspiration as above. Chetan Escobedo MD Abdomen/Pelvis CT 10/16/17 0000 Signed Impressions: Service Date/Time: October 20:14 - CONCLUSION: 1. Moderate-sized bilateral pleural effusions with adjacent consolidations consistent with atelectasis and/or pneumonia. 2. Tiny calcified nonobstructing bilateral renal calculi. 3. Mild hepatosplenomegaly. 4. Uncomplicated colonic diverticulosis. 5. Minimal free fluid within the pelvis. 6. Streakiness and fluid within the bilateral retroperitoneum inferior to the kidneys and extending into the presacral region. 7. Degenerative changes and scoliosis of the thoracolumbar spine. Hector Pierre MD Knee X-Ray 10/15/17 0000 Signed Impressions: Service Date/Time: Sunday, October 15, 2017 15:26 - CONCLUSION: Large joint effusion otherwise negative. Tu Lim MD FACR Carotid Artery Ultrasound 10/13/17 0000 Signed Impressions: Service Date/Time: Friday, October 13, 2017 16:12 - CONCLUSION: No evidence of flow-limiting carotid stenosis. Wm Riley MD Aorta w/Runoff CTA 10/13/17 0000 Signed Impressions: Service Date/Time: Friday, October 13, 2017 22:41 - CONCLUSION: 1. No aortic occlusive disease. 2. No significant iliac inflow stenosis. 3. No significant outflow stenosis. 4. Diffuse bilateral runoff disease with heavily calcified tibial arteries and significant venous contamination precluding patency evaluation beyond the very proximal calf. 5. Small to moderate bilateral pleural effusions with associated airspace disease at the lung bases, presumably atelectasis. 6. Trace free fluid in the deep pelvis. 7. Ancillary findings include hepatic steatosis, nonobstructing punctate calyceal calculus in the inferior pole of the left kidney and small suprapatellar right joint effusion. Lupillo Webster MD Foot MRI 10/12/17 0000 Signed Impressions: Service Date/Time: Thursday, October 12, 2017 08:31 - CONCLUSION: 1. No areas of suspected osteomyelitis. 2. Superficial soft tissue swelling over the third and fourth metatarsals. There is also some edema within the plantar musculature. Wm Dupree MD Ankle MRI 10/11/17 0000 Signed Impressions: Service Date/Time: Wednesday, October 11, 2017 09:41 - CONCLUSION: 1. No definite areas of osteomyelitis. There is some edema within the lateral cuboid adjacent to the suspected surgical defect which is likely reactive. T1 signal is maintained. 2. Multiple areas of focal edema within the midfoot mainly related to the subarticular regions likely related to underlying arthritic change. 3. The patient appears to be status post resection of the fifth metatarsal with post surgical change at the lateral hind and midfoot and a small focus of air seen adjacent to the calcaneus. Wm Dupree MD Physical Exam GENERAL: awake and alert, NAD SKIN: Cool and dry. No generalized rash HEAD: Atraumatic. Normocephalic. No temporal or scalp tenderness. EYES: Pupils equal round and reactive. EOM full and intact. No scleral icterus. No injection or drainage. ENT: Moist mucosa, no lesions, no oral thrush NECK: Trachea midline.Supple, nontender CARDIOVASCULAR: Heart sounds audible. RESPIRATORY: basilar crackles. Breath sounds decreased bilateral bases. GASTROINTESTINAL: Abdomen soft, non-tender, nondistended. MUSCULOSKELETAL: Right foot with wound vac. Left foot in dressing. NEUROLOGICAL: Awake and alert. Nonfocal exam Psych cooperative IV line sites with no evidence of infection. Assessment & Plan Remarks Sepsis present on admission Strep bacteremia secondary to right foot osteomyelitis and cellulitis Staph MSSA bacteremia high grade. Strep not AB,D and Staph infection Right foot fifth MPJ osteomyelitis Right foot cellulitis Pneumonia with bilateral pleural effusions ? HCAP vs septic emboli. Right knee septic arthritis. Diabetes type 2 uncontrolled Acute renal failure: Sepsis, prerenal: improving Fevers, not as high - non-localizing - ?drug fever Anemia Recommendations: Continue Cubicin - follow CPK Also on Levaquin - started this weekend Monitor temps Monitor progress D/W patient D/W Dr Deanna Anderson will be off Nov 06- Dr Essence Quinteros back Nov 10 Marci Bocanegra MD Nov 05, 2017 10:59
[2017-11-05] MEDS: PANTOPRAZOLE SODIUM 40 MG VIAL IV PUSH SCH (12:36)
[2017-11-05] MEDS ORDERED: PEG (High)/E-LYTE SOLN 4000 ML BTL PO ONE (15:00)
--- NOTE | 2017-11-05 15:04 | PD.CONS ---
HPI History of Present Illness This is a 57 year old male with DM who was referred by [facility] for diabetic foot ulcer. GI has been consulted for anemia and to r/o GIB. Reportedly he has been having black tarry stool for the last 1-2 weeks. He is unaware of any stool color as he does nto se ehis stool. NO report of lee bleeding. He denies abd pain, n/v. Denies hx GIB, ulcers, use NSAIDs. Prior heavy drinker but quit 15 y ago. Never had EGD or colonoscopy. (Ping Chapman) PFS Past Medical History DM II Renal stones Past Surgical History Right foot debridement of wound removal of kidney stones Tonsillitis wound vac (Ping Chapman) Coded Allergies: No Known Allergies (Unverified Adverse Reaction, Unknown, 09/15/17) Uncoded Allergies: mauritian dressing (Allergy, Severe, Anaphylaxis, 10/07/17) Family History Father side: DM Social History Tobacco: quit 04/2017 Alcohol: sober for 21 years Illicit drug use: denies Lives with mother at the moment, . (Ping Chapman) Review of Systems Constitutional: DENIES: Fever Endocrine: DENIES: Polydipsia Eyes: DENIES: Blurred vision Ears, nose, mouth, throat: DENIES: Hearing loss Respiratory: DENIES: Cough Cardiovascular: DENIES: Chest pain Gastrointestinal: COMPLAINS OF: Black stools, DENIES: Abdominal pain, Bloody stools, Nausea, Vomiting Genitourinary: DENIES: Hematuria Musculoskeletal: COMPLAINS OF: Joint pain Integumentary: DENIES: Abnormal pigmentation Hematologic/lymphatic: DENIES: Bruising Immunologic/allergic: DENIES: Eczema Neurologic: COMPLAINS OF: Abnormal gait Psychiatric: DENIES: Confusion (Ping Chapman) GI Exam Vitals I&O Vital Signs Date Time Temp Pulse Resp B/P (MAP) Pulse Ox O2 Delivery O2 Flow Rate FiO2 11/05/17 12:51 18 11/05/17 12:36 18 11/05/17 12:04 99.5 104 20 129/74 (92) 98 11/05/17 08:20 100.0 104 20 114/64 97 11/05/17 08:04 100.0 104 20 114/64 (81) 97 11/05/17 08:00 Nasal Cannula 2.00 11/05/17 03:32 Nasal Cannula 2.00 11/05/17 03:31 98.3 94 20 123/68 (86) 98 11/05/17 00:00 100.8 111 20 114/58 (76) 90 11/05/17 00:00 93 Nasal Cannula 2.00 11/04/17 20:00 Room Air 11/04/17 19:41 99.0 105 20 106/59 (75) 95 11/04/17 16:00 99.0 99 20 115/57 (76) 95 11/04/17 16:00 99.0 99 20 115/57 (76) 95 I/O 11/04/17 11/04/17 11/04/17 11/05/17 11/05/17 11/05/17 07:00 15:00 23:00 07:00 15:00 23:00 Intake Total 640 ml 480 ml 200 ml 420 ml Output Total 1100 ml 600 ml 500 ml Balance -460 ml -120 ml 200 ml -80 ml Intake Oral 640 ml 480 ml IV Total 200 ml Packed Cells 400 ml Blood Product IV Normal Saline Flush 20 ml Output Urine Total 1100 ml 600 ml 500 ml Imaging Last Impressions Chest X-Ray 11/04/17 0000 Signed Impressions: Service Date/Time: Saturday, November 04, 2017 12:29 - CONCLUSION: 1. Cardiomegaly with bilateral perihilar edema greater on the left, likely from CHF and pulmonary edema. 2. Underlying infiltrate cannot be excluded. Jairon Malcolm MD Lower Extremity Ultrasound 10/28/17 0000 Signed Impressions: Service Date/Time: Saturday, October 28, 2017 16:26 - CONCLUSION: 1. Negative for deep venous thrombosis. Mildly enlarged right inguinal lymph nodes. Francisco Grider MD Foot MRI 10/24/17 0000 Signed Impressions: Service Date/Time: Tuesday, October 24, 2017 10:08 - CONCLUSION: 1. Marrow edema and mild marrow enhancement in the proximal fourth metatarsal suspicious for an early osteomyelitis. 2. Complex fluid collection in the lateral foot near the base of the fourth metatarsal, probably an abscess with surrounding cellulitis. 3. Extensive marrow edema in the midfoot as above, probably reactive. Patchy low signal in the navicular and cuboid may indicate some avascular necrosis. 4. Postoperative resection of the fifth toe and fifth metatarsal. Francisco Grider MD Ankle MRI 10/24/17 0000 Signed Impressions: Service Date/Time: Tuesday, October 24, 2017 10:08 - CONCLUSION: 1. No definite evidence for osteomyelitis around the right ankle. Marrow edema however has increased slightly since the prior exam, probably reactive and possibly associated with a developing Charcot arthropathy. Low signal patchy areas within the tarsal navicular are suspicious for developing avascular necrosis. There is edema in the soft tissues of the hindfoot. Trace joint fluid. Francisco Grider MD Foot X-Ray 10/23/17 0000 Signed Impressions: Service Date/Time: October 17:15 - CONCLUSION: 1. 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 Lupillo Webster MD Thoracentesis Ultrasound 10/20/17 0600 Signed Impressions: Service Date/Time: Friday, October 20, 2017 13:03 - CONCLUSION: Uncomplicated ultrasound guided thoracentesis. Smooth Saucedo MD Chest Ultrasound 10/17/17 0000 Signed Impressions: Service Date/Time: Tuesday, October 17, 2017 20:24 - CONCLUSION: A moderate to large right pleural effusion is confirmed sonographically and marked for thoracentesis. Hector Pierre MD Chest CT 10/16/17 0000 Signed Impressions: Service Date/Time: October 20:14 - CONCLUSION: Moderate-sized bilateral pleural effusions with adjacent compressive atelectasis and/or pneumonia. Scattered increased interstitial infiltrates within the perihilar regions and upper lobes bilaterally raising the possibility of pulmonary vascular congestion. Cardiomegaly and coronary artery calcifications are noted. Mild pretracheal and AP window mediastinal lymphadenopathy which is nonspecific. Degenerative changes and mild scoliosis of the thoracic spine. Hector Pierre MD Aspiration 10/16/17 0000 Signed Impressions: Service Date/Time: October 15:48 - CONCLUSION: Uncomplicated aspiration as above. Chetan Escobedo MD Abdomen/Pelvis CT 10/16/17 0000 Signed Impressions: Service Date/Time: October 20:14 - CONCLUSION: 1. Moderate-sized bilateral pleural effusions with adjacent consolidations consistent with atelectasis and/or pneumonia. 2. Tiny calcified nonobstructing bilateral renal calculi. 3. Mild hepatosplenomegaly. 4. Uncomplicated colonic diverticulosis. 5. Minimal free fluid within the pelvis. 6. Streakiness and fluid within the bilateral retroperitoneum inferior to the kidneys and extending into the presacral region. 7. Degenerative changes and scoliosis of the thoracolumbar spine. Hector Pierre MD Knee X-Ray 10/15/17 0000 Signed Impressions: Service Date/Time: Sunday, October 15, 2017 15:26 - CONCLUSION: Large joint effusion otherwise negative. Tu Lim MD FACR Carotid Artery Ultrasound 10/13/17 0000 Signed Impressions: Service Date/Time: Friday, October 13, 2017 16:12 - CONCLUSION: No evidence of flow-limiting carotid stenosis. Wm Riley MD Aorta w/Runoff CTA 10/13/17 0000 Signed Impressions: Service Date/Time: Friday, October 13, 2017 22:41 - CONCLUSION: 1. No aortic occlusive disease. 2. No significant iliac inflow stenosis. 3. No significant outflow stenosis. 4. Diffuse bilateral runoff disease with heavily calcified tibial arteries and significant venous contamination precluding patency evaluation beyond the very proximal calf. 5. Small to moderate bilateral pleural effusions with associated airspace disease at the lung bases, presumably atelectasis. 6. Trace free fluid in the deep pelvis. 7. Ancillary findings include hepatic steatosis, nonobstructing punctate calyceal calculus in the inferior pole of the left kidney and small suprapatellar right joint effusion. Lupillo Webster MD Laboratory Test 11/05/17 06:23 11/05/17 06:33 B-Type Natriuretic Peptide 576 PG/ML White Blood Count 8.0 TH/MM3 Red Blood Count 2.44 MIL/MM3 Hemoglobin 6.7 GM/DL Hematocrit 19.6 % Mean Corpuscular Volume 80.5 FL Mean Corpuscular Hemoglobin 27.3 PG Mean Corpuscular Hemoglobin Concent 33.9 % Red Cell Distribution Width 15.3 % Platelet Count 343 TH/MM3 Mean Platelet Volume 7.3 FL Neutrophils (%) (Auto) 66.8 % Lymphocytes (%) (Auto) 21.1 % Monocytes (%) (Auto) 9.7 % Eosinophils (%) (Auto) 1.3 % Basophils (%) (Auto) 1.1 % Neutrophils # (Auto) 5.3 TH/MM3 Lymphocytes # (Auto) 1.7 TH/MM3 Monocytes # (Auto) 0.8 TH/MM3 Eosinophils # (Auto) 0.1 TH/MM3 Basophils # (Auto) 0.1 TH/MM3 CBC Comment DIFF FINAL Differential Comment Blood Urea Nitrogen 18 MG/DL Creatinine 1.08 MG/DL Random Glucose 83 MG/DL Calcium Level 8.4 MG/DL Sodium Level 136 MEQ/L Potassium Level 4.4 MEQ/L Chloride Level 101 MEQ/L Carbon Dioxide Level 26.4 MEQ/L Anion Gap 9 MEQ/L Estimat Glomerular Filtration Rate 70 ML/MIN Iron Level 13 MCG/DL Total Iron Binding Capacity 206 MCG/DL Percent Iron Saturation 6.3 % Ferritin 412 NG/ML Vitamin B12 Level 1583 PG/ML Folate GREATER THAN 20.0 NG/ML Date/Time Source Procedure Growth Status 10/31/17 14:46 Blood Peripheral Aerobic Blood Culture - Final NO GROWTH IN 5 DAYS Complete 10/31/17 14:46 Blood Peripheral Anaerobic Blood Culture - Final NO GROWTH IN 5 DAYS Complete 10/20/17 14:25 Fluid Pleural Fluid Fungal Smear - Final NO FUNGAL ELEMENTS SEEN. Resulted 10/20/17 14:25 Fluid Pleural Fluid Fungal Culture - Preliminary NO GROWTH IN 2 WEEKS Resulted 11/05/17 10:00 Stool Stool Stool Occult Blood (MILA) - Final HEMOCCULT NEGATIVE Complete 10/25/17 08:55 Wound Foot Fungal Smear - Final NO FUNGAL ELEMENTS SEEN. Resulted 10/25/17 08:55 Wound Foot Fungal Culture - Preliminary NO GROWTH IN 1 WEEK Resulted Physical Examination HEENT: PERRL; normocephalic; atraumatic; no jaundice. poor dentition CHEST: CTA CARDIAC: RRR ABDOMEN: Soft, nondistended, nontender; no hepatosplenomegaly; bowel sounds are present in all four quadrants. EXTREMITIES: No clubbing, cyanosis, or edema. wound vac right foot SKIN: Normal; no rash; no jaundice. FELLED SEAM OPERATOR: No focal deficits; alert and oriented times three. (Ping Chapman PRESERVATIVE FILLER MACHINE OPERATOR) Assessment and Plan Plan ASSESSMENT - anemia, black tarry stool - HH trending down. heme occult pending. normocytic anemia. report black stool for last week. no obvious bleeding. no prior hx GIB. never had EGD or colonoscopy PLAN - EGD and colonoscopy in am - obtain consent - clears today - NPO after midnight - GoLytely - notify GI of active bleeding - monitor HH pt seen by myself and dr Sewell and this note is on her behalf (Ping Chapman) Physician Comments seen, examined agree with above (Cheri Sewell MD) Ping Chapman Nov 05, 2017 15:04 Cheri Sewell MD Nov 05, 2017 19:14
[2017-11-05] MEDS: SODIUM CHLORIDE 0.9% IV SCH (15:39)
[2017-11-05] MEDS: DAPTOMYCIN IV SCH (15:39)
--- NOTE | 2017-11-05 19:36 | ECHRPT ---
Indication: HEART FAILURE CONCLUSIONS Normal left ventricular size. Wall thickness is normal. The left ventricular systolic function is low normal with an estimated ejection fraction of 50%. Mitral annular calcification is present. Aortic valve sclerosis is present. There is trace tricuspid valve regurgitation. The estimated pulmonary arterial pressure is 36 mmHg. There is a trivial pericardial effusion present. BP: / HR: Rhythm: MEASUREMENTS (Male / Female) Normal Values Technical Quality:Good 2D ECHO LV Diastolic Diameter PLAX 4.5 cm 4.2 - 5.9 / 3.9 - 5.3 cm LV Systolic Diameter PLAX 3.6 cm IVS Diastolic Thickness 1.1 cm 0.6 - 1.0 / 0.6 - 0.9 cm LVPW Diastolic Thickness 0.7 cm 0.6 - 1.0 / 0.6 - 0.9 cm LV Relative Wall Thickness 0.4 LA Systolic Diameter LX 4.1 cm 3.0 - 4.0 / 2.7 - 3.8 cm M-MODE Aortic Root Diameter MM 3.8 cm AV Cusp Separation MM 1.9 cm DOPPLER Mitral E Point Velocity 98.2 cm/s Mitral A Point Velocity 105.0 cm/s Mitral E to A Ratio 0.9 TR Peak Velocity 278.0 cm/s TR Peak Gradient 30.9 mmHg Right Atrial Pressure 5.0 mmHg Pulmonary Artery Systolic Pressu 35.9 mmHg Right Ventricular Systolic Press 35.9 mmHg FINDINGS LEFT VENTRICLE Normal left ventricular size. Wall thickness is normal. The left ventricular systolic function is low normal with an estimated ejection fraction in the rang e of 50%. RIGHT VENTRICLE Normal right ventricular size and systolic function. LEFT ATRIUM The left atrial size is normal. RIGHT ATRIUM The right atrial size is normal. ATRIAL SEPTUM Normal atrial septal thickness without atrial level shunting by limited color doppler interrogation. AORTA The aortic root and proximal ascending aorta are normal in size on limited imaging. MITRAL VALVE Mitral annular calcification is present. AORTIC VALVE Aortic valve sclerosis is present. TRICUSPID VALVE There is trace tricuspid valve regurgitation. The estimated pulmonary arterial pressure is 35.9 mmHg. PULMONARY VALVE No pulmonary valve regurgitation or stenosis. VESSELS The inferior vena cava is normal in size. PERICARDIUM There is a trivial pericardial effusion present. Lotus Lal MD, FACC (Electronically Signed) Final Date:05 November 2017 19:35
--- NOTE | 2017-11-05 20:27 | HHI.PR ---
Subjective Remarks 57 YOWm with DM,Diabetic foot ulcer,Pl eff, Lung infilt US chest Mod to large Rt Pl eff no Fever Breathiing better Pl fluid cytology neg uses 02 off and on has GIB Received 1 unit PRBC Objective Vital Signs Vital Signs Date Time Temp Pulse Resp B/P (MAP) Pulse Ox O2 Delivery O2 Flow Rate FiO2 11/05/17 19:25 99.3 96 12 119/62 (81) 95 11/05/17 16:41 18 11/05/17 16:00 97.0 97 16 122/62 (82) 96 11/05/17 12:51 18 11/05/17 12:04 99.5 104 20 129/74 (92) 98 11/05/17 08:20 100.0 104 20 114/64 97 11/05/17 08:04 100.0 104 20 114/64 (81) 97 11/05/17 08:00 Nasal Cannula 2.00 11/05/17 03:32 Nasal Cannula 2.00 11/05/17 03:31 98.3 94 20 123/68 (86) 98 11/05/17 00:00 100.8 111 20 114/58 (76) 90 11/05/17 00:00 93 Nasal Cannula 2.00 I/O 11/04/17 11/04/17 11/04/17 11/05/17 11/05/17 11/05/17 07:00 15:00 23:00 07:00 15:00 23:00 Intake Total 640 ml 480 ml 200 ml 420 ml 480 ml Output Total 1100 ml 600 ml 500 ml 1300 ml Balance -460 ml -120 ml 200 ml -80 ml -820 ml Intake Oral 640 ml 480 ml 380 ml IV Total 200 ml 100 ml Packed Cells 400 ml Blood Product IV Normal Saline Flush 20 ml Output Urine Total 1100 ml 600 ml 500 ml 1300 ml Drainage Total 0 ml # Bowel Movements 1 Result Diagram: 11/05/1763211/05/17632 Objective Remarks GENERAL: WBWN WM,NAD SKIN: Warm and dry. HEAD: Normocephalic. EYES: No scleral icterus. No injection or drainage. NECK: Supple, trachea midline. No JVD or lymphadenopathy. CARDIOVASCULAR: Regular rate and rhythm without murmurs, gallops, or rubs. RESPIRATORY: Breath sounds equal bilaterally. No accessory muscle use. Decreased BS at Bases GASTROINTESTINAL: Abdomen soft, non-tender, nondistended. MUSCULOSKELETAL: No cyanosis, or edema. Foot ulcer, VAC device BACK: Nontender without obvious deformity. No CVA tenderness. A/P Assessment and Plan Bilat Pl effusion Lung infilt/ septic emboli DM Foot Ulcer PLAN: Pl fluid cytology, cultures neg Cont Abx Cubicin and Levaquin per ID Supplement 02 to keep sat >90% Going for Endoscopy in [place] Dang MD Nov 05, 2017 20:27
[2017-11-05] MEDS: INSULIN DETEMIR 100 UNITS/ML VIAL SQ SCH (21:00)
[2017-11-05 22:02] LABS: HEMATOCRIT 22.9 % (39.0-51.0); HEMOGLOBIN 7.9 GM/DL (13.0-17.0); MEAN CELL VOLUME 80.3 FL (80.0-100.0); MEAN CORPUSCULAR HEMOGLOBIN 27.7 PG (27.0-34.0); MEAN CORPUSCULAR HGB CONC 34.5 % (32.0-36.0); MEAN PLATELET VOLUME 7.5 FL (7.0-11.0); PLATELET COUNT 361 TH/MM3 (150-450); RED BLOOD COUNT 2.86 MIL/MM3 (4.50-5.90); RED CELL DISTRIBUTION WIDTH 15.5 % (11.6-17.2); WHITE BLOOD COUNT 8.4 TH/MM3 (4.0-11.0)
[2017-11-06] VITALS: BP 125/89; PULSE 89; RESP 19; TEMP 98.9; O2SAT 99
[2017-11-06] MEDS: oxyCODONE/ACETAMINOPHEN 10 MG/325 MG TAB PO PRN ×6 (01:03→22:18)
[2017-11-06] MEDS: MORPHINE SULFATE 2 MG/ML SYRINGE IV PUSH PRN ×5 (03:19→20:57)
[2017-11-06 04:00] VITALS: BP 120/90; PULSE 88; RESP 18; TEMP 97.7; O2SAT 100
--- NOTE | 2017-11-06 07:30 | MP ---
cc: Heidi Handy IVONNE DATE OF OPERATION: 10/25/2017 INDICATION FOR PROCEDURE: The patient has been in the hospital for an extended period of time with right foot and ankle infection. He was noted to have right foot and ankle abscess upon dressing change. The wound VAC was discontinued at that time. I came and examined the wound to the right lateral foot and ordered a repeat MRI which showed consistent changes that might be osteomyelitis of the fourth metatarsal and possibly the cuboid. I discussed with the patient, we needed to take a bone biopsy and irrigate and debride all of the infectious material and essentially do another I and D of the right foot any potential infection because it looked like it might be becoming more intense at that time, which would decrease his ability to continue with limb salvage. He agreed to move forward with incision and drainage of right foot and ankle abscess with a bone biopsy. DESCRIPTION OF PROCEDURE: He was seen in preop holding by myself, nursing staff and anesthesia, where the correct patient, side, and site were all confirmed to be correct and the right foot and ankle. He was then taken to the surgical suite in supine position. The right foot and ankle were prepped and draped in normal sterile fashion followed by attention directed to the lateral aspect of the foot. The sutures from the previous I and D approximately [address] Aguayo were removed. There was purulent drainage noted coming from the central aspect of the lateral foot and the wound was opened both laterally and distally. Another incision was made proximally to extend the area with a #15 blade to access the path of the purulent drainage along the peroneal tendons toward the plantar foot. Fibrotic and purulent material were excisionally debrided with a #15 blade, rongeur, curet as well as irrigation of the area with 6 liters normal sterile saline. A bone biopsy was taken from the fourth metatarsal base area. A culture was taken from the lateral aspect of the fourth metatarsal base as well. Wound VAC was then applied to the lateral foot maintained at 125 mmHg medium continuous setting. The residual wound to the right lateral foot was noted to be approximately 17 x 5 x 2.5 cm in depth with exposed tendon and bone of the cuboid fourth metatarsal base areas. No necrotic tissue was noted within the wound following the procedure, and there was noted to be healthy bleeding base. There was also noted to be a plantar ulceration 3.5 x 2.5 x 0.3 cm with fibrotic base. Excisional debridement was performed of this ulceration with a #15 blade with curettage down to healthy bleeding granular subcutaneous tissue. There was also noted to be a dorsomedial right foot ulceration approximately 2.5 x 1 x 0.4 cm with fibrotic base as well. Excisional debridement was also performed of the ulceration with a #15 blade and curettage down to healthy bleeding granular base. The skin margins were made acute and reapproximation of the area with a 2-0 nylon suture was performed after irrigation with normal saline and sutures were placed in the area to the dorsal foot. Dressing was applied to the plantar and medial wound sites with Xeroform, 4 x 4s, cast padding, ABD and Franklin bandage with the wound VAC settings as above. The patient tolerated the procedure and anesthesia well without complications and was taken to the PACU with vital signs stable and vascular status intact to the remainder of the right foot. He will be nonweightbearing to the right foot. We will await bone biopsy to determine the further course of treatment. SHORT OPERATIVE NOTE SURGEON: Heidi Handy DPM DRIVER LICENSE EXAMINER: Staff. PREOPERATIVE DIAGNOSES: 1. Right foot and ankle abscess. 2. Right fourth metatarsal osteomyelitis. POSTOPERATIVE DIAGNOSES: 1. Right foot and ankle abscess. 2. Right fourth metatarsal osteomyelitis. PROCEDURE PERFORMED: Incision and drainage, right foot and ankle abscess with bone biopsy and ulcer debridement, right foot. SPECIMENS REMOVED: 1. Culture right foot. 2. Bone biopsy, right fourth metatarsal. ESTIMATED BLOOD LOSS: 10 mL. ANESTHESIA: General endotracheal anesthesia. TOURNIQUET TIME: Not applicable. CONDITION: Stable to PACU. DISPOSITION: Nonweightbearing right lower extremity. Await bone biopsies. IVONNE Benito/JULIENNE , 06:45 AM , 07:29 AM
[2017-11-06 07:40] LABS: AUTOMATED NEUTROPHIL # 6.6 TH/MM3 (1.8-7.7); BASOPHIL % 0.3 % (0.0-2.0); EOSINOPHIL # 0.1 TH/MM3 (0-0.4); EOSINOPHIL % 1.3 % (0.0-4.0); HEMATOCRIT 21.2 % (39.0-51.0); HEMOGLOBIN 7.2 GM/DL (13.0-17.0); LYMPH % 13.1 % (9.0-44.0); LYMPHOCYTE # 1.1 TH/MM3 (1.0-4.8); MEAN CELL VOLUME 81.3 FL (80.0-100.0); MEAN CORPUSCULAR HEMOGLOBIN 27.7 PG (27.0-34.0); MEAN CORPUSCULAR HGB CONC 34.1 % (32.0-36.0); MEAN PLATELET VOLUME 7.5 FL (7.0-11.0); MONO % 7.3 % (0.0-8.0); MONOCYTE # 0.6 TH/MM3 (0-0.9); PLATELET COUNT 345 TH/MM3 (150-450); RED BLOOD COUNT 2.61 MIL/MM3 (4.50-5.90); RED CELL DISTRIBUTION WIDTH 15.8 % (11.6-17.2); WHITE BLOOD COUNT 8.4 TH/MM3 (4.0-11.0)
[2017-11-06 07:57] LABS: BICARBONATE 25.6 MEQ/L (21.0-32.0); CALCIUM 8.3 MG/DL (8.5-10.1); CREATININE 0.99 MG/DL (0.60-1.30)
[2017-11-06 08:00] VITALS: BP 129/66; PULSE 89; RESP 16; TEMP 98.7; O2SAT 96
[2017-11-06] MEDS: INSULIN ASPART SUPPLEMENTAL SCALE SQ SCH ×4 (08:00→20:57)
[2017-11-06] MEDS: INSULIN ASPART 1,000 UNITS/10 ML VIAL SQ SCH ×3 (08:00→17:00)
--- NOTE | 2017-11-06 08:55 | HHI.PR ---
Subjective Remarks breathing much better no complains of abdominal pain, nausea or vomiting voiding well no pain complains patient was not aware that he had to finish the prep- overnight- states he did not refused agreest o have it done tomorrow and will take prep Objective Vitals Vital Signs Date Time Temp Pulse Resp B/P (MAP) Pulse Ox O2 Delivery O2 Flow Rate FiO2 11/06/17 08:18 Nasal Cannula 2.00 11/06/17 08:00 98.7 89 16 129/66 (87) 96 11/06/17 04:00 Nasal Cannula 2.00 11/06/17 04:00 97.7 88 18 120/90 (100) 100 11/06/17 00:00 Nasal Cannula 2.00 11/06/17 00:00 Nasal Cannula 2.00 11/06/17 00:00 98.9 89 19 125/89 (101) 99 11/05/17 20:00 Nasal Cannula 2.00 11/05/17 19:25 99.3 96 12 119/62 (81) 95 11/05/17 16:41 18 11/05/17 16:00 97.0 97 16 122/62 (82) 96 11/05/17 12:51 18 11/05/17 12:04 99.5 104 20 129/74 (92) 98 I/O 11/05/17 11/05/17 11/05/17 11/06/17 11/06/17 11/06/17 07:00 15:00 23:00 07:00 15:00 23:00 Intake Total 420 ml 480 ml 1200 ml Output Total 500 ml 1300 ml 1200 ml Balance -80 ml -820 ml 0 ml Intake Oral 380 ml 1200 ml IV Total 100 ml Packed Cells 400 ml Blood Product IV Normal Saline Flush 20 ml Output Urine Total 500 ml 1300 ml 1200 ml Drainage Total 0 ml # Bowel Movements 1 12 Result Diagram: 11/06/17 0640 11/06/17 0640 Imaging Last Impressions Chest X-Ray 11/04/17 0000 Signed Impressions: Service Date/Time: Saturday, November 04, 2017 12:29 - CONCLUSION: 1. Cardiomegaly with bilateral perihilar edema greater on the left, likely from CHF and pulmonary edema. 2. Underlying infiltrate cannot be excluded. Jairon Malcolm MD Lower Extremity Ultrasound 10/28/17 0000 Signed Impressions: Service Date/Time: Saturday, October 28, 2017 16:26 - CONCLUSION: 1. Negative for deep venous thrombosis. Mildly enlarged right inguinal lymph nodes. Francisco Grider MD Foot MRI 10/24/17 0000 Signed Impressions: Service Date/Time: Tuesday, October 24, 2017 10:08 - CONCLUSION: 1. Marrow edema and mild marrow enhancement in the proximal fourth metatarsal suspicious for an early osteomyelitis. 2. Complex fluid collection in the lateral foot near the base of the fourth metatarsal, probably an abscess with surrounding cellulitis. 3. Extensive marrow edema in the midfoot as above, probably reactive. Patchy low signal in the navicular and cuboid may indicate some avascular necrosis. 4. Postoperative resection of the fifth toe and fifth metatarsal. Francisco Grider MD Ankle MRI 10/24/17 0000 Signed Impressions: Service Date/Time: Tuesday, October 24, 2017 10:08 - CONCLUSION: 1. No definite evidence for osteomyelitis around the right ankle. Marrow edema however has increased slightly since the prior exam, probably reactive and possibly associated with a developing Charcot arthropathy. Low signal patchy areas within the tarsal navicular are suspicious for developing avascular necrosis. There is edema in the soft tissues of the hindfoot. Trace joint fluid. Francisco Grider MD Foot X-Ray 10/23/17 0000 Signed Impressions: Service Date/Time: October 17:15 - CONCLUSION: 1. 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 Lupillo Webster MD Thoracentesis Ultrasound 10/20/17 0600 Signed Impressions: Service Date/Time: Friday, October 20, 2017 13:03 - CONCLUSION: Uncomplicated ultrasound guided thoracentesis. Smooth Saucedo MD Chest Ultrasound 10/17/17 0000 Signed Impressions: Service Date/Time: Tuesday, October 17, 2017 20:24 - CONCLUSION: A moderate to large right pleural effusion is confirmed sonographically and marked for thoracentesis. Hector Pierre MD Chest CT 10/16/17 0000 Signed Impressions: Service Date/Time: October 20:14 - CONCLUSION: Moderate-sized bilateral pleural effusions with adjacent compressive atelectasis and/or pneumonia. Scattered increased interstitial infiltrates within the perihilar regions and upper lobes bilaterally raising the possibility of pulmonary vascular congestion. Cardiomegaly and coronary artery calcifications are noted. Mild pretracheal and AP window mediastinal lymphadenopathy which is nonspecific. Degenerative changes and mild scoliosis of the thoracic spine. Hector Pierre MD Aspiration 10/16/17 0000 Signed Impressions: Service Date/Time: October 15:48 - CONCLUSION: Uncomplicated aspiration as above. Chetan Escobedo MD Abdomen/Pelvis CT 10/16/17 0000 Signed Impressions: Service Date/Time: October 20:14 - CONCLUSION: 1. Moderate-sized bilateral pleural effusions with adjacent consolidations consistent with atelectasis and/or pneumonia. 2. Tiny calcified nonobstructing bilateral renal calculi. 3. Mild hepatosplenomegaly. 4. Uncomplicated colonic diverticulosis. 5. Minimal free fluid within the pelvis. 6. Streakiness and fluid within the bilateral retroperitoneum inferior to the kidneys and extending into the presacral region. 7. Degenerative changes and scoliosis of the thoracolumbar spine. Hector Pierre MD Knee X-Ray 10/15/17 0000 Signed Impressions: Service Date/Time: Sunday, October 15, 2017 15:26 - CONCLUSION: Large joint effusion otherwise negative. Tu Lim MD FACR Carotid Artery Ultrasound 10/13/17 0000 Signed Impressions: Service Date/Time: Friday, October 13, 2017 16:12 - CONCLUSION: No evidence of flow-limiting carotid stenosis. Wm Riley MD Aorta w/Runoff CTA 10/13/17 0000 Signed Impressions: Service Date/Time: Friday, October 13, 2017 22:41 - CONCLUSION: 1. No aortic occlusive disease. 2. No significant iliac inflow stenosis. 3. No significant outflow stenosis. 4. Diffuse bilateral runoff disease with heavily calcified tibial arteries and significant venous contamination precluding patency evaluation beyond the very proximal calf. 5. Small to moderate bilateral pleural effusions with associated airspace disease at the lung bases, presumably atelectasis. 6. Trace free fluid in the deep pelvis. 7. Ancillary findings include hepatic steatosis, nonobstructing punctate calyceal calculus in the inferior pole of the left kidney and small suprapatellar right joint effusion. Lupillo Webster MD Objective Remarks awake and alert, oriented x 3. good sats, comfortable, anicteric no nuchal rigidity lungs- no rales , no wheezes, good air entry regular rhythm abdomen- soft, nontender, good bowel sounds extremities- right knee with effusion-resolved , no surrounding erythema- right foot s/p 5th toe amputation- VAC in place- lateral side of the foot plantar aspect with dry eschar Procedures 10/08/17 Right foot and ankle incision drainage, 5th metatarsal resection, 5th digit amputation 10/25/17 Incision and drainage Right foot/ankle abscess with bone biopsy right 4th metatarsal base; wound vac placement A/P Problem List: (1) Osteomyelitis of foot ICD Code: M86.9 - Osteomyelitis, unspecified (2) Leukocytosis ICD Code: D72.829 - Elevated white blood cell count, unspecified (3) Dehydration with hyponatremia ICD Code: E87.1 - Hypo-osmolality and hyponatremia (4) Acute kidney injury ICD Code: N17.9 - Acute kidney failure, unspecified (5) Sepsis ICD Code: A41.9 - Sepsis, unspecified organism Status: Acute (6) Diabetic foot ulcer ICD Code: E11.621 - Type 2 diabetes mellitus with foot ulcer; L97.509 - Non- pressure chronic ulcer of other part of unspecified foot with unspecified severity Status: Acute (7) Acute renal failure superimposed on stage 3 chronic kidney disease ICD Code: N17.9 - Acute kidney failure, unspecified; N18.3 - Chronic kidney disease, stage 3 (moderate) (8) Bacteremia due to Gram-positive bacteria ICD Code: R78.81 - Bacteremia (9) Postoperative anemia ICD Code: D64.9 - Anemia, unspecified Assessment and Plan This is a 57-year-old male who presented with sepsis Sepsis-- Secondary to diabetic foot infection, bacteremia, right foot osteomyelitis: - Appreciate infectious disease recommendations. He does have a right knee pleural effusion with no growth. - T down - occasional fever - Continue to monitor fevers. ? drug fever- clinically looks well - ff CBC Right foot osteomyelitis:S /P irrigation/debridement with wound vac placement 06/04. -Status post incision and drainage, fifth metatarsal resection, fifth digit amputation on 10/08/17. Podiatry is recommending IV antibiotics on discharge. Final antibiotic recommendations per infectious disease. Continue wound care. S - try to wean off IV pain medication. on po pain meds -Rocephin discontinued on 11/02/2017 secondary to possible drug fever. Levaquin and Zyvox DC'd 10/28/2017. Wound culture growing staph and strep not A/B/D. - New cultures obtained in surgery are growing staph aureus. - Patient on daptomycin and Levaquin - ID ff Right knee effusion:- Resolved - Appreciate orthopedic surgery recommendations. So far cultures are negative. Bilateral pleural effusion:-improved clinically Elevated BNP- clinically appears comfortable r/io underlying CHF- ? from high out failure from anemia - pulmonary - stable- breathing comfortably -Appreciate pulmonology recommendations. Status post right-sided thoracentesis. Cytology is negative for malignant cells. - get 2D echo- EF 55# - S/P Lasix 20 mg IV 11/05 - start po Lasix 20 mg po daily Peripheral vascular disease: -Appreciate vascular surgery recommendations. Per vascular surgery, no surgical intervention is planned. Postoperative anemia: H and H dropped again this am r/o GIB- black stools- stools tested negative for guaiac -Received transfusion of 2 units PRBCs. Monitor H&H. - given 1 unit RBC 11/05 with Lasix 20 mg IV after - start PPI - GI consult- ? EGD/colonoscopy - hold Heparin SQ Diabetes mellitus type 2: - good readings -Continue Levemir. Monitor Accu-Cheks and cover with sliding scale insulin. Continue preprandial insulin as well. Acute kidney injury superimposed on chronic kidney disease stage III- good urine out[ut -Creatinine continues to improve. Stage one pressure ulcer. -Patient needs turning every 2 hours. PT working with patient. Hypokalemia- imrpoved -Replenish as needed. DVT prophylaxis: Heparin- hold with anemia Discharge Planning Patient most likely require outpatient IV antibiotics and wound VAC changes. 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
[2017-11-06] MEDS: SODIUM CHLORIDE 0.9% FLUSH 10 ML FLUSH IV FLUSH SCH ×2 (09:00→20:57)
[2017-11-06] MEDS: COLLAGENASE OINT 30 GM TUBE TOPICAL SCH (09:00)
[2017-11-06] MEDS: LEVOFLOXACIN 750 MG TAB PO SCH (09:50)
[2017-11-06] MEDS: GABAPENTIN 300 MG CAP PO SCH ×3 (09:51→18:12)
[2017-11-06] MEDS: PANTOPRAZOLE SODIUM 40 MG VIAL IV PUSH SCH (09:51)
[2017-11-06] MEDS: FUROSEMIDE 20 MG TAB PO SCH (09:51)
[2017-11-06] MEDS: LACTOBACILLUS ACIDOPHILUS TAB PO SCH ×2 (09:51→20:57)
[2017-11-06 12:00] VITALS: BP 111/61; PULSE 87; RESP 14; TEMP 98.3
--- NOTE | 2017-11-06 13:34 | HHI.GIFU ---
Subjective Remarks Pt resting in bed. Said he didn't get any instructions on how to take bowel prep. (Ping Chapman) Objective Vitals I&O Vital Signs Date Time Temp Pulse Resp B/P (MAP) Pulse Ox O2 Delivery O2 Flow Rate FiO2 11/06/17 12:00 98.3 87 14 111/61 (78) 11/06/17 08:18 Nasal Cannula 2.00 11/06/17 08:00 98.7 89 16 129/66 (87) 96 11/06/17 04:00 Nasal Cannula 2.00 11/06/17 04:00 97.7 88 18 120/90 (100) 100 11/06/17 00:00 Nasal Cannula 2.00 11/06/17 00:00 Nasal Cannula 2.00 11/06/17 00:00 98.9 89 19 125/89 (101) 99 11/05/17 20:00 Nasal Cannula 2.00 11/05/17 19:25 99.3 96 12 119/62 (81) 95 11/05/17 16:41 18 11/05/17 16:00 97.0 97 16 122/62 (82) 96 I/O 11/05/17 11/05/17 11/05/17 11/06/17 11/06/17 11/06/17 07:00 15:00 23:00 07:00 15:00 23:00 Intake Total 420 ml 480 ml 1200 ml Output Total 500 ml 1300 ml 1200 ml Balance -80 ml -820 ml 0 ml Intake Oral 380 ml 1200 ml IV Total 100 ml Packed Cells 400 ml Blood Product IV Normal Saline Flush 20 ml Output Urine Total 500 ml 1300 ml 1200 ml Drainage Total 0 ml # Bowel Movements 1 12 Laboratory Laboratory Tests Test 11/05/17 20:59 11/06/17 06:40 White Blood Count 8.4 8.4 Red Blood Count 2.86 2.61 Hemoglobin 7.9 7.2 Hematocrit 22.9 21.2 Mean Corpuscular Volume 80.3 81.3 Mean Corpuscular Hemoglobin 27.7 27.7 Mean Corpuscular Hemoglobin Concent 34.5 34.1 Red Cell Distribution Width 15.5 15.8 Platelet Count 361 345 Mean Platelet Volume 7.5 7.5 Neutrophils (%) (Auto) 78.0 Lymphocytes (%) (Auto) 13.1 Monocytes (%) (Auto) 7.3 Eosinophils (%) (Auto) 1.3 Basophils (%) (Auto) 0.3 Neutrophils # (Auto) 6.6 Lymphocytes # (Auto) 1.1 Monocytes # (Auto) 0.6 Eosinophils # (Auto) 0.1 Basophils # (Auto) 0.0 CBC Comment DIFF FINAL Differential Comment Blood Urea Nitrogen 14 Creatinine 0.99 Random Glucose 144 Calcium Level 8.3 Sodium Level 136 Potassium Level 4.1 Chloride Level 101 Carbon Dioxide Level 25.6 Anion Gap 9 Estimat Glomerular Filtration Rate 77 Date/Time Source Procedure Growth Status 10/31/17 14:46 Blood Peripheral Aerobic Blood Culture - Final NO GROWTH IN 5 DAYS Complete 10/31/17 14:46 Blood Peripheral Anaerobic Blood Culture - Final NO GROWTH IN 5 DAYS Complete 10/20/17 14:25 Fluid Pleural Fluid Fungal Smear - Final NO FUNGAL ELEMENTS SEEN. Resulted 10/20/17 14:25 Fluid Pleural Fluid Fungal Culture - Preliminary NO GROWTH IN 2 WEEKS Resulted 11/05/17 10:00 Stool Stool Stool Occult Blood (MILA) - Final HEMOCCULT NEGATIVE Complete 10/25/17 08:55 Wound Foot Fungal Smear - Final NO FUNGAL ELEMENTS SEEN. Resulted 10/25/17 08:55 Wound Foot Fungal Culture - Preliminary NO GROWTH IN 1 WEEK Resulted Imaging Last Impressions Chest X-Ray 11/04/17 0000 Signed Impressions: Service Date/Time: Saturday, November 04, 2017 12:29 - CONCLUSION: 1. Cardiomegaly with bilateral perihilar edema greater on the left, likely from CHF and pulmonary edema. 2. Underlying infiltrate cannot be excluded. Jairon Malcolm MD Lower Extremity Ultrasound 10/28/17 0000 Signed Impressions: Service Date/Time: Saturday, October 28, 2017 16:26 - CONCLUSION: 1. Negative for deep venous thrombosis. Mildly enlarged right inguinal lymph nodes. Francisco Grider MD Foot MRI 10/24/17 0000 Signed Impressions: Service Date/Time: Tuesday, October 24, 2017 10:08 - CONCLUSION: 1. Marrow edema and mild marrow enhancement in the proximal fourth metatarsal suspicious for an early osteomyelitis. 2. Complex fluid collection in the lateral foot near the base of the fourth metatarsal, probably an abscess with surrounding cellulitis. 3. Extensive marrow edema in the midfoot as above, probably reactive. Patchy low signal in the navicular and cuboid may indicate some avascular necrosis. 4. Postoperative resection of the fifth toe and fifth metatarsal. Francisco Grider MD Ankle MRI 10/24/17 0000 Signed Impressions: Service Date/Time: Tuesday, October 24, 2017 10:08 - CONCLUSION: 1. No definite evidence for osteomyelitis around the right ankle. Marrow edema however has increased slightly since the prior exam, probably reactive and possibly associated with a developing Charcot arthropathy. Low signal patchy areas within the tarsal navicular are suspicious for developing avascular necrosis. There is edema in the soft tissues of the hindfoot. Trace joint fluid. Francisco Grider MD Foot X-Ray 10/23/17 0000 Signed Impressions: Service Date/Time: October 17:15 - CONCLUSION: 1. 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 Lupillo Webster MD Thoracentesis Ultrasound 10/20/17 0600 Signed Impressions: Service Date/Time: Friday, October 20, 2017 13:03 - CONCLUSION: Uncomplicated ultrasound guided thoracentesis. Smooth Saucedo MD Chest Ultrasound 10/17/17 0000 Signed Impressions: Service Date/Time: Tuesday, October 17, 2017 20:24 - CONCLUSION: A moderate to large right pleural effusion is confirmed sonographically and marked for thoracentesis. Hector Pierre MD Chest CT 10/16/17 0000 Signed Impressions: Service Date/Time: October 20:14 - CONCLUSION: Moderate-sized bilateral pleural effusions with adjacent compressive atelectasis and/or pneumonia. Scattered increased interstitial infiltrates within the perihilar regions and upper lobes bilaterally raising the possibility of pulmonary vascular congestion. Cardiomegaly and coronary artery calcifications are noted. Mild pretracheal and AP window mediastinal lymphadenopathy which is nonspecific. Degenerative changes and mild scoliosis of the thoracic spine. Hector Pierre MD Aspiration 10/16/17 Signed Impressions: Service Date/Time: October 15:48 - CONCLUSION: Uncomplicated aspiration as above. Chetan Escobedo MD Abdomen/Pelvis CT 10/16/17 0000 Signed Impressions: Service Date/Time: October 20:14 - CONCLUSION: 1. Moderate-sized bilateral pleural effusions with adjacent consolidations consistent with atelectasis and/or pneumonia. 2. Tiny calcified nonobstructing bilateral renal calculi. 3. Mild hepatosplenomegaly. 4. Uncomplicated colonic diverticulosis. 5. Minimal free fluid within the pelvis. 6. Streakiness and fluid within the bilateral retroperitoneum inferior to the kidneys and extending into the presacral region. 7. Degenerative changes and scoliosis of the thoracolumbar spine. Hector Pierre MD Knee X-Ray 10/15/17 0000 Signed Impressions: Service Date/Time: Sunday, October 15, 2017 15:26 - CONCLUSION: Large joint effusion otherwise negative. Tu Lim MD FACR Carotid Artery Ultrasound 10/13/17 0000 Signed Impressions: Service Date/Time: Friday, October 13, 2017 16:12 - CONCLUSION: No evidence of flow-limiting carotid stenosis. Wm Riley MD Aorta w/Runoff CTA 10/13/17 0000 Signed Impressions: Service Date/Time: Friday, October 13, 2017 22:41 - CONCLUSION: 1. No aortic occlusive disease. 2. No significant iliac inflow stenosis. 3. No significant outflow stenosis. 4. Diffuse bilateral runoff disease with heavily calcified tibial arteries and significant venous contamination precluding patency evaluation beyond the very proximal calf. 5. Small to moderate bilateral pleural effusions with associated airspace disease at the lung bases, presumably atelectasis. 6. Trace free fluid in the deep pelvis. 7. Ancillary findings include hepatic steatosis, nonobstructing punctate calyceal calculus in the inferior pole of the left kidney and small suprapatellar right joint effusion. Lupillo Webster MD Physical Exam HEENT: PERRL; normocephalic; atraumatic; no jaundice. CHEST: respirations even, unlabored CARDIAC: RRR ABDOMEN: Soft, nondistended, nontender; no hepatosplenomegaly; bowel sounds are present in all four quadrants. EXTREMITIES: No clubbing, cyanosis, or edema. wound vac right foot SKIN: Normal; no rash; no jaundice. SHIPMASTER: No focal deficits; alert and oriented times three. (Ping Chapman DENTIST ATTENDANT) Assessment and Plan Plan ASSESSMENT - anemia, black tarry stool - HH trending down. heme occult pending. normocytic anemia. report black stool for last week. no obvious bleeding. no prior hx GIB. never had EGD or colonoscopy 11/06/17 pt did not take much prep, will try again tomorrow. d/w him how to drink, he says nobody told him and he didn't think he had to keep drinking it. HH relatively stable. no obvious bleeding. PLAN - EGD and colonoscopy in am - clears today - drink more of the GoLytely - notify GI of active bleeding - monitor HH pt seen by myself and dr Sewell and this note is on her behalf (Ping Chapman) Ping Chapman Nov 06, 2017 13:34 Cheri Sewell MD Nov 06, 2017 16:11
[2017-11-06 16:04] VITALS: BP 119/67; PULSE 95; RESP 20; TEMP 98.6; O2SAT 97
[2017-11-06] MEDS: DAPTOMYCIN IV SCH (16:34)
[2017-11-06] MEDS: SODIUM CHLORIDE 0.9% IV SCH (16:34)
--- NOTE | 2017-11-06 17:11 | HHI.PR ---
Subjective Remarks 57 YOWm with DM,Diabetic foot ulcer,Pl eff, Lung infilt US chest Mod to large Rt Pl eff no Fever Breathiing better Pl fluid cytology neg uses 02 off and on Did't complete colonoscopy prep Objective Vital Signs Vital Signs Date Time Temp Pulse Resp B/P (MAP) Pulse Ox O2 Delivery O2 Flow Rate FiO2 11/06/17 12:00 98.3 87 14 111/61 (78) 11/06/17 08:18 Nasal Cannula 2.00 11/06/17 08:00 98.7 89 16 129/66 (87) 96 11/06/17 04:00 Nasal Cannula 2.00 11/06/17 04:00 97.7 88 18 120/90 (100) 100 11/06/17 00:00 Nasal Cannula 2.00 11/06/17 00:00 Nasal Cannula 2.00 11/06/17 00:00 98.9 89 19 125/89 (101) 99 11/05/17 20:00 Nasal Cannula 2.00 11/05/17 19:25 99.3 96 12 119/62 (81) 95 I/O 11/05/17 11/05/17 11/05/17 11/06/17 11/06/17 11/06/17 07:00 15:00 23:00 07:00 15:00 23:00 Intake Total 420 ml 480 ml 1200 ml Output Total 500 ml 1300 ml 1200 ml Balance -80 ml -820 ml 0 ml Intake Oral 380 ml 1200 ml IV Total 100 ml Packed Cells 400 ml Blood Product IV Normal Saline Flush 20 ml Output Urine Total 500 ml 1300 ml 1200 ml Drainage Total 0 ml # Bowel Movements 1 12 Result Diagram: 11/06/17 0640 11/06/17 0640 Objective Remarks GENERAL: WBWN WM,NAD SKIN: Warm and dry. HEAD: Normocephalic. EYES: No scleral icterus. No injection or drainage. NECK: Supple, trachea midline. No JVD or lymphadenopathy. CARDIOVASCULAR: Regular rate and rhythm without murmurs, gallops, or rubs. RESPIRATORY: Breath sounds equal bilaterally. No accessory muscle use. Decreased BS at Bases GASTROINTESTINAL: Abdomen soft, non-tender, nondistended. MUSCULOSKELETAL: No cyanosis, or edema. Foot ulcer, VAC device BACK: Nontender without obvious deformity. No CVA tenderness. A/P Assessment and Plan Bilat Pl effusion Lung infilt/ septic emboli DM Foot Ulcer PLAN: Pl fluid cytology, cultures neg Cont Abx Cubicin and Levaquin per ID Supplement 02 to keep sat >90% Going for Endoscopy in AM Curtis Liao MD Nov 06, 2017 17:11
[2017-11-06] MEDS ORDERED: PEG (High)/E-LYTE SOLN 4000 ML BTL PO ONE (17:15)
[2017-11-06 20:00] VITALS: BP 119/63; PULSE 92; RESP 18; TEMP 98.7; O2SAT 96
[2017-11-06] MEDS: INSULIN DETEMIR 100 UNITS/ML VIAL SQ SCH (20:57)
[2017-11-07] VITALS: BP 126/67; PULSE 96; RESP 20; TEMP 98.8; O2SAT 94
[2017-11-07] MEDS: MORPHINE SULFATE 2 MG/ML SYRINGE IV PUSH PRN ×4 (00:25→20:34)
[2017-11-07] MEDS: oxyCODONE/ACETAMINOPHEN 10 MG/325 MG TAB PO PRN ×4 (02:59→23:57)
[2017-11-07 04:00] VITALS: BP 133/76; PULSE 98; RESP 18; TEMP 98.5; O2SAT 94
[2017-11-07] MEDS: SODIUM CHLORIDE 0.9% FLUSH 10 ML FLUSH IV FLUSH SCH ×2 (07:38→20:36)
[2017-11-07 08:00] VITALS: BP_SYST 101; BP_SYST 126; BP_DIAS 62; BP_DIAS 76; PULSE 88; PULSE 93; RESP 20; TEMP 97.9; TEMP 98.9; O2SAT 96; O2SAT 98
[2017-11-07] MEDS: INSULIN ASPART SUPPLEMENTAL SCALE SQ SCH ×4 (08:00→21:00)
[2017-11-07] MEDS: LACTOBACILLUS ACIDOPHILUS TAB PO SCH ×2 (08:29→20:34)
[2017-11-07] MEDS: GABAPENTIN 300 MG CAP PO SCH ×3 (08:30→17:32)
[2017-11-07] MEDS: PANTOPRAZOLE SODIUM 40 MG VIAL IV PUSH SCH (08:30)
[2017-11-07] MEDS: FUROSEMIDE 20 MG TAB PO SCH (08:30)
[2017-11-07] MEDS: LEVOFLOXACIN 750 MG TAB PO SCH (08:30)
[2017-11-07] MEDS: INSULIN ASPART 1,000 UNITS/10 ML VIAL SQ SCH ×3 (08:31→16:34)
[2017-11-07] MEDS: COLLAGENASE OINT 30 GM TUBE TOPICAL SCH (08:32)
--- NOTE | 2017-11-07 09:01 | HHI.PR ---
Subjective Remarks no complains tooK all the prep for scope stools liquid bronw- no blood from prep no pain complains Objective Vitals Vital Signs Date Time Temp Pulse Resp B/P (MAP) Pulse Ox O2 Delivery O2 Flow Rate FiO2 11/07/17 08:00 98.9 93 20 126/76 (93) 98 11/07/17 04:00 Nasal Cannula 2.00 11/07/17 04:00 98.5 98 18 133/76 (95) 94 11/07/17 00:00 98.8 96 20 126/67 (86) 94 11/07/17 00:00 Nasal Cannula 2.00 11/06/17 20:00 98.7 92 18 119/63 (81) 96 11/06/17 20:00 Nasal Cannula 2.00 11/06/17 18:08 11/06/17 16:04 98.6 95 20 119/67 (84) 97 11/06/17 12:00 98.3 87 14 111/61 (78) I/O 11/06/17 11/06/17 11/06/17 11/07/17 11/07/17 11/07/17 07:00 15:00 23:00 07:00 15:00 23:00 Intake Total 1200 ml 460 ml 0 ml Output Total 1200 ml 1400 ml 750 ml Balance 0 ml -940 ml -750 ml Intake Oral 1200 ml 360 ml 0 ml IV Total 100 ml Output Urine Total 1200 ml 1400 ml 750 ml # Bowel Movements 12 1 5 Result Diagram: 11/06/17 0640 11/06/17 0640 Imaging Last Impressions Chest X-Ray 11/04/17 0000 Signed Impressions: Service Date/Time: Saturday, November 04, 2017 12:29 - CONCLUSION: 1. Cardiomegaly with bilateral perihilar edema greater on the left, likely from CHF and pulmonary edema. 2. Underlying infiltrate cannot be excluded. Jairon Malcolm MD Lower Extremity Ultrasound 10/28/17 0000 Signed Impressions: Service Date/Time: Saturday, October 28, 2017 16:26 - CONCLUSION: 1. Negative for deep venous thrombosis. Mildly enlarged right inguinal lymph nodes. Francisco Grider MD Foot MRI 10/24/17 0000 Signed Impressions: Service Date/Time: Tuesday, October 24, 2017 10:08 - CONCLUSION: 1. Marrow edema and mild marrow enhancement in the proximal fourth metatarsal suspicious for an early osteomyelitis. 2. Complex fluid collection in the lateral foot near the base of the fourth metatarsal, probably an abscess with surrounding cellulitis. 3. Extensive marrow edema in the midfoot as above, probably reactive. Patchy low signal in the navicular and cuboid may indicate some avascular necrosis. 4. Postoperative resection of the fifth toe and fifth metatarsal. Francisco Grider MD Ankle MRI 10/24/17 0000 Signed Impressions: Service Date/Time: Tuesday, October 24, 2017 10:08 - CONCLUSION: 1. No definite evidence for osteomyelitis around the right ankle. Marrow edema however has increased slightly since the prior exam, probably reactive and possibly associated with a developing Charcot arthropathy. Low signal patchy areas within the tarsal navicular are suspicious for developing avascular necrosis. There is edema in the soft tissues of the hindfoot. Trace joint fluid. Francisco Grider MD Foot X-Ray 10/23/17 0000 Signed Impressions: Service Date/Time: October 17:15 - CONCLUSION: 1. 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 Lupillo Webster MD Thoracentesis Ultrasound 10/20/17 0600 Signed Impressions: Service Date/Time: Friday, October 20, 2017 13:03 - CONCLUSION: Uncomplicated ultrasound guided thoracentesis. Smooth Saucedo MD Chest Ultrasound 10/17/17 0000 Signed Impressions: Service Date/Time: Tuesday, October 17, 2017 20:24 - CONCLUSION: A moderate to large right pleural effusion is confirmed sonographically and marked for thoracentesis. Hector Pierre MD Chest CT 10/16/17 0000 Signed Impressions: Service Date/Time: October 20:14 - CONCLUSION: Moderate-sized bilateral pleural effusions with adjacent compressive atelectasis and/or pneumonia. Scattered increased interstitial infiltrates within the perihilar regions and upper lobes bilaterally raising the possibility of pulmonary vascular congestion. Cardiomegaly and coronary artery calcifications are noted. Mild pretracheal and AP window mediastinal lymphadenopathy which is nonspecific. Degenerative changes and mild scoliosis of the thoracic spine. Hector Pierre MD Aspiration 10/16/17 0000 Signed Impressions: Service Date/Time: October 15:48 - CONCLUSION: Uncomplicated aspiration as above. Chetan Escobedo MD Abdomen/Pelvis CT 10/16/17 0000 Signed Impressions: Service Date/Time: October 20:14 - CONCLUSION: 1. Moderate-sized bilateral pleural effusions with adjacent consolidations consistent with atelectasis and/or pneumonia. 2. Tiny calcified nonobstructing bilateral renal calculi. 3. Mild hepatosplenomegaly. 4. Uncomplicated colonic diverticulosis. 5. Minimal free fluid within the pelvis. 6. Streakiness and fluid within the bilateral retroperitoneum inferior to the kidneys and extending into the presacral region. 7. Degenerative changes and scoliosis of the thoracolumbar spine. Hector Pierre MD Knee X-Ray 10/15/17 0000 Signed Impressions: Service Date/Time: Sunday, October 15, 2017 15:26 - CONCLUSION: Large joint effusion otherwise negative. Tu Lim MD FACR Carotid Artery Ultrasound 10/13/17 0000 Signed Impressions: Service Date/Time: Friday, October 13, 2017 16:12 - CONCLUSION: No evidence of flow-limiting carotid stenosis. Wm Riley MD Aorta w/Runoff CTA 10/13/17 0000 Signed Impressions: Service Date/Time: Friday, October 13, 2017 22:41 - CONCLUSION: 1. No aortic occlusive disease. 2. No significant iliac inflow stenosis. 3. No significant outflow stenosis. 4. Diffuse bilateral runoff disease with heavily calcified tibial arteries and significant venous contamination precluding patency evaluation beyond the very proximal calf. 5. Small to moderate bilateral pleural effusions with associated airspace disease at the lung bases, presumably atelectasis. 6. Trace free fluid in the deep pelvis. 7. Ancillary findings include hepatic steatosis, nonobstructing punctate calyceal calculus in the inferior pole of the left kidney and small suprapatellar right joint effusion. Lupillo Webster MD Objective Remarks awake and alert, oriented x 3. good sats, comfortable, anicteric no nuchal rigidity lungs- no rales , no wheezes, good air entry regular rhythm abdomen- soft, nontender, good bowel sounds extremities- right knee with effusion-resolved , no surrounding erythema- right foot s/p 5th toe amputation- VAC in place- lateral side of the foot - no erythema plantar aspect with dry eschar Procedures 10/08/17 Right foot and ankle incision drainage, 5th metatarsal resection, 5th digit amputation 10/25/17 Incision and drainage Right foot/ankle abscess with bone biopsy right 4th metatarsal base; wound vac placement A/P Problem List: (1) Osteomyelitis of foot ICD Code: M86.9 - Osteomyelitis, unspecified (2) Leukocytosis ICD Code: D72.829 - Elevated white blood cell count, unspecified (3) Dehydration with hyponatremia ICD Code: E87.1 - Hypo-osmolality and hyponatremia (4) Acute kidney injury ICD Code: N17.9 - Acute kidney failure, unspecified (5) Sepsis ICD Code: A41.9 - Sepsis, unspecified organism Status: Acute (6) Diabetic foot ulcer ICD Code: E11.621 - Type 2 diabetes mellitus with foot ulcer; L97.509 - Non- pressure chronic ulcer of other part of unspecified foot with unspecified severity Status: Acute (7) Acute renal failure superimposed on stage 3 chronic kidney disease ICD Code: N17.9 - Acute kidney failure, unspecified; N18.3 - Chronic kidney disease, stage 3 (moderate) (8) Bacteremia due to Gram-positive bacteria ICD Code: R78.81 - Bacteremia (9) Postoperative anemia ICD Code: D64.9 - Anemia, unspecified Assessment and Plan This is a 57-year-old male who presented with sepsis Sepsis-- Secondary to diabetic foot infection, bacteremia, right foot osteomyelitis: - T down - Continue to monitor fevers. ? drug fever- clinically looks well - ff CBC Right foot osteomyelitis:S /P irrigation/debridement with wound vac placement 06/04. - S. aureus -Status post incision and drainage, fifth metatarsal resection, fifth digit amputation on 10/08/17. Podiatry is recommending IV antibiotics on discharge. Final antibiotic recommendations per infectious disease. Continue wound care. S on po pain meds -Rocephin discontinued on 11/02/2017 secondary to possible drug fever. Levaquin and Zyvox DC'd 10/28/2017. Wound culture growing staph and strep not A/B/D. - Patient on daptomycin and Levaquin - ID ff Right knee effusion:- Resolved - Appreciate orthopedic surgery recommendations. So far cultures are negative. Bilateral pleural effusion:-improved clinically Elevated BNP- clinically appears comfortable r/io underlying CHF- ? from high out failure from anemia - pulmonary - stable-respiratory [place]- no SOB- up and ambulating -Appreciate pulmonology recommendations. Status post right-sided thoracentesis. Cytology is negative for malignant cells. -2D echo- EF 55# - S/P Lasix 20 mg IV 11/05 - Lasix 20 mg po daily Peripheral vascular disease: -Appreciate vascular surgery recommendations. Per vascular surgery, no surgical intervention is planned. Postoperative anemia: H and H dropped r/o GIB- black stools- stools tested negative for guaiac -Received transfusion of 2 units PRBCs. Monitor H&H. - given 1 unit RBC 11/05 with Lasix 20 mg IV after - started on PPI - GI consult- ? EGD/colonoscopy-today - hold Heparin SQ Diabetes mellitus type 2: - good readings -Continue Levemir. Monitor Accu-Cheks and cover with sliding scale insulin. Continue preprandial insulin as well. Acute kidney injury superimposed on chronic kidney disease stage III- good urine out[ut -Creatinine continues to improve. Stage one pressure ulcer. -Patient needs turning every 2 hours. PT working with patient. Hypokalemia- imrpoved -Replenish as needed. DVT prophylaxis: Heparin- hold with anemia patient up and ambulating Discharge Planning Patient most likely require outpatient IV antibiotics and wound VAC changes. d/w patient- may need PICC for longterm IV antibiotic administration- refused PICC states homeless - [place] the [place] Problem Qualifiers (1) Sepsis: Qualified Codes: A41.9 - Sepsis, unspecified organism (2) Diabetic foot ulcer: Qualified Codes: E10.621 - Type 1 diabetes mellitus with foot ulcer; L97.419 - Non-pressure chronic ulcer of right heel and midfoot with unspecified severity Noni Huerta MD Nov 07, 2017 09:01
[2017-11-07] MEDS ORDERED: INSULIN HUMAN REGULAR 1,000 UNITS/10 ML VIAL SQ PRN (11:15)
[2017-11-07] MEDS ORDERED: METOPROLOL TARTRATE 25 MG TAB PO PRN (11:15)
[2017-11-07] MEDS ORDERED: SODIUM CHLORID 0.9% 500 ML IV PRN (11:15)
[2017-11-07] MEDS ORDERED: CHLORHEXIDINE GLUCONATE 2 % 1 PACK (2 CLOTHS) TOPICAL PRN (11:15)
[2017-11-07] MEDS ORDERED: LACTATED RINGER'S 1000 ML IV PRN (11:15)
[2017-11-07] MEDS ORDERED: POVIDONE IODINE 5% (ANTISEPSIS KIT) 4 APPLICATIONS EACH NARE PRN (11:15)
--- NOTE | 2017-11-07 11:23 | GIPROC ---
[facility] [address] [facility]. [facility], [address] EGD PROCEDURE REPORT EXAM DATE: 11/07/2017 PATIENT NAME: Cyrus Braxton V MR #: [id number] BIRTHDATE: 1960 ATTENDING: Cheri Sewell MD ORDER #: [id number] GRANTS ANALYST: Zaid Piña and Nasreen Sears STATUS: inpatient INDICATIONS: The patient is a 57 yr old male here for an EGD due to gastritis antrum-biopsy esophagitis distal esophagus-biopsy duodenum normal-biopsy PROCEDURE PERFORMED: EGD w/ biopsy MEDICATIONS: None and Per Anesthesia. TOPICAL ANESTHETIC: none CONSENT: The patient understands the risks and benefits of the procedure and understands that these risks include, but are not limited to: sedation, allergic reaction, infection, perforation and/or bleeding. Alternative means of evaluation and treatment include, among others: physical exam, x-rays, and/or surgical intervention. The patient elects to proceed with this endoscopic procedure. medical equipment was checked for proper function. Hand hygiene and appropriate measures for infection prevention was taken. After the risks, benefits and alternatives of the procedure were thoroughly explained, Informed consent was verified, confirmed and timeout was successfully executed by the treatment team. The patient was anesthetized with topical anesthesia and the EC-[id number] (Pedi C) endoscope was introduced through the mouth and advanced to the second portion of the duodenum. Retroflexed views revealed a hiatal hernia The gastroscope was then slowly withdrawn and removed. Gastritis antrum-biopsy esophagitis distal esophagus -biopsy duodenum normal-biopsy. ADVERSE EVENTS: There were no complications. IMPRESSIONS: 1. Gastritis antrum-biopsy esophagitis distal esophagus -biopsy duodenum normal-biopsy 2. Retroflexed views revealed a hiatal hernia RECOMMENDATIONS: 1. Await biopsy results. Biopsy results will not be ready for 7-10 days. If you don't hear from us in two weeks, call our office for biopsy results. 2. Anti-reflux regimen 3. Continue PPI 4. Start PPI PATIENT CONDITION: stable DISPOSITION: Inpatient REPEAT EXAM: Return 3 years EGD Cheri Sewell MD eSigned: Cheri Sewell MD 11/07/2017 11:23 AM cc: PATIENT NAME: Cyrus Braxton V MR#: [id number]
--- NOTE | 2017-11-07 11:26 | GIPROC ---
[facility] [address] [facility]. [facility], [address] COLONOSCOPY PROCEDURE REPORT EXAM DATE: 11/07/2017 PATIENT NAME: Cyrus Braxton V MR #: [id number] BIRTHDATE: 1960 ENDOSCOPIST: Cheri Sewell MD ORDER #: [id number] PANTOGRAPH II ENGRAVER: Zaid Piña and Nasreen Sears STATUS: inpatient INDICATIONS: The patient is a 57 yr old male here for a colonoscopy due to anemai, gi bleeding PROCEDURE PERFORMED: Colonoscopy, diagnostic MEDICATIONS: None and Per Anesthesia. PREP QUALITY: fair PREP TYPE:Other: ESTIMATED BLOOD LOSS: None CONSENT: The patient understands the risks and benefits of the procedure and understands that these risks include, but are not limited to: sedation, allergic reaction, infection, perforation and/or bleeding. Alternative means of evaluation and treatment include, among others: physical exam, x-rays, and/or surgical intervention. The patient elects to proceed with this endoscopic procedure. medical equipment was checked for proper function. Hand hygiene and appropriate measures for infection prevention was taken. After the risks, benefits and alternatives of the procedure were thoroughly explained, Informed consent was verified, confirmed and timeout was successfully executed by the treatment team. A digital exam revealed external hemorrhoids The Pentax EC-[id number] endoscope was introduced through the anus and advanced to the cecum, which was identified by both the appendix and ileocecal valve. The instrument was then slowly withdrawn as the colon was fully examined. COLON FINDINGS: Diverticulosis sigmoid,descending. Retroflexed views revealed internal hemorrhoids and Retroflexed views revealed small internal hemorrhoids The scope was then completely withdrawn from the patient and the procedure terminated. PROCEDURE WITHDRAWAL TIME:6minutes ADVERSE EVENTS: There were no complications. IMPRESSIONS: 1. Diverticulosis sigmoid,descending 2. Retroflexed views revealed internal hemorrhoids 3. Retroflexed views revealed small internal hemorrhoids 4. Revealed external hemorrhoids RECOMMENDATIONS: 1. Await biopsy results. Biopsy results will not be ready for 7-10 days. If you don't hear from us in two weeks, call our office for results. 2. Probiotics from any [employer] or health food store 3. Capsule endoscopy op ok to restart anticoagulation from gi point consider hematology eval, iv iron gi will sign off call us as nedeed fu gi upon dc RECALL: Return 5 years Colonoscopy Cheri Sewell MD eSigned: Cheri Sewell MD 11/07/2017 11:25 AM cc: PATIENT NAME: Cyrus Braxton V MR#: [id number]
[2017-11-07 12:00] VITALS: BP 132/70; PULSE 100; RESP 20; TEMP 98.4; O2SAT 94
[2017-11-07] MEDS ORDERED: LIDOCAINE HCL 1% PF 5 ML SYRINGE OTHER ONE (12:00)
[2017-11-07] MEDS ORDERED: PROPOFOL 200 MG/20 ML AMP IV ONE (12:00)
[2017-11-07 16:00] VITALS: BP 128/67; PULSE 96; RESP 20; TEMP 99.7; O2SAT 95
[2017-11-07] MEDS: DAPTOMYCIN IV SCH (16:34)
[2017-11-07] MEDS: SODIUM CHLORIDE 0.9% IV SCH (16:34)
--- NOTE | 2017-11-07 18:54 | HHI.PR ---
Subjective Remarks 57 YOWm with DM,Diabetic foot ulcer,Pl eff, Lung infilt US chest Mod to large Rt Pl eff no Fever Breathing better Pl fluid cytology neg uses 02 off and on Had colonoscopy Sleeping Objective Vital Signs Vital Signs Date Time Temp Pulse Resp B/P (MAP) Pulse Ox O2 Delivery O2 Flow Rate FiO2 11/07/17 16:00 99.7 96 20 128/67 (87) 95 11/07/17 12:00 98.4 100 20 132/70 (90) 94 11/07/17 11:24 98.3 92 18 113/67 (82) 94 11/07/17 11:24 94 Nasal Cannula 2 11/07/17 08:00 97.9 88 20 101/62 (75) 96 11/07/17 08:00 98.9 93 20 126/76 (93) 98 11/07/17 04:00 Nasal Cannula 2.00 11/07/17 04:00 98.5 98 18 133/76 (95) 94 11/07/17 00:00 98.8 96 20 126/67 (86) 94 11/07/17 00:00 Nasal Cannula 2.00 11/06/17 20:00 98.7 92 18 119/63 (81) 96 11/06/17 20:00 Nasal Cannula 2.00 I/O 11/06/17 11/06/17 11/06/17 11/07/17 11/07/17 11/07/17 06:59 14:59 22:59 06:59 14:59 22:59 Intake Total 1200 ml 460 ml 0 ml 50 ml 720 ml Output Total 1200 ml 1400 ml 750 ml 1300 ml Balance 0 ml -940 ml -750 ml 50 ml -580 ml Intake Oral 1200 ml 360 ml 0 ml 720 ml IV Total 100 ml Other 50 ml Output Urine Total 1200 ml 1400 ml 750 ml 1300 ml # Bowel Movements 12 1 5 Result Diagram: 11/06/1740 11/06/17 0640 Objective Remarks GENERAL: WBWN WM,NAD SKIN: Warm and dry. HEAD: Normocephalic. EYES: No scleral icterus. No injection or drainage. NECK: Supple, trachea midline. No JVD or lymphadenopathy. CARDIOVASCULAR: Regular rate and rhythm without murmurs, gallops, or rubs. RESPIRATORY: Breath sounds equal bilaterally. No accessory muscle use. Decreased BS at Bases GASTROINTESTINAL: Abdomen soft, non-tender, nondistended. MUSCULOSKELETAL: No cyanosis, or edema. Foot ulcer, VAC device BACK: Nontender without obvious deformity. No CVA tenderness. A/P Assessment and Plan Bilat Pl effusion Lung infilt/ septic emboli DM Foot Ulcer PLAN: Pl fluid cytology, cultures neg Cont Abx Cubicin and Levaquin per ID Supplement 02 to keep sat >90% Stable from pulm standpoint Cutris Liao MD Nov 07, 2017 18:53
[2017-11-07 20:00] VITALS: BP 121/69; PULSE 95; RESP 19; TEMP 98.2; O2SAT 94
[2017-11-07] MEDS: INSULIN DETEMIR 100 UNITS/ML VIAL SQ SCH (21:00)
[2017-11-08] VITALS: BP 122/75; PULSE 91; RESP 19; TEMP 98.9; O2SAT 95
[2017-11-08] MEDS: MORPHINE SULFATE 2 MG/ML SYRINGE IV PUSH PRN ×5 (02:03→23:16)
[2017-11-08 04:00] VITALS: BP 114/63; PULSE 106; RESP 19; TEMP 99.1; O2SAT 95
[2017-11-08] MEDS: oxyCODONE/ACETAMINOPHEN 10 MG/325 MG TAB PO PRN ×5 (04:18→21:37)
[2017-11-08 08:00] VITALS: BP 138/75; PULSE 100; RESP 20; TEMP 100; O2SAT 95
[2017-11-08] MEDS: SODIUM CHLORIDE 0.9% FLUSH 10 ML FLUSH IV FLUSH SCH ×2 (09:00→21:00)
[2017-11-08] MEDS: COLLAGENASE OINT 30 GM TUBE TOPICAL SCH (09:00)
[2017-11-08] MEDS: FUROSEMIDE 20 MG TAB PO SCH (09:14)
[2017-11-08] MEDS: LACTOBACILLUS ACIDOPHILUS TAB PO SCH ×2 (09:14→21:00)
[2017-11-08] MEDS: PANTOPRAZOLE SODIUM 40 MG VIAL IV PUSH SCH (09:14)
[2017-11-08] MEDS: GABAPENTIN 300 MG CAP PO SCH ×3 (09:14→16:57)
[2017-11-08] MEDS: LEVOFLOXACIN 750 MG TAB PO SCH (09:14)
[2017-11-08] MEDS: INSULIN ASPART SUPPLEMENTAL SCALE SQ SCH ×4 (09:15→21:00)
[2017-11-08] MEDS: INSULIN ASPART 1,000 UNITS/10 ML VIAL SQ SCH ×3 (09:15→18:19)
--- NOTE | 2017-11-08 09:59 | HHI.PR ---
Subjective Remarks Follow-up on patient with right foot osteomyelitis, postoperative anemia, bilateral pleural effusions. Patient seen and examined. Patient states he feels very well today. States he is having lots of gas since his scope procedure. He reports low-grade fever. He denies any vision changes, dizziness or lightheadedness. He denies any nausea or vomiting. Tolerating diet. He denies any chest pain, shortness of breath or abdominal pain. He denies any dysuria or hematuria. He denies any diarrhea. He denies any blood in the stool. Objective Vitals Vital Signs Date Time Temp Pulse Resp B/P (MAP) Pulse Ox O2 Delivery O2 Flow Rate FiO2 11/08/17 08:00 100.0 100 20 138/75 (96) 95 11/08/17 04:00 99.1 106 19 114/63 (80) 95 11/08/17 00:00 98.9 91 19 122/75 (91) 95 11/07/17 20:00 98.2 95 19 121/69 (86) 94 11/07/17 20:00 Room Air 11/07/17 16:00 99.7 96 20 128/67 (87) 95 11/07/17 12:00 98.4 100 20 132/70 (90) 94 11/07/17 11:24 98.3 92 18 113/67 (82) 94 11/07/17 11:24 94 Nasal Cannula 2 I/O 11/07/17 11/07/17 11/07/17 11/08/17 11/08/17 11/08/17 07:00 15:00 23:00 07:00 15:00 23:00 Intake Total 0 ml 50 ml 720 ml 960 ml Output Total 750 ml 1300 ml 1200 ml Balance -750 ml 50 ml -580 ml -240 ml Intake Oral 0 ml 720 ml 960 ml Other 50 ml Output Urine Total 750 ml 1300 ml 1200 ml # Bowel Movements 5 Result Diagram: 11/06/17 0640 11/06/17 0640 Imaging Last Impressions Chest X-Ray 11/04/17 0000 Signed Impressions: Service Date/Time: Saturday, November 04, 2017 12:29 - CONCLUSION: 1. Cardiomegaly with bilateral perihilar edema greater on the left, likely from CHF and pulmonary edema. 2. Underlying infiltrate cannot be excluded. Jairon Malcolm MD Lower Extremity Ultrasound 10/28/17 0000 Signed Impressions: Service Date/Time: Saturday, October 28, 2017 16:26 - CONCLUSION: 1. Negative for deep venous thrombosis. Mildly enlarged right inguinal lymph nodes. Francisco Grider MD Foot MRI 10/24/17 0000 Signed Impressions: Service Date/Time: Tuesday, October 24, 2017 10:08 - CONCLUSION: 1. Marrow edema and mild marrow enhancement in the proximal fourth metatarsal suspicious for an early osteomyelitis. 2. Complex fluid collection in the lateral foot near the base of the fourth metatarsal, probably an abscess with surrounding cellulitis. 3. Extensive marrow edema in the midfoot as above, probably reactive. Patchy low signal in the navicular and cuboid may indicate some avascular necrosis. 4. Postoperative resection of the fifth toe and fifth metatarsal. Francisco Grider MD Ankle MRI 10/24/17 0000 Signed Impressions: Service Date/Time: Tuesday, October 24, 2017 10:08 - CONCLUSION: 1. No definite evidence for osteomyelitis around the right ankle. Marrow edema however has increased slightly since the prior exam, probably reactive and possibly associated with a developing Charcot arthropathy. Low signal patchy areas within the tarsal navicular are suspicious for developing avascular necrosis. There is edema in the soft tissues of the hindfoot. Trace joint fluid. Francisco Grider MD Foot X-Ray 10/23/17 0000 Signed Impressions: Service Date/Time: October 17:15 - CONCLUSION: 1. 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 Lupillo Webster MD Thoracentesis Ultrasound 10/20/17 0600 Signed Impressions: Service Date/Time: Friday, October 20, 2017 13:03 - CONCLUSION: Uncomplicated ultrasound guided thoracentesis. Smooth Saucedo MD Chest Ultrasound 10/17/17 0000 Signed Impressions: Service Date/Time: Tuesday, October 17, 2017 20:24 - CONCLUSION: A moderate to large right pleural effusion is confirmed sonographically and marked for thoracentesis. Hector Pierre MD Chest CT 10/16/17 0000 Signed Impressions: Service Date/Time: October 20:14 - CONCLUSION: Moderate-sized bilateral pleural effusions with adjacent compressive atelectasis and/or pneumonia. Scattered increased interstitial infiltrates within the perihilar regions and upper lobes bilaterally raising the possibility of pulmonary vascular congestion. Cardiomegaly and coronary artery calcifications are noted. Mild pretracheal and AP window mediastinal lymphadenopathy which is nonspecific. Degenerative changes and mild scoliosis of the thoracic spine. Hector Pierre MD Aspiration 10/16/17 0000 Signed Impressions: Service Date/Time: October 15:48 - CONCLUSION: Uncomplicated aspiration as above. Chetan Escobedo MD Abdomen/Pelvis CT 10/16/17 0000 Signed Impressions: Service Date/Time: October 20:14 - CONCLUSION: 1. Moderate-sized bilateral pleural effusions with adjacent consolidations consistent with atelectasis and/or pneumonia. 2. Tiny calcified nonobstructing bilateral renal calculi. 3. Mild hepatosplenomegaly. 4. Uncomplicated colonic diverticulosis. 5. Minimal free fluid within the pelvis. 6. Streakiness and fluid within the bilateral retroperitoneum inferior to the kidneys and extending into the presacral region. 7. Degenerative changes and scoliosis of the thoracolumbar spine. Hector Pierre MD Knee X-Ray 10/15/17 0000 Signed Impressions: Service Date/Time: Sunday, October 15, 2017 15:26 - CONCLUSION: Large joint effusion otherwise negative. Tu Lmi MD FACR Carotid Artery Ultrasound 10/13/17 0000 Signed Impressions: Service Date/Time: Friday, October 13, 2017 16:12 - CONCLUSION: No evidence of flow-limiting carotid stenosis. Wm Riley MD Aorta w/Runoff CTA 10/13/17 0000 Signed Impressions: Service Date/Time: Friday, October 13, 2017 22:41 - CONCLUSION: 1. No aortic occlusive disease. 2. No significant iliac inflow stenosis. 3. No significant outflow stenosis. 4. Diffuse bilateral runoff disease with heavily calcified tibial arteries and significant venous contamination precluding patency evaluation beyond the very proximal calf. 5. Small to moderate bilateral pleural effusions with associated airspace disease at the lung bases, presumably atelectasis. 6. Trace free fluid in the deep pelvis. 7. Ancillary findings include hepatic steatosis, nonobstructing punctate calyceal calculus in the inferior pole of the left kidney and small suprapatellar right joint effusion. Lupillo Webster MD Objective Remarks GENERAL: Thin, somewhat ill-appearing male patient in NAD. Awake and alert. Sitting up in bed. SKIN: Warm and dry. Pale. Diffuse slightly erythematous papular rash over back. HEAD: Normocephalic. Atraumatic. EYES: EOMI. No scleral icterus. No injection or drainage. ENT: No nasal bleeding or discharge. Mucous membranes pink and moist. Poor dentition. NECK: Supple. Trachea midline. CARDIOVASCULAR: Tachycardic. S1, S2 noted. No murmur appreciated. RESPIRATORY: Nonlabored. Clear to auscultation. Breath sounds equal bilaterally. GASTROINTESTINAL: Abdomen soft, non-tender, nondistended. Normoactive bowel sounds x4. MUSCULOSKELETAL: Extremities without clubbing or cyanosis. (+)Edematous right knee that is much improved per patient. Improving ROM. Right foot s/p 5th toe amputation, wound VAC in place NEUROLOGICAL: Awake and alert. No obvious cranial nerve deficits. Motor and sensory grossly within normal limits. Normal speech. PSYCHIATRIC: Appropriate mood and affect; insight and judgment normal. Procedures 10/08/17 Right foot and ankle incision drainage, 5th metatarsal resection, 5th digit amputation 10/25/17 Incision and drainage Right foot/ankle abscess with bone biopsy right 4th metatarsal base; wound vac placement 11/07/17 EGD showing gastritis, esophagitis and hiatal hernia, Colonoscopy showing diverticulosis, internal and external hemorrhoids Medications and IVs Current Medications Medications (Trade) Dose Ordered Sig/Anna Route Start Time Stop Time Status Last Admin (NS Flush) 2 ml UNSCH PRN IV FLUSH 10/07/17 16:45 10/21/17 23:13 (NS Flush) 2 ml BID IV FLUSH 10/07/17 21:00 11/08/17 09:00 (Narcan Inj) 0.4 mg UNSCH PRN IV PUSH 10/07/17 16:45 (D50w (Vial) Inj) 50 ml UNSCH PRN IV PUSH 10/08/17 10:30 (Glucagon Inj) 1 mg UNSCH PRN OTHER 10/08/17 10:30 (NovoLOG SUPPLEMENTAL SCALE) 1 ACHS SLIDING SCALE SQ 10/08/17 12:00 11/08/17 09:15 (Lactinex) 1 tab Q12HR PO 10/08/17 21:00 11/08/17 09:14 (NovoLOG INJ) 5 units TIDAC SQ 10/12/17 08:00 11/08/17 09:15 (Levemir Inj) 15 units HS SQ 10/12/17 21:00 11/04/17 21:56 (Restoril) 15 mg HS PRN PO 10/13/17 12:45 10/28/17 21:54 (Tylenol) 500 mg Q4H PRN PO 10/13/17 13:15 11/02/17 20:31 (Santyl Oint) 1 applic DAILY TOPICAL 10/22/17 12:00 11/07/17 08:32 (Neurontin) 600 mg TID PO 10/23/17 18:00 11/08/17 09:14 (Percocet 5-325 Mg) 1 tab Q4H PRN PO 10/31/17 12:15 (Percocet 10-325 Mg) 1 tab Q4H PRN PO 10/31/17 12:15 11/08/17 08:32 Daptomycin 640 mg/ Sodium Chloride 100 ml @ 200 mls/hr Q24H IV 10/31/17 16:00 11/07/17 16:34 (Levaquin) 750 mg DAILY PO 11/02/17 16:00 11/08/17 09:14 (Morphine Inj) 1 mg Q4H PRN IV PUSH 11/04/17 08:30 11/08/17 02:03 (Morphine Inj) 2 mg BID PRN IV PUSH 11/04/17 08:30 11/07/17 12:17 (Protonix Inj) 40 mg DAILY IV PUSH 11/05/17 09:45 11/08/17 09:14 (Lasix) 20 mg DAILY PO 11/06/17 09:00 11/08/17 09:14 Lactated Ringer's 1,000 ml @ 30 mls/hr Q24H PRN IV 11/07/17 11:15 11/10/17 11:14 11/07/17 10:28 Sodium Chloride 500 ml @ 30 mls/hr [id number] PRN IV 11/07/17 11:15 11/10/17 11:14 (Lopressor) 25 mg QUALITATIVE RESEARCHER PRN PO 11/07/17 11:15 11/10/17 11:14 (Betadine 5% Antisepsis Kit) 1 applic QUALITATIVE RESEARCHER PRN EACH NARE 11/07/17 11:15 11/10/17 11:14 (Chlorhexidine 2% Cloth) 3 pack QUALITATIVE RESEARCHER PRN TOPICAL 11/07/17 11:15 11/10/17 11:14 (NovoLIN R INJ) See Protocol Table ... QUALITATIVE RESEARCHER PRN SQ 11/07/17 11:15 11/10/17 11:14 A/P Problem List: (1) Osteomyelitis of foot ICD Code: M86.9 - Osteomyelitis, unspecified (2) Leukocytosis ICD Code: D72.829 - Elevated white blood cell count, unspecified (3) Dehydration with hyponatremia ICD Code: E87.1 - Hypo-osmolality and hyponatremia (4) Acute kidney injury ICD Code: N17.9 - Acute kidney failure, unspecified (5) Sepsis ICD Code: A41.9 - Sepsis, unspecified organism Status: Acute (6) Diabetic foot ulcer ICD Code: E11.621 - Type 2 diabetes mellitus with foot ulcer; L97.509 - Non- pressure chronic ulcer of other part of unspecified foot with unspecified severity Status: Acute (7) Acute renal failure superimposed on stage 3 chronic kidney disease ICD Code: N17.9 - Acute kidney failure, unspecified; N18.3 - Chronic kidney disease, stage 3 (moderate) (8) Bacteremia due to Gram-positive bacteria ICD Code: R78.81 - Bacteremia (9) Postoperative anemia ICD Code: D64.9 - Anemia, unspecified Assessment and Plan This is a 57-year-old male who presented with sepsis Sepsis-- Secondary to diabetic foot infection, bacteremia, right foot osteomyelitis: -Tmax 100.0 today. Repeat lab ordered, UA and CXR. -Blood cx 10/08 positive for Staph and Strep not A,B,D. Multiple repeat BCX negative. -Continue to monitor fevers. ? drug fever- clinically looks well Right foot osteomyelitis:S /P irrigation/debridement with wound vac placement 06/04. - S. aureus -Status post incision and drainage, fifth metatarsal resection, fifth digit amputation on 10/08/17. Podiatry is recommending IV antibiotics on discharge. Final antibiotic recommendations per infectious disease. Continue wound care. Continue on pain meds prn. -Rocephin discontinued on 11/02/2017 secondary to possible drug fever. Levaquin and Zyvox DC'd 10/28/2017. -Wound culture growing staph and strep not A/B/D. Repeat wound cx growing Staph only. -Patient on daptomycin and Levaquin. CK ordered for today. -ID ff Right knee effusion:- Resolving -Appreciate orthopedic surgery recommendations. So far cultures are negative. Bilateral pleural effusion:-improved clinically Elevated BNP- clinically appears comfortable r/o underlying CHF- ? from heart failure from anemia -pulmonary - stable-respiratory [place]- no SOB- up and ambulating -Appreciate pulmonology recommendations. Status post right-sided thoracentesis. Cytology is negative for malignant cells. -2D echo- EF 55# -S/P Lasix 20 mg IV 11/05 -Continue on Lasix 20 mg po daily -continue to monitor respiratory status, currently 95% on room air Peripheral vascular disease: -Appreciate vascular surgery recommendations. Per vascular surgery, no surgical intervention is planned. Postoperative anemia: H and H dropped r/o GIB- black stools- stools tested negative for guaiac -Received transfusion of 3 units PRBCs. Last unit given 11/05. Monitor H&H. -GI following, s/p EGD/colonoscopy showing gastritis, esophagitis, hiatal hernia , diverticulosis and internal and external hemorrhoids. Recommendations - Continue PPI, Anti-reflux regimen, probiotics, capsule endoscopy op, okay to resume anticoagulation, f/u with GI at discharge, f/u biopsy results -Change from IV Protonix to oral -Repeat CBC today -Iron 13, TIBC 206, % sat 6.3, Ferritin 412. ? IV Venofer. Consult Hematology , appreciate recommendations. Continue to hold Heparin until ok with Hematology. Diabetes mellitus type 2: - good readings -Continue Levemir. Monitor Accu-Cheks and cover with sliding scale insulin. Continue preprandial insulin as well. -change to low dose sliding scale Acute kidney injury superimposed on chronic kidney disease stage III- good urine output -Creatinine continues to improve. Repeat BMP ordered for today. Stage one pressure ulcer. -Patient needs turning every 2 hours. PT working with patient. DVT prophylaxis: Heparin on hold Discharge Planning Patient most likely require outpatient IV antibiotics and wound VAC changes. d/w patient- may need PICC for jail IV antibiotic administration- refused PICC states homeless - lives in the [place] Problem Qualifiers (1) Sepsis: Qualified Codes: A41.9 - Sepsis, unspecified organism (2) Diabetic foot ulcer: Qualified Codes: E10.621 - Type 1 diabetes mellitus with foot ulcer; L97.419 - Non-pressure chronic ulcer of right heel and midfoot with unspecified severity Ami Prado Nov 08, 2017 09:59
--- NOTE | 2017-11-08 11:04 | RADRPT ---
EXAM DATE/TIME: 11/08/2017 10:43 [facility] COMPARISON: CHEST SINGLE AP, November 04, 2017, 12:29. INDICATIONS : Fever MEDICAL HISTORY : renal calculi, diabetes, hallucinations SURGICAL HISTORY : right foot surgery ENCOUNTER: Initial ACUITY: 1 day PAIN SCORE: 0/10 LOCATION: Bilateral chest FINDINGS: Bibasilar infiltrates are stable. The heart is stable. There has been no significant change compared to the previous examination. CONCLUSION: Bibasilar infiltrates. Hector Pierre MD on November 08, 2017 at 11:00 Board Certified Radiologist. This report was verified electronically.
[2017-11-08 12:00] VITALS: BP 128/73; PULSE 99; RESP 20; TEMP 99.8; O2SAT 99
--- NOTE | 2017-11-08 15:07 | HHI.PR ---
Subjective Remarks 57 YOWm with DM,Diabetic foot ulcer,Pl eff, Lung infilt US chest Mod to large Rt Pl eff Breathing better uses 02 off and on Had colonoscopy Low grade fever Objective Vital Signs Vital Signs Date Time Temp Pulse Resp B/P (MAP) Pulse Ox O2 Delivery O2 Flow Rate FiO2 11/08/17 12:00 99.8 99 20 128/73 (91) 99 11/08/17 08:00 100.0 100 20 138/75 (96) 95 11/08/17 04:00 99.1 106 19 114/63 (80) 95 11/08/17 00:00 98.9 91 19 122/75 (91) 95 11/07/17 20:00 98.2 95 19 121/69 (86) 94 11/07/17 20:00 Room Air 11/07/17 16:00 99.7 96 20 128/67 (87) 95 I/O 11/07/17 11/07/17 11/07/17 11/08/17 11/08/17 11/08/17 06:59 14:59 22:59 06:59 14:59 22:59 Intake Total 0 ml 50 ml 720 ml 960 ml Output Total 750 ml 1300 ml 1200 ml Balance -750 ml 50 ml -580 ml -240 ml Intake Oral 0 ml 720 ml 960 ml Other 50 ml Output Urine Total 750 ml 1300 ml 1200 ml # Bowel Movements 5 Result Diagram: 11/06/17 0640 11/06/17 0640 Objective Remarks GENERAL: WBWN WM,NAD SKIN: Warm and dry. HEAD: Normocephalic. EYES: No scleral icterus. No injection or drainage. NECK: Supple, trachea midline. No JVD or lymphadenopathy. CARDIOVASCULAR: Regular rate and rhythm without murmurs, gallops, or rubs. RESPIRATORY: Breath sounds equal bilaterally. No accessory muscle use. Decreased BS at Bases GASTROINTESTINAL: Abdomen soft, non-tender, nondistended. MUSCULOSKELETAL: No cyanosis, or edema. Foot ulcer, VAC device BACK: Nontender without obvious deformity. No CVA tenderness. A/P Assessment and Plan Bilat Pl effusion Lung infilt/ septic emboli DM Foot Ulcer PLAN: Pl fluid cytology, cultures neg Cont Abx Cubicin and Levaquin per ID Supplement 02 to keep sat >90% Stable from pulm standpoint Available prn over weekend. Curtis Liao MD 24, 2018 15:07
[2017-11-08] MEDS: DAPTOMYCIN IV SCH (15:44)
[2017-11-08] MEDS: SODIUM CHLORIDE 0.9% IV SCH (15:44)
[2017-11-08 16:00] VITALS: BP 132/72; PULSE 100; RESP 20; TEMP 99.3; O2SAT 94
--- NOTE | 2017-11-08 16:51 | HHI.GIFU ---
Subjective Remarks Pt resting in bed States he is too cold and does not want to be examined Has not had BM since endoscopic procedures yesterday but states has had a lot of flatus Denies abdominal pain Some nausea, denies emesis Tolerating PO Objective Vitals I&O Vital Signs Date Time Temp Pulse Resp B/P (MAP) Pulse Ox O2 Delivery O2 Flow Rate FiO2 11/08/17 16:00 99.3 100 20 132/72 (92) 94 11/08/17 12:00 99.8 99 20 128/73 (91) 99 11/08/17 08:00 100.0 100 20 138/75 (96) 95 11/08/17 07:00 Room Air 11/08/17 04:00 99.1 106 19 114/63 (80) 95 11/08/17 00:00 98.9 91 19 122/75 (91) 95 11/07/17 20:00 98.2 95 19 121/69 (86) 94 11/07/17 20:00 Room Air I/O 11/07/17 11/07/17 11/07/17 11/08/17 11/08/17 11/08/17 07:00 15:00 23:00 07:00 15:00 23:00 Intake Total 0 ml 50 ml 720 ml 960 ml Output Total 750 ml 1300 ml 1200 ml Balance -750 ml 50 ml -580 ml -240 ml Intake Oral 0 ml 720 ml 960 ml Other 50 ml Output Urine Total 750 ml 1300 ml 1200 ml # Bowel Movements 5 Laboratory Date/Time Source Procedure Growth Status 10/31/17 14:46 Blood Peripheral Aerobic Blood Culture - Final NO GROWTH IN 5 DAYS Complete 10/31/17 14:46 Blood Peripheral Anaerobic Blood Culture - Final NO GROWTH IN 5 DAYS Complete 10/20/17 14:25 Fluid Pleural Fluid Fungal Smear - Final NO FUNGAL ELEMENTS SEEN. Resulted 10/20/17 14:25 Fluid Pleural Fluid Fungal Culture - Preliminary NO GROWTH IN 2 WEEKS Resulted 11/05/17 10:00 Stool Stool Stool Occult Blood (MILA) - Final HEMOCCULT NEGATIVE Complete 10/25/17 08:55 Wound Foot Fungal Smear - Final NO FUNGAL ELEMENTS SEEN. Resulted 10/25/17 08:55 Wound Foot Fungal Culture - Preliminary NO GROWTH IN 2 WEEKS Resulted Imaging Last Impressions Chest X-Ray 11/04/17 0000 Signed Impressions: Service Date/Time: Saturday, November 04, 2017 12:29 - CONCLUSION: 1. Cardiomegaly with bilateral perihilar edema greater on the left, likely from CHF and pulmonary edema. 2. Underlying infiltrate cannot be excluded. Jairon Malcolm MD Lower Extremity Ultrasound 10/28/17 0000 Signed Impressions: Service Date/Time: Saturday, October 28, 2017 16:26 - CONCLUSION: 1. Negative for deep venous thrombosis. Mildly enlarged right inguinal lymph nodes. Francisco Grider MD Foot MRI 10/24/17 0000 Signed Impressions: Service Date/Time: Tuesday, October 24, 2017 10:08 - CONCLUSION: 1. Marrow edema and mild marrow enhancement in the proximal fourth metatarsal suspicious for an early osteomyelitis. 2. Complex fluid collection in the lateral foot near the base of the fourth metatarsal, probably an abscess with surrounding cellulitis. 3. Extensive marrow edema in the midfoot as above, probably reactive. Patchy low signal in the navicular and cuboid may indicate some avascular necrosis. 4. Postoperative resection of the fifth toe and fifth metatarsal. Francisco Grider MD Ankle MRI 10/24/17 0000 Signed Impressions: Service Date/Time: Tuesday, October 24, 2017 10:08 - CONCLUSION: 1. No definite evidence for osteomyelitis around the right ankle. Marrow edema however has increased slightly since the prior exam, probably reactive and possibly associated with a developing Charcot arthropathy. Low signal patchy areas within the tarsal navicular are suspicious for developing avascular necrosis. There is edema in the soft tissues of the hindfoot. Trace joint fluid. Francisco Grider MD Foot X-Ray 10/23/17 0000 Signed Impressions: Service Date/Time: October 17:15 - CONCLUSION: 1. 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 Lupillo Webster MD Thoracentesis Ultrasound 10/20/17 0600 Signed Impressions: Service Date/Time: Friday, October 20, 2017 13:03 - CONCLUSION: Uncomplicated ultrasound guided thoracentesis. Smooth Saucedo MD Chest Ultrasound 10/17/17 0000 Signed Impressions: Service Date/Time: Tuesday, October 17, 2017 20:24 - CONCLUSION: A moderate to large right pleural effusion is confirmed sonographically and marked for thoracentesis. Hector Pierre MD Chest CT 10/16/17 0000 Signed Impressions: Service Date/Time: October 20:14 - CONCLUSION: Moderate-sized bilateral pleural effusions with adjacent compressive atelectasis and/or pneumonia. Scattered increased interstitial infiltrates within the perihilar regions and upper lobes bilaterally raising the possibility of pulmonary vascular congestion. Cardiomegaly and coronary artery calcifications are noted. Mild pretracheal and AP window mediastinal lymphadenopathy which is nonspecific. Degenerative changes and mild scoliosis of the thoracic spine. Hector Pierre MD Aspiration 10/16/17 0000 Signed Impressions: Service Date/Time: October 15:48 - CONCLUSION: Uncomplicated aspiration as above. Chetan Escobedo MD Abdomen/Pelvis CT 10/16/17 0000 Signed Impressions: Service Date/Time: October 20:14 - CONCLUSION: 1. Moderate-sized bilateral pleural effusions with adjacent consolidations consistent with atelectasis and/or pneumonia. 2. Tiny calcified nonobstructing bilateral renal calculi. 3. Mild hepatosplenomegaly. 4. Uncomplicated colonic diverticulosis. 5. Minimal free fluid within the pelvis. 6. Streakiness and fluid within the bilateral retroperitoneum inferior to the kidneys and extending into the presacral region. 7. Degenerative changes and scoliosis of the thoracolumbar spine. Hector Pierre MD Knee X-Ray 10/15/17 0000 Signed Impressions: Service Date/Time: Sunday, October 15, 2017 15:26 - CONCLUSION: Large joint effusion otherwise negative. Tu Lim MD FACR Carotid Artery Ultrasound 10/13/17 0000 Signed Impressions: Service Date/Time: Friday, October 13, 2017 16:12 - CONCLUSION: No evidence of flow-limiting carotid stenosis. Wm Riley MD Aorta w/Runoff CTA 10/13/17 0000 Signed Impressions: Service Date/Time: Friday, October 13, 2017 22:41 - CONCLUSION: 1. No aortic occlusive disease. 2. No significant iliac inflow stenosis. 3. No significant outflow stenosis. 4. Diffuse bilateral runoff disease with heavily calcified tibial arteries and significant venous contamination precluding patency evaluation beyond the very proximal calf. 5. Small to moderate bilateral pleural effusions with associated airspace disease at the lung bases, presumably atelectasis. 6. Trace free fluid in the deep pelvis. 7. Ancillary findings include hepatic steatosis, nonobstructing punctate calyceal calculus in the inferior pole of the left kidney and small suprapatellar right joint effusion. Lupillo Webster MD Physical Exam Pt declining exam, states he is too cold. Does not appear to be in any distress , non labored respirations. Assessment and Plan Plan ASSESSMENT - anemia, black tarry stool - HH trending down. heme occult pending. normocytic anemia. report black stool for last week. no obvious bleeding. no prior hx GIB. never had EGD or colonoscopy 11/06/17 pt did not take much prep, will try again tomorrow. d/w him how to drink, he says nobody told him and he didn't think he had to keep drinking it. HH relatively stable. no obvious bleeding. (11/08) --> S/P EGD and colonoscopy yesterday --> Gastritis, esophagitis. normal duodenum. Diverticulosis in the sigmoid and descending colon. Internal and external hemorrhoids. H/H has not been repeated in two days. Pt denies BM since procedure. Seen by hematology, who is doing further work up for anemia. PLAN - EGD biopsies pending - Protonix - Probiotics - Capsule endoscopy output - OK to restart anticoagulation from a GI standpoint - GI will sign off, please reconsult as needed Pt has been seen and examined by myself and Dr. Sewell and this note is written on her behalf Bailey Butler Nov 08, 2017 16:51
[2017-11-08 18:16] LABS: AUTOMATED NEUTROPHIL # 8.4 TH/MM3 (1.8-7.7); BASOPHIL % 0.4 % (0.0-2.0); EOSINOPHIL # 0.1 TH/MM3 (0-0.4); EOSINOPHIL % 1.3 % (0.0-4.0); HEMATOCRIT 25.4 % (39.0-51.0); HEMOGLOBIN 8.8 GM/DL (13.0-17.0); LYMPH % 12.4 % (9.0-44.0); LYMPHOCYTE # 1.3 TH/MM3 (1.0-4.8); MEAN CELL VOLUME 80.8 FL (80.0-100.0); MEAN CORPUSCULAR HEMOGLOBIN 27.9 PG (27.0-34.0); MEAN CORPUSCULAR HGB CONC 34.5 % (32.0-36.0); MEAN PLATELET VOLUME 7.5 FL (7.0-11.0); MONO % 6.5 % (0.0-8.0); MONOCYTE # 0.7 TH/MM3 (0-0.9); NEUT % 79.4 % (16.0-70.0); PLATELET COUNT 439 TH/MM3 (150-450); RED BLOOD COUNT 3.14 MIL/MM3 (4.50-5.90); RED CELL DISTRIBUTION WIDTH 15.9 % (11.6-17.2); WHITE BLOOD COUNT 10.6 TH/MM3 (4.0-11.0)
[2017-11-08 18:43] LABS: BICARBONATE 26.8 MEQ/L (21.0-32.0); CALCIUM 8.6 MG/DL (8.5-10.1); CREATININE 1.03 MG/DL (0.60-1.30)
--- NOTE | 2017-11-08 19:26 | MB ---
cc: Emma Ferguson MD, Tabitha N MD DATE: 10/07/2017 CHIEF COMPLAINT: 1. Anemia. 2. Anemia of chronic disease. 3. Status post blood transfusion. 4. Diabetic foot wound. HISTORY OF PRESENT ILLNESS: Mr. Mark is a 57-year-old man with a history of type 2 diabetes mellitus, who was admitted to the emergency room on 10/07/2017 with dizziness, falls, chills, fever, loss of appetite and diarrhea. Prior to this hospitalization, he was hospitalized from 05/08/2017 to 05/29/2017 with a diabetic foot ulcer. Per report, this foot ulcer began in 10/2016. During hospitalization, he underwent surgical debridement with wound VAC placement, and was discharged on IV Rocephin through a PICC line. He was following up with Dr. Buckley and [facility] and, per report from the patient and , everything had been improving leading up to this admission. He was found to have worsening foot injection. The infectious disease team was consulted and he was initially placed on broad spectrum antibiotics including Zosyn and vancomycin. He was found to have a Gram positive bacteremia secondary to right foot osteomyelitis and cellulitis. On 10/08, he underwent right foot and ankle incision and drainage and fifth metatarsal resection of fifth digit amputation. This was done under the direction of Dr. Aguayo. Cardiovascular surgery team is following as well as the psychiatric team. He had a wound VAC placement after his surgery. On 10/15, he underwent repeat incision and drainage of right foot and ankle with wound VAC placement and left foot fifth metatarsal plantar ulcer debridement and irrigation. This was done under the direction of Dr. Hobbs. He had an aspiration done also on 10/16 by the interventional radiology team. He has been consulted on by the pulmonary team for evaluation of pleural effusion and lung infiltrates. This was by Dr. Liao. He is currently on antibiotics including Rocephin, Levaquin and Zyvox. Wound culture growing staph and strep. Wound VAC is still in place. Podiatry team is following. He has a right knee effusion, which is improving. Orthopedic surgery has been consulted and no intervention planned at this time. Bilateral pleural effusion is present. He is status post right-sided thoracentesis with negative cytology. CT scan of the abdomen and pelvis with moderate sized bilateral pleural effusions with adjacent consolidations consistent with atelectasis and/or pneumonia, tiny calcified nonobstructing bilateral renal calculi and mild hepatosplenomegaly. Uncomplicated colonic diverticulosis, minimal free fluid within the pelvis, streakiness and fluid within the bilateral retroperitoneum inferior to the kidneys extending into the presacral region, degenerative changes and scoliosis of the thoracolumbar spine. Chest CT showed moderate bilateral pleural effusions with adjacent compressive atelectasis and/or pneumonia. Scattered increased interstitial infiltrates within the perihilar regions and upper lobes bilaterally, raising the possibility of pulmonary vascular congestion. Cardiomegaly and coronary artery calcifications are noted. Pretracheal and AP window mediastinal lymphadenopathy which is nonspecific. He is status post EGD which showed gastritis, esophagitis, and a normal duodenum. Biopsies were taken. Colonoscopy showed diverticulosis in the sigmoid colon and internal hemorrhoids. He is status post transfusion of 3 units of packed red blood cells. Biopsy from EGD procedure is pending. LABORATORY STUDIES: Sodium 136, potassium 4.1, creatinine 0.99, calcium 8.3. Iron of 13, total iron binding capacity of 206, percent saturation is 6.3 and ferritin is 412. Vitamin B12 is greater than 1500 and folate is greater than 20. White blood cell count is 8.4, hemoglobin 7.2 and a platelet count of 345,000. MCV is 81.3. The patient had leukocytosis on admission with a left shift and a bandemia. This has resolved. Hemoglobin on admission 9.3. It appears like from previous hospitalization that the patient's hemoglobin was variable as well. The patient reports that he is having pain in his right knee and right foot, decreased mobility, fatigue and diarrhea. REVIEW OF SYSTEMS: As above in the HPI. PAST MEDICAL HISTORY: Diabetes mellitus type 2. PAST SURGICAL HISTORY: Right foot debridement and removal of kidney stones. ALLERGIES: NO KNOWN DRUG ALLERGIES FAMILY HISTORY: No known family history of anemia. SOCIAL HISTORY: Former tobacco and alcohol user. Denies illegal drug use. He lives with his mother. He is . HOSPITAL MEDICATIONS: Include daptomycin, Lasix, gabapentin, hydrocortisone, insulin aspart, insulin Detemir, metoprolol, morphine as needed for pain, oxycodone, Tylenol as needed for pain, pantoprazole, temazepam. PHYSICAL EXAMINATION: VITAL SIGNS: Temperature 99.8, pulse 99, respiratory rate 20, blood pressure 128/73, pulse oximetry 99% on room air. GENERAL: Thin, chronically ill-appearing man in no distress. NECK: Supple with no palpable lymphadenopathy. OP clear. RESPIRATORY: Clear to auscultation bilaterally. CARDIOVASCULAR: Regular rate and rhythm with no murmurs. ABDOMEN: Soft, nontender, nondistended with bowel sounds present. EXTREMITIES: Right leg with a wound VAC in place. Erythema, tenderness of knee. NEUROLOGIC: Grossly nonfocal. ASSESSMENT AND PLAN: Anemia with vitamin B12 and folate that are replete. ESR greater than 140. CRP elevated at 18.7, iron level of 13, total iron binding capacity of 206, percent sat of 6.3 and a ferritin of 412. Hemoglobin is variable approximately 7-8 during this hospital stay with a ramona of 6.7. He is status post transfusion of 3 units of packed red blood cells. He is status post colonoscopy which revealed hemorrhoids and esophagogastroduodenoscopy which revealed gastritis. Multiple factors are likely contributing to his anemia including anemia of inflammation associated with his infection, his sepsis as well as resulting inflammation. This results in reduced availability of iron due to decreased absorption of iron from the gastrointestinal tract and decreased release of iron from macrophages and this shortens the red blood cell lifespan. No evidence of hemolysis. He has some irritation of his gastrointestinal tract. Hemoccult is negative. Some degree of iatrogenic blood loss with recent surgery as well as phlebotomy. We will continue to follow hemoglobin. We will not give further iron supplementation, as he has already received approximately 750 mg of elemental iron with packed red blood cell transfusion and suspect that even if he were to receive further iron that he would not be able to mobilize this iron. We will check reticulocyte count, LDH, haptoglobin, as well as peripheral blood smear for evaluation. We will continue to trend hemoglobin. I do not suspect underlying bone marrow disorder given abnormality of white blood cell count as well as platelet count; however, if red blood cells continue to be low and do not improve, especially if his overall clinical condition improves, could consider bone marrow in the future. This was discussed with the patient and . MD JAGDEEP Erickson//rh , 03:24 PM , 06:46 PM JENNIFER
[2017-11-08 20:00] VITALS: BP 116/66; PULSE 108; RESP 18; TEMP 100.4; O2SAT 95
[2017-11-08] MEDS: HYDROCORTISONE 2.5% CREAM 30 GM TOPICAL SCH (21:00)
[2017-11-08] MEDS: INSULIN DETEMIR 100 UNITS/ML VIAL SQ SCH (21:00)
[2017-11-08] MEDS: ACETAMINOPHEN 500 MG CPLT PO PRN (21:35)
[2017-11-09] VITALS: BP 100/59; PULSE 98; RESP 17; TEMP 99.7; O2SAT 95
[2017-11-09] MEDS: oxyCODONE/ACETAMINOPHEN 10 MG/325 MG TAB PO PRN ×6 (01:50→22:36)
[2017-11-09] MEDS: MORPHINE SULFATE 2 MG/ML SYRINGE IV PUSH PRN ×5 (03:54→21:22)
[2017-11-09 04:00] VITALS: BP 115/66; PULSE 96; RESP 18; TEMP 98.7; O2SAT 97
[2017-11-09 06:39] LABS: BILIRUBIN, URINE NEG (NEG); BLOOD, URINE NEG (NEG); GLUCOSE,URINE NEG (NEG); KETONE, URINE NEG (NEG); NITRITE,URINE NEG (NEG); PH, URINE 6.5 (5.0-8.5); URINE COLOR LIGHT-YELLOW (YELLW/STRAW); URINE LEUKOCYTE ESTERASE NEG (NEG)
[2017-11-09 07:52] LABS: RETIC % 1.9 % (0.4-3.0)
[2017-11-09 07:56] LABS: AUTOMATED NEUTROPHIL # 6.5 TH/MM3 (1.8-7.7); BASOPHIL # 0.1 TH/MM3 (0-0.2); BASOPHIL % 0.8 % (0.0-2.0); EOSINOPHIL # 0.2 TH/MM3 (0-0.4); EOSINOPHIL % 1.9 % (0.0-4.0); HEMOGLOBIN 8.2 GM/DL (13.0-17.0); LYMPH % 15.1 % (9.0-44.0); LYMPHOCYTE # 1.3 TH/MM3 (1.0-4.8); MEAN CELL VOLUME 79.8 FL (80.0-100.0); MEAN CORPUSCULAR HEMOGLOBIN 27.3 PG (27.0-34.0); MEAN CORPUSCULAR HGB CONC 34.2 % (32.0-36.0); MEAN PLATELET VOLUME 7.6 FL (7.0-11.0); MONO % 8.2 % (0.0-8.0); MONOCYTE # 0.7 TH/MM3 (0-0.9); PLATELET COUNT 405 TH/MM3 (150-450); RED BLOOD COUNT 3.01 MIL/MM3 (4.50-5.90); WHITE BLOOD COUNT 8.8 TH/MM3 (4.0-11.0)
[2017-11-09 08:00] VITALS: BP 119/60; PULSE 98; RESP 20; TEMP 99.5; O2SAT 97
[2017-11-09] MEDS: INSULIN ASPART SUPPLEMENTAL SCALE SQ SCH ×4 (08:00→21:00)
[2017-11-09] MEDS: PANTOPRAZOLE SOD 40 MG DELAYED RELEASE TAB PO SCH (08:33)
[2017-11-09] MEDS: GABAPENTIN 300 MG CAP PO SCH ×3 (08:33→17:14)
[2017-11-09] MEDS: LACTOBACILLUS ACIDOPHILUS TAB PO SCH ×2 (08:33→21:21)
[2017-11-09] MEDS: LEVOFLOXACIN 750 MG TAB PO SCH (08:33)
[2017-11-09] MEDS: FUROSEMIDE 20 MG TAB PO SCH (08:34)
[2017-11-09] MEDS: INSULIN ASPART 1,000 UNITS/10 ML VIAL SQ SCH ×3 (08:34→18:01)
[2017-11-09] MEDS: SODIUM CHLORIDE 0.9% FLUSH 10 ML FLUSH IV FLUSH SCH ×2 (08:43→21:21)
[2017-11-09] MEDS: HYDROCORTISONE 2.5% CREAM 30 GM TOPICAL SCH ×2 (09:00→21:00)
[2017-11-09] MEDS: COLLAGENASE OINT 30 GM TUBE TOPICAL SCH (10:00)
[2017-11-09 12:00] VITALS: BP 136/74; PULSE 100; RESP 20; TEMP 99.5; O2SAT 94
--- NOTE | 2017-11-09 13:03 | HHI.PR ---
Subjective Remarks "I have pain in my knee and foot" "It seems like migrating it better when they given her long-lasting insulin "!! No fever or chills Objective Vitals Vital Signs Date Time Temp Pulse Resp B/P (MAP) Pulse Ox O2 Delivery O2 Flow Rate FiO2 11/09/17 12:00 99.5 100 20 136/74 (94) 94 11/09/17 08:00 99.5 98 20 119/60 (79) 97 11/09/17 04:00 Room Air 11/09/17 04:00 98.7 96 18 115/66 (82) 97 11/09/17 00:00 99.7 98 17 100/59 (73) 95 11/08/17 21:00 Room Air 11/08/17 20:00 100.4 108 18 116/66 (83) 95 11/08/17 16:00 99.3 100 20 132/72 (92) 94 I/O 11/08/17 11/08/17 11/08/17 11/09/17 11/09/17 11/09/17 07:00 15:00 23:00 07:00 15:00 23:00 Intake Total 960 ml 960 ml 240 ml Output Total 1200 ml 1825 ml 650 ml Balance -240 ml -865 ml -410 ml Intake Oral 960 ml 960 ml 240 ml Output Urine Total 1200 ml 1825 ml 650 ml Result Diagram: 11/09/17 0636 11/08/17 1650 Objective Remarks GENERAL: This is a well-nourished, well-developed patient, in no apparent distress. SKIN: No rashes, warm and dry HEAD: Atraumatic. Normocephalic. EYES: Pupils equal round and reactive. Extraocular motions intact. No scleral icterus. ENT: Nose without bleeding, or drainage, Airway patent. NECK: Trachea midline. Supple CARDIOVASCULAR: Regular rate and rhythm without murmurs, gallops, or rubs. RESPIRATORY: Fair air entry bilaterally. No wheezes, rales, or rhonchi. GASTROINTESTINAL: Abdomen soft, non-tender, nondistended. Positive bowel sounds MUSCULOSKELETAL: Extremities without clubbing, cyanosis, or edema. Pedal pulses appreciated, wound VAC in place right lower extremity NEUROLOGICAL: Awake and alert. Moves all extremity. Normal speech.no focal neurological deficit Procedures 10/08/17 Right foot and ankle incision drainage, 5th metatarsal resection, 5th digit amputation 10/25/17 Incision and drainage Right foot/ankle abscess with bone biopsy right 4th metatarsal base; wound vac placement 11/07/17 EGD showing gastritis, esophagitis and hiatal hernia, Colonoscopy showing diverticulosis, internal and external hemorrhoids A/P Problem List: (1) Osteomyelitis of foot ICD Code: M86.9 - Osteomyelitis, unspecified (2) Leukocytosis ICD Code: D72.829 - Elevated white blood cell count, unspecified (3) Dehydration with hyponatremia ICD Code: E87.1 - Hypo-osmolality and hyponatremia (4) Acute kidney injury ICD Code: N17.9 - Acute kidney failure, unspecified (5) Sepsis ICD Code: A41.9 - Sepsis, unspecified organism Status: Acute (6) Diabetic foot ulcer ICD Code: E11.621 - Type 2 diabetes mellitus with foot ulcer; L97.509 - Non- pressure chronic ulcer of other part of unspecified foot with unspecified severity Status: Acute (7) Acute renal failure superimposed on stage 3 chronic kidney disease ICD Code: N17.9 - Acute kidney failure, unspecified; N18.3 - Chronic kidney disease, stage 3 (moderate) (8) Bacteremia due to Gram-positive bacteria ICD Code: R78.81 - Bacteremia (9) Postoperative anemia ICD Code: D64.9 - Anemia, unspecified Assessment and Plan This is a 57-year-old male who presented with sepsis 11/09: Appreciate hematology consultation, agree no need for further iron supplement, continue current care for foot infection, further anemia workup when stable, CBC in a.m. Sepsis-- Secondary to diabetic foot infection, bacteremia, right foot osteomyelitis: -Tmax 100.0 today. Repeat lab ordered, UA and CXR. -Blood cx 10/08 positive for Staph and Strep not A,B,D. Multiple repeat BCX negative. -Continue to monitor fevers. ? drug fever- clinically looks well Right foot osteomyelitis:S /P irrigation/debridement with wound vac placement 06/04. - S. aureus -Status post incision and drainage, fifth metatarsal resection, fifth digit amputation on 10/08/17. Podiatry is recommending IV antibiotics on discharge. Final antibiotic recommendations per infectious disease. Continue wound care. Continue on pain meds prn. -Rocephin discontinued on 11/02/2017 secondary to possible drug fever. Levaquin and Zyvox DC'd 10/28/2017. -Wound culture growing staph and strep not A/B/D. Repeat wound cx growing Staph only. -Patient on daptomycin and Levaquin. CK -ID ff Right knee effusion:- Resolving -Appreciate orthopedic surgery recommendations. So far cultures are negative. Bilateral pleural effusion:-improved clinically Elevated BNP- clinically appears comfortable r/o underlying CHF- ? from heart failure from anemia -pulmonary - stable-respiratory [place]- no SOB- up and ambulating -Appreciate pulmonology recommendations. Status post right-sided thoracentesis. Cytology is negative for malignant cells. -2D echo- EF 55# -S/P Lasix 20 mg IV 11/05 -Continue on Lasix 20 mg po daily -continue to monitor respiratory status, currently 95% on room air Peripheral vascular disease: -Appreciate vascular surgery recommendations. Per vascular surgery, no surgical intervention is planned. Postoperative anemia: H and H dropped r/o GIB- black stools- stools tested negative for guaiac -Received transfusion of 3 units PRBCs. Last unit given 11/05. Monitor H&H. -GI following, s/p EGD/colonoscopy showing gastritis, esophagitis, hiatal hernia , diverticulosis and internal and external hemorrhoids. Recommendations - Continue PPI, Anti-reflux regimen, probiotics, capsule endoscopy op, okay to resume anticoagulation, f/u with GI at discharge, f/u biopsy results -Change from IV Protonix to oral -R monitor CBC -Iron 13, TIBC 206, % sat 6.3, Ferritin 412. Unlikely iron deficiency mostly chronic disease. Consult Hematology, appreciate recommendations. Continue to hold Heparin until ok with Hematology. Diabetes mellitus type 2: - good readings -Continue Levemir. Monitor Accu-Cheks and cover with sliding scale insulin. Continue preprandial insulin as well. -change to low dose sliding scale Acute kidney injury superimposed on chronic kidney disease stage III- good urine output -Creatinine continues to improve. Repeat BMP ordered for today. Stage one pressure ulcer. -Patient needs turning every 2 hours. PT working with patient. DVT prophylaxis: Heparin on hold Discharge Planning Patient most likely require outpatient IV antibiotics and wound VAC changes. d/w patient- may need PICC for jail IV antibiotic administration- refused PICC states homeless - lives in the [place] Problem Qualifiers (1) Sepsis: Qualified Codes: A41.9 - Sepsis, unspecified organism (2) Diabetic foot ulcer: Qualified Codes: E10.621 - Type 1 diabetes mellitus with foot ulcer; L97.419 - Non-pressure chronic ulcer of right heel and midfoot with unspecified severity Paras Roe MD Nov 09, 2017 13:02
[2017-11-09 16:00] VITALS: BP 138/72; PULSE 100; RESP 20; TEMP 102.6; O2SAT 94
[2017-11-09] MEDS: ACETAMINOPHEN 500 MG CPLT PO PRN (16:25)
[2017-11-09] MEDS: SODIUM CHLORIDE 0.9% IV SCH (16:27)
[2017-11-09] MEDS: DAPTOMYCIN IV SCH (16:27)
[2017-11-09 20:00] VITALS: BP 111/61; PULSE 92; RESP 20; TEMP 98.6; O2SAT 98
[2017-11-09] MEDS: INSULIN DETEMIR 100 UNITS/ML VIAL SQ SCH (21:27)
[2017-11-10] VITALS (7 sets, daily range): BP systolic 109–130; BP diastolic 57–79; PULSE 94–110; RESP 16–20; TEMP 97.8–99.9; O2SAT 93–99
[2017-11-10] MEDS: MORPHINE SULFATE 2 MG/ML SYRINGE IV PUSH PRN ×6 (01:30→23:16)
[2017-11-10] MEDS: oxyCODONE/ACETAMINOPHEN 10 MG/325 MG TAB PO PRN ×5 (02:59→20:54)
[2017-11-10 05:26] LABS: BASOPHIL % 0.4 % (0.0-2.0); EOSINOPHIL # 0.2 TH/MM3 (0-0.4); EOSINOPHIL % 2.6 % (0.0-4.0); HEMATOCRIT 24.8 % (39.0-51.0); HEMOGLOBIN 8.4 GM/DL (13.0-17.0); LYMPH % 17.9 % (9.0-44.0); LYMPHOCYTE # 1.6 TH/MM3 (1.0-4.8); MEAN CELL VOLUME 79.7 FL (80.0-100.0); MEAN CORPUSCULAR HEMOGLOBIN 26.9 PG (27.0-34.0); MEAN CORPUSCULAR HGB CONC 33.7 % (32.0-36.0); MEAN PLATELET VOLUME 7.9 FL (7.0-11.0); MONO % 10.7 % (0.0-8.0); MONOCYTE # 0.9 TH/MM3 (0-0.9); NEUT % 68.4 % (16.0-70.0); PLATELET COUNT 379 TH/MM3 (150-450); RED BLOOD COUNT 3.11 MIL/MM3 (4.50-5.90); RED CELL DISTRIBUTION WIDTH 15.9 % (11.6-17.2); WHITE BLOOD COUNT 8.7 TH/MM3 (4.0-11.0)
[2017-11-10] MEDS: INSULIN ASPART SUPPLEMENTAL SCALE SQ SCH ×4 (08:00→20:53)
[2017-11-10] MEDS: FUROSEMIDE 20 MG TAB PO SCH (08:02)
[2017-11-10] MEDS: PANTOPRAZOLE SOD 40 MG DELAYED RELEASE TAB PO SCH (08:02)
[2017-11-10] MEDS: GABAPENTIN 300 MG CAP PO SCH ×3 (08:02→18:22)
[2017-11-10] MEDS: LACTOBACILLUS ACIDOPHILUS TAB PO SCH ×2 (08:02→20:53)
[2017-11-10] MEDS: LEVOFLOXACIN 750 MG TAB PO SCH (08:02)
[2017-11-10] MEDS: COLLAGENASE OINT 30 GM TUBE TOPICAL SCH (08:04)
[2017-11-10] MEDS: HYDROCORTISONE 2.5% CREAM 30 GM TOPICAL SCH ×2 (08:05→20:57)
[2017-11-10] MEDS: SODIUM CHLORIDE 0.9% FLUSH 10 ML FLUSH IV FLUSH SCH ×2 (08:13→20:56)
[2017-11-10] MEDS: INSULIN ASPART 1,000 UNITS/10 ML VIAL SQ SCH ×3 (10:09→17:00)
--- NOTE | 2017-11-10 14:05 | HHI.PR ---
Subjective Remarks Patient is on the phone when I entered the room He waved to me as he did not have any complaint and continue his phone call Hemoglobin 8.6 [id number] yesterday Objective Vitals Vital Signs Date Time Temp Pulse Resp B/P (MAP) Pulse Ox O2 Delivery O2 Flow Rate FiO2 11/10/17 12:00 99.4 105 20 122/70 (87) 95 11/10/17 08:00 99.3 110 20 130/79 (96) 96 11/10/17 04:13 99.9 101 20 119/65 (83) 97 11/10/17 04:00 Room Air 11/10/17 00:00 99.5 94 16 109/63 (78) 99 11/09/17 21:20 Room Air 11/09/17 20:00 98.6 92 20 111/61 (78) 98 11/09/17 16:00 102.6 100 20 138/72 (94) 94 I/O 11/09/17 11/09/17 11/09/17 11/10/17 11/10/17 11/10/17 07:00 15:00 23:00 07:00 15:00 23:00 Intake Total 240 ml 720 ml 1080 ml Output Total 650 ml 1600 ml 500 ml 300 ml Balance -410 ml -880 ml 580 ml -300 ml Intake Oral 240 ml 720 ml 1080 ml Output Urine Total 650 ml 1600 ml 500 ml 300 ml Result Diagram: 11/10/17 0330 11/08/17 1650 Objective Remarks GENERAL: This is a well-nourished, well-developed patient, in no apparent distress. CARDIOVASCULAR: Regular rate and rhythm without murmurs, gallops, or rubs. RESPIRATORY: Fair air entry bilaterally. No wheezes, rales, or rhonchi. GASTROINTESTINAL: Abdomen soft, non-tender, nondistended. Positive bowel sounds MUSCULOSKELETAL: Extremities without clubbing, cyanosis, or edema. Pedal pulses appreciated, wound VAC in place right lower extremity NEUROLOGICAL: Awake and alert. Moves all extremity. Normal speech.no focal neurological deficit Procedures 10/08/17 Right foot and ankle incision drainage, 5th metatarsal resection, 5th digit amputation 10/25/17 Incision and drainage Right foot/ankle abscess with bone biopsy right 4th metatarsal base; wound vac placement 11/07/17 EGD showing gastritis, esophagitis and hiatal hernia, Colonoscopy showing diverticulosis, internal and external hemorrhoids A/P Problem List: (1) Osteomyelitis of foot ICD Code: M86.9 - Osteomyelitis, unspecified (2) Leukocytosis ICD Code: D72.829 - Elevated white blood cell count, unspecified (3) Dehydration with hyponatremia ICD Code: E87.1 - Hypo-osmolality and hyponatremia (4) Acute kidney injury ICD Code: N17.9 - Acute kidney failure, unspecified (5) Sepsis ICD Code: A41.9 - Sepsis, unspecified organism Status: Acute (6) Diabetic foot ulcer ICD Code: E11.621 - Type 2 diabetes mellitus with foot ulcer; L97.509 - Non- pressure chronic ulcer of other part of unspecified foot with unspecified severity Status: Acute (7) Acute renal failure superimposed on stage 3 chronic kidney disease ICD Code: N17.9 - Acute kidney failure, unspecified; N18.3 - Chronic kidney disease, stage 3 (moderate) (8) Bacteremia due to Gram-positive bacteria ICD Code: R78.81 - Bacteremia (9) Postoperative anemia ICD Code: D64.9 - Anemia, unspecified Assessment and Plan This is a 57-year-old male who presented with sepsis 11/09: Appreciate hematology consultation, agree no need for further iron supplement, continue current care for foot infection, further anemia workup when stable, CBC in a.m. 11/10: yesterday IV antibiotic Cubicin per ID recommendation, monitor CBC Sepsis-- Secondary to diabetic foot infection, bacteremia, right foot osteomyelitis: -Tmax 100.0 today. Repeat lab ordered, UA and CXR. -Blood cx 10/08 positive for Staph and Strep not A,B,D. Multiple repeat BCX negative. -Continue to monitor fevers. ? drug fever- clinically looks well Right foot osteomyelitis:S /P irrigation/debridement with wound vac placement 06/04. - S. aureus -Status post incision and drainage, fifth metatarsal resection, fifth digit amputation on 10/08/17. Podiatry is recommending IV antibiotics on discharge. Final antibiotic recommendations per infectious disease. Continue wound care. Continue on pain meds prn. -Rocephin discontinued on 11/02/2017 secondary to possible drug fever. Levaquin and Zyvox DC'd 10/28/2017. -Wound culture growing staph and strep not A/B/D. Repeat wound cx growing Staph only. -Patient on daptomycin and Levaquin. CK -ID ff Right knee effusion:- Resolving -Appreciate orthopedic surgery recommendations. So far cultures are negative. Bilateral pleural effusion:-improved clinically Elevated BNP- clinically appears comfortable r/o underlying CHF- ? from heart failure from anemia -pulmonary - stable-respiratory [place]- no SOB- up and ambulating -Appreciate pulmonology recommendations. Status post right-sided thoracentesis. Cytology is negative for malignant cells. -2D echo- EF 55# -S/P Lasix 20 mg IV 11/05 -Continue on Lasix 20 mg po daily -continue to monitor respiratory status, currently 95% on room air Peripheral vascular disease: -Appreciate vascular surgery recommendations. Per vascular surgery, no surgical intervention is planned. Postoperative anemia: H and H dropped r/o GIB- black stools- stools tested negative for guaiac -Received transfusion of 3 units PRBCs. Last unit given 11/05. Monitor H&H. -GI following, s/p EGD/colonoscopy showing gastritis, esophagitis, hiatal hernia , diverticulosis and internal and external hemorrhoids. Recommendations - Continue PPI, Anti-reflux regimen, probiotics, capsule endoscopy op, okay to resume anticoagulation, f/u with GI at discharge, f/u biopsy results -Change from IV Protonix to oral -R monitor CBC -Iron 13, TIBC 206, % sat 6.3, Ferritin 412. Unlikely iron deficiency mostly chronic disease. Consult Hematology, appreciate recommendations. Continue to hold Heparin until ok with Hematology. Diabetes mellitus type 2: - good readings -Continue Levemir. Monitor Accu-Cheks and cover with sliding scale insulin. Continue preprandial insulin as well. -change to low dose sliding scale Acute kidney injury superimposed on chronic kidney disease stage III- good urine output -Creatinine continues to improve. Repeat BMP ordered for today. Stage one pressure ulcer. -Patient needs turning every 2 hours. PT working with patient. DVT prophylaxis: Heparin on hold Discharge Planning Patient most likely require outpatient IV antibiotics and wound VAC changes. 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
--- NOTE | 2017-11-10 16:27 | HHI.IDPN ---
Subjective Subjective Remarks ID COVERAGE Mr. Braxton is a 57-year-old male with past medical history significant for diabetes type 2, prior diabetic foot ulcer treated in October 2016 thereafter was hospitalized from May 08, 2017 to May 29, 2017 due to foot ulcer. During that hospitalization patient underwent surgical debridement with wound VAC placement. Patient reports that he was seen by Dr. Pritchard during that admission. Patient reports that he was discharged on IV ceftriaxone using a PICC line. Patient had home health care visits him and continue to receive wound VAC changes at home. He also was subsequently seen at wound care clinic for ongoing wound care as well as [facility] for his primary care needs. Patient reports that his medications were recently adjusted and a new insulin was introduced. Patient reports that he was diagnosed with a possible staph or strep infection and has been on oral Bactrim approximately 2 weeks prior to admission. Due to worsening foot infection as well as possible reaction to the new insulin patient presented to the emergency department [facility]. Patient reports that he was having fevers, chills, loss of appetite and diarrhea for the past 2 days associated with frequent urination. Patient denies any dysuria. He reports dizziness and reported history of falls 3 days ago while on the toilet. Patient's reports that she was unaware of this history of fall. He denies any head injury. Patient reports hitting his right foot and shoulder but that he was able to get off the floor by himself. Patient had a sepsis workup initiated on admission. Wound cultures are positive for strep as well as blood cultures are now positive for gram-positive likely strep. Repeat blood cultures have been ordered. Podiatry is seeing the patient and there is a plan for surgical intervention and possible amputation of the involved digit. Infectious disease is consulted for evaluation and management of right fifth toe osteomyelitis with associated cellulitis, gram-positive bacteremia and sepsis. Notes reviewed Continues to spike fevers intermittently, Tmax 99.9 today, 102.6 yesterday WBC WNL breathing well on RA Not coughing any phlegm Right knee much improved Denies any diarrhea Echo shows no vegetation s/p panendoscopy with no evidence of GI bleed hgb stable s/p transfusion patient states right foot vac changed today, wound looks great ppr Clinically no change hemodynamically to suggest sepsis or new infection. Has been off of anticoagulation due to concern for GIB. Denies any swelling or pain in the calves. Antibiotics Cubicin Levaquin Current Medications Medications (Trade) Dose Ordered Sig/Anna Route Start Time Stop Time Status Last Admin (NS Flush) 2 ml UNSCH PRN IV FLUSH 10/07/17 16:45 10/21/17 23:13 (NS Flush) 2 ml BID IV FLUSH 10/07/17 21:00 11/05/17 08:38 (Narcan Inj) 0.4 mg UNSCH PRN IV PUSH 10/07/17 16:45 (D50w (Vial) Inj) 50 ml UNSCH PRN IV PUSH 10/08/17 10:30 (Glucagon Inj) 1 mg UNSCH PRN OTHER 10/08/17 10:30 (NovoLOG SUPPLEMENTAL SCALE) 1 ACHS SLIDING SCALE SQ 10/08/17 12:00 11/01/17 21:55 (Lactinex) 1 tab Q12HR PO 10/08/17 21:00 11/05/17 08:36 (NovoLOG INJ) 5 units TIDAC SQ 10/12/17 08:00 11/04/17 18:09 (Levemir Inj) 15 units HS SQ 10/12/17 21:00 11/04/17 21:56 (Restoril) 15 mg HS PRN PO 10/13/17 12:45 10/28/17 21:54 (Tylenol) 500 mg Q4H PRN PO 10/13/17 13:15 11/02/17 20:31 (Santyl Oint) 1 applic DAILY TOPICAL 10/22/17 12:00 11/04/17 08:53 (Neurontin) 600 mg TID PO 10/23/17 18:00 11/05/17 08:36 (Percocet 5-325 Mg) 1 tab Q4H PRN PO 10/31/17 12:15 (Percocet 10-325 Mg) 1 tab Q4H PRN PO 10/31/17 12:15 11/05/17 06:56 Daptomycin 640 mg/ Sodium Chloride 100 ml @ 200 mls/hr Q24H IV 10/31/17 16:00 11/04/17 15:03 (Levaquin) 750 mg DAILY PO 11/02/17 16:00 11/05/17 08:36 (Morphine Inj) 1 mg Q4H PRN IV PUSH 11/04/17 08:30 11/05/17 08:37 (Morphine Inj) 2 mg BID PRN IV PUSH 11/04/17 08:30 11/04/17 21:58 (Protonix Inj) 40 mg DAILY IV PUSH 11/05/17 09:45 Lines Line sites with no e.o infection Past Medical History Past Medical History DM II Right foot ulcer with possible osteomyelitis in the past. Has received IV antibiotics long-term using a PICC line in the past. Renal stones Past Surgical History Right foot debridement of wound removal of kidney stones Tonsillitis (Ami Prado) Allergies: Coded Allergies: No Known Allergies (Unverified Adverse Reaction, Unknown, 09/15/17) Uncoded Allergies: malagasy dressing (Allergy, Severe, Anaphylaxis, 10/07/17) Objective . Vital Signs Date Time Temp Pulse Resp B/P (MAP) Pulse Ox O2 Delivery O2 Flow Rate FiO2 11/10/17 12:00 99.4 105 20 122/70 (87) 95 11/10/17 08:00 99.3 110 20 130/79 (96) 96 11/10/17 04:13 99.9 101 20 119/65 (83) 97 11/10/17 04:00 Room Air 11/10/17 00:00 99.5 94 16 109/63 (78) 99 11/09/17 21:20 Room Air 11/09/17 20:00 98.6 92 20 111/61 (78) 98 11/10/17 11/10/17 11/11/17 15:00 23:00 07:00 Intake Total 720 ml Output Total 950 ml Balance -230 ml Intake Oral 720 ml Output Urine Total 950 ml . Laboratory Tests Test 11/08/17 16:50 11/09/17 06:36 11/09/17 06:56 11/10/17 03:30 White Blood Count 10.6 TH/MM3 8.8 TH/MM3 8.7 TH/MM3 Red Blood Count 3.14 MIL/MM3 3.01 MIL/MM3 3.11 MIL/MM3 Hemoglobin 8.8 GM/DL 8.2 GM/DL 8.4 GM/DL Hematocrit 25.4 % 24.0 % 24.8 % Mean Corpuscular Volume 80.8 FL 79.8 FL 79.7 FL Mean Corpuscular Hemoglobin 27.9 PG 27.3 PG 26.9 PG Mean Corpuscular Hemoglobin Concent 34.5 % 34.2 % 33.7 % Red Cell Distribution Width 15.9 % 16.0 % 15.9 % Platelet Count 439 TH/MM3 405 TH/MM3 379 TH/MM3 Mean Platelet Volume 7.5 FL 7.6 FL 7.9 FL Neutrophils (%) (Auto) 79.4 % 74.0 % 68.4 % Lymphocytes (%) (Auto) 12.4 % 15.1 % 17.9 % Monocytes (%) (Auto) 6.5 % 8.2 % 10.7 % Eosinophils (%) (Auto) 1.3 % 1.9 % 2.6 % Basophils (%) (Auto) 0.4 % 0.8 % 0.4 % Neutrophils # (Auto) 8.4 TH/MM3 6.5 TH/MM3 6.0 TH/MM3 Lymphocytes # (Auto) 1.3 TH/MM3 1.3 TH/MM3 1.6 TH/MM3 Monocytes # (Auto) 0.7 TH/MM3 0.7 TH/MM3 0.9 TH/MM3 Eosinophils # (Auto) 0.1 TH/MM3 0.2 TH/MM3 0.2 TH/MM3 Basophils # (Auto) 0.0 TH/MM3 0.1 TH/MM3 0.0 TH/MM3 CBC Comment DIFF FINAL DIFF FINAL DIFF FINAL Differential Comment Blood Smear Pathologist Review Reticulocyte Count 1.9 % Absolute Reticulocyte Count 57.0 MIL/L Haptoglobin 560 MG/DL Laboratory Tests Test 11/08/17 16:50 11/09/17 06:56 Blood Urea Nitrogen 10 MG/DL Creatinine 1.03 MG/DL Random Glucose 94 MG/DL Calcium Level 8.6 MG/DL Sodium Level 136 MEQ/L Potassium Level 3.8 MEQ/L Chloride Level 98 MEQ/L Carbon Dioxide Level 26.8 MEQ/L Anion Gap 11 MEQ/L Estimat Glomerular Filtration Rate 74 ML/MIN Total Creatine Kinase 72 U/L Lactate Dehydrogenase 526 U/L Imaging Chest X-Ray 10/30/17 0000 Signed Impressions: Service Date/Time: October 13:55 - CONCLUSION: 1. Consolidation of the left lower lobe. This would be concerning for a pneumonia. 2. Focal area of infiltrate seen in the left perihilar region. Raghavendra Lim MD Foot X-Ray 10/23/17 0000 Signed Impressions: Service Date/Time: October 17:15 - CONCLUSION: 1. 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 Lupillo Webster MD Chest X-Ray 10/22/17 0000 Signed Impressions: Service Date/Time: Sunday, October 22, 2017 09:07 - CONCLUSION: 1. Bilateral infiltrates and effusion. The exam has worsen when compared to previous dated 10/20/17. Raghavendra Lim MD Thoracentesis Ultrasound 10/20/17 0600 Signed Impressions: Service Date/Time: Friday, October 20, 2017 13:03 - CONCLUSION: Uncomplicated ultrasound guided thoracentesis. Smooth Saucedo MD Chest Ultrasound 10/17/17 0000 Signed Impressions: Service Date/Time: Tuesday, October 17, 2017 20:24 - CONCLUSION: A moderate to large right pleural effusion is confirmed sonographically and marked for thoracentesis. Hector Pierre MD Chest CT 10/16/17 0000 Signed Impressions: Service Date/Time: October 20:14 - CONCLUSION: Moderate-sized bilateral pleural effusions with adjacent compressive atelectasis and/or pneumonia. Scattered increased interstitial infiltrates within the perihilar regions and upper lobes bilaterally raising the possibility of pulmonary vascular congestion. Cardiomegaly and coronary artery calcifications are noted. Mild pretracheal and AP window mediastinal lymphadenopathy which is nonspecific. Degenerative changes and mild scoliosis of the thoracic spine. Hector Pierre MD Aspiration 10/16/17 0000 Signed Impressions: Service Date/Time: October 15:48 - CONCLUSION: Uncomplicated aspiration as above. Chetan Escobedo MD Abdomen/Pelvis CT 10/16/17 0000 Signed Impressions: Service Date/Time: October 20:14 - CONCLUSION: 1. Moderate-sized bilateral pleural effusions with adjacent consolidations consistent with atelectasis and/or pneumonia. 2. Tiny calcified nonobstructing bilateral renal calculi. 3. Mild hepatosplenomegaly. 4. Uncomplicated colonic diverticulosis. 5. Minimal free fluid within the pelvis. 6. Streakiness and fluid within the bilateral retroperitoneum inferior to the kidneys and extending into the presacral region. 7. Degenerative changes and scoliosis of the thoracolumbar spine. Hector Pierre MD Knee X-Ray 10/15/17 0000 Signed Impressions: Service Date/Time: Sunday, October 15, 2017 15:26 - CONCLUSION: Large joint effusion otherwise negative. Tu Lim MD FACR Carotid Artery Ultrasound 10/13/17 0000 Signed Impressions: Service Date/Time: Friday, October 13, 2017 16:12 - CONCLUSION: No evidence of flow-limiting carotid stenosis. Wm Riley MD Aorta w/Runoff CTA 10/13/17 0000 Signed Impressions: Service Date/Time: Friday, October 13, 2017 22:41 - CONCLUSION: 1. No aortic occlusive disease. 2. No significant iliac inflow stenosis. 3. No significant outflow stenosis. 4. Diffuse bilateral runoff disease with heavily calcified tibial arteries and significant venous contamination precluding patency evaluation beyond the very proximal calf. 5. Small to moderate bilateral pleural effusions with associated airspace disease at the lung bases, presumably atelectasis. 6. Trace free fluid in the deep pelvis. 7. Ancillary findings include hepatic steatosis, nonobstructing punctate calyceal calculus in the inferior pole of the left kidney and small suprapatellar right joint effusion. Lupillo Webster MD Foot MRI 10/12/17 0000 Signed Impressions: Service Date/Time: Thursday, October 12, 2017 08:31 - CONCLUSION: 1. No areas of suspected osteomyelitis. 2. Superficial soft tissue swelling over the third and fourth metatarsals. There is also some edema within the plantar musculature. Wm Dupree MD Ankle MRI 10/11/17 0000 Signed Impressions: Service Date/Time: Wednesday, October 11, 2017 09:41 - CONCLUSION: 1. No definite areas of osteomyelitis. There is some edema within the lateral cuboid adjacent to the suspected surgical defect which is likely reactive. T1 signal is maintained. 2. Multiple areas of focal edema within the midfoot mainly related to the subarticular regions likely related to underlying arthritic change. 3. The patient appears to be status post resection of the fifth metatarsal with post surgical change at the lateral hind and midfoot and a small focus of air seen adjacent to the calcaneus. Wm Dupree MD Physical Exam GENERAL: Well developed male patient, INAD. Awake and alert. Appears comfortable. SKIN: Cool and dry. No generalized rash HEAD: Atraumatic. Normocephalic. EYES: Pupils equal round and reactive. EOMI. No scleral icterus. No injection or drainage. ENT: Moist mucosa, no lesions, no oral thrush NECK: Trachea midline. CARDIOVASCULAR: Regular rate and rhythm without murmurs. RESPIRATORY: Good air entry bilaterally, clear to auscultation. GASTROINTESTINAL: Abdomen soft, non-tender, nondistended. MUSCULOSKELETAL: Right knee swollen but much improved. Nontender to palpation. Improved ROM. Right foot with wound vac in place, dressing C/D/I, good seal. Left foot plantar aspect with dry eschar. Bilateral lower extremities without cyanosis and edema. Calves supple and NTTP. NEUROLOGICAL: Awake and alert. Able to move all extremities spontaneously. Motor grossly intact. Nonfocal exam. PSYCHIATRIC: Appropriate mood and affect. Calm and pleasant. PIV line sites with no evidence of infection. (Ami Prado) Assessment & Plan Remarks Sepsis present on admission Strep bacteremia secondary to right foot osteomyelitis and cellulitis Staph MSSA bacteremia high grade. Strep not AB,D and Staph infection Right foot fifth MPJ osteomyelitis Right foot cellulitis Pneumonia with bilateral pleural effusions ? HCAP vs septic emboli. Right knee septic arthritis. Diabetes type 2 uncontrolled Acute renal failure: Sepsis, prerenal: improving Fevers, persistently spiking high fevers intermittently - non-localizing - ?drug fever - repeat CXR 11/08 with bibasilar infiltrates - repeat UA unremarkable - ?DVT off of anticoagulation due to concern for GIB, unlikely Anemia, hgb stable status post transfusion Recommendations: Continue Cubicin and Levaquin - continue to follow CPK, last CK 72 11/08 - obtain LFTs Obtain bilateral lower extremity doppler studies to r/o DVT given patient off of anticoagulation due to concern for GI bleed Monitor temps Monitor progress D/W patient (Ami Prado) Remarks The exam, history, and the medical decision-making described in the above note were completed with the assistance of the mid-level provider. I reviewed the historical facts with patient again, along with pertinent ROS and performed an independent physical examination. I agree with the findings presented. I attest that I had a [id number] encounter with the patient on the same day, and personally performed and documented my assessment and findings in the medical record. Clinically fever 102 x 1. Clinically improving. ? Drug fever vs Non infectious cause for fever. Wound care notes: appears improving wound, Will dw them in am. Doppler LE bilaterally. Patient was off Heparin due to concern for GIB. Monitor LFTs and CK levels. Will follow along. (Chuyita Quinteros MD) Ami Prado Nov 10, 2017 16:27 Chuyita Quinteros MD Nov 10, 2017 21:21
[2017-11-10] MEDS: SODIUM CHLORIDE 0.9% IV SCH (17:08)
[2017-11-10] MEDS: DAPTOMYCIN IV SCH (17:08)
[2017-11-10] MEDS: INSULIN DETEMIR 100 UNITS/ML VIAL SQ SCH (20:53)
--- NOTE | 2017-11-10 21:15 | HHI.PR ---
Subjective Remarks 57 YOWm with DM,Diabetic foot ulcer,Pl eff, Lung infilt US chest Mod to large Rt Pl eff Breathing better uses 02 off and on Had colonoscopy at [facility] Objective Vital Signs Vital Signs Date Time Temp Pulse Resp B/P (MAP) Pulse Ox O2 Delivery O2 Flow Rate FiO2 11/10/17 16:00 98.7 105 20 120/72 (88) 97 11/10/17 12:00 99.4 105 20 122/70 (87) 95 11/10/17 08:00 Room Air 11/10/17 08:00 99.3 110 20 130/79 (96) 96 11/10/17 04:13 99.9 101 20 119/65 (83) 97 11/10/17 04:00 Room Air 11/10/17 00:00 99.5 94 16 109/63 (78) 99 11/09/17 21:20 Room Air I/O 11/09/17 11/09/17 11/09/17 11/10/17 11/10/17 11/10/17 07:00 15:00 23:00 07:00 15:00 23:00 Intake Total 240 ml 720 ml 1080 ml 720 ml 100 ml Output Total 650 ml 1600 ml 500 ml 950 ml Balance -410 ml -880 ml 580 ml -230 ml 100 ml Intake Oral 240 ml 720 ml 1080 ml 720 ml IV Total 100 ml Output Urine Total 650 ml 1600 ml 500 ml 950 ml # Bowel Movements 1 Result Diagram: 11/10/17 0330 11/08/17 1650 Objective Remarks GENERAL: WBWN WM,NAD SKIN: Warm and dry. HEAD: Normocephalic. EYES: No scleral icterus. No injection or drainage. NECK: Supple, trachea midline. No JVD or lymphadenopathy. CARDIOVASCULAR: Regular rate and rhythm without murmurs, gallops, or rubs. RESPIRATORY: Breath sounds equal bilaterally. No accessory muscle use. Decreased BS at Bases GASTROINTESTINAL: Abdomen soft, non-tender, nondistended. MUSCULOSKELETAL: No cyanosis, or edema. Foot ulcer, VAC device BACK: Nontender without obvious deformity. No CVA tenderness. A/P Assessment and Plan Bilat Pl effusion Lung infilt/ septic emboli DM Foot Ulcer PLAN: Pl fluid cytology, cultures neg Cont Abx Cubicin and Levaquin per ID Supplement 02 to keep sat >90% Stable from pulm standpoint Curtis Liao MD Nov 10, 2017 21:15
[2017-11-10 22:45] LABS: ALBUMIN 1.9 GM/DL (3.4-5.0); DIRECT BILIRUBIN ADULT 0.1 MG/DL (0.0-0.2)
[2017-11-10 22:46] LABS: INDIRECT BILIRUBIN 0.1 MG/DL (0.0-0.8); TOTAL BILIRUBIN ADULT 0.2 MG/DL (0.2-1.0); TOTAL PROTEIN 7.3 GM/DL (6.4-8.2)
[2017-11-10] MEDS: SODIUM CHLORIDE 0.9% FLUSH 10 ML FLUSH IV FLUSH PRN (23:16)
[2017-11-11] MEDS: oxyCODONE/ACETAMINOPHEN 10 MG/325 MG TAB PO PRN ×5 (00:48→20:41)
[2017-11-11] MEDS: MORPHINE SULFATE 2 MG/ML SYRINGE IV PUSH PRN ×5 (02:42→23:21)
[2017-11-11 04:00] VITALS: BP 93/51; PULSE 93; RESP 16; TEMP 99; O2SAT 96
[2017-11-11 06:03] VITALS: BP 118/65; PULSE 104
[2017-11-11] MEDS: SODIUM CHLORIDE 0.9% FLUSH 10 ML FLUSH IV FLUSH SCH ×2 (07:55→20:42)
[2017-11-11 08:00] VITALS: BP 120/67; PULSE 98; RESP 20; TEMP 99.5; O2SAT 98
[2017-11-11] MEDS: INSULIN ASPART SUPPLEMENTAL SCALE SQ SCH ×4 (08:00→20:42)
[2017-11-11] MEDS: GABAPENTIN 300 MG CAP PO SCH ×3 (08:19→17:06)
[2017-11-11] MEDS: FUROSEMIDE 20 MG TAB PO SCH (08:19)
[2017-11-11] MEDS: LEVOFLOXACIN 750 MG TAB PO SCH (08:19)
[2017-11-11] MEDS: PANTOPRAZOLE SOD 40 MG DELAYED RELEASE TAB PO SCH (08:20)
[2017-11-11] MEDS: LACTOBACILLUS ACIDOPHILUS TAB PO SCH ×2 (08:20→20:42)
[2017-11-11] MEDS: HYDROCORTISONE 2.5% CREAM 30 GM TOPICAL SCH ×2 (08:20→20:42)
[2017-11-11] MEDS: COLLAGENASE OINT 30 GM TUBE TOPICAL SCH (08:20)
[2017-11-11] MEDS: INSULIN ASPART 1,000 UNITS/10 ML VIAL SQ SCH ×3 (08:20→16:32)
--- NOTE | 2017-11-11 10:02 | RADRPT ---
EXAM DATE/TIME: 11/11/2017 09:17 [place] COMPARISON: No previous studies available for comparison. INDICATIONS : Bilateral leg swelling. MEDICAL HISTORY : Renal calculi. Gait problems. Diabetes. Hallucinations. SURGICAL HISTORY : Tonsillectomy. Kidney stone removal. Right foot fifth metatarsal I&D. ENCOUNTER: Subsequent ACUITY: 1 day PAIN SCORE: 3/10 LOCATION: Bilateral leg. TECHNIQUE: Venous ultrasound of the left and right leg was performed from the inguinal ligament to the proximal calf. Real-time, color Doppler and spectral tracing, compression and augmentation techniques were us ed. FINDINGS: RIGHT LEG: There is normal compressibility of the deep venous system from the inguinal region to the proximal ca lf. No echogenic clot is seen in the lumen of the common femoral, femoral, popliteal, and posterior tibial veins. There is a normal response of the venous system to proximal and distal augmentation an d respiration. LEFT LEG: There is normal compressibility of the deep venous system from the inguinal region to the proximal ca lf. No echogenic clot is seen in the lumen of the common femoral, femoral, popliteal, and posterior tibial veins. There is a normal response of the venous system to proximal and distal augmentation an d respiration. CONCLUSION: Normal examination. Wm Riley MD on November 11, 2017 at 9:58 Board Certified Radiologist. This report was verified electronically.
[2017-11-11 12:00] VITALS: BP 118/62; PULSE 101; RESP 20; TEMP 100.8; O2SAT 95
[2017-11-11] MEDS: ACETAMINOPHEN 500 MG CPLT PO PRN (12:43)
[2017-11-11 16:00] VITALS: BP 121/66; PULSE 106; RESP 20; TEMP 100.3; O2SAT 92
[2017-11-11] MEDS: DAPTOMYCIN IV SCH (16:55)
[2017-11-11] MEDS: SODIUM CHLORIDE 0.9% IV SCH (16:55)
--- NOTE | 2017-11-11 18:18 | HHI.PR ---
Subjective Remarks Patient with in appropriate manner "How can I help you " I explained to him that I am here to examine him and evaluate him he refused to be examined Objective Vitals Vital Signs Date Time Temp Pulse Resp B/P (MAP) Pulse Ox O2 Delivery O2 Flow Rate FiO2 11/11/17 16:00 100.3 106 20 121/66 (84) 92 11/11/17 12:00 100.8 101 20 118/62 (80) 95 11/11/17 08:00 99.5 98 20 120/67 (84) 98 11/11/17 06:03 104 118/65 (82) 11/11/17 04:00 99.0 93 16 93/51 (65) 96 11/11/17 00:00 Nasal Cannula 2.00 11/10/17 23:21 99.6 105 20 116/62 (80) 93 11/10/17 20:30 Nasal Cannula 2.00 11/10/17 20:00 97.8 99 16 112/57 (75) 95 I/O 11/10/17 11/10/17 11/10/17 11/11/17 11/11/17 11/11/17 07:00 15:00 23:00 07:00 15:00 23:00 Intake Total 1080 ml 720 ml 100 ml 420 ml 360 ml Output Total 500 ml 950 ml 1350 ml 400 ml 900 ml Balance 580 ml -230 ml 100 ml -930 ml -40 ml -900 ml Intake Oral 1080 ml 720 ml 420 ml 360 ml IV Total 100 ml Output Urine Total 500 ml 950 ml 1350 ml 400 ml 900 ml # Bowel Movements 1 0 0 2 Result Diagram: 11/10/17 0330 11/08/17 2310 Objective Remarks ----GENERAL: This is a well-nourished, well-developed patient, in no apparent distress. NEUROLOGICAL: Awake and alert. Moves all extremity. Normal speech.no focal neurological deficit Procedures 10/08/17 Right foot and ankle incision drainage, 5th metatarsal resection, 5th digit amputation 10/25/17 Incision and drainage Right foot/ankle abscess with bone biopsy right 4th metatarsal base; wound vac placement 11/07/17 EGD showing gastritis, esophagitis and hiatal hernia, Colonoscopy showing diverticulosis, internal and external hemorrhoids A/P Problem List: (1) Osteomyelitis of foot ICD Code: M86.9 - Osteomyelitis, unspecified (2) Leukocytosis ICD Code: D72.829 - Elevated white blood cell count, unspecified (3) Dehydration with hyponatremia ICD Code: E87.1 - Hypo-osmolality and hyponatremia (4) Acute kidney injury ICD Code: N17.9 - Acute kidney failure, unspecified (5) Sepsis ICD Code: A41.9 - Sepsis, unspecified organism Status: Acute (6) Diabetic foot ulcer ICD Code: E11.621 - Type 2 diabetes mellitus with foot ulcer; L97.509 - Non- pressure chronic ulcer of other part of unspecified foot with unspecified severity Status: Acute (7) Acute renal failure superimposed on stage 3 chronic kidney disease ICD Code: N17.9 - Acute kidney failure, unspecified; N18.3 - Chronic kidney disease, stage 3 (moderate) (8) Bacteremia due to Gram-positive bacteria ICD Code: R78.81 - Bacteremia (9) Postoperative anemia ICD Code: D64.9 - Anemia, unspecified Assessment and Plan This is a 57-year-old male who presented with sepsis 11/09: Appreciate hematology consultation, agree no need for further iron supplement, continue current care for foot infection, further anemia workup when stable, CBC in a.m. 11/10: [id number] yesterday IV antibiotic Cubicin per ID recommendation, monitor CBC 11/11: No fever over 24 hours, continue IV antibiotic, patient is adopting inappropriate behavior towards medical staff including me he refused to be examined A/P: Sepsis-- Secondary to diabetic foot infection, bacteremia, right foot osteomyelitis: -Tmax 100.0 today. Repeat lab ordered, UA and CXR. -Blood cx 10/08 positive for Staph and Strep not A,B,D. Multiple repeat BCX negative. -Continue to monitor fevers. ? drug fever- clinically looks well Right foot osteomyelitis:S /P irrigation/debridement with wound vac placement 06/04. - S. aureus -Status post incision and drainage, fifth metatarsal resection, fifth digit amputation on 10/08/17. Podiatry is recommending IV antibiotics on discharge. Final antibiotic recommendations per infectious disease. Continue wound care. Continue on pain meds prn. -Rocephin discontinued on 11/02/2017 secondary to possible drug fever. Levaquin and Zyvox DC'd 10/28/2017. -Wound culture growing staph and strep not A/B/D. Repeat wound cx growing Staph only. -Patient on daptomycin and Levaquin. CK -ID ff Right knee effusion:- Resolving -Appreciate orthopedic surgery recommendations. So far cultures are negative. Bilateral pleural effusion:-improved clinically Elevated BNP- clinically appears comfortable r/o underlying CHF- ? from heart failure from anemia -pulmonary - stable-respiratory [place]- no SOB- up and ambulating -Appreciate pulmonology recommendations. Status post right-sided thoracentesis. Cytology is negative for malignant cells. -2D echo- EF 55# -S/P Lasix 20 mg IV 11/05 -Continue on Lasix 20 mg po daily -continue to monitor respiratory status, currently 95% on room air Peripheral vascular disease: -Appreciate vascular surgery recommendations. Per vascular surgery, no surgical intervention is planned. Postoperative anemia: H and H dropped r/o GIB- black stools- stools tested negative for guaiac -Received transfusion of 3 units PRBCs. Last unit given 11/05. Monitor H&H. -GI following, s/p EGD/colonoscopy showing gastritis, esophagitis, hiatal hernia , diverticulosis and internal and external hemorrhoids. Recommendations - Continue PPI, Anti-reflux regimen, probiotics, capsule endoscopy op, okay to resume anticoagulation, f/u with GI at discharge, f/u biopsy results -Change from IV Protonix to oral -R monitor CBC -Iron 13, TIBC 206, % sat 6.3, Ferritin 412. Unlikely iron deficiency mostly chronic disease. Consult Hematology, appreciate recommendations. Continue to hold Heparin until ok with Hematology. Diabetes mellitus type 2: - good readings -Continue Levemir. Monitor Accu-Cheks and cover with sliding scale insulin. Continue preprandial insulin as well. -change to low dose sliding scale Acute kidney injury superimposed on chronic kidney disease stage III- good urine output -Creatinine continues to improve. Repeat BMP ordered for today. Stage one pressure ulcer. -Patient needs turning every 2 hours. PT working with patient. DVT prophylaxis: Heparin on hold Discharge Planning Patient most likely require outpatient IV antibiotics and wound VAC changes. d/w patient- may need PICC for ocean transportation intermediary IV antibiotic administration- refused PICC states homeless - lives in the [place] Problem Qualifiers (1) Sepsis: Qualified Codes: A41.9 - Sepsis, unspecified organism (2) Diabetic foot ulcer: Qualified Codes: E10.621 - Type 1 diabetes mellitus with foot ulcer; L97.419 - Non-pressure chronic ulcer of right heel and midfoot with unspecified severity Paras Roe MD Nov 11, 2017 18:18
[2017-11-11 20:00] VITALS: BP 130/60; PULSE 97; RESP 17; TEMP 98.5; O2SAT 98
--- NOTE | 2017-11-11 20:01 | HHI.PR ---
Subjective Remarks 57 YOWm with DM,Diabetic foot ulcer,Pl eff, Lung infilt US chest Mod to large Rt Pl eff Breathing better uses 02 off and on Had colonoscopy T [id number] comfortable. Objective Vital Signs Vital Signs Date Time Temp Pulse Resp B/P (MAP) Pulse Ox O2 Delivery O2 Flow Rate FiO2 11/11/17 16:00 100.3 106 20 121/66 (84) 92 11/11/17 12:00 100.8 101 20 118/62 (80) 95 11/11/17 08:00 99.5 98 20 120/67 (84) 98 11/11/17 06:03 104 118/65 (82) 11/11/17 04:00 99.0 93 16 93/51 (65) 96 11/11/17 00:00 Nasal Cannula 2.00 11/10/17 23:21 99.6 105 20 116/62 (80) 93 11/10/17 20:30 Nasal Cannula 2.00 I/O 11/10/17 11/10/17 11/10/17 11/11/17 11/11/17 11/11/17 06:59 14:59 22:59 06:59 14:59 22:59 Intake Total 1080 ml 720 ml 100 ml 420 ml 360 ml 100 ml Output Total 500 ml 950 ml 1350 ml 400 ml 1500 ml Balance 580 ml -230 ml 100 ml -930 ml -40 ml -1400 ml Intake Oral 1080 ml 720 ml 420 ml 360 ml IV Total 100 ml 100 ml Output Urine Total 500 ml 950 ml 1350 ml 400 ml 1500 ml # Bowel Movements 1 0 0 2 Result Diagram: 11/10/17 0330 11/08/17 1650 Objective Remarks GENERAL: WBWN WM,NAD SKIN: Warm and dry. HEAD: Normocephalic. EYES: No scleral icterus. No injection or drainage. NECK: Supple, trachea midline. No JVD or lymphadenopathy. CARDIOVASCULAR: Regular rate and rhythm without murmurs, gallops, or rubs. RESPIRATORY: Breath sounds equal bilaterally. No accessory muscle use. Decreased BS at Bases GASTROINTESTINAL: Abdomen soft, non-tender, nondistended. MUSCULOSKELETAL: No cyanosis, or edema. Foot ulcer, VAC device BACK: Nontender without obvious deformity. No CVA tenderness. A/P Assessment and Plan Bilat Pl effusion Lung infilt/ septic emboli DM Foot Ulcer PLAN: Cont Abx Cubicin and Levaquin per ID Supplement 02 to keep sat >90% Stable from pulm standpoint Curtis Liao MD Nov 11, 2017 20:01
[2017-11-11] MEDS: INSULIN DETEMIR 100 UNITS/ML VIAL SQ SCH (20:55)
[2017-11-12] VITALS: BP 123/62; PULSE 93; RESP 19; TEMP 98.3; O2SAT 94
[2017-11-12] MEDS: oxyCODONE/ACETAMINOPHEN 10 MG/325 MG TAB PO PRN ×3 (00:40→10:30)
[2017-11-12] MEDS: MORPHINE SULFATE 2 MG/ML SYRINGE IV PUSH PRN ×5 (03:28→20:35)
[2017-11-12 03:56] VITALS: BP 122/73; PULSE 91; RESP 18; TEMP 99.4; O2SAT 96
[2017-11-12] MEDS: INSULIN ASPART SUPPLEMENTAL SCALE SQ SCH ×4 (08:00→21:00)
[2017-11-12 08:05] VITALS: BP 127/72; PULSE 94; RESP 17; TEMP 98.7; O2SAT 98
[2017-11-12] MEDS: HYDROCORTISONE 2.5% CREAM 30 GM TOPICAL SCH ×2 (09:00→20:35)
[2017-11-12] MEDS: COLLAGENASE OINT 30 GM TUBE TOPICAL SCH (09:00)
[2017-11-12] MEDS: SODIUM CHLORIDE 0.9% FLUSH 10 ML FLUSH IV FLUSH SCH ×2 (09:00→20:35)
[2017-11-12] MEDS: INSULIN ASPART 1,000 UNITS/10 ML VIAL SQ SCH ×3 (09:21→18:24)
[2017-11-12] MEDS: FUROSEMIDE 20 MG TAB PO SCH (09:23)
[2017-11-12] MEDS: LEVOFLOXACIN 750 MG TAB PO SCH (09:23)
[2017-11-12] MEDS: PANTOPRAZOLE SOD 40 MG DELAYED RELEASE TAB PO SCH (09:23)
[2017-11-12] MEDS: LACTOBACILLUS ACIDOPHILUS TAB PO SCH ×2 (09:23→20:34)
[2017-11-12] MEDS: GABAPENTIN 300 MG CAP PO SCH ×3 (09:24→16:44)
[2017-11-12 12:17] VITALS: BP 122/76; PULSE 95; RESP 17; TEMP 98.8; O2SAT 96
--- NOTE | 2017-11-12 14:53 | HHI.PR ---
Subjective Remarks Surprisingly patient is in a better mood today and more appropriate manner He denied having any pain short of breath or fever today is laying in bed Objective Vitals Vital Signs Date Time Temp Pulse Resp B/P (MAP) Pulse Ox O2 Delivery O2 Flow Rate FiO2 11/12/17 12:17 98.8 95 17 122/76 (91) 96 11/12/17 08:05 98.7 94 17 127/72 (90) 98 11/12/17 03:56 99.4 91 18 122/73 (89) 96 11/12/17 00:00 98.3 93 19 123/62 (82) 94 11/11/17 20:30 Nasal Cannula 2.00 11/11/17 20:00 98.5 97 17 130/60 (83) 98 11/11/17 16:00 100.3 106 20 121/66 (84) 92 I/O 11/11/17 11/11/17 11/11/17 11/12/17 11/12/17 11/12/17 07:00 15:00 23:00 07:00 15:00 23:00 Intake Total 420 ml 360 ml 100 ml 480 ml Output Total 1350 ml 400 ml 1500 ml 1600 ml Balance -930 ml -40 ml -1400 ml -1120 ml Intake Oral 420 ml 360 ml 480 ml IV Total 100 ml Output Urine Total 1350 ml 400 ml 1500 ml 1600 ml # Bowel Movements 0 0 2 0 Result Diagram: 11/10/17 0330 11/08/17 1650 Objective Remarks GENERAL: This is a well-nourished, well-developed patient, in no apparent distress. SKIN: No rashes, warm and dry HEAD: Atraumatic. Normocephalic. EYES: Pupils equal round and reactive. Extraocular motions intact. No scleral icterus. ENT: Nose without bleeding, or drainage, Airway patent. NECK: Trachea midline. Supple CARDIOVASCULAR: Regular rate and rhythm without murmurs, gallops, or rubs. RESPIRATORY: Fair air entry bilaterally. No wheezes, rales, or rhonchi. GASTROINTESTINAL: Abdomen soft, non-tender, nondistended. Positive bowel sounds MUSCULOSKELETAL: Extremities without clubbing, cyanosis, or edema. Pedal pulses appreciated NEUROLOGICAL: Awake and alert. Moves all extremity. Normal speech.no focal neurological deficit Procedures 10/08/17 Right foot and ankle incision drainage, 5th metatarsal resection, 5th digit amputation 10/25/17 Incision and drainage Right foot/ankle abscess with bone biopsy right 4th metatarsal base; wound vac placement 11/07/17 EGD showing gastritis, esophagitis and hiatal hernia, Colonoscopy showing diverticulosis, internal and external hemorrhoids A/P Problem List: (1) Osteomyelitis of foot ICD Code: M86.9 - Osteomyelitis, unspecified (2) Leukocytosis ICD Code: D72.829 - Elevated white blood cell count, unspecified (3) Dehydration with hyponatremia ICD Code: E87.1 - Hypo-osmolality and hyponatremia (4) Acute kidney injury ICD Code: N17.9 - Acute kidney failure, unspecified (5) Sepsis ICD Code: A41.9 - Sepsis, unspecified organism Status: Acute (6) Diabetic foot ulcer ICD Code: E11.621 - Type 2 diabetes mellitus with foot ulcer; L97.509 - Non- pressure chronic ulcer of other part of unspecified foot with unspecified severity Status: Acute (7) Acute renal failure superimposed on stage 3 chronic kidney disease ICD Code: N17.9 - Acute kidney failure, unspecified; N18.3 - Chronic kidney disease, stage 3 (moderate) (8) Bacteremia due to Gram-positive bacteria ICD Code: R78.81 - Bacteremia (9) Postoperative anemia ICD Code: D64.9 - Anemia, unspecified Assessment and Plan This is a 57-year-old male who presented with sepsis A/P: Sepsis-- Secondary to diabetic foot infection, bacteremia, right foot osteomyelitis: -Tmax 100.0 today. Repeat lab ordered, UA and CXR. -Blood cx 10/08 positive for Staph and Strep not A,B,D. Multiple repeat BCX negative. -Continue to monitor fevers. ? drug fever- clinically looks well Right foot osteomyelitis:S /P irrigation/debridement with wound vac placement 06/04. - S. aureus -Status post incision and drainage, fifth metatarsal resection, fifth digit amputation on 10/08/17. Podiatry is recommending IV antibiotics on discharge. Final antibiotic recommendations per infectious disease. Continue wound care. Continue on pain meds prn. -Rocephin discontinued on 11/02/2017 secondary to possible drug fever. Levaquin and Zyvox DC'd 10/28/2017. -Wound culture growing staph and strep not A/B/D. Repeat wound cx growing Staph only. -Patient on daptomycin and Levaquin. CK -ID ff Right knee effusion:- Resolving -Appreciate orthopedic surgery recommendations. So far cultures are negative. Bilateral pleural effusion:-improved clinically Elevated BNP- clinically appears comfortable r/o underlying CHF- ? from heart failure from anemia -pulmonary - stable-respiratory [place]- no SOB- up and ambulating -Appreciate pulmonology recommendations. Status post right-sided thoracentesis. Cytology is negative for malignant cells. -2D echo- EF 55# -S/P Lasix 20 mg IV 11/05 -Continue on Lasix 20 mg po daily -continue to monitor respiratory status, currently 95% on room air Chronic anemia Appreciate hematology consultation, agree no need for further iron supplement, continue current care for foot infection, further anemia workup when stable, CBC in a.m. Peripheral vascular disease: -Appreciate vascular surgery recommendations. Per vascular surgery, no surgical intervention is planned. Postoperative anemia: H and H dropped r/o GIB- black stools- stools tested negative for guaiac -Received transfusion of 3 units PRBCs. Last unit given 11/05. Monitor H&H. -GI following, s/p EGD/colonoscopy showing gastritis, esophagitis, hiatal hernia , diverticulosis and internal and external hemorrhoids. Recommendations - Continue PPI, Anti-reflux regimen, probiotics, capsule endoscopy op, okay to resume anticoagulation, f/u with GI at discharge, f/u biopsy results -Change from IV Protonix to oral -R monitor CBC -Iron 13, TIBC 206, % sat 6.3, Ferritin 412. Unlikely iron deficiency mostly chronic disease. Consult Hematology, appreciate recommendations. Continue to hold Heparin until ok with Hematology. Diabetes mellitus type 2: - good readings -Continue Levemir. Monitor Accu-Cheks and cover with sliding scale insulin. Continue preprandial insulin as well. -change to low dose sliding scale Acute kidney injury superimposed on chronic kidney disease stage III- good urine output -Creatinine continues to improve. Repeat BMP ordered for today. Stage one pressure ulcer. -Patient needs turning every 2 hours. PT working with patient. DVT prophylaxis: Heparin on hold Discharge Planning Patient most likely require outpatient IV antibiotics and wound VAC changes. d/w patient- may need PICC for retirement IV antibiotic administration- refused PICC states homeless - lives in the [place] Problem Qualifiers (1) Sepsis: Qualified Codes: A41.9 - Sepsis, unspecified organism (2) Diabetic foot ulcer: Qualified Codes: E10.621 - Type 1 diabetes mellitus with foot ulcer; L97.419 - Non-pressure chronic ulcer of right heel and midfoot with unspecified severity Paras Roe MD Nov 12, 2017 14:53
[2017-11-12 16:05] VITALS: BP 140/87; PULSE 97; RESP 18; TEMP 98.4; O2SAT 98
[2017-11-12] MEDS: oxyCODONE/ACETAMINOPHEN 7.5 MG/325 MG TAB PO PRN ×2 (16:43→22:39)
[2017-11-12] MEDS: DAPTOMYCIN IV SCH (16:44)
[2017-11-12] MEDS: SODIUM CHLORIDE 0.9% IV SCH (16:44)
--- NOTE | 2017-11-12 18:19 | PD.ONC.PN ---
Subjective Subjective Remarks Resting in bed. at bedside. Objective Data Date Time Temp Pulse Resp B/P (MAP) Pulse Ox O2 Delivery O2 Flow Rate FiO2 11/12/17 16:05 98.4 97 18 140/87 (104) 98 11/12/17 12:17 98.8 95 17 122/76 (91) 96 11/12/17 08:05 98.7 94 17 127/72 (90) 98 11/12/17 07:00 Room Air 11/12/17 03:56 99.4 91 18 122/73 (89) 96 11/12/17 00:00 98.3 93 19 123/62 (82) 94 11/11/17 20:30 Nasal Cannula 2.00 11/11/17 20:00 98.5 97 17 130/60 (83) 98 11/12/17 11/12/17 11/12/17 07:00 15:00 23:00 Intake Total 480 ml Output Total 1600 ml Balance -1120 ml Result Diagram: 11/10/17 0330 11/08/17 1650 Administered Medications Medications (Trade) Dose Ordered Sig/Anna Route PRN Reason Start Time Stop Time Status Last Admin Dose Admin Sodium Chloride (NS Flush) 2 ml UNSCH PRN IV FLUSH FLUSH AFTER USING IV ACCESS 10/07/17 16:45 11/10/17 23:16 Sodium Chloride (NS Flush) 2 ml BID IV FLUSH 10/07/17 21:00 11/12/17 09:00 Lactobacillus Acidophilus (Lactinex) 1 tab Q12HR PO 10/08/17 21:00 11/12/17 09:23 Insulin Aspart (NovoLOG INJ) 5 units TIDAC SQ 10/12/17 08:00 11/12/17 13:14 Insulin Detemir (Levemir Inj) 15 units HS SQ 10/12/17 21:00 11/11/17 20:55 Temazepam (Restoril) 15 mg HS PRN PO INSOMNIA 10/13/17 12:45 10/28/17 21:54 Acetaminophen (Tylenol) 500 mg Q4H PRN PO Headache, fever 10/13/17 13:15 11/11/17 12:43 Collagenase (Santyl Oint) 1 applic DAILY TOPICAL 10/22/17 12:00 11/11/17 08:20 Gabapentin (Neurontin) 600 mg TID PO 10/23/17 18:00 11/12/17 16:44 Daptomycin 640 mg/ Sodium Chloride 100 ml @ 200 mls/hr Q24H IV 10/31/17 16:00 11/12/17 16:44 Levofloxacin (Levaquin) 750 mg DAILY PO 11/02/17 16:00 11/12/17 09:23 Morphine Sulfate (Morphine Inj) 1 mg Q4H PRN IV PUSH BREAKTHROUGH PAIN 11/04/17 08:30 11/12/17 13:10 Morphine Sulfate (Morphine Inj) 2 mg BID PRN IV PUSH PRIOR TO DRESSING CHANGE 11/04/17 08:30 11/12/17 13:18 Furosemide (Lasix) 20 mg DAILY PO 11/06/17 09:00 11/12/17 09:23 Pantoprazole Sodium (Protonix) 40 mg DAILY PO 11/09/17 09:00 11/12/17 09:23 Insulin Aspart (NovoLOG SUPPLEMENTAL SCALE) 1 ACHS SLIDING SCALE SQ 11/08/17 17:00 11/12/17 12:00 Hydrocortisone (Eldecort 2.5% Cream) 1 applic BID TOPICAL 11/08/17 21:00 11/15/17 20:59 11/12/17 09:00 Oxycodone/ Acetaminophen (Percocet 7.5-325 Mg) 1 tab Q6H PRN PO pain6-10 11/12/17 11:15 11/12/17 16:43 Objective Remarks GENERAL: Well-nourished, well-developed patient HEAD: Normocephalic. EYES: No scleral icterus. No injection or drainage. RESPIRATORY: No accessory muscle use. EXTREMITIES: wound vac on right foot NEUROLOGICAL: No obvious focal deficit. Awake, alert, and oriented x3. Assessment/Plan Assessment 1. Anemia of chronic disease: due to known inflammation in a patient with recent treatment of diabetic foot ulcer currently on antibiotics. He is s/p EGD and colonoscopy. GI service will plan for capsule study in the outpatient setting. Iron profile with ACD. B12, folate replete. No evidence of hemolysis. Platelet count, WBC within normal limits. Continue to trend. If anemia does not recover or if WBC/platlet become involeved would consider bone marrow biopsy at that time. [facility]. Please call with further questions or concerns. Emma Ferguson MD Nov 12, 2017 18:19
[2017-11-12 21:02] VITALS: BP 139/65; PULSE 106; RESP 16; TEMP 99.5; O2SAT 96
--- NOTE | 2017-11-12 21:45 | HHI.PR ---
Subjective Remarks 57 YOWm with DM,Diabetic foot ulcer,Pl eff, Lung infilt US chest Mod to large Rt Pl eff Breathing better uses 02 off and on comfortable. Objective Vital Signs Vital Signs Date Time Temp Pulse Resp B/P (MAP) Pulse Ox O2 Delivery O2 Flow Rate FiO2 11/12/17 21:02 99.5 106 16 139/65 (89) 96 11/12/17 16:05 98.4 97 18 140/87 (104) 98 11/12/17 12:17 98.8 95 17 122/76 (91) 96 11/12/17 08:05 98.7 94 17 127/72 (90) 98 11/12/17 07:00 Room Air 11/12/17 03:56 99.4 91 18 122/73 (89) 96 11/12/17 00:00 98.3 93 19 123/62 (82) 94 I/O 11/11/17 11/11/17 11/11/17 11/12/17 11/12/17 11/12/17 06:59 14:59 22:59 06:59 14:59 22:59 Intake Total 420 ml 360 ml 100 ml 480 ml 720 ml Output Total 1350 ml 400 ml 1500 ml 1600 ml 1400 ml Balance -930 ml -40 ml -1400 ml -1120 ml -680 ml Intake Oral 420 ml 360 ml 480 ml 720 ml IV Total 100 ml Output Urine Total 1350 ml 400 ml 1500 ml 1600 ml 1400 ml # Bowel Movements 0 0 2 0 0 Result Diagram: 11/10/17 0330 11/08/17 1650 Objective Remarks GENERAL: WBWN WM,NAD SKIN: Warm and dry. HEAD: Normocephalic. EYES: No scleral icterus. No injection or drainage. NECK: Supple, trachea midline. No JVD or lymphadenopathy. CARDIOVASCULAR: Regular rate and rhythm without murmurs, gallops, or rubs. RESPIRATORY: Breath sounds equal bilaterally. No accessory muscle use. Decreased BS at Bases GASTROINTESTINAL: Abdomen soft, non-tender, nondistended. MUSCULOSKELETAL: No cyanosis, or edema. Foot ulcer, VAC device BACK: Nontender without obvious deformity. No CVA tenderness. A/P Assessment and Plan Bilat Pl effusion Lung infilt/ septic emboli DM Foot Ulcer PLAN: Cont Abx Cubicin and Levaquin per ID Supplement 02 to keep sat >90% Stable from pulm standpoint Curtis Liao MD Nov 12, 2017 21:45
[2017-11-12] MEDS: INSULIN DETEMIR 100 UNITS/ML VIAL SQ SCH (22:38)
[2017-11-13 01:04] VITALS: BP 114/70; PULSE 103; RESP 18; TEMP 99.5; O2SAT 97
[2017-11-13] MEDS: MORPHINE SULFATE 2 MG/ML SYRINGE IV PUSH PRN ×5 (01:57→21:46)
[2017-11-13] MEDS: SODIUM CHLORIDE 0.9% FLUSH 10 ML FLUSH IV FLUSH PRN (01:57)
[2017-11-13] MEDS: oxyCODONE/ACETAMINOPHEN 7.5 MG/325 MG TAB PO PRN ×2 (05:09→18:35)
[2017-11-13 05:33] VITALS: BP 122/76; PULSE 100; RESP 18; TEMP 97.6; O2SAT 95
[2017-11-13] MEDS: INSULIN ASPART SUPPLEMENTAL SCALE SQ SCH ×4 (08:00→21:57)
[2017-11-13 08:05] VITALS: BP 118/77; PULSE 97; RESP 18; TEMP 97.8; O2SAT 96
[2017-11-13] MEDS: LACTOBACILLUS ACIDOPHILUS TAB PO SCH ×2 (08:21→21:46)
[2017-11-13] MEDS: PANTOPRAZOLE SOD 40 MG DELAYED RELEASE TAB PO SCH (08:21)
[2017-11-13] MEDS: GABAPENTIN 300 MG CAP PO SCH ×3 (08:21→17:05)
[2017-11-13] MEDS: LEVOFLOXACIN 750 MG TAB PO SCH (08:21)
[2017-11-13] MEDS: FUROSEMIDE 20 MG TAB PO SCH (08:21)
[2017-11-13] MEDS: INSULIN ASPART 1,000 UNITS/10 ML VIAL SQ SCH ×3 (08:21→16:23)
[2017-11-13] MEDS: SODIUM CHLORIDE 0.9% FLUSH 10 ML FLUSH IV FLUSH SCH ×2 (08:22→21:46)
[2017-11-13] MEDS: COLLAGENASE OINT 30 GM TUBE TOPICAL SCH (08:24)
[2017-11-13] MEDS: HYDROCORTISONE 2.5% CREAM 30 GM TOPICAL SCH ×2 (08:25→21:00)
--- NOTE | 2017-11-13 08:55 | HHI.PR ---
Subjective Remarks good po no pain complains no reported melena or hematochezia no breathing difficulties Objective Vitals Vital Signs Date Time Temp Pulse Resp B/P (MAP) Pulse Ox O2 Delivery O2 Flow Rate FiO2 11/13/17 07:28 Room Air 2.00 11/13/17 05:33 Room Air 11/13/17 05:33 97.6 100 18 122/76 (91) 95 11/13/17 01:04 99.5 103 18 114/70 (85) 97 11/13/17 01:04 Room Air 11/12/17 21:02 99.5 106 16 139/65 (89) 96 11/12/17 21:02 Room Air 11/12/17 16:05 98.4 97 18 140/87 (104) 98 11/12/17 12:17 98.8 95 17 122/76 (91) 96 I/O 11/12/17 11/12/17 11/12/17 11/13/17 11/13/17 11/13/17 07:00 15:00 23:00 07:00 15:00 23:00 Intake Total 480 ml 720 ml 1020 ml Output Total 1600 ml 1400 ml 1650 ml Balance -1120 ml -680 ml -630 ml Intake Oral 480 ml 720 ml 1020 ml Output Urine Total 1600 ml 1400 ml 1650 ml # Bowel Movements 0 0 0 Result Diagram: 11/10/17 0330 Imaging Last Impressions Lower Extremity Ultrasound 11/11/17 0000 Signed Impressions: Service Date/Time: Saturday, November 11, 2017 09:17 - CONCLUSION: Normal examination. Wm Riley MD Chest X-Ray 11/08/17 0000 Signed Impressions: Service Date/Time: Wednesday, November 08, 2017 10:43 - CONCLUSION: Bibasilar infiltrates. Hector Pierre MD Foot MRI 10/24/17 0000 Signed Impressions: Service Date/Time: Tuesday, October 24, 2017 10:08 - CONCLUSION: 1. Marrow edema and mild marrow enhancement in the proximal fourth metatarsal suspicious for an early osteomyelitis. 2. Complex fluid collection in the lateral foot near the base of the fourth metatarsal, probably an abscess with surrounding cellulitis. 3. Extensive marrow edema in the midfoot as above, probably reactive. Patchy low signal in the navicular and cuboid may indicate some avascular necrosis. 4. Postoperative resection of the fifth toe and fifth metatarsal. Francisco Grider MD Ankle MRI 10/24/17 0000 Signed Impressions: Service Date/Time: Tuesday, October 24, 2017 10:08 - CONCLUSION: 1. No definite evidence for osteomyelitis around the right ankle. Marrow edema however has increased slightly since the prior exam, probably reactive and possibly associated with a developing Charcot arthropathy. Low signal patchy areas within the tarsal navicular are suspicious for developing avascular necrosis. There is edema in the soft tissues of the hindfoot. Trace joint fluid. Francisco Grider MD Foot X-Ray 10/23/17 0000 Signed Impressions: Service Date/Time: October 17:15 - CONCLUSION: 1. 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 Lupillo Webster MD Thoracentesis Ultrasound 10/20/17 0600 Signed Impressions: Service Date/Time: Friday, October 20, 2017 13:03 - CONCLUSION: Uncomplicated ultrasound guided thoracentesis. Smooth Saucedo MD Chest Ultrasound 10/17/17 0000 Signed Impressions: Service Date/Time: Tuesday, October 17, 2017 20:24 - CONCLUSION: A moderate to large right pleural effusion is confirmed sonographically and marked for thoracentesis. Hector Pierre MD Chest CT 10/16/17 0000 Signed Impressions: Service Date/Time: October 20:14 - CONCLUSION: Moderate-sized bilateral pleural effusions with adjacent compressive atelectasis and/or pneumonia. Scattered increased interstitial infiltrates within the perihilar regions and upper lobes bilaterally raising the possibility of pulmonary vascular congestion. Cardiomegaly and coronary artery calcifications are noted. Mild pretracheal and AP window mediastinal lymphadenopathy which is nonspecific. Degenerative changes and mild scoliosis of the thoracic spine. Hector Pierre MD Aspiration 10/16/17 0000 Signed Impressions: Service Date/Time: October 15:48 - CONCLUSION: Uncomplicated aspiration as above. Chetan Escobedo MD Abdomen/Pelvis CT 10/16/17 0000 Signed Impressions: Service Date/Time: October 20:14 - CONCLUSION: 1. Moderate-sized bilateral pleural effusions with adjacent consolidations consistent with atelectasis and/or pneumonia. 2. Tiny calcified nonobstructing bilateral renal calculi. 3. Mild hepatosplenomegaly. 4. Uncomplicated colonic diverticulosis. 5. Minimal free fluid within the pelvis. 6. Streakiness and fluid within the bilateral retroperitoneum inferior to the kidneys and extending into the presacral region. 7. Degenerative changes and scoliosis of the thoracolumbar spine. Hector Pierre MD Knee X-Ray 10/15/17 0000 Signed Impressions: Service Date/Time: Sunday, October 15, 2017 15:26 - CONCLUSION: Large joint effusion otherwise negative. Tu Lim MD FACR Carotid Artery Ultrasound 10/13/17 0000 Signed Impressions: Service Date/Time: Friday, October 13, 2017 16:12 - CONCLUSION: No evidence of flow-limiting carotid stenosis. Wm Riley MD Aorta w/Runoff CTA 10/13/17 0000 Signed Impressions: Service Date/Time: Friday, October 13, 2017 22:41 - CONCLUSION: 1. No aortic occlusive disease. 2. No significant iliac inflow stenosis. 3. No significant outflow stenosis. 4. Diffuse bilateral runoff disease with heavily calcified tibial arteries and significant venous contamination precluding patency evaluation beyond the very proximal calf. 5. Small to moderate bilateral pleural effusions with associated airspace disease at the lung bases, presumably atelectasis. 6. Trace free fluid in the deep pelvis. 7. Ancillary findings include hepatic steatosis, nonobstructing punctate calyceal calculus in the inferior pole of the left kidney and small suprapatellar right joint effusion. Lupillo Webster MD Objective Remarks awake and alert, oriented x 3. good sats, comfortable, anicteric no nuchal rigidity lungs- no rales , no wheezes, good air entry regular rhythm abdomen- soft, nontender, good bowel sounds extremities- right knee with effusion-- small effusion- medial aspect , no surrounding erythema- slight limitation in flexion but no pain right foot with dressing in place no calf tenderness or swelling Procedures 10/08/17 Right foot and ankle incision drainage, 5th metatarsal resection, 5th digit amputation 10/25/17 Incision and drainage Right foot/ankle abscess with bone biopsy right 4th metatarsal base; wound vac placement 11/07/17 EGD showing gastritis, esophagitis and hiatal hernia, Colonoscopy showing diverticulosis, internal and external hemorrhoids A/P Problem List: (1) Osteomyelitis of foot ICD Code: M86.9 - Osteomyelitis, unspecified (2) Leukocytosis ICD Code: D72.829 - Elevated white blood cell count, unspecified (3) Dehydration with hyponatremia ICD Code: E87.1 - Hypo-osmolality and hyponatremia (4) Acute kidney injury ICD Code: N17.9 - Acute kidney failure, unspecified (5) Sepsis ICD Code: A41.9 - Sepsis, unspecified organism Status: Acute (6) Diabetic foot ulcer ICD Code: E11.621 - Type 2 diabetes mellitus with foot ulcer; L97.509 - Non- pressure chronic ulcer of other part of unspecified foot with unspecified severity Status: Acute (7) Acute renal failure superimposed on stage 3 chronic kidney disease ICD Code: N17.9 - Acute kidney failure, unspecified; N18.3 - Chronic kidney disease, stage 3 (moderate) (8) Bacteremia due to Gram-positive bacteria ICD Code: R78.81 - Bacteremia (9) Postoperative anemia ICD Code: D64.9 - Anemia, unspecified Assessment and Plan This is a 57-year-old male who presented with sepsis Sepsis-- Secondary to diabetic foot infection, bacteremia, right foot osteomyelitis: Right foot osteomyelitis:S /P irrigation/debridement with wound vac placement 06/04. VAC removed 11/13. -Status post incision and drainage, fifth metatarsal resection, fifth digit amputation on 10/08/17. Podiatry is recommending IV antibiotics on discharge. Final antibiotic recommendations per infectious disease. Continue wound care. S on po pain meds -Rocephin discontinued on 11/02/2017 secondary to possible drug fever. Levaquin and Zyvox DC'd 10/28/2017. Wound culture growing staph and strep not A/B/D. -currently on daptomycin and Levaquin - ID ff - T down - Continue to monitor fevers. T max 99 clinically looks well - ff CBC, CK Right heel pressure ulcer - wound care team nurse consult- will d.w them- reconsult- Podiatry consult Right knee effusion:- - mild effusion on exam today- will continue to monitor - may need another therapeutic aspiration if continue to increase or worsens - Appreciate orthopedic surgery recommendations. So far cultures are negative. Bilateral pleural effusion:-improved clinically Elevated BNP- clinically appears comfortable r/io underlying CHF- ? from high out failure from anemia - pulmonary - stable-respiratory [place]- no SOB- up and ambulating -Appreciate pulmonology recommendations. Status post right-sided thoracentesis. Cytology is negative for malignant cells. -2D echo- EF 55# - S/P Lasix 20 mg IV 11/05 - Lasix 20 mg po daily Peripheral vascular disease: -Appreciate vascular surgery recommendations. Per vascular surgery, no surgical intervention is planned. Postoperative anemia: H and H stable S/P EGD/colonoscopy- gastritis, hemorrhoids - PPI - hold Heparin SQ Diabetes mellitus type 2: - good readings -Continue Levemir. Monitor Accu-Cheks and cover with sliding scale insulin. Continue preprandial insulin as well. Acute kidney injury superimposed on chronic kidney disease stage III- good urine out[ut -Creatinine continues to improve. Stage one pressure ulcer. -Patient needs turning every 2 hours. PT working with patient. Hypokalemia-resolved DVT prophylaxis: Heparin- hold with anemia patient up and ambulating Discharge Planning Patient most likely require outpatient IV antibiotics and wound VAC changes. 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
--- NOTE | 2017-11-13 10:47 | PD.WCN.NOT ---
Wound Consult Description: Wound consult ordered by for right heel. Communicated with: Dr Huerta Patient Recommendation: Apply Cavilon skin barrier film to right heel and cover with Maxorb II secured with gauze or VAC drape. Change dressing -- or with each Wound VAC dressing change. Please keep heel elevated off all surfaces for pressure relief. If in agreement with podiatry, order a blue heel raiser boot for use while patient is in bed. Additional Information: Patient seen on 4 for right heel evaluation. Specialty boot/shoe and sock removed from right heel to visualize a Deep Tissue Injury with partial thickness skin loss measuring 3.5cm x 3.5cm x 0.1cm without odor and without active drainage. Wound was skin prepped using Cavilon skin barrier film and covered with Maxorb II and secured with bordered gauze to keep wound dry. Also noted is a wound VAC to right lateral foot wound that appears to be macerated with visualized multiple layers of adaptic covering wound bed and surrounding periwound. White foam noted in contact with sensitrac pad with no apparent black granufoam used in dressing. Podiatry to be notified of findings for clarification of orders. Dr Huerta in agreement with recommendations for right heel wound of Calcium Alginate and dry cover with elevation of foot/ pressure relief at all times. *Addendum* 11/13/17 @1125 Wound VAC was removed by Veronique Augustine RN, [facility] for assessment of partially removed VAC drape causing a leak notification. Wound was cleansed with Normal Saline, measured 15.9cm x 4cm x 0.8cm adaptic used to cover tendon in wound bed, moist to gauze dressing, periwound skin prepped using Cavilon skin barrier film over the fungal appearing rash and petechia noted, and ABD pad placed to cover dressing by Veronique Augustine RN, [facility] and secured with rolled gauze and tape.There is a wound noted to the plantar surface of right foot measuring 5cm x 1cm x <0.1cm of ~90% dry eschar and ~10% red tissue noted in center with scant serosang drainage and hyperkeratotic periwound. There are sutures noted to the surgical incision with approximated wound margins on the medial dorsum that were cleansed and covered with single layer Xeroform and dry gauze. There is a purple area of non blanching discoloration noted to the medial right foot measuring ~1cm circumferentially that was prepped with Cavilon skin barrier film and unintentionally covered with the rolled gauze used to secure the primary dressings described above. Arely Bennett [facility] Nov 13, 2017 10:47
[2017-11-13 12:07] VITALS: BP 133/59; PULSE 108; RESP 18; TEMP 98.7; O2SAT 99
[2017-11-13] MEDS: oxyCODONE/ACETAMINOPHEN 5 MG/325 MG TAB PO PRN (12:10)
[2017-11-13 16:05] VITALS: BP 123/78; PULSE 107; RESP 18; TEMP 100.3; O2SAT 94
[2017-11-13] MEDS: SODIUM CHLORIDE 0.9% IV SCH (16:12)
[2017-11-13] MEDS: DAPTOMYCIN IV SCH (16:12)
[2017-11-13] MEDS: ACETAMINOPHEN 500 MG CPLT PO PRN (16:28)
[2017-11-13 20:00] VITALS: BP 112/64; PULSE 92; RESP 18; TEMP 99.6; O2SAT 99
--- NOTE | 2017-11-13 20:21 | HHI.PR ---
Subjective Remarks 57 YOWm with DM,Diabetic foot ulcer,Pl eff, Lung infilt US chest Mod to large Rt Pl eff Breathing better uses 02 off and on comfortable. VAC device taken out Objective Vital Signs Vital Signs Date Time Temp Pulse Resp B/P (MAP) Pulse Ox O2 Delivery O2 Flow Rate FiO2 11/13/17 16:05 100.3 107 18 123/78 (93) 94 11/13/17 12:07 98.7 108 18 133/59 (83) 99 11/13/17 08:05 97.8 97 18 118/77 (91) 96 11/13/17 07:28 Room Air 2.00 11/13/17 05:33 Room Air 11/13/17 05:33 97.6 100 18 122/76 (91) 95 11/13/17 01:04 99.5 103 18 114/70 (85) 97 11/13/17 01:04 Room Air 11/12/17 21:02 99.5 106 16 139/65 (89) 96 11/12/17 21:02 Room Air I/O 11/12/17 11/12/17 11/12/17 11/13/17 11/13/17 11/13/17 07:00 15:00 23:00 07:00 15:00 23:00 Intake Total 480 ml 720 ml 1020 ml 820 ml Output Total 1600 ml 1400 ml 1650 ml 850 ml Balance -1120 ml -680 ml -630 ml -30 ml Intake Oral 480 ml 720 ml 1020 ml 720 ml IV Total 100 ml Output Urine Total 1600 ml 1400 ml 1650 ml 850 ml # Bowel Movements 0 0 0 0 Result Diagram: 11/10/17 0330 Objective Remarks GENERAL: WBWN WM,NAD SKIN: Warm and dry. HEAD: Normocephalic. EYES: No scleral icterus. No injection or drainage. NECK: Supple, trachea midline. No JVD or lymphadenopathy. CARDIOVASCULAR: Regular rate and rhythm without murmurs, gallops, or rubs. RESPIRATORY: Breath sounds equal bilaterally. No accessory muscle use. Decreased BS at Bases GASTROINTESTINAL: Abdomen soft, non-tender, nondistended. MUSCULOSKELETAL: No cyanosis, or edema. Foot ulcer, VAC device BACK: Nontender without obvious deformity. No CVA tenderness. A/P Assessment and Plan Bilat Pl effusion Lung infilt/ septic emboli DM Foot Ulcer PLAN: Cont Abx Cubicin and Levaquin per ID Supplement 02 to keep sat >90% Stable from pulm standpoint Has lost his living place " prob I will be going in [facility]" Curtis Liao MD Nov 13, 2017 20:21
[2017-11-13] MEDS: INSULIN DETEMIR 100 UNITS/ML VIAL SQ SCH (21:57)
[2017-11-14] VITALS: BP 140/83; PULSE 103; RESP 18; TEMP 99.1; O2SAT 99
[2017-11-14] MEDS: oxyCODONE/ACETAMINOPHEN 7.5 MG/325 MG TAB PO PRN ×2 (01:32→21:30)
[2017-11-14 04:00] VITALS: BP 113/64; PULSE 92; RESP 20; TEMP 99; O2SAT 95
[2017-11-14] MEDS: SODIUM CHLORIDE 0.9% FLUSH 10 ML FLUSH IV FLUSH PRN (04:41)
[2017-11-14] MEDS: MORPHINE SULFATE 2 MG/ML SYRINGE IV PUSH PRN ×4 (04:41→19:36)
[2017-11-14] MEDS: INSULIN ASPART SUPPLEMENTAL SCALE SQ SCH ×4 (07:58→21:00)
[2017-11-14 08:00] VITALS: BP 121/64; PULSE 94; RESP 20; TEMP 99.3; O2SAT 95
[2017-11-14] MEDS: FUROSEMIDE 20 MG TAB PO SCH (08:05)
[2017-11-14] MEDS: GABAPENTIN 300 MG CAP PO SCH ×3 (08:05→17:44)
[2017-11-14] MEDS: LACTOBACILLUS ACIDOPHILUS TAB PO SCH ×2 (08:05→21:09)
[2017-11-14] MEDS: PANTOPRAZOLE SOD 40 MG DELAYED RELEASE TAB PO SCH (08:05)
[2017-11-14] MEDS: INSULIN ASPART 1,000 UNITS/10 ML VIAL SQ SCH ×3 (08:06→17:45)
[2017-11-14] MEDS: HYDROCORTISONE 2.5% CREAM 30 GM TOPICAL SCH ×2 (08:06→21:09)
[2017-11-14] MEDS: LEVOFLOXACIN 750 MG TAB PO SCH (08:06)
[2017-11-14] MEDS: SODIUM CHLORIDE 0.9% FLUSH 10 ML FLUSH IV FLUSH SCH ×2 (08:06→21:10)
[2017-11-14] MEDS: COLLAGENASE OINT 30 GM TUBE TOPICAL SCH (08:08)
[2017-11-14] MEDS: oxyCODONE/ACETAMINOPHEN 5 MG/325 MG TAB PO PRN ×2 (08:08→15:28)
--- NOTE | 2017-11-14 08:37 | HHI.PR ---
Subjective Remarks complains of pain - right foot- VAC removed yesterday discuss with him pain meds- adjusted states had a good BM last evening- formed manifesting drug seeking behavior Objective Vitals Vital Signs Date Time Temp Pulse Resp B/P (MAP) Pulse Ox O2 Delivery O2 Flow Rate FiO2 11/14/17 07:29 Nasal Cannula 2.00 11/14/17 04:00 99.0 92 20 113/64 (80) 95 11/14/17 04:00 Nasal Cannula 2.00 11/14/17 00:00 Nasal Cannula 2.00 11/14/17 00:00 99.1 103 18 140/83 (102) 99 11/13/17 20:00 Nasal Cannula 2.00 11/13/17 20:00 99.6 92 18 112/64 (80) 99 11/13/17 16:05 100.3 107 18 123/78 (93) 94 11/13/17 12:07 98.7 108 18 133/59 (83) 99 I/O 11/13/17 11/13/17 11/13/17 11/14/17 11/14/17 11/14/17 07:00 15:00 23:00 07:00 15:00 23:00 Intake Total 1020 ml 820 ml 910 ml Output Total 1650 ml 850 ml 1300 ml Balance -630 ml -30 ml -390 ml Intake Oral 1020 ml 720 ml 910 ml IV Total 100 ml Output Urine Total 1650 ml 850 ml 1300 ml # Bowel Movements 0 0 1 Result Diagram: 11/10/17 0330 Imaging Last Impressions Lower Extremity Ultrasound 11/11/17 0000 Signed Impressions: Service Date/Time: Saturday, November 11, 2017 09:17 - CONCLUSION: Normal examination. Wm Riley MD Chest X-Ray 11/08/17 0000 Signed Impressions: Service Date/Time: Wednesday, November 08, 2017 10:43 - CONCLUSION: Bibasilar infiltrates. Hector Pierre MD Foot MRI 10/24/17 0000 Signed Impressions: Service Date/Time: Tuesday, October 24, 2017 10:08 - CONCLUSION: 1. Marrow edema and mild marrow enhancement in the proximal fourth metatarsal suspicious for an early osteomyelitis. 2. Complex fluid collection in the lateral foot near the base of the fourth metatarsal, probably an abscess with surrounding cellulitis. 3. Extensive marrow edema in the midfoot as above, probably reactive. Patchy low signal in the navicular and cuboid may indicate some avascular necrosis. 4. Postoperative resection of the fifth toe and fifth metatarsal. Francisco Grider MD Ankle MRI 10/24/17 0000 Signed Impressions: Service Date/Time: Tuesday, October 24, 2017 10:08 - CONCLUSION: 1. No definite evidence for osteomyelitis around the right ankle. Marrow edema however has increased slightly since the prior exam, probably reactive and possibly associated with a developing Charcot arthropathy. Low signal patchy areas within the tarsal navicular are suspicious for developing avascular necrosis. There is edema in the soft tissues of the hindfoot. Trace joint fluid. Francisco Grider MD Foot X-Ray 10/23/17 0000 Signed Impressions: Service Date/Time: October 17:15 - CONCLUSION: 1. 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 Lupillo Webster MD Thoracentesis Ultrasound 10/20/17 0600 Signed Impressions: Service Date/Time: Friday, October 20, 2017 13:03 - CONCLUSION: Uncomplicated ultrasound guided thoracentesis. Smooth Saucedo MD Chest Ultrasound 10/17/17 0000 Signed Impressions: Service Date/Time: Tuesday, October 17, 2017 20:24 - CONCLUSION: A moderate to large right pleural effusion is confirmed sonographically and marked for thoracentesis. Hector Pierre MD Chest CT 10/16/17 0000 Signed Impressions: Service Date/Time: October 20:14 - CONCLUSION: Moderate-sized bilateral pleural effusions with adjacent compressive atelectasis and/or pneumonia. Scattered increased interstitial infiltrates within the perihilar regions and upper lobes bilaterally raising the possibility of pulmonary vascular congestion. Cardiomegaly and coronary artery calcifications are noted. Mild pretracheal and AP window mediastinal lymphadenopathy which is nonspecific. Degenerative changes and mild scoliosis of the thoracic spine. Hector Pierre MD Aspiration 10/16/17 0000 Signed Impressions: Service Date/Time: October 15:48 - CONCLUSION: Uncomplicated aspiration as above. Chetan Escobedo MD Abdomen/Pelvis CT 10/16/17 Signed Impressions: Service Date/Time: October 20:14 - CONCLUSION: 1. Moderate-sized bilateral pleural effusions with adjacent consolidations consistent with atelectasis and/or pneumonia. 2. Tiny calcified nonobstructing bilateral renal calculi. 3. Mild hepatosplenomegaly. 4. Uncomplicated colonic diverticulosis. 5. Minimal free fluid within the pelvis. 6. Streakiness and fluid within the bilateral retroperitoneum inferior to the kidneys and extending into the presacral region. 7. Degenerative changes and scoliosis of the thoracolumbar spine. Hector Pierre MD Knee X-Ray 10/15/17 0000 Signed Impressions: Service Date/Time: Sunday, October 15, 2017 15:26 - CONCLUSION: Large joint effusion otherwise negative. Tu Lim MD [facility] Carotid Artery Ultrasound 10/13/17 0000 Signed Impressions: Service Date/Time: Friday, October 13, 2017 16:12 - CONCLUSION: No evidence of flow-limiting carotid stenosis. Wm Riley MD Aorta w/Runoff CTA 10/13/17 0000 Signed Impressions: Service Date/Time: Friday, October 13, 2017 22:41 - CONCLUSION: 1. No aortic occlusive disease. 2. No significant iliac inflow stenosis. 3. No significant outflow stenosis. 4. Diffuse bilateral runoff disease with heavily calcified tibial arteries and significant venous contamination precluding patency evaluation beyond the very proximal calf. 5. Small to moderate bilateral pleural effusions with associated airspace disease at the lung bases, presumably atelectasis. 6. Trace free fluid in the deep pelvis. 7. Ancillary findings include hepatic steatosis, nonobstructing punctate calyceal calculus in the inferior pole of the left kidney and small suprapatellar right joint effusion. Lupillo Webster MD Objective Remarks awake and alert, oriented x 3. good sats, comfortable, no distress anicteric no nuchal rigidity lungs- no rales , no wheezes, good air entry regular rhythm abdomen- soft, nontender, good bowel sounds, no guarding or rigidity extremities- right knee with effusion-- small effusion- medial aspect , no surrounding erythema- slight limitation in flexion but no pain right foot s/p 5th toe amputation-dressing in place Procedures 10/08/17 Right foot and ankle incision drainage, 5th metatarsal resection, 5th digit amputation 10/25/17 Incision and drainage Right foot/ankle abscess with bone biopsy right 4th metatarsal base; wound vac placement 11/07/17 EGD showing gastritis, esophagitis and hiatal hernia, Colonoscopy showing diverticulosis, internal and external hemorrhoids A/P Problem List: (1) Osteomyelitis of foot ICD Code: M86.9 - Osteomyelitis, unspecified (2) Leukocytosis ICD Code: D72.829 - Elevated white blood cell count, unspecified (3) Dehydration with hyponatremia ICD Code: E87.1 - Hypo-osmolality and hyponatremia (4) Acute kidney injury ICD Code: N17.9 - Acute kidney failure, unspecified (5) Sepsis ICD Code: A41.9 - Sepsis, unspecified organism Status: Acute (6) Diabetic foot ulcer ICD Code: E11.621 - Type 2 diabetes mellitus with foot ulcer; L97.509 - Non- pressure chronic ulcer of other part of unspecified foot with unspecified severity Status: Acute (7) Acute renal failure superimposed on stage 3 chronic kidney disease ICD Code: N17.9 - Acute kidney failure, unspecified; N18.3 - Chronic kidney disease, stage 3 (moderate) (8) Bacteremia due to Gram-positive bacteria ICD Code: R78.81 - Bacteremia (9) Postoperative anemia ICD Code: D64.9 - Anemia, unspecified Assessment and Plan This is a 57-year-old male who presented with sepsis Sepsis-- Secondary to diabetic foot infection, bacteremia, right foot osteomyelitis: VAC removed 11/13 Right foot osteomyelitis:S /P irrigation/debridement with wound vac placement 06/04. - S. aureus -Status post incision and drainage, fifth metatarsal resection, fifth digit amputation on 10/08/17. -Rocephin discontinued on 11/02/2017 secondary to possible drug fever. Levaquin and Zyvox DC'd 10/28/2017. Wound culture growing staph and strep not A/B/D. -currently on daptomycin and Levaquin - ID ff - Continue to monitor fevers. T max 99 clinically looks well - ff CBC, CK - continue pain management- patient manifesting drug seeking behavior New Right heel pressure ulcer - wound care team nurse ff - Podiatry reconsulted 12/14 Right knee effusion:- - mild effusion on exam today- will continue to monitor - may need another therapeutic aspiration if continue to increase or worsens - Appreciate orthopedic surgery recommendations. So far cultures are negative. Bilateral pleural effusion:-improved clinically Elevated BNP- clinically appears comfortable r/io underlying CHF- ? from high out failure from anemia - pulmonary - stable-respiratory [place]- no SOB- up and ambulating -Appreciate pulmonology recommendations. Status post right-sided thoracentesis. Cytology is negative for malignant cells. -2D echo- EF 55# - S/P Lasix 20 mg IV 11/05 - Lasix 20 mg po daily Peripheral vascular disease: -Appreciate vascular surgery recommendations. Per vascular surgery, no surgical intervention is planned. Postoperative anemia: H and H stable S/P EGD/colonoscopy- gastritis, hemorrhoids - PPI Diabetes mellitus type 2: - good readings -Continue Levemir. Monitor Accu-Cheks and cover with sliding scale insulin. Continue preprandial insulin as well. Acute kidney injury superimposed on chronic kidney disease stage III- good urine output -Creatinine continues to improve. Stage one pressure ulcer. -Patient needs turning every 2 hours. PT working with patient. Hypokalemia-resolved DVT prophylaxis: Heparin- hold with anemia patient up and ambulating Discharge Planning Patient most likely require outpatient IV antibiotics d/w patient- may need PICC for emt intermediate IV antibiotic administration- refused PICC states homeless - lives in the [place] Problem Qualifiers (1) Sepsis: Qualified Codes: A41.9 - Sepsis, unspecified organism (2) Diabetic foot ulcer: Qualified Codes: E10.621 - Type 1 diabetes mellitus with foot ulcer; L97.419 - Non-pressure chronic ulcer of right heel and midfoot with unspecified severity Noni Huerta MD Nov 14, 2017 08:37
[2017-11-14 12:00] VITALS: BP 117/56; PULSE 94; RESP 20; TEMP 99; O2SAT 96
[2017-11-14] MEDS: DAPTOMYCIN IV SCH (15:28)
[2017-11-14] MEDS: SODIUM CHLORIDE 0.9% IV SCH (15:28)
[2017-11-14 16:00] VITALS: BP 117/61; PULSE 107; RESP 20; TEMP 102.2; O2SAT 94
[2017-11-14] MEDS: ACETAMINOPHEN 500 MG CPLT PO PRN (16:17)
--- NOTE | 2017-11-14 17:04 | HHI.PR ---
Subjective Remarks 57 YOWm with DM,Diabetic foot ulcer,Pl eff, Lung infilt US chest Mod to large Rt Pl eff Breathing better uses 02 off and on comfortable. VAC device taken out Objective Vital Signs Vital Signs Date Time Temp Pulse Resp B/P (MAP) Pulse Ox O2 Delivery O2 Flow Rate FiO2 11/14/17 16:00 102.2 107 20 117/61 (79) 94 11/14/17 12:00 99.0 94 20 117/56 (76) 96 11/14/17 08:00 99.3 94 20 121/64 (83) 95 11/14/17 07:29 Nasal Cannula 2.00 11/14/17 04:00 99.0 92 20 113/64 (80) 95 11/14/17 04:00 Nasal Cannula 2.00 11/14/17 00:00 Nasal Cannula 2.00 11/14/17 00:00 99.1 103 18 140/83 (102) 99 11/13/17 20:00 Nasal Cannula 2.00 11/13/17 20:00 99.6 92 18 112/64 (80) 99 I/O 11/13/17 11/13/17 11/13/17 11/14/17 11/14/17 11/14/17 07:00 15:00 23:00 07:00 15:00 23:00 Intake Total 1020 ml 820 ml 910 ml Output Total 1650 ml 850 ml 1300 ml Balance -630 ml -30 ml -390 ml Intake Oral 1020 ml 720 ml 910 ml IV Total 100 ml Output Urine Total 1650 ml 850 ml 1300 ml # Bowel Movements 0 0 1 Result Diagram: 11/10/17 0330 Objective Remarks GENERAL: WBWN WM,NAD SKIN: Warm and dry. HEAD: Normocephalic. EYES: No scleral icterus. No injection or drainage. NECK: Supple, trachea midline. No JVD or lymphadenopathy. CARDIOVASCULAR: Regular rate and rhythm without murmurs, gallops, or rubs. RESPIRATORY: Breath sounds equal bilaterally. No accessory muscle use. Decreased BS at Bases GASTROINTESTINAL: Abdomen soft, non-tender, nondistended. MUSCULOSKELETAL: No cyanosis, or edema. Foot ulcer, VAC device BACK: Nontender without obvious deformity. No CVA tenderness. A/P Assessment and Plan Bilat Pl effusion Lung infilt/ septic emboli DM Foot Ulcer PLAN: Cont Abx Cubicin and Levaquin per ID Supplement 02 to keep sat >90%" Stable from Pulm standpoint I will sign off Available prn Curtis Liao MD Nov 14, 2017 17:04
[2017-11-14 20:00] VITALS: BP 113/56; PULSE 93; RESP 20; TEMP 99; O2SAT 97
[2017-11-14] MEDS: INSULIN DETEMIR 100 UNITS/ML VIAL SQ SCH (21:10)
[2017-11-15] VITALS (7 sets, daily range): BP systolic 109–128; BP diastolic 57–65; PULSE 92–111; RESP 16–20; TEMP 98.4–100.4; O2SAT 94–97
[2017-11-15] MEDS: MORPHINE SULFATE 2 MG/ML SYRINGE IV PUSH PRN ×5 (00:58→20:30)
[2017-11-15] MEDS: oxyCODONE/ACETAMINOPHEN 7.5 MG/325 MG TAB PO PRN ×4 (03:37→23:09)
[2017-11-15] MEDS: GABAPENTIN 300 MG CAP PO SCH ×3 (08:34→17:22)
[2017-11-15] MEDS: COLLAGENASE OINT 30 GM TUBE TOPICAL SCH (08:34)
[2017-11-15] MEDS: SODIUM CHLORIDE 0.9% FLUSH 10 ML FLUSH IV FLUSH SCH ×2 (08:34→20:32)
[2017-11-15] MEDS: LEVOFLOXACIN 750 MG TAB PO SCH (08:34)
[2017-11-15] MEDS: LACTOBACILLUS ACIDOPHILUS TAB PO SCH ×2 (08:34→20:29)
[2017-11-15] MEDS: PANTOPRAZOLE SOD 40 MG DELAYED RELEASE TAB PO SCH (08:34)
[2017-11-15] MEDS: HYDROCORTISONE 2.5% CREAM 30 GM TOPICAL SCH (08:34)
[2017-11-15] MEDS: FUROSEMIDE 20 MG TAB PO SCH (08:34)
[2017-11-15] MEDS: INSULIN ASPART 1,000 UNITS/10 ML VIAL SQ SCH ×3 (08:35→17:23)
[2017-11-15] MEDS: INSULIN ASPART SUPPLEMENTAL SCALE SQ SCH ×4 (08:35→20:32)
--- NOTE | 2017-11-15 12:49 | HHI.PR ---
Subjective Remarks no complains good po no diarrhea Objective Vitals Vital Signs Date Time Temp Pulse Resp B/P (MAP) Pulse Ox O2 Delivery O2 Flow Rate FiO2 11/15/17 12:00 98.9 97 18 117/65 (82) 95 11/15/17 08:00 Nasal Cannula 2.00 11/15/17 08:00 98.4 99 16 128/65 (86) 97 11/15/17 05:05 98.9 99 18 117/65 (82) 94 11/15/17 00:00 99.1 92 18 115/57 (76) 94 11/14/17 20:00 99.0 93 20 113/56 (75) 97 11/14/17 19:00 Room Air 11/14/17 16:00 102.2 107 20 117/61 (79) 94 I/O 11/14/17 11/14/17 11/14/17 11/15/17 11/15/17 11/15/17 07:00 15:00 23:00 07:00 15:00 23:00 Intake Total 910 ml 820 ml 360 ml Output Total 1300 ml 1600 ml 450 ml Balance -390 ml -780 ml -90 ml Intake Oral 910 ml 720 ml 360 ml IV Total 100 ml Output Urine Total 1300 ml 1600 ml 450 ml # Bowel Movements 1 1 Imaging Last Impressions Lower Extremity Ultrasound 11/11/17 0000 Signed Impressions: Service Date/Time: Saturday, November 11, 2017 09:17 - CONCLUSION: Normal examination. Wm Riley MD Chest X-Ray 11/08/17 0000 Signed Impressions: Service Date/Time: Wednesday, November 08, 2017 10:43 - CONCLUSION: Bibasilar infiltrates. Hector Pierre MD Foot MRI 10/24/17 0000 Signed Impressions: Service Date/Time: Tuesday, October 24, 2017 10:08 - CONCLUSION: 1. Marrow edema and mild marrow enhancement in the proximal fourth metatarsal suspicious for an early osteomyelitis. 2. Complex fluid collection in the lateral foot near the base of the fourth metatarsal, probably an abscess with surrounding cellulitis. 3. Extensive marrow edema in the midfoot as above, probably reactive. Patchy low signal in the navicular and cuboid may indicate some avascular necrosis. 4. Postoperative resection of the fifth toe and fifth metatarsal. Francisco Grider MD Ankle MRI 10/24/17 0000 Signed Impressions: Service Date/Time: Tuesday, October 24, 2017 10:08 - CONCLUSION: 1. No definite evidence for osteomyelitis around the right ankle. Marrow edema however has increased slightly since the prior exam, probably reactive and possibly associated with a developing Charcot arthropathy. Low signal patchy areas within the tarsal navicular are suspicious for developing avascular necrosis. There is edema in the soft tissues of the hindfoot. Trace joint fluid. Francisco Grider MD Foot X-Ray 10/23/17 0000 Signed Impressions: Service Date/Time: October 17:15 - CONCLUSION: 1. 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 Lupillo Webster MD Thoracentesis Ultrasound 10/20/17 0600 Signed Impressions: Service Date/Time: Friday, October 20, 2017 13:03 - CONCLUSION: Uncomplicated ultrasound guided thoracentesis. Smooth Saucedo MD Chest Ultrasound 10/17/17 0000 Signed Impressions: Service Date/Time: Tuesday, October 17, 2017 20:24 - CONCLUSION: A moderate to large right pleural effusion is confirmed sonographically and marked for thoracentesis. Hector Pierre MD Chest CT 10/16/17 0000 Signed Impressions: Service Date/Time: October 20:14 - CONCLUSION: Moderate-sized bilateral pleural effusions with adjacent compressive atelectasis and/or pneumonia. Scattered increased interstitial infiltrates within the perihilar regions and upper lobes bilaterally raising the possibility of pulmonary vascular congestion. Cardiomegaly and coronary artery calcifications are noted. Mild pretracheal and AP window mediastinal lymphadenopathy which is nonspecific. Degenerative changes and mild scoliosis of the thoracic spine. Hector Pierre MD Aspiration 10/16/17 0000 Signed Impressions: Service Date/Time: October 15:48 - CONCLUSION: Uncomplicated aspiration as above. Chetan Escobedo MD Abdomen/Pelvis CT 10/16/17 0000 Signed Impressions: Service Date/Time: October 20:14 - CONCLUSION: 1. Moderate-sized bilateral pleural effusions with adjacent consolidations consistent with atelectasis and/or pneumonia. 2. Tiny calcified nonobstructing bilateral renal calculi. 3. Mild hepatosplenomegaly. 4. Uncomplicated colonic diverticulosis. 5. Minimal free fluid within the pelvis. 6. Streakiness and fluid within the bilateral retroperitoneum inferior to the kidneys and extending into the presacral region. 7. Degenerative changes and scoliosis of the thoracolumbar spine. Hector Pierre MD Knee X-Ray 10/15/17 0000 Signed Impressions: Service Date/Time: Sunday, October 15, 2017 15:26 - CONCLUSION: Large joint effusion otherwise negative. Tu Lim MD FACR Carotid Artery Ultrasound 10/13/17 0000 Signed Impressions: Service Date/Time: Friday, October 13, 2017 16:12 - CONCLUSION: No evidence of flow-limiting carotid stenosis. Wm Riley MD Aorta w/Runoff CTA 10/13/17 0000 Signed Impressions: Service Date/Time: Friday, October 13, 2017 22:41 - CONCLUSION: 1. No aortic occlusive disease. 2. No significant iliac inflow stenosis. 3. No significant outflow stenosis. 4. Diffuse bilateral runoff disease with heavily calcified tibial arteries and significant venous contamination precluding patency evaluation beyond the very proximal calf. 5. Small to moderate bilateral pleural effusions with associated airspace disease at the lung bases, presumably atelectasis. 6. Trace free fluid in the deep pelvis. 7. Ancillary findings include hepatic steatosis, nonobstructing punctate calyceal calculus in the inferior pole of the left kidney and small suprapatellar right joint effusion. Lupillo Webster MD Objective Remarks awake and alert, oriented x 3. good sats, comfortable, anicteric no nuchal rigidity lungs- no rales , no wheezes, good air entry regular rhythm abdomen- soft, nontender, good bowel sounds extremities- right knee with effusion-- small effusion-- improved - medial aspect , no surrounding erythema- slight limitation in flexion but no pain right foot with dressing in place no calf tenderness or swelling Procedures 10/08/17 Right foot and ankle incision drainage, 5th metatarsal resection, 5th digit amputation 10/25/17 Incision and drainage Right foot/ankle abscess with bone biopsy right 4th metatarsal base; wound vac placement 11/07/17 EGD showing gastritis, esophagitis and hiatal hernia, Colonoscopy showing diverticulosis, internal and external hemorrhoids A/P Problem List: (1) Osteomyelitis of foot ICD Code: M86.9 - Osteomyelitis, unspecified (2) Leukocytosis ICD Code: D72.829 - Elevated white blood cell count, unspecified (3) Dehydration with hyponatremia ICD Code: E87.1 - Hypo-osmolality and hyponatremia (4) Acute kidney injury ICD Code: N17.9 - Acute kidney failure, unspecified (5) Sepsis ICD Code: A41.9 - Sepsis, unspecified organism Status: Acute (6) Diabetic foot ulcer ICD Code: E11.621 - Type 2 diabetes mellitus with foot ulcer; L97.509 - Non- pressure chronic ulcer of other part of unspecified foot with unspecified severity Status: Acute (7) Acute renal failure superimposed on stage 3 chronic kidney disease ICD Code: N17.9 - Acute kidney failure, unspecified; N18.3 - Chronic kidney disease, stage 3 (moderate) (8) Bacteremia due to Gram-positive bacteria ICD Code: R78.81 - Bacteremia (9) Postoperative anemia ICD Code: D64.9 - Anemia, unspecified Assessment and Plan This is a 57-year-old male who presented with sepsis Sepsis-- Secondary to diabetic foot infection, bacteremia, right foot osteomyelitis: Right foot osteomyelitis:S /P irrigation/debridement with wound vac placement 06/04. VAC removed 11/13. -Status post incision and drainage, fifth metatarsal resection, fifth digit amputation on 10/08/17. Podiatry is recommending IV antibiotics on discharge. Final antibiotic recommendations per infectious disease. Continue wound care. S on po pain meds -Rocephin discontinued on 11/02/2017 secondary to possible drug fever. Levaquin and Zyvox DC'd 10/28/2017. Wound culture growing staph and strep not A/B/D. -currently on daptomycin and Levaquin - ID ff - T down - Continue to monitor fevers. T max 99 clinically looks well - ff CBC, CK recheck in am - order for PICC Right heel pressure ulcer - - off weight bearing - wound care team nurse consult- - appreciate Podiatry recommendations Right knee effusion- -improved- will continue to monitor - may need another therapeutic aspiration if continue to increase or worsens - Appreciate orthopedic surgery recommendations. So far cultures are negative. Bilateral pleural effusion:-improved clinically Elevated BNP- clinically appears comfortable r/io underlying CHF- ? from high out failure from anemia - pulmonary - stable-respiratory [place]- no SOB- up and ambulating -Appreciate pulmonology recommendations. Status post right-sided thoracentesis. Cytology is negative for malignant cells. -2D echo- EF 55# - S/P Lasix 20 mg IV 11/05 - Lasix 20 mg po daily Peripheral vascular disease: -Appreciate vascular surgery recommendations. Per vascular surgery, no surgical intervention is planned. Postoperative anemia: H and H stable S/P EGD/colonoscopy- gastritis, hemorrhoids - PPI Diabetes mellitus type 2: - good readings -Continue Levemir. Monitor Accu-Cheks and cover with sliding scale insulin. Continue preprandial insulin as well. Acute kidney injury superimposed on chronic kidney disease stage III- good urine out[ut -Creatinine continues to improve. Stage one pressure ulcer. -Patient needs turning every 2 hours. PT working with patient. Hypokalemia-resolved DVT prophylaxis: Heparin- hold with anemia patient up and ambulating Discharge Planning Patient most likely require outpatient IV antibiotics and wound VAC changes. 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
[2017-11-15] MEDS: ACETAMINOPHEN 500 MG CPLT PO PRN ×2 (14:19→18:14)
[2017-11-15] MEDS: DAPTOMYCIN IV SCH (16:45)
[2017-11-15] MEDS: SODIUM CHLORIDE 0.9% IV SCH (16:45)
[2017-11-15] MEDS: INSULIN DETEMIR 100 UNITS/ML VIAL SQ SCH (20:32)
[2017-11-16] MEDS: MORPHINE SULFATE 2 MG/ML SYRINGE IV PUSH PRN ×4 (03:09→21:49)
[2017-11-16 05:33] VITALS: BP 106/63; PULSE 97; RESP 20; TEMP 97.7; O2SAT 97
[2017-11-16] MEDS: oxyCODONE/ACETAMINOPHEN 7.5 MG/325 MG TAB PO PRN ×3 (05:44→17:37)
[2017-11-16 08:00] VITALS: BP 116/58; PULSE 90; RESP 22; TEMP 98.6; O2SAT 95
[2017-11-16 08:12] LABS: HEMATOCRIT 26.6 % (39.0-51.0); HEMOGLOBIN 8.8 GM/DL (13.0-17.0); MEAN CELL VOLUME 78.8 FL (80.0-100.0); MEAN PLATELET VOLUME 8.5 FL (7.0-11.0); PLATELET COUNT 362 TH/MM3 (150-450); RED BLOOD COUNT 3.37 MIL/MM3 (4.50-5.90); RED CELL DISTRIBUTION WIDTH 16.3 % (11.6-17.2)
--- NOTE | 2017-11-16 08:58 | HHI.PR ---
Subjective Remarks clinically doing great no complains of pain right knee- swelling improved- able to do flex 45 degrees good po, good BM Objective Vitals Vital Signs Date Time Temp Pulse Resp B/P (MAP) Pulse Ox O2 Delivery O2 Flow Rate FiO2 11/16/17 07:17 17 11/16/17 05:33 97.7 97 20 106/63 (77) 97 11/15/17 20:30 Nasal Cannula 2.00 11/15/17 20:00 99.1 111 20 109/57 (74) 94 11/15/17 18:08 100.4 11/15/17 16:00 99.0 94 18 114/59 (77) 95 11/15/17 12:00 98.9 97 18 117/65 (82) 95 I/O 11/15/17 11/15/17 11/15/17 11/16/17 11/16/17 11/16/17 07:00 15:00 23:00 07:00 15:00 23:00 Intake Total 360 ml 720 ml 360 ml Output Total 450 ml 1100 ml 280 ml Balance -90 ml -380 ml 80 ml Intake Oral 360 ml 720 ml 360 ml Output Urine Total 450 ml 1100 ml 280 ml # Bowel Movements 1 1 Result Diagram: 11/16/17 0632 Imaging Last Impressions Lower Extremity Ultrasound 11/11/17 0000 Signed Impressions: Service Date/Time: Saturday, November 11, 2017 09:17 - CONCLUSION: Normal examination. Wm Riley MD Chest X-Ray 11/08/17 0000 Signed Impressions: Service Date/Time: Wednesday, November 08, 2017 10:43 - CONCLUSION: Bibasilar infiltrates. Hector Pierre MD Foot MRI 10/24/17 0000 Signed Impressions: Service Date/Time: Tuesday, October 24, 2017 10:08 - CONCLUSION: 1. Marrow edema and mild marrow enhancement in the proximal fourth metatarsal suspicious for an early osteomyelitis. 2. Complex fluid collection in the lateral foot near the base of the fourth metatarsal, probably an abscess with surrounding cellulitis. 3. Extensive marrow edema in the midfoot as above, probably reactive. Patchy low signal in the navicular and cuboid may indicate some avascular necrosis. 4. Postoperative resection of the fifth toe and fifth metatarsal. Francisco rGider MD Ankle MRI 10/24/17 0000 Signed Impressions: Service Date/Time: Tuesday, October 24, 2017 10:08 - CONCLUSION: 1. No definite evidence for osteomyelitis around the right ankle. Marrow edema however has increased slightly since the prior exam, probably reactive and possibly associated with a developing Charcot arthropathy. Low signal patchy areas within the tarsal navicular are suspicious for developing avascular necrosis. There is edema in the soft tissues of the hindfoot. Trace joint fluid. Francisco Grider MD Foot X-Ray 10/23/17 Signed Impressions: Service Date/Time: October 17:15 - CONCLUSION: 1. 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 Lupillo Webster MD Thoracentesis Ultrasound 10/20/17 0600 Signed Impressions: Service Date/Time: Friday, October 20, 2017 13:03 - CONCLUSION: Uncomplicated ultrasound guided thoracentesis. Smooth Saucedo MD Chest Ultrasound 10/17/17 0000 Signed Impressions: Service Date/Time: Tuesday, October 17, 2017 20:24 - CONCLUSION: A moderate to large right pleural effusion is confirmed sonographically and marked for thoracentesis. Hector Pierre MD Chest CT 10/16/17 Signed Impressions: Service Date/Time: October 20:14 - CONCLUSION: Moderate-sized bilateral pleural effusions with adjacent compressive atelectasis and/or pneumonia. Scattered increased interstitial infiltrates within the perihilar regions and upper lobes bilaterally raising the possibility of pulmonary vascular congestion. Cardiomegaly and coronary artery calcifications are noted. Mild pretracheal and AP window mediastinal lymphadenopathy which is nonspecific. Degenerative changes and mild scoliosis of the thoracic spine. Hector Pierre MD Aspiration 10/16/17 Signed Impressions: Service Date/Time: October 15:48 - CONCLUSION: Uncomplicated aspiration as above. Chetan Escobedo MD Abdomen/Pelvis CT 10/16/17 Signed Impressions: Service Date/Time: October 20:14 - CONCLUSION: 1. Moderate-sized bilateral pleural effusions with adjacent consolidations consistent with atelectasis and/or pneumonia. 2. Tiny calcified nonobstructing bilateral renal calculi. 3. Mild hepatosplenomegaly. 4. Uncomplicated colonic diverticulosis. 5. Minimal free fluid within the pelvis. 6. Streakiness and fluid within the bilateral retroperitoneum inferior to the kidneys and extending into the presacral region. 7. Degenerative changes and scoliosis of the thoracolumbar spine. Hector Pierre MD Knee X-Ray 10/15/17 0000 Signed Impressions: Service Date/Time: Sunday, October 15, 2017 15:26 - CONCLUSION: Large joint effusion otherwise negative. Tu Lim MD FACR Carotid Artery Ultrasound 10/13/17 0000 Signed Impressions: Service Date/Time: Friday, October 13, 2017 16:12 - CONCLUSION: No evidence of flow-limiting carotid stenosis. Wm Riley MD Aorta w/Runoff CTA 10/13/17 0000 Signed Impressions: Service Date/Time: Friday, October 13, 2017 22:41 - CONCLUSION: 1. No aortic occlusive disease. 2. No significant iliac inflow stenosis. 3. No significant outflow stenosis. 4. Diffuse bilateral runoff disease with heavily calcified tibial arteries and significant venous contamination precluding patency evaluation beyond the very proximal calf. 5. Small to moderate bilateral pleural effusions with associated airspace disease at the lung bases, presumably atelectasis. 6. Trace free fluid in the deep pelvis. 7. Ancillary findings include hepatic steatosis, nonobstructing punctate calyceal calculus in the inferior pole of the left kidney and small suprapatellar right joint effusion. Lupillo Webster MD Objective Remarks awake and alert, oriented x 3. good sats, comfortable, anicteric no nuchal rigidity lungs- no rales , no wheezes, good air entry regular rhythm abdomen- soft, nontender, good bowel sounds extremities- right knee with effusion-- small effusion- suprapatellar--improving, no erythema, better range of motion - able to flex knee more right foot with dressing in place no calf tenderness or swelling Procedures 10/08/17 Right foot and ankle incision drainage, 5th metatarsal resection, 5th digit amputation 10/25/17 Incision and drainage Right foot/ankle abscess with bone biopsy right 4th metatarsal base; wound vac placement 11/07/17 EGD showing gastritis, esophagitis and hiatal hernia, Colonoscopy showing diverticulosis, internal and external hemorrhoids A/P Problem List: (1) Osteomyelitis of foot ICD Code: M86.9 - Osteomyelitis, unspecified (2) Leukocytosis ICD Code: D72.829 - Elevated white blood cell count, unspecified (3) Dehydration with hyponatremia ICD Code: E87.1 - Hypo-osmolality and hyponatremia (4) Acute kidney injury ICD Code: N17.9 - Acute kidney failure, unspecified (5) Sepsis ICD Code: A41.9 - Sepsis, unspecified organism Status: Acute (6) Diabetic foot ulcer ICD Code: E11.621 - Type 2 diabetes mellitus with foot ulcer; L97.509 - Non- pressure chronic ulcer of other part of unspecified foot with unspecified severity Status: Acute (7) Acute renal failure superimposed on stage 3 chronic kidney disease ICD Code: N17.9 - Acute kidney failure, unspecified; N18.3 - Chronic kidney disease, stage 3 (moderate) (8) Bacteremia due to Gram-positive bacteria ICD Code: R78.81 - Bacteremia (9) Postoperative anemia ICD Code: D64.9 - Anemia, unspecified Assessment and Plan This is a 57-year-old male who presented with sepsis S. aureus Sepsis-- Secondary to diabetic foot infection, bacteremia, right foot osteomyelitis: Right foot osteomyelitis:S /P irrigation/debridement with wound vac placement 06/04. VAC removed 11/13. Status post incision and drainage, fifth metatarsal resection, fifth digit amputation on 10/08/17. Podiatry is recommending IV antibiotics on discharge. Final antibiotic recommendations per infectious disease. Continue wound care. S on po pain meds -Rocephin discontinued on 11/02/2017 secondary to possible drug fever. -currently on daptomycin and Levaquin - ID ff - T down- occasional low grade fever - CBC , CK today - order for PICC Right heel pressure ulcer - - off weight bearing - appreciate Podiatry recommendations Right knee effusion- -improving - will continue to monitor - may need another therapeutic aspiration if continue to increase or worsens - Appreciate orthopedic surgery recommendations. So far cultures are negative. Bilateral pleural effusion:-improved clinically Elevated BNP- clinically appears comfortable r/io underlying CHF- ? from high out failure from anemia - pulmonary - stable-respiratory [place]- no SOB- up and ambulating -Appreciate pulmonology recommendations. Status post right-sided thoracentesis. Cytology is negative for malignant cells. -2D echo- EF 55# - S/P Lasix 20 mg IV 11/05 - Lasix 20 mg po daily Peripheral vascular disease: -Appreciate vascular surgery recommendations. Per vascular surgery, no surgical intervention is planned. Postoperative anemia: H and H stable S/P EGD/colonoscopy- gastritis, hemorrhoids - PPI Diabetes mellitus type 2: - good readings -Continue Levemir. Monitor Accu-Cheks and cover with sliding scale insulin. Continue preprandial insulin as well. Acute kidney injury superimposed on chronic kidney disease stage III- good urine out[ut -Creatinine continues to improve. Stage one pressure ulcer. -Patient needs turning every 2 hours. PT working with patient. Hypokalemia-resolved DVT prophylaxis: Heparin- hold with anemia patient up and ambulating Discharge Planning Patient most likely require outpatient IV antibiotics and wound VAC changes. 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
[2017-11-16] MEDS: LEVOFLOXACIN 750 MG TAB PO SCH (09:07)
[2017-11-16] MEDS: PANTOPRAZOLE SOD 40 MG DELAYED RELEASE TAB PO SCH (09:07)
[2017-11-16] MEDS: FUROSEMIDE 20 MG TAB PO SCH (09:07)
[2017-11-16] MEDS: LACTOBACILLUS ACIDOPHILUS TAB PO SCH ×2 (09:07→20:15)
[2017-11-16] MEDS: INSULIN ASPART SUPPLEMENTAL SCALE SQ SCH ×4 (09:08→20:17)
[2017-11-16] MEDS: COLLAGENASE OINT 30 GM TUBE TOPICAL SCH (09:08)
[2017-11-16] MEDS: GABAPENTIN 300 MG CAP PO SCH ×3 (09:08→16:52)
[2017-11-16] MEDS: SODIUM CHLORIDE 0.9% FLUSH 10 ML FLUSH IV FLUSH SCH ×2 (09:08→20:17)
[2017-11-16] MEDS: INSULIN ASPART 1,000 UNITS/10 ML VIAL SQ SCH ×3 (09:08→16:52)
[2017-11-16 12:00] VITALS: BP 108/61; PULSE 97; RESP 22; TEMP 99; O2SAT 99
[2017-11-16 16:00] VITALS: BP 109/61; PULSE 91; RESP 22; TEMP 99.4; O2SAT 97
[2017-11-16] MEDS: DAPTOMYCIN IV SCH (16:51)
[2017-11-16] MEDS: SODIUM CHLORIDE 0.9% IV SCH (16:51)
[2017-11-16 18:31] LABS: AST (GOT) 30 U/L (15-37); BICARBONATE 24.8 MEQ/L (21.0-32.0); BLOOD UREA NITROGEN 24 MG/DL (7-18); CALCIUM 8.3 MG/DL (8.5-10.1); CHLORIDE 100 MEQ/L (98-107); CREATININE 1.08 MG/DL (0.60-1.30); GLOMERULAR FILTRATION RATE 70 ML/MIN (>89); GLUCOSE,RANDOM 137 MG/DL (74-106); SODIUM (NA) 136 MEQ/L (136-145)
[2017-11-16 18:32] LABS: ALT (GPT) 32 U/L (12-78)
[2017-11-16 18:35] LABS: ALKALINE PHOSPHATASE 104 U/L (45-117); TOTAL BILIRUBIN ADULT 0.3 MG/DL (0.2-1.0); TOTAL PROTEIN 7.4 GM/DL (6.4-8.2)
[2017-11-16 20:00] VITALS: BP 111/64; PULSE 110; RESP 18; TEMP 100.7; O2SAT 92
[2017-11-16] MEDS: ACETAMINOPHEN 500 MG CPLT PO PRN (20:15)
[2017-11-16] MEDS: INSULIN DETEMIR 100 UNITS/ML VIAL SQ SCH (20:16)
[2017-11-17] VITALS: BP 119/74; PULSE 99; RESP 18; TEMP 98.4; O2SAT 95
[2017-11-17] MEDS: oxyCODONE/ACETAMINOPHEN 7.5 MG/325 MG TAB PO PRN ×4 (00:02→18:32)
[2017-11-17 04:00] VITALS: BP 114/78; PULSE 96; RESP 18; TEMP 98.8; O2SAT 97
[2017-11-17] MEDS: MORPHINE SULFATE 2 MG/ML SYRINGE IV PUSH PRN ×6 (04:00→22:10)
[2017-11-17 08:00] VITALS: BP 114/67; PULSE 97; RESP 20; TEMP 98.3; O2SAT 95
[2017-11-17] MEDS: COLLAGENASE OINT 30 GM TUBE TOPICAL SCH (09:00)
[2017-11-17] MEDS: SODIUM CHLORIDE 0.9% FLUSH 10 ML FLUSH IV FLUSH SCH ×2 (09:00→21:04)
--- NOTE | 2017-11-17 09:05 | HHI.PR ---
Subjective Remarks no complains no diarrhea no knee or foot pain Objective Vitals Vital Signs Date Time Temp Pulse Resp B/P (MAP) Pulse Ox O2 Delivery O2 Flow Rate FiO2 11/17/17 04:55 18 11/17/17 04:00 98.8 96 18 114/78 (90) 97 11/17/17 01:46 18 11/17/17 00:00 98.4 99 18 119/74 (89) 95 11/16/17 20:20 Nasal Cannula 2.00 11/16/17 20:00 100.7 110 18 111/64 (80) 92 11/16/17 16:00 99.4 91 22 109/61 (77) 97 11/16/17 12:00 99.0 97 22 108/61 (77) 99 I/O 11/16/17 11/16/17 11/16/17 11/17/17 11/17/17 11/17/17 07:00 15:00 23:00 07:00 15:00 23:00 Intake Total 360 ml 720 ml 480 ml Output Total 280 ml 1600 ml 1500 ml Balance 80 ml -880 ml -1020 ml Intake Oral 360 ml 720 ml 480 ml Output Urine Total 280 ml 1600 ml 1500 ml # Bowel Movements 1 1 0 Result Diagram: 11/16/17 0632 11/16/17 1733 Imaging Last Impressions Lower Extremity Ultrasound 11/11/17 0000 Signed Impressions: Service Date/Time: Saturday, November 11, 2017 09:17 - CONCLUSION: Normal examination. Wm Riley MD Chest X-Ray 11/08/17 0000 Signed Impressions: Service Date/Time: Wednesday, November 08, 2017 10:43 - CONCLUSION: Bibasilar infiltrates. Hector Pierre MD Foot MRI 10/24/17 0000 Signed Impressions: Service Date/Time: Tuesday, October 24, 2017 10:08 - CONCLUSION: 1. Marrow edema and mild marrow enhancement in the proximal fourth metatarsal suspicious for an early osteomyelitis. 2. Complex fluid collection in the lateral foot near the base of the fourth metatarsal, probably an abscess with surrounding cellulitis. 3. Extensive marrow edema in the midfoot as above, probably reactive. Patchy low signal in the navicular and cuboid may indicate some avascular necrosis. 4. Postoperative resection of the fifth toe and fifth metatarsal. Francisco Grider MD Ankle MRI 10/24/17 0000 Signed Impressions: Service Date/Time: Tuesday, October 24, 2017 10:08 - CONCLUSION: 1. No definite evidence for osteomyelitis around the right ankle. Marrow edema however has increased slightly since the prior exam, probably reactive and possibly associated with a developing Charcot arthropathy. Low signal patchy areas within the tarsal navicular are suspicious for developing avascular necrosis. There is edema in the soft tissues of the hindfoot. Trace joint fluid. Francisco Grider MD Foot X-Ray 10/23/17 0000 Signed Impressions: Service Date/Time: October 17:15 - CONCLUSION: 1. 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 Lupillo Webster MD Thoracentesis Ultrasound 10/20/17 0600 Signed Impressions: Service Date/Time: Friday, October 20, 2017 13:03 - CONCLUSION: Uncomplicated ultrasound guided thoracentesis. Smooth Saucedo MD Chest Ultrasound 10/17/17 0000 Signed Impressions: Service Date/Time: Tuesday, October 17, 2017 20:24 - CONCLUSION: A moderate to large right pleural effusion is confirmed sonographically and marked for thoracentesis. Hector Pierre MD Chest CT 10/16/17 0000 Signed Impressions: Service Date/Time: October 20:14 - CONCLUSION: Moderate-sized bilateral pleural effusions with adjacent compressive atelectasis and/or pneumonia. Scattered increased interstitial infiltrates within the perihilar regions and upper lobes bilaterally raising the possibility of pulmonary vascular congestion. Cardiomegaly and coronary artery calcifications are noted. Mild pretracheal and AP window mediastinal lymphadenopathy which is nonspecific. Degenerative changes and mild scoliosis of the thoracic spine. Hector Pierer MD Aspiration 10/16/17 0000 Signed Impressions: Service Date/Time: October 15:48 - CONCLUSION: Uncomplicated aspiration as above. Chetan Escobedo MD Abdomen/Pelvis CT 10/16/17 0000 Signed Impressions: Service Date/Time: October 20:14 - CONCLUSION: 1. Moderate-sized bilateral pleural effusions with adjacent consolidations consistent with atelectasis and/or pneumonia. 2. Tiny calcified nonobstructing bilateral renal calculi. 3. Mild hepatosplenomegaly. 4. Uncomplicated colonic diverticulosis. 5. Minimal free fluid within the pelvis. 6. Streakiness and fluid within the bilateral retroperitoneum inferior to the kidneys and extending into the presacral region. 7. Degenerative changes and scoliosis of the thoracolumbar spine. Hector Pierre MD Knee X-Ray 10/15/17 0000 Signed Impressions: Service Date/Time: Sunday, October 15, 2017 15:26 - CONCLUSION: Large joint effusion otherwise negative. Tu Lim MD FACR Carotid Artery Ultrasound 10/13/17 0000 Signed Impressions: Service Date/Time: Friday, October 13, 2017 16:12 - CONCLUSION: No evidence of flow-limiting carotid stenosis. Wm Riley MD Aorta w/Runoff CTA 10/13/17 0000 Signed Impressions: Service Date/Time: Friday, October 13, 2017 22:41 - CONCLUSION: 1. No aortic occlusive disease. 2. No significant iliac inflow stenosis. 3. No significant outflow stenosis. 4. Diffuse bilateral runoff disease with heavily calcified tibial arteries and significant venous contamination precluding patency evaluation beyond the very proximal calf. 5. Small to moderate bilateral pleural effusions with associated airspace disease at the lung bases, presumably atelectasis. 6. Trace free fluid in the deep pelvis. 7. Ancillary findings include hepatic steatosis, nonobstructing punctate calyceal calculus in the inferior pole of the left kidney and small suprapatellar right joint effusion. Lupillo Webster MD Objective Remarks awake and alert, oriented x 3. good sats, comfortable, anicteric no nuchal rigidity lungs- no rales , no wheezes, good air entry regular rhythm abdomen- soft, nontender, good bowel sounds extremities- right knee with effusion-- small effusion- suprapatellar--improving, no erythema, better range of motion right foot sutures in place- post op surgical wound- edges clean, some necrotic skin on heel and plantar aspect of the foot, dry no calf tenderness or swelling Procedures 10/08/17 Right foot and ankle incision drainage, 5th metatarsal resection, 5th digit amputation 10/25/17 Incision and drainage Right foot/ankle abscess with bone biopsy right 4th metatarsal base; wound vac placement 11/07/17 EGD showing gastritis, esophagitis and hiatal hernia, Colonoscopy showing diverticulosis, internal and external hemorrhoids A/P Problem List: (1) Osteomyelitis of foot ICD Code: M86.9 - Osteomyelitis, unspecified (2) Leukocytosis ICD Code: D72.829 - Elevated white blood cell count, unspecified (3) Dehydration with hyponatremia ICD Code: E87.1 - Hypo-osmolality and hyponatremia (4) Acute kidney injury ICD Code: N17.9 - Acute kidney failure, unspecified (5) Sepsis ICD Code: A41.9 - Sepsis, unspecified organism Status: Acute (6) Diabetic foot ulcer ICD Code: E11.621 - Type 2 diabetes mellitus with foot ulcer; L97.509 - Non- pressure chronic ulcer of other part of unspecified foot with unspecified severity Status: Acute (7) Acute renal failure superimposed on stage 3 chronic kidney disease ICD Code: N17.9 - Acute kidney failure, unspecified; N18.3 - Chronic kidney disease, stage 3 (moderate) (8) Bacteremia due to Gram-positive bacteria ICD Code: R78.81 - Bacteremia (9) Postoperative anemia ICD Code: D64.9 - Anemia, unspecified Assessment and Plan This is a 57-year-old male who presented with sepsis S. aureus Sepsis-- Secondary to diabetic foot infection, bacteremia, right foot osteomyelitis: Right foot osteomyelitis:S /P irrigation/debridement with wound vac placement 06/04. VAC removed 11/13. Status post incision and drainage, fifth metatarsal resection, fifth digit amputation on 10/08/17. Podiatry is recommending IV antibiotics on discharge. Final antibiotic recommendations per infectious disease. Continue wound care. S on po pain meds -Rocephin discontinued on 11/02/2017 secondary to possible drug fever. -currently on daptomycin and Levaquin - ID ff - occasional low grade fever- clinically looks good -WBC up to 15,000. CK normal -d/w ID- re: PICC- no PICC for now Right heel pressure ulcer - dry - off weight bearing - appreciate Podiatry recommendations Right knee effusion- -improved- continue to monitor - may need another therapeutic aspiration if continue to increase or worsens - Appreciate orthopedic surgery recommendations. So far cultures are negative. Bilateral pleural effusion:-improved clinically Elevated BNP- clinically appears comfortable r/io underlying CHF- ? from high out failure from anemia - pulmonary - stable-respiratory [place]- no SOB- up and ambulating -Appreciate pulmonology recommendations. Status post right-sided thoracentesis. Cytology is negative for malignant cells. -2D echo- EF 55# - S/P Lasix 20 mg IV 11/05 - Lasix 20 mg po daily Peripheral vascular disease: -Appreciate vascular surgery recommendations. Per vascular surgery, no surgical intervention is planned. Postoperative anemia: H and H stable S/P EGD/colonoscopy- gastritis, hemorrhoids - PPI Diabetes mellitus type 2: - good readings -Continue Levemir. Monitor Accu-Cheks and cover with sliding scale insulin. Continue preprandial insulin as well. Acute kidney injury superimposed on chronic kidney disease stage III- good urine out[ut -Creatinine continues to improve. Stage one pressure ulcer. -Patient needs turning every 2 hours. PT working with patient. 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
[2017-11-17] MEDS: INSULIN ASPART 1,000 UNITS/10 ML VIAL SQ SCH ×3 (09:31→17:41)
[2017-11-17] MEDS: INSULIN ASPART SUPPLEMENTAL SCALE SQ SCH ×4 (09:31→21:04)
[2017-11-17] MEDS: LACTOBACILLUS ACIDOPHILUS TAB PO SCH ×2 (09:32→21:04)
[2017-11-17] MEDS: FUROSEMIDE 20 MG TAB PO SCH (09:32)
[2017-11-17] MEDS: PANTOPRAZOLE SOD 40 MG DELAYED RELEASE TAB PO SCH (09:32)
[2017-11-17] MEDS: LEVOFLOXACIN 750 MG TAB PO SCH (09:32)
[2017-11-17] MEDS: GABAPENTIN 300 MG CAP PO SCH ×3 (09:33→17:40)
[2017-11-17 12:00] VITALS: BP 111/73; PULSE 98; RESP 20; TEMP 99; O2SAT 98
--- NOTE | 2017-11-17 13:35 | HHI.IDPN ---
Subjective Subjective Remarks ID COVERAGE Mr. Braxton is a 57-year-old male with past medical history significant for diabetes type 2, prior diabetic foot ulcer treated in October 2016 thereafter was hospitalized from May 08, 2017 to May 29, 2017 due to foot ulcer. During that hospitalization patient underwent surgical debridement with wound VAC placement. Patient reports that he was seen by Dr. Pritchard during that admission. Patient reports that he was discharged on IV ceftriaxone using a PICC line. Patient had home health care visits him and continue to receive wound VAC changes at home. He also was subsequently seen at wound care clinic for ongoing wound care as well as [facility] for his primary care needs. Patient reports that his medications were recently adjusted and a new insulin was introduced. Patient reports that he was diagnosed with a possible staph or strep infection and has been on oral Bactrim approximately 2 weeks prior to admission. Due to worsening foot infection as well as possible reaction to the new insulin patient presented to the emergency department [facility]. Patient reports that he was having fevers, chills, loss of appetite and diarrhea for the past 2 days associated with frequent urination. Patient denies any dysuria. He reports dizziness and reported history of falls 3 days ago while on the toilet. Patient's reports that she was unaware of this history of fall. He denies any head injury. Patient reports hitting his right foot and shoulder but that he was able to get off the floor by himself. Patient had a sepsis workup initiated on admission. Wound cultures are positive for strep as well as blood cultures are now positive for gram-positive likely strep. Repeat blood cultures have been ordered. Podiatry is seeing the patient and there is a plan for surgical intervention and possible amputation of the involved digit. Infectious disease is consulted for evaluation and management of right fifth toe osteomyelitis with associated cellulitis, gram-positive bacteremia and sepsis. Notes reviewed Occ spikes of fever but clinically no evidence of new infection or worsening of infection. WBC WNL Moves around in his wheel chair. Denies any diarrhea No rash Antibiotics Current Medications Medications (Trade) Dose Ordered Sig/Anna Route Start Time Stop Time Status Last Admin (NS Flush) 2 ml UNSCH PRN IV FLUSH 10/07/17 16:45 11/14/17 04:41 (NS Flush) 2 ml BID IV FLUSH 10/07/17 21:00 11/16/17 20:17 (Narcan Inj) 0.4 mg UNSCH PRN IV PUSH 10/07/17 16:45 (D50w (Vial) Inj) 50 ml UNSCH PRN IV PUSH 10/08/17 10:30 (Glucagon Inj) 1 mg UNSCH PRN OTHER 10/08/17 10:30 (Lactinex) 1 tab Q12HR PO 10/08/17 21:00 11/17/17 09:32 (NovoLOG INJ) 5 units TIDAC SQ 10/12/17 08:00 11/17/17 09:31 (Levemir Inj) 15 units HS SQ 10/12/17 21:00 11/16/17 20:16 (Restoril) 15 mg HS PRN PO 10/13/17 12:45 10/28/17 21:54 (Tylenol) 500 mg Q4H PRN PO 10/13/17 13:15 11/16/17 20:15 (Santyl Oint) 1 applic DAILY TOPICAL 10/22/17 12:00 11/16/17 09:08 (Neurontin) 600 mg TID PO 10/23/17 18:00 11/17/17 12:30 Daptomycin 640 mg/ Sodium Chloride 100 ml @ 200 mls/hr Q24H IV 10/31/17 16:00 12/08/17 15:59 11/16/17 16:51 (Levaquin) 750 mg DAILY PO 11/02/17 16:00 11/17/17 09:32 (Morphine Inj) 1 mg Q4H PRN IV PUSH 11/04/17 08:30 11/17/17 09:37 (Lasix) 20 mg DAILY PO 11/06/17 09:00 11/17/17 09:32 (Protonix) 40 mg DAILY PO 11/09/17 09:00 11/17/17 09:32 (NovoLOG SUPPLEMENTAL SCALE) 1 ACHS SLIDING SCALE SQ 11/08/17 17:00 11/17/17 09:31 (Percocet 5-325 Mg) 1 tab Q6H PRN PO 11/12/17 11:15 11/14/17 15:28 (Percocet 7.5-325 Mg) 1 tab Q6H PRN PO 11/12/17 11:15 11/17/17 12:29 (Morphine Inj) 1 mg BID PRN IV PUSH 11/14/17 08:45 11/15/17 13:31 Lines Line sites with no e.o infection Past Medical History Past Medical History DM II Right foot ulcer with possible osteomyelitis in the past. Has received IV antibiotics long-term using a PICC line in the past. Renal stones Past Surgical History Right foot debridement of wound removal of kidney stones Tonsillitis Allergies: Coded Allergies: No Known Allergies (Unverified Adverse Reaction, Unknown, 09/15/17) Uncoded Allergies: mozambican dressing (Allergy, Severe, Anaphylaxis, 10/07/17) Objective . Vital Signs Date Time Temp Pulse Resp B/P (MAP) Pulse Ox O2 Delivery O2 Flow Rate FiO2 11/17/17 08:00 98.3 97 20 114/67 (83) 95 11/17/17 04:55 18 11/17/17 04:00 98.8 96 18 114/78 (90) 97 11/17/17 01:46 18 11/17/17 00:00 98.4 99 18 119/74 (89) 95 11/16/17 20:20 Nasal Cannula 2.00 11/16/17 20:00 100.7 110 18 111/64 (80) 92 11/16/17 16:00 99.4 91 22 109/61 (77) 97 11/17/17 11/17/17 11/18/17 15:00 23:00 07:00 Output Total 300 ml Balance -300 ml Output Urine Total 300 ml . Laboratory Tests Test 11/16/17 06:32 White Blood Count 15.0 TH/MM3 Red Blood Count 3.37 MIL/MM3 Hemoglobin 8.8 GM/DL Hematocrit 26.6 % Mean Corpuscular Volume 78.8 FL Mean Corpuscular Hemoglobin 26.0 PG Mean Corpuscular Hemoglobin Concent 33.0 % Red Cell Distribution Width 16.3 % Platelet Count 362 TH/MM3 Mean Platelet Volume 8.5 FL Laboratory Tests Test 11/16/17 17:33 Blood Urea Nitrogen 24 MG/DL Creatinine 1.08 MG/DL Random Glucose 137 MG/DL Total Protein 7.4 GM/DL Albumin 2.0 GM/DL Calcium Level 8.3 MG/DL Alkaline Phosphatase 104 U/L Aspartate Amino Transf (AST/SGOT) 30 U/L Alanine Aminotransferase (ALT/SGPT) 32 U/L Total Bilirubin 0.3 MG/DL Sodium Level 136 MEQ/L Potassium Level 3.9 MEQ/L Chloride Level 100 MEQ/L Carbon Dioxide Level 24.8 MEQ/L Anion Gap 11 MEQ/L Estimat Glomerular Filtration Rate 70 ML/MIN Total Creatine Kinase 138 U/L Imaging Chest X-Ray 10/30/17 0000 Signed Impressions: Service Date/Time: October 13:55 - CONCLUSION: 1. Consolidation of the left lower lobe. This would be concerning for a pneumonia. 2. Focal area of infiltrate seen in the left perihilar region. Raghavendra Lim MD Foot X-Ray 10/23/17 0000 Signed Impressions: Service Date/Time: October 17:15 - CONCLUSION: 1. 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 Lupillo Webster MD Chest X-Ray 10/22/17 0000 Signed Impressions: Service Date/Time: Sunday, October 22, 2017 09:07 - CONCLUSION: 1. Bilateral infiltrates and effusion. The exam has worsen when compared to previous dated 10/20/17. Raghavendra Lim MD Thoracentesis Ultrasound 10/20/17 0600 Signed Impressions: Service Date/Time: Friday, October 20, 2017 13:03 - CONCLUSION: Uncomplicated ultrasound guided thoracentesis. Smooth Saucedo MD Chest Ultrasound 10/17/17 0000 Signed Impressions: Service Date/Time: Tuesday, October 17, 2017 20:24 - CONCLUSION: A moderate to large right pleural effusion is confirmed sonographically and marked for thoracentesis. Hector Pierre MD Chest CT 10/16/17 0000 Signed Impressions: Service Date/Time: October 20:14 - CONCLUSION: Moderate-sized bilateral pleural effusions with adjacent compressive atelectasis and/or pneumonia. Scattered increased interstitial infiltrates within the perihilar regions and upper lobes bilaterally raising the possibility of pulmonary vascular congestion. Cardiomegaly and coronary artery calcifications are noted. Mild pretracheal and AP window mediastinal lymphadenopathy which is nonspecific. Degenerative changes and mild scoliosis of the thoracic spine. Hector Pierre MD Aspiration 10/16/17 0000 Signed Impressions: Service Date/Time: October 15:48 - CONCLUSION: Uncomplicated aspiration as above. Chetan Escobedo MD Abdomen/Pelvis CT 10/16/17 0000 Signed Impressions: Service Date/Time: October 20:14 - CONCLUSION: 1. Moderate-sized bilateral pleural effusions with adjacent consolidations consistent with atelectasis and/or pneumonia. 2. Tiny calcified nonobstructing bilateral renal calculi. 3. Mild hepatosplenomegaly. 4. Uncomplicated colonic diverticulosis. 5. Minimal free fluid within the pelvis. 6. Streakiness and fluid within the bilateral retroperitoneum inferior to the kidneys and extending into the presacral region. 7. Degenerative changes and scoliosis of the thoracolumbar spine. Hector Pierre MD Knee X-Ray 10/15/17 0000 Signed Impressions: Service Date/Time: Sunday, October 15, 2017 15:26 - CONCLUSION: Large joint effusion otherwise negative. Tu Lim MD FACR Carotid Artery Ultrasound 10/13/17 0000 Signed Impressions: Service Date/Time: Friday, October 13, 2017 16:12 - CONCLUSION: No evidence of flow-limiting carotid stenosis. Wm Riley MD Aorta w/Runoff CTA 10/13/17 0000 Signed Impressions: Service Date/Time: Friday, October 13, 2017 22:41 - CONCLUSION: 1. No aortic occlusive disease. 2. No significant iliac inflow stenosis. 3. No significant outflow stenosis. 4. Diffuse bilateral runoff disease with heavily calcified tibial arteries and significant venous contamination precluding patency evaluation beyond the very proximal calf. 5. Small to moderate bilateral pleural effusions with associated airspace disease at the lung bases, presumably atelectasis. 6. Trace free fluid in the deep pelvis. 7. Ancillary findings include hepatic steatosis, nonobstructing punctate calyceal calculus in the inferior pole of the left kidney and small suprapatellar right joint effusion. Lupillo Webster MD Foot MRI 10/12/17 0000 Signed Impressions: Service Date/Time: Thursday, October 12, 2017 08:31 - CONCLUSION: 1. No areas of suspected osteomyelitis. 2. Superficial soft tissue swelling over the third and fourth metatarsals. There is also some edema within the plantar musculature. Wm Dupree MD Ankle MRI 10/11/17 0000 Signed Impressions: Service Date/Time: Wednesday, October 11, 2017 09:41 - CONCLUSION: 1. No definite areas of osteomyelitis. There is some edema within the lateral cuboid adjacent to the suspected surgical defect which is likely reactive. T1 signal is maintained. 2. Multiple areas of focal edema within the midfoot mainly related to the subarticular regions likely related to underlying arthritic change. 3. The patient appears to be status post resection of the fifth metatarsal with post surgical change at the lateral hind and midfoot and a small focus of air seen adjacent to the calcaneus. Wm Dupree MD Physical Exam GENERAL: awake and alert, NAD SKIN: Cool and dry. No generalized rash HEAD: Atraumatic. Normocephalic. No temporal or scalp tenderness. EYES: Pupils equal round and reactive. EOM full and intact. No scleral icterus. No injection or drainage. ENT: Moist mucosa, no lesions, no oral thrush NECK: Trachea midline.Supple, nontender, no meningeal signs. CARDIOVASCULAR: Heart sounds audible. RESPIRATORY: basilar crackles. Breath sounds decreased bilateral bases. GASTROINTESTINAL: Abdomen soft, non-tender, nondistended. MUSCULOSKELETAL: Right foot in dressing. Left foot in dressing. NEUROLOGICAL: Awake and alert. Nonfocal exam Psych cooperative IV line sites with no evidence of infection. Assessment & Plan Remarks Sepsis present on admission Strep bacteremia secondary to right foot osteomyelitis and cellulitis Staph MSSA bacteremia high grade. Strep not AB,D and Staph infection Right foot fifth MPJ osteomyelitis Right foot cellulitis Pneumonia with bilateral pleural effusions ? HCAP vs septic emboli. Right knee septic arthritis. Diabetes type 2 uncontrolled Acute renal failure: Sepsis, prerenal: improving Fevers, not as high - non-localizing - ?drug fever Recommendations: Continue Cubicin (stop date: 12/08/2017 in chart) DC Levaquin. CBC with diff, CMP, CRP and Serum CK every Friday while on Cubicin. Monitor temps Monitor progress dw ALICIA and : patient is homeless (needs wound care and IV antibiotics. Social issues affecting safe dc planning) Will follow prn. Please call back sooner if any change in clinical condition or questions. Chuyita Quinteros MD Nov 17, 2017 13:35
[2017-11-17 16:00] VITALS: BP 123/65; PULSE 103; RESP 20; TEMP 98.3; O2SAT 100
[2017-11-17] MEDS: DAPTOMYCIN IV SCH (17:41)
[2017-11-17] MEDS: SODIUM CHLORIDE 0.9% IV SCH (17:41)
[2017-11-17 20:00] VITALS: BP 110/66; PULSE 96; RESP 22; TEMP 99.5; O2SAT 96
[2017-11-17] MEDS: INSULIN DETEMIR 100 UNITS/ML VIAL SQ SCH (21:04)
[2017-11-18] VITALS (8 sets, daily range): BP systolic 112–155; BP diastolic 56–90; PULSE 96–113; RESP 20–22; TEMP 97.7–102; O2SAT 93–98
[2017-11-18] MEDS: oxyCODONE/ACETAMINOPHEN 7.5 MG/325 MG TAB PO PRN ×4 (01:43→20:39)
[2017-11-18] MEDS: MORPHINE SULFATE 2 MG/ML SYRINGE IV PUSH PRN ×4 (04:23→23:55)
[2017-11-18] MEDS: INSULIN ASPART SUPPLEMENTAL SCALE SQ SCH ×4 (07:38→20:47)
[2017-11-18] MEDS: PANTOPRAZOLE SOD 40 MG DELAYED RELEASE TAB PO SCH (08:35)
[2017-11-18] MEDS: FUROSEMIDE 20 MG TAB PO SCH (08:35)
[2017-11-18] MEDS: LACTOBACILLUS ACIDOPHILUS TAB PO SCH ×2 (08:35→20:39)
[2017-11-18] MEDS: GABAPENTIN 300 MG CAP PO SCH ×3 (08:35→20:38)
[2017-11-18] MEDS: SODIUM CHLORIDE 0.9% FLUSH 10 ML FLUSH IV FLUSH SCH ×2 (08:36→20:40)
[2017-11-18] MEDS: COLLAGENASE OINT 30 GM TUBE TOPICAL SCH (08:37)
[2017-11-18] MEDS: INSULIN ASPART 1,000 UNITS/10 ML VIAL SQ SCH ×3 (10:15→17:00)
[2017-11-18] MEDS: SODIUM CHLORIDE 0.9% IV SCH (17:05)
[2017-11-18] MEDS: DAPTOMYCIN IV SCH (17:05)
[2017-11-18] MEDS: INSULIN DETEMIR 100 UNITS/ML VIAL SQ SCH (20:47)
[2017-11-19] VITALS: BP 110/55; PULSE 97; RESP 18; TEMP 97.8; O2SAT 96
[2017-11-19 04:00] VITALS: BP 124/64; PULSE 98; RESP 18; TEMP 99.2; O2SAT 96
[2017-11-19] MEDS: INSULIN ASPART SUPPLEMENTAL SCALE SQ SCH ×4 (07:53→20:23)
[2017-11-19] MEDS: INSULIN ASPART 1,000 UNITS/10 ML VIAL SQ SCH ×3 (07:53→17:16)
[2017-11-19 08:00] VITALS: BP 116/66; PULSE 95; RESP 15; TEMP 98.2; O2SAT 96
[2017-11-19] MEDS: GABAPENTIN 300 MG CAP PO SCH ×3 (08:00→17:14)
[2017-11-19] MEDS: PANTOPRAZOLE SOD 40 MG DELAYED RELEASE TAB PO SCH (08:00)
[2017-11-19] MEDS: oxyCODONE/ACETAMINOPHEN 5 MG/325 MG TAB PO PRN ×2 (08:00→15:44)
[2017-11-19] MEDS: FUROSEMIDE 20 MG TAB PO SCH (08:00)
[2017-11-19] MEDS: LACTOBACILLUS ACIDOPHILUS TAB PO SCH ×2 (08:00→20:23)
[2017-11-19] MEDS: SODIUM CHLORIDE 0.9% FLUSH 10 ML FLUSH IV FLUSH SCH ×2 (08:01→20:21)
[2017-11-19] MEDS: COLLAGENASE OINT 30 GM TUBE TOPICAL SCH (08:01)
--- NOTE | 2017-11-19 09:57 | HHI.PR ---
Subjective Remarks patient awake and alert complains of abdominal discomfort- but no nausea or vomiting, no diarrhea- states good BM- good po no cough, no urinary symptoms sopike 102 last evening- no complains- clinically looks good, no complains of dysuria or diarrhea Objective Vitals Vital Signs Date Time Temp Pulse Resp B/P (MAP) Pulse Ox O2 Delivery O2 Flow Rate FiO2 11/19/17 08:00 98.2 95 15 116/66 (83) 96 11/19/17 07:55 Room Air 2.00 11/19/17 04:00 99.2 98 18 124/64 (84) 96 11/19/17 00:00 Room Air 11/19/17 00:00 97.8 97 18 110/55 (73) 96 11/18/17 20:00 102.0 113 20 112/56 (74) 93 11/18/17 20:00 Room Air 11/18/17 18:50 98.9 100 20 155/90 (111) 94 11/18/17 16:00 98.4 101 20 119/57 (77) 95 11/18/17 12:00 97.7 103 20 128/69 (88) 98 I/O 11/18/17 11/18/17 11/18/17 11/19/17 11/19/17 11/19/17 07:00 15:00 23:00 07:00 15:00 23:00 Intake Total 480 ml 100 ml Output Total 600 ml 300 ml 900 ml Balance -600 ml 180 ml 100 ml -900 ml Intake Oral 480 ml IV Total 100 ml Output Urine Total 600 ml 300 ml 900 ml # Bowel Movements 0 1 1 Result Diagram: 11/16/17 0632 11/16/17 1733 Imaging Last Impressions Lower Extremity Ultrasound 11/11/17 0000 Signed Impressions: Service Date/Time: Saturday, November 11, 2017 09:17 - CONCLUSION: Normal examination. Wm Riley MD Chest X-Ray 11/08/17 0000 Signed Impressions: Service Date/Time: Wednesday, November 08, 2017 10:43 - CONCLUSION: Bibasilar infiltrates. Hector Pierre MD Foot MRI 10/24/17 0000 Signed Impressions: Service Date/Time: Tuesday, October 24, 2017 10:08 - CONCLUSION: 1. Marrow edema and mild marrow enhancement in the proximal fourth metatarsal suspicious for an early osteomyelitis. 2. Complex fluid collection in the lateral foot near the base of the fourth metatarsal, probably an abscess with surrounding cellulitis. 3. Extensive marrow edema in the midfoot as above, probably reactive. Patchy low signal in the navicular and cuboid may indicate some avascular necrosis. 4. Postoperative resection of the fifth toe and fifth metatarsal. Francisco Grider MD Ankle MRI 10/24/17 0000 Signed Impressions: Service Date/Time: Tuesday, October 24, 2017 10:08 - CONCLUSION: 1. No definite evidence for osteomyelitis around the right ankle. Marrow edema however has increased slightly since the prior exam, probably reactive and possibly associated with a developing Charcot arthropathy. Low signal patchy areas within the tarsal navicular are suspicious for developing avascular necrosis. There is edema in the soft tissues of the hindfoot. Trace joint fluid. Francisco Grider MD Foot X-Ray 10/23/17 0000 Signed Impressions: Service Date/Time: October 17:15 - CONCLUSION: 1. 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 Lupillo Webster MD Thoracentesis Ultrasound 10/20/17 0600 Signed Impressions: Service Date/Time: Friday, October 20, 2017 13:03 - CONCLUSION: Uncomplicated ultrasound guided thoracentesis. Smooth Saucedo MD Chest Ultrasound 10/17/17 0000 Signed Impressions: Service Date/Time: Tuesday, October 17, 2017 20:24 - CONCLUSION: A moderate to large right pleural effusion is confirmed sonographically and marked for thoracentesis. Hector Pierre MD Chest CT 10/16/17 0000 Signed Impressions: Service Date/Time: October 20:14 - CONCLUSION: Moderate-sized bilateral pleural effusions with adjacent compressive atelectasis and/or pneumonia. Scattered increased interstitial infiltrates within the perihilar regions and upper lobes bilaterally raising the possibility of pulmonary vascular congestion. Cardiomegaly and coronary artery calcifications are noted. Mild pretracheal and AP window mediastinal lymphadenopathy which is nonspecific. Degenerative changes and mild scoliosis of the thoracic spine. Hector Pierre MD Aspiration 10/16/17 0000 Signed Impressions: Service Date/Time: October 15:48 - CONCLUSION: Uncomplicated aspiration as above. Chetan Escobedo MD Abdomen/Pelvis CT 10/16/17 0000 Signed Impressions: Service Date/Time: October 20:14 - CONCLUSION: 1. Moderate-sized bilateral pleural effusions with adjacent consolidations consistent with atelectasis and/or pneumonia. 2. Tiny calcified nonobstructing bilateral renal calculi. 3. Mild hepatosplenomegaly. 4. Uncomplicated colonic diverticulosis. 5. Minimal free fluid within the pelvis. 6. Streakiness and fluid within the bilateral retroperitoneum inferior to the kidneys and extending into the presacral region. 7. Degenerative changes and scoliosis of the thoracolumbar spine. Hector Pierre MD Knee X-Ray 10/15/17 0000 Signed Impressions: Service Date/Time: Sunday, October 15, 2017 15:26 - CONCLUSION: Large joint effusion otherwise negative. Tu Lim MD FACR Carotid Artery Ultrasound 10/13/17 0000 Signed Impressions: Service Date/Time: Friday, October 13, 2017 16:12 - CONCLUSION: No evidence of flow-limiting carotid stenosis. Wm Riley MD Aorta w/Runoff CTA 10/13/17 0000 Signed Impressions: Service Date/Time: Friday, October 13, 2017 22:41 - CONCLUSION: 1. No aortic occlusive disease. 2. No significant iliac inflow stenosis. 3. No significant outflow stenosis. 4. Diffuse bilateral runoff disease with heavily calcified tibial arteries and significant venous contamination precluding patency evaluation beyond the very proximal calf. 5. Small to moderate bilateral pleural effusions with associated airspace disease at the lung bases, presumably atelectasis. 6. Trace free fluid in the deep pelvis. 7. Ancillary findings include hepatic steatosis, nonobstructing punctate calyceal calculus in the inferior pole of the left kidney and small suprapatellar right joint effusion. Lupillo Webster MD Objective Remarks awake and alert, oriented x 3. good sats, comfortable, anicteric no nuchal rigidity lungs- no rales , no wheezes, good air entry regular rhythm abdomen- soft, nontender, good bowel sounds, no guarding or rigidity extremities- right knee with effusion-- small effusion- suprapatellar--improved , no erythema, better range of motion right foot sutures in place- post op surgical wound- edges clean, some necrotic skin on heel and plantar aspect of the foot, dry no calf tenderness or swelling Procedures 10/08/17 Right foot and ankle incision drainage, 5th metatarsal resection, 5th digit amputation 10/25/17 Incision and drainage Right foot/ankle abscess with bone biopsy right 4th metatarsal base; wound vac placement 11/07/17 EGD showing gastritis, esophagitis and hiatal hernia, Colonoscopy showing diverticulosis, internal and external hemorrhoids A/P Problem List: (1) Osteomyelitis of foot ICD Code: M86.9 - Osteomyelitis, unspecified (2) Leukocytosis ICD Code: D72.829 - Elevated white blood cell count, unspecified (3) Dehydration with hyponatremia ICD Code: E87.1 - Hypo-osmolality and hyponatremia (4) Acute kidney injury ICD Code: N17.9 - Acute kidney failure, unspecified (5) Sepsis ICD Code: A41.9 - Sepsis, unspecified organism Status: Acute (6) Diabetic foot ulcer ICD Code: E11.621 - Type 2 diabetes mellitus with foot ulcer; L97.509 - Non- pressure chronic ulcer of other part of unspecified foot with unspecified severity Status: Acute (7) Acute renal failure superimposed on stage 3 chronic kidney disease ICD Code: N17.9 - Acute kidney failure, unspecified; N18.3 - Chronic kidney disease, stage 3 (moderate) (8) Bacteremia due to Gram-positive bacteria ICD Code: R78.81 - Bacteremia (9) Postoperative anemia ICD Code: D64.9 - Anemia, unspecified Assessment and Plan This is a 57-year-old male who presented with sepsis S. aureus Sepsis-- Secondary to diabetic foot infection, bacteremia, right foot osteomyelitis: Right foot osteomyelitis:S /P irrigation/debridement with wound vac placement 06/04. VAC removed 11/13. Status post incision and drainage, fifth metatarsal resection, fifth digit amputation on 10/08/17. Fever- occasional spikes- clinically looks good - Podiatry ff on po pain meds -Rocephin discontinued on 11/02/2017 secondary to possible drug fever. -currently on daptomycin and Levaquin - ID ff -d/w ID 11/18 - re: PICC- no PICC for now Right heel pressure ulcer - dry - off weight bearing - appreciate Podiatry recommendations Right knee effusion- -improved- continue to monitor - may need another therapeutic aspiration if continue to increase or worsens - Appreciate orthopedic surgery recommendations. cultures are negative. Bilateral pleural effusion:-improved clinically Elevated BNP- clinically appears comfortable r/io underlying CHF- ? from high out failure from anemia - pulmonary - stable-respiratory [place]- no SOB- up and ambulating -Appreciate pulmonology recommendations. Status post right-sided thoracentesis. Cytology is negative for malignant cells. -2D echo- EF 55# - S/P Lasix 20 mg IV 11/05 - Lasix 20 mg po daily Peripheral vascular disease: -Appreciate vascular surgery recommendations. Per vascular surgery, no surgical intervention is planned. Postoperative anemia: H and H stable S/P EGD/colonoscopy- gastritis, hemorrhoids - PPI Diabetes mellitus type 2: - good readings -Continue Levemir. Monitor Accu-Cheks and cover with sliding scale insulin. Continue preprandial insulin as well. Acute kidney injury superimposed on chronic kidney disease stage III- good urine out[ut -Creatinine continues to improve. Stage one pressure ulcer. -Patient needs turning every 2 hours. PT working with patient. Hypokalemia-resolved DVT prophylaxis: Heparin- hold with anemia patient up and ambulating Discharge Planning d/w patient- may need PICC for halfway IV antibiotic administration- - now agrees to PICC- hold for now d/w ID states homeless - lives in the [facility] Problem Qualifiers (1) Sepsis: Qualified Codes: A41.9 - Sepsis, unspecified organism (2) Diabetic foot ulcer: Qualified Codes: E10.621 - Type 1 diabetes mellitus with foot ulcer; L97.419 - Non-pressure chronic ulcer of right heel and midfoot with unspecified severity Noni Huerta MD Nov 19, 2017 09:57
[2017-11-19 12:00] VITALS: BP 116/71; PULSE 91; RESP 14; TEMP 98.8; O2SAT 100
[2017-11-19] MEDS: MORPHINE SULFATE 2 MG/ML SYRINGE IV PUSH PRN ×3 (12:22→20:22)
[2017-11-19] MEDS: SODIUM CHLORIDE 0.9% IV SCH (15:43)
[2017-11-19] MEDS: ACETAMINOPHEN 500 MG CPLT PO PRN (15:43)
[2017-11-19] MEDS: DAPTOMYCIN IV SCH (15:43)
[2017-11-19 16:00] VITALS: BP 127/78; PULSE 112; RESP 14; TEMP 101.3; O2SAT 98
[2017-11-19 19:51] VITALS: BP 132/71; PULSE 95; RESP 16; TEMP 99.4; O2SAT 99
[2017-11-19] MEDS: INSULIN DETEMIR 100 UNITS/ML VIAL SQ SCH (22:07)
[2017-11-19] MEDS: oxyCODONE/ACETAMINOPHEN 7.5 MG/325 MG TAB PO PRN (22:07)
[2017-11-20] VITALS: BP 117/60; PULSE 94; RESP 18; TEMP 98.9; O2SAT 95
[2017-11-20] MEDS: MORPHINE SULFATE 2 MG/ML SYRINGE IV PUSH PRN ×5 (00:23→21:00)
[2017-11-20] MEDS: SODIUM CHLORIDE 0.9% FLUSH 10 ML FLUSH IV FLUSH PRN ×2 (00:24→06:46)
[2017-11-20] MEDS: oxyCODONE/ACETAMINOPHEN 7.5 MG/325 MG TAB PO PRN ×3 (04:37→18:05)
[2017-11-20 04:38] VITALS: BP 121/67; PULSE 98; RESP 16; TEMP 98.9; O2SAT 95
[2017-11-20 08:00] VITALS: BP 131/74; PULSE 98; RESP 16; TEMP 98.6; O2SAT 97
[2017-11-20] MEDS: INSULIN ASPART 1,000 UNITS/10 ML VIAL SQ SCH ×4 (08:07→18:04)
[2017-11-20] MEDS: INSULIN ASPART SUPPLEMENTAL SCALE SQ SCH ×5 (08:07→20:58)
[2017-11-20] MEDS: LACTOBACILLUS ACIDOPHILUS TAB PO SCH ×2 (08:14→20:58)
[2017-11-20] MEDS: FUROSEMIDE 20 MG TAB PO SCH (08:14)
[2017-11-20] MEDS: PANTOPRAZOLE SOD 40 MG DELAYED RELEASE TAB PO SCH (08:14)
[2017-11-20] MEDS: GABAPENTIN 300 MG CAP PO SCH ×3 (08:14→18:05)
[2017-11-20] MEDS: COLLAGENASE OINT 30 GM TUBE TOPICAL SCH (08:14)
[2017-11-20] MEDS: SODIUM CHLORIDE 0.9% FLUSH 10 ML FLUSH IV FLUSH SCH ×2 (08:15→20:58)
[2017-11-20 12:00] VITALS: BP 128/60; PULSE 92; RESP 16; TEMP 98.4; O2SAT 99
[2017-11-20 16:00] VITALS: BP 109/58; PULSE 102; RESP 16; TEMP 98.6; O2SAT 99
[2017-11-20] MEDS: SODIUM CHLORIDE 0.9% IV SCH (16:03)
[2017-11-20] MEDS: DAPTOMYCIN IV SCH (16:03)
--- NOTE | 2017-11-20 16:39 | HHI.PR ---
Subjective Remarks Resting in bed Patient asked me if am willing to change his diet from renal to regular, when I said no he said "go away " Objective Vitals Vital Signs Date Time Temp Pulse Resp B/P (MAP) Pulse Ox O2 Delivery O2 Flow Rate FiO2 11/20/17 14:30 Nasal Cannula 2.00 11/20/17 09:00 Room Air 11/20/17 08:00 98.6 98 16 131/74 (93) 97 11/20/17 04:38 98.9 98 16 121/67 (85) 95 11/20/17 04:38 Room Air 11/20/17 00:00 98.9 94 18 117/60 (79) 95 11/19/17 19:51 Room Air 11/19/17 19:51 99.4 95 16 132/71 (91) 99 I/O 11/19/17 11/19/17 11/19/17 11/20/17 11/20/17 11/20/17 07:00 15:00 23:00 07:00 15:00 23:00 Intake Total 1020 ml Output Total 900 ml 850 ml 500 ml Balance -900 ml 170 ml -500 ml Intake Oral 920 ml IV Total 100 ml Output Urine Total 900 ml 850 ml 500 ml # Bowel Movements 1 1 Result Diagram: 11/16/17 0632 11/16/17 1733 Objective Remarks GENERAL: This is a well-nourished, well-developed patient, in no apparent distress. NEUROLOGICAL: Awake and alert. Moves all extremity. Normal speech.no focal neurological deficit Procedures 10/08/17 Right foot and ankle incision drainage, 5th metatarsal resection, 5th digit amputation 10/25/17 Incision and drainage Right foot/ankle abscess with bone biopsy right 4th metatarsal base; wound vac placement 11/07/17 EGD showing gastritis, esophagitis and hiatal hernia, Colonoscopy showing diverticulosis, internal and external hemorrhoids A/P Problem List: (1) Osteomyelitis of foot ICD Code: M86.9 - Osteomyelitis, unspecified (2) Leukocytosis ICD Code: D72.829 - Elevated white blood cell count, unspecified (3) Dehydration with hyponatremia ICD Code: E87.1 - Hypo-osmolality and hyponatremia (4) Acute kidney injury ICD Code: N17.9 - Acute kidney failure, unspecified (5) Sepsis ICD Code: A41.9 - Sepsis, unspecified organism Status: Acute (6) Diabetic foot ulcer ICD Code: E11.621 - Type 2 diabetes mellitus with foot ulcer; L97.509 - Non- pressure chronic ulcer of other part of unspecified foot with unspecified severity Status: Acute (7) Acute renal failure superimposed on stage 3 chronic kidney disease ICD Code: N17.9 - Acute kidney failure, unspecified; N18.3 - Chronic kidney disease, stage 3 (moderate) (8) Bacteremia due to Gram-positive bacteria ICD Code: R78.81 - Bacteremia (9) Postoperative anemia ICD Code: D64.9 - Anemia, unspecified Assessment and Plan This is a 57-year-old male who presented with sepsis 11/20: Continue current care patient refused to be examined S. aureus Sepsis-- Secondary to diabetic foot infection, bacteremia, right foot osteomyelitis: Right foot osteomyelitis:S /P irrigation/debridement with wound vac placement 06/04. VAC removed 11/13. Status post incision and drainage, fifth metatarsal resection, fifth digit amputation on 10/08/17. Fever- occasional spikes- clinically looks good - Podiatry ff on po pain meds -Rocephin discontinued on 11/02/2017 secondary to possible drug fever. -currently on daptomycin and Levaquin - ID ff -d/w ID 11/18 - re: PICC- no PICC for now Right heel pressure ulcer - dry - off weight bearing - appreciate Podiatry recommendations Right knee effusion- -improved- continue to monitor - may need another therapeutic aspiration if continue to increase or worsens - Appreciate orthopedic surgery recommendations. cultures are negative. Bilateral pleural effusion:-improved clinically Elevated BNP- clinically appears comfortable r/io underlying CHF- ? from high out failure from anemia - pulmonary - stable-respiratory [place]- no SOB- up and ambulating -Appreciate pulmonology recommendations. Status post right-sided thoracentesis. Cytology is negative for malignant cells. -2D echo- EF 55# - S/P Lasix 20 mg IV 11/05 - Lasix 20 mg po daily Peripheral vascular disease: -Appreciate vascular surgery recommendations. Per vascular surgery, no surgical intervention is planned. Postoperative anemia: H and H stable S/P EGD/colonoscopy- gastritis, hemorrhoids - PPI Diabetes mellitus type 2: - good readings -Continue Levemir. Monitor Accu-Cheks and cover with sliding scale insulin. Continue preprandial insulin as well. Acute kidney injury superimposed on chronic kidney disease stage III- good urine out[ut -Creatinine continues to improve. Stage one pressure ulcer. -Patient needs turning every 2 hours. PT working with patient. Hypokalemia-resolved DVT prophylaxis: Heparin- hold with anemia patient up and ambulating Discharge Planning Homeless, lives in the [facility], and IV antibiotic Problem Qualifiers (1) Sepsis: Qualified Codes: A41.9 - Sepsis, unspecified organism (2) Diabetic foot ulcer: Qualified Codes: E10.621 - Type 1 diabetes mellitus with foot ulcer; L97.419 - Non-pressure chronic ulcer of right heel and midfoot with unspecified severity Paras Roe MD Nov 20, 2017 16:39
[2017-11-20 20:00] VITALS: BP 126/73; PULSE 107; RESP 18; TEMP 99.6; O2SAT 98
[2017-11-20] MEDS: INSULIN DETEMIR 100 UNITS/ML VIAL SQ SCH (20:58)
[2017-11-21] MEDS: oxyCODONE/ACETAMINOPHEN 7.5 MG/325 MG TAB PO PRN ×4 (00:04→20:35)
[2017-11-21] MEDS: MORPHINE SULFATE 2 MG/ML SYRINGE IV PUSH PRN ×4 (03:39→22:39)
[2017-11-21 04:00] VITALS: BP 120/75; PULSE 94; RESP 19; TEMP 98.2; O2SAT 99
[2017-11-21 08:05] VITALS: BP 115/62; PULSE 62; RESP 22; TEMP 99.5; O2SAT 94
[2017-11-21] MEDS: LACTOBACILLUS ACIDOPHILUS TAB PO SCH ×2 (09:29→20:33)
[2017-11-21] MEDS: FUROSEMIDE 20 MG TAB PO SCH (09:29)
[2017-11-21] MEDS: GABAPENTIN 300 MG CAP PO SCH ×3 (09:29→18:31)
[2017-11-21] MEDS: COLLAGENASE OINT 30 GM TUBE TOPICAL SCH (09:30)
[2017-11-21] MEDS: PANTOPRAZOLE SOD 40 MG DELAYED RELEASE TAB PO SCH (09:30)
[2017-11-21] MEDS: SODIUM CHLORIDE 0.9% FLUSH 10 ML FLUSH IV FLUSH SCH ×2 (09:31→20:38)
[2017-11-21] MEDS: INSULIN ASPART 1,000 UNITS/10 ML VIAL SQ SCH ×3 (09:33→18:33)
[2017-11-21] MEDS: INSULIN ASPART SUPPLEMENTAL SCALE SQ SCH ×3 (12:00→20:38)
[2017-11-21 12:04] VITALS: BP 121/70; PULSE 101; RESP 20; TEMP 96.4; O2SAT 96
[2017-11-21 16:00] VITALS: BP 116/68; PULSE 94; RESP 17; TEMP 100.1; O2SAT 98
[2017-11-21] MEDS: SODIUM CHLORIDE 0.9% IV SCH (16:20)
[2017-11-21] MEDS: DAPTOMYCIN IV SCH (16:20)
[2017-11-21] MEDS: ACETAMINOPHEN 500 MG CPLT PO PRN (16:22)
--- NOTE | 2017-11-21 18:05 | PD.POD ---
Subjective Pain score: 3 Remarks Patient was seen walking around the room he is in good spirits he is ready to return to the wound VAC. Past Med/Surg/Social History Past Medical History Endocrine: REPORTS HX OF: Diabetes mellitus Genitourinary: REPORTS HX OF: Other history (Kidney stones ) Past Surgical History Musculoskeletal: REPORTS HX OF: Other musculoskeletal srg (Right foot 5th metatarsal I&D) Social History Smoking Status: Former Smoker Objective Vital Signs Vital Signs Date Time Temp Pulse Resp B/P (MAP) Pulse Ox O2 Delivery O2 Flow Rate FiO2 11/21/17 16:00 100.1 94 17 116/68 (84) 98 11/21/17 12:04 96.4 101 20 121/70 (87) 96 11/21/17 08:05 99.5 62 22 115/62 (79) 94 11/21/17 08:00 Room Air 11/21/17 04:00 Nasal Cannula 2.00 11/21/17 04:00 98.2 94 19 120/75 (90) 99 11/21/17 01:23 17 11/21/17 00:00 Nasal Cannula 2.00 11/20/17 21:00 Nasal Cannula 2.00 11/20/17 20:00 99.6 107 18 126/73 (90) 98 Coded Allergies: No Known Allergies (Unverified Adverse Reaction, Unknown, 09/15/17) Uncoded Allergies: bangladeshi dressing (Allergy, Severe, Anaphylaxis, 10/07/17) Medications and IVs Administered Medications Medications (Trade) Dose Ordered Sig/Anna Route PRN Reason Start Time Stop Time Status Last Admin Dose Admin Sodium Chloride (NS Flush) 2 ml UNSCH PRN IV FLUSH FLUSH AFTER USING IV ACCESS 10/07/17 16:45 11/20/17 06:46 Sodium Chloride (NS Flush) 2 ml BID IV FLUSH 10/07/17 21:00 11/21/17 09:31 Lactobacillus Acidophilus (Lactinex) 1 tab Q12HR PO 10/08/17 21:00 11/21/17 09:29 Insulin Aspart (NovoLOG INJ) 5 units TIDAC SQ 10/12/17 08:00 11/21/17 13:52 Insulin Detemir (Levemir Inj) 15 units HS SQ 10/12/17 21:00 11/20/17 20:58 Temazepam (Restoril) 15 mg HS PRN PO INSOMNIA 10/13/17 12:45 10/28/17 21:54 Acetaminophen (Tylenol) 500 mg Q4H PRN PO Headache, fever 10/13/17 13:15 11/21/17 16:22 Collagenase (Santyl Oint) 1 applic DAILY TOPICAL 10/22/17 12:00 11/21/17 09:30 Gabapentin (Neurontin) 600 mg TID PO 10/23/17 18:00 11/21/17 13:50 Daptomycin 640 mg/ Sodium Chloride 100 ml @ 200 mls/hr Q24H IV 10/31/17 16:00 12/08/17 15:59 11/21/17 16:20 Morphine Sulfate (Morphine Inj) 1 mg Q4H PRN IV PUSH BREAKTHROUGH PAIN 11/04/17 08:30 11/21/17 09:32 Furosemide (Lasix) 20 mg DAILY PO 11/06/17 09:00 11/21/17 09:29 Pantoprazole Sodium (Protonix) 40 mg DAILY PO 11/09/17 09:00 11/21/17 09:30 Insulin Aspart (NovoLOG SUPPLEMENTAL SCALE) 1 ACHS SLIDING SCALE SQ 11/08/17 17:00 11/20/17 12:16 Oxycodone/ Acetaminophen (Percocet 5-325 Mg) 1 tab Q6H PRN PO pain 1-5 11/12/17 11:15 11/19/17 15:44 Oxycodone/ Acetaminophen (Percocet 7.5-325 Mg) 1 tab Q6H PRN PO pain6-10 11/12/17 11:15 11/21/17 13:51 Morphine Sulfate (Morphine Inj) 1 mg BID PRN IV PUSH PRIOR TO DRESSING CHANGE 11/14/17 08:45 11/21/17 15:55 October 27 2017 FINAL DIAGNOSIS: BONE, RIGHT 4TH METATARSAL, BIOPSY: - CHRONIC OSTEOMYELITIS. Exam-Podiatry Remarks Right lower extremity: Posterior heel dry stable eschar. Healed medial incision dorsum foot. Lateral ulcer extending from fourth metatarsal up to just below the fibula. exposed peroneal tendon and base of fourth metatarsal. there is early granulation tissue of the wound periphery greatest depth is approximately 1 cm in greatest width is approximately 2 cm in greatest length approximately 20 cm, minimal redness minimal edema no odor Assessment & Plan A/P Right foot ankle ulcer abscess osteomyelitis, fourth metatarsal osteomyelitis Left foot ulcer resolved abscess Wound VAC reapplied orders have been written for Friday wound care nursing. Long-term prognosis for fourth metatarsal. Uncertain. Possibly attempt biopsy upon completing 8 weeks of IV antibiotics Mitchel Aguayo DPM Nov 21, 2017 18:05
--- NOTE | 2017-11-21 18:39 | HHI.PR ---
Subjective Remarks no acute issues Objective Vitals Vital Signs Date Time Temp Pulse Resp B/P (MAP) Pulse Ox O2 Delivery O2 Flow Rate FiO2 11/21/17 16:00 100.1 94 17 116/68 (84) 98 11/21/17 12:04 96.4 101 20 121/70 (87) 96 11/21/17 08:05 99.5 62 22 115/62 (79) 94 11/21/17 08:00 Room Air 11/21/17 04:00 Nasal Cannula 2.00 11/21/17 04:00 98.2 94 19 120/75 (90) 99 11/21/17 01:23 17 11/21/17 00:00 Nasal Cannula 2.00 11/20/17 21:00 Nasal Cannula 2.00 11/20/17 20:00 99.6 107 18 126/73 (90) 98 I/O 11/20/17 11/20/17 11/20/17 11/21/17 11/21/17 11/21/17 07:00 15:00 23:00 07:00 15:00 23:00 Intake Total 960 ml 420 ml Output Total 500 ml 1200 ml 900 ml Balance -500 ml -240 ml -480 ml Intake Oral 960 ml 420 ml Output Urine Total 500 ml 1200 ml 900 ml # Bowel Movements 1 1 Objective Remarks GENERAL: This is a well-nourished, well-developed patient, in no apparent distress. NEUROLOGICAL: Awake and alert. Moves all extremity. Normal speech.no focal neurological deficit Procedures 10/08/17 Right foot and ankle incision drainage, 5th metatarsal resection, 5th digit amputation 10/25/17 Incision and drainage Right foot/ankle abscess with bone biopsy right 4th metatarsal base; wound vac placement 11/07/17 EGD showing gastritis, esophagitis and hiatal hernia, Colonoscopy showing diverticulosis, internal and external hemorrhoids A/P Problem List: (1) Osteomyelitis of foot ICD Code: M86.9 - Osteomyelitis, unspecified (2) Leukocytosis ICD Code: D72.829 - Elevated white blood cell count, unspecified (3) Dehydration with hyponatremia ICD Code: E87.1 - Hypo-osmolality and hyponatremia (4) Acute kidney injury ICD Code: N17.9 - Acute kidney failure, unspecified (5) Sepsis ICD Code: A41.9 - Sepsis, unspecified organism Status: Acute (6) Diabetic foot ulcer ICD Code: E11.621 - Type 2 diabetes mellitus with foot ulcer; L97.509 - Non- pressure chronic ulcer of other part of unspecified foot with unspecified severity Status: Acute (7) Acute renal failure superimposed on stage 3 chronic kidney disease ICD Code: N17.9 - Acute kidney failure, unspecified; N18.3 - Chronic kidney disease, stage 3 (moderate) (8) Bacteremia due to Gram-positive bacteria ICD Code: R78.81 - Bacteremia (9) Postoperative anemia ICD Code: D64.9 - Anemia, unspecified Assessment and Plan This is a 57-year-old male who presented with sepsis 11/20: Continue current care patient refused to be examined 11/21: continue current care S. aureus Sepsis-- Secondary to diabetic foot infection, bacteremia, right foot osteomyelitis: Right foot osteomyelitis:S /P irrigation/debridement with wound vac placement 06/04. VAC removed 11/13. Status post incision and drainage, fifth metatarsal resection, fifth digit amputation on 10/08/17. Fever- occasional spikes- clinically looks good - Podiatry ff on po pain meds -Rocephin discontinued on 11/02/2017 secondary to possible drug fever. -currently on daptomycin and Levaquin - ID ff -d/w ID 11/18 - re: PICC- no PICC for now Right heel pressure ulcer - dry - off weight bearing - appreciate Podiatry recommendations Right knee effusion- -improved- continue to monitor - may need another therapeutic aspiration if continue to increase or worsens - Appreciate orthopedic surgery recommendations. cultures are negative. Bilateral pleural effusion:-improved clinically Elevated BNP- clinically appears comfortable r/io underlying CHF- ? from high out failure from anemia - pulmonary - stable-respiratory [place]- no SOB- up and ambulating -Appreciate pulmonology recommendations. Status post right-sided thoracentesis. Cytology is negative for malignant cells. -2D echo- EF 55# - S/P Lasix 20 mg IV 11/05 - Lasix 20 mg po daily Peripheral vascular disease: -Appreciate vascular surgery recommendations. Per vascular surgery, no surgical intervention is planned. Postoperative anemia: H and H stable S/P EGD/colonoscopy- gastritis, hemorrhoids - PPI Diabetes mellitus type 2: - good readings -Continue Levemir. Monitor Accu-Cheks and cover with sliding scale insulin. Continue preprandial insulin as well. Acute kidney injury superimposed on chronic kidney disease stage III- good urine out[ut -Creatinine continues to improve. Stage one pressure ulcer. -Patient needs turning every 2 hours. PT working with patient. Hypokalemia-resolved DVT prophylaxis: Heparin- hold with anemia patient up and ambulating Discharge Planning Homeless, lives in the [facility], and IV antibiotic Problem Qualifiers (1) Sepsis: Qualified Codes: A41.9 - Sepsis, unspecified organism (2) Diabetic foot ulcer: Qualified Codes: E10.621 - Type 1 diabetes mellitus with foot ulcer; L97.419 - Non-pressure chronic ulcer of right heel and midfoot with unspecified severity Paras Roe MD Nov 21, 2017 18:39
[2017-11-21 20:00] VITALS: BP 124/73; PULSE 92; RESP 18; TEMP 98.1; O2SAT 97
[2017-11-21] MEDS: INSULIN DETEMIR 100 UNITS/ML VIAL SQ SCH (20:33)
[2017-11-22] VITALS (7 sets, daily range): BP systolic 101–138; BP diastolic 59–82; PULSE 91–107; RESP 18–20; TEMP 98.1–100.6; O2SAT 95–99
[2017-11-22] MEDS: oxyCODONE/ACETAMINOPHEN 7.5 MG/325 MG TAB PO PRN ×4 (03:04→21:48)
[2017-11-22] MEDS: MORPHINE SULFATE 2 MG/ML SYRINGE IV PUSH PRN ×4 (04:55→23:40)
[2017-11-22] MEDS: INSULIN ASPART SUPPLEMENTAL SCALE SQ SCH ×4 (08:00→20:40)
[2017-11-22] MEDS: COLLAGENASE OINT 30 GM TUBE TOPICAL SCH (09:00)
[2017-11-22] MEDS: FUROSEMIDE 20 MG TAB PO SCH (09:04)
[2017-11-22] MEDS: LACTOBACILLUS ACIDOPHILUS TAB PO SCH ×2 (09:04→20:39)
[2017-11-22] MEDS: GABAPENTIN 300 MG CAP PO SCH ×3 (09:04→17:44)
[2017-11-22] MEDS: PANTOPRAZOLE SOD 40 MG DELAYED RELEASE TAB PO SCH (09:04)
[2017-11-22] MEDS: SODIUM CHLORIDE 0.9% FLUSH 10 ML FLUSH IV FLUSH SCH ×2 (09:05→20:40)
[2017-11-22] MEDS: INSULIN ASPART 1,000 UNITS/10 ML VIAL SQ SCH ×3 (09:06→17:43)
--- NOTE | 2017-11-22 12:52 | HHI.PR ---
Subjective Remarks Still in-house on IV antibiotic, not a safe discharge patient is homeless and noncompliant No acute issue overnight Objective Vitals Vital Signs Date Time Temp Pulse Resp B/P (MAP) Pulse Ox O2 Delivery O2 Flow Rate FiO2 11/22/17 08:00 98.3 98 20 124/82 (96) 96 11/22/17 05:39 17 11/22/17 04:22 18 11/22/17 04:00 100.1 107 18 138/82 (100) 95 11/22/17 04:00 Nasal Cannula 2.00 11/22/17 00:00 Nasal Cannula 2.00 11/22/17 00:00 98.8 101 19 133/82 (99) 98 11/21/17 20:40 Nasal Cannula 2.00 11/21/17 20:00 98.1 92 18 124/73 (90) 97 11/21/17 16:00 100.1 94 17 116/68 (84) 98 I/O 11/21/17 11/21/17 11/21/17 11/22/17 11/22/17 11/22/17 07:00 15:00 23:00 07:00 15:00 23:00 Intake Total 420 ml 100 ml 420 ml Output Total 900 ml 950 ml Balance -480 ml 100 ml -530 ml Intake Oral 420 ml 420 ml IV Total 100 ml Output Urine Total 900 ml 950 ml # Bowel Movements 1 2 Objective Remarks GENERAL: This is a well-nourished, well-developed patient, in no apparent distress. NEUROLOGICAL: Awake and alert. Moves all extremity. Normal speech.no focal neurological deficit Procedures 10/08/17 Right foot and ankle incision drainage, 5th metatarsal resection, 5th digit amputation 10/25/17 Incision and drainage Right foot/ankle abscess with bone biopsy right 4th metatarsal base; wound vac placement 11/07/17 EGD showing gastritis, esophagitis and hiatal hernia, Colonoscopy showing diverticulosis, internal and external hemorrhoids A/P Problem List: (1) Osteomyelitis of foot ICD Code: M86.9 - Osteomyelitis, unspecified (2) Leukocytosis ICD Code: D72.829 - Elevated white blood cell count, unspecified (3) Dehydration with hyponatremia ICD Code: E87.1 - Hypo-osmolality and hyponatremia (4) Acute kidney injury ICD Code: N17.9 - Acute kidney failure, unspecified (5) Sepsis ICD Code: A41.9 - Sepsis, unspecified organism Status: Acute (6) Diabetic foot ulcer ICD Code: E11.621 - Type 2 diabetes mellitus with foot ulcer; L97.509 - Non- pressure chronic ulcer of other part of unspecified foot with unspecified severity Status: Acute (7) Acute renal failure superimposed on stage 3 chronic kidney disease ICD Code: N17.9 - Acute kidney failure, unspecified; N18.3 - Chronic kidney disease, stage 3 (moderate) (8) Bacteremia due to Gram-positive bacteria ICD Code: R78.81 - Bacteremia (9) Postoperative anemia ICD Code: D64.9 - Anemia, unspecified Assessment and Plan This is a 57-year-old male who presented with sepsis 11/20: Continue current care patient refused to be examined 11/21: continue current care 11/22: Continue IV antibiotic per ID recommendation S. aureus Sepsis-- Secondary to diabetic foot infection, bacteremia, right foot osteomyelitis: Right foot osteomyelitis:S /P irrigation/debridement with wound vac placement 06/04. VAC removed 11/13. Status post incision and drainage, fifth metatarsal resection, fifth digit amputation on 10/08/17. Fever- occasional spikes- clinically looks good - Podiatry ff on po pain meds -Rocephin discontinued on 11/02/2017 secondary to possible drug fever. -currently on daptomycin and Levaquin - ID ff -d/w ID 11/18 - re: PICC- no PICC for now Right heel pressure ulcer - dry - off weight bearing - appreciate Podiatry recommendations Right knee effusion- -improved- continue to monitor - may need another therapeutic aspiration if continue to increase or worsens - Appreciate orthopedic surgery recommendations. cultures are negative. Bilateral pleural effusion:-improved clinically Elevated BNP- clinically appears comfortable r/io underlying CHF- ? from high out failure from anemia - pulmonary - stable-respiratory [place]- no SOB- up and ambulating -Appreciate pulmonology recommendations. Status post right-sided thoracentesis. Cytology is negative for malignant cells. -2D echo- EF 55# - S/P Lasix 20 mg IV 11/05 - Lasix 20 mg po daily Peripheral vascular disease: -Appreciate vascular surgery recommendations. Per vascular surgery, no surgical intervention is planned. Postoperative anemia: H and H stable S/P EGD/colonoscopy- gastritis, hemorrhoids - PPI Diabetes mellitus type 2: - good readings -Continue Levemir. Monitor Accu-Cheks and cover with sliding scale insulin. Continue preprandial insulin as well. Acute kidney injury superimposed on chronic kidney disease stage III- good urine out[ut -Creatinine continues to improve. Stage one pressure ulcer. -Patient needs turning every 2 hours. PT working with patient. Hypokalemia-resolved DVT prophylaxis: Heparin- hold with anemia patient up and ambulating Discharge Planning Homeless, lives in the [facility], and IV antibiotic Problem Qualifiers (1) Sepsis: Qualified Codes: A41.9 - Sepsis, unspecified organism (2) Diabetic foot ulcer: Qualified Codes: E10.621 - Type 1 diabetes mellitus with foot ulcer; L97.419 - Non-pressure chronic ulcer of right heel and midfoot with unspecified severity Paras Roe MD Nov 22, 2017 12:52
[2017-11-22] MEDS: DAPTOMYCIN IV SCH (15:39)
[2017-11-22] MEDS: SODIUM CHLORIDE 0.9% IV SCH (15:39)
[2017-11-22] MEDS: INSULIN DETEMIR 100 UNITS/ML VIAL SQ SCH (20:40)
[2017-11-23] MEDS: oxyCODONE/ACETAMINOPHEN 7.5 MG/325 MG TAB PO PRN ×4 (04:55→22:32)
[2017-11-23] MEDS: MORPHINE SULFATE 2 MG/ML SYRINGE IV PUSH PRN ×3 (06:02→18:03)
[2017-11-23 06:10] VITALS: BP 114/65; PULSE 99; RESP 18; TEMP 99.7; O2SAT 96
[2017-11-23 08:00] VITALS: BP 119/71; PULSE 96; RESP 20; TEMP 98.6; O2SAT 96
[2017-11-23] MEDS: INSULIN ASPART 1,000 UNITS/10 ML VIAL SQ SCH ×3 (08:00→16:20)
[2017-11-23] MEDS: INSULIN ASPART SUPPLEMENTAL SCALE SQ SCH ×4 (08:00→20:53)
[2017-11-23] MEDS: SODIUM CHLORIDE 0.9% FLUSH 10 ML FLUSH IV FLUSH SCH ×2 (08:04→20:53)
[2017-11-23] MEDS: PANTOPRAZOLE SOD 40 MG DELAYED RELEASE TAB PO SCH (08:04)
[2017-11-23] MEDS: FUROSEMIDE 20 MG TAB PO SCH (08:04)
[2017-11-23] MEDS: LACTOBACILLUS ACIDOPHILUS TAB PO SCH ×2 (08:04→20:53)
[2017-11-23] MEDS: GABAPENTIN 300 MG CAP PO SCH ×3 (08:04→16:26)
[2017-11-23] MEDS: COLLAGENASE OINT 30 GM TUBE TOPICAL SCH (08:05)
[2017-11-23 11:45] LABS: BICARBONATE 27.5 MEQ/L (21.0-32.0); CALCIUM 8.5 MG/DL (8.5-10.1); CREATININE 0.92 MG/DL (0.60-1.30)
[2017-11-23 12:00] VITALS: BP 120/68; PULSE 87; RESP 20; TEMP 98.4; O2SAT 98
--- NOTE | 2017-11-23 14:14 | HHI.PR ---
Subjective Remarks Resting in bed comfortably no acute issue Placement effort ongoing Objective Vitals Vital Signs Date Time Temp Pulse Resp B/P (MAP) Pulse Ox O2 Delivery O2 Flow Rate FiO2 11/23/17 12:00 98.4 87 20 120/68 (85) 98 11/23/17 08:00 98.6 96 20 119/71 (87) 96 11/23/17 07:42 Nasal Cannula 2.00 11/23/17 06:10 99.7 99 18 114/65 (81) 96 11/23/17 04:00 Nasal Cannula 2.00 11/23/17 00:00 Nasal Cannula 2.00 11/22/17 23:26 100.6 100 18 101/66 (78) 96 11/22/17 20:00 99.8 103 18 118/59 (78) 97 11/22/17 20:00 Nasal Cannula 2.00 11/22/17 16:00 98.9 103 20 128/81 (97) 96 I/O 11/22/17 11/22/17 11/22/17 11/23/17 11/23/17 11/23/17 07:00 15:00 23:00 07:00 15:00 23:00 Intake Total 420 ml 580 ml 480 ml Output Total 950 ml 400 ml 350 ml 1200 ml Balance -530 ml -400 ml 230 ml -720 ml Intake Oral 420 ml 480 ml 480 ml IV Total 100 ml Output Urine Total 950 ml 400 ml 350 ml 1200 ml Drainage Total 0 ml # Voids 3 # Bowel Movements 2 2 Result Diagram: 11/23/17 1049 Objective Remarks GENERAL: This is a well-nourished, well-developed patient, in no apparent distress. NEUROLOGICAL: Awake and alert. Moves all extremity. Normal speech.no focal neurological deficit Procedures 10/08/17 Right foot and ankle incision drainage, 5th metatarsal resection, 5th digit amputation 10/25/17 Incision and drainage Right foot/ankle abscess with bone biopsy right 4th metatarsal base; wound vac placement 11/07/17 EGD showing gastritis, esophagitis and hiatal hernia, Colonoscopy showing diverticulosis, internal and external hemorrhoids A/P Problem List: (1) Osteomyelitis of foot ICD Code: M86.9 - Osteomyelitis, unspecified (2) Leukocytosis ICD Code: D72.829 - Elevated white blood cell count, unspecified (3) Dehydration with hyponatremia ICD Code: E87.1 - Hypo-osmolality and hyponatremia (4) Acute kidney injury ICD Code: N17.9 - Acute kidney failure, unspecified (5) Sepsis ICD Code: A41.9 - Sepsis, unspecified organism Status: Acute (6) Diabetic foot ulcer ICD Code: E11.621 - Type 2 diabetes mellitus with foot ulcer; L97.509 - Non- pressure chronic ulcer of other part of unspecified foot with unspecified severity Status: Acute (7) Acute renal failure superimposed on stage 3 chronic kidney disease ICD Code: N17.9 - Acute kidney failure, unspecified; N18.3 - Chronic kidney disease, stage 3 (moderate) (8) Bacteremia due to Gram-positive bacteria ICD Code: R78.81 - Bacteremia (9) Postoperative anemia ICD Code: D64.9 - Anemia, unspecified Assessment and Plan This is a 57-year-old male who presented with sepsis 11/20: Continue current care patient refused to be examined 11/21: continue current care 11/22: Continue IV antibiotic per ID recommendation : Placement effort spell ongoing vesicular since discharge, meanwhile continue IV antibiotic per ID recommendation S. aureus Sepsis-- Secondary to diabetic foot infection, bacteremia, right foot osteomyelitis: Right foot osteomyelitis:S /P irrigation/debridement with wound vac placement 06/04. VAC removed 11/13. Status post incision and drainage, fifth metatarsal resection, fifth digit amputation on 10/08/17. Fever- occasional spikes- clinically looks good - Podiatry ff on po pain meds -Rocephin discontinued on 11/02/2017 secondary to possible drug fever. -currently on daptomycin and Levaquin - ID ff -d/w ID 11/18 - re: PICC- no PICC for now Right heel pressure ulcer - dry - off weight bearing - appreciate Podiatry recommendations Right knee effusion- -improved- continue to monitor - may need another therapeutic aspiration if continue to increase or worsens - Appreciate orthopedic surgery recommendations. cultures are negative. Bilateral pleural effusion:-improved clinically Elevated BNP- clinically appears comfortable r/io underlying CHF- ? from high out failure from anemia - pulmonary - stable-respiratory [place]- no SOB- up and ambulating -Appreciate pulmonology recommendations. Status post right-sided thoracentesis. Cytology is negative for malignant cells. -2D echo- EF 55# - S/P Lasix 20 mg IV 11/05 - Lasix 20 mg po daily Peripheral vascular disease: -Appreciate vascular surgery recommendations. Per vascular surgery, no surgical intervention is planned. Postoperative anemia: H and H stable S/P EGD/colonoscopy- gastritis, hemorrhoids - PPI Diabetes mellitus type 2: - good readings -Continue Levemir. Monitor Accu-Cheks and cover with sliding scale insulin. Continue preprandial insulin as well. Acute kidney injury superimposed on chronic kidney disease stage III- good urine out[ut -Creatinine continues to improve. Stage one pressure ulcer. -Patient needs turning every 2 hours. PT working with patient. Hypokalemia-resolved DVT prophylaxis: Heparin- hold with anemia patient up and ambulating Discharge Planning Homeless, lives in the [facility], and IV antibiotic Problem Qualifiers (1) Sepsis: Qualified Codes: A41.9 - Sepsis, unspecified organism (2) Diabetic foot ulcer: Qualified Codes: E10.621 - Type 1 diabetes mellitus with foot ulcer; L97.419 - Non-pressure chronic ulcer of right heel and midfoot with unspecified severity Paras Roe MD Nov 23, 2017 14:14
[2017-11-23] MEDS: DAPTOMYCIN IV SCH (15:29)
[2017-11-23] MEDS: SODIUM CHLORIDE 0.9% IV SCH (15:29)
[2017-11-23 16:00] VITALS: BP 130/75; PULSE 100; RESP 20; TEMP 99.8; O2SAT 95
[2017-11-23 20:00] VITALS: BP 90/50; PULSE 100; RESP 17; TEMP 98.1; O2SAT 95
[2017-11-23] MEDS: INSULIN DETEMIR 100 UNITS/ML VIAL SQ SCH (20:53)
[2017-11-24] VITALS: BP 98/69; PULSE 99; RESP 16; TEMP 99.7; O2SAT 95
[2017-11-24] MEDS: MORPHINE SULFATE 2 MG/ML SYRINGE IV PUSH PRN ×5 (00:04→21:13)
[2017-11-24 04:00] VITALS: BP 117/70; PULSE 102; RESP 16; TEMP 100.1; O2SAT 95
[2017-11-24] MEDS: oxyCODONE/ACETAMINOPHEN 7.5 MG/325 MG TAB PO PRN ×4 (04:15→23:39)
[2017-11-24 08:00] VITALS: BP 105/71; PULSE 94; RESP 20; TEMP 98.6; O2SAT 97
[2017-11-24] MEDS: INSULIN ASPART SUPPLEMENTAL SCALE SQ SCH ×4 (08:00→21:00)
[2017-11-24] MEDS: SODIUM CHLORIDE 0.9% FLUSH 10 ML FLUSH IV FLUSH SCH ×2 (08:43→21:12)
[2017-11-24] MEDS: PANTOPRAZOLE SOD 40 MG DELAYED RELEASE TAB PO SCH (08:43)
[2017-11-24] MEDS: LACTOBACILLUS ACIDOPHILUS TAB PO SCH ×2 (08:43→21:12)
[2017-11-24] MEDS: GABAPENTIN 300 MG CAP PO SCH ×3 (08:43→17:27)
[2017-11-24] MEDS: FUROSEMIDE 20 MG TAB PO SCH (08:43)
[2017-11-24] MEDS: COLLAGENASE OINT 30 GM TUBE TOPICAL SCH (08:44)
[2017-11-24] MEDS: INSULIN ASPART 1,000 UNITS/10 ML VIAL SQ SCH ×3 (08:52→17:27)
[2017-11-24 12:00] VITALS: BP 119/69; PULSE 91; RESP 20; TEMP 99.2; O2SAT 96
--- NOTE | 2017-11-24 12:22 | PD.WCN.NOT ---
Wound Consult Description: Received VAC management consult for R lateral foot. Please apply Friday, Friday, Friday with dorsal foot bridge Communicated with: MESERET Bradshaw and Doctor Karlos Recommendation: 1.Wound care will continue to change wound VAC dressing Friday, Friday and Friday. with VAc settings of 125mm/hg continuous. 2.Apply skin prep to non blanchable purple discoloration to R lateral 4th toe with dressing changes 3. Apply skin prep to to intact non blanchable purple discoloration to R heel with dressing changes. Continue maxorb II to R heel with dry cover. 4. Continue Xeroform to R dorsal foot surgical wound as ordered by physician. Additional Information: Patient seen on for wound VAC dressing change.See NPWT for VAC dressing details. After tech writer changed VAC dressing. Cleansed suture line with recently removed sutures to dorsal foot with normal saline and patted dry. Noted cloudy sero-sanguinous drainage oozing at 12 o'clock from lesion. Expressed small amount of puss from lesion. Cleansed incision line again with normal saline and pat dry. Applied Xeroform over incision line in single layer and covered with dry 4x4 gauze pad. Skin prep was applied to dry eschar on plantar surface of foot and to R lateral 4th toe non blanchable purple discoloration and left open to air. Applied skin prep to non blanchable purpled discoloration to R heel and covered open wound to R heel with Maxorb II and secured with dry 4x4 gauze pad, secured with rolled gauze and tape. Neg Pressure Wound Therapy Wound Location Wound Location: R lateral foot Wound Description Length: 12.4cm Width: 2.2cm Depth: 0.9cm Wound bed appearance: ~60% red granulation tissue and ~40% exposed tendon. Minimal sero-sanguinous drainage is noted from wound bed without odor. Wound noted with well defined wound margins. Periwound appearance: Unremarkable Settings Suction: 125 mmHg, Continuous Intensity: Low Other Information: Bridged Foam type: Black Number of pieces: 1 Additonal Information Patient seen on for wound VAC dressing change as ordered by Doctor Aguayo. Wound measurements and description noted above. Removed dressing VAC dressing including drape,1 piece of foam dressing, and one single layer piece of Xeroform to reveal open surgical wound to R lateral foot. Cleansed wound with normal saline and patted dry. Applied skin prep to periwound and R dorsal foot before window paning wound with VAC drape. VAC drape was then bridged to dorsal foot. Applied oil emulsion gauze over exposed tendon. Applied 1 piece of VAC granufoam to wound bed and bridged another piece of black granufoam to dorsal foot over VAC drape. Applied mushroom cap of black granufoam attached to Sensi trac pad to bridged granufoam. Wound VAC is suctioning at 125 mm/hg continuous low suction with out leaks. Veronique Augustine [facility] Nov 24, 2017 12:22
[2017-11-24 16:08] VITALS: BP 112/59; PULSE 90; RESP 20; TEMP 98.8; O2SAT 95
[2017-11-24 17:09] LABS: AUTOMATED NEUTROPHIL # 5.4 TH/MM3 (1.8-7.7); BASOPHIL # 0.1 TH/MM3 (0-0.2); BASOPHIL % 0.6 % (0.0-2.0); EOSINOPHIL # 0.5 TH/MM3 (0-0.4); EOSINOPHIL % 6.5 % (0.0-4.0); HEMATOCRIT 25.6 % (39.0-51.0); HEMOGLOBIN 8.5 GM/DL (13.0-17.0); LYMPH % 20.2 % (9.0-44.0); LYMPHOCYTE # 1.7 TH/MM3 (1.0-4.8); MEAN CORPUSCULAR HEMOGLOBIN 25.6 PG (27.0-34.0); MEAN CORPUSCULAR HGB CONC 33.2 % (32.0-36.0); MEAN PLATELET VOLUME 7.4 FL (7.0-11.0); MONO % 8.6 % (0.0-8.0); MONOCYTE # 0.7 TH/MM3 (0-0.9); NEUT % 64.1 % (16.0-70.0); PLATELET COUNT 444 TH/MM3 (150-450); RED BLOOD COUNT 3.33 MIL/MM3 (4.50-5.90); RED CELL DISTRIBUTION WIDTH 17.9 % (11.6-17.2); WHITE BLOOD COUNT 8.4 TH/MM3 (4.0-11.0)
[2017-11-24] MEDS: DAPTOMYCIN IV SCH (17:31)
[2017-11-24] MEDS: SODIUM CHLORIDE 0.9% IV SCH (17:31)
[2017-11-24 17:39] LABS: ALBUMIN 2.3 GM/DL (3.4-5.0); AST (GOT) 18 U/L (15-37); BICARBONATE 27.5 MEQ/L (21.0-32.0); BLOOD UREA NITROGEN 16 MG/DL (7-18); CALCIUM 8.8 MG/DL (8.5-10.1); CHLORIDE 99 MEQ/L (98-107); CREATININE 0.98 MG/DL (0.60-1.30); GLOMERULAR FILTRATION RATE 78 ML/MIN (>89); GLUCOSE,RANDOM 141 MG/DL (74-106); SODIUM (NA) 134 MEQ/L (136-145)
[2017-11-24 17:40] LABS: ALT (GPT) 20 U/L (12-78)
[2017-11-24 17:42] LABS: ALKALINE PHOSPHATASE 94 U/L (45-117); TOTAL BILIRUBIN ADULT 0.2 MG/DL (0.2-1.0)
--- NOTE | 2017-11-24 18:39 | HHI.PR ---
Subjective Remarks Patient had a low-grade fever 100.1, he told me he get that whenever they do dressing changes Otherwise no complaints Objective Vitals Vital Signs Date Time Temp Pulse Resp B/P (MAP) Pulse Ox O2 Delivery O2 Flow Rate FiO2 11/24/17 16:08 98.8 90 20 112/59 (76) 95 11/24/17 12:00 99.2 91 20 119/69 (86) 96 11/24/17 08:00 98.6 94 20 105/71 (82) 97 11/24/17 08:00 Room Air 11/24/17 04:00 100.1 102 16 117/70 (86) 95 11/24/17 04:00 Nasal Cannula 2.00 11/24/17 00:00 Nasal Cannula 2.00 11/24/17 00:00 99.7 99 16 98/69 (79) 95 11/23/17 20:00 98.1 100 17 90/50 (63) 95 11/23/17 20:00 Nasal Cannula 2.00 I/O 11/23/17 11/23/17 11/23/17 11/24/17 11/24/17 11/24/17 07:00 15:00 23:00 07:00 15:00 23:00 Intake Total 480 ml 1200 ml 1050 ml 620 ml Output Total 1200 ml 775 ml 800 ml 2350 ml Balance -720 ml 425 ml 250 ml -1730 ml Intake Oral 480 ml 1200 ml 1050 ml 620 ml Output Urine Total 1200 ml 775 ml 800 ml 2350 ml # Bowel Movements 1 0 2 Result Diagram: 11/24/17 1628 11/24/17 1628 Objective Remarks GENERAL: This is a well-nourished, well-developed patient, in no apparent distress. NEUROLOGICAL: Awake and alert. Moves all extremity. Normal speech.no focal neurological deficit Procedures 10/08/17 Right foot and ankle incision drainage, 5th metatarsal resection, 5th digit amputation 10/25/17 Incision and drainage Right foot/ankle abscess with bone biopsy right 4th metatarsal base; wound vac placement 11/07/17 EGD showing gastritis, esophagitis and hiatal hernia, Colonoscopy showing diverticulosis, internal and external hemorrhoids A/P Problem List: (1) Osteomyelitis of foot ICD Code: M86.9 - Osteomyelitis, unspecified (2) Leukocytosis ICD Code: D72.829 - Elevated white blood cell count, unspecified (3) Dehydration with hyponatremia ICD Code: E87.1 - Hypo-osmolality and hyponatremia (4) Acute kidney injury ICD Code: N17.9 - Acute kidney failure, unspecified (5) Sepsis ICD Code: A41.9 - Sepsis, unspecified organism Status: Acute (6) Diabetic foot ulcer ICD Code: E11.621 - Type 2 diabetes mellitus with foot ulcer; L97.509 - Non- pressure chronic ulcer of other part of unspecified foot with unspecified severity Status: Acute (7) Acute renal failure superimposed on stage 3 chronic kidney disease ICD Code: N17.9 - Acute kidney failure, unspecified; N18.3 - Chronic kidney disease, stage 3 (moderate) (8) Bacteremia due to Gram-positive bacteria ICD Code: R78.81 - Bacteremia (9) Postoperative anemia ICD Code: D64.9 - Anemia, unspecified Assessment and Plan This is a 57-year-old male who presented with sepsis 11/20: Continue current care patient refused to be examined 11/21: continue current care 11/22: Continue IV antibiotic per ID recommendation /: Placement effort spell ongoing vesicular since discharge, meanwhile continue IV antibiotic per ID recommendation 11/24: Low-grade fever 100.1, monitor CBC S. aureus Sepsis-- Secondary to diabetic foot infection, bacteremia, right foot osteomyelitis: Right foot osteomyelitis:S /P irrigation/debridement with wound vac placement 06/04. VAC removed 11/13. Status post incision and drainage, fifth metatarsal resection, fifth digit amputation on 10/08/17. Fever- occasional spikes- clinically looks good - Podiatry ff on po pain meds -Rocephin discontinued on 11/02/2017 secondary to possible drug fever. -currently on daptomycin and Levaquin - ID ff -d/w ID 11/18 - re: PICC- no PICC for now Right heel pressure ulcer - dry - off weight bearing - appreciate Podiatry recommendations Right knee effusion- -improved- continue to monitor - may need another therapeutic aspiration if continue to increase or worsens - Appreciate orthopedic surgery recommendations. cultures are negative. Bilateral pleural effusion:-improved clinically Elevated BNP- clinically appears comfortable r/io underlying CHF- ? from high out failure from anemia - pulmonary - stable-respiratory [place]- no SOB- up and ambulating -Appreciate pulmonology recommendations. Status post right-sided thoracentesis. Cytology is negative for malignant cells. -2D echo- EF 55# - S/P Lasix 20 mg IV 11/05 - Lasix 20 mg po daily Peripheral vascular disease: -Appreciate vascular surgery recommendations. Per vascular surgery, no surgical intervention is planned. Postoperative anemia: H and H stable S/P EGD/colonoscopy- gastritis, hemorrhoids - PPI Diabetes mellitus type 2: - good readings -Continue Levemir. Monitor Accu-Cheks and cover with sliding scale insulin. Continue preprandial insulin as well. Acute kidney injury superimposed on chronic kidney disease stage III- good urine out[ut -Creatinine continues to improve. Stage one pressure ulcer. -Patient needs turning every 2 hours. PT working with patient. Hypokalemia-resolved DVT prophylaxis: Heparin- hold with anemia patient up and ambulating Discharge Planning Homeless, lives in the [facility], and IV antibiotic Problem Qualifiers (1) Sepsis: Qualified Codes: A41.9 - Sepsis, unspecified organism (2) Diabetic foot ulcer: Qualified Codes: E10.621 - Type 1 diabetes mellitus with foot ulcer; L97.419 - Non-pressure chronic ulcer of right heel and midfoot with unspecified severity Paras Roe MD Nov 24, 2017 18:39
[2017-11-24] MEDS: INSULIN DETEMIR 100 UNITS/ML VIAL SQ SCH (21:12)
[2017-11-24 21:34] VITALS: BP 120/70; PULSE 106; RESP 18; TEMP 98.4; O2SAT 95
[2017-11-25] VITALS (7 sets, daily range): BP systolic 109–124; BP diastolic 59–73; PULSE 80–97; RESP 16–20; TEMP 98.2–100.1; O2SAT 94–99
[2017-11-25] MEDS: ACETAMINOPHEN 500 MG CPLT PO PRN (00:14)
[2017-11-25] MEDS: MORPHINE SULFATE 2 MG/ML SYRINGE IV PUSH PRN ×4 (02:45→21:20)
[2017-11-25] MEDS: oxyCODONE/ACETAMINOPHEN 7.5 MG/325 MG TAB PO PRN ×4 (05:52→23:59)
[2017-11-25] MEDS: FUROSEMIDE 20 MG TAB PO SCH (08:42)
[2017-11-25] MEDS: LACTOBACILLUS ACIDOPHILUS TAB PO SCH ×2 (08:42→21:15)
[2017-11-25] MEDS: PANTOPRAZOLE SOD 40 MG DELAYED RELEASE TAB PO SCH (08:42)
[2017-11-25] MEDS: COLLAGENASE OINT 30 GM TUBE TOPICAL SCH (08:42)
[2017-11-25] MEDS: GABAPENTIN 300 MG CAP PO SCH ×3 (08:42→17:57)
[2017-11-25] MEDS: SODIUM CHLORIDE 0.9% FLUSH 10 ML FLUSH IV FLUSH SCH ×2 (08:43→21:23)
[2017-11-25] MEDS: INSULIN ASPART 1,000 UNITS/10 ML VIAL SQ SCH ×3 (08:43→17:57)
[2017-11-25] MEDS: INSULIN ASPART SUPPLEMENTAL SCALE SQ SCH ×4 (08:43→21:00)
[2017-11-25] MEDS: DAPTOMYCIN IV SCH (15:02)
[2017-11-25] MEDS: SODIUM CHLORIDE 0.9% IV SCH (15:02)
--- NOTE | 2017-11-25 15:49 | HHI.PR ---
Subjective Remarks Patient very pleasant today no acute issue Continue IV antibiotic until stopping date Objective Vitals Vital Signs Date Time Temp Pulse Resp B/P (MAP) Pulse Ox O2 Delivery O2 Flow Rate FiO2 11/25/17 12:00 98.7 89 20 109/70 (83) 95 11/25/17 08:00 98.2 80 20 114/73 (87) 99 11/25/17 08:00 Room Air 11/25/17 04:42 98.8 90 16 111/64 (80) 98 11/25/17 00:41 100.1 97 18 115/65 (82) 94 11/24/17 21:34 98.4 106 18 120/70 (87) 95 11/24/17 20:30 Room Air 11/24/17 16:08 98.8 90 20 112/59 (76) 95 I/O 11/24/17 11/24/17 11/24/17 11/25/17 11/25/17 11/25/17 07:00 15:00 23:00 07:00 15:00 23:00 Intake Total 1050 ml 620 ml 820 ml Output Total 800 ml 2350 ml 1175 ml 825 ml 900 ml Balance 250 ml -1730 ml -1175 ml -825 ml -80 ml Intake Oral 1050 ml 620 ml 820 ml Output Urine Total 800 ml 2350 ml 1175 ml 825 ml 900 ml # Bowel Movements 0 2 Result Diagram: 11/24/17 1628 11/24/17 1628 Objective Remarks GENERAL: This is a well-nourished, well-developed patient, in no apparent distress. NEUROLOGICAL: Awake and alert. Moves all extremity. Normal speech.no focal neurological deficit Procedures 10/08/17 Right foot and ankle incision drainage, 5th metatarsal resection, 5th digit amputation 10/25/17 Incision and drainage Right foot/ankle abscess with bone biopsy right 4th metatarsal base; wound vac placement 11/07/17 EGD showing gastritis, esophagitis and hiatal hernia, Colonoscopy showing diverticulosis, internal and external hemorrhoids A/P Problem List: (1) Osteomyelitis of foot ICD Code: M86.9 - Osteomyelitis, unspecified (2) Leukocytosis ICD Code: D72.829 - Elevated white blood cell count, unspecified (3) Dehydration with hyponatremia ICD Code: E87.1 - Hypo-osmolality and hyponatremia (4) Acute kidney injury ICD Code: N17.9 - Acute kidney failure, unspecified (5) Sepsis ICD Code: A41.9 - Sepsis, unspecified organism Status: Acute (6) Diabetic foot ulcer ICD Code: E11.621 - Type 2 diabetes mellitus with foot ulcer; L97.509 - Non- pressure chronic ulcer of other part of unspecified foot with unspecified severity Status: Acute (7) Acute renal failure superimposed on stage 3 chronic kidney disease ICD Code: N17.9 - Acute kidney failure, unspecified; N18.3 - Chronic kidney disease, stage 3 (moderate) (8) Bacteremia due to Gram-positive bacteria ICD Code: R78.81 - Bacteremia (9) Postoperative anemia ICD Code: D64.9 - Anemia, unspecified Assessment and Plan This is a 57-year-old male who presented with sepsis 11/20: Continue current care patient refused to be examined 11/21: continue current care 11/22: Continue IV antibiotic per ID recommendation : Placement effort spell ongoing vesicular since discharge, meanwhile continue IV antibiotic per ID recommendation 11/24: Low-grade fever 100.1, monitor CBC 11/25: Afebrile, continue IV antibiotic until the stopping date S. aureus Sepsis-- Secondary to diabetic foot infection, bacteremia, right foot osteomyelitis: Right foot osteomyelitis:S /P irrigation/debridement with wound vac placement 06/04. VAC removed 11/13. Status post incision and drainage, fifth metatarsal resection, fifth digit amputation on 10/08/17. Fever- occasional spikes- clinically looks good - Podiatry ff on po pain meds -Rocephin discontinued on 11/02/2017 secondary to possible drug fever. -currently on daptomycin and Levaquin - ID ff -d/w ID 11/18 - re: PICC- no PICC for now Right heel pressure ulcer - dry - off weight bearing - appreciate Podiatry recommendations Right knee effusion- -improved- continue to monitor - may need another therapeutic aspiration if continue to increase or worsens - Appreciate orthopedic surgery recommendations. cultures are negative. Bilateral pleural effusion:-improved clinically Elevated BNP- clinically appears comfortable r/io underlying CHF- ? from high out failure from anemia - pulmonary - stable-respiratory [place]- no SOB- up and ambulating -Appreciate pulmonology recommendations. Status post right-sided thoracentesis. Cytology is negative for malignant cells. -2D echo- EF 55# - S/P Lasix 20 mg IV 11/05 - Lasix 20 mg po daily Peripheral vascular disease: -Appreciate vascular surgery recommendations. Per vascular surgery, no surgical intervention is planned. Postoperative anemia: H and H stable S/P EGD/colonoscopy- gastritis, hemorrhoids - PPI Diabetes mellitus type 2: - good readings -Continue Levemir. Monitor Accu-Cheks and cover with sliding scale insulin. Continue preprandial insulin as well. Acute kidney injury superimposed on chronic kidney disease stage III- good urine out[ut -Creatinine continues to improve. Stage one pressure ulcer. -Patient needs turning every 2 hours. PT working with patient. Hypokalemia-resolved DVT prophylaxis: Heparin- hold with anemia patient up and ambulating Discharge Planning Homeless, lives in the [facility], and IV antibiotic Problem Qualifiers (1) Sepsis: Qualified Codes: A41.9 - Sepsis, unspecified organism (2) Diabetic foot ulcer: Qualified Codes: E10.621 - Type 1 diabetes mellitus with foot ulcer; L97.419 - Non-pressure chronic ulcer of right heel and midfoot with unspecified severity Paras Roe MD Nov 25, 2017 15:48
[2017-11-25] MEDS: INSULIN DETEMIR 100 UNITS/ML VIAL SQ SCH (21:14)
[2017-11-26 03:04] VITALS: BP 108/64; PULSE 94; RESP 18; TEMP 98.7; O2SAT 93
[2017-11-26] MEDS: MORPHINE SULFATE 2 MG/ML SYRINGE IV PUSH PRN ×5 (03:06→21:52)
[2017-11-26] MEDS: oxyCODONE/ACETAMINOPHEN 7.5 MG/325 MG TAB PO PRN (06:06)
[2017-11-26 08:00] VITALS: BP 97/63; PULSE 88; RESP 16; TEMP 98.8; O2SAT 95
[2017-11-26] MEDS: INSULIN ASPART SUPPLEMENTAL SCALE SQ SCH ×4 (08:00→20:25)
[2017-11-26] MEDS: GABAPENTIN 300 MG CAP PO SCH ×3 (08:46→17:58)
[2017-11-26] MEDS: FUROSEMIDE 20 MG TAB PO SCH (08:46)
[2017-11-26] MEDS: PANTOPRAZOLE SOD 40 MG DELAYED RELEASE TAB PO SCH (08:46)
[2017-11-26] MEDS: LACTOBACILLUS ACIDOPHILUS TAB PO SCH ×2 (08:46→20:24)
[2017-11-26] MEDS: SODIUM CHLORIDE 0.9% FLUSH 10 ML FLUSH IV FLUSH SCH ×2 (08:47→20:25)
[2017-11-26] MEDS: COLLAGENASE OINT 30 GM TUBE TOPICAL SCH (08:48)
[2017-11-26] MEDS: INSULIN ASPART 1,000 UNITS/10 ML VIAL SQ SCH ×3 (08:48→16:03)
[2017-11-26] MEDS: oxyCODONE/ACETAMINOPHEN 5 MG/325 MG TAB PO PRN ×2 (11:55→17:59)
[2017-11-26 12:00] VITALS: BP 121/79; PULSE 93; RESP 16; TEMP 99.3; O2SAT 100
--- NOTE | 2017-11-26 13:52 | PD.WCN.NOT ---
Wound Consult Description: R lateral foot Communicated with: Doctor Aguayo and MESERET Jasmine Recommendation: 1.Wound care will continue to change wound VAC dressing Friday, Friday and Friday. with VAc settings of 125mm/hg continuous. 2.Apply skin prep to non blanchable purple discoloration to R lateral 4th toe with dressing changes 3. Apply skin prep to to intact non blanchable purple discoloration to R heel with dressing changes. Continue maxorb II to R heel with dry cover. 4. Dry 4x4 gauze pad to R medial dorsal foot for protection of closed incision line. 5. Secure all dressings with rolled gauze and tape. Change with VAC dressing changes noted above. Additional Information: Patient seen on for wound VAC dressing change.See NPWT for VAC dressing details. After flex o writer operator changed VAC dressing. Cleansed suture line with recently removed sutures to dorsal foot with normal saline and patted dry. Incision line with previous lesion is now dry without oozing, induration or erythema.Applied dry 4x4 gauze pad over incision line for protection. Skin prep was applied to dry eschar on plantar surface of foot and to R lateral 4th toe non blanchable purple discoloration and left open to air. ~80% non blanchable purpled discoloration is noted to R heel. ~20% of R heel wound is open with yellow/ brown slough from 12 to 2 o'clock. R heel wound was cleansed with normal saline and patted dry and covered open wound to R heel with Maxorb II and secured with dry 4x4 gauze pad, secured with rolled gauze and tape. Neg Pressure Wound Therapy Wound Location Wound Location: R lateral foot Wound Description Length: 11.4 cm Width: 2.2cm Depth: 0.9cm Undermining: at 3 o'clock measuring ~1cm Wound bed appearance: ~60% red granulation tissue and ~40% exposed tendon. Minimal sero-sanguinous drainage is noted from wound bed without odor. Wound noted with well defined wound margins. Periwound appearance: Unremarkable Settings Suction: 125 mmHg, Continuous Intensity: Low Other Information: Bridged Foam type: Black Number of pieces: 1 Additonal Information Patient seen on for wound VAC dressing change as ordered by Doctor Aguayo. Wound measurements and description noted above. Removed dressing VAC dressing including drape,1 piece of foam dressing, and one single layer piece of Xeroform to reveal open surgical wound to R lateral foot. Cleansed wound with normal saline and patted dry. Applied skin prep to periwound and R dorsal foot before window paning wound with VAC drape. VAC drape was then bridged to dorsal foot. Applied oil emulsion gauze over exposed tendon. Applied 1 piece of white foam to tunnel at 3 o'clock. Applied 4 pieces of black of VAC granufoam to wound bed and bridged another piece of black granufoam to dorsal foot over VAC drape. Applied mushroom cap of black granufoam attached to Sensi trac pad to bridged granufoam. Wound VAC is suctioning at 125 mm/hg continuous low suction with out leaks. Veronique Augustine [facility] Nov 26, 2017 13:52
[2017-11-26 16:00] VITALS: BP 121/76; PULSE 93; RESP 16; TEMP 98.8; O2SAT 98
[2017-11-26] MEDS: DAPTOMYCIN IV SCH (16:02)
[2017-11-26] MEDS: SODIUM CHLORIDE 0.9% IV SCH (16:02)
--- NOTE | 2017-11-26 16:31 | HHI.PR ---
Subjective Remarks No acute issue, continue dose of IV antibiotic until the He is having the wound VAC dressing changes by the wound care Objective Vitals Vital Signs Date Time Temp Pulse Resp B/P (MAP) Pulse Ox O2 Delivery O2 Flow Rate FiO2 11/26/17 12:00 99.3 93 16 121/79 (93) 100 11/26/17 08:00 Room Air 2.00 11/26/17 08:00 98.8 88 16 97/63 (74) 95 11/26/17 03:04 98.7 94 18 108/64 (79) 93 11/25/17 23:55 99.6 94 18 112/71 (85) 98 11/25/17 20:40 98.8 95 16 124/59 (80) 95 11/25/17 20:15 Room Air I/O 11/25/17 11/25/17 11/25/17 11/26/17 11/26/17 11/26/17 07:00 15:00 23:00 07:00 15:00 23:00 Intake Total 820 ml 720 ml Output Total 825 ml 900 ml 500 ml 1600 ml Balance -825 ml -80 ml -500 ml -880 ml Intake Oral 820 ml 720 ml Output Urine Total 825 ml 900 ml 500 ml 1600 ml # Bowel Movements 1 Result Diagram: 11/24/17 1628 11/24/17 1628 Objective Remarks GENERAL: This is a well-nourished, well-developed patient, in no apparent distress. NEUROLOGICAL: Awake and alert. Moves all extremity. Normal speech.no focal neurological deficit Procedures 10/08/17 Right foot and ankle incision drainage, 5th metatarsal resection, 5th digit amputation 10/25/17 Incision and drainage Right foot/ankle abscess with bone biopsy right 4th metatarsal base; wound vac placement 11/07/17 EGD showing gastritis, esophagitis and hiatal hernia, Colonoscopy showing diverticulosis, internal and external hemorrhoids A/P Problem List: (1) Osteomyelitis of foot ICD Code: M86.9 - Osteomyelitis, unspecified (2) Leukocytosis ICD Code: D72.829 - Elevated white blood cell count, unspecified (3) Dehydration with hyponatremia ICD Code: E87.1 - Hypo-osmolality and hyponatremia (4) Acute kidney injury ICD Code: N17.9 - Acute kidney failure, unspecified (5) Sepsis ICD Code: A41.9 - Sepsis, unspecified organism Status: Acute (6) Diabetic foot ulcer ICD Code: E11.621 - Type 2 diabetes mellitus with foot ulcer; L97.509 - Non- pressure chronic ulcer of other part of unspecified foot with unspecified severity Status: Acute (7) Acute renal failure superimposed on stage 3 chronic kidney disease ICD Code: N17.9 - Acute kidney failure, unspecified; N18.3 - Chronic kidney disease, stage 3 (moderate) (8) Bacteremia due to Gram-positive bacteria ICD Code: R78.81 - Bacteremia (9) Postoperative anemia ICD Code: D64.9 - Anemia, unspecified Assessment and Plan This is a 57-year-old male who presented with sepsis 11/26 continue current care on IV antibiotics until the , unable to be discharged after finishing antibiotic due to being homeless and noncompliant S. aureus Sepsis-- Secondary to diabetic foot infection, bacteremia, right foot osteomyelitis: Right foot osteomyelitis:S /P irrigation/debridement with wound vac placement 06/04. VAC removed 11/13. Status post incision and drainage, fifth metatarsal resection, fifth digit amputation on 10/08/17. Fever- occasional spikes- clinically looks good - Podiatry ff on po pain meds -Rocephin discontinued on 11/02/2017 secondary to possible drug fever. -currently on daptomycin and Levaquin - ID ff -d/w ID 11/18 - re: PICC- no PICC for now Right heel pressure ulcer - dry - off weight bearing - appreciate Podiatry recommendations Right knee effusion- -improved- continue to monitor - may need another therapeutic aspiration if continue to increase or worsens - Appreciate orthopedic surgery recommendations. cultures are negative. Bilateral pleural effusion:-improved clinically Elevated BNP- clinically appears comfortable r/io underlying CHF- ? from high out failure from anemia - pulmonary - stable-respiratory [place]- no SOB- up and ambulating -Appreciate pulmonology recommendations. Status post right-sided thoracentesis. Cytology is negative for malignant cells. -2D echo- EF 55# - S/P Lasix 20 mg IV 11/05 - Lasix 20 mg po daily Peripheral vascular disease: -Appreciate vascular surgery recommendations. Per vascular surgery, no surgical intervention is planned. Postoperative anemia: H and H stable S/P EGD/colonoscopy- gastritis, hemorrhoids - PPI Diabetes mellitus type 2: - good readings -Continue Levemir. Monitor Accu-Cheks and cover with sliding scale insulin. Continue preprandial insulin as well. Acute kidney injury superimposed on chronic kidney disease stage III- good urine out[ut -Creatinine continues to improve. Stage one pressure ulcer. -Patient needs turning every 2 hours. PT working with patient. Hypokalemia-resolved DVT prophylaxis: Heparin- hold with anemia patient up and ambulating Discharge Planning Homeless, lives in the [facility], and IV antibiotic Problem Qualifiers (1) Sepsis: Qualified Codes: A41.9 - Sepsis, unspecified organism (2) Diabetic foot ulcer: Qualified Codes: E10.621 - Type 1 diabetes mellitus with foot ulcer; L97.419 - Non-pressure chronic ulcer of right heel and midfoot with unspecified severity Paras Roe MD Nov 26, 2017 16:31
[2017-11-26 20:00] VITALS: BP 115/71; PULSE 99; RESP 20; TEMP 97.9; O2SAT 95
[2017-11-26] MEDS: INSULIN DETEMIR 100 UNITS/ML VIAL SQ SCH (20:24)
[2017-11-27] VITALS: BP 127/61; PULSE 90; RESP 18; TEMP 99; O2SAT 97
[2017-11-27] MEDS: oxyCODONE/ACETAMINOPHEN 7.5 MG/325 MG TAB PO PRN ×2 (00:05→19:50)
[2017-11-27] MEDS: MORPHINE SULFATE 2 MG/ML SYRINGE IV PUSH PRN ×4 (02:19→21:17)
[2017-11-27 04:00] VITALS: BP 126/75; PULSE 94; RESP 19; TEMP 98.3; O2SAT 97
[2017-11-27] MEDS: INSULIN ASPART SUPPLEMENTAL SCALE SQ SCH ×4 (07:42→21:17)
[2017-11-27 08:00] VITALS: BP 131/78; PULSE 94; RESP 15; TEMP 99.5; O2SAT 95
[2017-11-27] MEDS: LACTOBACILLUS ACIDOPHILUS TAB PO SCH ×2 (08:24→19:50)
[2017-11-27] MEDS: oxyCODONE/ACETAMINOPHEN 5 MG/325 MG TAB PO PRN ×2 (08:27→14:51)
[2017-11-27] MEDS: GABAPENTIN 300 MG CAP PO SCH ×3 (08:27→17:33)
[2017-11-27] MEDS: FUROSEMIDE 20 MG TAB PO SCH (08:27)
[2017-11-27] MEDS: PANTOPRAZOLE SOD 40 MG DELAYED RELEASE TAB PO SCH (08:27)
[2017-11-27] MEDS: SODIUM CHLORIDE 0.9% FLUSH 10 ML FLUSH IV FLUSH SCH ×2 (08:28→21:18)
[2017-11-27] MEDS: INSULIN ASPART 1,000 UNITS/10 ML VIAL SQ SCH ×3 (08:28→16:05)
[2017-11-27] MEDS: COLLAGENASE OINT 30 GM TUBE TOPICAL SCH (08:32)
[2017-11-27 12:00] VITALS: BP 127/81; PULSE 88; RESP 16; TEMP 97.9; O2SAT 99
--- NOTE | 2017-11-27 13:45 | HHI.PR ---
Subjective Remarks Patient reports he is feeling okay today. He has some confusions about he is activity level. No new complaints. Pain is controlled. Objective Vitals Vital Signs Date Time Temp Pulse Resp B/P (MAP) Pulse Ox O2 Delivery O2 Flow Rate FiO2 11/27/17 12:00 97.9 88 16 127/81 (96) 99 11/27/17 08:00 Room Air 2.00 11/27/17 08:00 99.5 94 15 131/78 (95) 95 11/27/17 04:00 98.3 94 19 126/75 (92) 97 11/27/17 00:00 Room Air 11/27/17 00:00 99.0 90 18 127/61 (83) 97 11/26/17 20:00 97.9 99 20 115/71 (86) 95 11/26/17 20:00 Room Air 11/26/17 16:00 98.8 93 16 121/76 (91) 98 I/O 11/26/17 11/26/17 11/26/17 11/27/17 11/27/17 11/27/17 07:00 15:00 23:00 07:00 15:00 23:00 Intake Total 720 ml 100 ml 240 ml Output Total 1600 ml 1900 ml Balance -880 ml 100 ml -1660 ml Intake Oral 720 ml 240 ml IV Total 100 ml Output Urine Total 1600 ml 1900 ml # Bowel Movements 1 1 Result Diagram: 11/24/17 1628 11/24/17 1628 Objective Remarks GENERAL: This is a well-nourished, well-developed patient, in no apparent distress. CARDIOVASCULAR: Normal rate and regular rhythm without murmurs, gallops, or rubs. RESPIRATORY: Good respiratory efforts. Breath sounds equal and clear to auscultation bilaterally. GASTROINTESTINAL: Abdomen soft, non-tender, non-distended. Normal active bowel sounds MUSCULOSKELETAL: Right foot has a wound VAC in place. NEURO: Alert & Oriented x4 to person, place, time, situation. Moves all ext x4 PSYCH: Appropriate mood and affect. Procedures 10/08/17 Right foot and ankle incision drainage, 5th metatarsal resection, 5th digit amputation 10/25/17 Incision and drainage Right foot/ankle abscess with bone biopsy right 4th metatarsal base; wound vac placement 11/07/17 EGD showing gastritis, esophagitis and hiatal hernia, Colonoscopy showing diverticulosis, internal and external hemorrhoids A/P Problem List: (1) Osteomyelitis of foot ICD Code: M86.9 - Osteomyelitis, unspecified (2) Leukocytosis ICD Code: D72.829 - Elevated white blood cell count, unspecified (3) Dehydration with hyponatremia ICD Code: E87.1 - Hypo-osmolality and hyponatremia (4) Acute kidney injury ICD Code: N17.9 - Acute kidney failure, unspecified (5) Sepsis ICD Code: A41.9 - Sepsis, unspecified organism Status: Acute (6) Diabetic foot ulcer ICD Code: E11.621 - Type 2 diabetes mellitus with foot ulcer; L97.509 - Non- pressure chronic ulcer of other part of unspecified foot with unspecified severity Status: Acute (7) Acute renal failure superimposed on stage 3 chronic kidney disease ICD Code: N17.9 - Acute kidney failure, unspecified; N18.3 - Chronic kidney disease, stage 3 (moderate) (8) Bacteremia due to Gram-positive bacteria ICD Code: R78.81 - Bacteremia (9) Postoperative anemia ICD Code: D64.9 - Anemia, unspecified Assessment and Plan 57-year-old male who presented with sepsis S. aureus Sepsis-- Secondary to diabetic foot infection, bacteremia, right foot osteomyelitis: Right foot osteomyelitis:S /P irrigation/debridement with wound vac placement 06/04. VAC removed 11/13. Status post incision and drainage, fifth metatarsal resection, fifth digit amputation on 10/08/17. Podiatry following -currently on Cubicin, stop date 12/08/17. Infectious disease signed off. - clarified with the patient that he can be out of bed with assistance. Nonweightbearing on the right lower extremity per podiatry. Right heel pressure ulcer - dry - off weight bearing - appreciate Podiatry recommendations Right knee effusion- -improved- continue to monitor - Appreciate orthopedic surgery recommendations. cultures are negative. Bilateral pleural effusion:-improved clinically Elevated BNP- clinically appears comfortable r/io underlying CHF- ? from high out failure from anemia - pulmonary - stable-respiratory [place]- no SOB- up and ambulating -Appreciate pulmonology recommendations. Status post right-sided thoracentesis. Cytology is negative for malignant cells. -2D echo- EF 55% - S/P Lasix 20 mg IV 11/05 - Lasix 20 mg po daily Peripheral vascular disease: -Appreciate vascular surgery recommendations. Per vascular surgery, no surgical intervention is planned. Postoperative anemia: H and H stable S/P EGD/colonoscopy- gastritis, hemorrhoids - PPI Diabetes mellitus type 2: - good readings -Continue Levemir. Monitor Accu-Cheks and cover with sliding scale insulin. Continue preprandial insulin as well. Acute kidney injury superimposed on chronic kidney disease stage III- good urine output -Creatinine continues to improve. Stage one pressure ulcer. -Patient needs turning every 2 hours. PT working with patient. Hypokalemia-resolved DVT prophylaxis: Heparin- hold with anemia patient up and ambulating Discharge Planning Homeless, lives in the [facility], on IV antibiotic with completion date of 12/08/17 Problem Qualifiers (1) Sepsis: Qualified Codes: A41.9 - Sepsis, unspecified organism (2) Diabetic foot ulcer: Qualified Codes: E10.621 - Type 1 diabetes mellitus with foot ulcer; L97.419 - Non-pressure chronic ulcer of right heel and midfoot with unspecified severity Susan Lizarraga MD Nov 27, 2017 13:44
[2017-11-27 16:00] VITALS: BP 115/73; PULSE 93; RESP 16; TEMP 99.1; O2SAT 98
[2017-11-27] MEDS: SODIUM CHLORIDE 0.9% IV SCH (16:04)
[2017-11-27] MEDS: DAPTOMYCIN IV SCH (16:04)
--- NOTE | 2017-11-27 18:00 | HHI.PR ---
Addendum to Inpatient Note Addendum Reason: Additional Documentation Additional Information Chart review documentation Afebrile WBC last ok Dw CM: placement issue, will complete IV abx in hospital. Antibiotic stop date in chart. Dapto stop date: 12/08/17. Please check CBC with diff, CMP, CK levels on each Friday and Prn. Hospitalist to order and follow. Will sign off please call back if any change in clinical condition or questions. Chuyita Quinteros MD Nov 27, 2017 18:00
--- NOTE | 2017-11-27 18:59 | HHI.PR ---
Subjective Remarks Patient seen bedside, wound vac functioning at 125mmHg. Patient states pain is well controlled. Objective Vital Signs Date Time Temp Pulse Resp B/P (MAP) Pulse Ox O2 Delivery O2 Flow Rate FiO2 11/27/17 16:00 99.1 93 16 115/73 (87) 98 11/27/17 12:00 97.9 88 16 127/81 (96) 99 11/27/17 08:00 Room Air 2.00 11/27/17 08:00 99.5 94 15 131/78 (95) 95 11/27/17 04:00 98.3 94 19 126/75 (92) 97 11/27/17 00:00 Room Air 11/27/17 00:00 99.0 90 18 127/61 (83) 97 11/26/17 20:00 97.9 99 20 115/71 (86) 95 11/26/17 20:00 Room Air I/O 11/26/17 11/26/17 11/26/17 11/27/17 11/27/17 11/27/17 07:00 15:00 23:00 07:00 15:00 23:00 Intake Total 720 ml 100 ml 240 ml 100 ml Output Total 1600 ml 1900 ml Balance -880 ml 100 ml -1660 ml 100 ml Intake Oral 720 ml 240 ml IV Total 100 ml 100 ml Output Urine Total 1600 ml 1900 ml # Bowel Movements 1 1 Result Diagram: 11/24/17 1628 11/24/17 1628 Imaging Last Impressions Lower Extremity Ultrasound 11/11/17 0000 Signed Impressions: Service Date/Time: Saturday, November 11, 2017 09:17 - CONCLUSION: Normal examination. Wm Riley MD Chest X-Ray 11/08/17 0000 Signed Impressions: Service Date/Time: Wednesday, November 08, 2017 10:43 - CONCLUSION: Bibasilar infiltrates. Hector Pierre MD Foot MRI 10/24/17 0000 Signed Impressions: Service Date/Time: Tuesday, October 24, 2017 10:08 - CONCLUSION: 1. Marrow edema and mild marrow enhancement in the proximal fourth metatarsal suspicious for an early osteomyelitis. 2. Complex fluid collection in the lateral foot near the base of the fourth metatarsal, probably an abscess with surrounding cellulitis. 3. Extensive marrow edema in the midfoot as above, probably reactive. Patchy low signal in the navicular and cuboid may indicate some avascular necrosis. 4. Postoperative resection of the fifth toe and fifth metatarsal. Francisco Grider MD Ankle MRI 10/24/17 Signed Impressions: Service Date/Time: Tuesday, October 24, 2017 10:08 - CONCLUSION: 1. No definite evidence for osteomyelitis around the right ankle. Marrow edema however has increased slightly since the prior exam, probably reactive and possibly associated with a developing Charcot arthropathy. Low signal patchy areas within the tarsal navicular are suspicious for developing avascular necrosis. There is edema in the soft tissues of the hindfoot. Trace joint fluid. Francisco Grider MD Foot X-Ray 10/23/17 0000 Signed Impressions: Service Date/Time: October 17:15 - CONCLUSION: 1. 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 Lupillo Webster MD Thoracentesis Ultrasound 10/20/17 0600 Signed Impressions: Service Date/Time: Friday, October 20, 2017 13:03 - CONCLUSION: Uncomplicated ultrasound guided thoracentesis. Smooth Saucedo MD Chest Ultrasound 10/17/17 0000 Signed Impressions: Service Date/Time: Tuesday, October 17, 2017 20:24 - CONCLUSION: A moderate to large right pleural effusion is confirmed sonographically and marked for thoracentesis. Hector Pierre MD Chest CT 10/16/17 Signed Impressions: Service Date/Time: October 20:14 - CONCLUSION: Moderate-sized bilateral pleural effusions with adjacent compressive atelectasis and/or pneumonia. Scattered increased interstitial infiltrates within the perihilar regions and upper lobes bilaterally raising the possibility of pulmonary vascular congestion. Cardiomegaly and coronary artery calcifications are noted. Mild pretracheal and AP window mediastinal lymphadenopathy which is nonspecific. Degenerative changes and mild scoliosis of the thoracic spine. Hector Pierre MD Aspiration 10/16/17 0000 Signed Impressions: Service Date/Time: October 15:48 - CONCLUSION: Uncomplicated aspiration as above. Chetan Escobedo MD Abdomen/Pelvis CT 10/16/17 Signed Impressions: Service Date/Time: October 20:14 - CONCLUSION: 1. Moderate-sized bilateral pleural effusions with adjacent consolidations consistent with atelectasis and/or pneumonia. 2. Tiny calcified nonobstructing bilateral renal calculi. 3. Mild hepatosplenomegaly. 4. Uncomplicated colonic diverticulosis. 5. Minimal free fluid within the pelvis. 6. Streakiness and fluid within the bilateral retroperitoneum inferior to the kidneys and extending into the presacral region. 7. Degenerative changes and scoliosis of the thoracolumbar spine. Hector Pierre MD Knee X-Ray 10/15/17 0000 Signed Impressions: Service Date/Time: Sunday, October 15, 2017 15:26 - CONCLUSION: Large joint effusion otherwise negative. Tu Lim MD FACR Carotid Artery Ultrasound 10/13/17 0000 Signed Impressions: Service Date/Time: Friday, October 13, 2017 16:12 - CONCLUSION: No evidence of flow-limiting carotid stenosis. Wm Riley MD Aorta w/Runoff CTA 10/13/17 0000 Signed Impressions: Service Date/Time: Friday, October 13, 2017 22:41 - CONCLUSION: 1. No aortic occlusive disease. 2. No significant iliac inflow stenosis. 3. No significant outflow stenosis. 4. Diffuse bilateral runoff disease with heavily calcified tibial arteries and significant venous contamination precluding patency evaluation beyond the very proximal calf. 5. Small to moderate bilateral pleural effusions with associated airspace disease at the lung bases, presumably atelectasis. 6. Trace free fluid in the deep pelvis. 7. Ancillary findings include hepatic steatosis, nonobstructing punctate calyceal calculus in the inferior pole of the left kidney and small suprapatellar right joint effusion. Lupillo Webster MD Procedures s/p right foot incision and drainage; repeat incision and drainage performed Other Results Microbiology Date/Time Source Procedure Growth Status 10/31/17 14:46 Blood Peripheral Aerobic Blood Culture - Final NO GROWTH IN 5 DAYS Complete 10/31/17 14:46 Blood Peripheral Anaerobic Blood Culture - Final NO GROWTH IN 5 DAYS Complete 10/20/17 14:25 Fluid Pleural Fluid Fungal Smear - Final NO FUNGAL ELEMENTS SEEN. Complete 10/20/17 14:25 Fluid Pleural Fluid Fungal Culture - Final NO GROWTH IN 4 WEEKS Complete 11/05/17 10:00 Stool Stool Stool Occult Blood (MILA) - Final HEMOCCULT NEGATIVE Complete 11/27/17 17:45 Wound Foot Gram Stain Pending Received 11/27/17 17:45 Wound Foot Wound Culture Pending Received Objective Remarks Vascular: Dorsalis pedis 1/4, posterior tibial 0/4. Capillary refill time within normal limits to digits 4 right foot, 5 left foot. Edema present right foot and ankle Neuro: Gross sensation intact to bilateral lower extremity. No hyperalgesia noted to bilateral lower extremity Dermatology: Right lateral foot incision extending from fourth metatarsal head to lateral midfoot, mild maceration noted on wound VAC removal to the very distal aspect of incision. No purulent drainage noted on compression. Exposed capsule noted to the lateral midfoot. Mild erythema noted to right foot and ankle. Anterior incisions 2 noted with sutures intact and skin well coapted, no purulent drainage upon compression. Exposed bone midfoot with probe to bone. Musculoskeletal: Tender to palpation globally to right foot and ankle. Medications and IVs Current Medications Medications (Trade) Dose Ordered Sig/Anna Route Start Time Stop Time Status Last Admin (NS Flush) 2 ml UNSCH PRN IV FLUSH 10/07/17 16:45 11/20/17 06:46 (NS Flush) 2 ml BID IV FLUSH 10/07/17 21:00 11/27/17 08:28 (Narcan Inj) 0.4 mg UNSCH PRN IV PUSH 10/07/17 16:45 (D50w (Vial) Inj) 50 ml UNSCH PRN IV PUSH 10/08/17 10:30 (Glucagon Inj) 1 mg UNSCH PRN OTHER 10/08/17 10:30 (Lactinex) 1 tab Q12HR PO 10/08/17 21:00 11/27/17 08:24 (NovoLOG INJ) 5 units TIDAC SQ 10/12/17 08:00 11/27/17 16:05 (Levemir Inj) 15 units HS SQ 10/12/17 21:00 11/26/17 20:24 (Restoril) 15 mg HS PRN PO 10/13/17 12:45 10/28/17 21:54 (Tylenol) 500 mg Q4H PRN PO 10/13/17 13:15 11/25/17 00:14 (Santyl Oint) 1 applic DAILY TOPICAL 10/22/17 12:00 11/27/17 08:32 (Neurontin) 600 mg TID PO 10/23/17 18:00 11/27/17 17:33 Daptomycin 640 mg/ Sodium Chloride 100 ml @ 200 mls/hr Q24H IV 10/31/17 16:00 12/08/17 15:59 11/27/17 16:04 (Morphine Inj) 1 mg Q4H PRN IV PUSH 11/04/17 08:30 11/27/17 16:13 (Lasix) 20 mg DAILY PO 11/06/17 09:00 11/27/17 08:27 (Protonix) 40 mg DAILY PO 11/09/17 09:00 11/27/17 08:27 (NovoLOG SUPPLEMENTAL SCALE) 1 ACHS SLIDING SCALE SQ 11/08/17 17:00 11/27/17 16:06 (Percocet 5-325 Mg) 1 tab Q6H PRN PO 11/12/17 11:15 11/27/17 14:51 (Percocet 7.5-325 Mg) 1 tab Q6H PRN PO 11/12/17 11:15 11/27/17 00:05 (Morphine Inj) 1 mg BID PRN IV PUSH 11/14/17 08:45 11/26/17 13:37 Assessment and Plan Assessment and Plan 57-year-old male right foot wound s/p surgical intervention Patient examined evaluated with all questions answered Wound VAC removed to right lower extremity Xeroform, dry sterile dressing applied Wound care to reapply wound vac tomorrow Wound culture take, if negative will consider graft placement while patient in house Continue IV antibiotics Concern for exposed bone-minimal granulation noted to exposed bone Raquel Hobbs DPM Nov 27, 2017 18:59
[2017-11-27 20:00] VITALS: BP 141/75; PULSE 101; RESP 17; TEMP 99.3; O2SAT 99
[2017-11-27] MEDS: INSULIN DETEMIR 100 UNITS/ML VIAL SQ SCH (21:18)
[2017-11-28] VITALS: BP 118/66; PULSE 92; RESP 16; TEMP 98.6; O2SAT 96
[2017-11-28] MEDS: MORPHINE SULFATE 2 MG/ML SYRINGE IV PUSH PRN ×5 (01:23→19:21)
[2017-11-28] MEDS: oxyCODONE/ACETAMINOPHEN 7.5 MG/325 MG TAB PO PRN ×4 (03:16→23:31)
[2017-11-28 04:00] VITALS: BP 105/57; PULSE 97; RESP 17; TEMP 98.4; O2SAT 94
[2017-11-28 08:00] VITALS: BP 130/80; PULSE 86; RESP 21; TEMP 98.3; O2SAT 98
[2017-11-28] MEDS: INSULIN ASPART 1,000 UNITS/10 ML VIAL SQ SCH ×3 (08:00→18:23)
[2017-11-28] MEDS: INSULIN ASPART SUPPLEMENTAL SCALE SQ SCH ×4 (08:00→20:48)
[2017-11-28] MEDS: COLLAGENASE OINT 30 GM TUBE TOPICAL SCH (09:00)
[2017-11-28] MEDS: FUROSEMIDE 20 MG TAB PO SCH (09:13)
[2017-11-28] MEDS: LACTOBACILLUS ACIDOPHILUS TAB PO SCH ×2 (09:13→21:54)
[2017-11-28] MEDS: SODIUM CHLORIDE 0.9% FLUSH 10 ML FLUSH IV FLUSH SCH ×2 (09:13→21:00)
[2017-11-28] MEDS: PANTOPRAZOLE SOD 40 MG DELAYED RELEASE TAB PO SCH (09:13)
[2017-11-28] MEDS: GABAPENTIN 300 MG CAP PO SCH ×3 (09:13→18:24)
--- NOTE | 2017-11-28 10:43 | HHI.PR ---
Subjective Remarks Patient reports he is feeling okay. Pain is controlled. Objective Vitals Vital Signs Date Time Temp Pulse Resp B/P (MAP) Pulse Ox O2 Delivery O2 Flow Rate FiO2 11/28/17 04:00 Room Air 11/28/17 04:00 98.4 97 17 105/57 (73) 94 11/28/17 00:00 98.6 92 16 118/66 (83) 96 11/28/17 00:00 Room Air 11/27/17 20:00 99.3 101 17 141/75 (97) 99 11/27/17 16:00 99.1 93 16 115/73 (87) 98 11/27/17 12:00 97.9 88 16 127/81 (96) 99 I/O 11/27/17 11/27/17 11/27/17 11/28/17 11/28/17 11/28/17 07:00 15:00 23:00 07:00 15:00 23:00 Intake Total 240 ml 100 ml 240 ml Output Total 1900 ml Balance -1660 ml 100 ml 240 ml Intake Oral 240 ml 240 ml IV Total 100 ml Output Urine Total 1900 ml # Voids 2 # Bowel Movements 1 1 Result Diagram: 11/24/17 1628 11/24/17 1628 Objective Remarks GENERAL: This is a well-nourished, well-developed patient, in no apparent distress. CARDIOVASCULAR: Normal rate and regular rhythm without murmurs, gallops, or rubs. RESPIRATORY: Good respiratory efforts. Breath sounds equal and clear to auscultation bilaterally. GASTROINTESTINAL: Abdomen soft, non-tender, non-distended. Normal active bowel sounds MUSCULOSKELETAL: Right foot has a wound VAC in place. NEURO: Alert & Oriented x4 to person, place, time, situation. Moves all ext x4 PSYCH: Appropriate mood and affect. Procedures 10/08/17 Right foot and ankle incision drainage, 5th metatarsal resection, 5th digit amputation 10/25/17 Incision and drainage Right foot/ankle abscess with bone biopsy right 4th metatarsal base; wound vac placement 11/07/17 EGD showing gastritis, esophagitis and hiatal hernia, Colonoscopy showing diverticulosis, internal and external hemorrhoids A/P Problem List: (1) Osteomyelitis of foot ICD Code: M86.9 - Osteomyelitis, unspecified (2) Leukocytosis ICD Code: D72.829 - Elevated white blood cell count, unspecified (3) Dehydration with hyponatremia ICD Code: E87.1 - Hypo-osmolality and hyponatremia (4) Acute kidney injury ICD Code: N17.9 - Acute kidney failure, unspecified (5) Sepsis ICD Code: A41.9 - Sepsis, unspecified organism Status: Acute (6) Diabetic foot ulcer ICD Code: E11.621 - Type 2 diabetes mellitus with foot ulcer; L97.509 - Non- pressure chronic ulcer of other part of unspecified foot with unspecified severity Status: Acute (7) Acute renal failure superimposed on stage 3 chronic kidney disease ICD Code: N17.9 - Acute kidney failure, unspecified; N18.3 - Chronic kidney disease, stage 3 (moderate) (8) Bacteremia due to Gram-positive bacteria ICD Code: R78.81 - Bacteremia (9) Postoperative anemia ICD Code: D64.9 - Anemia, unspecified Assessment and Plan 57-year-old male who presented with sepsis S. aureus Sepsis-- Secondary to diabetic foot infection, bacteremia, right foot osteomyelitis: Right foot osteomyelitis:S /P irrigation/debridement with wound vac placement 06/04. VAC removed 11/13. Status post incision and drainage, fifth metatarsal resection, fifth digit amputation on 10/08/17. Podiatry following -currently on Cubicin, stop date 12/08/17. Infectious disease signed off. - clarified with the patient that he can be out of bed with assistance. Nonweightbearing on the right lower extremity per podiatry. -Repeat wound culture per podiatry on 11/27/17. Podiatry considering graft. Right heel pressure ulcer - dry - off weight bearing - appreciate Podiatry recommendations Right knee effusion- -improved- continue to monitor - Appreciate orthopedic surgery recommendations. cultures are negative. Bilateral pleural effusion:-improved clinically Elevated BNP- clinically appears comfortable r/io underlying CHF- ? from high out failure from anemia - pulmonary - stable-respiratory [place]- no SOB- up and ambulating - Appreciate pulmonology recommendations. Status post right-sided thoracentesis. Cytology is negative for malignant cells. - 2D echo- EF 55% - S/P Lasix 20 mg IV 11/05 - Lasix 20 mg po daily Peripheral vascular disease: -Appreciate vascular surgery recommendations. Per vascular surgery, no surgical intervention is planned. Postoperative anemia: H and H stable S/P EGD/colonoscopy- gastritis, hemorrhoids - PPI Diabetes mellitus type 2: - good readings -Continue Levemir. Monitor Accu-Cheks and cover with sliding scale insulin. Continue preprandial insulin as well. Acute kidney injury superimposed on chronic kidney disease stage III- good urine output -Creatinine continues to improve. Stage one pressure ulcer. -Patient needs turning every 2 hours. PT working with patient. Hypokalemia-resolved DVT prophylaxis: Resume Heparin Discharge Planning Homeless, lives in the [facility], on IV antibiotic with completion date of 12/08/17 Problem Qualifiers (1) Sepsis: Qualified Codes: A41.9 - Sepsis, unspecified organism (2) Diabetic foot ulcer: Qualified Codes: E10.621 - Type 1 diabetes mellitus with foot ulcer; L97.419 - Non-pressure chronic ulcer of right heel and midfoot with unspecified severity Susan Lizarraga MD Nov 28, 2017 10:43
[2017-11-28 12:00] VITALS: BP 131/74; PULSE 86; RESP 20; TEMP 97.9; O2SAT 90
[2017-11-28 16:00] VITALS: BP 101/58; PULSE 97; RESP 19; TEMP 98.7; O2SAT 95
[2017-11-28] MEDS: HEPARIN SODIUM - SQ 10,000 UNITS/ML VIAL SQ SCH (16:06)
[2017-11-28] MEDS: SODIUM CHLORIDE 0.9% IV SCH (16:06)
[2017-11-28] MEDS: DAPTOMYCIN IV SCH (16:06)
--- NOTE | 2017-11-28 18:16 | PD.WCN.NOT ---
Wound Consult Description: R lateral foot Communicated with: MESERET espana and Doctor Hobbs Recommendation: 1. D/c wound VAC and apply dressing as ordered by Doctor Hobbs for R lateral foot. 2.Apply skin prep to non blanchable purple discoloration to R lateral 4th toe with dressing changes 3. Apply skin prep to to intact non blanchable purple discoloration to R heel with dressing changes. Continue maxorb II to R heel with dry cover. 4. Dry 4x4 gauze pad to R medial dorsal foot for protection of closed incision line. Additional Information: Patient seen on for dressing change with puracol ag following D/C of wound VAC. Spoke with Doctor Hobbs regarding wound VAC and wound culture results. Received telephone order to d/c wound VAC. Patient has positive wound culture for rare budding yeast cells. Removed elastic wrap, rolled gauze, gauze and xerform in place to wound bed to reveal wound with ~40% red granulated tissue, ~40% tendon, ~10% bone, and ~10% facia. Periwound is noted with some maceration and discoloration between 3 and 4 o'clock. Wound measures ~12.2cm x ~ 2.1cm x ~0.6cm. Tunneling is noted starting at 9 o'clock and goes to 12 o'clock measuring 1.2cm. Wound was cleansed with normal saline and patted dry. Applied puracol AG to granulated tissue and packed loosely to tunnel. Covered exposed tendon, bone and facia with oil emulsion gauze and then applied puracol ag to cover entire wound bed. Then applied Maxorb II just over wound bed. Secured dressing in place with dry 4x4 gauze pads, ABD pad, rolled gauze and elastic wrap. Cleansed deep tissue injury opening to full thickness skin loss to R heel with normal saline and patted dry. Sprayed intact DTI with skin barrier film and covered wound with maxorb II, secured with dry 4x4 gauze, rolled gauze and elastic wrap. Sprayed R 4th toe purple discoloration with skin barrier film spray and left open to air. Veronique Augustine [facility] Nov 28, 2017 18:16
[2017-11-28 20:00] VITALS: BP 112/62; PULSE 95; RESP 20; TEMP 98.3; O2SAT 97
[2017-11-28] MEDS: INSULIN DETEMIR 100 UNITS/ML VIAL SQ SCH (21:00)
[2017-11-29] MEDS: MORPHINE SULFATE 2 MG/ML SYRINGE IV PUSH PRN ×5 (01:11→20:48)
[2017-11-29 04:00] VITALS: BP 118/62; PULSE 93; RESP 16; TEMP 98; O2SAT 96
[2017-11-29] MEDS: HEPARIN SODIUM - SQ 10,000 UNITS/ML VIAL SQ SCH ×2 (05:29→17:00)
[2017-11-29] MEDS: oxyCODONE/ACETAMINOPHEN 7.5 MG/325 MG TAB PO PRN ×3 (05:29→18:22)
[2017-11-29 06:35] LABS: HEMATOCRIT 25.5 % (39.0-51.0); HEMOGLOBIN 8.5 GM/DL (13.0-17.0); MEAN CELL VOLUME 75.8 FL (80.0-100.0); MEAN CORPUSCULAR HEMOGLOBIN 25.2 PG (27.0-34.0); MEAN CORPUSCULAR HGB CONC 33.2 % (32.0-36.0); MEAN PLATELET VOLUME 7.6 FL (7.0-11.0); PLATELET COUNT 473 TH/MM3 (150-450); RED BLOOD COUNT 3.36 MIL/MM3 (4.50-5.90); RED CELL DISTRIBUTION WIDTH 17.3 % (11.6-17.2); WHITE BLOOD COUNT 9.3 TH/MM3 (4.0-11.0)
[2017-11-29 06:54] LABS: BICARBONATE 25.6 MEQ/L (21.0-32.0); CALCIUM 8.8 MG/DL (8.5-10.1); CREATININE 0.96 MG/DL (0.60-1.30)
[2017-11-29 08:00] VITALS: BP 132/70; PULSE 89; RESP 20; TEMP 98.3; O2SAT 96
[2017-11-29] MEDS: INSULIN ASPART SUPPLEMENTAL SCALE SQ SCH ×4 (08:00→20:47)
[2017-11-29] MEDS: LACTOBACILLUS ACIDOPHILUS TAB PO SCH ×2 (08:30→20:47)
[2017-11-29] MEDS: GABAPENTIN 300 MG CAP PO SCH ×3 (08:30→18:21)
[2017-11-29] MEDS: PANTOPRAZOLE SOD 40 MG DELAYED RELEASE TAB PO SCH (08:30)
[2017-11-29] MEDS: FUROSEMIDE 20 MG TAB PO SCH (08:30)
[2017-11-29] MEDS: INSULIN ASPART 1,000 UNITS/10 ML VIAL SQ SCH ×3 (08:36→18:22)
[2017-11-29] MEDS: SODIUM CHLORIDE 0.9% FLUSH 10 ML FLUSH IV FLUSH SCH ×2 (08:36→20:47)
[2017-11-29] MEDS: COLLAGENASE OINT 30 GM TUBE TOPICAL SCH (09:00)
--- NOTE | 2017-11-29 11:09 | HHI.PR ---
Subjective Remarks No new issues. Pain is controlled. Objective Vitals Vital Signs Date Time Temp Pulse Resp B/P (MAP) Pulse Ox O2 Delivery O2 Flow Rate FiO2 11/29/17 08:00 98.3 89 20 132/70 (90) 96 11/29/17 04:00 98.0 93 16 118/62 (80) 96 11/28/17 20:00 98.3 95 20 112/62 (79) 97 11/28/17 20:00 Room Air 11/28/17 18:17 18 11/28/17 17:19 20 11/28/17 16:00 98.7 97 19 101/58 (72) 95 11/28/17 12:00 97.9 86 20 131/74 (93) 90 I/O 11/28/17 11/28/17 11/28/17 11/29/17 11/29/17 11/29/17 07:00 15:00 23:00 07:00 15:00 23:00 Intake Total 240 ml 480 ml 1200 ml Output Total 1000 ml 800 ml Balance 240 ml -520 ml 400 ml Intake Oral 240 ml 480 ml 1200 ml Output Urine Total 1000 ml 800 ml # Voids 2 # Bowel Movements 1 1 Result Diagram: 11/29/17 0434 11/29/17 0434 Objective Remarks GENERAL: This is a well-nourished, well-developed patient, in no apparent distress. CARDIOVASCULAR: Normal rate and regular rhythm without murmurs, gallops, or rubs. RESPIRATORY: Good respiratory efforts. Breath sounds equal and clear to auscultation bilaterally. GASTROINTESTINAL: Abdomen soft, non-tender, non-distended. Normal active bowel sounds MUSCULOSKELETAL: Right foot has a wound VAC in place. NEURO: Alert & Oriented x4 to person, place, time, situation. Moves all ext x4 PSYCH: Appropriate mood and affect. Procedures 10/08/17 Right foot and ankle incision drainage, 5th metatarsal resection, 5th digit amputation 10/25/17 Incision and drainage Right foot/ankle abscess with bone biopsy right 4th metatarsal base; wound vac placement 11/07/17 EGD showing gastritis, esophagitis and hiatal hernia, Colonoscopy showing diverticulosis, internal and external hemorrhoids A/P Problem List: (1) Osteomyelitis of foot ICD Code: M86.9 - Osteomyelitis, unspecified (2) Leukocytosis ICD Code: D72.829 - Elevated white blood cell count, unspecified (3) Dehydration with hyponatremia ICD Code: E87.1 - Hypo-osmolality and hyponatremia (4) Acute kidney injury ICD Code: N17.9 - Acute kidney failure, unspecified (5) Sepsis ICD Code: A41.9 - Sepsis, unspecified organism Status: Acute (6) Diabetic foot ulcer ICD Code: E11.621 - Type 2 diabetes mellitus with foot ulcer; L97.509 - Non- pressure chronic ulcer of other part of unspecified foot with unspecified severity Status: Acute (7) Acute renal failure superimposed on stage 3 chronic kidney disease ICD Code: N17.9 - Acute kidney failure, unspecified; N18.3 - Chronic kidney disease, stage 3 (moderate) (8) Bacteremia due to Gram-positive bacteria ICD Code: R78.81 - Bacteremia (9) Postoperative anemia ICD Code: D64.9 - Anemia, unspecified Assessment and Plan 57-year-old male who presented with sepsis S. aureus Sepsis-- Secondary to diabetic foot infection, bacteremia, right foot osteomyelitis: Right foot osteomyelitis:S /P irrigation/debridement with wound vac placement 06/04. VAC removed 11/13. Status post incision and drainage, fifth metatarsal resection, fifth digit amputation on 10/08/17. Podiatry following -currently on Cubicvt, stop date 12/08/17. Infectious disease signed off. - Clarified with the patient that he can be out of bed with assistance. Nonweightbearing on the right lower extremity per podiatry. -Repeat wound culture per podiatry on 11/27/17. Podiatry considering graft. Wound care following. Right heel pressure ulcer - dry - off weight bearing - appreciate Podiatry recommendations Right knee effusion- -improved- continue to monitor - Appreciate orthopedic surgery recommendations. cultures are negative. Bilateral pleural effusion:-improved clinically Elevated BNP- clinically appears comfortable r/io underlying CHF- ? from high out failure from anemia - pulmonary - stable-respiratory [place]- no SOB- up and ambulating - Appreciate pulmonology recommendations. Status post right-sided thoracentesis. Cytology is negative for malignant cells. - 2D echo- EF 55% - S/P Lasix 20 mg IV 11/05 - Lasix 20 mg po daily Peripheral vascular disease: -Appreciate vascular surgery recommendations. Per vascular surgery, no surgical intervention is planned. Postoperative anemia: H and H stable S/P EGD/colonoscopy- gastritis, hemorrhoids - PPI Diabetes mellitus type 2: - good readings -Continue Levemir. Monitor Accu-Cheks and cover with sliding scale insulin. Continue preprandial insulin as well. Acute kidney injury superimposed on chronic kidney disease stage III- good urine output -Creatinine continues to improve. Stage one pressure ulcer. -Patient needs turning every 2 hours. PT working with patient. DVT prophylaxis: Heparin Discharge Planning Homeless, lives in the [facility], on IV antibiotic with completion date of 12/08/17 Problem Qualifiers (1) Sepsis: Qualified Codes: A41.9 - Sepsis, unspecified organism (2) Diabetic foot ulcer: Qualified Codes: E10.621 - Type 1 diabetes mellitus with foot ulcer; L97.419 - Non-pressure chronic ulcer of right heel and midfoot with unspecified severity Susan Lizarraga MD Nov 29, 2017 11:09
[2017-11-29 12:00] VITALS: BP 136/71; PULSE 89; RESP 20; TEMP 98.3; O2SAT 96
[2017-11-29 16:00] VITALS: BP 101/60; PULSE 88; RESP 20; TEMP 98.2; O2SAT 100
[2017-11-29] MEDS: SODIUM CHLORIDE 0.9% IV SCH (16:52)
[2017-11-29] MEDS: DAPTOMYCIN IV SCH (16:52)
[2017-11-29 20:00] VITALS: BP 115/58; PULSE 97; RESP 16; TEMP 98.5; O2SAT 96
[2017-11-29] MEDS: INSULIN DETEMIR 100 UNITS/ML VIAL SQ SCH (20:47)
[2017-11-29] MEDS: oxyCODONE/ACETAMINOPHEN 5 MG/325 MG TAB PO PRN (23:55)
[2017-11-29] MEDS: TEMAZEPAM 15 MG CAP PO PRN (23:57)
[2017-11-30] VITALS: BP 130/74; PULSE 95; RESP 18; TEMP 98.8; O2SAT 100
[2017-11-30] MEDS: MORPHINE SULFATE 2 MG/ML SYRINGE IV PUSH PRN ×5 (03:27→21:16)
[2017-11-30 04:00] VITALS: BP 134/63; PULSE 96; RESP 16; TEMP 97.8; O2SAT 100
[2017-11-30] MEDS: HEPARIN SODIUM - SQ 10,000 UNITS/ML VIAL SQ SCH ×2 (05:58→15:57)
[2017-11-30] MEDS: oxyCODONE/ACETAMINOPHEN 7.5 MG/325 MG TAB PO PRN ×3 (05:58→18:16)
[2017-11-30 08:00] VITALS: BP 94/60; PULSE 98; RESP 20; TEMP 97.3; O2SAT 97
[2017-11-30] MEDS: INSULIN ASPART SUPPLEMENTAL SCALE SQ SCH ×4 (08:00→21:15)
[2017-11-30] MEDS: COLLAGENASE OINT 30 GM TUBE TOPICAL SCH (09:00)
[2017-11-30] MEDS: FUROSEMIDE 20 MG TAB PO SCH (09:02)
[2017-11-30] MEDS: PANTOPRAZOLE SOD 40 MG DELAYED RELEASE TAB PO SCH (09:02)
[2017-11-30] MEDS: GABAPENTIN 300 MG CAP PO SCH ×3 (09:02→17:03)
[2017-11-30] MEDS: INSULIN ASPART 1,000 UNITS/10 ML VIAL SQ SCH ×3 (09:03→17:00)
[2017-11-30] MEDS: LACTOBACILLUS ACIDOPHILUS TAB PO SCH ×2 (09:03→21:14)
[2017-11-30] MEDS: SODIUM CHLORIDE 0.9% FLUSH 10 ML FLUSH IV FLUSH SCH ×2 (09:09→21:14)
--- NOTE | 2017-11-30 09:53 | HHI.PR ---
Subjective Remarks Patient reports he is feeling okay. Pain is controlled. Objective Vitals Vital Signs Date Time Temp Pulse Resp B/P (MAP) Pulse Ox O2 Delivery O2 Flow Rate FiO2 11/30/17 08:00 97.3 98 20 94/60 (71) 97 11/30/17 04:00 Room Air 11/30/17 04:00 97.8 96 16 134/63 (86) 100 11/30/17 00:00 Room Air 11/30/17 00:00 98.8 95 18 130/74 (92) 100 11/29/17 20:00 98.5 97 16 115/58 (77) 96 11/29/17 20:00 Room Air 11/29/17 16:00 98.2 88 20 101/60 (74) 100 11/29/17 12:00 98.3 89 20 136/71 (92) 96 I/O 11/29/17 11/29/17 11/29/17 11/30/17 11/30/17 11/30/17 07:00 15:00 23:00 07:00 15:00 23:00 Intake Total 1200 ml 720 ml 480 ml Output Total 800 ml 800 ml 950 ml Balance 400 ml -80 ml -470 ml Intake Oral 1200 ml 720 ml 480 ml Output Urine Total 800 ml 800 ml 950 ml # Bowel Movements 1 1 Result Diagram: 11/29/17 0434 11/29/17433 Objective Remarks GENERAL: This is a well-nourished, well-developed patient, in no apparent distress. CARDIOVASCULAR: Normal rate and regular rhythm without murmurs, gallops, or rubs. RESPIRATORY: Good respiratory efforts. Breath sounds equal and clear to auscultation bilaterally. GASTROINTESTINAL: Abdomen soft, non-tender, non-distended. Normal active bowel sounds MUSCULOSKELETAL: Right foot has a wound VAC in place. NEURO: Alert & Oriented x4 to person, place, time, situation. Moves all ext x4 PSYCH: Appropriate mood and affect. Procedures 10/08/17 Right foot and ankle incision drainage, 5th metatarsal resection, 5th digit amputation 10/25/17 Incision and drainage Right foot/ankle abscess with bone biopsy right 4th metatarsal base; wound vac placement 11/07/17 EGD showing gastritis, esophagitis and hiatal hernia, Colonoscopy showing diverticulosis, internal and external hemorrhoids A/P Problem List: (1) Osteomyelitis of foot ICD Code: M86.9 - Osteomyelitis, unspecified (2) Leukocytosis ICD Code: D72.829 - Elevated white blood cell count, unspecified (3) Dehydration with hyponatremia ICD Code: E87.1 - Hypo-osmolality and hyponatremia (4) Acute kidney injury ICD Code: N17.9 - Acute kidney failure, unspecified (5) Sepsis ICD Code: A41.9 - Sepsis, unspecified organism Status: Acute (6) Diabetic foot ulcer ICD Code: E11.621 - Type 2 diabetes mellitus with foot ulcer; L97.509 - Non- pressure chronic ulcer of other part of unspecified foot with unspecified severity Status: Acute (7) Acute renal failure superimposed on stage 3 chronic kidney disease ICD Code: N17.9 - Acute kidney failure, unspecified; N18.3 - Chronic kidney disease, stage 3 (moderate) (8) Bacteremia due to Gram-positive bacteria ICD Code: R78.81 - Bacteremia (9) Postoperative anemia ICD Code: D64.9 - Anemia, unspecified Assessment and Plan 57-year-old male who presented with sepsis S. aureus Sepsis-- Secondary to diabetic foot infection, bacteremia, right foot osteomyelitis: Right foot osteomyelitis:S /P irrigation/debridement with wound vac placement 06/04. VAC removed 11/13. Status post incision and drainage, fifth metatarsal resection, fifth digit amputation on 10/08/17. Podiatry following -currently on Cubicin, stop date 12/08/17. Infectious disease signed off. - Clarified with the patient that he can be out of bed with assistance. Nonweightbearing on the right lower extremity per podiatry. -Repeat wound culture per podiatry on 11/27/17. Podiatry considering graft. Wound care following. Follow cultures. Right heel pressure ulcer - dry - off weight bearing - appreciate Podiatry recommendations Right knee effusion- -improved- continue to monitor - Appreciate orthopedic surgery recommendations. cultures are negative. Bilateral pleural effusion:-improved clinically Elevated BNP- clinically appears comfortable r/io underlying CHF- ? from high out failure from anemia - pulmonary - stable-respiratory [place]- no SOB- up and ambulating - Appreciate pulmonology recommendations. Status post right-sided thoracentesis. Cytology is negative for malignant cells. - 2D echo- EF 55% - S/P Lasix 20 mg IV 11/05 - Lasix 20 mg po daily Peripheral vascular disease: -Appreciate vascular surgery recommendations. Per vascular surgery, no surgical intervention is planned. Postoperative anemia: H and H stable S/P EGD/colonoscopy- gastritis, hemorrhoids - PPI Diabetes mellitus type 2: - good readings -Continue Levemir. Monitor Accu-Cheks and cover with sliding scale insulin. Continue preprandial insulin as well. Acute kidney injury superimposed on chronic kidney disease stage III- good urine output -Creatinine continues to improve. Stage one pressure ulcer. -Patient needs turning every 2 hours. PT working with patient. DVT prophylaxis: Heparin Discharge Planning Homeless, lives in the [facility], on IV antibiotic with completion date of 12/08/17 Problem Qualifiers (1) Sepsis: Qualified Codes: A41.9 - Sepsis, unspecified organism (2) Diabetic foot ulcer: Qualified Codes: E10.621 - Type 1 diabetes mellitus with foot ulcer; L97.419 - Non-pressure chronic ulcer of right heel and midfoot with unspecified severity Susan Lizarraga MD Nov 30, 2017 09:53
[2017-11-30 12:00] VITALS: BP 111/56; PULSE 94; RESP 20; TEMP 99; O2SAT 97
[2017-11-30 16:00] VITALS: BP 117/52; PULSE 105; RESP 20; TEMP 98.6; O2SAT 96
[2017-11-30] MEDS: SODIUM CHLORIDE 0.9% IV SCH (16:22)
[2017-11-30] MEDS: DAPTOMYCIN IV SCH (16:22)
[2017-11-30 20:00] VITALS: BP 143/55; PULSE 108; RESP 16; TEMP 99.9; O2SAT 95
[2017-11-30] MEDS: INSULIN DETEMIR 100 UNITS/ML VIAL SQ SCH (21:15)
[2017-12-01] VITALS: BP 112/66; PULSE 103; RESP 18; TEMP 99; O2SAT 98
[2017-12-01] MEDS: oxyCODONE/ACETAMINOPHEN 7.5 MG/325 MG TAB PO PRN ×3 (00:34→20:30)
[2017-12-01] MEDS: MORPHINE SULFATE 2 MG/ML SYRINGE IV PUSH PRN ×4 (03:03→22:57)
[2017-12-01 04:00] VITALS: BP 127/68; PULSE 100; RESP 19; TEMP 99; O2SAT 97
[2017-12-01] MEDS: HEPARIN SODIUM - SQ 10,000 UNITS/ML VIAL SQ SCH ×2 (06:02→17:16)
[2017-12-01 08:00] VITALS: BP 137/76; PULSE 97; RESP 18; TEMP 98.1; O2SAT 99
[2017-12-01] MEDS: INSULIN ASPART SUPPLEMENTAL SCALE SQ SCH ×4 (08:00→20:30)
[2017-12-01] MEDS: INSULIN ASPART 1,000 UNITS/10 ML VIAL SQ SCH ×3 (08:00→17:00)
[2017-12-01] MEDS: LACTOBACILLUS ACIDOPHILUS TAB PO SCH ×2 (08:45→20:29)
[2017-12-01] MEDS: PANTOPRAZOLE SOD 40 MG DELAYED RELEASE TAB PO SCH (08:46)
[2017-12-01] MEDS: FUROSEMIDE 20 MG TAB PO SCH (08:46)
[2017-12-01] MEDS: GABAPENTIN 300 MG CAP PO SCH ×3 (08:46→17:16)
[2017-12-01] MEDS: SODIUM CHLORIDE 0.9% FLUSH 10 ML FLUSH IV FLUSH SCH ×2 (09:00→20:30)
--- NOTE | 2017-12-01 10:21 | HHI.PR ---
Subjective Remarks Patient reports he is feeling okay. Had some increased pain last night but is doing okay this morning with the pain medication. Afebrile. Objective Vitals Vital Signs Date Time Temp Pulse Resp B/P (MAP) Pulse Ox O2 Delivery O2 Flow Rate FiO2 12/01/17 08:00 98.1 97 18 137/76 (96) 99 12/01/17 04:00 Room Air 12/01/17 04:00 99.0 100 19 127/68 (87) 97 12/01/17 00:00 99.0 103 18 112/66 (81) 98 12/01/17 00:00 Room Air 11/30/17 20:00 99.9 108 16 143/55 (84) 95 11/30/17 20:00 Room Air 11/30/17 16:00 98.6 105 20 117/52 (73) 96 11/30/17 12:00 99.0 94 20 111/56 (74) 97 I/O 11/30/17 11/30/17 11/30/17 12/01/17 12/01/17 12/01/17 07:00 15:00 23:00 07:00 15:00 23:00 Intake Total 480 ml 480 ml 560 ml Output Total 950 ml 1000 ml 1350 ml Balance -470 ml -520 ml -790 ml Intake Oral 480 ml 480 ml 560 ml Output Urine Total 950 ml 1000 ml 1350 ml # Bowel Movements 1 1 1 Result Diagram: 11/29/17 0434 11/29/17 0434 Objective Remarks GENERAL: This is a well-nourished, well-developed patient, in no apparent distress. CARDIOVASCULAR: Normal rate and regular rhythm without murmurs, gallops, or rubs. RESPIRATORY: Good respiratory efforts. Breath sounds equal and clear to auscultation bilaterally. GASTROINTESTINAL: Abdomen soft, non-tender, non-distended. Normal active bowel sounds MUSCULOSKELETAL: Right foot is wrapped. Dressing appear intact. NEURO: Alert & Oriented x4 to person, place, time, situation. Moves all ext x4 PSYCH: Appropriate mood and affect. Procedures 10/08/17 Right foot and ankle incision drainage, 5th metatarsal resection, 5th digit amputation 10/25/17 Incision and drainage Right foot/ankle abscess with bone biopsy right 4th metatarsal base; wound vac placement 11/07/17 EGD showing gastritis, esophagitis and hiatal hernia, Colonoscopy showing diverticulosis, internal and external hemorrhoids A/P Problem List: (1) Osteomyelitis of foot ICD Code: M86.9 - Osteomyelitis, unspecified (2) Leukocytosis ICD Code: D72.829 - Elevated white blood cell count, unspecified (3) Dehydration with hyponatremia ICD Code: E87.1 - Hypo-osmolality and hyponatremia (4) Acute kidney injury ICD Code: N17.9 - Acute kidney failure, unspecified (5) Sepsis ICD Code: A41.9 - Sepsis, unspecified organism Status: Acute (6) Diabetic foot ulcer ICD Code: E11.621 - Type 2 diabetes mellitus with foot ulcer; L97.509 - Non- pressure chronic ulcer of other part of unspecified foot with unspecified severity Status: Acute (7) Acute renal failure superimposed on stage 3 chronic kidney disease ICD Code: N17.9 - Acute kidney failure, unspecified; N18.3 - Chronic kidney disease, stage 3 (moderate) (8) Bacteremia due to Gram-positive bacteria ICD Code: R78.81 - Bacteremia (9) Postoperative anemia ICD Code: D64.9 - Anemia, unspecified Assessment and Plan 57-year-old male who presented with sepsis S. aureus Sepsis-- Secondary to diabetic foot infection, bacteremia, right foot osteomyelitis: Right foot osteomyelitis:S /P irrigation/debridement with wound vac placement 06/04. VAC removed 11/13. Status post incision and drainage, fifth metatarsal resection, fifth digit amputation on 10/08/17. Podiatry following -currently on Cubicin, stop date 12/08/17. Infectious disease signed off. - Clarified with the patient that he can be out of bed with assistance. Nonweightbearing on the right lower extremity per podiatry. -Repeat wound culture per podiatry on 11/27/17 growing Kimberly. Will discuss with ID. Right heel pressure ulcer - dry - off weight bearing - appreciate Podiatry recommendations Right knee effusion- -improved- continue to monitor - Appreciate orthopedic surgery recommendations. cultures are negative. Bilateral pleural effusion:-improved clinically Elevated BNP- clinically appears comfortable r/io underlying CHF- ? from high out failure from anemia - pulmonary - stable-respiratory [place]- no SOB- up and ambulating - Appreciate pulmonology recommendations. Status post right-sided thoracentesis. Cytology is negative for malignant cells. - 2D echo- EF 55% - S/P Lasix 20 mg IV 11/05 - Lasix 20 mg po daily Peripheral vascular disease: -Appreciate vascular surgery recommendations. Per vascular surgery, no surgical intervention is planned. Postoperative anemia: H and H stable S/P EGD/colonoscopy- gastritis, hemorrhoids - PPI Diabetes mellitus type 2: - good readings -Continue Levemir. Monitor Accu-Cheks and cover with sliding scale insulin. Continue preprandial insulin as well. Acute kidney injury superimposed on chronic kidney disease stage III- good urine output -Creatinine continues to improve. Stage one pressure ulcer. -Patient needs turning every 2 hours. PT working with patient. DVT prophylaxis: Heparin Discharge Planning Homeless, lives in the [facility], on IV antibiotic with completion date of 12/08/17 Problem Qualifiers (1) Sepsis: Qualified Codes: A41.9 - Sepsis, unspecified organism (2) Diabetic foot ulcer: Qualified Codes: E10.621 - Type 1 diabetes mellitus with foot ulcer; L97.419 - Non-pressure chronic ulcer of right heel and midfoot with unspecified severity Susan Lizarraga MD Dec 01, 2017 10:21
[2017-12-01 12:08] VITALS: BP 124/68; PULSE 93; RESP 18; TEMP 98.1; O2SAT 99
[2017-12-01] MEDS: COLLAGENASE OINT 30 GM TUBE TOPICAL SCH (12:45)
--- NOTE | 2017-12-01 13:40 | PD.WCN.NOT ---
Wound Consult Description: Patient seen for follow up of wound to R lateral foot Communicated with: RN Tracy medina and Doctor Hobbs Recommendation: 1. Please order silver nitrate for application by Doctor or wound care nurse for the treatment of hypergranulated tissue with dressing changes. 2.Apply dressing as ordered by Doctor Hobbs 3.Apply skin prep to non blanchable purple discoloration to R lateral 4th toe with dressing changes 4. Apply skin prep to to intact non blanchable purple discoloration to R heel with dressing changes. Continue maxorb II to R heel with dry cover. 5. Dry 4x4 gauze pad to R medial dorsal foot for protection of closed incision line. 6. Please call [facility] for wound VAC completion. Additional Information: Patient seen on for dressing change with puracol ag following D/C of wound VAC. Patient final wound culture results with Moderate growth of kimberly albicans.Removed elastic wrap, rolled gauze, gauze oil emulsion, puracol AG, and Maxorb II n place to wound bed to reveal wound with ~40% red hypergranulated tissue, ~40% tendon, ~10% bone, and ~10% facia. Periwound is noted discoloration between 3 and 4 o'clock. Wound measures 12cm x 2.2cm x ~ 0.5cm. Tunneling is noted starting at 9 o'clock and goes to 12 o'clock measuring 1.2cm. Wound was cleansed with normal saline and patted dry. Applied puracol AG to granulated tissue and packed loosely to tunnel. Covered exposed tendon, bone and facia with oil emulsion gauze and then applied puracol ag to cover entire wound bed. Then applied Maxorb II just over wound bed. Secured dressing in place with dry 4x4 gauze pads, ABD pad, rolled gauze and elastic wrap. Cleansed deep tissue injury opening to full thickness skin loss to R heel with normal saline and patted dry. Sprayed intact DTI with skin barrier film and covered wound with maxorb II, secured with dry 4x4 gauze, rolled gauze and elastic wrap. Spoke with Doctor Hobbs regarding the foot wound and positive wound culture for Kimberly Albicans. Patient needs silver nitrate to treat hypergranulated areas within wound. Doctor Hobbs to speak with Doctor Milliron and infectious disease on this. Sprayed R 4th toe purple discoloration with skin barrier film spray and left open to air. Veronique Augustine [facility] Dec 01, 2017 13:40
[2017-12-01 16:00] VITALS: BP 112/64; PULSE 91; RESP 18; TEMP 98.7; O2SAT 100
[2017-12-01] MEDS: FLUCONAZOLE 200 MG TAB PO SCH (17:15)
[2017-12-01] MEDS: SODIUM CHLORIDE 0.9% IV SCH (17:16)
[2017-12-01] MEDS: DAPTOMYCIN IV SCH (17:16)
[2017-12-01 20:00] VITALS: BP 119/81; PULSE 98; RESP 16; TEMP 98.8; O2SAT 95
[2017-12-01] MEDS: INSULIN DETEMIR 100 UNITS/ML VIAL SQ SCH (20:30)
[2017-12-02] VITALS: BP 100/60; PULSE 91; RESP 16; TEMP 98.4; O2SAT 99
[2017-12-02] MEDS: oxyCODONE/ACETAMINOPHEN 7.5 MG/325 MG TAB PO PRN ×4 (02:53→20:56)
[2017-12-02 04:00] VITALS: BP 121/66; PULSE 90; RESP 16; TEMP 98.3; O2SAT 97
[2017-12-02] MEDS: HEPARIN SODIUM - SQ 10,000 UNITS/ML VIAL SQ SCH ×2 (05:31→15:59)
[2017-12-02] MEDS: MORPHINE SULFATE 2 MG/ML SYRINGE IV PUSH PRN ×5 (05:31→22:41)
[2017-12-02 08:00] VITALS: BP 122/72; PULSE 95; RESP 20; TEMP 98.3; O2SAT 97
[2017-12-02] MEDS: INSULIN ASPART 1,000 UNITS/10 ML VIAL SQ SCH ×3 (08:00→17:00)
[2017-12-02] MEDS: INSULIN ASPART SUPPLEMENTAL SCALE SQ SCH ×4 (08:00→20:59)
[2017-12-02] MEDS: GABAPENTIN 300 MG CAP PO SCH ×3 (08:41→17:52)
[2017-12-02] MEDS: PANTOPRAZOLE SOD 40 MG DELAYED RELEASE TAB PO SCH (08:41)
[2017-12-02] MEDS: FLUCONAZOLE 200 MG TAB PO SCH (08:42)
[2017-12-02] MEDS: LACTOBACILLUS ACIDOPHILUS TAB PO SCH ×2 (08:42→20:56)
[2017-12-02] MEDS: SODIUM CHLORIDE 0.9% FLUSH 10 ML FLUSH IV FLUSH SCH ×2 (09:00→20:57)
[2017-12-02] MEDS: COLLAGENASE OINT 30 GM TUBE TOPICAL SCH (09:00)
[2017-12-02] MEDS: FUROSEMIDE 20 MG TAB PO SCH (09:10)
--- NOTE | 2017-12-02 11:10 | HHI.PR ---
Subjective Remarks Patient reports he is feeling ok. No new changes. Objective Vitals Vital Signs Date Time Temp Pulse Resp B/P (MAP) Pulse Ox O2 Delivery O2 Flow Rate FiO2 12/02/17 08:00 98.3 95 20 122/72 (89) 97 12/02/17 04:00 Room Air 12/02/17 04:00 98.3 90 16 121/66 (84) 97 12/02/17 00:00 98.4 91 16 100/60 (73) 99 12/02/17 00:00 Room Air 12/01/17 20:00 Room Air 12/01/17 20:00 98.8 98 16 119/81 (94) 95 12/01/17 20:00 Room Air 12/01/17 18:37 100 Room Air 12/01/17 16:00 98.7 91 18 112/64 (80) 100 12/01/17 12:08 98.1 93 18 124/68 (86) 99 12/01/17 12:00 99 Room Air I/O 12/01/17 12/01/17 12/01/17 12/02/17 12/02/17 12/02/17 07:00 15:00 23:00 07:00 15:00 23:00 Intake Total 560 ml 720 ml Output Total 1350 ml 1600 ml 500 ml 400 ml Balance -790 ml -880 ml -500 ml -400 ml Intake Oral 560 ml 720 ml Output Urine Total 1350 ml 1600 ml 500 ml 400 ml # Bowel Movements 1 Result Diagram: 11/29/17 0434 11/29/17 0434 Objective Remarks GENERAL: This is a well-nourished, well-developed patient, in no apparent distress. CARDIOVASCULAR: Normal rate and regular rhythm without murmurs, gallops, or rubs. RESPIRATORY: Good respiratory efforts. Breath sounds equal and clear to auscultation bilaterally. GASTROINTESTINAL: Abdomen soft, non-tender, non-distended. Normal active bowel sounds MUSCULOSKELETAL: Right foot is wrapped. Dressing appear intact. NEURO: Alert & Oriented x4 to person, place, time, situation. Moves all ext x4 PSYCH: Appropriate mood and affect. Procedures 10/08/17 Right foot and ankle incision drainage, 5th metatarsal resection, 5th digit amputation 10/25/17 Incision and drainage Right foot/ankle abscess with bone biopsy right 4th metatarsal base; wound vac placement 11/07/17 EGD showing gastritis, esophagitis and hiatal hernia, Colonoscopy showing diverticulosis, internal and external hemorrhoids A/P Problem List: (1) Osteomyelitis of foot ICD Code: M86.9 - Osteomyelitis, unspecified (2) Leukocytosis ICD Code: D72.829 - Elevated white blood cell count, unspecified (3) Dehydration with hyponatremia ICD Code: E87.1 - Hypo-osmolality and hyponatremia (4) Acute kidney injury ICD Code: N17.9 - Acute kidney failure, unspecified (5) Sepsis ICD Code: A41.9 - Sepsis, unspecified organism Status: Acute (6) Diabetic foot ulcer ICD Code: E11.621 - Type 2 diabetes mellitus with foot ulcer; L97.509 - Non- pressure chronic ulcer of other part of unspecified foot with unspecified severity Status: Acute (7) Acute renal failure superimposed on stage 3 chronic kidney disease ICD Code: N17.9 - Acute kidney failure, unspecified; N18.3 - Chronic kidney disease, stage 3 (moderate) (8) Bacteremia due to Gram-positive bacteria ICD Code: R78.81 - Bacteremia (9) Postoperative anemia ICD Code: D64.9 - Anemia, unspecified Assessment and Plan 57-year-old male who presented with sepsis S. aureus Sepsis-- Secondary to diabetic foot infection, bacteremia, right foot osteomyelitis: Right foot osteomyelitis:S /P irrigation/debridement with wound vac placement 06/04. VAC removed. Status post incision and drainage, fifth metatarsal resection, fifth digit amputation on 10/08/17. Podiatry following - Currently on Cubicin, stop date 12/08/17. Infectious disease signed off. - Clarified with the patient that he can be out of bed with assistance. Nonweightbearing on the right lower extremity per podiatry. - Repeat wound culture per podiatry on 11/27/17 growing Kimberly. Patient started on Diflucan. Right heel pressure ulcer - dry - off weight bearing - appreciate Podiatry recommendations Right knee effusion- -improved- continue to monitor - Appreciate orthopedic surgery recommendations. cultures are negative. Bilateral pleural effusion:-improved clinically Elevated BNP- clinically appears comfortable r/io underlying CHF- ? from high out failure from anemia - pulmonary - stable-respiratory [place]- no SOB- up and ambulating - Appreciate pulmonology recommendations. Status post right-sided thoracentesis. Cytology is negative for malignant cells. - 2D echo- EF 55% - S/P Lasix 20 mg IV 11/05 - Lasix 20 mg po daily Peripheral vascular disease: -Appreciate vascular surgery recommendations. Per vascular surgery, no surgical intervention is planned. Postoperative anemia: H and H stable S/P EGD/colonoscopy- gastritis, hemorrhoids - PPI Diabetes mellitus type 2: - good readings -Continue Levemir. Monitor Accu-Cheks and cover with sliding scale insulin. Continue preprandial insulin as well. Acute kidney injury superimposed on chronic kidney disease stage III- good urine output -Creatinine continues to improve. Stage one pressure ulcer. -Patient needs turning every 2 hours. PT working with patient. DVT prophylaxis: Heparin Discharge Planning Homeless, lives in the [facility] [facility], on IV antibiotic with completion date of 12/08/17 Problem Qualifiers (1) Sepsis: Qualified Codes: A41.9 - Sepsis, unspecified organism (2) Diabetic foot ulcer: Qualified Codes: E10.621 - Type 1 diabetes mellitus with foot ulcer; L97.419 - Non-pressure chronic ulcer of right heel and midfoot with unspecified severity Susan Lizarraga MD Dec 02, 2017 11:09
[2017-12-02 12:00] VITALS: BP 123/58; PULSE 92; RESP 20; TEMP 97.2; O2SAT 98
[2017-12-02] MEDS: DAPTOMYCIN IV SCH (15:59)
[2017-12-02] MEDS: SODIUM CHLORIDE 0.9% IV SCH (15:59)
[2017-12-02 16:00] VITALS: BP 126/66; PULSE 92; RESP 20; TEMP 98.6; O2SAT 97
[2017-12-02 20:00] VITALS: BP 110/68; PULSE 95; RESP 20; TEMP 98.8; O2SAT 97
[2017-12-02] MEDS: INSULIN DETEMIR 100 UNITS/ML VIAL SQ SCH (20:59)
[2017-12-03] VITALS: BP 127/74; PULSE 101; RESP 20; TEMP 98.5; O2SAT 98
[2017-12-03 04:00] VITALS: BP 124/68; PULSE 96; RESP 20; TEMP 98; O2SAT 96
[2017-12-03] MEDS: HEPARIN SODIUM - SQ 10,000 UNITS/ML VIAL SQ SCH ×2 (04:13→16:19)
[2017-12-03] MEDS: oxyCODONE/ACETAMINOPHEN 7.5 MG/325 MG TAB PO PRN ×3 (04:13→18:05)
[2017-12-03] MEDS: INSULIN ASPART SUPPLEMENTAL SCALE SQ SCH ×4 (07:38→21:33)
[2017-12-03 08:05] VITALS: BP 118/59; PULSE 90; RESP 18; TEMP 98.1; O2SAT 96
[2017-12-03] MEDS: PANTOPRAZOLE SOD 40 MG DELAYED RELEASE TAB PO SCH (09:06)
[2017-12-03] MEDS: SODIUM CHLORIDE 0.9% FLUSH 10 ML FLUSH IV FLUSH SCH ×2 (09:07→20:43)
[2017-12-03] MEDS: LACTOBACILLUS ACIDOPHILUS TAB PO SCH ×2 (09:07→21:32)
[2017-12-03] MEDS: FUROSEMIDE 20 MG TAB PO SCH (09:07)
[2017-12-03] MEDS: GABAPENTIN 300 MG CAP PO SCH ×3 (09:07→17:38)
[2017-12-03] MEDS: FLUCONAZOLE 200 MG TAB PO SCH (09:07)
[2017-12-03] MEDS: INSULIN ASPART 1,000 UNITS/10 ML VIAL SQ SCH ×3 (09:08→16:19)
[2017-12-03] MEDS: COLLAGENASE OINT 30 GM TUBE TOPICAL SCH (09:08)
[2017-12-03] MEDS: MORPHINE SULFATE 2 MG/ML SYRINGE IV PUSH PRN ×4 (09:57→20:43)
--- NOTE | 2017-12-03 10:59 | HHI.IDPN ---
Subjective Subjective Remarks Patient seen and examined with Dr. Quinteros Reconsult for infection disease requested by Dr. Hobbs for reevaluation of right fifth toe osteomyelitis with associated cellulitis, gram-positive bacteremia and sepsis with recent wound culture positive for Kimberly Albicans. Mr. Braxton is a 57-year-old male with past medical history significant for diabetes type 2, prior diabetic foot ulcer treated in October 2016 thereafter was hospitalized from May 08, 2017 to May 29, 2017 due to foot ulcer. During that hospitalization patient underwent surgical debridement with wound VAC placement. Patient reports that he was seen by Dr. Pritchard during that admission. Patient reports that he was discharged on IV ceftriaxone using a PICC line. Patient had home health care visits him and continue to receive wound VAC changes at home. He also was subsequently seen at wound care clinic for ongoing wound care as well as [facility] for his primary care needs. Patient reports that his medications were recently adjusted and a new insulin was introduced. Patient reports that he was diagnosed with a possible staph or strep infection and has been on oral Bactrim approximately 2 weeks prior to admission. Due to worsening foot infection as well as possible reaction to the new insulin patient presented to the emergency department [facility]. Patient reports that he was having fevers, chills, loss of appetite and diarrhea for the past 2 days associated with frequent urination. Patient denies any dysuria. He reports dizziness and reported history of falls 3 days ago while on the toilet. Patient's reports that she was unaware of this history of fall. He denies any head injury. Patient reports hitting his right foot and shoulder but that he was able to get off the floor by himself. Patient had a sepsis workup initiated on admission. Wound cultures are positive for strep as well as blood cultures are now positive for gram-positive likely strep. Repeat blood cultures have been ordered. Podiatry is seeing the patient and there is a plan for surgical intervention and possible amputation of the involved digit. Infectious disease is consulted for evaluation and management of right fifth toe osteomyelitis with associated cellulitis, gram-positive bacteremia and sepsis. Notes reviewed patient has been afebrile he complains of chills patient reports worsening right foot pain for the past 24 hours and is very upset regarding his last dressing change as it "wasn't done correctly" denies any rash denies any N/V denies any dysuria or diarrhea WBC WNL Wound cx positive for Kimberly Albicans 10/31 BCX with no growth Antibiotics IV DAPTOMYCIN PO DIFLUCAN Current Medications Medications (Trade) Dose Ordered Sig/Anna Route Start Time Stop Time Status Last Admin (NS Flush) 2 ml UNSCH PRN IV FLUSH 10/07/17 16:45 11/20/17 06:46 (NS Flush) 2 ml BID IV FLUSH 10/07/17 21:00 12/03/17 09:07 (Narcan Inj) 0.4 mg UNSCH PRN IV PUSH 10/07/17 16:45 (D50w (Vial) Inj) 50 ml UNSCH PRN IV PUSH 10/08/17 10:30 (Glucagon Inj) 1 mg UNSCH PRN OTHER 10/08/17 10:30 (Lactinex) 1 tab Q12HR PO 10/08/17 21:00 12/03/17 09:07 (NovoLOG INJ) 5 units TIDAC SQ 10/12/17 08:00 12/03/17 09:08 (Levemir Inj) 15 units HS SQ 10/12/17 21:00 12/02/17 20:59 (Restoril) 15 mg HS PRN PO 10/13/17 12:45 11/29/17 23:57 (Tylenol) 500 mg Q4H PRN PO 10/13/17 13:15 11/25/17 00:14 (Santyl Oint) 1 applic DAILY TOPICAL 10/22/17 12:00 12/03/17 09:08 (Neurontin) 600 mg TID PO 10/23/17 18:00 12/03/17 09:07 Daptomycin 640 mg/ Sodium Chloride 100 ml @ 200 mls/hr Q24H IV 10/31/17 16:00 12/08/17 15:59 12/02/17 15:59 (Morphine Inj) 1 mg Q4H PRN IV PUSH 11/04/17 08:30 12/03/17 09:57 (Lasix) 20 mg DAILY PO 11/06/17 09:00 12/03/17 09:07 (Protonix) 40 mg DAILY PO 11/09/17 09:00 12/03/17 09:06 (NovoLOG SUPPLEMENTAL SCALE) 1 ACHS SLIDING SCALE SQ 11/08/17 17:00 12/01/17 17:00 (Percocet 5-325 Mg) 1 tab Q6H PRN PO 11/12/17 11:15 11/29/17 23:55 (Percocet 7.5-325 Mg) 1 tab Q6H PRN PO 11/12/17 11:15 12/03/17 04:13 (Morphine Inj) 1 mg BID PRN IV PUSH 11/14/17 08:45 12/02/17 16:00 (Heparin Inj) 5,000 units Q12H SQ 11/28/17 17:00 12/03/17 04:13 (Diflucan) 200 mg DAILY PO 12/01/17 15:30 12/03/17 09:07 Lines Line sites with no e.o infection Past Medical History Past Medical History DM II Right foot ulcer with possible osteomyelitis in the past. Has received IV antibiotics long-term using a PICC line in the past. Renal stones Past Surgical History Right foot debridement of wound removal of kidney stones Tonsillitis (Ami Prado) Allergies: Coded Allergies: No Known Allergies (Unverified Allergy, Unknown, 11/28/17) Uncoded Allergies: malian dressing (Allergy, Severe, Anaphylaxis, 10/07/17) Objective . Vital Signs Date Time Temp Pulse Resp B/P (MAP) Pulse Ox O2 Delivery O2 Flow Rate FiO2 12/03/17 08:05 98.1 90 18 118/59 (78) 96 12/03/17 07:00 Room Air 2.00 12/03/17 04:00 98.0 96 20 124/68 (86) 96 12/03/17 00:00 98.5 101 20 127/74 (91) 98 12/02/17 21:15 Room Air 12/02/17 20:00 98.8 95 20 110/68 (82) 97 12/02/17 16:00 98.6 92 20 126/66 (86) 97 12/02/17 14:43 98 Room Air 12/02/17 12:00 97.2 92 20 123/58 (79) 98 . Microbiology Date/Time Source Procedure Growth Status 10/31/17 14:46 Blood Peripheral Aerobic Blood Culture - Final NO GROWTH IN 5 DAYS Complete 10/31/17 14:46 Blood Peripheral Anaerobic Blood Culture - Final NO GROWTH IN 5 DAYS Complete 10/20/17 14:25 Fluid Pleural Fluid Fungal Smear - Final NO FUNGAL ELEMENTS SEEN. Complete 10/20/17 14:25 Fluid Pleural Fluid Fungal Culture - Final NO GROWTH IN 4 WEEKS Complete 11/05/17 10:00 Stool Stool Stool Occult Blood (MILA) - Final HEMOCCULT NEGATIVE Complete 11/27/17 17:45 Wound Foot Gram Stain - Final Complete 11/27/17 17:45 Wound Culture - Final Kimberly Albicans Complete Laboratory Tests Test 12/02/17 06:50 Total Creatine Kinase 47 U/L Imaging Chest X-Ray 10/30/17 0000 Signed Impressions: Service Date/Time: October 13:55 - CONCLUSION: 1. Consolidation of the left lower lobe. This would be concerning for a pneumonia. 2. Focal area of infiltrate seen in the left perihilar region. Raghavendra Lim MD Foot X-Ray 10/23/17 0000 Signed Impressions: Service Date/Time: October 17:15 - CONCLUSION: 1. 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 Lupillo Webster MD Chest X-Ray 10/22/17 0000 Signed Impressions: Service Date/Time: Sunday, October 22, 2017 09:07 - CONCLUSION: 1. Bilateral infiltrates and effusion. The exam has worsen when compared to previous dated 10/20/17. Raghavendra Lim MD Thoracentesis Ultrasound 10/20/17 0600 Signed Impressions: Service Date/Time: Friday, October 20, 2017 13:03 - CONCLUSION: Uncomplicated ultrasound guided thoracentesis. Smooth Saucedo MD Chest Ultrasound 10/17/17 0000 Signed Impressions: Service Date/Time: Tuesday, October 17, 2017 20:24 - CONCLUSION: A moderate to large right pleural effusion is confirmed sonographically and marked for thoracentesis. Hector Pierre MD Chest CT 10/16/17 0000 Signed Impressions: Service Date/Time: October 20:14 - CONCLUSION: Moderate-sized bilateral pleural effusions with adjacent compressive atelectasis and/or pneumonia. Scattered increased interstitial infiltrates within the perihilar regions and upper lobes bilaterally raising the possibility of pulmonary vascular congestion. Cardiomegaly and coronary artery calcifications are noted. Mild pretracheal and AP window mediastinal lymphadenopathy which is nonspecific. Degenerative changes and mild scoliosis of the thoracic spine. Hector Pierre MD Aspiration 10/16/17 0000 Signed Impressions: Service Date/Time: October 15:48 - CONCLUSION: Uncomplicated aspiration as above. Chetan Escobedo MD Abdomen/Pelvis CT 10/16/17 0000 Signed Impressions: Service Date/Time: October 20:14 - CONCLUSION: 1. Moderate-sized bilateral pleural effusions with adjacent consolidations consistent with atelectasis and/or pneumonia. 2. Tiny calcified nonobstructing bilateral renal calculi. 3. Mild hepatosplenomegaly. 4. Uncomplicated colonic diverticulosis. 5. Minimal free fluid within the pelvis. 6. Streakiness and fluid within the bilateral retroperitoneum inferior to the kidneys and extending into the presacral region. 7. Degenerative changes and scoliosis of the thoracolumbar spine. Hector Pierre MD Knee X-Ray 10/15/17 0000 Signed Impressions: Service Date/Time: Sunday, October 15, 2017 15:26 - CONCLUSION: Large joint effusion otherwise negative. Tu Lim MD FACR Carotid Artery Ultrasound 10/13/17 0000 Signed Impressions: Service Date/Time: Friday, October 13, 2017 16:12 - CONCLUSION: No evidence of flow-limiting carotid stenosis. Wm Riley MD Aorta w/Runoff CTA 10/13/17 0000 Signed Impressions: Service Date/Time: Friday, October 13, 2017 22:41 - CONCLUSION: 1. No aortic occlusive disease. 2. No significant iliac inflow stenosis. 3. No significant outflow stenosis. 4. Diffuse bilateral runoff disease with heavily calcified tibial arteries and significant venous contamination precluding patency evaluation beyond the very proximal calf. 5. Small to moderate bilateral pleural effusions with associated airspace disease at the lung bases, presumably atelectasis. 6. Trace free fluid in the deep pelvis. 7. Ancillary findings include hepatic steatosis, nonobstructing punctate calyceal calculus in the inferior pole of the left kidney and small suprapatellar right joint effusion. Lupillo Webster MD Foot MRI 10/12/17 0000 Signed Impressions: Service Date/Time: Thursday, October 12, 2017 08:31 - CONCLUSION: 1. No areas of suspected osteomyelitis. 2. Superficial soft tissue swelling over the third and fourth metatarsals. There is also some edema within the plantar musculature. Wm Dupree MD Ankle MRI 10/11/17 0000 Signed Impressions: Service Date/Time: Wednesday, October 11, 2017 09:41 - CONCLUSION: 1. No definite areas of osteomyelitis. There is some edema within the lateral cuboid adjacent to the suspected surgical defect which is likely reactive. T1 signal is maintained. 2. Multiple areas of focal edema within the midfoot mainly related to the subarticular regions likely related to underlying arthritic change. 3. The patient appears to be status post resection of the fifth metatarsal with post surgical change at the lateral hind and midfoot and a small focus of air seen adjacent to the calcaneus. Wm Dupree MD Physical Exam GENERAL: This is a thin, chronically ill appearing male patient, awake and alert, INAD SKIN: Cool and dry. No generalized rash HEAD: Atraumatic. Normocephalic. EYES: Pupils equal round and reactive. EOM full and intact. No scleral icterus. No injection or drainage. ENT: Moist mucosa, no lesions, no oral thrush NECK: Trachea midline. CARDIOVASCULAR: Regular rate and rhythm. RESPIRATORY: Clear to auscultation. Nonlabored. GASTROINTESTINAL: Abdomen soft, non-tender, nondistended. MUSCULOSKELETAL: Right foot in dressing, removed revealing wound along lateral aspect with exposed tendon and bone with granulation tissue present, packing noted distally. Right heel necrotic. Right 4th digit with purplish discoloration. NEUROLOGICAL: Awake and alert. Moves all extremities spontaneously. Nonfocal exam. Normal speech. PSYCHIATRIC: Calm and cooperative. Anxious in regards to his wound care, very preoccupied with when wound care team will be in to apply silver nitrate and redress his wound. IV line sites with no evidence of infection. (Ami Prado) Assessment & Plan Remarks Sepsis present on admission Strep bacteremia secondary to right foot osteomyelitis and cellulitis Staph MSSA bacteremia high grade. Strep not AB,D and Staph infection Right foot fifth MPJ osteomyelitis Right foot cellulitis -s/p removal of wound vac -repeat Wound cx positive for Kimberly Albicans, started on po Diflucan -per wound care note 12/01,~40% red hypergranulated tissue, ~40% tendon, ~10% bone, and ~10% facia, tunneling noted at 9 o'clock and goes to 12 o'clock measuring 1.2cm Pneumonia with bilateral pleural effusions ? HCAP vs septic emboli. Right knee septic arthritis. Diabetes type 2 uncontrolled Acute renal failure: Sepsis, prerenal: improving Fevers, not as high - non-localizing - ?drug fever Recommendations: Continue Cubicin (stop date: 12/08/2017 in chart) CBC with diff, CMP, CRP and Serum CK every Friday while on Cubicin. Continue on Diflucan Continue to monitor temps Monitor progress (Ami Prado) Remarks The exam, history, and the medical decision-making described in the above note were completed with the assistance of the mid-level provider. I reviewed and agree with the findings presented. I attest that I had a [id number] encounter with the patient on the same day, and personally performed and documented my assessment and findings in the medical record. Patient seen and examined independently Reconsult placed for Kimberly superinfection at the surgical wound site Explained to the patient that this is likely a superficial overgrowth but will go ahead and treat with oral Diflucan. Also discussed with patient that I had a discussion with Dr. Handy podiatry on who will be performing a bedside cleaning of the wound thoroughly with chlorhexidine swab to help reduce the burden of Kimberly albicans locally. Patient informs me that there is a plan for a skin flap at some point. Recommended that given Kimberly overgrowth would not be a good idea depressed skin flap at the present time. Clear to auscultation bilaterally PICC line site looks okay Continue Cubicin stop date December 08, 2017 Continue Diflucan oral We will follow along with you. (Chuyita Quinteros MD) Ami Prado Dec 03, 2017 10:59 Chuyita Quinteros MD Dec 03, 2017 17:17
[2017-12-03 12:05] VITALS: BP 120/60; PULSE 92; RESP 18; TEMP 98; O2SAT 97
--- NOTE | 2017-12-03 12:52 | HHI.PR ---
Subjective Remarks Reports severe pain after dressing change today. Asking for another dose of breakthrough Morphine. Objective Vitals Vital Signs Date Time Temp Pulse Resp B/P (MAP) Pulse Ox O2 Delivery O2 Flow Rate FiO2 12/03/17 08:05 98.1 90 18 118/59 (78) 96 12/03/17 07:00 Room Air 2.00 12/03/17 04:00 98.0 96 20 124/68 (86) 96 12/03/17 00:00 98.5 101 20 127/74 (91) 98 12/02/17 21:15 Room Air 12/02/17 20:00 98.8 95 20 110/68 (82) 97 12/02/17 16:00 98.6 92 20 126/66 (86) 97 12/02/17 14:43 98 Room Air I/O 12/02/17 12/02/17 12/02/17 12/03/17 12/03/17 12/03/17 07:00 15:00 23:00 07:00 15:00 23:00 Intake Total 720 ml 240 ml 800 ml Output Total 500 ml 1500 ml 600 ml 1000 ml Balance -500 ml -780 ml -360 ml -200 ml Intake Oral 720 ml 240 ml 800 ml Output Urine Total 500 ml 1500 ml 600 ml 1000 ml # Bowel Movements 0 Result Diagram: 11/29/17 0434 11/29/17 043 Objective Remarks GENERAL: This is a well-nourished, well-developed patient, in no apparent distress. CARDIOVASCULAR: Normal rate and regular rhythm without murmurs, gallops, or rubs. RESPIRATORY: Good respiratory efforts. Breath sounds equal and clear to auscultation bilaterally. GASTROINTESTINAL: Abdomen soft, non-tender, non-distended. Normal active bowel sounds MUSCULOSKELETAL: Right foot is wrapped. Dressing appear intact. NEURO: Alert & Oriented x4 to person, place, time, situation. Moves all ext x4 PSYCH: Appropriate mood and affect. Procedures 10/08/17 Right foot and ankle incision drainage, 5th metatarsal resection, 5th digit amputation 10/25/17 Incision and drainage Right foot/ankle abscess with bone biopsy right 4th metatarsal base; wound vac placement 11/07/17 EGD showing gastritis, esophagitis and hiatal hernia, Colonoscopy showing diverticulosis, internal and external hemorrhoids A/P Problem List: (1) Osteomyelitis of foot ICD Code: M86.9 - Osteomyelitis, unspecified (2) Leukocytosis ICD Code: D72.829 - Elevated white blood cell count, unspecified (3) Dehydration with hyponatremia ICD Code: E87.1 - Hypo-osmolality and hyponatremia (4) Acute kidney injury ICD Code: N17.9 - Acute kidney failure, unspecified (5) Sepsis ICD Code: A41.9 - Sepsis, unspecified organism Status: Acute (6) Diabetic foot ulcer ICD Code: E11.621 - Type 2 diabetes mellitus with foot ulcer; L97.509 - Non- pressure chronic ulcer of other part of unspecified foot with unspecified severity Status: Acute (7) Acute renal failure superimposed on stage 3 chronic kidney disease ICD Code: N17.9 - Acute kidney failure, unspecified; N18.3 - Chronic kidney disease, stage 3 (moderate) (8) Bacteremia due to Gram-positive bacteria ICD Code: R78.81 - Bacteremia (9) Postoperative anemia ICD Code: D64.9 - Anemia, unspecified Assessment and Plan 57-year-old male who presented with sepsis S. aureus Sepsis-- Secondary to diabetic foot infection, bacteremia, right foot osteomyelitis: Right foot osteomyelitis:S /P irrigation/debridement with wound vac placement 06/04. VAC removed. Status post incision and drainage, fifth metatarsal resection, fifth digit amputation on 10/08/17. Podiatry following - Currently on Cubicin, stop date 12/08/17. Infectious disease signed off. - Clarified with the patient that he can be out of bed with assistance. Nonweightbearing on the right lower extremity per podiatry. - Repeat wound culture per podiatry on 11/27/17 growing Kimberly. Patient started on Diflucan. - Give one dose of IV morphine 2 mg X1 Right heel pressure ulcer - dry - off weight bearing - appreciate Podiatry recommendations Right knee effusion- -improved- continue to monitor - Appreciate orthopedic surgery recommendations. cultures are negative. Bilateral pleural effusion:-improved clinically Elevated BNP- clinically appears comfortable r/io underlying CHF- ? from high out failure from anemia - pulmonary - stable-respiratory [place]- no SOB- up and ambulating - Appreciate pulmonology recommendations. Status post right-sided thoracentesis. Cytology is negative for malignant cells. - 2D echo- EF 55% - S/P Lasix 20 mg IV 11/05 - Lasix 20 mg po daily Peripheral vascular disease: -Appreciate vascular surgery recommendations. Per vascular surgery, no surgical intervention is planned. Postoperative anemia: H and H stable S/P EGD/colonoscopy- gastritis, hemorrhoids - PPI Diabetes mellitus type 2: - good readings -Continue Levemir. Monitor Accu-Cheks and cover with sliding scale insulin. Continue preprandial insulin as well. Acute kidney injury superimposed on chronic kidney disease stage III- good urine output -Creatinine continues to improve. Stage one pressure ulcer. -Patient needs turning every 2 hours. PT working with patient. DVT prophylaxis: Heparin Discharge Planning Homeless, lives in the [facility], on IV antibiotic with completion date of 12/08/17 Problem Qualifiers (1) Sepsis: Qualified Codes: A41.9 - Sepsis, unspecified organism (2) Diabetic foot ulcer: Qualified Codes: E10.621 - Type 1 diabetes mellitus with foot ulcer; L97.419 - Non-pressure chronic ulcer of right heel and midfoot with unspecified severity Susan Lizarraga MD Dec 03, 2017 12:52
[2017-12-03] MEDS ORDERED: MORPHINE SULFATE 2 MG/ML SYRINGE IV PUSH ONE (13:00)
[2017-12-03] MEDS: DAPTOMYCIN IV SCH (15:49)
[2017-12-03] MEDS: SODIUM CHLORIDE 0.9% IV SCH (15:49)
[2017-12-03 16:05] VITALS: BP 120/60; PULSE 88; RESP 18; TEMP 98; O2SAT 97
[2017-12-03 20:00] VITALS: BP 121/58; PULSE 96; RESP 18; TEMP 98.4; O2SAT 99
--- NOTE | 2017-12-03 20:51 | PD.POD ---
Subjective Podiatric Problems Right foot /ankle infection, s/p I&D R foot/ankle with 5th metatarsal and toe resection Dede 10/08/17 s/p I&D with wound vac right foot/ankle Popelka 10/15/17 s/p I&D with bone biopsy right 4th metatarsal Rozina 10/25/17 Pain score: 3 Past Med/Surg/Social History Past Medical History Endocrine: REPORTS HX OF: Diabetes mellitus Genitourinary: REPORTS HX OF: Other history (Kidney stones ) Past Surgical History Musculoskeletal: REPORTS HX OF: Other musculoskeletal srg (Right foot 5th metatarsal I&D) Social History Smoking Status: Former Smoker Objective Vital Signs Vital Signs Date Time Temp Pulse Resp B/P (MAP) Pulse Ox O2 Delivery O2 Flow Rate FiO2 12/03/17 20:00 98.4 96 18 121/58 (79) 99 12/03/17 16:05 98.0 88 18 120/60 (80) 97 12/03/17 12:05 98.0 92 18 120/60 (80) 97 12/03/17 08:05 98.1 90 18 118/59 (78) 96 12/03/17 07:00 Room Air 2.00 12/03/17 04:00 98.0 96 20 124/68 (86) 96 12/03/17 00:00 98.5 101 20 127/74 (91) 98 12/02/17 21:15 Room Air Coded Allergies: No Known Allergies (Unverified Allergy, Unknown, 11/28/17) Uncoded Allergies: icelandic dressing (Allergy, Severe, Anaphylaxis, 10/07/17) Physical Exam Remarks Right lateral foot with exposed peroneal tendons and bone to lateral midfoot. Hypergranulation tissue noted both proximal and distal aspects of incision line. No lee purulence noted. No foul odor noted. Assessment & Plan A/P Right foot /ankle infection, s/p I&D R foot/ankle with 5th metatarsal and toe resection Dede 10/08/17 s/p I&D with wound vac right foot/ankle Popelka 10/15/17 s/p I&D right foot/ankle with bone biopsy right 4th metatarsal Ok to proceed with silver nitrate to hypergranulation tissue areas. Cleansed wound with chlorhexidine scrub today and re-dressed. Bone and tendon still exposed. Continue local wound care for now. Heidi Handy DPM Dec 03, 2017 20:51
[2017-12-03] MEDS: INSULIN DETEMIR 100 UNITS/ML VIAL SQ SCH (21:33)
[2017-12-04] VITALS: BP 125/68; PULSE 93; RESP 20; TEMP 98.7; O2SAT 99
[2017-12-04] MEDS: oxyCODONE/ACETAMINOPHEN 7.5 MG/325 MG TAB PO PRN ×4 (00:06→22:24)
[2017-12-04] MEDS: SODIUM CHLORIDE 0.9% FLUSH 10 ML FLUSH IV FLUSH PRN (02:49)
[2017-12-04] MEDS: MORPHINE SULFATE 2 MG/ML SYRINGE IV PUSH PRN ×5 (02:49→23:21)
[2017-12-04 04:00] VITALS: BP 120/69; PULSE 89; RESP 19; TEMP 98.5; O2SAT 99
[2017-12-04] MEDS: HEPARIN SODIUM - SQ 10,000 UNITS/ML VIAL SQ SCH ×2 (06:12→18:16)
[2017-12-04 07:59] VITALS: BP 105/62; PULSE 90; RESP 18; TEMP 97.9; O2SAT 99
[2017-12-04] MEDS: INSULIN ASPART SUPPLEMENTAL SCALE SQ SCH ×4 (08:00→22:25)
[2017-12-04] MEDS: COLLAGENASE OINT 30 GM TUBE TOPICAL SCH (09:00)
[2017-12-04] MEDS: SODIUM CHLORIDE 0.9% FLUSH 10 ML FLUSH IV FLUSH SCH ×2 (09:00→21:00)
[2017-12-04] MEDS: PANTOPRAZOLE SOD 40 MG DELAYED RELEASE TAB PO SCH (09:47)
[2017-12-04] MEDS: INSULIN ASPART 1,000 UNITS/10 ML VIAL SQ SCH ×3 (09:47→18:23)
[2017-12-04] MEDS: GABAPENTIN 300 MG CAP PO SCH ×3 (09:47→18:15)
[2017-12-04] MEDS: FLUCONAZOLE 200 MG TAB PO SCH (09:47)
[2017-12-04] MEDS: LACTOBACILLUS ACIDOPHILUS TAB PO SCH ×2 (09:47→22:24)
[2017-12-04] MEDS: FUROSEMIDE 20 MG TAB PO SCH (09:48)
[2017-12-04 12:00] VITALS: BP 119/66; PULSE 95; RESP 16; TEMP 98.8; O2SAT 100
[2017-12-04] MEDS: DAPTOMYCIN IV SCH (15:13)
[2017-12-04] MEDS: SODIUM CHLORIDE 0.9% IV SCH (15:13)
--- NOTE | 2017-12-04 15:18 | HHI.PR ---
Subjective Remarks Patient reports he is doing okay. No new issues. Objective Vitals Vital Signs Date Time Temp Pulse Resp B/P (MAP) Pulse Ox O2 Delivery O2 Flow Rate FiO2 12/04/17 12:00 98.8 95 16 119/66 (83) 100 12/04/17 07:59 97.9 90 18 105/62 (76) 99 12/04/17 04:00 98.5 89 19 120/69 (86) 99 12/04/17 04:00 Room Air 12/04/17 00:00 Room Air 12/04/17 00:00 98.7 93 20 125/68 (87) 99 12/03/17 20:00 98.4 96 18 121/58 (79) 99 12/03/17 20:00 Room Air 12/03/17 16:05 98.0 88 18 120/60 (80) 97 I/O 12/03/17 12/03/17 12/03/17 12/04/17 12/04/17 12/04/17 07:00 15:00 23:00 07:00 15:00 23:00 Intake Total 800 ml 420 ml 1125 ml Output Total 1000 ml 1250 ml Balance -200 ml 420 ml -125 ml Intake Oral 800 ml 420 ml 1125 ml Output Urine Total 1000 ml 1250 ml # Voids 4 # Bowel Movements 0 1 1 Objective Remarks GENERAL: This is a well-nourished, well-developed patient, in no apparent distress. CARDIOVASCULAR: Normal rate and regular rhythm without murmurs, gallops, or rubs. RESPIRATORY: Good respiratory efforts. Breath sounds equal and clear to auscultation bilaterally. GASTROINTESTINAL: Abdomen soft, non-tender, non-distended. Normal active bowel sounds MUSCULOSKELETAL: Right foot is wrapped. Dressing appear intact. NEURO: Alert & Oriented x4 to person, place, time, situation. Moves all ext x4 PSYCH: Appropriate mood and affect. Procedures 10/08/17 Right foot and ankle incision drainage, 5th metatarsal resection, 5th digit amputation 10/25/17 Incision and drainage Right foot/ankle abscess with bone biopsy right 4th metatarsal base; wound vac placement 11/07/17 EGD showing gastritis, esophagitis and hiatal hernia, Colonoscopy showing diverticulosis, internal and external hemorrhoids A/P Problem List: (1) Osteomyelitis of foot ICD Code: M86.9 - Osteomyelitis, unspecified (2) Leukocytosis ICD Code: D72.829 - Elevated white blood cell count, unspecified (3) Dehydration with hyponatremia ICD Code: E87.1 - Hypo-osmolality and hyponatremia (4) Acute kidney injury ICD Code: N17.9 - Acute kidney failure, unspecified (5) Sepsis ICD Code: A41.9 - Sepsis, unspecified organism Status: Acute (6) Diabetic foot ulcer ICD Code: E11.621 - Type 2 diabetes mellitus with foot ulcer; L97.509 - Non- pressure chronic ulcer of other part of unspecified foot with unspecified severity Status: Acute (7) Acute renal failure superimposed on stage 3 chronic kidney disease ICD Code: N17.9 - Acute kidney failure, unspecified; N18.3 - Chronic kidney disease, stage 3 (moderate) (8) Bacteremia due to Gram-positive bacteria ICD Code: R78.81 - Bacteremia (9) Postoperative anemia ICD Code: D64.9 - Anemia, unspecified Assessment and Plan 57-year-old male who presented with sepsis S. aureus Sepsis-- Secondary to diabetic foot infection, bacteremia, right foot osteomyelitis: Right foot osteomyelitis:S /P irrigation/debridement with wound vac placement 06/04. VAC removed. Status post incision and drainage, fifth metatarsal resection, fifth digit amputation on 10/08/17. Podiatry following - Currently on Cubicin, stop date 12/08/17. Infectious disease signed off. - Clarified with the patient that he can be out of bed with assistance. Nonweightbearing on the right lower extremity per podiatry. - Repeat wound culture per podiatry on 11/27/17 growing Kimberly. Patient started on Diflucan. -May benefit from wound care follow-up at the wound care clinic if that can be arranged. Right heel pressure ulcer - dry - off weight bearing - appreciate Podiatry recommendations Right knee effusion-resolved continue to monitor - Appreciate orthopedic surgery recommendations. cultures are negative. Bilateral pleural effusion:-improved clinically Elevated BNP- clinically appears comfortable r/io underlying CHF- ? from high out failure from anemia - pulmonary - stable-respiratory [place]- no SOB- up and ambulating - Appreciate pulmonology recommendations. Status post right-sided thoracentesis. Cytology is negative for malignant cells. - 2D echo- EF 55% - S/P Lasix 20 mg IV 11/05 - Lasix 20 mg po daily Peripheral vascular disease: -Appreciate vascular surgery recommendations. Per vascular surgery, no surgical intervention is planned. Postoperative anemia: H and H stable S/P EGD/colonoscopy- gastritis, hemorrhoids - PPI Diabetes mellitus type 2: - good readings -Continue Levemir. Monitor Accu-Cheks and cover with sliding scale insulin. Continue preprandial insulin as well. Acute kidney injury superimposed on chronic kidney disease stage III- good urine output -Creatinine continues to improve. Stage one pressure ulcer. -Patient needs turning every 2 hours. PT working with patient. DVT prophylaxis: Heparin Discharge Planning Homeless, lives in the [facility], on IV antibiotic with completion date of 12/08/17 Anticipated discharge on completion of antibiotics to prior living arrangements. May need to follow-up at the wound care clinic. Problem Qualifiers (1) Sepsis: Qualified Codes: A41.9 - Sepsis, unspecified organism (2) Diabetic foot ulcer: Qualified Codes: E10.621 - Type 1 diabetes mellitus with foot ulcer; L97.419 - Non-pressure chronic ulcer of right heel and midfoot with unspecified severity Susan Lizarraga MD Dec 04, 2017 15:18
[2017-12-04 16:00] VITALS: BP 109/54; PULSE 89; RESP 16; TEMP 98.7; O2SAT 96
[2017-12-04 20:00] VITALS: BP 144/80; PULSE 110; RESP 18; TEMP 100.1; O2SAT 95
[2017-12-04] MEDS: INSULIN DETEMIR 100 UNITS/ML VIAL SQ SCH (22:24)
[2017-12-05] VITALS: BP 116/67; PULSE 112; RESP 18; TEMP 99; O2SAT 98
[2017-12-05] MEDS: MORPHINE SULFATE 2 MG/ML SYRINGE IV PUSH PRN ×5 (03:22→19:57)
[2017-12-05 04:00] VITALS: BP 107/57; PULSE 98; RESP 18; TEMP 98.4; O2SAT 97
[2017-12-05] MEDS: oxyCODONE/ACETAMINOPHEN 7.5 MG/325 MG TAB PO PRN ×2 (04:27→23:44)
[2017-12-05] MEDS: HEPARIN SODIUM - SQ 10,000 UNITS/ML VIAL SQ SCH ×2 (04:27→17:44)
[2017-12-05] MEDS: GABAPENTIN 300 MG CAP PO SCH ×3 (07:39→17:46)
[2017-12-05] MEDS: FLUCONAZOLE 200 MG TAB PO SCH (07:39)
[2017-12-05] MEDS: FUROSEMIDE 20 MG TAB PO SCH (07:40)
[2017-12-05] MEDS: SODIUM CHLORIDE 0.9% FLUSH 10 ML FLUSH IV FLUSH SCH ×2 (07:40→20:01)
[2017-12-05] MEDS: LACTOBACILLUS ACIDOPHILUS TAB PO SCH ×2 (07:40→20:03)
[2017-12-05] MEDS: PANTOPRAZOLE SOD 40 MG DELAYED RELEASE TAB PO SCH (07:40)
[2017-12-05] MEDS: INSULIN ASPART SUPPLEMENTAL SCALE SQ SCH ×4 (08:00→20:03)
[2017-12-05 08:05] VITALS: BP 94/61; PULSE 104; RESP 18; TEMP 97.6; O2SAT 99
--- NOTE | 2017-12-05 08:39 | HHI.PR ---
Subjective Remarks Follow up of patient with prolonged Hospitalization, due to Right foot ulcer on Cubicin discussed with Baggage Clerk asked for Wheelchair. for probable discharge, next week, no nausea, vomit or diarrhea. Objective Vital Signs Date Time Temp Pulse Resp B/P (MAP) Pulse Ox O2 Delivery O2 Flow Rate FiO2 12/05/17 04:00 98.4 98 18 107/57 (74) 97 12/05/17 00:00 99.0 112 18 116/67 (83) 98 12/04/17 22:00 Room Air 12/04/17 20:00 100.1 110 18 144/80 (101) 95 12/04/17 16:00 98.7 89 16 109/54 (72) 96 12/04/17 12:00 98.8 95 16 119/66 (83) 100 I/O 12/04/17 12/04/17 12/04/17 12/05/17 12/05/17 12/05/17 07:00 15:00 23:00 07:00 15:00 23:00 Intake Total 1125 ml 960 ml 480 ml Output Total 1250 ml 1500 ml 1450 ml Balance -125 ml -540 ml -970 ml Intake Oral 1125 ml 960 ml 480 ml Output Urine Total 1250 ml 1500 ml 1450 ml # Bowel Movements 1 1 0 Imaging Last Impressions Lower Extremity Ultrasound 11/11/17 0000 Signed Impressions: Service Date/Time: Saturday, November 11, 2017 09:17 - CONCLUSION: Normal examination. mW Riley MD Chest X-Ray 11/08/17 0000 Signed Impressions: Service Date/Time: Wednesday, November 08, 2017 10:43 - CONCLUSION: Bibasilar infiltrates. Hector Pierre MD Foot MRI 10/24/17 0000 Signed Impressions: Service Date/Time: Tuesday, October 24, 2017 10:08 - CONCLUSION: 1. Marrow edema and mild marrow enhancement in the proximal fourth metatarsal suspicious for an early osteomyelitis. 2. Complex fluid collection in the lateral foot near the base of the fourth metatarsal, probably an abscess with surrounding cellulitis. 3. Extensive marrow edema in the midfoot as above, probably reactive. Patchy low signal in the navicular and cuboid may indicate some avascular necrosis. 4. Postoperative resection of the fifth toe and fifth metatarsal. Francisco Grider MD Ankle MRI 10/24/17 0000 Signed Impressions: Service Date/Time: Tuesday, October 24, 2017 10:08 - CONCLUSION: 1. No definite evidence for osteomyelitis around the right ankle. Marrow edema however has increased slightly since the prior exam, probably reactive and possibly associated with a developing Charcot arthropathy. Low signal patchy areas within the tarsal navicular are suspicious for developing avascular necrosis. There is edema in the soft tissues of the hindfoot. Trace joint fluid. Francisco Grider MD Foot X-Ray 10/23/17 0000 Signed Impressions: Service Date/Time: October 17:15 - CONCLUSION: 1. 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 Lupillo Webster MD Thoracentesis Ultrasound 10/20/17 0600 Signed Impressions: Service Date/Time: Friday, October 20, 2017 13:03 - CONCLUSION: Uncomplicated ultrasound guided thoracentesis. Smooth Saucedo MD Chest Ultrasound 10/17/17 0000 Signed Impressions: Service Date/Time: Tuesday, October 17, 2017 20:24 - CONCLUSION: A moderate to large right pleural effusion is confirmed sonographically and marked for thoracentesis. Hector Pierre MD Chest CT 10/16/17 0000 Signed Impressions: Service Date/Time: October 20:14 - CONCLUSION: Moderate-sized bilateral pleural effusions with adjacent compressive atelectasis and/or pneumonia. Scattered increased interstitial infiltrates within the perihilar regions and upper lobes bilaterally raising the possibility of pulmonary vascular congestion. Cardiomegaly and coronary artery calcifications are noted. Mild pretracheal and AP window mediastinal lymphadenopathy which is nonspecific. Degenerative changes and mild scoliosis of the thoracic spine. Hector Pierre MD Aspiration 10/16/17 0000 Signed Impressions: Service Date/Time: October 15:48 - CONCLUSION: Uncomplicated aspiration as above. Chetan Escobedo MD Abdomen/Pelvis CT 10/16/17 0000 Signed Impressions: Service Date/Time: October 20:14 - CONCLUSION: 1. Moderate-sized bilateral pleural effusions with adjacent consolidations consistent with atelectasis and/or pneumonia. 2. Tiny calcified nonobstructing bilateral renal calculi. 3. Mild hepatosplenomegaly. 4. Uncomplicated colonic diverticulosis. 5. Minimal free fluid within the pelvis. 6. Streakiness and fluid within the bilateral retroperitoneum inferior to the kidneys and extending into the presacral region. 7. Degenerative changes and scoliosis of the thoracolumbar spine. Hector Pierre MD Knee X-Ray 10/15/17 0000 Signed Impressions: Service Date/Time: Sunday, October 15, 2017 15:26 - CONCLUSION: Large joint effusion otherwise negative. Tu Lim MD FACR Carotid Artery Ultrasound 10/13/17 0000 Signed Impressions: Service Date/Time: Friday, October 13, 2017 16:12 - CONCLUSION: No evidence of flow-limiting carotid stenosis. Wm Riley MD Aorta w/Runoff CTA 10/13/17 0000 Signed Impressions: Service Date/Time: Friday, October 13, 2017 22:41 - CONCLUSION: 1. No aortic occlusive disease. 2. No significant iliac inflow stenosis. 3. No significant outflow stenosis. 4. Diffuse bilateral runoff disease with heavily calcified tibial arteries and significant venous contamination precluding patency evaluation beyond the very proximal calf. 5. Small to moderate bilateral pleural effusions with associated airspace disease at the lung bases, presumably atelectasis. 6. Trace free fluid in the deep pelvis. 7. Ancillary findings include hepatic steatosis, nonobstructing punctate calyceal calculus in the inferior pole of the left kidney and small suprapatellar right joint effusion. Lupillo Webster MD Procedures 10/08/17 Right foot and ankle incision drainage, 5th metatarsal resection, 5th digit amputation 10/25/17 Incision and drainage Right foot/ankle abscess with bone biopsy right 4th metatarsal base; wound vac placement 11/07/17 EGD showing gastritis, esophagitis and hiatal hernia, Colonoscopy showing diverticulosis, internal and external hemorrhoids Other Results Laboratory Tests Test 10/07/17 15:20 10/07/17 16:40 10/07/17 21:59 10/10/17 12:00 Dohle Bodies PRESENT Erythrocyte Sedimentation Rate GREATER THAN 140 mm/hr Blood Urea Nitrogen 25 MG/DL Creatinine 1.51 MG/DL Random Glucose 273 MG/DL Total Protein 7.1 GM/DL Albumin 2.5 GM/DL Calcium Level 8.7 MG/DL Magnesium Level 2.0 MG/DL Alkaline Phosphatase 147 U/L Aspartate Amino Transf (AST/SGOT) 26 U/L Alanine Aminotransferase (ALT/SGPT) 20 U/L Total Bilirubin 0.6 MG/DL Sodium Level 127 MEQ/L Potassium Level 3.5 MEQ/L Chloride Level 94 MEQ/L Carbon Dioxide Level 19.8 MEQ/L Lipase 55 U/L Troponin I LESS THAN 0.02 NG/ML Vancomycin Level Trough 11.6 MCG/ML Test 10/11/17 10:37 10/13/17 17:30 10/16/17 16:07 10/18/17 16:18 Myelocytes % Hematology Comments Differential Total Cells Counted 100 Neutrophils % (Manual) 78 % Band Neutrophils % 6 % Lymphocytes % 7 % Monocytes % 5 % Eosinophils % 1 % Basophils % 1 % Neutrophils # (Manual) 12.6 TH/MM3 Promyelocytes 2 % Toxic Granulation 2+ Toxic Vacuolation PRESENT Acanthocytes OCC Synovial Fluid Color YELLOW Synovial Fluid Appearance MARKED Synovial Fluid WBC 3730 /MM3 Synovial Fluid RBC 520 /MM3 Synovial Fluid Neutrophils 94 % Synovial Fluid Lymphocytes 6 % Synovial Fluid Crystals NONE Synovial Fluid Glucose 94 mg/dL Synovial Fluid Total Protein 1.2 g/dL Activated Partial Thromboplast Time 25.7 SEC Test 10/20/17 14:25 10/22/17 11:32 10/23/17 03:40 10/24/17 20:25 Body Fluid Amylase Source PLEURAL Body Fluid Amylase 11 U/L Pleural Fluid pH 8.0 Pleural Fluid WBC 51 /MM3 Pleural Fluid RBC 20 /MM3 Pleural Fluid Neutrophils 33 % Pleural Fluid Lymphocytes 53 % Pleural Fluid Monocytes 12 % Pleural Fluid Mesothelial Cells 2 % Pleural Fluid Comment Pleural Fluid Total Protein 1.6 GM/DL Pleural Fluid LDH 79 U/L Pleural Fluid Glucose 121 MG/DL Lactic Acid Level 0.7 mmol/L Platelet Estimate NORMAL Platelet Morphology Comment NORMAL Urine Squamous Epithelial Cells <1 /hpf Test 10/25/17 05:15 11/05/17 06:23 11/05/17 06:33 11/08/17 16:50 Prothrombin Time 11.5 SEC Prothromb Time International Ratio 1.1 RATIO B-Type Natriuretic Peptide 576 PG/ML Iron Level 13 MCG/DL Total Iron Binding Capacity 206 MCG/DL Percent Iron Saturation 6.3 % Ferritin 412 NG/ML Vitamin B12 Level 1583 PG/ML Folate GREATER THAN 20.0 NG/ML Blood Smear Pathologist Review Test 11/09/17 05:45 3/25/18 06:56 11/10/17 21:15 11/18/17 04:10 Urine Color LIGHT-YELLOW Urine Turbidity CLEAR Urine pH 6.5 Urine Specific [place] 1.006 Urine Protein TRACE mg/dL Urine Glucose (UA) NEG mg/dL Urine Ketones NEG mg/dL Urine Occult Blood NEG Urine Nitrite NEG Urine Bilirubin NEG Urine Urobilinogen LESS THAN 2.0 MG/DL Urine Leukocyte Esterase NEG Urine RBC 1 /hpf Urine WBC LESS THAN 1 /hpf Microscopic Urinalysis Comment CULT NOT INDICATED Reticulocyte Count 1.9 % Absolute Reticulocyte Count 57.0 MIL/L Haptoglobin 560 MG/DL Lactate Dehydrogenase 526 U/L Direct Bilirubin 0.1 MG/DL Indirect Bilirubin 0.1 MG/DL C-Reactive Protein 12.60 MG/DL Test 11/24/17 16:28 11/29/17 04:34 12/02/17 06:50 Neutrophils (%) (Auto) 64.1 % Lymphocytes (%) (Auto) 20.2 % Monocytes (%) (Auto) 8.6 % Eosinophils (%) (Auto) 6.5 % Basophils (%) (Auto) 0.6 % Neutrophils # (Auto) 5.4 TH/MM3 Lymphocytes # (Auto) 1.7 TH/MM3 Monocytes # (Auto) 0.7 TH/MM3 Eosinophils # (Auto) 0.5 TH/MM3 Basophils # (Auto) 0.1 TH/MM3 CBC Comment DIFF FINAL Differential Comment Blood Urea Nitrogen 16 MG/DL 18 MG/DL Creatinine 0.98 MG/DL 0.96 MG/DL Random Glucose 141 MG/DL 160 MG/DL Total Protein 8.0 GM/DL Albumin 2.3 GM/DL Calcium Level 8.8 MG/DL 8.8 MG/DL Alkaline Phosphatase 94 U/L Aspartate Amino Transf (AST/SGOT) 18 U/L Alanine Aminotransferase (ALT/SGPT) 20 U/L Total Bilirubin 0.2 MG/DL Sodium Level 134 MEQ/L 138 MEQ/L Potassium Level 4.2 MEQ/L 4.7 MEQ/L Chloride Level 99 MEQ/L 103 MEQ/L Carbon Dioxide Level 27.5 MEQ/L 25.6 MEQ/L White Blood Count 9.3 TH/MM3 Red Blood Count 3.36 MIL/MM3 Hemoglobin 8.5 GM/DL Hematocrit 25.5 % Mean Corpuscular Volume 75.8 FL Mean Corpuscular Hemoglobin 25.2 PG Mean Corpuscular Hemoglobin Concent 33.2 % Red Cell Distribution Width 17.3 % Platelet Count 473 TH/MM3 Mean Platelet Volume 7.6 FL Anion Gap 9 MEQ/L Estimat Glomerular Filtration Rate 80 ML/MIN Total Creatine Kinase 47 U/L Objective Remarks GENERAL: This is a well-nourished, well-developed patient, in no apparent distress. CARDIOVASCULAR: Normal rate and regular rhythm without murmurs, gallops, or rubs. RESPIRATORY: Good respiratory efforts. Breath sounds equal and clear to auscultation bilaterally. GASTROINTESTINAL: Abdomen soft, non-tender, non-distended. Normal active bowel sounds MUSCULOSKELETAL: Right foot is wrapped. Dressing appear intact. NEURO: Alert & Oriented x4 to person, place, time, situation. Moves all ext x4 PSYCH: Appropriate mood and affect. Medications and IVs Current Medications Medications (Trade) Dose Ordered Sig/Anna Route Start Time Stop Time Status Last Admin (NS Flush) 2 ml UNSCH PRN IV FLUSH 10/07/17 16:45 12/04/17 02:49 (NS Flush) 2 ml BID IV FLUSH 10/07/17 21:00 12/05/17 07:40 (Narcan Inj) 0.4 mg UNSCH PRN IV PUSH 10/07/17 16:45 (D50w (Vial) Inj) 50 ml UNSCH PRN IV PUSH 10/08/17 10:30 (Glucagon Inj) 1 mg UNSCH PRN OTHER 10/08/17 10:30 (Lactinex) 1 tab Q12HR PO 10/08/17 21:00 12/05/17 07:40 (NovoLOG INJ) 5 units TIDAC SQ 10/12/17 08:00 12/04/17 18:23 (Levemir Inj) 15 units HS SQ 10/12/17 21:00 12/04/17 22:24 (Restoril) 15 mg HS PRN PO 10/13/17 12:45 11/29/17 23:57 (Tylenol) 500 mg Q4H PRN PO 10/13/17 13:15 11/25/17 00:14 (Santyl Oint) 1 applic DAILY TOPICAL 10/22/17 12:00 12/04/17 09:00 (Neurontin) 600 mg TID PO 10/23/17 18:00 12/05/17 07:39 Daptomycin 640 mg/ Sodium Chloride 100 ml @ 200 mls/hr Q24H IV 10/31/17 16:00 12/08/17 15:59 12/04/17 15:13 (Morphine Inj) 1 mg Q4H PRN IV PUSH 11/04/17 08:30 12/05/17 07:49 (Lasix) 20 mg DAILY PO 11/06/17 09:00 12/05/17 07:40 (Protonix) 40 mg DAILY PO 11/09/17 09:00 12/05/17 07:40 (NovoLOG SUPPLEMENTAL SCALE) 1 ACHS SLIDING SCALE SQ 11/08/17 17:00 12/04/17 22:25 (Percocet 5-325 Mg) 1 tab Q6H PRN PO 11/12/17 11:15 11/29/17 23:55 (Percocet 7.5-325 Mg) 1 tab Q6H PRN PO 11/12/17 11:15 12/05/17 04:27 (Morphine Inj) 1 mg BID PRN IV PUSH 11/14/17 08:45 12/04/17 18:14 (Heparin Inj) 5,000 units Q12H SQ 11/28/17 17:00 12/05/17 04:27 (Diflucan) 200 mg DAILY PO 12/01/17 15:30 12/05/17 07:39 A/P Assessment and Plan (1) Osteomyelitis of foot ICD Code: M86.9 - Osteomyelitis, unspecified (2) Leukocytosis ICD Code: D72.829 - Elevated white blood cell count, unspecified (3) Dehydration with hyponatremia ICD Code: E87.1 - Hypo-osmolality and hyponatremia (4) Acute kidney injury ICD Code: N17.9 - Acute kidney failure, unspecified (5) Sepsis ICD Code: A41.9 - Sepsis, unspecified organism Status: Acute (6) Diabetic foot ulcer ICD Code: E11.621 - Type 2 diabetes mellitus with foot ulcer; L97.509 - Non- pressure chronic ulcer of other part of unspecified foot with unspecified severity Status: Acute (7) Acute renal failure superimposed on stage 3 chronic kidney disease ICD Code: N17.9 - Acute kidney failure, unspecified; N18.3 - Chronic kidney disease, stage 3 (moderate) (8) Bacteremia due to Gram-positive bacteria ICD Code: R78.81 - Bacteremia (9) Postoperative anemia ICD Code: D64.9 - Anemia, unspecified 57-year-old male who presented with sepsis S. aureus Sepsis-- Secondary to diabetic foot infection, bacteremia, right foot osteomyelitis: Right foot osteomyelitis:S /P irrigation/debridement with wound vac placement 06/04. VAC removed. Status post incision and drainage, fifth metatarsal resection, fifth digit amputation on 10/08/17. Podiatry following - Currently on Cubicin, stop date 12/08/17. Infectious disease signed off. - Clarified with the patient that he can be out of bed with assistance. Nonweightbearing on the right lower extremity per podiatry. - Repeat wound culture per podiatry on 11/27/17 growing Kimberly. Patient started on Diflucan. -May benefit from wound care follow-up at the wound care clinic if that can be arranged. Right heel pressure ulcer - dry - off weight bearing - appreciate Podiatry recommendations Right knee effusion-resolved continue to monitor - Appreciate orthopedic surgery recommendations. cultures are negative. Bilateral pleural effusion:-improved clinically Elevated BNP- clinically appears comfortable r/io underlying CHF- ? from high out failure from anemia - pulmonary - stable-respiratory [place]- no SOB- up and ambulating - Appreciate pulmonology recommendations. Status post right-sided thoracentesis. Cytology is negative for malignant cells. - 2D echo- EF 55% - S/P Lasix 20 mg IV 11/05 - Lasix 20 mg po daily Peripheral vascular disease: -Appreciate vascular surgery recommendations. Per vascular surgery, no surgical intervention is planned. Postoperative anemia: H and H stable S/P EGD/colonoscopy- gastritis, hemorrhoids - PPI Diabetes mellitus type 2: - good readings -Continue Levemir. Monitor Accu-Cheks and cover with sliding scale insulin. Continue preprandial insulin as well. Acute kidney injury superimposed on chronic kidney disease stage III- good urine output -Creatinine continues to improve. Stage one pressure ulcer. -Patient needs turning every 2 hours. PT working with patient. DVT prophylaxis: Heparin Discharge Planning Once cleared by ID specialist. Israel Valente MD Dec 05, 2017 08:39
[2017-12-05] MEDS: COLLAGENASE OINT 30 GM TUBE TOPICAL SCH (09:00)
[2017-12-05] MEDS: INSULIN ASPART 1,000 UNITS/10 ML VIAL SQ SCH ×3 (09:49→17:46)
[2017-12-05] MEDS: oxyCODONE/ACETAMINOPHEN 5 MG/325 MG TAB PO PRN ×2 (11:20→17:45)
[2017-12-05 12:05] VITALS: BP 116/66; PULSE 95; RESP 18; TEMP 97.9; O2SAT 98
[2017-12-05] MEDS ORDERED: WHEEMIS3 (13:49)
[2017-12-05] MEDS: DAPTOMYCIN IV SCH (16:03)
[2017-12-05] MEDS: SODIUM CHLORIDE 0.9% IV SCH (16:03)
[2017-12-05 16:05] VITALS: BP 132/72; PULSE 98; RESP 18; TEMP 98.4; O2SAT 98
[2017-12-05 20:00] VITALS: BP 109/59; PULSE 100; RESP 17; TEMP 98.5; O2SAT 97
[2017-12-05] MEDS: INSULIN DETEMIR 100 UNITS/ML VIAL SQ SCH (20:02)
[2017-12-06] VITALS: BP 133/74; PULSE 106; RESP 17; TEMP 99.8; O2SAT 96
[2017-12-06] MEDS: MORPHINE SULFATE 2 MG/ML SYRINGE IV PUSH PRN ×4 (03:33→23:09)
[2017-12-06 04:00] VITALS: BP 122/63; PULSE 93; RESP 16; TEMP 98; O2SAT 99
[2017-12-06] MEDS: HEPARIN SODIUM - SQ 10,000 UNITS/ML VIAL SQ SCH ×2 (05:00→17:39)
[2017-12-06] MEDS: oxyCODONE/ACETAMINOPHEN 7.5 MG/325 MG TAB PO PRN ×3 (05:49→20:02)
[2017-12-06 08:00] VITALS: BP 119/68; PULSE 89; RESP 18; TEMP 97.8; O2SAT 95
[2017-12-06] MEDS: INSULIN ASPART SUPPLEMENTAL SCALE SQ SCH ×4 (08:00→20:02)
[2017-12-06] MEDS: INSULIN ASPART 1,000 UNITS/10 ML VIAL SQ SCH ×3 (08:00→17:00)
[2017-12-06] MEDS: PANTOPRAZOLE SOD 40 MG DELAYED RELEASE TAB PO SCH (09:00)
[2017-12-06] MEDS: SODIUM CHLORIDE 0.9% FLUSH 10 ML FLUSH IV FLUSH SCH ×2 (09:00→20:02)
[2017-12-06] MEDS: FUROSEMIDE 20 MG TAB PO SCH (09:08)
[2017-12-06] MEDS: GABAPENTIN 300 MG CAP PO SCH ×3 (09:08→17:39)
[2017-12-06] MEDS: FLUCONAZOLE 200 MG TAB PO SCH (09:08)
[2017-12-06] MEDS: LACTOBACILLUS ACIDOPHILUS TAB PO SCH ×2 (09:08→20:02)
--- NOTE | 2017-12-06 09:47 | HHI.PR ---
Subjective Remarks Follow up of patient with prolonged Hospitalization, due to Right foot ulcer on Cubicin discussed with Chief Design Engineer no complaint, no nausea, vomit or diarrhea. resting in bed. Objective Vital Signs Date Time Temp Pulse Resp B/P (MAP) Pulse Ox O2 Delivery O2 Flow Rate FiO2 12/06/17 04:00 98.0 93 16 122/63 (82) 99 12/06/17 00:00 99.8 106 17 133/74 (93) 96 12/05/17 20:00 Room Air 12/05/17 20:00 98.5 100 17 109/59 (76) 97 12/05/17 16:05 98.4 98 18 132/72 (92) 98 12/05/17 12:05 97.9 95 18 116/66 (83) 98 I/O 12/05/17 12/05/17 12/05/17 12/06/17 12/06/17 12/06/17 07:00 15:00 23:00 07:00 15:00 23:00 Intake Total 480 ml 720 ml 1920 ml Output Total 1450 ml 1200 ml 650 ml Balance -970 ml -480 ml 1270 ml Intake Oral 480 ml 720 ml 1920 ml Output Urine Total 1450 ml 1200 ml 650 ml # Bowel Movements 0 1 Imaging Last Impressions Lower Extremity Ultrasound 11/11/17 0000 Signed Impressions: Service Date/Time: Saturday, November 11, 2017 09:17 - CONCLUSION: Normal examination. Wm Riley MD Chest X-Ray 11/08/17 0000 Signed Impressions: Service Date/Time: Wednesday, November 08, 2017 10:43 - CONCLUSION: Bibasilar infiltrates. Hector Pierre MD Foot MRI 10/24/17 0000 Signed Impressions: Service Date/Time: Tuesday, October 24, 2017 10:08 - CONCLUSION: 1. Marrow edema and mild marrow enhancement in the proximal fourth metatarsal suspicious for an early osteomyelitis. 2. Complex fluid collection in the lateral foot near the base of the fourth metatarsal, probably an abscess with surrounding cellulitis. 3. Extensive marrow edema in the midfoot as above, probably reactive. Patchy low signal in the navicular and cuboid may indicate some avascular necrosis. 4. Postoperative resection of the fifth toe and fifth metatarsal. Francisco Grider MD Ankle MRI 10/24/17 0000 Signed Impressions: Service Date/Time: Tuesday, October 24, 2017 10:08 - CONCLUSION: 1. No definite evidence for osteomyelitis around the right ankle. Marrow edema however has increased slightly since the prior exam, probably reactive and possibly associated with a developing Charcot arthropathy. Low signal patchy areas within the tarsal navicular are suspicious for developing avascular necrosis. There is edema in the soft tissues of the hindfoot. Trace joint fluid. Francisco Grider MD Foot X-Ray 10/23/17 0000 Signed Impressions: Service Date/Time: October 17:15 - CONCLUSION: 1. 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 Lupillo Webster MD Thoracentesis Ultrasound 10/20/17 0600 Signed Impressions: Service Date/Time: Friday, October 20, 2017 13:03 - CONCLUSION: Uncomplicated ultrasound guided thoracentesis. Smooth Saucedo MD Chest Ultrasound 10/17/17 0000 Signed Impressions: Service Date/Time: Tuesday, October 17, 2017 20:24 - CONCLUSION: A moderate to large right pleural effusion is confirmed sonographically and marked for thoracentesis. Hector Pierre MD Chest CT 10/16/17 0000 Signed Impressions: Service Date/Time: October 20:14 - CONCLUSION: Moderate-sized bilateral pleural effusions with adjacent compressive atelectasis and/or pneumonia. Scattered increased interstitial infiltrates within the perihilar regions and upper lobes bilaterally raising the possibility of pulmonary vascular congestion. Cardiomegaly and coronary artery calcifications are noted. Mild pretracheal and AP window mediastinal lymphadenopathy which is nonspecific. Degenerative changes and mild scoliosis of the thoracic spine. Hector Pierre MD Aspiration 10/16/17 Signed Impressions: Service Date/Time: October 15:48 - CONCLUSION: Uncomplicated aspiration as above. Chetan Escobedo MD Abdomen/Pelvis CT 10/16/17 Signed Impressions: Service Date/Time: October 20:14 - CONCLUSION: 1. Moderate-sized bilateral pleural effusions with adjacent consolidations consistent with atelectasis and/or pneumonia. 2. Tiny calcified nonobstructing bilateral renal calculi. 3. Mild hepatosplenomegaly. 4. Uncomplicated colonic diverticulosis. 5. Minimal free fluid within the pelvis. 6. Streakiness and fluid within the bilateral retroperitoneum inferior to the kidneys and extending into the presacral region. 7. Degenerative changes and scoliosis of the thoracolumbar spine. Hector Pierre MD Knee X-Ray 10/15/17 0000 Signed Impressions: Service Date/Time: Sunday, October 15, 2017 15:26 - CONCLUSION: Large joint effusion otherwise negative. Tu Lim MD FACR Carotid Artery Ultrasound 10/13/17 0000 Signed Impressions: Service Date/Time: Friday, October 13, 2017 16:12 - CONCLUSION: No evidence of flow-limiting carotid stenosis. Wm Riley MD Aorta w/Runoff CTA 10/13/17 0000 Signed Impressions: Service Date/Time: Friday, October 13, 2017 22:41 - CONCLUSION: 1. No aortic occlusive disease. 2. No significant iliac inflow stenosis. 3. No significant outflow stenosis. 4. Diffuse bilateral runoff disease with heavily calcified tibial arteries and significant venous contamination precluding patency evaluation beyond the very proximal calf. 5. Small to moderate bilateral pleural effusions with associated airspace disease at the lung bases, presumably atelectasis. 6. Trace free fluid in the deep pelvis. 7. Ancillary findings include hepatic steatosis, nonobstructing punctate calyceal calculus in the inferior pole of the left kidney and small suprapatellar right joint effusion. Lupillo Webster MD Procedures 10/08/17 Right foot and ankle incision drainage, 5th metatarsal resection, 5th digit amputation 10/25/17 Incision and drainage Right foot/ankle abscess with bone biopsy right 4th metatarsal base; wound vac placement 11/07/17 EGD showing gastritis, esophagitis and hiatal hernia, Colonoscopy showing diverticulosis, internal and external hemorrhoids Other Results Laboratory Tests Test 10/07/17 15:20 10/07/17 16:40 10/07/17 21:59 10/10/17 12:00 Dohle Bodies PRESENT Erythrocyte Sedimentation Rate GREATER THAN 140 mm/hr Blood Urea Nitrogen 25 MG/DL Creatinine 1.51 MG/DL Random Glucose 273 MG/DL Total Protein 7.1 GM/DL Albumin 2.5 GM/DL Calcium Level 8.7 MG/DL Magnesium Level 2.0 MG/DL Alkaline Phosphatase 147 U/L Aspartate Amino Transf (AST/SGOT) 26 U/L Alanine Aminotransferase (ALT/SGPT) 20 U/L Total Bilirubin 0.6 MG/DL Sodium Level 127 MEQ/L Potassium Level 3.5 MEQ/L Chloride Level 94 MEQ/L Carbon Dioxide Level 19.8 MEQ/L Lipase 55 U/L Troponin I LESS THAN 0.02 NG/ML Vancomycin Level Trough 11.6 MCG/ML Test 10/11/17 10:37 10/13/17 17:30 10/16/17 16:07 10/18/17 16:18 Myelocytes % Hematology Comments Differential Total Cells Counted 100 Neutrophils % (Manual) 78 % Band Neutrophils % 6 % Lymphocytes % 7 % Monocytes % 5 % Eosinophils % 1 % Basophils % 1 % Neutrophils # (Manual) 12.6 TH/MM3 Promyelocytes 2 % Toxic Granulation 2+ Toxic Vacuolation PRESENT Acanthocytes OCC Synovial Fluid Color YELLOW Synovial Fluid Appearance MARKED Synovial Fluid WBC 3730 /MM3 Synovial Fluid RBC 520 /MM3 Synovial Fluid Neutrophils 94 % Synovial Fluid Lymphocytes 6 % Synovial Fluid Crystals NONE Synovial Fluid Glucose 94 mg/dL Synovial Fluid Total Protein 1.2 g/dL Activated Partial Thromboplast Time 25.7 SEC Test 10/20/17 14:25 10/22/17 11:32 10/23/17 03:40 10/24/17 20:25 Body Fluid Amylase Source PLEURAL Body Fluid Amylase 11 U/L Pleural Fluid pH 8.0 Pleural Fluid WBC 51 /MM3 Pleural Fluid RBC 20 /MM3 Pleural Fluid Neutrophils 33 % Pleural Fluid Lymphocytes 53 % Pleural Fluid Monocytes 12 % Pleural Fluid Mesothelial Cells 2 % Pleural Fluid Comment Pleural Fluid Total Protein 1.6 GM/DL Pleural Fluid LDH 79 U/L Pleural Fluid Glucose 121 MG/DL Lactic Acid Level 0.7 mmol/L Platelet Estimate NORMAL Platelet Morphology Comment NORMAL Urine Squamous Epithelial Cells <1 /hpf Test 10/25/17 05:15 11/05/17 06:23 11/05/17 06:33 11/08/17 16:50 Prothrombin Time 11.5 SEC Prothromb Time International Ratio 1.1 RATIO B-Type Natriuretic Peptide 576 PG/ML Iron Level 13 MCG/DL Total Iron Binding Capacity 206 MCG/DL Percent Iron Saturation 6.3 % Ferritin 412 NG/ML Vitamin B12 Level 1583 PG/ML Folate GREATER THAN 20.0 NG/ML Blood Smear Pathologist Review Test 11/09/17 05:45 11/09/17 06:56 11/10/17 21:15 11/18/17 04:10 Urine Color LIGHT-YELLOW Urine Turbidity CLEAR Urine pH 6.5 Urine Specific [place] 1.006 Urine Protein TRACE mg/dL Urine Glucose (UA) NEG mg/dL Urine Ketones NEG mg/dL Urine Occult Blood NEG Urine Nitrite NEG Urine Bilirubin NEG Urine Urobilinogen LESS THAN 2.0 MG/DL Urine Leukocyte Esterase NEG Urine RBC 1 /hpf Urine WBC LESS THAN 1 /hpf Microscopic Urinalysis Comment CULT NOT INDICATED Reticulocyte Count 1.9 % Absolute Reticulocyte Count 57.0 MIL/L Haptoglobin 560 MG/DL Lactate Dehydrogenase 526 U/L Direct Bilirubin 0.1 MG/DL Indirect Bilirubin 0.1 MG/DL C-Reactive Protein 12.60 MG/DL Test 11/24/17 16:28 11/29/17 04:34 12/02/17 06:50 Neutrophils (%) (Auto) 64.1 % Lymphocytes (%) (Auto) 20.2 % Monocytes (%) (Auto) 8.6 % Eosinophils (%) (Auto) 6.5 % Basophils (%) (Auto) 0.6 % Neutrophils # (Auto) 5.4 TH/MM3 Lymphocytes # (Auto) 1.7 TH/MM3 Monocytes # (Auto) 0.7 TH/MM3 Eosinophils # (Auto) 0.5 TH/MM3 Basophils # (Auto) 0.1 TH/MM3 CBC Comment DIFF FINAL Differential Comment Blood Urea Nitrogen 16 MG/DL 18 MG/DL Creatinine 0.98 MG/DL 0.96 MG/DL Random Glucose 141 MG/DL 160 MG/DL Total Protein 8.0 GM/DL Albumin 2.3 GM/DL Calcium Level 8.8 MG/DL 8.8 MG/DL Alkaline Phosphatase 94 U/L Aspartate Amino Transf (AST/SGOT) 18 U/L Alanine Aminotransferase (ALT/SGPT) 20 U/L Total Bilirubin 0.2 MG/DL Sodium Level 134 MEQ/L 138 MEQ/L Potassium Level 4.2 MEQ/L 4.7 MEQ/L Chloride Level 99 MEQ/L 103 MEQ/L Carbon Dioxide Level 27.5 MEQ/L 25.6 MEQ/L White Blood Count 9.3 TH/MM3 Red Blood Count 3.36 MIL/MM3 Hemoglobin 8.5 GM/DL Hematocrit 25.5 % Mean Corpuscular Volume 75.8 FL Mean Corpuscular Hemoglobin 25.2 PG Mean Corpuscular Hemoglobin Concent 33.2 % Red Cell Distribution Width 17.3 % Platelet Count 473 TH/MM3 Mean Platelet Volume 7.6 FL Anion Gap 9 MEQ/L Estimat Glomerular Filtration Rate 80 ML/MIN Total Creatine Kinase 47 U/L Objective Remarks GENERAL: This is a well-nourished, well-developed patient, in no apparent distress. CARDIOVASCULAR: Normal rate and regular rhythm without murmurs, gallops, or rubs. RESPIRATORY: Good respiratory efforts. Breath sounds equal and clear to auscultation bilaterally. GASTROINTESTINAL: Abdomen soft, non-tender, non-distended. Normal active bowel sounds MUSCULOSKELETAL: Right foot is wrapped. Dressing appear intact. NEURO: Alert & Oriented x4 to person, place, time, situation. Moves all ext x4 PSYCH: Appropriate mood and affect. Medications and IVs Current Medications Medications (Trade) Dose Ordered Sig/Anna Route Start Time Stop Time Status Last Admin (NS Flush) 2 ml UNSCH PRN IV FLUSH 10/07/17 16:45 12/04/17 02:49 (NS Flush) 2 ml BID IV FLUSH 10/07/17 21:00 12/05/17 20:01 (Narcan Inj) 0.4 mg UNSCH PRN IV PUSH 10/07/17 16:45 (D50w (Vial) Inj) 50 ml UNSCH PRN IV PUSH 10/08/17 10:30 (Glucagon Inj) 1 mg UNSCH PRN OTHER 10/08/17 10:30 (Lactinex) 1 tab Q12HR PO 10/08/17 21:00 12/06/17 09:08 (NovoLOG INJ) 5 units TIDAC SQ 10/12/17 08:00 12/05/17 17:46 (Levemir Inj) 15 units HS SQ 10/12/17 21:00 12/05/17 20:02 (Restoril) 15 mg HS PRN PO 10/13/17 12:45 11/29/17 23:57 (Tylenol) 500 mg Q4H PRN PO 10/13/17 13:15 11/25/17 00:14 (Santyl Oint) 1 applic DAILY TOPICAL 10/22/17 12:00 12/05/17 09:00 (Neurontin) 600 mg TID PO 10/23/17 18:00 12/06/17 09:08 Daptomycin 640 mg/ Sodium Chloride 100 ml @ 200 mls/hr Q24H IV 10/31/17 16:00 12/08/17 15:59 12/05/17 16:03 (Morphine Inj) 1 mg Q4H PRN IV PUSH 11/04/17 08:30 12/06/17 09:19 (Lasix) 20 mg DAILY PO 11/06/17 09:00 12/06/17 09:08 (Protonix) 40 mg DAILY PO 11/09/17 09:00 12/05/17 07:40 (NovoLOG SUPPLEMENTAL SCALE) 1 ACHS SLIDING SCALE SQ 11/08/17 17:00 12/04/17 22:25 (Percocet 5-325 Mg) 1 tab Q6H PRN PO 11/12/17 11:15 12/05/17 17:45 (Percocet 7.5-325 Mg) 1 tab Q6H PRN PO 11/12/17 11:15 12/06/17 05:49 (Morphine Inj) 1 mg BID PRN IV PUSH 11/14/17 08:45 12/05/17 19:57 (Heparin Inj) 5,000 units Q12H SQ 11/28/17 17:00 12/05/17 17:44 (Diflucan) 200 mg DAILY PO 12/01/17 15:30 12/06/17 09:08 A/P Assessment and Plan (1) Osteomyelitis of foot ICD Code: M86.9 - Osteomyelitis, unspecified (2) Leukocytosis ICD Code: D72.829 - Elevated white blood cell count, unspecified (3) Dehydration with hyponatremia ICD Code: E87.1 - Hypo-osmolality and hyponatremia (4) Acute kidney injury ICD Code: N17.9 - Acute kidney failure, unspecified (5) Sepsis ICD Code: A41.9 - Sepsis, unspecified organism Status: Acute (6) Diabetic foot ulcer ICD Code: E11.621 - Type 2 diabetes mellitus with foot ulcer; L97.509 - Non- pressure chronic ulcer of other part of unspecified foot with unspecified severity Status: Acute (7) Acute renal failure superimposed on stage 3 chronic kidney disease ICD Code: N17.9 - Acute kidney failure, unspecified; N18.3 - Chronic kidney disease, stage 3 (moderate) (8) Bacteremia due to Gram-positive bacteria ICD Code: R78.81 - Bacteremia (9) Postoperative anemia ICD Code: D64.9 - Anemia, unspecified 57-year-old male who presented with sepsis S. aureus Sepsis-- Secondary to diabetic foot infection, bacteremia, right foot osteomyelitis: Right foot osteomyelitis:S /P irrigation/debridement with wound vac placement 06/04. VAC removed. Status post incision and drainage, fifth metatarsal resection, fifth digit amputation on 10/08/17. Podiatry following - Currently on Cubicin, stop date 12/08/17. Infectious disease signed off. - Clarified with the patient that he can be out of bed with assistance. Nonweightbearing on the right lower extremity per podiatry. - Repeat wound culture per podiatry on 11/27/17 growing Kimberly. Patient started on Diflucan. -May benefit from wound care follow-up at the wound care clinic if that can be arranged. Right heel pressure ulcer - dry - off weight bearing - appreciate Podiatry recommendations Right knee effusion-resolved continue to monitor - Appreciate orthopedic surgery recommendations. cultures are negative. Bilateral pleural effusion:-improved clinically Elevated BNP- clinically appears comfortable r/io underlying CHF- ? from high out failure from anemia - pulmonary - stable-respiratory [place]- no SOB- up and ambulating - Appreciate pulmonology recommendations. Status post right-sided thoracentesis. Cytology is negative for malignant cells. - 2D echo- EF 55% - S/P Lasix 20 mg IV 11/05 - Lasix 20 mg po daily Peripheral vascular disease: -Appreciate vascular surgery recommendations. Per vascular surgery, no surgical intervention is planned. Postoperative anemia: H and H stable S/P EGD/colonoscopy- gastritis, hemorrhoids - PPI Diabetes mellitus type 2: - good readings -Continue Levemir. Monitor Accu-Cheks and cover with sliding scale insulin. Continue preprandial insulin as well. Acute kidney injury superimposed on chronic kidney disease stage III- good urine output -Creatinine continues to improve. Stage one pressure ulcer. -Patient needs turning every 2 hours. PT working with patient. DVT prophylaxis: Heparin No changes to anterior assessment. Discharge Planning Once cleared by ID specialist. Israel Valente MD Dec 06, 2017 09:47
[2017-12-06 12:00] VITALS: BP 115/66; PULSE 83; RESP 18; TEMP 98.2; O2SAT 97
[2017-12-06 16:00] VITALS: BP 125/61; PULSE 89; RESP 17; TEMP 98; O2SAT 97
[2017-12-06] MEDS: DAPTOMYCIN IV SCH (16:33)
[2017-12-06] MEDS: SODIUM CHLORIDE 0.9% IV SCH (16:33)
[2017-12-06] MEDS: COLLAGENASE OINT 30 GM TUBE TOPICAL SCH (16:34)
[2017-12-06 20:00] VITALS: BP 98/59; PULSE 99; RESP 18; TEMP 98.1; O2SAT 98
[2017-12-06] MEDS: INSULIN DETEMIR 100 UNITS/ML VIAL SQ SCH (20:02)
[2017-12-07] VITALS: BP 118/67; PULSE 93; RESP 18; TEMP 98.5; O2SAT 98
[2017-12-07] MEDS: oxyCODONE/ACETAMINOPHEN 7.5 MG/325 MG TAB PO PRN ×3 (01:57→20:58)
[2017-12-07 04:00] VITALS: BP 118/70; PULSE 99; RESP 18; TEMP 99.4; O2SAT 100
[2017-12-07] MEDS: MORPHINE SULFATE 2 MG/ML SYRINGE IV PUSH PRN ×3 (04:53→16:36)
[2017-12-07] MEDS: HEPARIN SODIUM - SQ 10,000 UNITS/ML VIAL SQ SCH ×2 (05:04→17:39)
[2017-12-07 08:00] VITALS: BP 116/68; PULSE 88; RESP 16; TEMP 98.3; O2SAT 99
[2017-12-07] MEDS: INSULIN ASPART SUPPLEMENTAL SCALE SQ SCH ×4 (08:00→20:58)
[2017-12-07] MEDS: INSULIN ASPART 1,000 UNITS/10 ML VIAL SQ SCH ×3 (08:00→17:00)
[2017-12-07] MEDS: FUROSEMIDE 20 MG TAB PO SCH (08:36)
[2017-12-07] MEDS: LACTOBACILLUS ACIDOPHILUS TAB PO SCH ×2 (08:36→20:57)
[2017-12-07] MEDS: FLUCONAZOLE 200 MG TAB PO SCH (08:36)
[2017-12-07] MEDS: GABAPENTIN 300 MG CAP PO SCH ×3 (08:36→17:40)
[2017-12-07] MEDS: SODIUM CHLORIDE 0.9% FLUSH 10 ML FLUSH IV FLUSH SCH ×2 (08:39→20:58)
--- NOTE | 2017-12-07 08:51 | HHI.PR ---
Subjective Remarks Follow up of patient with prolonged Hospitalization, due to Right foot ulcer on Cubicin discussed with Wait Staff no complaint, no nausea, vomit or diarrhea. resting in bed. Objective Vital Signs Date Time Temp Pulse Resp B/P (MAP) Pulse Ox O2 Delivery O2 Flow Rate FiO2 12/07/17 04:00 Room Air 12/07/17 04:00 99.4 99 18 118/70 (86) 100 12/07/17 00:00 98.5 93 18 118/67 (84) 98 12/07/17 00:00 Nasal Cannula 2.00 12/06/17 20:00 98.1 99 18 98/59 (72) 98 12/06/17 20:00 Room Air 12/06/17 18:12 97 Room Air 12/06/17 16:00 98.0 89 17 125/61 (82) 97 12/06/17 12:00 97 Room Air 12/06/17 12:00 98.2 83 18 115/66 (82) 97 12/06/17 10:53 95 Room Air I/O 12/06/17 12/06/17 12/06/17 12/07/17 12/07/17 12/07/17 06:59 14:59 22:59 06:59 14:59 22:59 Intake Total 1920 ml 960 ml 500 ml Output Total 650 ml 700 ml 4000 ml Balance 1270 ml 260 ml -3500 ml Intake Oral 1920 ml 960 ml 500 ml Output Urine Total 650 ml 700 ml 4000 ml # Bowel Movements 1 0 Imaging Last Impressions Lower Extremity Ultrasound 11/11/17 0000 Signed Impressions: Service Date/Time: Saturday, November 11, 2017 09:17 - CONCLUSION: Normal examination. Wm Riley MD Chest X-Ray 11/08/17 0000 Signed Impressions: Service Date/Time: Wednesday, November 08, 2017 10:43 - CONCLUSION: Bibasilar infiltrates. Hector Pierre MD Foot MRI 10/24/17 0000 Signed Impressions: Service Date/Time: Tuesday, October 24, 2017 10:08 - CONCLUSION: 1. Marrow edema and mild marrow enhancement in the proximal fourth metatarsal suspicious for an early osteomyelitis. 2. Complex fluid collection in the lateral foot near the base of the fourth metatarsal, probably an abscess with surrounding cellulitis. 3. Extensive marrow edema in the midfoot as above, probably reactive. Patchy low signal in the navicular and cuboid may indicate some avascular necrosis. 4. Postoperative resection of the fifth toe and fifth metatarsal. Francisco Grider MD Ankle MRI 10/24/17 0000 Signed Impressions: Service Date/Time: Tuesday, October 24, 2017 10:08 - CONCLUSION: 1. No definite evidence for osteomyelitis around the right ankle. Marrow edema however has increased slightly since the prior exam, probably reactive and possibly associated with a developing Charcot arthropathy. Low signal patchy areas within the tarsal navicular are suspicious for developing avascular necrosis. There is edema in the soft tissues of the hindfoot. Trace joint fluid. Francisco Grider MD Foot X-Ray 10/23/17 0000 Signed Impressions: Service Date/Time: October 17:15 - CONCLUSION: 1. 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 Lupillo Webster MD Thoracentesis Ultrasound 10/20/17 0600 Signed Impressions: Service Date/Time: Friday, October 20, 2017 13:03 - CONCLUSION: Uncomplicated ultrasound guided thoracentesis. Smooth Saucedo MD Chest Ultrasound 10/17/17 0000 Signed Impressions: Service Date/Time: Tuesday, October 17, 2017 20:24 - CONCLUSION: A moderate to large right pleural effusion is confirmed sonographically and marked for thoracentesis. Hector Pierre MD Chest CT 10/16/17 0000 Signed Impressions: Service Date/Time: October 20:14 - CONCLUSION: Moderate-sized bilateral pleural effusions with adjacent compressive atelectasis and/or pneumonia. Scattered increased interstitial infiltrates within the perihilar regions and upper lobes bilaterally raising the possibility of pulmonary vascular congestion. Cardiomegaly and coronary artery calcifications are noted. Mild pretracheal and AP window mediastinal lymphadenopathy which is nonspecific. Degenerative changes and mild scoliosis of the thoracic spine. Hector Pierre MD Aspiration 10/16/17 0000 Signed Impressions: Service Date/Time: October 15:48 - CONCLUSION: Uncomplicated aspiration as above. Chetan Escobedo MD Abdomen/Pelvis CT 10/16/17 0000 Signed Impressions: Service Date/Time: October 20:14 - CONCLUSION: 1. Moderate-sized bilateral pleural effusions with adjacent consolidations consistent with atelectasis and/or pneumonia. 2. Tiny calcified nonobstructing bilateral renal calculi. 3. Mild hepatosplenomegaly. 4. Uncomplicated colonic diverticulosis. 5. Minimal free fluid within the pelvis. 6. Streakiness and fluid within the bilateral retroperitoneum inferior to the kidneys and extending into the presacral region. 7. Degenerative changes and scoliosis of the thoracolumbar spine. Hector Pierre MD Knee X-Ray 10/15/17 0000 Signed Impressions: Service Date/Time: Sunday, October 15, 2017 15:26 - CONCLUSION: Large joint effusion otherwise negative. Tu Lim MD FACR Carotid Artery Ultrasound 10/13/17 0000 Signed Impressions: Service Date/Time: Friday, October 13, 2017 16:12 - CONCLUSION: No evidence of flow-limiting carotid stenosis. Wm Riley MD Aorta w/Runoff CTA 10/13/17 0000 Signed Impressions: Service Date/Time: Friday, October 13, 2017 22:41 - CONCLUSION: 1. No aortic occlusive disease. 2. No significant iliac inflow stenosis. 3. No significant outflow stenosis. 4. Diffuse bilateral runoff disease with heavily calcified tibial arteries and significant venous contamination precluding patency evaluation beyond the very proximal calf. 5. Small to moderate bilateral pleural effusions with associated airspace disease at the lung bases, presumably atelectasis. 6. Trace free fluid in the deep pelvis. 7. Ancillary findings include hepatic steatosis, nonobstructing punctate calyceal calculus in the inferior pole of the left kidney and small suprapatellar right joint effusion. Lupillo Webster MD Procedures 10/08/17 Right foot and ankle incision drainage, 5th metatarsal resection, 5th digit amputation 10/25/17 Incision and drainage Right foot/ankle abscess with bone biopsy right 4th metatarsal base; wound vac placement 11/07/17 EGD showing gastritis, esophagitis and hiatal hernia, Colonoscopy showing diverticulosis, internal and external hemorrhoids Other Results Laboratory Tests Test 10/07/17 15:20 10/07/17 16:40 10/07/17 21:59 10/10/17 12:00 Dohle Bodies PRESENT Erythrocyte Sedimentation Rate GREATER THAN 140 mm/hr Blood Urea Nitrogen 25 MG/DL Creatinine 1.51 MG/DL Random Glucose 273 MG/DL Total Protein 7.1 GM/DL Albumin 2.5 GM/DL Calcium Level 8.7 MG/DL Magnesium Level 2.0 MG/DL Alkaline Phosphatase 147 U/L Aspartate Amino Transf (AST/SGOT) 26 U/L Alanine Aminotransferase (ALT/SGPT) 20 U/L Total Bilirubin 0.6 MG/DL Sodium Level 127 MEQ/L Potassium Level 3.5 MEQ/L Chloride Level 94 MEQ/L Carbon Dioxide Level 19.8 MEQ/L Lipase 55 U/L Troponin I LESS THAN 0.02 NG/ML Vancomycin Level Trough 11.6 MCG/ML Test 10/11/17 10:37 10/13/17 17:30 10/16/17 16:07 10/18/17 16:18 Myelocytes % Hematology Comments Differential Total Cells Counted 100 Neutrophils % (Manual) 78 % Band Neutrophils % 6 % Lymphocytes % 7 % Monocytes % 5 % Eosinophils % 1 % Basophils % 1 % Neutrophils # (Manual) 12.6 TH/MM3 Promyelocytes 2 % Toxic Granulation 2+ Toxic Vacuolation PRESENT Acanthocytes OCC Synovial Fluid Color YELLOW Synovial Fluid Appearance MARKED Synovial Fluid WBC 3730 /MM3 Synovial Fluid RBC 520 /MM3 Synovial Fluid Neutrophils 94 % Synovial Fluid Lymphocytes 6 % Synovial Fluid Crystals NONE Synovial Fluid Glucose 94 mg/dL Synovial Fluid Total Protein 1.2 g/dL Activated Partial Thromboplast Time 25.7 SEC Test 10/20/17 14:25 10/22/17 11:32 10/23/17 03:40 10/24/17 20:25 Body Fluid Amylase Source PLEURAL Body Fluid Amylase 11 U/L Pleural Fluid pH 8.0 Pleural Fluid WBC 51 /MM3 Pleural Fluid RBC 20 /MM3 Pleural Fluid Neutrophils 33 % Pleural Fluid Lymphocytes 53 % Pleural Fluid Monocytes 12 % Pleural Fluid Mesothelial Cells 2 % Pleural Fluid Comment Pleural Fluid Total Protein 1.6 GM/DL Pleural Fluid LDH 79 U/L Pleural Fluid Glucose 121 MG/DL Lactic Acid Level 0.7 mmol/L Platelet Estimate NORMAL Platelet Morphology Comment NORMAL Urine Squamous Epithelial Cells <1 /hpf Test 10/25/17 05:15 11/05/17 06:23 11/05/17 06:33 11/08/17 16:50 Prothrombin Time 11.5 SEC Prothromb Time International Ratio 1.1 RATIO B-Type Natriuretic Peptide 576 PG/ML Iron Level 13 MCG/DL Total Iron Binding Capacity 206 MCG/DL Percent Iron Saturation 6.3 % Ferritin 412 NG/ML Vitamin B12 Level 1583 PG/ML Folate GREATER THAN 20.0 NG/ML Blood Smear Pathologist Review Test 11/09/17 05:45 11/09/17 06:56 11/10/17 21:15 11/18/17 04:10 Urine Color LIGHT-YELLOW Urine Turbidity CLEAR Urine pH 6.5 Urine Specific [place] 1.006 Urine Protein TRACE mg/dL Urine Glucose (UA) NEG mg/dL Urine Ketones NEG mg/dL Urine Occult Blood NEG Urine Nitrite NEG Urine Bilirubin NEG Urine Urobilinogen LESS THAN 2.0 MG/DL Urine Leukocyte Esterase NEG Urine RBC 1 /hpf Urine WBC LESS THAN 1 /hpf Microscopic Urinalysis Comment CULT NOT INDICATED Reticulocyte Count 1.9 % Absolute Reticulocyte Count 57.0 MIL/L Haptoglobin 560 MG/DL Lactate Dehydrogenase 526 U/L Direct Bilirubin 0.1 MG/DL Indirect Bilirubin 0.1 MG/DL C-Reactive Protein 12.60 MG/DL Test 11/24/17 16:28 11/29/17 04:34 12/02/17 06:50 Neutrophils (%) (Auto) 64.1 % Lymphocytes (%) (Auto) 20.2 % Monocytes (%) (Auto) 8.6 % Eosinophils (%) (Auto) 6.5 % Basophils (%) (Auto) 0.6 % Neutrophils # (Auto) 5.4 TH/MM3 Lymphocytes # (Auto) 1.7 TH/MM3 Monocytes # (Auto) 0.7 TH/MM3 Eosinophils # (Auto) 0.5 TH/MM3 Basophils # (Auto) 0.1 TH/MM3 CBC Comment DIFF FINAL Differential Comment Blood Urea Nitrogen 16 MG/DL 18 MG/DL Creatinine 0.98 MG/DL 0.96 MG/DL Random Glucose 141 MG/DL 160 MG/DL Total Protein 8.0 GM/DL Albumin 2.3 GM/DL Calcium Level 8.8 MG/DL 8.8 MG/DL Alkaline Phosphatase 94 U/L Aspartate Amino Transf (AST/SGOT) 18 U/L Alanine Aminotransferase (ALT/SGPT) 20 U/L Total Bilirubin 0.2 MG/DL Sodium Level 134 MEQ/L 138 MEQ/L Potassium Level 4.2 MEQ/L 4.7 MEQ/L Chloride Level 99 MEQ/L 103 MEQ/L Carbon Dioxide Level 27.5 MEQ/L 25.6 MEQ/L White Blood Count 9.3 TH/MM3 Red Blood Count 3.36 MIL/MM3 Hemoglobin 8.5 GM/DL Hematocrit 25.5 % Mean Corpuscular Volume 75.8 FL Mean Corpuscular Hemoglobin 25.2 PG Mean Corpuscular Hemoglobin Concent 33.2 % Red Cell Distribution Width 17.3 % Platelet Count 473 TH/MM3 Mean Platelet Volume 7.6 FL Anion Gap 9 MEQ/L Estimat Glomerular Filtration Rate 80 ML/MIN Total Creatine Kinase 47 U/L Objective Remarks GENERAL: This is a well-nourished, well-developed patient, in no apparent distress. CARDIOVASCULAR: Normal rate and regular rhythm without murmurs, gallops, or rubs. RESPIRATORY: Good respiratory efforts. Breath sounds equal and clear to auscultation bilaterally. GASTROINTESTINAL: Abdomen soft, non-tender, non-distended. Normal active bowel sounds MUSCULOSKELETAL: Right foot is wrapped. Dressing appear intact. NEURO: Alert & Oriented x4 to person, place, time, situation. Moves all ext x4 PSYCH: Appropriate mood and affect. Medications and IVs Current Medications Medications (Trade) Dose Ordered Sig/Anna Route Start Time Stop Time Status Last Admin (NS Flush) 2 ml UNSCH PRN IV FLUSH 10/07/17 16:45 12/04/17 02:49 (NS Flush) 2 ml BID IV FLUSH 10/07/17 21:00 12/07/17 08:39 (Narcan Inj) 0.4 mg UNSCH PRN IV PUSH 10/07/17 16:45 (D50w (Vial) Inj) 50 ml UNSCH PRN IV PUSH 10/08/17 10:30 (Glucagon Inj) 1 mg UNSCH PRN OTHER 10/08/17 10:30 (Lactinex) 1 tab Q12HR PO 10/08/17 21:00 12/07/17 08:36 (NovoLOG INJ) 5 units TIDAC SQ 10/12/17 08:00 12/06/17 17:00 (Levemir Inj) 15 units HS SQ 10/12/17 21:00 12/05/17 20:02 (Restoril) 15 mg HS PRN PO 10/13/17 12:45 11/29/17 23:57 (Tylenol) 500 mg Q4H PRN PO 10/13/17 13:15 11/25/17 00:14 (Santyl Oint) 1 applic DAILY TOPICAL 10/22/17 12:00 12/06/17 16:34 (Neurontin) 600 mg TID PO 10/23/17 18:00 12/07/17 08:36 Daptomycin 640 mg/ Sodium Chloride 100 ml @ 200 mls/hr Q24H IV 10/31/17 16:00 12/08/17 15:59 12/06/17 16:33 (Morphine Inj) 1 mg Q4H PRN IV PUSH 11/04/17 08:30 12/07/17 04:53 (Lasix) 20 mg DAILY PO 11/06/17 09:00 12/07/17 08:36 (Protonix) 40 mg DAILY PO 11/09/17 09:00 12/06/17 09:00 (NovoLOG SUPPLEMENTAL SCALE) 1 ACHS SLIDING SCALE SQ 11/08/17 17:00 12/06/17 17:00 (Percocet 5-325 Mg) 1 tab Q6H PRN PO 11/12/17 11:15 12/05/17 17:45 (Percocet 7.5-325 Mg) 1 tab Q6H PRN PO 11/12/17 11:15 12/07/17 08:36 (Morphine Inj) 1 mg BID PRN IV PUSH 11/14/17 08:45 12/06/17 16:35 (Heparin Inj) 5,000 units Q12H SQ 11/28/17 17:00 12/07/17 05:04 (Diflucan) 200 mg DAILY PO 12/01/17 15:30 12/07/17 08:36 A/P Assessment and Plan (1) Osteomyelitis of foot ICD Code: M86.9 - Osteomyelitis, unspecified (2) Leukocytosis ICD Code: D72.829 - Elevated white blood cell count, unspecified (3) Dehydration with hyponatremia ICD Code: E87.1 - Hypo-osmolality and hyponatremia (4) Acute kidney injury ICD Code: N17.9 - Acute kidney failure, unspecified (5) Sepsis ICD Code: A41.9 - Sepsis, unspecified organism Status: Acute (6) Diabetic foot ulcer ICD Code: E11.621 - Type 2 diabetes mellitus with foot ulcer; L97.509 - Non- pressure chronic ulcer of other part of unspecified foot with unspecified severity Status: Acute (7) Acute renal failure superimposed on stage 3 chronic kidney disease ICD Code: N17.9 - Acute kidney failure, unspecified; N18.3 - Chronic kidney disease, stage 3 (moderate) (8) Bacteremia due to Gram-positive bacteria ICD Code: R78.81 - Bacteremia (9) Postoperative anemia ICD Code: D64.9 - Anemia, unspecified 57-year-old male who presented with sepsis S. aureus Sepsis-- Secondary to diabetic foot infection, bacteremia, right foot osteomyelitis: Right foot osteomyelitis:S /P irrigation/debridement with wound vac placement 06/04. VAC removed. Status post incision and drainage, fifth metatarsal resection, fifth digit amputation on 10/08/17. Podiatry following - Currently on Cubicin, stop date 12/08/17. Infectious disease signed off. - Clarified with the patient that he can be out of bed with assistance. Nonweightbearing on the right lower extremity per podiatry. - Repeat wound culture per podiatry on 11/27/17 growing Kimberly. Patient started on Diflucan. -May benefit from wound care follow-up at the wound care clinic if that can be arranged. Right heel pressure ulcer - dry - off weight bearing - appreciate Podiatry recommendations Right knee effusion-resolved continue to monitor - Appreciate orthopedic surgery recommendations. cultures are negative. Bilateral pleural effusion:-improved clinically Elevated BNP- clinically appears comfortable r/io underlying CHF- ? from high out failure from anemia - pulmonary - stable-respiratory [place]- no SOB- up and ambulating - Appreciate pulmonology recommendations. Status post right-sided thoracentesis. Cytology is negative for malignant cells. - 2D echo- EF 55% - S/P Lasix 20 mg IV 11/05 - Lasix 20 mg po daily Peripheral vascular disease: -Appreciate vascular surgery recommendations. Per vascular surgery, no surgical intervention is planned. Postoperative anemia: H and H stable S/P EGD/colonoscopy- gastritis, hemorrhoids - PPI Diabetes mellitus type 2: - good readings -Continue Levemir. Monitor Accu-Cheks and cover with sliding scale insulin. Continue preprandial insulin as well. Acute kidney injury superimposed on chronic kidney disease stage III- good urine output -Creatinine continues to improve. Stage one pressure ulcer. -Patient needs turning every 2 hours. PT working with patient. DVT prophylaxis: Heparin Will Discharge in am tomorrow after his antibiotics given. Discharge Planning Once cleared by ID specialist. Israel Valente MD Dec 07, 2017 08:51
[2017-12-07] MEDS: PANTOPRAZOLE SOD 40 MG DELAYED RELEASE TAB PO SCH (09:00)
[2017-12-07 12:00] VITALS: BP 115/61; PULSE 88; RESP 16; TEMP 98.2; O2SAT 96
[2017-12-07 16:00] VITALS: BP 124/71; PULSE 92; RESP 15; TEMP 98.5; O2SAT 98
[2017-12-07] MEDS: COLLAGENASE OINT 30 GM TUBE TOPICAL SCH (16:34)
[2017-12-07] MEDS: SODIUM CHLORIDE 0.9% IV SCH (16:34)
[2017-12-07] MEDS: DAPTOMYCIN IV SCH (16:34)
[2017-12-07 20:00] VITALS: BP 115/66; PULSE 88; RESP 18; TEMP 98; O2SAT 97
[2017-12-07] MEDS: INSULIN DETEMIR 100 UNITS/ML VIAL SQ SCH (20:58)
[2017-12-08] VITALS: BP 118/60; PULSE 102; RESP 18; TEMP 98.5; O2SAT 98
[2017-12-08] MEDS: oxyCODONE/ACETAMINOPHEN 7.5 MG/325 MG TAB PO PRN ×3 (03:11→15:26)
[2017-12-08 04:00] VITALS: BP 120/72; PULSE 104; RESP 18; TEMP 98.4; O2SAT 100
[2017-12-08] MEDS: HEPARIN SODIUM - SQ 10,000 UNITS/ML VIAL SQ SCH ×2 (04:19→17:54)
[2017-12-08 08:05] VITALS: BP 133/69; PULSE 100; RESP 18; TEMP 98.2; O2SAT 97
[2017-12-08] MEDS: LACTOBACILLUS ACIDOPHILUS TAB PO SCH (09:11)
[2017-12-08] MEDS: GABAPENTIN 300 MG CAP PO SCH ×3 (09:11→17:54)
[2017-12-08] MEDS: FUROSEMIDE 20 MG TAB PO SCH (09:11)
[2017-12-08] MEDS: FLUCONAZOLE 200 MG TAB PO SCH (09:12)
[2017-12-08] MEDS: INSULIN ASPART 1,000 UNITS/10 ML VIAL SQ SCH ×3 (09:12→17:00)
[2017-12-08] MEDS: PANTOPRAZOLE SOD 40 MG DELAYED RELEASE TAB PO SCH (09:12)
[2017-12-08] MEDS: COLLAGENASE OINT 30 GM TUBE TOPICAL SCH (09:13)
[2017-12-08] MEDS: INSULIN ASPART SUPPLEMENTAL SCALE SQ SCH ×3 (09:13→17:00)
[2017-12-08] MEDS: SODIUM CHLORIDE 0.9% FLUSH 10 ML FLUSH IV FLUSH SCH (09:13)
--- NOTE | 2017-12-08 10:59 | HHI.PR ---
Subjective Remarks Follow up of patient with prolonged Hospitalization, due to Right foot ulcer on Cubicin discussed with [employer] and on MDR, I was reading again the ID specialist follow up and no clear discharge on her notes, will get the Clearance for today if possible and discharge after his dose of Cubicin for today, also clear the dose and end date for Diflucan. patient ready for discharge, no nausea, vomit or diarrhea. Objective Vital Signs Date Time Temp Pulse Resp B/P (MAP) Pulse Ox O2 Delivery O2 Flow Rate FiO2 12/08/17 08:05 98.2 100 18 133/69 (90) 97 12/08/17 04:00 Room Air 12/08/17 04:00 98.4 104 18 120/72 (88) 100 12/08/17 00:00 Room Air 12/08/17 00:00 98.5 102 18 118/60 (79) 98 12/07/17 20:00 Room Air 12/07/17 20:00 98.0 88 18 115/66 (82) 97 12/07/17 18:07 98 Room Air 12/07/17 16:00 98.5 92 15 124/71 (88) 98 12/07/17 13:43 96 Room Air 12/07/17 12:00 98.2 88 16 115/61 (79) 96 I/O 12/07/17 12/07/17 12/07/17 12/08/17 12/08/17 12/08/17 07:00 15:00 23:00 07:00 15:00 23:00 Intake Total 500 ml 480 ml 1060 ml Output Total 4000 ml 800 ml Balance -3500 ml -320 ml 1060 ml Intake Oral 500 ml 480 ml 1060 ml Output Urine Total 4000 ml 800 ml # Bowel Movements 0 1 Imaging Last Impressions Lower Extremity Ultrasound 11/11/17 0000 Signed Impressions: Service Date/Time: Saturday, November 11, 2017 09:17 - CONCLUSION: Normal examination. Wm Riley MD Chest X-Ray 11/08/17 0000 Signed Impressions: Service Date/Time: Wednesday, November 08, 2017 10:43 - CONCLUSION: Bibasilar infiltrates. Hector Pierre MD Foot MRI 10/24/17 0000 Signed Impressions: Service Date/Time: Tuesday, October 24, 2017 10:08 - CONCLUSION: 1. Marrow edema and mild marrow enhancement in the proximal fourth metatarsal suspicious for an early osteomyelitis. 2. Complex fluid collection in the lateral foot near the base of the fourth metatarsal, probably an abscess with surrounding cellulitis. 3. Extensive marrow edema in the midfoot as above, probably reactive. Patchy low signal in the navicular and cuboid may indicate some avascular necrosis. 4. Postoperative resection of the fifth toe and fifth metatarsal. Francisco Grider MD Ankle MRI 10/24/17 0000 Signed Impressions: Service Date/Time: Tuesday, October 24, 2017 10:08 - CONCLUSION: 1. No definite evidence for osteomyelitis around the right ankle. Marrow edema however has increased slightly since the prior exam, probably reactive and possibly associated with a developing Charcot arthropathy. Low signal patchy areas within the tarsal navicular are suspicious for developing avascular necrosis. There is edema in the soft tissues of the hindfoot. Trace joint fluid. Francisco Grider MD Foot X-Ray 10/23/17 0000 Signed Impressions: Service Date/Time: October 17:15 - CONCLUSION: 1. 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 Lupillo Webster MD Thoracentesis Ultrasound 10/20/17 0600 Signed Impressions: Service Date/Time: Friday, October 20, 2017 13:03 - CONCLUSION: Uncomplicated ultrasound guided thoracentesis. Smooth Saucedo MD Chest Ultrasound 10/17/17 0000 Signed Impressions: Service Date/Time: Tuesday, October 17, 2017 20:24 - CONCLUSION: A moderate to large right pleural effusion is confirmed sonographically and marked for thoracentesis. Hector Pierre MD Chest CT 10/16/17 0000 Signed Impressions: Service Date/Time: October 20:14 - CONCLUSION: Moderate-sized bilateral pleural effusions with adjacent compressive atelectasis and/or pneumonia. Scattered increased interstitial infiltrates within the perihilar regions and upper lobes bilaterally raising the possibility of pulmonary vascular congestion. Cardiomegaly and coronary artery calcifications are noted. Mild pretracheal and AP window mediastinal lymphadenopathy which is nonspecific. Degenerative changes and mild scoliosis of the thoracic spine. Hector Pierre MD Aspiration 10/16/17 0000 Signed Impressions: Service Date/Time: October 15:48 - CONCLUSION: Uncomplicated aspiration as above. Chetan Escobedo MD Abdomen/Pelvis CT 10/16/17 0000 Signed Impressions: Service Date/Time: October 20:14 - CONCLUSION: 1. Moderate-sized bilateral pleural effusions with adjacent consolidations consistent with atelectasis and/or pneumonia. 2. Tiny calcified nonobstructing bilateral renal calculi. 3. Mild hepatosplenomegaly. 4. Uncomplicated colonic diverticulosis. 5. Minimal free fluid within the pelvis. 6. Streakiness and fluid within the bilateral retroperitoneum inferior to the kidneys and extending into the presacral region. 7. Degenerative changes and scoliosis of the thoracolumbar spine. Hector Pierre MD Knee X-Ray 10/15/17 0000 Signed Impressions: Service Date/Time: Sunday, October 15, 2017 15:26 - CONCLUSION: Large joint effusion otherwise negative. Tu Lim MD FACR Carotid Artery Ultrasound 10/13/17 0000 Signed Impressions: Service Date/Time: Friday, October 13, 2017 16:12 - CONCLUSION: No evidence of flow-limiting carotid stenosis. Wm Riley MD Aorta w/Runoff CTA 10/13/17 0000 Signed Impressions: Service Date/Time: Friday, October 13, 2017 22:41 - CONCLUSION: 1. No aortic occlusive disease. 2. No significant iliac inflow stenosis. 3. No significant outflow stenosis. 4. Diffuse bilateral runoff disease with heavily calcified tibial arteries and significant venous contamination precluding patency evaluation beyond the very proximal calf. 5. Small to moderate bilateral pleural effusions with associated airspace disease at the lung bases, presumably atelectasis. 6. Trace free fluid in the deep pelvis. 7. Ancillary findings include hepatic steatosis, nonobstructing punctate calyceal calculus in the inferior pole of the left kidney and small suprapatellar right joint effusion. Lupillo Webster MD Procedures 10/08/17 Right foot and ankle incision drainage, 5th metatarsal resection, 5th digit amputation 10/25/17 Incision and drainage Right foot/ankle abscess with bone biopsy right 4th metatarsal base; wound vac placement 11/07/17 EGD showing gastritis, esophagitis and hiatal hernia, Colonoscopy showing diverticulosis, internal and external hemorrhoids Other Results Laboratory Tests Test 10/07/17 15:20 10/07/17 16:40 10/07/17 21:59 10/10/17 12:00 Dohle Bodies PRESENT Erythrocyte Sedimentation Rate GREATER THAN 140 mm/hr Blood Urea Nitrogen 25 MG/DL Creatinine 1.51 MG/DL Random Glucose 273 MG/DL Total Protein 7.1 GM/DL Albumin 2.5 GM/DL Calcium Level 8.7 MG/DL Magnesium Level 2.0 MG/DL Alkaline Phosphatase 147 U/L Aspartate Amino Transf (AST/SGOT) 26 U/L Alanine Aminotransferase (ALT/SGPT) 20 U/L Total Bilirubin 0.6 MG/DL Sodium Level 127 MEQ/L Potassium Level 3.5 MEQ/L Chloride Level 94 MEQ/L Carbon Dioxide Level 19.8 MEQ/L Lipase 55 U/L Troponin I LESS THAN 0.02 NG/ML Vancomycin Level Trough 11.6 MCG/ML Test 10/11/17 10:37 10/13/17 17:30 10/16/17 16:07 10/18/17 16:18 Myelocytes % Hematology Comments Differential Total Cells Counted 100 Neutrophils % (Manual) 78 % Band Neutrophils % 6 % Lymphocytes % 7 % Monocytes % 5 % Eosinophils % 1 % Basophils % 1 % Neutrophils # (Manual) 12.6 TH/MM3 Promyelocytes 2 % Toxic Granulation 2+ Toxic Vacuolation PRESENT Acanthocytes OCC Synovial Fluid Color YELLOW Synovial Fluid Appearance MARKED Synovial Fluid WBC 3730 /MM3 Synovial Fluid RBC 520 /MM3 Synovial Fluid Neutrophils 94 % Synovial Fluid Lymphocytes 6 % Synovial Fluid Crystals NONE Synovial Fluid Glucose 94 mg/dL Synovial Fluid Total Protein 1.2 g/dL Activated Partial Thromboplast Time 25.7 SEC Test 10/20/17 14:25 10/22/17 11:32 10/23/17 03:40 10/24/17 20:25 Body Fluid Amylase Source PLEURAL Body Fluid Amylase 11 U/L Pleural Fluid pH 8.0 Pleural Fluid WBC 51 /MM3 Pleural Fluid RBC 20 /MM3 Pleural Fluid Neutrophils 33 % Pleural Fluid Lymphocytes 53 % Pleural Fluid Monocytes 12 % Pleural Fluid Mesothelial Cells 2 % Pleural Fluid Comment Pleural Fluid Total Protein 1.6 GM/DL Pleural Fluid LDH 79 U/L Pleural Fluid Glucose 121 MG/DL Lactic Acid Level 0.7 mmol/L Platelet Estimate NORMAL Platelet Morphology Comment NORMAL Urine Squamous Epithelial Cells <1 /hpf Test 10/25/17 05:15 11/05/17 06:23 11/05/17 06:33 11/08/17 16:50 Prothrombin Time 11.5 SEC Prothromb Time International Ratio 1.1 RATIO B-Type Natriuretic Peptide 576 PG/ML Iron Level 13 MCG/DL Total Iron Binding Capacity 206 MCG/DL Percent Iron Saturation 6.3 % Ferritin 412 NG/ML Vitamin B12 Level 1583 PG/ML Folate GREATER THAN 20.0 NG/ML Blood Smear Pathologist Review Test 11/09/17 05:45 11/09/17 06:56 11/10/17 21:15 11/18/17 04:10 Urine Color LIGHT-YELLOW Urine Turbidity CLEAR Urine pH 6.5 Urine Specific [place] 1.006 Urine Protein TRACE mg/dL Urine Glucose (UA) NEG mg/dL Urine Ketones NEG mg/dL Urine Occult Blood NEG Urine Nitrite NEG Urine Bilirubin NEG Urine Urobilinogen LESS THAN 2.0 MG/DL Urine Leukocyte Esterase NEG Urine RBC 1 /hpf Urine WBC LESS THAN 1 /hpf Microscopic Urinalysis Comment CULT NOT INDICATED Reticulocyte Count 1.9 % Absolute Reticulocyte Count 57.0 MIL/L Haptoglobin 560 MG/DL Lactate Dehydrogenase 526 U/L Direct Bilirubin 0.1 MG/DL Indirect Bilirubin 0.1 MG/DL C-Reactive Protein 12.60 MG/DL Test 11/24/17 16:28 11/29/17 04:34 12/02/17 06:50 Neutrophils (%) (Auto) 64.1 % Lymphocytes (%) (Auto) 20.2 % Monocytes (%) (Auto) 8.6 % Eosinophils (%) (Auto) 6.5 % Basophils (%) (Auto) 0.6 % Neutrophils # (Auto) 5.4 TH/MM3 Lymphocytes # (Auto) 1.7 TH/MM3 Monocytes # (Auto) 0.7 TH/MM3 Eosinophils # (Auto) 0.5 TH/MM3 Basophils # (Auto) 0.1 TH/MM3 CBC Comment DIFF FINAL Differential Comment Blood Urea Nitrogen 16 MG/DL 18 MG/DL Creatinine 0.98 MG/DL 0.96 MG/DL Random Glucose 141 MG/DL 160 MG/DL Total Protein 8.0 GM/DL Albumin 2.3 GM/DL Calcium Level 8.8 MG/DL 8.8 MG/DL Alkaline Phosphatase 94 U/L Aspartate Amino Transf (AST/SGOT) 18 U/L Alanine Aminotransferase (ALT/SGPT) 20 U/L Total Bilirubin 0.2 MG/DL Sodium Level 134 MEQ/L 138 MEQ/L Potassium Level 4.2 MEQ/L 4.7 MEQ/L Chloride Level 99 MEQ/L 103 MEQ/L Carbon Dioxide Level 27.5 MEQ/L 25.6 MEQ/L White Blood Count 9.3 TH/MM3 Red Blood Count 3.36 MIL/MM3 Hemoglobin 8.5 GM/DL Hematocrit 25.5 % Mean Corpuscular Volume 75.8 FL Mean Corpuscular Hemoglobin 25.2 PG Mean Corpuscular Hemoglobin Concent 33.2 % Red Cell Distribution Width 17.3 % Platelet Count 473 TH/MM3 Mean Platelet Volume 7.6 FL Anion Gap 9 MEQ/L Estimat Glomerular Filtration Rate 80 ML/MIN Total Creatine Kinase 47 U/L Objective Remarks GENERAL: This is a well-nourished, well-developed patient, in no apparent distress. CARDIOVASCULAR: Normal rate and regular rhythm without murmurs, gallops, or rubs. RESPIRATORY: Good respiratory efforts. Breath sounds equal and clear to auscultation bilaterally. GASTROINTESTINAL: Abdomen soft, non-tender, non-distended. Normal active bowel sounds MUSCULOSKELETAL: Right foot is wrapped. Dressing appear intact. NEURO: Alert & Oriented x4 to person, place, time, situation. Moves all ext x4 PSYCH: Appropriate mood and affect. Medications and IVs Current Medications Medications (Trade) Dose Ordered Sig/Anna Route Start Time Stop Time Status Last Admin (NS Flush) 2 ml UNSCH PRN IV FLUSH 10/07/17 16:45 12/04/17 02:49 (NS Flush) 2 ml BID IV FLUSH 10/07/17 21:00 12/08/17 09:13 (Narcan Inj) 0.4 mg UNSCH PRN IV PUSH 10/07/17 16:45 (D50w (Vial) Inj) 50 ml UNSCH PRN IV PUSH 10/08/17 10:30 (Glucagon Inj) 1 mg UNSCH PRN OTHER 10/08/17 10:30 (Lactinex) 1 tab Q12HR PO 10/08/17 21:00 12/08/17 09:11 (NovoLOG INJ) 5 units TIDAC SQ 10/12/17 08:00 12/08/17 09:12 (Levemir Inj) 15 units HS SQ 10/12/17 21:00 12/07/17 20:58 (Restoril) 15 mg HS PRN PO 10/13/17 12:45 11/29/17 23:57 (Tylenol) 500 mg Q4H PRN PO 10/13/17 13:15 11/25/17 00:14 (Santyl Oint) 1 applic DAILY TOPICAL 10/22/17 12:00 12/08/17 09:13 (Neurontin) 600 mg TID PO 10/23/17 18:00 12/08/17 09:11 Daptomycin 640 mg/ Sodium Chloride 100 ml @ 200 mls/hr Q24H IV 10/31/17 16:00 12/08/17 15:59 12/07/17 16:34 (Lasix) 20 mg DAILY PO 11/06/17 09:00 12/08/17 09:11 (Protonix) 40 mg DAILY PO 11/09/17 09:00 12/08/17 09:12 (NovoLOG SUPPLEMENTAL SCALE) 1 ACHS SLIDING SCALE SQ 11/08/17 17:00 12/08/17 09:13 (Percocet 5-325 Mg) 1 tab Q6H PRN PO 11/12/17 11:15 12/05/17 17:45 (Percocet 7.5-325 Mg) 1 tab Q6H PRN PO 11/12/17 11:15 12/08/17 09:12 (Morphine Inj) 1 mg BID PRN IV PUSH 11/14/17 08:45 12/07/17 16:36 (Heparin Inj) 5,000 units Q12H SQ 11/28/17 17:00 12/08/17 04:19 (Diflucan) 200 mg DAILY PO 12/01/17 15:30 12/08/17 09:12 A/P Assessment and Plan (1) Osteomyelitis of foot ICD Code: M86.9 - Osteomyelitis, unspecified (2) Leukocytosis ICD Code: D72.829 - Elevated white blood cell count, unspecified (3) Dehydration with hyponatremia ICD Code: E87.1 - Hypo-osmolality and hyponatremia (4) Acute kidney injury ICD Code: N17.9 - Acute kidney failure, unspecified (5) Sepsis ICD Code: A41.9 - Sepsis, unspecified organism Status: Acute (6) Diabetic foot ulcer ICD Code: E11.621 - Type 2 diabetes mellitus with foot ulcer; L97.509 - Non- pressure chronic ulcer of other part of unspecified foot with unspecified severity Status: Acute (7) Acute renal failure superimposed on stage 3 chronic kidney disease ICD Code: N17.9 - Acute kidney failure, unspecified; N18.3 - Chronic kidney disease, stage 3 (moderate) (8) Bacteremia due to Gram-positive bacteria ICD Code: R78.81 - Bacteremia (9) Postoperative anemia ICD Code: D64.9 - Anemia, unspecified 57-year-old male who presented with sepsis S. aureus Sepsis-- Secondary to diabetic foot infection, bacteremia, right foot osteomyelitis: Right foot osteomyelitis:S /P irrigation/debridement with wound vac placement 06/04. VAC removed. Status post incision and drainage, fifth metatarsal resection, fifth digit amputation on 10/08/17. Podiatry following - Currently on Cubicin, stop date 12/08/17. Infectious disease signed off. - Clarified with the patient that he can be out of bed with assistance. Nonweightbearing on the right lower extremity per podiatry. - Repeat wound culture per podiatry on 11/27/17 growing Kimberly. Patient started on Diflucan. -May benefit from wound care follow-up at the wound care clinic if that can be arranged. -Awaiting for discharge recommendations by ID specialist. Right heel pressure ulcer - dry - off weight bearing - appreciate Podiatry recommendations Right knee effusion-resolved continue to monitor - Appreciate orthopedic surgery recommendations. cultures are negative. Bilateral pleural effusion:-improved clinically Elevated BNP- clinically appears comfortable r/io underlying CHF- ? from high out failure from anemia - pulmonary - stable-respiratory [place]- no SOB- up and ambulating - Appreciate pulmonology recommendations. Status post right-sided thoracentesis. Cytology is negative for malignant cells. - 2D echo- EF 55% - S/P Lasix 20 mg IV 11/05 - Lasix 20 mg po daily Peripheral vascular disease: -Appreciate vascular surgery recommendations. Per vascular surgery, no surgical intervention is planned. Postoperative anemia: H and H stable S/P EGD/colonoscopy- gastritis, hemorrhoids - PPI Diabetes mellitus type 2: - good readings -Continue Levemir. Monitor Accu-Cheks and cover with sliding scale insulin. Continue preprandial insulin as well. Acute kidney injury superimposed on chronic kidney disease stage III- good urine output -Creatinine continues to improve. Stage one pressure ulcer. -Patient needs turning every 2 hours. PT working with patient. DVT prophylaxis: Heparin No clear discharge by ID specialist will try to get discharge orders now. Discharge Planning Once cleared by ID specialist. Israel Valente MD Dec 08, 2017 10:59
--- NOTE | 2017-12-08 11:18 | HHI.IDPN ---
Subjective Subjective Remarks Patient seen and examined on behalf of Dr. Quinteros Reconsult for infection disease requested by Dr. Hobbs for reevaluation of right fifth toe osteomyelitis with associated cellulitis, gram-positive bacteremia and sepsis with recent wound culture positive for Kimberly Albicans. Mr. Braxton is a 57-year-old male with past medical history significant for diabetes type 2, prior diabetic foot ulcer treated in October 2016 thereafter was hospitalized from May 08, 2017 to May 29, 2017 due to foot ulcer. During that hospitalization patient underwent surgical debridement with wound VAC placement. Patient reports that he was seen by Dr. Pritchard during that admission. Patient reports that he was discharged on IV ceftriaxone using a PICC line. Patient had home health care visits him and continue to receive wound VAC changes at home. He also was subsequently seen at wound care clinic for ongoing wound care as well as [facility] clinic for his primary care needs. Patient reports that his medications were recently adjusted and a new insulin was introduced. Patient reports that he was diagnosed with a possible staph or strep infection and has been on oral Bactrim approximately 2 weeks prior to admission. Due to worsening foot infection as well as possible reaction to the new insulin patient presented to the emergency department [facility]. Patient reports that he was having fevers, chills, loss of appetite and diarrhea for the past 2 days associated with frequent urination. Patient denies any dysuria. He reports dizziness and reported history of falls 3 days ago while on the toilet. Patient's reports that she was unaware of this history of fall. He denies any head injury. Patient reports hitting his right foot and shoulder but that he was able to get off the floor by himself. Patient had a sepsis workup initiated on admission. Wound cultures are positive for strep as well as blood cultures are now positive for gram-positive likely strep. Repeat blood cultures have been ordered. Podiatry is seeing the patient and there is a plan for surgical intervention and possible amputation of the involved digit. Infectious disease is consulted for evaluation and management of right fifth toe osteomyelitis with associated cellulitis, gram-positive bacteremia and sepsis. Notes reviewed patient has been afebrile but complains of night sweats waking up this morning with his sheets "soaking wet" Right foot pain controlled off of Morphine seems slightly irritated wound care is not doing his dressing changes any longer denies any rash denies any N/V denies any dysuria or diarrhea afebrile WBC WNL 11/29 Wound cx positive for Kimberly Albicans 10/31 BCX with no growth Antibiotics IV DAPTOMYCIN PO DIFLUCAN Current Medications Medications (Trade) Dose Ordered Sig/Anna Route Start Time Stop Time Status Last Admin (NS Flush) 2 ml UNSCH PRN IV FLUSH 10/07/17 16:45 12/04/17 02:49 (NS Flush) 2 ml BID IV FLUSH 10/07/17 21:00 12/08/17 09:13 (Narcan Inj) 0.4 mg UNSCH PRN IV PUSH 10/07/17 16:45 (D50w (Vial) Inj) 50 ml UNSCH PRN IV PUSH 10/08/17 10:30 (Glucagon Inj) 1 mg UNSCH PRN OTHER 10/08/17 10:30 (Lactinex) 1 tab Q12HR PO 10/08/17 21:00 12/08/17 09:11 (NovoLOG INJ) 5 units TIDAC SQ 10/12/17 08:00 12/08/17 09:12 (Levemir Inj) 15 units HS SQ 10/12/17 21:00 12/07/17 20:58 (Restoril) 15 mg HS PRN PO 10/13/17 12:45 11/29/17 23:57 (Tylenol) 500 mg Q4H PRN PO 10/13/17 13:15 11/25/17 00:14 (Santyl Oint) 1 applic DAILY TOPICAL 10/22/17 12:00 12/08/17 09:13 (Neurontin) 600 mg TID PO 10/23/17 18:00 12/08/17 09:11 Daptomycin 640 mg/ Sodium Chloride 100 ml @ 200 mls/hr Q24H IV 10/31/17 16:00 12/08/17 15:59 12/07/17 16:34 (Lasix) 20 mg DAILY PO 11/06/17 09:00 12/08/17 09:11 (Protonix) 40 mg DAILY PO 11/09/17 09:00 12/08/17 09:12 (NovoLOG SUPPLEMENTAL SCALE) 1 ACHS SLIDING SCALE SQ 11/08/17 17:00 12/08/17 09:13 (Percocet 5-325 Mg) 1 tab Q6H PRN PO 11/12/17 11:15 12/05/17 17:45 (Percocet 7.5-325 Mg) 1 tab Q6H PRN PO 11/12/17 11:15 12/08/17 09:12 (Morphine Inj) 1 mg BID PRN IV PUSH 11/14/17 08:45 12/07/17 16:36 (Heparin Inj) 5,000 units Q12H SQ 11/28/17 17:00 12/08/17 04:19 (Diflucan) 200 mg DAILY PO 12/01/17 15:30 12/08/17 09:12 Lines Line sites with no e.o infection Past Medical History Past Medical History DM II Right foot ulcer with possible osteomyelitis in the past. Has received IV antibiotics long-term using a PICC line in the past. Renal stones Past Surgical History Right foot debridement of wound removal of kidney stones Tonsillitis (Ami Prado) Allergies: Coded Allergies: No Known Allergies (Unverified Allergy, Unknown, 11/28/17) Uncoded Allergies: vietnamese dressing (Allergy, Severe, Anaphylaxis, 10/07/17) Objective . Vital Signs Date Time Temp Pulse Resp B/P (MAP) Pulse Ox O2 Delivery O2 Flow Rate FiO2 12/08/17 08:05 98.2 100 18 133/69 (90) 97 12/08/17 04:00 Room Air 12/08/17 04:00 98.4 104 18 120/72 (88) 100 12/08/17 00:00 Room Air 12/08/17 00:00 98.5 102 18 118/60 (79) 98 12/07/17 20:00 Room Air 12/07/17 20:00 98.0 88 18 115/66 (82) 97 12/07/17 18:07 98 Room Air 12/07/17 16:00 98.5 92 15 124/71 (88) 98 12/07/17 13:43 96 Room Air 12/07/17 12:00 98.2 88 16 115/61 (79) 96 Imaging Last Impressions Lower Extremity Ultrasound 11/11/17 0000 Signed Impressions: Service Date/Time: Saturday, November 11, 2017 09:17 - CONCLUSION: Normal examination. Wm Riley MD Chest X-Ray 11/08/17 0000 Signed Impressions: Service Date/Time: Wednesday, November 08, 2017 10:43 - CONCLUSION: Bibasilar infiltrates. Hector Pierre MD Foot MRI 10/24/17 0000 Signed Impressions: Service Date/Time: Tuesday, October 24, 2017 10:08 - CONCLUSION: 1. Marrow edema and mild marrow enhancement in the proximal fourth metatarsal suspicious for an early osteomyelitis. 2. Complex fluid collection in the lateral foot near the base of the fourth metatarsal, probably an abscess with surrounding cellulitis. 3. Extensive marrow edema in the midfoot as above, probably reactive. Patchy low signal in the navicular and cuboid may indicate some avascular necrosis. 4. Postoperative resection of the fifth toe and fifth metatarsal. Francisco Grider MD Ankle MRI 10/24/17 0000 Signed Impressions: Service Date/Time: Tuesday, October 24, 2017 10:08 - CONCLUSION: 1. No definite evidence for osteomyelitis around the right ankle. Marrow edema however has increased slightly since the prior exam, probably reactive and possibly associated with a developing Charcot arthropathy. Low signal patchy areas within the tarsal navicular are suspicious for developing avascular necrosis. There is edema in the soft tissues of the hindfoot. Trace joint fluid. Francisco Grider MD Foot X-Ray 10/23/17 0000 Signed Impressions: Service Date/Time: October 17:15 - CONCLUSION: 1. 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 Lupillo Webster MD Thoracentesis Ultrasound 10/20/17 0600 Signed Impressions: Service Date/Time: Friday, October 20, 2017 13:03 - CONCLUSION: Uncomplicated ultrasound guided thoracentesis. Smooth Saucedo MD Chest Ultrasound 10/17/17 0000 Signed Impressions: Service Date/Time: Tuesday, October 17, 2017 20:24 - CONCLUSION: A moderate to large right pleural effusion is confirmed sonographically and marked for thoracentesis. Hector Pierre MD Chest CT 10/16/17 0000 Signed Impressions: Service Date/Time: October 20:14 - CONCLUSION: Moderate-sized bilateral pleural effusions with adjacent compressive atelectasis and/or pneumonia. Scattered increased interstitial infiltrates within the perihilar regions and upper lobes bilaterally raising the possibility of pulmonary vascular congestion. Cardiomegaly and coronary artery calcifications are noted. Mild pretracheal and AP window mediastinal lymphadenopathy which is nonspecific. Degenerative changes and mild scoliosis of the thoracic spine. Hector Pierre MD Aspiration 10/16/17 0000 Signed Impressions: Service Date/Time: October 15:48 - CONCLUSION: Uncomplicated aspiration as above. Chetan Escobedo MD Abdomen/Pelvis CT 10/16/17 0000 Signed Impressions: Service Date/Time: October 20:14 - CONCLUSION: 1. Moderate-sized bilateral pleural effusions with adjacent consolidations consistent with atelectasis and/or pneumonia. 2. Tiny calcified nonobstructing bilateral renal calculi. 3. Mild hepatosplenomegaly. 4. Uncomplicated colonic diverticulosis. 5. Minimal free fluid within the pelvis. 6. Streakiness and fluid within the bilateral retroperitoneum inferior to the kidneys and extending into the presacral region. 7. Degenerative changes and scoliosis of the thoracolumbar spine. Hector Pierre MD Knee X-Ray 10/15/17 0000 Signed Impressions: Service Date/Time: Sunday, October 15, 2017 15:26 - CONCLUSION: Large joint effusion otherwise negative. Tu Lim MD FACR Carotid Artery Ultrasound 10/13/17 0000 Signed Impressions: Service Date/Time: Friday, October 13, 2017 16:12 - CONCLUSION: No evidence of flow-limiting carotid stenosis. Wm Riley MD Aorta w/Runoff CTA 10/13/17 0000 Signed Impressions: Service Date/Time: Friday, October 13, 2017 22:41 - CONCLUSION: 1. No aortic occlusive disease. 2. No significant iliac inflow stenosis. 3. No significant outflow stenosis. 4. Diffuse bilateral runoff disease with heavily calcified tibial arteries and significant venous contamination precluding patency evaluation beyond the very proximal calf. 5. Small to moderate bilateral pleural effusions with associated airspace disease at the lung bases, presumably atelectasis. 6. Trace free fluid in the deep pelvis. 7. Ancillary findings include hepatic steatosis, nonobstructing punctate calyceal calculus in the inferior pole of the left kidney and small suprapatellar right joint effusion. Lupillo Webster MD Physical Exam GENERAL: This is a thin, chronically ill appearing male patient, INAD. Lying in hospital bed. Awake and alert. SKIN: Cool and dry. No generalized rash HEAD: Atraumatic. Normocephalic. EYES: Pupils equal round and reactive. EOM full and intact. No scleral icterus. No injection or drainage. ENT: Moist mucosa, no lesions, no oral thrush NECK: Trachea midline. CARDIOVASCULAR: Regular rate and rhythm. RESPIRATORY: Clear to auscultation. Nonlabored. GASTROINTESTINAL: Abdomen soft, non-tender, nondistended. MUSCULOSKELETAL: Right foot in dressing, removed revealing wound along lateral aspect with exposed tendon and bone. Granulation tissue present over distal aspect, packing noted distally. Right heel necrotic. Right 4th digit with purplish discoloration. NEUROLOGICAL: Awake and alert. Moves all extremities spontaneously. Nonfocal exam. Normal speech. PSYCHIATRIC: Calm and cooperative. Pleasant. IV line sites with no evidence of infection. (Ami Prado) Assessment & Plan Remarks Sepsis present on admission Strep bacteremia secondary to right foot osteomyelitis and cellulitis Staph MSSA bacteremia high grade. Strep not AB,D and Staph infection Right foot fifth MPJ osteomyelitis Right foot cellulitis -s/p removal of wound vac -repeat Wound cx positive for Kimberly Albicans, started on po Diflucan, day 8 -per wound care note 12/01,~40% red hypergranulated tissue, ~40% tendon, ~10% bone, and ~10% facia, tunneling noted at 9 o'clock and goes to 12 o'clock measuring 1.2cm Pneumonia with bilateral pleural effusions ? HCAP vs septic emboli. Right knee septic arthritis. Diabetes type 2 uncontrolled Acute renal failure: Sepsis, prerenal: improving Fevers, not as high, resolved - non-localizing - ?drug fever Anemia, chronic, stable Recommendations: Continue Cubicin (stop date: 12/08/2017 in chart). To be discharged later today after last dose of IV abx given. CBC with diff, CMP, CRP and Serum CK every Friday while on Cubicin. Last CK was 47. Continue on Diflucan Continue wound care Continue to monitor temps Monitor progress Further recommendations to follow (Ami Prado) Remarks The exam, history, and the medical decision-making described in the above note were completed with the assistance of the mid-level provider. I reviewed and agree with the findings presented. I attest that I had a [id number] encounter with the patient on the same day, and personally performed and documented my assessment and findings in the medical record. Puneet Soto: ok to dc from ID standpoint. Diflucan oral for 2 weeks on DC. Last dose of Dapto IV today. Will sign off please call back if any change in clinical condition or questions. (Chuyita Quinteros MD) Ami Prado Dec 08, 2017 11:18 Chuyita Quinteros MD Dec 08, 2017 15:26
[2017-12-08 12:20] VITALS: BP 97/54; PULSE 94; RESP 18; TEMP 97.3; O2SAT 99
[2017-12-08] MEDS ORDERED: DIFL100T PO (13:23)
[2017-12-08] MEDS ORDERED: OXYC1TAB63 PO (13:53)
[2017-12-08] MEDS ORDERED: PANT40TA3 PO (13:53)
[2017-12-08] MEDS ORDERED: FURO20TA PO (13:53)
--- NOTE | 2017-12-08 13:58 | HHI.DS ---
Discharge Summary Admission Date Oct 07, 2017 at 17:29 Discharge Date: Dec 08, 2017 Admitting Diagnosis Leg ulcer (1) Osteomyelitis of foot ICD Code: M86.9 - Osteomyelitis, unspecified Diagnosis: Principal (2) Leukocytosis ICD Code: D72.829 - Elevated white blood cell count, unspecified Diagnosis: Principal (3) Dehydration with hyponatremia ICD Code: E87.1 - Hypo-osmolality and hyponatremia Diagnosis: Principal (4) Acute kidney injury ICD Code: N17.9 - Acute kidney failure, unspecified Diagnosis: Principal (5) Sepsis ICD Code: A41.9 - Sepsis, unspecified organism Diagnosis: Principal Status: Acute (6) Diabetic foot ulcer ICD Code: E11.621 - Type 2 diabetes mellitus with foot ulcer; L97.509 - Non- pressure chronic ulcer of other part of unspecified foot with unspecified severity Diagnosis: Principal Status: Acute (7) Bacteremia due to Gram-positive bacteria ICD Code: R78.81 - Bacteremia Diagnosis: Principal (8) Postoperative anemia ICD Code: D64.9 - Anemia, unspecified Diagnosis: Principal Procedures 10/08/17 Right foot and ankle incision drainage, 5th metatarsal resection, 5th digit amputation 10/25/17 Incision and drainage Right foot/ankle abscess with bone biopsy right 4th metatarsal base; wound vac placement 11/07/17 EGD showing gastritis, esophagitis and hiatal hernia, Colonoscopy showing diverticulosis, internal and external hemorrhoids Brief History - From Admission Written by Andreina Crabtree, acting as scribe for Dr. Pena on 10/07/17 at 17:01. 7-year-old male accompanied by at bedside with a past medical history of diabetes as well as kidney stones. Presents to the emergency department on 's request as well as PCP recommendations. reports that right foot wound began October 2016 was hospitalized from 05/08/17-05/29/17 due to foot ulcer. During this hospitalization patient underwent surgical debridement with wound VAC placement and was discharged on IV ceftriaxone through PICC line. Was visited by home healthcare to assist with right foot dressing changes and antibiotic administration. He subsequently followed up with [facility] for ongoing care of his diabetes. reports that he was recently started on a new insulin for treatment of diabetes. He followed up with in the wound care center for wound care which he repots he had every Friday. He has been receiving wound debridement and application of silver nitrate every Friday. He also reports that he was recently treated for an on the right foot with oral oral antibiotics. repots that she has been assisting with dressing changes and this was done this past Friday. Patient has been staying with his mother therefore did not see him again until today. She became concerned and felt that he was not doing well and called [facility] to instructed patient to come to the ED. feels as if patient might be having a reaction to the new insulin on top of worsening foot infection. and patient repot that he has bas been experiencing fevers, chills, loss of appetite, diarrhea for the past 2 days, frequent urination, denies dysuria. Prior to this denies any fevers or chills, N /V/D, SOB, cough or chest pain in the prior 2 weeks. He does endorses dizziness and repots falling the past 3 days while on the toilet. states that she was unaware of this until today. He denies any head injury, repots hitting right foot and shoulder, he was able to get up out of the floor by his self. Patient also states that previously to treat his DM he was taking Levemir (16- 35 units a day) and NovoLog previously and states that he tolerated both well with good control of DM. Imaging Last Impressions Lower Extremity Ultrasound 11/11/17 0000 Signed Impressions: Service Date/Time: Saturday, November 11, 2017 09:17 - CONCLUSION: Normal examination. Wm Riley MD Chest X-Ray 11/08/17 0000 Signed Impressions: Service Date/Time: Wednesday, November 08, 2017 10:43 - CONCLUSION: Bibasilar infiltrates. Hector Pierre MD Foot MRI 10/24/17 0000 Signed Impressions: Service Date/Time: Tuesday, October 24, 2017 10:08 - CONCLUSION: 1. Marrow edema and mild marrow enhancement in the proximal fourth metatarsal suspicious for an early osteomyelitis. 2. Complex fluid collection in the lateral foot near the base of the fourth metatarsal, probably an abscess with surrounding cellulitis. 3. Extensive marrow edema in the midfoot as above, probably reactive. Patchy low signal in the navicular and cuboid may indicate some avascular necrosis. 4. Postoperative resection of the fifth toe and fifth metatarsal. Francisco Grider MD Ankle MRI 10/24/17 0000 Signed Impressions: Service Date/Time: Tuesday, October 24, 2017 10:08 - CONCLUSION: 1. No definite evidence for osteomyelitis around the right ankle. Marrow edema however has increased slightly since the prior exam, probably reactive and possibly associated with a developing Charcot arthropathy. Low signal patchy areas within the tarsal navicular are suspicious for developing avascular necrosis. There is edema in the soft tissues of the hindfoot. Trace joint fluid. Francisco Grider MD Foot X-Ray 10/23/17 0000 Signed Impressions: Service Date/Time: October 17:15 - CONCLUSION: 1. 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 Lupillo Webster MD Thoracentesis Ultrasound 10/20/17 0600 Signed Impressions: Service Date/Time: Friday, October 20, 2017 13:03 - CONCLUSION: Uncomplicated ultrasound guided thoracentesis. Smooth Saucedo MD Chest Ultrasound 10/17/17 0000 Signed Impressions: Service Date/Time: Tuesday, October 17, 2017 20:24 - CONCLUSION: A moderate to large right pleural effusion is confirmed sonographically and marked for thoracentesis. Hector Pierre MD Chest CT 10/16/17 0000 Signed Impressions: Service Date/Time: October 20:14 - CONCLUSION: Moderate-sized bilateral pleural effusions with adjacent compressive atelectasis and/or pneumonia. Scattered increased interstitial infiltrates within the perihilar regions and upper lobes bilaterally raising the possibility of pulmonary vascular congestion. Cardiomegaly and coronary artery calcifications are noted. Mild pretracheal and AP window mediastinal lymphadenopathy which is nonspecific. Degenerative changes and mild scoliosis of the thoracic spine. Hector Pierre MD Aspiration 10/16/17 0000 Signed Impressions: Service Date/Time: October 15:48 - CONCLUSION: Uncomplicated aspiration as above. Chetan Escobedo MD Abdomen/Pelvis CT 10/16/17 0000 Signed Impressions: Service Date/Time: October 20:14 - CONCLUSION: 1. Moderate-sized bilateral pleural effusions with adjacent consolidations consistent with atelectasis and/or pneumonia. 2. Tiny calcified nonobstructing bilateral renal calculi. 3. Mild hepatosplenomegaly. 4. Uncomplicated colonic diverticulosis. 5. Minimal free fluid within the pelvis. 6. Streakiness and fluid within the bilateral retroperitoneum inferior to the kidneys and extending into the presacral region. 7. Degenerative changes and scoliosis of the thoracolumbar spine. Hector Pierre MD Knee X-Ray 10/15/17 0000 Signed Impressions: Service Date/Time: Sunday, October 15, 2017 15:26 - CONCLUSION: Large joint effusion otherwise negative. Tu Lim MD FACR Carotid Artery Ultrasound 10/13/17 0000 Signed Impressions: Service Date/Time: Friday, October 13, 2017 16:12 - CONCLUSION: No evidence of flow-limiting carotid stenosis. Wm Riley MD Aorta w/Runoff CTA 10/13/17 0000 Signed Impressions: Service Date/Time: Friday, October 13, 2017 22:41 - CONCLUSION: 1. No aortic occlusive disease. 2. No significant iliac inflow stenosis. 3. No significant outflow stenosis. 4. Diffuse bilateral runoff disease with heavily calcified tibial arteries and significant venous contamination precluding patency evaluation beyond the very proximal calf. 5. Small to moderate bilateral pleural effusions with associated airspace disease at the lung bases, presumably atelectasis. 6. Trace free fluid in the deep pelvis. 7. Ancillary findings include hepatic steatosis, nonobstructing punctate calyceal calculus in the inferior pole of the left kidney and small suprapatellar right joint effusion. Lupillo Webster MD PE at Discharge GENERAL: This is a well-nourished, well-developed patient, in no apparent distress. CARDIOVASCULAR: Normal rate and regular rhythm without murmurs, gallops, or rubs. RESPIRATORY: Good respiratory efforts. Breath sounds equal and clear to auscultation bilaterally. GASTROINTESTINAL: Abdomen soft, non-tender, non-distended. Normal active bowel sounds MUSCULOSKELETAL: Right foot is wrapped. Dressing appear intact. NEURO: Alert & Oriented x4 to person, place, time, situation. Moves all ext x4 PSYCH: Appropriate mood and affect. Hospital Course Follow up of patient with prolonged Hospitalization, due to Right foot ulcer on Cubicin discussed with Siebel Developer and on MDR, I was reading again the ID specialist follow up and no clear discharge on her notes, will get the Clearance for today if possible and discharge after his dose of Cubicin for today, also clear the dose and end date for Diflucan. patient ready for discharge, no nausea, vomit or diarrhea. Assessment and Plan 57-year-old male who presented with sepsis S. aureus Sepsis-- Secondary to diabetic foot infection, bacteremia, right foot osteomyelitis: Right foot osteomyelitis:S /P irrigation/debridement with wound vac placement 06/04. VAC removed. Status post incision and drainage, fifth metatarsal resection, fifth digit amputation on 10/08/17. Podiatry following - Currently on Cubicin, stop date 12/08/17. Infectious disease signed off. - Clarified with the patient that he can be out of bed with assistance. Nonweightbearing on the right lower extremity per podiatry. - Repeat wound culture per podiatry on 11/27/17 growing Kimberly. Patient started on Diflucan. -May benefit from wound care follow-up at the wound care clinic if that can be arranged. -Discussed with ID specialist Doctor Aldair given Diflucan for two weeks. Right heel pressure ulcer - dry - off weight bearing - appreciate Podiatry recommendations Right knee effusion-resolved continue to monitor - Appreciate orthopedic surgery recommendations. cultures are negative. Bilateral pleural effusion:-improved clinically Elevated BNP- clinically appears comfortable r/io underlying CHF- ? from high out failure from anemia - pulmonary - stable-respiratory [place]- no SOB- up and ambulating - Appreciate pulmonology recommendations. Status post right-sided thoracentesis. Cytology is negative for malignant cells. - 2D echo- EF 55% - S/P Lasix 20 mg IV 11/05 - Lasix 20 mg po daily Peripheral vascular disease: -Appreciate vascular surgery recommendations. Per vascular surgery, no surgical intervention is planned. Postoperative anemia: H and H stable S/P EGD/colonoscopy- gastritis, hemorrhoids - PPI Diabetes mellitus type 2: - good readings -Continue Levemir. Monitor Accu-Cheks and cover with sliding scale insulin. Continue preprandial insulin as well. Acute kidney injury superimposed on chronic kidney disease stage III- good urine output -Creatinine continues to improve. Stage one pressure ulcer. -Patient needs turning every 2 hours. PT working with patient. DVT prophylaxis: Heparin No clear discharge by ID specialist will try to get discharge orders now. Discharge Planning Discharge today. Pt Condition on Discharge: Good Discharge Disposition: Discharge Home Discharge Time: > 30 minutes Discharge Instructions DIET: Follow Instructions for: Heart Healthy Diet, Diabetic Diet Activities you can perform: Regular-No Restrictions Israel Valente MD Dec 08, 2017 13:58
[2017-12-08] MEDS: MORPHINE SULFATE 2 MG/ML SYRINGE IV PUSH PRN (15:05)
[2017-12-08] MEDS: SODIUM CHLORIDE 0.9% IV SCH (15:51)
[2017-12-08] MEDS: DAPTOMYCIN IV SCH (15:51)
== END 2017-12-08 18:44 | disposition home or self-care (01) | DRG 853 ==
LOC: NEPE 12:29 → NEDA 17:29 → N04A 19:03
PROVIDERS: ADMIT Internal Medicine; ATTEND Internal Medicine
PROC: 0QBN0ZX Excision of Right Metatarsal, Open Approach, Diagnostic (ICD-10-PCS; 2017-10-08)
PROC: 0S9F0ZZ Drainage of Right Ankle Joint, Open Approach (ICD-10-PCS; 2017-10-08)
PROC: 0J9Q0ZZ Drainage of Right Foot Subcutaneous Tissue and Fascia, Open Approach (ICD-10-PCS; 2017-10-08)
PROC: 0Y6X0Z0 Detachment at Right 5th Toe, Complete, Open Approach (ICD-10-PCS; principal; 2017-10-08 15:59)
PROC: 0LD Tendons, Extraction (ICD-10-PCS; 2017-10-10)
PROC: 30233N1 Transfusion of Nonautologous Red Blood Cells into Peripheral Vein, Percutaneous Approach (ICD-10-PCS; 2017-10-10)
PROC: 0H9NXZZ Drainage of Left Foot Skin, External Approach (ICD-10-PCS; 2017-10-11)
PROC: 0JBR0ZZ Excision of Left Foot Subcutaneous Tissue and Fascia, Open Approach (ICD-10-PCS; 2017-10-15)
PROC: 0JDQ0ZZ Extraction of Right Foot Subcutaneous Tissue and Fascia, Open Approach (ICD-10-PCS; 2017-10-15)
PROC: 0S9C3ZZ Drainage of Right Knee Joint, Percutaneous Approach (ICD-10-PCS; 2017-10-16)
PROC: 0W993ZZ Drainage of Right Pleural Cavity, Percutaneous Approach (ICD-10-PCS; 2017-10-20)
PROC: 0QBN0ZX Excision of Right Metatarsal, Open Approach, Diagnostic (ICD-10-PCS; 2017-10-25)
PROC: 0JBQ0ZZ Excision of Right Foot Subcutaneous Tissue and Fascia, Open Approach (ICD-10-PCS; 2017-10-25)
PROC: 0DJD8ZZ Inspection of Lower Intestinal Tract, Via Natural or Artificial Opening Endoscopic (ICD-10-PCS; 2017-11-07)
PROC: 0DB98ZX Excision of Duodenum, Via Natural or Artificial Opening Endoscopic, Diagnostic (ICD-10-PCS; 2017-11-07)
PROC: 0DB78ZX Excision of Stomach, Pylorus, Via Natural or Artificial Opening Endoscopic, Diagnostic (ICD-10-PCS; 2017-11-07)
PROC: 0DB38ZX Excision of Lower Esophagus, Via Natural or Artificial Opening Endoscopic, Diagnostic (ICD-10-PCS; 2017-11-07)
DX: A41.01 Sepsis due to Methicillin susceptible Staphylococcus aureus (principal); J18.9 Pneumonia, unspecified organism; I76 Septic arterial embolism; J90 Pleural effusion, not elsewhere classified; I13.0 Hypertensive heart and chronic kidney disease with heart failure and stage 1 through stage 4 chronic kidney disease, or unspecified chronic kidney disease; I96 Gangrene, not elsewhere classified; N17.9 Acute kidney failure, unspecified; N18.3 Chronic kidney disease, stage 3 (moderate); E11.52 Type 2 diabetes mellitus with diabetic peripheral angiopathy with gangrene; I50.9 Heart failure, unspecified; E87.1 Hypo-osmolality and hyponatremia; L03.115 Cellulitis of right lower limb; M86.671 Other chronic osteomyelitis, right ankle and foot; L02.611 Cutaneous abscess of right foot; L02.612 Cutaneous abscess of left foot; L97.319 Non-pressure chronic ulcer of right ankle with unspecified severity; M00.9 Pyogenic arthritis, unspecified; L02.415 Cutaneous abscess of right lower limb; E11.22 Type 2 diabetes mellitus with diabetic chronic kidney disease; E11.621 Type 2 diabetes mellitus with foot ulcer; E11.628 Type 2 diabetes mellitus with other skin complications; E11.649 Type 2 diabetes mellitus with hypoglycemia without coma; E11.69 Type 2 diabetes mellitus with other specified complication; E86.0 Dehydration; R50.2 Drug induced fever; L97.519 Non-pressure chronic ulcer of other part of right foot with unspecified severity; R00.0 Tachycardia, unspecified; F29 Unspecified psychosis not due to a substance or known physiological condition; L89.611 Pressure ulcer of right heel, stage 1; B95.5 Unspecified streptococcus as the cause of diseases classified elsewhere; L97.529 Non-pressure chronic ulcer of other part of left foot with unspecified severity; K57.30 Diverticulosis of large intestine without perforation or abscess without bleeding; K64.4 Residual hemorrhoidal skin tags; K64.8 Other hemorrhoids; K29.70 Gastritis, unspecified, without bleeding; K20.9 Esophagitis, unspecified; K44.9 Diaphragmatic hernia without obstruction or gangrene; E11.42 Type 2 diabetes mellitus with diabetic polyneuropathy; D63.8 Anemia in other chronic diseases classified elsewhere; M25.461 Effusion, right knee; I25.10 Atherosclerotic heart disease of native coronary artery without angina pectoris; B37.2 Candidiasis of skin and nail; E87.6 Hypokalemia; Z76.5 Malingerer [conscious simulation]; Z87.891 Personal history of nicotine dependence; Z91.81 History of falling; Z79.4 Long term (current) use of insulin; Z83.3 Family history of diabetes mellitus
CPT/HCPCS: 10061; 20610; 32555; 36430; 71045; 71260; 73564; 73630; 73720; 73723; 74177; 75635; 76604; 76937; 77002; 80048; 80053; 80076; 80202; 81001; 82150; 82272; 82550; 82607; 82728; 82746; 82945; 82948; 83010; 83540; 83550; 83605; 83615; 83690; 83735; 83880; 83986; 84157; 84484; 85007; 85025; 85027; 85044; 85610; 85652; 85730; 86140; 86403; 86850; 86900; 86901; 86920; 87015; 87040; 87070; 87102; 87116; 87147; 87186; 87205; 87206; 88112; 88304; 88305; 88307; 88311; 88312; 89051; 89060; 93005; 93306; 93308; 93880; 93923; 93970; 96365; 96375; A9579; C1729; C9113; J0131; J0690; J0696; J0878; J1100; J1644; J1815; J1940; J2020; J2250; J2270; J2370; J2405; J2543; J3010; J3370; J7030; J7040; J7050; J7120; L3260; P9016; Q9963; Q9967

== ENCOUNTER 2017-12-15 18:13 | Inpatient (IN) | payer OTHER ==
[~2017-12-15] VITALS: Ht 182.9 cm; Wt 64.1 kg
[~2017-12-15 18:13] MED LIST changes: +DIFL100T PO; +FURO20TA PO; +INSU1INJ18 SQ; -LEVEMIR SQ; +OXYC1TAB63 PO; +PANT40TA3 PO; +WHEEMIS3
[2017-12-15 18:16] VITALS: BP 115/71; PULSE 101; RESP 20; TEMP 98.7; O2SAT 100
[2017-12-15 19:08] LABS: AUTOMATED NEUTROPHIL # 5.4 TH/MM3 (1.8-7.7); BASOPHIL % 0.2 % (0.0-2.0); EOSINOPHIL # 0.5 TH/MM3 (0-0.4); EOSINOPHIL % 6.2 % (0.0-4.0); HEMATOCRIT 22.4 % (39.0-51.0); HEMOGLOBIN 7.9 GM/DL (13.0-17.0); LYMPH % 25.4 % (9.0-44.0); LYMPHOCYTE # 2.2 TH/MM3 (1.0-4.8); MEAN CELL VOLUME 75.2 FL (80.0-100.0); MEAN CORPUSCULAR HEMOGLOBIN 26.7 PG (27.0-34.0); MEAN CORPUSCULAR HGB CONC 35.5 % (32.0-36.0); MEAN PLATELET VOLUME 7.4 FL (7.0-11.0); MONO % 7.4 % (0.0-8.0); MONOCYTE # 0.6 TH/MM3 (0-0.9); NEUT % 60.8 % (16.0-70.0); PLATELET COUNT 460 TH/MM3 (150-450); RED BLOOD COUNT 2.97 MIL/MM3 (4.50-5.90); RED CELL DISTRIBUTION WIDTH 18.4 % (11.6-17.2); WHITE BLOOD COUNT 8.8 TH/MM3 (4.0-11.0)
[2017-12-15] MEDS ORDERED: VANCOMYCIN INJ 1,000 MG in SODIUM CHLOR 0.9% 250 ML INJ 250 ML IV STA (19:21)
[2017-12-15] MEDS ORDERED: PIPERACIL-TAZO 4.5 GM PREMIX 100 ML IV STA (19:21)
[2017-12-15 19:38] LABS: INTERNATIONAL NORMALIZED RATIO 1.1 RATIO; PROTHROMBIN TIME - PATIENT 11.3 SEC (9.8-11.6)
--- NOTE | 2017-12-15 19:38 | PD ---
HPI Chief Complaint: Skin Problem Time Seen by Provider: 19:10 Travel History International Travel<30 days: No Contact w/Intl Traveler<30days: No Traveled to known affect area: No History of Present Illness HPI Patient comes emergency department after being seen at his granite polisher Dr. Aguayo's office today for evaluation fourth metatarsal osteomyelitis. Request admitted to hospitalist for IV antibiotics and consult Dr. Vallecillo for a bone biopsy. Patient reports that emergency room evaluated his wound and felt he still infection in the bone, which is otherwise any back to the emergency department. Reports Dr. Aguayo applied dressing prior to coming to the ER. Patient reports he was just released from the hospital a week ago after being admitted since September secondary to infection and multiple surgeries to his foot. Patient states he continues to have intermittent stabbing pain in his foot that is worse with certain movement. Patient reports his pain medication alleviates his pain. Denies any radiation of pain. Reports subjective fever 2 days ago. Denies any chest pain, shortness of breath, nausea, vomiting, or loss change in bowel or bladder. Patient reports taking Diflucan as prescribed since being discharged from the hospital. PFSH Past Medical History Cancer: No Cardiovascular Problems: No Diabetes: Yes Patient Takes Glucophage: No Diminished Hearing: No Endocrine: Yes Genitourinary: Yes Immune Disorder: No Kidney Stones: Yes Musculoskeletal: No Neurologic: No Psychiatric: No Reproductive: No Respiratory: No Thyroid Disease: No Past Surgical History Genitourinary Surgery: Yes (kidney stone removal) Tonsillectomy: Yes Other Surgery: Yes (right foot) Social History Alcohol Use: No Tobacco Use: No Substance Use: No Allergies-Medications (Allergen,Severity, Reaction): Coded Allergies: No Known Allergies (Unverified Allergy, Unknown, 11/28/17) Uncoded Allergies: stateless dressing (Allergy, Severe, Anaphylaxis, 10/07/17) Reported Meds & Prescriptions Reported Meds & Active Scripts Active Pantoprazole (Pantoprazole Sodium) 40 Mg Tab 40 Mg PO DAILY Furosemide 20 Mg Tab 20 Mg PO DAILY Oxycodone-Acetaminophen 5-325 (Oxycodone HCl/Acetaminophen) 5 Mg-325 Mg Tablet 1 Tab PO Q6H PRN do not take this medicine if you will drive a car or use a machine, only use it when resting at home. Diflucan (Fluconazole) 100 Mg Tab 100 Mg PO DAILY 14 Days Gabapentin 600 Mg Tab 600 Mg PO TID Novolog Inj (Insulin Aspart) 1,000 Unit/10 Ml Vial 1-9 Units SQ ACHS 30 Days sugars less than 70,(0)units; sugars 150-199,(1) unit; sugars 200-249,(3) units; sugars 250-299,(5) units; sugars 300-349,(7) units; sugars greater than 349,(9) units Reported Juanitaaglharis Johnstonikpen (Insulin Glargine) 100 Unit/Ml Pen 10 Units SQ BID Review of Systems Except as stated in HPI: all other systems reviewed are Neg Physical Exam Narrative GENERAL: Well-developed, well nourished, in no acute distress, and non-ill appearing. SKIN: Focused skin assessment warm and dry. Dressing is dry clean and intact on the right foot. HEAD: Atraumatic. Normocephalic. EYES: Pupils equal and round. EOMI. No scleral icterus. No injection or drainage. ENT: No nasal bleeding or discharge. Mucous membranes pink and moist. NECK: Trachea midline. Supple. No nuclear rigidity. CARDIOVASCULAR: Regular rate and rhythm. No murmur appreciated. RESPIRATORY: No accessory muscle use. No respiratory distress. Clear to auscultation. Breath sounds equal bilaterally. MUSCULOSKELETAL: No obvious deformities. No clubbing. No cyanosis. No edema. Full range of motion. NEUROLOGICAL: Awake and alert. No obvious cranial nerve deficits. Motor grossly within normal limits. Normal speech. PSYCHIATRIC: Appropriate mood and affect; insight and judgment normal. Data Data Last Documented VS Vital Signs Date Time Temp Pulse Resp B/P (MAP) Pulse Ox O2 Delivery O2 Flow Rate FiO2 12/15/17 19:43 100 Room Air 12/15/17 18:16 98.7 101 20 115/71 (86) Orders Orders Complete Blood Count With Diff (12/15/17 18:18) Basic Metabolic Panel (Bmp) (12/15/17 18:18) Act Partial Throm Time (Ptt) (12/15/17 18:18) Prothrombin Time / Inr (Pt) (12/15/17 18:18) C-Reactive Protein (Crp) (12/15/17 18:18) Westergren Sedimentation Rate (12/15/17 18:18) Lactic Acid Sepsis Protocol (12/15/17 19:21) Blood Culture (12/15/17 19:21) Ecg Monitoring (12/15/17 19:21) Iv Access Insert/Monitor (12/15/17 19:21) Oximetry (12/15/17 19:21) Piperacil-Tazo 4.5 Gm Premix (Zosyn 4.5 (12/15/17 19:21) Vancomycin Inj (Vancomycin Inj) (12/15/17 19:21) Hepatic Functional Panel (12/15/17 19:29) Sodium Chlor 0.9% 1000 Ml Inj (Ns 1000 M (12/15/17 20:00) Ondansetron Inj (Zofran Inj) (12/15/17 20:00) Morphine Inj (Morphine Inj) (12/15/17 20:00) Admit Order (Ed Use Only) (12/15/17 21:22) Vital Signs (Adult) Q4H (12/15/17 21:23) Activity Bed Rest (12/15/17 21:23) Notify Dr: Other (12/15/17 21:23) Labs Laboratory Tests Test 12/15/17 18:40 12/15/17 19:45 12/15/17 19:55 White Blood Count 8.8 TH/MM3 Red Blood Count 2.97 MIL/MM3 Hemoglobin 7.9 GM/DL Hematocrit 22.4 % Mean Corpuscular Volume 75.2 FL Mean Corpuscular Hemoglobin 26.7 PG Mean Corpuscular Hemoglobin Concent 35.5 % Red Cell Distribution Width 18.4 % Platelet Count 460 TH/MM3 Mean Platelet Volume 7.4 FL Neutrophils (%) (Auto) 60.8 % Lymphocytes (%) (Auto) 25.4 % Monocytes (%) (Auto) 7.4 % Eosinophils (%) (Auto) 6.2 % Basophils (%) (Auto) 0.2 % Neutrophils # (Auto) 5.4 TH/MM3 Lymphocytes # (Auto) 2.2 TH/MM3 Monocytes # (Auto) 0.6 TH/MM3 Eosinophils # (Auto) 0.5 TH/MM3 Basophils # (Auto) 0.0 TH/MM3 CBC Comment DIFF FINAL Differential Comment Erythrocyte Sedimentation Rate GREATER THAN 140 mm/hr Prothrombin Time 11.3 SEC Prothromb Time International Ratio 1.1 RATIO Activated Partial Thromboplast Time 26.8 SEC Blood Urea Nitrogen 27 MG/DL Creatinine 1.17 MG/DL Random Glucose 176 MG/DL Calcium Level 9.3 MG/DL Sodium Level 132 MEQ/L Potassium Level 4.3 MEQ/L Chloride Level 99 MEQ/L Carbon Dioxide Level 23.7 MEQ/L Anion Gap 9 MEQ/L Estimat Glomerular Filtration Rate 64 ML/MIN C-Reactive Protein 9.20 MG/DL Total Bilirubin 0.3 MG/DL Direct Bilirubin 0.1 MG/DL Indirect Bilirubin 0.2 MG/DL Aspartate Amino Transf (AST/SGOT) 14 U/L Alanine Aminotransferase (ALT/SGPT) 12 U/L Alkaline Phosphatase 90 U/L Total Protein 8.1 GM/DL Albumin 2.7 GM/DL Lactic Acid Level 1.7 mmol/L [facility] Medical Decision Making Medical Screen Exam Complete: Yes Emergency Medical Condition: Yes Interpretation(s) EKG reviewed by Dr. Diaz shows sinus tachycardia with a ventricular rate of 106. No STEMI. Differential Diagnosis Osteomyelitis, diabetic wound infection, metabolic disturbance, sepsis Narrative Course Patient seen and examined. IV was established patient placed on cardiac monitoring. Initial laboratory studies were ordered along with IV vancomycin and IV Zosyn. Patient was given Zofran for nausea, IV morphine for pain, and liter IV fluid. Discussed patient with Dr. Vallecillo granite polisher aviation program manager, do not recommend any additional testing or antibiotics in the ER. Discussed patient with Dr. Diaz, who saw and evaluated the patient and is in agreement plan of care and disposition. Discussed patient with hospitalist is agreeable to admit the patient. Discussed all findings plan of care with patient and his significant other. Patient is agreeable for admission. All questions were answered. Patient remained stable throughout ED course. Physician Communication Physician Communication [phone] Vallecillo granite polisher on-call, who does not request any additional testing be done here in the ER, but patient will need ID consult. [id number] Bishop, who is agreeable to admit the patient. Diagnosis Primary Impression: Osteomyelitis of foot Qualified Codes: M86.9 - Osteomyelitis, unspecified Admitting Information Admitting Physician Requests: Admit Condition: Stable Thiago Soni Dec 15, 2017 19:38
[2017-12-15 19:43] VITALS: O2SAT 100
[2017-12-15] MEDS ORDERED: MORPHINE SULFATE 2 MG/ML SYRINGE IV PUSH ONE (20:00)
[2017-12-15] MEDS ORDERED: SODIUM CHLOR 0.9% 1000 ML INJ 1,000 ML IV ONE (20:00)
[2017-12-15] MEDS ORDERED: ONDANSETRON HCL 4 MG/2 ML VIAL IV PUSH ONE (20:00)
[2017-12-15 20:24] LABS: CREATININE 1.17 MG/DL (0.60-1.30)
[2017-12-15 20:25] LABS: BICARBONATE 23.7 MEQ/L (21.0-32.0); C-REACTIVE PROTEIN 9.2 MG/DL (0.00-0.30); CALCIUM 9.3 MG/DL (8.5-10.1)
[2017-12-15 20:45] LABS: ALBUMIN 2.7 GM/DL (3.4-5.0); DIRECT BILIRUBIN ADULT 0.1 MG/DL (0.0-0.2)
[2017-12-15 20:47] LABS: INDIRECT BILIRUBIN 0.2 MG/DL (0.0-0.8); TOTAL BILIRUBIN ADULT 0.3 MG/DL (0.2-1.0); TOTAL PROTEIN 8.1 GM/DL (6.4-8.2)
--- NOTE | 2017-12-15 22:08 | PD ---
Physical Exam Date Seen by Provider: Dec 15, 2017 Time Seen by Provider: 20:00 Narrative I, Dr. Diaz, have reviewed the advance practice practitioner's documentation and am in agreement, met with the patient face to face, made the diagnosis, and the medical decision making was done by me. *My assessment and Findings: Patient seen and evaluated with PA, please see PA notes for further details. Patient was sent in by podiatry for osteomyelitis. Workup initiated and IV antibiotics given in the ER. Case is discussed with hospitalist for admission. Laboratory Tests Test 12/15/17 18:40 12/15/17 19:45 12/15/17 19:55 Red Blood Count 2.97 MIL/MM3 (4.50-5.90) Hemoglobin 7.9 GM/DL (13.0-17.0) Hematocrit 22.4 % (39.0-51.0) Mean Corpuscular Volume 75.2 FL (80.0-100.0) Mean Corpuscular Hemoglobin 26.7 PG (27.0-34.0) Red Cell Distribution Width 18.4 % (11.6-17.2) Platelet Count 460 TH/MM3 (150-450) Eosinophils (%) (Auto) 6.2 % (0.0-4.0) Eosinophils # (Auto) 0.5 TH/MM3 (0-0.4) Erythrocyte Sedimentation Rate GREATER THAN 140 mm/hr Blood Urea Nitrogen 27 MG/DL (7-18) Random Glucose 176 MG/DL (74-106) Sodium Level 132 MEQ/L (136-145) Estimat Glomerular Filtration Rate 64 ML/MIN (>89) C-Reactive Protein 9.20 MG/DL (0.00-0.30) Aspartate Amino Transf (AST/SGOT) 14 U/L (15-37) Albumin 2.7 GM/DL (3.4-5.0) Data Data Last Documented VS Vital Signs Date Time Temp Pulse Resp B/P (MAP) Pulse Ox O2 Delivery O2 Flow Rate FiO2 12/15/17 19:43 100 Room Air 12/15/17 18:16 98.7 101 20 115/71 (86) Orders Orders Complete Blood Count With Diff (12/15/17 18:18) Basic Metabolic Panel (Bmp) (12/15/17 18:18) Act Partial Throm Time (Ptt) (12/15/17 18:18) Prothrombin Time / Inr (Pt) (12/15/17 18:18) C-Reactive Protein (Crp) (12/15/17 18:18) Westergren Sedimentation Rate (12/15/17 18:18) Lactic Acid Sepsis Protocol (12/15/17 19:21) Blood Culture (12/15/17 19:21) Ecg Monitoring (12/15/17 19:21) Iv Access Insert/Monitor (12/15/17 19:21) Oximetry (12/15/17 19:21) Piperacil-Tazo 4.5 Gm Premix (Zosyn 4.5 (12/15/17 19:21) Vancomycin Inj (Vancomycin Inj) (12/15/17 19:21) Hepatic Functional Panel (12/15/17 19:29) Sodium Chlor 0.9% 1000 Ml Inj (Ns 1000 M (12/15/17 20:00) Ondansetron Inj (Zofran Inj) (12/15/17 20:00) Morphine Inj (Morphine Inj) (12/15/17 20:00) Admit Order (Ed Use Only) (12/15/17 21:22) Vital Signs (Adult) Q4H (12/15/17 21:23) Activity Bed Rest (12/15/17 21:23) Notify Dr: Other (12/15/17 21:23) Labs Laboratory Tests Test 12/15/17 18:40 12/15/17 19:45 12/15/17 19:55 White Blood Count 8.8 TH/MM3 Red Blood Count 2.97 MIL/MM3 Hemoglobin 7.9 GM/DL Hematocrit 22.4 % Mean Corpuscular Volume 75.2 FL Mean Corpuscular Hemoglobin 26.7 PG Mean Corpuscular Hemoglobin Concent 35.5 % Red Cell Distribution Width 18.4 % Platelet Count 460 TH/MM3 Mean Platelet Volume 7.4 FL Neutrophils (%) (Auto) 60.8 % Lymphocytes (%) (Auto) 25.4 % Monocytes (%) (Auto) 7.4 % Eosinophils (%) (Auto) 6.2 % Basophils (%) (Auto) 0.2 % Neutrophils # (Auto) 5.4 TH/MM3 Lymphocytes # (Auto) 2.2 TH/MM3 Monocytes # (Auto) 0.6 TH/MM3 Eosinophils # (Auto) 0.5 TH/MM3 Basophils # (Auto) 0.0 TH/MM3 CBC Comment DIFF FINAL Differential Comment Erythrocyte Sedimentation Rate GREATER THAN 140 mm/hr Prothrombin Time 11.3 SEC Prothromb Time International Ratio 1.1 RATIO Activated Partial Thromboplast Time 26.8 SEC Blood Urea Nitrogen 27 MG/DL Creatinine 1.17 MG/DL Random Glucose 176 MG/DL Calcium Level 9.3 MG/DL Sodium Level 132 MEQ/L Potassium Level 4.3 MEQ/L Chloride Level 99 MEQ/L Carbon Dioxide Level 23.7 MEQ/L Anion Gap 9 MEQ/L Estimat Glomerular Filtration Rate 64 ML/MIN C-Reactive Protein 9.20 MG/DL Total Bilirubin 0.3 MG/DL Direct Bilirubin 0.1 MG/DL Indirect Bilirubin 0.2 MG/DL Aspartate Amino Transf (AST/SGOT) 14 U/L Alanine Aminotransferase (ALT/SGPT) 12 U/L Alkaline Phosphatase 90 U/L Total Protein 8.1 GM/DL Albumin 2.7 GM/DL Lactic Acid Level 1.7 mmol/L [facility] Medical Record Reviewed: Yes Supervised Visit with CAROLINE: Yes Diagnosis Primary Impression: Osteomyelitis of foot Qualified Codes: M86.9 - Osteomyelitis, unspecified Admitting Information Admitting Physician Requests: Admit Condition: Stable Lester Diaz MD Dec 15, 2017 22:08
[2017-12-15] MEDS ORDERED: MAGNESIUM HYDROXIDE SUSP 30 ML CUP PO PRN (23:15)
[2017-12-15] MEDS ORDERED: SENNOSIDES 8.6 MG TAB PO PRN (23:15)
[2017-12-15] MEDS ORDERED: LACTULOSE SYRUP 20 GM/30 ML CUP PO PRN (23:15)
[2017-12-15] MEDS ORDERED: SODIUM CHLORIDE 0.9% FLUSH 10 ML FLUSH IV FLUSH PRN (23:15)
[2017-12-15] MEDS ORDERED: ONDANSETRON HCL 4 MG/2 ML VIAL IVP PRN (23:15)
[2017-12-15] MEDS ORDERED: DEXTROSE 50% IN WATER 50 ML VIAL(D50) IV PUSH PRN (23:15)
[2017-12-15] MEDS ORDERED: BISACODYL 10 MG SUPP RECTAL PRN (23:15)
[2017-12-15] MEDS ORDERED: GLUCAGON 1 MG/ML VIAL OTHER PRN (23:15)
[2017-12-15] MEDS ORDERED: Vancomycin Consult Pharmacy 1 EA OTHER SCH (23:15)
[2017-12-15] MEDS ORDERED: ACETAMINOPHEN 325 MG TAB PO PRN (23:15)
[2017-12-15] MEDS ORDERED: NALOXONE HCL 0.4 MG/ML AMP IV PUSH PRN (23:15)
--- NOTE | 2017-12-15 23:22 | HHI.HP ---
[facility]PI Service [facility] Primary Care Physician No Primary Care Physician Admission Diagnosis Right foot osteomyelitis Diagnoses: Travel History International Travel<30 Days: No Contact w/Intl Traveler <30 Da: No Traveled to Known Affected Are: No History of Present Illness 57-year-old male with a past medical history significant for diabetes mellitus presents to the emergency department from his director of blood's office for the evaluation of her nonhealing osteomyelitis. The patient has a history of osteomyelitis with staph aureus sepsis and wound culture growing Kimberly. Patient completed a course of Cubicin with a stop date of 12/08/17 and is currently taking Diflucan for the Kimberly. He was seen in his director of blood's office earlier today. His director of blood, Dr. Aguayo, was concerned about osteomyelitis and sent him to the emergency department for IV antibiotics and further evaluation. The patient endorses subjective fevers/chills. He states he has a wound on his heel with exposed bone that has minimal amounts of draining when he is active. He denies any chest pain or shortness of breath. No abdominal pain. No nausea/vomiting/diarrhea. No fatigue/weakness. No lateralizing signs/symptoms. Past Family Social History Allergies: Coded Allergies: No Known Allergies (Unverified Allergy, Unknown, 11/28/17) Uncoded Allergies: israeli dressing (Allergy, Severe, Anaphylaxis, 10/07/17) Physical Exam Vital Signs Vital Signs Date Time Temp Pulse Resp B/P (MAP) Pulse Ox O2 Delivery O2 Flow Rate FiO2 12/15/17 19:43 100 Room Air 12/15/17 18:16 98.7 101 20 115/71 (86) 100 Physical Exam GENERAL: This is a well-nourished, well-developed patient, in no apparent distress. SKIN: No rashes, ecchymoses or lesions. Cool and dry. HEAD: Atraumatic. Normocephalic. No temporal or scalp tenderness. EYES: Pupils equal round and reactive. Extraocular motions intact. No scleral icterus. No injection or drainage. ENT: Nose without bleeding, purulent drainage or septal hematoma. Throat without erythema, tonsillar hypertrophy or exudate. Uvula midline. Airway patent. NECK: Trachea midline. No JVD or lymphadenopathy. Supple, nontender, no meningeal signs. CARDIOVASCULAR: Regular rate and rhythm without murmurs, gallops, or rubs. RESPIRATORY: Clear to auscultation. Breath sounds equal bilaterally. No wheezes , rales, or rhonchi. GASTROINTESTINAL: Abdomen soft, non-tender, nondistended. No hepato-splenomegaly , or palpable masses. No guarding. MUSCULOSKELETAL: Extremities without clubbing, cyanosis, or edema. No joint tenderness, effusion, or edema noted. No calf tenderness. Negative Homans sign bilaterally. NEUROLOGICAL: Awake and alert. Cranial nerves II through XII intact. Motor and sensory grossly within normal limits. Five out of 5 muscle strength in all muscle groups. Normal speech. Laboratory Laboratory Tests Test 12/15/17 18:40 12/15/17 19:45 12/15/17 19:55 White Blood Count 8.8 Red Blood Count 2.97 Hemoglobin 7.9 Hematocrit 22.4 Mean Corpuscular Volume 75.2 Mean Corpuscular Hemoglobin 26.7 Mean Corpuscular Hemoglobin Concent 35.5 Red Cell Distribution Width 18.4 Platelet Count 460 Mean Platelet Volume 7.4 Neutrophils (%) (Auto) 60.8 Lymphocytes (%) (Auto) 25.4 Monocytes (%) (Auto) 7.4 Eosinophils (%) (Auto) 6.2 Basophils (%) (Auto) 0.2 Neutrophils # (Auto) 5.4 Lymphocytes # (Auto) 2.2 Monocytes # (Auto) 0.6 Eosinophils # (Auto) 0.5 Basophils # (Auto) 0.0 CBC Comment DIFF FINAL Differential Comment Erythrocyte Sedimentation Rate GREATER THAN 140 Prothrombin Time 11.3 Prothromb Time International Ratio 1.1 Activated Partial Thromboplast Time 26.8 Blood Urea Nitrogen 27 Creatinine 1.17 Random Glucose 176 Calcium Level 9.3 Sodium Level 132 Potassium Level 4.3 Chloride Level 99 Carbon Dioxide Level 23.7 Anion Gap 9 Estimat Glomerular Filtration Rate 64 C-Reactive Protein 9.20 Total Bilirubin 0.3 Direct Bilirubin 0.1 Indirect Bilirubin 0.2 Aspartate Amino Transf (AST/SGOT) 14 Alanine Aminotransferase (ALT/SGPT) 12 Alkaline Phosphatase 90 Total Protein 8.1 Albumin 2.7 Lactic Acid Level 1.7 Date/Time Source Procedure Growth Status 12/15/17 19:55 Blood Peripheral Aerobic Blood Culture Pending Received 12/15/17 19:55 Blood Peripheral Anaerobic Blood Culture Pending Received Result Diagram: 12/15/170 12/15/17 1840 Caprini VTE Risk Assessment Caprini VTE Risk Assessment: No/Low Risk (score <= 1) Caprini Risk Assessment Model Point Value = 1 Point Value = 2 Point Value = 3 Point Value = 5 Age 41-60 Minor surgery BMI > 25 kg/m2 Swollen legs Varicose veins or History of unexplained or recurrent spontaneous Oral contraceptives or hormone replacement Sepsis (< 1 month) Serious lung disease, including pneumonia (< 1 month) Abnormal pulmonary function Acute myocardial infarction Congestive heart failure (< 1 month) History of inflammatory bowel disease Medical patient at bed rest Age 61-74 Arthroscopic surgery Major open surgery (> 45 min) Laparoscopic surgery (> 45 min) Malignancy Confined to bed (> 72 hours) Immobilizing plaster cast Central venous access Age >= 75 History of VTE Family history of VTE Factor V Leiden Prothrombin [id number] Lupus anticoagulant Anticardiolipin antibodies Elevated serum homocysteine Heparin-induced thrombocytopenia Other congenital or acquired thrombophilia Stroke (< 1 month) Elective arthroplasty Hip, pelvis, or leg fracture Acute spinal cord injury (< 1 month) Prophylaxis Regimen Total Risk Factor Score Risk Level Prophylaxis Regimen 0-1 Low Early ambulation 2 Moderate Order ONE of the following: *Sequential Compression Device (SCD) *Heparin 5000 units SQ BID 3-4 Higher Order ONE of the following medications: *Heparin 5000 units SQ TID *Enoxaparin/Lovenox 40 mg SQ daily (WT < 150 kg, CrCl > 30 mL/min) *Enoxaparin/Lovenox 30 mg SQ daily (WT < 150 kg, CrCl > 10-29 mL/min) *Enoxaparin/Lovenox 30 mg SQ BID (WT < 150 kg, CrCl > 30 mL/min) AND/OR *Sequential Compression Device (SCD) 5 or more Highest Order ONE of the following medications: *Heparin 5000 units SQ TID (Preferred with Epidurals) *Enoxaparin/Lovenox 40 mg SQ daily (WT < 150 kg, CrCl > 30 mL/min) *Enoxaparin/Lovenox 30 mg SQ daily (WT < 150 kg, CrCl > 10-29 mL/min) *Enoxaparin/Lovenox 30 mg SQ BID (WT < 150 kg, CrCl > 30 mL/min) AND *Sequential Compression Device (SCD) Assessment and Plan Assessment and Plan Assessment/plan: 1. Osteomyelitis Patient with history of staph aureus sepsis secondary to diabetic foot infection status post completion of Cubicin on 12/08/17. Most recent wound cultures on 11/27/17 grew Kimberly and the patient continues his Diflucan. Evaluated by vascular surgery, no plan for intervention ESR > 140, CRP 9.20 Vancomycin/Zosyn Continue Diflucan Podiatry consulted, appreciate assistance Infectious disease consulted, appreciate assistance Blood cultures pending 2. Diabetes mellitus Holding home Levemir as patient n.p.o. Sliding-scale insulin Monitor blood glucose 3. Anemia H&H 7.9.4 Patient with history of anemia, status post gastroenterology workup during last hospitalization showed gastritis and hemorrhoids Continue PPI Monitor CBC Transfuse as needed FEN NPO Electrolytes: monitor and replete prn NS at 80 cc/hr Holding pharmacologic anticoagulation in anticipation of operative intervention Physician Certification 2 Midnight Certification Type: Admission for Inpatient Services Order for Inpatient Services The services are ordered in accordance with Medicare regulations or non- Medicare payer requirements, as applicable. In the case of services not specified as inpatient-only, they are appropriately provided as inpatient services in accordance with the 2-midnight benchmark. Estimated LOS (days): 2 2 days is the estimated time the patient will need to remain in the hospital, assuming treatment plan goals are met and no additional complications. Post-Hospital Plan: Not yet determined Maine Bishop MD Dec 15, 2017 23:22
[2017-12-16] VITALS: BP_SYST 133; BP_SYST 134; BP_DIAS 74; BP_DIAS 79; PULSE 94; PULSE 98; RESP 16; TEMP 97.6; TEMP 98.1; O2SAT 99
[2017-12-16] MEDS: MORPHINE SULFATE 4 MG/ML INJ IV PUSH PRN ×5 (00:54→20:19)
[2017-12-16] MEDS: SODIUM CHLOR 0.9% 1000 ML INJ 1,000 ML IV SCH ×2 (00:55→08:36)
[2017-12-16] MEDS: PIPERACIL-TAZO 3.375 GM PREMIX 50 ML IV SCH ×3 (01:49→13:10)
[2017-12-16 04:00] VITALS: BP 140/76; PULSE 94; RESP 16; O2SAT 99
[2017-12-16 06:42] LABS: AUTOMATED NEUTROPHIL # 3.5 TH/MM3 (1.8-7.7); BASOPHIL % 0.7 % (0.0-2.0); EOSINOPHIL # 0.6 TH/MM3 (0-0.4); EOSINOPHIL % 9.1 % (0.0-4.0); HEMATOCRIT 22.8 % (39.0-51.0); HEMOGLOBIN 7.6 GM/DL (13.0-17.0); LYMPH % 29.1 % (9.0-44.0); LYMPHOCYTE # 1.9 TH/MM3 (1.0-4.8); MEAN CELL VOLUME 74.9 FL (80.0-100.0); MEAN CORPUSCULAR HEMOGLOBIN 25.1 PG (27.0-34.0); MEAN CORPUSCULAR HGB CONC 33.5 % (32.0-36.0); MEAN PLATELET VOLUME 7.3 FL (7.0-11.0); MONO % 7.7 % (0.0-8.0); MONOCYTE # 0.5 TH/MM3 (0-0.9); NEUT % 53.4 % (16.0-70.0); PLATELET COUNT 399 TH/MM3 (150-450); RED BLOOD COUNT 3.04 MIL/MM3 (4.50-5.90); RED CELL DISTRIBUTION WIDTH 18.5 % (11.6-17.2); WHITE BLOOD COUNT 6.6 TH/MM3 (4.0-11.0)
[2017-12-16] MEDS ORDERED: VANCOMYCIN INJ 1,000 MG in SODIUM CHLOR 0.9% 250 ML INJ 250 ML IV SCH (07:00)
[2017-12-16 07:03] LABS: BICARBONATE 25.1 MEQ/L (21.0-32.0); CALCIUM 8.8 MG/DL (8.5-10.1)
[2017-12-16] MEDS: SODIUM CHLORIDE 0.9% FLUSH 10 ML FLUSH IV FLUSH SCH ×2 (07:45→20:23)
[2017-12-16] MEDS: INSULIN ASPART SUPPLEMENTAL SCALE SQ SCH ×4 (07:59→20:00)
[2017-12-16 08:15] VITALS: BP 131/82; PULSE 86; RESP 18; TEMP 97.9; O2SAT 97
[2017-12-16] MEDS: PANTOPRAZOLE SOD 40 MG DELAYED RELEASE TAB PO SCH (08:35)
[2017-12-16] MEDS: DOCUSATE SODIUM 50 MG/SENNA 8.6 MG TAB PO SCH ×2 (08:35→20:19)
[2017-12-16] MEDS: GABAPENTIN 300 MG CAP PO SCH ×3 (08:35→17:15)
[2017-12-16] MEDS: FUROSEMIDE 20 MG TAB PO SCH (08:35)
[2017-12-16] MEDS ORDERED: FLUCONAZOLE 100 MG TAB PO SCH (09:00)
[2017-12-16 12:15] VITALS: BP 126/75; PULSE 84; RESP 18; TEMP 98.5; O2SAT 97
[2017-12-16] MEDS ORDERED: VANCOMYCIN 1,000 MG/NS 250 ML IV SCH ×2 (14:00)
--- NOTE | 2017-12-16 15:58 | PD.ID.CON ---
History of Present Illness Service ID Consult Requested By Reason for Consult Evaluation and management of possible recurrent osteomyelitis and tendinitis Primary Care Physician No Primary Care Physician Diagnoses: History of Present Illness Mr. Braxton is a 57-year-old male with past medical history significant for diabetes type 2, prior diabetic foot ulcer treated in October 2016 thereafter was hospitalized from May 08, 2017 to May 29, 2017 due to foot ulcer. During that hospitalization patient underwent surgical debridement with wound VAC placement. Patient reports that he was seen by Dr. Pritchard during that admission. Patient reports that he was discharged on IV ceftriaxone using a PICC line. Patient had home health care visits him and continue to receive wound VAC changes at home. He also was subsequently seen at wound care clinic for ongoing wound care as well as [facility] clinic for his primary care needs. Patient reports that his medications were recently adjusted and a new insulin was introduced. Patient reports that he was diagnosed with a possible staph or strep infection and has been on oral Bactrim approximately 2 weeks prior to admission. Due to worsening foot infection as well as possible reaction to the new insulin patient presented to the emergency department [facility]. Patient reports that he was having fevers, chills, loss of appetite and diarrhea for the past 2 days associated with frequent urination. Patient denies any dysuria. He reports dizziness and reported history of falls 3 days ago while on the toilet. Patient's reports that she was unaware of this history of fall. He denies any head injury. Patient reports hitting his right foot and shoulder but that he was able to get off the floor by himself. Patient had a sepsis workup initiated on admission. Wound cultures are positive for strep as well as blood cultures are now positive for gram-positive likely strep. Repeat blood cultures have been ordered. Podiatry is seeing the patient and there is a plan for surgical intervention and possible amputation of the involved digit. Infectious disease is consulted for evaluation and management of right fifth toe osteomyelitis with associated cellulitis, gram-positive bacteremia and sepsis. Past Family Social History Allergies: Coded Allergies: No Known Allergies (Unverified Allergy, Unknown, 11/28/17) Uncoded Allergies: israeli dressing (Allergy, Severe, Anaphylaxis, 10/07/17) Past Medical History DM II Right foot ulcer with possible osteomyelitis in the past. Has received IV antibiotics long-term using a PICC line in the past. Renal stones Past Surgical History Right foot debridement of wound removal of kidney stones Tonsillitis Reported Medications Reported Meds & Active Scripts Active Pantoprazole (Pantoprazole Sodium) 40 Mg Tab 40 Mg PO DAILY Furosemide 20 Mg Tab 20 Mg PO DAILY Oxycodone-Acetaminophen 5-325 (Oxycodone HCl/Acetaminophen) 5 Mg-325 Mg Tablet 1 Tab PO Q6H PRN do not take this medicine if you will drive a car or use a machine, only use it when resting at home. Diflucan (Fluconazole) 100 Mg Tab 100 Mg PO DAILY 14 Days Gabapentin 600 Mg Tab 600 Mg PO TID Novolog Inj (Insulin Aspart) 1,000 Unit/10 Ml Vial 1-9 Units SQ ACHS 30 Days sugars less than 70,(0)units; sugars 150-199,(1) unit; sugars 200-249,(3) units; sugars 250-299,(5) units; sugars 300-349,(7) units; sugars greater than 349,(9) units Reported Basaglar Kwikpen (Insulin Glargine) 100 Unit/Ml Pen 10 Units SQ BID Active Ordered Medications Current Medications Medications (Trade) Dose Ordered Sig/Anna Route Start Time Stop Time Status Last Admin Pharmacy Profile Note 0 ml @ 0 mls/hr UNSCH OTHER 12/15/17 23:15 Piperacillin Sod/ Tazobactam Sod 50 ml @ 100 mls/hr Q6H IV 12/16/17 02:00 12/16/17 13:10 (Morphine Inj) 2 mg Q4H PRN IV PUSH 12/15/17 23:15 12/16/17 16:08 Sodium Chloride 1,000 ml @ 80 mls/hr [id number] IV 12/15/17 23:03 12/16/17 08:36 (NS Flush) 2 ml UNSCH PRN IV FLUSH 12/15/17 23:15 (NS Flush) 2 ml BID IV FLUSH 12/16/17 09:00 12/16/17 07:45 (Tylenol) 650 mg Q4H PRN PO 12/15/17 23:15 (Zofran Inj) 4 mg Q6H PRN IVP 12/15/17 23:15 (Narcan Inj) 0.4 mg UNSCH PRN IV PUSH 12/15/17 23:15 (Florence-Colace) 1 tab BID PO 12/16/17 09:00 12/16/17 08:35 (Milk Of Magnesia Liq) 30 ml Q12H PRN PO 12/15/17 23:15 (Senokot) 17.2 mg Q12H PRN PO 12/15/17 23:15 (Dulcolax Supp) 10 mg DAILY PRN RECTAL 12/15/17 23:15 (Lactulose Liq) 30 ml DAILY PRN PO 12/15/17 23:15 (D50w (Vial) Inj) 50 ml UNSCH PRN IV PUSH 12/15/17 23:15 (Glucagon Inj) 1 mg UNSCH PRN OTHER 12/15/17 23:15 (NovoLOG SUPPLEMENTAL SCALE) 1 ACHS SLIDING SCALE SQ 12/16/17 08:00 (Diflucan) 100 mg DAILY PO 12/16/17 09:00 12/16/17 08:35 (Lasix) 20 mg DAILY PO 12/16/17 09:00 12/16/17 08:35 (Neurontin) 600 mg TID PO 12/16/17 09:00 12/16/17 13:09 (Protonix) 40 mg DAILY PO 12/16/17 09:00 12/16/17 08:35 Vancomycin HCl 1000 mg/Sodium Chloride 250 ml @ 250 mls/hr Q12H IV 12/16/17 14:00 12/16/17 13:10 ([facility]dered [facility] Info) SPECIFIC LAB TO BE ... ONCE ONCE .XX 12/18/17 01:45 12/18/17 01:46 Family History reviewed and NC to current Illness. Social History homeless, lives in [facility]. Denies smoking, alcohol, or illicit drugs. Physical Exam Vital Signs Vital Signs Date Time Temp Pulse Resp B/P (MAP) Pulse Ox O2 Delivery O2 Flow Rate FiO2 12/16/17 12:15 98.5 84 18 126/75 (92) 97 12/16/17 08:15 97.9 86 18 131/82 (98) 97 12/16/17 04:00 94 16 140/76 (97) 99 12/16/17 00:00 98.1 98 16 134/79 (97) 99 12/16/17 00:00 97.6 94 16 133/74 (93) 99 12/15/17 23:30 Room Air 4/30/18 19:43 100 Room Air 12/15/17 18:16 98.7 101 20 115/71 (86) 100 Physical Exam GENERAL: This is a well-nourished, well-developed patient, in no apparent distress. SKIN: No rashes, ecchymoses or lesions. Cool and dry. HEAD: Atraumatic. Normocephalic. No temporal or scalp tenderness. EYES: Pupils equal round and reactive. Extraocular motions intact. No scleral icterus. No injection or drainage. ENT: Nose without bleeding, purulent drainage or septal hematoma. Throat without erythema, tonsillar hypertrophy or exudate. Uvula midline. Airway patent. NECK: Trachea midline. Supple, nontender, no meningeal signs. CARDIOVASCULAR: HS audible. No murmur appreciated. RESPIRATORY: Clear to auscultation. Breath sounds equal bilaterally. No wheezes , rales, or rhonchi. GASTROINTESTINAL: Abdomen soft, non-tender, nondistended. MUSCULOSKELETAL: RLE with gaping wound from prior surgery. Hypergranulation tissue noted plus yellowish purulent looking material as well. Tendon exposed and possibly bone exposed. No surrounding erythema. NEUROLOGICAL: Awake and alert. Non focal exam Psych cooperative IV line sites with no e.o infection. Laboratory Laboratory Tests Test 12/15/17 18:40 12/15/17 19:45 12/15/17 19:55 12/16/17 04:20 White Blood Count 8.8 6.6 Red Blood Count 2.97 3.04 Hemoglobin 7.9 7.6 Hematocrit 22.4 22.8 Mean Corpuscular Volume 75.2 74.9 Mean Corpuscular Hemoglobin 26.7 25.1 Mean Corpuscular Hemoglobin Concent 35.5 33.5 Red Cell Distribution Width 18.4 18.5 Platelet Count 460 399 Mean Platelet Volume 7.4 7.3 Neutrophils (%) (Auto) 60.8 53.4 Lymphocytes (%) (Auto) 25.4 29.1 Monocytes (%) (Auto) 7.4 7.7 Eosinophils (%) (Auto) 6.2 9.1 Basophils (%) (Auto) 0.2 0.7 Neutrophils # (Auto) 5.4 3.5 Lymphocytes # (Auto) 2.2 1.9 Monocytes # (Auto) 0.6 0.5 Eosinophils # (Auto) 0.5 0.6 Basophils # (Auto) 0.0 0.0 CBC Comment DIFF FINAL DIFF FINAL Differential Comment Erythrocyte Sedimentation Rate GREATER THAN 140 Prothrombin Time 11.3 Prothromb Time International Ratio 1.1 Activated Partial Thromboplast Time 26.8 Blood Urea Nitrogen 27 20 Creatinine 1.17 1.00 Random Glucose 176 107 Calcium Level 9.3 8.8 Sodium Level 132 139 Potassium Level 4.3 4.4 Chloride Level 99 106 Carbon Dioxide Level 23.7 25.1 Anion Gap 9 8 Estimat Glomerular Filtration Rate 64 76 C-Reactive Protein 9.20 Total Bilirubin 0.3 Direct Bilirubin 0.1 Indirect Bilirubin 0.2 Aspartate Amino Transf (AST/SGOT) 14 Alanine Aminotransferase (ALT/SGPT) 12 Alkaline Phosphatase 90 Total Protein 8.1 Albumin 2.7 Lactic Acid Level 1.7 Date/Time Source Procedure Growth Status 12/15/17 19:55 Blood Peripheral Aerobic Blood Culture - Preliminary NO GROWTH IN 1 DAY Resulted 12/15/17 19:55 Blood Peripheral Anaerobic Blood Culture - Preliminary NO GROWTH IN 1 DAY Resulted Result Diagram: 12/16/17 0420 12/16/17 0420 Assessment and Plan Assessment and Plan Possible osteomyelitis partially treated or new infection as bone and tendon was exposed earlier. Patient had refused skin graft last admission. Possible tendinitis. 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 Fevers on Ancef and PCN: drug fever hence treated with Dapto IV which is not first line. Recs Discontinue antibiotics. Observe off antibiotics. Patient has completed a long course of antibiotics. This appears to be superficial infection but await eval by podiatry. If deep infection obtain cultures. If concern for osteomyelitis is high please obtain bone biopsy. Vivek Boone: she will do bedside debridement tomorrow. vivek Whitney: change NPO status and add diet. Will follow along. Follow cultures Follow clinically. Chuyita Quinteros MD December 16, 2017 15:58
[2017-12-16 16:00] VITALS: BP 116/72; PULSE 85; RESP 20; TEMP 98.2; O2SAT 97
--- NOTE | 2017-12-16 16:06 | HHI.PR ---
Subjective Remarks Follow up osteomyelitis, diabetes. Patient states that he is hungry. Otherwise no complaints at this time. Objective Vitals Vital Signs Date Time Temp Pulse Resp B/P (MAP) Pulse Ox O2 Delivery O2 Flow Rate FiO2 12/16/17 12:15 98.5 84 18 126/75 (92) 97 12/16/17 08:15 97.9 86 18 131/82 (98) 97 12/16/17 04:00 94 16 140/76 (97) 99 12/16/17 00:00 98.1 98 16 134/79 (97) 99 12/16/17 00:00 97.6 94 16 133/74 (93) 99 12/15/17 23:30 Room Air 12/15/17 19:43 100 Room Air 12/15/17 18:16 98.7 101 20 115/71 (86) 100 I/O 12/15/17 12/15/17 12/15/17 12/16/17 12/16/17 12/16/17 07:00 15:00 23:00 07:00 15:00 23:00 Intake Total 55 ml Balance 55 ml Intake IV Total 55 ml Result Diagram: 12/16/1741912/16/17419 Objective Remarks General: No acute distress. Heart: Regular rate and rhythm. No murmur. Lungs: Clear to auscultation bilaterally. No wheezes, rales, or rhonchi. Breathing is nonlabored. Abdomen: Soft, nontender, nondistended. Extremities: No lower extremity edema. Psych: Alert and oriented. Neuro: Normal speech. No focal deficits noted. Skin: Wound on lateral right foot with tendon visible. Procedures None Urinary Catheter: No Vascular Central Line Catheter: No A/P Assessment and Plan 1. Osteomyelitis, right foot: Podiatry consult is pending. Continue antibiotics. Appreciate infectious disease recommendations. 2. Diabetes mellitus: Levemir on hold as patient is NPO. Continue sliding scale insulin coverage. 3. Anemia: S/P GI workup during last hospitalization (showed gastritis, hemorrhoids). Monitor H/H. Continue PPI. 4. DVT prophylaxis: SCDs. Seen and discussed with Dr. Quinteros. Siddharth Lane MD December 16, 2017 16:06
[2017-12-16 19:00] VITALS: BP 121/66; PULSE 93; RESP 20; TEMP 98.7; O2SAT 99
[2017-12-17] VITALS: BP 144/80; PULSE 95; RESP 20; TEMP 98.8; O2SAT 98
[2017-12-17] MEDS: MORPHINE SULFATE 4 MG/ML INJ IV PUSH PRN ×6 (00:22→21:05)
[2017-12-17] MEDS: SODIUM CHLOR 0.9% 1000 ML INJ 1,000 ML IV SCH ×2 (03:26→15:54)
[2017-12-17 04:00] VITALS: BP 129/71; PULSE 85; RESP 20; TEMP 99.2; O2SAT 99
[2017-12-17 08:00] VITALS: BP 124/69; PULSE 80; RESP 19; TEMP 99.2; O2SAT 98
[2017-12-17 08:18] LABS: BASOPHIL # 0.1 TH/MM3 (0-0.2); BASOPHIL % 0.7 % (0.0-2.0); EOSINOPHIL # 0.4 TH/MM3 (0-0.4); EOSINOPHIL % 5.2 % (0.0-4.0); HEMATOCRIT 22.6 % (39.0-51.0); HEMOGLOBIN 7.5 GM/DL (13.0-17.0); LYMPH % 28.6 % (9.0-44.0); MEAN CELL VOLUME 74.1 FL (80.0-100.0); MEAN CORPUSCULAR HEMOGLOBIN 24.6 PG (27.0-34.0); MEAN CORPUSCULAR HGB CONC 33.2 % (32.0-36.0); MONO % 8.2 % (0.0-8.0); MONOCYTE # 0.6 TH/MM3 (0-0.9); NEUT % 57.3 % (16.0-70.0); PLATELET COUNT 444 TH/MM3 (150-450); RED BLOOD COUNT 3.05 MIL/MM3 (4.50-5.90); RED CELL DISTRIBUTION WIDTH 18.2 % (11.6-17.2)
[2017-12-17 08:47] LABS: BICARBONATE 24.8 MEQ/L (21.0-32.0); CALCIUM 8.6 MG/DL (8.5-10.1); CREATININE 0.83 MG/DL (0.60-1.30)
[2017-12-17] MEDS: INSULIN ASPART SUPPLEMENTAL SCALE SQ SCH ×4 (08:56→21:06)
[2017-12-17] MEDS: FUROSEMIDE 20 MG TAB PO SCH (08:57)
[2017-12-17] MEDS: DOCUSATE SODIUM 50 MG/SENNA 8.6 MG TAB PO SCH ×2 (08:57→21:00)
[2017-12-17] MEDS: SODIUM CHLORIDE 0.9% FLUSH 10 ML FLUSH IV FLUSH SCH ×2 (08:57→21:06)
[2017-12-17] MEDS: PANTOPRAZOLE SOD 40 MG DELAYED RELEASE TAB PO SCH (08:57)
[2017-12-17] MEDS: GABAPENTIN 300 MG CAP PO SCH ×3 (08:57→17:08)
[2017-12-17 12:00] VITALS: BP 121/63; PULSE 81; RESP 19; TEMP 98.5; O2SAT 97
--- NOTE | 2017-12-17 14:24 | HHI.PR ---
Subjective Remarks Follow-up anemia, diabetes, osteomyelitis. The patient states that he feels about the same as yesterday. No new complaints at this time. Objective Vitals Vital Signs Date Time Temp Pulse Resp B/P (MAP) Pulse Ox O2 Delivery O2 Flow Rate FiO2 12/17/17 12:00 98.5 81 19 121/63 (82) 97 12/17/17 08:00 99.2 80 19 124/69 (87) 98 12/17/17 08:00 Room Air 12/17/17 04:00 99.2 85 20 129/71 (90) 99 12/17/17 00:00 98.8 95 20 144/80 (101) 98 12/16/17 19:30 Room Air 12/16/17 19:00 98.7 93 20 121/66 (84) 99 12/16/17 16:00 98.2 85 20 116/72 (87) 97 I/O 12/16/17 12/16/17 12/16/17 12/17/17 12/17/17 12/17/17 07:00 15:00 23:00 07:00 15:00 23:00 Intake Total 55 ml 840 ml 1900 ml Output Total 1500 ml 1800 ml Balance 55 ml -660 ml 100 ml Intake Oral 840 ml 900 ml IV Total 55 ml 1000 ml Output Urine Total 1500 ml 1800 ml Result Diagram: 12/17/17 0740 12/17/17 0740 Objective Remarks General: No acute distress. Heart: Regular rate and rhythm. No murmur. Lungs: Clear to auscultation bilaterally. No wheezes, rales, or rhonchi. Breathing is nonlabored. Abdomen: Soft, nontender, nondistended. Extremities: No lower extremity edema. Psych: Alert and oriented. Neuro: Normal speech. No focal deficits noted. Skin: Right foot/ankle bandaged. Procedures None Urinary Catheter: No Vascular Central Line Catheter: No A/P Assessment and Plan 1. Osteomyelitis, right foot: Podiatry consult is pending. Appreciate infectious disease recommendations. Antibiotics discontinued. Monitor off antibiotics. 2. Diabetes mellitus: Levemir on hold as patient is NPO. Continue sliding scale insulin coverage. 3. Anemia: S/P GI workup during last hospitalization (showed gastritis, hemorrhoids). H&H low, but stable.. Continue PPI. 4. DVT prophylaxis: SCDs. Siddharth Lane MD December 17, 2017 14:24
[2017-12-17 16:00] VITALS: BP 127/71; PULSE 92; RESP 19; TEMP 99; O2SAT 97
--- NOTE | 2017-12-17 16:35 | MB ---
cc: Lorri Vallecillo DATE: 12/17/2017 CHIEF COMPLAINT: Right foot ulceration. HISTORY OF PRESENT ILLNESS: Mr. Braxton is a patient well known to myself and the staff here at [facility]. He was admitted recently for several months for IV antibiotics for the right foot wound and was discharged about 1 week ago. He followed up with Dr. Aguayo in the office and was noted to have exposed bone and concern for osteomyelitis. Due to his social situation and lack of insurance, treatment options were limited and the patient was advised to go back to the emergency room for admission. The patient denies any nausea, vomiting, fever, headaches or chills. ALLERGIES: NO KNOWN DRUG ALLERGIES. PAST MEDICAL HISTORY: Diabetes mellitus, right foot ulcer with osteomyelitis, long-term IV antibiotic history, renal stone surgery history, multiple right foot wound debridements, removal of kidney stones, tonsillectomy. MEDICATIONS: Please see list. FAMILY HISTORY: Noncontributory. SOCIAL HISTORY: The patient is homeless, currently lives in the [facility]. Denies any illicit alcohol or drug abuse. He is , but does not currently reside with his . VITAL SIGNS: Temperature is 98.5 with a T-max of 99.2, pulse 81, respiratory rate 19, blood pressure 121/63, pulse oximetry 97% O2 on room air. LABORATORY DATA: White count of 7.0, hemoglobin 7.5, hematocrit 22.7, platelets 444. INR 1.1. Sodium 139, potassium 4.0, chloride 105, carbon dioxide 24.8, BUN 15, glucose 157. C-reactive protein 9.2. No imaging on this admission. PHYSICAL EXAMINATION: The patient has diminished DP and PT pulses. Capillary refill time is less than 3 seconds. The right foot has a full-thickness stable eschar to the posterior heel. No erythema, no drainage, no malodor. The right lateral foot has an approximately 9 x 1 x 0.5 cm linear longitudinal wound, which has a mixed wound bed granular tissue, necrotic tissue, fibrotic tissue and some exposed bone at the base of the fourth metatarsal. No erythema, no malodor, some yellow serous drainage noted. ASSESSMENT AND PLAN: 1. Right foot stage IV ulceration with questionable osteomyelitis. - Bone biopsy performed at bedside. - If Bone biopsy is negative, the next step with the patient would likely be to try and graft the wound and get coverage over it, after which point he would need discharge with a wound vac, to a prison facility. If the bone biopsy is positive, I will need to confer with infectious disease for further treatment as he has already done 12 weeks of intravenous antibiotics. - Wound care orders placed for nursing staff. We will follow the patient closely while in-house, IVONNE Thomas/MARY , 04:04 PM , 04:34 PM JENNIFER
[2017-12-17 20:00] VITALS: BP 131/81; PULSE 94; RESP 16; TEMP 98.9; O2SAT 99
[2017-12-18] VITALS: BP 135/79; PULSE 92; RESP 16; TEMP 99.9; O2SAT 97
[2017-12-18] MEDS: MORPHINE SULFATE 4 MG/ML INJ IV PUSH PRN ×6 (01:24→22:37)
[2017-12-18] MEDS: SODIUM CHLOR 0.9% 1000 ML INJ 1,000 ML IV SCH ×2 (01:25→14:01)
[2017-12-18] MEDS ORDERED: PHARMACY ORDERED LAB ONE (01:45)
[2017-12-18 04:00] VITALS: BP 146/90; PULSE 90; RESP 17; TEMP 99.1; O2SAT 97
[2017-12-18 08:00] VITALS: BP 119/72; PULSE 89; RESP 16; TEMP 99; O2SAT 96
[2017-12-18] MEDS: INSULIN ASPART SUPPLEMENTAL SCALE SQ SCH ×4 (08:00→22:54)
[2017-12-18] MEDS: DOCUSATE SODIUM 50 MG/SENNA 8.6 MG TAB PO SCH ×2 (09:00→21:00)
[2017-12-18] MEDS: SODIUM CHLORIDE 0.9% FLUSH 10 ML FLUSH IV FLUSH SCH ×2 (09:00→21:00)
[2017-12-18] MEDS: GABAPENTIN 300 MG CAP PO SCH ×3 (09:44→18:07)
[2017-12-18] MEDS: PANTOPRAZOLE SOD 40 MG DELAYED RELEASE TAB PO SCH (09:44)
[2017-12-18] MEDS: FUROSEMIDE 20 MG TAB PO SCH (09:45)
[2017-12-18 12:00] VITALS: BP 143/82; PULSE 88; RESP 18; TEMP 98.2; O2SAT 96
[2017-12-18] MEDS: COLLAGENASE OINT 30 GM TUBE TOPICAL SCH (12:22)
--- NOTE | 2017-12-18 14:09 | HHI.PR ---
Subjective Remarks Follow up foot wound, possible osteomyelitis. Patient has no new complaints at this time. S/P bone biopsy yesterday. Objective Vitals Vital Signs Date Time Temp Pulse Resp B/P (MAP) Pulse Ox O2 Delivery O2 Flow Rate FiO2 12/18/17 04:00 99.1 90 17 146/90 (108) 97 12/18/17 00:00 99.9 92 16 135/79 (97) 97 12/17/17 21:10 18 12/17/17 20:30 99 Room Air 12/17/17 20:00 98.9 94 16 131/81 (98) 99 12/17/17 16:00 99.0 92 19 127/71 (89) 97 I/O 12/17/17 12/17/17 12/17/17 12/18/17 12/18/17 12/18/17 07:00 15:00 23:00 07:00 15:00 23:00 Intake Total 1900 ml 1200 ml 800 ml Output Total 1800 ml 1400 ml 1350 ml Balance 100 ml -200 ml -550 ml Intake Oral 900 ml 1200 ml 800 ml IV Total 1000 ml Output Urine Total 1800 ml 1400 ml 1350 ml Result Diagram: 12/17/17 0740 12/17/17 0740 Objective Remarks General: No acute distress. Heart: Regular rate and rhythm. No murmur. Lungs: Clear to auscultation bilaterally. No wheezes, rales, or rhonchi. Breathing is nonlabored. Abdomen: Soft, nontender, nondistended. Extremities: No lower extremity edema. Psych: Alert and oriented. Neuro: Normal speech. No focal deficits noted. Skin: Right foot/ankle bandaged. Procedures 12/17/17 bone biopsy, right foot Urinary Catheter: No Vascular Central Line Catheter: No A/P Assessment and Plan 1. Right foot wound, possible osteomyelitis: Appreciate podiatry recommendations. Status post bone biopsy. Appreciate infectious disease recommendations. Antibiotics discontinued. Monitor off antibiotics. 2. Diabetes mellitus: Levemir on hold as patient is NPO. Continue sliding scale insulin coverage. 3. Anemia: S/P GI workup during last hospitalization (showed gastritis, hemorrhoids). H&H low, but stable.. Continue PPI. 4. DVT prophylaxis: SCDs. Discussed with Dr. Vallecillo and Dr. Quinteros. If biopsy is negative, plan is for skin grafting. If biopsy is positive for osteomyelitis, patient would likely need below-knee amputation, which he has been opposed to in the past. Siddharth Lane MD December 18, 2017 14:09
[2017-12-18 16:00] VITALS: BP 125/70; PULSE 84; RESP 16; TEMP 98.9; O2SAT 98
[2017-12-18 20:00] VITALS: BP 129/76; PULSE 88; RESP 15; TEMP 98.1; O2SAT 97
[2017-12-18] MEDS: INSULIN DETEMIR 100 UNITS/ML VIAL SQ SCH (22:54)
[2017-12-19] VITALS (7 sets, daily range): BP systolic 111–138; BP diastolic 56–75; PULSE 82–90; RESP 16–18; TEMP 98.7–99.7; O2SAT 96–98
[2017-12-19] MEDS: SODIUM CHLOR 0.9% 1000 ML INJ 1,000 ML IV SCH ×2 (02:34→14:33)
[2017-12-19] MEDS: MORPHINE SULFATE 4 MG/ML INJ IV PUSH PRN ×5 (02:34→21:30)
[2017-12-19] MEDS: INSULIN ASPART SUPPLEMENTAL SCALE SQ SCH ×4 (08:00→21:34)
[2017-12-19] MEDS: FUROSEMIDE 20 MG TAB PO SCH (08:30)
[2017-12-19] MEDS: DOCUSATE SODIUM 50 MG/SENNA 8.6 MG TAB PO SCH ×2 (08:30→21:33)
[2017-12-19] MEDS: PANTOPRAZOLE SOD 40 MG DELAYED RELEASE TAB PO SCH (08:30)
[2017-12-19] MEDS: GABAPENTIN 300 MG CAP PO SCH ×3 (08:30→18:30)
[2017-12-19] MEDS: COLLAGENASE OINT 30 GM TUBE TOPICAL SCH (08:35)
[2017-12-19] MEDS: SODIUM CHLORIDE 0.9% FLUSH 10 ML FLUSH IV FLUSH SCH ×2 (08:37→21:33)
[2017-12-19] MEDS: INSULIN DETEMIR 100 UNITS/ML VIAL SQ SCH ×2 (08:37→21:34)
--- NOTE | 2017-12-19 15:16 | HHI.PR ---
Subjective Remarks Follow-up foot wound. Patient has no complaints at this time. Denies chest pain, dyspnea. Objective Vitals Vital Signs Date Time Temp Pulse Resp B/P (MAP) Pulse Ox O2 Delivery O2 Flow Rate FiO2 12/19/17 12:56 98.8 84 18 130/72 (91) 96 12/19/17 08:00 99.7 85 18 126/72 (90) 97 12/19/17 04:00 99.0 88 16 111/56 (74) 96 12/19/17 04:00 Room Air 12/19/17 00:00 99.0 90 16 116/66 (83) 97 12/19/17 00:00 Room Air 12/18/17 20:00 Room Air 12/18/17 20:00 98.1 88 15 129/76 (93) 97 12/18/17 16:00 98.9 84 16 125/70 (88) 98 I/O 12/18/17 12/18/17 12/18/17 12/19/17 12/19/17 12/19/17 06:59 14:59 22:59 06:59 14:59 22:59 Intake Total 800 ml 960 ml 1827 ml Output Total 1350 ml 1500 ml Balance -550 ml -540 ml 1827 ml Intake Oral 800 ml 960 ml 840 ml IV Total 987 ml Output Urine Total 1350 ml 1500 ml # Voids 5 # Bowel Movements 0 0 Result Diagram: 12/17/17 0740 12/17/17 0740 Objective Remarks General: No acute distress. Heart: Regular rate and rhythm. No murmur. Lungs: Clear to auscultation bilaterally. No wheezes, rales, or rhonchi. Breathing is nonlabored. Abdomen: Soft, nontender, nondistended. Extremities: No lower extremity edema. Psych: Alert and oriented. Neuro: Normal speech. No focal deficits noted. Skin: Right foot/ankle bandaged. Procedures 12/17/17 bone biopsy, right foot Urinary Catheter: No Vascular Central Line Catheter: No A/P Assessment and Plan 12/19/17: No change. Awaiting biopsy results. 1. Right foot wound, possible osteomyelitis: Appreciate podiatry recommendations. Status post bone biopsy. Appreciate infectious disease recommendations. Antibiotics discontinued. Monitor off antibiotics. 2. Diabetes mellitus: Levemir on hold as patient is NPO. Continue sliding scale insulin coverage. 3. Anemia: S/P GI workup during last hospitalization (showed gastritis, hemorrhoids). H&H low, but stable. Continue PPI. 4. DVT prophylaxis: SCDs. Per podiatry, if biopsy is negative the plan is for skin grafting in the next few days. If biopsy is positive for osteomyelitis, patient would likely need below-knee amputation, which he has been opposed to in the past. Siddharth Lane MD December 19, 2017 15:16
[2017-12-20] MEDS: MORPHINE SULFATE 4 MG/ML INJ IV PUSH PRN ×6 (01:40→21:42)
[2017-12-20] MEDS: SODIUM CHLOR 0.9% 1000 ML INJ 1,000 ML IV SCH ×2 (03:03→12:04)
[2017-12-20 03:52] VITALS: BP 151/80; PULSE 87; RESP 16; TEMP 98.4; O2SAT 98
[2017-12-20 08:00] VITALS: BP 131/72; PULSE 84; RESP 16; TEMP 98.2; O2SAT 97
[2017-12-20] MEDS: INSULIN ASPART SUPPLEMENTAL SCALE SQ SCH ×4 (08:00→20:09)
[2017-12-20] MEDS: GABAPENTIN 300 MG CAP PO SCH ×3 (08:21→17:05)
[2017-12-20] MEDS: SODIUM CHLORIDE 0.9% FLUSH 10 ML FLUSH IV FLUSH SCH ×2 (08:21→20:05)
[2017-12-20] MEDS: INSULIN DETEMIR 100 UNITS/ML VIAL SQ SCH ×2 (08:21→20:09)
[2017-12-20] MEDS: FUROSEMIDE 20 MG TAB PO SCH (08:21)
[2017-12-20] MEDS: PANTOPRAZOLE SOD 40 MG DELAYED RELEASE TAB PO SCH (08:21)
[2017-12-20] MEDS: COLLAGENASE OINT 30 GM TUBE TOPICAL SCH (08:22)
[2017-12-20] MEDS: DOCUSATE SODIUM 50 MG/SENNA 8.6 MG TAB PO SCH ×2 (08:22→20:06)
[2017-12-20 09:19] LABS: BICARBONATE 24.6 MEQ/L (21.0-32.0); CREATININE 0.68 MG/DL (0.60-1.30)
[2017-12-20 12:00] VITALS: BP 124/76; PULSE 87; RESP 18; TEMP 98.3; O2SAT 98
--- NOTE | 2017-12-20 13:17 | HHI.PR ---
Subjective Remarks Follow up osteomyelitis. Requesting change in pain medication. He says the IV morphine doesn't last long enough. Objective Vitals Vital Signs Date Time Temp Pulse Resp B/P (MAP) Pulse Ox O2 Delivery O2 Flow Rate FiO2 12/20/17 10:08 Room Air 12/20/17 08:00 98.2 84 16 131/72 (91) 97 12/20/17 03:52 98.4 87 16 151/80 (103) 98 12/19/17 23:17 98.9 88 16 138/74 (95) 97 12/19/17 21:38 Room Air 12/19/17 19:40 98.7 82 16 136/75 (95) 97 12/19/17 16:00 98.8 85 18 123/69 (87) 98 I/O 12/19/17 12/19/17 12/19/17 12/20/17 12/20/17 12/20/17 07:00 15:00 23:00 07:00 15:00 23:00 Intake Total 1827 ml 720 ml 360 ml Output Total 1200 ml 1150 ml Balance 1827 ml -480 ml -790 ml Intake Oral 840 ml 720 ml 360 ml IV Total 987 ml Output Urine Total 1200 ml 1150 ml # Voids 5 # Bowel Movements 0 0 Result Diagram: 12/17/17 0740 12/20/17 0811 Objective Remarks General: No acute distress. Heart: Regular rate and rhythm. No murmur. Lungs: Clear to auscultation bilaterally. No wheezes, rales, or rhonchi. Breathing is nonlabored. Abdomen: Soft, nontender, nondistended. Extremities: No lower extremity edema. Psych: Alert and oriented. Neuro: Normal speech. No focal deficits noted. Skin: Right foot/ankle bandaged. Procedures 12/17/17 bone biopsy, right foot Urinary Catheter: No Vascular Central Line Catheter: No A/P Assessment and Plan 1. Osteomyelitis, right foot: Appreciate podiatry recommendations. Status post bone biopsy. Pathology shows osteomyelitis. Appreciate infectious disease recommendations. Will likely need further surgery and IV antibiotics. 2. Diabetes mellitus: Continue Levemir. Continue sliding scale insulin coverage. 3. Anemia: S/P GI workup during last hospitalization (showed gastritis, hemorrhoids). H&H low, but stable. Continue PPI. 4. DVT prophylaxis: SCDs. Discussed with Dr. Quinteros. Siddharth Lane MD December 20, 2017 13:17
[2017-12-20 16:00] VITALS: BP 132/73; PULSE 84; RESP 18; TEMP 97.9; O2SAT 98
[2017-12-20] MEDS: oxyCODONE/ACETAMINOPHEN 5 MG/325 MG TAB PO PRN ×2 (16:03→20:06)
--- NOTE | 2017-12-20 17:03 | HHI.PR ---
Subjective Remarks Patient seen bedside. Wound evaluated. Denies any N,V,F,Ch. Objective Vital Signs Date Time Temp Pulse Resp B/P (MAP) Pulse Ox O2 Delivery O2 Flow Rate FiO2 12/20/17 10:08 Room Air 12/20/17 08:00 98.2 84 16 131/72 (91) 97 12/20/17 03:52 98.4 87 16 151/80 (103) 98 12/19/17 23:17 98.9 88 16 138/74 (95) 97 12/19/17 21:38 Room Air 12/19/17 19:40 98.7 82 16 136/75 (95) 97 I/O 12/19/17 12/19/17 12/19/17 12/20/17 12/20/17 12/20/17 07:00 15:00 23:00 07:00 15:00 23:00 Intake Total 1827 ml 720 ml 360 ml Output Total 1200 ml 1150 ml Balance 1827 ml -480 ml -790 ml Intake Oral 840 ml 720 ml 360 ml IV Total 987 ml Output Urine Total 1200 ml 1150 ml # Voids 5 # Bowel Movements 0 0 Result Diagram: 12/17/17 0740 12/20/17 0811 Objective Remarks Lower extremity physical exam: Vascular: Dorsalis pedis diminished, posterior tibial diminished. Capillary refill time within normal limits to digits 4 to the right foot. Edema present right foot. Neuro: Gross sensation intact to bilateral lower extremity. Pinpoint sensation decreased. No hyperalgesia noted to bilateral lower extremity Dermatology: Normal temperature and turgor to bilateral lower extremity. Right lateral foot wound with exposed tendon and exposed bone serous drainage noted, improvement noted from last hospitalization. No surrounding erythema noted. Eschar noted to right fourth digit. Musculoskeletal: Tender to palpation to right foot area of ulceration. Medications and IVs Current Medications Medications (Trade) Dose Ordered Sig/Anna Route Start Time Stop Time Status Last Admin (Morphine Inj) 2 mg Q4H PRN IV PUSH 12/15/17 23:15 12/20/17 13:45 (NS Flush) 2 ml UNSCH PRN IV FLUSH 12/15/17 23:15 (NS Flush) 2 ml BID IV FLUSH 12/16/17 09:00 12/20/17 08:21 (Tylenol) 650 mg Q4H PRN PO 12/15/17 23:15 (Zofran Inj) 4 mg Q6H PRN IVP 12/15/17 23:15 (Narcan Inj) 0.4 mg UNSCH PRN IV PUSH 12/15/17 23:15 (Florence-Colace) 1 tab BID PO 12/16/17 09:00 12/19/17 21:33 (Milk Of Magnesia Liq) 30 ml Q12H PRN PO 12/15/17 23:15 (Senokot) 17.2 mg Q12H PRN PO 12/15/17 23:15 (Dulcolax Supp) 10 mg DAILY PRN RECTAL 12/15/17 23:15 (Lactulose Liq) 30 ml DAILY PRN PO 12/15/17 23:15 (D50w (Vial) Inj) 50 ml UNSCH PRN IV PUSH 12/15/17 23:15 (Glucagon Inj) 1 mg UNSCH PRN OTHER 12/15/17 23:15 (NovoLOG SUPPLEMENTAL SCALE) 1 ACHS SLIDING SCALE SQ 12/16/17 08:00 12/20/17 12:00 (Lasix) 20 mg DAILY PO 12/16/17 09:00 12/20/17 08:21 (Neurontin) 600 mg TID PO 12/16/17 09:00 12/20/17 12:05 (Protonix) 40 mg DAILY PO 12/16/17 09:00 12/20/17 08:21 (Santyl Oint) 1 applic DAILY TOPICAL 12/18/17 09:00 12/20/17 08:22 (Levemir Inj) 10 units BID SQ 12/18/17 21:00 12/20/17 08:21 (Percocet 5-325 Mg) 1 tab Q4H PRN PO 12/20/17 13:15 12/20/17 16:03 Assessment and Plan Assessment and Plan 57-year-old male status post right foot incision and drainage of the, completed course of 12 weeks of IV antibiotics Patient examined and evaluated with all questions answered Dressing the right foot changed Will discuss IV antibiotics with ID X-ray ordered to right foot to evaluate bone involved, will evaluate surgical intervention and resection of bone Raquel Hobbs DPM December 20, 2017 17:03
--- NOTE | 2017-12-20 18:57 | RADRPT ---
EXAM DATE/TIME: 12/20/2017 17:18 [facility] COMPARISON: MRI FOOT RIGHT W & W/O CONTRAST, October 24, 2017, 10:08. FOOT RIGHT COMPLETE ([id number]), October 23, 2017, 17:15. INDICATIONS : Osteomyelitis. MEDICAL HISTORY : Renal calculi, diabetes, hallucinations. SURGICAL HISTORY : Right foot, fifth digit amputation. ENCOUNTER: Initial ACUITY: 1 day PAIN SCORE: 0/10 LOCATION: Right foot. FINDINGS: 3 views of the right foot. There is evidence of prior fifth metatarsal and fifth toe amputation. Moshe ply marginated moderate-sized bone erosions of the medial base of the third proximal phalanx, the med ial third metatarsal head, the lateral second metatarsal head, and the medial second metatarsal head. These findings are very suspicious for osteomyelitis in the proper clinical setting. Joint narrowing and mixed lucency and sclerosis about all of the tarsometatarsal joints as well as the talonavicular joint. Bone marrow small amount of seen in these regions on prior MRI of October 24, 2017. CONCLUSION: 1. Bone erosions at the second and third metatarsal heads as well as at the base of the third proxima l phalanx. Findings are suspicious for osteomyelitis in the proper clinical setting. 2. Nonspecific findings about the tarsometatarsal joints and talonavicular joint. 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 Cyrus Sears MD on December 20, 2017 at 18:49 Board Certified Radiologist. This report was verified electronically.
--- NOTE | 2017-12-20 18:59 | HHI.IDPN ---
Subjective Subjective Remarks Patient seen and examined with Dr. Quinteros Mr. Braxton is a 57-year-old male with past medical history significant for diabetes type 2, prior diabetic foot ulcer treated in October 2016 thereafter was hospitalized from May 08, 2017 to May 29, 2017 due to foot ulcer. During that hospitalization patient underwent surgical debridement with wound VAC placement. Patient reports that he was seen by Dr. Pritchard during that admission. Patient reports that he was discharged on IV ceftriaxone using a PICC line. Patient had home health care visits him and continue to receive wound VAC changes at home. He also was subsequently seen at wound care clinic for ongoing wound care as well as [facility] clinic for his primary care needs. Patient reports that his medications were recently adjusted and a new insulin was introduced. Patient reports that he was diagnosed with a possible staph or strep infection and has been on oral Bactrim approximately 2 weeks prior to admission. Due to worsening foot infection as well as possible reaction to the new insulin patient presented to the emergency department [facility]. Patient reports that he was having fevers, chills, loss of appetite and diarrhea for the past 2 days associated with frequent urination. Patient denies any dysuria. He reports dizziness and reported history of falls 3 days ago while on the toilet. Patient's reports that she was unaware of this history of fall. He denies any head injury. Patient reports hitting his right foot and shoulder but that he was able to get off the floor by himself. Patient had a sepsis workup initiated on admission. Wound cultures are positive for strep as well as blood cultures are now positive for gram-positive likely strep. Repeat blood cultures have been ordered. Podiatry is seeing the patient and there is a plan for surgical intervention and possible amputation of the involved digit. Infectious disease is consulted for evaluation and management of right fifth toe osteomyelitis with associated cellulitis, gram-positive bacteremia and sepsis. Overnight events reviewed no fever no N/V. patient reports good appetite no dysuria. patient reports urinating well no diarrhea s/p bone bx showing acute osteomyelitis white count WNL BCX with no growth in 5 days Wound cx with no growth in 72 hours Antibiotics No antibiotics Current Medications Medications (Trade) Dose Ordered Sig/Anna Route Start Time Stop Time Status Last Admin (Morphine Inj) 2 mg Q4H PRN IV PUSH 12/15/17 23:15 12/20/17 17:47 (NS Flush) 2 ml UNSCH PRN IV FLUSH 12/15/17 23:15 (NS Flush) 2 ml BID IV FLUSH 12/16/17 09:00 12/20/17 08:21 (Tylenol) 650 mg Q4H PRN PO 12/15/17 23:15 (Zofran Inj) 4 mg Q6H PRN IVP 12/15/17 23:15 (Narcan Inj) 0.4 mg UNSCH PRN IV PUSH 12/15/17 23:15 (Florence-Colace) 1 tab BID PO 12/16/17 09:00 12/19/17 21:33 (Milk Of Magnesia Liq) 30 ml Q12H PRN PO 12/15/17 23:15 (Senokot) 17.2 mg Q12H PRN PO 12/15/17 23:15 (Dulcolax Supp) 10 mg DAILY PRN RECTAL 12/15/17 23:15 (Lactulose Liq) 30 ml DAILY PRN PO 12/15/17 23:15 (D50w (Vial) Inj) 50 ml UNSCH PRN IV PUSH 12/15/17 23:15 (Glucagon Inj) 1 mg UNSCH PRN OTHER 12/15/17 23:15 (NovoLOG SUPPLEMENTAL SCALE) 1 ACHS SLIDING SCALE SQ 12/16/17 08:00 12/20/17 12:00 (Lasix) 20 mg DAILY PO 12/16/17 09:00 12/20/17 08:21 (Neurontin) 600 mg TID PO 12/16/17 09:00 12/20/17 17:05 (Protonix) 40 mg DAILY PO 12/16/17 09:00 12/20/17 08:21 (Santyl Oint) 1 applic DAILY TOPICAL 12/18/17 09:00 12/20/17 08:22 (Levemir Inj) 10 units BID SQ 12/18/17 21:00 12/20/17 08:21 (Percocet 5-325 Mg) 1 tab Q4H PRN PO 12/20/17 13:15 12/20/17 16:03 Lines PIV with no e/o infection Past Medical History DM II Right foot ulcer with possible osteomyelitis in the past. Has received IV antibiotics long-term using a PICC line in the past. Renal stones (Liberty,Ami PA) Allergies: Coded Allergies: No Known Allergies (Unverified Allergy, Unknown, 11/28/17) Uncoded Allergies: [place] citizen dressing (Allergy, Severe, Anaphylaxis, 10/07/17) Objective . Vital Signs Date Time Temp Pulse Resp B/P (MAP) Pulse Ox O2 Delivery O2 Flow Rate FiO2 12/20/17 16:00 97.9 84 18 132/73 (92) 98 12/20/17 12:00 98.3 87 18 124/76 (92) 98 12/20/17 10:08 Room Air 12/20/17 08:00 98.2 84 16 131/72 (91) 97 12/20/17 03:52 98.4 87 16 151/80 (103) 98 12/19/17 23:17 98.9 88 16 138/74 (95) 97 12/19/17 21:38 Room Air 12/19/17 19:40 98.7 82 16 136/75 (95) 97 . Laboratory Tests Test 12/20/17 08:11 Blood Urea Nitrogen 12 MG/DL Creatinine 0.68 MG/DL Random Glucose 123 MG/DL Calcium Level 9.0 MG/DL Sodium Level 137 MEQ/L Potassium Level 3.8 MEQ/L Chloride Level 102 MEQ/L Carbon Dioxide Level 24.6 MEQ/L Anion Gap 10 MEQ/L Estimat Glomerular Filtration Rate 119 ML/MIN Physical Exam GENERAL: This is a well-nourished, well-developed male patient, in no apparent distress. Awake and alert. SKIN: No rashes, ecchymoses or lesions. Cool and dry. HEAD: Atraumatic. Normocephalic. No temporal or scalp tenderness. EYES: Pupils equal round and reactive. Extraocular motions intact. No scleral icterus. No injection or drainage. ENT: Nose without bleeding, purulent drainage or septal hematoma. Throat without erythema, tonsillar hypertrophy or exudate. Uvula midline. Airway patent. NECK: Trachea midline. Supple, nontender, no meningeal signs. CARDIOVASCULAR: HS audible. No murmur appreciated. RESPIRATORY: Clear to auscultation. Breath sounds equal bilaterally. No wheezes , rales, or rhonchi. GASTROINTESTINAL: Abdomen soft, non-tender, nondistended. MUSCULOSKELETAL: RLE with gaping wound from prior surgery. Hypergranulation tissue noted plus yellowish purulent looking material as well. Tendon exposed and possibly bone exposed. No surrounding erythema. NEUROLOGICAL: Awake and alert. Non focal exam Psych cooperative IV line sites with no e.o infection. (Ami Prado) Assessment & Plan Remarks Osteomyelitis partially treated or new infection as bone and tendon was exposed earlier. Patient had refused skin graft last admission. -12/18 bone bx positive for acute osteomyelitis Possible tendinitis. 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 Fevers on Ancef and PCN: drug fever hence treated with Dapto IV which is not first line. Recs Continue to observe off antibiotics for now Patient has completed a long course of antibiotics. Will discuss further with Dr. Vallecillo Will follow along. Follow cultures Follow clinically. Further recommendations for antibiotic treatment pending discussion with podiatry (Ami Prado) Remarks The exam, history, and the medical decision-making described in the above note were completed with the assistance of the mid-level provider. I reviewed and agree with the findings presented. I attest that I had a [id number] encounter with the patient on the same day, and personally performed and documented my assessment and findings in the medical record. Pt aware of bone biopsy results On exam CTA BL Foot in dressing. Recs: Start Ancef IV Start high dose Diflucan Check 12 lead EKG for baseline. Follow cultures Follow clinically. Will dw podiatry (Chuyita Quinteros MD) Ami Prado December 20, 2017 18:59 Chuyita Quinteros MD December 20, 2017 21:34
[2017-12-20 20:00] VITALS: BP 116/69; PULSE 85; RESP 20; TEMP 98.1; O2SAT 98
[2017-12-20] MEDS ORDERED: FLUCONAZOLE 400 MG PREMIX BAG 400 ML IV SCH (22:00)
[2017-12-20] MEDS: FLUCONAZOLE 400 MG PREMIX BAG 400 ML IV SCH (22:48)
[2017-12-20] MEDS: ceFAZolin 2 GM PREMIX 50 ML IV SCH (22:48)
[2017-12-21] VITALS: BP 124/70; PULSE 85; RESP 20; TEMP 98.9; O2SAT 97
[2017-12-21] MEDS: MORPHINE SULFATE 4 MG/ML INJ IV PUSH PRN ×6 (01:45→21:59)
[2017-12-21 04:00] VITALS: BP 108/65; PULSE 92; RESP 20; TEMP 97.9; O2SAT 100
[2017-12-21] MEDS: oxyCODONE/ACETAMINOPHEN 5 MG/325 MG TAB PO PRN ×6 (04:02→20:00)
[2017-12-21] MEDS: ceFAZolin 2 GM PREMIX 50 ML IV SCH ×3 (05:52→21:58)
[2017-12-21 08:00] VITALS: BP 131/78; PULSE 87; RESP 20; TEMP 98.4; O2SAT 99
[2017-12-21] MEDS: INSULIN ASPART SUPPLEMENTAL SCALE SQ SCH ×4 (08:00→20:01)
[2017-12-21] MEDS: GABAPENTIN 300 MG CAP PO SCH ×3 (08:06→16:45)
[2017-12-21] MEDS: DOCUSATE SODIUM 50 MG/SENNA 8.6 MG TAB PO SCH ×2 (08:06→20:00)
[2017-12-21] MEDS: SODIUM CHLORIDE 0.9% FLUSH 10 ML FLUSH IV FLUSH SCH ×2 (08:06→20:00)
[2017-12-21] MEDS: PANTOPRAZOLE SOD 40 MG DELAYED RELEASE TAB PO SCH (08:06)
[2017-12-21] MEDS: FUROSEMIDE 20 MG TAB PO SCH (08:06)
[2017-12-21] MEDS: COLLAGENASE OINT 30 GM TUBE TOPICAL SCH (08:07)
[2017-12-21] MEDS: INSULIN DETEMIR 100 UNITS/ML VIAL SQ SCH ×2 (08:07→20:00)
[2017-12-21 08:35] LABS: BASOPHIL # 0.1 TH/MM3 (0-0.2); BASOPHIL % 0.8 % (0.0-2.0); EOSINOPHIL # 0.5 TH/MM3 (0-0.4); EOSINOPHIL % 6.3 % (0.0-4.0); HEMATOCRIT 27.4 % (39.0-51.0); LYMPH % 31.5 % (9.0-44.0); LYMPHOCYTE # 2.3 TH/MM3 (1.0-4.8); MEAN CELL VOLUME 74.5 FL (80.0-100.0); MEAN CORPUSCULAR HEMOGLOBIN 24.3 PG (27.0-34.0); MEAN CORPUSCULAR HGB CONC 32.6 % (32.0-36.0); MEAN PLATELET VOLUME 7.2 FL (7.0-11.0); MONO % 7.8 % (0.0-8.0); MONOCYTE # 0.6 TH/MM3 (0-0.9); NEUT % 53.6 % (16.0-70.0); PLATELET COUNT 440 TH/MM3 (150-450); RED BLOOD COUNT 3.68 MIL/MM3 (4.50-5.90); RED CELL DISTRIBUTION WIDTH 18.1 % (11.6-17.2); WHITE BLOOD COUNT 7.4 TH/MM3 (4.0-11.0)
[2017-12-21 09:25] LABS: BICARBONATE 27.2 MEQ/L (21.0-32.0); CALCIUM 9.5 MG/DL (8.5-10.1); CREATININE 0.9 MG/DL (0.60-1.30)
[2017-12-21 12:00] VITALS: BP 96/52; PULSE 83; RESP 20; TEMP 98.3; O2SAT 97
--- NOTE | 2017-12-21 12:17 | EKG ---
Date Performed: 12/20/2017 Time Performed: 22:48:15 PTAGE: 57 years EKG: Sinus rhythm NORMAL ECG PREVIOUS TRACING : 10/07/2017 21.49 Since the previous tracing, no significant change noted DOCTOR: Ryan Prieto Interpretating Date/Time 12/21/2017 12:15:00
--- NOTE | 2017-12-21 12:34 | HHI.PR ---
Subjective Remarks Follow up osteomyelitis. Pain control improved after pain meds were adjusted. No other complaints at this time. Objective Vitals Vital Signs Date Time Temp Pulse Resp B/P (MAP) Pulse Ox O2 Delivery O2 Flow Rate FiO2 12/21/17 09:32 Room Air 12/21/17 08:00 98.4 87 20 131/78 (95) 99 12/21/17 04:00 97.9 92 20 108/65 (79) 100 12/21/17 00:00 98.9 85 20 124/70 (88) 97 12/21/17 00:00 Room Air 12/20/17 20:00 98.1 85 20 116/69 (85) 98 12/20/17 20:00 Room Air 12/20/17 16:00 97.9 84 18 132/73 (92) 98 I/O 12/20/17 12/20/17 12/20/17 12/21/17 12/21/17 12/21/17 07:00 15:00 23:00 07:00 15:00 23:00 Intake Total 360 ml 1200 ml 480 ml Output Total 1150 ml 1275 ml 2450 ml Balance -790 ml -75 ml -1970 ml Intake Oral 360 ml 1200 ml 480 ml Output Urine Total 1150 ml 1275 ml 2450 ml # Bowel Movements 0 1 Result Diagram: 12/21/17 0743 12/21/17 0743 Imaging Last Impressions Foot X-Ray 12/20/17 0000 Signed Impressions: Service Date/Time: Wednesday, December 20, 2017 17:18 - CONCLUSION: 1. Bone erosions at the second and third metatarsal heads as well as at the base of the third proximal phalanx. Findings are suspicious for osteomyelitis in the proper clinical setting. 2. Nonspecific findings about the tarsometatarsal joints and talonavicular joint. 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 Cyrus Sears MD Objective Remarks General: No acute distress. Heart: Regular rate and rhythm. No murmur. Lungs: Clear to auscultation bilaterally. No wheezes, rales, or rhonchi. Breathing is nonlabored. Abdomen: Soft, nontender, nondistended. Extremities: No lower extremity edema. Psych: Sleeping, but awakens easily and answers questions appropriately. Neuro: Normal speech. No focal deficits noted. Skin: Right foot/ankle bandaged. Procedures 12/17/17 bone biopsy, right foot Urinary Catheter: No Vascular Central Line Catheter: No A/P Assessment and Plan 1. Osteomyelitis, right foot: Appreciate podiatry recommendations. Status post bone biopsy. Pathology shows osteomyelitis. Appreciate infectious disease recommendations. Will likely need further surgery. Continue IV antibiotics. 2. Diabetes mellitus: Continue Levemir. Continue sliding scale insulin coverage. 3. Anemia: S/P GI workup during last hospitalization (showed gastritis, hemorrhoids). H&H improved today. Continue PPI. 4. DVT prophylaxis: SCDs. Siddharth Lane MD December 21, 2017 12:34
[2017-12-21 16:00] VITALS: BP 85/52; PULSE 99; RESP 20; TEMP 97.7; O2SAT 98
--- NOTE | 2017-12-21 17:02 | RADRPT ---
EXAM DATE/TIME: 12/21/2017 16:13 [facility] COMPARISON: MRI FOOT RIGHT W & W/O CONTRAST, October 24, 2017, 10:08. MRI ANKLE RIGHT W & W/O CONTRAST, October 24, 2017, 10:08. FOOT RIGHT COMPLETE ([id number]), December 20, 2017, 17:18. INDICATIONS : Osteomyelitis. MEDICAL HISTORY : Diabetes mellitus type 2. SURGICAL HISTORY : Tonsillectomy. Right foot surgeries. ENCOUNTER: Initial ACUITY: 1 day PAIN SCORE: 4/10 LOCATION: Right foot. TECHNIQUE: Multiplanar, multisequence MRI examination was performed without contrast. FINDINGS: Evidence of prior fifth metatarsal and fifth toe amputation. Cutaneous ulceration at the lateral aspect of the midfoot. Severe ill-defined adjacent superficial so ft tissue edema extending to the base of the fourth metatarsal and lateral aspect of the cuboid. Conchita re bony edema with confluent signal abnormality on the T1-weighted images at the base of the fourth m etatarsal. This finding is new and suggests osteomyelitis. The abnormality extends from the proximal margin of the metatarsal and measures 2.9 cm and proximal to distal dimension. Confluent signal abnor mality at the lateral margin of the cuboid measuring 1 cm x 0.7 cm in axial dimensions also suggests osteomyelitis. Increased, severe on edema is seen diffusely in the talar head, navicular, cuneiforms, and second and third metatarsal bases. These findings are not immediately contiguous with the area cutaneous ulcera tion and are nonspecific. Differential diagnosis is infection versus worsening neuropathic osteoarthr opathy/Charcot arthropathy. Ill-defined severe bony edema in the second and third metatarsal heads and at the bases of the second and third proximal phalanges. Correlating bone erosion is seen on plain film. Findings indicate eros leigha arthropathy and particularly in combination with radiographic findings, the findings are suspicio us for septic arthritis/osteomyelitis. Other inflammatory arthritis etiologies are also in the differ ential diagnosis. CONCLUSION: 1. Cutaneous ulceration at the lateral mid foot with adjacent severe fourth metatarsal base bony abno rmality and cuboid bony abnormality indicating osteomyelitis in the proper clinical setting. 2. Severe, increased bony abnormality about the navicular cuneiform joints, talonavicular joint, and the second and third tarsometatarsal joints. Not immediately contiguous with the cutaneous ulceration . May represent osteomyelitis or worsening neuropathic osteoarthropathy. 3. New severe erosive arthropathy of the second and third metatarsophalangeal joints. Differential di agnosis includes infection/septic arthritis versus other inflammatory arthritis. Cyrus Sears MD on December 21, 2017 at 16:46 Board Certified Radiologist. This report was verified electronically.
--- NOTE | 2017-12-21 17:53 | HHI.IDPN ---
Subjective Subjective Remarks Patient seen and examined with Dr. Quinteros Mr. Braxton is a 57-year-old male with past medical history significant for diabetes type 2, prior diabetic foot ulcer treated in October 2016 thereafter was hospitalized from May 08, 2017 to May 29, 2017 due to foot ulcer. During that hospitalization patient underwent surgical debridement with wound VAC placement. Patient reports that he was seen by Dr. Pritchard during that admission. Patient reports that he was discharged on IV ceftriaxone using a PICC line. Patient had home health care visits him and continue to receive wound VAC changes at home. He also was subsequently seen at wound care clinic for ongoing wound care as well as [facility] clinic for his primary care needs. Patient reports that his medications were recently adjusted and a new insulin was introduced. Patient reports that he was diagnosed with a possible staph or strep infection and has been on oral Bactrim approximately 2 weeks prior to admission. Due to worsening foot infection as well as possible reaction to the new insulin patient presented to the emergency department [facility]. Patient reports that he was having fevers, chills, loss of appetite and diarrhea for the past 2 days associated with frequent urination. Patient denies any dysuria. He reports dizziness and reported history of falls 3 days ago while on the toilet. Patient's reports that she was unaware of this history of fall. He denies any head injury. Patient reports hitting his right foot and shoulder but that he was able to get off the floor by himself. Patient had a sepsis workup initiated on admission. Wound cultures are positive for strep as well as blood cultures are now positive for gram-positive likely strep. Repeat blood cultures have been ordered. Podiatry is seeing the patient and there is a plan for surgical intervention and possible amputation of the involved digit. Infectious disease is consulted for evaluation and management of right fifth toe osteomyelitis with associated cellulitis, gram-positive bacteremia and sepsis. Overnight events noted Notes reviewed no fever no rash no N/V no diarrhea afebrile WBC WNL s/p bone bx showing acute osteomyelitis Wound cx with no growth BCX with no growth MRI + for osteomyelitis 4th metatarsal and severe, increased bony abnormality about the navicular cuneiform joints, talonavicular joint, and the second and third tarsometatarsal joints possibly representing osteo and new erosive arthropathy of the 2nd and 3rd metatarsophalangeal joints Antibiotics IV Cefazolin IV Diflucan Current Medications Medications (Trade) Dose Ordered Sig/Anna Route Start Time Stop Time Status Last Admin (Morphine Inj) 2 mg Q4H PRN IV PUSH 12/15/17 23:15 12/20/17 17:47 (NS Flush) 2 ml UNSCH PRN IV FLUSH 12/15/17 23:15 (NS Flush) 2 ml BID IV FLUSH 12/16/17 09:00 12/20/17 08:21 (Tylenol) 650 mg Q4H PRN PO 12/15/17 23:15 (Zofran Inj) 4 mg Q6H PRN IVP 12/15/17 23:15 (Narcan Inj) 0.4 mg UNSCH PRN IV PUSH 12/15/17 23:15 (Florence-Colace) 1 tab BID PO 12/16/17 09:00 12/19/17 21:33 (Milk Of Magnesia Liq) 30 ml Q12H PRN PO 12/15/17 23:15 (Senokot) 17.2 mg Q12H PRN PO 12/15/17 23:15 (Dulcolax Supp) 10 mg DAILY PRN RECTAL 12/15/17 23:15 (Lactulose Liq) 30 ml DAILY PRN PO 12/15/17 23:15 (D50w (Vial) Inj) 50 ml UNSCH PRN IV PUSH 12/15/17 23:15 (Glucagon Inj) 1 mg UNSCH PRN OTHER 12/15/17 23:15 (NovoLOG SUPPLEMENTAL SCALE) 1 ACHS SLIDING SCALE SQ 12/16/17 08:00 12/20/17 12:00 (Lasix) 20 mg DAILY PO 12/16/17 09:00 12/20/17 08:21 (Neurontin) 600 mg TID PO 12/16/17 09:00 12/20/17 17:05 (Protonix) 40 mg DAILY PO 12/16/17 09:00 12/20/17 08:21 (Santyl Oint) 1 applic DAILY TOPICAL 12/18/17 09:00 12/20/17 08:22 (Levemir Inj) 10 units BID SQ 12/18/17 21:00 12/20/17 08:21 (Percocet 5-325 Mg) 1 tab Q4H PRN PO 12/20/17 13:15 12/20/17 16:03 Lines PIV with no e/o infection Past Medical History DM II Right foot ulcer with possible osteomyelitis in the past. Has received IV antibiotics long-term using a PICC line in the past. Renal stones (Ami Prado) Allergies: Coded Allergies: No Known Allergies (Unverified Allergy, Unknown, 11/28/17) Uncoded Allergies: swedish dressing (Allergy, Severe, Anaphylaxis, 10/07/17) Objective . Vital Signs Date Time Temp Pulse Resp B/P (MAP) Pulse Ox O2 Delivery O2 Flow Rate FiO2 12/21/17 09:32 Room Air 12/21/17 08:00 98.4 87 20 131/78 (95) 99 12/21/17 04:00 97.9 92 20 108/65 (79) 100 12/21/17 00:00 98.9 85 20 124/70 (88) 97 12/21/17 00:00 Room Air 12/20/17 20:00 98.1 85 20 116/69 (85) 98 12/20/17 20:00 Room Air . Laboratory Tests Test 12/21/17 07:43 White Blood Count 7.4 TH/MM3 Red Blood Count 3.68 MIL/MM3 Hemoglobin 9.0 GM/DL Hematocrit 27.4 % Mean Corpuscular Volume 74.5 FL Mean Corpuscular Hemoglobin 24.3 PG Mean Corpuscular Hemoglobin Concent 32.6 % Red Cell Distribution Width 18.1 % Platelet Count 440 TH/MM3 Mean Platelet Volume 7.2 FL Neutrophils (%) (Auto) 53.6 % Lymphocytes (%) (Auto) 31.5 % Monocytes (%) (Auto) 7.8 % Eosinophils (%) (Auto) 6.3 % Basophils (%) (Auto) 0.8 % Neutrophils # (Auto) 4.0 TH/MM3 Lymphocytes # (Auto) 2.3 TH/MM3 Monocytes # (Auto) 0.6 TH/MM3 Eosinophils # (Auto) 0.5 TH/MM3 Basophils # (Auto) 0.1 TH/MM3 CBC Comment DIFF FINAL Differential Comment Laboratory Tests Test 12/20/17 08:11 12/21/17 07:43 Blood Urea Nitrogen 12 MG/DL 18 MG/DL Creatinine 0.68 MG/DL 0.90 MG/DL Random Glucose 123 MG/DL 138 MG/DL Calcium Level 9.0 MG/DL 9.5 MG/DL Sodium Level 137 MEQ/L 137 MEQ/L Potassium Level 3.8 MEQ/L 4.4 MEQ/L Chloride Level 102 MEQ/L 100 MEQ/L Carbon Dioxide Level 24.6 MEQ/L 27.2 MEQ/L Anion Gap 10 MEQ/L 10 MEQ/L Estimat Glomerular Filtration Rate 119 ML/MIN 86 ML/MIN Imaging Last Impressions Foot MRI 12/21/17 0000 Signed Impressions: Service Date/Time: Thursday, December 21, 2017 16:13 - CONCLUSION: 1. Cutaneous ulceration at the lateral mid foot with adjacent severe fourth metatarsal base bony abnormality and cuboid bony abnormality indicating osteomyelitis in the proper clinical setting. 2. Severe, increased bony abnormality about the navicular cuneiform joints, talonavicular joint, and the second and third tarsometatarsal joints. Not immediately contiguous with the cutaneous ulceration. May represent osteomyelitis or worsening neuropathic osteoarthropathy. 3. New severe erosive arthropathy of the second and third metatarsophalangeal joints. Differential diagnosis includes infection/septic arthritis versus other inflammatory arthritis. Cyrus Sears MD Foot X-Ray 12/20/17 0000 Signed Impressions: Service Date/Time: Wednesday, December 20, 2017 17:18 - CONCLUSION: 1. Bone erosions at the second and third metatarsal heads as well as at the base of the third proximal phalanx. Findings are suspicious for osteomyelitis in the proper clinical setting. 2. Nonspecific findings about the tarsometatarsal joints and talonavicular joint. 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 Cyrus Sears MD Physical Exam GENERAL: This is a well-nourished, well-developed male patient, in no apparent distress. Awake and alert. SKIN: No rashes, ecchymoses or lesions. Cool and dry. HEAD: Atraumatic. Normocephalic. No temporal or scalp tenderness. EYES: Pupils equal round and reactive. Extraocular motions intact. No scleral icterus. No injection or drainage. ENT: Nose without bleeding, purulent drainage or septal hematoma. Throat without erythema, tonsillar hypertrophy or exudate. Uvula midline. Airway patent. NECK: Trachea midline. Supple, nontender, no meningeal signs. CARDIOVASCULAR: HS audible. No murmur appreciated. RESPIRATORY: Clear to auscultation. Breath sounds equal bilaterally. No wheezes , rales, or rhonchi. GASTROINTESTINAL: Abdomen soft, non-tender, nondistended. MUSCULOSKELETAL: RLE with gaping wound from prior surgery. Hypergranulation tissue noted plus yellowish purulent looking material as well. Tendon exposed and possibly bone exposed. No surrounding erythema. NEUROLOGICAL: Awake and alert. Non focal exam Psych cooperative IV line sites with no e.o infection. (Ami Prado) Assessment & Plan Remarks Osteomyelitis partially treated or new infection as bone and tendon was exposed earlier. Patient had refused skin graft last admission. -12/18 bone bx positive for acute osteomyelitis -MRI + for osteomyelitis 4th metatarsal and severe, increased bony abnormality about the navicular cuneiform joints, talonavicular joint, and the second and third tarsometatarsal joints possibly representing osteo and new erosive arthropathy of the 2nd and 3rd metatarsophalangeal joints -podiatry following Possible tendinitis. 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 Fevers on Ancef and PCN: drug fever hence treated with Dapto IV which is not first line. Recs Continue on IV Cefazolin (monitor for fever recurrence) and high dose Diflucan - patient will need to monitor LFTs and EKG (for QT prolongation) weekly Will follow along. Follow cultures Follow clinically. (Ami Prado) Remarks The exam, history, and the medical decision-making described in the above note were completed with the assistance of the mid-level provider. I reviewed and agree with the findings presented. I attest that I had a [id number] encounter with the patient on the same day, and personally performed and documented my assessment and findings in the medical record. Acute osteomyelitis of foot Tendinitis infectious Continue Ancef IV Continue Diflucan Monitor 12 lead relationship management lead weekly CBC with diff, CMP, CRP Await dw Podiatry. Podiatry informs me of plan for skin graft at some point. dw patient plan (Chuyita Quinteros MD) Ami Prado December 21, 2017 17:53 Chuyita Quinteros MD December 21, 2017 19:46
[2017-12-21 20:00] VITALS: BP 104/64; PULSE 93; RESP 20; TEMP 97.9; O2SAT 99
[2017-12-21] MEDS: FLUCONAZOLE 400 MG PREMIX BAG 400 ML IV SCH (22:01)
[2017-12-22] VITALS: BP 118/74; PULSE 94; RESP 20; TEMP 98.3; O2SAT 99
[2017-12-22] MEDS: MORPHINE SULFATE 4 MG/ML INJ IV PUSH PRN ×6 (02:09→23:42)
[2017-12-22 04:00] VITALS: BP 119/72; PULSE 96; RESP 20; TEMP 98.2; O2SAT 99
[2017-12-22] MEDS: oxyCODONE/ACETAMINOPHEN 5 MG/325 MG TAB PO PRN ×6 (04:01→21:28)
[2017-12-22] MEDS: ceFAZolin 2 GM PREMIX 50 ML IV SCH ×3 (06:00→21:33)
[2017-12-22 08:00] VITALS: BP 127/74; PULSE 101; RESP 18; TEMP 99.8; O2SAT 98
[2017-12-22] MEDS: INSULIN ASPART SUPPLEMENTAL SCALE SQ SCH ×4 (08:00→21:00)
[2017-12-22] MEDS: GABAPENTIN 300 MG CAP PO SCH ×3 (08:12→17:52)
[2017-12-22] MEDS: FUROSEMIDE 20 MG TAB PO SCH (08:12)
[2017-12-22] MEDS: PANTOPRAZOLE SOD 40 MG DELAYED RELEASE TAB PO SCH (08:12)
[2017-12-22] MEDS: INSULIN DETEMIR 100 UNITS/ML VIAL SQ SCH ×2 (08:13→21:30)
[2017-12-22] MEDS: DOCUSATE SODIUM 50 MG/SENNA 8.6 MG TAB PO SCH ×2 (08:13→21:00)
[2017-12-22] MEDS: SODIUM CHLORIDE 0.9% FLUSH 10 ML FLUSH IV FLUSH SCH ×2 (08:14→21:27)
[2017-12-22] MEDS: COLLAGENASE OINT 30 GM TUBE TOPICAL SCH (08:14)
[2017-12-22 12:00] VITALS: BP 96/53; PULSE 112; RESP 18; TEMP 99.2; O2SAT 98
--- NOTE | 2017-12-22 13:35 | HHI.PR ---
Subjective Remarks Follow up osteomyelitis. Pain is well controlled. He has no complaints at this time. Objective Vitals Vital Signs Date Time Temp Pulse Resp B/P (MAP) Pulse Ox O2 Delivery O2 Flow Rate FiO2 12/22/17 08:00 99.8 101 18 127/74 (91) 98 12/22/17 08:00 Room Air 12/22/17 04:00 98.2 96 20 119/72 (88) 99 12/22/17 04:00 Room Air 12/22/17 00:00 98.3 94 20 118/74 (89) 99 12/22/17 00:00 Room Air 12/22/17 00:00 98.3 94 20 118/74 (89) 99 12/21/17 20:00 97.9 93 20 104/64 (77) 99 12/21/17 20:00 Room Air 12/21/17 16:00 97.7 99 20 85/52 (63) 98 I/O 12/21/17 12/21/17 12/21/17 12/22/17 12/22/17 12/22/17 07:00 15:00 23:00 07:00 15:00 23:00 Intake Total 780 ml 720 ml 800 ml Output Total 2450 ml 1550 ml 2000 ml Balance -1670 ml -830 ml -1200 ml Intake Oral 480 ml 720 ml 800 ml IV Total 300 ml Output Urine Total 2450 ml 1550 ml 2000 ml # Bowel Movements 1 1 1 Result Diagram: 12/21/17 0743 12/21/17 0743 Imaging Last Impressions Foot MRI 12/21/17 0000 Signed Impressions: Service Date/Time: Thursday, December 21, 2017 16:13 - CONCLUSION: 1. Cutaneous ulceration at the lateral mid foot with adjacent severe fourth metatarsal base bony abnormality and cuboid bony abnormality indicating osteomyelitis in the proper clinical setting. 2. Severe, increased bony abnormality about the navicular cuneiform joints, talonavicular joint, and the second and third tarsometatarsal joints. Not immediately contiguous with the cutaneous ulceration. May represent osteomyelitis or worsening neuropathic osteoarthropathy. 3. New severe erosive arthropathy of the second and third metatarsophalangeal joints. Differential diagnosis includes infection/septic arthritis versus other inflammatory arthritis. Cyrus Sears MD Foot X-Ray 12/20/17 0000 Signed Impressions: Service Date/Time: Wednesday, December 20, 2017 17:18 - CONCLUSION: 1. Bone erosions at the second and third metatarsal heads as well as at the base of the third proximal phalanx. Findings are suspicious for osteomyelitis in the proper clinical setting. 2. Nonspecific findings about the tarsometatarsal joints and talonavicular joint. 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 Cyrus Sears MD Objective Remarks General: No acute distress. Heart: Regular rate and rhythm. No murmur. Lungs: Clear to auscultation bilaterally. No wheezes, rales, or rhonchi. Breathing is nonlabored. Abdomen: Soft, nontender, nondistended. Extremities: No lower extremity edema. Psych: Sleeping, but awakens easily and answers questions appropriately. Neuro: Normal speech. No focal deficits noted. Skin: Right foot/ankle bandaged. Procedures 12/17/17 bone biopsy, right foot Urinary Catheter: No Vascular Central Line Catheter: No A/P Assessment and Plan 12/22/17: No change. Continue IV antibiotics for osteomyelitis. Awaiting further recommendations from Podiatry, Infectious disease. Discussed with Dr. Quinteros. 1. Osteomyelitis, right foot: Appreciate podiatry recommendations. Status post bone biopsy. Pathology shows osteomyelitis. Appreciate infectious disease recommendations. Will likely need further surgery. Continue IV antibiotics. 2. Diabetes mellitus: Continue Levemir. Continue sliding scale insulin coverage. 3. Anemia: S/P GI workup during last hospitalization (showed gastritis, hemorrhoids). H&H improved. Continue PPI. 4. DVT prophylaxis: SCDs. Siddharth Lane MD December 22, 2017 13:35
--- NOTE | 2017-12-22 15:29 | HHI.IDPN ---
Subjective Subjective Remarks Patient seen and examined with Dr. Quinteros Mr. Braxton is a 57-year-old male with past medical history significant for diabetes type 2, prior diabetic foot ulcer treated in October 2016 thereafter was hospitalized from May 08, 2017 to May 29, 2017 due to foot ulcer. During that hospitalization patient underwent surgical debridement with wound VAC placement. Patient reports that he was seen by Dr. Pritchard during that admission. Patient reports that he was discharged on IV ceftriaxone using a PICC line. Patient had home health care visits him and continue to receive wound VAC changes at home. He also was subsequently seen at wound care clinic for ongoing wound care as well as [facility] clinic for his primary care needs. Patient reports that his medications were recently adjusted and a new insulin was introduced. Patient reports that he was diagnosed with a possible staph or strep infection and has been on oral Bactrim approximately 2 weeks prior to admission. Due to worsening foot infection as well as possible reaction to the new insulin patient presented to the emergency department [facility]. Patient reports that he was having fevers, chills, loss of appetite and diarrhea for the past 2 days associated with frequent urination. Patient denies any dysuria. He reports dizziness and reported history of falls 3 days ago while on the toilet. Patient's reports that she was unaware of this history of fall. He denies any head injury. Patient reports hitting his right foot and shoulder but that he was able to get off the floor by himself. Patient had a sepsis workup initiated on admission. Wound cultures are positive for strep as well as blood cultures are now positive for gram-positive likely strep. Repeat blood cultures have been ordered. Podiatry is seeing the patient and there is a plan for surgical intervention and possible amputation of the involved digit. Infectious disease is consulted for evaluation and management of right fifth toe osteomyelitis with associated cellulitis, gram-positive bacteremia and sepsis. Overnight events noted Notes reviewed no fever no rash no N/V no diarrhea afebrile WBC WNL s/p bone bx showing acute osteomyelitis Wound cx with no growth BCX with no growth MRI + for osteomyelitis 4th metatarsal and severe, increased bony abnormality about the navicular cuneiform joints, talonavicular joint, and the second and third tarsometatarsal joints possibly representing osteo and new erosive arthropathy of the 2nd and 3rd metatarsophalangeal joints Antibiotics IV Cefazolin IV Diflucan Current Medications Medications (Trade) Dose Ordered Sig/Anna Route Start Time Stop Time Status Last Admin (Morphine Inj) 2 mg Q4H PRN IV PUSH 12/15/17 23:15 12/20/17 17:47 (NS Flush) 2 ml UNSCH PRN IV FLUSH 12/15/17 23:15 (NS Flush) 2 ml BID IV FLUSH 12/16/17 09:00 12/20/17 08:21 (Tylenol) 650 mg Q4H PRN PO 12/15/17 23:15 (Zofran Inj) 4 mg Q6H PRN IVP 12/15/17 23:15 (Narcan Inj) 0.4 mg UNSCH PRN IV PUSH 12/15/17 23:15 (Florence-Colace) 1 tab BID PO 12/16/17 09:00 12/19/17 21:33 (Milk Of Magnesia Liq) 30 ml Q12H PRN PO 12/15/17 23:15 (Senokot) 17.2 mg Q12H PRN PO 12/15/17 23:15 (Dulcolax Supp) 10 mg DAILY PRN RECTAL 12/15/17 23:15 (Lactulose Liq) 30 ml DAILY PRN PO 12/15/17 23:15 (D50w (Vial) Inj) 50 ml UNSCH PRN IV PUSH 12/15/17 23:15 (Glucagon Inj) 1 mg UNSCH PRN OTHER 12/15/17 23:15 (NovoLOG SUPPLEMENTAL SCALE) 1 ACHS SLIDING SCALE SQ 12/16/17 08:00 12/20/17 12:00 (Lasix) 20 mg DAILY PO 12/16/17 09:00 12/20/17 08:21 (Neurontin) 600 mg TID PO 12/16/17 09:00 12/20/17 17:05 (Protonix) 40 mg DAILY PO 12/16/17 09:00 12/20/17 08:21 (Santyl Oint) 1 applic DAILY TOPICAL 12/18/17 09:00 12/20/17 08:22 (Levemir Inj) 10 units BID SQ 12/18/17 21:00 12/20/17 08:21 (Percocet 5-325 Mg) 1 tab Q4H PRN PO 12/20/17 13:15 12/20/17 16:03 Lines PIV with no e/o infection Past Medical History DM II Right foot ulcer with possible osteomyelitis in the past. Has received IV antibiotics long-term using a PICC line in the past. Renal stones (Ami Prado) Allergies: Coded Allergies: No Known Allergies (Unverified Allergy, Unknown, 11/28/17) Uncoded Allergies: honduran dressing (Allergy, Severe, Anaphylaxis, 10/07/17) Objective . Vital Signs Date Time Temp Pulse Resp B/P (MAP) Pulse Ox O2 Delivery O2 Flow Rate FiO2 12/22/17 12:00 99.2 112 18 96/53 (67) 98 12/22/17 08:00 99.8 101 18 127/74 (91) 98 12/22/17 08:00 Room Air 12/22/17 04:00 98.2 96 20 119/72 (88) 99 12/22/17 04:00 Room Air 12/22/17 00:00 98.3 94 20 118/74 (89) 99 12/22/17 00:00 Room Air 12/22/17 00:00 98.3 94 20 118/74 (89) 99 12/21/17 20:00 97.9 93 20 104/64 (77) 99 12/21/17 20:00 Room Air 12/21/17 16:00 97.7 99 20 85/52 (63) 98 . Laboratory Tests Test 12/21/17 07:43 White Blood Count 7.4 TH/MM3 Red Blood Count 3.68 MIL/MM3 Hemoglobin 9.0 GM/DL Hematocrit 27.4 % Mean Corpuscular Volume 74.5 FL Mean Corpuscular Hemoglobin 24.3 PG Mean Corpuscular Hemoglobin Concent 32.6 % Red Cell Distribution Width 18.1 % Platelet Count 440 TH/MM3 Mean Platelet Volume 7.2 FL Neutrophils (%) (Auto) 53.6 % Lymphocytes (%) (Auto) 31.5 % Monocytes (%) (Auto) 7.8 % Eosinophils (%) (Auto) 6.3 % Basophils (%) (Auto) 0.8 % Neutrophils # (Auto) 4.0 TH/MM3 Lymphocytes # (Auto) 2.3 TH/MM3 Monocytes # (Auto) 0.6 TH/MM3 Eosinophils # (Auto) 0.5 TH/MM3 Basophils # (Auto) 0.1 TH/MM3 CBC Comment DIFF FINAL Differential Comment Laboratory Tests Test 12/21/17 07:43 Blood Urea Nitrogen 18 MG/DL Creatinine 0.90 MG/DL Random Glucose 138 MG/DL Calcium Level 9.5 MG/DL Sodium Level 137 MEQ/L Potassium Level 4.4 MEQ/L Chloride Level 100 MEQ/L Carbon Dioxide Level 27.2 MEQ/L Anion Gap 10 MEQ/L Estimat Glomerular Filtration Rate 86 ML/MIN Imaging Last Impressions Foot MRI 12/21/17 0000 Signed Impressions: Service Date/Time: Thursday, December 21, 2017 16:13 - CONCLUSION: 1. Cutaneous ulceration at the lateral mid foot with adjacent severe fourth metatarsal base bony abnormality and cuboid bony abnormality indicating osteomyelitis in the proper clinical setting. 2. Severe, increased bony abnormality about the navicular cuneiform joints, talonavicular joint, and the second and third tarsometatarsal joints. Not immediately contiguous with the cutaneous ulceration. May represent osteomyelitis or worsening neuropathic osteoarthropathy. 3. New severe erosive arthropathy of the second and third metatarsophalangeal joints. Differential diagnosis includes infection/septic arthritis versus other inflammatory arthritis. Cyrus Sears MD Foot X-Ray 12/20/17 0000 Signed Impressions: Service Date/Time: Wednesday, December 20, 2017 17:18 - CONCLUSION: 1. Bone erosions at the second and third metatarsal heads as well as at the base of the third proximal phalanx. Findings are suspicious for osteomyelitis in the proper clinical setting. 2. Nonspecific findings about the tarsometatarsal joints and talonavicular joint. 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 Cyrus Sears MD Physical Exam GENERAL: This is a well-nourished, well-developed male patient, in no apparent distress. Awake and alert. SKIN: No rashes, ecchymoses or lesions. Cool and dry. HEAD: Atraumatic. Normocephalic. No temporal or scalp tenderness. EYES: Pupils equal round and reactive. Extraocular motions intact. No scleral icterus. No injection or drainage. ENT: Nose without bleeding, purulent drainage or septal hematoma. Throat without erythema, tonsillar hypertrophy or exudate. Uvula midline. Airway patent. NECK: Trachea midline. Supple, nontender, no meningeal signs. CARDIOVASCULAR: HS audible. No murmur appreciated. RESPIRATORY: Clear to auscultation. Breath sounds equal bilaterally. No wheezes , rales, or rhonchi. GASTROINTESTINAL: Abdomen soft, non-tender, nondistended. MUSCULOSKELETAL: RLE with gaping wound from prior surgery. Hypergranulation tissue noted plus yellowish purulent looking material as well. Tendon exposed and possibly bone exposed. No surrounding erythema. NEUROLOGICAL: Awake and alert. Able to move all extremities. Non focal exam. Normal speech. Psych cooperative IV line sites with no e.o infection. (Ami Prado) Assessment & Plan Remarks ASSESSMENT: Osteomyelitis partially treated or new infection as bone and tendon was exposed earlier. Patient had refused skin graft last admission. -5/ bone bx positive for acute osteomyelitis -wound cx with no growth -MRI + for osteomyelitis 4th metatarsal and severe, increased bony abnormality about the navicular cuneiform joints, talonavicular joint, and the second and third tarsometatarsal joints possibly representing osteo and new erosive arthropathy of the 2nd and 3rd metatarsophalangeal joints -podiatry following Possible tendinitis. 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 Fevers on Ancef and PCN: drug fever hence treated with Dapto IV which is not first line. Recs Continue on IV Cefazolin (monitor for fever recurrence) and high dose Diflucan - patient will need to monitor LFTs and EKG (for QT prolongation) weekly. EKG reviewed, QTc WNL. Dw podiatry. Plan for skin graft at some point in the future. Likely 4-6 weeks IV antibiotic treatment followed by repeat bone bx. Follow cultures Follow clinically. (Ami Prado) Remarks The exam, history, and the medical decision-making described in the above note were completed with the assistance of the mid-level provider. I reviewed and agree with the findings presented. I attest that I had a [id number] encounter with the patient on the same day, and personally performed and documented my assessment and findings in the medical record. vivek RN: pain medicine seeking behavior. Vivek Benson path findings. Cultures negative. s/p Rx for extended periods of time. She will dw patient option of BKA. (Chuyita Quinteros MD) Ami Prado December 22, 2017 15:29 Chuyita Quinteros MD December 22, 2017 19:35
[2017-12-22 16:00] VITALS: BP 106/59; PULSE 91; RESP 20; TEMP 98.3; O2SAT 97
[2017-12-22 21:56] VITALS: BP 109/65; PULSE 93; RESP 16; TEMP 98.7; O2SAT 98
[2017-12-22] MEDS: FLUCONAZOLE 400 MG PREMIX BAG 400 ML IV SCH (22:09)
--- NOTE | 2017-12-22 23:13 | HHI.PR ---
Subjective Remarks Patient seen bedside. Denies any N,V,F,Ch. No other concerns at this time. Objective Vital Signs Date Time Temp Pulse Resp B/P (MAP) Pulse Ox O2 Delivery O2 Flow Rate FiO2 12/22/17 21:56 98.7 93 16 109/65 (80) 98 12/22/17 16:00 98.3 91 20 106/59 (75) 97 12/22/17 12:00 99.2 112 18 96/53 (67) 98 12/22/17 08:00 99.8 101 18 127/74 (91) 98 12/22/17 08:00 Room Air 12/22/17 04:00 98.2 96 20 119/72 (88) 99 12/22/17 04:00 Room Air 12/22/17 00:00 98.3 94 20 118/74 (89) 99 12/22/17 00:00 Room Air 12/22/17 00:00 98.3 94 20 118/74 (89) 99 I/O 12/22/17 12/22/17 12/22/17 12/23/17 12/23/17 12/23/17 07:00 15:00 23:00 07:00 15:00 23:00 Intake Total 800 ml 50 ml 720 ml Output Total 2000 ml 950 ml Balance -1200 ml 50 ml -230 ml Intake Oral 800 ml 720 ml IV Total 50 ml Output Urine Total 2000 ml 950 ml # Bowel Movements 1 Result Diagram: 12/21/17 0743 12/21/17 0743 Imaging Last Impressions Foot MRI 12/21/17 0000 Signed Impressions: Service Date/Time: Thursday, December 21, 2017 16:13 - CONCLUSION: 1. Cutaneous ulceration at the lateral mid foot with adjacent severe fourth metatarsal base bony abnormality and cuboid bony abnormality indicating osteomyelitis in the proper clinical setting. 2. Severe, increased bony abnormality about the navicular cuneiform joints, talonavicular joint, and the second and third tarsometatarsal joints. Not immediately contiguous with the cutaneous ulceration. May represent osteomyelitis or worsening neuropathic osteoarthropathy. 3. New severe erosive arthropathy of the second and third metatarsophalangeal joints. Differential diagnosis includes infection/septic arthritis versus other inflammatory arthritis. Cyrus Sears MD Foot X-Ray 12/20/17 0000 Signed Impressions: Service Date/Time: Wednesday, December 20, 2017 17:18 - CONCLUSION: 1. Bone erosions at the second and third metatarsal heads as well as at the base of the third proximal phalanx. Findings are suspicious for osteomyelitis in the proper clinical setting. 2. Nonspecific findings about the tarsometatarsal joints and talonavicular joint. 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 Cyrus Sears MD Other Results Microbiology Date/Time Source Procedure Growth Status 12/15/17 19:55 Blood Peripheral Aerobic Blood Culture - Final NO GROWTH IN 5 DAYS Complete 12/15/17 19:55 Blood Peripheral Anaerobic Blood Culture - Final NO GROWTH IN 5 DAYS Complete 12/17/17 15:45 Wound Foot Fungal Smear - Final NO FUNGAL ELEMENTS SEEN. Resulted 12/17/17 15:45 Wound Foot Fungal Culture Pending Resulted Objective Remarks Lower extremity physical exam: Vascular: Dorsalis pedis diminished, posterior tibial diminished. Capillary refill time within normal limits to digits 4 to the right foot. Edema present right foot. Neuro: Gross sensation intact to bilateral lower extremity. Pinpoint sensation decreased. No hyperalgesia noted to bilateral lower extremity Dermatology: Normal temperature and turgor to bilateral lower extremity. Right lateral foot wound with exposed tendon and exposed bone serous drainage noted, improvement noted from last hospitalization. No surrounding erythema noted. Eschar noted to right fourth digit. Musculoskeletal: Tender to palpation to right foot area of ulceration. Medications and IVs Current Medications Medications (Trade) Dose Ordered Sig/Anna Route Start Time Stop Time Status Last Admin (Morphine Inj) 2 mg Q4H PRN IV PUSH 12/15/17 23:15 12/22/17 19:28 (NS Flush) 2 ml UNSCH PRN IV FLUSH 12/15/17 23:15 (NS Flush) 2 ml BID IV FLUSH 12/16/17 09:00 12/22/17 21:27 (Tylenol) 650 mg Q4H PRN PO 12/15/17 23:15 (Zofran Inj) 4 mg Q6H PRN IVP 12/15/17 23:15 (Narcan Inj) 0.4 mg UNSCH PRN IV PUSH 12/15/17 23:15 (Florence-Colace) 1 tab BID PO 12/16/17 09:00 12/21/17 20:00 (Milk Of Magnesia Liq) 30 ml Q12H PRN PO 12/15/17 23:15 (Senokot) 17.2 mg Q12H PRN PO 12/15/17 23:15 (Dulcolax Supp) 10 mg DAILY PRN RECTAL 12/15/17 23:15 (Lactulose Liq) 30 ml DAILY PRN PO 12/15/17 23:15 (D50w (Vial) Inj) 50 ml UNSCH PRN IV PUSH 12/15/17 23:15 (Glucagon Inj) 1 mg UNSCH PRN OTHER 12/15/17 23:15 (NovoLOG SUPPLEMENTAL SCALE) 1 ACHS SLIDING SCALE SQ 12/16/17 08:00 12/22/17 17:00 (Lasix) 20 mg DAILY PO 12/16/17 09:00 12/22/17 08:12 (Neurontin) 600 mg TID PO 12/16/17 09:00 12/22/17 17:52 (Protonix) 40 mg DAILY PO 12/16/17 09:00 12/22/17 08:12 (Santyl Oint) 1 applic DAILY TOPICAL 12/18/17 09:00 12/22/17 08:14 (Levemir Inj) 10 units BID SQ 12/18/17 21:00 12/22/17 21:30 (Percocet 5-325 Mg) 1 tab Q4H PRN PO 12/20/17 13:15 12/22/17 21:28 Cefazolin Sodium/ Dextrose 50 ml @ 100 mls/hr Q8H IV 12/20/17 22:00 12/22/17 21:33 Fluconazole/ Sodium Chloride 400 ml @ 100 mls/hr Q24H IV 12/20/17 23:00 12/22/17 22:09 Assessment and Plan Assessment and Plan 57-year-old male status post right foot incision and drainage with entire 5th ray amputation and excision of peroneals, completed course of 8 weeks of IV antibiotics Patient examined and evaluated with all questions answered Discussed with infectious disease Discussed options moving forward with patient including possible BKA due to extent of OM Patient states he wants a functioning limb Without entire lateral column and peroneals which have been resected secondary to infection patient would have significant deformity with high likelihood of non functioning limb Will continue limb salvage at this point - continue with daily dressing changes - consult placed to wound care Vascular consult placed to discuss BKA with patient Raquel Hobbs DPM December 22, 2017 23:12
[2017-12-23] VITALS: BP 106/60; PULSE 89; RESP 15; TEMP 98.2; O2SAT 97
[2017-12-23] MEDS: oxyCODONE/ACETAMINOPHEN 5 MG/325 MG TAB PO PRN ×5 (01:59→20:22)
[2017-12-23 04:00] VITALS: BP 112/60; PULSE 97; RESP 15; TEMP 98.9; O2SAT 98
[2017-12-23] MEDS: ceFAZolin 2 GM PREMIX 50 ML IV SCH ×3 (05:38→20:22)
[2017-12-23] MEDS: MORPHINE SULFATE 4 MG/ML INJ IV PUSH PRN ×5 (05:39→22:28)
[2017-12-23] MEDS: INSULIN ASPART SUPPLEMENTAL SCALE SQ SCH ×4 (07:37→20:23)
[2017-12-23 08:15] VITALS: BP 114/60; PULSE 102; RESP 18; TEMP 99.1; O2SAT 96
[2017-12-23] MEDS: FUROSEMIDE 20 MG TAB PO SCH (08:29)
[2017-12-23] MEDS: GABAPENTIN 300 MG CAP PO SCH ×3 (08:29→17:25)
[2017-12-23] MEDS: PANTOPRAZOLE SOD 40 MG DELAYED RELEASE TAB PO SCH (08:29)
[2017-12-23] MEDS: SODIUM CHLORIDE 0.9% FLUSH 10 ML FLUSH IV FLUSH SCH ×2 (08:30→20:23)
[2017-12-23] MEDS: INSULIN DETEMIR 100 UNITS/ML VIAL SQ SCH ×2 (08:30→20:23)
[2017-12-23] MEDS: COLLAGENASE OINT 30 GM TUBE TOPICAL SCH (08:30)
[2017-12-23] MEDS: DOCUSATE SODIUM 50 MG/SENNA 8.6 MG TAB PO SCH ×2 (08:30→20:23)
[2017-12-23 12:05] VITALS: BP 135/79; PULSE 115; RESP 18; TEMP 99.6; O2SAT 99
--- NOTE | 2017-12-23 14:54 | PD.CAR.PN ---
CVT Progress Note Subjective/Hospital Course: 57-year-old male with chronic osteomyelitis of the right foot underwent several procedures by podiatry and at this point incision is actually healed very nicely and technically this is an excellent outcome. Unfortunately patient has osteomyelitis deep inside the foot confirmed by bone biopsy and radiologic studies Patient has now undergone several courses of antibiotics since last year, one of those lasting for 11 weeks and still to no avail. This will allow the patient to be mobile get out of bed and return to normal social and physical functions right now is that this patient is bedridden. Foot is not functional and antibiotics are not helping anymore. In absence of amputation patient will end up with a complication from either antibiotics or bacteremia including endocarditis pseudomembranous colitis liver and renal failure or combination of the above potentially. In the and patient will succumb to all this. Based on all of the above there is no other way to successfully take care of this but go ahead with below-knee amputation. I discussed this at length with patient and his and they both agree to go ahead. Patient will undergo right below-knee amputation tomorrow. Objective: Vital Signs Date Time Temp Pulse Resp B/P (MAP) Pulse Ox O2 Delivery O2 Flow Rate FiO2 12/23/17 12:05 99.6 115 18 135/79 (97) 99 12/23/17 08:15 99.1 102 18 114/60 (78) 96 12/23/17 07:00 Room Air 12/23/17 04:00 Room Air 12/23/17 04:00 98.9 97 15 112/60 (77) 98 12/23/17 00:00 Room Air 12/23/17 00:00 98.2 89 15 106/60 (75) 97 12/22/17 21:56 98.7 93 16 109/65 (80) 98 12/22/17 20:00 Room Air 12/22/17 16:00 98.3 91 20 106/59 (75) 97 Result Diagram: 12/21/17 0743 12/21/17 0743 Kenzie Sanchez MD December 23, 2017 14:54
[2017-12-23 15:50] VITALS: BP 131/58; PULSE 106; RESP 20; TEMP 100.4; O2SAT 97
--- NOTE | 2017-12-23 15:56 | PD.WCN.NOT ---
Wound Consult Description: Consult for WOUND MANAGEMENT of Right lateral foot per Dr Hobbs Communicated with: MESERET Holman Recommendation: Nursing staff to change dressing as ordered by Dr Hobbs daily. 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 Additional Information: Spoke with MESERET Holman who completed dressing change as ordered prior to service writer arrival. Explained to RN that wound care does not perform routine daily dressing changes. Please contact Dr Hobbs regarding any issues or concerns with current orders. Arely Bennett [facility] December 23, 2017 15:56
--- NOTE | 2017-12-23 16:18 | HHI.PR ---
Subjective Remarks Follow up osteomyelitis. Pain is well controlled. Patient is considering his options regarding BKA. Objective Vitals Vital Signs Date Time Temp Pulse Resp B/P (MAP) Pulse Ox O2 Delivery O2 Flow Rate FiO2 12/23/17 15:50 100.4 106 20 131/58 (82) 97 12/23/17 12:05 99.6 115 18 135/79 (97) 99 12/23/17 08:15 99.1 102 18 114/60 (78) 96 12/23/17 07:00 Room Air 12/23/17 04:00 Room Air 12/23/17 04:00 98.9 97 15 112/60 (77) 98 12/23/17 00:00 Room Air 12/23/17 00:00 98.2 89 15 106/60 (75) 97 12/22/17 21:56 98.7 93 16 109/65 (80) 98 12/22/17 20:00 Room Air I/O 12/22/17 12/22/17 12/22/17 12/23/17 12/23/17 12/23/17 07:00 15:00 23:00 07:00 15:00 23:00 Intake Total 800 ml 50 ml 720 ml 650 ml Output Total 2000 ml 950 ml 600 ml Balance -1200 ml 50 ml -230 ml 50 ml Intake Oral 800 ml 720 ml 650 ml IV Total 50 ml Output Urine Total 2000 ml 950 ml 600 ml # Bowel Movements 1 Result Diagram: 12/21/17 0743 12/21/17 0743 Imaging Last Impressions Foot MRI 12/21/17 0000 Signed Impressions: Service Date/Time: Thursday, December 21, 2017 16:13 - CONCLUSION: 1. Cutaneous ulceration at the lateral mid foot with adjacent severe fourth metatarsal base bony abnormality and cuboid bony abnormality indicating osteomyelitis in the proper clinical setting. 2. Severe, increased bony abnormality about the navicular cuneiform joints, talonavicular joint, and the second and third tarsometatarsal joints. Not immediately contiguous with the cutaneous ulceration. May represent osteomyelitis or worsening neuropathic osteoarthropathy. 3. New severe erosive arthropathy of the second and third metatarsophalangeal joints. Differential diagnosis includes infection/septic arthritis versus other inflammatory arthritis. Cyrus Sears MD Foot X-Ray 12/20/17 0000 Signed Impressions: Service Date/Time: Wednesday, December 20, 2017 17:18 - CONCLUSION: 1. Bone erosions at the second and third metatarsal heads as well as at the base of the third proximal phalanx. Findings are suspicious for osteomyelitis in the proper clinical setting. 2. Nonspecific findings about the tarsometatarsal joints and talonavicular joint. 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 Cyrus Sears MD Objective Remarks General: No acute distress. Heart: Regular rate and rhythm. No murmur. Lungs: Clear to auscultation bilaterally. No wheezes, rales, or rhonchi. Breathing is nonlabored. Abdomen: Soft, nontender, nondistended. Extremities: No lower extremity edema. Psych: Sleeping, but awakens easily and answers questions appropriately. Neuro: Normal speech. No focal deficits noted. Skin: Right foot wound unchanged. Procedures 12/17/17 bone biopsy, right foot Urinary Catheter: No Vascular Central Line Catheter: No A/P Assessment and Plan 12/23/17: Continue IV antibiotics for osteomyelitis. Appreciate podiatry, infectious disease, vascular surgery recommendations. Discussed with Dr. Quinteros. Podiatry and vascular surgery are recommending BKA. Patient is considering the procedure. We need to ensure that he can obtain prosthesis and PT following surgery. 1. Osteomyelitis, right foot: Appreciate podiatry recommendations. Status post bone biopsy. Pathology shows osteomyelitis. Appreciate infectious disease recommendations. Will likely need further surgery. Continue IV antibiotics. 2. Diabetes mellitus: Continue Levemir. Continue sliding scale insulin coverage. 3. Anemia: S/P GI workup during last hospitalization (showed gastritis, hemorrhoids). H&H improved. Continue PPI. 4. DVT prophylaxis: SCDs. Siddharth Lane MD December 23, 2017 16:18
--- NOTE | 2017-12-23 18:36 | HHI.IDPN ---
Subjective Subjective Remarks Patient seen and examined with Dr. Quinteros Mr. Braxton is a 57-year-old male with past medical history significant for diabetes type 2, prior diabetic foot ulcer treated in October 2016 thereafter was hospitalized from May 08, 2017 to May 29, 2017 due to foot ulcer. During that hospitalization patient underwent surgical debridement with wound VAC placement. Patient reports that he was seen by Dr. Pritchard during that admission. Patient reports that he was discharged on IV ceftriaxone using a PICC line. Patient had home health care visits him and continue to receive wound VAC changes at home. He also was subsequently seen at wound care clinic for ongoing wound care as well as [facility] for his primary care needs. Patient reports that his medications were recently adjusted and a new insulin was introduced. Patient reports that he was diagnosed with a possible staph or strep infection and has been on oral Bactrim approximately 2 weeks prior to admission. Due to worsening foot infection as well as possible reaction to the new insulin patient presented to the emergency department [facility]. Patient reports that he was having fevers, chills, loss of appetite and diarrhea for the past 2 days associated with frequent urination. Patient denies any dysuria. He reports dizziness and reported history of falls 3 days ago while on the toilet. Patient's reports that she was unaware of this history of fall. He denies any head injury. Patient reports hitting his right foot and shoulder but that he was able to get off the floor by himself. Patient had a sepsis workup initiated on admission. Wound cultures are positive for strep as well as blood cultures are now positive for gram-positive likely strep. Repeat blood cultures have been ordered. Podiatry is seeing the patient and there is a plan for surgical intervention and possible amputation of the involved digit. Infectious disease is consulted for evaluation and management of right fifth toe osteomyelitis with associated cellulitis, gram-positive bacteremia and sepsis. Overnight events noted Notes reviewed no fever no rash no N/V no diarrhea afebrile WBC WNL s/p bone bx showing acute osteomyelitis Wound cx with no growth BCX with no growth MRI + for osteomyelitis 4th metatarsal and severe, increased bony abnormality about the navicular cuneiform joints, talonavicular joint, and the second and third tarsometatarsal joints possibly representing osteo and new erosive arthropathy of the 2nd and 3rd metatarsophalangeal joints Antibiotics IV Cefazolin IV Diflucan Current Medications Medications (Trade) Dose Ordered Sig/Anna Route Start Time Stop Time Status Last Admin (Morphine Inj) 2 mg Q4H PRN IV PUSH 12/15/17 23:15 12/20/17 17:47 (NS Flush) 2 ml UNSCH PRN IV FLUSH 12/15/17 23:15 (NS Flush) 2 ml BID IV FLUSH 12/16/17 09:00 12/20/17 08:21 (Tylenol) 650 mg Q4H PRN PO 12/15/17 23:15 (Zofran Inj) 4 mg Q6H PRN IVP 12/15/17 23:15 (Narcan Inj) 0.4 mg UNSCH PRN IV PUSH 12/15/17 23:15 (Florence-Colace) 1 tab BID PO 12/16/17 09:00 12/19/17 21:33 (Milk Of Magnesia Liq) 30 ml Q12H PRN PO 12/15/17 23:15 (Senokot) 17.2 mg Q12H PRN PO 12/15/17 23:15 (Dulcolax Supp) 10 mg DAILY PRN RECTAL 12/15/17 23:15 (Lactulose Liq) 30 ml DAILY PRN PO 12/15/17 23:15 (D50w (Vial) Inj) 50 ml UNSCH PRN IV PUSH 12/15/17 23:15 (Glucagon Inj) 1 mg UNSCH PRN OTHER 12/15/17 23:15 (NovoLOG SUPPLEMENTAL SCALE) 1 ACHS SLIDING SCALE SQ 12/16/17 08:00 12/20/17 12:00 (Lasix) 20 mg DAILY PO 12/16/17 09:00 12/20/17 08:21 (Neurontin) 600 mg TID PO 12/16/17 09:00 12/20/17 17:05 (Protonix) 40 mg DAILY PO 12/16/17 09:00 12/20/17 08:21 (Santyl Oint) 1 applic DAILY TOPICAL 12/18/17 09:00 12/20/17 08:22 (Levemir Inj) 10 units BID SQ 12/18/17 21:00 12/20/17 08:21 (Percocet 5-325 Mg) 1 tab Q4H PRN PO 12/20/17 13:15 12/20/17 16:03 Lines PIV with no e/o infection Past Medical History DM II Right foot ulcer with possible osteomyelitis in the past. Has received IV antibiotics long-term using a PICC line in the past. Renal stones Allergies: Coded Allergies: No Known Allergies (Unverified Allergy, Unknown, 11/28/17) Uncoded Allergies: burundian dressing (Allergy, Severe, Anaphylaxis, 10/07/17) Objective . Vital Signs Date Time Temp Pulse Resp B/P (MAP) Pulse Ox O2 Delivery O2 Flow Rate FiO2 12/23/17 15:50 100.4 106 20 131/58 (82) 97 12/23/17 12:05 99.6 115 18 135/79 (97) 99 12/23/17 08:15 99.1 102 18 114/60 (78) 96 12/23/17 07:00 Room Air 12/23/17 04:00 Room Air 12/23/17 04:00 98.9 97 15 112/60 (77) 98 12/23/17 00:00 Room Air 12/23/17 00:00 98.2 89 15 106/60 (75) 97 12/22/17 21:56 98.7 93 16 109/65 (80) 98 12/22/17 20:00 Room Air 12/23/17 12/23/17 12/24/17 15:00 23:00 07:00 Intake Total 960 ml Output Total 700 ml Balance 260 ml Intake Oral 960 ml Output Urine Total 700 ml Imaging Last Impressions Foot MRI 12/21/17 0000 Signed Impressions: Service Date/Time: Thursday, December 21, 2017 16:13 - CONCLUSION: 1. Cutaneous ulceration at the lateral mid foot with adjacent severe fourth metatarsal base bony abnormality and cuboid bony abnormality indicating osteomyelitis in the proper clinical setting. 2. Severe, increased bony abnormality about the navicular cuneiform joints, talonavicular joint, and the second and third tarsometatarsal joints. Not immediately contiguous with the cutaneous ulceration. May represent osteomyelitis or worsening neuropathic osteoarthropathy. 3. New severe erosive arthropathy of the second and third metatarsophalangeal joints. Differential diagnosis includes infection/septic arthritis versus other inflammatory arthritis. Cyrus Sears MD Foot X-Ray 12/20/17 0000 Signed Impressions: Service Date/Time: Wednesday, December 20, 2017 17:18 - CONCLUSION: 1. Bone erosions at the second and third metatarsal heads as well as at the base of the third proximal phalanx. Findings are suspicious for osteomyelitis in the proper clinical setting. 2. Nonspecific findings about the tarsometatarsal joints and talonavicular joint. 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 Cyrus Sears MD Physical Exam GENERAL: This is a well-nourished, well-developed male patient, in no apparent distress. Awake and alert. SKIN: No rashes, ecchymoses or lesions. Cool and dry. HEAD: Atraumatic. Normocephalic. No temporal or scalp tenderness. EYES: Pupils equal round and reactive. Extraocular motions intact. No scleral icterus. No injection or drainage. ENT: Nose without bleeding, purulent drainage or septal hematoma. Throat without erythema, tonsillar hypertrophy or exudate. Uvula midline. Airway patent. NECK: Trachea midline. Supple, nontender, no meningeal signs. CARDIOVASCULAR: HS audible. No murmur appreciated. RESPIRATORY: Clear to auscultation. Breath sounds equal bilaterally. No wheezes , rales, or rhonchi. GASTROINTESTINAL: Abdomen soft, non-tender, nondistended. MUSCULOSKELETAL: RLE with gaping wound from prior surgery. Hypergranulation tissue noted plus yellowish purulent looking material as well. Tendon exposed and possibly bone exposed. No surrounding erythema. NEUROLOGICAL: Awake and alert. Able to move all extremities. Non focal exam. Normal speech. Psych cooperative IV line sites with no e.o infection. Assessment & Plan Remarks Rt foor osteomyelitis partially treated or new infection as bone and tendon was exposed earlier. Patient had refused skin graft last admission. New biopsy with osteomyelitis again and cultures negative. On Empiric Ancef IV and Diflucan. Possible tendinitis. C.albicans wound infection vs overgrowth MSSA septic arthritis in past. Recs Continue Ancef IV Continue Diflucan IV vivek Benson who informs me vascular surgery is consulted as podiatry team feels patient needs BKA Dw who dw patient about BKA, prosthetics and risks associated with prolonged course of antibiotics including resistance, Cdiff and risk of endocarditis. Patient informs me he wants to dw his spouse (they are but still ) and will make decision in next day or so. Dw manager [employer] to look into prosthetics and placement/rehab given patients social conditions and self pay status. vivek Whitney about above conversations re: BKA and prosthetics. Patient will make determination of proceeding with BKA based on dw , whether he will be eligible for rehab and prosthetics. Follow cultures Follow clinically. to cover for me 12/24 - 12/26 and regional extension service specialist ANNALISE ADAMS for the weekend. Chuyita Quinteros MD December 23, 2017 18:36
[2017-12-23 20:00] VITALS: BP 115/58; PULSE 104; RESP 17; TEMP 99.5; O2SAT 96
[2017-12-23] MEDS: FLUCONAZOLE 400 MG PREMIX BAG 400 ML IV SCH (22:27)
[2017-12-24] VITALS: BP 131/66; PULSE 102; RESP 20; O2SAT 98
[2017-12-24] MEDS: oxyCODONE/ACETAMINOPHEN 5 MG/325 MG TAB PO PRN ×5 (00:33→22:43)
[2017-12-24] MEDS ORDERED: CHLORHEXIDINE GLUCONATE 2 % 1 PACK (2 CLOTHS) TOPICAL PRN (02:00)
[2017-12-24] MEDS ORDERED: POVIDONE IODINE 5% (ANTISEPSIS KIT) 4 APPLICATIONS EACH NARE PRN (02:00)
[2017-12-24] MEDS ORDERED: LACTATED RINGER'S 1000 ML IV PRN (02:00)
[2017-12-24] MEDS ORDERED: SODIUM CHLORID 0.9% 500 ML IV PRN (02:00)
[2017-12-24] MEDS: MORPHINE SULFATE 4 MG/ML INJ IV PUSH PRN ×4 (02:34→20:48)
[2017-12-24 04:00] VITALS: BP 123/57; PULSE 93; RESP 16; TEMP 98.4; O2SAT 96
[2017-12-24] MEDS: ceFAZolin 2 GM PREMIX 50 ML IV SCH ×3 (04:58→22:40)
[2017-12-24] MEDS: INSULIN ASPART SUPPLEMENTAL SCALE SQ SCH ×4 (08:00→22:48)
[2017-12-24 08:03] VITALS: BP 122/58; PULSE 83; RESP 17; TEMP 97.5; O2SAT 100
[2017-12-24] MEDS: GABAPENTIN 300 MG CAP PO SCH ×3 (08:58→18:32)
[2017-12-24] MEDS: FUROSEMIDE 20 MG TAB PO SCH (08:58)
[2017-12-24] MEDS: DOCUSATE SODIUM 50 MG/SENNA 8.6 MG TAB PO SCH ×2 (08:58→21:00)
[2017-12-24] MEDS: PANTOPRAZOLE SOD 40 MG DELAYED RELEASE TAB PO SCH (08:58)
[2017-12-24] MEDS: SODIUM CHLORIDE 0.9% FLUSH 10 ML FLUSH IV FLUSH SCH ×2 (08:59→22:46)
[2017-12-24] MEDS: INSULIN DETEMIR 100 UNITS/ML VIAL SQ SCH ×2 (08:59→22:47)
[2017-12-24] MEDS: COLLAGENASE OINT 30 GM TUBE TOPICAL SCH (09:00)
[2017-12-24] MEDS ORDERED: PHENYLEPH/NS 1000 MCG/10 ML SYR IV ONE (12:00)
[2017-12-24] MEDS ORDERED: GLYCOPYRROLATE 1 MG/5 ML SYRINGE IV PUSH ONE (12:00)
[2017-12-24] MEDS ORDERED: ROCURONIUM INJ 50 MG/5 ML SYRINGE IV PUSH ONE (12:00)
[2017-12-24] MEDS ORDERED: ONDANSETRON HCL 4 MG/2 ML VIAL IV PUSH ONE (12:00)
[2017-12-24] MEDS ORDERED: ePHEDrine/NS 25 MG/5 ML SYRINGE IV ONE (12:00)
[2017-12-24] MEDS ORDERED: PROPOFOL 200 MG/20 ML AMP IV ONE (12:00)
[2017-12-24] MEDS ORDERED: LACTATED RINGER'S 1000 ML INJ 1,000 ML IV ONE (12:00)
[2017-12-24] MEDS ORDERED: DEXAMETHASONE SOD PHOS 4 MG/ML VIAL IV ONE (12:00)
[2017-12-24] MEDS ORDERED: LIDOCAINE HCL 1% PF 5 ML SYRINGE OTHER ONE (12:00)
[2017-12-24] MEDS ORDERED: NEOSTIGMINE 5 MG/5 ML SYRINGE IV PUSH ONE (12:00)
[2017-12-24] MEDS ORDERED: ACETAMINOPHEN 1000 MG/100 ML 100 ML IV ONE (15:25)
[2017-12-24 16:03] VITALS: BP 124/60; PULSE 80; RESP 17; TEMP 97.8; O2SAT 100
[2017-12-24] MEDS ORDERED: DO NOT ADM ANY ANTICOAGULANT DRUGS PRN (16:16)
[2017-12-24] MEDS ORDERED: MIDAZOLAM HCL 2 MG/2 ML VIAL ONE (16:21)
[2017-12-24] MEDS ORDERED: MEPERIDINE HCL 25 MG/ML VIAL ONE (16:25)
[2017-12-24] MEDS ORDERED: *morphine SULFATE 10 MG/ML PERIprocedure ONLY ONE (16:41)
--- NOTE | 2017-12-24 16:48 | HHI.PR ---
Subjective Remarks RN denies any deteriorations since last night. Pt has not been back to the medical floor since 11 AM on my initial attempt to visit patient. Still in PACU at this time. Objective Vital Signs Date Time Temp Pulse Resp B/P (MAP) Pulse Ox O2 Delivery O2 Flow Rate FiO2 12/24/17 16:13 97.6 91 20 134/66 (88) 100 Nasal Cannula 2 12/24/17 08:03 97.5 83 17 122/58 (79) 100 12/24/17 07:00 Room Air 12/24/17 04:00 98.4 93 16 123/57 (79) 96 12/24/17 03:58 Room Air 12/24/17 00:00 102 20 131/66 (87) 98 12/24/17 00:00 Room Air 12/23/17 20:00 Room Air 12/23/17 20:00 99.5 104 17 115/58 (77) 96 I/O 12/23/17 12/23/17 12/23/17 12/24/17 12/24/17 12/24/17 07:00 15:00 23:00 07:00 15:00 23:00 Intake Total 650 ml 50 ml 1010 ml 600 ml 1100 ml Output Total 600 ml 700 ml 1000 ml 200 ml 100 ml Balance 50 ml 50 ml 310 ml -400 ml -200 ml 1000 ml Intake Oral 650 ml 960 ml 600 ml IV Total 50 ml 50 ml Other 1100 ml Output Urine Total 600 ml 700 ml 1000 ml 200 ml Estimated Blood Loss 100 ml Result Diagram: 12/21/17 0743 12/21/17 0743 Objective Remarks right leg s/p BKA POD 0 lying in bed, distress 2/2 pain heart sounds RRR, no murmurs A/P Discharge Planning 1. Osteomyelitis, right foot: Appreciate podiatry recommendations. Status post bone biopsy. Pathology shows osteomyelitis. Appreciate infectious disease recommendations. Continue IV antibiotics. s/p right BKA POD 0. 2. Diabetes mellitus: Continue Levemir. Continue sliding scale insulin coverage. 3. Anemia: S/P GI workup during last hospitalization (showed gastritis, hemorrhoids). H&H stable. Continue PPI. rechecking AM given now postop. 4. DVT prophylaxis: SCDs. Jared Robledo MD December 24, 2017 16:48
--- NOTE | 2017-12-24 19:25 | MP ---
cc: Kenzie Sanchez MD DATE OF OPERATION: 12/24/2017 PREOPERATIVE DIAGNOSES: Chronic osteomyelitis of the right foot, atrophy of both legs, sepsis, diabetes mellitus. POSTOPERATIVE DIAGNOSES: Chronic osteomyelitis of the right foot, atrophy of both legs, sepsis, diabetes mellitus. OPERATIVE PROCEDURE: Right below knee amputation. SURGEON: Kenzie Sanchez MD ANESTHESIA: General. ESTIMATED BLOOD LOSS: 50 mL. DESCRIPTION OF PROCEDURE: The patient prepped and draped in the usual fashion and incision site is marked with silk string indentation and then with a #10 blade, incision was carried out anteriorly over the tibia, laterally carried down into the posterior flap and posteriorly completed. The incision was deepened with cautery medially and laterally, medially down to the tibia and laterally down to the fibula. The anterior tibial artery and veins I clamped with hemostats, divided and ligated with #0 Vicryl stick ties. Tibia and fibula are then freed up using periosteal elevator and then the above-knee tourniquet was inflated. Tibia and fibula are now transected with oscillating saw and the posterior flap created with amputation knife and specimen removed. The vascular bundle is tied with 0 Vicryl [id number] stick ties, while the anterior tibial nerve and the sciatic nerve were allowed to retract. The area irrigated with copious amounts of saline. Some more small bleeders are controlled with cautery and then the flap was turned anteriorly. Before closing the incision, the tibia is cut under an oblique angle and then rasped down. The incisions are closed in deep layer to deep layer with 0 Vicryl, superficial layer to superficial fascia with 0 Vicryl and skin with 2-0 Prolene interrupted stitches. Dressing applied. The patient tolerated the procedure well. MD WOLFGANG Pearl/JULIENNE , 06:49 PM , 07:24 PM
[2017-12-24 20:00] VITALS: BP 125/75; PULSE 97; RESP 18; TEMP 98.3; O2SAT 97
[2017-12-24] MEDS: FLUCONAZOLE 400 MG PREMIX BAG 400 ML IV SCH (23:34)
[2017-12-25] VITALS: BP 131/77; PULSE 93; RESP 18; TEMP 98.4; O2SAT 99
[2017-12-25] MEDS: MORPHINE SULFATE 4 MG/ML INJ IV PUSH PRN ×5 (01:10→19:58)
[2017-12-25] MEDS: oxyCODONE/ACETAMINOPHEN 5 MG/325 MG TAB PO PRN ×5 (03:24→21:38)
[2017-12-25 04:00] VITALS: BP 130/80; PULSE 93; RESP 18; TEMP 98.7; O2SAT 98
[2017-12-25] MEDS: ceFAZolin 2 GM PREMIX 50 ML IV SCH ×3 (05:55→21:28)
[2017-12-25 06:24] LABS: AUTOMATED NEUTROPHIL # 8.6 TH/MM3 (1.8-7.7); BASOPHIL % 0.2 % (0.0-2.0); EOSINOPHIL % 0.3 % (0.0-4.0); HEMATOCRIT 22.9 % (39.0-51.0); HEMOGLOBIN 7.5 GM/DL (13.0-17.0); LYMPH % 7.4 % (9.0-44.0); LYMPHOCYTE # 0.7 TH/MM3 (1.0-4.8); MEAN CELL VOLUME 74.5 FL (80.0-100.0); MEAN CORPUSCULAR HEMOGLOBIN 24.2 PG (27.0-34.0); MEAN CORPUSCULAR HGB CONC 32.5 % (32.0-36.0); MEAN PLATELET VOLUME 7.7 FL (7.0-11.0); MONO % 6.4 % (0.0-8.0); MONOCYTE # 0.6 TH/MM3 (0-0.9); NEUT % 85.7 % (16.0-70.0); PLATELET COUNT 349 TH/MM3 (150-450); RED BLOOD COUNT 3.08 MIL/MM3 (4.50-5.90); RED CELL DISTRIBUTION WIDTH 18.6 % (11.6-17.2)
[2017-12-25 08:00] VITALS: BP 131/77; PULSE 90; RESP 16; TEMP 99.5; O2SAT 96
[2017-12-25] MEDS: PANTOPRAZOLE SOD 40 MG DELAYED RELEASE TAB PO SCH (08:48)
[2017-12-25] MEDS: FUROSEMIDE 20 MG TAB PO SCH (08:48)
[2017-12-25] MEDS: SODIUM CHLORIDE 0.9% FLUSH 10 ML FLUSH IV FLUSH SCH ×2 (08:49→20:03)
[2017-12-25] MEDS: GABAPENTIN 300 MG CAP PO SCH ×3 (08:49→17:41)
[2017-12-25] MEDS: DOCUSATE SODIUM 50 MG/SENNA 8.6 MG TAB PO SCH ×2 (08:49→21:28)
[2017-12-25] MEDS: INSULIN DETEMIR 100 UNITS/ML VIAL SQ SCH ×2 (08:50→21:28)
[2017-12-25] MEDS: INSULIN ASPART SUPPLEMENTAL SCALE SQ SCH ×4 (08:50→20:03)
[2017-12-25] MEDS: COLLAGENASE OINT 30 GM TUBE TOPICAL SCH (08:51)
--- NOTE | 2017-12-25 11:25 | HHI.PR ---
Subjective Remarks RN denies any deteriorations since last night except for pain. Patient says the current regimen (Percocet and morphine is not good enough) Objective Vital Signs Date Time Temp Pulse Resp B/P (MAP) Pulse Ox O2 Delivery O2 Flow Rate FiO2 12/25/17 08:05 Nasal Cannula 2.00 12/25/17 08:00 Room Air 12/25/17 08:00 99.5 90 16 131/77 (95) 96 12/25/17 04:00 98.7 93 18 130/80 (97) 98 12/25/17 00:00 98.4 93 18 131/77 (95) 99 12/24/17 20:00 Room Air 12/24/17 20:00 98.3 97 18 125/75 (92) 97 12/24/17 16:45 97.6 93 17 138/67 (90) 100 Nasal Cannula 2 12/24/17 16:30 92 18 135/75 (95) 99 Nasal Cannula 2 12/24/17 16:15 91 20 137/76 (96) 100 Nasal Cannula 2 12/24/17 16:13 97.6 91 20 134/66 (88) 100 Nasal Cannula 2 12/24/17 16:03 97.8 80 17 124/60 (81) 100 I/O 12/24/17 12/24/17 12/24/17 12/25/17 12/25/17 12/25/17 07:00 15:00 23:00 07:00 15:00 23:00 Intake Total 600 ml 1100 ml 1042 ml Output Total 1000 ml 200 ml 400 ml 800 ml Balance -400 ml -200 ml 700 ml 242 ml Intake Oral 600 ml 0 ml 592 ml IV Total 450 ml Other 1100 ml Output Urine Total 1000 ml 200 ml 300 ml 800 ml Estimated Blood Loss 100 ml # Voids 3 # Bowel Movements 1 0 Result Diagram: 12/25/17 0530 12/21/17 0743 Objective Remarks right leg s/p BKA POD 1 stump and postop dressing, is able to partially flex his right hip lying in bed, distress 2/2 pain heart sounds RRR, no murmurs A/P Assessment and Plan 1. Osteomyelitis, right foot: Appreciate podiatry recommendations. Status post bone biopsy. Pathology shows osteomyelitis. Appreciate infectious disease recommendations. Continue IV antibiotics. s/p right BKA POD 1. IV morphine increased, continue oxycodone, monitor resp status. high dose gabapentin. 2. Diabetes mellitus: Continue Levemir. Continue sliding scale insulin coverage. 3. Anemia: S/P GI workup during last hospitalization (showed gastritis, hemorrhoids). H&H stable. Continue PPI. 4. DVT prophylaxis: SCDs. Discharge Planning Anticipate inpatient rehab placement with eventual prosthesis. Jared Robledo MD December 25, 2017 11:25
[2017-12-25 12:00] VITALS: BP 130/66; PULSE 97; RESP 18; TEMP 99.8; O2SAT 96
--- NOTE | 2017-12-25 13:56 | HHI.IDPN ---
Subjective Subjective Remarks ID COVERAGE Mr. Braxton is a 57-year-old male with past medical history significant for diabetes type 2, prior diabetic foot ulcer treated in October 2016 thereafter was hospitalized from May 08, 2017 to May 29, 2017 due to foot ulcer. During that hospitalization patient underwent surgical debridement with wound VAC placement. Patient reports that he was seen by Dr. Pritchard during that admission. Patient reports that he was discharged on IV ceftriaxone using a PICC line. Patient had home health care visits him and continue to receive wound VAC changes at home. He also was subsequently seen at wound care clinic for ongoing wound care as well as [facility] for his primary care needs. Patient reports that his medications were recently adjusted and a new insulin was introduced. Patient reports that he was diagnosed with a possible staph or strep infection and has been on oral Bactrim approximately 2 weeks prior to admission. Due to worsening foot infection as well as possible reaction to the new insulin patient presented to the emergency department [facility]. Patient reports that he was having fevers, chills, loss of appetite and diarrhea for the past 2 days associated with frequent urination. Patient denies any dysuria. He reports dizziness and reported history of falls 3 days ago while on the toilet. Patient's reports that she was unaware of this history of fall. He denies any head injury. Patient reports hitting his right foot and shoulder but that he was able to get off the floor by himself. Patient had a sepsis workup initiated on admission. Wound cultures are positive for strep as well as blood cultures are now positive for gram-positive likely strep. Repeat blood cultures have been ordered. Podiatry is seeing the patient and there is a plan for surgical intervention and possible amputation of the involved digit. Infectious disease is consulted for evaluation and management of right fifth toe osteomyelitis with associated cellulitis, gram-positive bacteremia and sepsis. Notes reviewed Temps ok C/O pain S/P R BKA 12/24 Path pending new C/S pending no rash no N/V no diarrhea WBC WNL ESR >140 s/p bone bx showing acute osteomyelitis Wound cx with no growth BCX with no growth MRI + for osteomyelitis 4th metatarsal and severe, increased bony abnormality about the navicular cuneiform joints, talonavicular joint, and the second and third tarsometatarsal joints possibly representing osteo and new erosive arthropathy of the 2nd and 3rd metatarsophalangeal joints Antibiotics IV Cefazolin IV Diflucan Current Medications Medications (Trade) Dose Ordered Sig/Anna Route Start Time Stop Time Status Last Admin (NS Flush) 2 ml UNSCH PRN IV FLUSH 12/15/17 23:15 (NS Flush) 2 ml BID IV FLUSH 12/16/17 09:00 12/25/17 08:49 (Tylenol) 650 mg Q4H PRN PO 12/15/17 23:15 (Zofran Inj) 4 mg Q6H PRN IVP 12/15/17 23:15 (Narcan Inj) 0.4 mg UNSCH PRN IV PUSH 12/15/17 23:15 (Florence-Colace) 1 tab BID PO 12/16/17 09:00 12/24/17 08:58 (Milk Of Magnesia Liq) 30 ml Q12H PRN PO 12/15/17 23:15 (Senokot) 17.2 mg Q12H PRN PO 12/15/17 23:15 (Dulcolax Supp) 10 mg DAILY PRN RECTAL 12/15/17 23:15 (Lactulose Liq) 30 ml DAILY PRN PO 12/15/17 23:15 (D50w (Vial) Inj) 50 ml UNSCH PRN IV PUSH 12/15/17 23:15 (Glucagon Inj) 1 mg UNSCH PRN OTHER 12/15/17 23:15 (NovoLOG SUPPLEMENTAL SCALE) 1 ACHS SLIDING SCALE SQ 12/16/17 08:00 12/25/17 13:06 (Lasix) 20 mg DAILY PO 12/16/17 09:00 12/25/17 08:48 (Neurontin) 600 mg TID PO 12/16/17 09:00 12/25/17 13:05 (Protonix) 40 mg DAILY PO 12/16/17 09:00 12/25/17 08:48 (Santyl Oint) 1 applic DAILY TOPICAL 12/18/17 09:00 12/23/17 08:30 (Levemir Inj) 10 units BID SQ 12/18/17 21:00 12/25/17 08:50 (Percocet 5-325 Mg) 1 tab Q4H PRN PO 12/20/17 13:15 12/25/17 13:05 Cefazolin Sodium/ Dextrose 50 ml @ 100 mls/hr Q8H IV 12/20/17 22:00 12/25/17 13:06 Fluconazole/ Sodium Chloride 400 ml @ 100 mls/hr Q24H IV 12/20/17 23:00 12/24/17 23:34 Lactated Ringer's 1,000 ml @ 30 mls/hr Q24H PRN IV 12/24/17 02:00 12/27/17 01:59 Sodium Chloride 500 ml @ 30 mls/hr [id number] PRN IV 12/24/17 02:00 12/27/17 01:59 (Betadine 5% Antisepsis Kit) 1 applic F[employer]ER [employer]ER [employer]PERATOR PRN EACH NARE 12/24/17 02:00 12/27/17 01:59 (Chlorhexidine 2% Cloth) 3 pack F[employer]ER DRIER OPERATOR PRN TOPICAL 12/24/17 02:00 12/27/17 01:59 ([facility] Information) ALL NURSING DEPARTME... UNSCH PRN .XX 12/24/17 16:16 12/25/17 16:15 (Morphine Inj) 4 mg Q4HR PRN IV PUSH 12/25/17 12:00 Lines PIV with no e/o infection Past Medical History DM II Right foot ulcer with possible osteomyelitis in the past. Has received IV antibiotics long-term using a PICC line in the past. Renal stones Allergies: Coded Allergies: No Known Allergies (Unverified Allergy, Unknown, 11/28/17) Uncoded Allergies: czech dressing (Allergy, Severe, Anaphylaxis, 10/07/17) Objective . Vital Signs Date Time Temp Pulse Resp B/P (MAP) Pulse Ox O2 Delivery O2 Flow Rate FiO2 12/25/17 08:05 Nasal Cannula 2.00 12/25/17 08:00 Room Air 12/25/17 08:00 99.5 90 16 131/77 (95) 96 12/25/17 04:00 98.7 93 18 130/80 (97) 98 12/25/17 00:00 98.4 93 18 131/77 (95) 99 12/24/17 20:00 Room Air 12/24/17 20:00 98.3 97 18 125/75 (92) 97 12/24/17 16:45 97.6 93 17 138/67 (90) 100 Nasal Cannula 2 12/24/17 16:30 92 18 135/75 (95) 99 Nasal Cannula 2 12/24/17 16:15 91 20 137/76 (96) 100 Nasal Cannula 2 12/24/17 16:13 97.6 91 20 134/66 (88) 100 Nasal Cannula 2 12/24/17 16:03 97.8 80 17 124/60 (81) 100 . Laboratory Tests Test 12/25/17 05:30 White Blood Count 10.0 TH/MM3 Red Blood Count 3.08 MIL/MM3 Hemoglobin 7.5 GM/DL Hematocrit 22.9 % Mean Corpuscular Volume 74.5 FL Mean Corpuscular Hemoglobin 24.2 PG Mean Corpuscular Hemoglobin Concent 32.5 % Red Cell Distribution Width 18.6 % Platelet Count 349 TH/MM3 Mean Platelet Volume 7.7 FL Neutrophils (%) (Auto) 85.7 % Lymphocytes (%) (Auto) 7.4 % Monocytes (%) (Auto) 6.4 % Eosinophils (%) (Auto) 0.3 % Basophils (%) (Auto) 0.2 % Neutrophils # (Auto) 8.6 TH/MM3 Lymphocytes # (Auto) 0.7 TH/MM3 Monocytes # (Auto) 0.6 TH/MM3 Eosinophils # (Auto) 0.0 TH/MM3 Basophils # (Auto) 0.0 TH/MM3 CBC Comment DIFF FINAL Differential Comment Imaging Last Impressions Foot MRI 12/21/17 0000 Signed Impressions: Service Date/Time: Thursday, December 21, 2017 16:13 - CONCLUSION: 1. Cutaneous ulceration at the lateral mid foot with adjacent severe fourth metatarsal base bony abnormality and cuboid bony abnormality indicating osteomyelitis in the proper clinical setting. 2. Severe, increased bony abnormality about the navicular cuneiform joints, talonavicular joint, and the second and third tarsometatarsal joints. Not immediately contiguous with the cutaneous ulceration. May represent osteomyelitis or worsening neuropathic osteoarthropathy. 3. New severe erosive arthropathy of the second and third metatarsophalangeal joints. Differential diagnosis includes infection/septic arthritis versus other inflammatory arthritis. Cyrus Sears MD Foot X-Ray 12/20/17 0000 Signed Impressions: Service Date/Time: Wednesday, December 20, 2017 17:18 - CONCLUSION: 1. Bone erosions at the second and third metatarsal heads as well as at the base of the third proximal phalanx. Findings are suspicious for osteomyelitis in the proper clinical setting. 2. Nonspecific findings about the tarsometatarsal joints and talonavicular joint. 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 Cyrus Sears MD Physical Exam GENERAL: in no apparent distress. Awake and alert. SKIN: No rashes, ecchymoses or lesions. Cool and dry. HEAD: Atraumatic. Normocephalic. No temporal or scalp tenderness. EYES: Pupils equal round and reactive. Extraocular motions intact. No scleral icterus. No injection or drainage. ENT: Nose without bleeding, purulent drainage or septal hematoma. Throat without erythema, tonsillar hypertrophy or exudate. Uvula midline. Airway patent. NECK: Trachea midline. Supple, nontender, no meningeal signs. CARDIOVASCULAR: HS audible. No murmur appreciated. RESPIRATORY: Clear to auscultation. Breath sounds equal bilaterally. No wheezes , rales, or rhonchi. GASTROINTESTINAL: Abdomen soft, non-tender, nondistended. MUSCULOSKELETAL: RBKA stump with intact dressing NEUROLOGICAL: Awake and alert. Able to move all extremities. Non focal exam. Normal speech. Psych cooperative IV line sites with no e.o infection. Assessment & Plan Remarks Rt foor osteomyelitis partially treated or new infection as bone and tendon was exposed earlier. Patient had refused skin graft last admission. New biopsy with osteomyelitis again and cultures negative. On Empiric Ancef IV and Diflucan. Possible tendinitis. C.albicans wound infection vs overgrowth MSSA septic arthritis in past. Recs Continue Ancef IV Continue Diflucan IV Follow new C/S and path report He will not need a long course of IV Abx Marci Bocanegra MD December 25, 2017 13:56
--- NOTE | 2017-12-25 15:41 | PD.CAR.PN ---
CVT Progress Note Subjective/Hospital Course: 57-year-old male with chronic osteomyelitis of the right foot underwent several procedures by podiatry and at this point incision is actually healed very nicely and technically this is an excellent outcome. Unfortunately patient has osteomyelitis deep inside the foot confirmed by bone biopsy and radiologic studies Patient has now undergone several courses of antibiotics since last year, one of those lasting for 11 weeks and still to no avail. This will allow the patient to be mobile get out of bed and return to normal social and physical functions right now is that this patient is bedridden. Foot is not functional and antibiotics are not helping anymore. In absence of amputation patient will end up with a complication from either antibiotics or bacteremia including endocarditis pseudomembranous colitis liver and renal failure or combination of the above potentially. In the and patient will succumb to all this. Based on all of the above there is no other way to successfully take care of this but go ahead with below-knee amputation. I discussed this at length with patient and his and they both agree to go ahead. Patient will undergo right below-knee amputation tomorrow. 12/25/2017 Patient is status post right BKA yesterday Site is clean and dry dressing is intact Pain management as per medicine Will remove original dressing on Friday Nothing to add to care at this time Objective: Vital Signs Date Time Temp Pulse Resp B/P (MAP) Pulse Ox O2 Delivery O2 Flow Rate FiO2 12/25/17 12:00 Nasal Cannula 2.00 12/25/17 12:00 99.8 97 18 130/66 (87) 96 12/25/17 08:05 Nasal Cannula 2.00 12/25/17 08:00 Room Air 12/25/17 08:00 99.5 90 16 131/77 (95) 96 12/25/17 04:00 98.7 93 18 130/80 (97) 98 12/25/17 00:00 98.4 93 18 131/77 (95) 99 12/24/17 20:00 Room Air 12/24/17 20:00 98.3 97 18 125/75 (92) 97 12/24/17 16:45 97.6 93 17 138/67 (90) 100 Nasal Cannula 2 12/24/17 16:30 92 18 135/75 (95) 99 Nasal Cannula 2 12/24/17 16:15 91 20 137/76 (96) 100 Nasal Cannula 2 12/24/17 16:13 97.6 91 20 134/66 (88) 100 Nasal Cannula 2 12/24/17 16:03 97.8 80 17 124/60 (81) 100 Labs: Laboratory Tests Test 12/25/17 05:30 White Blood Count 10.0 TH/MM3 (4.0-11.0) Red Blood Count 3.08 MIL/MM3 (4.50-5.90) Hemoglobin 7.5 GM/DL (13.0-17.0) Hematocrit 22.9 % (39.0-51.0) Mean Corpuscular Volume 74.5 FL (80.0-100.0) Mean Corpuscular Hemoglobin 24.2 PG (27.0-34.0) Mean Corpuscular Hemoglobin Concent 32.5 % (32.0-36.0) Red Cell Distribution Width 18.6 % (11.6-17.2) Platelet Count 349 TH/MM3 (150-450) Mean Platelet Volume 7.7 FL (7.0-11.0) Neutrophils (%) (Auto) 85.7 % (16.0-70.0) Lymphocytes (%) (Auto) 7.4 % (9.0-44.0) Monocytes (%) (Auto) 6.4 % (0.0-8.0) Eosinophils (%) (Auto) 0.3 % (0.0-4.0) Basophils (%) (Auto) 0.2 % (0.0-2.0) Neutrophils # (Auto) 8.6 TH/MM3 (1.8-7.7) Lymphocytes # (Auto) 0.7 TH/MM3 (1.0-4.8) Monocytes # (Auto) 0.6 TH/MM3 (0-0.9) Eosinophils # (Auto) 0.0 TH/MM3 (0-0.4) Basophils # (Auto) 0.0 TH/MM3 (0-0.2) CBC Comment DIFF FINAL Differential Comment Result Diagram: 12/25/17 0530 12/21/17 0743 Kenzie Sanchez MD December 25, 2017 15:41
[2017-12-25 16:00] VITALS: BP 126/75; PULSE 94; RESP 18; TEMP 98.7; O2SAT 97
[2017-12-25 20:00] VITALS: BP 124/75; PULSE 90; RESP 18; TEMP 98.2; O2SAT 99
[2017-12-25] MEDS: FLUCONAZOLE 400 MG PREMIX BAG 400 ML IV SCH (22:01)
[2017-12-26] VITALS: BP 112/61; PULSE 89; RESP 20; TEMP 98.4; O2SAT 98
[2017-12-26] MEDS: MORPHINE SULFATE 4 MG/ML INJ IV PUSH PRN ×6 (00:03→20:12)
[2017-12-26] MEDS: FLUCONAZOLE/NACL 400 MG/200 ML IV SCH ×2 (00:06→23:11)
[2017-12-26] MEDS: oxyCODONE/ACETAMINOPHEN 5 MG/325 MG TAB PO PRN ×6 (02:16→22:21)
[2017-12-26 04:00] VITALS: BP 109/68; PULSE 98; RESP 20; TEMP 98.9; O2SAT 96
[2017-12-26] MEDS: ceFAZolin 2 GM PREMIX 50 ML IV SCH ×3 (05:55→20:11)
[2017-12-26] MEDS: SODIUM CHLORIDE 0.9% FLUSH 10 ML FLUSH IV FLUSH SCH ×2 (07:21→20:44)
[2017-12-26 08:00] VITALS: BP 113/60; PULSE 104; RESP 18; TEMP 98.8; O2SAT 97
[2017-12-26] MEDS: INSULIN ASPART SUPPLEMENTAL SCALE SQ SCH ×4 (08:00→20:10)
[2017-12-26] MEDS: FUROSEMIDE 20 MG TAB PO SCH (08:23)
[2017-12-26] MEDS: PANTOPRAZOLE SOD 40 MG DELAYED RELEASE TAB PO SCH (08:23)
[2017-12-26] MEDS: GABAPENTIN 300 MG CAP PO SCH ×3 (08:23→18:08)
[2017-12-26] MEDS: DOCUSATE SODIUM 50 MG/SENNA 8.6 MG TAB PO SCH ×2 (08:23→20:44)
[2017-12-26] MEDS: COLLAGENASE OINT 30 GM TUBE TOPICAL SCH (08:24)
[2017-12-26] MEDS: INSULIN DETEMIR 100 UNITS/ML VIAL SQ SCH ×2 (08:24→20:10)
[2017-12-26 12:00] VITALS: BP 108/58; PULSE 99; RESP 18; TEMP 99.3; O2SAT 99
--- NOTE | 2017-12-26 12:51 | HHI.PR ---
Subjective Remarks RN denies any deteriorations since last night. Patient says that the increase in morphine 2 mg to 4 mg a significantly improved his pain relief. Is very excited about having more mobility and his right knee after having the dressing changed and reduced by surgery. Objective Vital Signs Date Time Temp Pulse Resp B/P (MAP) Pulse Ox O2 Delivery O2 Flow Rate FiO2 12/26/17 08:00 98.8 104 18 113/60 (77) 97 12/26/17 04:15 18 12/26/17 04:00 98.9 98 20 109/68 (82) 96 12/26/17 03:35 18 12/26/17 00:00 98.4 89 20 112/61 (78) 98 12/25/17 20:00 98.2 90 18 124/75 (91) 99 Manual Cuff/Palpation 12/25/17 16:00 98.7 94 18 126/75 (92) 97 12/25/17 16:00 Nasal Cannula 2.00 I/O 12/25/17 12/25/17 12/25/17 12/26/17 12/26/17 12/26/17 07:00 15:00 23:00 07:00 15:00 23:00 Intake Total 1042 ml 600 ml 640 ml Output Total 800 ml 2050 ml 1000 ml 175 ml Balance 242 ml -1450 ml -360 ml -175 ml Intake Oral 592 ml 600 ml 240 ml IV Total 450 ml 400 ml Output Urine Total 800 ml 2050 ml 1000 ml 175 ml # Voids 1 2 1 # Bowel Movements 0 0 0 0 Result Diagram: 12/25/17 0530 Objective Remarks right leg s/p BKA POD 2 stump with now a distal gauzed postop dressing, is able to partially flex his right hip and his right knee lying in bed, NAD A/P Assessment and Plan 1. Osteomyelitis, right foot: Appreciate podiatry recommendations. Status post bone biopsy. Pathology shows osteomyelitis. Appreciate infectious disease recommendations. Continue IV antibiotics. s/p right BKA POD 2. continue IV morphine, continue oxycodone, monitor resp status. high dose gabapentin. Will consider transitioning to all p.o. narcotics tomorrow if the patient is willing to try that. 2. Diabetes mellitus: Continue Levemir. Continue sliding scale insulin coverage. 3. Anemia: S/P GI workup during last hospitalization (showed gastritis, hemorrhoids). H&H stable. Continue PPI. 4. DVT prophylaxis: SCDs. Discharge Planning Anticipate inpatient rehab placement over the weekend or on Friday with eventual prosthesis. Jared Robledo MD December 26, 2017 12:51
--- NOTE | 2017-12-26 14:28 | PD.CAR.PN ---
CVT Progress Note Subjective/Hospital Course: 57-year-old male with chronic osteomyelitis of the right foot underwent several procedures by podiatry and at this point incision is actually healed very nicely and technically this is an excellent outcome. Unfortunately patient has osteomyelitis deep inside the foot confirmed by bone biopsy and radiologic studies Patient has now undergone several courses of antibiotics since last year, one of those lasting for 11 weeks and still to no avail. This will allow the patient to be mobile get out of bed and return to normal social and physical functions right now is that this patient is bedridden. Foot is not functional and antibiotics are not helping anymore. In absence of amputation patient will end up with a complication from either antibiotics or bacteremia including endocarditis pseudomembranous colitis liver and renal failure or combination of the above potentially. In the and patient will succumb to all this. Based on all of the above there is no other way to successfully take care of this but go ahead with below-knee amputation. I discussed this at length with patient and his and they both agree to go ahead. Patient will undergo right below-knee amputation tomorrow. 12/25/2017 Patient is status post right BKA yesterday Site is clean and dry dressing is intact Pain management as per medicine Will remove original dressing on Friday Nothing to add to care at this time 12/26/2017 Right BKA stump is clean and dry dressing is been removed Patient has been instructed to exercise the knee Will redressed lightly and patient can be discharged to rehab from my point any time Stitches will remain in for about 3 weeks Objective: Vital Signs Date Time Temp Pulse Resp B/P (MAP) Pulse Ox O2 Delivery O2 Flow Rate FiO2 12/26/17 08:00 98.8 104 18 113/60 (77) 97 12/26/17 04:15 18 12/26/17 04:00 98.9 98 20 109/68 (82) 96 12/26/17 03:35 18 12/26/17 00:00 98.4 89 20 112/61 (78) 98 12/25/17 20:00 98.2 90 18 124/75 (91) 99 Manual Cuff/Palpation 12/25/17 16:00 98.7 94 18 126/75 (92) 97 12/25/17 16:00 Nasal Cannula 2.00 Result Diagram: 12/25/17 0530 Kenzie Sanchez MD December 26, 2017 14:28
[2017-12-26 16:00] VITALS: BP 105/58; PULSE 93; RESP 18; TEMP 99.4; O2SAT 98
[2017-12-26 20:00] VITALS: BP 120/62; PULSE 98; RESP 18; TEMP 100; O2SAT 96
[2017-12-26] MEDS: FLUCONAZOLE 400 MG PREMIX BAG 200 ML IV SCH (20:44)
[2017-12-27] VITALS: BP 119/71; PULSE 84; RESP 18; TEMP 97.7; O2SAT 98
[2017-12-27] MEDS: MORPHINE SULFATE 4 MG/ML INJ IV PUSH PRN ×5 (00:22→21:48)
[2017-12-27] MEDS: oxyCODONE/ACETAMINOPHEN 5 MG/325 MG TAB PO PRN ×6 (02:32→23:39)
[2017-12-27 04:00] VITALS: BP 129/64; PULSE 89; RESP 16; TEMP 97.3; O2SAT 96
[2017-12-27] MEDS: ceFAZolin 2 GM PREMIX 50 ML IV SCH ×3 (04:21→21:17)
[2017-12-27 07:25] VITALS: BP 113/60; PULSE 92; RESP 18; TEMP 98.6; O2SAT 98
[2017-12-27] MEDS: SODIUM CHLORIDE 0.9% FLUSH 10 ML FLUSH IV FLUSH SCH ×2 (07:32→21:16)
[2017-12-27] MEDS: PANTOPRAZOLE SOD 40 MG DELAYED RELEASE TAB PO SCH (09:00)
[2017-12-27] MEDS: INSULIN DETEMIR 100 UNITS/ML VIAL SQ SCH ×2 (09:00→21:16)
[2017-12-27] MEDS: FUROSEMIDE 20 MG TAB PO SCH (09:00)
[2017-12-27] MEDS: COLLAGENASE OINT 30 GM TUBE TOPICAL SCH (09:00)
[2017-12-27] MEDS: DOCUSATE SODIUM 50 MG/SENNA 8.6 MG TAB PO SCH ×2 (09:00→21:17)
[2017-12-27] MEDS: GABAPENTIN 300 MG CAP PO SCH ×3 (09:00→17:42)
[2017-12-27] MEDS: INSULIN ASPART SUPPLEMENTAL SCALE SQ SCH ×4 (09:48→21:16)
[2017-12-27 11:40] VITALS: BP 120/68; PULSE 93; RESP 18; TEMP 99.6; O2SAT 97
[2017-12-27 15:25] VITALS: BP 112/61; PULSE 95; RESP 20; TEMP 99.7; O2SAT 98
--- NOTE | 2017-12-27 16:49 | HHI.PR ---
Subjective Remarks Pt complains of pain and ask to be kept on current pain regimen until tomorrow. He is agreeable to decreasing frequency of IV morphine tomorrow. denies any CP/SOB/N/V Objective Vitals Vital Signs Date Time Temp Pulse Resp B/P (MAP) Pulse Ox O2 Delivery O2 Flow Rate FiO2 12/27/17 11:40 99.6 93 18 120/68 (85) 97 12/27/17 07:25 98.6 92 18 113/60 (77) 98 12/27/17 04:00 97.3 89 16 129/64 (85) 96 12/27/17 03:47 Room Air 12/27/17 00:00 97.7 84 18 119/71 (87) 98 12/26/17 20:00 100.0 98 18 120/62 (81) 96 12/26/17 20:00 Room Air I/O 12/26/17 12/26/17 12/26/17 12/27/17 12/27/17 12/27/17 07:00 15:00 23:00 07:00 15:00 23:00 Intake Total 640 ml 870 ml 750 ml Output Total 1000 ml 175 ml 800 ml 1700 ml Balance -360 ml -175 ml 70 ml -950 ml Intake Oral 240 ml 720 ml 600 ml IV Total 400 ml 150 ml 150 ml Output Urine Total 1000 ml 175 ml 800 ml 1700 ml # Voids 2 1 # Bowel Movements 0 0 1 0 Result Diagram: 12/25/17 0530 Imaging Last Impressions Foot MRI 12/21/17 0000 Signed Impressions: Service Date/Time: Thursday, December 21, 2017 16:13 - CONCLUSION: 1. Cutaneous ulceration at the lateral mid foot with adjacent severe fourth metatarsal base bony abnormality and cuboid bony abnormality indicating osteomyelitis in the proper clinical setting. 2. Severe, increased bony abnormality about the navicular cuneiform joints, talonavicular joint, and the second and third tarsometatarsal joints. Not immediately contiguous with the cutaneous ulceration. May represent osteomyelitis or worsening neuropathic osteoarthropathy. 3. New severe erosive arthropathy of the second and third metatarsophalangeal joints. Differential diagnosis includes infection/septic arthritis versus other inflammatory arthritis. Cyrus Sears MD Foot X-Ray 12/20/17 0000 Signed Impressions: Service Date/Time: Wednesday, December 20, 2017 17:18 - CONCLUSION: 1. Bone erosions at the second and third metatarsal heads as well as at the base of the third proximal phalanx. Findings are suspicious for osteomyelitis in the proper clinical setting. 2. Nonspecific findings about the tarsometatarsal joints and talonavicular joint. 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 Cyrus Sears MD Objective Remarks right leg s/p BKA POD 3 stump with now a distal gauzed postop dressing, is able to partially flex his right hip and his right knee lying in bed, NAD CVS rrr w no murmurs lungs are clear abdomen soft NT Procedures 12/17/17 bone biopsy, right foot A/P Assessment and Plan 1. Osteomyelitis, right foot: Appreciate podiatry recommendations. Status post bone biopsy. Pathology shows osteomyelitis. Appreciate infectious disease recommendations. Continue IV antibiotics. s/p right BKA POD 3. continue IV morphine, continue oxycodone, monitor resp status. high dose gabapentin. Pt wishes to transition to all p.o. narcotics tomorrow or at least space out the IV morphine. Discussed w Kendrick VARGAS is assessing the pt, no beds yet. 2. Diabetes mellitus: Continue Levemir. Continue sliding scale insulin coverage. 3. Anemia: S/P GI workup during last hospitalization (showed gastritis, hemorrhoids). H&H stable. Continue PPI. 4. DVT prophylaxis: SCDs. Discharge Planning Anticipate inpatient rehab placement over the weekend or on Friday with eventual prosthesis. Gabi Lopez MD December 27, 2017 16:49
[2017-12-27 20:00] VITALS: BP_SYST 131; BP_SYST 165; BP_DIAS 68; BP_DIAS 74; PULSE 58; PULSE 94; RESP 16; RESP 18; TEMP 97.6; TEMP 98.1; O2SAT 100; O2SAT 97
[2017-12-27] MEDS: FLUCONAZOLE 400 MG PREMIX BAG 200 ML IV SCH (21:49)
[2017-12-27] MEDS: FLUCONAZOLE/NACL 400 MG/200 ML IV SCH (23:42)
[2017-12-28] VITALS: BP 109/62; PULSE 85; RESP 18; TEMP 97.9; O2SAT 99
[2017-12-28] MEDS: MORPHINE SULFATE 4 MG/ML INJ IV PUSH PRN ×6 (01:53→21:27)
[2017-12-28] MEDS: oxyCODONE/ACETAMINOPHEN 5 MG/325 MG TAB PO PRN ×2 (04:12→08:44)
[2017-12-28 05:14] VITALS: BP 118/68; PULSE 86; RESP 18; TEMP 98.7; O2SAT 100
[2017-12-28 07:25] VITALS: BP 102/58; PULSE 78; RESP 18; TEMP 98.8; O2SAT 99
[2017-12-28] MEDS: ceFAZolin 2 GM PREMIX 50 ML IV SCH ×2 (07:36→15:15)
[2017-12-28] MEDS: INSULIN ASPART SUPPLEMENTAL SCALE SQ SCH ×4 (08:00→21:27)
[2017-12-28] MEDS: PANTOPRAZOLE SOD 40 MG DELAYED RELEASE TAB PO SCH (08:43)
[2017-12-28] MEDS: FUROSEMIDE 20 MG TAB PO SCH (08:43)
[2017-12-28] MEDS: GABAPENTIN 300 MG CAP PO SCH ×3 (08:43→17:13)
[2017-12-28] MEDS: DOCUSATE SODIUM 50 MG/SENNA 8.6 MG TAB PO SCH ×2 (08:43→19:32)
[2017-12-28] MEDS: COLLAGENASE OINT 30 GM TUBE TOPICAL SCH (09:00)
[2017-12-28] MEDS: INSULIN DETEMIR 100 UNITS/ML VIAL SQ SCH ×2 (09:00→21:05)
[2017-12-28] MEDS: SODIUM CHLORIDE 0.9% FLUSH 10 ML FLUSH IV FLUSH SCH ×2 (10:35→21:04)
[2017-12-28] MEDS: LIDOCAINE HCL 5% PATCH T-DERMAL SCH (12:00)
[2017-12-28 12:10] VITALS: BP 117/63; PULSE 89; RESP 18; TEMP 98.8; O2SAT 97
[2017-12-28] MEDS: oxyCODONE/ACETAMINOPHEN 7.5 MG/325 MG TAB PO PRN ×2 (15:22→19:33)
[2017-12-28 15:40] VITALS: BP 115/61; PULSE 94; RESP 20; TEMP 98.3; O2SAT 98
--- NOTE | 2017-12-28 20:41 | HHI.PR ---
Subjective Remarks RN denies any deteriorations since last night. Patient says pain is improved, says morphine ultimately relieves the pain, dressing changes particularly are painful. Would like a 4k calorie diet. Objective Vital Signs Date Time Temp Pulse Resp B/P (MAP) Pulse Ox O2 Delivery O2 Flow Rate FiO2 12/28/17 20:00 96 Room Air 12/28/17 15:40 98.3 94 20 115/61 (79) 98 12/28/17 12:10 98.8 89 18 117/63 (81) 97 12/28/17 08:00 96 Room Air 12/28/17 07:25 98.8 78 18 102/58 (73) 99 12/28/17 05:14 98.7 86 18 118/68 (85) 100 12/28/17 00:00 97.9 85 18 109/62 (78) 99 I/O 12/27/17 12/27/17 12/27/17 12/28/17 12/28/17 12/28/17 07:00 15:00 23:00 07:00 15:00 23:00 Intake Total 750 ml 1440 ml 876 ml 600 ml Output Total 1700 ml 1500 ml 450 ml 400 ml Balance -950 ml -60 ml 426 ml 200 ml Intake Oral 600 ml 1440 ml 480 ml 600 ml IV Total 150 ml 396 ml Output Urine Total 1700 ml 1500 ml 450 ml 400 ml # Bowel Movements 0 Result Diagram: 12/25/17 0530 Objective Remarks right leg s/p BKA POD 3 stump with now a distal gauzed postop dressing, is able to partially flex his right hip and his right knee lying in bed, NAD A/P Assessment and Plan 1. Osteomyelitis, right foot: Appreciate podiatry recommendations. Status post bone biopsy. Pathology shows osteomyelitis. Appreciate infectious disease recommendations. Continue IV antibiotics. s/p right BKA POD 4. continue IV morphine only dressing changes, increasing percocet dose. high dose gabapentin. Will consider transitioning to all p.o. narcotics tomorrow if the patient is willing to try that. 2. Diabetes mellitus: Continue Levemir. Continue sliding scale insulin coverage. 3. Anemia: S/P GI workup during last hospitalization (showed gastritis, hemorrhoids). H&H stable. Continue PPI. 4. DVT prophylaxis: SCDs. Discharge Planning Anticipate inpatient rehab placement over the weekend or on Friday with eventual prosthesis. Jared Robledo MD December 28, 2017 20:41
[2017-12-28] MEDS: ceFAZolin 2 GM in NS 100 ML IV SCH (21:36)
[2017-12-28] MEDS: FLUCONAZOLE 400 MG PREMIX BAG 200 ML IV SCH (23:12)
[2017-12-28 23:53] VITALS: BP 122/64; PULSE 88; RESP 18; TEMP 97.9; O2SAT 98
[2017-12-29] MEDS: FLUCONAZOLE/NACL 400 MG/200 ML IV SCH (00:47)
[2017-12-29] MEDS: oxyCODONE/ACETAMINOPHEN 7.5 MG/325 MG TAB PO PRN ×2 (00:56→07:32)
[2017-12-29] MEDS: MORPHINE SULFATE 4 MG/ML INJ IV PUSH PRN ×4 (01:47→16:44)
[2017-12-29 04:00] VITALS: BP 130/66; PULSE 74; RESP 18; TEMP 98.3
[2017-12-29] MEDS: ceFAZolin 2 GM in NS 100 ML IV SCH ×2 (05:43→12:19)
[2017-12-29] MEDS: FUROSEMIDE 20 MG TAB PO SCH (07:32)
[2017-12-29] MEDS: PANTOPRAZOLE SOD 40 MG DELAYED RELEASE TAB PO SCH (07:32)
[2017-12-29] MEDS: GABAPENTIN 300 MG CAP PO SCH ×3 (07:32→16:45)
[2017-12-29] MEDS: DOCUSATE SODIUM 50 MG/SENNA 8.6 MG TAB PO SCH ×2 (07:33→21:30)
[2017-12-29] MEDS: LIDOCAINE HCL 5% PATCH T-DERMAL SCH (07:33)
[2017-12-29] MEDS: SODIUM CHLORIDE 0.9% FLUSH 10 ML FLUSH IV FLUSH SCH ×2 (07:34→21:30)
[2017-12-29 08:00] VITALS: BP 118/70; PULSE 98; RESP 18; TEMP 98.6; O2SAT 97
[2017-12-29] MEDS: INSULIN ASPART SUPPLEMENTAL SCALE SQ SCH ×5 (08:00→21:00)
[2017-12-29] MEDS: INSULIN DETEMIR 100 UNITS/ML VIAL SQ SCH ×2 (09:00→21:46)
[2017-12-29] MEDS: COLLAGENASE OINT 30 GM TUBE TOPICAL SCH (09:09)
--- NOTE | 2017-12-29 12:04 | HHI.PR ---
Subjective Remarks RN denies any deteriorations since last night. Patient says pain is improved, says morphine ultimately relieves the pain, dressing changes particularly are painful. Would like a 4k calorie diet. Objective Vital Signs Date Time Temp Pulse Resp B/P (MAP) Pulse Ox O2 Delivery O2 Flow Rate FiO2 12/29/17 08:00 98.6 98 18 118/70 (86) 97 12/29/17 08:00 Room Air 12/29/17 06:23 18 12/29/17 04:00 98.3 74 18 130/66 (87) 12/29/17 01:56 18 12/28/17 23:53 97.9 88 18 122/64 (83) 98 12/28/17 20:00 96 Room Air 12/28/17 15:40 98.3 94 20 115/61 (79) 98 12/28/17 12:10 98.8 89 18 117/63 (81) 97 I/O 12/28/17 12/28/17 12/28/17 12/29/17 12/29/17 12/29/17 06:59 14:59 22:59 06:59 14:59 22:59 Intake Total 876 ml 600 ml 250 ml Output Total 450 ml 400 ml Balance 426 ml 200 ml 250 ml Intake Oral 480 ml 600 ml 250 ml IV Total 396 ml Output Urine Total 450 ml 400 ml Result Diagram: 12/25/17 0530 Objective Remarks right leg s/p BKA POD 3 stump with now a distal gauzed postop dressing, is able to partially flex his right hip and his right knee lying in bed, NAD A/P Assessment and Plan 1. Osteomyelitis, right foot: Continue IV antibiotics. s/p right BKA POD 4. Discussed with patient thoroughly, will only do IV morphine as needed dressing changes, otherwise will switch over to oral morphine and stop Percocet. 2. Diabetes mellitus: Continue Levemir. Continue sliding scale insulin coverage. 3. Anemia: S/P GI workup during last hospitalization (showed gastritis, hemorrhoids). H&H stable. Continue PPI. 4. DVT prophylaxis: SCDs. Addendum: Nursing paged with patient having fever tachycardia greater than 100. Case reviewed with infectious disease, will chavira culture, chest x-ray, lactic acid, start cefepime and vancomycin. Discharge Planning awaiting inpatient rehab placement w/ Jared Chan MD December 29, 2017 12:04
[2017-12-29 12:23] VITALS: BP 129/70; PULSE 88; RESP 20; TEMP 99.3; O2SAT 99
[2017-12-29] MEDS: MORPHINE SULFATE 15 MG TAB PO PRN ×2 (13:02→21:29)
--- NOTE | 2017-12-29 13:26 | PD.CAR.PN ---
CVT Progress Note Subjective/Hospital Course: 57-year-old male with chronic osteomyelitis of the right foot underwent several procedures by podiatry and at this point incision is actually healed very nicely and technically this is an excellent outcome. Unfortunately patient has osteomyelitis deep inside the foot confirmed by bone biopsy and radiologic studies Patient has now undergone several courses of antibiotics since last year, one of those lasting for 11 weeks and still to no avail. This will allow the patient to be mobile get out of bed and return to normal social and physical functions right now is that this patient is bedridden. Foot is not functional and antibiotics are not helping anymore. In absence of amputation patient will end up with a complication from either antibiotics or bacteremia including endocarditis pseudomembranous colitis liver and renal failure or combination of the above potentially. In the and patient will succumb to all this. Based on all of the above there is no other way to successfully take care of this but go ahead with below-knee amputation. I discussed this at length with patient and his and they both agree to go ahead. Patient will undergo right below-knee amputation tomorrow. 12/25/2017 Patient is status post right BKA yesterday Site is clean and dry dressing is intact Pain management as per medicine Will remove original dressing on Friday Nothing to add to care at this time 12/26/2017 Right BKA stump is clean and dry dressing is been removed Patient has been instructed to exercise the knee Will redressed lightly and patient can be discharged to rehab from my point any time Stitches will remain in for about 3 weeks 12/29/2017 Incisions clean and dry and dressing is being changed Patient should exercise knee and hip as much as possible Nothing to add to care at this time Follow-up in my office in about 2 weeks Objective: Vital Signs Date Time Temp Pulse Resp B/P (MAP) Pulse Ox O2 Delivery O2 Flow Rate FiO2 12/29/17 12:23 99.3 88 20 129/70 (89) 99 12/29/17 08:00 98.6 98 18 118/70 (86) 97 12/29/17 08:00 Room Air 12/29/17 06:23 18 12/29/17 04:00 98.3 74 18 130/66 (87) 12/29/17 01:56 18 12/28/17 23:53 97.9 88 18 122/64 (83) 98 12/28/17 20:00 96 Room Air 12/28/17 15:40 98.3 94 20 115/61 (82) 98 Result Diagram: 12/25/17 0530 Kenzie Sanchez MD December 29, 2017 13:26
[2017-12-29 16:00] VITALS: BP 142/67; PULSE 107; RESP 18; TEMP 101.3; O2SAT 97
--- NOTE | 2017-12-29 16:00 | HHI.IDPN ---
Subjective Subjective Remarks Mr. Braxton is a 57-year-old male with past medical history significant for diabetes type 2, prior diabetic foot ulcer treated in October 2016 thereafter was hospitalized from May 08, 2017 to May 29, 2017 due to foot ulcer. During that hospitalization patient underwent surgical debridement with wound VAC placement. Patient reports that he was seen by Dr. Pritchard during that admission. Patient reports that he was discharged on IV ceftriaxone using a PICC line. Patient had home health care visits him and continue to receive wound VAC changes at home. He also was subsequently seen at wound care clinic for ongoing wound care as well as [facility] for his primary care needs. Patient reports that his medications were recently adjusted and a new insulin was introduced. Patient reports that he was diagnosed with a possible staph or strep infection and has been on oral Bactrim approximately 2 weeks prior to admission. Due to worsening foot infection as well as possible reaction to the new insulin patient presented to the emergency department [facility]. Patient reports that he was having fevers, chills, loss of appetite and diarrhea for the past 2 days associated with frequent urination. Patient denies any dysuria. He reports dizziness and reported history of falls 3 days ago while on the toilet. Patient's reports that she was unaware of this history of fall. He denies any head injury. Patient reports hitting his right foot and shoulder but that he was able to get off the floor by himself. Patient had a sepsis workup initiated on admission. Wound cultures are positive for strep as well as blood cultures are now positive for gram-positive likely strep. Repeat blood cultures have been ordered. Podiatry is seeing the patient and there is a plan for surgical intervention and possible amputation of the involved digit. Infectious disease is consulted for evaluation and management of right fifth toe osteomyelitis with associated cellulitis, gram-positive bacteremia and sepsis. Notes reviewed Temps ok C/O pain S/P R BKA 12/24 Path pending new C/S pending no rash no N/V no diarrhea WBC WNL ESR >140 s/p bone bx showing acute osteomyelitis Wound cx with no growth BCX with no growth Antibiotics IV Cefazolin IV Diflucan Lines PIV with no e/o infection Past Medical History DM II Right foot ulcer with possible osteomyelitis in the past. Has received IV antibiotics long-term using a PICC line in the past. Renal stones Allergies: Coded Allergies: No Known Allergies (Unverified Allergy, Unknown, 11/28/17) Uncoded Allergies: malagasy dressing (Allergy, Severe, Anaphylaxis, 10/07/17) Objective . Vital Signs Date Time Temp Pulse Resp B/P (MAP) Pulse Ox O2 Delivery O2 Flow Rate FiO2 12/29/17 12:23 99.3 88 20 129/70 (89) 99 12/29/17 08:00 98.6 98 18 118/70 (86) 97 12/29/17 08:00 Room Air 12/29/17 06:23 18 12/29/17 04:00 98.3 74 18 130/66 (87) 12/29/17 01:56 18 12/28/17 23:53 97.9 88 18 122/64 (83) 98 12/28/17 20:00 96 Room Air 12/29/17 12/29/17 12/30/17 15:00 23:00 07:00 Intake Total 250 ml Balance 250 ml Intake Oral 250 ml Imaging Last Impressions Foot MRI 12/21/17 0000 Signed Impressions: Service Date/Time: Thursday, December 21, 2017 16:13 - CONCLUSION: 1. Cutaneous ulceration at the lateral mid foot with adjacent severe fourth metatarsal base bony abnormality and cuboid bony abnormality indicating osteomyelitis in the proper clinical setting. 2. Severe, increased bony abnormality about the navicular cuneiform joints, talonavicular joint, and the second and third tarsometatarsal joints. Not immediately contiguous with the cutaneous ulceration. May represent osteomyelitis or worsening neuropathic osteoarthropathy. 3. New severe erosive arthropathy of the second and third metatarsophalangeal joints. Differential diagnosis includes infection/septic arthritis versus other inflammatory arthritis. Cyrus Sears MD Foot X-Ray 12/20/17 0000 Signed Impressions: Service Date/Time: Wednesday, December 20, 2017 17:18 - CONCLUSION: 1. Bone erosions at the second and third metatarsal heads as well as at the base of the third proximal phalanx. Findings are suspicious for osteomyelitis in the proper clinical setting. 2. Nonspecific findings about the tarsometatarsal joints and talonavicular joint. 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 Cyrus Sears MD Physical Exam GENERAL: in no apparent distress. Awake and alert. SKIN: No rashes, ecchymoses or lesions. Cool and dry. HEAD: Atraumatic. Normocephalic. No temporal or scalp tenderness. EYES: Pupils equal round and reactive. Extraocular motions intact. No scleral icterus. No injection or drainage. ENT: Nose without bleeding, purulent drainage or septal hematoma. Throat without erythema, tonsillar hypertrophy or exudate. Uvula midline. Airway patent. NECK: Trachea midline. Supple, nontender, no meningeal signs. CARDIOVASCULAR: HS audible. No murmur appreciated. RESPIRATORY: Clear to auscultation. Breath sounds equal bilaterally. No wheezes , rales, or rhonchi. GASTROINTESTINAL: Abdomen soft, non-tender, nondistended. MUSCULOSKELETAL: RBKA stump with intact dressing NEUROLOGICAL: Awake and alert. Able to move all extremities. Non focal exam. Normal speech. Psych cooperative IV line sites with no e.o infection. Assessment & Plan Remarks Rt foot osteomyelitis partially treated or new infection as bone and tendon was exposed earlier. Patient had refused skin graft last admission. New biopsy with osteomyelitis again and cultures negative. On Empiric Ancef IV and Diflucan. Possible tendinitis. C.albicans wound infection vs overgrowth MSSA septic arthritis in past. Recs DC Ancef IV DC Diflucan IV Reviewed note from 12/29/2017: incision good. Will stop all antibiotics. Will sign off please call back if any change in clinical condition or questions. Chuyita Quinteros MD December 29, 2017 16:00
[2017-12-29 18:01] VITALS: BP 109/59; PULSE 104; RESP 16; TEMP 100.3; O2SAT 98
[2017-12-29] MEDS ORDERED: SODIUM CHLOR 0.9% 1000 ML INJ 1,000 ML IV ONE (19:15)
[2017-12-29] MEDS ORDERED: Vancomycin Consult Pharmacy 1 EA OTHER SCH (19:15)
--- NOTE | 2017-12-29 19:15 | HHI.PR ---
Addendum to Inpatient Note Addendum Reason: Additional Documentation Additional Information recd call from Patient has new fevers 101.3 F. HR 104, BP 109/59 Recs Check lactic acid. Check CXR chavira cultures Start Cefepime IV Start Vanco IV Chuyita Quinteros MD December 29, 2017 19:15
[2017-12-29 20:26] LABS: AUTOMATED NEUTROPHIL # 8.2 TH/MM3 (1.8-7.7); BASOPHIL # 0.2 TH/MM3 (0-0.2); BASOPHIL % 1.3 % (0.0-2.0); EOSINOPHIL # 0.5 TH/MM3 (0-0.4); HEMATOCRIT 23.1 % (39.0-51.0); HEMOGLOBIN 7.2 GM/DL (13.0-17.0); LYMPH % 23.5 % (9.0-44.0); MEAN CELL VOLUME 74.9 FL (80.0-100.0); MEAN CORPUSCULAR HEMOGLOBIN 23.4 PG (27.0-34.0); MEAN CORPUSCULAR HGB CONC 31.3 % (32.0-36.0); MONOCYTE # 0.8 TH/MM3 (0-0.9); NEUT % 65.2 % (16.0-70.0); PLATELET COUNT 420 TH/MM3 (150-450); RED BLOOD COUNT 3.09 MIL/MM3 (4.50-5.90); RED CELL DISTRIBUTION WIDTH 18.4 % (11.6-17.2); WHITE BLOOD COUNT 12.6 TH/MM3 (4.0-11.0)
[2017-12-29 21:27] VITALS: BP 125/71; PULSE 98; RESP 20; TEMP 100.3; O2SAT 98
[2017-12-29] MEDS: VANCOMYCIN 1,000 MG/NS 250 ML IV SCH ×2 (21:35)
[2017-12-29] MEDS: CEFEPIME INJ 2,000 MG in SODIUM CHLORIDE 0.9% INJ 100 ML IV SCH (21:54)
--- NOTE | 2017-12-29 22:26 | RADRPT ---
EXAM DATE/TIME: 12/29/2017 20:30 [facility] COMPARISON: CHEST SINGLE AP, November 08, 2017, 10:43. INDICATIONS : Fever. MEDICAL HISTORY : Diabetes mellitus type II. SURGICAL HISTORY : Tonsillectomy. Right foot surgeries. ENCOUNTER: Initial ACUITY: 1 day PAIN SCORE: 0/10 LOCATION: Bilateral chest FINDINGS: PA and lateral views of the chest demonstrate the lungs to be symmetrically aerated without evidence of mass, infiltrate or effusion. The cardiomediastinal contours are unremarkable. Osseous structure s are intact. CONCLUSION: No acute disease. Wm Riley MD on December 29, 2017 at 22:22 Board Certified Radiologist. This report was verified electronically.
[2017-12-30] VITALS (7 sets, daily range): BP systolic 100–132; BP diastolic 58–74; PULSE 83–96; RESP 15–20; TEMP 98–98.9; O2SAT 97–99
[2017-12-30] MEDS: MORPHINE SULFATE 15 MG TAB PO PRN ×6 (02:08→22:09)
[2017-12-30 02:17] LABS: BACTERIA, URINE RARE /hpf; BILIRUBIN, URINE NEG (NEG); BLOOD, URINE TRACE (NEG); GLUCOSE,URINE NEG (NEG); KETONE, URINE NEG (NEG); NITRITE,URINE NEG (NEG); PH, URINE 6.5 (5.0-8.5); URINE COLOR LIGHT-YELLOW (YELLW/STRAW); URINE LEUKOCYTE ESTERASE NEG (NEG)
[2017-12-30] MEDS: CEFEPIME INJ 2,000 MG in SODIUM CHLORIDE 0.9% INJ 100 ML IV SCH ×3 (05:27→20:45)
[2017-12-30] MEDS: DOCUSATE SODIUM 50 MG/SENNA 8.6 MG TAB PO SCH ×2 (07:53→20:46)
[2017-12-30] MEDS: FUROSEMIDE 20 MG TAB PO SCH (07:53)
[2017-12-30] MEDS: PANTOPRAZOLE SOD 40 MG DELAYED RELEASE TAB PO SCH (07:53)
[2017-12-30] MEDS: GABAPENTIN 300 MG CAP PO SCH ×2 (07:53→11:57)
[2017-12-30] MEDS: INSULIN ASPART SUPPLEMENTAL SCALE SQ SCH ×4 (07:54→20:52)
[2017-12-30] MEDS: VANCOMYCIN 1,000 MG/NS 250 ML IV SCH ×4 (07:55→21:00)
[2017-12-30] MEDS: SODIUM CHLORIDE 0.9% FLUSH 10 ML FLUSH IV FLUSH SCH ×2 (07:55→20:46)
[2017-12-30] MEDS: LIDOCAINE HCL 5% PATCH T-DERMAL SCH (07:56)
[2017-12-30] MEDS: COLLAGENASE OINT 30 GM TUBE TOPICAL SCH (08:05)
[2017-12-30] MEDS: INSULIN DETEMIR 100 UNITS/ML VIAL SQ SCH ×2 (08:11→22:10)
--- NOTE | 2017-12-30 08:32 | HHI.IDPN ---
Subjective Subjective Remarks Patient seen and examined on behalf of Dr. Quinteros Mr. Braxton is a 57-year-old male with past medical history significant for diabetes type 2, prior diabetic foot ulcer treated in October 2016 thereafter was hospitalized from May 08, 2017 to May 29, 2017 due to foot ulcer. During that hospitalization patient underwent surgical debridement with wound VAC placement. Patient reports that he was seen by Dr. Pritchard during that admission. Patient reports that he was discharged on IV ceftriaxone using a PICC line. Patient had home health care visits him and continue to receive wound VAC changes at home. He also was subsequently seen at wound care clinic for ongoing wound care as well as [facility] clinic for his primary care needs. Patient reports that his medications were recently adjusted and a new insulin was introduced. Patient reports that he was diagnosed with a possible staph or strep infection and has been on oral Bactrim approximately 2 weeks prior to admission. Due to worsening foot infection as well as possible reaction to the new insulin patient presented to the emergency department [facility]. Patient reports that he was having fevers, chills, loss of appetite and diarrhea for the past 2 days associated with frequent urination. Patient denies any dysuria. He reports dizziness and reported history of falls 3 days ago while on the toilet. Patient's reports that she was unaware of this history of fall. He denies any head injury. Patient reports hitting his right foot and shoulder but that he was able to get off the floor by himself. Patient had a sepsis workup initiated on admission. Wound cultures are positive for strep as well as blood cultures are now positive for gram-positive likely strep. Repeat blood cultures have been ordered. Podiatry is seeing the patient and there is a plan for surgical intervention and possible amputation of the involved digit. Infectious disease is consulted for evaluation and management of right fifth toe osteomyelitis with associated cellulitis, gram-positive bacteremia and sepsis. Notes reviewed Temps max 101.3 with tachycardia, leukocytosis after stopping IV abx Lactic acid 0.6 Currently afebrile. c/o night sweats C/O numbness from mid thigh down no rash + nausea, states he wasn't able to eat anything all day yesterday. He did just order breakfast. no dysuria no diarrhea 12/18 s/p bone bx showing acute osteomyelitis S/P R BKA 5/9 Path with clear margins new C/S pending CXR and UA negative WBC 12.6, repeat CBC ordered ESR >140, CRP 9.20 Wound cx with no growth Prev BCX with no growth, Repeat BCX 12/29 pending Antibiotics IV Vancomycin IV Cefepime Lines PIV with no e/o infection Past Medical History DM II Right foot ulcer with possible osteomyelitis in the past. Has received IV antibiotics long-term using a PICC line in the past. Renal stones (Ami Prado) Allergies: Coded Allergies: No Known Allergies (Unverified Allergy, Unknown, 11/28/17) Uncoded Allergies: swedish dressing (Allergy, Severe, Anaphylaxis, 10/07/17) Objective . Vital Signs Date Time Temp Pulse Resp B/P (MAP) Pulse Ox O2 Delivery O2 Flow Rate FiO2 12/30/17 04:00 98.0 91 16 120/68 (85) 98 12/30/17 00:00 98.4 90 18 119/74 (89) 97 12/29/17 21:27 100.3 98 20 125/71 (89) 98 12/29/17 18:01 100.3 104 16 109/59 (76) 98 12/29/17 16:00 101.3 107 18 142/67 (92) 97 12/29/17 12:23 99.3 88 20 129/70 (89) 99 . Laboratory Tests Test 12/29/17 19:49 White Blood Count 12.6 TH/MM3 Red Blood Count 3.09 MIL/MM3 Hemoglobin 7.2 GM/DL Hematocrit 23.1 % Mean Corpuscular Volume 74.9 FL Mean Corpuscular Hemoglobin 23.4 PG Mean Corpuscular Hemoglobin Concent 31.3 % Red Cell Distribution Width 18.4 % Platelet Count 420 TH/MM3 Mean Platelet Volume 8.0 FL Neutrophils (%) (Auto) 65.2 % Lymphocytes (%) (Auto) 23.5 % Monocytes (%) (Auto) 6.0 % Eosinophils (%) (Auto) 4.0 % Basophils (%) (Auto) 1.3 % Neutrophils # (Auto) 8.2 TH/MM3 Lymphocytes # (Auto) 3.0 TH/MM3 Monocytes # (Auto) 0.8 TH/MM3 Eosinophils # (Auto) 0.5 TH/MM3 Basophils # (Auto) 0.2 TH/MM3 CBC Comment DIFF FINAL Differential Comment Hematology Comments Laboratory Tests Test 12/29/17 19:49 Lactic Acid Level 0.6 mmol/L Microbiology Date/Time Source Procedure Growth Status 12/29/17 19:49 Blood Peripheral Aerobic Blood Culture Pending Received 12/29/17 19:49 Blood Peripheral Anaerobic Blood Culture Pending Received 12/29/17 19:40 Blood Peripheral Aerobic Blood Culture Pending Received 12/29/17 19:40 Blood Peripheral Anaerobic Blood Culture Pending Received Imaging Last Impressions Chest X-Ray 12/29/17 0000 Signed Impressions: Service Date/Time: Friday, December 29, 2017 20:30 - CONCLUSION: No acute disease. Wm Riley MD Foot MRI 12/21/17 0000 Signed Impressions: Service Date/Time: Thursday, December 21, 2017 16:13 - CONCLUSION: 1. Cutaneous ulceration at the lateral mid foot with adjacent severe fourth metatarsal base bony abnormality and cuboid bony abnormality indicating osteomyelitis in the proper clinical setting. 2. Severe, increased bony abnormality about the navicular cuneiform joints, talonavicular joint, and the second and third tarsometatarsal joints. Not immediately contiguous with the cutaneous ulceration. May represent osteomyelitis or worsening neuropathic osteoarthropathy. 3. New severe erosive arthropathy of the second and third metatarsophalangeal joints. Differential diagnosis includes infection/septic arthritis versus other inflammatory arthritis. Cyrus Sears MD Foot X-Ray 12/20/17 0000 Signed Impressions: Service Date/Time: Wednesday, December 20, 2017 17:18 - CONCLUSION: 1. Bone erosions at the second and third metatarsal heads as well as at the base of the third proximal phalanx. Findings are suspicious for osteomyelitis in the proper clinical setting. 2. Nonspecific findings about the tarsometatarsal joints and talonavicular joint. 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 Cyrus Sears MD Physical Exam GENERAL: WDWN male, in no apparent distress. Awake and alert. Lying in hospital bed. SKIN: Warm and moist. HEAD: Atraumatic. Normocephalic. EYES: Extraocular motions intact. No scleral icterus. No injection or drainage. ENT: Nose without bleeding or purulent drainage. Throat without erythema, tonsillar hypertrophy or exudate. Uvula midline. Airway patent. MMM. NECK: Trachea midline. Supple, nontender, no meningeal signs. CARDIOVASCULAR: HS audible. No murmur appreciated. RESPIRATORY: Nonlabored. Few bibasilar crackles noted on exam. Breath sounds equal bilaterally. GASTROINTESTINAL: Abdomen soft, non-tender, nondistended. MUSCULOSKELETAL: R BKA stump with dressing C/D/I NEUROLOGICAL: Awake and alert. Able to move all extremities. Non focal exam. Normal speech. Psych cooperative IV line sites with no e.o infection. (Ami Prado) Assessment & Plan Remarks SIRS with spike in fever yesterday 101.3, leukocytosis and tachycardia. Started on IV Vancomycin and Cefepime. Fever occurred within hour of discontinuation of IV abx ?drug fever -CXR and UA negative -repeat BCX pending Rt foot osteomyelitis partially treated or new infection as bone and tendon was exposed earlier. Patient had refused skin graft last admission. New biopsy with osteomyelitis again and cultures negative. Treated with empiric Ancef IV and Diflucan. s/p BKA with clear margins. Possible tendinitis. C.albicans wound infection vs overgrowth MSSA septic arthritis in past. Recs Continue IV Vancomycin and Cefepime. If no recurrence of fever overnight, will likely discontinue IV abx tomorrow. Repeat CBC IS at bedside, encourage hourly use Follow up on repeat blood culture results until final Doppler studies r/o DVT Monitor clinically Further recommendations to follow (Ami Prado) Remarks The exam, history, and the medical decision-making described in the above note were completed with the assistance of the mid-level provider. I reviewed and agree with the findings presented. I attest that I had a [id number] encounter with the patient on the same day, and personally performed and documented my assessment and findings in the medical record. Clinically doing well Complains of sweats No fevers after midnight Sat up in bed No SOB,CP No diarrhea CTA BL Decreased AE in bases. Recs Incentive spirometry Continue Cefepime IV Continue Vanco IV for now. If blood cultures negative at 48 hrs and clinically doing well may consider stopping and observing off antibiotics. Will follow along. (Chuyita Quinteros MD) Ami Prado December 30, 2017 08:32 Chuyita Quinteros MD December 30, 2017 15:52
[2017-12-30 09:14] LABS: BASOPHIL # 0.1 TH/MM3 (0-0.2); BASOPHIL % 0.9 % (0.0-2.0); EOSINOPHIL # 0.5 TH/MM3 (0-0.4); EOSINOPHIL % 6.9 % (0.0-4.0); HEMATOCRIT 21.8 % (39.0-51.0); HEMOGLOBIN 7.1 GM/DL (13.0-17.0); LYMPH % 23.6 % (9.0-44.0); LYMPHOCYTE # 1.6 TH/MM3 (1.0-4.8); MEAN CELL VOLUME 73.7 FL (80.0-100.0); MEAN CORPUSCULAR HEMOGLOBIN 24.1 PG (27.0-34.0); MEAN CORPUSCULAR HGB CONC 32.6 % (32.0-36.0); MEAN PLATELET VOLUME 7.3 FL (7.0-11.0); MONO % 8.4 % (0.0-8.0); MONOCYTE # 0.6 TH/MM3 (0-0.9); NEUT % 60.2 % (16.0-70.0); PLATELET COUNT 409 TH/MM3 (150-450); RED BLOOD COUNT 2.96 MIL/MM3 (4.50-5.90); RED CELL DISTRIBUTION WIDTH 18.6 % (11.6-17.2); WHITE BLOOD COUNT 6.7 TH/MM3 (4.0-11.0)
--- NOTE | 2017-12-30 10:48 | RADRPT ---
EXAM DATE/TIME: 12/30/2017 09:52 [facility] COMPARISON: No previous studies available for comparison. INDICATIONS : Right arm pain. MEDICAL HISTORY : Osteomyelitis. Kidney stones. Diabetes. SURGICAL HISTORY : Tonsillectomy. Kidney stone removal. Right foot surgery. Right leg below the knee amputation. ENCOUNTER: [facility] ACUITY: 1 day PAIN SCORE: 10/10 LOCATION: Right arm. FINDINGS: There is spontaneous flow documented in the brachial, basilic, cephalic, axillary, and subclavian vei ns. The vessels are compressible and augmentation response is documented. No filling defects are se en. The flow is phasic with respiration. Direction of flow in the jugular vein is caudal. CONCLUSION: 1. No sonographic evidence for right upper extremity DVT. Lupillo Webster MD on December 30, 2017 at 10:45 Board Certified Radiologist. This report was verified electronically.
--- NOTE | 2017-12-30 10:51 | RADRPT ---
EXAM DATE/TIME: 12/30/2017 10:04 [facility] COMPARISON: No previous studies available for comparison. INDICATIONS : Bilateral leg pain. MEDICAL HISTORY : Osteomyelitis. Kidney stones. Diabetes. SURGICAL HISTORY : Tonsillectomy. Kidney stone removal. Right foot surgery. Right leg below the knee amputation. ENCOUNTER: Subsequent ACUITY: 1 day PAIN SCORE: 9/10 LOCATION: Bilateral leg. TECHNIQUE: Venous ultrasound of the left and right leg was performed from the inguinal ligament to the proximal calf. Real-time, color Doppler and spectral tracing, compression and augmentation techniques were us ed. FINDINGS: RIGHT LEG: There is normal compressibility of the deep venous system from the inguinal region to the proximal ca lf. No echogenic clot is seen in the lumen of the common femoral, femoral, popliteal veins. There i s a normal response of the venous system to proximal and distal augmentation and respiration. LEFT LEG: There is normal compressibility of the deep venous system from the inguinal region to the proximal ca lf. No echogenic clot is seen in the lumen of the common femoral, femoral, popliteal, and posterior tibial veins. There is a normal response of the venous system to proximal and distal augmentation an d respiration. CONCLUSION: Normal examination. Stewart Alberts MD on December 30, 2017 at 10:48 Board Certified Radiologist. This report was verified electronically.
[2017-12-30] MEDS: MORPHINE SULFATE 4 MG/ML INJ IV PUSH PRN (11:56)
[2017-12-30] MEDS: GABAPENTIN 400 MG CAP PO SCH ×2 (13:00→17:03)
--- NOTE | 2017-12-30 13:04 | HHI.PR ---
Subjective Remarks RN denies any deteriorations since last night. Patient himself has noted that I have deescalated him from 2 narcotic medications down to 1 narcotic medication. Says that when he was participating with physical therapy sometime yesterday he felt a snapping-like sensation in his right lower extremity stump with some increased pain that went away. Objective Vital Signs Date Time Temp Pulse Resp B/P (MAP) Pulse Ox O2 Delivery O2 Flow Rate FiO2 12/30/17 12:27 18 12/30/17 11:45 18 12/30/17 11:34 98.8 88 18 129/74 (92) 97 12/30/17 08:55 98.6 83 17 132/72 (92) 99 12/30/17 04:00 98.0 91 16 120/68 (85) 98 12/30/17 00:00 98.4 90 18 119/74 (89) 97 12/29/17 21:27 100.3 98 20 125/71 (89) 98 12/29/17 18:01 100.3 104 16 109/59 (76) 98 12/29/17 16:00 101.3 107 18 142/67 (92) 97 I/O 12/29/17 12/29/17 12/29/17 12/30/17 12/30/17 12/30/17 07:00 15:00 23:00 07:00 15:00 23:00 Intake Total 250 ml 350 ml Balance 250 ml 350 ml Intake Oral 250 ml 250 ml IV Total 100 ml Result Diagram: 12/30/17 0900 Objective Remarks right leg s/p BKA POD 4 stump with now a distal gauzed postop dressing, is able to partially flex his right hip and his right knee lying in bed, NAD A/P Assessment and Plan New onset sepsis -blood cultures were drawn yesterday, lactic acid is within normal limits, chest x-ray which I independently reviewed is negative for any obvious acute infiltrates. Started on cefepime and vancomycin yesterday per infectious disease recommendations. osteomyelitis of previously maintained distal right lower extremity - s/p right BKA postop day 5 - completed abx course per ID yesterday but started spiking fevers once antibiotics were stopped. - Lipitor Right leg pain -We will increase gabapentin from 600-800 mg 3 times daily Diabetes mellitus - Continue Levemir. Continue sliding scale insulin coverage. Anemia: - S/P GI workup during last hospitalization (showed gastritis, hemorrhoids). H& H stable. Continue PPI. DVT prophylaxis: starting lovenox Discharge Planning awaiting inpatient rehab placement w/ Jared Chan MD December 30, 2017 13:04
[2017-12-30] MEDS: ENOXAPARIN SODIUM 30 MG/0.3 ML SYRINGE SQ SCH (17:03)
[2017-12-31] VITALS: BP 109/56; PULSE 88; RESP 18; TEMP 98.8; O2SAT 99
[2017-12-31] MEDS: MORPHINE SULFATE 15 MG TAB PO PRN ×5 (01:59→20:25)
[2017-12-31 04:00] VITALS: BP 141/65; PULSE 91; RESP 18; TEMP 98.2; O2SAT 98
[2017-12-31] MEDS: CEFEPIME INJ 2,000 MG in SODIUM CHLORIDE 0.9% INJ 100 ML IV SCH ×2 (05:00→12:37)
[2017-12-31] MEDS: ENOXAPARIN SODIUM 30 MG/0.3 ML SYRINGE SQ SCH ×2 (06:16→16:55)
[2017-12-31] MEDS: INSULIN ASPART SUPPLEMENTAL SCALE SQ SCH ×4 (08:00→21:00)
[2017-12-31 08:03] VITALS: BP 123/68; PULSE 89; RESP 17; TEMP 98.7; O2SAT 98
[2017-12-31 08:42] LABS: CREATININE 0.71 MG/DL (0.60-1.30)
[2017-12-31] MEDS ORDERED: PHARMACY ORDERED LAB ONE (08:45)
--- NOTE | 2017-12-31 08:54 | HHI.IDPN ---
Subjective Subjective Remarks Patient seen and examined on behalf of Dr. Quinteros Mr. Braxton is a 57-year-old male with past medical history significant for diabetes type 2, prior diabetic foot ulcer treated in October 2016 thereafter was hospitalized from May 08, 2017 to May 29, 2017 due to foot ulcer. During that hospitalization patient underwent surgical debridement with wound VAC placement. Patient reports that he was seen by Dr. Pritchard during that admission. Patient reports that he was discharged on IV ceftriaxone using a PICC line. Patient had home health care visits him and continue to receive wound VAC changes at home. He also was subsequently seen at wound care clinic for ongoing wound care as well as [facility] for his primary care needs. Patient reports that his medications were recently adjusted and a new insulin was introduced. Patient reports that he was diagnosed with a possible staph or strep infection and has been on oral Bactrim approximately 2 weeks prior to admission. Due to worsening foot infection as well as possible reaction to the new insulin patient presented to the emergency department [facility]. Patient reports that he was having fevers, chills, loss of appetite and diarrhea for the past 2 days associated with frequent urination. Patient denies any dysuria. He reports dizziness and reported history of falls 3 days ago while on the toilet. Patient's reports that she was unaware of this history of fall. He denies any head injury. Patient reports hitting his right foot and shoulder but that he was able to get off the floor by himself. Patient had a sepsis workup initiated on admission. Wound cultures are positive for strep as well as blood cultures are now positive for gram-positive likely strep. Repeat blood cultures have been ordered. Podiatry is seeing the patient and there is a plan for surgical intervention and possible amputation of the involved digit. Infectious disease is consulted for evaluation and management of right fifth toe osteomyelitis with associated cellulitis, gram-positive bacteremia and sepsis. Notes reviewed No fevers overnight Patient states he feels okay today no rash no cough or SOB no nausea or vomiting no dysuria no diarrhea 12/18 s/p bone bx showing acute osteomyelitis S/P R BKA 12/24 Path with clear margins C/S negative CXR and UA negative Doppler negative for DVT Leukocytosis resolved, white count now within normal limits ESR >140, CRP 9.20 Prev BCX with no growth, Repeat BCX 12/29 no growth x 1 day Antibiotics IV Vancomycin IV Cefepime Lines PIV with no e/o infection Past Medical History DM II Right foot ulcer with possible osteomyelitis in the past. Has received IV antibiotics long-term using a PICC line in the past. Renal stones (Ami Prado) Allergies: Coded Allergies: No Known Allergies (Unverified Allergy, Unknown, 11/28/17) Uncoded Allergies: lao dressing (Allergy, Severe, Anaphylaxis, 10/07/17) Objective . Vital Signs Date Time Temp Pulse Resp B/P (MAP) Pulse Ox O2 Delivery O2 Flow Rate FiO2 12/31/17 08:03 98.7 89 17 123/68 (86) 98 12/31/17 04:00 Room Air 12/31/17 04:00 98.2 91 18 141/65 (90) 98 12/31/17 00:00 98.8 88 18 109/56 (73) 99 12/31/17 00:00 Room Air 12/30/17 20:53 98 21 12/30/17 20:00 Room Air 12/30/17 20:00 98.9 96 15 126/58 (80) 97 12/30/17 18:41 18 12/30/17 16:00 98.7 90 20 100/58 (72) 97 12/30/17 12:27 18 12/30/17 11:34 98.8 88 18 129/74 (92) 97 12/30/17 08:55 98.6 83 17 132/72 (92) 99 . Laboratory Tests Test 12/29/17 19:49 12/30/17 09:00 White Blood Count 12.6 TH/MM3 6.7 TH/MM3 Red Blood Count 3.09 MIL/MM3 2.96 MIL/MM3 Hemoglobin 7.2 GM/DL 7.1 GM/DL Hematocrit 23.1 % 21.8 % Mean Corpuscular Volume 74.9 FL 73.7 FL Mean Corpuscular Hemoglobin 23.4 PG 24.1 PG Mean Corpuscular Hemoglobin Concent 31.3 % 32.6 % Red Cell Distribution Width 18.4 % 18.6 % Platelet Count 420 TH/MM3 409 TH/MM3 Mean Platelet Volume 8.0 FL 7.3 FL Neutrophils (%) (Auto) 65.2 % 60.2 % Lymphocytes (%) (Auto) 23.5 % 23.6 % Monocytes (%) (Auto) 6.0 % 8.4 % Eosinophils (%) (Auto) 4.0 % 6.9 % Basophils (%) (Auto) 1.3 % 0.9 % Neutrophils # (Auto) 8.2 TH/MM3 4.0 TH/MM3 Lymphocytes # (Auto) 3.0 TH/MM3 1.6 TH/MM3 Monocytes # (Auto) 0.8 TH/MM3 0.6 TH/MM3 Eosinophils # (Auto) 0.5 TH/MM3 0.5 TH/MM3 Basophils # (Auto) 0.2 TH/MM3 0.1 TH/MM3 CBC Comment DIFF FINAL DIFF FINAL Differential Comment Hematology Comments Laboratory Tests Test 12/29/17 19:49 12/31/17 07:45 Lactic Acid Level 0.6 mmol/L Creatinine 0.71 MG/DL Estimat Glomerular Filtration Rate 114 ML/MIN Microbiology Date/Time Source Procedure Growth Status 12/29/17 19:49 Blood Peripheral Aerobic Blood Culture - Preliminary NO GROWTH IN 1 DAY Resulted 12/29/17 19:49 Blood Peripheral Anaerobic Blood Culture - Preliminary NO GROWTH IN 1 DAY Resulted 12/29/17 19:40 Blood Peripheral Aerobic Blood Culture - Preliminary NO GROWTH IN 1 DAY Resulted 12/29/17 19:40 Blood Peripheral Anaerobic Blood Culture - Preliminary NO GROWTH IN 1 DAY Resulted Imaging Last Impressions Upper Extremity Ultrasound 12/30/17 0000 Signed Impressions: Service Date/Time: Saturday, December 30, 2017 09:52 - CONCLUSION: 1. No sonographic evidence for right upper extremity DVT. Lupillo Webster MD Lower Extremity Ultrasound 12/30/17 0000 Signed Impressions: Service Date/Time: Saturday, December 30, 2017 10:04 - CONCLUSION: Normal examination. Stewart Alberts MD Chest X-Ray 12/29/17 0000 Signed Impressions: Service Date/Time: Friday, December 29, 2017 20:30 - CONCLUSION: No acute disease. Wm Riley MD Foot MRI 12/21/17 0000 Signed Impressions: Service Date/Time: Thursday, December 21, 2017 16:13 - CONCLUSION: 1. Cutaneous ulceration at the lateral mid foot with adjacent severe fourth metatarsal base bony abnormality and cuboid bony abnormality indicating osteomyelitis in the proper clinical setting. 2. Severe, increased bony abnormality about the navicular cuneiform joints, talonavicular joint, and the second and third tarsometatarsal joints. Not immediately contiguous with the cutaneous ulceration. May represent osteomyelitis or worsening neuropathic osteoarthropathy. 3. New severe erosive arthropathy of the second and third metatarsophalangeal joints. Differential diagnosis includes infection/septic arthritis versus other inflammatory arthritis. Cyrus Sears MD Foot X-Ray 12/20/17 0000 Signed Impressions: Service Date/Time: Wednesday, December 20, 2017 17:18 - CONCLUSION: 1. Bone erosions at the second and third metatarsal heads as well as at the base of the third proximal phalanx. Findings are suspicious for osteomyelitis in the proper clinical setting. 2. Nonspecific findings about the tarsometatarsal joints and talonavicular joint. 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 Cyrus Sears MD Physical Exam GENERAL: WDWN male, in no apparent distress. Awake and alert. Sitting up in bed watching TV. Appears comfortable. He is asking for new Fentanyl patch. SKIN: Warm and moist. HEAD: Atraumatic. Normocephalic. EYES: Extraocular motions intact. No scleral icterus. No injection or drainage. ENT: Nose without bleeding or purulent drainage. Throat without erythema, tonsillar hypertrophy or exudate. Uvula midline. Airway patent. MMM. NECK: Trachea midline. Supple, nontender, no meningeal signs. CARDIOVASCULAR: HS audible. No murmur appreciated. RESPIRATORY: Nonlabored. Diminished bilateral bases but clear. Breath sounds equal bilaterally. GASTROINTESTINAL: Abdomen soft, non-tender, nondistended. MUSCULOSKELETAL: R BKA stump with dressing C/D/I NEUROLOGICAL: Awake and alert. Able to move all extremities. Non focal exam. Normal speech. PSYCHIATRIC: Calm and cooperative IV line sites with no e.o infection. (Ami Prado) Assessment & Plan Remarks SIRS with spike in fever 12/30 101.3, leukocytosis and tachycardia. Started on IV Vancomycin and Cefepime. Fever occurred within hour of discontinuation of IV abx ?drug fever -CXR and UA negative -repeat BCX with no growth 1 day -Doppler negative for DVT Leukocytosis, resolved Rt foot osteomyelitis partially treated or new infection as bone and tendon was exposed earlier. Patient had refused skin graft last admission. New biopsy with osteomyelitis again and cultures negative. Treated with empiric Ancef IV and Diflucan. s/p BKA with clear margins. Possible tendinitis. C.albicans wound infection vs overgrowth MSSA septic arthritis in past. Recs Clinically appears improved Continue IV Vancomycin and Cefepime. Will likely discontinue and monitor off of systemic antibiotics. IS at bedside, encouraged hourly use Follow up on repeat blood culture results until final Monitor clinically Further recommendations to follow (Ami Prado) Remarks The exam, history, and the medical decision-making described in the above note were completed with the assistance of the mid-level provider. I reviewed and agree with the findings presented. I attest that I had a [id number] encounter with the patient on the same day, and personally performed and documented my assessment and findings in the medical record. DC Cefepime IV DC Vanco IV Observe off antibiotics. dw earlier no need for antibiotics. Possible drug fever while on Ancef IV Will sign off. Please call back if any change in clinical condition or questions. (Chuyita Quinteros MD) Ami Prado December 31, 2017 08:54 Chuyita Quinteros MD December 31, 2017 15:23
[2017-12-31] MEDS: COLLAGENASE OINT 30 GM TUBE TOPICAL SCH (09:00)
[2017-12-31] MEDS: INSULIN DETEMIR 100 UNITS/ML VIAL SQ SCH ×2 (09:00→21:14)
[2017-12-31] MEDS: DOCUSATE SODIUM 50 MG/SENNA 8.6 MG TAB PO SCH ×2 (09:00→20:25)
[2017-12-31] MEDS: VANCOMYCIN 1,000 MG/NS 250 ML IV SCH ×2 (09:04)
[2017-12-31] MEDS: LIDOCAINE HCL 5% PATCH T-DERMAL SCH (09:05)
[2017-12-31] MEDS: SODIUM CHLORIDE 0.9% FLUSH 10 ML FLUSH IV FLUSH SCH ×2 (09:05→21:14)
[2017-12-31] MEDS: PANTOPRAZOLE SOD 40 MG DELAYED RELEASE TAB PO SCH (09:06)
[2017-12-31] MEDS: FUROSEMIDE 20 MG TAB PO SCH (09:06)
[2017-12-31] MEDS: GABAPENTIN 400 MG CAP PO SCH ×3 (09:06→16:55)
--- NOTE | 2017-12-31 10:30 | HHI.PR ---
Subjective Remarks 12-30 RN denies any deteriorations since last night. Patient himself has noted that I have deescalated him from 2 narcotic medications down to 1 narcotic medication. Says that when he was participating with physical therapy sometime yesterday he felt a snapping-like sensation in his right lower extremity stump with some increased pain that went away. 12-31 WILL DW RN AND PT AND CASE MANAGEMENT WILL NEED SAFE PLACEMENT AT DC No new complaints on the right lower extremity Discussed with RN and patient CONTINUE ON IV ANTIBIOTICS PER ID VANCO AND CEFEPIME Objective Vitals Vital Signs Date Time Temp Pulse Resp B/P (MAP) Pulse Ox O2 Delivery O2 Flow Rate FiO2 12/31/17 09:32 98 Room Air 12/31/17 08:03 98.7 89 17 123/68 (86) 98 12/31/17 04:00 Room Air 12/31/17 04:00 98.2 91 18 141/65 (90) 98 12/31/17 00:00 98.8 88 18 109/56 (73) 99 12/31/17 00:00 Room Air 12/30/17 20:53 98 21 12/30/17 20:00 Room Air 12/30/17 20:00 98.9 96 15 126/58 (80) 97 12/30/17 18:41 18 12/30/17 16:00 98.7 90 20 100/58 (72) 97 12/30/17 12:27 18 12/30/17 11:34 98.8 88 18 129/74 (92) 97 I/O 12/30/17 12/30/17 12/30/17 12/31/17 12/31/17 12/31/17 07:00 15:00 23:00 07:00 15:00 23:00 Intake Total 1190 ml 610 ml Output Total 750 ml 1100 ml Balance 440 ml -490 ml Intake Oral 840 ml 510 ml IV Total 350 ml 100 ml Output Urine Total 750 ml 1100 ml # Bowel Movements 0 Result Diagram: 12/30/17 0900 12/31/17 0745 Other Results Laboratory Tests Test 12/29/17 19:49 12/30/17 01:48 12/30/17 09:00 12/31/17 07:45 White Blood Count 12.6 TH/MM3 6.7 TH/MM3 Red Blood Count 3.09 MIL/MM3 2.96 MIL/MM3 Hemoglobin 7.2 GM/DL 7.1 GM/DL Hematocrit 23.1 % 21.8 % Mean Corpuscular Volume 74.9 FL 73.7 FL Mean Corpuscular Hemoglobin 23.4 PG 24.1 PG Mean Corpuscular Hemoglobin Concent 31.3 % 32.6 % Red Cell Distribution Width 18.4 % 18.6 % Platelet Count 420 TH/MM3 409 TH/MM3 Mean Platelet Volume 8.0 FL 7.3 FL Neutrophils (%) (Auto) 65.2 % 60.2 % Lymphocytes (%) (Auto) 23.5 % 23.6 % Monocytes (%) (Auto) 6.0 % 8.4 % Eosinophils (%) (Auto) 4.0 % 6.9 % Basophils (%) (Auto) 1.3 % 0.9 % Neutrophils # (Auto) 8.2 TH/MM3 4.0 TH/MM3 Lymphocytes # (Auto) 3.0 TH/MM3 1.6 TH/MM3 Monocytes # (Auto) 0.8 TH/MM3 0.6 TH/MM3 Eosinophils # (Auto) 0.5 TH/MM3 0.5 TH/MM3 Basophils # (Auto) 0.2 TH/MM3 0.1 TH/MM3 CBC Comment DIFF FINAL DIFF FINAL Differential Comment Hematology Comments Lactic Acid Level 0.6 mmol/L Urine Color LIGHT-YELLOW Urine Turbidity CLEAR Urine pH 6.5 Urine Specific [place] 1.010 Urine Protein 30 mg/dL Urine Glucose (UA) NEG mg/dL Urine Ketones NEG mg/dL Urine Occult Blood TRACE Urine Nitrite NEG Urine Bilirubin NEG Urine Urobilinogen LESS THAN 2.0 MG/DL Urine Leukocyte Esterase NEG Urine RBC 5 /hpf Urine WBC 1 /hpf Urine Bacteria RARE /hpf Microscopic Urinalysis Comment CULT NOT INDICATED Creatinine 0.71 MG/DL Estimat Glomerular Filtration Rate 114 ML/MIN Vancomycin Level Trough 18.0 MCG/ML Imaging Last Impressions Upper Extremity Ultrasound 12/30/17 Signed Impressions: Service Date/Time: Saturday, December 30, 2017 09:52 - CONCLUSION: 1. No sonographic evidence for right upper extremity DVT. Lupillo Webster MD Lower Extremity Ultrasound 12/30/17 Signed Impressions: Service Date/Time: Saturday, December 30, 2017 10:04 - CONCLUSION: Normal examination. Stewart Alberts MD Chest X-Ray 12/29/17 0000 Signed Impressions: Service Date/Time: Friday, December 29, 2017 20:30 - CONCLUSION: No acute disease. Wm Riley MD Foot MRI 12/21/17 0000 Signed Impressions: Service Date/Time: Thursday, December 21, 2017 16:13 - CONCLUSION: 1. Cutaneous ulceration at the lateral mid foot with adjacent severe fourth metatarsal base bony abnormality and cuboid bony abnormality indicating osteomyelitis in the proper clinical setting. 2. Severe, increased bony abnormality about the navicular cuneiform joints, talonavicular joint, and the second and third tarsometatarsal joints. Not immediately contiguous with the cutaneous ulceration. May represent osteomyelitis or worsening neuropathic osteoarthropathy. 3. New severe erosive arthropathy of the second and third metatarsophalangeal joints. Differential diagnosis includes infection/septic arthritis versus other inflammatory arthritis. Cyrus Sears MD Foot X-Ray 12/20/17 0000 Signed Impressions: Service Date/Time: Wednesday, December 20, 2017 17:18 - CONCLUSION: 1. Bone erosions at the second and third metatarsal heads as well as at the base of the third proximal phalanx. Findings are suspicious for osteomyelitis in the proper clinical setting. 2. Nonspecific findings about the tarsometatarsal joints and talonavicular joint. 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 Cyrus Sears MD Objective Remarks GENERAL: Awake alert and oriented 3 talkative and cooperative SKIN: Warm and dry. Right lower extremity is dressed with below the knee amputation on the right that is dressed HEAD: Atraumatic. Normocephalic. EYES: Pupils equal and round. No scleral icterus. No injection or drainage. Extraocular muscles intact ENT: No nasal bleeding or discharge. Mucous membranes pink and moist. Tongue is midline NECK: Trachea midline. No JVD. Supple S1-S2 no S3 or S4 CARDIOVASCULAR: Regular rate and rhythm. RESPIRATORY: No accessory muscle use. Clear to auscultation. Breath sounds equal bilaterally. GASTROINTESTINAL: Abdomen soft, non-tender, nondistended. Hepatic and splenic margins not palpable. MUSCULOSKELETAL: Extremities without clubbing, cyanosis, or edema. No obvious deformities. NEUROLOGICAL: Awake and alert. No obvious cranial nerve deficits. Motor grossly within normal limits. Five out of 5 muscle strength in the arms and legs. Normal speech. Right below the knee amputation dressed PSYCHIATRIC: Appropriate mood and affect; insight and judgment normal. Procedures 12/17/17 bone biopsy, right foot 5-9 right below the knee amputation by Dr. Dr. Sanchez Medications and IVs Current Medications Piperacillin Sod/ Tazobactam Sod 100 ml @ 200 mls/hr ONCE STAT IV Last administered on 12/15/17at 19:54; Start 12/15/17 at 19:21; Stop 12/15/17 at 19:50 ; Status DC Vancomycin HCl 1000 mg/Sodium Chloride 250 ml @ 250 mls/hr ONCE STAT IV Last administered on 12/15/17at 20:48; Start 12/15/17 at 19:21; Stop 12/15/17 at 20:20 ; Status DC Sodium Chloride 1,000 ml @ 999 mls/hr BOLUS ONCE IV Last administered on 12/15at 20:58; Start 12/15/17 at 20:00; Stop 12/15/17 at 21:00; Status DC Ondansetron HCl (Zofran Inj) 4 mg ONCE ONCE IV PUSH Last administered on at 20:48; Start 12/15/17 at 20:00; Stop 12/15/17 at 20:01; Status DC Morphine Sulfate (Morphine Inj) 2 mg ONCE ONCE IV PUSH Last administered on at 20:50; Start 12/15/17 at 20:00; Stop 12/15/17 at 20:01; Status DC Pharmacy Profile Note 0 ml @ 0 mls/hr UNSCH OTHER ; Start 12/15/17 at 23:15; Stop 12/16/17 at 16:51; Status DC Vancomycin HCl 1000 mg/Sodium Chloride 250 ml @ 250 mls/hr Q12H IV ; Start 12/16 at 07:00; Stop 12/16/17 at 07:00; Status DC Piperacillin Sod/ Tazobactam Sod 50 ml @ 100 mls/hr Q6H IV Last administered on 12/16/17at 13:10; Start 12/16/17 at 02:00; Stop 12/16/17 at 16:51; Status DC Morphine Sulfate (Morphine Inj) 2 mg Q4H PRN IV PUSH BREAKTHROUGH PAIN Last administered on 12/25/17at 11:07; Start 12/15/17 at 23:15; Stop 12/25/17 at 11:33 ; Status DC Sodium Chloride 1,000 ml @ 80 mls/hr [id number] IV Last administered on 12/19/17at 02:34; Start 12/15/17 at 23:03; Stop 12/20/17 at 13:16; Status DC Sodium Chloride (NS Flush) 2 ml UNSCH PRN IV FLUSH FLUSH AFTER USING IV ACCESS ; Start 12/15/17 at 23:15 Sodium Chloride (NS Flush) 2 ml BID IV FLUSH Last administered on 12/31/17at 09: 05; Start 12/16/17 at 09:00 Acetaminophen (Tylenol) 650 mg Q4H PRN PO TEMP > 100.4; Start 12/15/17 at 23:15 Ondansetron HCl (Zofran Inj) 4 mg Q6H PRN IVP NAUSEA OR VOMITING; Start at 23:15 Naloxone HCl (Narcan Inj) 0.4 mg UNSCH PRN IV PUSH SEE LABEL COMMENTS; Start at 23:15 Senna/Docusate Sodium ([place]-Colace) 1 tab BID PO Last administered on at 20:46; Start 12/16/17 at 09:00 Magnesium Hydroxide (Milk Of Magnesia Liq) 30 ml Q12H PRN PO Mild constipation ; Start 12/15/17 at 23:15 Sennosides (Senokot) 17.2 mg Q12H PRN PO Moderate constipation; Start 12/15/17 at 23:15 Bisacodyl (Dulcolax Supp) 10 mg DAILY PRN RECTAL SEVERE CONSITIPATION/ IF NPO ; Start 12/15/17 at 23:15 Lactulose (Lactulose Liq) 30 ml DAILY PRN PO SEVERE CONSITIPATION/ IF PO; Start 12/15/17 at 23:15 Dextrose (D50w (Vial) Inj) 50 ml UNSCH PRN IV PUSH HYPOGLYCEMIA-SEE COMMENTS; Start 12/15/17 at 23:15 Glucagon (Glucagon Inj) 1 mg UNSCH PRN OTHER HYPOGLYCEMIA-SEE COMMENTS; Start 12/15/17 at 23:15 Insulin Aspart (NovoLOG SUPPLEMENTAL SCALE) 1 ACHS SLIDING SCALE SQ Last administered on 12/30/17at 13:32; Start 12/16/17 at 08:00 Fluconazole (Diflucan) 100 mg DAILY PO Last administered on 12/16/17at 08:35; Start 12/16/17 at 09:00; Stop 12/16/17 at 16:51; Status DC Furosemide (Lasix) 20 mg DAILY PO Last administered on 12/31/17at 09:06; Start 12/16/17 at 09:00 Gabapentin (Neurontin) 600 mg TID PO Last administered on 12/30/17at 11:57; Start 12/16/17 at 09:00; Stop 12/30/17 at 13:00; Status DC Pantoprazole Sodium (Protonix) 40 mg DAILY PO Last administered on 12/31/17at 09 :06; Start 12/16/17 at 09:00 Vancomycin HCl 1000 mg/Sodium Chloride 250 ml @ 250 mls/hr Q12H IV Last administered on 12/16/17at 13:10; Start 12/16/17 at 14:00; Stop 12/16/17 at 16:51; Status DC Miscellaneous Information ([facility] Ordered Lab Info) SPECIFIC LAB TO BE LUCERO... ONCE ONCE .XX ; Start 12/18/17 at 01:45; Stop 12/18/17 at 01:45; Status DC Collagenase (Santyl Oint) 1 applic DAILY TOPICAL Last administered on at 09:09; Start 12/18/17 at 09:00 Insulin Detemir (Levemir Inj) 10 units BID SQ Last administered on 12/31/17at 09 :00; Start 12/18/17 at 21:00 Oxycodone/ Acetaminophen (Percocet 5-325 Mg) 1 tab Q4H PRN PO PAIN SCALE 4 TO 10 Last administered on 12/28/17at 08:44; Start 12/20/17 at 13:15; Stop 12/28/17 at 10:47; Status DC Fluconazole/ Sodium Chloride 400 ml @ 100 mls/hr Q24H IV ; Start 12/20/17 at 22: 00; Stop 12/20/17 at 22:00; Status DC Cefazolin Sodium/ Dextrose 50 ml @ 100 mls/hr Q8H IV Last administered on 12/28at 15:15; Start 12/20/17 at 22:00; Stop 12/28/17 at 20:55; Status DC Fluconazole/ Sodium Chloride 400 ml @ 100 mls/hr Q24H IV Last administered on 12/25/17at 22:01; Start 12/20/17 at 23:00; Stop 12/25/17 at 22:57; Status DC Lactated Ringer's 1,000 ml @ 30 mls/hr Q24H PRN IV SEE LABEL COMMENTS; Start at 02:00; Stop 12/27/17 at 01:59; Status DC Sodium Chloride 500 ml @ 30 mls/hr [id number] PRN IV SEE LABEL COMMENTS; Start 12/24/17 at 02:00; Stop 12/27/17 at 01:59; Status DC Povidone Iodine (Betadine 5% Antisepsis Kit) 1 applic CARB[place] CUTTER PRN EACH NARE SEE LABEL COMMENTS; Start 12/24/17 at 02:00; Stop 12/27/17 at 01:59; Status DC Chlorhexidine Gluconate (Chlorhexidine 2% Cloth) 3 pack [place]UTTER PRN TOPICAL SEE LABEL COMMENTS; Start 12/24/17 at 02:00; Stop 12/27/17 at 01:59; Status DC Acetaminophen 100 ml @ As Directed STK-MED ONCE IV ; Start 12/24/17 at 15:25; Stop 12/24/17 at 15:26; Status DC Midazolam HCl (Versed Inj) 2 mg STK-MED ONCE .ROUTE ; Start 12/24/17 at 16:21; Stop 12/24/17 at 16:22; Status DC Fentanyl Citrate (fentaNYL INJ) 100 mcg STK-MED ONCE .ROUTE ; Start 12/24/17 at 16:22; Stop 12/24/17 at 16:23; Status DC Fentanyl Citrate (fentaNYL INJ) 100 mcg STK-MED ONCE .ROUTE ; Start 12/24/17 at 16:22; Stop 12/24/17 at 16:23; Status DC Meperidine HCl (Demerol Inj) 25 mg STK-MED ONCE .ROUTE Last administered on 12/24at 16:25; Start 12/24/17 at 16:25; Stop 12/24/17 at 16:26; Status DC Morphine Sulfate (*morphine INJ PERIprocedure ONLY) 10 mg STK-MED ONCE .ROUTE Last administered on 12/24/17at 16:41; Start 12/24/17 at 16:41; Stop 12/24/17 at 16: 42; Status DC Miscellaneous Information ([facility]) ALL NURSING DEPARTME... UNSCH PRN .XX SEE LABEL COMMENTS; Start 12/24/17 at 16:16; Stop 12/25/17 at 16: 15; Status DC Morphine Sulfate (Morphine Inj) 4 mg Q4HR PRN IV PUSH breakthru pain Last administered on 12/28/17at 10:30; Start 12/25/17 at 12:00; Stop 12/28/17 at 10:47 ; Status DC Fluconazole/ Sodium Chloride 200 ml @ 100 mls/hr Q24H IV Last administered on 12/28/17at 23:12; Start 12/26/17 at 23:00; Stop 12/29/17 at 16:01; Status DC Fluconazole/ Sodium Chloride 200 ml @ 100 mls/hr Q24H IV Last administered on 12/29/17at 00:47; Start 12/26/17 at 00:00; Stop 12/29/17 at 16:01; Status DC Lactated Ringer's 1,000 ml @ As Directed STK-MED ONCE IV ; Start 12/24/17 at 12: 00; Stop 12/26/17 at 11:26; Status DC Lidocaine HCl (Xylocaine-Mpf 1% Inj) 5 ml STK-MED ONCE OTHER ; Start 12/24/17 at 12:00; Stop 12/26/17 at 11:26; Status DC Rocuronium [place] (Zemuron Inj) 50 mg STK-MED ONCE IV PUSH ; Start 12/24/17 at 12:00; Stop 12/26/17 at 11:26; Status DC Neostigmine Methylsulfate (Prostigmine Inj) 5 mg STK-MED ONCE IV PUSH ; Start at 12:00; Stop 12/26/17 at 11:26; Status DC Glycopyrrolate (Robinul Inj) 1 mg STK-MED ONCE IV PUSH ; Start 12/24/17 at 12:00 ; Stop 12/26/17 at 11:26; Status DC Phenylephrine HCl (Neosynephrine/ NS 1000 Mcg/10ml Syr) 1,000 mcg STK-MED ONCE IV ; Start 12/24/17 at 12:00; Stop 12/26/17 at 11:26; Status DC Ephedrine Sulfate (ePHEDrine/NS 25 MG/5 ML SYR) 25 mg STK-MED ONCE IV ; Start at 12:00; Stop 12/26/17 at 11:26; Status DC Dexamethasone Sodium Phosphate (Decadron Inj) 4 mg STK-MED ONCE IV ; Start at 12:00; Stop 12/26/17 at 11:26; Status DC Ondansetron HCl (Zofran Inj) 4 mg STK-MED ONCE IV PUSH ; Start 12/24/17 at 12:00 ; Stop 12/26/17 at 11:26; Status DC Propofol (Diprivan 200 Mg/20 ml Inj) 200 mg STK-MED ONCE IV ; Start 12/24/17 at 12:00; Stop 12/26/17 at 11:26; Status DC Oxycodone/ Acetaminophen (Percocet 7.5-325 Mg) 1 tab Q6H PRN PO pain Last administered on 12/29/17at 07:32; Start 12/28/17 at 10:45; Stop 12/29/17 at 11:46 ; Status DC Morphine Sulfate (Morphine Inj) 4 mg Q4H PRN IV PUSH dressing chge/BREAKTHRU PAIN Last administered on 12/29/17at 10:21; Start 12/28/17 at 11:15; Stop at 11:38; Status DC Lidocaine HCl (Lidoderm 5% Patch.12 Hr) 1 patch DAILY T-DERMAL Last administered on 12/31/17at 09:05; Start 12/28/17 at 12:00 Cefazolin Sodium 2000 mg/Sodium Chloride 100 ml @ 200 mls/hr Q8H IV Last administered on 12/29/17at 12:19; Start 12/28/17 at 22:00; Stop 12/29/17 at 16:01 ; Status DC Morphine Sulfate (Msir) 15 mg Q4H PRN PO pain Last administered on 12/31/17at 10 :07; Start 12/29/17 at 12:00 Morphine Sulfate (Morphine Inj) 4 mg DAILY PRN IV PUSH dressing change Last administered on 12/30/17at 11:56; Start 12/29/17 at 13:00 Sodium Chloride 1,000 ml @ 999 mls/hr BOLUS ONCE IV Last administered on 12/29at 21:36; Start 12/29/17 at 19:15; Stop 12/29/17 at 20:15; Status DC Pharmacy Profile Note 0 ml @ 0 mls/hr UNSCH OTHER ; Start 12/29/17 at 19:15 Cefepime HCl 2000 mg/Sodium Chloride 100 ml @ 200 mls/hr Q8H IV Last administered on 12/31/17at 05:00; Start 12/29/17 at 20:00 Vancomycin HCl 1000 mg/Sodium Chloride 250 ml @ 250 mls/hr Q12H IV Last administered on 12/31/17at 09:04; Start 12/29/17 at 21:00 Miscellaneous Information ([facility] Ordered Lab Info) SPECIFIC LAB TO BE DRAWN:[facility]... ONCE ONCE .XX Last administered on 12/31/17at 08:45; Start at 08:45; Stop 12/31/17 at 08:46; Status DC Gabapentin (Neurontin) 800 mg TID PO Last administered on 12/31/17at 09:06; Start 12/30/17 at 13:00 Enoxaparin Sodium (Lovenox Inj) 30 mg Q12H SQ Last administered on 12/31/17at 06 :16; Start 12/30/17 at 18:00 A/P Assessment and Plan New onset sepsis -blood cultures were drawn yesterday, lactic acid is within normal limits, chest x-ray which I independently reviewed is negative for any obvious acute infiltrates. 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 Stop by infectious disease again - Lipitor Right leg pain -We will increase gabapentin from 600-800 mg 3 times daily Diabetes mellitus - Continue Levemir. Continue sliding scale insulin coverage. Anemia: - S/P GI workup during last hospitalization (showed gastritis, hemorrhoids). H& H stable. Continue PPI. DVT prophylaxis: starting lovenox Discharge Planning Possible [facility] versus SNF versus other needs safe discharge VS HOME WITH FRIEND/FAMILY Tu Galvez DO December 31, 2017 10:30
[2017-12-31 12:03] VITALS: BP 139/70; PULSE 93; RESP 17; TEMP 98.9; O2SAT 100
[2017-12-31 16:03] VITALS: BP 130/74; PULSE 91; RESP 18; TEMP 98.8; O2SAT 99
[2017-12-31] MEDS: MORPHINE SULFATE 4 MG/ML INJ IV PUSH PRN (16:56)
[2017-12-31 21:03] VITALS: BP 131/67; PULSE 88; RESP 16; TEMP 98.7; O2SAT 97
[2018-01-01] MEDS: MORPHINE SULFATE 15 MG TAB PO PRN ×6 (00:06→20:15)
[2018-01-01 00:15] VITALS: BP 117/66; PULSE 85; RESP 16; TEMP 97.9; O2SAT 96
[2018-01-01 04:33] VITALS: BP 122/68; PULSE 83; RESP 16; TEMP 98.3; O2SAT 98
[2018-01-01] MEDS: ENOXAPARIN SODIUM 30 MG/0.3 ML SYRINGE SQ SCH ×2 (05:52→17:03)
[2018-01-01 07:24] LABS: AUTOMATED NEUTROPHIL # 3.2 TH/MM3 (1.8-7.7); BASOPHIL # 0.1 TH/MM3 (0-0.2); BASOPHIL % 1.4 % (0.0-2.0); EOSINOPHIL # 0.8 TH/MM3 (0-0.4); EOSINOPHIL % 12.9 % (0.0-4.0); HEMOGLOBIN 7.6 GM/DL (13.0-17.0); LYMPH % 25.4 % (9.0-44.0); LYMPHOCYTE # 1.6 TH/MM3 (1.0-4.8); MEAN CELL VOLUME 73.6 FL (80.0-100.0); MEAN CORPUSCULAR HEMOGLOBIN 24.2 PG (27.0-34.0); MEAN CORPUSCULAR HGB CONC 32.9 % (32.0-36.0); MEAN PLATELET VOLUME 7.8 FL (7.0-11.0); MONO % 8.2 % (0.0-8.0); MONOCYTE # 0.5 TH/MM3 (0-0.9); NEUT % 52.1 % (16.0-70.0); PLATELET COUNT 410 TH/MM3 (150-450); RED BLOOD COUNT 3.13 MIL/MM3 (4.50-5.90); RED CELL DISTRIBUTION WIDTH 17.8 % (11.6-17.2); WHITE BLOOD COUNT 6.2 TH/MM3 (4.0-11.0)
[2018-01-01 07:41] LABS: ALBUMIN 2.4 GM/DL (3.4-5.0); AST (GOT) 29 U/L (15-37); BICARBONATE 27.4 MEQ/L (21.0-32.0); BLOOD UREA NITROGEN 22 MG/DL (7-18); CALCIUM 9.8 MG/DL (8.5-10.1); CHLORIDE 99 MEQ/L (98-107); CREATININE 0.77 MG/DL (0.60-1.30); GLOMERULAR FILTRATION RATE 103 ML/MIN (>89); GLUCOSE,RANDOM 108 MG/DL (74-106); MAGNESIUM 1.9 MG/DL (1.5-2.5); SODIUM (NA) 137 MEQ/L (136-145)
[2018-01-01 07:53] LABS: ALKALINE PHOSPHATASE 178 U/L (45-117); ALT (GPT) 25 U/L (12-78); FREE T4 0.95 NG/DL (0.76-1.46); PHOSPHORUS 3.4 MG/DL (2.5-4.9); TOTAL BILIRUBIN ADULT 0.2 MG/DL (0.2-1.0); TOTAL PROTEIN 7.9 GM/DL (6.4-8.2)
[2018-01-01] MEDS: INSULIN ASPART SUPPLEMENTAL SCALE SQ SCH ×4 (08:00→20:19)
[2018-01-01] MEDS: FUROSEMIDE 20 MG TAB PO SCH (08:34)
[2018-01-01] MEDS: DOCUSATE SODIUM 50 MG/SENNA 8.6 MG TAB PO SCH ×2 (08:35→20:19)
[2018-01-01] MEDS: GABAPENTIN 400 MG CAP PO SCH ×3 (08:35→17:02)
[2018-01-01] MEDS: LIDOCAINE HCL 5% PATCH T-DERMAL SCH (08:35)
[2018-01-01] MEDS: PANTOPRAZOLE SOD 40 MG DELAYED RELEASE TAB PO SCH (08:35)
[2018-01-01] MEDS: INSULIN DETEMIR 100 UNITS/ML VIAL SQ SCH ×2 (08:35→20:20)
[2018-01-01] MEDS: SODIUM CHLORIDE 0.9% FLUSH 10 ML FLUSH IV FLUSH SCH ×2 (08:36→20:19)
[2018-01-01 08:50] VITALS: BP 103/60; PULSE 87; RESP 17; TEMP 98.1; O2SAT 97
[2018-01-01] MEDS: COLLAGENASE OINT 30 GM TUBE TOPICAL SCH (10:51)
[2018-01-01 12:00] VITALS: BP 133/77; PULSE 90; RESP 18; TEMP 98.4; O2SAT 97
--- NOTE | 2018-01-01 14:22 | HHI.PR ---
Subjective Remarks 15 RN denies any deteriorations since last night. Patient himself has noted that I have deescalated him from 2 narcotic medications down to 1 narcotic medication. Says that when he was participating with physical therapy sometime yesterday he felt a snapping-like sensation in his right lower extremity stump with some increased pain that went away. [address] RN AND PT AND CASE MANAGEMENT WILL NEED SAFE PLACEMENT AT DC No new complaints on the right lower extremity Discussed with RN and patient CONTINUE ON IV ANTIBIOTICS PER ID VANCO AND CEFEPIME 01-01 HOPEFULLY TO HOME TOMORROW WITH FAMILY DW RN AND PT AND CM NO NEW COMPLAINTS DC HOME TOMORROW Objective Vitals Vital Signs Date Time Temp Pulse Resp B/P (MAP) Pulse Ox O2 Delivery O2 Flow Rate FiO2 01/01/18 12:00 98.4 90 18 133/77 (95) 97 01/01/18 08:50 98.1 87 17 103/60 (74) 97 01/01/18 05:59 Room Air 01/01/18 04:33 98.3 83 16 122/68 (86) 98 01/01/18 00:15 97.9 85 16 117/66 (83) 96 01/01/18 00:00 Room Air 12/31/17 21:03 98.7 88 16 131/67 (88) 97 12/31/17 20:00 Room Air 12/31/17 18:09 99 Room Air 12/31/17 16:03 98.8 91 18 130/74 (92) 99 I/O 12/31/17 12/31/17 12/31/17 01/01/18 01/01/18 01/01/18 07:00 15:00 23:00 07:00 15:00 23:00 Intake Total 610 ml 600 ml 1440 ml Output Total 1100 ml 800 ml 1675 ml Balance -490 ml -200 ml -235 ml Intake Oral 510 ml 600 ml 1440 ml IV Total 100 ml Output Urine Total 1100 ml 800 ml 1675 ml # Bowel Movements 0 1 0 Result Diagram: 01/01/18 0650 01/01/18 0650 Other Results Laboratory Tests Test 12/29/17 19:49 12/30/17 01:48 12/30/17 09:00 12/31/17 07:45 White Blood Count 12.6 TH/MM3 6.7 TH/MM3 Red Blood Count 3.09 MIL/MM3 2.96 MIL/MM3 Hemoglobin 7.2 GM/DL 7.1 GM/DL Hematocrit 23.1 % 21.8 % Mean Corpuscular Volume 74.9 FL 73.7 FL Mean Corpuscular Hemoglobin 23.4 PG 24.1 PG Mean Corpuscular Hemoglobin Concent 31.3 % 32.6 % Red Cell Distribution Width 18.4 % 18.6 % Platelet Count 420 TH/MM3 409 TH/MM3 Mean Platelet Volume 8.0 FL 7.3 FL Neutrophils (%) (Auto) 65.2 % 60.2 % Lymphocytes (%) (Auto) 23.5 % 23.6 % Monocytes (%) (Auto) 6.0 % 8.4 % Eosinophils (%) (Auto) 4.0 % 6.9 % Basophils (%) (Auto) 1.3 % 0.9 % Neutrophils # (Auto) 8.2 TH/MM3 4.0 TH/MM3 Lymphocytes # (Auto) 3.0 TH/MM3 1.6 TH/MM3 Monocytes # (Auto) 0.8 TH/MM3 0.6 TH/MM3 Eosinophils # (Auto) 0.5 TH/MM3 0.5 TH/MM3 Basophils # (Auto) 0.2 TH/MM3 0.1 TH/MM3 CBC Comment DIFF FINAL DIFF FINAL Differential Comment Hematology Comments Lactic Acid Level 0.6 mmol/L Urine Color LIGHT-YELLOW Urine Turbidity CLEAR Urine pH 6.5 Urine Specific [place] 1.010 Urine Protein 30 mg/dL Urine Glucose (UA) NEG mg/dL Urine Ketones NEG mg/dL Urine Occult Blood TRACE Urine Nitrite NEG Urine Bilirubin NEG Urine Urobilinogen LESS THAN 2.0 MG/DL Urine Leukocyte Esterase NEG Urine RBC 5 /hpf Urine WBC 1 /hpf Urine Bacteria RARE /hpf Microscopic Urinalysis Comment CULT NOT INDICATED Creatinine 0.71 MG/DL Estimat Glomerular Filtration Rate 114 ML/MIN Vancomycin Level Trough 18.0 MCG/ML Test 01/01/18 06:50 White Blood Count 6.2 TH/MM3 Red Blood Count 3.13 MIL/MM3 Hemoglobin 7.6 GM/DL Hematocrit 23.0 % Mean Corpuscular Volume 73.6 FL Mean Corpuscular Hemoglobin 24.2 PG Mean Corpuscular Hemoglobin Concent 32.9 % Red Cell Distribution Width 17.8 % Platelet Count 410 TH/MM3 Mean Platelet Volume 7.8 FL Neutrophils (%) (Auto) 52.1 % Lymphocytes (%) (Auto) 25.4 % Monocytes (%) (Auto) 8.2 % Eosinophils (%) (Auto) 12.9 % Basophils (%) (Auto) 1.4 % Neutrophils # (Auto) 3.2 TH/MM3 Lymphocytes # (Auto) 1.6 TH/MM3 Monocytes # (Auto) 0.5 TH/MM3 Eosinophils # (Auto) 0.8 TH/MM3 Basophils # (Auto) 0.1 TH/MM3 CBC Comment DIFF FINAL Differential Comment Blood Urea Nitrogen 22 MG/DL Creatinine 0.77 MG/DL Random Glucose 108 MG/DL Total Protein 7.9 GM/DL Albumin 2.4 GM/DL Calcium Level 9.8 MG/DL Phosphorus Level 3.4 MG/DL Magnesium Level 1.9 MG/DL Alkaline Phosphatase 178 U/L Aspartate Amino Transf (AST/SGOT) 29 U/L Alanine Aminotransferase (ALT/SGPT) 25 U/L Total Bilirubin 0.2 MG/DL Sodium Level 137 MEQ/L Potassium Level 4.3 MEQ/L Chloride Level 99 MEQ/L Carbon Dioxide Level 27.4 MEQ/L Anion Gap 11 MEQ/L Estimat Glomerular Filtration Rate 103 ML/MIN Free Thyroxine 0.95 NG/DL Thyroid Stimulating Hormone 3rd Gen 1.450 uIU/ML Imaging Last Impressions Upper Extremity Ultrasound 12/30/17 0000 Signed Impressions: Service Date/Time: Saturday, December 30, 2017 09:52 - CONCLUSION: 1. No sonographic evidence for right upper extremity DVT. Lupillo Webster MD Lower Extremity Ultrasound 12/30/17 0000 Signed Impressions: Service Date/Time: Saturday, December 30, 2017 10:04 - CONCLUSION: Normal examination. Stewart Alberts MD Chest X-Ray 12/29/17 0000 Signed Impressions: Service Date/Time: Friday, December 29, 2017 20:30 - CONCLUSION: No acute disease. Wm Riley MD Foot MRI 12/21/17 0000 Signed Impressions: Service Date/Time: Thursday, December 21, 2017 16:13 - CONCLUSION: 1. Cutaneous ulceration at the lateral mid foot with adjacent severe fourth metatarsal base bony abnormality and cuboid bony abnormality indicating osteomyelitis in the proper clinical setting. 2. Severe, increased bony abnormality about the navicular cuneiform joints, talonavicular joint, and the second and third tarsometatarsal joints. Not immediately contiguous with the cutaneous ulceration. May represent osteomyelitis or worsening neuropathic osteoarthropathy. 3. New severe erosive arthropathy of the second and third metatarsophalangeal joints. Differential diagnosis includes infection/septic arthritis versus other inflammatory arthritis. Cyrus Sears MD Foot X-Ray 12/20/17 0000 Signed Impressions: Service Date/Time: Wednesday, December 20, 2017 17:18 - CONCLUSION: 1. Bone erosions at the second and third metatarsal heads as well as at the base of the third proximal phalanx. Findings are suspicious for osteomyelitis in the proper clinical setting. 2. Nonspecific findings about the tarsometatarsal joints and talonavicular joint. 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 Cyrus Sears MD Objective Remarks GENERAL: Awake alert and oriented 3 talkative and cooperative SKIN: Warm and dry. Right lower extremity is dressed with below the knee amputation on the right that is dressed HEAD: Atraumatic. Normocephalic. EYES: Pupils equal and round. No scleral icterus. No injection or drainage. Extraocular muscles intact ENT: No nasal bleeding or discharge. Mucous membranes pink and moist. Tongue is midline NECK: Trachea midline. No JVD. Supple S1-S2 no S3 or S4 CARDIOVASCULAR: Regular rate and rhythm. RESPIRATORY: No accessory muscle use. Clear to auscultation. Breath sounds equal bilaterally. GASTROINTESTINAL: Abdomen soft, non-tender, nondistended. Hepatic and splenic margins not palpable. MUSCULOSKELETAL: Extremities without clubbing, cyanosis, or edema. No obvious deformities. NEUROLOGICAL: Awake and alert. No obvious cranial nerve deficits. Motor grossly within normal limits. Five out of 5 muscle strength in the arms and legs. Normal speech. Right below the knee amputation dressed PSYCHIATRIC: Appropriate mood and affect; insight and judgment normal. Procedures 12/17/17 bone biopsy, right foot 5-9 right below the knee amputation by Dr. Dr. Sanchez Medications and IVs Current Medications Piperacillin Sod/ Tazobactam Sod 100 ml @ 200 mls/hr ONCE STAT IV Last administered on 12/15/17at 19:54; Start 12/15/17 at 19:21; Stop 12/15/17 at 19:50 ; Status DC Vancomycin HCl 1000 mg/Sodium Chloride 250 ml @ 250 mls/hr ONCE STAT IV Last administered on 12/15/17at 20:48; Start 12/15/17 at 19:21; Stop 12/15/17 at 20:20 ; Status DC Sodium Chloride 1,000 ml @ 999 mls/hr BOLUS ONCE IV Last administered on 12/15at 20:58; Start 12/15/17 at 20:00; Stop 12/15/17 at 21:00; Status DC Ondansetron HCl (Zofran Inj) 4 mg ONCE ONCE IV PUSH Last administered on at 20:48; Start 12/15/17 at 20:00; Stop 12/15/17 at 20:01; Status DC Morphine Sulfate (Morphine Inj) 2 mg ONCE ONCE IV PUSH Last administered on at 20:50; Start 12/15/17 at 20:00; Stop 12/15/17 at 20:01; Status DC Pharmacy Profile Note 0 ml @ 0 mls/hr UNSCH OTHER ; Start 12/15/17 at 23:15; Stop 12/16/17 at 16:51; Status DC Vancomycin HCl 1000 mg/Sodium Chloride 250 ml @ 250 mls/hr Q12H IV ; Start 12/16 at 07:00; Stop 12/16/17 at 07:00; Status DC Piperacillin Sod/ Tazobactam Sod 50 ml @ 100 mls/hr Q6H IV Last administered on 12/16/17at 13:10; Start 12/16/17 at 02:00; Stop 12/16/17 at 16:51; Status DC Morphine Sulfate (Morphine Inj) 2 mg Q4H PRN IV PUSH BREAKTHROUGH PAIN Last administered on 12/25/17at 11:07; Start 12/15/17 at 23:15; Stop 12/25/17 at 11:33 ; Status DC Sodium Chloride 1,000 ml @ 80 mls/hr [id number] IV Last administered on 12/19/17at 02:34; Start 12/15/17 at 23:03; Stop 12/20/17 at 13:16; Status DC Sodium Chloride (NS Flush) 2 ml UNSCH PRN IV FLUSH FLUSH AFTER USING IV ACCESS ; Start 12/15/17 at 23:15 Sodium Chloride (NS Flush) 2 ml BID IV FLUSH Last administered on 01/01/18at 08: 36; Start 12/16/17 at 09:00 Acetaminophen (Tylenol) 650 mg Q4H PRN PO TEMP > 100.4; Start 12/15/17 at 23:15 Ondansetron HCl (Zofran Inj) 4 mg Q6H PRN IVP NAUSEA OR VOMITING; Start at 23:15 Naloxone HCl (Narcan Inj) 0.4 mg UNSCH PRN IV PUSH SEE LABEL COMMENTS; Start at 23:15 Senna/Docusate Sodium ([place]-Colace) 1 tab BID PO Last administered on at 20:25; Start 12/16/17 at 09:00 Magnesium Hydroxide (Milk Of Magnesia Liq) 30 ml Q12H PRN PO Mild constipation ; Start 12/15/17 at 23:15 Sennosides (Senokot) 17.2 mg Q12H PRN PO Moderate constipation; Start 12/15/17 at 23:15 Bisacodyl (Dulcolax Supp) 10 mg DAILY PRN RECTAL SEVERE CONSITIPATION/ IF NPO ; Start 12/15/17 at 23:15 Lactulose (Lactulose Liq) 30 ml DAILY PRN PO SEVERE CONSITIPATION/ IF PO; Start 12/15/17 at 23:15 Dextrose (D50w (Vial) Inj) 50 ml UNSCH PRN IV PUSH HYPOGLYCEMIA-SEE COMMENTS; Start 12/15/17 at 23:15 Glucagon (Glucagon Inj) 1 mg UNSCH PRN OTHER HYPOGLYCEMIA-SEE COMMENTS; Start 12/15/17 at 23:15 Insulin Aspart (NovoLOG SUPPLEMENTAL SCALE) 1 ACHS SLIDING SCALE SQ Last administered on 01/01/18at 12:39; Start 12/16/17 at 08:00 Fluconazole (Diflucan) 100 mg DAILY PO Last administered on 12/16/17at 08:35; Start 12/16/17 at 09:00; Stop 12/16/17 at 16:51; Status DC Furosemide (Lasix) 20 mg DAILY PO Last administered on 01/01/18at 08:34; Start 12/16/17 at 09:00 Gabapentin (Neurontin) 600 mg TID PO Last administered on 12/30/17at 11:57; Start 12/16/17 at 09:00; Stop 12/30/17 at 13:00; Status DC Pantoprazole Sodium (Protonix) 40 mg DAILY PO Last administered on 01/01/18at 08 :35; Start 12/16/17 at 09:00 Vancomycin HCl 1000 mg/Sodium Chloride 250 ml @ 250 mls/hr Q12H IV Last administered on 12/16/17at 13:10; Start 12/16/17 at 14:00; Stop 12/16/17 at 16:51; Status DC Miscellaneous Information ([facility] [place] [facility] Ordered Lab Info) SPECIFIC LAB TO BE LUCERO... ONCE ONCE .XX ; Start 12/18/17 at 01:45; Stop 12/18/17 at 01:45; Status DC Collagenase (Santyl Oint) 1 applic DAILY TOPICAL Last administered on at 10:51; Start 12/18/17 at 09:00 Insulin Detemir (Levemir Inj) 10 units BID SQ Last administered on 01/01/18at 08 :35; Start 12/18/17 at 21:00 Oxycodone/ Acetaminophen (Percocet 5-325 Mg) 1 tab Q4H PRN PO PAIN SCALE 4 TO 10 Last administered on 12/28/17at 08:44; Start 12/20/17 at 13:15; Stop 12/28/17 at 10:47; Status DC Fluconazole/ Sodium Chloride 400 ml @ 100 mls/hr Q24H IV ; Start 12/20/17 at 22: 00; Stop 12/20/17 at 22:00; Status DC Cefazolin Sodium/ Dextrose 50 ml @ 100 mls/hr Q8H IV Last administered on 12/28at 15:15; Start 12/20/17 at 22:00; Stop 12/28/17 at 20:55; Status DC Fluconazole/ Sodium Chloride 400 ml @ 100 mls/hr Q24H IV Last administered on 12/25/17at 22:01; Start 12/20/17 at 23:00; Stop 12/25/17 at 22:57; Status DC Lactated Ringer's 1,000 ml @ 30 mls/hr Q24H PRN IV SEE LABEL COMMENTS; Start at 02:00; Stop 12/27/17 at 01:59; Status DC Sodium Chloride 500 ml @ 30 mls/hr [id number] PRN IV SEE LABEL COMMENTS; Start 12/24/17 at 02:00; Stop 12/27/17 at 01:59; Status DC Povidone Iodine (Betadine 5% Antisepsis Kit) 1 applic SHEEP SHEARER PRN EACH NARE SEE LABEL COMMENTS; Start 12/24/17 at 02:00; Stop 12/27/17 at 01:59; Status DC Chlorhexidine Gluconate (Chlorhexidine 2% Cloth) 3 pack SHEEP SHEARER PRN TOPICAL SEE LABEL COMMENTS; Start 12/24/17 at 02:00; Stop 12/27/17 at 01:59; Status DC Acetaminophen 100 ml @ As Directed STK-MED ONCE IV ; Start 12/24/17 at 15:25; Stop 12/24/17 at 15:26; Status DC Midazolam HCl (Versed Inj) 2 mg STK-MED ONCE .ROUTE ; Start 12/24/17 at 16:21; Stop 12/24/17 at 16:22; Status DC Fentanyl Citrate (fentaNYL INJ) 100 mcg STK-MED ONCE .ROUTE ; Start 12/24/17 at 16:22; Stop 12/24/17 at 16:23; Status DC Fentanyl Citrate (fentaNYL INJ) 100 mcg STK-MED ONCE .ROUTE ; Start 12/24/17 at 16:22; Stop 12/24/17 at 16:23; Status DC Meperidine HCl (Demerol Inj) 25 mg STK-MED ONCE .ROUTE Last administered on 12/24at 16:25; Start 12/24/17 at 16:25; Stop 12/24/17 at 16:26; Status DC Morphine Sulfate (*morphine INJ PERIprocedure ONLY) 10 mg STK-MED ONCE .ROUTE Last administered on 12/24/17at 16:41; Start 12/24/17 at 16:41; Stop 12/24/17 at 16: 42; Status DC Miscellaneous Information ([facility] [place] [facility] Nursing Information) ALL NURSING DEPARTME... UNSCH PRN .XX SEE LABEL COMMENTS; Start 12/24/17 at 16:16; Stop 12/25/17 at 16: 15; Status DC Morphine Sulfate (Morphine Inj) 4 mg Q4HR PRN IV PUSH breakthru pain Last administered on 12/28/17at 10:30; Start 12/25/17 at 12:00; Stop 12/28/17 at 10:47 ; Status DC Fluconazole/ Sodium Chloride 200 ml @ 100 mls/hr Q24H IV Last administered on 12/28/17at 23:12; Start 12/26/17 at 23:00; Stop 12/29/17 at 16:01; Status DC Fluconazole/ Sodium Chloride 200 ml @ 100 mls/hr Q24H IV Last administered on 12/29/17at 00:47; Start 12/26/17 at 00:00; Stop 12/29/17 at 16:01; Status DC Lactated Ringer's 1,000 ml @ As Directed STK-MED ONCE IV ; Start 12/24/17 at 12: 00; Stop 12/26/17 at 11:26; Status DC Lidocaine HCl (Xylocaine-Mpf 1% Inj) 5 ml STK-MED ONCE OTHER ; Start 12/24/17 at 12:00; Stop 12/26/17 at 11:26; Status DC Rocuronium Twisp (Zemuron Inj) 50 mg STK-MED ONCE IV PUSH ; Start 12/24/17 at 12:00; Stop 12/26/17 at 11:26; Status DC Neostigmine Methylsulfate (Prostigmine Inj) 5 mg STK-MED ONCE IV PUSH ; Start at 12:00; Stop 12/26/17 at 11:26; Status DC Glycopyrrolate (Robinul Inj) 1 mg STK-MED ONCE IV PUSH ; Start 12/24/17 at 12:00 ; Stop 12/26/17 at 11:26; Status DC Phenylephrine HCl (Neosynephrine/ NS 1000 Mcg/10ml Syr) 1,000 mcg STK-MED ONCE IV ; Start 12/24/17 at 12:00; Stop 12/26/17 at 11:26; Status DC Ephedrine Sulfate (ePHEDrine/NS 25 MG/5 ML SYR) 25 mg STK-MED ONCE IV ; Start at 12:00; Stop 12/26/17 at 11:26; Status DC Dexamethasone Sodium Phosphate (Decadron Inj) 4 mg STK-MED ONCE IV ; Start at 12:00; Stop 12/26/17 at 11:26; Status DC Ondansetron HCl (Zofran Inj) 4 mg STK-MED ONCE IV PUSH ; Start 12/24/17 at 12:00 ; Stop 12/26/17 at 11:26; Status DC Propofol (Diprivan 200 Mg/20 ml Inj) 200 mg STK-MED ONCE IV ; Start 12/24/17 at 12:00; Stop 12/26/17 at 11:26; Status DC Oxycodone/ Acetaminophen (Percocet 7.5-325 Mg) 1 tab Q6H PRN PO pain Last administered on 12/29/17at 07:32; Start 12/28/17 at 10:45; Stop 12/29/17 at 11:46 ; Status DC Morphine Sulfate (Morphine Inj) 4 mg Q4H PRN IV PUSH dressing chge/BREAKTHRU PAIN Last administered on 12/29/17at 10:21; Start 12/28/17 at 11:15; Stop at 11:38; Status DC Lidocaine HCl (Lidoderm 5% Patch.12 Hr) 1 patch DAILY T-DERMAL Last administered on 01/01/18at 08:35; Start 12/28/17 at 12:00 Cefazolin Sodium 2000 mg/Sodium Chloride 100 ml @ 200 mls/hr Q8H IV Last administered on 12/29/17at 12:19; Start 12/28/17 at 22:00; Stop 12/29/17 at 16:01 ; Status DC Morphine Sulfate (Msir) 15 mg Q4H PRN PO pain Last administered on 01/01/18at 12 :39; Start 12/29/17 at 12:00 Morphine Sulfate (Morphine Inj) 4 mg DAILY PRN IV PUSH dressing change Last administered on 12/31/17at 16:56; Start 12/29/17 at 13:00 Sodium Chloride 1,000 ml @ 999 mls/hr BOLUS ONCE IV Last administered on 12/29at 21:36; Start 12/29/17 at 19:15; Stop 12/29/17 at 20:15; Status DC Pharmacy Profile Note 0 ml @ 0 mls/hr UNSCH OTHER ; Start 12/29/17 at 19:15; Stop 12/31/17 at 15:24; Status DC Cefepime HCl 2000 mg/Sodium Chloride 100 ml @ 200 mls/hr Q8H IV Last administered on 12/31/17at 12:37; Start 12/29/17 at 20:00; Stop 12/31/17 at 15:24 ; Status DC Vancomycin HCl 1000 mg/Sodium Chloride 250 ml @ 250 mls/hr Q12H IV Last administered on 12/31/17at 09:04; Start 12/29/17 at 21:00; Stop 12/31/17 at 15:24 ; Status DC Miscellaneous Information ([facility] [place] [facility] Ordered Lab Info) SPECIFIC LAB TO BE DRAWN:VA... ONCE ONCE .XX Last administered on 12/31/17at 08:45; Start at 08:45; Stop 12/31/17 at 08:46; Status DC Gabapentin (Neurontin) 800 mg TID PO Last administered on 01/01/18at 12:39; Start 12/30/17 at 13:00 Enoxaparin Sodium (Lovenox Inj) 30 mg Q12H SQ Last administered on 01/01/18at 05 :52; Start 12/30/17 at 18:00 Miscellaneous Information ([facility] [place] [facility] Ordered Lab Info) SPECIFIC LAB TO BE DRAWN:VANCOMYCIN TROUGH DATE TO... ONCE ONCE .XX ; Start 01/02/18 at 08:45; Stop 01/02/18 at 08:46; Status Cancel A/P Assessment and Plan New onset sepsis -blood cultures were drawn yesterday, lactic acid is within normal limits, chest x-ray which I independently reviewed is negative for any obvious acute infiltrates. 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 Stop by infectious disease again - Lipitor Right leg pain -We will increase gabapentin from 600-800 mg 3 times daily Diabetes mellitus - Continue Levemir. Continue sliding scale insulin coverage. Anemia: - S/P GI workup during last hospitalization (showed gastritis, hemorrhoids). H& H stable. Continue PPI. DVT prophylaxis: starting lovenox Discharge Planning DC TO HOME TOMORROW Tu Galvez DO January 01, 2018 14:22
[2018-01-01 16:00] VITALS: BP 129/62; PULSE 93; RESP 18; TEMP 98.1; O2SAT 96
[2018-01-01] MEDS: MORPHINE SULFATE 4 MG/ML INJ IV PUSH PRN (17:10)
[2018-01-01 20:51] VITALS: BP 108/59; PULSE 91; RESP 20; TEMP 99.1; O2SAT 98
[2018-01-02 00:59] VITALS: BP 127/65; PULSE 84; RESP 20; TEMP 98; O2SAT 96
[2018-01-02] MEDS: MORPHINE SULFATE 15 MG TAB PO PRN ×5 (04:19→16:08)
[2018-01-02 04:59] VITALS: BP 119/67; PULSE 89; RESP 20; TEMP 98.1; O2SAT 99
[2018-01-02] MEDS: ENOXAPARIN SODIUM 30 MG/0.3 ML SYRINGE SQ SCH (06:00)
[2018-01-02 06:46] LABS: BASOPHIL # 0.1 TH/MM3 (0-0.2); EOSINOPHIL # 0.8 TH/MM3 (0-0.4); EOSINOPHIL % 12.6 % (0.0-4.0); HEMATOCRIT 24.8 % (39.0-51.0); HEMOGLOBIN 8.1 GM/DL (13.0-17.0); LYMPH % 30.6 % (9.0-44.0); LYMPHOCYTE # 1.9 TH/MM3 (1.0-4.8); MEAN CELL VOLUME 73.7 FL (80.0-100.0); MEAN CORPUSCULAR HGB CONC 32.6 % (32.0-36.0); MEAN PLATELET VOLUME 7.8 FL (7.0-11.0); MONO % 8.6 % (0.0-8.0); MONOCYTE # 0.5 TH/MM3 (0-0.9); NEUT % 47.2 % (16.0-70.0); PLATELET COUNT 503 TH/MM3 (150-450); RED BLOOD COUNT 3.36 MIL/MM3 (4.50-5.90); RED CELL DISTRIBUTION WIDTH 18.5 % (11.6-17.2); WHITE BLOOD COUNT 6.3 TH/MM3 (4.0-11.0)
[2018-01-02 07:05] LABS: ALBUMIN 2.6 GM/DL (3.4-5.0); ALT (GPT) 26 U/L (12-78); AST (GOT) 24 U/L (15-37); BICARBONATE 29.6 MEQ/L (21.0-32.0); BLOOD UREA NITROGEN 25 MG/DL (7-18); CHLORIDE 97 MEQ/L (98-107); CREATININE 0.85 MG/DL (0.60-1.30); GLOMERULAR FILTRATION RATE 92 ML/MIN (>89); GLUCOSE,RANDOM 106 MG/DL (74-106); MAGNESIUM 2.1 MG/DL (1.5-2.5); PHOSPHORUS 3.3 MG/DL (2.5-4.9); SODIUM (NA) 135 MEQ/L (136-145)
[2018-01-02 07:07] LABS: ALKALINE PHOSPHATASE 187 U/L (45-117); TOTAL BILIRUBIN ADULT 0.2 MG/DL (0.2-1.0); TOTAL PROTEIN 8.4 GM/DL (6.4-8.2)
[2018-01-02] MEDS: SODIUM CHLORIDE 0.9% FLUSH 10 ML FLUSH IV FLUSH SCH (07:45)
[2018-01-02] MEDS: INSULIN ASPART SUPPLEMENTAL SCALE SQ SCH ×2 (07:45→13:23)
[2018-01-02 08:00] VITALS: BP 124/68; PULSE 86; RESP 20; TEMP 98.5; O2SAT 97
[2018-01-02] MEDS: FUROSEMIDE 20 MG TAB PO SCH (08:19)
[2018-01-02] MEDS: DOCUSATE SODIUM 50 MG/SENNA 8.6 MG TAB PO SCH (08:19)
[2018-01-02] MEDS: GABAPENTIN 400 MG CAP PO SCH ×2 (08:19→12:14)
[2018-01-02] MEDS: PANTOPRAZOLE SOD 40 MG DELAYED RELEASE TAB PO SCH (08:19)
[2018-01-02] MEDS: LIDOCAINE HCL 5% PATCH T-DERMAL SCH (08:20)
[2018-01-02] MEDS: COLLAGENASE OINT 30 GM TUBE TOPICAL SCH (08:20)
[2018-01-02] MEDS: INSULIN DETEMIR 100 UNITS/ML VIAL SQ SCH (08:20)
[2018-01-02] MEDS ORDERED: PHARMACY ORDERED LAB ONE (08:45)
[2018-01-02] MEDS: MORPHINE SULFATE 4 MG/ML INJ IV PUSH PRN (11:55)
[2018-01-02 12:00] VITALS: BP 141/74; PULSE 100; RESP 20; TEMP 98.3; O2SAT 96
--- NOTE | 2018-01-02 13:12 | HHI.PR ---
Subjective Remarks 15 RN denies any deteriorations since last night. Patient himself has noted that I have deescalated him from 2 narcotic medications down to 1 narcotic medication. Says that when he was participating with physical therapy sometime yesterday he felt a snapping-like sensation in his right lower extremity stump with some increased pain that went away. 12-31 WILL DW RN AND PT AND CASE MANAGEMENT WILL NEED SAFE PLACEMENT AT DC No new complaints on the right lower extremity Discussed with RN and patient CONTINUE ON IV ANTIBIOTICS PER ID VANCO AND CEFEPIME 01-01 HOPEFULLY TO HOME TOMORROW WITH FAMILY DW RN AND PT AND CM NO NEW COMPLAINTS DC HOME TOMORROW 01-02 PATIENT WANTS TO GO HOME DW RN AND PT AND CM DC TO HOME TODAY CLEARED BY ALL Objective Vitals Vital Signs Date Time Temp Pulse Resp B/P (MAP) Pulse Ox O2 Delivery O2 Flow Rate FiO2 01/02/18 12:00 98.3 100 20 141/74 (96) 96 01/02/18 11:21 Room Air 21 01/02/18 08:00 98.5 86 20 124/68 (86) 97 01/02/18 04:59 98.1 89 20 119/67 (84) 99 01/02/18 00:59 98.0 84 20 127/65 (85) 96 01/01/18 22:23 Room Air 01/01/18 20:51 99.1 91 20 108/59 (75) 98 01/01/18 16:00 98.1 93 18 129/62 (84) 96 I/O 01/01/18 01/01/18 01/01/18 01/02/18 01/02/18 01/02/18 07:00 15:00 23:00 07:00 15:00 23:00 Intake Total 1440 ml 700 ml 350 ml Output Total 1675 ml 1100 ml 1000 ml Balance -235 ml -400 ml -650 ml Intake Oral 1440 ml 700 ml 350 ml Output Urine Total 1675 ml 1100 ml 1000 ml # Bowel Movements 0 1 Result Diagram: 01/02/18 0501/02/18 05 Other Results Laboratory Tests Test 12/31/17 07:45 01/01/18 06:50 01/02/18 05:25 Creatinine 0.71 MG/DL 0.77 MG/DL 0.85 MG/DL Estimat Glomerular Filtration Rate 114 ML/MIN 103 ML/MIN 92 ML/MIN Vancomycin Level Trough 18.0 MCG/ML White Blood Count 6.2 TH/MM3 6.3 TH/MM3 Red Blood Count 3.13 MIL/MM3 3.36 MIL/MM3 Hemoglobin 7.6 GM/DL 8.1 GM/DL Hematocrit 23.0 % 24.8 % Mean Corpuscular Volume 73.6 FL 73.7 FL Mean Corpuscular Hemoglobin 24.2 PG 24.0 PG Mean Corpuscular Hemoglobin Concent 32.9 % 32.6 % Red Cell Distribution Width 17.8 % 18.5 % Platelet Count 410 TH/MM3 503 TH/MM3 Mean Platelet Volume 7.8 FL 7.8 FL Neutrophils (%) (Auto) 52.1 % 47.2 % Lymphocytes (%) (Auto) 25.4 % 30.6 % Monocytes (%) (Auto) 8.2 % 8.6 % Eosinophils (%) (Auto) 12.9 % 12.6 % Basophils (%) (Auto) 1.4 % 1.0 % Neutrophils # (Auto) 3.2 TH/MM3 3.0 TH/MM3 Lymphocytes # (Auto) 1.6 TH/MM3 1.9 TH/MM3 Monocytes # (Auto) 0.5 TH/MM3 0.5 TH/MM3 Eosinophils # (Auto) 0.8 TH/MM3 0.8 TH/MM3 Basophils # (Auto) 0.1 TH/MM3 0.1 TH/MM3 CBC Comment DIFF FINAL DIFF FINAL Differential Comment Blood Urea Nitrogen 22 MG/DL 25 MG/DL Random Glucose 108 MG/DL 106 MG/DL Total Protein 7.9 GM/DL 8.4 GM/DL Albumin 2.4 GM/DL 2.6 GM/DL Calcium Level 9.8 MG/DL 10.0 MG/DL Phosphorus Level 3.4 MG/DL 3.3 MG/DL Magnesium Level 1.9 MG/DL 2.1 MG/DL Alkaline Phosphatase 178 U/L 187 U/L Aspartate Amino Transf (AST/SGOT) 29 U/L 24 U/L Alanine Aminotransferase (ALT/SGPT) 25 U/L 26 U/L Total Bilirubin 0.2 MG/DL 0.2 MG/DL Sodium Level 137 MEQ/L 135 MEQ/L Potassium Level 4.3 MEQ/L 4.2 MEQ/L Chloride Level 99 MEQ/L 97 MEQ/L Carbon Dioxide Level 27.4 MEQ/L 29.6 MEQ/L Anion Gap 11 MEQ/L 8 MEQ/L Hemoglobin A1c 6.0 % Free Thyroxine 0.95 NG/DL Thyroid Stimulating Hormone 3rd Gen 1.450 uIU/ML Imaging Last Impressions Upper Extremity Ultrasound 12/30/17 0000 Signed Impressions: Service Date/Time: Saturday, December 30, 2017 09:52 - CONCLUSION: 1. No sonographic evidence for right upper extremity DVT. Lupillo Webster MD Lower Extremity Ultrasound 12/30/17 0000 Signed Impressions: Service Date/Time: Saturday, December 30, 2017 10:04 - CONCLUSION: Normal examination. Stewart Alberts MD Chest X-Ray 12/29/17 0000 Signed Impressions: Service Date/Time: Friday, December 29, 2017 20:30 - CONCLUSION: No acute disease. Wm Riley MD Foot MRI 12/21/17 0000 Signed Impressions: Service Date/Time: Thursday, December 21, 2017 16:13 - CONCLUSION: 1. Cutaneous ulceration at the lateral mid foot with adjacent severe fourth metatarsal base bony abnormality and cuboid bony abnormality indicating osteomyelitis in the proper clinical setting. 2. Severe, increased bony abnormality about the navicular cuneiform joints, talonavicular joint, and the second and third tarsometatarsal joints. Not immediately contiguous with the cutaneous ulceration. May represent osteomyelitis or worsening neuropathic osteoarthropathy. 3. New severe erosive arthropathy of the second and third metatarsophalangeal joints. Differential diagnosis includes infection/septic arthritis versus other inflammatory arthritis. Cyrus Sears MD Foot X-Ray 12/20/17 0000 Signed Impressions: Service Date/Time: Wednesday, December 20, 2017 17:18 - CONCLUSION: 1. Bone erosions at the second and third metatarsal heads as well as at the base of the third proximal phalanx. Findings are suspicious for osteomyelitis in the proper clinical setting. 2. Nonspecific findings about the tarsometatarsal joints and talonavicular joint. 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 Cyrus Sears MD Objective Remarks GENERAL: Awake alert and oriented 3 talkative and cooperative SKIN: Warm and dry. Right lower extremity is dressed with below the knee amputation on the right that is dressed HEAD: Atraumatic. Normocephalic. EYES: Pupils equal and round. No scleral icterus. No injection or drainage. Extraocular muscles intact ENT: No nasal bleeding or discharge. Mucous membranes pink and moist. Tongue is midline NECK: Trachea midline. No JVD. Supple S1-S2 no S3 or S4 CARDIOVASCULAR: Regular rate and rhythm. RESPIRATORY: No accessory muscle use. Clear to auscultation. Breath sounds equal bilaterally. GASTROINTESTINAL: Abdomen soft, non-tender, nondistended. Hepatic and splenic margins not palpable. MUSCULOSKELETAL: Extremities without clubbing, cyanosis, or edema. No obvious deformities. NEUROLOGICAL: Awake and alert. No obvious cranial nerve deficits. Motor grossly within normal limits. Five out of 5 muscle strength in the arms and legs. Normal speech. Right below the knee amputation dressed PSYCHIATRIC: Appropriate mood and affect; insight and judgment normal. Procedures 12/17/17 bone biopsy, right foot 5-9 right below the knee amputation by Dr. Dr. Sanchez Medications and IVs Current Medications Piperacillin Sod/ Tazobactam Sod 100 ml @ 200 mls/hr ONCE STAT IV Last administered on 12/15/17at 19:54; Start 12/15/17 at 19:21; Stop 12/15/17 at 19:50 ; Status DC Vancomycin HCl 1000 mg/Sodium Chloride 250 ml @ 250 mls/hr ONCE STAT IV Last administered on 12/15/17 20:48; Start 12/15/17 at 19:21; Stop 12/15/17 at 20:20 ; Status DC Sodium Chloride 1,000 ml @ 999 mls/hr BOLUS ONCE IV Last administered on 12/15at 20:58; Start 12/15/17 at 20:00; Stop 12/15/17 at 21:00; Status DC Ondansetron HCl (Zofran Inj) 4 mg ONCE ONCE IV PUSH Last administered on 20:48; Start 12/15/17 at 20:00; Stop 12/15/17 at 20:01; Status DC Morphine Sulfate (Morphine Inj) 2 mg ONCE ONCE IV PUSH Last administered on 20:50; Start 12/15/17 at 20:00; Stop 12/15/17 at 20:01; Status DC Pharmacy Profile Note 0 ml @ 0 mls/hr UNSCH OTHER ; Start 12/15/17 at 23:15; Stop 12/16/17 at 16:51; Status DC Vancomycin HCl 1000 mg/Sodium Chloride 250 ml @ 250 mls/hr Q12H IV ; Start 12/16 at 07:00; Stop 12/16/17 at 07:00; Status DC Piperacillin Sod/ Tazobactam Sod 50 ml @ 100 mls/hr Q6H IV Last administered on 12/16/17at 13:10; Start 12/16/17 at 02:00; Stop 12/16/17 at 16:51; Status DC Morphine Sulfate (Morphine Inj) 2 mg Q4H PRN IV PUSH BREAKTHROUGH PAIN Last administered on 12/25/17at 11:07; Start 12/15/17 at 23:15; Stop 12/25/17 at 11:33 ; Status DC Sodium Chloride 1,000 ml @ 80 mls/hr [id number] IV Last administered on 12/19/17at 02:34; Start 12/15/17 at 23:03; Stop 12/20/17 at 13:16; Status DC Sodium Chloride (NS Flush) 2 ml UNSCH PRN IV FLUSH FLUSH AFTER USING IV ACCESS ; Start 12/15/17 at 23:15 Sodium Chloride (NS Flush) 2 ml BID IV FLUSH Last administered on 01/02/18at 07: 45; Start 12/16/17 at 09:00 Acetaminophen (Tylenol) 650 mg Q4H PRN PO TEMP > 100.4; Start 12/15/17 at 23:15 Ondansetron HCl (Zofran Inj) 4 mg Q6H PRN IVP NAUSEA OR VOMITING; Start at 23:15 Naloxone HCl (Narcan Inj) 0.4 mg UNSCH PRN IV PUSH SEE LABEL COMMENTS; Start at 23:15 Senna/Docusate Sodium ([place]-Colace) 1 tab BID PO Last administered on at 08:19; Start 12/16/17 at 09:00 Magnesium Hydroxide (Milk Of Magnesia Liq) 30 ml Q12H PRN PO Mild constipation ; Start 12/15/17 at 23:15 Sennosides (Senokot) 17.2 mg Q12H PRN PO Moderate constipation; Start 12/15/17 at 23:15 Bisacodyl (Dulcolax Supp) 10 mg DAILY PRN RECTAL SEVERE CONSITIPATION/ IF NPO ; Start 12/15/17 at 23:15 Lactulose (Lactulose Liq) 30 ml DAILY PRN PO SEVERE CONSITIPATION/ IF PO; Start 12/15/17 at 23:15 Dextrose (D50w (Vial) Inj) 50 ml UNSCH PRN IV PUSH HYPOGLYCEMIA-SEE COMMENTS; Start 12/15/17 at 23:15 Glucagon (Glucagon Inj) 1 mg UNSCH PRN OTHER HYPOGLYCEMIA-SEE COMMENTS; Start 12/15/17 at 23:15 Insulin Aspart (NovoLOG SUPPLEMENTAL SCALE) 1 ACHS SLIDING SCALE SQ Last administered on 01/01/18at 12:39; Start 12/16/17 at 08:00 Fluconazole (Diflucan) 100 mg DAILY PO Last administered on 12/16/17at 08:35; Start 12/16/17 at 09:00; Stop 12/16/17 at 16:51; Status DC Furosemide (Lasix) 20 mg DAILY PO Last administered on 01/02/18at 08:19; Start 12/16/17 at 09:00 Gabapentin (Neurontin) 600 mg TID PO Last administered on 12/30/17at 11:57; Start 12/16/17 at 09:00; Stop 12/30/17 at 13:00; Status DC Pantoprazole Sodium (Protonix) 40 mg DAILY PO Last administered on 01/02/18at 08 :19; Start 12/16/17 at 09:00 Vancomycin HCl 1000 mg/Sodium Chloride 250 ml @ 250 mls/hr Q12H IV Last administered on 12/16/17at 13:10; Start 12/16/17 at 14:00; Stop 12/16/17 at 16:51; Status DC Miscellaneous Information ([facility] [place] [facility] Ordered Lab Info) SPECIFIC LAB TO BE LUCERO... ONCE ONCE .XX ; Start 12/18/17 at 01:45; Stop 12/18/17 at 01:45; Status DC Collagenase (Santyl Oint) 1 applic DAILY TOPICAL Last administered on at 08:20; Start 12/18/17 at 09:00 Insulin Detemir (Levemir Inj) 10 units BID SQ Last administered on 01/02/18at 08 :20; Start 12/18/17 at 21:00 Oxycodone/ Acetaminophen (Percocet 5-325 Mg) 1 tab Q4H PRN PO PAIN SCALE 4 TO 10 Last administered on 12/28/17at 08:44; Start 12/20/17 at 13:15; Stop 12/28/17 at 10:47; Status DC Fluconazole/ Sodium Chloride 400 ml @ 100 mls/hr Q24H IV ; Start 12/20/17 at 22: 00; Stop 12/20/17 at 22:00; Status DC Cefazolin Sodium/ Dextrose 50 ml @ 100 mls/hr Q8H IV Last administered on 12/28at 15:15; Start 12/20/17 at 22:00; Stop 12/28/17 at 20:55; Status DC Fluconazole/ Sodium Chloride 400 ml @ 100 mls/hr Q24H IV Last administered on 12/25/17at 22:01; Start 12/20/17 at 23:00; Stop 12/25/17 at 22:57; Status DC Lactated Ringer's 1,000 ml @ 30 mls/hr Q24H PRN IV SEE LABEL COMMENTS; Start at 02:00; Stop 12/27/17 at 01:59; Status DC Sodium Chloride 500 ml @ 30 mls/hr [id number] PRN IV SEE LABEL COMMENTS; Start 12/24/17 at 02:00; Stop 12/27/17 at 01:59; Status DC Povidone Iodine (Betadine 5% Antisepsis Kit) 1 applic SPREADER OPER[employer]ATIC PRN EACH NARE SEE LABEL COMMENTS; Start 12/24/17 at 02:00; Stop 12/27/17 at 01:59; Status DC Chlorhexidine Gluconate (Chlorhexidine 2% Cloth) 3 pack [employer] PRN TOPICAL SEE LABEL COMMENTS; Start 12/24/17 at 02:00; Stop 12/27/17 at 01:59; Status DC Acetaminophen 100 ml @ As Directed STK-MED ONCE IV ; Start 12/24/17 at 15:25; Stop 12/24/17 at 15:26; Status DC Midazolam HCl (Versed Inj) 2 mg STK-MED ONCE .ROUTE ; Start 12/24/17 at 16:21; Stop 12/24/17 at 16:22; Status DC Fentanyl Citrate (fentaNYL INJ) 100 mcg STK-MED ONCE .ROUTE ; Start 12/24/17 at 16:22; Stop 12/24/17 at 16:23; Status DC Fentanyl Citrate (fentaNYL INJ) 100 mcg STK-MED ONCE .ROUTE ; Start 12/24/17 at 16:22; Stop 12/24/17 at 16:23; Status DC Meperidine HCl (Demerol Inj) 25 mg STK-MED ONCE .ROUTE Last administered on 12/24at 16:25; Start 12/24/17 at 16:25; Stop 12/24/17 at 16:26; Status DC Morphine Sulfate (*morphine INJ PERIprocedure ONLY) 10 mg STK-MED ONCE .ROUTE Last administered on 12/24/17at 16:41; Start 12/24/17 at 16:41; Stop 12/24/17 at 16: 42; Status DC Miscellaneous Information ([facility] [place] Nursing Information) ALL NURSING DEPARTME... UNSCH PRN .XX SEE LABEL COMMENTS; Start 12/24/17 at 16:16; Stop 12/25/17 at 16: 15; Status DC Morphine Sulfate (Morphine Inj) 4 mg Q4HR PRN IV PUSH breakthru pain Last administered on 12/28/17at 10:30; Start 12/25/17 at 12:00; Stop 12/28/17 at 10:47 ; Status DC Fluconazole/ Sodium Chloride 200 ml @ 100 mls/hr Q24H IV Last administered on 12/28/17at 23:12; Start 12/26/17 at 23:00; Stop 12/29/17 at 16:01; Status DC Fluconazole/ Sodium Chloride 200 ml @ 100 mls/hr Q24H IV Last administered on 12/29/17at 00:47; Start 12/26/17 at 00:00; Stop 12/29/17 at 16:01; Status DC Lactated Ringer's 1,000 ml @ As Directed STK-MED ONCE IV ; Start 12/24/17 at 12: 00; Stop 12/26/17 at 11:26; Status DC Lidocaine HCl (Xylocaine-Mpf 1% Inj) 5 ml STK-MED ONCE OTHER ; Start 12/24/17 at 12:00; Stop 12/26/17 at 11:26; Status DC Rocuronium [place] (Zemuron Inj) 50 mg STK-MED ONCE IV PUSH ; Start 12/24/17 at 12:00; Stop 12/26/17 at 11:26; Status DC Neostigmine Methylsulfate (Prostigmine Inj) 5 mg STK-MED ONCE IV PUSH ; Start at 12:00; Stop 12/26/17 at 11:26; Status DC Glycopyrrolate (Robinul Inj) 1 mg STK-MED ONCE IV PUSH ; Start 12/24/17 at 12:00 ; Stop 12/26/17 at 11:26; Status DC Phenylephrine HCl (Neosynephrine/ NS 1000 Mcg/10ml Syr) 1,000 mcg STK-MED ONCE IV ; Start 12/24/17 at 12:00; Stop 12/26/17 at 11:26; Status DC Ephedrine Sulfate (ePHEDrine/NS 25 MG/5 ML SYR) 25 mg STK-MED ONCE IV ; Start at 12:00; Stop 12/26/17 at 11:26; Status DC Dexamethasone Sodium Phosphate (Decadron Inj) 4 mg STK-MED ONCE IV ; Start at 12:00; Stop 12/26/17 at 11:26; Status DC Ondansetron HCl (Zofran Inj) 4 mg STK-MED ONCE IV PUSH ; Start 12/24/17 at 12:00 ; Stop 12/26/17 at 11:26; Status DC Propofol (Diprivan 200 Mg/20 ml Inj) 200 mg STK-MED ONCE IV ; Start 12/24/17 at 12:00; Stop 12/26/17 at 11:26; Status DC Oxycodone/ Acetaminophen (Percocet 7.5-325 Mg) 1 tab Q6H PRN PO pain Last administered on 12/29/17at 07:32; Start 12/28/17 at 10:45; Stop 12/29/17 at 11:46 ; Status DC Morphine Sulfate (Morphine Inj) 4 mg Q4H PRN IV PUSH dressing chge/BREAKTHRU PAIN Last administered on 12/29/17at 10:21; Start 12/28/17 at 11:15; Stop at 11:38; Status DC Lidocaine HCl (Lidoderm 5% Patch.12 Hr) 1 patch DAILY T-DERMAL Last administered on 01/02/18at 08:20; Start 12/28/17 at 12:00 Cefazolin Sodium 2000 mg/Sodium Chloride 100 ml @ 200 mls/hr Q8H IV Last administered on 12/29/17at 12:19; Start 12/28/17 at 22:00; Stop 12/29/17 at 16:01 ; Status DC Morphine Sulfate (Msir) 15 mg Q4H PRN PO pain Last administered on 01/02/18at 12 :22; Start 12/29/17 at 12:00 Morphine Sulfate (Morphine Inj) 4 mg DAILY PRN IV PUSH dressing change Last administered on 01/02/18at 11:55; Start 12/29/17 at 13:00 Sodium Chloride 1,000 ml @ 999 mls/hr BOLUS ONCE IV Last administered on 12/29at 21:36; Start 12/29/17 at 19:15; Stop 12/29/17 at 20:15; Status DC Pharmacy Profile Note 0 ml @ 0 mls/hr UNSCH OTHER ; Start 12/29/17 at 19:15; Stop 12/31/17 at 15:24; Status DC Cefepime HCl 2000 mg/Sodium Chloride 100 ml @ 200 mls/hr Q8H IV Last administered on 12/31/17at 12:37; Start 12/29/17 at 20:00; Stop 12/31/17 at 15:24 ; Status DC Vancomycin HCl 1000 mg/Sodium Chloride 250 ml @ 250 mls/hr Q12H IV Last administered on 12/31/17at 09:04; Start 12/29/17 at 21:00; Stop 12/31/17 at 15:24 ; Status DC Miscellaneous Information ([facility] [place] [facility] Ordered Lab Info) SPECIFIC LAB TO BE DRAWN:VA... ONCE ONCE .XX Last administered on 12/31/17at 08:45; Start at 08:45; Stop 12/31/17 at 08:46; Status DC Gabapentin (Neurontin) 800 mg TID PO Last administered on 01/02/18at 12:14; Start 12/30/17 at 13:00 Enoxaparin Sodium (Lovenox Inj) 30 mg Q12H SQ Last administered on 01/01/18at 17 :03; Start 12/30/17 at 18:00 Miscellaneous Information ([facility] [place] [facility] Ordered Lab Info) SPECIFIC LAB TO BE DRAWN:VANCOMYCIN TROUGH DATE TO... ONCE ONCE .XX ; Start 01/02/18 at 08:45; Stop 01/02/18 at 08:46; Status Cancel A/P Assessment and Plan New onset sepsis -blood cultures were drawn yesterday, lactic acid is within normal limits, chest x-ray which I independently reviewed is negative for any obvious acute infiltrates. 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 Stop by infectious disease again - Lipitor Right leg pain -We will increase gabapentin from 600-800 mg 3 times daily Diabetes mellitus - Continue Levemir. Continue sliding scale insulin coverage. Anemia: - S/P GI workup during last hospitalization (showed gastritis, hemorrhoids). H& H stable. Continue PPI. DVT prophylaxis: starting lovenox DC TO HOME TODAY Discharge Planning DC TO HOME TODAY Tu Galvez DO January 02, 2018 13:12
[2018-01-02] MEDS ORDERED: COLL30T TOPICAL (13:17)
[2018-01-02] MEDS ORDERED: NEUR400C PO (13:17)
[2018-01-02] MEDS ORDERED: PANT40TA3 PO (13:17)
[2018-01-02] MEDS ORDERED: MSIR15 PO (13:17)
[2018-01-02] MEDS ORDERED: NOVOLOGP2 SQ (13:17)
[2018-01-02] MEDS ORDERED: FURO20TA PO (13:17)
[2018-01-02] MEDS ORDERED: SENN187 PO (13:17)
[2018-01-02] MEDS ORDERED: INSU1INJ18 SQ (13:17)
[2018-01-02] MEDS ORDERED: LIDO1ADH4 T-DERMAL (13:17)
[2018-01-02] MEDS ORDERED: INSU1MIS SQ (13:25)
[2018-01-02] MEDS ORDERED: LANCETS1 MI1 (13:25)
--- NOTE | 2018-01-02 13:27 | HHI.DS ---
Discharge Summary Admission Date Dec 15, 2017 at 21:24 Discharge Date: January 02, 2018 Admitting Diagnosis Right foot osteomyelitis (1) Osteomyelitis of foot ICD Code: M86.9 - Osteomyelitis, unspecified Diagnosis: Principal (2) Diabetic foot ulcer associated with type 2 diabetes mellitus, with fat layer exposed ICD Code: E11.621 - Type 2 diabetes mellitus with foot ulcer; L97.502 - Non- pressure chronic ulcer of other part of unspecified foot with fat layer exposed Diagnosis: Principal (3) Postoperative anemia ICD Code: D64.9 - Anemia, unspecified Diagnosis: Secondary (4) Acute renal failure superimposed on stage 3 chronic kidney disease ICD Code: N17.9 - Acute kidney failure, unspecified; N18.3 - Chronic kidney disease, stage 3 (moderate) Diagnosis: Secondary (5) Bacteremia due to Gram-positive bacteria ICD Code: R78.81 - Bacteremia Diagnosis: Principal (6) Non-healing ulcer of right foot ICD Code: L97.519 - Non-pressure chronic ulcer of other part of right foot with unspecified severity Diagnosis: Principal (7) Normocytic anemia ICD Code: D64.9 - Anemia, unspecified Diagnosis: Secondary (8) Toxic metabolic encephalopathy ICD Code: G92 - Toxic encephalopathy Diagnosis: Principal Procedures 12/17/17 bone biopsy, right foot 5-9 right below the knee amputation by Dr. Dr. Sanchez Brief History - From Admission 57-year-old male with a past medical history significant for diabetes mellitus presents to the emergency department from his print operator's office for the evaluation of her nonhealing osteomyelitis. The patient has a history of osteomyelitis with staph aureus sepsis and wound culture growing Kimberly. Patient completed a course of Cubicin with a stop date of 12/08/17 and is currently taking Diflucan for the Kimberly. He was seen in his print operator's office earlier today. His print operator, Dr. Aguayo, was concerned about osteomyelitis and sent him to the emergency department for IV antibiotics and further evaluation. The patient endorses subjective fevers/chills. He states he has a wound on his heel with exposed bone that has minimal amounts of draining when he is active. He denies any chest pain or shortness of breath. No abdominal pain. No nausea/vomiting/diarrhea. No fatigue/weakness. No lateralizing signs/symptoms. CBC/BMP: 01/02/18 0525 01/02/18 0525 Significant Findings Laboratory Tests Test 12/31/17 07:45 01/01/18 06:50 01/02/18 05:25 Vancomycin Level Trough 18.0 MCG/ML (5.0-10.0) Red Blood Count 3.13 MIL/MM3 (4.50-5.90) 3.36 MIL/MM3 (4.50-5.90) Hemoglobin 7.6 GM/DL (13.0-17.0) 8.1 GM/DL (13.0-17.0) Hematocrit 23.0 % (39.0-51.0) 24.8 % (39.0-51.0) Mean Corpuscular Volume 73.6 FL (80.0-100.0) 73.7 FL (80.0-100.0) Mean Corpuscular Hemoglobin 24.2 PG (27.0-34.0) 24.0 PG (27.0-34.0) Red Cell Distribution Width 17.8 % (11.6-17.2) 18.5 % (11.6-17.2) Monocytes (%) (Auto) 8.2 % (0.0-8.0) 8.6 % (0.0-8.0) Eosinophils (%) (Auto) 12.9 % (0.0-4.0) 12.6 % (0.0-4.0) Eosinophils # (Auto) 0.8 TH/MM3 (0-0.4) 0.8 TH/MM3 (0-0.4) Blood Urea Nitrogen 22 MG/DL (7-18) 25 MG/DL (7-18) Random Glucose 108 MG/DL (74-106) Albumin 2.4 GM/DL (3.4-5.0) 2.6 GM/DL (3.4-5.0) Alkaline Phosphatase 178 U/L (45-117) 187 U/L (45-117) Platelet Count 503 TH/MM3 (150-450) Total Protein 8.4 GM/DL (6.4-8.2) Sodium Level 135 MEQ/L (136-145) Chloride Level 97 MEQ/L (98-107) Imaging Last Impressions Upper Extremity Ultrasound 12/30/17 Signed Impressions: Service Date/Time: Saturday, December 30, 2017 09:52 - CONCLUSION: 1. No sonographic evidence for right upper extremity DVT. Lupillo Webster MD Lower Extremity Ultrasound 12/30/17 0000 Signed Impressions: Service Date/Time: Saturday, December 30, 2017 10:04 - CONCLUSION: Normal examination. Stewart Alberts MD Chest X-Ray 12/29/17 Signed Impressions: Service Date/Time: Friday, December 29, 2017 20:30 - CONCLUSION: No acute disease. Wm Riley MD Foot MRI 12/21/17 Signed Impressions: Service Date/Time: Thursday, December 21, 2017 16:13 - CONCLUSION: 1. Cutaneous ulceration at the lateral mid foot with adjacent severe fourth metatarsal base bony abnormality and cuboid bony abnormality indicating osteomyelitis in the proper clinical setting. 2. Severe, increased bony abnormality about the navicular cuneiform joints, talonavicular joint, and the second and third tarsometatarsal joints. Not immediately contiguous with the cutaneous ulceration. May represent osteomyelitis or worsening neuropathic osteoarthropathy. 3. New severe erosive arthropathy of the second and third metatarsophalangeal joints. Differential diagnosis includes infection/septic arthritis versus other inflammatory arthritis. Cyrus Sears MD Foot X-Ray 12/20/17 Signed Impressions: Service Date/Time: Wednesday, December 20, 2017 17:18 - CONCLUSION: 1. Bone erosions at the second and third metatarsal heads as well as at the base of the third proximal phalanx. Findings are suspicious for osteomyelitis in the proper clinical setting. 2. Nonspecific findings about the tarsometatarsal joints and talonavicular joint. 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 Cyrus Sears MD PE at Discharge GENERAL: Awake alert and oriented 3 talkative and cooperative SKIN: Warm and dry. Right lower extremity is dressed with below the knee amputation on the right that is dressed HEAD: Atraumatic. Normocephalic. EYES: Pupils equal and round. No scleral icterus. No injection or drainage. Extraocular muscles intact ENT: No nasal bleeding or discharge. Mucous membranes pink and moist. Tongue is midline NECK: Trachea midline. No JVD. Supple S1-S2 no S3 or S4 CARDIOVASCULAR: Regular rate and rhythm. RESPIRATORY: No accessory muscle use. Clear to auscultation. Breath sounds equal bilaterally. GASTROINTESTINAL: Abdomen soft, non-tender, nondistended. Hepatic and splenic margins not palpable. MUSCULOSKELETAL: Extremities without clubbing, cyanosis, or edema. No obvious deformities. NEUROLOGICAL: Awake and alert. No obvious cranial nerve deficits. Motor grossly within normal limits. Five out of 5 muscle strength in the arms and legs. Normal speech. Right below the knee amputation dressed PSYCHIATRIC: Appropriate mood and affect; insight and judgment normal. Hospital Course 57-year-old male with a past medical history significant for diabetes mellitus presents to the emergency department from his print operator's office for the evaluation of her nonhealing osteomyelitis. The patient has a history of osteomyelitis with staph aureus sepsis and wound culture growing Kimberly. Patient completed a course of Cubicin with a stop date of 12/08/17 and is currently taking Diflucan for the Kimberly. He was seen in his print operator's office earlier today. His print operator, Dr. Aguayo, was concerned about osteomyelitis and sent him to the emergency department for IV antibiotics and further evaluation. The patient endorses subjective fevers/chills. He states he has a wound on his heel with exposed bone that has minimal amounts of draining when he is active. He denies any chest pain or shortness of breath. No abdominal pain. No nausea/vomiting/diarrhea. No fatigue/weakness. No lateralizing signs/symptoms. 5-15 RN denies any deteriorations since last night. Patient himself has noted that I have deescalated him from 2 narcotic medications down to 1 narcotic medication. Says that when he was participating with physical therapy sometime yesterday he felt a snapping-like sensation in his right lower extremity stump with some increased pain that went away. 5-16 WILL JERMA[facility] RN AND PT AND CASE MANAGEMENT WILL NEED SAFE PLACEMENT AT DC No new complaints on the right lower extremity Discussed with RN and patient CONTINUE ON IV ANTIBIOTICS PER ID VANCO AND CEFEPIME 5-17 HOPEFULLY TO HOME TOMORROW WITH FAMILY [facility]ERMA[facility] RN AND PT AND CM NO NEW COMPLAINTS DC HOME TOMORROW 5-18 PATIENT WANTS TO GO HOME JERMAINE RN AND PT AND CM DC TO HOME TODAY CLEARED BY ALL PATIENT HAD SURGERY ON RIGHT BKA CLEARED BY SURGERY CLEARED BY ID DC TO HOME TODAY Pt Condition on Discharge: Fair Discharge Disposition: Discharge Home Discharge Time: > 30 minutes Discharge Instructions DIET: Follow Instructions for: Heart Healthy Diet, Diabetic Diet Speech Therapy-Diet Recommends: Regular Activities you can perform: Shower Only-No Bath Follow up Referrals: PCP Follow-up - 1 Week Surgical - 3-5 Days with Kenzie Sanchez MD [facility] - 3-5 Days with [facility] New Medications: Lancets (Lancets) 1 Mis Mis EA .XX DIRECTED for Blood Sugar Management, #1 0 Refills Syringe and Needle,Insulin,1Ml (Insulin Syringe) 1 Each Disp.syrin BOX SQ ACHS SLIDING SCALE PRN for DIABETES, #1 Collagenase (Santyl) 250 Unit/Gram Oin 1 APPLIC TOPICAL DAILY for WOUND CARE, #1 TUBE Gabapentin (Neurontin) 400 Mg Cap 800 MG PO TID for Pain Management, #180 CAP Lidocaine (Lidoderm) 5 % Adh..patch 1 PATCH T-DERMAL DAILY for Pain Management MDD 1, #30 PATCH Sennosides (Senna-Lax) 8.6 Mg Tab 17.2 MG PO Q12H PRN for Moderate constipation, #120 TAB Continued Medications: Furosemide (Furosemide) 20 Mg Tab 20 MG PO DAILY for diuretic, #30 TAB 0 Refills (This prescription has been renewed) Insulin Aspart Inj (Novolog Inj) 1,000 Unit/10 Ml Vial 1-9 UNITS SQ ACHS for Blood Sugar Management for 30 Days, #10 ML 3 Refills ( This prescription has been renewed) sugars less than 70,(0)units; sugars 150-199,(1) unit; sugars 200-249,(3) units; sugars 250-299,(5) units; sugars 300-349,(7) units; sugars greater than 349,(9) units Insulin Glargine (Basaglar Kwikpen) 100 Unit/Ml Pen 10 UNITS SQ BID for Blood Sugar Management, #5 PEN 0 Refills (This prescription has been renewed) Oxycodone HCl/Acetaminophen (Oxycodone-Acetaminophen 5-325) 5 Mg-325 Mg Tablet 1 TAB PO Q6H PRN for PAIN, #20 TAB 0 Refills do not take this medicine if you will drive a car or use a machine, only use it when resting at home. Pantoprazole (Pantoprazole) 40 Mg Tab 40 MG PO DAILY for GERD, #30 TAB 0 Refills (This prescription has been renewed) Discontinued Medications: Fluconazole (Diflucan) 100 Mg Tab 100 MG PO DAILY for Infection for 14 Days, #14 TAB 0 Refills Gabapentin (Gabapentin) 600 Mg Tab 600 MG PO TID, #90 TAB 3 Refills Tu Galvez DO January 02, 2018 13:27
== END 2018-01-02 17:13 | disposition home or self-care (01) | DRG 617 ==
LOC: NEPC 18:13 → NEDA 21:24 → N04B 22:26
PROVIDERS: ADMIT Hospitalist; ATTEND Hospitalist
PROC: 0QBL3ZX Excision of Right Tarsal, Percutaneous Approach, Diagnostic (ICD-10-PCS; 2017-12-17)
PROC: 0Y6H0Z1 Detachment at Right Lower Leg, High, Open Approach (ICD-10-PCS; principal; 2017-12-24 14:44)
DX: E11.69 Type 2 diabetes mellitus with other specified complication (principal); M86.161 Other acute osteomyelitis, right tibia and fibula; G92 Toxic encephalopathy; E11.22 Type 2 diabetes mellitus with diabetic chronic kidney disease; N18.3 Chronic kidney disease, stage 3 (moderate); M86.671 Other chronic osteomyelitis, right ankle and foot; E11.621 Type 2 diabetes mellitus with foot ulcer; Z87.442 Personal history of urinary calculi; L97.514 Non-pressure chronic ulcer of other part of right foot with necrosis of bone; R50.2 Drug induced fever; T36.1X5A Adverse effect of cephalosporins and other beta-lactam antibiotics, initial encounter; T36.0X5A Adverse effect of penicillins, initial encounter; Y92.239 Unspecified place in hospital as the place of occurrence of the external cause; D64.9 Anemia, unspecified; Z91.81 History of falling; Z59.0 Homelessness; B96.89 Other specified bacterial agents as the cause of diseases classified elsewhere; Z79.4 Long term (current) use of insulin
CPT/HCPCS: 71046; 73630; 73718; 76937; 80048; 80053; 80076; 80202; 81001; 82565; 82948; 83036; 83605; 83735; 84100; 84439; 84443; 85025; 85610; 85652; 85730; 86140; 86850; 86900; 86901; 87040; 87070; 87102; 87205; 87206; 88307; 88311; 93005; 93970; 93971; 94150; 96365; 96367; 96375; J0131; J0690; J0692; J1100; J1450; J1650; J1815; J2175; J2250; J2270; J2370; J2405; J2543; J2710; J3010; J3370; J7030; J7050; J7120